=== PATIENT | male | born 1940 | race Hispanic/Latino ===

== ENCOUNTER 2017-12-14 18:08 | Inpatient (IN) | payer OTHER ==
[2017-12-14 20:21] LABS: Absolute Lymphocytes (CBC) 0.9 K/uL (0.7-4.9); Absolute Monocytes 0.6 K/uL (0.1-1.3); Basophils % 0.5 % (0-1.3); Eosinophils % 1.4 % (0-4.4); Hematocrit 28.5 % (39.6-49.0); Lymphocytes % 11.4 % (15.3-44.8); MCH 32.2 pg (27.0-35.0); MCV 94.4 fL (80-100); MPV 9.8 fL (7.6-11.3); Monocytes % 7.3 % (3.3-12.3); RBC Red Blood Cell Count 3.02 M/uL (4.33-5.43)
--- NOTE | 2017-12-14 20:25 | RAD REPORT ---
EXAM DESCRIPTION: RAD - Chest Single View - 12/14/2017 8:18 pm CLINICAL HISTORY: Shortness of breath. COMPARISON: 07/17/2017 FINDINGS: Portable technique limits examination quality. Mild interstitial pulmonary edema is seen. Small left pleural effusion is seen. The heart is mildly e nlarged with sternotomy wires present. No displaced fractures. IMPRESSION: Mild CHF.
[2017-12-14 20:31] LABS: Potassium 4.5 mEq/L (3.6-5.0)
[2017-12-14 20:37] LABS: Albumin 3.5 g/dL (3.2-5.5); Bilirubin Direct 0.1 mg/dL (0-0.2); Bilirubin Total 0.4 mg/dL (0.3-1.2); Protein, Total 7.3 g/dL (6.0-8.3)
[2017-12-14 20:38] LABS: Protime INR 1.08
--- NOTE | 2017-12-14 20:47 | ER ---
Nurse's Notes [facility] Name: Blaise Quarles Age: 77 yrs Sex: Male : 1940 Arrival Date: 12/14/2017 Time: 18:11 Bed 5 Private MD: out of town, doctor Diagnosis: Chronic diastolic (congestive) heart failure;Pleural effusion, not elsewhere classified Presentation: 12/14 18:18 Presenting complaint: Patient states: LUQ pain and left-sided chest pain that began 1 aa5 week ago. Pt also reports SOB. Pt states "last time I had this they found fluid in my lungs and they had to drain it". Transition of care: patient was not received from another setting of care. Onset of symptoms was December 2017. Risk Assessment: Do you want to hurt yourself or someone else? Patient reports no desire to harm self or others. Initial Sepsis Screen: Does the patient meet any 2 criteria? No. Patient's initial sepsis screen is negative. Does the patient have a suspected source of infection? No. Patient's initial sepsis screen is negative. Care prior to arrival: None. 18:18 Method Of Arrival: Wheelchair aa5 18:18 Acuity: SARATH 3 aa5 Historical: - Allergies: 18:18 No Known Allergies; aa5 - Home Meds: 21:09 amlodipine 10 mg tab 1 tab once daily [Active]; aspirin 81 mg Oral TbEC 1 tab once lp1 daily [Active]; atorvastatin 40 mg Oral tab 1 tab once daily [Active]; glipizide 10 mg Oral tab [Active]; Levemir 100 unit/mL subcutaneous soln [Active]; metoprolol tartrate 25 mg Oral tab 1 tab 2 times per day [Active]; tramadol 50 mg Oral tab [Active]; - PMHx: 18:18 Anemia; CAD; chronic renal disease; Diabetes - IDDM; Hypertension; Myocardial aa5 infarction; pulmonary nodule; - PSHx: 18:18 Triple Bypass; aa5 - Immunization history:: Adult Immunizations unknown. - Social history:: Smoking status: Patient/guardian denies using tobacco. - Ebola Screening: : No symptoms or risks identified at this time. Screenin:43 Abuse screen: Denies threats or abuse. Denies injuries from another. Nutritional lp1 screening: No deficits noted. Tuberculosis screening: No symptoms or risk factors identified. Fall Risk Total Parson Fall Scale indicates High Risk Score (45 or more points). Fall prevention measures have been instituted. Side Rails Up X 2 Family Present and informed to notify staff if the need to leave the bedside As available patient and family educated on Fall Prevention Program and Strategies. Assessment: 19:40 General: Appears uncomfortable, Behavior is appropriate for age. Pain: Complains of lp1 pain in chest and abdomen Pain currently is 6 out of 10 on a pain scale. Quality of pain is described as pressure. Neuro: Level of Consciousness is awake, alert, obeys commands, Oriented to person, place, situation. Cardiovascular: Reports chest pain, shortness of breath, Patient's skin is warm and dry. Edema pitting to left ankle, left foot, left toes, right ankle, right foot and right toes Rhythm is irregular. Respiratory: Reports shortness of breath When laying flat Airway is patent Trachea midline Respiratory effort is even, Respiratory pattern is regular, Breath sounds are diminished bilaterally. Onset: The symptoms/episode began/occurred gradually, the patient has moderate shortness of breath. GI: Abdomen is distended, Bowel sounds present X 4 quads. Abdomen is tender to palpation X 4 quads. Reports bloating. : No signs and/or symptoms were reported regarding the genitourinary system. EENT: No signs and/or symptoms were reported regarding the EENT system. Derm: Skin is fragile, is thin, Skin is dry, Skin is pink, warm \\T\\ dry. Musculoskeletal: Circulation, motion, and sensation intact. 20:45 Reassessment: Patient appears in no apparent distress at this time. Patient and/or lp1 family updated on plan of care and expected duration. Pain level reassessed. Patient is alert, oriented x 3, equal unlabored respirations, skin warm/dry/pink. Family at bedside, aware of pending admission; Dr. Vasquez at bedside to discuss results. 21:30 Reassessment: Patient appears in no apparent distress at this time. No changes from lp1 previously documented assessment. Patient and/or family updated on plan of care and expected duration. Pain level reassessed. 22:30 Reassessment: Patient states frustration at this time, states would like to go home; lp1 Patient educated on going home against medical advice, informed of plan for CT scan of abdomen; patient states okay. 23:30 Reassessment: Patient appears in no apparent distress at this time. Patient and/or lp1 family updated on plan of care and expected duration. Pain level reassessed. Patient resting, eyes closed, respirations unlabored. 12/15 00:45 Reassessment: Patient states begin hungry, requesting something to eat; Patient lp1 informed of waiting on CT results prior to giving anything PO. 01:30 Reassessment: Patient appears in no apparent distress at this time. Patient and/or lp1 family updated on plan of care and expected duration. Pain level reassessed. Patient updated on POC, and results from CT per Dr. Vasquez. Vital Signs: 12/14 18:19 BP 161 / 78; Pulse 66; Resp 18 S; Temp 98.2(TE); Pulse Ox 97% on R/A; Pain 10/10; aa5 19:45 BP 175 / 76; Pulse 93; Resp 22; Pulse Ox 97% on R/A; lp1 20:00 BP 179 / 76; Pulse 93; Resp 20; Pulse Ox 94% on R/A; lp1 20:30 BP 184 / 72; Pulse 94; Resp 22; Pulse Ox 97% on R/A; lp1 21:00 BP 187 / 75; Pulse 91; Resp 21; Pulse Ox 96% on R/A; lp1 21:30 BP 188 / 80; Pulse 92; Resp 22; Pulse Ox 96% on R/A; lp1 22:47 BP 156 / 70; Pulse 86; Resp 16; Pulse Ox 94% on R/A; lp1 12/15 00:00 BP 154 / 71; Pulse 77; Resp 15; Pulse Ox 93% on R/A; lp1 00:30 BP 172 / 67; Pulse 92; Resp 19; Pulse Ox 93% on R/A; lp1 01:30 BP 155 / 87; Pulse 74; Resp 16; Temp 99.7(O); Pulse Ox 95% on R/A; lp1 ED Course: 12/14 18:11 Patient arrived in ED. mr 18:11 out of town, doctor is Private Physician. mr 18:18 Arm band placed on. aa5 18:19 Triage completed. aa5 18:25 EKG completed in triage. Results shown to MD. aa5 19:20 Gilbert Vasquez MD is Attending Physician. tw4 19:33 Inserted saline lock: 20 gauge in right forearm, using aseptic technique. Blood lp1 collected. 19:40 Patt Castellano RN is Primary Nurse. lp1 19:43 Patient has correct armband on for positive identification. Placed in gown. Bed in low lp1 position. Call light in reach. teletypesetter monitor on. Pulse ox on. NIBP on. 20:17 X-ray completed. Portable x-ray completed in exam room. Patient tolerated procedure kc2 well. 20:18 XRAY Chest (1 view) In Process Unspecified. EDMS 20:47 Ankur Espinoza MD is Hospitalizing Provider. tw4 21:13 No provider procedures requiring assistance completed. Patient admitted, IV remains in lp1 place. 22:[address] cw1 22:41 CT completed. Patient tolerated procedure well. Patient moved back from CT. nj Administered Medications: 21:07 Drug: Lasix 40 mg Route: IVP; Site: right forearm; lp1 22:43 Follow up: Urine output 250 ml; Response: No adverse reaction lp1 22:30 Drug: Zofran 4 mg Route: IVP; Site: right forearm; lp1 23:30 Follow up: Response: No adverse reaction lp1 22:30 Drug: morphine 2 mg Route: IVP; Site: right forearm; lp1 23:30 Follow up: Response: Pain is decreased lp1 0605 01:10 Drug: Zosyn 2.25 grams Route: IVPB; Infused Over: 60 mins; Site: right forearm; lp1 01:52 Follow up: IV Status: Completed infusion lp1 01:25 Drug: Flagyl 500 mg Volume: 100 ml; Route: IVPB; Rate: 200 ml/hr; Infused Over: 30 lp1 mins; Site: right forearm; 01:52 Follow up: IV Status: Infusion continued upon admission lp1 01:35 Drug: D50W 50 ml Route: IVP; Site: right forearm; lp1 01:52 Follow up: Response: Blood sugar is elevated lp1 Point of Care Testing: Blood Glucose: 01:26 Blood Glucose: 59 mg/dL; lp1 01:51 Blood Glucose: 202 mg/dL; lp1 Ranges: Output: 12/14 22:43 Urine: 250ml; Total: 250ml. lp1 22:44 Urine: 250ml (Voided); Total: 500ml. lp1 Outcome: 20:47 Decision to Hospitalize by Provider. tw4 21:13 Condition: stable lp1 21:13 Instructed on the need for admit. 12/15 01:51 Admitted to Tele accompanied by nurse, via wheelchair, room 410, with chart, Report lp1 called to Mariah Rodriges. 01:54 Patient left the ED. lp1 Signatures: Dispatcher [employer] EDKeara Johnston mr HerculesNataly, RN RN aa5 Judy Child cw1 Patt Castellano RN RN lp1 Molly Nicole kc2 Fran Sweeney Terrence, MD MD tw4 Corrections: (The following items were deleted from the chart) 12/14 19:44 19:40 Cardiovascular: Patient's skin is warm and dry. Edema pitting to left ankle, left lp1 foot, left toes, right ankle, right foot and right toes lp1 19:44 19:40 Respiratory: Reports shortness of breath When laying flat Airway is patent lp1 Trachea midline Respiratory effort is even, Respiratory pattern is regular, Breath sounds are diminished bilaterally. the patient has moderate shortness of breath lp1 21:10 19:40 Cardiovascular: Reports chest pain, shortness of breath, Patient's skin is warm lp1 and dry. Edema pitting to left ankle, left foot, left toes, right ankle, right foot and right toes lp1
--- NOTE | 2017-12-14 20:47 | EDPHYS ---
Physician Documentation [facility] Name: Blaise Quarles Age: 77 yrs Sex: Male : 1940 Arrival Date: 12/14/2017 Time: 18:11 Bed 5 Private MD: out of town, doctor ED Physician Gilbert Vasquez HPI: 12/15 02:25 This 77 yrs old Male presents to ER via Wheelchair with complaints of tw4 Breathing Difficulty, Chest Pain. 02:25 The patient has shortness of breath at rest. Onset: The symptoms/episode began/occurred tw4 last week. Duration: The symptoms are continuous, and are unchanged since they started. The patient's shortness of breath is aggravated by exertion. Associated signs and symptoms: Pertinent positives: chest pain. Severity of symptoms: At their worst the symptoms were moderate in the emergency department the symptoms are unchanged. The patient has not experienced similar symptoms in the past. Historical: - Allergies: 12/14 18:18 No Known Allergies; aa5 - Home Meds: 21:09 amlodipine 10 mg tab 1 tab once daily [Active]; aspirin 81 mg Oral TbEC 1 tab once lp1 daily [Active]; atorvastatin 40 mg Oral tab 1 tab once daily [Active]; glipizide 10 mg Oral tab [Active]; Levemir 100 unit/mL subcutaneous soln [Active]; metoprolol tartrate 25 mg Oral tab 1 tab 2 times per day [Active]; tramadol 50 mg Oral tab [Active]; - PMHx: 18:18 Anemia; CAD; chronic renal disease; Diabetes - IDDM; Hypertension; Myocardial aa5 infarction; pulmonary nodule; - PSHx: 18:18 Triple Bypass; aa5 - Immunization history:: Adult Immunizations unknown. - Social history:: Smoking status: Patient/guardian denies using tobacco. - Ebola Screening: : No symptoms or risks identified at this time. ROS: 12/15 02:25 Constitutional: Negative for fever, chills, and weight loss, Abdomen/GI: Negative for tw4 abdominal pain, nausea, vomiting, diarrhea, and constipation, Back: Negative for injury and pain, MS/Extremity: Negative for injury and deformity, Skin: Negative for injury, rash, and discoloration, Neuro: Negative for headache, weakness, numbness, tingling, and seizure. Cardiovascular: Positive for chest pain, Negative for edema, orthopnea, palpitations. Respiratory: Positive for cough, orthopnea, pleurisy, shortness of breath. Exam: 02:25 Constitutional: This is a well developed, well nourished patient who is awake, alert, tw4 and in no acute distress. Head/Face: Normocephalic, atraumatic. Chest/axilla: Normal chest wall appearance and motion. Nontender with no deformity. No lesions are appreciated. Cardiovascular: Regular rate and rhythm with a normal S1 and S2. No gallops, murmurs, or rubs. Normal PMI, no JVD. No pulse deficits. Abdomen/GI: Soft, non-tender, with normal bowel sounds. No distension or tympany. No guarding or rebound. No evidence of tenderness throughout. Back: No spinal tenderness. No costovertebral tenderness. Full range of motion. Skin: Warm, dry with normal turgor. Normal color with no rashes, no lesions, and no evidence of cellulitis. MS/ Extremity: Pulses equal, no cyanosis. Neurovascular intact. Full, normal range of motion. Vital Signs: 12/14 18:19 BP 161 / 78; Pulse 66; Resp 18 S; Temp 98.2(TE); Pulse Ox 97% on R/A; Pain 10/10; aa5 19:45 BP 175 / 76; Pulse 93; Resp 22; Pulse Ox 97% on R/A; lp1 20:00 BP 179 / 76; Pulse 93; Resp 20; Pulse Ox 94% on R/A; lp1 20:30 BP 184 / 72; Pulse 94; Resp 22; Pulse Ox 97% on R/A; lp1 21:00 BP 187 / 75; Pulse 91; Resp 21; Pulse Ox 96% on R/A; lp1 21:30 BP 188 / 80; Pulse 92; Resp 22; Pulse Ox 96% on R/A; lp1 22:47 BP 156 / 70; Pulse 86; Resp 16; Pulse Ox 94% on R/A; lp1 06/05 00:00 BP 154 / 71; Pulse 77; Resp 15; Pulse Ox 93% on R/A; lp1 00:30 BP 172 / 67; Pulse 92; Resp 19; Pulse Ox 93% on R/A; lp1 01:30 BP 155 / 87; Pulse 74; Resp 16; Temp 99.7(O); Pulse Ox 95% on R/A; lp1 MDM: 12/14 19:20 Patient medically screened. tw12/15 02:33 Differential diagnosis: CHF exacerbation, Chronic Obstructive Pulmonary Disease tw4 Myocardial Infarction pneumonia, pulmonary edema, Pulmonary Embolism reactive airway disease. Data reviewed: vital signs, nurses notes. Data interpreted: Pulse oximetry: Interpretation:. Test interpretation: by ED physician or midlevel provider: ECG. Counseling: I had a detailed discussion with the patient and/or guardian regarding: the historical points, exam findings, and any diagnostic results supporting the discharge/admit diagnosis. Physician consultation: Ankur Espinoza MD regarding patient's condition, and will see patient. Admission orders: after a detailed discussion of the patient's condition and case, the admit orders are written by me. 12/14 19:56 Order name: Basic Metabolic Panel; Complete Time: 22:20 1 12/14 22:20 Interpretation: CO2 17; BUN 75; CRE 4.37; GFR 13. [facility] 12/14 19:56 Order name: BNP; Complete Time: 22:20 1 12/14 19:56 Order name: CBC with Diff; Complete Time: 20:28 1 12/14 19:56 Order name: Ckmb; Complete Time: 22:20 1 12/14 22:21 Interpretation: Normal except: CKMB 11.7. 12/14 19:56 Order name: CPK; Complete Time: 22:20 1 12/14 19:56 Order name: LFT's; Complete Time: 22:20 1 12/15 00:57 Interpretation: Abnormal: GLOB 3.8; A/G 0.9. 4 12/14 19:56 Order name: Magnesium; Complete Time: 22:20 1 12/14 19:56 Order name: PT-INR; Complete Time: 22:20 1 12/14 19:56 Order name: Ptt, Activated; Complete Time: 22:20 [facility] 12/14 19:56 Order name: Troponin (emerg Dept Use Only); Complete Time: 22:20 1 12/14 20:30 Order name: AMMONIA; Complete Time: 22:20 [facility] 12/14 21:30 Order name: BNP B-Type Natriuretic Peptide [facility] 12/14 21:30 Order name: BNP B-Type Natriuretic Peptide EDMS 12/14 21:30 Order name: CBC with Automated Diff EDMS 12/14 19:56 Order name: XRAY Chest (1 view); Complete Time: 20:28 lp1 12/14 21:30 Order name: Echo with Doppler EDMS 12/14 21:30 Order name: Echo with Doppler EDMS 12/14 21:30 Order name: CBC with Automated Diff EDMS 12/14 21:30 Order name: Comprehensive Metabolic Panel EDMS 12/14 21:30 Order name: Comprehensive Metabolic Panel EDMS 12/14 21:30 Order name: Magnesium EDMS 12/14 21:30 Order name: Magnesium EDMS 12/14 21:30 Order name: Phosphorus EDMS 12/14 21:30 Order name: Phosphorus EDMS 12/14 21:30 Order name: Urinalysis EDMS 12/14 21:30 Order name: Urinalysis EDMS 12/14 22:23 Order name: CT Abd/Pelvis - Without Cont tw4 12/14 22:39 Order name: Urine Dipstick--Ancillary (enter results) rg2 12/14 23:02 Order name: Urine Dipstick-Ancillary; Complete Time: 00:57 EDMS 12/14 19:56 Order name: EKG; Complete Time: 19:57 lp1 12/14 19:56 Order name: Cardiac monitoring; Complete Time: 20:48 lp1 12/14 19:56 Order name: EKG - Nurse/Tech; Complete Time: 20:48 lp1 12/14 19:56 Order name: IV Saline Lock; Complete Time: 20:48 lp1 12/14 19:56 Order name: Labs collected and sent; Complete Time: 20:48 lp1 12/14 19:56 Order name: O2 Per Protocol; Complete Time: 20:48 lp1 12/14 19:56 Order name: O2 Sat Monitoring; Complete Time: 20:48 lp1 12/14 19:56 Order name: Urine Dipstick-Ancillary (obtain specimen); Complete Time: 22:48 lp1 12/14 21:30 Order name: CONS Physician Consult EDMS 12/14 21:30 Order name: Heart Healthy EDMS 12/14 21:30 Order name: Renal EDMS Administered Medications: 12/14 21:07 Drug: Lasix 40 mg Route: IVP; Site: right forearm; lp1 22:43 Follow up: Urine output 250 ml; Response: No adverse reaction lp1 22:30 Drug: Zofran 4 mg Route: IVP; Site: right forearm; lp1 23:30 Follow up: Response: No adverse reaction lp1 22:30 Drug: morphine 2 mg Route: IVP; Site: right forearm; lp1 23:30 Follow up: Response: Pain is decreased lp1 12/15 01:10 Drug: Zosyn 2.25 grams Route: IVPB; Infused Over: 60 mins; Site: right forearm; lp1 01:52 Follow up: IV Status: Completed infusion lp1 01:25 Drug: Flagyl 500 mg Volume: 100 ml; Route: IVPB; Rate: 200 ml/hr; Infused Over: 30 lp1 mins; Site: right forearm; :52 Follow up: IV Status: Infusion continued upon admission lp1 01:35 Drug: D50W 50 ml Route: IVP; Site: right forearm; lp1 01:52 Follow up: Response: Blood sugar is elevated lp1 Point of Care Testing: Blood Glucose: 01:26 Blood Glucose: 59 mg/dL; lp1 01:51 Blood Glucose: 202 mg/dL; lp1 Ranges: Critical Glucose Levels:Adult <50 mg/dl or >400 mg/dl <40 mg/dl or >180 mg/dl Disposition: 12/14/17 20:47 Hospitalization ordered by Ankur Espinoza for Inpatient Admission. Preliminary diagnosis are Chronic diastolic (congestive) heart failure, Pleural effusion, not elsewhere classified. - Bed requested for Telemetry/MedSurg (Inpatient). - Status is Inpatient Admission. lp1 - Condition is Stable. - Problem is an ongoing problem. - Symptoms are unchanged. UTI on Admission? No Signatures: Dispatcher [employer] EDMariaa Ramos RN RN kl Calderon, Audri, RN RN aa5 Patt Castellano RN RN lp1 Gilbert Vasquez MD MD tw4 Corrections: (The following items were deleted from the chart) 12/14 22:36 20:47 Hospitalization Ordered by Ankur Espinoza MD for Inpatient Admission. Preliminary kl diagnosis is Chronic diastolic (congestive) heart failure; Pleural effusion, not elsewhere classified. Bed requested for Telemetry/MedSurg (Inpatient). Status is Inpatient Admission. Condition is Stable. Problem is an ongoing problem. Symptoms are unchanged. UTI on Admission? No. tw4 12/15 00:57 00:57 Normal except: GLOB 3.8; A/G 0.9. tw4 tw4 01:54 12/14 22:36 12/14/2017 20:47 Hospitalization Ordered by Ankur Espinoza MD for Inpatient lp1 Admission. Preliminary diagnosis is Chronic diastolic (congestive) heart failure; Pleural effusion, not elsewhere classified. Bed requested for Telemetry/MedSurg (Inpatient). Status is Inpatient Admission. Condition is Stable. Problem is an ongoing problem. Symptoms are unchanged. UTI on Admission? No. kl
[2017-12-14] MEDS ORDERED: FUROSEMIDE 40 MG/4 ML VIAL ONE (20:54)
[2017-12-14 21:10] LABS: CKMB Creatine Kinase MB 11.7 ng/ml (0.3-4.0)
[2017-12-14] MEDS ORDERED: ACETAMINOPHEN 500 MG TAB PO PRN (21:25)
[2017-12-14] MEDS ORDERED: MAGNESIUM HYDROXIDE 8% 30 ML PO PRN (21:25)
[2017-12-14] MEDS ORDERED: ONDANSETRON 4 MG/2 ML VIAL IV PRN (21:25)
[2017-12-14] MEDS ORDERED: ONDANSETRON 4 MG/2 ML VIAL ONE (22:24)
[2017-12-14] MEDS ORDERED: Morphine 2 MG/2 ML SYR ONE (22:24)
[2017-12-14 23:01] LABS: Urine Blood 1+ (NEG); Urine Glucose TRACE (NEG); Urine Protein 3+ (NEG); Urine pH 5.5 (5.0-7.0)
[2017-12-15] MEDS ORDERED: PIPER/TAZO/NS 2.25gm 2.25 GM/50 ML BAG ONE (01:04)
[2017-12-15] MEDS ORDERED: METRONIDAZOLE 500mg IVPB 500 MG/100 ML BAG IV ONE (01:04)
[2017-12-15] MEDS ORDERED: D50W 25 GM/50 ML SYRINGE IV ONE (01:30)
[2017-12-15 02:08] VITALS: TEMP 99.7
[2017-12-15] MEDS ORDERED: MORPHINE 2 MG/ML SYR IV PRN (03:11)
[2017-12-15 05:43] VITALS: BMI 25.7
[2017-12-15] MEDS ORDERED: Morphine 2 MG/2 ML SYR IV PRN (07:30)
[2017-12-15] MEDS ORDERED: PNEUMOCOCCAL VACCINE 0.5 ML IMVAC ONE (08:00)
--- NOTE | 2017-12-15 08:31 | RAD REPORT ---
EXAM DESCRIPTION: CT - Abdomen Pelvis Wo Contrast - 12/15/2017 6:15 am CLINICAL HISTORY: Abdominal pain. Left upper quadrant pain. COMPARISON: 07/03/2017, 05/30/2012 TECHNIQUE: CT imaging of the abdomen and pelvis was performed without contrast. Solid organ, bowel a nd vascular assessment is limited due to lack of IV and oral contrast. All CT scans are performed using dose optimization technique as appropriate and may include automated exposure control or mA/KV adjustment according to patient size. FINDINGS: Linear opacities are present in the left lung base posteriorly, likely representing subseg mental atelectasis or developing pneumonia. Moderate bilateral pleural effusions are seen. The liver, spleen, pancreas, adrenal glands and kidneys are within normal limits for a limited non-co ntrast examination.Mild gallbladder wall thickening is suspected. No bowel obstruction, free air, intra-abdominal free fluid or abscess. Prominent colonic diverticulos is is seen without diverticulitis. The appendix is normal. Aortic atherosclerosis. The osseous structures are within normal limits.Trace free fluid is seen in the pelvis. IMPRESSION: Mild gallbladder wall thickening noted, raising possibility of acute cholecystitis. Advi se gallbladder sonography followup. Prominent sigmoid diverticulosis coli without diverticulitis. Bilateral pleural effusions with atelectasis versus infiltrate in the left lung base. A limited non-contrast examination was performed as detailed.
--- NOTE | 2017-12-15 08:53 | P.HP ---
Certification for Inpatient Patient admitted to: Inpatient With expected LOS: >2 Midnights Patient will require the following post-hospital care: None Practitioner: I am a practitioner with admitting privileges, knowledge of patient current condition, hospital course, and medical plan of care. Services: Services provided to patient in accordance with Admission requirements found in Title 42 Section 412.3 of the Code of Federal Regulations Patient History Date of Service: 12/14/17 Reason for admission: volume overload; ascites; abdominal pain History of Present Illness: Patient is a 77-year-old gentleman who came into the hospital with abdominal discomfort and shortness of breath. Patient has been in the hospital for a prolonged period earlier this year. At that time he was diagnosed with pneumonia. He was also found to have proteinuria and Nephrology was consulted. It was discussed with patient regarding hemodialysis but the family and the patient did not want to proceed. Patient's renal function has continued to decline. 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 Patient continues to have protein urea and came in with diffuse anasarca. Patient has some abdominal tenderness as well. Pain is worse in the right upper quadrant. Patient does have some rebound but no guarding. Patient's CT reveals some gallbladder wall distension which could be related to patient's ascites. Patient also has some questionable findings of enteritis. At this time patient will be admitted to the hospital. Patient may need further surgical intervention and at this time will consult surgery and Cardiology in case patient needs cardiac clearance for surgery. Patient losses need to see Nephrology as patient continues to have worsening proteinuria and worsening renal function. We may need to reinsert ane the idea of hemodialysis as patients renal function and uremia has worsened. Allergies No Known Drug Allergies Allergy (Verified 07/11/17 23:23) Unknown No Known Allergies Allergy (Uncoded 12/15/17 01:57) Unknown Home Medications: Atorvastatin Calcium [Lipitor] 10 mg PO BEDTIME 12/15/17 Docusate [Colace Cap] 100 mg PO DAILY 12/15/17 Enalapril [Vasotec] 10 mg PO DAILY 12/15/17 Furosemide [Lasix] 20 mg PO DAILY 12/15/17 Glipizide [Glipizide ER] 10 mg PO BIDWM 12/15/17 Metoprolol Succinate [Toprol Xl] 50 mg PO DAILY 12/15/17 - Past Medical/Surgical History Diabetic: Yes -: Hypertension -: Coronary disease -: Diabetes mellitus type 2 -: Hyperlipidemia -: Chronic renal disease -: History of bilateral pleural effusion -: Anemia of chronic disease -: Anemia of chronic disease -: [place] -: PULMONARY NODULE -: SHORTNESS OF BREATH -: Repair of left finger fracture -: CABG maybe three Psychosocial/ Personal History: He is 56 years, has 13 children, he does not work. - Family History Father Medical History: GI disease Notes: none per pt - Social History Smoking Status: Former smoker Alcohol use: No CD- Drugs: No Caffeine use: Yes Place of Residence: Home Review of Systems 10-point ROS is otherwise unremarkable Physical Examination - Vital Signs Temperature: 99.7 F Blood Pressure: 155/87 Pulse: 74 Respirations: 16 Pulse Ox (%): 94 - Physical Exam General: Alert, In no apparent distress, Oriented x3 HEENT: Atraumatic, PERRLA, Mucous membr. moist/pink, EOMI, Sclerae nonicteric Neck: Supple, 2+ carotid pulse no bruit, No LAD, Without JVD or thyroid abnormality, JVD distended Respiratory: Crackles/rales Cardiovascular: Regular rate/rhythm, Normal S1 S2, Systolic murmur Gastrointestinal: Normal bowel sounds, Soft and benign, Non-distended, No tenderness, No rebound, No guarding Musculoskeletal: No clubbing, No tenderness, Swelling Integumentary: No rashes Neurological: Normal gait, Normal speech, Normal strength at 5/5 x4 extr, Normal tone, Sensation intact, Cranial nerves 3-12 intact, Normal affect Lymphatics: No axilla or inguinal lymphadenopathy - Studies Laboratory Data (last 24 hrs) 12/14/17 19:33: PT 12.8 H, INR 1.08, APTT 29.1 12/14/17 19:33: WBC 7.6, Hgb 9.7 L, Hct 28.5 L, Plt Count 191 12/14/17 19:33: B-Natriuretic Peptide 2063 H 12/14/17 19:33: Sodium 136, Potassium 4.5, BUN 75 H, Creatinine 4.37 H, Glucose 113, Magnesium 2.0, Total Bilirubin 0.4, AST 15, ALT 22, Alkaline Phosphatase 84 Assessment & Plan - Problems (Diagnosis) (1) Ascites Current Visit: Yes Status: Acute (2) Thickening of wall of gallbladder with pericholecystic fluid Current Visit: Yes Status: Acute (3) Enteritis Current Visit: Yes Status: Acute (4) Acute on chronic kidney failure Current Visit: No Status: Acute (5) Pleural effusion Current Visit: No Status: Acute (6) Aortic stenosis Current Visit: No Status: Chronic (7) CHF (congestive heart failure) Onset Date: 07/28/16 Current Visit: No Status: Chronic Qualifiers: Qualified Code(s): I50.33 - Acute on chronic diastolic (congestive) heart failure (8) Coronary artery disease Onset Date: 07/15/17 Current Visit: No Status: Chronic Qualifiers: Coronary Disease-Associated Artery/Lesion type: bypass graft [place] vs. transplanted heart: [place] heart Associated angina: with unspecified angina Qualified Code(s): I25.709 - Atherosclerosis of coronary artery bypass graft(s) , unspecified, with unspecified angina pectoris (9) Diabetes mellitus Onset Date: 07/15/17 Current Visit: No Status: Chronic Qualifiers: Diabetes mellitus type: type 2 Diabetes mellitus terminal manager insulin use: unspecified jail insulin use status Diabetes mellitus complication status : with other specified complication Qualified Code(s): E11.69 - Type 2 diabetes mellitus with other specified complication (10) Hypertension Onset Date: 02/21/16 Current Visit: No Status: Chronic Qualifiers: Hypertension type: essential hypertension Qualified Code(s): I10 - Essential (primary) hypertension (11) Status post coronary artery bypass graft Onset Date: 07/15/17 Current Visit: No Status: Chronic (12) Shortness of breath Onset Date: 02/21/16 Current Visit: No Status: Resolved (13) Proteinuria Current Visit: Yes Status: Acute - Plan Plan: 1. Gentle diuresis 2. Echocardiogram 3. Renal ultrasound 4. Nephrology consultation 5. General surgery evaluation and cardiology consultation for cardiac clearance. Patient with right upper quadrant tenderness and rebound tenderness. Patient may have cholecystitis although with the ascites it is difficult to diagnose just on imaging. 6. Pain control 7. Strict BP control 8. Strict BS control 9. GI/DVT prophylaxis Discharge Plan: Home Plan to discharge in: 24 Hours - Advance Directives Does patient have a Living Will: No Does patient have a Durable POA for Healthcare: No - Code Status/Comfort Care Code Status Assessed: Yes Code Status: Full Code Critical Care: No Time Spent Managing PTS Care (In Minutes): 50
[2017-12-15] MEDS ORDERED: ENOXAPARIN 30 MG/0.3 ML SQ SCH (09:00)
[2017-12-15] MEDS ORDERED: METOPROLOL XL 50 MG TAB PO SCH (09:00)
[2017-12-15] MEDS ORDERED: FUROSEMIDE 40 MG/4 ML VIAL IV SCH (09:00)
[2017-12-15 09:03] LABS: Absolute Monocytes 0.5 K/uL (0.1-1.3); Basophils % 0.7 % (0-1.3); Hematocrit 27.2 % (39.6-49.0); MCH 32.2 pg (27.0-35.0); MCV 95.3 fL (80-100); MPV 8.7 fL (7.6-11.3); Monocytes % 7.8 % (3.3-12.3); RBC Red Blood Cell Count 2.86 M/uL (4.33-5.43)
[2017-12-15 09:39] LABS: Albumin 3.1 g/dL (3.2-5.5); Bilirubin Total 0.5 mg/dL (0.3-1.2); Magnesium 1.9 mg/dL (1.8-2.5); Phosphorus 6.3 mg/dL (2.5-4.3); Potassium 3.8 mEq/L (3.6-5.0); Protein, Total 6.3 g/dL (6.0-8.3)
[2017-12-15 10:15] VITALS: O2SAT 97
--- NOTE | 2017-12-15 12:05 | P.PN ---
Subjective Date of Service: 12/15/17 Chief Complaint: volume overload; ascites; abdominal pain Patient seen and examined at bedside with RN. Case discussed with cardiology, GI, nephrology. Currently awaiting GI and Nephrology recommendations. Patient is currently complaining of being hungry and states that he would leave the hospital if he is not allowed to eat here in the hospital. Patient was educated extensively on the need for GI to evaluate the patient for possibility of acute cholecystitis on the abdominal CT and the need for liver ultrasound to rule it out. Patient at this time demonstrated understanding however states that he does not know how long he can hold off and would like to eat. Review of Systems General: As per HPI Physical Examination - Vital Signs Temperature: 99.7 F Blood Pressure: 155/87 Pulse: 74 Respirations: 16 Pulse Ox (%): 94 - Physical Exam General: Alert, In no apparent distress HEENT: Atraumatic Neck: Supple, JVD not distended Respiratory: Clear to auscultation bilaterally, Normal air movement Cardiovascular: Regular rate/rhythm, Normal S1 S2 Gastrointestinal: Normal bowel sounds, Soft and benign, Distended, Tenderness ( RUQ pain) Musculoskeletal: No tenderness, Swelling (2+ BL LE) Integumentary: No rashes Neurological: Normal speech, Normal tone, Normal affect Lymphatics: No axilla or inguinal lymphadenopathy - Studies Laboratory Data (last 24 hrs) 12/14/17 19:33: PT 12.8 H, INR 1.08, APTT 29.1 12/14/17 19:33: WBC 7.6, Hgb 9.7 L, Hct 28.5 L, Plt Count 191 12/14/17 19:33: B-Natriuretic Peptide 2063 H 12/14/17 19:33: Sodium 136, Potassium 4.5, BUN 75 H, Creatinine 4.37 H, Glucose 113, Magnesium 2.0, Total Bilirubin 0.4, AST 15, ALT 22, Alkaline Phosphatase 84 Medications List Reviewed: Yes Assessment & Plan - Problems (Diagnosis) (1) Acute cholecystitis Current Visit: Yes Status: Suspected Plan: Ct abd with Possiblity of Acute Cholecystitis. Pt with RUQ pain and Nausea -Liver US pending -GI consulted. Awaiting reccs -Surgery if Liver US + -NPO for now. Caution with IV fluids due to volume Overload (2) Acute on chronic kidney failure Current Visit: No Status: Acute Plan: Acute on CKD with Proteinuria and volume overload. -Generalized Anasarca -Nephrology consulted. -Started On lasix 40mg BID and Metoprolol as well -Avoid Nephrotoxic agent and f/u with Reccs Qualifiers: Acute renal failure type: unspecified Chronic kidney disease stage: stage 3 (moderate) Qualified Code(s): N17.9 - Acute kidney failure, unspecified; N18.3 - Chronic kidney disease, stage 3 (moderate) (3) CHF (congestive heart failure) Onset Date: 07/28/16 Current Visit: No Status: Chronic Plan: H/o Diastolic Dysfunction. Last echo in 2018 with EF of 46% -On Lasix and BB for now -Cardiology consulted. Reccs appreciated Qualifiers: Qualified Code(s): I50.33 - Acute on chronic diastolic (congestive) heart failure (4) Coronary artery disease Onset Date: 07/15/17 Current Visit: No Status: Chronic Plan: CAD with CABG -Stable -Continue to monitor Qualifiers: Coronary Disease-Associated Artery/Lesion type: bypass graft [place] vs. transplanted heart: [place] heart Associated angina: with unspecified angina Qualified Code(s): I25.709 - Atherosclerosis of coronary artery bypass graft(s) , unspecified, with unspecified angina pectoris (5) Diabetes mellitus Onset Date: 07/15/17 Current Visit: No Status: Chronic Qualifiers: Diabetes mellitus type: type 2 Diabetes mellitus senior living insulin use: unspecified senior living insulin use status Diabetes mellitus complication status : with other specified complication Qualified Code(s): E11.69 - Type 2 diabetes mellitus with other specified complication (6) Hypertension Onset Date: 02/21/16 Current Visit: No Status: Chronic Qualifiers: Hypertension type: essential hypertension Qualified Code(s): I10 - Essential (primary) hypertension (7) Liver cirrhosis Current Visit: Yes Status: Chronic Qualifiers: Hepatic cirrhosis type: unspecified hepatic cirrhosis Ascites presence: with ascites Qualified Code(s): K74.60 - Unspecified cirrhosis of liver; R18.8 - Other ascites Discharge Plan: Home Plan to discharge in: 72 Hours - Code Status/Comfort Care Code Status Assessed: Yes Critical Care: No
--- NOTE | 2017-12-15 12:51 | RAD REPORT ---
EXAM DESCRIPTION: US - Abdomen Exam Limited - 12/15/2017 12:40 pm CLINICAL HISTORY: Abdominal pain. COMPARISON: December 14, 2017 cat scan FINDINGS: The gallbladder wall is mildly thickened measuring 4 millimeters. A couple of tiny gallsto kylah are suspected. The biliary tree is normal caliber. The biliary tree is normal caliber. IMPRESSION: Mild gallbladder wall thickening may indicate cholecystitis or be secondary to hypoalbum inemia. Couple of tiny gallstones are suspected
[2017-12-15 12:54] VITALS: BP 158/62
--- NOTE | 2017-12-15 13:42 | EKG ---
Test Date: 2017-12-15 Test Time: 01:14:20 Bundle Wrapper: URMILA MEASUREMENT RESULTS: Intervals: Rate: 98 WV: 160 QRSD: 94 QT: 378 QTc: 482 [place]: P: WV: 160 QRS: -30 T: 154 INTERPRETIVE STATEMENTS: Sinus bradycardia with marked sinus arrhythmia with frequent premature ventricular complexes Left axis deviation Left ventricular hypertrophy with repolarization abnormality Cannot rule out Septal infarct, age undetermined Inferior infarct, age undetermined Abnormal ECG Compared to ECG 12/14/2017 18:29:53 Left-axis deviation now present Accelerated junctional rhythm no longer present Fusion complex(es) no longer present Myocardial infarct finding still present Electronically Signed On 12-15-17 13:40:48 CDT by Brandon Pérez
--- NOTE | 2017-12-15 13:44 | EKG ---
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: LORENA MEASUREMENT RESULTS: Intervals: Rate: 100 UT: QRSD: 88 QT: 314 QTc: 405 [place]: P: UT: QRS: -28 T: 152 INTERPRETIVE STATEMENTS: sinus rhythm with premature ventricular complexes or fusion complexes Left ventricular hypertrophy with repolarization abnormality Cannot rule out Septal infarct, age undetermined Inferior infarct, age undetermined Abnormal ECG Compared to ECG 09/07/2017 15:31:54 Accelerated junctional rhythm now present Fusion complex(es) now present Ventricular premature complex(es) now present Left ventricular hypertrophy now present Early repolarization now present Electronically Signed On 12-15-17 13:41:47 CDT by Brandon Pérez
--- NOTE | 2017-12-15 23:55 | CON ---
Date of Consultation: 12/15/[address] Espinoza's service on 12/14/2017. I saw the patient on 12/15/2017. Reason For Consultation: Elevated troponin. History Of Present Illness: Mr. Quarles is a 77-year-old white [place] male who came in with midepigas tric, left upper quadrant, right upper quadrant pain; shortness of breath; and was found to have trop onin elevation; and I was consulted. He has a history of cirrhosis; end-stage renal disease, not on hemodialysis; hypertension; diabetes; CABG in October 2015; and pulmonary nodule. He had a CABG, but saranya russo is not following up with us at this point. Denies nausea, vomiting, diaphoresis, PND, orthopnea, p edal edema, palpitations, or syncope. He was found to have a creatinine of 4.37, troponin 0.15. A c hest x-ray showed mild CHF with small pleural effusion. At one point, he had a thoracentesis. He gómez d an echocardiogram in July of this year showing mild aortic stenosis and ejection fraction of 46% . His hemoglobin was 9.7. His troponin was 0.15. EKG showed PAC, he was mildly hypertensive. The patient had a temporal artery biopsy in September 2017. Allergies: NONE. Past Medical History: As stated above. Review of Systems: Negative. Social History: Negative. Family History: Negative. Medications: At home include aspirin, Norvasc, Lasix 80 b.i.d., labetalol, Protonix, and glipizide. Physical Examination: General: Atrial fibrillation with fairly rapid response when I saw him, but he was going in and out of sinus rhythm with PACs. HEENT: Negative. Vital Signs: He is afebrile. Neck: Supple with no bruit. Chest: Revealed some rales at both bases. Cardiac: Revealed a regular rhythm and rate with occasional ectopy. No gallops or rubs, but had a _ . Abdomen: Tender throughout, especially in the right upper quadrant. Extremities: Revealed no clubbing, cyanosis, or edema. Diagnostic Data: As stated earlier. Impression And Plan: 1. chronic cirrhosis exacerbation causing all his pain in the abdomen and midepigastric re gion. He is not being having a true chest pain. His creatinine elevation is probably responsible fo r the troponin elevation. 2.Congestive heart failure on chest x-ray, possibly acute on chronic diastolic congestive heart fail ure. 3.Mild aortic stenosis. 4.Small pleural effusion status post thoracentesis in the past. 5.Ejection fraction of 46%. 6.Coronary artery disease status post coronary artery bypass grafting, stable. 7.Abnormal EKGs with premature atrial contractions and occasional atrial fibrillation. 8.Anemia. 9.Status post temporal artery biopsy. Results are available to me at this point. 10.End-stage renal disease, but not on hemodialysis yet. 11.Hypertension. 12.Diabetes. 13.Pulmonary nodule. Workup unavailable to me at this point. I believe Mr. Quarles need to have significant diuresis with the Lasix as right now. I think another echocardiogram is reasonable. I do not think we are dealing with acute coronary syndrome. I think his aortic stenosis is fairly stable. We have to cut on the labetalol dose due to blood pres sure and maybe hopefully get rid of the PACs and the atrial fibrillation. He needs to have Renal con sultation. He may be close to getting dialysis, and the patient agrees. I think he needs to have gastrointestinal workup and evaluation by GI that had been consulted. I will follow e patient along. DEYSI/EB Voice ID: [id number] Report ID: [id number]
--- NOTE | 2017-12-24 13:05 | P.SSS ---
Patient History Date of Service: 12/24/17 Reason for admission: volume overload; ascites; abdominal pain History of Present Illness: See HPI Allergies No Known Drug Allergies Allergy (Verified 07/11/17 23:23) Unknown No Known Allergies Allergy (Uncoded 12/15/17 01:57) Unknown Home Medications: Atorvastatin Calcium [Lipitor] 10 mg PO BEDTIME 12/15/17 Docusate [Colace Cap] 100 mg PO DAILY 12/15/17 Enalapril [Vasotec] 10 mg PO DAILY 12/15/17 Furosemide [Lasix] 20 mg PO DAILY 12/15/17 Glipizide [Glipizide ER] 10 mg PO BIDWM 12/15/17 Metoprolol Succinate [Toprol Xl] 50 mg PO DAILY 12/15/17 - Past Medical/Surgical History Diabetic: Yes -: Hypertension -: Coronary disease -: Diabetes mellitus type 2 -: Hyperlipidemia -: Chronic renal disease -: History of bilateral pleural effusion -: Anemia of chronic disease -: Anemia of chronic disease -: [place] -: PULMONARY NODULE -: SHORTNESS OF BREATH -: Repair of left finger fracture -: CABG maybe three Psychosocial/ Personal History: He is 56 years, has 13 children, he does not work. - Family History Father -: GI disease Notes: none per pt - Social History Smoking Status: Former smoker Alcohol use: No CD- Drugs: No Caffeine use: Yes Place of Residence: Home Review of Systems 10-point ROS is otherwise unremarkable Physical Examination - Vital Signs Temperature: 99.7 F Blood Pressure: 158/62 Pulse: 74 Respirations: 16 Pulse Ox (%): 94 - Physical Exam General: Alert, In no apparent distress HEENT: Atraumatic, PERRLA, Mucous membr. moist/pink, EOMI, Sclerae nonicteric Neck: Supple, 2+ carotid pulse no bruit, No LAD, Without JVD or thyroid abnormality Respiratory: Clear to auscultation bilaterally, Normal air movement Cardiovascular: Regular rate/rhythm, Normal S1 S2 Gastrointestinal: Normal bowel sounds, No tenderness Musculoskeletal: No tenderness Integumentary: No rashes Neurological: Normal gait, Normal speech, Normal strength at 5/5 x4 extr, Normal tone, Normal affect Lymphatics: No axilla or inguinal lymphadenopathy - Diagnosis (Problem(s)) (1) Acute cholecystitis Onset Date: 12/15/17 Status: Suspected (2) Acute on chronic kidney failure Status: Acute Qualifiers: Acute renal failure type: unspecified Chronic kidney disease stage: stage 3 (moderate) Qualified Code(s): N17.9 - Acute kidney failure, unspecified; N18.3 - Chronic kidney disease, stage 3 (moderate) (3) CHF (congestive heart failure) Onset Date: 07/28/16 Status: Chronic Qualifiers: Qualified Code(s): I50.33 - Acute on chronic diastolic (congestive) heart failure (4) Coronary artery disease Onset Date: 07/15/17 Status: Chronic Qualifiers: Coronary Disease-Associated Artery/Lesion type: bypass graft [place] vs. 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 Diabetes mellitus complication status : with other specified complication Qualified Code(s): E11.69 - Type 2 diabetes mellitus with other specified complication (6) Hypertension Onset Date: 02/21/16 Status: Chronic Qualifiers: Hypertension type: essential hypertension Qualified Code(s): I10 - Essential (primary) hypertension (7) Liver cirrhosis Onset Date: 12/15/17 Status: Chronic Qualifiers: Hepatic cirrhosis type: unspecified hepatic cirrhosis Ascites presence: with ascites Qualified Code(s): K74.60 - Unspecified cirrhosis of liver; R18.8 - Other ascites Treatment Summary: After admission to the hospital patient threatened to leave AMA. Patient complaining of being hungry and states that he would leave the hospital if he is not allowed to eat here in the hospital. Patient was educated extensively on the need for GI to evaluate the patient for possibility of acute cholecystitis on the abdominal CT and the need for liver ultrasound to rule it out. Patient refused to get an echocardiogram done and a liver ultrasound done until he we would provide him with the meal. Patient and family educated extensively again and patient stated that he would like to leave the hospital. However patient refused to sign the AMA paper and stated that he would stay here in the hospital. General surgery was consulted. Order placed for HIDA scan and liver ultrasound at time. Pt however after an Hour decided to Sign the paper and leave AMA. again was educated extensively against AMA. - Disposition Disposition: AMA-LEFT AGAINST MEDICAL ADVIC
--- NOTE | 2018-01-06 23:33 | CON ---
Date of Consultation: 12/15/2017 Reason For Consultation: Probable cholecystitis with general abdominal pain radiating to mid back wi th abnormal CT. History Of Present Illness: The patient is a 77-year-old male with multiple medical problem s including diabetes, hypertension, coronary artery disease, hyperlipidemia, and chronic renal failur e, chronic anemia, and status post CABG. The patient presented to the hospital with volume overload, ascites, abdominal pain. CT scan of pelvis revealed mild gallbladder wall thickening, and possible cholecystitis. Ultrasound revealed mild gallbladder wall thickening, and probable cholecystitis. Th e patient has normal liver chemistries it appears, but he has history of cirrhosis and vitiligo, aort ic stenosis, congestive heart failure, coronary artery disease, diabetes, hypertension, hyperlipidemi a, CABG. Multiple medical problems are making the patient a poor surgical candidate. Cardiology has been consulted as trying to preop patient and optimize prior to possible surgery. Past Medical History: Significant for diabetes, hypertension, hyperlipidemia, coronary artery diseas e, status post CABG, congestive heart failure, aortic stenosis, cirrhosis, vitiligo, CABG, chronic an emia, anemia of chronic disease, bilateral pleural effusions, pulmonary nodule, a finger fracture. Medications: At home include Lipitor, Colace, Vasotec, Lasix, glipizide, Toprol. Allergies: NKDA. Social History: , 13 kids. No tobacco. No alcohol. Family History: Father of COPD. Mother is alive. Physical Examination: Vital Signs: The patient is afebrile. Vital signs stable with a temperature of 99.7 degrees Fahrenh eit, pulse 74, respirations 16, blood pressure 155/87, O2 saturation 94%, 5 foot, 240 pounds, BMI 25. 7 kg/m2. General: A well-developed, well nourished male, lying in bed, in no acute distress. HEENT: Normocephalic and atraumatic. Anicteric. Pupils equal, round, and reactive to light. Anict db. Oropharynx clear. Neck: Supple. No masses. Respirations: Clear to auscultation bilaterally. Cardiac: Regular rate and rhythm. No gallop or rubs. Abdomen: Soft, positive bowel sounds. Soft, nondistended. He has got some generalized abdominal pa in. No peritoneal or Mccarthy sign. No rebound. Extremities: No clubbing, cyanosis, or edema. 2+ pulses. Neuro: Alert and oriented x3, grossly nonfocal, 5/5 motor strength intact to light touch. Laboratory Data: The patient has a white count of 6.7, hemoglobin 9.2, hematocrit 27.2, MCV of 95, p latelet count 218, polys of 75%, lymphocytes 15%, monocytes 8%, eosinophils 2%. PT of 12.8, INR of 1 .1, PTT of 29.1. Sodium 138, potassium 3.8, chloride 107, bicarb 19, BUN of 75, creatinine of 4.7, g lucose 58, calcium 8.3, phosphorus 6.3, magnesium 1.9, total bilirubin 0.5, AST of 11, ALT of 20, and alkaline phosphatase 74, beta-natriuretic peptide elevated at 1832, total protein 6.3, albumin 3.1. UA had 1+ blood, 3+ total protein, trace glucose, otherwise negative. CT abdomen and pelvis, mild g allbladder wall thickening, possible acute cholecystitis with sigmoid diverticulosis. Bilateral pleu ral effusion and atelectasis. Ultrasound revealed mild gallbladder wall thickening, probable cholecy stitis as well and liver numbers as stated were normal. Impression: Probable cholecystitis and abdominal pain radiating to mid back, 10/10 maximum, now down to 5/10. CT and ultrasound revealing mild gallbladder wall thickening, probable cholecystitis. Has normal liver function tests, liver chemistries, but he is a poor surgical candidate with diabetes, h ypertension, hyperlipidemia, status post myocardial infarction with CABG, congestive heart failure, s tenosis, cirrhosis, and multiple other medical problems. Recommendation: 1.Agree with surgical consultation. 2.Agree with cardiology follows the patient optimizing the patient's medical condition prior to poss ible surgery. 3.Continue p.r.n. pain medicines. Keep patient n.p.o. 4.Continue IV fluids gelled with patient's congestive heart failure and continue IV antibiotics. JAVIER/EB Voice ID: [id number] Report ID: [id number]
== END 2017-12-15 15:25 | disposition left against medical advice (07) | DRG 444 ==
LOC: ER 18:08 → ERHOLD 21:25 → 4TH 22:39
PROVIDERS: ADMIT Hospitalist; ATTEND Family Medicine
DX: K81.0 Acute cholecystitis (principal); I50.33 Acute on chronic diastolic (congestive) heart failure; I13.0 Hypertensive heart and chronic kidney disease with heart failure and stage 1 through stage 4 chronic kidney disease, or unspecified chronic kidney disease; R18.8 Other ascites; N17.9 Acute kidney failure, unspecified; E11.22 Type 2 diabetes mellitus with diabetic chronic kidney disease; E78.5 Hyperlipidemia, unspecified; D63.8 Anemia in other chronic diseases classified elsewhere; N18.3 Chronic kidney disease, stage 3 (moderate); K74.60 Unspecified cirrhosis of liver; I35.0 Nonrheumatic aortic (valve) stenosis; R91.1 Solitary pulmonary nodule; I25.2 Old myocardial infarction; Z53.21 Procedure and treatment not carried out due to patient leaving prior to being seen by health care provider
CPT/HCPCS: 36415; 71045; 74176; 76705; 80048; 80053; 80076; 81003; 82140; 82550; 82553; 82962; 83735; 83880; 84100; 84484; 85025; 85610; 85730; 93005; 96365; 96375; 99285; J1650; J2270; J2405; J2543

== ENCOUNTER 2017-12-26 10:40 | Emergency (ER) | payer OTHER ==
--- NOTE | 2017-12-26 11:53 | RAD REPORT ---
EXAM DESCRIPTION: CT - Stone Protocol - 12/26/2017 11:31 am CLINICAL HISTORY: Abdominal pain. Left upper quadrant pain COMPARISON: December 14, 2017 TECHNIQUE: Computed axial tomography of the abdomen pelvis was obtained without oral or IV contrast. Lack of IV and oral contrast limits evaluation of solid organs, bowel, and vessels. Coronal reformat yoli images were obtained and reviewed. All CT scans are performed using dose optimization technique as appropriate and may include automated exposure control or mA/KV adjustment according to patient size. FINDINGS: Renal arterial calcifications are present. A renal calculus is not seen. An ureteral calcu sigifredo is not noted. A bladder calculus is not present. The bladder wall is mildly thickened. The prosta te gland is mildly enlarged. Small to moderate bilateral pleural effusions are present. A left lower lobe opacity probably represe nts atelectasis. The liver, spleen, pancreas and adrenals appear grossly normal Diverticula stem from the colon without evidence of diverticulitis. A small amount of ascites is pres ent. A small umbilical hernia is present The gallbladder wall appears mildly thickened. Spondylosis involves the lumbar spine resulting spinal stenosis IMPRESSION: Negative for a genitourinary calculus Small to moderate bilateral pleural effusions. Small amount of ascites Mild bladder wall thickening may indicate a cystitis or chronic bladder outlet obstruction Mild thickened gallbladder wall may be secondary to hypoalbuminemia or cholecystitis
--- NOTE | 2017-12-26 12:21 | RAD REPORT ---
EXAM DESCRIPTION: Eliu Single View12/26/2017 11:40 am CLINICAL HISTORY: Chest pain COMPARISON: December 14, 2017 FINDINGS: Small to moderate left and small right pleural effusions are present. Left lower lobe atel ectasis is seen. Main lungs appear clear. The heart is mildly enlarged. Postsurgical changes involve the chest
[2017-12-26 12:35] LABS: Absolute Lymphocytes (CBC) 0.8 K/uL (0.7-4.9); Absolute Monocytes 0.5 K/uL (0.1-1.3); Basophils % 0.7 % (0-1.3); Eosinophils % 1.7 % (0-4.4); Hematocrit 29.9 % (39.6-49.0); Lymphocytes % 12.6 % (15.3-44.8); MCH 32.6 pg (27.0-35.0); MCV 95.1 fL (80-100); MPV 8.5 fL (7.6-11.3); Monocytes % 8.4 % (3.3-12.3); RBC Red Blood Cell Count 3.15 M/uL (4.33-5.43)
[2017-12-26 12:53] LABS: Potassium 4.5 mEq/L (3.6-5.0)
[2017-12-26 13:09] LABS: Protime INR 1.18
[2017-12-26 13:39] LABS: Albumin 3.7 g/dL (3.2-5.5); Bilirubin Direct 0.1 mg/dL (0-0.2); Bilirubin Total 0.5 mg/dL (0.3-1.2); Magnesium 1.8 mg/dL (1.8-2.5); Protein, Total 7.2 g/dL (6.0-8.3)
[2017-12-26 15:12] LABS: Urine Blood TRACE (NEG); Urine Glucose NEGATIVE (NEG); Urine Protein 3+ (NEG)
--- NOTE | 2017-12-26 16:32 | ER ---
Nurse's Notes [facility] Name: Blaise Quarles Age: 77 yrs Sex: Male : 1940 Arrival Date: 12/26/2017 Time: 10:42 Bed 16 Private MD: Diagnosis: Lower abdominal pain, unspecified Presentation: 12/26 10:46 Presenting complaint: EMS states: Left upper quadrant that radiates to left flank that aj started last night. Transition of care: patient was not received from another setting of care. Onset of symptoms was November 2017. Risk Assessment: Do you want to hurt yourself or someone else? Patient reports no desire to harm self or others. Care prior to arrival: None. 10:46 Method Of Arrival: EMS: [facility] aj 10:46 Acuity: SARATH 3 aj 17:13 Initial Sepsis Screen: Does the patient meet any 2 criteria? No. Patient's initial mb3 sepsis screen is negative. Does the patient have a suspected source of infection? No. Patient's initial sepsis screen is negative. Triage Assessment: 10:52 General: Appears in no apparent distress. comfortable, Behavior is calm, cooperative, aj appropriate for age. Pain: Complains of pain in left upper quadrant. Neuro: Level of Consciousness is awake, alert, obeys commands, Oriented to person, place, time, situation, Appropriate for age. Respiratory: Airway is patent Respiratory effort is even, unlabored, Respiratory pattern is regular, symmetrical. GI: Reports lower abdominal pain, upper abdominal pain. : Reports pain flank(s). Derm: Skin is intact, is healthy with good turgor, Skin is pink, warm \T\ dry. normal. Historical: - Allergies: 10:52 No Known Allergies; aj - Home Meds: 10:52 amlodipine 10 mg tab 1 tab once daily [Active]; aspirin 81 mg Oral TbEC 1 tab once aj daily [Active]; atorvastatin 40 mg Oral tab 1 tab once daily [Active]; glipizide 10 mg Oral tab [Active]; Levemir 100 unit/mL subcutaneous soln [Active]; metoprolol tartrate 25 mg Oral tab 1 tab 2 times per day [Active]; tramadol 50 mg Oral tab [Active]; - PMHx: 10:52 CAD; Anemia; chronic renal disease; Diabetes - IDDM; Hypertension; Myocardial aj infarction; pulmonary nodule; - PSHx: 10:52 Triple Bypass; aj - Immunization history:: Adult Immunizations up to date. - Social history:: Smoking status: Patient/guardian denies using tobacco. - Ebola Screening: : Patient negative for fever greater than or equal to 101.5 degrees Fahrenheit, and additional compatible Ebola Virus Disease symptoms Patient denies exposure to infectious person Patient denies travel to an Ebola-affected area in the 21 days before illness onset No symptoms or risks identified at this time. Screenin:12 Abuse screen: Denies threats or abuse. Denies injuries from another. Nutritional aj screening: No deficits noted. Tuberculosis screening: No symptoms or risk factors identified. Fall Risk None identified. Assessment: 11:10 Reassessment: Patient refused IV and blood work. Patient would only like imaging done aj of abdomen. Insisted on speaking to provider. Provider notified. Vital Signs: 10:52 BP 201 / 68; Pulse 59; Resp 19; Temp 98.6; Pulse Ox 96% on R/A; Weight 90.72 kg; Height aj 5 ft. 8 in. (172.72 cm); Pain 9/10; 12:38 BP 181 / 79; Pulse 59; Resp 24; Pulse Ox 96% on R/A; aj 16:12 BP 214 / 88; Pulse 65; Resp 24; Pulse Ox 96% on R/A; mh5 10:52 Body Mass Index 30.41 (90.72 kg, 172.72 cm) aj ED Course: 10:42 Patient arrived in ED. hj 10:44 Uriel Santos MD is Attending Physician. gs 10:46 Juliana Gabriel, HUONG is Primary Nurse. aj 10:50 Triage completed. aj 10:52 Arm band placed on left wrist. Patient placed in an exam room. aj 11:25 CT completed. Patient tolerated procedure well. Patient moved to CT via stretcher. Patient moved back from CT. 11:30 CT Stone Protocol In Process Unspecified. EDMS 11:38 X-ray completed. Patient tolerated procedure well. la2 11:39 XRAY Chest (1 view) In Process Unspecified. EDMS 12:00 Initial lab(s) drawn, by al, sent to lab. mh5 12:05 Inserted saline lock: 22 gauge in left antecubital area, using aseptic technique. Blood 5 collected. 12:10 Inserted saline lock: 20 gauge in left forearm, using aseptic technique. Blood aj collected. 13:01 Initial lab(s) drawn, by me. mh5 13:03 Patient has correct armband on for positive identification. Placed in gown. Bed in low mh5 position. Call light in reach. Side rails up X2. Adult w/ patient. Warm blanket given. Pulse ox on. NIBP on. 16:31 Brandon Pérez MD is Referral Physician. 17:13 No provider procedures requiring assistance completed. IV discontinued, intact, mb3 bleeding controlled, No redness/swelling at site. Pressure dressing applied. Administered Medications: 12:09 Drug: Lasix 40 mg Route: IVP; Site: left forearm; aj Outcome: 16:32 Discharge ordered by MD. 17:12 Discharged to home via wheelchair, with family. mb3 17:12 Condition: stable 17:12 Discharge instructions given to patient, family, Instructed on discharge instructions, follow up and referral plans. Demonstrated understanding of instructions, follow-up care. 17:13 Patient left the ED. mb3 Signatures: Dispatcher [employer] EDJuliana Glover, RN RN Nydia Cueto Henry, RN Keara Flynn [facility] Uriel Santos MD MD gs Ardoin, Leslie la2 Barnett, Mark, RN RN mb3
--- NOTE | 2017-12-26 16:33 | EDPHYS ---
Physician Documentation [facility] Name: Blaise Quarles Age: 77 yrs Sex: Male : 1940 Arrival Date: 12/26/2017 Time: 10:42 Bed 16 Private MD: ED Physician Uriel Santos HPI: 12/26 16:08 This 77 yrs old Male presents to ER via EMS with unknown complaint. gs 16:08 The patient presents with abdominal pain in the left lower quadrant. Onset: The gs symptoms/episode began/occurred gradually, 2 day(s) ago. The symptoms do not radiate. Associated signs and symptoms: Pertinent negatives: chest pain, shortness of breath. The symptoms are described as crampy. Severity of pain: At its worst the pain was moderate in the emergency department the pain is unchanged. The patient has experienced similar episodes in the past, chronically. The patient has been recently seen by a physician: The patient has been recently been admitted at [facility], was discharged last week. Historical: - Allergies: 10:52 No Known Allergies; aj - Home Meds: 10:52 amlodipine 10 mg tab 1 tab once daily [Active]; aspirin 81 mg Oral TbEC 1 tab once aj daily [Active]; atorvastatin 40 mg Oral tab 1 tab once daily [Active]; glipizide 10 mg Oral tab [Active]; Levemir 100 unit/mL subcutaneous soln [Active]; metoprolol tartrate 25 mg Oral tab 1 tab 2 times per day [Active]; tramadol 50 mg Oral tab [Active]; - PMHx: 10:52 CAD; Anemia; chronic renal disease; Diabetes - IDDM; Hypertension; Myocardial aj infarction; pulmonary nodule; - PSHx: 10:52 Triple Bypass; aj - Immunization history:: Adult Immunizations up to date. - Social history:: Smoking status: Patient/guardian denies using tobacco. - Ebola Screening: : Patient negative for fever greater than or equal to 101.5 degrees Fahrenheit, and additional compatible Ebola Virus Disease symptoms Patient denies exposure to infectious person Patient denies travel to an Ebola-affected area in the 21 days before illness onset No symptoms or risks identified at this time. ROS: 16:08 All other systems are negative. gs Exam: 16:08 Head/Face: Normocephalic, atraumatic. Eyes: Pupils equal round and reactive to light, gs extra-ocular motions intact. Lids and lashes normal. Conjunctiva and sclera are non-icteric and not injected. Cornea within normal limits. Periorbital areas with no swelling, redness, or edema. ENT: Nares patent. No nasal discharge, no septal abnormalities noted. Tympanic membranes are normal and external auditory canals are clear. Oropharynx with no redness, swelling, or masses, exudates, or evidence of obstruction, uvula midline. Mucous membranes moist. Neck: Trachea midline, no thyromegaly or masses palpated, and no cervical lymphadenopathy. Supple, full range of motion without nuchal rigidity, or vertebral point tenderness. No Meningismus. Chest/axilla: Normal chest wall appearance and motion. Nontender with no deformity. No lesions are appreciated. Cardiovascular: Regular rate and rhythm with a normal S1 and S2. No gallops, murmurs, or rubs. Normal PMI, no JVD. No pulse deficits. Respiratory: Lungs have equal breath sounds bilaterally, clear to auscultation and percussion. No rales, rhonchi or wheezes noted. No increased work of breathing, no retractions or nasal flaring. Back: No spinal tenderness. No costovertebral tenderness. Full range of motion. Skin: Warm, dry with normal turgor. Normal color with no rashes, no lesions, and no evidence of cellulitis. MS/ Extremity: Pulses equal, no cyanosis. Neurovascular intact. Full, normal range of motion. Neuro: Awake and alert, GCS 15, oriented to person, place, time, and situation. Cranial nerves II-XII grossly intact. Motor strength 5/5 in all extremities. Sensory grossly intact. Cerebellar exam normal. Normal gait. 16:08 Constitutional: The patient appears alert, awake. 16:08 ECG was reviewed by the Attending Physician. 16:08 Abdomen/GI: Palpation: moderate abdominal tenderness, in the left upper quadrant and left lower quadrant, rebound tenderness, is not appreciated. 16:27 ECG was reviewed by the Attending Physician. gs 16:27 Cardiovascular: Edema: 2+ edema to level of left midcalf and right midcalf. gs Vital Signs: 10:52 BP 201 / 68; Pulse 59; Resp 19; Temp 98.6; Pulse Ox 96% on R/A; Weight 90.72 kg; Height aj 5 ft. 8 in. (172.72 cm); Pain 9/10; 12:38 BP 181 / 79; Pulse 59; Resp 24; Pulse Ox 96% on R/A; aj 16:12 BP 214 / 88; Pulse 65; Resp 24; Pulse Ox 96% on R/A; mh5 10:52 Body Mass Index 30.41 (90.72 kg, 172.72 cm) MDM: 11:04 Patient medically screened. 16:27 Differential diagnosis: AAA, coronary artery disease, diverticulitis, non-specific abd gs pain. Data reviewed: vital signs, nurses notes. Response to treatment: the patient's symptoms have markedly improved after treatment. ED course: spoke with dr zamarripa about admission, she spoke with dr reyes about case. says troponin is chronically elevated doesn't think change is statistically significant. also stated pt has chronic pain for years and pt states this is samre pain that he has had worked up at many places. doesn't want to admit wants discharge and follow up. 12/26 11:07 Order name: Basic Metabolic Panel; Complete Time: 13:54 12/26 11:07 Order name: CBC with Diff; Complete Time: 13:33 12/26 11:07 Order name: CPK; Complete Time: 13:54 12/26 11:07 Order name: LFT's; Complete Time: 13:54 12/26 11:07 Order name: Magnesium; Complete Time: 13:54 12/26 11:07 Order name: PT-INR; Complete Time: 13:33 12/26 11:07 Order name: Troponin (emerg Dept Use Only); Complete Time: 13:33 12/26 11:07 Order name: XRAY Chest (1 view); Complete Time: 12:23 12/26 11:07 Order name: EKG; Complete Time: 11:07 12/26 11:07 Order name: Lipase; Complete Time: 13:54 12/26 11:07 Order name: CT Stone Protocol; Complete Time: 12:23 12/26 14:41 Order name: Troponin (emerg Dept Use Only); Complete Time: 15:51 12/26 15:00 Order name: Urine Dipstick--Ancillary (enter results); Complete Time: 15:51 em1 12/26 11:07 Order name: Cardiac monitoring 12/26 11:07 Order name: EKG - Nurse/Tech 12/26 11:07 Order name: IV Saline Lock 12/26 11:07 Order name: Labs collected and sent 12/26 11:07 Order name: O2 Per Protocol; Complete Time: 11:51 12/26 11:07 Order name: O2 Sat Monitoring; Complete Time: 11:51 12/26 11:07 Order name: Urine Dipstick-Ancillary (obtain specimen); Complete Time: 14:59 12/26 12:46 Order name: Diet 2 Gm Sodium; Complete Time: 12:46 EC:27 Rate is 63 beats/min. Rhythm is regular. IN interval is normal. QRS interval is gs prolonged. T waves are Inverted. Clinical impression: NSR w/ Non-specific ST/T Changes. Interpreted by me. 16:27 No change from previous ECG. Administered Medications: 12:09 Drug: Lasix 40 mg Route: IVP; Site: left forearm; aj Disposition: 12/26/17 16:32 Discharged to Home. Impression: Lower abdominal pain, unspecified. - Condition is Stable. - Discharge Instructions: Abdominal Pain, Adult, Chronic Pain, End-Stage Kidney Disease. - Medication Reconciliation Form, Thank You Letter, Antibiotic Education, Prescription Opioid Use form. - Follow up: Brandon Pérez MD; When: 2 - 3 days; Reason: Re-evaluation by your physician. Signatures: Dispatcher [employer] Juliana Dobbs RN RN aj Starr, Gregory, MD MD Nikunj Groves RN RN mb3 Corrections: (The following items were deleted from the chart) 17:13 16:32 12/26/2017 16:32 Discharged to Home. Impression: Lower abdominal pain, mb3 unspecified. Condition is Stable. Forms are Medication Reconciliation Form, Thank You Letter, Antibiotic Education, Prescription Opioid Use. Follow up: Brandon Pérez; When: 2 - 3 days; Reason: Re-evaluation by your physician. gs
[2017-12-26 17:56] VITALS: TEMP 98.6; O2SAT 96
[2017-12-26 17:58] VITALS: BP 214/88
--- NOTE | 2017-12-27 06:41 | EKG ---
Test Date: 2017-12-26 Test Time: 16:23:50 Studio Sales Associate: LUCI MEASUREMENT RESULTS: Intervals: Rate: 63 DC: 174 QRSD: 102 QT: 450 QTc: 460 [place]: P: 47 DC: 174 QRS: -39 T: 147 INTERPRETIVE STATEMENTS: Sinus rhythm with fusion complexes Possible Left atrial enlargement Left axis deviation Left ventricular hypertrophy with repolarization abnormality Inferior infarct, age undetermined Anteroseptal infarct, age undetermined Abnormal ECG Compared to ECG 12/15/2017 01:14:20 Sinus bradycardia no longer present Sinus arrhythmia no longer present Ventricular premature complex(es) no longer present Myocardial infarct finding still present Electronically Signed On 12-27-17 06:40:19 CDT by Raheel Zeng
== END 2017-12-26 17:13 | disposition home or self-care (01) ==
LOC: ER 10:40
DX: R10.32 Left lower quadrant pain (principal); I12.9 Hypertensive chronic kidney disease with stage 1 through stage 4 chronic kidney disease, or unspecified chronic kidney disease; E11.22 Type 2 diabetes mellitus with diabetic chronic kidney disease; N18.9 Chronic kidney disease, unspecified; I25.2 Old myocardial infarction; Z79.82 Long term (current) use of aspirin; Z79.4 Long term (current) use of insulin; Z95.1 Presence of aortocoronary bypass graft
CPT/HCPCS: 36415; 71045; 74176; 76377; 80048; 80076; 81003; 82550; 83690; 83735; 84484; 85025; 85610; 93005; 96374; 99284

== ENCOUNTER 2018-01-11 09:18 | Inpatient (IN) | payer OTHER ==
[2018-01-11] MEDS ORDERED: DEXTROSE ORAL 40% 15 GM TUBE ONE (10:05)
--- NOTE | 2018-01-11 10:21 | RAD REPORT ---
EXAM DESCRIPTION: RAD - Chest Single View - 01/11/2018 10:06 am CLINICAL HISTORY: Chest pain, abdominal pain COMPARISON: December 26 TECHNIQUE: AP portable chest image was obtained 1004 hours . FINDINGS: Lung volumes are low. Cardiomegaly is present. Upper lobe vasculature is prominent. Left b ase opacification is present with pleural effusion. Trachea is midline. Sternotomy wires are in place . CABG surgical changes seen. No pneumothorax. No gross bony abnormality seen. No acute aortic findin gs suspected. IMPRESSION: CHF/volume overload findings are evident. Concurrent or superimposed left base pneumonia cannot be excluded. Overall chest findings are not substantially different from December 26.
[2018-01-11 10:37] LABS: Absolute Lymphocytes (CBC) 0.9 K/uL (0.7-4.9); Absolute Monocytes 0.5 K/uL (0.1-1.3); Absolute Neutrophil 5.5 K/uL (1.8-8.0); Basophils % 0.7 % (0-1.3); Hematocrit 34.2 % (39.6-49.0); Lymphocytes % 13.2 % (15.3-44.8); MCH 31.4 pg (27.0-35.0); MCV 96.2 fL (80-100); MPV 8.9 fL (7.6-11.3); RBC Red Blood Cell Count 3.56 M/uL (4.33-5.43)
[2018-01-11 10:41] LABS: Protime INR 1.14
[2018-01-11 11:19] LABS: ALT/SGPT 23 U/L (12-78); AST/SGOT 13 U/L (15-37); Albumin 3.6 g/dL (3.4-5.0); Alkaline Phosphatase 86 U/L (45-117); BUN Blood Urea Nitrogen 72 mg/dL (7-18); Bicarbonate 23 mmol/L (21-32); Bilirubin Direct < 0.1 mg/dL (0-0.2); Bilirubin Total 0.4 mg/dL (0.2-1.0); CKMB Creatine Kinase MB 7.1 ng/mL (0.3-3.6); Creatine Phosphokinase 115 U/L (39-308); Glucose Level 58 mg/dL (74-106); Lipase 146 U/L (73-393); Magnesium 1.9 mg/dL (1.8-2.4); NT PRO-BNP > 35000 pg/mL (<450); Potassium 4.5 mmol/L (3.5-5.1); Sodium Level 140 mmol/L (136-145)
[2018-01-11] MEDS ORDERED: ASPIRIN 81 MG CHEWABLE TABLET ONE (11:21)
[2018-01-11] MEDS ORDERED: ALBUTEROL 2.5 MG/3 ML NEB SOL NEB PRN (12:50)
[2018-01-11] MEDS ORDERED: ACETAMINOPHEN 500 MG TAB PO PRN (12:50)
[2018-01-11] MEDS ORDERED: IPRATROPIUM BROM 0.5MG/2.5ML NEB PRN (12:50)
[2018-01-11] MEDS ORDERED: ONDANSETRON 4 MG/2 ML VIAL IV PRN (12:50)
--- NOTE | 2018-01-11 12:56 | EKG ---
Test Date: 2018-01-11 Test Time: 09:26:53 Devulcanizer Operator: LUCI MEASUREMENT RESULTS: Intervals: Rate: 63 MN: 168 QRSD: 94 QT: 422 QTc: 431 [place]: P: 61 MN: 168 QRS: -31 T: 133 INTERPRETIVE STATEMENTS: Normal sinus rhythm Possible Left atrial enlargement Left axis deviation Left ventricular hypertrophy with repolarization abnormality Inferior infarct, age undetermined Anteroseptal infarct, age undetermined Abnormal ECG Compared to ECG 12/26/2017 16:23:50 Fusion complex(es) no longer present Myocardial infarct finding still present Electronically Signed On 01-11-18 12:55:04 CDT by Raheel Zeng
[2018-01-11] MEDS ORDERED: BUMETANIDE 2.5 MG/10 ML VIAL IV ONE (13:00)
--- NOTE | 2018-01-11 13:05 | ER ---
Nurse's Notes [facility] Name: Blaise Quarles Age: 77 yrs Sex: Male : 1940 Arrival Date: 01/11/2018 Time: 09:22 Bed 16 Private MD: Diagnosis: Systolic (congestive) heart failure;Unspecified abdominal pain Presentation: 01/11 09:16 Presenting complaint: EMS states: pt started having chest pain, but also complains of tw2 abdominal pain and feels bloated so he hasnt eaten since 2pm yesterday, BP 228/96, HR 66 home o2 at 3l but lots of tubing so EMS placed on 4L nc, 54 mg/dL BGL, took us 30 minutes on scene to convince him to come because he doesn't like the needles. Transition of care: patient was not received from another setting of care. Onset of symptoms was January 11, 2018. Risk Assessment: Do you want to hurt yourself or someone else? Patient reports no desire to harm self or others. Initial Sepsis Screen: Does the patient meet any 2 criteria? No. Patient's initial sepsis screen is negative. Does the patient have a suspected source of infection? No. Patient's initial sepsis screen is negative. Care prior to arrival: None. 09:16 Method Of Arrival: EMS: [facility] tw2 09:16 Acuity: SARATH 3 tw2 Historical: - Allergies: 10:42 No Known Drug Allergies; tw2 - Home Meds: 10:45 enalapril maleate 10 mg Oral tab 1 tab once daily [Active]; furosemide 20 mg Oral tab 1 tw2 tab once daily [Active]; atorvastatin 10 mg oral tab 1 tab once daily [Active]; metoprolol tartrate 50 mg Oral tab 1 tab once daily [Active]; glipizide 10 mg Oral tab 1 tab 2 times per day [Active]; - PMHx: 10:42 Anemia; CAD; chronic renal disease; Diabetes - IDDM; Hypertension; Myocardial tw2 infarction; pulmonary nodule; - Immunization history:: Adult Immunizations up to date. - Social history:: Smoking status: Patient/guardian denies using tobacco. - Ebola Screening: : Patient denies travel to an Ebola-affected area in the 21 days before illness onset. - : The history from the nurse's notes was reviewed. Screenin:09 Abuse screen: Denies threats or abuse. Nutritional screening: No deficits noted. tw2 Tuberculosis screening: No symptoms or risk factors identified. Fall Risk None identified. Assessment: 09:30 General: Appears in no apparent distress. Behavior is appropriate for age. Pain: tw2 Complains of pain in chest and abdomen. Neuro: Level of Consciousness is awake, alert, obeys commands, Oriented to person, place, time, situation. Cardiovascular: Reports chest pain, Denies shortness of breath, uses home o2 at 3l NC. Respiratory: Airway is patent Respiratory effort is even, unlabored, Respiratory pattern is regular, symmetrical, Breath sounds are clear bilaterally. GI: Abdomen is round Bowel sounds present X 4 quads. Reports lower abdominal pain, upper abdominal pain, bloating, intolerance of food, nausea. : No signs and/or symptoms were reported regarding the genitourinary system. Derm: Skin is fragile, is thin, Skin is dry. Musculoskeletal: Range of motion: intact in all extremities, Reports weakness in "all over and dizzy". 10:08 Reassessment: pt refusing iv start and chest xray, says he doesn't like needles, tw2 provider at bedside pt encouraged to let us help him, pts daughter and spouse at bedside encouraging pt as well. 10:37 Reassessment: Patient appears in no apparent distress at this time. No changes from tw2 previously documented assessment. Patient and/or family updated on plan of care and expected duration. Pain level reassessed. Patient is alert, oriented x 3, equal unlabored respirations, skin warm/dry/pink. 10:38 Pain: Pain radiates to back Pain began this morning about 5am. tw2 10:55 Reassessment: pt refused CT scan, provider notified. tw2 11:24 Reassessment: Patient appears in no apparent distress at this time. No changes from tw2 previously documented assessment. Patient and/or family updated on plan of care and expected duration. Pain level reassessed. Patient is alert, oriented x 3, equal unlabored respirations, skin warm/dry/pink. 12:30 Reassessment: Patient appears in no apparent distress at this time. No changes from tw2 previously documented assessment. Patient and/or family updated on plan of care and expected duration. Pain level reassessed. Patient is alert, oriented x 3, equal unlabored respirations, skin warm/dry/pink. 13:15 Reassessment: Patient appears in no apparent distress at this time. No changes from tw2 previously documented assessment. Patient and/or family updated on plan of care and expected duration. Pain level reassessed. Patient is alert, oriented x 3, equal unlabored respirations, skin warm/dry/pink. 14:06 Reassessment: Patient appears in no apparent distress at this time. No changes from tw2 previously documented assessment. Patient and/or family updated on plan of care and expected duration. Pain level reassessed. Patient is alert, oriented x 3, equal unlabored respirations, skin warm/dry/pink. Vital Signs: 09:25 BP 228 / 87; Pulse 63; Resp 18; Temp 97.6(O); Pulse Ox 100% on 4 lpm NC; Weight 74.84 tw2 kg; Pain 8/10; 10:36 BP 221 / 79; Pulse 62; Resp 17; Pulse Ox 98% on 4 lpm NC; tw2 11:24 BP 198 / 85; Pulse 64; Resp 17; Pulse Ox 100% on 4 lpm NC; tw2 12:29 BP 200 / 83; Pulse 66; Resp 17; Pulse Ox 100% on 4 lpm NC; tw2 13:14 BP 185 / 73; Pulse 63; Resp 17; Pulse Ox 100% on 4 lpm NC; tw2 14:05 BP 165 / 70; Pulse 54; Resp 17; Pulse Ox 98% on 4 lpm NC; tw2 ED Course: 09:10 Oxygen administration via nasal cannula \\T\\ 4L/min. tw2 09:22 Patient arrived in ED. tw2 09:25 Triage completed. tw2 09:25 Arm band placed on. tw2 09:26 Placed in gown. Bed in low position. Adult w/ patient. monitor tech on. Pulse ox on. tw2 NIBP on. 09:34 Gerald Livingston PA is PHCP. [facility] 09:34 Andreas Pal MD is Attending Physician. [facility] 09:36 EKG done, by ED staff, reviewed by Andreas Pal MD. 5 10:06 XRAY Chest (1 view) In Process Unspecified. EDMS 10:07 Sonia Gardner, HUONG is Primary Nurse. tw2 10:20 No provider procedures requiring assistance completed. Inserted saline lock: 22 gauge tw2 in right antecubital area, using aseptic technique. Blood collected. Missed attempt(s): 22 gauge in left antecubital area. per huong patel. Bleeding controlled, band aid applied, catheter tip intact. 10:54 Note: ATTEMPTED TO SCAN PT BUT HE IS REFUSING. sj 12:01 Awaiting: Bumex from pharmacy at this time, not available in pxysis, provider notified. tw2 order faxed to pharmacy. 13:03 Venu Fernandez MD is Hospitalizing Provider. [facility] 14:03 Patient admitted, IV remains in place. tw2 14:05 Awaiting: attempted to give report, HUONG Morales will have to call me back. tw2 Administered Medications: 10:07 Drug: Glucose Gel 15 grams Route: PO; tw2 10:36 Follow up: Response: Blood sugar is elevated tw2 11:26 Drug: Aspirin Chewable Tablet 324 mg Route: PO; tw2 12:02 Follow up: Response: No adverse reaction tw2 12:22 Drug: Bumex 1 mg Route: IVP; Site: right antecubital; tw2 13:14 Follow up: Response: No adverse reaction tw2 13:42 Drug: Zofran 4 mg Route: IVP; Site: right antecubital; tw2 14:06 Follow up: Response: No adverse reaction tw2 13:43 Drug: morphine 2 mg Route: IVP; Site: right antecubital; tw2 14:06 Follow up: Response: No adverse reaction; Pain is decreased tw2 Point of Care Testing: Blood Glucose: 09:31 Blood Glucose: 57 mg/dL; tw2 10:36 Blood Glucose: 100 mg/dL; tw2 11:24 Blood Glucose: 108 mg/dL; tw2 14:17 Blood Glucose: 88 mg/dL; tw2 09:31 provider notified. tw2 10:36 provider notified. tw2 Ranges: Outcome: 13:04 Decision to Hospitalize by Provider. kevin 14:14 Admitted to Med/surg accompanied by tech, room 404, Report called to HUONG Morales tw2 14:14 Condition: stable 14:14 Instructed on the need for admit. 14:33 Patient left the ED. tw2 Signatures: Dispatcher [employer] EDMS Gerald Livingston PA PA jmm Jones, Susan sj Wise, Sonia, RN RN tw2 [facility] Corrections: (The following items were deleted from the chart) 12:56 09:30 The history from the nurse's notes was reviewed. nallely browning 14:05 09:16 Presenting complaint: EMS states: pt started having chest pain, but also tw2 complains of abdominal pain and feels bloated so he hasnt eaten since 2pm yesterday, BP 228/96, HR 66 home o2 at 3l but lots of tubing, 54 mg/dL BGL, took us 30 minutes on scene to convince him to come because he doesn't like the needles tw2
--- NOTE | 2018-01-11 13:05 | EDPHYS ---
Physician Documentation [facility] Name: Blaise Quarles Age: 77 yrs Sex: Male : 1940 Arrival Date: 01/11/2018 Time: 09:22 Bed 16 Private MD: ED Physician Andreas Pal HPI: 01/11 09:30 This 77 yrs old Male presents to ER via EMS with complaints of Chest Pain > 30 jmm y/o, Abd Pain > 50 y/o. 09:30 The patient or guardian reports chest pain that is located primarily in the substernal jmm area. Onset: gradually, this morning at approx 4 am. The pain radiates to left back. Associated signs and symptoms: Pertinent positives: shortness of breath. The chest pain is described as aching. Duration: The patient or guardian reports a single episode, that is still ongoing. This is a 77 year old male with a history of chf, DM, HTN, CAD that presents to the ED with chest pain beginning at approx 4 am this morning. The patient also complained of right eye blurred vision and epigastric abdominal pain. The patient had a similar episode 1 month prior. . Historical: - Allergies: 10:42 No Known Drug Allergies; tw2 - Home Meds: 10:45 enalapril maleate 10 mg Oral tab 1 tab once daily [Active]; furosemide 20 mg Oral tab 1 tw2 tab once daily [Active]; atorvastatin 10 mg oral tab 1 tab once daily [Active]; metoprolol tartrate 50 mg Oral tab 1 tab once daily [Active]; glipizide 10 mg Oral tab 1 tab 2 times per day [Active]; - PMHx: 10:42 Anemia; CAD; chronic renal disease; Diabetes - IDDM; Hypertension; Myocardial tw2 infarction; pulmonary nodule; - Immunization history:: Adult Immunizations up to date. - Social history:: Smoking status: Patient/guardian denies using tobacco. - Ebola Screening: : Patient denies travel to an Ebola-affected area in the 21 days before illness onset. - : The history from the nurse's notes was reviewed. ROS: 10:46 Cardiovascular: Positive for chest pain. jmm 10:46 Respiratory: Positive for shortness of breath. 10:46 Abdomen/GI: Positive for abdominal pain. 10:46 Neuro: Positive for visual changes. 10:46 All other systems are negative. Exam: 10:46 Head/Face: atraumatic. [facility] 10:46 Constitutional: The patient appears in no acute distress, alert, uncomfortable. 10:46 Eyes: blurred vision. 10:46 Eyes: Extraocular movements: intact throughout. 10:46 Neck: ROM/movement: is normal. 10:46 Cardiovascular: Rate: normal, Rhythm: regular, Pulses: no pulse deficits are appreciated. 10:46 Respiratory: the patient does not display signs of respiratory distress, Respirations: normal, Breath sounds: rhonchi, that are moderate, are scattered. 10:46 Abdomen/GI: Inspection: abdomen appears normal, Palpation: soft, mild abdominal tenderness, in the right upper quadrant and left upper quadrant. 10:46 Back: ROM is normal. 10:46 Musculoskeletal/extremity: ROM: intact in all extremities. 10:46 Skin: Appearance: Color: normal in color. 10:46 Neuro: Orientation: is normal, Mentation: is normal, Memory: is normal. 10:46 Psych: Behavior/mood is anxious, uncooperative. Vital Signs: 09:25 BP 228 / 87; Pulse 63; Resp 18; Temp 97.6(O); Pulse Ox 100% on 4 lpm NC; Weight 74.84 tw2 kg; Pain 8/10; 10:36 BP 221 / 79; Pulse 62; Resp 17; Pulse Ox 98% on 4 lpm NC; tw2 11:24 BP 198 / 85; Pulse 64; Resp 17; Pulse Ox 100% on 4 lpm NC; tw2 12:29 BP 200 / 83; Pulse 66; Resp 17; Pulse Ox 100% on 4 lpm NC; tw2 13:14 BP 185 / 73; Pulse 63; Resp 17; Pulse Ox 100% on 4 lpm NC; tw2 14:05 BP 165 / 70; Pulse 54; Resp 17; Pulse Ox 98% on 4 lpm NC; tw2 MDM: 10:[address] [facility] 13:01 The patient was given aspirin in the Emergency Department. Data reviewed: vital signs, [facility] nurses notes, lab test result(s), EKG, radiologic studies, CT scan. Counseling: I had a detailed discussion with the patient and/or guardian regarding: the historical points, exam findings, and any diagnostic results supporting the discharge/admit diagnosis, lab results, radiology results, the need for further work-up and treatment in the hospital. Physician consultation: Venu Fernandez MD. ED course: The patient reports improved vision after administration of oral glucose. Symptoms most likely related to hypoglycemia. . 01/11 09:38 Order name: Basic Metabolic Panel; Complete Time: 11:20 [facility] 01/11 09:38 Order name: CBC with Diff; Complete Time: 10:44 [facility] 01/11 09:38 Order name: Ckmb; Complete Time: 11:20 [facility] 01/11 09:38 Order name: CPK; Complete Time: 11:20 [facility] 01/11 09:38 Order name: LFT's; Complete Time: 11:20 [facility] 01/11 09:38 Order name: Magnesium; Complete Time: 11:20 [facility] 01/11 09:38 Order name: NT PRO-BNP; Complete Time: 11:20 [facility] 01/11 09:38 Order name: PT-INR; Complete Time: 10:44 [facility] 01/11 09:38 Order name: Ptt, Activated; Complete Time: 10:44 [facility] 01/11 09:38 Order name: Troponin (emerg Dept Use Only); Complete Time: 11:03 [facility] 01/11 09:38 Order name: Lipase; Complete Time: 11:20 [facility] 01/11 12:54 Order name: CBC with Automated Diff [facility] 01/11 12:54 Order name: CBC with Automated Diff [facility] 01/11 12:54 Order name: Comprehensive Metabolic Panel [facility] 01/11 09:38 Order name: XRAY Chest (1 view); Complete Time: 10:44 [facility] 01/11 09:38 Order name: EKG; Complete Time: 09:39 [facility] 01/11 09:38 Order name: Cardiac monitoring; Complete Time: 09:40 [facility] 01/11 10:05 Order name: CT Head Brain wo Cont [facility] 01/11 10:47 Order name: Abdomen EDIN 01/11 12:16 Order name: Diet Ada 1800 Marv; Complete Time: 12:16 iw 01/11 12:54 Order name: CONS Physician Consult [facility] 01/11 12:54 Order name: Heart Healthy EDIN 01/11 12:54 Order name: Comprehensive Metabolic Panel [facility] 01/11 13:46 Order name: Urine Dipstick--Ancillary (enter results) ag 01/11 13:50 Order name: Urine Dipstick-Ancillary; Complete Time: 13:57 MS 01/11 09:38 Order name: EKG - Nurse/Tech; Complete Time: 09:40 [facility] 01/11 09:38 Order name: IV Saline Lock; Complete Time: 11:26 [facility] 01/11 09:38 Order name: Labs collected and sent; Complete Time: 11:26 [facility] 01/11 09:38 Order name: O2 Per Protocol; Complete Time: 11:26 [facility] 01/11 09:38 Order name: O2 Sat Monitoring; Complete Time: 11:26 [facility] 01/11 09:38 Order name: Urine Dipstick-Ancillary (obtain specimen); Complete Time: 13:57 jm Administered Medications: 10:07 Drug: Glucose Gel 15 grams Route: PO; tw2 10:36 Follow up: Response: Blood sugar is elevated tw2 11:26 Drug: Aspirin Chewable Tablet 324 mg Route: PO; tw2 12:02 Follow up: Response: No adverse reaction tw2 12:22 Drug: Bumex 1 mg Route: IVP; Site: right antecubital; tw2 13:14 Follow up: Response: No adverse reaction tw2 13:42 Drug: Zofran 4 mg Route: IVP; Site: right antecubital; tw2 14:06 Follow up: Response: No adverse reaction tw2 13:43 Drug: morphine 2 mg Route: IVP; Site: right antecubital; tw2 14:06 Follow up: Response: No adverse reaction; Pain is decreased tw2 Point of Care Testing: Blood Glucose: 09:31 Blood Glucose: 57 mg/dL; tw2 10:36 Blood Glucose: 100 mg/dL; tw2 11:24 Blood Glucose: 108 mg/dL; tw2 14:17 Blood Glucose: 88 mg/dL; tw2 09:31 provider notified. tw2 10:36 provider notified. tw2 Ranges: Critical Glucose Levels:Adult <50 mg/dl or >400 mg/dl <40 mg/dl or >180 mg/dl Disposition: 16:05 Co-signature as Attending Physician, Andreas Pal MD Available for consultation at ps1 all times. . Disposition: 01/11/18 13:04 Hospitalization ordered by Venu Fernandez for Inpatient Admission. Preliminary diagnosis are Systolic (congestive) heart failure, Unspecified abdominal pain. - Bed requested for Telemetry/MedSurg (Inpatient). - Status is Inpatient Admission. tw2 - Condition is Stable. - Problem is an acute exacerbation. - Symptoms are unchanged. UTI on Admission? No Signatures: Dispatcher [employer] EDMS Gerald Livingston PA PA jmm Gallardo, Ana ag Wise, Tara, RN RN tw2 Andreas Pal MD MD ps1 Corrections: (The following items were deleted from the chart) 12:56 09:30 The history from the nurse's notes was reviewed. nallely browning 14:02 13:04 Hospitalization Ordered by Venu Fernandez MD for Inpatient Admission. Preliminary ag diagnosis is Systolic (congestive) heart failure; Unspecified abdominal pain. Bed requested for Telemetry/MedSurg (Inpatient). Status is Inpatient Admission. Condition is Stable. Problem is an acute exacerbation. Symptoms are unchanged. UTI on Admission? No. [facility] 14:33 14:02 01/11/2018 13:04 Hospitalization Ordered by Venu Fernandez MD for Inpatient tw2 Admission. Preliminary diagnosis is Systolic (congestive) heart failure; Unspecified abdominal pain. Bed requested for Telemetry/MedSurg (Inpatient). Status is Inpatient Admission. Condition is Stable. Problem is an acute exacerbation. Symptoms are unchanged. UTI on Admission? No. ag
[2018-01-11] MEDS ORDERED: ONDANSETRON 4 MG/2 ML VIAL ONE (13:33)
[2018-01-11] MEDS ORDERED: MORPHINE 4 MG/ML SYR ONE (13:33)
[2018-01-11 13:50] LABS: Urine Blood 1+ (NEG); Urine Glucose NEGATIVE (NEG); Urine Protein 3+ (NEG); Urine Specific Gravity 1.025 (1.005-1.030); Urine pH 5.5 (5.0-7.0)
[2018-01-11] MEDS ORDERED: HYDRALAZINE HCL 20 MG/ML VIAL IV PRN (15:05)
[2018-01-11] MEDS ORDERED: HYDRALAZINE HCL 10 MG TABLET PO PRN (15:18)
[2018-01-11] MEDS ORDERED: D50W 25 GM/50 ML SYRINGE IV PRN (15:33)
[2018-01-11] MEDS ORDERED: GLUCAGON 1 MG/VIAL IM PRN (15:33)
[2018-01-11] MEDS ORDERED: cloNIDine HCl 0.1 MG TAB PO ONE (16:00)
[2018-01-11] MEDS: INSULIN -REGULAR HUMAN 50 UNIT/0.5 ML ML SQ SCH ×2 (16:30→21:00)
[2018-01-11] MEDS ORDERED: ENOXAPARIN 30 MG/0.3 ML SQ SCH (17:00)
[2018-01-11] MEDS ORDERED: HOME MED 1 EA UNK (Glipizide [Glipizide Er] 10 MG) PO SCH (17:00)
[2018-01-11] MEDS ORDERED: FUROSEMIDE 20 MG/ 2ML VIAL IV SCH (17:00)
[2018-01-11] MEDS ORDERED: GLIPIZIDE S.A. 5 MG TAB PO SCH (17:00)
[2018-01-11] MEDS ORDERED: HYDRALAZINE HCL 25 MG TABLET PO PRN (17:14)
[2018-01-11] MEDS ORDERED: METOPROLOL TAR 50 MG TAB PO SCH (21:00)
[2018-01-11] MEDS ORDERED: ATORVASTATIN 10 MG TAB PO SCH (21:00)
--- NOTE | 2018-01-11 21:28 | P.CNS ---
Date of Consult: 01/11/18 Reason for Consult: ALLYSON/ CKD Requesting Physician: Venu Fernandez Chief Complaint: Chest pain History of Present Illness: 77 yo HM CKD, DM presented to the ER with gradual, progressive, substernal CP in the setting of CAD & CHF with associated edema. He was last seen in the nephrology clinic in August with a serum creatinine of ~2. He did not follow up and then started taking Aleve regularly for abdominal pain and back pain. He reports finishing at least two bottles of Aleve over the past few months but then stopped approximately 4 weeks ago on the advice of a family member. No difficulty with urination. Reports chronic constipation without hematochezia or melena. Reports chronic LLQ pain that radiates to his left lower back. Case discussed with his family and the patient. The family translated. 09:30 This 77 yrs old Male presents to ER via EMS with complaints of Chest Pain > 30 jmm y/o, Abd Pain > 50 y/o. 09:30 The patient or guardian reports chest pain that is located primarily in the substernal jmm area. Onset: gradually, this morning at approx 4 am. The pain radiates to left back. Associated signs and symptoms: Pertinent positives: shortness of breath. The chest pain is described as aching. Duration: The patient or guardian reports a single episode, that is still ongoing. This is a 77 year old male with a history of chf, DM, HTN, CAD that presents to the ED with chest pain beginning at approx 4 am this morning. The patient also complained of right eye blurred vision and epigastric abdominal pain. The patient had a similar episode 1 month prior. Allergies aspirin Allergy (Verified 01/11/18 15:42) Nausea/Vomiting Home medications list reviewed: Yes Home Medications: Atorvastatin Calcium [Lipitor] 10 mg PO BEDTIME 12/15/17 Enalapril [Vasotec] 10 mg PO DAILY 12/15/17 Furosemide [Lasix] 20 mg PO DAILY 12/15/17 Glipizide [Glipizide ER] 10 mg PO BIDWM 12/15/17 Metoprolol Succinate [Toprol Xl] 50 mg PO DAILY 12/15/17 Acetaminophen [Acetaminophen Extra Strength] 500 mg PO Q6HR PRN 01/11/18 - Past Medical/Surgical History Diabetic: Yes -: Hypertension -: Coronary disease -: Diabetes mellitus type 2 -: Hyperlipidemia -: Chronic renal disease -: History of bilateral pleural effusion -: Anemia of chronic disease -: Anemia of chronic disease -: ND -: PULMONARY NODULE -: SHORTNESS OF BREATH -: Repair of left finger fracture -: CABG maybe three Psychosocial/ Personal History: He is 56 years, has 13 children, he does not work. - Family History Father History Unknown: Yes Medical History: GI disease Notes: none per pt - Social History Alcohol use: No CD- Drugs: No Caffeine use: No Place of Residence: Home Review of Systems 10-point ROS is otherwise unremarkable General: Weakness, Malaise Cardiovascular: Chest Pain, Edema Gastrointestinal: Abdominal Pain Musculoskeletal: Back Pain Physical Examination Temp Pulse Resp BP Pulse Ox 97.2 F 55 18 134/59 L 92 01/11/18 20:00 01/11/18 20:00 01/11/18 20:00 01/11/18 20:00 01/11/18 20:00 General: Alert, In no apparent distress, Oriented x3, Cooperative HEENT: Atraumatic, Normocephalic, Mucous membr. moist/pink Neck: Supple, JVD distended Respiratory: Clear to auscultation bilaterally Cardiovascular: Regular rate/rhythm, Edema (LLE>RLE), Systolic murmur (BL Carotid Bruit may be radiation from SM.) Gastrointestinal: Non-distended, Tenderness (LLQ) Musculoskeletal: No clubbing, No contractures, Other (Left CVA tenderness) Integumentary: No rashes, No cyanosis Neurological: Normal speech Laboratory Data (last 24 hrs) 01/11/18 10:19: PT 13.5 H, INR 1.14, APTT 31.9 01/11/18 10:19: WBC 7.0, Hgb 11.2 L, Hct 34.2 L, Plt Count 218 01/11/18 10:19: Sodium 140, Potassium 4.5, BUN 72 H, Creatinine 4.60 H, Glucose 58 L, Magnesium 1.9, Total Bilirubin 0.4, AST 13 L, ALT 23, Alkaline Phosphatase 86, Lipase 146 Imagings Data: EXAM DESCRIPTION: RAD - Chest Single View - 01/11/2018 10:06 am CLINICAL HISTORY: Chest pain, abdominal pain COMPARISON: December 26 TECHNIQUE: AP portable chest image was obtained 1004 hours . FINDINGS: Lung volumes are low. Cardiomegaly is present. Upper lobe vasculature is prominent. Left base opacification is present with pleural effusion. Trachea is midline. Sternotomy wires are in place. CABG surgical changes seen. No pneumothorax. No gross bony abnormality seen. No acute aortic findings suspected. IMPRESSION: CHF/volume overload findings are evident. Concurrent or superimposed left base pneumonia cannot be excluded. Overall chest findings are not substantially different from December 26. Conclusions/Impression: A/ ALLYSON likely due to recent chronic Aleve. CKD IV with proteinuria. DM II with CKD. HTN with CKD. Anemia in chronic illness. Diastolic CHF, A/C. LVEF 46%. Moderate . BPH/ LUTS. Bladder wall thickening. CAD/ CABG with PSM. Left pleural effusion. Left base opacification. P/ Continue current POC and Medications. Will consider diuresis to improve his volume status/ CHF. Start Vitamin D. Consider a carotid ultrasound for possible bruit. May benefit from a repeat echocardiogram. Low sodium diet. No NSAIDs. AM labs. Daily weight. Thank you kindly for the consultation.
--- NOTE | 2018-01-11 22:13 | EKG ---
Test Date: 2018-01-11 Test Time: 15:07:17 [place] Plater: RON MEASUREMENT RESULTS: Intervals: Rate: 55 [place]: 180 QRSD: 92 QT: 468 QTc: 447 [place]: P: 48 [place]: 180 QRS: -22 T: 156 INTERPRETIVE STATEMENTS: Sinus bradycardia Possible Left atrial enlargement Left ventricular hypertrophy with repolarization abnormality Anteroseptal infarct, age undetermined Abnormal ECG Compared to ECG 01/11/2018 09:26:53 Sinus rhythm no longer present Left-axis deviation no longer present Myocardial infarct finding still present Electronically Signed On 01-11-18 22:12:46 CDT by Raheel Zeng
--- NOTE | 2018-01-11 22:33 | CON ---
History Of Present Illness: Mr. Quarles is 77. He is admitted to the hospital under a 'do not resuscit ate' order, complaining mostly an abdominal pain, swelling, feeling lethargic. There is also headach e and the third complaint was chest pain. Apparently, he has chest pain a lot. He has been admitted to the hospital for chest pain a lot. Two years ago, he underwent bypass surgery. He had the cardi ac cath here. Following his bypass, he has had no other hospitalizations for an acute coronary syndr ome but he has been in for a lot of other things. Mr. Quarles has severe renal dysfunction; I think now he makes it into class 5 renal failure, creatinine is 4.6. He has some signs of uremia and I think it is very likely that all of his symptoms are due to uremia. Renal doctors have seen him every time he has been in the hospital, but he never sees them in an outpatient setting. 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 As an outpatient, Mr. Quarles takes metoprolol, furosemide 20 mg once a day, enalapril, atorvast atin, glipizide, he takes Tylenol as needed. He reports a drug allergy to aspirin. He has underlyin g diabetes, underlying coronary heart disease, and underlying renal insufficiency. I think the main reason I am seeing him is because his troponin is 0.32. The pain he has does not sound at all like t he unstable angina. With a creatinine of 4.6 and troponin of 3.2, he has a doubtful significance. W e will check some more troponins, do an echocardiogram, compare it to other echos before we really de cide to call this an acute coronary syndrome. His last echocardiogram was July of this year bennett mendoza the time he had the thoracentesis. Ejection fraction 40%, left ventricular hypertrophy, mitral gustabo ular calcification, moderate aortic stenosis, valve area 1.4 cm2. Physical Examination: General: The patient is alert, oriented, pleasant, quite argumentative. Vital Signs: His blood pressure is 212/82, O2 saturation 100%, temperature 97.2, heart rate 56. HEENT: He cannot see out of his left eye at all. The right eye has blurred vision. He does not rec ognize people or recognize voices. Lungs: The lungs reveal crackles. There are decreased breath sounds, especially on the left. Abdomen: Soft. Extremities: Mild edema. Distal pulses diminished, barely palpable. Laboratory Data: His chest x-ray shows a large left pleural effusion, a small right pleural effusion , and there is pulmonary edema, sternal wires from his prior bypass surgery. Impression: The patient's condition is a combination of heart and renal disease causing pulmonary pr oblems. It looks like there is pleural effusion and pulmonary edema. I think we should try some diu resis. It is very likely to result in worsening renal failure, so I will wait until the customer retention representative sees before ordering large amounts of diuresis. I suspect the patient needs to be on dialysis to [facility] to become normal and at this point there is no definite intention to begin hemodialysis. Thank you very much for your kind referral of Mr. Quarles. I will follow him with you. ALE Voice ID: [id number] Report ID: [id number]
--- NOTE | 2018-01-12 01:49 | HP ---
Date of Admission: 01/11/2018 Primary Care Physician: in [place]. Consultants: Dr. Jacobson with Nephrology, Dr. Zeng with Cardiology. Chief Complaint: Chest pain, abdominal distention. Code Status: DNR. History Of Present Illness: The patient is a 77-year-old male with past medical history of chronic kidney disease and was here on 12/14/2017 for volume overload, ascites, and abdominal pain, and again on 12/24/2017. The patient has past medical history of hypertension, coronary artery disease, diabetes, hyperlipidemia, chronic kidney disease, anemia, pulmonary nodule. Comes in with shortness of breath and chest pain and some abdominal distention and lower extremity edema. The patient's symptoms are constant, moderate, progressively worsening. No alleviating or aggravating factors. The patient states he has been compliant with his medications. Upon arrival to the ER, his vital signs showed elevated blood pressure 228/87. He was not given any blood pressure medications in the ER. He was given aspirin, Bumex, and then referred for admission for CHF overload. His BNP was greater than 35,000. His troponin was bumped at 3.32. White count was normal. Chest x-ray showed volume overload. The patient was seen in the ER. He was awake, alert, oriented x3, with mild distress. Past Medical History: Hypertension, chronic kidney disease, diabetes, coronary disease, hyperlipidemia, anemia of chronic disease, history of bilateral pleural effusion, history of MD, pulmonary nodule. Surgical History: Repair of left finger fracture, CABG 2 years ago. Allergies: NO KNOWN DRUG ALLERGIES. Medications: List reviewed. Social History: The patient is for 55 years. Has 13 children. Does not work. Requires significant assistance for his activities of daily living. Lives with his . Does not smoke or drink. Stopped smoking and drinking 15 years ago. Family History: Father had GI disease. Otherwise, the patient denies any history of family cancers, diabetes, or high blood pressure. Review of Systems: An 11-point system reviewed, negative except as per HPI. Physical Examination: Vital Signs: Temperature 97.6, heart rate 63, respirations 18, blood pressure 228/87, O2 100% on 4 L via nasal cannula. General: Awake, alert, oriented x3. Some mild distress. Elderly male, somewhat ill-appearing. HEENT: Normocephalic, atraumatic. PERRLA, EOMI. Dry mucous membranes. Oropharynx is clear. Conjunctivae anicteric. Poor dentition. Neck: Supple. Trachea midline. CV: S1 and S2. Regular rate and rhythm. Peripheral pulses weak bilaterally. Respiratory: Diminished breath sounds, right worse than left. Some crackles heard. No wheezing. No use of accessory muscles. Gastrointestinal: Abdomen is distended. Positive bowel sounds. No guarding or rigidity. Extremities: No clubbing, cyanosis. 2+ edema bilateral lower extremities. Neuro: Cranial nerves 2 through 12 intact grossly. No focal neurological deficit. Speech is normal. Strength is symmetric bilateral upper and lower extremities. Skin: No rashes. Normal skin turgor. Laboratory Data: Sodium 140, potassium 4.5, chloride 110, CO2 23, BUN 72, creatinine 4.6, glucose 58, calcium 8.8, magnesium 1.9, AST 13, ALT 23, troponin 0.32. BNP greater than 35,000. Lipase 146. INR 1.14. WBC 7, H and H 11.2/34.2, platelets 218, neutrophils 78%. UA: Negative nitrite, negative leukocyte esterase, 3+ protein. Chest x-ray shows CHF, volume overload findings were evident, concurrent or superimposed left base pneumonia cannot be excluded. Overall chest findings are not substantially different from December 26. Sternotomy wires in place. EKG shows sinus rhythm, rate of 63, left axis deviation. Assessment And Plan: A 77-year-old male with: 1. Acute congestive heart failure exacerbation. Echocardiogram from July 2017 shows EF of 46%, moderate aortic stenosis, left ventricular hypertrophy, mild global hypokinesis. 2. Hypertensive heart disease. 3. Moderate aortic stenosis. 4. Accelerated hypertension, uncontrolled. We will continue with IV medications to control blood pressure not improving. We will place on Cardene drip. There is a shortage of hydralazine in the hospital. The patient is bradycardic, not a good candidate for beta blockers such as labetalol at this time. 5. Elevated troponin level, likely secondary to uncontrolled blood pressure and congestive heart failure. EKG did not show any acute changes. 6. Chronic kidney disease with proteinuria. The patient does not follow up with any proposal development manager, seen Dr. Jacobson recently in December at the hospital. We will be cautious with diuresis at this time. Monitor creatinine. Avoid NSAIDs. 7. Anemia of chronic disease. H and H are stable. We will continue to monitor. 8. Diabetes mellitus type 2 with hyperglycemia without long-term use of insulin. We will continue sliding scale insulin. 9. Coronary artery disease status post coronary artery bypass graft, [place] artery and [place] heart with angina. 10. Chest pain, likely secondary to uncontrolled blood pressure and congestive heart failure. Doubt acute coronary syndrome. 11. Pulmonary nodule. 12. Hyperlipidemia. Continue statin. Plan: Admit the patient to Med-Surg, place as inpatient. GI, DVT prophylaxis with PPI and Lovenox renally dosed. Code status is do not resuscitate. No medical power of core man or living will discussed with family member who were present at the bedside. GARETT Voice ID: [id number] MTDD
[2018-01-12 04:18] LABS: Absolute Lymphocytes (CBC) 1.1 K/uL (0.7-4.9); Absolute Monocytes 0.4 K/uL (0.1-1.3); Absolute Neutrophil 2.9 K/uL (1.8-8.0); Basophils % 0.6 % (0-1.3); Eosinophils % 3.7 % (0-4.4); Hematocrit 27.7 % (39.6-49.0); MCH 31.7 pg (27.0-35.0); MCV 96.7 fL (80-100); MPV 8.4 fL (7.6-11.3); Monocytes % 9.3 % (3.3-12.3); RBC Red Blood Cell Count 2.86 M/uL (4.33-5.43)
[2018-01-12 04:30] LABS: Albumin 2.8 g/dL (3.4-5.0); Bilirubin Total 0.4 mg/dL (0.2-1.0); Phosphorus 6.2 mg/dL (2.5-4.9); Potassium 4.6 mmol/L (3.5-5.1); Protein, Total 6.3 g/dL (6.4-8.2); Uric Acid 6.7 mg/dL (3.5-7.2)
[2018-01-12 04:54] VITALS: TEMP 98.1
[2018-01-12 04:55] VITALS: BMI 23.0
[2018-01-12 06:01] LABS: Urine Appearance CLEAR; Urine Bilirubin NEGATIVE (NEG); Urine Blood NEGATIVE (NEG); Urine Color YELLOW; Urine Glucose NEGATIVE (NEG); Urine Protein 3+ (NEG); Urine Urobilinogen 0.2 mg/dL (0.2-1.0); Urine pH 5.5 (5.0-7.0)
[2018-01-12 06:22] LABS: Urine Protein/Creatinine Ratio 6.05 ratio (<0.15)
[2018-01-12 06:29] LABS: Urine Bacteria <20 /HPF (NONE SEEN); Urine Culture Reflex Order NOT NEEDED; Urine RBC <5 /HPF (NONE SEEN)
[2018-01-12] MEDS ORDERED: SEVELAMER CARBONATE 800 MG TABLET PO SCH (08:00)
[2018-01-12 08:14] VITALS: BP 168/64
[2018-01-12 08:21] VITALS: O2SAT 92
[2018-01-12] MEDS ORDERED: VITAMIN D 5,000 UNIT CAP PO SCH (09:00)
[2018-01-12] MEDS ORDERED: LISINOPRIL 10 MG TAB PO SCH (09:00)
[2018-01-12] MEDS ORDERED: CALCITROL 0.25 MCG CAP PO SCH (09:00)
--- NOTE | 2018-01-12 13:34 | CON ---
Date of Consultation: 01/12/2018 Mr. Blaise Quarles was admitted on 01/11/2018. I saw the patient on 01/12/2018. Reason For Consultation: Chest pain and congestive heart failure. History Of Present Illness: Mr. Quarles is a 77-year-old [place] male, known to us from previous office visit and admission. He has a history of coronary artery bypass surgery in October 2015, has a history of chronic renal disease, pulmonary nodule, chronic systolic congestive heart failure, diabe josé luis, hypertension, and anemia. He came in with some chest pain, shortness of breath, was found to gómez ve congestive heart failure and possible pneumonia on the chest x-ray. His EKG results showed left v entricular hypertrophy. Troponin was 0.32. He was hypertensive at 205/78, creatinine was 4.6. [place] BNP was 7[address]. He had a moderate aortic stenosis and ejection fraction of 46% in July of 2017. D enied PND, orthopnea, pedal edema, palpitations, or syncope. Allergies: TO ASPIRIN. Review of Systems: Negative. Social History: Negative for tobacco, alcohol, or drug use. Family History: Positive for heart disease and hypertension. Medications: His medications at home are supposed to be Vasotec, Lasix, Lipitor, metoprolol, and gli pizide. Physical Examination: General: Today, he is breathing comfortably, having no chest pain. He slept well. Vital Signs: Stable, afebrile. HEENT: Negative. Neck: Supple with bilateral carotid bruit probably radiation from the aortic stenosis. Abdomen: Benign. Extremities: Revealed no clubbing, cyanosis, or edema. Chest x-ray shows rales both bases. Cardiac exam showed a regular rhythm and rate with a 2/6 systoli c ejection murmur at the third right intercostal space radiating to the carotid. He has a positive S 4 gallops. Diagnostic Data: As stated earlier. Impression And Plan: 1.Acute exacerbation of chronic systolic congestive heart failure. 2.Moderate aortic stenosis. 3.Carotid bruit. 4.Coronary artery disease status post coronary artery bypass graft. 5.Acute renal insufficiency on chronic insufficiency. His other problems include hypertension, diab etes, chronic anemia, history of pulmonary nodule, and he is status post coronary artery bypass graft in the past. I agree with the present regimen and support of discontinuing Vasotec. I agree with u se of hydralazine on a regular basis rather than p.r.n. for his blood pressure. I think we need to d iurese him gently while watching his creatinine. I agree with getting a carotid Doppler. Dr. Jazmyne ko is following him along. I have no plan to repeat any coronary intervention or catheterization at t his point. Another echocardiogram is pending to see if his aortic stenosis or congestive heart failu re has worsened. Nevertheless, he is not a candidate for angiography with his present kidney dysfunc tion. Time was spent discussing the case with Dr. Jacobson and Dr. Fernandez and his nurse. He was educa yoli regarding the use of salt. As far as congestive heart failure is concerned, himself kelly han. 45 minutes was spent in the care of Mr. Quarles between reviewing his chart, seeing the patient. DEYSI/EB Voice ID: [id number] Report ID: [id number]
--- NOTE | 2018-01-12 19:53 | P.PN ---
Date of Service: 01/12/18 Vital Signs Temp Pulse Resp BP Pulse Ox 98.1 F 54 18 168/64 H 95 01/12/18 08:00 01/12/18 08:00 01/12/18 08:00 01/12/18 08:00 01/12/18 08:00 Assessment/ Plan: Nephrology. Doing well. CPS stable without CP or SOB. +TREADWELL No acute events overnight. Complaining of not getting enough food. Vitals, medications, blood work and imaging reviewed in the chart. General: Alert, In no apparent distress, Oriented x3, Cooperative HEENT: Atraumatic, Normocephalic, Mucous membr. moist/pink Neck: Supple, JVD distended Respiratory: Clear to auscultation bilaterally Cardiovascular: Regular rate/rhythm, Edema (LLE>RLE), Systolic murmur (BL Carotid Bruit may be radiation from SM.) Gastrointestinal: Non-distended, Tenderness (LLQ) Musculoskeletal: No clubbing, No contractures, Other (Left CVA tenderness) Integumentary: No rashes, No cyanosis Neurological: Normal speech Laboratory Data (last 24 hrs) 01/11/18 10:19: PT 13.5 H, INR 1.14, APTT 31.9 01/11/18 10:19: WBC 7.0, Hgb 11.2 L, Hct 34.2 L, Plt Count 218 01/11/18 10:19: Sodium 140, Potassium 4.5, BUN 72 H, Creatinine 4.60 H, Glucose 58 L, Magnesium 1.9, Total Bilirubin 0.4, AST 13 L, ALT 23, Alkaline Phosphatase 86, Lipase 146 Imagings Data: EXAM DESCRIPTION: RAD - Chest Single View - 01/11/2018 10:06 am CLINICAL HISTORY: Chest pain, abdominal pain COMPARISON: December 26 TECHNIQUE: AP portable chest image was obtained 1004 hours . FINDINGS: Lung volumes are low. Cardiomegaly is present. Upper lobe vasculature is prominent. Left base opacification is present with pleural effusion. Trachea is midline. Sternotomy wires are in place. CABG surgical changes seen. No pneumothorax. No gross bony abnormality seen. No acute aortic findings suspected. IMPRESSION: CHF/volume overload findings are evident. Concurrent or superimposed left base pneumonia cannot be excluded. Overall chest findings are not substantially different from December 26. Conclusions/Impression: A/ ALLYSON likely due to recent chronic Aleve. CKD IV with proteinuria. DM II with CKD. HTN with CKD. Anemia in chronic illness. Diastolic CHF, A/C. LVEF 46%. Moderate . BPH/ LUTS. Bladder wall thickening. CAD/ CABG with PSM. Left pleural effusion. Left base opacification. P/ Continue current POC and Medications. Start furosemide 40mg daily. Consider a carotid ultrasound for possible bruit. May benefit from a repeat echocardiogram. Follow up HBV panel. Low sodium diet. No NSAIDs. AM labs. Daily weight.
--- NOTE | 2018-01-13 04:38 | DS ---
Date of Discharge: 01/12/2018 Consultants: Dash Jacobson D.O., Nephrology; Raheel Zeng M.D. and Brandon Pérez M.D. with Cardiology. Discharge Diagnoses: 1. Acute congestive heart failure exacerbation, systolic dysfunction. 2. Hypertensive heart disease. 3. Moderate aortic stenosis. 4. Elevated hypertension. 5. Elevated troponin level. 6. Chronic kidney disease with proteinuria. 7. Anemia of chronic disease. 8. Diabetes mellitus type 2 without long-term use of insulin with hyperglycemia. 9. Coronary artery disease, status post coronary artery bypass graft, rosebud artery, rosebud heart with angina. 10. Chest pain. 11. Pulmonary nodule. 12. Hyperlipidemia. Hospital Course: The patient is a 77-year-old male with multiple comorbid conditions including chronic kidney disease, never follows up with Nephrology despite being seen here in the hospital by Nephrology; hypertension; coronary artery disease; diabetes; hyperlipidemia; anemia; pulmonary nodule; aortic stenosis; noncompliance, leaving AMA multiple times from the hospital, who comes in with chest pain and abdominal distention. The patient was found to have acute CHF exacerbation. He was started on CHF guidelines, however, he refused Lasix. He refused echocardiogram. He also refused carotid artery ultrasound. The patient did have some uncontrolled blood pressure for which he was given labetalol and hydralazine likely because of his chest tightness. He also has chronic kidney disease and has been told he would likely need dialysis in the future, however, never follows up with a parts room assistant. He also refused Lasix, and because of his lower extremity edema and anasarca, he was having abdominal distention. The patient was seen by Cardiology, Dr. Zeng as well as Nephrology, Dr. Jacobson, however, was not interested in anything related to his heart. He was more concerned regarding his abdominal distention. The following day, after he refused his medications, his ultrasound and echocardiogram, the patient decided to leave against medical advice. Family was present. He was counseled against leaving, however, felt that his concerns were not being addressed despite explaining to him that his main issues including his chest pain and his abdominal distention has been addressed and needs further workup. The patient then signed out AMA. Physical Examination: General: Awake, alert, oriented, elderly male, in no acute distress. CV: S1, S2. Respiratory: Diminished breath sounds. Gastrointestinal: Abdomen is soft, nontender, nondistended. Positive bowel sounds. Extremities: No clubbing, cyanosis. Pedal edema is present. Neurologic: Nonfocal. SA/MODL Voice ID: [id number] Report ID: [id number] MTDD
== END 2018-01-12 10:03 | disposition left against medical advice (07) | DRG 291 ==
LOC: ER 09:18 → ERHOLD 13:04 → 4TH 14:18
PROVIDERS: ADMIT Family Medicine; ATTEND Family Medicine
DX: I13.0 Hypertensive heart and chronic kidney disease with heart failure and stage 1 through stage 4 chronic kidney disease, or unspecified chronic kidney disease (principal); I50.23 Acute on chronic systolic (congestive) heart failure; N18.4 Chronic kidney disease, stage 4 (severe); N17.9 Acute kidney failure, unspecified; E11.22 Type 2 diabetes mellitus with diabetic chronic kidney disease; E11.65 Type 2 diabetes mellitus with hyperglycemia; I35.0 Nonrheumatic aortic (valve) stenosis; R74.8 Abnormal levels of other serum enzymes; D63.8 Anemia in other chronic diseases classified elsewhere; I25.119 Atherosclerotic heart disease of native coronary artery with unspecified angina pectoris; Z95.1 Presence of aortocoronary bypass graft; E78.5 Hyperlipidemia, unspecified; R91.1 Solitary pulmonary nodule; Z91.19 Patient's noncompliance with other medical treatment and regimen; R14.0 Abdominal distension (gaseous); N14.0 Analgesic nephropathy; T39.395A Adverse effect of other nonsteroidal anti-inflammatory drugs [NSAID], initial encounter; Y92.009 Unspecified place in unspecified non-institutional (private) residence as the place of occurrence of the external cause; N40.1 Benign prostatic hyperplasia with lower urinary tract symptoms; Z79.84 Long term (current) use of oral hypoglycemic drugs; Z88.6 Allergy status to analgesic agent; Z99.81 Dependence on supplemental oxygen
CPT/HCPCS: 36415; 71045; 80048; 80053; 80076; 81001; 81003; 82550; 82553; 82570; 82962; 83036; 83690; 83735; 83880; 84100; 84156; 84300; 84484; 84550; 85025; 85610; 85730; 93005; 94760; 96374; 96375; 99285; J1650; J1940; J2405

== ENCOUNTER 2018-01-18 09:20 | Emergency (ER) | payer OTHER ==
--- NOTE | 2018-01-18 09:57 | EDPHYS ---
Physician Documentation [facility] Name: Blaise Quarles Age: 77 yrs Sex: Male : 1940 Arrival Date: 01/18/2018 Time: 09:25 Bed 5 Private MD: ED Physician Matthew Casiano HPI: 01/18 09:40 This 77 yrs old Male presents to ER via Wheelchair with complaints of cp shortness of breath, chest pain. 09:40 The patient has shortness of breath at rest. Onset: The symptoms/episode began/occurred cp 30 minute(s) ago. Duration: The symptoms are continuous, and are steadily getting worse. Associated signs and symptoms: Pertinent positives: chest pain, abdominal pain. Severity of symptoms: in the emergency department the symptoms are unchanged. Daughter reports patient is prescribed oxygen but left oxygen tank at home. Historical: - Allergies: 09:30 No Known Allergies; sv - Home Meds: 09:30 atorvastatin 10 mg Oral tab 1 tab once daily [Active]; enalapril maleate 10 mg Oral tab sv 1 tab once daily [Active]; furosemide 20 mg Oral tab 1 tab once daily [Active]; glipizide 10 mg Oral tab 1 tab 2 times per day [Active]; metoprolol tartrate 50 mg Oral tab 1 tab once daily [Active]; - PMHx: 09:30 Anemia; CAD; chronic renal disease; Diabetes - IDDM; Hypertension; Myocardial sv infarction; pulmonary nodule; - PSHx: 09:31 open heart; sv ROS: 09:42 Eyes: Negative for injury, pain, redness, and discharge. cp 09:42 Constitutional: Negative for body aches, chills, fever, poor PO intake. 09:42 ENT: Negative for drainage from ear(s), ear pain, sore throat, difficulty swallowing, difficulty handling secretions. 09:42 Cardiovascular: Positive for chest pain, edema, Negative for palpitations. 09:42 Respiratory: Positive for shortness of breath, Negative for cough, hemoptysis, wheezing. 09:42 Abdomen/GI: Positive for abdominal pain, abdominal distension, Negative for vomiting, diarrhea, constipation, black/tarry stool, rectal bleeding. 09:42 Back: Negative for radiated pain. 09:42 Skin: Negative for cellulitis, rash. 09:42 Neuro: Negative for altered mental status, dizziness, headache, syncope, near syncope, weakness. 09:42 All other systems are negative. Exam: 09:38 ECG was reviewed by the Attending Physician. cp 09:51 Head/Face: Normocephalic, atraumatic. cp 09:51 Constitutional: The patient appears in no acute distress, alert, awake, non-diaphoretic, non-toxic, well developed, well nourished, uncomfortable. 09:51 Eyes: Periorbital structures: appear normal, Conjunctiva: normal, no exudate, no injection, Lids and lashes: appear normal, bilaterally. 09:51 ENT: External ear(s): are unremarkable, Nose: is normal, Mouth: is normal, Posterior pharynx: is normal, airway is patent, no erythema, no exudate. 09:51 Neck: ROM/movement: is normal, is supple, without pain, no range of motions limitations, no nuchal rigidity. 09:51 Chest/axilla: Inspection: midline surgical scar, Palpation: crepitus, is not appreciated, tenderness, that is moderate, of the anterior aspect of left upper chest and left breast. 09:51 Cardiovascular: Rate: normal, Rhythm: regular, Edema: mild bilateral lower legs, JVD: is not appreciated. 09:51 Respiratory: moderate respiratory distress is noted, Respirations: labored breathing, that is moderate, tachypnea, 32 09:51 Abdomen/GI: Inspection: abdomen appears normal, Palpation: soft, in all quadrants, moderate abdominal tenderness, in the left upper quadrant and left lower quadrant, rebound tenderness, is not appreciated, voluntary guarding, is elicited in the left upper quadrant and left lower quadrant. 09:51 Back: pain, is absent, ROM is normal. 09:51 Skin: cellulitis, is not appreciated, no rash present. 09:51 Neuro: Orientation: to person, place \T\ time. Mentation: lucid, able to follow commands, Cerebellar function: is grossly normal, Motor: moves all fours, strength is normal, Sensation: no obvious gross deficits. Vital Signs: 09:31 BP 191 / 88; Pulse 61; Resp 32; Pulse Ox 98% on R/A; Height 5 ft. 5 in. (165.10 cm); sv MDM: 09:38 Patient medically screened. cp 09:56 Data reviewed: vital signs, nurses notes, EKG. Refusal of service: The patient/guardian cp displays adequate decision making capability and despite a detailed discussion of alternatives, benefits, risks, and consequences refuses: all lab tests, Patient requesting use of supplemental oxygen and to leave ED w/o further testing. 01/18 09:32 Order name: EKG; Complete Time: 09:32 01/18 09:32 Order name: EKG - Nurse/Tech 01/18 09:39 Order name: Cardiac monitoring 01/18 09:39 Order name: IV Saline Lock 01/18 09:39 Order name: Labs collected and sent 01/18 09:39 Order name: O2 Per Protocol 01/18 09:39 Order name: O2 Sat Monitoring 01/18 09:39 Order name: Urine Dipstick-Ancillary (obtain specimen) EC:38 Rate is 61 beats/min. Rhythm is regular. OH interval is normal. QRS interval is normal. cp QT interval is normal. T waves are Inverted in leads I, aVL, V5, V6. Interpreted by me. Reviewed by me. Administered Medications: No medications were administered Disposition: 11:54 Co-signature as Attending Physician, Matthew Casiano MD I agree with the assessment and kdr plan of care. Disposition: 01/18/18 09:57 Patient has left against medical advice. - Patients states they are going to Home. - Condition is Undetermined. Signatures: Dispatcher [employer] Jemima Anderson RN RN sv Rittger, Kevin, MD MD [facility] Nataly Hercules RN RN aa5 Ron Ochoa PA PA cp Baxter, Heather, RN RN hb Corrections: (The following items were deleted from the chart) 09:58 09:57 01/18/2018 09:57 Patients has left against medical advice. Patient states they hb are going to Home. Condition is Undetermined. aa5
--- NOTE | 2018-01-18 09:57 | ER ---
Nurse's Notes [facility] Name: Blaise Quarles Age: 77 yrs Sex: Male : 1940 Arrival Date: 01/18/2018 Time: :25 Bed 5 Private MD: Diagnosis: Presentation: 01/18 09:22 Presenting complaint: Child states: SOB and left sided CP that started today. c/o sv headache. Transition of care: patient was not received from another setting of care. Onset of symptoms was January 18, 2018. Care prior to arrival: None. : Method Of Arrival: Wheelchair sv 09:22 Acuity: SARATH 3 sv Historical: - Allergies: : No Known Allergies; sv - Home Meds: :30 atorvastatin 10 mg Oral tab 1 tab once daily [Active]; enalapril maleate 10 mg Oral tab sv 1 tab once daily [Active]; furosemide 20 mg Oral tab 1 tab once daily [Active]; glipizide 10 mg Oral tab 1 tab 2 times per day [Active]; metoprolol tartrate 50 mg Oral tab 1 tab once daily [Active]; - PMHx: 09:30 Anemia; CAD; chronic renal disease; Diabetes - IDDM; Hypertension; Myocardial sv infarction; pulmonary nodule; - PSHx: 09:31 open heart; sv Assessment: 09:40 Reassessment: Pt states he wants to leave ER now. Pt states "I only came here to get aa5 some oxygen". Pt was encouraged by me and PA to stay and be examined further and for lab test to be completed. Pt states "I don't want anything else done to me, I am just tired of coming here". When asked if pt has home O2, pt states "Yes, I have oxygen at home but I just came here because I was on my way to the doctor's office and started getting short of breath so it was faster to come here for the oxygen". . Vital Signs: :31 BP 191 / 88; Pulse 61; Resp 32; Pulse Ox 98% on R/A; Height 5 ft. 5 in. (165.10 cm); sv ED Course: :25 Patient arrived in ED. iw 09:26 Ron Ochoa PA is PHCP. cp 09:26 Matthew Casiano MD is Attending Physician. cp 09:28 Triage completed. sv 09:31 Arm band placed on right wrist. Patient placed in an exam room, on a stretcher, on sv oxygen. 09:38 EKG done, by pump technician. reviewed by Ron POWELL. at1 Administered Medications: No medications were administered Outcome: 09:50 AMA Other AMA form signed by daughter. Pt states "I have really bad vision so I can't aa5 sign it". 09:58 Patient left the ED. hb Signatures: Jemima Romero, Rosibel Spears RN, RN RN iw Nataly Hercules RN RN aa5 Juliana martinez, business mgr EKG Tat1 Ron Ochoa PA PA cp Baxter, Heather RN RN hb
[2018-01-18 10:02] VITALS: BP 191/88; O2SAT 98
--- NOTE | 2018-01-18 10:42 | EKG ---
Test Date: 2018-01-18 Test Time: 09:30:45 Field Project Manager: RON MEASUREMENT RESULTS: Intervals: Rate: 61 CT: 172 QRSD: 96 QT: 444 QTc: 446 [place]: P: 51 CT: 172 QRS: -32 T: 134 INTERPRETIVE STATEMENTS: Sinus rhythm with occasional premature ventricular complexes Possible Left atrial enlargement Left axis deviation Left ventricular hypertrophy with repolarization abnormality Cannot rule out Septal infarct, age undetermined Inferior infarct, age undetermined Abnormal ECG Compared to ECG 01/11/2018 15:07:17 Ventricular premature complex(es) now present Left-axis deviation now present Sinus bradycardia no longer present Myocardial infarct finding still present Electronically Signed On 01-18-18 10:41:56 CDT by Raheel Zeng
== END 2018-01-18 09:58 | disposition left against medical advice (07) ==
LOC: ER 09:20
DX: Z53.21 Procedure and treatment not carried out due to patient leaving prior to being seen by health care provider (principal); I12.9 Hypertensive chronic kidney disease with stage 1 through stage 4 chronic kidney disease, or unspecified chronic kidney disease; E11.22 Type 2 diabetes mellitus with diabetic chronic kidney disease; N18.9 Chronic kidney disease, unspecified; Z79.4 Long term (current) use of insulin; I25.2 Old myocardial infarction
CPT/HCPCS: 93005; 99284

== ENCOUNTER 2018-01-25 14:05 | Emergency (ER) | payer OTHER ==
[2018-01-25] MEDS ORDERED: MORPHINE 4 MG/ML SYR ONE (14:47)
[2018-01-25] MEDS ORDERED: ONDANSETRON 4 MG/2 ML VIAL ONE (14:47)
[2018-01-25 15:04] LABS: Absolute Lymphocytes (CBC) 0.6 K/uL (0.7-4.9); Absolute Monocytes 0.3 K/uL (0.1-1.3); Absolute Neutrophil 5.3 K/uL (1.8-8.0); Basophils % 0.6 % (0-1.3); Eosinophils % 0.2 % (0-4.4); Hematocrit 33.1 % (39.6-49.0); Lymphocytes % 9.1 % (15.3-44.8); MCV 94.8 fL (80-100); MPV 9.4 fL (7.6-11.3); Monocytes % 5.6 % (3.3-12.3); RBC Red Blood Cell Count 3.49 M/uL (4.33-5.43)
[2018-01-25] MEDS ORDERED: FUROSEMIDE 20 MG/ 2ML VIAL ONE (15:05)
[2018-01-25] MEDS ORDERED: FUROSEMIDE 100 MG/10 ML VIAL IV ONE (15:05)
[2018-01-25] MEDS ORDERED: NITROGLYCERIN 1 GM PKT TD ONE (15:05)
--- NOTE | 2018-01-25 15:15 | EKG ---
Test Date: 2018-01-25 Test Time: 14:42:30 Department Head: CHEY MEASUREMENT RESULTS: Intervals: Rate: 59 AR: 192 QRSD: 94 QT: 452 QTc: 447 [place]: P: 64 AR: 192 QRS: -25 T: 145 INTERPRETIVE STATEMENTS: Sinus bradycardia Possible Left atrial enlargement Anteroseptal infarct, age undetermined ST & T wave abnormality, consider lateral ischemia Abnormal ECG Compared to ECG 01/18/2018 09:30:45 ST (T wave) deviation now present Possible ischemia now present Sinus rhythm no longer present Ventricular premature complex(es) no longer present Left-axis deviation no longer present Left ventricular hypertrophy no longer present Early repolarization no longer present Myocardial infarct finding still present Electronically Signed On 01-25-18 15:14:39 CDT by Raheel Zeng
[2018-01-25 15:30] LABS: Protime INR 1.19
[2018-01-25 15:32] LABS: Albumin 3.4 g/dL (3.4-5.0); Bilirubin Direct 0.2 mg/dL (0-0.2); Bilirubin Total 0.4 mg/dL (0.2-1.0); CKMB Creatine Kinase MB 7.4 ng/mL (0.3-3.6); Potassium 4.9 mmol/L (3.5-5.1); Protein, Total 7.5 g/dL (6.4-8.2)
[2018-01-25 15:34] LABS: Urine Blood 1+ (NEG); Urine Glucose NEGATIVE (NEG); Urine Protein 3+ (NEG); Urine pH 5.5 (5.0-7.0)
--- NOTE | 2018-01-25 16:06 | RAD REPORT ---
EXAM DESCRIPTION: RAD - Chest Single View - 01/25/2018 4:00 pm CLINICAL HISTORY: Shortness of breath, abdominal pain COMPARISON: January 11 TECHNIQUE: AP portable chest image was obtained 1548 hours . FINDINGS: Patient has chronic interstitial lung disease. Overall prominence of the interstitial eliane ings is improved slightly from the comparison. Upper lobe vasculature is less pronounced. 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 This is not clearly different. Minimal righ t costophrenic angle blunting also seen as stable. No new or progressive right lung field finding. Ca rdiac silhouette is enlarged but stable. No pneumothorax. No gross bony abnormality seen. No acute ao rtic findings suspected. IMPRESSION: Chronic left base pleural and parenchymal opacification stable from comparison. Cardiac silhouette is enlarged but without vascular engorgement seen previously.
--- NOTE | 2018-01-25 16:57 | EDPHYS ---
Physician Documentation [facility] Name: Blaise Quarles Age: 77 yrs Sex: Male : 1940 Arrival Date: 01/25/2018 Time: 14:18 Bed 24 Private MD: ED Physician Ron Viveros HPI: 01/25 14:29 This 77 yrs old Male presents to ER via Unassigned with complaints of sob , yoni lower abdominal pain. 14:29 The patient has shortness of breath at rest, with light activity, that woke him/her yoni from sleep. Onset: The symptoms/episode began/occurred 3 day(s) ago. Duration: The symptoms are continuous, and are steadily getting worse. The patient's shortness of breath is aggravated by exertion, supine position, is alleviated by elevating head, pursed lip breathing, rest, sitting up, application of supplemental oxygen. The patient presents with abdominal distention in the lower abdomen. Onset: The symptoms/episode began/occurred 3 day(s) ago. Associated signs and symptoms: The patient has no apparent associated signs or symptoms. Historical: - Home Meds: 15:40 metoprolol tartrate 50 mg Oral tab 1 tab once daily [Active]; bumetanide 0.5 mg Oral tl3 tab 1 tab once daily [Active]; glipizide 10 mg Oral tab 1 tab 2 times per day [Active]; tramadol 37.5mg oral tab 1 cap for Pain [Active]; cephalexin 500 mg Oral cap 1 cap every 12 hours [Active]; doxycycline hyclate 100 mg Oral cap 1 cap every 12 hours [Active]; atorvastatin 10 mg Oral tab 1 tab once daily [Active]; enalapril maleate 10 mg Oral tab 1 tab once daily [Active]; - PMHx: 15:40 Anemia; CAD; chronic renal disease; Diabetes - IDDM; Hypertension; Myocardial tl3 infarction; pulmonary nodule; 15:49 Visually impared; tl3 - PSHx: 15:40 open heart; tl3 - Immunization history:: Adult Immunizations up to date. - Social history:: Smoking status: Patient/guardian denies using tobacco, never smoked. - Family history:: not pertinent. - Ebola Screening: : No symptoms or risks identified at this time. ROS: 14:29 Constitutional: Negative for fever, chills, and weight loss, Eyes: Negative for injury, yoni pain, redness, and discharge, ENT: Negative for injury, pain, and discharge, Neck: Negative for injury, pain, and swelling, Cardiovascular: Negative for chest pain, palpitations, and edema, Back: Negative for injury and pain, : Negative for injury, bleeding, discharge, and swelling, MS/Extremity: Negative for injury and deformity, Skin: Negative for injury, rash, and discoloration, Neuro: Negative for headache, weakness, numbness, tingling, and seizure, Psych: Negative for depression, anxiety, suicide ideation, homicidal ideation, and hallucinations, Allergy/Immunology: Negative for hives, rash, and allergies, Endocrine: Negative for neck swelling, polydipsia, polyuria, polyphagia, and marked weight changes. 14:29 Respiratory: Positive for cough, dyspnea on exertion, orthopnea, shortness of breath. 14:29 Abdomen/GI: Positive for abdominal distension, of the right lower quadrant and left lower quadrant. Exam: 14:29 Constitutional: This is a well developed, well nourished patient who is awake, alert, yoni and in no acute distress. Head/Face: Normocephalic, atraumatic. Eyes: Pupils equal round and reactive to light, extra-ocular motions intact. Lids and lashes normal. Conjunctiva and sclera are non-icteric and not injected. Cornea within normal limits. Periorbital areas with no swelling, redness, or edema. ENT: Nares patent. No nasal discharge, no septal abnormalities noted. Tympanic membranes are normal and external auditory canals are clear. Oropharynx with no redness, swelling, or masses, exudates, or evidence of obstruction, uvula midline. Mucous membranes moist. Neck: Trachea midline, no thyromegaly or masses palpated, and no cervical lymphadenopathy. Supple, full range of motion without nuchal rigidity, or vertebral point tenderness. No Meningismus. Chest/axilla: Normal chest wall appearance and motion. Nontender with no deformity. No lesions are appreciated. Cardiovascular: Regular rate and rhythm with a normal S1 and S2. No gallops, murmurs, or rubs. Normal PMI, no JVD. No pulse deficits. Respiratory: Lungs have equal breath sounds bilaterally, clear to auscultation and percussion. No rales, rhonchi or wheezes noted. No increased work of breathing, no retractions or nasal flaring. Back: No spinal tenderness. No costovertebral tenderness. Full range of motion. Male : Normal genitalia with no discharge or lesions. Skin: Warm, dry with normal turgor. Normal color with no rashes, no lesions, and no evidence of cellulitis. MS/ Extremity: Pulses equal, no cyanosis. Neurovascular intact. Full, normal range of motion. Neuro: Awake and alert, GCS 15, oriented to person, place, time, and situation. Cranial nerves II-XII grossly intact. Motor strength 5/5 in all extremities. Sensory grossly intact. Cerebellar exam normal. Normal gait. Psych: Awake, alert, with orientation to person, place and time. Behavior, mood, and affect are within normal limits. 14:29 Abdomen/GI: Inspection: distension, Bowel sounds: normal, Palpation: mild abdominal tenderness, in all quadrants, Liver: no appreciated palpable abnormalities, Hernia: not appreciated. Vital Signs: 15:23 BP 184 / 73; Pulse 57; Resp 18; Temp 98.5; Pulse Ox 100% on 3 lpm NC; Pain 0/10; mg2 15:40 BP 170 / 77; Pulse 55; Resp 20; Pulse Ox 100% 2 lpm ; tl3 17:34 BP 191 / 87; Pulse 57; Resp 20; Pulse Ox 100% on 3 lpm NC; Pain 0/10; mg2 MDM: 14:23 Patient medically screened. [facility] 14:31 Data reviewed: vital signs, nurses notes, lab test result(s), EKG, radiologic studies, [facility] CT scan, plain films. 01/25 14:28 Order name: Basic Metabolic Panel; Complete Time: 16:48 [facility] 01/25 14:28 Order name: CBC with Diff; Complete Time: 16:48 [facility] 01/25 14:28 Order name: Ckmb; Complete Time: 16:48 [facility] 01/25 14:28 Order name: CPK; Complete Time: 16:48 [facility] 01/25 14:28 Order name: LFT's; Complete Time: 16:48 [facility] 01/25 14:28 Order name: Magnesium; Complete Time: 16:48 [facility] 01/25 14:28 Order name: NT PRO-BNP; Complete Time: 16:48 01/25 14:28 Order name: PT-INR; Complete Time: 16:48 [facility] 01/25 14:28 Order name: Ptt, Activated; Complete Time: 16:48 [facility] 01/25 14:28 Order name: Troponin (emerg Dept Use Only); Complete Time: 16:48 [facility] 01/25 14:28 Order name: XRAY Chest (1 view); Complete Time: 16:48 [facility] 01/25 15:19 Order name: Urine Dipstick--Ancillary (enter results); Complete Time: 16:48 01/25 14:28 Order name: EKG; Complete Time: 14:29 [facility] 01/25 14:28 Order name: Cardiac monitoring; Complete Time: 15:13 [facility] 01/25 14:28 Order name: EKG - Nurse/Tech; Complete Time: 15:13 [facility] 01/25 14:28 Order name: IV Saline Lock; Complete Time: 15:13 [facility] 01/25 14:28 Order name: Labs collected and sent; Complete Time: 15:13 [facility] 01/25 14:28 Order name: O2 Per Protocol; Complete Time: 15:13 [facility] 01/25 16:52 Order name: Echo w/ Doppler [facility] 01/25 17:04 Order name: CONS Physician Consult [facility] 01/25 17:04 Order name: CONS Physician Consult [facility] 01/25 17:10 Order name: US Rp Exam Complete [facility] 01/25 14:28 Order name: O2 Sat Monitoring; Complete Time: 15:13 [facility] 01/25 14:28 Order name: Urine Dipstick-Ancillary (obtain specimen); Complete Time: 15:13 [facility] Administered Medications: 14:50 Drug: morphine 4 mg Route: IVP; Infused Over: 3 mins; Site: right forearm; tl3 15:45 Follow up: Response: No adverse reaction; Pain is decreased tl3 14:50 Drug: Zofran 4 mg Route: IVP; Site: right forearm; tl3 15:44 Follow up: Response: No adverse reaction tl3 18:28 Follow up: Response: No adverse reaction; Nausea is decreased mg2 15:00 Drug: Nitro-Bid Ointment 2 % 1 inches Route: Transdermal; Site: anterior chest wall; tl3 15:45 Follow up: Response: No adverse reaction tl3 15:10 Drug: Lasix 60 mg Route: IVP; Infused Over: 3 mins; Site: right forearm; tl3 15:45 Follow up: Response: No adverse reaction tl3 17:49 Not Given (Patient Refused): Aspirin Chewable Tablet 162 mg PO once mg2 17:49 Not Given (Patient Refused): Lovenox 30 mg Sub-Q once mg2 Disposition: 01/25/18 18:21 Patient has left against medical advice. Impression: Essential (primary) hypertension, Dyspnea, Unspecified combined systolic (congestive) and diastolic (congestive) heart failure, Chronic obstructive pulmonary disease with (acute) exacerbation, Hypoxemia, Unspecified kidney failure. - Patients states they are going to Home. - Condition is Critical. Follow up: Private Physician; When: Upon discharge from the Emergency Department; Reason: Recheck today's complaints, Continuance of care, Re-evaluation by your physician. - Problem is an ongoing problem. - Symptoms are unchanged. Signatures: Dispatcher [employer] EDDE Ron Viveros MD MD cha Lowrey, Tammy RN RN tl3 Cameron Iniguez RN RN mg2 Corrections: (The following items were deleted from the chart) 15:09 14:28 Yusuf ordered. yoni 3 15:10 14:29 BiPap ([employer] Only)+[id number] ordered. [facility] 18:19 16:56 Hospitalization Ordered by Venu Fernandez MD for Inpatient Admission. Preliminary [facility] diagnosis is Cardiomegaly; Unspecified combined systolic (congestive) and diastolic (congestive) heart failure; Acute kidney failure; Type 1 diabetes mellitus. Bed requested for Telemetry/MedSurg (Inpatient). Status is Inpatient Admission. Condition is Fair. Problem is new. Symptoms have improved. UTI on Admission? No. yoni 18:29 18:21 01/25/2018 18:21 Patients has left against medical advice. Impression: Essential mg2 (primary) hypertension; Dyspnea; Unspecified combined systolic (congestive) and diastolic (congestive) heart failure; Chronic obstructive pulmonary disease with (acute) exacerbation; Hypoxemia; Unspecified kidney failure. Patient states they are going to Home. Condition is Critical. Follow up: Private Physician; When: Upon discharge from the Emergency Department; Reason: Recheck today's complaints, Continuance of care, Re-evaluation by your physician. Problem is an ongoing problem. Symptoms are unchanged. yoni
--- NOTE | 2018-01-25 16:57 | ER ---
Nurse's Notes [facility] Name: Blaise Quarles Age: 77 yrs Sex: Male : 1940 Arrival Date: 01/25/2018 Time: 14:18 Bed 24 Private MD: Diagnosis: Essential (primary) hypertension;Dyspnea;Unspecified combined systolic (congestive) and diastolic (congestive) heart failure;Chronic obstructive pulmonary disease with (acute) exacerbation;Hypoxemia;Unspecified kidney failure Presentation: 01/25 14:15 Presenting complaint: Presenting complaint: EMS states: reports pt called due to SOB, tl3 on home O2, reported pt has not taken his lasix, pt is grunting with breathing and is saying his abdomen is swollen. 14:15 Transition of care: patient was not received from another setting of care. Onset of tl3 symptoms was January 25, 2018 at 15:32. Risk Assessment: Do you want to hurt yourself or someone else? Patient reports no desire to harm self or others. Initial Sepsis Screen: Does the patient meet any 2 criteria? No. Patient's initial sepsis screen is negative. Does the patient have a suspected source of infection? No. Patient's initial sepsis screen is negative. Care prior to arrival: None. 14:15 Method Of Arrival: EMS: [facility] tl3 14:15 Acuity: SARATH 3 tl3 Triage Assessment: 15:40 General: Appears distressed, uncomfortable, well groomed, well developed, well tl3 nourished, Behavior is agitated, anxious. Pain: Complains of pain in left lower quadrant and right lower quadrant. EENT: No signs and/or symptoms were reported regarding the EENT system. Neuro: Level of Consciousness is awake, alert, obeys commands, Oriented to person, place, time, situation, Appropriate for age. Cardiovascular: Heart tones S1 S2 present Patient's skin is warm and dry. Respiratory: Airway is patent Respiratory effort is even, unlabored, Respiratory pattern is regular, symmetrical, Breath sounds are clear bilaterally. GI: Abdomen is distended, Bowel sounds present X 4 quads. : Urine is clear. Derm: Wound noted right leg. Musculoskeletal: No signs and/or symptoms reported regarding the musculoskeletal system. Historical: - Home Meds: 15:40 metoprolol tartrate 50 mg Oral tab 1 tab once daily [Active]; bumetanide 0.5 mg Oral tl3 tab 1 tab once daily [Active]; glipizide 10 mg Oral tab 1 tab 2 times per day [Active]; tramadol 37.5mg oral tab 1 cap for Pain [Active]; cephalexin 500 mg Oral cap 1 cap every 12 hours [Active]; doxycycline hyclate 100 mg Oral cap 1 cap every 12 hours [Active]; atorvastatin 10 mg Oral tab 1 tab once daily [Active]; enalapril maleate 10 mg Oral tab 1 tab once daily [Active]; - PMHx: 15:40 Anemia; CAD; chronic renal disease; Diabetes - IDDM; Hypertension; Myocardial tl3 infarction; pulmonary nodule; 15:49 Visually impared; tl3 - PSHx: 15:40 open heart; tl3 - Immunization history:: Adult Immunizations up to date. - Social history:: Smoking status: Patient/guardian denies using tobacco, never smoked. - Family history:: not pertinent. - Ebola Screening: : No symptoms or risks identified at this time. Screenin:47 Abuse screen: Denies threats or abuse. Denies injuries from another. Nutritional mg2 screening: No deficits noted. Tuberculosis screening: No symptoms or risk factors identified. Fall Risk IV access (20 points). Assessment: 15:28 General: Appears in no apparent distress. comfortable, Behavior is calm, cooperative. mg2 Pain: Denies pain. Neuro: Level of Consciousness is awake, alert, obeys commands, Oriented to person, place, time. Cardiovascular: Capillary refill < 3 seconds Patient's skin is warm and dry. Respiratory: Airway is patent Respiratory effort is even, unlabored, Respiratory pattern is regular, symmetrical. GI: Abdomen is round distended, Reports lower abdominal pain, upper abdominal pain. EENT: No signs and/or symptoms were reported regarding the EENT system. Derm: Skin is thin, has lesions on right lower leg Skin is pink, warm \T\ dry. normal, mild edema on both feet. Musculoskeletal: No signs and/or symptoms reported regarding the musculoskeletal system. 15:47 Reassessment: No changes from previously documented assessment. Patient is alert, tl3 oriented x 3, equal unlabored respirations, skin warm/dry/pink. family at bedside, pt is blind. 17:27 Reassessment: Patient appears in no apparent distress at this time. Patient is alert, mg2 oriented x 3, equal unlabored respirations, skin warm/dry/pink. patient refused bipap and medications. 18:25 Reassessment: patient refused admission and wants to go home. risk explained and mg2 understood by him as per the daughter. fernando form signed by the daughter. Vital Signs: 15:23 BP 184 / 73; Pulse 57; Resp 18; Temp 98.5; Pulse Ox 100% on 3 lpm NC; Pain 0/10; mg2 15:40 BP 170 / 77; Pulse 55; Resp 20; Pulse Ox 100% 2 lpm ; tl3 17:34 BP 191 / 87; Pulse 57; Resp 20; Pulse Ox 100% on 3 lpm NC; Pain 0/10; mg2 ED Course: 14:18 Patient arrived in ED. iw 14:23 Ron Viveros MD is Attending Physician. yoni 14:31 Lisa Adan RN is Primary Nurse. tl3 14:[address] mw3 14:45 Inserted saline lock: 20 gauge in right forearm, using aseptic technique. by HUONG Gonzalez. tl3 14:47 EKG done, by cable television technician. reviewed by Ron Viveros MD. sm3 14:56 Radiology exam delayed due to CT. jr1 15:04 Radiology exam delayed due to PT unable to lay down flat for exam at this time. mw3 15:33 Triage completed. tl3 15:40 No provider procedures requiring assistance completed. Inserted. tl3 15:40 Arm band placed on right wrist. tl3 15:48 Patient has correct armband on for positive identification. Placed in gown. Bed in low mg2 position. Call light in reach. Side rails up X 1. Door closed. Warm blanket given. 15:56 X-ray completed. Portable x-ray completed in exam room. Patient tolerated procedure mh1 well. 15:57 XRAY Chest (1 view) In Process Unspecified. EDMS 16:19 Note: Patient brought down to CT, patient refusing to lay down for exam. patient taken nj back down to room 24 and notified Lisa Santoro . 16:55 Venu Fernandez MD is Hospitalizing Provider. yoni 17:40 Note: attempted to do ultrasound. patient refused exam. Dr. Viveros notified. . aa4 18:28 IV discontinued, intact, bleeding controlled, No redness/swelling at site. Pressure mg2 dressing applied. Administered Medications: 14:50 Drug: morphine 4 mg Route: IVP; Infused Over: 3 mins; Site: right forearm; tl3 15:45 Follow up: Response: No adverse reaction; Pain is decreased tl3 14:50 Drug: Zofran 4 mg Route: IVP; Site: right forearm; tl3 15:44 Follow up: Response: No adverse reaction tl3 18:28 Follow up: Response: No adverse reaction; Nausea is decreased mg2 15:00 Drug: Nitro-Bid Ointment 2 % 1 inches Route: Transdermal; Site: anterior chest wall; tl3 15:45 Follow up: Response: No adverse reaction tl3 15:10 Drug: Lasix 60 mg Route: IVP; Infused Over: 3 mins; Site: right forearm; tl3 15:45 Follow up: Response: No adverse reaction tl3 17:49 Not Given (Patient Refused): Aspirin Chewable Tablet 162 mg PO once mg2 17:49 Not Given (Patient Refused): Lovenox 30 mg Sub-Q once mg2 Outcome: 16:56 Decision to Hospitalize by Provider. yoni 18:29 Patient left the ED. mg2 Signatures: Dispatcher [employer] EDMS Ron Viveros MD MD cha Harvey, Martha 1 Marion Richards jr1 Rosibel Acosta RN RN iw Frazier, Amanda aa4 Fran Sweeney Tammy, RN RN tl3 Cameron Iniguez RN RN mg2 Xochitl Clayton 3 Donita Coffman mw3 Corrections: (The following items were deleted from the chart) 15:33 15:28 Presenting complaint: mg2 tl3 15:50 15:48 Inserted saline lock: 20 gauge in right forearm, using aseptic technique. by HUONG Gonzalez mg2 15:50 15:40 BP 184 / 73; Pulse 55bpm; Resp 20bpm; Pulse Ox 100% 2 lpm; tl3 tl3
[2018-01-25] MEDS ORDERED: ASPIRIN 81 MG CHEWABLE TABLET ONE (17:11)
[2018-01-25] MEDS ORDERED: ENOXAPARIN 30 MG/0.3 ML SQ ONE (17:11)
[2018-01-25] MEDS ORDERED: ONDANSETRON 4 MG/2 ML VIAL IV PRN (17:31)
[2018-01-25] MEDS ORDERED: ACETAMINOPHEN 500 MG TAB PO PRN (17:31)
[2018-01-25 18:33] VITALS: TEMP 98.5; O2SAT 100
[2018-01-25 18:35] VITALS: BP 191/87
[2018-01-25] MEDS ORDERED: BUMETANIDE 2.5 MG/10 ML VIAL IV SCH (21:00)
[2018-01-26] MEDS ORDERED: METOPROLOL TAR 50 MG TAB PO SCH (09:00)
[2018-01-26] MEDS ORDERED: ENALAPRIL 10 MG TAB PO SCH (09:00)
[2018-01-26] MEDS ORDERED: ENOXAPARIN 30 MG/0.3 ML SQ SCH (17:00)
== END 2018-01-25 18:29 | disposition left against medical advice (07) ==
LOC: ER 14:05 → ERHOLD 17:00 → UNDOADMIN 17:00 → ER 18:29
DX: I13.0 Hypertensive heart and chronic kidney disease with heart failure and stage 1 through stage 4 chronic kidney disease, or unspecified chronic kidney disease (principal); I50.40 Unspecified combined systolic (congestive) and diastolic (congestive) heart failure; E11.22 Type 2 diabetes mellitus with diabetic chronic kidney disease; N18.9 Chronic kidney disease, unspecified; Z79.4 Long term (current) use of insulin; J44.1 Chronic obstructive pulmonary disease with (acute) exacerbation; I25.2 Old myocardial infarction
CPT/HCPCS: 36415; 71045; 80048; 80076; 81003; 82550; 82553; 83735; 83880; 84484; 85025; 85610; 85730; 93005; 96374; 96375; 99284; J2405; J1650; J1940

== ENCOUNTER 2018-02-02 15:04 | Observation (INO) | payer OTHER ==
--- NOTE | 2018-02-02 16:19 | RAD REPORT ---
EXAM DESCRIPTION: Eliu Single View02/02/2018 4:12 pm CLINICAL HISTORY: sob COMPARISON: January 25, 2018 FINDINGS: Small bilateral pleural effusions are unchanged. A mild left basilar opacity is seen. Lung s probably are otherwise clear of acute infiltrate. . The heart is mildly enlarged. Postsurgical changes involve the chest. IMPRESSION: Small bilateral pleural effusions left greater than right Left basilar opacity probably represents atelectasis
[2018-02-02 16:28] LABS: Absolute Lymphocytes (CBC) 0.8 K/uL (0.7-4.9); Absolute Monocytes 0.5 K/uL (0.1-1.3); Absolute Neutrophil 3.2 K/uL (1.8-8.0); Basophils % 0.7 % (0-1.3); Eosinophils % 2.1 % (0-4.4); Hematocrit 33.9 % (39.6-49.0); Lymphocytes % 18.1 % (15.3-44.8); MCH 32.2 pg (27.0-35.0); MCV 95.2 fL (80-100); MPV 8.6 fL (7.6-11.3); Monocytes % 10.3 % (3.3-12.3); RBC Red Blood Cell Count 3.56 M/uL (4.33-5.43)
[2018-02-02 16:32] LABS: Protime INR 1.18
[2018-02-02 16:50] LABS: Albumin 3.6 g/dL (3.4-5.0); Bilirubin Direct 0.1 mg/dL (0-0.2); Bilirubin Total 0.4 mg/dL (0.2-1.0); CKMB Creatine Kinase MB 5.4 ng/mL (0.3-3.6); Magnesium 2.1 mg/dL (1.8-2.4); Potassium 4.3 mmol/L (3.5-5.1); Protein, Total 7.8 g/dL (6.4-8.2)
[2018-02-02] MEDS ORDERED: MORPHINE 4 MG/ML SYR ONE (17:15)
--- NOTE | 2018-02-02 17:57 | EKG ---
Test Date: 2018-02-02 Test Time: 15:38:43 Thread Roller: CHEY MEASUREMENT RESULTS: Intervals: Rate: 54 CA: 196 QRSD: 98 QT: 468 QTc: 443 [place]: P: 41 CA: 196 QRS: -38 T: 136 INTERPRETIVE STATEMENTS: Sinus bradycardia Possible Left atrial enlargement Left axis deviation Left ventricular hypertrophy Inferior infarct, age undetermined Anteroseptal infarct, age undetermined T wave abnormality, consider lateral ischemia Abnormal ECG Compared to ECG 01/25/2018 14:42:30 Left-axis deviation now present Left ventricular hypertrophy now present T-wave abnormality now present ST (T wave) deviation no longer present Myocardial infarct finding still present Possible ischemia still present Electronically Signed On 02-02-18 17:56:33 CDT by Brandon Pérez
--- NOTE | 2018-02-02 18:02 | RAD REPORT ---
EXAM DESCRIPTION: CT - Abdomen Pelvis Wo Contrast - 02/02/2018 5:44 pm CLINICAL HISTORY: Left lower quadrant pain radiating to the chest and back, history of chronic renal disease and hypertension and diabetes COMPARISON: CT imaging December 26, 2017 TECHNIQUE: Axial [address] imaging of the abdomen and pelvis was performed without IV contrast. No IV contrast was given because of allergy, abnormal renal function, patient refusal or physician re quest. No oral contrast administered. All CT scans are performed using dose optimization technique as appropriate and may include automated exposure control or mA/KV adjustment according to patient size. FINDINGS: Bilateral pleural effusions are present probably improved from December but difficult to accur ately compare. Cardiomegaly is present without pericardial thickening or effusion. The liver, spleen and pancreas show no suspicious findings on non-contrast imaging. Gallbladder size is normal. No biliary tree dilatation. Gallstones can be occult. Slight motion limits ability to accu rately assess gallbladder wall thickness. No hydronephrosis or suspicious renal mass. No significant adrenal finding. Isodense renal masses an d pyelonephritis cannot be excluded in the absence of IV contrast. The urinary bladder is without sig nificant finding. Prostate gland and seminal vesicles are normal range. No gastric dilatation or gastric wall thickening. No acute small bowel finding seen. Patient has dive rticulosis without evidence for diverticulitis. Stool volume is moderate in the right-side of the col on. Left-sided colon is mostly decompressed. Active colon process is doubtful. Appendix is normal. No free air, free fluid or inflammatory stranding. No mass or bulky lymphadenopathy. Small fat only umbilical hernia is seen similar to comparison. Disc and bony degenerative changes are present. There are dense vascular calcifications seen. IMPRESSION: No obstruction, free air or surgically emergent finding. Small bowel loops are mildly prominent without dilatation. Nonspecific enteritis is possible. Gallbladder assessment is limited. Motion precludes accurate assessment of gallbladder wall thickness . Gallbladder size is normal and there is no biliary tree dilatation. Full assessment is limited is the absence of IV contrast.
[2018-02-02] MEDS ORDERED: LORazepam 2 MG/ML VIAL ONE (18:30)
--- NOTE | 2018-02-02 18:54 | ER ---
Nurse's Notes [facility] Name: Blaise Quarles Age: 77 yrs Sex: Male : 1940 Arrival Date: 02/02/2018 Time: 15:12 Bed 20 Private MD: Diagnosis: Acute combined systolic (congestive) and diastolic (congestive) heart failure;Unspecified kidney failure Presentation: 02/02 15:13 Presenting complaint: EMS states: LLQ pain, unknown start time, ems stated they are mb3 called 3 to 5 times a week for same complaint. They were called earlier today, but pt refused transport. Pain radiates to chest and back. Transition of care: patient was not received from another setting of care. Onset of symptoms is unknown. Risk Assessment: Do you want to hurt yourself or someone else? Patient reports no desire to harm self or others. Initial Sepsis Screen: Does the patient meet any 2 criteria? No. Patient's initial sepsis screen is negative. Does the patient have a suspected source of infection? No. Patient's initial sepsis screen is negative. Care prior to arrival: Glucose check: 135 Oxygen administered. via nasal cannula. 15:13 Method Of Arrival: EMS: [facility] mb3 15:13 Acuity: SARATH 3 mb3 Triage Assessment: 15:20 General: Appears in no apparent distress. uncomfortable, Behavior is calm, cooperative, mb3 appropriate for age. Pain: Complains of pain in left lower quadrant Pain radiates to back and chest Pain currently is 8 out of 10 on a pain scale. 15:21 EENT: No deficits noted. Neuro: No deficits noted. Level of Consciousness is awake, mb3 alert, obeys commands. Cardiovascular: Reports chest pain, Heart tones present Capillary refill < 3 seconds Patient's skin is warm and dry. Rhythm is sinus bradycardia. Respiratory: Reports shortness of breath Airway is patent Respiratory effort is even, unlabored, Respiratory pattern is regular, symmetrical, Breath sounds are clear bilaterally. Breath sounds are diminished in right middle lobe, left lower lobe, right lower lobe, left posterior lower lobe, right posterior middle lobe and right posterior lower lobe Onset: The symptoms/episode began/occurred at an unknown time. the patient has mild shortness of breath. GI: Reports lower abdominal pain, Patient currently denies nausea, vomiting. : No signs and/or symptoms were reported regarding the genitourinary system. Derm: Lower legs tight with red going down from below knees to feet. shins have scrapped areas that skin is raw and angry looking. Drainage noted also. Historical: - Allergies: 15:19 No Known Allergies; mb3 - Home Meds: 19:38 metoprolol tartrate 50 mg Oral tab 1 tab once daily [Active]; doxycycline hyclate 100 ea mg Oral cap 1 cap every 12 hours [Active]; tramadol Oral [Active]; bumetanide 0.5 mg Oral tab 1 tab once daily [Active]; cephalexin 500 mg Oral tab 1 tab q 8 hours [Active]; - PMHx: 15:19 Anemia; CAD; chronic renal disease; Diabetes - IDDM; Hypertension; Myocardial mb3 infarction; pulmonary nodule; Visually impared; - Immunization history:: Adult Immunizations up to date. - Social history:: Smoking status: Patient/guardian denies using tobacco, but has a distant history of tobacco abuse. - Ebola Screening: : Patient denies travel to an Ebola-affected area in the 21 days before illness onset No symptoms or risks identified at this time. Screenin:50 Abuse screen: Denies threats or abuse. Nutritional screening: No deficits noted. mb3 Tuberculosis screening: No symptoms or risk factors identified. Fall Risk Fall in past 12 months (25 points). Secondary diagnosis (15 points) IV access (20 points). Ambulatory Aid- Crutches/Cane/Walker (15 pts). Gait- Impaired (20 pts.). Mental Status- Oriented to own ability (0 pts). Total Parson Fall Scale indicates High Risk Score (45 or more points). Fall prevention measures have been instituted. Side Rails Up X 2 Placed Close to Nursing Station Frequent Obs/Assessments Occuring Family Present and informed to notify staff if the need to leave the bedside As available patient and family educated on Fall Prevention Program and Strategies. Assessment: 16:51 Reassessment: see triage assessment. Cardiovascular: Reports chest pain, Heart tones mb3 present. 17:54 Reassessment: Patient appears in no apparent distress at this time. Patient and/or mb3 family updated on plan of care and expected duration. Pain level reassessed. Patient is alert, oriented x 3, equal unlabored respirations, skin warm/dry/pink. 19:13 General: Appears in no apparent distress. Behavior is calm, cooperative, appropriate ea for age. Pain: Denies pain. Neuro: Level of Consciousness is awake, alert, obeys commands, Oriented to person, place, time, situation. Cardiovascular: Heart tones S1 S2 present Patient's skin is warm and dry. Cardiovascular: Respiratory: Respiratory: Airway is patent Respiratory effort is even, unlabored, Respiratory pattern is regular, symmetrical, Breath sounds are clear bilaterally. GI: Abdomen is non-distended, Bowel sounds present X 4 quads. EENT: No signs and/or symptoms were reported regarding the EENT system. Derm: Skin is pink, warm \T\ dry. Musculoskeletal: Circulation, motion, and sensation intact. 20:40 Reassessment: Patient and/or family updated on plan of care and expected duration. Pain ea level reassessed. Patient is alert, oriented x 3, equal unlabored respirations, skin warm/dry/pink. Family at bedside. 21:00 Reassessment: Patient and/or family updated on plan of care and expected duration. Pain ea level reassessed. Report called to Receiving nurse on second floor. 21:48 Reassessment: Patient and/or family updated on plan of care and expected duration. Pain ea level reassessed. Patient is alert, oriented x 3, equal unlabored respirations, skin warm/dry/pink. Taken via wheelchair to fourth floor per tech accompanied by family. Vital Signs: 15:16 BP 202 / 81; Pulse 55; Resp 16; Temp 97.7(O); Pulse Ox 100% on 2 lpm NC; Weight 63.5 mb3 kg; Height 5 ft. 5 in. (165.10 cm); Pain 8/10; 16:50 BP 204 / 76; Pulse 52; Resp 20; Pulse Ox 100% on 2 lpm NC; mb3 17:54 BP 203 / 78; Pulse 52; Resp 20; Pulse Ox 99% on 2 lpm NC; mb3 19:01 BP 201 / 87; Pulse 53; Resp 18; Pulse Ox 98% on R/A; Pain 0/10; ea 19:15 BP 179 / 71; Pulse 55; Resp 18; Pulse Ox 99% on R/A; ea 20:41 BP 190 / 81; Pulse 60; Resp 18; Temp 97.8; Pulse Ox 100% on R/A; Pain 0/10; ea 21:30 BP 197 / 80; Pulse 62; Resp 18; Temp 98.0(O); Pulse Ox 99% ; Pain 0/10; ea 15:16 Body Mass Index 23.30 (63.50 kg, 165.10 cm) mb3 ED Course: 15:12 Patient arrived in ED. ss 15:13 Nikunj Groves, RN is Primary Nurse. mb3 15:15 Triage completed. mb3 15:21 [facility] pm1 15:21 Ron Viveros MD is Attending Physician. pm1 15:58 EKG done, by vibration technician. reviewed by Tim Correa NP. sm3 16:11 X-ray completed. Portable x-ray completed in exam room. Patient tolerated procedure ag1 well. 16:12 XRAY Chest (1 view) In Process Unspecified. EDMS 17:[address] nj 17:44 CT Abd/Pelvis - Without Cont In Process Unspecified. EDMS 18:53 Loren Copeland MD is Hospitalizing Provider. pm1 19:20 Patient has correct armband on for positive identification. Bed in low position. Call ea light in reach. Side rails up X 1. 19:20 Arm band placed on right wrist. ea 19:59 No provider procedures requiring assistance completed. Patient admitted, IV remains in ea place. Administered Medications: 16:37 Drug: Lasix 40 mg Route: IVP; Site: right antecubital; rb1 19:11 Follow up: Response: No adverse reaction ea 16:39 Drug: Nitro-Bid Ointment 2 % 1 inches Route: Transdermal; Site: anterior chest wall; rb1 17:16 Drug: morphine 4 mg Route: IVP; Site: right antecubital; mb3 19:11 Follow up: Response: No adverse reaction; Pain is decreased ea 18:30 Drug: Ativan 0.5 mg Route: IVP; Site: right antecubital; mb3 19:11 Follow up: Response: No adverse reaction ea 19:12 Follow up: Response: Marked relief of symptoms ea 19:11 Drug: hydrALAZINE 10 mg Route: IV; Rate: calculated rate; Site: right antecubital; ea 19:59 Follow up: Response: No adverse reaction; Blood pressure is lowered; IV Status: ea Completed infusion Outcome: 18:54 Decision to Hospitalize by Provider. pm1 19:30 Instructed on the need for admit. ea 20:59 Condition: stable ea 21:47 Admitted to Med/surg accompanied by tech, via wheelchair, room 405, with oxygen, with ea chart, Report called to Saskia BORJA 21:49 Patient left the ED. ea Signatures: Dispatcher [employer] EDMS Monserrat Young, RN RN Jennifer Velásquez ag1 Harriet Ca, RN Tim Kelly, RICKY DIRECTOR OF REHABILITATIVE SERVICES pm1 Fran Sweeney Elena, RN RN ea Barnett, Mark RN RN mb3 Xochitl Clayton 3
--- NOTE | 2018-02-02 18:55 | EDPHYS ---
Physician Documentation [facility] Name: Blaise Quarles Age: 77 yrs Sex: Male : 1940 Arrival Date: 02/02/2018 Time: 15:12 Bed 20 Private MD: ED Physician Ron Viveros HPI: 02/02 17:00 This 77 yrs old Male presents to ER via EMS with complaints of Shortness Of pm1 Breath, Abdominal Pain. 17:00 The patient has shortness of breath at rest. Onset: The symptoms/episode began/occurred pm1 this morning. Duration: The symptoms are continuous, and are steadily getting worse. The patient's shortness of breath is aggravated by exertion, light activity, walking, is alleviated by nothing. Associated signs and symptoms: Pertinent positives: chest pain, abdominal pain and low back pain, Pertinent negatives: non-productive cough, fever. Severity of symptoms: in the emergency department the symptoms are worse. The patient has experienced similar episodes in the past, multiple times. Historical: - Allergies: 15:19 No Known Allergies; mb3 - Home Meds: 19:38 metoprolol tartrate 50 mg Oral tab 1 tab once daily [Active]; doxycycline hyclate 100 ea mg Oral cap 1 cap every 12 hours [Active]; tramadol Oral [Active]; bumetanide 0.5 mg Oral tab 1 tab once daily [Active]; cephalexin 500 mg Oral tab 1 tab q 8 hours [Active]; - PMHx: 15:19 Anemia; CAD; chronic renal disease; Diabetes - IDDM; Hypertension; Myocardial mb3 infarction; pulmonary nodule; Visually impared; - Immunization history:: Adult Immunizations up to date. - Social history:: Smoking status: Patient/guardian denies using tobacco, but has a distant history of tobacco abuse. - Ebola Screening: : Patient denies travel to an Ebola-affected area in the 21 days before illness onset No symptoms or risks identified at this time. ROS: 17:00 Constitutional: Negative for fever, chills, and weight loss, Eyes: Negative for injury, pm1 pain, redness, and discharge, ENT: Negative for injury, pain, and discharge, Neck: Negative for injury, pain, and swelling. 17:00 : Negative for injury, bleeding, discharge, and swelling, MS/Extremity: Negative for injury and deformity, Skin: Negative for injury, rash, and discoloration, Neuro: Negative for headache, weakness, numbness, tingling, and seizure. 17:00 Cardiovascular: Positive for chest pain, of the anterior aspect of left upper chest, edema. 17:00 Respiratory: Positive for shortness of breath, at rest. 17:00 Abdomen/GI: Positive for abdominal pain, of the left lower quadrant. 17:00 Back: Positive for of the right mid back, pain, Negative for injury or acute deformity, decreased range of motion. Exam: 17:00 Constitutional: This is a well developed, well nourished patient who is awake, alert, pm1 and in no acute distress. Head/Face: Normocephalic, atraumatic. Eyes: Pupils equal round and reactive to light, extra-ocular motions intact. Lids and lashes normal. Conjunctiva and sclera are non-icteric and not injected. Cornea within normal limits. Periorbital areas with no swelling, redness, or edema. ENT: Nares patent. No nasal discharge, no septal abnormalities noted. Tympanic membranes are normal and external auditory canals are clear. Oropharynx with no redness, swelling, or masses, exudates, or evidence of obstruction, uvula midline. Mucous membranes moist. Neck: Trachea midline, no thyromegaly or masses palpated, and no cervical lymphadenopathy. Supple, full range of motion without nuchal rigidity, or vertebral point tenderness. No Meningismus. 17:00 Back: No spinal tenderness. No costovertebral tenderness. Full range of motion. Skin: Warm, dry with normal turgor. Normal color with no rashes, no lesions, and no evidence of cellulitis. MS/ Extremity: Pulses equal, no cyanosis. Neurovascular intact. Full, normal range of motion. 17:00 Chest/axilla: Inspection: normal, Palpation: tenderness, that is moderate, of the anterior aspect of left upper chest. 17:00 Cardiovascular: Rhythm: regular, Pulses: no pulse deficits are appreciated, Heart sounds: normal, normal S1and S2, murmur, not appreciated, Edema: pedal edema, that is moderate, 3+. 17:00 Respiratory: the patient does not display signs of respiratory distress, Respirations: normal, Breath sounds: decreased breath sounds, are located in both bases. 17:00 Abdomen/GI: Inspection: abdomen appears normal, Bowel sounds: normal, Palpation: soft, mild abdominal tenderness, in the right upper quadrant and left lower quadrant, mass, is not appreciated, rebound tenderness, is not appreciated. 17:00 Neuro: Orientation: is normal, Motor: moves all fours. Vital Signs: 15:16 BP 202 / 81; Pulse 55; Resp 16; Temp 97.7(O); Pulse Ox 100% on 2 lpm NC; Weight 63.5 mb3 kg; Height 5 ft. 5 in. (165.10 cm); Pain 8/10; 16:50 BP 204 / 76; Pulse 52; Resp 20; Pulse Ox 100% on 2 lpm NC; mb3 17:54 BP 203 / 78; Pulse 52; Resp 20; Pulse Ox 99% on 2 lpm NC; mb3 19:01 BP 201 / 87; Pulse 53; Resp 18; Pulse Ox 98% on R/A; Pain 0/10; ea 19:15 BP 179 / 71; Pulse 55; Resp 18; Pulse Ox 99% on R/A; ea 20:41 BP 190 / 81; Pulse 60; Resp 18; Temp 97.8; Pulse Ox 100% on R/A; Pain 0/10; ea 21:30 BP 197 / 80; Pulse 62; Resp 18; Temp 98.0(O); Pulse Ox 99% ; Pain 0/10; ea 15:16 Body Mass Index 23.30 (63.50 kg, 165.10 cm) 3 MDM: 15:23 Patient medically screened. pm1 18:06 Data reviewed: vital signs. Data interpreted: Pulse oximetry: on room air is 99 %. pm1 Interpretation: normal. Counseling: I had a detailed discussion with the patient and/or guardian regarding: the historical points, exam findings, and any diagnostic results supporting the discharge/admit diagnosis, lab results, radiology results, the need for further work-up and treatment in the hospital. 19:54 Physician consultation: Loren Copeland MD was contacted at 19:45, regarding admission, pm1 patient's condition, and will see patient in ED. 02/02 15:34 Order name: Basic Metabolic Panel; Complete Time: 17:07 pm1 02/02 15:34 Order name: CBC with Diff; Complete Time: 17:02 pm1 02/02 15:34 Order name: Ckmb; Complete Time: 17:07 pm02/02 15:34 Order name: CPK; Complete Time: 17:07 pm02/02 15:34 Order name: LFT's; Complete Time: 17:07 pm02/02 15:34 Order name: Magnesium; Complete Time: 17:07 pm02/02 15:34 Order name: NT PRO-BNP; Complete Time: 17:07 pm02/02 15:34 Order name: PT-INR; Complete Time: 17:02 pm02/02 15:34 Order name: Ptt, Activated; Complete Time: 17:02 pm02/02 15:34 Order name: Troponin (emerg Dept Use Only); Complete Time: 17:02 pm02/02 15:34 Order name: XRAY Chest (1 view); Complete Time: 16:21 pm02/02 15:34 Order name: Lipase; Complete Time: 17:07 pm02/02 17:06 Order name: CT Abd/Pelvis - Without Cont; Complete Time: 18:05 pm02/02 21:40 Order name: Urine Dipstick--Ancillary (enter results) co 02/02 15:34 Order name: EKG; Complete Time: 15:34 pm02/02 15:34 Order name: Cardiac monitoring; Complete Time: 15:55 pm02/02 15:34 Order name: EKG - Nurse/Tech; Complete Time: 15:55 pm02/02 15:34 Order name: IV Saline Lock; Complete Time: 19:13 pm02/02 15:34 Order name: Labs collected and sent; Complete Time: 19:13 pm02/02 15:34 Order name: O2 Per Protocol; Complete Time: 15:56 pm02/02 15:34 Order name: O2 Sat Monitoring; Complete Time: 15:56 pm02/02 15:34 Order name: Urine Dipstick-Ancillary (obtain specimen); Complete Time: 21:47 pm1 Administered Medications: 16:37 Drug: Lasix 40 mg Route: IVP; Site: right antecubital; rb1 19:11 Follow up: Response: No adverse reaction ea 16:39 Drug: Nitro-Bid Ointment 2 % 1 inches Route: Transdermal; Site: anterior chest wall; rb1 17:16 Drug: morphine 4 mg Route: IVP; Site: right antecubital; mb3 19:11 Follow up: Response: No adverse reaction; Pain is decreased ea 18:30 Drug: Ativan 0.5 mg Route: IVP; Site: right antecubital; mb3 19:11 Follow up: Response: No adverse reaction ea 19:12 Follow up: Response: Marked relief of symptoms ea 19:11 Drug: hydrALAZINE 10 mg Route: IV; Rate: calculated rate; Site: right antecubital; ea 19:59 Follow up: Response: No adverse reaction; Blood pressure is lowered; IV Status: ea Completed infusion Disposition: 02/03 07:01 Co-signature as Attending Physician, Ron Viveros MD I agree with the assessment and yoni plan of care. Disposition: 02/02/18 18:54 Hospitalization ordered by Loren Copeland for Inpatient Admission. Preliminary diagnosis are Acute combined systolic (congestive) and diastolic (congestive) heart failure, Unspecified kidney failure. - Bed requested for Telemetry/MedSurg (Inpatient). - Status is Inpatient Admission. ea - Condition is Stable. - Problem is new. - Symptoms have improved. UTI on Admission? No Signatures: Dispatcher [employer] EDMS Shirley Gonzalez RN RN mw Anderson, Corey, MD MD cha Barber, Rebecca, RN Tim Kelly NP TRANSMISSION TECHNICIAN pm1 Anusha Redd, RN Nikunj Santos ea RN RN mb3 Corrections: (The following items were deleted from the chart) 02/02 18:55 18:54 Hospitalization Ordered by Loren Copeland MD for Inpatient Admission. Preliminary pm1 diagnosis is Acute combined systolic (congestive) and diastolic (congestive) heart failure. Bed requested for Telemetry/MedSurg (Inpatient). Status is Inpatient Admission. Condition is Stable. Problem is new. Symptoms have improved. UTI on Admission? No. pm1 19:22 18:55 02/02/2018 18:54 Hospitalization Ordered by Loren Copeland MD for Inpatient Admission. Preliminary diagnosis is Acute combined systolic (congestive) and diastolic (congestive) heart failure; Unspecified kidney failure. Bed requested for Telemetry/MedSurg (Inpatient). Status is Inpatient Admission. Condition is Stable. Problem is new. Symptoms have improved. UTI on Admission? No. pm1 20:21 19:22 02/02/2018 18:54 Hospitalization Ordered by Loren Copeland MD for Inpatient mw Admission. Preliminary diagnosis is Acute combined systolic (congestive) and diastolic (congestive) heart failure; Unspecified kidney failure. Bed requested for Telemetry/MedSurg (Inpatient). Status is Inpatient Admission. Condition is Stable. Problem is new. Symptoms have improved. UTI on Admission? No. mw 21:49 20:21 02/02/2018 18:54 Hospitalization Ordered by Loren Copeland MD for Inpatient ea Admission. Preliminary diagnosis is Acute combined systolic (congestive) and diastolic (congestive) heart failure; Unspecified kidney failure. Bed requested for Telemetry/MedSurg (Inpatient). Status is Inpatient Admission. Condition is Stable. Problem is new. Symptoms have improved. UTI on Admission? No. mw
[2018-02-02] MEDS ORDERED: HYDRALAZINE HCL 20 MG/ML VIAL ONE (19:06)
--- NOTE | 2018-02-02 20:29 | P.HP ---
Certification for Inpatient Patient admitted to: Inpatient With expected LOS: >2 Midnights Practitioner: I am a practitioner with admitting privileges, knowledge of patient current condition, hospital course, and medical plan of care. Services: Services provided to patient in accordance with Admission requirements found in Title 42 Section 412.3 of the Code of Federal Regulations Patient History Date of Service: 02/02/18 Reason for admission: acute on chronic combined diastolic and systolic CHF History of Present Illness: Mr Quarles is a 77 years old male with multiple medical problems including IDDM, Chronic combined systolic and diastolic CHF, chronic respiratory failure on home oxygen at 2L NC, moderate aortic stenosis, HTN, CKD, who came to ED complaining of progressive SOB. According to the patient and his , who is at the bedside, he start with worsening dyspnea about 3 days ago. His legs become more swollen than usual as well. He is not able to stay flat on the bed, and is using 2 pillows to sleep. He has had some chest pain, in sternal area, reproducible with palpation, lasting for seconds. The patient denied cough, or fever. At arrival the patient was in non-distress, O2 sat 100 on 2L NC, BP 202/ 81. Allergies aspirin Allergy (Verified 01/11/18 15:42) Nausea/Vomiting No Known Allergies Allergy (Uncoded 01/18/18 10:03) Unknown Home medications list reviewed: Yes Home Medications: Atorvastatin Calcium [Lipitor] 10 mg PO BEDTIME 12/15/17 Enalapril [Vasotec] 10 mg PO DAILY 12/15/17 Furosemide [Lasix] 20 mg PO DAILY 12/15/17 Glipizide [Glipizide ER] 10 mg PO BIDWM 12/15/17 Metoprolol Succinate [Toprol Xl] 50 mg PO DAILY 12/15/17 Acetaminophen [Acetaminophen Extra Strength] 500 mg PO Q6HR PRN 01/11/18 - Past Medical/Surgical History Diabetic: Yes -: Hypertension -: Coronary disease -: Diabetes mellitus type 2 -: Hyperlipidemia -: Chronic renal disease -: History of bilateral pleural effusion -: Anemia of chronic disease -: Anemia of chronic disease -: TN -: PULMONARY NODULE -: SHORTNESS OF BREATH -: Repair of left finger fracture -: CABG maybe three Psychosocial/ Personal History: He is 56 years, has 13 children, he does not work. - Family History Father -: GI disease Notes: none per pt - Social History Smoking Status: Former smoker Alcohol use: No CD- Drugs: No Caffeine use: No Place of Residence: Home Review of Systems 10-point ROS is otherwise unremarkable Physical Examination - Physical Exam General: Alert, In no apparent distress HEENT: Atraumatic, PERRLA, Mucous membr. moist/pink, EOMI, Sclerae nonicteric Neck: Supple, 2+ carotid pulse no bruit, No LAD, Without JVD or thyroid abnormality Respiratory: Diminished, Crackles/rales (bibasilar rales) Cardiovascular: Regular rate/rhythm, Normal S1 S2 Gastrointestinal: Normal bowel sounds, No tenderness Musculoskeletal: No tenderness, Swelling (bilateral LE 2+) Integumentary: No rashes Neurological: Normal speech, Normal strength at 5/5 x4 extr, Normal tone, Normal affect Lymphatics: No axilla or inguinal lymphadenopathy - Studies Laboratory Data (last 24 hrs) 02/02/18 16:15: PT 14.0 H, INR 1.18, APTT 31.9 02/02/18 16:15: WBC 4.6 D, Hgb 11.5 L, Hct 33.9 L, Plt Count 213 02/02/18 16:15: Sodium 137, Potassium 4.3, BUN 85 H, Creatinine 4.90 H, Glucose 123 H, Magnesium 2.1, Total Bilirubin 0.4, AST 19, ALT 22, Alkaline Phosphatase 83, Lipase 130 Assessment and Plan - Problems (Diagnosis) (1) Acute on chronic combined systolic (congestive) and diastolic (congestive) heart failure Current Visit: Yes Status: Acute (2) Abdominal pain Onset Date: 01/12/18 Current Visit: No Status: Acute Qualifiers: Abdominal location: left lower quadrant Qualified Code(s): R10.32 - Left lower quadrant pain (3) Acute on chronic kidney failure Current Visit: No Status: Acute Qualifiers: Acute renal failure type: unspecified Chronic kidney disease stage: stage 5 , not on chronic dialysis Qualified Code(s): N17.9 - Acute kidney failure, unspecified; N18.5 - Chronic kidney disease, stage 5 (4) Pleural effusion Current Visit: No Status: Acute (5) Aortic stenosis Current Visit: No Status: Chronic Qualifiers: Cardiac valve disease etiology: etiology unspecified Qualified Code(s): I35.0 - Nonrheumatic aortic (valve) stenosis (6) Diabetes mellitus Onset Date: 07/15/17 Current Visit: No Status: Chronic Qualifiers: Diabetes mellitus type: type 2 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 insulin use: unspecified terminal gauger supervisor insulin use status Diabetes mellitus complication status : with other specified complication Qualified Code(s): E11.69 - Type 2 diabetes mellitus with other specified complication (7) Hypertension Onset Date: 02/21/16 Current Visit: No Status: Chronic Qualifiers: Hypertension type: essential hypertension Qualified Code(s): I10 - Essential (primary) hypertension - Plan The patient will be admitted to the hospital due to acute on chronic combined CHF, previous EHCO shows EF 46%, with mild global hypokynesis, moderate aortic stenosis, in context of advance CKD, not on HD yet. BP significantly elevated as well. Will order IV lasix, tight diuresis control, consult Dr Jacobson, and Cardiology service for medication optimization. - Advance Directives Does patient have a Living Will: No Does patient have a Durable POA for Healthcare: No - Code Status/Comfort Care Code Status Assessed: Yes Code Status: Full Code
[2018-02-02] MEDS: INSULIN -REGULAR HUMAN 50 UNIT/0.5 ML ML SQ SCH (22:01)
[2018-02-02] MEDS ORDERED: ONDANSETRON 4 MG/2 ML VIAL IV PRN (22:01)
[2018-02-02 22:10] VITALS: BMI 23.3
[2018-02-02] MEDS: ATORVASTATIN 10 MG TAB PO SCH (22:59)
[2018-02-02] MEDS: FUROSEMIDE 40 MG/4 ML VIAL IV SCH (23:00)
[2018-02-02] MEDS: HYDRALAZINE HCL 20 MG/ML VIAL IV PRN (23:00)
[2018-02-03] MEDS: ACETAMINOPHEN 500 MG TAB PO PRN ×2 (01:01→16:46)
--- NOTE | 2018-02-03 07:04 | P.PN ---
Subjective Date of Service: 02/03/18 Primary Care Provider: Dr. Martín Perez([facility]); Nephrology-Dr. Jacobson Chief Complaint: acute on chronic combined diastolic and systolic CHF Subjective: Other (Patient with constipation this morning.) Physical Examination - Vital Signs Temperature: 97.6 F Blood Pressure: 167/70 Pulse: 56 Respirations: 16 Pulse Ox (%): 100 - Physical Exam General: Alert, In no apparent distress, Oriented x3, Cooperative HEENT: Atraumatic Neck: Supple Respiratory: Clear to auscultation bilaterally, Normal air movement Cardiovascular: Normal pulses, Regular rate/rhythm Gastrointestinal: Normal bowel sounds, Soft and benign, Non-distended, No masses , No rebound, No guarding Musculoskeletal: No erythema, No tenderness, No warmth Integumentary: No erythema, No warmth, No cyanosis Neurological: Normal speech, Normal strength at 5/5 x4 extr, Normal tone, Normal affect - Studies Laboratory Data (last 24 hrs) 02/02/18 16:15: PT 14.0 H, INR 1.18, APTT 31.9 02/02/18 16:15: WBC 4.6 D, Hgb 11.5 L, Hct 33.9 L, Plt Count 213 02/02/18 16:15: Sodium 137, Potassium 4.3, BUN 85 H, Creatinine 4.90 H, Glucose 123 H, Magnesium 2.1, Total Bilirubin 0.4, AST 19, ALT 22, Alkaline Phosphatase 83, Lipase 130 Medications List Reviewed: Yes Assessment & Plan - Problems (Diagnosis) (1) CHF (congestive heart failure) Onset Date: 07/28/16 Current Visit: No Status: Chronic Plan: Acute on chronic CHF likely related to acute on chronic renal disease. He does not desire dialysis in the future. Advance directives addressed. He is wanting to pursue DNR. Hospice discussion also addressed. I will recommend Hospice. Will discuss with Cardiology and Nephrology. Will have social services designee address hospice with the patient and family. Anticipate hospice at discharge. (2) Chronic renal disease Onset Date: 07/15/17 Current Visit: No Status: Chronic Plan: Patient with acute on chronic renal disease. Patient has end-stage disease. Patient does not desire hospice. This was addressed multiple times. Will need to discuss further with nephrology. Patient will be a good candidate for hospice. Will have social services designee address this in detail. Qualifiers: Chronic kidney disease stage: stage 5, not on chronic dialysis Qualified Code(s): N18.5 - Chronic kidney disease, stage 5 (3) Coronary artery disease Onset Date: 07/15/17 Current Visit: No Status: Chronic Plan: Overall stable. Await recommendations by cardiology Qualifiers: Coronary Disease-Associated Artery/Lesion type: bypass graft [place] vs. transplanted heart: [place] heart Associated angina: with unspecified angina Qualified Code(s): I25.709 - Atherosclerosis of coronary artery bypass graft(s) , unspecified, with unspecified angina pectoris (4) Diabetes mellitus Onset Date: 07/15/17 Current Visit: No Status: Chronic Plan: Continue sliding-scale at this time. 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 Qualifiers: Hypertension type: essential hypertension Qualified Code(s): I10 - Essential (primary) hypertension (6) Shortness of breath Onset Date: 02/21/16 Current Visit: No Status: Acute Plan: Likely from CHF. Will monitor closely. Continue as above. (7) Pleural effusion Onset Date: 02/03/18 Current Visit: Yes Status: Acute Plan: Bilateral pleural effusion noted. This is likely chronic in nature. Related to his CHF and end-stage renal disease. Patient does not desire dialysis. Will continue with above plan of care. (8) Constipation Current Visit: No Status: Chronic Plan: Will provide medication for constipation. Qualifiers: Constipation type: unspecified constipation type Qualified Code(s): K59.00 - Constipation, unspecified Discharge Plan: Home Plan to discharge in: 24 Hours - Code Status/Comfort Care Code Status Assessed: Yes (Advanced directives address in detail with patient and family. Pt DNR) Time Spent Managing Pts Care (In Minutes): 55
[2018-02-03] MEDS: INSULIN -REGULAR HUMAN 50 UNIT/0.5 ML ML SQ SCH ×4 (07:30→21:00)
[2018-02-03] MEDS: FUROSEMIDE 40 MG/4 ML VIAL IV SCH ×2 (08:26→19:46)
[2018-02-03] MEDS: METOPROLOL XL 50 MG TAB PO SCH (09:00)
[2018-02-03] MEDS ORDERED: FLEET ENEMA ADULT PR PRN (10:27)
[2018-02-03] MEDS ORDERED: LACTULOSE 20 GM/30 ML UCUP PO PRN (10:28)
--- NOTE | 2018-02-03 10:30 | EKG ---
Test Date: 2018-02-02 Test Time: 18:05:41 Soil Scientist: [facility] MEASUREMENT RESULTS: Intervals: Rate: 55 NC: 182 QRSD: 92 QT: 474 QTc: 453 [place]: P: 60 NC: 182 QRS: -30 T: 133 INTERPRETIVE STATEMENTS: Sinus bradycardia Possible Left atrial enlargement Left axis deviation Left ventricular hypertrophy Cannot rule out Septal infarct, age undetermined Inferior infarct, age undetermined ST & T wave abnormality, consider lateral ischemia Abnormal ECG Compared to ECG 02/02/2018 15:38:43 ST (T wave) deviation now present T-wave abnormality no longer present Myocardial infarct finding still present Possible ischemia still present Electronically Signed On 02-03-18 10:28:20 CDT by Raheel Zeng
[2018-02-03] MEDS: HYDRALAZINE HCL 20 MG/ML VIAL IV PRN (12:07)
[2018-02-03] MEDS ORDERED: MORPHINE 2 MG/ML SYR IV ONE (13:15)
[2018-02-03] MEDS ORDERED: MORPHINE 2 MG/ML SYR ONE (13:20)
[2018-02-03] MEDS: LACTULOSE 20 GM/30 ML UCUP PO ONE ×2 (13:30→17:00)
[2018-02-03] MEDS ORDERED: Ciprofloxacin 200mg IV 200 MG/100 ML IV.SOLN. IV SCH (15:00)
--- NOTE | 2018-02-03 15:27 | CON ---
CARDIOLOGY CONSULT History Of Present Illness: Mr. Quarles I am asked to see him I think just to talk to him and make sure he really has decided on the course he wants to take. He is the patient who has CAD. He has occasi onal chest pain. We have talked to him about perhaps doing a cardiac cath, but because he has end-st age renal disease and he does not want to undergo dialysis, he has always refused it. He has refused the cardiac cath and dialysis. Presently, he seems to be getting more and more lethargic. When he came to the emergency room, the chief complaint was left lower quadrant pain. He was not having ches t pain, but way down the lower abdomen, not far from the hip. Physical Examination: General: The patient is 5 feet 5, 140 pounds, appears ill. He is a little bit lethargic, tends to w ant to sleep, really nothing has changed. Regarding other discussions, I think, the patient if he decided to be a dialysis patient, can probabl y feel great, maybe not even need a heart cath, so after dialysis is started if he is still having an deacon, we can do a cardiac cath, but there is really no help that I can give him at this point if he h as decided not to be a dialysis patient. DON/EB Voice ID: [id number] Report ID: [id number]
[2018-02-03] MEDS ORDERED: ENOXAPARIN 30 MG/0.3 ML SQ SCH (17:00)
[2018-02-03] MEDS: MORPHINE 2 MG/ML SYR IV PRN ×2 (17:06→21:08)
--- NOTE | 2018-02-03 18:54 | CON ---
Date of Consultation: 02/03/2018 Reason For Consult: Stage 5 CKD, needing dialysis. History Of Present Illness: Mr. Quarles is a 77-year-old male with multiple medical problems including advanced stage 4 to stage 5 CKD, history of aortic stenosis, and noncompliance with treatment, who pr esents to [facility]. The patient presented to [facility] complaining of shortness of breath, worsening lower extremity edema, abdominal pain. He has been in the emergency room every week this month of January and also has multiple frequent admissions to the hospital. However, he leav es AMA most of the time and does not complete his treatment and is very noncompliant with medications . He has been advised by Dr. Jacobson to follow up closely in the past. However, he has been very no ncompliant and has not followed up with Dr. Jacobson. He also has been taking NSAIDs, which he denies at this time, but family reports that in the past he has been taking NSAIDs. The patient reports th at he is having difficulty going to the bathroom, he is shivering, and he is having abdominal discomf ort. Past Medical History: Significant for history of aortic stenosis, history of congestive heart failur e, history of advanced CKD, NSAID use, coronary artery disease, type 2 diabetes, anemia of chronic di sease, shortness of breath, history of pleural effusion, status post thoracentesis in the past. Social History: He is . Has 13 children. Does not work. He has a former history of smoking , none at this time. Denies any alcohol or drug use. Family History: Unable to be obtained. Review of Systems: Positive for shortness of breath, lower extremity edema, pain in his legs, abdominal pain, constipati on. Last bowel movement was 2 days ago. Dyspnea on exertion and orthopnea and paroxysmal nocturnal d yspnea. Denies any chest pain. All other review of systems are negative. Physical Examination: Vital Signs: At this time are showing temperature of 97.6, pulse rate of 56, respiratory rate of 16, blood pressure 167/70. General: He appears in [id number] distress, shivering. HEENT: Shows atraumatic head. LUNGS: Auscultation of the lungs revealed diminished breath sounds at bases. No wheezing was noted. Heart: Auscultation of the heart revealed a regular rate and rhythm. Abdomen: Tenderness noted in the left lower quadrant of the abdomen. Extremities: Anasarca was noted. Laboratory Data: Has been reviewed. Creatinine at 4.9, BUN of 85. Liver tests are okay and albumin is at 3.6. CBC showing stable hemoglobin, hematocrit, and platelet count. Current Medications: Have been reviewed. Chest x-ray from yesterday showing evidence of pleural effusions, but no acute pulmonary edema was no yoli and left basilar opacity. The patient also had a CT scan of his abdomen and pelvis without contr ast showing some mild enteritis, but no evidence of diverticulitis. The patient also has stool on th e right side of the colon. Impression: 1.Chronic kidney stage 5 with advanced kidney disease leading to shortness of breath and fluid reten tion. The patient will need dialysis, however, he has refused dialysis multiple times in the past an d he is also refusing dialysis at this time. 2.Abdominal pain, possibly related to diverticulitis. Clinically looks like diverticulitis. The diony miller would benefit from IV antibiotics and bowel regimen. 3.Anemia, stable. 4.Type 2 diabetes. 5.Volume overload with history of aortic stenosis and diastolic heart failure with ongoing renal ins ufficiency leading to volume overload and shortness of breath. The patient will need aggressive diur esis, which he has been started on Lasix, however, the patient is very agitated at this time. Plan: The patient was educated that he needs dialysis and also explained that he will need a bowel r egimen as well as antibiotics to help improve his pain and his discomfort. However, the patient got very agitated and wanted to leave against medical advice. Discussed further with Dr. Mancilla. The diony miller has had multiple admissions and has multiple AMAs. He has adamantly refused dialysis. Dr. Aubrey llmaas has spoken to him in [place] and explained the need for dialysis. However, he adamantly refuses. At this point, given his multiple hospital admissions and refusal, the patient would benefit from t ransitioning to hospice to improve his quality of life and to reduce the burden on his family . We w ill advise outpatient hospice evaluation if he leaves AMA at this time and will transition onto hospi ce if he would be agreeable. I spent about 1 hour discussing the plan with his family and interpreting and advising him regarding the situation and explaining his prognosis. The patient is a very difficult personality and has demario antly refused care and help. However, he does have multiple ER admissions and multiple trips to the emergency room for various reasons most of it are related to shortness of breath. Poor prognosis ove rall. Risk of explained. The patient and family understand. DOMINIC/EB Voice ID: [id number] Report ID: [id number]
[2018-02-03] MEDS: METRONIDAZOLE 500mg IVPB 500 MG/100 ML BAG IV SCH (19:47)
[2018-02-03 20:10] VITALS: O2SAT 99
[2018-02-03] MEDS: ATORVASTATIN 10 MG TAB PO SCH (21:09)
[2018-02-03] MEDS ORDERED: LORAZEPAM 0.5 MG TABLET PO ONE (22:20)
[2018-02-04] MEDS: METRONIDAZOLE 500mg IVPB 500 MG/100 ML BAG IV SCH ×2 (00:50→08:57)
[2018-02-04] MEDS: INSULIN -REGULAR HUMAN 50 UNIT/0.5 ML ML SQ SCH (07:30)
[2018-02-04] MEDS: FUROSEMIDE 40 MG/4 ML VIAL IV SCH (08:58)
[2018-02-04] MEDS: METOPROLOL XL 50 MG TAB PO SCH (08:59)
[2018-02-04 09:00] VITALS: BP 190/67
[2018-02-04 09:06] VITALS: TEMP 98.2
--- NOTE | 2018-02-04 11:07 | P.DS ---
Admission Date: 02/02/18 Discharge Date: 02/04/18 Primary Care Provider: Dr. Martín Perez([facility]); Nephrology-Dr. 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 Pérez Nephrology-Dr. Jacobson Procedures: CT scan: FINDINGS: Bilateral pleural effusions are present probably improved from December but difficult to accurately compare. Cardiomegaly is present without pericardial thickening or effusion. The liver, spleen and pancreas show no suspicious findings on non-contrast imaging. Gallbladder size is normal. No biliary tree dilatation. Gallstones can be occult. Slight motion limits ability to accurately assess gallbladder wall thickness. No hydronephrosis or suspicious renal mass. No significant adrenal finding. Isodense renal masses and pyelonephritis cannot be excluded in the absence of IV contrast. The urinary bladder is without significant finding. Prostate gland and seminal vesicles are normal range. No gastric dilatation or gastric wall thickening. No acute small bowel finding seen. Patient has diverticulosis without evidence for diverticulitis. Stool volume is moderate in the right-side of the colon. Left-sided colon is mostly decompressed. Active colon process is doubtful. Appendix is normal. No free air, free fluid or inflammatory stranding. No mass or bulky lymphadenopathy. Small fat only umbilical hernia is seen similar to comparison. Disc and bony degenerative changes are present. There are dense vascular calcifications seen. IMPRESSION: No obstruction, free air or surgically emergent finding. Small bowel loops are mildly prominent without dilatation. Nonspecific enteritis is possible. Gallbladder assessment is limited. Motion precludes accurate assessment of gallbladder wall thickness. Gallbladder size is normal and there is no biliary tree dilatation. Full assessment is limited is the absence of IV contrast. - Problems (1) CHF (congestive heart failure) Onset Date: 07/28/16 Current Visit: No Status: Chronic (2) Chronic renal disease Onset Date: 07/15/17 Current Visit: No Status: Chronic Qualifiers: Chronic kidney disease stage: stage 5, not on chronic dialysis Qualified Code(s): N18.5 - Chronic kidney disease, stage 5 (3) Coronary artery disease Onset Date: 07/15/17 Current Visit: No Status: Chronic Qualifiers: Coronary Disease-Associated Artery/Lesion type: bypass graft [place] vs. 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) , unspecified, with unspecified angina pectoris (4) Diabetes mellitus Onset Date: 07/15/17 Current Visit: No Status: Chronic Qualifiers: Diabetes mellitus type: type 2 Diabetes mellitus rodent exterminator insulin use: unspecified rodent exterminator insulin use status Diabetes mellitus complication status : with other specified complication Qualified Code(s): E11.69 - Type 2 diabetes mellitus with other specified complication (5) Hypertension Onset Date: 02/21/16 Current Visit: No Status: Chronic Qualifiers: Hypertension type: essential hypertension Qualified Code(s): I10 - Essential (primary) hypertension (6) Shortness of breath Onset Date: 02/21/16 Current Visit: No Status: Acute (7) Pleural effusion Onset Date: 02/03/18 Current Visit: Yes Status: Chronic (8) Constipation Current Visit: No Status: Chronic Qualifiers: Constipation type: unspecified constipation type Qualified Code(s): K59.00 - Constipation, unspecified (9) Aortic stenosis Onset Date: 02/03/18 Current Visit: Yes Status: Chronic Qualifiers: Cardiac valve disease etiology: etiology unspecified Qualified Code(s): I35.0 - Nonrheumatic aortic (valve) stenosis (10) Enteritis Onset Date: 12/15/17 Current Visit: No Status: Acute Brief History of Present Illness: 77-year-old male presented emergency room with shortness of breath and edema to the lower extremity. Patient has chronic CHF, chronic renal disease requiring dialysis, an aortic stenosis. Patient was admitted for further treatment. Hospital Course: Patient presented with shortness of breath secondary to systolic CHF, aortic stenosis and chronic end-stage renal disease not on dialysis. Patient has chronic pleural effusions. Patient was evaluated by cardiology and nephrology. Patient was diuresed. Patient refuses dialysis at this time. This was addressed in detail with the patient multiple times. Patient has reservations and refuses dialysis. Therefore cardiology did not recommend any intervention since the patient would require heart catheterization and dialysis. This was discussed in detail with cardiology and nephrology. Hospice was addressed with the patient in detail again. He refuses multiple times. At discharge he will continue with a 1500 cc per day fluid restriction and low-salt diet. Patient will also continue with Lasix 40 mg daily. Hospice referral will be made to be arranged at home. Patient may reconsider dialysis in the near future. It is recommended that he follow up with nephrology in 1 week to further discuss. Patient also found to have constipation with possible viral enteritis. This improved. Patient may continue with prune juice at home. At discharge he will continue with lactulose 30 mL twice daily as needed for constipation. Patient has hyperlipidemia. Patient will continue with Lipitor 10 mg 1 pill once daily. Patient has hypertension. Patient will continue with metoprolol 50 mg 1 pill twice daily. Recommendation to maintain blood pressure less than 150/80. Further adjustment can be done by his PCP. Patient has diabetes. Patient may continue with glipizide 10 mg 1 pill twice daily. Recommendation is to maintain blood sugars less 140 fasting and less than 200 after meals. I will recommend hospice at this time. Further adjustment can be done with hospice. Vital Signs/Physical Exam: Temp Pulse Resp BP Pulse Ox 98.2 F 67 16 190/67 H 99 02/04/18 08:00 02/04/18 08:59 02/04/18 08:00 02/04/18 08:59 02/04/18 08:00 General: Alert, In no apparent distress, Oriented x3, Cooperative HEENT: Atraumatic Neck: Supple Respiratory: Clear to auscultation bilaterally, Normal air movement Cardiovascular: Normal pulses, Regular rate/rhythm Gastrointestinal: Normal bowel sounds, Soft and benign, Non-distended, No tenderness, No masses, No rebound, No guarding Musculoskeletal: No erythema, No tenderness, No warmth Integumentary: No erythema, No warmth, No cyanosis, Tenderness/swelling (1+ pitting edema to the lower extremity) Neurological: Normal speech, Normal strength at 5/5 x4 extr, Normal tone, Normal affect Laboratory Data at Discharge: WBC 4.6 K/uL (4.3-10.9) D 02/02/18 16:15 Hgb 11.5 g/dL (13.6-17.9) L 02/02/18 16:15 Hct 33.9 % (39.6-49.0) L 02/02/18 16:15 Plt Count 213 K/uL (152-406) 02/02/18 16:15 PT 14.0 SECONDS (9.5-12.5) H 02/02/18 16:15 INR 1.18 02/02/18 16:15 APTT 31.9 SECONDS (24.3-36.9) 02/02/18 16:15 Sodium 137 mmol/L (136-145) 02/02/18 16:15 Potassium 4.3 mmol/L (3.5-5.1) 02/02/18 16:15 BUN 85 mg/dL (7-18) H 02/02/18 16:15 Creatinine 4.90 mg/dL (0.55-1.3) H 02/02/18 16:15 Glucose 123 mg/dL (74-106) H 02/02/18 16:15 Magnesium 2.1 mg/dL (1.8-2.4) 02/02/18 16:15 Total Bilirubin 0.4 mg/dL (0.2-1.0) 02/02/18 16:15 AST 19 U/L (15-37) 02/02/18 16:15 ALT 22 U/L (12-78) 02/02/18 16:15 Alkaline Phosphatase 83 U/L (45-117) 02/02/18 16:15 Lipase 130 U/L (73-393) 02/02/18 16:15 Home Medications: Atorvastatin Calcium [Lipitor*] 10 mg PO BEDTIME 12/15/17 Glipizide [Glipizide ER] 10 mg PO BIDWM 12/15/17 Metoprolol Succinate [Toprol Xl*] 50 mg PO BID 12/15/17 Furosemide [Lasix] 40 mg PO DAILY #30 tab 02/04/18 Lactulose [Cephulac*] 30 ml PO BID PRN #1 ucup 02/04/18 New Medications: Furosemide [Lasix] 40 mg PO DAILY #30 tab Lactulose [Cephulac*] 30 ml PO BID PRN #1 ucup PRN Reason: Constipation Patient Discharge Instructions: 1. Patient will need to follow up with PCP in 1 week to follow up this hospitalization. 2. Patient presented with shortness of breath secondary to systolic CHF, aortic stenosis and chronic end-stage renal disease not on dialysis. Patient was evaluated by cardiology and nephrology. Patient was diuresed. Patient refuses dialysis at this time. This was addressed in detail with the patient. At discharge patient will continue with a 1500 cc per day fluid restriction and low-salt diet. Patient will also continue with Lasix 40 mg daily. Hospice referral will be made to be arranged at home. Patient may reconsider dialysis in the near future. If it is recommended that he follow up with nephrology in 1 week to further discuss. 3. Patient found to have constipation with possible viral enteritis. This improved. Patient may continue with prune juice at home. At discharge she will continue with lactulose 30 mL twice daily as needed for constipation. 4. Patient has hyperlipidemia. Patient will continue with Lipitor 10 mg 1 pill once daily. 5. Patient has hypertension. Patient will continue with metoprolol 50 mg 1 pill twice daily. Recommendation to maintain blood pressure less than 150/80. Further adjustment can be done by his PCP. 6. Patient has diabetes. Patient may continue with glipizide 10 mg 1 pill twice daily. Recommendation is to maintain blood sugars less 140 fasting and less than 200 after meals. 7. I will recommend hospice at this time. Further adjustment can be done with hospice. Diet: Renal Activity: Fall precautions Time spent managing pt's care (in minutes): 55
--- NOTE | 2018-02-05 19:43 | P.PN ---
Date of Service: 02/04/18 Vital Signs Temp Pulse Resp BP Pulse Ox 98.2 F 67 16 190/67 H 99 02/04/18 08:00 02/04/18 08:59 02/04/18 08:00 02/04/18 08:59 02/04/18 08:00 Assessment/ Plan: Nephrology. Feeling better today. CPS improved without CP or SOB. +TREADWELL No acute events overnight. Case discussed with the patient and family at the bedside. Vitals, medications, blood work and imaging reviewed in the chart. NAD. MMM. NCAT. Neck supple. CTA. RRR. +SM. Soft Abd. No C/C. LE Edema 1+ . No rash. AAO. Normal speech. RLE ulcer. A/ CKD V in the setting of HTN, DM and NSAIDs. HTN with CKD. DM II with CKD. Anemia in chronic illness. A/C Diastolic CHF. . JUN/ Secondary HyperPTH. P/ Continue current POC and Medications. Counseled the patient and family regarding the possibility of dialysis. Case discussed with Dr. Mancilla. Agree with diuresis. No NSAIDs. Low sodium/ ADA diet. Will give Epo as needed. Recommend vitamin D and binders. AM labs. Daily weight. Greater than 35 minutes patient care.
== END 2018-02-04 11:53 | disposition home or self-care (01) ==
LOC: ER 15:04 → ERHOLD 19:52 → INTOOBSV 19:52 → 4TH 20:44
PROVIDERS: ADMIT Internal Medicine; ATTEND Internal Medicine
DX: I13.2 Hypertensive heart and chronic kidney disease with heart failure and with stage 5 chronic kidney disease, or end stage renal disease (principal); E11.22 Type 2 diabetes mellitus with diabetic chronic kidney disease; N18.6 End stage renal disease; I50.23 Acute on chronic systolic (congestive) heart failure; I35.0 Nonrheumatic aortic (valve) stenosis; K59.00 Constipation, unspecified; Z91.15 Patient's noncompliance with renal dialysis; E78.5 Hyperlipidemia, unspecified; I25.10 Atherosclerotic heart disease of native coronary artery without angina pectoris; D63.1 Anemia in chronic kidney disease
CPT/HCPCS: 36415; 71045; 74176; 80048; 80076; 82550; 82553; 82962; 83690; 83735; 83880; 84484; 85025; 85610; 85730; 93005; 96365; 96375; 99285; G0378; J0360; J0744; J1650; J2270

== ENCOUNTER 2018-03-13 19:07 | Emergency (ER) | payer OTHER ==
--- OUTSIDE RECORDS SUMMARY | 2018-03-13 19:09 | XMS REPORT | Clinical Summary ---
:1940 Author Organization [facility] Address [address] [place] [address] Phone Care Team Providers Name Role Phone Unavailable Primary Care Provider Unavailable Allergies No Known Allergies Current Medications Prescription Sig. Disp. Refills Start End Date Status Date pantoprazole Take 40 mg by Active (PROTONIX) 40 MG mouth 2 (two) tablet times daily. bimatoprost Place 1 drop into Active (LUMIGAN) 0.01 % both eyes nightly. Drop ophthalmic solution ergocalciferol Take 50,000 Units Active (VITAMIN D2) by mouth once a 50,000 unit week. capsule folic Take 1 tablet by Active acid-multivitamins mouth daily. (B COMPLEX-VITAMIN C-FOLIC ACID) 0.8 mg Tab tablet insulin detemir Inject 10 Units Active (LEVEMIR) 100 subcutaneously unit/mL (3 mL) nightly. InPn injection nitroglycerin Place 0.4 mg under Active (NITROSTAT) 0.4 MG the tongue every 5 SL tablet (five) minutes as needed for Chest pain Put 1 pill under tongue every 5min as needed for chest pain.No more than 3 doses in 15min.Call 911 if pain is unrelieved 5min after 1st dose . lactulose Take 20 g by mouth Active (CHRONULAC) 10 3 (three) times gram/15 mL (15 mL) daily. solution amiodarone Take 1 tablet (200 0 Active (PACERONE) 200 MG mg total) by mouth 7 tablet daily. latanoprost 1 drop nightly. Active (XALATAN) 0.005 % ophthalmic solution glipiZIDE Take 10 mg by Active (GLUCOTROL XL) 10 mouth 2 (two) MG 24 hr tablet times daily . amLODIPine Take 10 mg by Active (NORVASC) 10 MG mouth daily. 8 tablet aspirin 81 MG Take 81 mg by Active chewable tablet mouth daily. 7 atorvastatin Take 10 mg by Active (LIPITOR) 10 MG mouth daily. 8 tablet docusate sodium Take 100 mg by Active (COLACE) 100 MG mouth daily. 8 capsule enalapril Take 10 mg by Active (VASOTEC) 10 MG mouth daily. 8 tablet furosemide (LASIX) Take 40 mg by Active 40 MG tablet mouth daily. 8 metoprolol Take 50 mg by Active (LOPRESSOR) 50 MG mouth 2 (two) tablet times daily. ondansetron Take 4 mg by mouth Active (ZOFRAN) 4 MG as needed. 8 tablet traMADol-acetamino Take 1 tablet by Active phen (ULTRACET) mouth every 8 8 37.5-325 mg per (eight) hours as tablet needed. bumetanide (BUMEX) Take 0.5 mg by Active 0.5 MG tablet mouth 2 (two) times daily. tamsulosin Take 1 capsule 25 capsule 0 Active (FLOMAX) 0.4 mg (0.4 mg total) by 8 Cap 24 hr capsule mouth daily. atorvastatin Take 40 mg by 03/01/20 Discontinued (LIPITOR) 40 MG mouth nightly. 18 tablet brimonidine-timolo 1 drop 2 (two) 03/01/20 Discontinued l (COMBIGAN) times daily. 18 0.2-0.5 % ophthalmic solution aspirin 81 MG Take 1 tablet (81 30 tablet 07/22/19 chewable tablet mg total) by mouth 7 18 daily. metoprolol Take 1 tablet (25 60 tablet 07/22/19 (LOPRESSOR) 25 MG mg total) by mouth 7 18 tablet 2 (two) times daily. metoprolol Take 50 mg by 03/01/20 Discontinued (TOPROL-XL) 50 MG mouth daily. 18 24 hr tablet bumetanide (BUMEX) Take 0.5 mg by 03/01/20 Discontinued 0.5 MG tablet mouth daily. 18 bumetanide (BUMEX) Take 1 mg by mouth 03/01/20 Discontinued 1 MG tablet daily. 8 18 dorzolamide-timolo Apply 1 drop to 03/01/20 Discontinued l (COSOPT) eye(s) 2 (two) 7 18 22.3-6.8 mg/mL times daily. ophthalmic solution traMADol (ULTRAM) Take 1 tablet (50 20 tablet 0 03/11/20 50 mg tablet mg total) by mouth 8 18 every 8 (eight) hours as needed for up to 10 days. Max Daily Amount: 150 mg cefpodoxime Take 1 tablet (100 10 tablet 0 03/11/20 (VANTIN) 100 MG mg total) by mouth 8 18 tablet daily for 10 days. 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 Acute pulmonary insufficiency following thoracic surgery ([facility]) 07/04/2016 Acute postoperative pain 07/04/2016 CKD (chronic kidney disease) stage 3, GFR 30-59 ml/min 07/04/2016 Acute blood loss anemia 07/04/2016 Type 2 diabetes mellitus with hyperglycemia, without long-term current use of insulin ([facility]) Foreign body aspiration, initial encounter 07/04/2016 Mucus plugging of bronchi 07/04/2016 NSTEMI (non-ST elevated myocardial infarction) ([facility]) 07/01/2016 CAD (coronary artery disease) 10/16/2015 Encounters Date Type Specialty Care Team Description 03/03/2018 Emergency Emergency Medicine Franklyn Dawson MD 03/01/2018 Emergency Emergency Medicine Macrina Gómez MD Urinary retention (Primary Dx);Right lower quadrant abdominal pain;Renal insufficiency;Hypertens kaley urgency 03/01/2018 Orders Only General Internal Medicine after 03/12/2017 Family History Medical History Relation Name Comments Unremarkable Mother Relation Name Status Comments Father Mother Alive Social History Tobacco Use Types Packs/Day Years Used Date Never Smoker Alcohol Use Drinks/Week oz/Week Comments No Sex Assigned at Date Recorded Not on file Last Filed Vital Signs Vital Sign Reading Time Taken Blood Pressure 208/84 03/03/2018 11:25 AM CDT Pulse 70 03/03/2018 11:25 AM CDT Temperature 36.8 C (98.2 F) 03/03/2018 10:32 AM CDT Respiratory Rate 18 03/03/2018 11:25 AM CDT Oxygen Saturation 95% 03/03/2018 11:25 AM CDT Inhaled Oxygen Concentration - - Weight 63.5 kg (140 lb) 03/03/2018 10:32 AM CDT Height 165.1 cm (5' 5") 03/03/2018 10:32 AM CDT Body Mass Index 23.3 03/03/2018 10:32 AM CDT Plan of Treatment Not on file Results Urinalysis w/Microscopic (03/03/2018 11:08 AM)Only the most recent of2 resultswithin the time period is included. Component Value Ref Range Color, UA Yellow Clarity, UA Hazy Specific [place], UA 1.012 1.001 - 1.035 pH, UA 6.0 5.0 - 8.0 Protein, UA 600 mg/dL (A) Negative Glucose, UA 100 mg/dL (A) Negative Ketones, UA Negative Negative Bilirubin, UA Negative Negative Blood, UA Moderate (A) Negative Nitrite, UA Negative Negative Leukocytes, UA Small (A) Negative Urobilinogen, UA 0.2 0.2 - 1.0 mg/dL RBC, UA 27 /HPF WBC, UA 12 /HPF Bacteria, UA Occasional Mucus Rare Squam Epithel, UA <1 /HPF Hyaline Casts, UA 2 /LPF Granular Casts, UA 5 /LPF Specimen Source Urine, Yusuf Specimen Performing Laboratory Urine - Urine, [address] [address] Urine culture (03/03/2018 11:08 AM) Component Value Ref Range Result 70-79,000 col/mL Pseudomonas aeruginosa (A) Specimen Performing Laboratory Urine - Urine, [address] [address] Organism Antibiotic Method Susceptibility Pseudomonas aeruginosa Amikacin <=8: Susceptible Pseudomonas aeruginosa Aztreonam 4: Susceptible Pseudomonas aeruginosa Cefepime <=4: Susceptible Pseudomonas aeruginosa Ceftazidime 2: Susceptible Pseudomonas aeruginosa Ciprofloxacin <=0.5: Susceptible Pseudomonas aeruginosa Gentamicin <=2: Susceptible Pseudomonas aeruginosa Levofloxacin <=1: Susceptible Pseudomonas aeruginosa Meropenem 1: Susceptible Pseudomonas aeruginosa Piperacillin <=16: Susceptible Pseudomonas aeruginosa Piperacillin + Tazobactam <=8: Susceptible Pseudomonas aeruginosa Tobramycin <=2: Susceptible ED ECG Interpretation (03/02/2018 7:12 AM) Narrative Macrina Gómez MD 03/02/20187:12 AM ECG/EKG Interpretation Date/Time: 03/01/2018 10:25 AM Performed by: MACRINA GÓMEZ Authorized by: MACRINA GÓMEZ The ECG was interpreted by ED physician. The ECG is interpreted as sinus rhythm. Rate is normal rate. Conduction: conduction normal. ST segments abnormal. T waves abnormal. [place] is normal. Other findings: no other findings. Clinical Impression: non-specific ECG and abnormal ECG CT abdomen pelvis without contrast (03/01/2018 1:46 PM) Specimen Performing Laboratory DNART LIMITADA Narrative FINAL REPORT ABDOMINAL AND PELVIS CT DATED 03/01/2018 CLINICAL INFORMATION:RLQ pain, appendicitis suspected ABDOMINAL PAIN TECHNIQUE:Axial images of the abdomen and pelvis were obtained from diaphragm to the pubic symphysis without GI or intravenous contrast. This exam was performed according to our departmental dose-optimization program, which includes automated exposure control, adjustment of the mA and/or kV according to patient size and/or use of interactive reconstruction technique. COMMENT: Heart is enlarged. There is small left pleural effusion and a moderate right pleural effusion. Subsegmental atelectasis is seen in both lower lobes. Liver and spleen are normal in size without focal abnormality. Gallbladder is contracted. No gallstone or biliary dilatation is noted. Pancreas and adrenals are unremarkable. Both kidneys are normal in size. No hydronephrosis, hydroureter, urolithiasis is seen. Diverticular disease is seen in the large bowel without diverticulitis. The small bowel and appendix are normal in caliber. Prostate is enlarged measuring approximately 4.5 x 4.7 x 4.8 cm. The urinary bladder is distended. Atherosclerotic calcification is seen in the abdominal aorta, splenic, superior mesenteric, inferior mesenteric, bilateral renal, and bilateral iliac arteries. Degenerative changes are seen in the dorsal spine. No mass, adenopathy or ascites is present. IMPRESSION: 1. Cardiomegaly. 2. Bilateral pleural effusion with bibasilar subsegmental atelectasis. 3. Diverticulosis without diverticulitis. 4. Prostate enlargement. 5. Atherosclerotic calcification in the abdominal aorta and branch vessels. Signed: Brady Quiros MD Report Verified Date/Time:03/01/2018 15:15:27 Reading Location: [facility] C0[facility] CT Body Reading Room Procedure Note Interface, External Ris In - 03/01/2018 3:17 PM CDT FINAL REPORT ABDOMINAL AND PELVIS CT DATED 03/01/2018 CLINICAL INFORMATION: RLQ pain, appendicitis suspected ABDOMINAL PAIN TECHNIQUE: Axial images of the abdomen and pelvis were obtained from diaphragm to the pubic symphysis without GI or intravenous contrast. This exam was performed according to our departmental dose-optimization program, which includes automated exposure control, adjustment of the mA and/or kV according to patient size and/or use of interactive reconstruction technique. COMMENT: Heart is enlarged. There is small left pleural effusion and a moderate right pleural effusion. Subsegmental atelectasis is seen in both lower lobes. Liver and spleen are normal in size without focal abnormality. Gallbladder is contracted. No gallstone or biliary dilatation is noted. Pancreas and adrenals are unremarkable. Both kidneys are normal in size. No hydronephrosis, hydroureter, urolithiasis is seen. Diverticular disease is seen in the large bowel without diverticulitis. The small bowel and appendix are normal in caliber. Prostate is enlarged measuring approximately 4.5 x 4.7 x 4.8 cm. The urinary bladder is distended. Atherosclerotic calcification is seen in the abdominal aorta, splenic, superior mesenteric, inferior mesenteric, bilateral renal, and bilateral iliac arteries. Degenerative changes are seen in the dorsal spine. No mass, adenopathy or ascites is present. IMPRESSION: 1. Cardiomegaly. 2. Bilateral pleural effusion with bibasilar subsegmental atelectasis. 3. Diverticulosis without diverticulitis. 4. Prostate enlargement. 5. Atherosclerotic calcification in the abdominal aorta and branch vessels. Signed: Brady Quiros MD Report Verified Date/Time: 03/01/2018 15:15:27 Reading Location: [facility] [id number] CT Body Reading Room with platelet count + automated diff (03/01/2018 10:29 AM) Component Value Ref Range WBC 5.6 3.5 - 10.5 K/L RBC 3.10 (L) 4.63 - 6.08 M/L Hemoglobin 9.8 (L) 13.7 - 17.5 GM/DL Hematocrit 29.7 (L) 40.1 - 51.0 % MCV 95.8 (H) 79.0 - 92.2 fL MCH 31.6 25.7 - 32.2 pg MCHC 33.0 32.3 - 36.5 GM/DL RDW 14.0 11.6 - 14.4 % Platelets 171 150 - 450 K/CU MM MPV 11.1 9.4 - 12.4 fL nRBC 0 0 - 0 /100 WBC % Neutros 69 % % Lymphs 16 % % Monos 10 % % Eos 4 % % Baso 1 % # Neutros 3.88 1.78 - 5.38 K/L # Lymphs 0.88 (L) 1.32 - 3.57 K/L # Monos 0.56 0.30 - 0.82 K/L # Eos 0.25 0.04 - 0.54 K/L # Baso 0.03 0.01 - 0.08 K/L Immature Granulocytes-Relative 0 0 - 1 % Specimen Performing Laboratory Blood - Arm, [address] [address] CBC with platelet count + automated diff (03/01/2018 10:29 AM) Specimen Performing Laboratory Blood Narrative The following orders were created for panel order CBC with platelet count + automated diff. Procedure Abnormality Status --------- ------ CBC with platelet count ...[[id number]]AbnormalFinal result Please view results for these tests on the individual orders. Lipase (03/01/2018 10:29 AM) Component Value Ref Range Lipase 61 8 - 78 U/L Specimen Performing Laboratory Blood - Arm, [address] [address] Amylase (03/01/2018 10:29 AM) Component Value Ref Range Amylase 113 25 - 125 U/L Specimen Performing Laboratory Blood - Arm, [address] [address] Hepatic function panel (03/01/2018 10:29 AM) Component Value Ref Range Protein, Total 6.8 6.0 - 8.3 gm/dL Albumin 3.5 3.5 - 5.0 g/dL Total Bilirubin 0.4 0.2 - 1.2 mg/dL Bilirubin, Direct 0.2 0.1 - 0.5 mg/dL Alkaline Phosphatase 78 40 - 150 U/L AST 20 5 - 34 U/L ALT 21 6 - 55 U/L Specimen Performing Laboratory Blood - Arm, [address] [address] Basic Metabolic Panel (03/01/2018 10:29 AM) Component Value Ref Range Sodium 136 136 - 145 meq/L Potassium 4.0 3.5 - 5.1 meq/L Chloride 108 (H) 98 - 107 meq/L CO2 15 (L) 22 - 29 meq/L BUN 80 (H) 7 - 21 mg/dL Creatinine 4.79 (H) 0.57 - 1.25 mg/dL Glucose 84 70 - 105 mg/dL Calcium 8.9 8.4 - 10.2 mg/dL EGFR 12Comment: ESTIMATED GFR IS NOT ACCURATE mL/min/1.73 sq m CREATININE CLEARANCE IN PREDICTING GLOMERULAR FILTRATION RATE. ESTIMATED GFR IS NOT APPLICABLE FOR DIALYSIS PATIENTS. Specimen Performing Laboratory Blood - Arm, [address] [address] ECG 12 lead (03/01/2018 10:20 AM) Specimen Performing Laboratory GE MUSE Narrative Ventricular Rate 62 BPM Atrial Rate 62 BPM P-R Interval 178 ms QRS Duration 96 ms Q-T Interval 452 ms QTC Calculation(Bazett) 458 ms P [place] 66 degrees R [place] -24 degrees T [place] 140 degrees Normal sinus rhythm Possible Left atrial enlargement Left ventricular hypertrophy+ repolarization changes Cannot rule out Septal infarct , age undetermined T wave inversion lateral leads consider postischemic changes Abnormal ECG When compared with ECG of 17-JUL-2016 15:36, ST no longer elevated in Inferior leads , V1-V2 T wave amplitude has increased in Anterior leads QT has shortened Confirmed by MD AMANDA, STEFFI ([id number]) on 03/02/2018 6:54:28 AM Procedure Note Interface, External Ris In - 03/02/2018 6:54 AM CDT Ventricular Rate 62 BPM Atrial Rate 62 BPM P-R Interval 178 ms QRS Duration 96 ms Q-T Interval 452 ms QTC Calculation(Bazett) 458 ms P [place] 66 degrees R [place] -24 degrees T [place] 140 degrees Normal sinus rhythm Possible Left atrial enlargement Left ventricular hypertrophy + repolarization changes Cannot rule out Septal infarct , age undetermined T wave inversion lateral leads consider postischemic changes Abnormal ECG When compared with ECG of 17-JUL-2016 15:36, ST no longer elevated in Inferior leads , V1-V2 T wave amplitude has increased in Anterior leads QT has shortened Confirmed by MD AMANDA, STEFFI ([id number]) on 03/02/2018 6:54:28 AM after 03/12/2017
--- OUTSIDE RECORDS SUMMARY | 2018-03-13 19:09 | XMS REPORT ---
:1940 Author Organization [facility] Address [address] [place] [address] Dr. Manley [address] [place] [id number] Care Team Providers Name Role Phone RODNEY NESBITT DAVID Unavailable Unavailable LAYLA GÓMEZ Unavailable Unavailable Problems This patient has no known problems. Allergies, Adverse Reactions, Alerts This patient has no known allergies or adverse reactions. Medications This patient has no known medications. Results Test Description Test Time Test Comments Text Results Atomic Results Result Comments URINE CULTURE 2018-03-06 10:04:00 Test Item Value Reference Range Comments CULTURE (BEAKER) (test PSEUDOMONAS 70-79,000 col/mL juwq=4523) AERUGINOSA Pseudomonas aeruginosa Amikacin (test code=1) Susceptible 0-16 , Resistant <0 or >16 Aztreonam (test Susceptible 0-8 , code=32) Resistant <0 or >8 Cefepime (test code=51) Susceptible 0-8 , Resistant <0 or >8 Ceftazidime (test Susceptible 0-8 , code=27) Resistant <0 or >8 Ciprofloxacin (test Susceptible 0-1 , code=7) Resistant <0 or >1 Gentamicin (test Susceptible 0-4 , code=18) Resistant <0 or >4 Levofloxacin (test Susceptible 0-2 , code=22) Resistant <0 or >2 Meropenem (test Susceptible 0-2 , code=34) Resistant <0 or >2 Piperacillin (test Susceptible 0-16 , code=24) Resistant <0 or >16 Piperacillin + Susceptible 0-16 , Tazobactam (test Resistant <0 or >16 code=29) Tobramycin (test Susceptible 0-4 , code=25) Resistant <0 or >4 URINALYSIS W/ [id number] 12:06:00 Test Item Value Reference Range Comments COLOR (BEAKER) (test toxr=007) Yellow CLARITY (BEAKER) (test ynzx=098) Hazy SPECIFIC GRAVITY UA (BEAKER) (test faic=917) 1.012 1.001-1.035 PH UA (BEAKER) (test hfiu=817) 6.0 5.0-8.0 PROTEIN UA (BEAKER) (test qvlf=161) 600 mg/dL Negative GLUCOSE UA (BEAKER) (test ybol=997) 100 mg/dL Negative KETONES UA (BEAKER) (test hyux=015) Negative Negative BILIRUBIN UA (BEAKER) (test htzu=258) Negative Negative BLOOD UA (BEAKER) (test ogts=981) Moderate Negative NITRITE UA (BEAKER) (test nnsf=977) Negative Negative LEUKOCYTE ESTERASE UA (BEAKER) (test xhoy=388) Small Negative UROBILINOGEN UA (BEAKER) (test ifbj=103) 0.2 mg/dL 0.2-1.0 RBC UA (BEAKER) (test zvhg=000) 27 /HPF WBC UA (BEAKER) (test rant=576) 12 /HPF BACTERIA (BEAKER) (test yisp=943) Occasional MUCUS (BEAKER) (test eceg=4544) Rare SQUAMOUS EPITHELIAL (BEAKER) (test wzhq=002) < /HPF HYALINE CASTS (BEAKER) (test rbmg=207) 2 /LPF GRANULAR CASTS (BEAKER) (test jaha=071) 5 /LPF SOURCE(BEAKER) (test pixg=6019) Urine, Yusuf CT, [id number] 15:15:00Reason for exam:->ABDOMINAL PAINWhat is the patient's sedation requirement?->No SedationFINAL REPORT ABDOMINAL AND PELVIS CT DATED 03/01/2018 CLINICAL INFORMATION: RLQ pain, appendicitis suspectedABDOMINAL PAIN TECHNIQUE: Axial images of the abdomen [...] small left pleural effusion and a moderate rightpleural effusion. Subsegmental atelectasis is seen in both lower lobes. Liver and spleen are normal in size without focal abnormality. Gallbladder is contracted. No gallstone or biliary dilatation is noted. Pancreas and adrenals are unremarkable. Both kidneys are normal in size. No hydronephrosis,hydroureter, urolithiasis is seen. Diverticular disease is seen in the large bowel without diverticulitis. The small bowel and appendix are normal in caliber. Prostate is enlarged measuring approximately 4.5 x 4.7 x 4.8 cm. The urinary bladder is distended. Atherosclerotic calcification is seen in theabdominal aorta, splenic, superior mesenteric, inferior mesenteric, bilateral renal, and bilateral iliac arteries. Degenerative changes are seen in the dorsal spine. No mass, adenopathy or ascites is present. IMPRESSION: 1. Cardiomegaly.2. Bilateral pleural effusion with bibasilar subsegmental atelectasis.3. Diverticulosis without diverticulitis.4. Prostate enlargement.5. Atherosclerotic calcification in the abdominal aorta and branch vessels. Signed: Brady Quiros MDReport Verified Date/ Time: 03/01/2018 15:15:27 Reading Location: [address] Body Reading Room BASI METABOLIC [id number] 11:04:00 Test Item Value Reference Range Comments SODIUM (BEAKER) (test 136 meq/L 136-145 daab=053) POTASSIUM (BEAKER) (test 4.0 meq/L 3.5-5.1 rioy=261) CHLORIDE (BEAKER) (test 108 meq/L 98-107 bbhf=853) CO2 (BEAKER) (test 15 meq/L 22-29 oqsc=417) BLOOD UREA NITROGEN 80 mg/dL 7-21 (BEAKER) (test ogtf=010) CREATININE (BEAKER) (test 4.79 mg/dL 0.57-1.25 jptz=863) GLUCOSE RANDOM (BEAKER) 84 mg/dL 70-105 (test kyvh=836) CALCIUM (BEAKER) (test 8.9 mg/dL 8.4-10.2 qmsj=917) EGFR (BEAKER) (test 12 mL/min/1.73 sq m ESTIMATED GFR IS NOT fmvr=7212) ACCURATE CREATININE CLEARANCE IN PREDICTING GLOMERULAR FILTRATION RATE. ESTIMATED GFR IS NOT APPLICABLE FOR DIALYSIS PATIENTS. [id number] 11:02:00 Test Item Value Reference Range Comments LIPASE (BEAKER) (test qndv=913) 61 U/L 8-78 [id number] 11:02:00 Test Item Value Reference Range Comments AMYLASE (BEAKER) (test pmaw=495) 113 U/L 25-125 HEPATIC FUNCTION [id number] 11:02:00 Test Item Value Reference Range Comments TOTAL PROTEIN (BEAKER) (test tzxh=754) 6.8 gm/dL 6.0-8.3 ALBUMIN (BEAKER) (test pdky=8565) 3.5 g/dL 3.5-5.0 BILIRUBIN TOTAL (BEAKER) (test gadf=650) 0.4 mg/dL 0.2-1.2 BILIRUBIN DIRECT (BEAKER) (test zzaj=521) 0.2 mg/dL 0.1-0.5 ALKALINE PHOSPHATASE (BEAKER) (test lotv=230) 78 U/L 40-150 AST (SGOT) (BEAKER) (test ihdf=051) 20 U/L 5-34 ALT (SGPT) (BEAKER) (test yzng=766) 21 U/L 6-55 URINALYSIS W/ [id number] 11:01:00 Test Item Value Reference Range Comments COLOR (BEAKER) (test ymqh=662) Light Yellow CLARITY (BEAKER) (test ieck=540) Clear SPECIFIC GRAVITY UA (BEAKER) (test nyuo=198) 1.006 1.001-1.035 PH UA (BEAKER) (test yfcq=863) 6.0 5.0-8.0 PROTEIN UA (BEAKER) (test wicl=137) 300 mg/dL Negative GLUCOSE UA (BEAKER) (test hsue=404) 30 mg/dL Negative KETONES UA (BEAKER) (test nqxf=772) Negative Negative BILIRUBIN UA (BEAKER) (test nwpx=362) Negative Negative BLOOD UA (BEAKER) (test czwa=734) Trace Negative NITRITE UA (BEAKER) (test ktyr=210) Negative Negative LEUKOCYTE ESTERASE UA (BEAKER) (test bgou=948) Negative Negative UROBILINOGEN UA (BEAKER) (test rqea=075) 0.2 mg/dL 0.2-1.0 RBC UA (BEAKER) (test agse=436) < /HPF WBC UA (BEAKER) (test jenw=143) < /HPF BACTERIA (BEAKER) (test cpzs=286) Rare MUCUS (BEAKER) (test kjcw=6181) Rare SOURCE(BEAKER) (test usos=2968) Urine, Voided CBC W/PLT COUNT & AUTO [id number] 10:49:00 Test Item Value Reference Range Comments WHITE BLOOD CELL COUNT (BEAKER) (test fcgo=559) 5.6 K/ L 3.5-10.5 RED BLOOD CELL COUNT (BEAKER) (test urma=329) 3.10 M/ L 4.63-6.08 HEMOGLOBIN (BEAKER) (test ekru=874) 9.8 GM/DL 13.7-17.5 HEMATOCRIT (BEAKER) (test dbhy=026) 29.7 % 40.1-51.0 MEAN CORPUSCULAR VOLUME (BEAKER) (test mfue=687) 95.8 fL 79.0-92.2 MEAN CORPUSCULAR HEMOGLOBIN (BEAKER) (test 31.6 pg 25.7-32.2 hlub=147) MEAN CORPUSCULAR HEMOGLOBIN CONC (BEAKER) (test 33.0 GM/DL 32.3-36.5 ivyi=285) RED CELL DISTRIBUTION WIDTH (BEAKER) (test 14.0 % 11.6-14.4 qoqs=894) PLATELET COUNT (BEAKER) (test petc=466) 171 K/CU MM 150-450 MEAN PLATELET VOLUME (BEAKER) (test nkiy=590) 11.1 fL 9.4-12.4 NUCLEATED RED BLOOD CELLS (BEAKER) (test 0 /100 WBC 0-0 ywyd=278) NEUTROPHILS RELATIVE PERCENT (BEAKER) (test 69 % wzbp=982) LYMPHOCYTES RELATIVE PERCENT (BEAKER) (test 16 % eaoa=661) MONOCYTES RELATIVE PERCENT (BEAKER) (test 10 % txlu=819) EOSINOPHILS RELATIVE PERCENT (BEAKER) (test 4 % wlkb=196) BASOPHILS RELATIVE PERCENT (BEAKER) (test 1 % myvu=920) NEUTROPHILS ABSOLUTE COUNT (BEAKER) (test 3.88 K/ L 1.78-5.38 wonc=274) LYMPHOCYTES ABSOLUTE COUNT (BEAKER) (test 0.88 K/ L 1.32-3.57 koqx=525) MONOCYTES ABSOLUTE COUNT (BEAKER) (test 0.56 K/ L 0.30-0.82 ytax=770) EOSINOPHILS ABSOLUTE COUNT (BEAKER) (test 0.25 K/ L 0.04-0.54 qhug=917) BASOPHILS ABSOLUTE COUNT (BEAKER) (test 0.03 K/ L 0.01-0.08 lvot=097) IMMATURE GRANULOCYTES-RELATIVE PERCENT (BEAKER) 0 % 0-1 (test xoth=8185)
[2018-03-13] MEDS ORDERED: LORazepam 2 MG/ML VIAL ONE (19:59)
--- NOTE | 2018-03-13 21:35 | EDPHYS ---
Physician Documentation [facility] Name: Blaise Quarles Age: 77 yrs Sex: Male : 1940 Arrival Date: 03/13/2018 Time: 19:08 Bed 4 Private MD: ED Physician Gilbert Vasquez HPI: 03/13 20:08 This 77 yrs old Male presents to ER via Wheelchair with complaints of High tw4 Blood Pressure. 20:08 The patient has elevated blood pressure and discovered this at home. Onset: The tw4 symptoms/episode began/occurred today. Modifying factors: The symptoms are aggravated by activity, The symptoms are alleviated by. Associated signs and symptoms: Pertinent positives: chest pain. Severity of symptoms: At its worst the blood pressure was moderate. Historical: - Allergies: 19:16 No Known Allergies; la1 - Home Meds: 19:53 atorvastatin 10 mg Oral tab 1 tab once daily [Active]; bumetanide 0.5 mg Oral tab 1 tab tl2 once daily [Active]; cephalexin 500 mg Oral cap 1 cap every 12 hours [Active]; cephalexin 500 mg Oral tab 1 tab q 8 hours [Active]; doxycycline hyclate 100 mg Oral cap 1 cap every 12 hours [Active]; enalapril maleate 10 mg Oral tab 1 tab once daily [Active]; glipizide 10 mg Oral tab 1 tab 2 times per day [Active]; metoprolol tartrate 50 mg Oral tab 1 tab once daily [Active]; tramadol 37.5mg Oral tab 1 cap for Pain [Active]; Tramadol Oral [Active]; - PMHx: 19:16 Anemia; CAD; chronic renal disease; Diabetes - IDDM; Hypertension; Myocardial la1 infarction; pulmonary nodule; Visually impared; - Immunization history:: Adult Immunizations up to date. - Social history:: Smoking status: unknown. - Ebola Screening: : No symptoms or risks identified at this time. ROS: 03/14 05:13 Constitutional: Negative for fever, chills, and weight loss, Eyes: Negative for injury, tw4 pain, redness, and discharge. Respiratory: Negative for shortness of breath, cough, wheezing, and pleuritic chest pain, Abdomen/GI: Negative for abdominal pain, nausea, vomiting, diarrhea, and constipation, Back: Negative for injury and pain, MS/Extremity: Negative for injury and deformity, Skin: Negative for injury, rash, and discoloration, Neuro: Negative for headache, weakness, numbness, tingling, and seizure. Cardiovascular: Positive for chest pain. Exam: 05:13 Constitutional: This is a well developed, well nourished patient who is awake, alert, tw4 and in no acute distress. Head/Face: Normocephalic, atraumatic. Chest/axilla: Normal chest wall appearance and motion. Nontender with no deformity. No lesions are appreciated. Cardiovascular: Regular rate and rhythm with a normal S1 and S2. No gallops, murmurs, or rubs. Normal PMI, no JVD. No pulse deficits. Respiratory: Lungs have equal breath sounds bilaterally, clear to auscultation and percussion. No rales, rhonchi or wheezes noted. No increased work of breathing, no retractions or nasal flaring. Abdomen/GI: Soft, non-tender, with normal bowel sounds. No distension or tympany. No guarding or rebound. No evidence of tenderness throughout. Back: No spinal tenderness. No costovertebral tenderness. Full range of motion. MS/ Extremity: Pulses equal, no cyanosis. Neurovascular intact. Full, normal range of motion. Neuro: Awake and alert, GCS 15, oriented to person, place, time, and situation. Cranial nerves II-XII grossly intact. Motor strength 5/5 in all extremities. Sensory grossly intact. Cerebellar exam normal. Normal gait. Vital Signs: 03/13 19:16 BP 199 / 78; Pulse 72; Resp 18; Temp 98.1(TE); Pulse Ox 100% on R/A; la1 19:53 BP 157 / 92; Pulse 78; Resp 24; Pulse Ox 100% on R/A; tl2 MDM: 19:25 Patient medically screened. tw4 03/14 05:13 Differential diagnosis: hypertensive crisis, Malignant HTN. Data reviewed: vital signs, tw4 nurses notes. Data interpreted: technology consultant: rhythm is normal sinus rhythm, Pulse oximetry: Interpretation: normal. Counseling: I had a detailed discussion with the patient and/or guardian regarding: the historical points, exam findings, and any diagnostic results supporting the discharge/admit diagnosis. Refusal of service: The patient/guardian displays adequate decision making capability and despite a detailed discussion of alternatives, benefits, risks, and consequences refuses: Admission to the hospital for further work-up and treatment, CT Scan, all lab tests, Medications, all X-rays. ED course: Pt alert and oriented times three state that he does not want treatment. Risks of leaning explained to patient and his family, understood by both parties. EC:42 Rate is 77 beats/min. Rhythm is regular. HI interval is normal. QRS interval is normal. tw4 QT interval is normal. No Q waves. T waves are Normal. No ST changes noted. Clinical impression: Abnormal EKG without significant change. Interpreted by me. Reviewed by me. Administered Medications: 03/13 20:06 Not Given (Patient Refused): Ativan 1 mg IM once bb Disposition: 03/13/18 21:34 Patient has left against medical advice. - Patients states they are going to Home. - Condition is Stable. - Discharge Instructions: Nonspecific Chest Pain. Follow up: Private Physician; When: Upon discharge from the Emergency Department; Reason: Further diagnostic work-up, Recheck today's complaints, Re-evaluation by your physician. - Problem is new. - Symptoms are unchanged. Signatures: Naima Rojas RN RN bb Richie Dubose RN RN la1 Tamar Saldana RN RN tl2 Gilbert Vasquez MD MD tw4 Corrections: (The following items were deleted from the chart) 21:42 21:34 03/13/2018 21:34 Patients has left against medical advice. Patient states they bb are going to Home. Condition is Stable. Follow up: Private Physician; When: Upon discharge from the Emergency Department; Reason: Further diagnostic work-up, Recheck today's complaints, Re-evaluation by your physician. Problem is new. Symptoms are unchanged. tw4
--- NOTE | 2018-03-13 21:35 | ER ---
Nurse's Notes [facility] Name: Blaise Quarles Age: 77 yrs Sex: Male : 1940 Arrival Date: 03/13/2018 Time: 19:08 Bed 4 Private MD: Diagnosis: Presentation: 03/13 19:15 Presenting complaint: Patient states: Chest pain, SOB, pain in back since 0700. high BP la1 at home 240s over 100. Transition of care: patient was not received from another setting of care. Onset of symptoms was March 13, 2018. Risk Assessment: Do you want to hurt yourself or someone else? Patient reports no desire to harm self or others. Initial Sepsis Screen: Does the patient meet any 2 criteria? No. Patient's initial sepsis screen is negative. Does the patient have a suspected source of infection? No. Patient's initial sepsis screen is negative. Care prior to arrival: None. 19:15 Method Of Arrival: Wheelchair la1 19:15 Acuity: SARATH 2 la1 Historical: - Allergies: 19:16 No Known Allergies; la1 - Home Meds: 19:53 atorvastatin 10 mg Oral tab 1 tab once daily [Active]; bumetanide 0.5 mg Oral tab 1 tab tl2 once daily [Active]; cephalexin 500 mg Oral cap 1 cap every 12 hours [Active]; cephalexin 500 mg Oral tab 1 tab q 8 hours [Active]; doxycycline hyclate 100 mg Oral cap 1 cap every 12 hours [Active]; enalapril maleate 10 mg Oral tab 1 tab once daily [Active]; glipizide 10 mg Oral tab 1 tab 2 times per day [Active]; metoprolol tartrate 50 mg Oral tab 1 tab once daily [Active]; tramadol 37.5mg Oral tab 1 cap for Pain [Active]; Tramadol Oral [Active]; - PMHx: 19:16 Anemia; CAD; chronic renal disease; Diabetes - IDDM; Hypertension; Myocardial la1 infarction; pulmonary nodule; Visually impared; - Immunization history:: Adult Immunizations up to date. - Social history:: Smoking status: unknown. - Ebola Screening: : No symptoms or risks identified at this time. Screenin:48 Abuse screen: Denies threats or abuse. Nutritional screening: No deficits noted. tl2 Tuberculosis screening: No symptoms or risk factors identified. Fall Risk Fall in past 12 months (25 points). Assessment: 19:48 General: Appears in no apparent distress. uncomfortable, Behavior is anxious, tl2 combative, uncooperative. Pain: Complains of pain in chest Pain does not radiate. Neuro: Level of Consciousness is awake, alert, Oriented to person, place, time, situation. Cardiovascular: Chest pain is described as severe, quality is sharp, is located in anterior. Respiratory: Airway is patent Respiratory effort is even, labored, Respiratory pattern is tachypnea. GI: No signs and/or symptoms were reported involving the gastrointestinal system. : No signs and/or symptoms were reported regarding the genitourinary system. Derm: Skin is pink, warm \T\ dry. 19:57 Reassessment: Pt being combative and refusing treatment. Charge nurse at bedside, tl2 notified. 20:06 Reassessment: Dr Vasquez at bedside for discussion of recommendations of pt needing to bb be evaluated and treated but pt refusing treatment. Dr Vasquez had long discussion with pt and family on need for treatment. Pt and family still refusing treatment and now state the pt wants to go home AMA. Anusha RN at bedside for explanation of risks of pt leaving against medical advice including worsening of condition and possible . Pt and family verbalized understanding of risks of leaving against medical advice. Pt signed AMA. Vital Signs: 19:16 BP 199 / 78; Pulse 72; Resp 18; Temp 98.1(TE); Pulse Ox 100% on R/A; la1 19:53 BP 157 / 92; Pulse 78; Resp 24; Pulse Ox 100% on R/A; tl2 ED Course: 19:08 Patient arrived in ED. mr 19:15 Triage completed. la1 19:16 Arm band placed on left wrist. la1 19:24 Gilbert Vasquez MD is Attending Physician. tw4 19:48 Patient has correct armband on for positive identification. Placed in gown. Bed in low tl2 position. Call light in reach. Side rails up X2. Adult w/ patient. Administered Medications: 20:06 Not Given (Patient Refused): Ativan 1 mg IM once bb Outcome: 21:42 Patient left the ED. bb 21:42 AMA AMA form signed tl1 21:42 Condition: unchanged 21:42 Instructed on the need for admit. Signatures: Keara Amaya Brenda, RN RN bb Richie Dubose RN RN la1 Shavon Clemente RN RN tl1 Tamar Saldana RN RN tl2 Gilbert Vasquez MD MD tw4
[2018-03-13 21:57] VITALS: TEMP 98.1; O2SAT 100
[2018-03-13 21:58] VITALS: BP 157/92
--- NOTE | 2018-03-15 07:57 | EKG ---
Test Date: 2018-03-13 Test Time: 19:23:48 Psychiatric Secretary: MARISEL MEASUREMENT RESULTS: Intervals: Rate: 77 NY: 174 QRSD: 102 QT: 398 QTc: 450 Oscar: P: 78 NY: 174 QRS: -25 T: 103 INTERPRETIVE STATEMENTS: Normal sinus rhythm Possible Left atrial enlargement Left ventricular hypertrophy Cannot rule out Septal infarct, age undetermined Inferior infarct, age undetermined Abnormal ECG Compared to ECG 02/02/2018 18:05:41 Sinus bradycardia no longer present Left-axis deviation no longer present ST (T wave) deviation no longer present Possible ischemia no longer present Myocardial infarct finding still present Electronically Signed On 03-15-18 07:55:09 CDT by Brandon Pérez
== END 2018-03-13 21:42 | disposition left against medical advice (07) ==
LOC: ER 19:07
DX: I16.9 Hypertensive crisis, unspecified (principal); I25.10 Atherosclerotic heart disease of native coronary artery without angina pectoris; E11.22 Type 2 diabetes mellitus with diabetic chronic kidney disease; I12.9 Hypertensive chronic kidney disease with stage 1 through stage 4 chronic kidney disease, or unspecified chronic kidney disease; N18.9 Chronic kidney disease, unspecified; Z79.84 Long term (current) use of oral hypoglycemic drugs; D64.9 Anemia, unspecified; I25.2 Old myocardial infarction; R91.1 Solitary pulmonary nodule; H54.7 Unspecified visual loss; R07.9 Chest pain, unspecified
CPT/HCPCS: 93005; 99284

== ENCOUNTER 2018-03-15 14:33 | Observation (INO) | payer OTHER ==
--- OUTSIDE RECORDS SUMMARY | 2018-03-15 14:35 | XMS REPORT | Clinical Summary ---
:1940 Author Organization [facility] Address [address] [place] [address] Phone Care Team Providers Name Role Phone [...] Problem Noted Date Acute renal failure (ARF) ([facility]) 07/16/2016 S/P CABG x 3 07/04/2016 Acute pulmonary insufficiency following thoracic surgery ([facility]) 07/04/2016 Acute postoperative pain 07/04/2016 CKD (chronic kidney disease) stage 3, GFR 30-59 ml/min 07/04/2016 Acute blood loss anemia 07/04/2016 Type 2 diabetes mellitus with hyperglycemia, without long-term current use of insulin ([facility]) Foreign body aspiration, initial encounter 07/04/2016 Mucus plugging of bronchi 07/04/2016 NSTEMI (non-ST elevated myocardial infarction) ([facility]) 07/01/2016 CAD (coronary artery disease) 10/16/2015 Encounters Date Type Specialty Care Team Description 03/03/2018 Emergency Emergency Medicine Franklyn Dawson MD 03/01/2018 Emergency Emergency Medicine Macrina Gómez MD Urinary retention (Primary Dx);Right lower quadrant abdominal pain;Renal insufficiency;Hypertens kaley urgency 03/01/2018 Orders Only General Internal Medicine after 03/14/2017 Family History Medical History Relation Name Comments [...] Color, UA Yellow Clarity, UA Hazy Specific [place], UA 1.012 1.001 - 1.035 pH, UA [...] Yusuf Specimen Performing Laboratory Urine - Urine, [address] [address] Urine culture (03/03/2018 11:08 AM) Component Value Ref Range Result 70-79,000 col/mL Pseudomonas aeruginosa (A) Specimen Performing Laboratory Urine - Urine, [address] [address] Organism Antibiotic Method Susceptibility Pseudomonas aeruginosa Amikacin [...] AM Performed by: MACRINA GÓMEZ Authorized by: MCARINA GÓMEZ The ECG was interpreted by ED physician. The ECG is interpreted as sinus rhythm. Rate is normal rate. Conduction: conduction normal. ST segments abnormal. T waves abnormal. [place] is normal. Other findings: no other findings. Clinical Impression: non-specific ECG and abnormal ECG CT abdomen pelvis without contrast (03/01/2018 1:46 PM) Specimen Performing Laboratory Narrative Narrative FINAL REPORT ABDOMINAL AND PELVIS CT [...] MD Report Verified Date/Time:03/01/2018 15:15:27 Reading Location: [facility] Body Reading Room Procedure Note [...] Report Verified Date/Time: 03/01/2018 15:15:27 Reading Location: [facility] [id number] CT Body Reading Room with platelet [...] % Specimen Performing Laboratory Blood - Arm, [address] [address] CBC with platelet count + automated diff (03/01/2018 10:29 AM) Specimen Performing Laboratory Blood Narrative The following orders were created for panel order CBC with platelet count + automated diff. Procedure Abnormality Status --------- ------ CBC with platelet count ...[[id number]]AbnormalFinal result Please view results for these tests on the individual orders. Lipase (03/01/2018 10:29 AM) Component Value Ref Range Lipase 61 8 - 78 U/L Specimen Performing Laboratory Blood - Arm, [address] [address] Amylase (03/01/2018 10:29 AM) Component Value Ref Range Amylase 113 25 - 125 U/L Specimen Performing Laboratory Blood - Arm, [address] [address] Hepatic function panel (03/01/2018 10:29 AM) Component Value Ref Range Protein, Total 6.8 6.0 - 8.3 gm/dL Albumin 3.5 3.5 - 5.0 g/dL Total Bilirubin 0.4 0.2 - 1.2 mg/dL Bilirubin, Direct 0.2 0.1 - 0.5 mg/dL Alkaline Phosphatase 78 40 - 150 U/L AST 20 5 - 34 U/L ALT 21 6 - 55 U/L Specimen Performing Laboratory Blood - Arm, [address] [address] Basic Metabolic Panel (03/01/2018 10:29 AM) Component [...] PATIENTS. Specimen Performing Laboratory Blood - Arm, [address] [address] ECG 12 lead (03/01/2018 10:20 AM) Specimen Performing Laboratory GE MUSE Narrative Ventricular Rate 62 BPM Atrial Rate 62 BPM P-R Interval 178 ms QRS Duration 96 ms Q-T Interval 452 ms QTC Calculation(Bazett) 458 ms P [place] 66 degrees R [place] -24 degrees T [place] 140 degrees Normal sinus rhythm Possible Left [...] 452 ms QTC Calculation(Bazett) 458 ms P [place] 66 degrees R [place] -24 degrees T [place] 140 degrees Normal sinus rhythm Possible Left [...] STEFFI ([id number]) on 03/02/2018 6:54:28 AM after 03/14/2017
--- OUTSIDE RECORDS SUMMARY | 2018-03-15 14:35 | XMS REPORT ---
:1940 Author Organization [facility] Address [address] [place] [address] Dr. Manley [address] [place] [id number] Care Team Providers Name Role Phone RODNEY [...] Comments CULTURE (BEAKER) (test PSEUDOMONAS 70-79,000 col/mL axex=3028) AERUGINOSA Pseudomonas aeruginosa Amikacin (test code=1) Susceptible [...] code=25) Resistant <0 or >4 URINALYSIS W/ [id number] 12:06:00 Test Item Value Reference Range Comments COLOR (BEAKER) (test jxcn=238) Yellow CLARITY (BEAKER) (test novt=113) Hazy SPECIFIC GRAVITY UA (BEAKER) (test tmcp=670) 1.012 1.001-1.035 PH UA (BEAKER) (test cdio=459) 6.0 5.0-8.0 PROTEIN UA (BEAKER) (test rnoc=726) 600 mg/dL Negative GLUCOSE UA (BEAKER) (test sari=595) 100 mg/dL Negative KETONES UA (BEAKER) (test dcxz=186) Negative Negative BILIRUBIN UA (BEAKER) (test ypdx=574) Negative Negative BLOOD UA (BEAKER) (test zsaa=766) Moderate Negative NITRITE UA (BEAKER) (test qkak=490) Negative Negative LEUKOCYTE ESTERASE UA (BEAKER) (test ekuu=368) Small Negative UROBILINOGEN UA (BEAKER) (test rkpx=107) 0.2 mg/dL 0.2-1.0 RBC UA (BEAKER) (test opbf=520) 27 /HPF WBC UA (BEAKER) (test znxb=117) 12 /HPF BACTERIA (BEAKER) (test rvaw=868) Occasional MUCUS (BEAKER) (test cchg=4727) Rare SQUAMOUS EPITHELIAL (BEAKER) (test mfyi=630) < /HPF HYALINE CASTS (BEAKER) (test qmds=812) 2 /LPF GRANULAR CASTS (BEAKER) (test wjzv=760) 5 /LPF SOURCE(BEAKER) (test sswz=0328) Urine, Yusuf CT, [id number] 15:15:00Reason for exam:->ABDOMINAL PAINWhat is the patient's [...] Verified Date/ Time: 03/01/2018 15:15:27 Reading Location: [address] Body Reading Room BASI METABOLIC [id number] 11:04:00 Test Item Value Reference Range Comments SODIUM (BEAKER) (test 136 meq/L 136-145 uqfl=246) POTASSIUM (BEAKER) (test 4.0 meq/L 3.5-5.1 rwjw=853) CHLORIDE (BEAKER) (test 108 meq/L 98-107 xyst=051) CO2 (BEAKER) (test 15 meq/L 22-29 zmzh=947) BLOOD UREA NITROGEN 80 mg/dL 7-21 (BEAKER) (test jmyh=857) CREATININE (BEAKER) (test 4.79 mg/dL 0.57-1.25 qklf=521) GLUCOSE RANDOM (BEAKER) 84 mg/dL 70-105 (test acpx=517) CALCIUM (BEAKER) (test 8.9 mg/dL 8.4-10.2 qcav=587) EGFR (BEAKER) (test 12 mL/min/1.73 sq m ESTIMATED GFR IS NOT jimo=7347) ACCURATE CREATININE CLEARANCE IN PREDICTING GLOMERULAR FILTRATION RATE. ESTIMATED GFR IS NOT APPLICABLE FOR DIALYSIS PATIENTS. [id number] 11:02:00 Test Item Value Reference Range Comments LIPASE (BEAKER) (test vhmi=709) 61 U/L 8-78 [id number] 11:02:00 Test Item Value Reference Range Comments AMYLASE (BEAKER) (test nvoc=397) 113 U/L 25-125 HEPATIC FUNCTION [id number] 11:02:00 Test Item Value Reference Range Comments TOTAL PROTEIN (BEAKER) (test ykeo=758) 6.8 gm/dL 6.0-8.3 ALBUMIN (BEAKER) (test fjuj=7781) 3.5 g/dL 3.5-5.0 BILIRUBIN TOTAL (BEAKER) (test vnbd=535) 0.4 mg/dL 0.2-1.2 BILIRUBIN DIRECT (BEAKER) (test ushu=102) 0.2 mg/dL 0.1-0.5 ALKALINE PHOSPHATASE (BEAKER) (test fuhf=093) 78 U/L 40-150 AST (SGOT) (BEAKER) (test aolm=635) 20 U/L 5-34 ALT (SGPT) (BEAKER) (test vilz=659) 21 U/L 6-55 URINALYSIS W/ [id number] 11:01:00 Test Item Value Reference Range Comments COLOR (BEAKER) (test trct=582) Light Yellow CLARITY (BEAKER) (test mzab=059) Clear SPECIFIC GRAVITY UA (BEAKER) (test jsvl=594) 1.006 1.001-1.035 PH UA (BEAKER) (test baqc=016) 6.0 5.0-8.0 PROTEIN UA (BEAKER) (test xpyn=187) 300 mg/dL Negative GLUCOSE UA (BEAKER) (test wlpy=685) 30 mg/dL Negative KETONES UA (BEAKER) (test xvjw=815) Negative Negative BILIRUBIN UA (BEAKER) (test agpm=609) Negative Negative BLOOD UA (BEAKER) (test xvtx=044) Trace Negative NITRITE UA (BEAKER) (test scki=513) Negative Negative LEUKOCYTE ESTERASE UA (BEAKER) (test stmp=669) Negative Negative UROBILINOGEN UA (BEAKER) (test aktd=776) 0.2 mg/dL 0.2-1.0 RBC UA (BEAKER) (test qcdo=847) < /HPF WBC UA (BEAKER) (test yzlt=593) < /HPF BACTERIA (BEAKER) (test spsb=379) Rare MUCUS (BEAKER) (test whwz=2219) Rare SOURCE(BEAKER) (test vcjn=2541) Urine, Voided CBC W/PLT COUNT & AUTO [id number] 10:49:00 Test Item Value Reference Range Comments WHITE BLOOD CELL COUNT (BEAKER) (test kcnt=495) 5.6 K/ L 3.5-10.5 RED BLOOD CELL COUNT (BEAKER) (test xvez=029) 3.10 M/ L 4.63-6.08 HEMOGLOBIN (BEAKER) (test nied=335) 9.8 GM/DL 13.7-17.5 HEMATOCRIT (BEAKER) (test ttgy=291) 29.7 % 40.1-51.0 MEAN CORPUSCULAR VOLUME (BEAKER) (test wumq=073) 95.8 fL 79.0-92.2 MEAN CORPUSCULAR HEMOGLOBIN (BEAKER) (test 31.6 pg 25.7-32.2 qpem=526) MEAN CORPUSCULAR HEMOGLOBIN CONC (BEAKER) (test 33.0 GM/DL 32.3-36.5 pvnj=181) RED CELL DISTRIBUTION WIDTH (BEAKER) (test 14.0 % 11.6-14.4 fbsm=869) PLATELET COUNT (BEAKER) (test uqby=043) 171 K/CU MM 150-450 MEAN PLATELET VOLUME (BEAKER) (test qzse=685) 11.1 fL 9.4-12.4 NUCLEATED RED BLOOD CELLS (BEAKER) (test 0 /100 WBC 0-0 vqdp=316) NEUTROPHILS RELATIVE PERCENT (BEAKER) (test 69 % ygwk=846) LYMPHOCYTES RELATIVE PERCENT (BEAKER) (test 16 % jlxe=015) MONOCYTES RELATIVE PERCENT (BEAKER) (test 10 % tjod=862) EOSINOPHILS RELATIVE PERCENT (BEAKER) (test 4 % gmmp=626) BASOPHILS RELATIVE PERCENT (BEAKER) (test 1 % ejrz=960) NEUTROPHILS ABSOLUTE COUNT (BEAKER) (test 3.88 K/ L 1.78-5.38 ixtg=571) LYMPHOCYTES ABSOLUTE COUNT (BEAKER) (test 0.88 K/ L 1.32-3.57 tyan=333) MONOCYTES ABSOLUTE COUNT (BEAKER) (test 0.56 K/ L 0.30-0.82 huqm=886) EOSINOPHILS ABSOLUTE COUNT (BEAKER) (test 0.25 K/ L 0.04-0.54 fcck=117) BASOPHILS ABSOLUTE COUNT (BEAKER) (test 0.03 K/ L 0.01-0.08 sshu=808) IMMATURE GRANULOCYTES-RELATIVE PERCENT (BEAKER) 0 % 0-1 (test vjxl=8009)
[2018-03-15] MEDS ORDERED: D50W 25 GM/50 ML SYRINGE IV ONE (15:09)
[2018-03-15 15:35] LABS: Absolute Lymphocytes (CBC) 0.6 K/uL (0.7-4.9); Absolute Monocytes 0.5 K/uL (0.1-1.3); Absolute Neutrophil 7.6 K/uL (1.8-8.0); Basophils % 0.4 % (0-1.3); Eosinophils % 0.7 % (0-4.4); Hematocrit 31.6 % (39.6-49.0); Lymphocytes % 6.6 % (15.3-44.8); MCH 31.8 pg (27.0-35.0); MCV 94.6 fL (80-100); MPV 8.7 fL (7.6-11.3); Monocytes % 5.8 % (3.3-12.3); RBC Red Blood Cell Count 3.34 M/uL (4.33-5.43)
--- NOTE | 2018-03-15 15:37 | RAD REPORT ---
EXAM DESCRIPTION: RADChest Single View03/15/2018 3:28 pm CLINICAL HISTORY: CHEST PAIN<Reason For Exam>CHEST PAIN Chest pain COMPARISON: Chest Single View dated 02/02/2018; FINDINGS: A small left pleural effusion is suspected with mild left basilar atelectasis. Right lung probably is clear The heart is mildly to moderately enlarged. Postsurgical changes involve the chest.
[2018-03-15 15:45] LABS: Protime INR 1.23
[2018-03-15 16:02] LABS: ALT/SGPT 29 U/L (12-78); AST/SGOT 30 U/L (15-37); Alkaline Phosphatase 134 U/L (45-117); BUN Blood Urea Nitrogen 108 mg/dL (7-18); Bicarbonate 15 mmol/L (21-32); Bilirubin Direct 0.2 mg/dL (0-0.2); Bilirubin Total 0.4 mg/dL (0.2-1.0); CKMB Creatine Kinase MB 7.3 ng/mL (0.3-3.6); Creatine Phosphokinase 87 U/L (39-308); Magnesium 2.4 mg/dL (1.8-2.4); Potassium 3.8 mmol/L (3.5-5.1); Protein, Total 7.6 g/dL (6.4-8.2); Sodium Level 135 mmol/L (136-145); Troponin (Emerg Dept Use Only) 0.28 ng/mL (0.0-0.045)
[2018-03-15 16:22] LABS: NT PRO-BNP > 175000 pg/mL (<450)
[2018-03-15 16:24] LABS: Glucose Level 49 mg/dL (74-106)
--- NOTE | 2018-03-15 16:48 | EDPHYS ---
Physician Documentation [facility] Name: Blaise Quarles Age: 77 yrs Sex: Male : 1940 Arrival Date: 03/15/2018 Time: 14:38 Bed 16 Private MD: ED Physician Uriel Santos HPI: 03/15 15:30 This 77 yrs old Male presents to ER via EMS with complaints of Chest Pain > 30 pm1 y/o. 15:30 The patient or guardian reports chest pain that is located primarily in the mid-sternal pm1 area. Onset: 4 day(s) ago. The pain does not radiate. Associated signs and symptoms: Pertinent positives: abdominal pain, Back pain, Pertinent negatives: cough, dizziness, headache, nausea, palpitations, shortness of breath, vomiting. The chest pain is described as sharp. Duration: The patient or guardian reports multiple episodes. Modifying factors: The symptoms are alleviated by nothing. the symptoms are aggravated by movement, palpation of area. Severity of pain: in the emergency department the pain is actually worse. The patient has experienced similar episodes in the past, multiple times. The patient has not recently seen a physician. Historical: - Allergies: 14:50 No Known Allergies; dm5 - Home Meds: 14:50 atorvastatin 10 mg Oral tab 1 tab once daily [Active]; bumetanide 0.5 mg Oral tab 1 tab dm5 once daily [Active]; cephalexin 500 mg Oral cap 1 cap every 12 hours [Active]; doxycycline hyclate 100 mg Oral cap 1 cap every 12 hours [Active]; enalapril maleate 10 mg Oral tab 1 tab once daily [Active]; glipizide 10 mg Oral tab 1 tab 2 times per day [Active]; metoprolol tartrate 50 mg Oral tab 1 tab once daily [Active]; tramadol 37.5mg Oral tab 1 cap for Pain [Active]; Tramadol Oral [Active]; - PMHx: 14:50 Anemia; CAD; chronic renal disease; Diabetes - IDDM; Hypertension; Myocardial dm5 infarction; pulmonary nodule; Visually impared; - PSHx: 14:50 Pacemaker; Triple bypass; dm5 - Immunization history:: Adult Immunizations not up to date. - Ebola Screening: : Patient negative for fever greater than or equal to 101.5 degrees Fahrenheit, and additional compatible Ebola Virus Disease symptoms Patient denies exposure to infectious person Patient denies travel to an Ebola-affected area in the 21 days before illness onset No symptoms or risks identified at this time. - Social history:: Smoking status: unknown. ROS: 15:30 Constitutional: Negative for fever, chills, and weight loss, Eyes: Negative for injury, pm1 pain, redness, and discharge, ENT: Negative for injury, pain, and discharge, Neck: Negative for injury, pain, and swelling. 15:30 Respiratory: Negative for shortness of breath, cough, wheezing, and pleuritic chest pain. 15:30 : Negative for injury, bleeding, discharge, and swelling, MS/Extremity: Negative for injury and deformity, Skin: Negative for injury, rash, and discoloration, Neuro: Negative for headache, weakness, numbness, tingling, and seizure. 15:30 Cardiovascular: Positive for chest pain, edema, Negative for palpitations. 15:30 Abdomen/GI: Positive for abdominal pain, Negative for nausea, vomiting, and diarrhea. 15:30 Back: Positive for of the left subscapular area. Exam: 15:30 Constitutional: This is a well developed, well nourished patient who is awake, alert, pm1 and in no acute distress. Head/Face: Normocephalic, atraumatic. Eyes: Pupils equal round and reactive to light, extra-ocular motions intact. Lids and lashes normal. Conjunctiva and sclera are non-icteric and not injected. Cornea within normal limits. Periorbital areas with no swelling, redness, or edema. ENT: Nares patent. No nasal discharge, no septal abnormalities noted. Tympanic membranes are normal and external auditory canals are clear. Oropharynx with no redness, swelling, or masses, exudates, or evidence of obstruction, uvula midline. Mucous membranes moist. Neck: Trachea midline, no thyromegaly or masses palpated, and no cervical lymphadenopathy. Supple, full range of motion without nuchal rigidity, or vertebral point tenderness. No Meningismus. 15:30 Cardiovascular: Regular rate and rhythm with a normal S1 and S2. No gallops, murmurs, or rubs. Normal PMI, no JVD. No pulse deficits. 15:30 Respiratory: Lungs have equal breath sounds bilaterally, clear to auscultation and percussion. No rales, rhonchi or wheezes noted. No increased work of breathing, no retractions or nasal flaring. 15:30 Skin: Warm, dry with normal turgor. Normal color with no rashes, no lesions, and no evidence of cellulitis. MS/ Extremity: Pulses equal, no cyanosis. Neurovascular intact. Full, normal range of motion. 15:30 Chest/axilla: Inspection: normal, Palpation: tenderness, of the mid-sternal area, that totally reproduces the patient's complaints. 15:30 Abdomen/GI: Inspection: abdomen appears normal, Bowel sounds: normal, Palpation: soft, mild abdominal tenderness, in the right upper quadrant, left upper quadrant, right lower quadrant and left lower quadrant, mass, is not appreciated, rebound tenderness, is not appreciated. 15:30 Back: pain, that is mild, of the left subscapular area, normal spinal alignment noted. 15:30 Neuro: Orientation: is normal, Motor: moves all fours. Vital Signs: 14:50 BP 191 / 80; Pulse 76; Resp 19; Temp 98.2; Pulse Ox 99% on R/A; Weight 63.5 kg (R); dm5 15:47 BP 172 / 80; Pulse 62 MON; Resp 14 S; Pulse Ox 98% on R/A; Pain 0/10; sg 18:21 BP 162 / 77; Pulse 66; Resp 17; Pulse Ox 98% on R/A; sg 19:23 BP 181 / 77; Pulse 67; Resp 18; Pulse Ox 98% on R/A; Pain 0/10; ss MDM: 15:03 Patient medically screened. pm1 16:43 Data reviewed: vital signs. Data interpreted: Pulse oximetry: on room air is 98 %. pm1 Interpretation: normal. 16:43 Counseling: I had a detailed discussion with the patient and/or guardian regarding: the pm1 historical points, exam findings, and any diagnostic results supporting the discharge/admit diagnosis, lab results, radiology results, the need for further work-up and treatment in the hospital. 16:43 Refusal of service: The patient/guardian displays adequate decision making capability pm1 and despite a detailed discussion of alternatives, benefits, risks, and consequences refuses: Admission to the hospital for further work-up and treatment, Son and present at bedside for discussion of the need for admission and evaluation by cardiology and nephrology. Patient does not want to be admitted to the hospital. He wants to go home with some pain medications. 17:40 ED course: Patient decided that he now wants to stay in the hospital. pm1 17:46 Physician consultation: Venu Fernandez MD was contacted at 17:47, regarding admission, pm1 patient's condition, and will see patient in ED, shortly. 18:14 ED course: I evaluated the patient and talked to the family with Dr. Fernandez. The patient pm1 wants to be admitted to the hospital but does not want any other treatment except IV Lasix for the purpose of diuresis. Patient does not want dialysis. Patient discussed with the family and told us that he does not want resuscitation in the event of a code. 03/15 14:49 Order name: Basic Metabolic Panel; Complete Time: 16:35 pm1 03/15 14:49 Order name: CBC with Diff; Complete Time: 15:39 pm1 03/15 14:49 Order name: Ckmb; Complete Time: 16:35 pm1 03/15 14:49 Order name: CPK; Complete Time: 16:35 pm1 03/15 14:49 Order name: LFT's; Complete Time: 16:35 pm1 03/15 14:49 Order name: Magnesium; Complete Time: 16:35 pm1 03/15 14:49 Order name: NT PRO-BNP; Complete Time: 16:35 pm1 03/15 14:49 Order name: PT-INR; Complete Time: 15:59 pm1 03/15 14:49 Order name: Ptt, Activated; Complete Time: 15:59 pm1 03/15 14:49 Order name: Troponin (emerg Dept Use Only); Complete Time: 16:35 pm1 03/15 18:22 Order name: CBC with Automated Diff EDMS 03/15 18:22 Order name: CBC with Automated Diff EDMS 03/15 18:22 Order name: Comprehensive Metabolic Panel EDMS 03/15 18:22 Order name: Comprehensive Metabolic Panel EDMS 03/15 18:22 Order name: Magnesium EDMS 03/15 18:22 Order name: Magnesium EDMS 03/15 18:22 Order name: Phosphorus EDMS 03/15 18:22 Order name: Phosphorus EDMS 03/15 14:49 Order name: XRAY Chest (1 view); Complete Time: 15:39 pm1 03/15 14:49 Order name: EKG; Complete Time: 14:50 pm1 03/15 18:21 Order name: CONS Physician Consult [facility] 03/15 18:22 Order name: Renal [facility] 03/15 18:22 Order name: Patient Safety Orders [facility] 03/15 14:49 Order name: Cardiac monitoring; Complete Time: 15:38 pm1 03/15 14:49 Order name: EKG - Nurse/Tech; Complete Time: 15:37 pm1 03/15 14:49 Order name: IV Saline Lock; Complete Time: 15:37 pm1 03/15 14:49 Order name: Labs collected and sent; Complete Time: 15:37 pm1 03/15 14:49 Order name: O2 Per Protocol; Complete Time: 15:37 pm1 03/15 14:49 Order name: O2 Sat Monitoring; Complete Time: 15:37 pm1 03/15 14:49 Order name: Urine Dipstick-Ancillary (obtain specimen); Complete Time: 15:38 pm1 Administered Medications: 15:30 Drug: D50W 50 ml Route: IVP; Site: left antecubital; sg 16:00 Follow up: Response: No adverse reaction; Blood sugar is elevated sg 17:00 Drug: Lasix 40 mg {Note: medication delayed per family request while deciding for sg admission or discharge.} Route: IVP; Site: left antecubital; 19:50 Follow up: Response: No adverse reaction ao 18:31 Not Given (Patient Refused): Nitro-Bid Ointment 2 % 1 inches Transdermal once sg Point of Care Testing: Blood Glucose: 15:05 Blood Glucose: 46 mg/dL; sg 16:00 Blood Glucose: 154 mg/dL; sg 15:05 Tim Correa [facility] sg Ranges: Critical Glucose Levels:Adult <50 mg/dl or >400 mg/dl <40 mg/dl or >180 mg/dl Disposition: 03/16 10:13 Co-signature as Attending Physician, Uriel Santos MD. Disposition: 03/15/18 18:13 Hospitalization ordered by Venu Fernandez for Observation. 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 - Bed requested for Telemetry/MedSurg (observation). - Status is Observation. ao - Condition is Stable. - Problem is new. - Symptoms have improved. UTI on Admission? No Signatures: Dispatcher [employer] EDMS Bea Kim RN Tashi South RN Mayo Hwang em1 Monserrat Young RN RN ss Lexx Dominguez RN RN ao Tim Correa, AIR [employer]UNCH WEAPONS TECHNICIAN [employer] WEAPONS TECHNICIAN pm1 Uriel Santos MD MD gs Corrections: (The following items were deleted from the chart) 03/15 18:12 16:48 03/15/2018 16:48 Patients has left against medical advice. Impression: pm1 Hypertensive heart and chronic kidney disease with heart failure and with stage 5 chronic kidney disease, or end stage renal diseaseHypoglycemia, unspecified; Chest pain, unspecified. Patient states they are going to Home. Condition is Undetermined. Follow up: Emergency Department; When: Upon discharge from the Emergency Department; Reason: Recheck today's complaints, Continuance of care, Re-evaluation by your physician, admission. Follow up: Private Physician; When: Upon discharge from the Emergency Department; Reason: Recheck today's complaints, Continuance of care, Re-evaluation by your physician. Problem is new. Symptoms have improved. pm1 18:18 18:14 Physician consultation: pm1 pm1 18:55 18:13 Hospitalization Ordered by Venu Fernandez MD for Observation. 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 Bed requested for Telemetry/MedSurg (observation). Status is Observation. Condition is Stable. Problem is new. Symptoms have improved. UTI on Admission? No. pm1 20:17 18:55 03/15/2018 18:13 Hospitalization Ordered by Venu Fernandez MD for Observation. 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 Bed requested for Telemetry/MedSurg (observation). Status is Observation. Condition is Stable. Problem is new. Symptoms have improved. UTI on Admission? No. em1
--- NOTE | 2018-03-15 16:48 | ER ---
Nurse's Notes [facility] Name: Blaise Quarles Age: 77 yrs Sex: Male : 1940 Arrival Date: 03/15/2018 Time: 14:38 Bed 16 Private MD: Diagnosis: Hypertensive heart and chronic kidney disease with heart failure and with stage 5 chronic kidney disease, or end stage renal disease;Hypoglycemia, unspecified;Chest pain, unspecified Presentation: 03/15 14:38 Presenting complaint: EMS states: chest and back pain x 4 days. Transition of care: dm5 patient was not received from another setting of care. Onset of symptoms was March 12, 2018. Risk Assessment: Do you want to hurt yourself or someone else? Patient reports no desire to harm self or others. Initial Sepsis Screen: Does the patient meet any 2 criteria? No. Patient's initial sepsis screen is negative. Does the patient have a suspected source of infection? No. Patient's initial sepsis screen is negative. Care prior to arrival: None. 14:38 Method Of Arrival: EMS: [facility] 5 14:38 Acuity: SARATH 2 dm5 Historical: - Allergies: 14:50 No Known Allergies; dm5 - Home Meds: 14:50 atorvastatin 10 mg Oral tab 1 tab once daily [Active]; bumetanide 0.5 mg Oral tab 1 tab dm5 once daily [Active]; cephalexin 500 mg Oral cap 1 cap every 12 hours [Active]; doxycycline hyclate 100 mg Oral cap 1 cap every 12 hours [Active]; enalapril maleate 10 mg Oral tab 1 tab once daily [Active]; glipizide 10 mg Oral tab 1 tab 2 times per day [Active]; metoprolol tartrate 50 mg Oral tab 1 tab once daily [Active]; tramadol 37.5mg Oral tab 1 cap for Pain [Active]; Tramadol Oral [Active]; - PMHx: 14:50 Anemia; CAD; chronic renal disease; Diabetes - IDDM; Hypertension; Myocardial dm5 infarction; pulmonary nodule; Visually impared; - PSHx: 14:50 Pacemaker; Triple bypass; dm5 - Immunization history:: Adult Immunizations not up to date. - Ebola Screening: : Patient negative for fever greater than or equal to 101.5 degrees Fahrenheit, and additional compatible Ebola Virus Disease symptoms Patient denies exposure to infectious person Patient denies travel to an Ebola-affected area in the 21 days before illness onset No symptoms or risks identified at this time. - Social history:: Smoking status: unknown. Screenin:00 Abuse screen: Denies threats or abuse. Denies injuries from another. Nutritional sg screening: No deficits noted. Tuberculosis screening: No symptoms or risk factors identified. Never had TB. Fall Risk None identified. Assessment: 15:00 General: Appears in no apparent distress. ill, slender, well groomed, well developed, sg well nourished, Behavior is cooperative, appropriate for age, agitated. Pain: Complains of pain in back, abdomen and anterior aspect of right shoulder Pain does not radiate. Quality of pain is described as aching, tender. Neuro: Level of Consciousness is awake, alert, obeys commands, Oriented to person, place, time, Speech is normal, Facial symmetry appears normal. Cardiovascular: Heart tones S1 S2 present Patient's skin is warm and dry. Chest pain is described as vague, quality is tender upon palpation, reports painful when EKG electrodes were put on. Respiratory: Airway is patent Respiratory effort is even, unlabored, Respiratory pattern is regular, symmetrical, Breath sounds are clear Denies cough, shortness of breath labored breathing. GI: No signs and/or symptoms were reported involving the gastrointestinal system. : No signs and/or symptoms were reported regarding the genitourinary system. EENT: No signs and/or symptoms were reported regarding the EENT system. Derm: Skin is intact, is thin, Skin is normal, Skin temperature is warm. Musculoskeletal: Circulation, motion, and sensation intact. Range of motion: intact in all extremities, Reports pain in anterior aspect of right shoulder. 16:00 Reassessment: Patient appears in no apparent distress at this time. Patient and/or sg family updated on plan of care and expected duration. Pain level reassessed. Patient is alert, oriented x 3, equal unlabored respirations, skin warm/dry/pink. 16:05 Reassessment: pt requesting food at this time, Kevin CRUSHER notified pt glucose 157, sg no new orders received at this time. 16:45 Reassessment: Patient appears in no apparent distress at this time. pt son on his way sg with food for pt due to not wanting a dietary tray ordered from facility. 17:30 Reassessment: family asking for a couple more minutes to try to convince pt to remain iw in hospital. 17:56 Reassessment: Patient appears in no apparent distress at this time. and max MONROE at bedside speaking with pt and pt family at this time about the POC and meeting the pts wishes. pt requesting to be comfortable with no invasive interventions pt and pt family speaking about POC and need for Dialysis due to elevated enzymes and other lab results and tests. 18:26 Reassessment: Patient appears in no apparent distress at this time. Patient and/or sg family updated on plan of care and expected duration. Pain level reassessed. Patient is alert, oriented x 3, equal unlabored respirations, skin warm/dry/pink. pt reports eating chicken and potatoes, tolerated well. RUBEN MONROE notified. 19:23 General: Appears in no apparent distress. comfortable, ill, slender, well groomed, well ss developed, well nourished, Behavior is calm, cooperative, appropriate for age. Pain: Denies pain. Neuro: Level of Consciousness is awake, alert, obeys commands, Oriented to person, place, time, situation, Appropriate for age Speech is normal, Facial symmetry appears normal. Cardiovascular: Heart tones S1 S2 present Patient's skin is warm and dry. Chest pain is described as vague. Respiratory: Airway is patent Respiratory effort is even, unlabored, Respiratory pattern is regular, symmetrical. GI: No signs and/or symptoms were reported involving the gastrointestinal system. Abdomen is non-distended. : No signs and/or symptoms were reported regarding the genitourinary system. EENT: No signs and/or symptoms were reported regarding the EENT system. Derm: Skin is intact, is thin, Skin is pink, warm \T\ dry. normal, Skin temperature is warm. 19:28 Reassessment: Yudi Dominguez performed previous documented assessment By HUONG German. ao Patient waiting on orders to be taken to room. 19:45 Reassessment: Report called to HUONG Ha. Patient to be taken to his room. ao 19:47 Pain: Pain began more then 4 days. ao Vital Signs: 14:50 BP 191 / 80; Pulse 76; Resp 19; Temp 98.2; Pulse Ox 99% on R/A; Weight 63.5 kg (R); dm5 15:47 BP 172 / 80; Pulse 62 MON; Resp 14 S; Pulse Ox 98% on R/A; Pain 0/10; sg 18:21 BP 162 / 77; Pulse 66; Resp 17; Pulse Ox 98% on R/A; sg 19:23 BP 181 / 77; Pulse 67; Resp 18; Pulse Ox 98% on R/A; Pain 0/10; ss ED Course: 14:38 Patient arrived in ED. dm5 14:39 Triage completed. dm5 14:47 Tim Correa NP is PHCP. pm1 14:47 Uriel Santos MD is Attending Physician. pm1 14:50 Arm band placed on right wrist. Patient placed in an exam room, on a stretcher, on dm5 cnc service engineer, on pulse oximetry. EKG completed in triage. Results shown to MD. 15:00 Patient has correct armband on for positive identification. Bed in low position. Call sg light in reach. Side rails up X2. friction paint machine tender on. Pulse ox on. NIBP on. Warm blanket given. x4 Head of bed elevated. 15:05 Missed attempt(s): 22 gauge Bleeding controlled, band aid applied, catheter tip intact. sg 15:20 Missed attempt(s): 22 gauge in right antecubital area. Bleeding controlled, band aid ss applied, catheter tip intact. 15:24 Missed attempt(s): 22 gauge in right antecubital area. Bleeding controlled, band aid ss applied, catheter tip intact. 15:25 X-ray completed. Portable x-ray completed in exam room. Patient tolerated procedure ml well. 15:26 XRAY Chest (1 view) In Process Unspecified. EDMS 15:33 Inserted saline lock: 22 gauge in left antecubital area, using aseptic technique. Blood dh3 collected. 15:35 Tashi Luna, HUONG is Primary Nurse. sg 18:12 Venu Fernandez MD is Hospitalizing Provider. pm1 18:24 No provider procedures requiring assistance completed. sg 19:26 Patient maintains SpO2 saturation greater than 95% on room air. ss 19:46 Patient admitted, IV remains in place. ao Administered Medications: 15:30 Drug: D50W 50 ml Route: IVP; Site: left antecubital; sg 16:00 Follow up: Response: No adverse reaction; Blood sugar is elevated sg 17:00 Drug: Lasix 40 mg {Note: medication delayed per family request while deciding for sg admission or discharge.} Route: IVP; Site: left antecubital; 19:50 Follow up: Response: No adverse reaction ao 18:31 Not Given (Patient Refused): Nitro-Bid Ointment 2 % 1 inches Transdermal once sg Point of Care Testing: Blood Glucose: 15:05 Blood Glucose: 46 mg/dL; sg 16:00 Blood Glucose: 154 mg/dL; sg 15:05 Tim Correa CRUSHER sg Ranges: Outcome: 18:13 Decision to Hospitalize by Provider. pm1 19:46 Condition: stable ao 19:46 Admitted to Tele accompanied by tech, room 410, with chart, Report called to HUONG Ha ao 19:46 Instructed on the need for admit. 20:17 Patient left the ED. ao Signatures: Dispatcher [employer] Bea Geronimo RN RN dm5 Gay, Steven, RN RN sg Williams, Irene, RN RN iw Lopez, Melissa ml Smirch, Shelby, RN RN Lexx Dominguez RN RN ao Marinas, Patrick, NP RATING SPECIALIST pm1 Sheridan Miles 3 Corrections: (The following items were deleted from the chart) 18:21 15:00 AMA AMA form signed sg sg 18:21 15:00 Condition: stable sg sg 18:21 15:00 Instructed on discharge instructions, follow up and referral plans. sg sg
[2018-03-15] MEDS ORDERED: FUROSEMIDE 40 MG/4 ML VIAL ONE (17:48)
[2018-03-15] MEDS ORDERED: ACETAMINOPHEN 500 MG TAB PO PRN (18:15)
[2018-03-15] MEDS ORDERED: CLOPIDOGREL 75 MG TABLET PO ONE (18:20)
--- NOTE | 2018-03-15 20:04 | HP ---
Date of Admission: 03/15/2018 Consultants: Dr. Pérez, Cardiology and Dr. Jacobson with Nephrology. Code Status: DNR. Chief Complaint: Chest pain, abdominal pain, and flank pain. Primary Care Physician: At [facility]. History Of Present Illness: The patient is a 77-year-old male with past medical history of hypertens ion, heart disease, diabetes, congestive heart failure, stage 5 chronic kidney disease, anemia, histo ry of pulmonary nodule. Has multiple admissions in the recent past, most recently on 02/02/2018. He is noncompliant with his medications as well as refusing treatments in the hospital, leaving AMA mul tiple times, comes in again with symptoms of chest pain, abdominal pain and flank pain. Does not rep ort shortness of breath. Does have some peripheral edema. The patient's symptoms are constant, mode rate, progressively worsening. No alleviating or aggravating factors. The patient is accompanied by at least 10 members of his family initially. After treatment, the patient felt better in the ER and wished to leave against medical advice; however, was convinced by his family members to stay in the hospital; however, the patient states that other than the IV Lasix, he does not wish to have received any treatment. Long discussion with family and the patient regarding hospice care was initiated; ho wever, the patient refused. He understands that eventually he will need dialysis and Lasix will not improve his condition. He understands that not excepting the whole treatment is detrimental to his c ondition; however, states that he only wishes for IV Lasix. The patient's family has changed the pat ient's plan regarding staying in the hospital. He will be admitted for further evaluation and treatm ent. His workup revealed creatinine of 6.5 which is elevated from previous, BUN is 108. He was hypo glycemic and glucose level of 49. He was given treatment and blood glucose levels came up. ProBNP i s greater than 175,000. His white blood cell count is normal. Chest x-ray showed small left pleural effusion suspected with mild left basilar atelectasis, right lung clear, heart mild to moderately en larged, post surgical changes involving chest. When seen in the ER, he was awake, alert, oriented x3 . Some mild distress. Past Medical History: Stage 5 chronic kidney disease, hypertension, coronary artery disease, diabete s mellitus type 2, history of pleural effusions, anemia of chronic disease, PA, pulmonary nodule. Past Surgical History: Repair of left finger after fracture, CABG 3 vessel. Allergies: TO ASPIRIN CAUSES NAUSEA AND VOMITING. Medications: List reviewed. The patient only takes glipizide at home. Noncompliant with other medi cations. Family History: Father had GI disease. Social History: The patient lives at home. Does need assistance with activities of daily living. H e is a former smoker. No alcohol use or illicit drug use or alcohol use. Review of Systems: Ten point system reviewed, negative except as per HPI. Physical Examination: Vital Signs: Blood pressure 191/80, pulse 76, respirations 19, temperature 98.2, pulse ox 99% on jr m air. General: Awake, alert, oriented x3, in some mild distress. Elderly male, ill-appearing. HEENT: Normocephalic, atraumatic. PERRLA, EOMI. Moist mucous membranes. Oropharynx is clear. Poo r dentition. Conjunctivae anicteric. Neck: Supple. JVD distended. Trachea midline. CV: S1, S2. No murmurs. Peripheral pulses weak. Respiratory: Diminished breath sounds, left greater than right. No wheezing or stridor. No use of accessory muscles. Gastrointestinal: Abdomen is soft. Mild tenderness to palpation. No rebound or guarding. No hepat omegaly. Bowel sounds are positive. Extremities: No clubbing, cyanosis. 3+ peripheral edema bilaterally. No calf tenderness. Neuro: Cranial nerves 2 through 12 intact grossly. No focal neurological deficit. Speech is normal . Strength is symmetric bilateral upper and lower extremities. Skin: No rashes. Normal skin turgor. Psych: Mood is okay. Affect is flat. Insight and judgment are poor. Laboratory Data: Sodium 135, potassium 3.8, chloride 107, CO2 15, BUN 108, creatinine 6.5, glucose 4 9, calcium 8.3, magnesium 2.4. Troponin 0.28. BNP greater than 175,000. INR 1.23. WBC 8.8, H and H 10.6 and 31.6, platelets 264, neutrophils 86%. Chest x-ray personally reviewed, shows small left p leural effusion suspected with mild left basilar atelectasis, right lung probably clear, heart mild t o moderately enlarged, post surgical changes involving chest. Assessment And Plan: A 77-year-old male with: 1.Acute on chronic congestive heart failure. 2.Coronary artery disease, [place] artery and [place]en heart, status post coronary artery bypass graft with chest tightness with angina, resolved, likely due to congestive heart failure. 3.Chronic kidney disease, stage 5. The patient refusing dialysis. Follows with Dr. Jacobson. We wi ll consult Nephrology. Monitor creatinine level. 4.Diabetes mellitus type 2, non-insulin requiring with hypoglycemia. We will monitor blood glucose levels and hold glipizide. 5.Anemia of chronic disease secondary to chronic kidney disease. Monitor H and H. 6.Mixed hyperlipidemia, statin. 7.Essential hypertension, uncontrolled. Resume home medications as appropriate. 8.Congestive heart failure. The patient is noncompliant. Only wants Lasix IV, refusing other treat ment. Has refused cardiac cath in the past. 9.Elevated troponin level, likely secondary to demand mismatch from congestive heart failure, possib le cardiorenal syndrome. The patient has been evaluated by Cardiology in the past. He refuses any s ort of treatment. 10.Noncompliance. 11.Gastrointestinal and deep venous thrombosis prophylaxis with PPI and Lovenox renally dosed. Plan: Admit the patient to [facility], place as observation. Long discussion with the patient regard ing hospice; however, the patient refused. We will need to reach out to PCP at [facility]. The patient do es not have any living will or medical power of employee benefits attorney; however, does not wish to be resuscitated. Family at the bedside during this conversation. They understand his wishes are to not be resuscitat ed. Overall very poor prognosis. He understands that if he does not initiate dialysis, he may o f electrolytes abnormalities. Currently, he is still making urine. He states that everyone has to d ie sometime. Currently, the patient seems to just want pain control and care and comfort; however, r efuses hospice or palliative care. Unfortunately, there is not much we can do for the patient as he refuses essentially all treatments, except for Lasix. /MODL Voice ID: [id number]
[2018-03-15] MEDS: METOPROLOL TAR 25 MG TAB PO SCH (20:47)
[2018-03-15] MEDS: HYDRALAZINE HCL 20 MG/ML VIAL IV PRN (21:19)
[2018-03-15 22:07] VITALS: BMI 22.0
[2018-03-15] MEDS: ONDANSETRON 4 MG/2 ML VIAL IV PRN (23:05)
[2018-03-15] MEDS: TRAMADOL HCL 50 MG TAB PO PRN (23:10)
[2018-03-16] MEDS ORDERED: MORPHINE 2 MG/ML SYR IV ONE ×2 (00:11→15:43)
[2018-03-16] MEDS: HYDRALAZINE HCL 20 MG/ML VIAL IV PRN (04:31)
[2018-03-16] MEDS: ONDANSETRON 4 MG/2 ML VIAL IV PRN (05:32)
[2018-03-16] MEDS ORDERED: MORPHINE 2 MG/ML SYR IV PRN (05:57)
[2018-03-16] MEDS: METOPROLOL TAR 25 MG TAB PO SCH (06:00)
[2018-03-16 08:28] LABS: Absolute Lymphocytes (CBC) 0.5 K/uL (0.7-4.9); Absolute Monocytes 0.5 K/uL (0.1-1.3); Absolute Neutrophil 8.7 K/uL (1.8-8.0); Basophils % 0.6 % (0-1.3); Eosinophils % 0.4 % (0-4.4); Hematocrit 28.5 % (39.6-49.0); MCV 93.8 fL (80-100); MPV 8.7 fL (7.6-11.3); Monocytes % 5.1 % (3.3-12.3); RBC Red Blood Cell Count 3.04 M/uL (4.33-5.43)
[2018-03-16 08:50] LABS: Albumin 2.8 g/dL (3.4-5.0); Bilirubin Total 0.4 mg/dL (0.2-1.0); Magnesium 2.3 mg/dL (1.8-2.4); Phosphorus 6.2 mg/dL (2.5-4.9); Potassium 3.9 mmol/L (3.5-5.1); Protein, Total 6.8 g/dL (6.4-8.2)
[2018-03-16] MEDS ORDERED: HEPARIN 5000 UNIT/ML 1 ML VIAL SQ SCH (09:00)
[2018-03-16] MEDS ORDERED: ENOXAPARIN 30 MG/0.3 ML SQ SCH (09:00)
[2018-03-16] MEDS: FUROSEMIDE 40 MG/4 ML VIAL IV SCH ×2 (09:00→17:00)
[2018-03-16 09:12] LABS: Anisocytosis 1+; Blood Morphology Comment NOTED (NOT SEEN); Platelet Estimate ADEQ
[2018-03-16 11:53] VITALS: O2SAT 96
--- NOTE | 2018-03-16 12:03 | P.DS ---
Admission Date: 03/15/18 Discharge Date: 03/16/18 Primary Care Provider: Dr. Jacobson-Nephrology Disposition: ROUTINE DISCHARGE Discharge Condition: GOOD Consultations: Cardiology-Dr. Pérez Nephrology-Dr. Jacobson - Problems (1) Abdominal pain Onset Date: 01/12/18 Current Visit: No Status: Acute Qualifiers: Abdominal location: left lower quadrant Qualified Code(s): R10.32 - Left lower quadrant pain (2) Acute on chronic combined systolic (congestive) and diastolic (congestive) heart failure Onset Date: 02/03/18 Current Visit: No Status: Acute (3) Chronic renal disease Onset Date: 07/15/17 Current Visit: No Status: Chronic Qualifiers: Chronic kidney disease stage: stage 5, not on chronic dialysis Qualified Code(s): N18.5 - Chronic kidney disease, stage 5 (4) Coronary artery disease Onset Date: 07/15/17 Current Visit: No Status: Chronic Qualifiers: Coronary Disease-Associated Artery/Lesion type: bypass graft Resighini vs. transplanted heart: andreafski heart Associated angina: with unspecified angina Qualified Code(s): I25.709 - Atherosclerosis of coronary artery bypass graft(s) , unspecified, with unspecified angina pectoris (5) Diabetes mellitus Onset Date: 07/15/17 Current Visit: No Status: Chronic Qualifiers: Diabetes mellitus type: type 2 Diabetes mellitus inside sales manager insulin use: unspecified inside sales manager insulin use status Diabetes mellitus complication status : with other specified complication Qualified Code(s): E11.69 - Type 2 diabetes mellitus with other specified complication (6) Hypertension Onset Date: 02/21/16 Current Visit: No Status: Chronic Qualifiers: Hypertension type: essential hypertension Qualified Code(s): I10 - Essential (primary) hypertension Brief History of Present Illness: 77-year-old male with history of hypertension, CAD, diabetes, CHF and stage 5 chronic renal disease presents to the ER with abdominal pain and flank pain. Pain comes and goes. Patient was evaluated in the emergency room. He was admitted for further evaluation. Patient requires dialysis but the patient refuses dialysis. Patient is DNR. Hospital Course: Patient presented with abdominal pain. Patient with history of chronic renal disease stage 5. Patient does not desire dialysis. Patient refuses treatment. This was addressed in detail with patient and family present. This was discussed in French and Kuwaiti. Extensive discussion on hospice was also discussed with patient and family since he just wants to be comfortable. Patient is not reay to decide on this. Patient wishes to be DNR. Patient will be sent home in november follow up with Nephrology to further address. Prescription for tramadol 50 mg 1 pill 3 times a day will be provided for pain. Patient has hypertension. Patient will continue with Norvasc 10 mg 1 pill daily and metoprolol 50 mg 1 pill twice daily. Patient has diabetes. Patient will continue with glipizide 10 mg 1 pill twice daily. Patient has hyperlipidemia. Patient will continue with Lipitor 10 mg 1 pill daily. Patient has CHF. Patient continue with 1500 cc per day fluid restriction and low-salt diet. Patient will also continue with Bumex 2.5 mg daily. Patient has BPH. Patient will continue with Flomax 0.4 mg 1 pill daily. Prior to discharge patient is to decide on hospice. Hospice is highly recommended since the patient is DNR and does not want dialysis. This can be further addressed by his PCP or nephrology as an outpatient. Vital Signs/Physical Exam: Temp Pulse Resp BP Pulse Ox 98.5 F 67 18 165/71 H 96 03/16/18 08:00 03/16/18 09:00 03/16/18 08:00 03/16/18 09:00 03/16/18 08:00 General: Alert, In no apparent distress, Oriented x3, Cooperative HEENT: Atraumatic Neck: Supple Respiratory: Clear to auscultation bilaterally, Normal air movement Cardiovascular: Normal pulses, Regular rate/rhythm Gastrointestinal: Normal bowel sounds, Soft and benign, Non-distended, No tenderness, No masses, No rebound, No guarding Musculoskeletal: No erythema, No tenderness, No warmth Integumentary: No tenderness/swelling, No erythema, No warmth, No cyanosis Neurological: Normal speech, Normal strength at 5/5 x4 extr, Normal tone, Normal affect Laboratory Data at Discharge: WBC 9.8 K/uL (4.3-10.9) 03/16/18 07:55 Hgb 10.0 g/dL (13.6-17.9) L 03/16/18 07:55 Hct 28.5 % (39.6-49.0) L 03/16/18 07:55 Plt Count 259 K/uL (152-406) 03/16/18 07:55 PT 14.5 SECONDS (9.5-12.5) H 03/15/18 15:00 INR 1.23 03/15/18 15:00 APTT 29.9 SECONDS (24.3-36.9) 03/15/18 15:00 Sodium 136 mmol/L (136-145) 03/16/18 07:55 Potassium 3.9 mmol/L (3.5-5.1) 03/16/18 07:55 BUN 105 mg/dL (7-18) H 03/16/18 07:55 Creatinine 6.30 mg/dL (0.55-1.3) H* 03/16/18 07:55 Glucose 108 mg/dL (74-106) H 03/16/18 07:55 Phosphorus 6.2 mg/dL (2.5-4.9) H 03/16/18 07:55 Magnesium 2.3 mg/dL (1.8-2.4) 03/16/18 07:55 Total Bilirubin 0.4 mg/dL (0.2-1.0) 03/16/18 07:55 AST 24 U/L (15-37) 03/16/18 07:55 ALT 25 U/L (12-78) 03/16/18 07:55 Alkaline Phosphatase 106 U/L (45-117) 03/16/18 07:55 Home Medications: Atorvastatin Calcium [Lipitor*] 10 mg PO BEDTIME 12/15/17 Glipizide [Glipizide ER] 10 mg PO BIDWM 12/15/17 Metoprolol Succinate [Toprol Xl*] 50 mg PO BID 12/15/17 Amlodipine [Norvasc*] 10 mg PO DAILY 03/15/18 Bumetanide 0.5 mg PO DAILY 03/15/18 Tamsulosin [Flomax*] 0.4 mg PO BEDTIME 03/15/18 traMADol HCL [Ultram*] 50 mg PO TID PRN #15 tab 03/16/18 New Medications: traMADol HCL [Ultram*] 50 mg PO TID PRN #15 tab PRN Reason: Pain Patient Discharge Instructions: 1. Patient will need to follow up with PCP in 1 week to follow up this hospitalization. 2. Patient with history of chronic renal disease stage 5. Patient does not desire dialysis. Patient refuses treatment. Extensive discussion on hospice was discussed with patient and family since he does not want dialysis. Patient is to decide on this. Patient wishes to be DNR. Patient will be sent home in november follow up with Nephrology to further address. Prescription for tramadol 50 mg 1 pill 3 times a day will be provided for pain. 3. Patient has hypertension. Patient will continue with Norvasc 10 mg 1 pill daily and metoprolol 50 mg 1 pill twice daily. 4. Patient has diabetes. Patient will continue with glipizide 10 mg 1 pill twice daily. 5. Patient has hyperlipidemia. Patient will continue with Lipitor 10 mg 1 pill daily. 6. Patient has CHF. Patient continue with 1500 cc per day fluid restriction and low-salt diet. Patient will also continue with Bumex 2.5 mg daily. 7. Patient has BPH. Patient will continue with Flomax 0.4 mg 1 pill daily. 8. Prior to discharge patient is to decide on hospice. Hospice is highly recommended since the patient is DNR and does not want dialysis. This can be further addressed by nephrology or his PCP as an outpatient. Diet: Renal Activity: Ad jose Time spent managing pt's care (in minutes): 55
--- NOTE | 2018-03-16 12:10 | CON ---
Date of Consultation: 03/16/[address] Fernandez's service on 03/15/2018. I saw the patient myself on 03/16/2018. Reason For Consultation: Elevated troponin and chest pain. History Of Present Illness: Mr. Quarles is a 77-year-old Latin-Chinese male. He is known to us from revious office admissions. He is a do not resuscitate. He has end-stage renal disease, but refuses hemodialysis. His creatinine is 6.5. He came in with a glucose of 49, troponin 0.28. BNP is 175,00 0. Hemoglobin 10.6. Mid epigastric chest pain radiating to the back that is sharp, back pain, abdom inal pain. He just left the hospital in January of 2018 for similar symptoms. Echocardiogram in 2017 showed moderate aortic stenosis, left ventricular hypertrophy with an ejection fraction of 46%. He has had a history of CABG, pacemaker, diabetes, hypertension, and had some visual acuity dec rease. Allergies: INCLUDE ASPRIN. Review of Systems: Negative. Social History: Positive for being a DNR. Medications At Home: Include Lipitor, Lasix, glipizide, metformin, and lactulose. Physical Examination: General: He appeared to be in ozxi-ne-whwjsbuh distress and pointing to his abdomen for pain. Some nausea. No vomiting. Vital Signs: Were stable. He was afebrile. He was in sinus rhythm. HEENT: Negative. Neck: Supple without any lymphadenopathy, JVD. Chest: Reveals some decreased breath sounds in the left base, right was normal. Heart: Reveals a regular rhythm and rate. S4 gallops and aortic stenosis murmur. No rubs. Abdomen: Was tender to touch. No rebound. No rigidity. Positive bowel sounds. Extremities: Revealed 1+ edema on the right, 2+ edema on the left. Diagnostic Data: As stated earlier. Impression And Plan: 1.Atypical chest pain. I think it is most likely gastric or esophageal. The patient has known mode rate aortic stenosis, low ejection fraction of 46% as of July. We will repeat an echocardiogram. 2.History of coronary artery bypass grafting in 2016. 3.Status post pacemaker. 4.End-stage renal disease with needing hemodialysis, but patient refuses hemodialysis. He is a do n ot resuscitate. His diabetes is well controlled. The patient's troponin elevation and BNP elevation are secondary to his renal failure and possibly acute on chronic diastolic congestive heart failure. Nephrology will be seeing Mr. Quarles. I agree with his present regimen at this point. I believe gloria lysis is the only way Mr. Quarles will feel better down the road. Forty five minutes were spent taking care of Mr. Quarles with reviewing his chart, discussing the case with the family, Dr. Fernandez, and Nephro logy. Family does understand as well as the patient that dialysis is the only way to improve in gene ral. DEYSI/MARIANL Voice ID: [id number] Report ID: [id number]
--- NOTE | 2018-03-16 12:22 | EKG ---
Test Date: 2018-03-15 Test Time: 14:52:10 Color Sprayer: SWG MEASUREMENT RESULTS: Intervals: Rate: 68 ME: 162 QRSD: 102 QT: 444 QTc: 472 [place]: P: 92 ME: 162 QRS: -43 T: 17 INTERPRETIVE STATEMENTS: Normal sinus rhythm Possible Left atrial enlargement Left axis deviation Left ventricular hypertrophy Inferior infarct, age undetermined Anteroseptal infarct, age undetermined Abnormal ECG Compared to ECG 03/13/2018 19:23:48 Left-axis deviation now present Myocardial infarct finding still present Electronically Signed On 03-16-18 12:19:19 CDT by Brandon Pérez
[2018-03-16 12:31] VITALS: BP 185/83; TEMP 98.4
[2018-03-16] MEDS: TRAMADOL HCL 50 MG TAB PO PRN (14:36)
[2018-03-16] MEDS: HYDROCODONE/APAP 10/325 TAB PO ONE ×2 (14:49→18:18)
== END 2018-03-16 18:22 | disposition home or self-care (01) ==
LOC: ER 14:33 → ERHOLD 18:21 → 4TH 19:46
PROVIDERS: ADMIT Family Medicine; ATTEND Family Medicine
DX: I13.2 Hypertensive heart and chronic kidney disease with heart failure and with stage 5 chronic kidney disease, or end stage renal disease (principal); E11.22 Type 2 diabetes mellitus with diabetic chronic kidney disease; N18.5 Chronic kidney disease, stage 5; I50.43 Acute on chronic combined systolic (congestive) and diastolic (congestive) heart failure; I25.10 Atherosclerotic heart disease of native coronary artery without angina pectoris; Z95.1 Presence of aortocoronary bypass graft; Z91.15 Patient's noncompliance with renal dialysis; Z53.29 Procedure and treatment not carried out because of patient's decision for other reasons; N40.0 Benign prostatic hyperplasia without lower urinary tract symptoms; E78.5 Hyperlipidemia, unspecified; Z66 Do not resuscitate
CPT/HCPCS: 36415; 71045; 80048; 80053; 80076; 82550; 82553; 82962; 83735; 83880; 84100; 84484; 85025; 85610; 85730; 93005; 94760; 96374; 96375; 99285; G0378; J0360; J1644; J2270; J2405

== ENCOUNTER 2018-04-08 19:25 | Inpatient (IN) | payer OTHER ==
--- OUTSIDE RECORDS SUMMARY | 2018-04-08 19:27 | XMS REPORT ---
:1940 [facility] Address [address] [place] [address] Dr. Manley [address] [place] [id number] Care Team Providers Name Role Phone RODNEY [...] Comments CULTURE (BEAKER) (test PSEUDOMONAS 70-79,000 col/mL aiwe=3406) AERUGINOSA Pseudomonas aeruginosa Amikacin (test code=1) Susceptible [...] code=25) Resistant <0 or >4 URINALYSIS W/ [id number] 12:06:00 Test Item Value Reference Range Comments COLOR (BEAKER) (test zmol=497) Yellow CLARITY (BEAKER) (test aqeg=217) Hazy SPECIFIC GRAVITY UA (BEAKER) (test qldu=470) 1.012 1.001-1.035 PH UA (BEAKER) (test kpre=013) 6.0 5.0-8.0 PROTEIN UA (BEAKER) (test lzyr=682) 600 mg/dL Negative GLUCOSE UA (BEAKER) (test dsmy=500) 100 mg/dL Negative KETONES UA (BEAKER) (test zhaq=344) Negative Negative BILIRUBIN UA (BEAKER) (test gcyw=593) Negative Negative BLOOD UA (BEAKER) (test qlce=823) Moderate Negative NITRITE UA (BEAKER) (test atrl=930) Negative Negative LEUKOCYTE ESTERASE UA (BEAKER) (test ghtz=670) Small Negative UROBILINOGEN UA (BEAKER) (test syzp=285) 0.2 mg/dL 0.2-1.0 RBC UA (BEAKER) (test nwab=711) 27 /HPF WBC UA (BEAKER) (test kfit=452) 12 /HPF BACTERIA (BEAKER) (test bmlq=322) Occasional MUCUS (BEAKER) (test kwgr=9951) Rare SQUAMOUS EPITHELIAL (BEAKER) (test stqd=018) < /HPF HYALINE CASTS (BEAKER) (test jlul=282) 2 /LPF GRANULAR CASTS (BEAKER) (test mdhh=121) 5 /LPF SOURCE(BEAKER) (test uhwl=1361) Urine, Yusuf CT, [id number] 15:15:00Reason for exam:->ABDOMINAL PAINWhat is the patient's [...] Verified Date/ Time: 03/01/2018 15:15:27 Reading Location: [address] Body Reading Room BASI METABOLIC [id number] 11:04:00 Test Item Value Reference Range Comments SODIUM (BEAKER) (test 136 meq/L 136-145 ozox=690) POTASSIUM (BEAKER) (test 4.0 meq/L 3.5-5.1 ukav=571) CHLORIDE (BEAKER) (test 108 meq/L 98-107 fmfx=953) CO2 (BEAKER) (test 15 meq/L 22-29 aiaa=375) BLOOD UREA NITROGEN 80 mg/dL 7-21 (BEAKER) (test ptho=944) CREATININE (BEAKER) (test 4.79 mg/dL 0.57-1.25 uzyn=999) GLUCOSE RANDOM (BEAKER) 84 mg/dL 70-105 (test gjrp=250) CALCIUM (BEAKER) (test 8.9 mg/dL 8.4-10.2 eite=996) EGFR (BEAKER) (test 12 mL/min/1.73 sq m ESTIMATED GFR IS NOT rylm=0103) ACCURATE CREATININE CLEARANCE IN PREDICTING GLOMERULAR FILTRATION RATE. ESTIMATED GFR IS NOT APPLICABLE FOR DIALYSIS PATIENTS. [id number] 11:02:00 Test Item Value Reference Range Comments LIPASE (BEAKER) (test tjct=213) 61 U/L 8-78 [id number] 11:02:00 Test Item Value Reference Range Comments AMYLASE (BEAKER) (test dzzd=183) 113 U/L 25-125 HEPATIC FUNCTION [id number] 11:02:00 Test Item Value Reference Range Comments TOTAL PROTEIN (BEAKER) (test kolp=363) 6.8 gm/dL 6.0-8.3 ALBUMIN (BEAKER) (test wzvi=0041) 3.5 g/dL 3.5-5.0 BILIRUBIN TOTAL (BEAKER) (test osye=934) 0.4 mg/dL 0.2-1.2 BILIRUBIN DIRECT (BEAKER) (test qble=767) 0.2 mg/dL 0.1-0.5 ALKALINE PHOSPHATASE (BEAKER) (test qykn=669) 78 U/L 40-150 AST (SGOT) (BEAKER) (test pvvg=007) 20 U/L 5-34 ALT (SGPT) (BEAKER) (test glyq=301) 21 U/L 6-55 URINALYSIS W/ [id number] 11:01:00 Test Item Value Reference Range Comments COLOR (BEAKER) (test xlgi=504) Light Yellow CLARITY (BEAKER) (test kwiz=201) Clear SPECIFIC GRAVITY UA (BEAKER) (test cwuf=850) 1.006 1.001-1.035 PH UA (BEAKER) (test dcpt=032) 6.0 5.0-8.0 PROTEIN UA (BEAKER) (test zcyw=981) 300 mg/dL Negative GLUCOSE UA (BEAKER) (test deor=293) 30 mg/dL Negative KETONES UA (BEAKER) (test rwwx=503) Negative Negative BILIRUBIN UA (BEAKER) (test rlwj=767) Negative Negative BLOOD UA (BEAKER) (test omhm=313) Trace Negative NITRITE UA (BEAKER) (test tbdg=568) Negative Negative LEUKOCYTE ESTERASE UA (BEAKER) (test chvv=771) Negative Negative UROBILINOGEN UA (BEAKER) (test taoq=908) 0.2 mg/dL 0.2-1.0 RBC UA (BEAKER) (test nfjr=683) < /HPF WBC UA (BEAKER) (test ovjp=491) < /HPF BACTERIA (BEAKER) (test mksj=191) Rare MUCUS (BEAKER) (test vijs=2342) Rare SOURCE(BEAKER) (test ziqg=2445) Urine, Voided CBC W/PLT COUNT & AUTO [id number] 10:49:00 Test Item Value Reference Range Comments WHITE BLOOD CELL COUNT (BEAKER) (test vzhb=510) 5.6 K/ L 3.5-10.5 RED BLOOD CELL COUNT (BEAKER) (test qvsd=874) 3.10 M/ L 4.63-6.08 HEMOGLOBIN (BEAKER) (test wbqi=671) 9.8 GM/DL 13.7-17.5 HEMATOCRIT (BEAKER) (test hwol=658) 29.7 % 40.1-51.0 MEAN CORPUSCULAR VOLUME (BEAKER) (test rvre=480) 95.8 fL 79.0-92.2 MEAN CORPUSCULAR HEMOGLOBIN (BEAKER) (test 31.6 pg 25.7-32.2 hhob=558) MEAN CORPUSCULAR HEMOGLOBIN CONC (BEAKER) (test 33.0 GM/DL 32.3-36.5 zcgd=071) RED CELL DISTRIBUTION WIDTH (BEAKER) (test 14.0 % 11.6-14.4 wkxo=490) PLATELET COUNT (BEAKER) (test ovur=794) 171 K/CU MM 150-450 MEAN PLATELET VOLUME (BEAKER) (test xuks=555) 11.1 fL 9.4-12.4 NUCLEATED RED BLOOD CELLS (BEAKER) (test 0 /100 WBC 0-0 lqxb=646) NEUTROPHILS RELATIVE PERCENT (BEAKER) (test 69 % wask=913) LYMPHOCYTES RELATIVE PERCENT (BEAKER) (test 16 % yqki=737) MONOCYTES RELATIVE PERCENT (BEAKER) (test 10 % rccz=756) EOSINOPHILS RELATIVE PERCENT (BEAKER) (test 4 % wipc=074) BASOPHILS RELATIVE PERCENT (BEAKER) (test 1 % gmwu=952) NEUTROPHILS ABSOLUTE COUNT (BEAKER) (test 3.88 K/ L 1.78-5.38 akhd=091) LYMPHOCYTES ABSOLUTE COUNT (BEAKER) (test 0.88 K/ L 1.32-3.57 fqya=111) MONOCYTES ABSOLUTE COUNT (BEAKER) (test 0.56 K/ L 0.30-0.82 styv=468) EOSINOPHILS ABSOLUTE COUNT (BEAKER) (test 0.25 K/ L 0.04-0.54 jqxh=087) BASOPHILS ABSOLUTE COUNT (BEAKER) (test 0.03 K/ L 0.01-0.08 uapj=852) IMMATURE GRANULOCYTES-RELATIVE PERCENT (BEAKER) 0 % 0-1 (test lnon=6526)
--- OUTSIDE RECORDS SUMMARY | 2018-04-08 19:27 | XMS REPORT | Clinical Summary ---
:1940 Author Organization [facility] Address [address] [place] [address] Phone Care Team Providers Name Role Phone [...] Problem Noted Date Acute renal failure (ARF) ([facility]) 07/16/2016 S/P CABG x 3 07/04/2016 Acute pulmonary insufficiency following thoracic surgery ([facility]) 07/04/2016 Acute postoperative pain 07/04/2016 CKD (chronic kidney disease) stage 3, GFR 30-59 ml/min 07/04/2016 Acute blood loss anemia 07/04/2016 Type 2 diabetes mellitus with hyperglycemia, without long-term current use of insulin ([facility]) Foreign body aspiration, initial encounter 07/04/2016 Mucus plugging of bronchi 07/04/2016 NSTEMI (non-ST elevated myocardial infarction) ([facility]) 07/01/2016 CAD (coronary artery disease) 10/16/2015 Encounters Date Type Specialty Care Team Description 03/03/2018 Emergency Emergency Medicine Franklyn Dawson MD 03/01/2018 Emergency Emergency Medicine Macrina Gómez MD Urinary retention (Primary Dx);Right lower quadrant abdominal pain;Renal insufficiency;Hypertens kaley urgency 03/01/2018 Orders Only General Internal Medicine after 04/07/2017 Family History Medical History Relation Name Comments [...] Color, UA Yellow Clarity, UA Hazy Specific [place], UA 1.012 1.001 - 1.035 pH, UA [...] Yusuf Specimen Performing Laboratory Urine - Urine, [address] [address] Urine culture (03/03/2018 11:08 AM) Component Value Ref Range Result 70-79,000 col/mL Pseudomonas aeruginosa (A) Specimen Performing Laboratory Urine - Urine, [address] [address] Organism Antibiotic Method Susceptibility Pseudomonas aeruginosa Amikacin [...] normal. ST segments abnormal. T waves abnormal. [place] is normal. Other findings: no other findings. Clinical Impression: non-specific ECG and abnormal ECG CT abdomen pelvis without contrast (03/01/2018 1:46 PM) Specimen Performing Laboratory [employer] Narrative FINAL REPORT ABDOMINAL AND PELVIS CT [...] MD Report Verified Date/Time:03/01/2018 15:15:27 Reading Location: [facility] C0[facility] CT Body Reading Room Procedure [...] Report Verified Date/Time: 03/01/2018 15:15:27 Reading Location: [facility] C013Y CT Body Reading Room with platelet [...] % Specimen Performing Laboratory Blood - Arm, [address] [address] CBC with platelet count + automated diff (03/01/2018 10:29 AM) Specimen Performing Laboratory Blood Narrative The following orders were created for panel order CBC with platelet count + automated diff. Procedure Abnormality Status --------- ------ CBC with platelet count ...[[id number]]AbnormalFinal result Please view results for these tests on the individual orders. Lipase (03/01/2018 10:29 AM) Component Value Ref Range Lipase 61 8 - 78 U/L Specimen Performing Laboratory Blood - Arm, [address] [address] Amylase (03/01/2018 10:29 AM) Component Value Ref Range Amylase 113 25 - 125 U/L Specimen Performing Laboratory Blood - Arm, [address] [address] Hepatic function panel (03/01/2018 10:29 AM) Component Value Ref Range Protein, Total 6.8 6.0 - 8.3 gm/dL Albumin 3.5 3.5 - 5.0 g/dL Total Bilirubin 0.4 0.2 - 1.2 mg/dL Bilirubin, Direct 0.2 0.1 - 0.5 mg/dL Alkaline Phosphatase 78 40 - 150 U/L AST 20 5 - 34 U/L ALT 21 6 - 55 U/L Specimen Performing Laboratory Blood - Arm, [address] [address] Basic Metabolic Panel (03/01/2018 10:29 AM) Component [...] PATIENTS. Specimen Performing Laboratory Blood - Arm, [address] [address] ECG 12 lead (03/01/2018 10:20 AM) Specimen Performing Laboratory GE MUSE Narrative Ventricular Rate 62 BPM Atrial Rate 62 BPM P-R Interval 178 ms QRS Duration 96 ms Q-T Interval 452 ms QTC Calculation(Bazett) 458 ms P [place] 66 degrees R [place] -24 degrees T [place] 140 degrees Normal sinus rhythm Possible Left [...] 452 ms QTC Calculation(Bazett) 458 ms P [place] 66 degrees R [place] -24 degrees T [place] 140 degrees Normal sinus rhythm Possible Left [...] STEFFI (1904) on 03/02/2018 6:54:28 AM after 04/07/2017
[2018-04-08] MEDS ORDERED: D50W 25 GM/50 ML SYRINGE IV ONE (19:40)
--- NOTE | 2018-04-08 20:20 | RAD REPORT ---
EXAM DESCRIPTION: RAD - Chest Single View - 04/08/2018 8:06 pm CLINICAL HISTORY: Abdominal pain, cough, hypoglycemia COMPARISON: March 15 TECHNIQUE: AP portable chest image was obtained 2001 hours . FINDINGS: There is opacification of the lower half of the left hemithorax mostly from large pleural effusion. There could be infiltrate and/or atelectasis. Interstitial and alveolar markings are promin ent in the lower right lung field. Upper lobe vasculature is mildly prominent but stable. Left base o pacification is worse than seen March 15. Heart size is prominent but probably stable. Most of t he left heart border is obscured. No pneumothorax. No gross bony abnormality seen. No acute aortic fi ndings suspected. IMPRESSION: Worsening left hemithorax opacification from pleural effusion with infiltrate and/ or at electasis. Probable right-sided interstitial edema.
[2018-04-08 20:24] LABS: Protime INR 1.14
[2018-04-08 20:25] LABS: Absolute Lymphocytes (CBC) 0.6 K/uL (0.7-4.9); Absolute Monocytes 0.5 K/uL (0.1-1.3); Absolute Neutrophil 5.9 K/uL (1.8-8.0); Basophils % 0.5 % (0-1.3); Eosinophils % 0.7 % (0-4.4); Hematocrit 31.6 % (39.6-49.0); Lymphocytes % 8.9 % (15.3-44.8); MCH 32.9 pg (27.0-35.0); MCV 94.3 fL (80-100); MPV 8.9 fL (7.6-11.3); Monocytes % 7.1 % (3.3-12.3); RBC Red Blood Cell Count 3.34 M/uL (4.33-5.43)
[2018-04-08 20:54] LABS: Albumin 3.5 g/dL (3.4-5.0); Bilirubin Direct 0.2 mg/dL (0-0.2); Bilirubin Total 0.5 mg/dL (0.2-1.0); Magnesium 2.2 mg/dL (1.8-2.4); Potassium 3.9 mmol/L (3.5-5.1); Protein, Total 8.3 g/dL (6.4-8.2); Troponin (Emerg Dept Use Only) 0.05 ng/mL (0.0-0.045)
--- NOTE | 2018-04-08 22:49 | EDPHYS ---
Physician Documentation [facility] Name: Blaise Quarles Age: 77 yrs Sex: Male : 1940 Arrival Date: 04/08/2018 Time: 19:41 Bed 3 Private MD: out of town, doctor ED Physician Ron Viveros HPI: 04/08 20:09 This 77 yrs old Male presents to ER via EMS with complaints of Abdominal Pain, yoni Low Blood Sugar. 20:09 This 77 yrs old Male presents to ER via EMS with complaints of Abdominal Pain, yoni Low Blood Sugar. 20:04 The patient or guardian reports altered mental status, hypoglycemia. yoni Historical: - Allergies: 20:01 Aspirin; fc - Home Meds: 20:01 amlodipine 10 mg tab 1 tab once daily [Active]; atorvastatin 10 mg Oral tab 1 tab fc nightly [Active]; glipizide 10 mg Oral tab 1 tab 2 times per day [Active]; tramadol 50 mg oral tab 1 tab tid prn [Active]; tamsulosin 0.4 mg oral cp24 1 cap once daily [Active]; 20:31 bumetanide 1 mg oral tab 2 times per day [Active]; metoprolol tartrate 50 mg Oral tab 1 lp1 tab once daily [Active]; - PMHx: 20:01 Anemia; chronic renal disease; Diabetes - IDDM; CAD; Hypertension; Myocardial fc infarction; pulmonary nodule; Visually impared; High Cholesterol; CHF; pleural effusion; Cirrhosis; cardiomegaly; pumonary nodule; - PSHx: 20:01 Pacemaker; Triple bypass; fc - Immunization history:: Last tetanus immunization: unknown. - Social history:: Smoking status: Patient/guardian denies using tobacco. - Ebola Screening: : Patient negative for fever greater than or equal to 101.5 degrees Fahrenheit, and additional compatible Ebola Virus Disease symptoms Patient denies exposure to infectious person Patient denies travel to an Ebola-affected area in the 21 days before illness onset. - Family history:: not pertinent. ROS: 20:04 Constitutional: Negative for fever, chills, and weight loss, Eyes: Negative for injury, yoni pain, redness, and discharge, ENT: Negative for injury, pain, and discharge, Neck: Negative for injury, pain, and swelling, Cardiovascular: Negative for chest pain, palpitations, and edema, Respiratory: Negative for shortness of breath, cough, wheezing, and pleuritic chest pain, Back: Negative for injury and pain, : Negative for injury, bleeding, discharge, and swelling, MS/Extremity: Negative for injury and deformity, Skin: Negative for injury, rash, and discoloration, Psych: Negative for depression, anxiety, suicide ideation, homicidal ideation, and hallucinations, Allergy/Immunology: Negative for hives, rash, and allergies, Endocrine: Negative for neck swelling, polydipsia, polyuria, polyphagia, and marked weight changes, Hematologic/Lymphatic: Negative for swollen nodes, abnormal bleeding, and unusual bruising. 20:04 Abdomen/GI: Positive for abdominal pain, of the right lower quadrant and left lower quadrant. 20:04 Neuro: Positive for altered mental status, weakness. Exam: 20:04 Constitutional: This is a well developed, well nourished patient who is awake, alert, yoni and in no acute distress. Head/Face: Normocephalic, atraumatic. Eyes: Pupils equal round and reactive to light, extra-ocular motions intact. Lids and lashes normal. Conjunctiva and sclera are non-icteric and not injected. Cornea within normal limits. Periorbital areas with no swelling, redness, or edema. ENT: Nares patent. No nasal discharge, no septal abnormalities noted. Tympanic membranes are normal and external auditory canals are clear. Oropharynx with no redness, swelling, or masses, exudates, or evidence of obstruction, uvula midline. Mucous membranes moist. Neck: Trachea midline, no thyromegaly or masses palpated, and no cervical lymphadenopathy. Supple, full range of motion without nuchal rigidity, or vertebral point tenderness. No Meningismus. Chest/axilla: Normal chest wall appearance and motion. Nontender with no deformity. No lesions are appreciated. Cardiovascular: Regular rate and rhythm with a normal S1 and S2. No gallops, murmurs, or rubs. Normal PMI, no JVD. No pulse deficits. Abdomen/GI: Soft, non-tender, with normal bowel sounds. No distension or tympany. No guarding or rebound. No evidence of tenderness throughout. Back: No spinal tenderness. No costovertebral tenderness. Full range of motion. Male : Normal genitalia with no discharge or lesions. Skin: Warm, dry with normal turgor. Normal color with no rashes, no lesions, and no evidence of cellulitis. Neuro: Awake and alert, GCS 15, oriented to person, place, time, and situation. Cranial nerves II-XII grossly intact. Motor strength 5/5 in all extremities. Sensory grossly intact. Cerebellar exam normal. Normal gait. Psych: Awake, alert, with orientation to person, place and time. Behavior, mood, and affect are within normal limits. 20:04 Respiratory: the patient does not display signs of respiratory distress, Respirations: normal, Breath sounds: rales, that are mild, are located in both bases, decreased breath sounds. Vital Signs: 19:25 BP 167 / 65; Pulse 61; Resp 18; Temp 97.6(O); Pulse Ox 96% on R/A; Weight 63.5 kg (R); fc Height 5 ft. 3 in. (160.02 cm) (R); Pain 6/10; 20:15 BP 165 / 72; Pulse 61; Resp 22; Pulse Ox 93% on R/A; lp1 21:04 BP 145 / 79; Pulse 60; Resp 15; Pulse Ox 94% on R/A; lp1 23:18 BP 156 / 54; Pulse 61; Resp 13; Pulse Ox 94% on R/A; lp1 04/09 00:30 BP 151 / 62; Pulse 59; Resp 22; Pulse Ox 93% on R/A; lp1 04/08 19:25 Body Mass Index 24.80 (63.50 kg, 160.02 cm) MDM: 04/08 19:50 Patient medically screened. [facility] 20:10 Data reviewed: vital signs, nurses notes, lab test result(s), EKG, radiologic studies, [facility] CT scan, plain films. 04/08 19:47 Order name: Basic Metabolic Panel; Complete Time: 21:15 [facility] 04/08 19:47 Order name: CBC with Diff; Complete Time: 21:15 [facility] 04/08 19:47 Order name: LFT's; Complete Time: 21:15 [facility] 04/08 19:47 Order name: Magnesium; Complete Time: 21:15 [facility] 04/08 19:47 Order name: NT PRO-BNP; Complete Time: 21:15 [facility] 04/08 19:47 Order name: PT-INR; Complete Time: 21:15 [facility] 04/08 19:47 Order name: Troponin (emerg Dept Use Only); Complete Time: 21:15 [facility] 04/08 19:47 Order name: XRAY Chest (1 view); Complete Time: 21:15 [facility] 04/08 19:47 Order name: Lipase; Complete Time: 21:15 [facility] 04/08 19:47 Order name: Urine Culture [facility] 04/08 19:59 Order name: CT Chest Abdomen Pelvis W/O Contrast: no iv , no po [facility] 04/08 22:46 Order name: Blood Culture Adult (2) [facility] 04/08 23:01 Order name: Urine Dipstick--Ancillary (enter results) [facility] 04/08 19:47 Order name: EKG; Complete Time: 19:48 [facility] 04/08 19:47 Order name: Cardiac monitoring; Complete Time: 19:50 [facility] 04/08 19:47 Order name: EKG - Nurse/Tech; Complete Time: 19:50 [facility] 04/08 19:47 Order name: IV Saline Lock; Complete Time: 19:50 [facility] 04/08 19:47 Order name: Labs collected and sent; Complete Time: 19:50 [facility] 04/08 19:47 Order name: O2 Per Protocol; Complete Time: 19:50 [facility] 04/08 19:47 Order name: O2 Sat Monitoring; Complete Time: 19:50 [facility] 04/08 22:53 Order name: CONS Physician Consult EDMS Administered Medications: 19:38 Drug: D50W 50 ml Route: IVP; Site: right forearm; lp1 20:00 Follow up: Response: Blood sugar is elevated lp1 Point of Care Testing: Blood Glucose: 19:31 Blood Glucose: 45 mg/dL; fc 19:57 Blood Glucose: 170 mg/dL; lp1 23:18 Blood Glucose: 181 mg/dL; lp1 Ranges: Critical Glucose Levels:Adult <50 mg/dl or >400 mg/dl <40 mg/dl or >180 mg/dl Disposition: 04/08/18 22:49 Hospitalization ordered by Ankur Espinoza for Inpatient Admission. Preliminary diagnosis are Hypokalemia, End stage renal disease, Unspecified kidney failure, Pleural effusion in conditions classified elsewhere, Abdominal tenderness. - Bed requested for Telemetry/MedSurg (Inpatient). - Status is Inpatient Admission. lp1 - Condition is Fair. - Problem is new. - Symptoms have improved. UTI on Admission? No Signatures: Dispatcher [employer] EDMS Shirley Gonzalez RN RN Ron Viveros MD MD cha Chretien, Felicia, RN RN Patt Castellano RN RN 1 Corrections: (The following items were deleted from the chart) 20: 20:01 Home Meds: bumetanide 0.5 mg Oral tab 1 tab once daily; [facility] 20: 20:01 Home Meds: metoprolol tartrate 50 mg Oral tab 1 tab 2 times per day; [facility] 23:02 22:49 Hospitalization Ordered by Ankur Espinoza MD for Inpatient Admission. Preliminary diagnosis is Hypokalemia; End stage renal disease; Unspecified kidney failure; Pleural effusion in conditions classified elsewhere; Abdominal tenderness. Bed requested for Telemetry/MedSurg (Inpatient). Status is Inpatient Admission. Condition is Fair. Problem is new. Symptoms have improved. UTI on Admission? No. yoni 04/09 00:55 04/08 23:02 04/08/2018 22:49 Hospitalization Ordered by Ankur Espinoza MD for Inpatient [facility] Admission. Preliminary diagnosis is Hypokalemia; End stage renal disease; Unspecified kidney failure; Pleural effusion in conditions classified elsewhere; Abdominal tenderness. Bed requested for Telemetry/MedSurg (Inpatient). Status is Inpatient Admission. Condition is Fair. Problem is new. Symptoms have improved. UTI on Admission? No. mw
--- NOTE | 2018-04-08 22:49 | ER ---
Nurse's Notes [facility] Name: Blaise Quarles Age: 77 yrs Sex: Male : 1940 Arrival Date: 04/08/2018 Time: 19:41 Bed 3 Private MD: out of town, doctor Diagnosis: Hypokalemia;End stage renal disease;Unspecified kidney failure;Pleural effusion in conditions classified elsewhere;Abdominal tenderness Presentation: 04/08 19:25 Presenting complaint: EMS states: that they were toned for lower abd pain. But upon there arrival blood sugar was 34, pt given 2 tubes of oral glucose and was up to 62. Pt's family states that pt only void small amt of urine this am. Pt is in renal failure but is refusing dialysis. Transition of care: patient was not received from another setting of care. Onset of symptoms was April 08, 2018. Risk Assessment: Do you want to hurt yourself or someone else? Patient reports no desire to harm self or others. Initial Sepsis Screen: Does the patient meet any 2 criteria? No. Patient's initial sepsis screen is negative. Does the patient have a suspected source of infection? No. Patient's initial sepsis screen is negative. Care prior to arrival: Medication(s) given: oral glucose x 2 Glucose check: 34. 19:25 Method Of Arrival: EMS: [facility] 19:25 Acuity: SARATH 3 Historical: - Allergies: 20:01 Aspirin; fc - Home Meds: 20:01 amlodipine 10 mg tab 1 tab once daily [Active]; atorvastatin 10 mg Oral tab 1 tab fc nightly [Active]; glipizide 10 mg Oral tab 1 tab 2 times per day [Active]; tramadol 50 mg oral tab 1 tab tid prn [Active]; tamsulosin 0.4 mg oral cp24 1 cap once daily [Active]; 20:31 bumetanide 1 mg oral tab 2 times per day [Active]; metoprolol tartrate 50 mg Oral tab 1 lp1 tab once daily [Active]; - PMHx: 20:01 Anemia; chronic renal disease; Diabetes - IDDM; CAD; Hypertension; Myocardial fc infarction; pulmonary nodule; Visually impared; High Cholesterol; CHF; pleural effusion; Cirrhosis; cardiomegaly; pumonary nodule; - PSHx: 20:01 Pacemaker; Triple bypass; fc - Immunization history:: Last tetanus immunization: unknown. - Social history:: Smoking status: Patient/guardian denies using tobacco. - Ebola Screening: : Patient negative for fever greater than or equal to 101.5 degrees Fahrenheit, and additional compatible Ebola Virus Disease symptoms Patient denies exposure to infectious person Patient denies travel to an Ebola-affected area in the 21 days before illness onset. - Family history:: not pertinent. Screenin:48 Abuse screen: Denies threats or abuse. Nutritional screening: No deficits noted. fc Tuberculosis screening: No symptoms or risk factors identified. Fall Risk Fall in past 12 months (25 points). Secondary diagnosis (15 points) impaired mobility, IV access (20 points). Ambulatory Aid- Crutches/Cane/Walker (15 pts). Gait- Impaired (20 pts.). Mental Status- Overestimates/Forgets Limitations (15 pts.). Total Parson Fall Scale indicates High Risk Score (45 or more points). Fall prevention measures have been instituted. Side Rails Up X 2 Placed Close to Nursing Station Frequent Obs/Assessments Occuring Family Present and informed to notify staff if the need to leave the bedside As available patient and family educated on Fall Prevention Program and Strategies. Assessment: 19:58 General: Appears in no apparent distress. Behavior is agitated, uncooperative. Pain: lp1 Complains of pain in right upper quadrant Unable to use pain scale. Patient is disoriented. Neuro: Level of Consciousness is awake, confused, Oriented to person, place. Cardiovascular: Patient's skin is warm and dry. Respiratory: Respiratory effort is even, unlabored, Respiratory pattern is regular, Breath sounds are clear bilaterally. GI: Abdomen is non-distended, Bowel sounds present X 4 quads. Abdomen is tender to palpation in right upper quadrant. : No signs and/or symptoms were reported regarding the genitourinary system. EENT: No signs and/or symptoms were reported regarding the EENT system. Derm: Skin is fragile, is thin, Skin is dry, Skin is normal. Musculoskeletal: Circulation, motion, and sensation intact. 20:00 Reassessment: Dr. Viveros at bedside with patient and family, need for dialysis lp1 discussed; Patient declining treatment of dialysis. 20:25 Reassessment: Patient refusing to go to CT, states he is too cold to go right now; lp1 patient given more blankets and socks at this time; Patient states to give him a few minutes to get warm; family at bedside. 20:57 Reassessment: pt refused CT stated "they can figure out what is wrong with blood work" ak1 pt refused CT asking only for pain medication. nuclear medicine chief technologist informed ERP. . 21:07 Reassessment: Patient agrees to go to CT at this time. lp1 21:18 Reassessment: pt taken to CT, placed on table and refused CT. nuclear medicine chief technologist informed ERP. ak1 22:41 Reassessment: Dr. Viveros at bedside to discuss care with patient and family. lp1 23:20 Reassessment: Patient appears in no apparent distress at this time. Patient resting, lp1 eyes closed, respirations unlabored; Waiting for CT results prior to admission. 04/09 00:30 Reassessment: Patient appears in no apparent distress at this time. No changes from lp1 previously documented assessment. Patient and/or family updated on plan of care and expected duration. Pain level reassessed. Vital Signs: 04/08 19:25 BP 167 / 65; Pulse 61; Resp 18; Temp 97.6(O); Pulse Ox 96% on R/A; Weight 63.5 kg (R); Height 5 ft. 3 in. (160.02 cm) (R); Pain 6/10; 20:15 BP 165 / 72; Pulse 61; Resp 22; Pulse Ox 93% on R/A; lp1 21:04 BP 145 / 79; Pulse 60; Resp 15; Pulse Ox 94% on R/A; lp1 23:18 BP 156 / 54; Pulse 61; Resp 13; Pulse Ox 94% on R/A; lp1 04/09 00:30 BP 151 / 62; Pulse 59; Resp 22; Pulse Ox 93% on R/A; lp1 04/08 19:25 Body Mass Index 24.80 (63.50 kg, 160.02 cm) ED Course: 04/08 19:25 Arm band placed on Patient placed in an exam room, on a stretcher. 19:25 Patient has correct armband on for positive identification. Bed in low position. Call light in reach. Side rails up X2. telemetry monitor on. Pulse ox on. NIBP on. 19:25 No provider procedures requiring assistance completed. fc 19:37 Inserted saline lock: 20 gauge in right forearm, using aseptic technique. Blood fc collected. 19:41 Patient arrived in ED. fc 19:42 out of town, doctor is Private Physician. fc 19:44 Patt Castellano, RN is Primary Nurse. lp1 19:47 Ron Viveros MD is Attending Physician. [facility] 19:47 Triage completed. fc 20:06 XRAY Chest (1 view) In Process Unspecified. EDMS 20:57 Notified ED physician of a critical lab result(s). creat of 6.60. fc 21:38 Radiology exam delayed due to WENT TO GET PT AFTER ORDER PRINTED AND PT REFUSED CT ka SCAN. WE GOT MR GILL INTO CT AT 0 AND PT REFUSED AGAIN. 22:47 Ankur Espinoza MD is Hospitalizing Provider. [facility] 22:59 CT Chest Abdomen Pelvis W/O Contrast: no iv , no po In Process Unspecified. EDMS 23:04 CT completed. Patient tolerated procedure well. Patient moved back from CT. kc3 23:19 Patient admitted, IV remains in place. lp1 Administered Medications: 19:38 Drug: D50W 50 ml Route: IVP; Site: right forearm; lp1 20:00 Follow up: Response: Blood sugar is elevated lp1 Point of Care Testing: Blood Glucose: 19:31 Blood Glucose: 45 mg/dL; fc 19:57 Blood Glucose: 170 mg/dL; lp1 23:18 Blood Glucose: 181 mg/dL; lp1 Ranges: Outcome: 22:49 Decision to Hospitalize by Provider. yoni 23:19 Condition: stable lp1 23:19 Instructed on the need for admit. 04/09 00:44 Admitted to Tele via stretcher, room 426, Report called to HUONG Dickinson lp1 00:55 Patient left the ED. lp1 Signatures: Dispatcher [employer] EDWY Ron Viveros MD MD cha Chretien, Felicia RN HUONG Patt Castellano, RN RN lp1 Sandy Thomas RN RN Rose Mary Ford Kim kc3 Corrections: (The following items were deleted from the chart) 04/08 19:45 19:45 D50W 50 ml IVP in right forearm lp1 lp1 20:31 20:01 Home Meds: bumetanide 0.5 mg Oral tab 1 tab once daily; lp1 20:31 20:01 Home Meds: metoprolol tartrate 50 mg Oral tab 1 tab 2 times per day; lp1
[2018-04-08] MEDS ORDERED: GLUCAGON 1 MG/VIAL IM PRN (22:52)
[2018-04-08] MEDS ORDERED: D50W 25 GM/50 ML SYRINGE IV PRN (22:52)
[2018-04-08 23:03] LABS: Urine Blood NEGATIVE (NEG); Urine Glucose NEGATIVE (NEG); Urine Protein NEGATIVE (NEG); Urine pH 6.5 (5.0-7.0)
[2018-04-08] MEDS ORDERED: NA CHLORIDE 0.9% 1,000 ML IV SCH (23:45)
[2018-04-08] MEDS ORDERED: ONDANSETRON 4 MG/2 ML VIAL IV PRN (23:48)
[2018-04-08] MEDS ORDERED: ACETAMINOPHEN 500 MG TAB PO PRN (23:48)
[2018-04-08] MEDS ORDERED: MORPHINE 2 MG/ML SYR IV PRN (23:48)
--- NOTE | 2018-04-09 07:02 | P.HP ---
Certification for Inpatient Patient admitted to: Inpatient With expected LOS: >2 Midnights Patient will require the following post-hospital care: None Practitioner: I am a practitioner with admitting privileges, knowledge of patient current condition, hospital course, and medical plan of care. Services: Services provided to patient in accordance with Admission requirements found in Title 42 Section 412.3 of the Code of Federal Regulations Patient History Date of Service: 04/08/18 Reason for admission: Hypoglycemia History of Present Illness: Patient is a 77-year-old gentleman who has a history of diabetes and end-stage renal disease. He has had started having abdominal pain and was feeling weak and lethargic. The family checked his blood sugar and it was only 34. They gave him oral glucose in his blood sugars only went up to about 60. The family were concerned and brought him into the emergency room for further evaluation. Patient has a history of end-stage renal disease but he does not want to be on hemodialysis. His renal function has gradually worsened and he continues to decline. I believe his oral hypoglycemics are staying in his system a little too long which is worsening his hypoglycemia. Will check a hemoglobin A1c and will stop his oral hypoglycemics. At this time, patient will be admitted to the hospital for further evaluation. Allergies aspirin Allergy (Verified 01/11/18 15:42) Nausea/Vomiting No Known Allergies Allergy (Uncoded 01/18/18 10:03) Unknown Home Medications: Atorvastatin Calcium [Lipitor*] 10 mg PO BEDTIME 12/15/17 Glipizide [Glipizide ER] 10 mg PO BIDWM 12/15/17 Metoprolol Succinate [Toprol Xl*] 50 mg PO BID 12/15/17 Amlodipine [Norvasc*] 10 mg PO DAILY 03/15/18 Bumetanide 0.5 mg PO DAILY 03/15/18 Tamsulosin [Flomax*] 0.4 mg PO BEDTIME 03/15/18 traMADol HCL [Ultram*] 50 mg PO TID PRN #15 tab 03/16/18 - Past Medical/Surgical History Has patient received pneumonia vaccine in the past: No Diabetic: Yes -: Hypertension -: Coronary disease -: Diabetes mellitus type 2 -: Hyperlipidemia -: Chronic renal disease -: History of bilateral pleural effusion -: Anemia of chronic disease -: Anemia of chronic disease -: MT -: PULMONARY NODULE -: SHORTNESS OF BREATH -: Repair of left finger fracture -: CABG maybe three Psychosocial/ Personal History: He is 56 years, has 13 children, he does not work. - Family History Father Medical History: GI disease Notes: none per pt - Social History Smoking Status: Former smoker Alcohol use: No CD- Drugs: No Caffeine use: Yes Review of Systems 10-point ROS is otherwise unremarkable Physical Examination - Vital Signs Temperature: 99.3 F Blood Pressure: 158/69 Pulse: 60 Respirations: 18 Pulse Ox (%): 94 - Physical Exam General: Alert, In no apparent distress, Oriented x2, Confused HEENT: Atraumatic, PERRLA, Mucous membr. moist/pink, EOMI, Sclerae nonicteric Neck: Supple, 2+ carotid pulse no bruit, No LAD, Without JVD or thyroid abnormality Respiratory: Clear to auscultation bilaterally, Normal air movement Cardiovascular: Regular rate/rhythm, Normal S1 S2, Systolic murmur Gastrointestinal: Normal bowel sounds, Soft and benign, Non-distended, No tenderness Musculoskeletal: No clubbing, No tenderness, Swelling Integumentary: No rashes, Tenderness/swelling Neurological: Normal speech, Sensation intact, Cranial nerves 3-12 intact, Normal affect, Abnormal gait, Abnormal strength, Abnormal tone Lymphatics: No axilla or inguinal lymphadenopathy - Studies Laboratory Data (last 24 hrs) 04/08/18 19:37: PT 13.5 H, INR 1.14 04/08/18 19:37: WBC 7.1, Hgb 11.0 L, Hct 31.6 L, Plt Count 255 04/08/18 19:37: Sodium 132 L, Potassium 3.9, BUN 70 H, Creatinine 6.60 H*, Glucose 51 L, Magnesium 2.2, Total Bilirubin 0.5, AST 28, ALT 24, Alkaline Phosphatase 127 H, Lipase 111 Assessment & Plan - Problems (Diagnosis) (1) Hypoglycemia Current Visit: Yes Status: Acute (2) End stage renal disease Current Visit: Yes Status: Acute (3) Bilateral lower extremity edema Current Visit: Yes Status: Acute (4) Cardiac arrest Current Visit: No Status: Resolved (5) Cardiac cirrhosis Onset Date: 12/15/17 Current Visit: No Status: Chronic (6) Aortic stenosis Onset Date: 02/03/18 Current Visit: No Status: Chronic Qualifiers: (7) CHF (congestive heart failure) Onset Date: 07/28/16 Current Visit: No Status: Chronic (8) Coronary artery disease Onset Date: 07/15/17 Current Visit: No Status: Chronic Qualifiers: (9) Diabetes mellitus Onset Date: 07/15/17 Current Visit: No Status: Chronic Qualifiers: Diabetes mellitus type: type 2 (10) Hypertension Onset Date: 02/21/16 Current Visit: No Status: Chronic Qualifiers: Hypertension type: essential hypertension (11) Liver cirrhosis Onset Date: 12/15/17 Current Visit: No Status: Chronic Qualifiers: (12) Status post coronary artery bypass graft Onset Date: 07/15/17 Current Visit: No Status: Chronic - Plan Plan: 1. Will go ahead and stop oral hypoglycemic agents 2. Will go ahead and give patient some gentle hydration along with resume renal diet 3. Will give in and the D 50 as needed 4. Check hemoglobin A1c level 5. Gentle hydration and nephrology consultation. Patient does not want to get hemodialyzed so will try to manage patient's clinical symptoms as best we can 6. Strict blood pressure and blood sugar control 7. Monitor cardiac symptoms 8. GI and DVT prophylaxis - Advance Directives Does patient have a Living Will: No Does patient have a Durable POA for Healthcare: No - Code Status/Comfort Care Code Status Assessed: Yes Code Status: Full Code Critical Care: No Time Spent Managing PTS Care (In Minutes): 50
[2018-04-09] MEDS ORDERED: MORPHINE 4 MG/ML SYR IV PRN (07:12)
[2018-04-09] MEDS: INSULIN -REGULAR HUMAN 50 UNIT/0.5 ML ML SQ SCH ×4 (07:30→20:05)
--- NOTE | 2018-04-09 08:10 | RAD REPORT ---
EXAM DESCRIPTION: CT - Chest Abd Pelvis Wo Con - 04/09/2018 1:58 am CLINICAL HISTORY: Cough, chest pain, abdominal pain, hypoglycemia, renal failure A preliminary report was provided at the time of the study and reviewed prior to final report. COMPARISON: CT abdomen and pelvis February 02, CT chest July 14 TECHNIQUE: Axial 5 millimeter thick images of the chest abdomen and pelvis were obtained without ora l or IV contrast. All CT scans are performed using dose optimization technique as appropriate and may include automated exposure control or mA/KV adjustment according to patient size. FINDINGS: Large bilateral pleural effusions are present not substantially different back to July. Near complete left lower lobe atelectasis is present. There is partial atelectasis in the lingula le ft upper lobe. There is partial atelectasis of the right lower lobe. No acute right lung parenchymal process. Left lung field patchy interstitial and alveolar opacities are not substantially different f rom the prior study. Minimal acute infiltrative changes could be present 10 minutes prior finding. No endobronchial lesion. No pneumothorax. No chest wall mass or abnormal axillary lymphadenopathy seen. Mediastinal and hilar regions show no mass or lymphadenopathy. Cardiomegaly is present with very m inimal pericardial thickening or effusion. Coronary artery calcifications are present. No acute rib f inding. Sternotomy wires are in place. The liver, spleen and pancreas show no significant findings. Gallbladder is distended. No biliary tr ee dilatation. Gallstones can be occult. No hydronephrosis. Vascular calcifications are present. An acute renal process is unlikely. No adrena l abnormalities. No urinary bladder abnormalities. Isodense masses and pyelonephritis are not exclu ded on noncontrast imaging. No dilated bowel loops or focal ball bowel wall thickening. No free air, free fluid or inflammatory stranding. No hernia, mass or bulky lymphadenopathy. Patient does have diverticulosis with a large v olume of stool in the right-side colon. No active colon process suspected. No free air or pneumatosis. Fluid retention seen in the subcutaneous fat, peritoneal fat and to some degree retroperitoneal fat. Small volume ascites noted. Dense arterial tree calcifications are present. Bony degenerative changes are present. An acute or pa thologic bone process is not identified. IMPRESSION: CHF/volume overload findings seen with cardiomegaly, interstitial opacification enlarged bilateral pleural effusions. Complete left lower lobe and partial left upper lobe and right lower lobe atelectasis. An infectious infiltrate in the left lung field superimposed on failure cannot be excluded. Small volume ascites and mild anasarca pattern likely related to failure. No acute finding of the abd omen or pelvis. Gallbladder is distended. Gallstones can be occult on CT imaging.
[2018-04-09] MEDS ORDERED: INFLUENZA VACCINE (for 3y+) 0.5 ML DOSE IMVAC ONE (09:00)
[2018-04-09] MEDS ORDERED: PNEUMOCOCCAL VACCINE 0.5 ML IMVAC ONE (09:00)
[2018-04-09 09:03] VITALS: BMI 24.7
--- NOTE | 2018-04-09 09:09 | EKG ---
Test Date: 2018-04-08 Test Time: 19:39:44 Mine Analyst: ÁNGEL MEASUREMENT RESULTS: Intervals: Rate: 58 SC: 188 QRSD: 110 QT: 482 QTc: 473 [place]: P: 51 SC: 188 QRS: -25 T: 138 INTERPRETIVE STATEMENTS: Sinus bradycardia Possible Left atrial enlargement Inferior and Anteroseptal infarct, age undetermined T wave abnormality, consider lateral ischemia Abnormal ECG Compared to ECG 03/15/2018 14:52:10 no significant change from previous ECG Electronically Signed On 04-09-18 09:08:52 CDT by Raheel Zeng
[2018-04-09] MEDS ORDERED: EPOETIN ALFA 10,000 UNIT/ML SQ ONE (09:23)
[2018-04-09] MEDS ORDERED: FUROSEMIDE 40 MG/4 ML VIAL IV ONE (09:23)
[2018-04-09] MEDS: SEVELAMER CARBONATE 800 MG TABLET PO SCH ×2 (12:00→17:50)
[2018-04-09] MEDS: TRAMADOL HCL 50 MG TAB PO PRN (14:35)
[2018-04-09] MEDS: FUROSEMIDE 40 MG/4 ML VIAL IV SCH (17:50)
--- NOTE | 2018-04-09 19:59 | P.CNS ---
Date of Consult: 04/09/18 Reason for Consult: [place]/ CKD Requesting Physician: Ivon Mckeon Chief Complaint: Hypoglycemia History of Present Illness: 77 yo HM CKD, HTN presented to the ER with hypoglycemia and back pain. Know to have severe CKD and refuses dialysis. Patient is a 77-year-old gentleman who has a history of diabetes and end-stage renal disease. He has had started having abdominal pain and was feeling weak and lethargic. The family checked his blood sugar and it was only 34. They gave him oral glucose in his blood sugars only went up to about 60. The family were concerned and brought him into the emergency room for further evaluation. Patient has a history of end-stage renal disease but he does not want to be on hemodialysis. His renal function has gradually worsened and he continues to decline. I believe his oral hypoglycemics are staying in his system a little too long which is worsening his hypoglycemia. Will check a hemoglobin A1c and will stop his oral hypoglycemics. At this time, patient will be admitted to the hospital for further evaluation. 20:09 This 77 yrs old Male presents to ER via EMS with complaints of Abdominal Pain, yoni Low Blood Sugar. 20:09 This 77 yrs old Male presents to ER via EMS with complaints of Abdominal Pain, yoni Low Blood Sugar. 20:04 The patient or guardian reports altered mental status, hypoglycemia. Allergies aspirin Allergy (Verified 01/11/18 15:42) Nausea/Vomiting No Known Allergies Allergy (Uncoded 01/18/18 10:03) Unknown Home medications list reviewed: Yes Home Medications: Atorvastatin Calcium [Lipitor*] 10 mg PO BEDTIME 12/15/17 Glipizide [Glipizide ER] 10 mg PO BIDWM 12/15/17 Metoprolol Succinate [Toprol Xl*] 50 mg PO BID 12/15/17 Amlodipine [Norvasc*] 10 mg PO DAILY 03/15/18 Bumetanide 0.5 mg PO DAILY 03/15/18 Tamsulosin [Flomax*] 0.4 mg PO BEDTIME 03/15/18 traMADol HCL [Ultram*] 50 mg PO TID PRN #15 tab 03/16/18 - Past Medical/Surgical History Diabetic: Yes -: Hypertension -: Coronary disease -: Diabetes mellitus type 2 -: Hyperlipidemia -: Chronic renal disease -: History of bilateral pleural effusion -: Anemia of chronic disease -: Anemia of chronic disease -: [place] -: PULMONARY NODULE -: SHORTNESS OF BREATH -: Repair of left finger fracture -: CABG maybe three Psychosocial/ Personal History: He is 56 years, has 13 children, he does not work. - Family History Father Medical History: GI disease Notes: none per pt - Social History Smoking Status: Unknown if ever smoked Alcohol use: No CD- Drugs: No Caffeine use: Yes Review of Systems 10-point ROS is otherwise unremarkable General: Weakness, Malaise Respiratory: SOB with Excertion Cardiovascular: Edema Neurological: Weakness Physical Examination Temp Pulse Resp BP Pulse Ox 98.3 F 66 20 173/70 H 91 04/09/18 19:49 04/09/18 19:49 04/09/18 19:49 04/09/18 19:49 04/09/18 19:49 General: Oriented x3, Cooperative HEENT: Atraumatic Neck: Supple, JVD distended Respiratory: Crackles/rales Cardiovascular: Regular rate/rhythm, No rubs, Edema Gastrointestinal: Soft and benign, Non-distended Musculoskeletal: No clubbing, No contractures Integumentary: No rashes, No cyanosis Neurological: Normal speech Laboratory Data (last 24 hrs) 04/08/18 19:37: PT 13.5 H, INR 1.14 04/08/18 19:37: WBC 7.1, Hgb 11.0 L, Hct 31.6 L, Plt Count 255 04/08/18 19:37: Sodium 132 L, Potassium 3.9, BUN 70 H, Creatinine 6.60 H*, Glucose 51 L, Magnesium 2.2, Total Bilirubin 0.5, AST 28, ALT 24, Alkaline Phosphatase 127 H, Lipase 111 Imagings Data: EXAM DESCRIPTION: CT - Chest Abd Pelvis Wo Con - 04/09/2018 1:58 am CLINICAL HISTORY: Cough, chest pain, abdominal pain, hypoglycemia, renal failure A preliminary report was provided at the time of the study and reviewed prior to final report. COMPARISON: CT abdomen and pelvis February 02, CT chest July 14 TECHNIQUE: Axial 5 millimeter thick images of the chest abdomen and pelvis were obtained without oral or IV contrast. All CT scans are performed using dose optimization technique as appropriate and may include automated exposure control or mA/KV adjustment according to patient size. FINDINGS: Large bilateral pleural effusions are present not substantially different back to July. Near complete left lower lobe atelectasis is present. There is partial atelectasis in the lingula left upper lobe. There is partial atelectasis of the right lower lobe. No acute right lung parenchymal process. Left lung field patchy interstitial and alveolar opacities are not substantially different from the prior study. Minimal acute infiltrative changes could be present 10 minutes prior finding. No endobronchial lesion. No pneumothorax. No chest wall mass or abnormal axillary lymphadenopathy seen. Mediastinal and hilar regions show no mass or lymphadenopathy. Cardiomegaly is present with very minimal pericardial thickening or effusion. Coronary artery calcifications are present. No acute rib finding. Sternotomy wires are in place. The liver, spleen and pancreas show no significant findings. Gallbladder is distended. No biliary tree dilatation. Gallstones can be occult. No hydronephrosis. Vascular calcifications are present. An acute renal process is unlikely. No adrenal abnormalities. No urinary bladder abnormalities. Isodense masses and pyelonephritis are not excluded on noncontrast imaging. No dilated bowel loops or focal ball bowel wall thickening. No free air, free fluid or inflammatory stranding. No hernia, mass or bulky lymphadenopathy. Patient does have diverticulosis with a large volume of stool in the right-side colon. No active colon process suspected. No free air or pneumatosis. Fluid retention seen in the subcutaneous fat, peritoneal fat and to some degree retroperitoneal fat. Small volume ascites noted. Dense arterial tree calcifications are present. Bony degenerative changes are present. An acute or pathologic bone process is not identified. IMPRESSION: CHF/volume overload findings seen with cardiomegaly, interstitial opacification enlarged bilateral pleural effusions. Complete left lower lobe and partial left upper lobe and right lower lobe atelectasis. An infectious infiltrate in the left lung field superimposed on failure cannot be excluded. Small volume ascites and mild anasarca pattern likely related to failure. No acute finding of the abdomen or pelvis. Gallbladder is distended. Gallstones can be occult on CT imaging. Conclusions/Impression: A/ ESRD. Refusing dialysis. HTN with CKD. A/C Diastolic CHF. Anemia in CKD. Hyponatremia. JUN/ Secondary HyperPTH. P/ Continue current POC and Medications. Give IV Lasix. Stop IVF. Give Epo. Start binders and vitamin d. Check HBV panel. No NSAIDs. AM labs. Daily weight. Thank you kindly for the consultation. Case discussed with Dr. Mckeon
[2018-04-09] MEDS: ATORVASTATIN 10 MG TAB PO SCH (20:03)
[2018-04-09] MEDS: TAMSULOSIN 0.4 MG SR CAP PO SCH (20:03)
[2018-04-09] MEDS: METOPROLOL XL 50 MG TAB PO SCH (20:03)
[2018-04-09 22:02] VITALS: O2SAT 92
[2018-04-10] MEDS: FUROSEMIDE 40 MG/4 ML VIAL IV SCH ×4 (01:43→21:06)
[2018-04-10] MEDS: TRAMADOL HCL 50 MG TAB PO PRN (04:41)
[2018-04-10 07:02] LABS: Absolute Lymphocytes (CBC) 0.6 K/uL (0.7-4.9); Absolute Monocytes 0.4 K/uL (0.1-1.3); Absolute Neutrophil 4.2 K/uL (1.8-8.0); Basophils % 0.6 % (0-1.3); Eosinophils % 0.9 % (0-4.4); Lymphocytes % 11.8 % (15.3-44.8); MCH 32.3 pg (27.0-35.0); MCV 93.3 fL (80-100); MPV 8.3 fL (7.6-11.3); Monocytes % 7.6 % (3.3-12.3); RBC Red Blood Cell Count 2.79 M/uL (4.33-5.43)
[2018-04-10 07:28] LABS: Albumin 3.1 g/dL (3.4-5.0); Bilirubin Total 0.5 mg/dL (0.2-1.0); Potassium 3.9 mmol/L (3.5-5.1); Protein, Total 7.2 g/dL (6.4-8.2)
[2018-04-10] MEDS: INSULIN -REGULAR HUMAN 50 UNIT/0.5 ML ML SQ SCH ×4 (07:30→21:00)
[2018-04-10 07:40] LABS: Folic Acid, (Folate) 7.2 ng/mL (3.1-17.5); Magnesium 1.9 mg/dL (1.8-2.4); Phosphorus 4.7 mg/dL (2.5-4.9); Thyroid Stimulating Hormone 3.49 uIU/mL (0.360-3.740)
[2018-04-10] MEDS: SEVELAMER CARBONATE 800 MG TABLET PO SCH ×3 (08:22→16:34)
[2018-04-10] MEDS: AMLODIPINE 10 MG TAB PO SCH ×2 (09:00→13:23)
[2018-04-10] MEDS: METOPROLOL XL 50 MG TAB PO SCH ×4 (09:00→21:06)
[2018-04-10] MEDS: VITAMIN D 5,000 UNIT CAP PO SCH ×2 (09:00→13:23)
[2018-04-10] MEDS: CALCITROL 0.25 MCG CAP PO SCH ×2 (09:00→13:23)
--- NOTE | 2018-04-10 12:27 | P.PN ---
Subjective Date of Service: 04/10/18 Chief Complaint: Hypoglycemia Pt seen and examined at bedside. Pt still refusing all the lab and medication this AM. States he only wants Shots. pt stated yesterday that he would like to get Pain shot first before he will even communicate with us. This AM family ( Son in Law) at bedside explained the importance of Dialysis vs Hospice. Explained the mortality and morbidity of ESRD. Family is going to talk the patient today and get a decision by gunjan AM regarding dialysis vs hospice care. Review of Systems 10-point ROS is otherwise unremarkable Physical Examination - Vital Signs Temperature: 97.9 F Blood Pressure: 160/63 Pulse: 65 Respirations: 16 Pulse Ox (%): 94 - Physical Exam General: Alert, Mild distress HEENT: Atraumatic, PERRLA, EOMI Neck: Supple, JVD not distended Respiratory: Normal air movement, Crackles/rales Cardiovascular: Regular rate/rhythm, Normal S1 S2 Gastrointestinal: Normal bowel sounds, No tenderness Musculoskeletal: No tenderness Integumentary: No rashes Neurological: Normal speech, Normal tone, Normal affect Lymphatics: No axilla or inguinal lymphadenopathy Other Physical/Emotional Findings: Pt is very Angry and Rude to the Staff. Pt states he wants everyone to keep out of his room and for dr to get out in [place] - Studies Medications List Reviewed: Yes Assessment And Plan - Current Problems (Diagnosis) (1) End stage renal disease Current Visit: Yes Status: Acute Plan: Patient with Worsening of the Renal Function. BUN and CR getting worse. Volume Overload. -Pt still refusing all the lab and medication this AM. States he only wants Shots. pt stated yesterday that he would like to get Pain shot first before he will even communicate with us. This AM family (Son in Law) at bedside explained the importance of Dialysis vs Hospice. Explained the mortality and morbidity of ESRD. Family is going to talk the patient today and get a decision by gunjan AM regarding dialysis vs hospice care. -Will await decision from Family -Nephrology consulted. -IV lasix for now (2) CHF (congestive heart failure) Onset Date: 07/28/16 Current Visit: No Status: Chronic Qualifiers: Heart failure type: combined systolic and diastolic Heart failure chronicity: acute on chronic Qualified Code(s): I50.43 - Acute on chronic combined systolic (congestive) and diastolic (congestive) heart failure (3) Coronary artery disease Onset Date: 07/15/17 Current Visit: No Status: Chronic Qualifiers: Coronary Disease-Associated Artery/Lesion type: [place] artery [place] vs. transplanted heart: [place] heart Associated angina: without angina Qualified Code(s): I25.10 - Atherosclerotic heart disease of [place] coronary artery without angina pectoris (4) Diabetes mellitus Onset Date: 07/15/17 Current Visit: No Status: Chronic Qualifiers: Diabetes mellitus type: type 2 Diabetes mellitus tank terminal gauger insulin use: without tank terminal gauger use Diabetes mellitus complication status: without complication Qualified Code(s): E11.9 - Type 2 diabetes mellitus without complications (5) Hypertension Onset Date: 02/21/16 Current Visit: No Status: Chronic Qualifiers: Hypertension type: essential hypertension Qualified Code(s): I10 - Essential (primary) hypertension (6) Liver cirrhosis Onset Date: 12/15/17 Current Visit: No Status: Chronic Qualifiers: Hepatic cirrhosis type: unspecified hepatic cirrhosis Ascites presence: without ascites Qualified Code(s): K74.60 - Unspecified cirrhosis of liver Discharge Plan: Home Plan to discharge in: 24 Hours - Code Status/Comfort Care Code Status Assessed: Yes Critical Care: No
--- NOTE | 2018-04-10 16:07 | P.PN ---
Date of Service: 04/10/18 patient seen/examined. labs/meds reviewed. vs stable. bp 140-160 systolic. trace edema. lungs with decreased bs. abd soft. ext with trace edema. patient looks weak and tired. labs reviewed. discussed in detail with family and patient and spoke in patient in upper sor[place] as well. son/daughter present. primary RN present. recommended starting dialysis. risk with not doing dialysis explained. advised about option to start dialysis and then stop if he changes his mind in future. patient's family also tried to convince him. patient is adamant to not get dialysis but towards the end of our discussion, he did say that he will consider the option of dialysis and will let nurse know if he has a change of mind. he understands that a dialysis catheter would need to be placed before we can dialyze him. we can order surgery consult for placement of such a catheter once and if patient agrees to dialysis. discussed this with family and patient for about 30 minutes.
[2018-04-10] MEDS: ATORVASTATIN 10 MG TAB PO SCH ×2 (21:00→21:06)
[2018-04-10] MEDS: TAMSULOSIN 0.4 MG SR CAP PO SCH ×2 (21:00→21:07)
[2018-04-11] MEDS: FUROSEMIDE 40 MG/4 ML VIAL IV SCH ×2 (01:26→09:00)
[2018-04-11] MEDS ORDERED: ALPRAZOLAM 0.5 MG TABLET PO ONE (04:09)
[2018-04-11] MEDS: INSULIN -REGULAR HUMAN 50 UNIT/0.5 ML ML SQ SCH ×2 (07:30→11:30)
[2018-04-11] MEDS: SEVELAMER CARBONATE 800 MG TABLET PO SCH ×2 (08:00→11:54)
[2018-04-11] MEDS: CALCITROL 0.25 MCG CAP PO SCH (09:00)
[2018-04-11] MEDS: AMLODIPINE 10 MG TAB PO SCH (09:00)
[2018-04-11] MEDS: VITAMIN D 5,000 UNIT CAP PO SCH (09:00)
[2018-04-11] MEDS: METOPROLOL XL 50 MG TAB PO SCH (09:00)
[2018-04-11 12:03] VITALS: BP 171/58; TEMP 97.8
--- NOTE | 2018-04-11 15:28 | P.DS ---
Admission Date: 04/08/18 Discharge Date: 04/11/18 Disposition: ROUTINE DISCHARGE Discharge Condition: FAIR Reason for Admission: Hypoglycemia Consultations: Nephrology - Problems (1) End stage renal disease Current Visit: Yes Status: Acute (2) CHF (congestive heart failure) Onset Date: 07/28/16 Current Visit: No Status: Chronic Qualifiers: Heart failure type: combined systolic and diastolic Heart failure chronicity: acute on chronic Qualified Code(s): I50.43 - Acute on chronic combined systolic (congestive) and diastolic (congestive) heart failure (3) Coronary artery disease Onset Date: 07/15/17 Current Visit: No Status: Chronic Qualifiers: Coronary Disease-Associated Artery/Lesion type: [place] artery [place] vs. transplanted heart: [place] heart Associated angina: without angina Qualified Code(s): I25.10 - Atherosclerotic heart disease of [place] coronary artery without angina pectoris (4) Diabetes mellitus Onset Date: 07/15/17 Current Visit: No Status: Chronic Qualifiers: Diabetes mellitus type: type 2 Diabetes mellitus custodial insulin use: without ad terminal makeup operator use Diabetes mellitus complication status: without complication Qualified Code(s): E11.9 - Type 2 diabetes mellitus without complications (5) Hypertension Onset Date: 02/21/16 Current Visit: No Status: Chronic Qualifiers: Hypertension type: essential hypertension Qualified Code(s): I10 - Essential (primary) hypertension (6) Liver cirrhosis Onset Date: 12/15/17 Current Visit: No Status: Chronic Qualifiers: Hepatic cirrhosis type: unspecified hepatic cirrhosis Ascites presence: without ascites Qualified Code(s): K74.60 - Unspecified cirrhosis of liver Brief History of Present Illness: See HPI Hospital Course: Patient presented with shortness of breath secondary to volume overload secondary to end-stage renal disease stage 5 and CHF. Patient has chronic pleural effusions. Patient was evaluated by nephrology. Patient was diuresed. Patient refuses dialysis at this time. This was addressed in detail with the patient multiple times. Patient has reservations and refuses dialysis. This was discussed in detail with nephrology. Hospice was addressed with the patient in detail again. He refuses multiple times. Patient unable to make any decision regarding dialysis versus hospice at this time. Patient has been to the hospital multiple times for worsening of his volume overload and shortness of breath secondary to that. Patient has been educated multiple times regarding his disease process and the need for dialysis versus hospice care. Patient continues to refuse care here in the hospital every time he is admitted to the hospital. Patient's family is also educated extensively regarding appropriate care for the patient and the need for dialysis versus hospice for the patient. Patient at this time wants to be sent home on pain management only. However does not wish to be on hospice. Patient does not wish to be in the hospital if he is not going to be getting any pain management. Patient educated on the side effects of medication and then SE of pain medication on the kidneys. Patient wishes to leave the hospital and be discharged home. At discharge he will continue with a 1500 cc per day fluid restriction and low- salt diet. Patient will also continue with all medication as prescribed by the public information coordinator. Patient may reconsider dialysis in the near future. It is recommended that he follow up with nephrology in 1 week to further discuss. I will recommend hospice at this time. Further adjustment can be done with hospice if patient agrees to hospice care. Patient has poor medical compliance and had readmission rate due to poor medical judgment at this. Vital Signs/Physical Exam: Temp Pulse Resp BP Pulse Ox 97.8 F 68 18 171/58 H 98 04/11/18 12:00 04/11/18 12:00 04/11/18 12:00 04/11/18 12:00 04/11/18 12:00 General: Alert, In no apparent distress HEENT: Atraumatic, PERRLA, EOMI Neck: Supple, JVD not distended Respiratory: Clear to auscultation bilaterally, Normal air movement Cardiovascular: Regular rate/rhythm, Normal S1 S2 Gastrointestinal: Normal bowel sounds, No tenderness Musculoskeletal: No tenderness Integumentary: No rashes Neurological: Normal speech, Normal tone, Normal affect Lymphatics: No axilla or inguinal lymphadenopathy Other Physical/Emotional Findings: Pt is very Angry and Rude to the Staff. Pt states he wants everyone to keep out of his room and for dr to get out in [place] Laboratory Data at Discharge: WBC 5.3 K/uL (4.3-10.9) D 04/10/18 06:38 Hgb 9.0 g/dL (13.6-17.9) L 04/10/18 06:38 Hct 26.0 % (39.6-49.0) L D 04/10/18 06:38 Plt Count 223 K/uL (152-406) 04/10/18 06:38 PT 13.5 SECONDS (9.5-12.5) H 04/08/18 19:37 INR 1.14 04/08/18 19:37 Sodium 135 mmol/L (136-145) L 04/10/18 06:38 Potassium 3.9 mmol/L (3.5-5.1) 04/10/18 06:38 BUN 67 mg/dL (7-18) H 04/10/18 06:38 Creatinine 6.70 mg/dL (0.55-1.3) H* 04/10/18 06:38 Glucose 97 mg/dL (74-106) 04/10/18 06:38 Phosphorus 4.7 mg/dL (2.5-4.9) 04/10/18 06:38 Magnesium 1.9 mg/dL (1.8-2.4) 04/10/18 06:38 Total Bilirubin 0.5 mg/dL (0.2-1.0) 04/10/18 06:38 AST 25 U/L (15-37) 04/10/18 06:38 ALT 18 U/L (12-78) 04/10/18 06:38 Alkaline Phosphatase 109 U/L (45-117) 04/10/18 06:38 Lipase 111 U/L (73-393) 04/08/18 19:37 Home Medications: Atorvastatin Calcium [Lipitor*] 10 mg PO BEDTIME 12/15/17 Glipizide [Glipizide ER] 10 mg PO BIDWM 12/15/17 Metoprolol Succinate [Toprol Xl*] 50 mg PO BID 12/15/17 Amlodipine [Norvasc*] 10 mg PO DAILY 03/15/18 Bumetanide 0.5 mg PO DAILY 03/15/18 Tamsulosin [Flomax*] 0.4 mg PO BEDTIME 03/15/18 traMADol HCL [Ultram*] 50 mg PO TID PRN #15 tab 03/16/18 Levofloxacin [Levaquin] 500 mg PO DAILY #10 tablet 04/11/18 New Medications: Levofloxacin [Levaquin] 500 mg PO DAILY #10 tablet Patient Discharge Instructions: Please f.u with Nephrology in 1 to 2 days post discharge. You are advise to start Dialysis to help with your ESRD and uremia caused by ESRD. However due to several refusal for treamtent you are being discharged home now as your respiratory status has improved. It is highly advisable for you to f/u wiht Nephrology and PCP to make a decision regardinbg dialysis vs hospice care. Diet: Renal Activity: Ad jose Followup: Dash Jacobson DO [ACTIVE - CAN ADMIT] - 1 Week (call to schedule an appointment )
[2018-04-13 19:58] LABS: HBsAG Nonreactive (Nonreactive)
== END 2018-04-11 16:00 | disposition home or self-care (01) | DRG 291 ==
LOC: ER 19:25 → ERHOLD 22:50 → 4TH 04-09 00:26
PROVIDERS: ADMIT Hospitalist; ATTEND Hospitalist
DX: I13.2 Hypertensive heart and chronic kidney disease with heart failure and with stage 5 chronic kidney disease, or end stage renal disease (principal); N18.6 End stage renal disease; I50.43 Acute on chronic combined systolic (congestive) and diastolic (congestive) heart failure; E87.1 Hypo-osmolality and hyponatremia; E11.22 Type 2 diabetes mellitus with diabetic chronic kidney disease; I25.10 Atherosclerotic heart disease of native coronary artery without angina pectoris; K74.60 Unspecified cirrhosis of liver; Z53.29 Procedure and treatment not carried out because of patient's decision for other reasons; Z95.1 Presence of aortocoronary bypass graft
CPT/HCPCS: 36415; 71045; 71250; 74176; 80048; 80053; 80076; 81003; 82533; 82607; 82746; 82962; 83036; 83690; 83735; 83880; 84100; 84439; 84443; 84484; 85025; 85610; 86704; 86706; 86803; 87040; 87077; 87086; 87088; 87186; 87340; 93005; 96374; 99285; J0885; J2270; J7030

== ENCOUNTER 2018-04-13 08:18 | Inpatient (IN) | payer OTHER ==
[2018-04-13] MEDS ORDERED: NITROGLYCERIN 1 GM PKT TD ONE ×2 (08:39→13:20)
[2018-04-13] MEDS ORDERED: ASPIRIN 81 MG CHEWABLE TABLET ONE (08:39)
[2018-04-13] MEDS ORDERED: FUROSEMIDE 40 MG/4 ML VIAL ONE (08:39)
--- OUTSIDE RECORDS SUMMARY | 2018-04-13 08:44 | XMS REPORT | Clinical Summary ---
:1940 Author Organization [facility] Address [address] [place] [address] Phone Care Team Providers Name Role Phone [...] Problem Noted Date Acute renal failure (ARF) ([facility]) 07/16/2016 S/P CABG x 3 07/04/2016 Acute pulmonary insufficiency following thoracic surgery ([facility]) 07/04/2016 Acute postoperative pain 07/04/2016 CKD (chronic kidney disease) stage 3, GFR 30-59 ml/min ([facility]) 07/04/2016 Acute blood loss anemia 07/04/2016 Type 2 diabetes mellitus with hyperglycemia, without long-term current use of insulin ([facility]) Foreign body aspiration, initial encounter 07/04/2016 Mucus plugging of bronchi 07/04/2016 NSTEMI (non-ST elevated myocardial infarction) ([facility]) 07/01/2016 CAD (coronary artery disease) 10/16/2015 Encounters Date Type Specialty Care Team Description 03/03/2018 Emergency Emergency Medicine Franklyn Dawson MD 03/01/2018 Emergency Emergency Medicine Macrina Gómez MD Urinary retention (Primary Dx);Right lower quadrant abdominal pain;Renal insufficiency;Hypertens kaley urgency 03/01/2018 Orders Only General Internal Medicine after 04/12/2017 Family History Medical History Relation Name Comments [...] Color, UA Yellow Clarity, UA Hazy Specific [place], UA 1.012 1.001 - 1.035 pH, UA [...] Yusuf Specimen Performing Laboratory Urine - Urine, [address] [address] Urine culture (03/03/2018 11:08 AM) Component Value Ref Range Result 70-79,000 col/mL Pseudomonas aeruginosa (A) Specimen Performing Laboratory Urine - Urine, [address] [address] Organism Antibiotic Method Susceptibility Pseudomonas aeruginosa Amikacin [...] normal. ST segments abnormal. T waves abnormal. [place] is normal. Other findings: no other findings. Clinical Impression: non-specific ECG and abnormal ECG CT abdomen pelvis without contrast (03/01/2018 1:46 PM) Specimen Performing Laboratory ByRead Narrative FINAL REPORT ABDOMINAL AND PELVIS CT [...] MD Report Verified Date/Time:03/01/2018 15:15:27 Reading Location: [facility] C013 CT Body Reading Room Procedure Note Interface, [...] Report Verified Date/Time: 03/01/2018 15:15:27 Reading Location: [facility] C013Y CT Body Reading Room [...] % Specimen Performing Laboratory Blood - Arm, [address] [address] CBC with platelet count + automated diff (03/01/2018 10:29 AM) Specimen Performing Laboratory Blood Narrative The following orders were created for panel order CBC with platelet count + automated diff. Procedure Abnormality Status --------- ------ CBC with platelet count ...[[id number]]AbnormalFinal result Please view results for these tests on the individual orders. Lipase (03/01/2018 10:29 AM) Component Value Ref Range Lipase 61 8 - 78 U/L Specimen Performing Laboratory Blood - Arm, [address] [address] Amylase (03/01/2018 10:29 AM) Component Value Ref Range Amylase 113 25 - 125 U/L Specimen Performing Laboratory Blood - Arm, [address] [address] Hepatic function panel (03/01/2018 10:29 AM) Component Value Ref Range Protein, Total 6.8 6.0 - 8.3 gm/dL Albumin 3.5 3.5 - 5.0 g/dL Total Bilirubin 0.4 0.2 - 1.2 mg/dL Bilirubin, Direct 0.2 0.1 - 0.5 mg/dL Alkaline Phosphatase 78 40 - 150 U/L AST 20 5 - 34 U/L ALT 21 6 - 55 U/L Specimen Performing Laboratory Blood - Arm, [address] [address] Basic Metabolic Panel (03/01/2018 10:29 AM) Component [...] PATIENTS. Specimen Performing Laboratory Blood - Arm, [address] [address] ECG 12 lead (03/01/2018 10:20 AM) Specimen Performing Laboratory GE MUSE Narrative Ventricular Rate 62 BPM Atrial Rate 62 BPM P-R Interval 178 ms QRS Duration 96 ms Q-T Interval 452 ms QTC Calculation(Bazett) 458 ms P [place] 66 degrees R [place] -24 degrees T [place] 140 degrees Normal sinus rhythm Possible Left [...] 452 ms QTC Calculation(Bazett) 458 ms P [place] 66 degrees R [place] -24 degrees T [place] 140 degrees Normal sinus rhythm Possible Left [...] STEFFI ([id number]) on 03/02/2018 6:54:28 AM after 04/12/2017
--- OUTSIDE RECORDS SUMMARY | 2018-04-13 08:44 | XMS REPORT ---
:1940 Author [facility] Address [address] [place] [address] Dr. Manley [address] [place] [address] Care Team Providers Name Role Phone LAZRODNEY DAVID Unavailable Unavailable LAYLA GÓMEZ Unavailable Unavailable Problems This patient has no known problems. Allergies, Adverse Reactions, Alerts This patient has no known allergies or adverse reactions. Medications This patient has no known medications. Results Test Description Test Time Test Comments Text Results Atomic Results Result Comments URINE CULTURE 2018-03-06 10:04:00 Test Item Value Reference Range Comments CULTURE (BEAKER) (test PSEUDOMONAS 70-79,000 col/mL ylsi=0421) AERUGINOSA Pseudomonas aeruginosa Amikacin (test code=1) Susceptible [...] code=25) Resistant <0 or >4 URINALYSIS W/ [id number] 12:06:00 Test Item Value Reference Range Comments COLOR (BEAKER) (test gpkx=241) Yellow CLARITY (BEAKER) (test cxgl=626) Hazy SPECIFIC GRAVITY UA (BEAKER) (test vfad=329) 1.012 1.001-1.035 PH UA (BEAKER) (test ktcz=312) 6.0 5.0-8.0 PROTEIN UA (BEAKER) (test wpgh=671) 600 mg/dL Negative GLUCOSE UA (BEAKER) (test hhvk=438) 100 mg/dL Negative KETONES UA (BEAKER) (test oink=657) Negative Negative BILIRUBIN UA (BEAKER) (test jjmb=409) Negative Negative BLOOD UA (BEAKER) (test qpih=566) Moderate Negative NITRITE UA (BEAKER) (test gesd=408) Negative Negative LEUKOCYTE ESTERASE UA (BEAKER) (test fqhh=843) Small Negative UROBILINOGEN UA (BEAKER) (test dkva=761) 0.2 mg/dL 0.2-1.0 RBC UA (BEAKER) (test dqns=091) 27 /HPF WBC UA (BEAKER) (test cngm=252) 12 /HPF BACTERIA (BEAKER) (test aivk=743) Occasional MUCUS (BEAKER) (test atzs=6112) Rare SQUAMOUS EPITHELIAL (BEAKER) (test bhya=275) < /HPF HYALINE CASTS (BEAKER) (test phib=834) 2 /LPF GRANULAR CASTS (BEAKER) (test nhbf=036) 5 /LPF SOURCE(BEAKER) (test gclb=9361) Urine, Yusuf CT, [id number] 15:15:00Reason for exam:->ABDOMINAL PAINWhat is the patient's [...] Verified Date/ Time: 03/01/2018 15:15:27 Reading Location: [address] Body Reading Room BASIC METABOLIC [id number] 11:04:00 Test Item Value Reference Range Comments SODIUM (BEAKER) (test 136 meq/L 136-145 juir=698) POTASSIUM (BEAKER) (test 4.0 meq/L 3.5-5.1 hflg=661) CHLORIDE (BEAKER) (test 108 meq/L 98-107 fgot=925) CO2 (BEAKER) (test 15 meq/L 22-29 tzbd=410) BLOOD UREA NITROGEN 80 mg/dL 7-21 (BEAKER) (test tnyt=134) CREATININE (BEAKER) (test 4.79 mg/dL 0.57-1.25 fkef=085) GLUCOSE RANDOM (BEAKER) 84 mg/dL 70-105 (test sbxe=973) CALCIUM (BEAKER) (test 8.9 mg/dL 8.4-10.2 zvlw=776) EGFR (BEAKER) (test 12 mL/min/1.73 sq m ESTIMATED GFR IS NOT acsn=6673) ACCURATE CREATININE CLEARANCE IN PREDICTING GLOMERULAR FILTRATION RATE. ESTIMATED GFR IS NOT APPLICABLE FOR DIALYSIS PATIENTS. [id number] 11:02:00 Test Item Value Reference Range Comments LIPASE (BEAKER) (test rxse=647) 61 U/L 8-78 [id number] 11:02:00 Test Item Value Reference Range Comments AMYLASE (BEAKER) (test khnd=195) 113 U/L 25-125 HEPATIC FUNCTION [id number] 11:02:00 Test Item Value Reference Range Comments TOTAL PROTEIN (BEAKER) (test dxel=821) 6.8 gm/dL 6.0-8.3 ALBUMIN (BEAKER) (test ecfv=4755) 3.5 g/dL 3.5-5.0 BILIRUBIN TOTAL (BEAKER) (test exbr=031) 0.4 mg/dL 0.2-1.2 BILIRUBIN DIRECT (BEAKER) (test bxiq=713) 0.2 mg/dL 0.1-0.5 ALKALINE PHOSPHATASE (BEAKER) (test ojta=604) 78 U/L 40-150 AST (SGOT) (BEAKER) (test ijyc=042) 20 U/L 5-34 ALT (SGPT) (BEAKER) (test nhbb=244) 21 U/L 6-55 URINALYSIS W/ [id number] 11:01:00 Test Item Value Reference Range Comments COLOR (BEAKER) (test fyrd=940) Light Yellow CLARITY (BEAKER) (test zvsv=652) Clear SPECIFIC GRAVITY UA (BEAKER) (test mzod=609) 1.006 1.001-1.035 PH UA (BEAKER) (test qdma=874) 6.0 5.0-8.0 PROTEIN UA (BEAKER) (test fzll=022) 300 mg/dL Negative GLUCOSE UA (BEAKER) (test udjr=738) 30 mg/dL Negative KETONES UA (BEAKER) (test wgbw=674) Negative Negative BILIRUBIN UA (BEAKER) (test qpdv=294) Negative Negative BLOOD UA (BEAKER) (test sifp=986) Trace Negative NITRITE UA (BEAKER) (test tmiq=157) Negative Negative LEUKOCYTE ESTERASE UA (BEAKER) (test pfur=822) Negative Negative UROBILINOGEN UA (BEAKER) (test eden=916) 0.2 mg/dL 0.2-1.0 RBC UA (BEAKER) (test crks=616) < /HPF WBC UA (BEAKER) (test hvaz=906) < /HPF BACTERIA (BEAKER) (test hzjz=546) Rare MUCUS (BEAKER) (test vyln=0454) Rare SOURCE(BEAKER) (test ciut=2971) Urine, Voided CBC W/PLT COUNT & AUTO [id number] 10:49:00 Test Item Value Reference Range Comments WHITE BLOOD CELL COUNT (BEAKER) (test enmh=245) 5.6 K/ L 3.5-10.5 RED BLOOD CELL COUNT (BEAKER) (test ibqw=852) 3.10 M/ L 4.63-6.08 HEMOGLOBIN (BEAKER) (test rwje=042) 9.8 GM/DL 13.7-17.5 HEMATOCRIT (BEAKER) (test vedb=693) 29.7 % 40.1-51.0 MEAN CORPUSCULAR VOLUME (BEAKER) (test ijus=947) 95.8 fL 79.0-92.2 MEAN CORPUSCULAR HEMOGLOBIN (BEAKER) (test 31.6 pg 25.7-32.2 hhjq=022) MEAN CORPUSCULAR HEMOGLOBIN CONC (BEAKER) (test 33.0 GM/DL 32.3-36.5 ufca=420) RED CELL DISTRIBUTION WIDTH (BEAKER) (test 14.0 % 11.6-14.4 thap=471) PLATELET COUNT (BEAKER) (test jpgj=170) 171 K/CU MM 150-450 MEAN PLATELET VOLUME (BEAKER) (test mkgv=905) 11.1 fL 9.4-12.4 NUCLEATED RED BLOOD CELLS (BEAKER) (test 0 /100 WBC 0-0 giqq=755) NEUTROPHILS RELATIVE PERCENT (BEAKER) (test 69 % gfvf=667) LYMPHOCYTES RELATIVE PERCENT (BEAKER) (test 16 % ghpk=640) MONOCYTES RELATIVE PERCENT (BEAKER) (test 10 % hskt=669) EOSINOPHILS RELATIVE PERCENT (BEAKER) (test 4 % fszm=938) BASOPHILS RELATIVE PERCENT (BEAKER) (test 1 % zihl=977) NEUTROPHILS ABSOLUTE COUNT (BEAKER) (test 3.88 K/ L 1.78-5.38 bukz=497) LYMPHOCYTES ABSOLUTE COUNT (BEAKER) (test 0.88 K/ L 1.32-3.57 fshs=238) MONOCYTES ABSOLUTE COUNT (BEAKER) (test 0.56 K/ L 0.30-0.82 wzia=320) EOSINOPHILS ABSOLUTE COUNT (BEAKER) (test 0.25 K/ L 0.04-0.54 dbjr=784) BASOPHILS ABSOLUTE COUNT (BEAKER) (test 0.03 K/ L 0.01-0.08 qebn=571) IMMATURE GRANULOCYTES-RELATIVE PERCENT (BEAKER) 0 % 0-1 (test yjpz=1361)
[2018-04-13 09:00] LABS: Absolute Lymphocytes (CBC) 0.8 K/uL (0.7-4.9); Absolute Monocytes 0.6 K/uL (0.1-1.3); Absolute Neutrophil 5.5 K/uL (1.8-8.0); Basophils % 0.6 % (0-1.3); Eosinophils % 0.7 % (0-4.4); Hematocrit 28.3 % (39.6-49.0); Lymphocytes % 11.7 % (15.3-44.8); Monocytes % 8.6 % (3.3-12.3); RBC Red Blood Cell Count 3.01 M/uL (4.33-5.43)
[2018-04-13 09:01] LABS: Protime INR 1.25
[2018-04-13 09:47] LABS: Bilirubin Direct 0.2 mg/dL (0-0.2); Bilirubin Total 0.5 mg/dL (0.2-1.0); Magnesium 2.2 mg/dL (1.8-2.4); Potassium 3.4 mmol/L (3.5-5.1); Protein, Total 7.2 g/dL (6.4-8.2); Troponin (Emerg Dept Use Only) 0.38 ng/mL (0.0-0.045)
--- NOTE | 2018-04-13 09:58 | EDPHYS ---
Physician Documentation [facility] Name: Blaise Quarles Age: 77 yrs Sex: Male : 1940 Arrival Date: 04/13/2018 Time: 08:21 Bed 6 Private MD: ED Physician Ron Viveros HPI: 04/13 09:04 This 77 yrs old Male presents to ER via EMS with complaints of Shortness of jr8 breath. Swelling of Lower Extremity. 09:04 The patient has shortness of breath at rest. Onset: The symptoms/episode began/occurred jr8 gradually, 2 day(s) ago. Duration: The symptoms are continuous. The patient's shortness of breath is aggravated by walking. Associated signs and symptoms: The patient has no apparent associated signs or symptoms. Severity of symptoms: At their worst the symptoms were moderate in the emergency department the symptoms are unchanged. The patient has experienced similar episodes in the past. The patient has not recently seen a physician. Historical: - Allergies: 08:24 Aspirin; tw2 - Home Meds: 08:24 amlodipine 10 mg tab 1 tab once daily [Active]; atorvastatin 10 mg Oral tab 1 tab tw2 nightly [Active]; bumetanide 1 mg Oral tab 2 times per day [Active]; glipizide 10 mg Oral tab 1 tab 2 times per day [Active]; metoprolol tartrate 50 mg Oral tab 1 tab once daily [Active]; tamsulosin 0.4 mg Oral cp24 1 cap once daily [Active]; tramadol 50 mg Oral tab 1 tab TID prn [Active]; - PMHx: 08:24 Anemia; CAD; cardiomegaly; CHF; chronic renal disease; Cirrhosis; Diabetes - IDDM; High tw2 Cholesterol; Hypertension; Myocardial infarction; pleural effusion; pulmonary nodule; pumonary nodule; Visually impared; - PSHx: 08:24 Pacemaker; Triple bypass; tw2 - Immunization history:: Adult Immunizations unknown. - Social history:: Smoking status: . - Ebola Screening: : Patient denies travel to an Ebola-affected area in the 21 days before illness onset. ROS: 09:04 Eyes: Negative for injury, pain, redness, and discharge, ENT: Negative for injury, jr8 pain, and discharge, Neck: Negative for injury, pain, and swelling, Cardiovascular: Negative for chest pain, palpitations, and edema, Back: Negative for injury and pain, MS/Extremity: Negative for injury and deformity, Skin: Negative for injury, rash, and discoloration, Neuro: Negative for headache, weakness, numbness, tingling, and seizure. 09:04 Respiratory: Positive for dyspnea on exertion, orthopnea, shortness of breath. 09:04 Abdomen/GI: Positive for abdominal pain, Negative for nausea, vomiting, and diarrhea, abdominal distension, anorexia, dysphagia, hematemesis, black/tarry stool, rectal pain, rectal bleeding, bowel incontinence, flatulence. Exam: 09:07 Eyes: Pupils equal round and reactive to light, extra-ocular motions intact. Lids and jr8 lashes normal. Conjunctiva and sclera are non-icteric and not injected. Cornea within normal limits. Periorbital areas with no swelling, redness, or edema. ENT: Nares patent. No nasal discharge, no septal abnormalities noted. Tympanic membranes are normal and external auditory canals are clear. Oropharynx with no redness, swelling, or masses, exudates, or evidence of obstruction, uvula midline. Mucous membranes moist. Neck: Trachea midline, no thyromegaly or masses palpated, and no cervical lymphadenopathy. Supple, full range of motion without nuchal rigidity, or vertebral point tenderness. No Meningismus. Cardiovascular: Regular rate and rhythm with a normal S1 and S2. No gallops, murmurs, or rubs. Normal PMI, no JVD. No pulse deficits. Abdomen/GI: Soft, non-tender, with normal bowel sounds. No distension or tympany. No guarding or rebound. No evidence of tenderness throughout. Back: No spinal tenderness. No costovertebral tenderness. Full range of motion. Skin: Warm, dry with normal turgor. Normal color with no rashes, no lesions, and no evidence of cellulitis. MS/ Extremity: Pulses equal, no cyanosis. Neurovascular intact. Full, normal range of motion. Neuro: Awake and alert, GCS 15, oriented to person, place, time, and situation. Cranial nerves II-XII grossly intact. Motor strength 5/5 in all extremities. Sensory grossly intact. Cerebellar exam normal. Normal gait. 09:07 Respiratory: mild respiratory distress is noted, Respirations: tachypnea, Breath sounds: rales, that are moderate, are heard diffusely, decreased breath sounds, that are mild, are located in both bases. Vital Signs: 08:21 BP 180 / 74; Pulse 72; Resp 24; Temp 98.1(O); Pulse Ox 95% on 5 lpm NC; Weight 70.31 kg tw2 (R); 08:47 BP 181 / 73; Pulse 71; Resp 15; Pulse Ox 93% on NC; bp 09:08 BP 188 / 85; Pulse 69; Resp 14; Pulse Ox 95% ; bp 10:00 BP 185 / 81; Pulse 77; Resp 26; Pulse Ox 95% on 5 lpm NC; tw2 10:55 BP 202 / 79; Pulse 74; Resp 23; Pulse Ox 98% ; bp 11:35 BP 189 / 89; Pulse 74; Resp 20; Pulse Ox 97% on Non-rebreather mask; tw2 12:25 BP 172 / 66; Pulse 69; Resp 17; Pulse Ox 100% ; bp 11:35 15L tw2 MDM: 08:23 Patient medically screened. jr8 09:56 Data reviewed: vital signs, nurses notes, lab test result(s), EKG, radiologic studies, jr8 plain films. Data interpreted: Pulse oximetry: on room air is 95 %. Interpretation: normal. Counseling: I had a detailed discussion with the patient and/or guardian regarding: the historical points, exam findings, and any diagnostic results supporting the discharge/admit diagnosis, lab results, radiology results, the need for further work-up and treatment in the hospital. 10:38 ED course: Dr. Jacobson and Pilar called ED. Patient had changed his mind the other day jr8 and now wants dialysis. Will consult both of them and is planed for surgery tomorrow to have permanent catheter placement. Discussed this with family and patient to makes sure this is what he still wants and that he will not refuse treatments like he has been doing. Patient and family understand and wish to start dialysis . 04/13 08:23 Order name: Basic Metabolic Panel; Complete Time: 09:54 jr8 04/13 08:23 Order name: CBC with Diff; Complete Time: 09:04 jr8 04/13 08:23 Order name: LFT's; Complete Time: 09:54 jr8 04/13 08:23 Order name: Magnesium; Complete Time: 09:54 jr8 04/13 08:23 Order name: NT PRO-BNP; Complete Time: 09:54 jr8 04/13 08:23 Order name: PT-INR; Complete Time: 09:04 jr8 04/13 08:23 Order name: Troponin (emerg Dept Use Only); Complete Time: 09:54 jr8 04/13 11:15 Order name: CBC with Automated Diff EDMS 04/13 11:15 Order name: CBC with Automated Diff EDMS 04/13 11:15 Order name: CBC with Automated Diff EDMS 04/13 11:15 Order name: CBC with Automated Diff EDMS 04/13 11:15 Order name: Comprehensive Metabolic Panel EDMS 04/13 11:15 Order name: Comprehensive Metabolic Panel EDMS 04/13 11:15 Order name: Comprehensive Metabolic Panel EDMS 04/13 08:23 Order name: XRAY Chest (1 view); Complete Time: 10:14 jr8 04/13 08:23 Order name: EKG; Complete Time: 08:24 jr8 04/13 08:23 Order name: Cardiac monitoring; Complete Time: 08:30 jr8 04/13 08:23 Order name: EKG - Nurse/Tech; Complete Time: 08:30 jr8 04/13 08:23 Order name: IV Saline Lock; Complete Time: 08:50 jr8 04/13 08:23 Order name: Labs collected and sent; Complete Time: 08:50 jr8 04/13 08:23 Order name: O2 Per Protocol; Complete Time: 08:30 jr8 04/13 10:12 Order name: BIPAP tw2 04/13 11:13 Order name: CONS Physician Consult EDMS 04/13 11:15 Order name: CONS Physician Consult EDMS 04/13 11:15 Order name: NPO EDMS 04/13 11:15 Order name: Echo with Doppler EDMS 04/13 11:15 Order name: Comprehensive Metabolic Panel EDMS 04/13 08:23 Order name: O2 Sat Monitoring; Complete Time: 08:30 jr8 Administered Medications: 08:46 Drug: Lasix 40 mg Route: IVP; Site: left upper arm; bp 09:51 Follow up: Response: No adverse reaction bp 08:46 Not Given (Patient Refused): Aspirin Chewable Tablet 324 mg PO once; 81 mg tablets x 4 bp 08:46 Drug: Nitroglycerin Ointment 2 % 1 inches Route: Transdermal; Site: anterior chest wall;bp Disposition: 04/14 07:27 Co-signature as Attending Physician, Rolando Simental RN I agree with the assessment and yoni plan of care. Disposition: 04/13/18 09:57 Hospitalization ordered by Venu Fernandez for Inpatient Admission. Preliminary diagnosis are Acute combined systolic (congestive) and diastolic (congestive) heart failure, Chronic kidney disease, stage 5. - Bed requested for Telemetry/MedSurg (Inpatient). - Status is Inpatient Admission. bp - Condition is Fair. - Problem is new. - Symptoms have improved. UTI on Admission? No Signatures: Dispatcher [employer] EDMS Mariah Melendez RN RN dw Ron Viveros MD MD cha Roszak, Josh, PA PA jr8 Sonia Gardner RN RN tw2 Rolando Simental RN RN bp Corrections: (The following items were deleted from the chart) 04/13 11:41 09:57 Hospitalization Ordered by Venu Fernandez MD for Inpatient Admission. Preliminary dw diagnosis is Acute combined systolic (congestive) and diastolic (congestive) heart failure; Chronic kidney disease, stage 5. Bed requested for Telemetry/MedSurg (Inpatient). Status is Inpatient Admission. Condition is Fair. Problem is new. Symptoms have improved. UTI on Admission? No. jr8 12:31 11:41 04/13/2018 09:57 Hospitalization Ordered by Venu Fernandez MD for Inpatient bp Admission. Preliminary diagnosis is Acute combined systolic (congestive) and diastolic (congestive) heart failure; Chronic kidney disease, stage 5. Bed requested for Telemetry/MedSurg (Inpatient). Status is Inpatient Admission. Condition is Fair. Problem is new. Symptoms have improved. UTI on Admission? No. dw
--- NOTE | 2018-04-13 09:58 | ER ---
Nurse's Notes [facility] Name: Blaise Quarles Age: 77 yrs Sex: Male : 1940 Arrival Date: 04/13/2018 Time: 08:21 Bed 6 Private MD: Diagnosis: Acute combined systolic (congestive) and diastolic (congestive) heart failure;Chronic kidney disease, stage 5 Presentation: 04/13 08:23 Presenting complaint: Patient states: LEFT CP, BACK PAIN, ABDOMINAL PAIN. Transition of bp care: patient was not received from another setting of care. Onset of symptoms was April 12, 2018. Risk Assessment: Do you want to hurt yourself or someone else? Patient reports no desire to harm self or others. Initial Sepsis Screen: Does the patient meet any 2 criteria? RR > 20 per min. No. Patient's initial sepsis screen is negative. Does the patient have a suspected source of infection? No. Patient's initial sepsis screen is negative. Care prior to arrival: None. 08:23 Method Of Arrival: EMS: [facility] bp 08:23 Acuity: SARATH 2 bp Triage Assessment: 08:23 General: Appears distressed, uncomfortable, Behavior is cooperative, appropriate for bp age, anxious. Pain: Complains of pain in back, chest and abdomen. EENT: Nares are clear. Neuro: Level of Consciousness is awake, alert, obeys commands, Oriented to person, place, time, situation, Appropriate for age. Cardiovascular: Rhythm is sinus rhythm. Respiratory: Reports shortness of breath at rest Airway is patent Respiratory effort is labored, Respiratory pattern is regular, symmetrical. GI: No signs and/or symptoms were reported involving the gastrointestinal system. : No signs and/or symptoms were reported regarding the genitourinary system. Derm: No deficits noted. Musculoskeletal: Circulation, motion, and sensation intact. Range of motion: intact in all extremities. Historical: - Allergies: 08:24 Aspirin; tw2 - Home Meds: 08:24 amlodipine 10 mg tab 1 tab once daily [Active]; atorvastatin 10 mg Oral tab 1 tab tw2 nightly [Active]; bumetanide 1 mg Oral tab 2 times per day [Active]; glipizide 10 mg Oral tab 1 tab 2 times per day [Active]; metoprolol tartrate 50 mg Oral tab 1 tab once daily [Active]; tamsulosin 0.4 mg Oral cp24 1 cap once daily [Active]; tramadol 50 mg Oral tab 1 tab TID prn [Active]; - PMHx: 08:24 Anemia; CAD; cardiomegaly; CHF; chronic renal disease; Cirrhosis; Diabetes - IDDM; High tw2 Cholesterol; Hypertension; Myocardial infarction; pleural effusion; pulmonary nodule; pumonary nodule; Visually impared; - PSHx: 08:24 Pacemaker; Triple bypass; tw2 - Immunization history:: Adult Immunizations unknown. - Social history:: Smoking status: . - Ebola Screening: : Patient denies travel to an Ebola-affected area in the 21 days before illness onset. Screenin:25 Abuse screen: Denies threats or abuse. Nutritional screening: No deficits noted. tw2 Tuberculosis screening: No symptoms or risk factors identified. Fall Risk None identified. Assessment: 08:29 General: SEE TRIAGE NOTE. bp 09:00 Reassessment: ALL CURRENT ORDERS COMPLETED, RESULTS PENDING FOR DISPO. bp 09:00 GI: Bowel sounds present X 4 quads. Abd is soft X 4 quads Abdomen is tender to bp palpation X 4 quads. 10:00 Reassessment: ADMIT IN PROCESS, ALL CURRENT ORDERS COMPLETED. bp 10:20 Reassessment: RT AT B/S FOR BIPAP. bp 10:42 Reassessment: PT REFUSING BIPAP, PROVIDER AND ADMIT MD AWARE. bp 10:46 Reassessment: ADMIT MD AT B/S. bp 12:22 Reassessment: PT JUDI WITH PCT TO OR. bp Vital Signs: 08:21 BP 180 / 74; Pulse 72; Resp 24; Temp 98.1(O); Pulse Ox 95% on 5 lpm NC; Weight 70.31 kg tw2 (R); 08:47 BP 181 / 73; Pulse 71; Resp 15; Pulse Ox 93% on NC; bp 09:08 BP 188 / 85; Pulse 69; Resp 14; Pulse Ox 95% ; bp 10:00 BP 185 / 81; Pulse 77; Resp 26; Pulse Ox 95% on 5 lpm NC; tw2 10:55 BP 202 / 79; Pulse 74; Resp 23; Pulse Ox 98% ; bp 11:35 BP 189 / 89; Pulse 74; Resp 20; Pulse Ox 97% on Non-rebreather mask; tw2 12:25 BP 172 / 66; Pulse 69; Resp 17; Pulse Ox 100% ; bp 11:35 15L tw2 ED Course: 08:21 Patient arrived in ED. tw2 08:22 Rolando Simental, RN is Primary Nurse. bp 08:23 Hayden Sawyer PA is PHCP. jr8 08:23 Ron Viveros MD is Attending Physician. jr8 08:23 EKG completed in triage. Results shown to MD. bp 08:25 Triage completed. bp 08:25 Arm band placed on. tw2 08:25 Placed in gown. Bed in low position. Side rails up X2. quality assurance monitor body on. Pulse ox on. tw2 NIBP on. 08:29 Oxygen administration via nasal cannula \T\ 5L/min Response to oxygen therapy: symptoms bp improved. 08:40 Inserted saline lock: 20 gauge in left upper arm, using aseptic technique. Blood bp collected. 08:56 XRAY Chest (1 view) In Process Unspecified. EDMS 09:57 Venu Fernandez MD is Hospitalizing Provider. jr8 11:48 No provider procedures requiring assistance completed. Patient admitted, IV remains in bp place. Administered Medications: 08:46 Drug: Lasix 40 mg Route: IVP; Site: left upper arm; bp 09:51 Follow up: Response: No adverse reaction bp 08:46 Not Given (Patient Refused): Aspirin Chewable Tablet 324 mg PO once; 81 mg tablets x 4 bp 08:46 Drug: Nitroglycerin Ointment 2 % 1 inches Route: Transdermal; Site: anterior chest wall;bp Outcome: 09:57 Decision to Hospitalize by Provider. jr8 11:49 Condition: stable bp 11:49 Instructed on the need for admit. 12:21 Admitted to OR accompanied by tech, family with patient, via stretcher, with chart, bp Report called to YEISON BORJA 12:31 Patient left the ED. bp Signatures: Dispatcher [employer] EDMS Hayden Sawyer PA PA jr8 Sonia Gardner RN RN tw2 Rolando Simental, RN RN bp Corrections: (The following items were deleted from the chart) 10:43 10:42 Reassessment: PT REFUSING BIPAP bp bp
--- NOTE | 2018-04-13 10:02 | RAD REPORT ---
EXAM DESCRIPTION: Eliu Single View04/13/2018 8:58 am CLINICAL HISTORY: Shortness of breath COMPARISON: 04/08/2018 FINDINGS: Worsening in bilateral pulmonary opacities has occurred. The heart remains enlarged. Pleur al effusions are unchanged. Post surgical changes involve the chest IMPRESSION: Mild worsening in CHF
[2018-04-13] MEDS ORDERED: ONDANSETRON 4 MG/2 ML VIAL IV PRN (11:03)
[2018-04-13] MEDS ORDERED: LIDOCAINE 1% MPF 30 ML VIAL ONE (12:53)
[2018-04-13] MEDS ORDERED: NA CHLORIDE 0.9% 100 ML IV ONE (12:53)
[2018-04-13] MEDS ORDERED: NS 0.9% VIAL 10 ML ONE (12:55)
--- NOTE | 2018-04-13 13:00 | EKG ---
Test Date: 2018-04-13 Test Time: 08:24:43 Worm Sorter: RON MEASUREMENT RESULTS: Intervals: Rate: 75 MA: 174 QRSD: 102 QT: 412 QTc: 460 Mckenna: P: 36 MA: 174 QRS: -25 T: 146 INTERPRETIVE STATEMENTS: Sinus rhythm with occasional premature ventricular complexes Possible Left atrial enlargement Septal infarct, age undetermined Inferior infarct, age undetermined T wave abnormality, consider lateral ischemia Abnormal ECG Compared to ECG 04/08/2018 19:39:44 Ventricular premature complex(es) now present Sinus bradycardia no longer present Myocardial infarct finding still present T-wave abnormality still present Possible ischemia still present Electronically Signed On 04-13-18 12:58:00 CDT by Brandon Pérez
[2018-04-13] MEDS ORDERED: NA CHLORIDE 0.9% 500 ML ONE (13:13)
[2018-04-13] MEDS ORDERED: CEFAZOLIN/SWI 1gm 1 GM/10 ML SYR ONE (13:37)
[2018-04-13] MEDS ORDERED: PROPOFOL 200 MG/20 ML VIAL IV ONE (13:38)
[2018-04-13] MEDS ORDERED: LIDOCAINE 1% MPF 2 ML AMPULE ONE (13:39)
[2018-04-13] MEDS: HEPARIN 5000 UNIT/ML 1 ML VIAL ONE ×2 (14:07→14:08)
--- NOTE | 2018-04-13 14:07 | P.OP ---
Preoperative diagnosis: ARF Postoperative diagnosis: same Primary procedure: RIJ Tesio Catheter Secondary procedure: Fluoroscopy Anesthesia: MAC Estimated blood loss: min Specimen: none Findings: as above Complications: None Transferred to: Recovery Room Condition: Good
--- NOTE | 2018-04-13 14:45 | RAD REPORT ---
EXAM DESCRIPTION: RAD - Chest Single View - 04/13/2018 2:39 pm CLINICAL HISTORY: S/P Tesio Chest pain. COMPARISON: Chest Single View dated 04/13/2018; Chest Single View dated 04/08/2018; Chest Single View dated 03/15/2018; Chest Single View dated 02/02/2018 FINDINGS: Portable technique limits examination quality. Right-sided venous catheter is in place with its tip in the SVC. No pneumothorax present. Moderate bi lateral pulmonary opacities are again noted. Cardiomegaly with changes of a prior CABG are seen. IMPRESSION: No postprocedure pneumothorax.
[2018-04-13] MEDS ORDERED: D50W 25 GM/50 ML SYRINGE IV ONE (14:46)
--- NOTE | 2018-04-13 14:58 | RAD REPORT ---
EXAM DESCRIPTION: RAD - Fluoroscopy <1 Hour - 04/13/2018 2:52 pm CLINICAL HISTORY: Venous catheter insertion. TESSIO COMPARISON: Thoracentesis w/ US Guide dated 07/16/2017 FINDINGS: Fluoroscopic imaging is submitted from placement of a venous catheter. Details of the pro cedure not available. Fluoroscopy time: 0.2 minutes
--- NOTE | 2018-04-13 15:29 | OP ---
Date of Procedure: 04/13/2018 Surgeon: Noe Quezada MD Preoperative Diagnosis: Acute renal failure. Postoperative Diagnosis: Acute renal failure. Procedures: Placement of right internal jugular Tesio catheter and interpretation of intraoperative fluoroscopy. Estimated Blood Loss: Minimal. Specimen: None. Findings: Normal anatomy. Anesthesia: MAC. Complications: None. Disposition: The patient tolerated the procedure in stable condition and taken to Recovery in good g eneral condition. Procedure In Detail: The patient was brought to the OR and placed in supine position. MAC anesthesi a was begun. The patient was prepped and draped in sterile fashion. Lidocaine 1% infiltrated locall y. An 18-gauge needle was used to access the right IJ vein. Guidewire passed, the position confirme d with fluoroscopy. A counterincision was made on the right anterior chest. Tunneling device was us ed to tunnel the Tesio catheter between the 2 wounds. Seldinger technique used. Tip of the catheter placed in the SVC under fluoroscopy. Catheter was flushed with heparin and packed with heparin with good blood flow. Then 3-0 chromic used to approximate the subcutaneous tissue and close skin and 3- 0 nylon used to secure the tube to the chest wall. Sterile dressing was applied. The patient was aw akened and taken to Recovery in good general condition, and a chest x-ray has been ordered. RICH/EB Voice ID: [id number] Report ID: [id number]
[2018-04-13] MEDS: ACETAMINOPHEN 500 MG TAB PO PRN (16:07)
[2018-04-13] MEDS ORDERED: HYDRALAZINE HCL 20 MG/ML VIAL IV ONE (16:20)
[2018-04-13] MEDS ORDERED: FUROSEMIDE 40 MG/4 ML VIAL IV SCH (17:00)
[2018-04-13 18:33] LABS: Blood Gas Oxyhemoglobin 94.2 % (94-97); Blood O2 Saturation 96.2 % (92-98.5)
[2018-04-13 18:34] LABS: Arterial Blood Carboxyhemoglob 1.7 % (0-1.5)
--- NOTE | 2018-04-13 19:05 | PREOPCON ---
Date of Consultation: 04/13/2018 Reason: The patient needs emergent dialysis. History Of Present Illness: The patient is a 77-year-old gentleman with chronic renal failure with a cute exacerbation. Was going to be admitted yesterday, and I was going to put a dialysis catheter to day. However, the patient decided not to come in yesterday and today presents to the emergency room with shortness of breath, swelling of the lower extremity, consistent with CHF, and I was contacted a nd asked to place a Tesio catheter for urgent dialysis. He is awake and alert, breathing better with oxygen now, sitting up. No complaints. No fever or chills. Review of Systems: Otherwise unremarkable. Medical History: Significant for anemia, cardiomegaly, CHF, coronary artery disease, chronic renal d isease with acute renal failure, cirrhosis, diabetes type 2, high cholesterol, hypertension, [place], pleu ral effusion, pulmonary nodule, visually impaired. Past Surgical History: CABG x3. Pacemaker. Allergies: ASPIRIN. Social History: The patient currently does not smoke or drink. Family History: Noncontributory. Physical Examination: Vital Signs: Stable. He is afebrile. He is awake, alert, and oriented. Head and Neck: Cranial nerves 2 through 12 are grossly within limits. No neck masses. No JVD. Thr oat clear. Neck is supple. Chest: Clear. Heart: S1, S2. Abdomen: Soft. Extremities: Neurovascularly intact. Neuro: Nonfocal. Laboratory Data: White count is 7. H and H 9.7 and 28.3, platelets are 212. INR is 1.25. Chemistr y reveals BUN to be 62, creatinine to be 6.3, potassium is 3.4. Assessment: Acute renal failure in a patient with multiple medical problems. Recommendations: We will go ahead and place a Tesio catheter. The patient understands the risks, be nefits, and alternatives and agrees to procedure. /MODL Voice ID: [id number] Report ID: [id number]
[2018-04-13] MEDS: METOPROLOL TAR 25 MG TAB PO SCH (20:52)
[2018-04-13] MEDS: ATORVASTATIN 10 MG TAB PO SCH (20:53)
[2018-04-13] MEDS ORDERED: MANNITOL 25% 12.5 GM/50 ML VIAL IV PRN (21:26)
[2018-04-13] MEDS ORDERED: NA CHLORIDE 0.9% 1,000 ML IV PRN (21:26)
--- NOTE | 2018-04-13 21:40 | P.CNS ---
Date of Consult: 04/13/18 Reason for Consult: ESRD Requesting Physician: Venu Fernandez Chief Complaint: Dyspnea History of Present Illness: 77 yo HM CKD, HTN presented to the ER with moderate to severe, progressive, dyspnea in the setting of CHF and ESRD with associated edema and weakness. No alleviating factors. Refused HD for several months but has now reconsidered. Developed ALLYSON/ CKD leading to ESRD after a course of NSAIDs. 09:04 This 77 yrs old Male presents to ER via EMS with complaints of Shortness of jr8 breath. Swelling of Lower Extremity. 09:04 The patient has shortness of breath at rest. Onset: The symptoms/episode began/occurred jr8 gradually, 2 day(s) ago. Duration: The symptoms are continuous. The patient's shortness of breath is aggravated by walking. Associated signs and symptoms: The patient has no apparent associated signs or symptoms. Severity of symptoms: At their worst the symptoms were moderate in the emergency department the symptoms are unchanged. The patient has experienced similar episodes in the past. The patient has not recently seen a physician. Allergies aspirin Allergy (Verified 01/11/18 15:42) Nausea/Vomiting No Known Allergies Allergy (Uncoded 01/18/18 10:03) Unknown Home medications list reviewed: Yes Home Medications: Atorvastatin Calcium [Lipitor*] 10 mg PO BEDTIME 12/15/17 Glipizide [Glipizide ER] 10 mg PO BIDWM 12/15/17 Metoprolol Succinate [Toprol Xl*] 50 mg PO DAILY 12/15/17 Amlodipine [Norvasc*] 10 mg PO DAILY 03/15/18 Bumetanide 1 mg PO BID 03/15/18 traMADol HCL [Ultram*] 50 mg PO TID PRN #15 tab 03/16/18 - Past Medical/Surgical History Diabetic: Yes -: COPD -: CHF -: ANEMIA -: CAD -: CARDIOMEGALY -: CRD -: CIRRHOSIS -: IDDM -: HYPERLIPIDEMIA -: NE -: HTN -: PE -: Repair of left finger fracture -: CABG X3 -: PACEMAKER -: COPD Psychosocial/ Personal History: He is 56 years, has 13 children, he does not work. - Family History Father Medical History: GI disease Notes: none per pt - Social History Smoking Status: Unknown if ever smoked Alcohol use: No CD- Drugs: No Caffeine use: Yes Place of Residence: Home Review of Systems 10-point ROS is otherwise unremarkable General: Weakness, Malaise Respiratory: SOB with Excertion Cardiovascular: Edema Neurological: Weakness Physical Examination Temp Pulse Resp BP Pulse Ox 98.3 F 86 19 186/79 H 100 04/13/18 16:00 04/13/18 20:52 04/13/18 16:26 04/13/18 20:52 04/13/18 16:26 General: In no apparent distress, Oriented x3, Cooperative HEENT: Mucous membr. moist/pink Neck: Supple, JVD distended Respiratory: Diminished Cardiovascular: Regular rate/rhythm, Edema Gastrointestinal: Soft and benign, Non-distended Musculoskeletal: No clubbing, No contractures Integumentary: No rashes, No cyanosis Neurological: Normal speech Laboratory Data (last 24 hrs) 04/13/18 08:40: PT 14.8 H, INR 1.25 04/13/18 08:40: WBC 7.0 D, Hgb 9.7 L, Hct 28.3 L, Plt Count 212 04/13/18 08:40: Sodium 138, Potassium 3.4 L, BUN 62 H, Creatinine 6.30 H*, Glucose 83, Magnesium 2.2, Total Bilirubin 0.5, AST 20, ALT 17, Alkaline Phosphatase 100 Imagings Data: EXAM DESCRIPTION: RADChest Single View04/13/2018 8:58 am CLINICAL HISTORY: Shortness of breath COMPARISON: 04/08/2018 FINDINGS: Worsening in bilateral pulmonary opacities has occurred. The heart remains enlarged. Pleural effusions are unchanged. Post surgical changes involve the chest IMPRESSION: Mild worsening in CHF Conclusions/Impression: A/ ESRD on HD. Hypokalemia. HTN with CKD. DM II with CKD. Anemia in CKD. A/C Diastolic CHF. JUN/ Secondary HyperPTH. P/ Continue current POC and Medications. Dr. Quezada to place a tunneled catheter today. Arrange for acute HD. Arrange dialysis placement. Low sodium diet. No NSAIDs. AM labs. Daily weight. Thank you kindly for the consultation.
[2018-04-13] MEDS ORDERED: ALBUMIN HUMAN 25% 50 ML IV SCH (22:00)
[2018-04-13 22:09] LABS: Urine Appearance CLOUDY; Urine Bilirubin NEGATIVE (NEG); Urine Blood 2+ (NEG); Urine Color YELLOW; Urine Glucose 1+ (NEG); Urine Protein 3+ (NEG); Urine Urobilinogen 0.2 mg/dL (0.2-1.0); Urine pH 6.5 (5.0-7.0)
[2018-04-13 23:06] LABS: Urine Bacteria 20-50 /HPF (NONE SEEN); Urine Culture Reflex Order REFLEXED
--- NOTE | 2018-04-14 02:00 | HP ---
Date of Admission: 04/13/2018 Consultants: Dr. Jacobson with Nephrology, and Dr. Quezada with General Surgery. Code Status: Full. Chief Complaint: Shortness of breath. History Of Present Illness: The patient is a 77-year-old male who has had multiple recurrent admissi ons for the same issue of shortness of breath, chronic kidney disease, and heart failure, who is nonc ompliant, refuses treatment, asks for pain medications and then leaves AMA, who was most recently in the hospital on 04/09/2018, discharged on 04/11/2018 for similar issues, refusing dialysis. The [facility] ent then contacted Dr. Jacobson, his motor vehicle emissions inspector to set up hemodialysis, and Dr. Jacobson had contacte d Dr. Quezada for catheter placement; however, again the patient changed his mind. The patient's famil y called EMS the night prior to admission due to worsening symptoms, however, the patient refused to come into the hospital. However, this morning, on the day of admission, the patient came in due to w orsening condition. He continues to have shortness of breath which has been progressively worsening. Again, the patient is noncompliant with his medications, only asking for pain. However, at this vi sit, he is demanding hemodialysis immediately, which he had been refusing previously. Family is at t he bedside. I explained to the patient that he will need to be evaluated by the surgeon. He will ne ed a catheter placement, which involves risks of bleeding, infection, perforation, and after the plac ement of the catheter by the surgeon, he will be initiated on dialysis by the motor vehicle emissions inspector. He voice d understanding and wishes to proceed. The patient had to be placed on BiPAP in the ER due to his sh ortness of breath. His blood pressure was elevated. He was tachypneic, in respiratory distress. [facility] workup revealed a creatinine of 6.3. His troponin was 0.38, which has been around the same with [facility] previous visits due to his congestive heart failure and chronic kidney disease. He denies any ches t pain. He was slightly hypoglycemic at a glucose level of 49, which improved to 161 after treatment . The patient's chest x-ray showed worsening CHF. His BNP was 91,000. The patient was then referre d for admission. Past Medical History: Stage 5 chronic kidney disease, hypertension, coronary artery disease, diabete s mellitus type 2, history of pleural effusions, anemia of chronic disease, CO, pulmonary nodule, con gestive heart failure. Past Surgical History: Repair of left finger after fracture, three-vessel CABG. Allergies: TO ASPIRIN, CAUSES NAUSEA AND VOMITING. Medications: List reviewed. Family History: Father had GI disease. Social History: The patient lives at home. Requires assistance with his activities of daily living. Former smoker. No alcohol use or illicit drug use. He has good social support. Review of Systems: An 11-point system reviewed, negative except as per HPI. Physical Examination: Vital Signs: Temperature 98.1, heart rate 72, blood pressure 180/74, respirations 24, O2 95% on 5 L. General: Awake, alert, oriented x3, in some moderate respiratory distress. Elderly male, ill appeari ng. HEENT: Normocephalic, atraumatic. PERRLA. EOMI. Moist mucous membranes. Oropharynx is clear. Poo r dentition. Conjunctivae anicteric. Neck: Supple. Trachea midline. The patient does have some JVD distention. CV: S1, S2. No murmurs. Peripheral pulses present. Respiratory: Significantly diminished breath sounds bilaterally. No wheezing or stridor. The patie nt is using accessory muscles. The patient is tachypneic. Gastrointestinal: Abdomen is soft, nontender, nondistended. Positive bowel sounds. No guarding or rigidity. Extremities: No clubbing, cyanosis. The patient has 3+ peripheral edema bilaterally. No calf tende rness. Neuro: Cranial nerves 2 through 12 intact grossly. No focal neurological deficit. Speech is normal . Strength is 5/5 bilateral upper and lower extremities. Skin: No rashes. Psych: Deferred. Laboratory Data: Sodium 138, potassium 3.4, chloride 103, CO2 25, BUN 62, creatinine 6.3, glucose 83 , calcium 8.3, magnesium 2.2. Troponin 0.38. BNP 91,112. Albumin 3. INR is 1.25. WBC 7, H and H 9.7 and 28.3, platelets 212, neutrophils 78%. Chest x-ray shows worsening CHF compared to previous. Assessment: A 77-year-old male with: 1.Acute respiratory distress. The patient is on BiPAP secondary to volume overload. 2.Volume overload secondary to chronic kidney disease. 3.Chronic kidney disease stage 5. The patient now wanting dialysis. Case discussed with Dr. Quezada and Dr. Jacobson. Tunneled catheter placement to be scheduled and hemodialysis to be initiated afterw ards. 4.Zvvtz-py-vnqfwgy congestive heart failure. Ejection fraction from echo in July is 46%. 5.Hypertensive heart disease. 6.Coronary artery disease, [place] artery and [place] heart, status post coronary artery bypass graft. 7.Elevated troponin level secondary to congestive heart failure and chronic kidney disease. 8.Diabetes mellitus type 2, non-insulin. Currently with hypoglycemia. We will continue to monitor BBG. Hold hypoglycemics. 9.Anemia of chronic disease secondary to chronic kidney disease. We will monitor H and H and transf use as needed. 10.Hyperlipidemia. Continue statin. 11.Essential hypertension. Resume home medications as appropriate. 12.Noncompliance. 13.Gastrointestinal and deep venous thrombosis prophylaxis with PPI and SCDs. No chemical anticoagu lation due to anticipated procedure. Plan: Admit the patient to Med-Surg, place as inpatient. The patient has been refusing hospice and up until today was refusing dialysis; however, now wants to initiate dialysis. He understands that h e will need to go to hemodialysis sessions at least 3 times a week, which can last 3-4 hours per week. Compliance was again encouraged. The patient voices understanding. Deangelo dominique, his prognosis remains guarded. /MODL Voice ID: [id number]
[2018-04-14 06:15] LABS: Absolute Lymphocytes (CBC) 0.5 K/uL (0.7-4.9); Absolute Monocytes 0.5 K/uL (0.1-1.3); Absolute Neutrophil 4.9 K/uL (1.8-8.0); Basophils % 0.6 % (0-1.3); Eosinophils % 0.3 % (0-4.4); Hematocrit 27.1 % (39.6-49.0); MCH 32.8 pg (27.0-35.0); MCV 94.4 fL (80-100); MPV 8.1 fL (7.6-11.3); Monocytes % 8.4 % (3.3-12.3); RBC Red Blood Cell Count 2.87 M/uL (4.33-5.43)
[2018-04-14 06:36] LABS: Albumin 2.8 g/dL (3.4-5.0); Bilirubin Total 0.5 mg/dL (0.2-1.0); Potassium 3.6 mmol/L (3.5-5.1); Protein, Total 6.6 g/dL (6.4-8.2)
[2018-04-14] MEDS: METOPROLOL TAR 25 MG TAB PO SCH ×2 (06:39→18:00)
--- NOTE | 2018-04-14 06:53 | EKG ---
Test Date: 2018-04-13 Test Time: 13:10:46 Sales Assistant Displays: CHEY MEASUREMENT RESULTS: Intervals: Rate: 71 OK: 166 QRSD: 110 QT: 414 QTc: 449 [place]: P: 69 OK: 166 QRS: 39 T: 223 INTERPRETIVE STATEMENTS: Normal sinus rhythm Possible Left atrial enlargement Septal infarct, age undetermined T wave abnormality, consider inferolateral ischemia Abnormal ECG Compared to ECG 04/13/2018 08:24:43 Ventricular premature complex(es) no longer present Myocardial infarct finding still present T-wave abnormality still present Possible ischemia still present Electronically Signed On 04-14-18 06:50:51 CDT by Brandon Pérez
[2018-04-14] MEDS ORDERED: HYDROCODONE/APAP 5/325 MG TAB PO ONE (08:24)
[2018-04-14] MEDS ORDERED: HYDROCODONE/APAP 5/325 MG TAB PO PRN (08:24)
[2018-04-14] MEDS: FUROSEMIDE 40 MG/4 ML VIAL IV SCH ×2 (08:42→17:00)
--- NOTE | 2018-04-14 12:14 | ECHO ---
HEIGHT: 5 ft 4 in WEIGHT: 140 lb 0 oz DATE OF STUDY: 04/14/[address]: Venu Fernandez MD 2-DIMENSIONAL: YES M.MODE: YES DOPPLER: YES COLOR FLOW: YES TDS: NO PORTABLE: NO DEFINITY: NO BUBBLE STUDY: NO DIAGNOSIS: CONGESTIVE HEART FAILURE CARDIAC HISTORY: CATHERIZATION: NO SURGERY: NO PROSTHETIC VALVE: NO PACEMAKER: NO MEASUREMENTS (cm) DIASTOLIC (NORMALS) SYSTOLIC (NORMALS) IVSd 1.3 (0.6-1.2) LA Diam 4.1 (1.9-4.0) LVEF 54% LVIDd 5.1 (3.5-5.7) LVIDs 3.6 (2.0-3.5) %FS 28% LVPWd 1.3 (0.6-1.2) Ao Diam 2.6 (2.0-3.7) 2 DIMENSIONAL ASSESSMENT: RIGHT ATRIUM: NORMAL LEFT ATRIUM: DILATED RIGHT VENTRICLE: NORMAL LEFT VENTRICLE: LEFT VENTRICULAR HYPERTROPHY TRICUSPID VALVE: NORMAL MITRAL VALVE: NORMAL PULMONIC VALVE: NORMAL AORTIC VALVE: SCLEROSIS PERICARDIAL EFFUSION: NONE AORTIC ROOT: NORMAL LEFT VENTRICULAR WALL MOTION: PARADOXICAL SEPTAL MOTION. SUGGESTS RIGHT VENTRICULAR PRESSURE OVERLOAD. DOPPLER/COLOR FLOW: MILD AORTIC, MITRAL, TRICUSPID AND PULMONIC REGURGITATION. ESTIMATED RIGHT VENTRICULAR SYSTOLIC PRESSURE 30mmHg. COMMENTS: NORMAL LEFT VENTRICULAR EJECTION FRACTION WITH PARADOXICAL SEPTUM MOTION. MILD AORTIC, MITRAL, TRICUSPID AND PULMONIC REGURGITATION. LEFT VENTRICULAR HYPERTROPHY. DILATED LEFT ATRIUM. AORTIC SCLEROSIS WITH NO AORTIC STENOSIS. TECHNOLOGIST: MARIBEL AGUIRRE
[2018-04-14] MEDS: HYDRALAZINE HCL 20 MG/ML VIAL IV PRN (14:10)
--- NOTE | 2018-04-14 15:21 | PN ---
Date of Progress Note: 04/14/2018 History: The patient seen and examined. Chart reviewed and case discussed with RN and Dr. Jacobson. The patient was supposed to be dialyzed today; however , has been refusing all morning, finally agreed; however, then again wanted to have his family present at the dialysis area along with wanting to stand up and have some pillows around him. However, he does not understand this is a fall risk and therefore has now refused dialysis after requesting dialysis previously. Review of Systems: Negative except as above. Medications: List reviewed. Physical Examination: Vital Signs: Temperature 97.8, heart rate 71, blood pressure 192/88, respirations 24, O2 100% on non-rebreather. General: Awake, alert, oriented, in no acute respiratory distress. Elderly male. CV: S1, S2. No murmurs. Peripheral pulses present. Respiratory: Diminished breath sounds. Some rhonchi heard. Gastrointestinal: Abdomen is soft, nontender, nondistended. Positive bowel sounds. Extremities: No clubbing, cyanosis. The patient does have peripheral edema bilaterally. Neurologic: Nonfocal. Laboratory Data: Sodium 139, potassium 3.6, chloride 105, CO2 24, BUN 63, creatinine 6.1, glucose 116, calcium 8.2. WBC 6, H and H 9.4 and 27.1, platelets 173, neutrophils 81%. Urine culture is pending. Echocardiogram shows EF 54%, left ventricular hypertrophy, paradoxical septal motion, tricuspid pulmonic regurgitation, dilated left atrium, aortic sclerosis. Assessment: A 77-year-old male with: 1. Acute respiratory distress. The patient is refusing BiPAP. He was threatening and violent with the respiratory therapist, going off the mask and pulling at the respiratory therapist arm. Currently on non-rebreather, saturating well secondary to volume overload and chronic kidney disease. 2. Chronic kidney disease stage 5. The patient initially agreed to dialysis, now refusing. Dr. Jacobson is on the case. We will travel counselor again. 3. Volume overload secondary to chronic kidney disease. 4. Acute on chronic congestive heart failure, EF is 54%. On an echocardiogram the patient does have some paradoxical septal motion. 5. Hypertensive heart disease. 6. Coronary artery disease, [place] artery, [place] heart, status post coronary artery bypass graft. 7. Elevated troponin level secondary to congestive heart failure and chronic kidney disease. 8. Diabetes mellitus type 2 non-insulin requiring, currently hyperglycemic. Did have hypoglycemic episode initially in the ER. We will continue to monitor BBG. Hold oral hypoglycemics in the setting of chronic kidney disease. 9. Anemia of chronic disease secondary to chronic kidney dysfunction. We will monitor H and H and transfuse as needed. 10. Hyperlipidemia. We will continue statin. 11. Uncontrolled hypertension due to volume overload. We will continue with hydralazine p.r.n. 12. Noncompliance. 13. Personality disorder, not otherwise specified. 14. Gastrointestinal and deep venous thrombosis prophylaxis with PPI and SCDs. We will have chemical anticoagulation for 24 hours post procedure. The patient had tunnel catheter placement yesterday. 15. UTI Plan: The patient remains full code. He is noncompliant with treatment, not wanting dialysis after requesting dialysis yesterday and after surgeon has put in tunneled catheter. Family is also does not want hospice. Requesting pain medications and anxiety medications. However, due to his respiratory distress, unable to give IV pain medication. Functionally, there is not much more we can offer the patient. He has refused dialysis even despite getting a tunneled catheter. Overall remains a very poor prognosis. /MODL Voice ID: [id number] Report ID: [id number] KULWINDER
--- NOTE | 2018-04-14 20:08 | P.PN ---
Date of Service: 04/14/18 Vital Signs Temp Pulse Resp BP Pulse Ox 99.2 F 79 24 H 184/78 H 99 04/14/18 16:00 04/14/18 16:00 04/14/18 16:00 04/14/18 16:00 04/14/18 16:00 Medications Acetaminophen (Tylenol -Extra Strength) 500 mg PO Q4HP PRN PRN Reason: [id number] Stop: 05/13/18 11:04 Last Admin: 04/13/18 16:07 Dose: 500 mg Hydrocodone Bitart/Acetaminophen ([place] 5/325) 1 tab PO Q4H PRN PRN Reason: PAIN Stop: 05/14/18 08:25 Atorvastatin Calcium (Lipitor) 10 mg PO BEDTIME HIEU Stop: 05/13/18 21:01 Last Admin: 04/13/18 20:53 Dose: 10 mg Epoetin Keegan (Procrit) 10,000 unit IV EVERY HD HIEU Stop: 05/13/18 21:31 Furosemide (Lasix) 80 mg IV BIDL HIEU Stop: 05/14/18 09:01 Last Admin: 04/14/18 08:42 Dose: 80 mg Heparin Sodium (Porcine) (Heparin 1,000 Units/Ml) 6,000 unit IJ EVERY HD PRN PRN Reason: FLUSH AFTER EACH USE Stop: 05/13/18 21:27 Hydralazine HCl (Apresoline) 10 mg IV Q6HP PRN PRN Reason: HIGH BP Stop: 05/13/18 16:21 Last Admin: 04/14/18 14:10 Dose: 10 mg Albumin Human (Albumin 25%) 50 mls @ 100 mls/hr IV EVERY HD HIEU Stop: 05/13/18 22:01 Mannitol (Mannitol 12.5 Gm/50 Ml Vial) 12.5 gm IV EVERY HD PRN PRN Reason: BP support at hemodialysis Stop: 05/13/18 21:27 Metoprolol Tartrate (Lopressor) 25 mg PO BID 6AM 6PM HIEU Stop: 05/13/18 18:01 Last Admin: 04/14/18 06:39 Dose: 25 mg Ondansetron HCl (Zofran) 4 mg IV Q6HP PRN PRN Reason: NAUSEA / VOMITING Stop: 05/13/18 11:04 Sodium Chloride (Normal Saline Flush) 10 ml IV BID HIEU Stop: 05/13/18 21:01 Last Admin: 04/14/18 08:48 Dose: 10 ml Assessment/ Plan: Nephrology. Malaise and weakness. +TREADWELL Reports diffuse pain. CPS stable without CP. No acute events overnight. Vitals, medications, blood work and imaging reviewed in the chart. General: In no apparent distress, Oriented x3, Cooperative HEENT: Mucous membr. moist/pink Neck: Supple, JVD distended Respiratory: Diminished Cardiovascular: Regular rate/rhythm, Edema Gastrointestinal: Soft and benign, Non-distended Musculoskeletal: No clubbing, No contractures Integumentary: No rashes, No cyanosis Neurological: Normal speech Laboratory Data (last 24 hrs) 04/13/18 08:40: PT 14.8 H, INR 1.25 04/13/18 08:40: WBC 7.0 D, Hgb 9.7 L, Hct 28.3 L, Plt Count 212 04/13/18 08:40: Sodium 138, Potassium 3.4 L, BUN 62 H, Creatinine 6.30 H*, Glucose 83, Magnesium 2.2, Total Bilirubin 0.5, AST 20, ALT 17, Alkaline Phosphatase 100 Imagings Data: EXAM DESCRIPTION: RADChest Single View04/13/2018 8:58 am CLINICAL HISTORY: Shortness of breath COMPARISON: 04/08/2018 FINDINGS: Worsening in bilateral pulmonary opacities has occurred. The heart remains enlarged. Pleural effusions are unchanged. Post surgical changes involve the chest IMPRESSION: Mild worsening in CHF Conclusions/Impression: A/ ESRD on HD. Hypokalemia. HTN with CKD. DM II with CKD. Anemia in CKD. A/C Diastolic CHF. JUN/ Secondary HyperPTH. P/ Continue current POC and Medications. Arrange for acute HD. Arrange dialysis placement. Increase furosemide. Low sodium diet. Give [place] for pain. No NSAIDs. AM labs. Daily weight.
[2018-04-14] MEDS: ATORVASTATIN 10 MG TAB PO SCH (22:33)
[2018-04-15 05:17] LABS: Absolute Lymphocytes (CBC) 0.5 K/uL (0.7-4.9); Absolute Monocytes 0.5 K/uL (0.1-1.3); Absolute Neutrophil 4.6 K/uL (1.8-8.0); Basophils % 0.5 % (0-1.3); Eosinophils % 0.5 % (0-4.4); Hematocrit 26.3 % (39.6-49.0); Lymphocytes % 8.4 % (15.3-44.8); MCH 32.3 pg (27.0-35.0); MCV 94.9 fL (80-100); MPV 8.1 fL (7.6-11.3); Monocytes % 9.3 % (3.3-12.3); RBC Red Blood Cell Count 2.77 M/uL (4.33-5.43)
[2018-04-15 05:28] LABS: Albumin 2.7 g/dL (3.4-5.0); Bilirubin Total 0.6 mg/dL (0.2-1.0); Potassium 3.9 mmol/L (3.5-5.1); Protein, Total 6.4 g/dL (6.4-8.2)
[2018-04-15] MEDS: METOPROLOL TAR 25 MG TAB PO SCH ×2 (05:59→19:02)
[2018-04-15] MEDS: FUROSEMIDE 40 MG/4 ML VIAL IV SCH ×3 (09:00→17:00)
[2018-04-15] MEDS ORDERED: CEFTRIAXONE/SWI 1gm 1 GM/10 ML SYR IV SCH (13:30)
[2018-04-15] MEDS ORDERED: HYDROCODONE/APAP 5/325 MG TAB PO ONE (15:00)
[2018-04-15] MEDS: ENOXAPARIN 30 MG/0.3 ML SQ SCH (17:00)
[2018-04-15] MEDS: EPOETIN ALFA 10,000 UNIT/ML VIAL IV SCH (17:26)
--- NOTE | 2018-04-15 17:58 | PN ---
Date of Progress Note: 04/15/2018 Subjective: The patient seen and examined. Chart reviewed and case discussed with RN. The patient after multiple refusals and multiple demands, which were not clearly state for him regarding how he w anted dialysis. The patient eventually did agree to dialysis this morning. He refused labs today an d placement of IV. The patient states his breathing is significantly better; however, not completely back to baseline. Still having some shortness of breath. Review of Systems: Negative except as above. Medications: List reviewed. Physical Examination: Vital signs: Temperature 99, heart rate 63, blood pressure 161/70, respirations 20, O2 100% on 15% n on-rebreather mask. The patient refusing BiPAP. General: Awake, alert, oriented x3. Some mild distress. Elderly male. CV: S1, S2. The patient does have a systolic murmur 3/6. Pulses present. Respiratory: Breath sounds improved, still some diminished breath sounds at the bases. Gastrointestinal: Abdomen is soft, nontender, nondistended. Positive bowel sounds. No guarding or rigidity. Extremities: No clubbing or cyanosis. The patient does have 2+ edema bilateral lower extremities up to the chang. Neurologic: Nonfocal. Laboratory Data: Sodium 137, potassium 3.9, chloride 104, CO2 24, BUN 33, creatinine 4, glucose 99, calcium 8.1. WBC 5.6, H and H 8.9 and 26.3, platelets 155, neutrophils 81%. Urine culture growing 3 + gram-negative rods. ID and sensitivity pending. Assessment And Plan: A 77-year-old male with: 1.Acute respiratory distress, refusing BiPAP, now has improved. We will try to wean off to nasal ca nnula secondary to volume overload, from acute chronic kidney disease. 2.Chronic kidney disease stage 5, started on dialysis yesterday after multiple refusals. The patien t will need set up for outpatient dialysis. He understands that he needs to go to dialysi s 3 times a week for which is 3-4 hours every time either Thursday, Thursday, Thursday or Thursday, day, Thursday for the Live. He agrees. 3.Volume overload secondary to chronic kidney disease. 4.Acute on chronic congestive heart failure, ejection fraction 54%. 5.Hypertensive heart disease. 6.Coronary artery disease, [place] artery and [place] heart, status post coronary artery bypass graft. 7.Elevated troponin level secondary to congestive heart failure, chronic kidney disease. Denies any chest pain. 8.Diabetes mellitus type 2 [id number], now with hyperglycemia. We will continue to monit or blood glucose levels. Continue sliding scale insulin. 9.Anemia of chronic disease secondary to chronic kidney dysfunction. We will monitor H and H. 10.Mixed hyperlipidemia. Continue statin. 11.Uncontrolled hypertension due to volume overload, now improving. Continue blood pressure medicat ions and hydralazine p.r.n. 12.Noncompliance intentional. 13.Personality disorder, not otherwise specified. 14.Gastrointestinal and deep venous thrombosis prophylaxis with PPI and Lovenox. Plan: Continue dialysis. We will need care time set up. assembly worker has been consulted. GARETT Voice ID: [id number] Report ID: [id number]
[2018-04-15] MEDS: CEFTRIAXONE/SWI 1gm 1 GM/10 ML SYR IVP SCH (21:11)
[2018-04-15] MEDS: ATORVASTATIN 10 MG TAB PO SCH (21:11)
[2018-04-15] MEDS ORDERED: HYDROCODONE/APAP 10/325 TAB PO PRN (21:18)
--- NOTE | 2018-04-15 21:24 | P.PN ---
Date of Service: 04/15/18 Vital Signs Temp Pulse Resp BP Pulse Ox 97.6 F 69 22 H 154/67 H 97 04/15/18 20:00 04/15/18 20:00 04/15/18 20:00 04/15/18 20:00 04/15/18 20:00 Medications Acetaminophen (Tylenol -Extra Strength) 500 mg PO Q4HP PRN PRN Reason: [id number] Stop: 05/13/18 11:04 Last Admin: 04/13/18 16:07 Dose: 500 mg Hydrocodone Bitart/Acetaminophen (Quilcene 10/325) 1 tab PO Q4H PRN PRN Reason: PAIN MILD TO MODERATE Stop: 05/15/18 21:19 Atorvastatin Calcium (Lipitor) 10 mg PO BEDTIME HIEU Stop: 05/13/18 21:01 Last Admin: 04/15/18 21:11 Dose: 10 mg Enoxaparin Sodium (Lovenox 30 Mg Inj) 30 mg SQ DAILY 5 PM HIEU Stop: 05/15/18 17:01 Last Admin: 04/15/18 17:00 Dose: Not Given Epoetin Keegan (Procrit) 10,000 unit IV EVERY HD HIEU Stop: 05/13/18 21:31 Last Admin: 04/15/18 17:26 Dose: 10,000 unit Furosemide (Lasix) 80 mg IV BIDL HIEU Stop: 05/14/18 09:01 Last Admin: 04/15/18 17:00 Dose: Not Given Heparin Sodium (Porcine) (Heparin 1,000 Units/Ml) 6,000 unit IV EVERY HD PRN PRN Reason: FLUSH AFTER EACH USE Hydralazine HCl (Apresoline) 10 mg IV Q6HP PRN PRN Reason: HIGH BP Stop: 05/13/18 16:21 Last Admin: 04/14/18 14:10 Dose: 10 mg Albumin Human (Albumin 25%) 50 mls @ 100 mls/hr IV EVERY HD HIEU Stop: 05/13/18 22:01 Ceftriaxone Sodium/Sodium Chloride (Rocephin 1 Gm/10 Ml Swi Ivp) 1 gm in 10 mls @ 600 mls/hr IVP DAILY HIEU; Protocol Stop: 05/15/18 21:01 Last Admin: 04/15/18 21:11 Dose: 10 mls Mannitol (Mannitol 12.5 Gm/50 Ml Vial) 12.5 gm IV EVERY HD PRN PRN Reason: BP support at hemodialysis Stop: 05/13/18 21:27 Metoprolol Tartrate (Lopressor) 25 mg PO BID 6AM 6PM [facility] Stop: 05/13/18 18:01 Last Admin: 04/15/18 19:02 Dose: 25 mg Ondansetron HCl (Zofran) 4 mg IV Q6HP PRN PRN Reason: NAUSEA / VOMITING Stop: 05/13/18 11:04 Sodium Chloride (Normal Saline Flush) 10 ml IV BID [facility] Stop: 05/13/18 21:01 Last Admin: 04/15/18 21:11 Dose: 10 ml Assessment/ Plan: Nephrology. Malaise and weakness. +[place] Still with persistent pain not well controlled with Quilcene 5/325 CPS stable without CP. No acute events overnight. Vitals, medications, blood work and imaging reviewed in the chart. General: In no apparent distress, Oriented x3, Cooperative HEENT: Mucous membr. moist/pink Neck: Supple, JVD distended Respiratory: Diminished Cardiovascular: Regular rate/rhythm, Edema Gastrointestinal: Soft and benign, Non-distended Musculoskeletal: No clubbing, No contractures Integumentary: No rashes, No cyanosis Neurological: Normal speech Laboratory Data (last 24 hrs) 04/13/18 08:40: PT 14.8 H, INR 1.25 04/13/18 08:40: WBC 7.0 D, Hgb 9.7 L, Hct 28.3 L, Plt Count 212 04/13/18 08:40: Sodium 138, Potassium 3.4 L, BUN 62 H, Creatinine 6.30 H*, Glucose 83, Magnesium 2.2, Total Bilirubin 0.5, AST 20, ALT 17, Alkaline Phosphatase 100 Imagings Data: EXAM DESCRIPTION: Travist Single View04/13/2018 8:58 am CLINICAL HISTORY: Shortness of breath COMPARISON: 04/08/2018 FINDINGS: Worsening in bilateral pulmonary opacities has occurred. The heart remains enlarged. Pleural effusions are unchanged. Post surgical changes involve the chest IMPRESSION: Mild worsening in CHF Conclusions/Impression: A/ ESRD on HD. Hypokalemia. HTN with CKD. DM II with CKD. Anemia in CKD. A/C Diastolic CHF. JUN/ Secondary HyperPTH. P/ Continue current POC and Medications. Next HD tomorrow. Arrange dialysis placement. Low sodium diet. Increase Quilcene for chronic pain. No NSAIDs. AM labs. Daily weight.
[2018-04-16] MEDS: HYDRALAZINE HCL 20 MG/ML VIAL IV PRN (03:59)
[2018-04-16 05:17] VITALS: BMI 21.6
[2018-04-16 05:28] LABS: Absolute Lymphocytes (CBC) 0.8 K/uL (0.7-4.9); Absolute Monocytes 0.7 K/uL (0.1-1.3); Absolute Neutrophil 4.8 K/uL (1.8-8.0); Basophils % 0.6 % (0-1.3); Eosinophils % 1.1 % (0-4.4); Lymphocytes % 12.1 % (15.3-44.8); MCH 33.2 pg (27.0-35.0); MCV 94.1 fL (80-100); MPV 8.5 fL (7.6-11.3); Monocytes % 10.5 % (3.3-12.3); RBC Red Blood Cell Count 3.09 M/uL (4.33-5.43)
[2018-04-16] MEDS: METOPROLOL TAR 25 MG TAB PO SCH ×2 (05:39→17:35)
[2018-04-16 05:51] LABS: Albumin 2.9 g/dL (3.4-5.0); Bilirubin Total 0.5 mg/dL (0.2-1.0); Magnesium 2.1 mg/dL (1.8-2.4); Phosphorus 2.1 mg/dL (2.5-4.9); Potassium 4.2 mmol/L (3.5-5.1); Protein, Total 6.9 g/dL (6.4-8.2); Uric Acid 2.6 mg/dL (3.5-7.2)
[2018-04-16] MEDS: FUROSEMIDE 40 MG/4 ML VIAL IV SCH ×2 (09:41→17:35)
[2018-04-16] MEDS: CEFTRIAXONE/SWI 1gm 1 GM/10 ML SYR IVP SCH (09:43)
[2018-04-16 09:58] VITALS: O2SAT 100
[2018-04-16] MEDS: ACETAMINOPHEN 500 MG TAB PO PRN (11:34)
[2018-04-16] MEDS ORDERED: levoFLOXacin 250 MG TAB PO SCH ×2 (13:00→21:00)
[2018-04-16 14:53] VITALS: BP 127/87; TEMP 100.8
[2018-04-16] MEDS: EPOETIN ALFA 10,000 UNIT/ML VIAL IV SCH (15:32)
[2018-04-16] MEDS: ENOXAPARIN 30 MG/0.3 ML SQ SCH (17:35)
--- NOTE | 2018-04-16 22:37 | P.PN ---
Date of Service: 04/16/18 Vital Signs Temp Pulse Resp BP Pulse Ox 100.8 F 71 20 127/87 95 04/16/18 12:00 04/16/18 12:00 04/16/18 12:00 04/16/18 12:00 04/16/18 12:00 Assessment/ Plan: Nephrology. Feeling better. CPS stable without CP. No acute events overnight. Vitals, medications, blood work and imaging reviewed in the chart. General: In no apparent distress, Oriented x3, Cooperative HEENT: Mucous membr. moist/pink Neck: Supple, JVD distended Respiratory: Diminished Cardiovascular: Regular rate/rhythm, Edema Gastrointestinal: Soft and benign, Non-distended Musculoskeletal: No clubbing, No contractures Integumentary: No rashes, No cyanosis Neurological: Normal speech Laboratory Data (last 24 hrs) 04/13/18 08:40: PT 14.8 H, INR 1.25 04/13/18 08:40: WBC 7.0 D, Hgb 9.7 L, Hct 28.3 L, Plt Count 212 04/13/18 08:40: Sodium 138, Potassium 3.4 L, BUN 62 H, Creatinine 6.30 H*, Glucose 83, Magnesium 2.2, Total Bilirubin 0.5, AST 20, ALT 17, Alkaline Phosphatase 100 Imagings Data: EXAM DESCRIPTION: RADChest Single View04/13/2018 8:58 am CLINICAL HISTORY: Shortness of breath COMPARISON: 04/08/2018 FINDINGS: Worsening in bilateral pulmonary opacities has occurred. The heart remains enlarged. Pleural effusions are unchanged. Post surgical changes involve the chest IMPRESSION: Mild worsening in CHF Conclusions/Impression: A/ ESRD on HD. Hypokalemia. HTN with CKD. DM II with CKD. Anemia in CKD. A/C Diastolic CHF. JUN/ Secondary HyperPTH. P/ Continue current POC and Medications. Seen and examined on HD. Arrange dialysis placement. Low sodium diet. [place] prn. No NSAIDs. AM labs. Daily weight.
--- NOTE | 2018-04-17 06:33 | DS ---
Date of Discharge: 04/16/2018 Consultants: Dr. Jacobson with Nephrology, Dr. Quezada with General Surgery. Procedures: On 04/13/[address] Quezada, placement of right internal jugular Tesio catheter and inter pretation of intraoperative fluoroscopy. Admitting Diagnoses: 1.Acute respiratory distress secondary to volume overload. 2.Volume overload secondary to chronic kidney disease. 3.Chronic kidney disease stage 5. 4.Kgynp-dv-gdcmwvc congestive heart failure. 5.Hypertensive heart disease. 6.Coronary artery disease, [place] artery and [place] heart, status post coronary artery bypass graft. 7.Elevated troponin level secondary to congestive heart failure and chronic kidney disease. 8.Diabetes mellitus type 2, yne-wsbactx-lbgbpnwqu with hyperglycemia. 9.Anemia of chronic disease secondary to chronic kidney disease. 10.Hyperlipidemia. 11.Essential hypertension. 12.Noncompliance. Discharge Diagnoses: 1.Acute respiratory distress secondary to volume overload. 2.Chronic kidney disease stage 5, initiated on dialysis. 3.Volume overload secondary to chronic kidney disease. 4.Osovv-ti-mklprxu congestive heart failure. EF 54%. Improving. 5.Hypertensive heart disease. 6.Coronary artery disease, [place] artery and [place] heart, status post coronary artery bypass graft. 7.Elevated troponin level secondary to congestive heart failure and chronic kidney disease. 8.Diabetes mellitus type 2, krb-slkzaht-tinvrukwr with hyperglycemia. The patient's A1c is 5.7%. T he patient is not noncompliant. 9.Noncompliance, intentional. 10.Anemia of chronic disease secondary to chronic kidney dysfunction. 11.Hyperlipidemia, mixed, on statin. 12.Uncontrolled hypertension due to volume overload. 13.Personality disorder, not otherwise specified. 14.Urinary tract infection, acute cystitis with hematuria secondary to Pseudomonas aeruginosa, sensi tive to Levaquin. Hospital Course: The patient is a noncompliant, 77-year-old male who has been in and out of the hosp ital multiple times recently for shortness of breath. The patient's condition stems from congestive heart failure as well as chronic kidney disease and his refusal to initiate dialysis. The patient is unable to be diuresed properly and therefore requires dialysis, however, had been refusing. The pat ient finally agreed to dialysis after multiple refusal even after changing his mind as an outpatient. He was seen by Dr. Quezada, who placed a tunneled catheter. Dr. Jacobson set up hemodialysis. The diony miller did have multiple issues and request an unreasonable request including having family members pr esent in dialysis and standing with pills around him and not sitting which delayed his treatment. Af ter refusing dialysis multiple times, he did finally agree to the first treatment. The patient did f eel significantly better. His shortness of breath improved. His edema also improved. The patient w as then again dialyzed the following day. Did not put as much resistance. Continues to be noncompli ant with his diet restrictions including fluid restriction or his calorie restrictions including high glycemic index foods with family members bringing in donuts for him as well as outside drinks. The patient was then set up for dialysis with process for hemodialysis facility and will have a chair dante russo of Thursday. The patient did have UTI, which was secondary to Pseudomonas, sensitive to Levaquin. He will finish up course of Levaquin for the UTI. The patient was then discharged home in a [facility] dition. Diet: Renal. Activity: Fall precautions. Followup: With PCP in 2 to 3 days. Follow up with stunt performer, Dr. Jacobson in 2 weeks. Return to ER for worsening condition. Keep dialysis appointments. Discussed with family and patient. The adeel uriostegui did not have any difficulty finding transportation with multiple family members eager to help hi m. The patient also understands that he will be going to dialysis 3 times a week for 3 to 4 hours pe r session. He understands that he is not to misuse sessions as they will lead to worsening condition . He agrees and wishes to proceed. Physical Examination: General: Awake, alert, oriented, no acute distress, elderly male. CV: S1, S2. Respiratory: Somewhat diminished breath sounds, however, improved. Otherwise, moving air well in th e apices. Gastrointestinal: Abdomen is soft, nontender, nondistended. Positive bowel sounds. Extremities: No clubbing, cyanosis. 1+ edema of the bilateral lower extremities, significantly impr lana. Neuro: Nonfocal. Total time spent discharging the patient was 45 minutes. GARETT Voice ID: [id number] Report ID: [id number]
== END 2018-04-16 19:32 | disposition home or self-care (01) | DRG 291 ==
LOC: ER 08:18 → ERHOLD 11:11 → 2ND 12:25
PROVIDERS: ADMIT Family Medicine; ATTEND Family Medicine
PROC: 02HV33Z Insertion of Infusion Device into Superior Vena Cava, Percutaneous Approach (ICD-10-PCS; 2018-04-13)
PROC: B518YZA Fluoroscopy of Superior Vena Cava using Other Contrast, Guidance (ICD-10-PCS; 2018-04-13)
PROC: 0JH63XZ Insertion of Tunneled Vascular Access Device into Chest Subcutaneous Tissue and Fascia, Percutaneous Approach (ICD-10-PCS; principal; 2018-04-13 12:45)
PROC: 5A1D70Z Performance of Urinary Filtration, Intermittent, Less than 6 Hours Per Day (ICD-10-PCS; 2018-04-14)
PROC: 5A1D70Z Performance of Urinary Filtration, Intermittent, Less than 6 Hours Per Day (ICD-10-PCS; 2018-04-15)
PROC: 5A1D70Z Performance of Urinary Filtration, Intermittent, Less than 6 Hours Per Day (ICD-10-PCS; 2018-04-15)
PROC: 5A1D70Z Performance of Urinary Filtration, Intermittent, Less than 6 Hours Per Day (ICD-10-PCS; 2018-04-16)
DX: I13.2 Hypertensive heart and chronic kidney disease with heart failure and with stage 5 chronic kidney disease, or end stage renal disease (principal); I50.33 Acute on chronic diastolic (congestive) heart failure; N18.5 Chronic kidney disease, stage 5; N17.9 Acute kidney failure, unspecified; N30.01 Acute cystitis with hematuria; R06.03 Acute respiratory distress; E11.22 Type 2 diabetes mellitus with diabetic chronic kidney disease; Z87.891 Personal history of nicotine dependence; I25.10 Atherosclerotic heart disease of native coronary artery without angina pectoris; Z95.1 Presence of aortocoronary bypass graft; E11.649 Type 2 diabetes mellitus with hypoglycemia without coma; D63.1 Anemia in chronic kidney disease; J44.9 Chronic obstructive pulmonary disease, unspecified; I25.2 Old myocardial infarction; K74.60 Unspecified cirrhosis of liver; Z86.711 Personal history of pulmonary embolism; E87.6 Hypokalemia; E78.00 Pure hypercholesterolemia, unspecified; Z95.0 Presence of cardiac pacemaker; E11.65 Type 2 diabetes mellitus with hyperglycemia; E78.2 Mixed hyperlipidemia; Z91.128 Patient's intentional underdosing of medication regimen for other reason; B96.5 Pseudomonas (aeruginosa) (mallei) (pseudomallei) as the cause of diseases classified elsewhere; F60.9 Personality disorder, unspecified
CPT/HCPCS: 36415; 71045; 76000; 80048; 80053; 80076; 81001; 82805; 82962; 83735; 83880; 84100; 84484; 84550; 85025; 85610; 87077; 87086; 87088; 87186; 90935; 93005; 93306; 94660; 94760; 96374; 99285; C1752; J0360; J0690; J0696; J1644; J2001; J2405; Q4081

== ENCOUNTER 2018-05-04 13:51 | Emergency (ER) | payer OTHER ==
--- OUTSIDE RECORDS SUMMARY | 2018-05-04 13:56 | XMS REPORT | Clinical Summary ---
:1940 Author Organization [facility] Address [address] [place] [address] Phone Care Team Providers Name Role Phone [...] Problem Noted Date Acute renal failure (ARF) ([facility]) 07/16/2016 S/P CABG x 3 07/04/2016 Acute pulmonary insufficiency following thoracic surgery ([facility]) 07/04/2016 Acute postoperative pain 07/04/2016 CKD (chronic kidney disease) stage 3, GFR 30-59 ml/min ([facility]) 07/04/2016 Acute blood loss anemia 07/04/2016 Type 2 diabetes mellitus with hyperglycemia, without long-term current use of insulin ([facility]) Foreign body aspiration, initial encounter 07/04/2016 Mucus plugging of bronchi 07/04/2016 NSTEMI (non-ST elevated myocardial infarction) ([facility]) 07/01/2016 CAD (coronary artery disease) 10/16/2015 Encounters Date Type Specialty Care Team Description 03/03/2018 Emergency Emergency Medicine Franklyn Dawson MD 03/01/2018 Emergency Emergency Medicine Macrina Gómez MD Urinary retention (Primary Dx);Right lower quadrant abdominal pain;Renal insufficiency;Hypertens kaley urgency 03/01/2018 Orders Only General Internal Medicine after 05/03/2017 Family History Medical History Relation Name Comments [...] Color, UA Yellow Clarity, UA Hazy Specific [place], UA 1.012 1.001 - 1.035 pH, UA [...] Yusuf Specimen Performing Laboratory Urine - Urine, [address] [address] Urine culture (03/03/2018 11:08 AM) Component Value Ref Range Result 70-79,000 col/mL Pseudomonas aeruginosa (A) Specimen Performing Laboratory Urine - Urine, [address] [address] Organism Antibiotic Method Susceptibility Pseudomonas aeruginosa Amikacin [...] normal. ST segments abnormal. T waves abnormal. [place] is normal. Other findings: no other findings. Clinical Impression: non-specific ECG and abnormal ECG CT abdomen pelvis without contrast (03/01/2018 1:46 PM) Specimen Performing Laboratory Pathflow Narrative FINAL REPORT ABDOMINAL AND PELVIS CT [...] MD Report Verified Date/Time:03/01/2018 15:15:27 Reading Location: [facility] C013 CT Body Reading Room Procedure Note [...] Report Verified Date/Time: 03/01/2018 15:15:27 Reading Location: [facility] C013Y CT Body Reading Room with [...] % Specimen Performing Laboratory Blood - Arm, [address] [address] CBC with platelet count + automated diff (03/01/2018 10:29 AM) Specimen Performing Laboratory Blood Narrative The following orders were created for panel order CBC with platelet count + automated diff. Procedure Abnormality Status --------- ------ CBC with platelet count ...[[id number]]AbnormalFinal result Please view results for these tests on the individual orders. Lipase (03/01/2018 10:29 AM) Component Value Ref Range Lipase 61 8 - 78 U/L Specimen Performing Laboratory Blood - Arm, [address] [address] Amylase (03/01/2018 10:29 AM) Component Value Ref Range Amylase 113 25 - 125 U/L Specimen Performing Laboratory Blood - Arm, [address] [address] Hepatic function panel (03/01/2018 10:29 AM) Component Value Ref Range Protein, Total 6.8 6.0 - 8.3 gm/dL Albumin 3.5 3.5 - 5.0 g/dL Total Bilirubin 0.4 0.2 - 1.2 mg/dL Bilirubin, Direct 0.2 0.1 - 0.5 mg/dL Alkaline Phosphatase 78 40 - 150 U/L AST 20 5 - 34 U/L ALT 21 6 - 55 U/L Specimen Performing Laboratory Blood - Arm, [address] [address] Basic Metabolic Panel (03/01/2018 10:29 AM) Component [...] PATIENTS. Specimen Performing Laboratory Blood - Arm, [address] [address] ECG 12 lead (03/01/2018 10:20 AM) Specimen Performing Laboratory GE MUSE Narrative Ventricular Rate 62 BPM Atrial Rate 62 BPM P-R Interval 178 ms QRS Duration 96 ms Q-T Interval 452 ms QTC Calculation(Bazett) 458 ms P [place] 66 degrees R [place] -24 degrees T [place] 140 degrees Normal sinus rhythm Possible Left [...] 452 ms QTC Calculation(Bazett) 458 ms P [place] 66 degrees R [place] -24 degrees T [place] 140 degrees Normal sinus rhythm Possible Left [...] STEFFI (1904) on 03/02/2018 6:54:28 AM after 05/03/2017
--- OUTSIDE RECORDS SUMMARY | 2018-05-04 13:56 | XMS REPORT ---
:1940 Author Organization [facility] Address [address] [place] [address] Dr. Manley [address] [place] [id number] Care Team Providers Name Role Phone RODNEY [...] Comments CULTURE (BEAKER) (test PSEUDOMONAS 70-79,000 col/mL wqpt=1428) AERUGINOSA Pseudomonas aeruginosa Amikacin (test code=1) Susceptible [...] code=25) Resistant <0 or >4 URINALYSIS W/ [id number] 12:06:00 Test Item Value Reference Range Comments COLOR (BEAKER) (test twek=208) Yellow CLARITY (BEAKER) (test gnnt=800) Hazy SPECIFIC GRAVITY UA (BEAKER) (test jsws=645) 1.012 1.001-1.035 PH UA (BEAKER) (test hnvw=295) 6.0 5.0-8.0 PROTEIN UA (BEAKER) (test jjrs=802) 600 mg/dL Negative GLUCOSE UA (BEAKER) (test vcfj=307) 100 mg/dL Negative KETONES UA (BEAKER) (test ajox=367) Negative Negative BILIRUBIN UA (BEAKER) (test yrng=416) Negative Negative BLOOD UA (BEAKER) (test cipx=330) Moderate Negative NITRITE UA (BEAKER) (test umqu=249) Negative Negative LEUKOCYTE ESTERASE UA (BEAKER) (test gusf=217) Small Negative UROBILINOGEN UA (BEAKER) (test hwof=752) 0.2 mg/dL 0.2-1.0 RBC UA (BEAKER) (test sgvk=960) 27 /HPF WBC UA (BEAKER) (test ixhg=483) 12 /HPF BACTERIA (BEAKER) (test jqvc=517) Occasional MUCUS (BEAKER) (test bvtf=7197) Rare SQUAMOUS EPITHELIAL (BEAKER) (test kozw=311) < /HPF HYALINE CASTS (BEAKER) (test qcqy=200) 2 /LPF GRANULAR CASTS (BEAKER) (test onvc=523) 5 /LPF SOURCE(BEAKER) (test thra=4681) Urine, Yusuf CT, [id number] 15:15:00Reason for exam:->ABDOMINAL PAINWhat is the patient's [...] Verified Date/ Time: 03/01/2018 15:15:27 Reading Location: [address] Body Reading Room BASI METABOLIC [id number] 11:04:00 Test Item Value Reference Range Comments SODIUM (BEAKER) (test 136 meq/L 136-145 mmek=260) POTASSIUM (BEAKER) (test 4.0 meq/L 3.5-5.1 nizj=394) CHLORIDE (BEAKER) (test 108 meq/L 98-107 ttgp=895) CO2 (BEAKER) (test 15 meq/L 22-29 rgje=953) BLOOD UREA NITROGEN 80 mg/dL 7-21 (BEAKER) (test razq=381) CREATININE (BEAKER) (test 4.79 mg/dL 0.57-1.25 kmly=465) GLUCOSE RANDOM (BEAKER) 84 mg/dL 70-105 (test lpka=412) CALCIUM (BEAKER) (test 8.9 mg/dL 8.4-10.2 ajgo=063) EGFR (BEAKER) (test 12 mL/min/1.73 sq m ESTIMATED GFR IS NOT buns=6689) ACCURATE CREATININE CLEARANCE IN PREDICTING GLOMERULAR FILTRATION RATE. ESTIMATED GFR IS NOT APPLICABLE FOR DIALYSIS PATIENTS. [id number] 11:02:00 Test Item Value Reference Range Comments LIPASE (BEAKER) (test gbdg=670) 61 U/L 8-78 [id number] 11:02:00 Test Item Value Reference Range Comments AMYLASE (BEAKER) (test rwqa=218) 113 U/L 25-125 HEPATIC FUNCTION [id number] 11:02:00 Test Item Value Reference Range Comments TOTAL PROTEIN (BEAKER) (test gwbx=656) 6.8 gm/dL 6.0-8.3 ALBUMIN (BEAKER) (test mmpq=5678) 3.5 g/dL 3.5-5.0 BILIRUBIN TOTAL (BEAKER) (test bzci=695) 0.4 mg/dL 0.2-1.2 BILIRUBIN DIRECT (BEAKER) (test fkkm=070) 0.2 mg/dL 0.1-0.5 ALKALINE PHOSPHATASE (BEAKER) (test ckgb=895) 78 U/L 40-150 AST (SGOT) (BEAKER) (test qsjh=119) 20 U/L 5-34 ALT (SGPT) (BEAKER) (test rdcr=080) 21 U/L 6-55 URINALYSIS W/ [id number] 11:01:00 Test Item Value Reference Range Comments COLOR (BEAKER) (test gebs=026) Light Yellow CLARITY (BEAKER) (test qzti=622) Clear SPECIFIC GRAVITY UA (BEAKER) (test jjum=947) 1.006 1.001-1.035 PH UA (BEAKER) (test pjrg=565) 6.0 5.0-8.0 PROTEIN UA (BEAKER) (test aiwd=150) 300 mg/dL Negative GLUCOSE UA (BEAKER) (test fobv=409) 30 mg/dL Negative KETONES UA (BEAKER) (test rzbl=371) Negative Negative BILIRUBIN UA (BEAKER) (test joyh=096) Negative Negative BLOOD UA (BEAKER) (test ijuv=123) Trace Negative NITRITE UA (BEAKER) (test aqqo=072) Negative Negative LEUKOCYTE ESTERASE UA (BEAKER) (test stoe=622) Negative Negative UROBILINOGEN UA (BEAKER) (test yddb=192) 0.2 mg/dL 0.2-1.0 RBC UA (BEAKER) (test rwsi=918) < /HPF WBC UA (BEAKER) (test qqvf=051) < /HPF BACTERIA (BEAKER) (test cijg=433) Rare MUCUS (BEAKER) (test cygz=1523) Rare SOURCE(BEAKER) (test xvge=2100) Urine, Voided CBC W/PLT COUNT & AUTO [id number] 10:49:00 Test Item Value Reference Range Comments WHITE BLOOD CELL COUNT (BEAKER) (test kvnz=042) 5.6 K/ L 3.5-10.5 RED BLOOD CELL COUNT (BEAKER) (test httt=006) 3.10 M/ L 4.63-6.08 HEMOGLOBIN (BEAKER) (test plnw=703) 9.8 GM/DL 13.7-17.5 HEMATOCRIT (BEAKER) (test pbni=603) 29.7 % 40.1-51.0 MEAN CORPUSCULAR VOLUME (BEAKER) (test yvje=767) 95.8 fL 79.0-92.2 MEAN CORPUSCULAR HEMOGLOBIN (BEAKER) (test 31.6 pg 25.7-32.2 lmaa=547) MEAN CORPUSCULAR HEMOGLOBIN CONC (BEAKER) (test 33.0 GM/DL 32.3-36.5 iogd=678) RED CELL DISTRIBUTION WIDTH (BEAKER) (test 14.0 % 11.6-14.4 bvsv=937) PLATELET COUNT (BEAKER) (test jhhw=071) 171 K/CU MM 150-450 MEAN PLATELET VOLUME (BEAKER) (test wztp=389) 11.1 fL 9.4-12.4 NUCLEATED RED BLOOD CELLS (BEAKER) (test 0 /100 WBC 0-0 yzwb=434) NEUTROPHILS RELATIVE PERCENT (BEAKER) (test 69 % avwc=685) LYMPHOCYTES RELATIVE PERCENT (BEAKER) (test 16 % bjbv=372) MONOCYTES RELATIVE PERCENT (BEAKER) (test 10 % gont=508) EOSINOPHILS RELATIVE PERCENT (BEAKER) (test 4 % zhqk=008) BASOPHILS RELATIVE PERCENT (BEAKER) (test 1 % vgpq=588) NEUTROPHILS ABSOLUTE COUNT (BEAKER) (test 3.88 K/ L 1.78-5.38 wvil=393) LYMPHOCYTES ABSOLUTE COUNT (BEAKER) (test 0.88 K/ L 1.32-3.57 ffeu=931) MONOCYTES ABSOLUTE COUNT (BEAKER) (test 0.56 K/ L 0.30-0.82 tekh=350) EOSINOPHILS ABSOLUTE COUNT (BEAKER) (test 0.25 K/ L 0.04-0.54 cykg=747) BASOPHILS ABSOLUTE COUNT (BEAKER) (test 0.03 K/ L 0.01-0.08 houf=484) IMMATURE GRANULOCYTES-RELATIVE PERCENT (BEAKER) 0 % 0-1 (test qlzg=8233)
--- NOTE | 2018-05-04 14:46 | RAD REPORT ---
EXAM DESCRIPTION: RAD - Chest Single View - 05/04/2018 2:40 pm CLINICAL HISTORY: Chest pain, shortness of breath COMPARISON: April 13 TECHNIQUE: AP portable chest image was obtained 1427 hours . FINDINGS: Lung volumes are low. Bilateral pleural effusions are present mild to moderate in size pro bably increased from the comparison. Dialysis catheter is in place. Interstitial and scattered alveol ar opacities are present in the mid lung miner. Lung base atelectasis will be present. Heart size is upper normal with the heart mostly obscured by the pleural fluid and atelectasis. No pneumothorax. N o acute bony abnormality seen. No acute aortic findings suspected. IMPRESSION: CHF/volume overload pattern with interstitial and alveolar opacification and bilateral p leural effusions.
[2018-05-04 14:47] LABS: Absolute Lymphocytes (CBC) 0.7 K/uL (0.7-4.9); Absolute Monocytes 0.4 K/uL (0.1-1.3); Absolute Neutrophil 3.6 K/uL (1.8-8.0); Basophils % 0.8 % (0-1.3); Eosinophils % 1.6 % (0-4.4); Hematocrit 24.9 % (39.6-49.0); Lymphocytes % 14.7 % (15.3-44.8); MCH 32.4 pg (27.0-35.0); MCV 96.8 fL (80-100); MPV 8.7 fL (7.6-11.3); Monocytes % 8.4 % (3.3-12.3); RBC Red Blood Cell Count 2.57 M/uL (4.33-5.43)
[2018-05-04 14:48] LABS: Protime INR 1.15
[2018-05-04 15:00] LABS: Albumin 3.1 g/dL (3.4-5.0); Bilirubin Total 0.4 mg/dL (0.2-1.0); Magnesium 2.1 mg/dL (1.8-2.4); Potassium 4.1 mmol/L (3.5-5.1); Protein, Total 7.1 g/dL (6.4-8.2); Troponin (Emerg Dept Use Only) 0.03 ng/mL (0.0-0.045)
--- NOTE | 2018-05-04 15:09 | ER ---
Nurse's Notes [facility] Name: Blaise Quarles Age: 77 yrs Sex: Male : 1940 Arrival Date: 05/04/2018 Time: 14:04 Bed 7 Private MD: Diagnosis: Presentation: 05/04 14:05 Presenting complaint: EMS states: He was at dialysis for 45 min, began c/o upper jl7 abdominal pain and then left and right sided chest pain with right sided jaw pain. Gave 324 aspirin and 2 Nitro. Pt reports constipation, had a small BM yesterday but it was hard. Transition of care: patient was received from another setting of care (ambulatory specialty care practice), [facility]. Onset of symptoms was May 04, 2018 at 13:15. Risk Assessment: Do you want to hurt yourself or someone else? Patient reports no desire to harm self or others. Initial Sepsis Screen: Does the patient meet any 2 criteria? No. Patient's initial sepsis screen is negative. Does the patient have a suspected source of infection? No. Patient's initial sepsis screen is negative. Care prior to arrival: Medication(s) given: ASA, 81 mg, x 4, Nitro x2 IV initiated. 18 GA, in the right antecubital area, Glucose check: 119. 14:05 Method Of Arrival: EMS: [facility] jl7 14:05 Acuity: SARATH 2 jl7 Historical: - Allergies: 14:16 Aspirin; jl7 - PMHx: 14:16 chronic renal disease; Hypertension; CAD; Diabetes - IDDM; pleural effusion; Anemia; jl7 Myocardial infarction; pulmonary nodule; CHF; High Cholesterol; Visually impared; - Immunization history:: Flu vaccine status is unknown. - Ebola Screening: : No symptoms or risks identified at this time. Screenin:17 Abuse screen: Denies threats or abuse. Denies injuries from another. Nutritional mg2 screening: No deficits noted. Tuberculosis screening: No symptoms or risk factors identified. Fall Risk IV access (20 points). Manager Image: 15:56 Manager Image Note: Informed by nursing that pt wanted to leave AMA from ED. Met with lk pt and his family. As pt is primarily Yakut speaking, utilized [employer] video via iPad and conferenced with Nicole (ID # [id number]). Explantation regarding physician's recommendation for admission was discussed with pt and family. Though family does not support AMA discharge, pt repeatedly stated that he wanted to go home. Family stated that he completed a full HD treatment on Thursday but only 45 minutes today. Asked pt if wanted to consider hospice at this time, and he reported he would think about it for a day or two. AMA form completed, signed and witnessed. Dr. Pal informed. Vital Signs: 14:00 BP 150 / 69; Pulse 84; Resp 16 S; Temp 98.4(O); Pulse Ox 86% on R/A; Weight 58.51 kg jl7 (R); Pain 8/10; 14:05 Pulse Ox 93% on 4 lpm NC; jl7 ED Course: 14:04 Patient arrived in ED. jl7 14:05 Arm band placed on right wrist. jl7 14:09 Triage completed. jl7 14:18 Andreas Pal MD is Attending Physician. ps1 14:40 XRAY Chest (1 view) In Process Unspecified. EDMS 14:40 Erasmo Mullen RN is Primary Nurse. jl7 15:09 Ivon Mckeon MD is Hospitalizing Provider. ps1 15:18 Inserted saline lock: 22 gauge in right antecubital area, using aseptic technique. mg2 Blood collected. Administered Medications: 15:14 Drug: morphine 4 mg Route: IVP; Infused Over: 2 mins; Site: right antecubital; tl3 Outcome: 15:09 Decision to Hospitalize by Provider. ps1 16:12 Patient left the ED. sg Signatures: Dispatcher [employer] EDMS Tashi Luna, HUONG RN Lola Aguilar Erasmo Mullen, HUONG BORJA jl7 Andreas Pal MD MD ps1 Lisa Adan RN RN tl3 Cameron Iniguez RN RN mg2
--- NOTE | 2018-05-04 15:10 | EDPHYS ---
Physician Documentation [facility] Name: Blaise Quarles Age: 77 yrs Sex: Male : 1940 Arrival Date: 05/04/2018 Time: 14:04 Bed 7 Private MD: ED Physician Andreas Pal HPI: 05/04 14:33 This 77 yrs old Male presents to ER via EMS with complaints of Chest Pain. ps1 14:33 The patient has experienced similar episodes in the past. patient was at dialysis and ps1 started having chest pain with radiation into his jaw. Did not finish dialysis. 45 minutes into session. Pain rated as moderate. No remitting factors. . Historical: - Allergies: 14:16 Aspirin; jl7 - PMHx: 14:16 chronic renal disease; Hypertension; CAD; Diabetes - IDDM; pleural effusion; Anemia; jl7 Myocardial infarction; pulmonary nodule; CHF; High Cholesterol; Visually impared; - Immunization history:: Flu vaccine status is unknown. - Ebola Screening: : No symptoms or risks identified at this time. ROS: 14:33 Constitutional: Negative for fever, chills, and weight loss, Eyes: Negative for injury, ps1 pain, redness, and discharge, Respiratory: Negative for shortness of breath, cough, wheezing, and pleuritic chest pain, Abdomen/GI: Negative for abdominal pain, nausea, vomiting, diarrhea, and constipation, MS/Extremity: Negative for injury and deformity, Skin: Negative for injury, rash, and discoloration, Neuro: Negative for headache, weakness, numbness, tingling, and seizure. 14:33 Cardiovascular: Positive for chest pain, of the chest. Exam: 14:33 Constitutional: This is a well developed, well nourished patient who is awake, alert, ps1 and in no acute distress. Head/Face: Normocephalic, atraumatic. Eyes: Pupils equal round and reactive to light, extra-ocular motions intact. Lids and lashes normal. Conjunctiva and sclera are non-icteric and not injected. Chest/axilla: Normal chest wall appearance and motion. Nontender with no deformity. No lesions are appreciated. Cardiovascular: Regular rate and rhythm. No gallops, murmurs, or rubs. Normal PMI, no JVD. No pulse deficits. Respiratory: Lungs have equal breath sounds bilaterally, clear to auscultation and percussion. No rales, rhonchi or wheezes noted. No increased work of breathing, no retractions or nasal flaring. Abdomen/GI: Soft, non-tender, with normal bowel sounds. No distension or tympany. No guarding or rebound. No evidence of tenderness throughout. MS/ Extremity: Pulses equal, no cyanosis. Neurovascular intact. Full, normal range of motion. Neuro: Awake and alert, GCS 15, oriented to person, place, time, and situation. Cranial nerves II-XII grossly intact. Sensory grossly intact. 14:33 Skin: Appearance: normal.. AV graft with thrill. Vital Signs: 14:00 BP 150 / 69; Pulse 84; Resp 16 S; Temp 98.4(O); Pulse Ox 86% on R/A; Weight 58.51 kg jl7 (R); Pain 8/10; 14:05 Pulse Ox 93% on 4 lpm NC; jl7 MDM: 14:40 Patient medically screened. ps1 05/04 14:23 Order name: CBC with Diff; Complete Time: 14:50 ps1 05/04 14:23 Order name: Magnesium; Complete Time: 15:00 ps1 05/04 14:23 Order name: NT PRO-BNP; Complete Time: 15:00 ps1 05/04 14:23 Order name: PT-INR; Complete Time: 15:00 ps1 05/04 14:23 Order name: Troponin (emerg Dept Use Only); Complete Time: 15:00 ps1 05/04 14:23 Order name: CMP; Complete Time: 15:00 ps1 05/04 14:23 Order name: XRAY Chest (1 view); Complete Time: 14:50 ps1 05/04 14:23 Order name: EKG; Complete Time: 14:24 ps1 05/04 14:23 Order name: Cardiac monitoring; Complete Time: 15:17 ps1 05/04 14:23 Order name: EKG - Nurse/Tech; Complete Time: 15:16 ps1 05/04 14:23 Order name: IV Saline Lock; Complete Time: 15:17 ps1 05/04 14:23 Order name: Labs collected and sent; Complete Time: 15:17 ps1 05/04 14:23 Order name: O2 Per Protocol; Complete Time: 15:17 ps1 05/04 14:23 Order name: O2 Sat Monitoring; Complete Time: 14:44 ps1 EC:55 Rate is 83 beats/min. Rhythm is regular. QRS [place] is Normal. ND interval is normal. QRS ps1 interval is normal. QT interval is normal. Q waves are Present. Q waves are New in lead III. T waves are Inverted in leads I, aVL, V5, V6. No ST changes noted. Clinical impression: Inferior AR - age indeterminate. Changes noted from previous ECG on April 13, 2018. Previous findings: New q wave in inferior leads. Interpreted by me. Administered Medications: 15:14 Drug: morphine 4 mg Route: IVP; Infused Over: 2 mins; Site: right antecubital; tl3 Disposition: 05/04/18 16:12 Patient has left against medical advice. - Patients states they are going to Home. - Condition is Stable. Signatures: Dispatcher [employer] EDMS Tashi Luna, RN RN sg Erasmo Mullen RN RN jl7 Leila Treviño RN RN df Andreas Pal MD MD ps1 Lisa Adan RN RN tl3 Cameron Iniguez RN RN mg2 Corrections: (The following items were deleted from the chart) 15:21 15:09 Hospitalization Ordered by Ivon Mckeon MD for Observation. Preliminary df diagnosis is Chest pain, CHF exacerbation. Bed requested for Telemetry/MedSurg (observation). Status is Observation. Condition is Stable. Problem is an acute exacerbation. Symptoms have worsened. UTI on Admission? No. ps1 16:11 15:21 05/04/2018 15:09 Hospitalization Ordered by Ivon Mckeon MD for Observation. sg Preliminary diagnosis is Chest pain, CHF exacerbation. Bed requested for Telemetry/MedSurg (observation). Status is Observation. Condition is Stable. Problem is an acute exacerbation. Symptoms have worsened. UTI on Admission? No. df
[2018-05-04] MEDS ORDERED: MORPHINE 4 MG/ML SYR ONE (15:15)
[2018-05-04] MEDS ORDERED: BUMETANIDE 1 MG/4 ML VIAL IV ONE (15:30)
[2018-05-04 16:18] VITALS: BP 150/69; TEMP 98.4
[2018-05-04 16:19] VITALS: O2SAT 93
--- NOTE | 2018-05-04 21:17 | P.HP ---
Patient History Date of Service: 05/04/18 Reason for admission: Shortness of breath Allergies aspirin Allergy (Verified 01/11/18 15:42) Nausea/Vomiting No Known Allergies Allergy (Uncoded 01/18/18 10:03) Unknown Home Medications: Atorvastatin Calcium [Lipitor*] 10 mg PO BEDTIME 12/15/17 Metoprolol Succinate [Toprol Xl*] 50 mg PO DAILY 12/15/17 Amlodipine [Norvasc*] 10 mg PO DAILY 03/15/18 Bumetanide 1 mg PO BID 03/15/18 traMADol HCL [Ultram*] 50 mg PO TID PRN #15 tab 03/16/18 levoFLOXacin [Levaquin*] 250 mg PO Q48H #5 tab 04/16/18 - Past Medical/Surgical History Diabetic: Yes -: COPD -: CHF -: ANEMIA -: CAD -: CARDIOMEGALY -: CRD -: CIRRHOSIS -: IDDM -: HYPERLIPIDEMIA -: PR -: HTN -: PE -: Repair of left finger fracture -: CABG X3 -: PACEMAKER -: COPD Psychosocial/ Personal History: He is 56 years, has 13 children, he does not work. - Family History Father -: GI disease Notes: none per pt - Social History Alcohol use: No CD- Drugs: No Caffeine use: Yes Physical Examination - Vital Signs Temperature: 98.4 F Blood Pressure: 150/69 Pulse: 84 Respirations: 16 - Studies Laboratory Data (last 24 hrs) 05/04/18 14:20: PT 13.6 H, INR 1.15 05/04/18 14:20: Sodium 137, Potassium 4.1, BUN 36 H, Creatinine 3.30 H, Glucose 122 H, Magnesium 2.1, Total Bilirubin 0.4, AST 20, ALT 21, Alkaline Phosphatase 96 05/04/18 14:20: WBC 4.8, Hgb 8.3 L, Hct 24.9 L, Plt Count 159 Assessment and Plan - Advance Directives Does patient have a Living Will: No Does patient have a Durable POA for Healthcare: No
--- NOTE | 2018-05-05 04:42 | EKG ---
Test Date: 2018-05-04 Test Time: 13:55:11 Trim Die Maker: AG/S MEASUREMENT RESULTS: Intervals: Rate: 83 KS: 156 QRSD: 106 QT: 406 QTc: 477 [place]: P: 51 KS: 156 QRS: -19 T: 154 INTERPRETIVE STATEMENTS: Normal sinus rhythm Possible Left atrial enlargement Anteroseptal infarct, age undetermined ST & T wave abnormality, consider lateral ischemia Abnormal ECG Compared to ECG 04/13/2018 13:10:46 ST (T wave) deviation now present T-wave abnormality no longer present Myocardial infarct finding still present Possible ischemia still present Electronically Signed On 05-05-18 04:41:30 CDT by Brandon Pérez
== END 2018-05-04 16:12 | disposition left against medical advice (07) ==
LOC: ER 13:51
DX: R07.9 Chest pain, unspecified (principal); E11.22 Type 2 diabetes mellitus with diabetic chronic kidney disease; I12.0 Hypertensive chronic kidney disease with stage 5 chronic kidney disease or end stage renal disease; N18.6 End stage renal disease; Z88.6 Allergy status to analgesic agent; Z99.2 Dependence on renal dialysis
CPT/HCPCS: 36415; 71045; 80053; 83735; 83880; 84484; 85025; 85610; 93005; 96374; 99284

== ENCOUNTER 2018-05-05 23:26 | Inpatient (IN) | payer OTHER ==
--- OUTSIDE RECORDS SUMMARY | 2018-05-05 23:29 | XMS REPORT | Clinical Summary ---
:1940 Author Organization [facility] Address [address] [place] [address] Phone Care Team Providers Name Role Phone [...] Problem Noted Date Acute renal failure (ARF) ([facility]) 07/16/2016 S/P CABG x 3 07/04/2016 Acute pulmonary insufficiency following thoracic surgery ([facility]) 07/04/2016 Acute postoperative pain 07/04/2016 CKD (chronic kidney disease) stage 3, GFR 30-59 ml/min ([facility]) 07/04/2016 Acute blood loss anemia 07/04/2016 Type 2 diabetes mellitus with hyperglycemia, without long-term current use of insulin ([facility]) Foreign body aspiration, initial encounter 07/04/2016 Mucus plugging of bronchi 07/04/2016 NSTEMI (non-ST elevated myocardial infarction) ([facility]) 07/01/2016 CAD (coronary artery disease) 10/16/2015 Encounters Date Type Specialty Care Team Description 03/03/2018 Emergency Emergency Medicine Franklyn Dawson MD 03/01/2018 Emergency Emergency Medicine Macrina Gómez MD Urinary retention (Primary Dx);Right lower quadrant abdominal pain;Renal insufficiency;Hypertens kaley urgency 03/01/2018 Orders Only General Internal Medicine after 05/04/2017 Family History Medical History Relation Name Comments [...] Color, UA Yellow Clarity, UA Hazy Specific [place], UA 1.012 1.001 - 1.035 pH, UA [...] Yusuf Specimen Performing Laboratory Urine - Urine, [address] [address] Urine culture (03/03/2018 11:08 AM) Component Value Ref Range Result 70-79,000 col/mL Pseudomonas aeruginosa (A) Specimen Performing Laboratory Urine - Urine, [address] [address] Organism Antibiotic Method Susceptibility Pseudomonas aeruginosa Amikacin [...] normal. ST segments abnormal. T waves abnormal. [place] is normal. Other findings: no other findings. Clinical Impression: non-specific ECG and abnormal ECG CT abdomen pelvis without contrast (03/01/2018 1:46 PM) Specimen Performing Laboratory Neurosearch Narrative FINAL REPORT ABDOMINAL AND PELVIS CT [...] Report Verified Date/Time:03/01/2018 15:15:27 Reading Location: [facility] C013 CT Body Reading Room Procedure Note [...] Verified Date/Time: 03/01/2018 15:15:27 Reading Location: [facility] C013Y CT Body Reading Room with platelet [...] Specimen Performing Laboratory Blood - Arm, [address] [address] CBC with platelet count + automated diff (03/01/2018 10:29 AM) Specimen Performing Laboratory Blood Narrative The following orders were created for panel order CBC with platelet count + automated diff. Procedure Abnormality Status --------- ------ CBC with platelet count ...[[id number]]AbnormalFinal result Please view results for these tests on the individual orders. Lipase (03/01/2018 10:29 AM) Component Value Ref Range Lipase 61 8 - 78 U/L Specimen Performing Laboratory Blood - Arm, [address] [address] Amylase (03/01/2018 10:29 AM) Component Value Ref Range Amylase 113 25 - 125 U/L Specimen Performing Laboratory Blood - Arm, [address] [address] Hepatic function panel (03/01/2018 10:29 AM) Component Value Ref Range Protein, Total 6.8 6.0 - 8.3 gm/dL Albumin 3.5 3.5 - 5.0 g/dL Total Bilirubin 0.4 0.2 - 1.2 mg/dL Bilirubin, Direct 0.2 0.1 - 0.5 mg/dL Alkaline Phosphatase 78 40 - 150 U/L AST 20 5 - 34 U/L ALT 21 6 - 55 U/L Specimen Performing Laboratory Blood - Arm, [address] [address] Basic Metabolic Panel (03/01/2018 10:29 AM) Component [...] Specimen Performing Laboratory Blood - Arm, [address] [address] ECG 12 lead (03/01/2018 10:20 AM) Specimen Performing Laboratory GE MUSE Narrative Ventricular Rate 62 BPM Atrial Rate 62 BPM P-R Interval 178 ms QRS Duration 96 ms Q-T Interval 452 ms QTC Calculation(Bazett) 458 ms P [place] 66 degrees R [place] -24 degrees T [place] 140 degrees Normal sinus rhythm Possible Left [...] 452 ms QTC Calculation(Bazett) 458 ms P [place] 66 degrees R [place] -24 degrees T [place] 140 degrees Normal sinus rhythm Possible Left [...] STEFFI (1904) on 03/02/2018 6:54:28 AM after 05/04/2017
--- OUTSIDE RECORDS SUMMARY | 2018-05-05 23:29 | XMS REPORT ---
:1940 [facility] Address [address] [place] [address] Dr. Manley [address] [place] [id number] Care Team Providers Name Role Phone LAZRODNEY [...] Comments CULTURE (BEAKER) (test PSEUDOMONAS 70-79,000 col/mL awhu=4959) AERUGINOSA Pseudomonas aeruginosa Amikacin (test code=1) Susceptible [...] code=25) Resistant <0 or >4 URINALYSIS W/ [id number] 12:06:00 Test Item Value Reference Range Comments COLOR (BEAKER) (test tzyt=687) Yellow CLARITY (BEAKER) (test cacj=485) Hazy SPECIFIC GRAVITY UA (BEAKER) (test arsn=298) 1.012 1.001-1.035 PH UA (BEAKER) (test fshh=044) 6.0 5.0-8.0 PROTEIN UA (BEAKER) (test etmr=062) 600 mg/dL Negative GLUCOSE UA (BEAKER) (test czad=411) 100 mg/dL Negative KETONES UA (BEAKER) (test hiqh=940) Negative Negative BILIRUBIN UA (BEAKER) (test qpmo=950) Negative Negative BLOOD UA (BEAKER) (test jcfp=343) Moderate Negative NITRITE UA (BEAKER) (test sehj=022) Negative Negative LEUKOCYTE ESTERASE UA (BEAKER) (test rdnb=602) Small Negative UROBILINOGEN UA (BEAKER) (test iieu=440) 0.2 mg/dL 0.2-1.0 RBC UA (BEAKER) (test ltao=739) 27 /HPF WBC UA (BEAKER) (test ahiz=549) 12 /HPF BACTERIA (BEAKER) (test dtws=856) Occasional MUCUS (BEAKER) (test fmgz=4884) Rare SQUAMOUS EPITHELIAL (BEAKER) (test mffh=870) < /HPF HYALINE CASTS (BEAKER) (test jmea=971) 2 /LPF GRANULAR CASTS (BEAKER) (test wtul=200) 5 /LPF SOURCE(BEAKER) (test clrs=8364) Urine, Yusuf CT, [id number] 15:15:00Reason for exam:->ABDOMINAL PAINWhat is the patient's [...] Verified Date/ Time: 03/01/2018 15:15:27 Reading Location: [address] Body Reading Room BASIC METABOLIC [id number] 11:04:00 Test Item Value Reference Range Comments SODIUM (BEAKER) (test 136 meq/L 136-145 hwta=630) POTASSIUM (BEAKER) (test 4.0 meq/L 3.5-5.1 trku=511) CHLORIDE (BEAKER) (test 108 meq/L 98-107 fhmo=060) CO2 (BEAKER) (test 15 meq/L 22-29 znmp=552) BLOOD UREA NITROGEN 80 mg/dL 7-21 (BEAKER) (test vbaw=436) CREATININE (BEAKER) (test 4.79 mg/dL 0.57-1.25 imjp=513) GLUCOSE RANDOM (BEAKER) 84 mg/dL 70-105 (test ydyw=711) CALCIUM (BEAKER) (test 8.9 mg/dL 8.4-10.2 kooh=751) EGFR (BEAKER) (test 12 mL/min/1.73 sq m ESTIMATED GFR IS NOT tlge=8110) ACCURATE CREATININE CLEARANCE IN PREDICTING GLOMERULAR FILTRATION RATE. ESTIMATED GFR IS NOT APPLICABLE FOR DIALYSIS PATIENTS. [id number] 11:02:00 Test Item Value Reference Range Comments LIPASE (BEAKER) (test jijc=079) 61 U/L 8-78 [id number] 11:02:00 Test Item Value Reference Range Comments AMYLASE (BEAKER) (test tlwp=568) 113 U/L 25-125 HEPATIC FUNCTION [id number] 11:02:00 Test Item Value Reference Range Comments TOTAL PROTEIN (BEAKER) (test yanl=577) 6.8 gm/dL 6.0-8.3 ALBUMIN (BEAKER) (test ghgb=6948) 3.5 g/dL 3.5-5.0 BILIRUBIN TOTAL (BEAKER) (test xwuj=996) 0.4 mg/dL 0.2-1.2 BILIRUBIN DIRECT (BEAKER) (test hpqc=852) 0.2 mg/dL 0.1-0.5 ALKALINE PHOSPHATASE (BEAKER) (test hieh=121) 78 U/L 40-150 AST (SGOT) (BEAKER) (test fcoo=173) 20 U/L 5-34 ALT (SGPT) (BEAKER) (test sqkj=183) 21 U/L 6-55 URINALYSIS W/ [id number] 11:01:00 Test Item Value Reference Range Comments COLOR (BEAKER) (test jxgl=671) Light Yellow CLARITY (BEAKER) (test cace=177) Clear SPECIFIC GRAVITY UA (BEAKER) (test fywv=540) 1.006 1.001-1.035 PH UA (BEAKER) (test jbrd=506) 6.0 5.0-8.0 PROTEIN UA (BEAKER) (test xmbm=159) 300 mg/dL Negative GLUCOSE UA (BEAKER) (test rxic=097) 30 mg/dL Negative KETONES UA (BEAKER) (test valc=623) Negative Negative BILIRUBIN UA (BEAKER) (test wwkf=741) Negative Negative BLOOD UA (BEAKER) (test iomk=252) Trace Negative NITRITE UA (BEAKER) (test jtsm=601) Negative Negative LEUKOCYTE ESTERASE UA (BEAKER) (test xgfd=275) Negative Negative UROBILINOGEN UA (BEAKER) (test qtgf=105) 0.2 mg/dL 0.2-1.0 RBC UA (BEAKER) (test ownb=481) < /HPF WBC UA (BEAKER) (test ftoj=544) < /HPF BACTERIA (BEAKER) (test cpva=618) Rare MUCUS (BEAKER) (test dddv=8364) Rare SOURCE(BEAKER) (test gwdh=8862) Urine, Voided CBC W/PLT COUNT & AUTO [id number] 10:49:00 Test Item Value Reference Range Comments WHITE BLOOD CELL COUNT (BEAKER) (test lkey=614) 5.6 K/ L 3.5-10.5 RED BLOOD CELL COUNT (BEAKER) (test vaog=331) 3.10 M/ L 4.63-6.08 HEMOGLOBIN (BEAKER) (test uqsh=170) 9.8 GM/DL 13.7-17.5 HEMATOCRIT (BEAKER) (test yues=623) 29.7 % 40.1-51.0 MEAN CORPUSCULAR VOLUME (BEAKER) (test cyjw=216) 95.8 fL 79.0-92.2 MEAN CORPUSCULAR HEMOGLOBIN (BEAKER) (test 31.6 pg 25.7-32.2 ukrg=562) MEAN CORPUSCULAR HEMOGLOBIN CONC (BEAKER) (test 33.0 GM/DL 32.3-36.5 wwbs=519) RED CELL DISTRIBUTION WIDTH (BEAKER) (test 14.0 % 11.6-14.4 jdjp=637) PLATELET COUNT (BEAKER) (test edgu=504) 171 K/CU MM 150-450 MEAN PLATELET VOLUME (BEAKER) (test ybey=373) 11.1 fL 9.4-12.4 NUCLEATED RED BLOOD CELLS (BEAKER) (test 0 /100 WBC 0-0 svvx=156) NEUTROPHILS RELATIVE PERCENT (BEAKER) (test 69 % hnek=209) LYMPHOCYTES RELATIVE PERCENT (BEAKER) (test 16 % kdie=867) MONOCYTES RELATIVE PERCENT (BEAKER) (test 10 % bmbu=495) EOSINOPHILS RELATIVE PERCENT (BEAKER) (test 4 % tvzy=331) BASOPHILS RELATIVE PERCENT (BEAKER) (test 1 % aqgr=633) NEUTROPHILS ABSOLUTE COUNT (BEAKER) (test 3.88 K/ L 1.78-5.38 udla=679) LYMPHOCYTES ABSOLUTE COUNT (BEAKER) (test 0.88 K/ L 1.32-3.57 tqqa=150) MONOCYTES ABSOLUTE COUNT (BEAKER) (test 0.56 K/ L 0.30-0.82 bsmc=930) EOSINOPHILS ABSOLUTE COUNT (BEAKER) (test 0.25 K/ L 0.04-0.54 yfll=679) BASOPHILS ABSOLUTE COUNT (BEAKER) (test 0.03 K/ L 0.01-0.08 pmgn=233) IMMATURE GRANULOCYTES-RELATIVE PERCENT (BEAKER) 0 % 0-1 (test kdzh=3099)
[2018-05-06] MEDS ORDERED: CLOPIDOGREL 75 MG TABLET ONE (01:27)
[2018-05-06 01:46] LABS: Protime INR 1.18
[2018-05-06 01:51] LABS: Absolute Lymphocytes (CBC) 0.7 K/uL (0.7-4.9); Absolute Monocytes 0.5 K/uL (0.1-1.3); Absolute Neutrophil 3.4 K/uL (1.8-8.0); Basophils % 0.5 % (0-1.3); Eosinophils % 1.4 % (0-4.4); Hematocrit 23.3 % (39.6-49.0); Lymphocytes % 14.3 % (15.3-44.8); MCH 32.1 pg (27.0-35.0); MCV 95.1 fL (80-100); MPV 8.4 fL (7.6-11.3); Monocytes % 10.8 % (3.3-12.3); RBC Red Blood Cell Count 2.45 M/uL (4.33-5.43)
[2018-05-06 02:43] LABS: Bilirubin Direct 0.2 mg/dL (0-0.2); Bilirubin Total 0.4 mg/dL (0.2-1.0); Magnesium 2.2 mg/dL (1.8-2.4); Potassium 4.6 mmol/L (3.5-5.1); Protein, Total 6.7 g/dL (6.4-8.2); Troponin (Emerg Dept Use Only) 0.04 ng/mL (0.0-0.045)
[2018-05-06 03:27] LABS: Urine Blood 1+ (NEG); Urine Glucose TRACE (NEG); Urine Protein 3+ (NEG); Urine Specific Gravity 1.025 (1.005-1.030)
[2018-05-06] MEDS ORDERED: MAGNE/ALUM HYDROXD 30 ML UCUP ONE (03:31)
[2018-05-06] MEDS ORDERED: LIDOCAINE VISCOUS 2% SOLN 15 ML UDC ONE (03:31)
[2018-05-06] MEDS ORDERED: PANTOPRAZOLE 40 MG INJ ONE (03:31)
--- NOTE | 2018-05-06 03:52 | ER ---
Nurse's Notes [facility] Name: Blaise Quarles Age: 77 yrs Sex: Male : 1940 Arrival Date: 05/05/2018 Time: 23:32 Bed 2 Private MD: Diagnosis: Unspecified combined systolic (congestive) and diastolic (congestive) heart failure;End stage renal disease Presentation: 05/05 23:32 Presenting complaint: EMS states: Tone up for difficulty breathing. Patient reported to ao be in the hospital not long ago and started on dialysis few week ago. Bilateral edema noted. Transition of care: patient was not received from another setting of care. Onset of symptoms is unknown. Risk Assessment: Do you want to hurt yourself or someone else? Patient reports no desire to harm self or others. Initial Sepsis Screen: Does the patient meet any 2 criteria? No. Patient's initial sepsis screen is negative. Does the patient have a suspected source of infection? No. Patient's initial sepsis screen is negative. Care prior to arrival: None. 23:32 Method Of Arrival: EMS: [facility] ao 23:32 Acuity: SARATH 2 ao Triage Assessment: 23:45 General: Appears in no apparent distress. uncomfortable, Behavior is anxious. ao Respiratory: Reports shortness of breath at rest Onset: The symptoms/episode began/occurred at an unknown time. the patient has moderate shortness of breath. Historical: - Allergies: 23:42 Aspirin; ao - Home Meds: 23:42 amlodipine 10 mg tab 1 tab once daily [Active]; atorvastatin 10 mg Oral tab 1 tab ao nightly [Active]; glipizide 10 mg Oral tab 1 tab 2 times per day [Active]; clonazepam 0.25 mg Oral TbDL 1 tab 2 times per day [Active]; torsemide 20 mg oral tab 1 tab once daily [Active]; - PMHx: 23:42 Anemia; CAD; cardiomegaly; CHF; chronic renal disease; Cirrhosis; Diabetes - IDDM; High ao Cholesterol; Hypertension; Myocardial infarction; pleural effusion; pulmonary nodule; pumonary nodule; Visually impared; Dialysis; - PSHx: 23:42 CABG; Heart stents; ao - Immunization history:: Adult Immunizations up to date. - Social history:: Smoking status: unknown. - Ebola Screening: : Patient negative for fever greater than or equal to 101.5 degrees Fahrenheit, and additional compatible Ebola Virus Disease symptoms Patient denies exposure to infectious person Patient denies travel to an Ebola-affected area in the 21 days before illness onset. Screenin:44 Abuse screen: Denies threats or abuse. Denies injuries from another. Nutritional ao screening: No deficits noted. Tuberculosis screening: No symptoms or risk factors identified. Fall Risk None identified. Assessment: 23:42 General: Appears in no apparent distress. uncomfortable, Behavior is appropriate for ao age, anxious. Pain: Denies pain. Neuro: Level of Consciousness is awake, alert, obeys commands, Oriented to person, place, time, situation, Moves all extremities. Full function Speech is normal. Cardiovascular: Heart tones S1 S2 Capillary refill is > 3 seconds is sluggish Rhythm is regular. Respiratory: Airway is patent Respiratory effort is labored, Respiratory pattern is regular, Breath sounds are diminished bilaterally. GI: Abdomen is non-distended. : No signs and/or symptoms were reported regarding the genitourinary system. EENT: No signs and/or symptoms were reported regarding the EENT system. Derm: Skin is dry, Skin is pink, warm \T\ dry. normal, Skin temperature is warm. Musculoskeletal: Circulation, motion, and sensation intact. Range of motion: intact in all extremities, Swelling Bilateral edema. 05/06 00:54 Reassessment: Patient appears in no apparent distress at this time. Patient and/or ao family updated on plan of care and expected duration. Pain level reassessed. Waiting Lab results. 02:31 Reassessment: Patient appears in no apparent distress at this time. Patient sleeping ao with no SS of distress. Family at bedside. 04:07 Reassessment: Patient appears in no apparent distress at this time. Patient and/or ao family updated on plan of care and expected duration. Pain level reassessed. Patient to stay in the hospital. patient agree with POC. Dr Morfin at bedside. 05:04 Reassessment: Report called to HUONG Sarah. ao Vital Signs: 05/05 23:25 BP 170 / 78; Pulse 70; Resp 15; Temp 97.3(O); Pulse Ox 80% on R/A; Weight 54.88 kg (R); ao Height 5 ft. 5 in. (165.10 cm); Pain 0/10; 23:38 Pulse Ox 95% on 3 lpm NC; ao 05/06 00:30 BP 166 / 78; Pulse 76; Resp 14; Pulse Ox 94% on 3 lpm NC; lp1 00:54 BP 166 / 78; Pulse 71; Resp 15; Pulse Ox 94% on 3 lpm NC; ao 01:09 BP 155 / 72; Pulse 72; Resp 15; Pulse Ox 93% on 3 lpm NC; lp1 02:31 BP 167 / 79; Pulse 75; Resp 16; Pulse Ox 91% on 3 lpm NC; ao 04:06 BP 163 / 91; Pulse 75; Resp 20; Pulse Ox 94% on 3 lpm NC; ao 05/05 23:25 Body Mass Index 20.14 (54.88 kg, 165.10 cm) ao ED Course: 05/05 23:32 Patient arrived in ED. ao 23:36 Triage completed. ao 23:37 Arm band placed on right wrist. Patient placed in an exam room, on a stretcher, on ao oxygen, on air sampling and monitoring, on pulse oximetry, Patient notified of wait time. 23:45 Ron Ochoa PA is PHCP. cp 23:45 Matthew Casiano MD is Attending Physician. cp 23:45 Patient has correct armband on for positive identification. compliance monitor on. Pulse ao ox on. NIBP on. 05/06 00:03 Lexx Dominguez, HUONG is Primary Nurse. ao 00:04 Inserted saline lock: 20 gauge in left antecubital area, using aseptic technique. Blood lp1 collected. 00:14 X-ray completed. Portable x-ray completed in exam room. Patient tolerated procedure kw well. 00:15 XRAY Chest (1 view) In Process Unspecified. EDMS 00:58 Andreas Pal MD is Attending Physician. cp 01:52 Notified Nurse Practitioner and/or Physician Steel Crane Operator of a critical lab result(s), Hgb lp1 7.9. 03:50 Loren Copeland MD is Hospitalizing Provider. cp 05:05 No provider procedures requiring assistance completed. Patient admitted, IV remains in ao place. Administered Medications: 01:27 Drug: PlaVIX 75 mg Route: PO; rr5 04:12 Follow up: Response: No adverse reaction ao 03:27 Drug: ProTONIX 40 mg Route: IVP; Site: left antecubital; ao 04:12 Follow up: Response: No adverse reaction ao 03:32 Drug: GI Cocktail without - (Maalox Suspension 30 ml, Lidocaine Liquid 2 % 15 ao ml) Route: PO; 04:12 Follow up: Response: No adverse reaction ao 04:08 Drug: Lasix 40 mg Route: IVP; Site: left antecubital; ao 05:08 Follow up: Response: No adverse reaction ao Outcome: 03:51 Decision to Hospitalize by Provider. cp 05:05 Condition: stable ao 05:06 Admitted to Tele accompanied by tech, room 427, with oxygen, on monitor, with chart, ao Report called to HUONG Sarah 05:06 Instructed on the need for admit. 05:07 Patient left the ED. ao Signatures: Dispatcher [employer] EDKelley Becker Laura, RN RN lp1 Ron Ochoa PA PA cp Ortiz, Alex RN RN Sergio Murray RN RN rr5
--- NOTE | 2018-05-06 03:52 | EDPHYS ---
Physician Documentation [facility] Name: Blaise Quarles Age: 77 yrs Sex: Male : 1940 Arrival Date: 05/05/2018 Time: 23:32 Bed 2 Private MD: ED Physician Andreas Pal HPI: 05/05 23:53 This 77 yrs old Male presents to ER via EMS with complaints of Breathing cp Difficulty. 23:53 The patient has shortness of breath at rest. Onset: The symptoms/episode began/occurred cp yesterday. Duration: The symptoms are continuous, and are steadily getting worse. Associated signs and symptoms: Pertinent negatives: chest pain, productive cough, diaphoresis, fever, hemoptysis, vomiting. Severity of symptoms: in the emergency department the symptoms are unchanged despite home interventions. 23:53 The patient has been recently seen at the [facility] Emergency cp Department, yesterday, for similar complaints left AMA after recommendation by ED physician for admission. Historical: - Allergies: 23:42 Aspirin; ao - Home Meds: 23:42 amlodipine 10 mg tab 1 tab once daily [Active]; atorvastatin 10 mg Oral tab 1 tab ao nightly [Active]; glipizide 10 mg Oral tab 1 tab 2 times per day [Active]; clonazepam 0.25 mg Oral TbDL 1 tab 2 times per day [Active]; torsemide 20 mg oral tab 1 tab once daily [Active]; - PMHx: 23:42 Anemia; CAD; cardiomegaly; CHF; chronic renal disease; Cirrhosis; Diabetes - IDDM; High ao Cholesterol; Hypertension; Myocardial infarction; pleural effusion; pulmonary nodule; pumonary nodule; Visually impared; Dialysis; - PSHx: 23:42 CABG; Heart stents; ao - Immunization history:: Adult Immunizations up to date. - Social history:: Smoking status: unknown. - Ebola Screening: : Patient negative for fever greater than or equal to 101.5 degrees Fahrenheit, and additional compatible Ebola Virus Disease symptoms Patient denies exposure to infectious person Patient denies travel to an Ebola-affected area in the 21 days before illness onset. ROS: 23:57 Constitutional: Negative for body aches, chills, fever, poor PO intake. cp 23:57 Eyes: Negative for injury, pain, redness, and discharge. cp 23:57 ENT: Negative for drainage from ear(s), ear pain, sore throat, difficulty swallowing, difficulty handling secretions. 23:57 Cardiovascular: Positive for edema, Negative for chest pain, palpitations. 23:57 Respiratory: Positive for shortness of breath, at rest. Negative for cough, wheezing. 23:57 Abdomen/GI: Negative for abdominal pain, nausea, vomiting, and diarrhea, anorexia, black/tarry stool, rectal bleeding. 23:57 Back: Negative for pain at rest, pain with movement. 23:57 Skin: Negative for cellulitis, rash. 23:57 Neuro: Negative for altered mental status, headache, syncope, near syncope. 23:57 All other systems are negative. Exam: 05/06 00:10 Constitutional: The patient appears in no acute distress, alert, awake, cp non-diaphoretic, non-toxic, well developed, well nourished. 00:10 Head/Face: Normocephalic, atraumatic. cp 00:10 Eyes: Periorbital structures: appear normal, Pupils: equal, round, and reactive to light and accomodation, Extraocular movements: intact throughout, Conjunctiva: normal, no exudate, no injection, Sclera: no appreciated abnormality, Lids and lashes: appear normal, bilaterally. 00:10 ENT: External ear(s): are unremarkable, Nose: is normal, Mouth: Lips: moist, Oral mucosa: moist, Posterior pharynx: is normal, airway is patent, no erythema, no exudate. 00:10 Neck: ROM/movement: is normal, is supple, without pain, no range of motions limitations, no meningismus, no nuchal rigidity. 00:10 Chest/axilla: Inspection: dialysis catheter noted right upper chest, Palpation: crepitus, is not appreciated, tenderness, is not appreciated. 00:10 Cardiovascular: Rate: normal, Rhythm: regular, Pulses: Pulses are 2+ in right radial artery and left radial artery. Edema: bilateral upper extremities and bilateral lower extremities, JVD: is not appreciated. 00:10 Respiratory: mild respiratory distress is noted, Respirations: labored breathing, that is mild, intercostal retractions, are absent, shallow respirations, that is mild. 00:10 Respiratory: Breath sounds: decreased breath sounds, that are moderate, are located in both bases, stridor, is not appreciated, wheezing: is not appreciated. 00:10 Abdomen/GI: Inspection: abdomen appears normal, Bowel sounds: active, all quadrants, Palpation: soft, in all quadrants, mild abdominal tenderness, in all quadrants. 00:10 Back: pain, is absent, ROM is normal. 00:10 Skin: cellulitis, is not appreciated, no rash present. 00:10 Neuro: Orientation: to person, place \T\ time. Mentation: is normal, Cerebellar function: is grossly normal, Motor: moves all fours, strength is normal, Sensation: no obvious gross deficits, Gait: not tested. 00:20 ECG was reviewed by the Attending Physician. cp Vital Signs: 05/05 23:25 BP 170 / 78; Pulse 70; Resp 15; Temp 97.3(O); Pulse Ox 80% on R/A; Weight 54.88 kg (R); ao Height 5 ft. 5 in. (165.10 cm); Pain 0/10; 23:38 Pulse Ox 95% on 3 lpm NC; ao 05/06 00:30 BP 166 / 78; Pulse 76; Resp 14; Pulse Ox 94% on 3 lpm NC; lp1 00:54 BP 166 / 78; Pulse 71; Resp 15; Pulse Ox 94% on 3 lpm NC; ao 01:09 BP 155 / 72; Pulse 72; Resp 15; Pulse Ox 93% on 3 lpm NC; lp1 02:31 BP 167 / 79; Pulse 75; Resp 16; Pulse Ox 91% on 3 lpm NC; ao 04:06 BP 163 / 91; Pulse 75; Resp 20; Pulse Ox 94% on 3 lpm NC; ao 05/05 23:25 Body Mass Index 20.14 (54.88 kg, 165.10 cm) ao MDM: 05/05 23:51 Patient medically screened. cp 05/06 01:00 Differential diagnosis: Anemia asthma, Bronchitis CHF exacerbation, Chronic Obstructive cp Pulmonary Disease Myocardial Infarction pneumonia, pulmonary edema, Unstable Angina. 03:20 Data reviewed: vital signs, nurses notes, lab test result(s), EKG, radiologic studies, cp plain films. 03:20 Test interpretation: by ED physician or midlevel provider: ECG, plain radiologic cp studies. Counseling: I had a detailed discussion with the patient and/or guardian regarding: the historical points, exam findings, and any diagnostic results supporting the discharge/admit diagnosis, the presence of at least one elevated blood pressure reading (>120/80) during this emergency department visit, lab results, radiology results, the need for further work-up and treatment in the hospital. Response to treatment: the patient's symptoms have mildly improved after treatment. 05/05 23:53 Order name: Basic Metabolic Panel; Complete Time: 03:16 cp 05/06 03:17 Interpretation: Normal except: BUN 53; CRE 4.40; GFR 13; CA 8.3. cp 05/05 23:53 Order name: CBC with Diff; Complete Time: 01:52 cp 05/06 01:56 Interpretation: Normal except: RBC 2.45; HGB 7.9; HCT 23.3; RDW 16.1; LYM% 14.3. 05/05 23:53 Order name: LFT's; Complete Time: 03:16 05/06 03:17 Interpretation: Normal except: ALB 3.0; GLOB 3.7; A/G 0.8. 05/05 23:53 Order name: Magnesium; Complete Time: 03:16 cp 05/05 23:53 Order name: NT PRO-BNP; Complete Time: 03:16 05/06 03:17 Interpretation: Abnormal: NT PRO-BNP 34209. 05/05 23:53 Order name: PT-INR; Complete Time: 01:52 cp 05/06 01:56 Interpretation: Abnormal: PT 13.9. 05/05 23:53 Order name: Troponin (emerg Dept Use Only); Complete Time: 03:16 05/06 03:18 Interpretation: TROPED 0.04; Reviewed. 05/05 23:53 Order name: XRAY Chest (1 view) 05/06 01:54 Order name: Type And Screen lp1 05/06 03:19 Order name: Urine Dipstick--Ancillary (enter results); Complete Time: 03:51 mt 05/06 03:57 Order name: Extremity Venous Uni Ltd EDMS 05/05 23:53 Order name: EKG; Complete Time: 23:54 cp 05/05 23:53 Order name: Cardiac monitoring; Complete Time: 00:03 cp 05/05 23:53 Order name: EKG - Nurse/Tech; Complete Time: 00:18 cp 05/05 23:53 Order name: IV Saline Lock; Complete Time: 00:03 cp 05/05 23:53 Order name: Labs collected and sent; Complete Time: 00:03 cp 05/05 23:53 Order name: O2 Per Protocol; Complete Time: 00:03 cp 05/05 23:53 Order name: O2 Sat Monitoring; Complete Time: 00:04 cp EC:20 Rate is 76 beats/min. Rhythm is regular. IL interval is normal. QRS interval is normal. cp QT interval is normal. T waves are Inverted in leads I, II, aVL. Interpreted by me. Reviewed by me. Administered Medications: 01:27 Drug: PlaVIX 75 mg Route: PO; rr5 04:12 Follow up: Response: No adverse reaction ao 03:27 Drug: ProTONIX 40 mg Route: IVP; Site: left antecubital; ao 04:12 Follow up: Response: No adverse reaction ao 03:32 Drug: GI Cocktail without - (Maalox Suspension 30 ml, Lidocaine Liquid 2 % 15 ao ml) Route: PO; 04:12 Follow up: Response: No adverse reaction ao 04:08 Drug: Lasix 40 mg Route: IVP; Site: left antecubital; ao 05:08 Follow up: Response: No adverse reaction ao Disposition: 05/06/18 03:51 Hospitalization ordered by Loren Copeland for Inpatient Admission. Preliminary diagnosis are Unspecified combined systolic (congestive) and diastolic (congestive) heart failure, End stage renal disease. - Bed requested for Telemetry/MedSurg (Inpatient). - Status is Inpatient Admission. ao - Condition is Fair. - Problem is an acute exacerbation. - Symptoms have improved. UTI on Admission? No Addendum: 05/11/2018 09:47 Co-signature as Attending Physician, Andreas Pal MD available for consultation at p s1 all times . Signatures: Dispatcher [employer] EDMS oRn Ochoa PA PA cp Ortiz, Alex, HUONG RN Brigitte Thomson mt, Phillip, MD MD ps1 Roque, Raymond, RN RN rr5 Corrections: (The following items were deleted from the chart) 05/06 03:17 03:17 Normal except: BUN 53; CRE 4.40; GFR 13. cp cp 04:45 03:51 Hospitalization Ordered by Loren Copeland MD for Inpatient Admission. Preliminary mt diagnosis is Unspecified combined systolic (congestive) and diastolic (congestive) heart failure; End stage renal disease. Bed requested for Telemetry/MedSurg (Inpatient). Status is Inpatient Admission. Condition is Fair. Problem is an acute exacerbation. Symptoms have improved. UTI on Admission? No. cp 05:07 04:45 05/06/2018 03:51 Hospitalization Ordered by Loren Copeland MD for Inpatient ao Admission. Preliminary diagnosis is Unspecified combined systolic (congestive) and diastolic (congestive) heart failure; End stage renal disease. Bed requested for Telemetry/MedSurg (Inpatient). Status is Inpatient Admission. Condition is Fair. Problem is an acute exacerbation. Symptoms have improved. UTI on Admission? No. mt
[2018-05-06] MEDS ORDERED: FUROSEMIDE 40 MG/4 ML VIAL ONE (04:11)
--- NOTE | 2018-05-06 04:30 | P.HP ---
Certification for Inpatient Patient admitted to: Inpatient With expected LOS: >2 Midnights Practitioner: I am a practitioner with admitting privileges, knowledge of patient current condition, hospital course, and medical plan of care. Services: Services provided to patient in accordance with Admission requirements found in Title 42 Section 412.3 of the Code of Federal Regulations Patient History Date of Service: 05/06/18 Reason for admission: Acute on chronic diastolic CHF History of Present Illness: Mr. Quarles is a 77-year-old male with history of CAD status post CABG, chronic anemia, insulin-dependent diabetes mellitus, end stage renal disease on HD, hypertension, who has been feeling progressively short of breath for the last couple of days, and he was complaining of increasing swelling in lower extremities and upper extremities on Thursday he went to his dialysis center, but before to start he was sent to the because he was very dyspneic. Despite he was advised to be admitted to the hospital due to CHF exacerbation, he went home AMA. Today his symptoms got worse, and he came back to the ER for further evaluation. No history of fever or chills. No cough. Chest-x-ray remarkable for bilateral infiltrate consistent with CHF exacerbation. Allergies aspirin Allergy (Verified 01/11/18 15:42) Nausea/Vomiting No Known Allergies Allergy (Uncoded 01/18/18 10:03) Unknown Home medications list reviewed: Yes Home Medications: Atorvastatin Calcium [Lipitor*] 10 mg PO BEDTIME 12/15/17 Metoprolol Succinate [Toprol Xl*] 50 mg PO DAILY 12/15/17 Amlodipine [Norvasc*] 10 mg PO DAILY 03/15/18 Bumetanide 1 mg PO BID 03/15/18 traMADol HCL [Ultram*] 50 mg PO TID PRN #15 tab 03/16/18 levoFLOXacin [Levaquin*] 250 mg PO Q48H #5 tab 04/16/18 - Past Medical/Surgical History Diabetic: Yes -: COPD -: CHF -: ANEMIA -: CAD -: CARDIOMEGALY -: CRD -: CIRRHOSIS -: IDDM -: HYPERLIPIDEMIA -: [place] -: HTN -: PE -: Repair of left finger fracture -: CABG X3 -: PACEMAKER -: COPD Psychosocial/ Personal History: He is 56 years, has 13 children, he does not work. - Family History Father -: GI disease Notes: none per pt - Social History Smoking Status: Former smoker Alcohol use: No CD- Drugs: No Caffeine use: Yes Place of Residence: Home Review of Systems 10-point ROS is otherwise unremarkable Physical Examination - Physical Exam General: Alert, In no apparent distress HEENT: Atraumatic, PERRLA, Mucous membr. moist/pink, EOMI, Sclerae nonicteric Neck: Supple, 2+ carotid pulse no bruit, No LAD, Without JVD or thyroid abnormality Respiratory: Diminished, Crackles/rales (Bibasilar rales) Cardiovascular: Normal S1 S2, No gallops Gastrointestinal: Normal bowel sounds, No tenderness Musculoskeletal: No tenderness, Swelling (Lower extremity bilateral 2+) Integumentary: No rashes Neurological: Normal speech, Normal strength at 5/5 x4 extr, Normal tone, Normal affect Lymphatics: No axilla or inguinal lymphadenopathy - Studies Laboratory Data (last 24 hrs) 05/06/18 01:30: PT 13.9 H, INR 1.18 05/06/18 01:30: WBC 4.7, Hgb 7.9 L*, Hct 23.3 L, Plt Count 164 05/06/18 01:30: Sodium 137, Potassium 4.6, BUN 53 H, Creatinine 4.40 H D, Glucose 93, Magnesium 2.2, Total Bilirubin 0.4, AST 17, ALT 19, Alkaline Phosphatase 82 Assessment and Plan - Problems (Diagnosis) (1) Acute on chronic diastolic CHF (congestive heart failure) Current Visit: Yes Status: Acute (2) End stage renal disease Current Visit: No Status: Acute (3) Coronary artery disease Onset Date: 07/15/17 Current Visit: No Status: Chronic Qualifiers: Coronary Disease-Associated Artery/Lesion type: [place] artery [place] vs. transplanted heart: [place] heart Associated angina: without angina Qualified Code(s): I25.10 - Atherosclerotic heart disease of [place] coronary artery without angina pectoris (4) Diabetes mellitus Onset Date: 07/15/17 Current Visit: No Status: Chronic Qualifiers: Diabetes mellitus type: type 2 Diabetes mellitus fci insulin use: without terminal operations supervisor use Diabetes mellitus complication status: without complication Qualified Code(s): E11.9 - Type 2 diabetes mellitus without complications (5) Hypertension Onset Date: 02/21/16 Current Visit: No Status: Chronic Qualifiers: Hypertension type: essential hypertension Qualified Code(s): I10 - Essential (primary) hypertension (6) Liver cirrhosis Onset Date: 12/15/17 Current Visit: No Status: Chronic Qualifiers: Hepatic cirrhosis type: unspecified hepatic cirrhosis Ascites presence: without ascites Qualified Code(s): K74.60 - Unspecified cirrhosis of liver (7) Status post coronary artery bypass graft Onset Date: 07/15/17 Current Visit: No Status: Chronic - Plan Patient will be admitted to the hospital due to acute on chronic diastolic CHF. Will continue IV Lasix, however he needs to be dialyzed. Will consult Dr. Jacobson for hemodialysis orders. - Advance Directives Does patient have a Living Will: No Does patient have a Durable POA for Healthcare: No - Code Status/Comfort Care Code Status Assessed: Yes Code Status: Full Code
[2018-05-06] MEDS ORDERED: ACETAMINOPHEN 500 MG TAB PO PRN (05:08)
[2018-05-06] MEDS ORDERED: ONDANSETRON 4 MG/2 ML VIAL IV PRN (05:08)
[2018-05-06] MEDS ORDERED: TRAMADOL HCL 50 MG TAB PO PRN (05:57)
[2018-05-06 06:00] VITALS: BMI 23.1
--- NOTE | 2018-05-06 07:12 | EKG ---
Test Date: 2018-05-06 Test Time: 00:13:49 Biochemical Engineer: URMILA MEASUREMENT RESULTS: Intervals: Rate: 76 AK: 172 QRSD: 96 QT: 402 QTc: 452 [place]: P: 55 AK: 172 QRS: -14 T: 154 INTERPRETIVE STATEMENTS: Normal sinus rhythm Inferior infarct, age undetermined Anteroseptal infarct, age undetermined T wave abnormality, consider lateral ischemia Abnormal ECG Compared to ECG 05/04/2018 13:55:11 T-wave abnormality now present ST (T wave) deviation no longer present Myocardial infarct finding still present Possible ischemia still present Electronically Signed On 05-06-18 07:11:50 CDT by Raheel Zeng
[2018-05-06] MEDS: INSULIN -REGULAR HUMAN 50 UNIT/0.5 ML ML SQ SCH ×3 (07:30→15:43)
[2018-05-06] MEDS ORDERED: HYDRALAZINE HCL 20 MG/ML VIAL IV ONE (08:01)
--- NOTE | 2018-05-06 08:46 | RAD REPORT ---
EXAM DESCRIPTION: RAD - Chest Single View - 05/06/2018 12:16 am CLINICAL HISTORY: SOB Chest pain. COMPARISON: Chest Single View dated 05/04/2018; Chest Single View dated 04/13/2018; Chest Single View dated 04/13/2018; Chest Single View dated 04/08/2018 FINDINGS: Portable technique limits examination quality. Bilateral pleural effusions with patchy opacities in both lung bases remain stable since comparative study. Right-sided venous catheter has its tip in the SVC. Cardiac size is mildly prominent. Sternoto my wires present. IMPRESSION: Stable chest since 05/04/2018.
[2018-05-06 08:52] VITALS: O2SAT 95
--- NOTE | 2018-05-06 10:50 | RAD REPORT ---
EXAM DESCRIPTION: US - UPPER EXTREMITY VENOUS UNILATE - 05/06/2018 10:23 am CLINICAL HISTORY: right arm swelling COMPARISON: Extrem Venous W Compress Orlin dated 08/13/2016 FINDINGS: Right upper extremity venous system was interrogated with Doppler technique. Normal flow, compressibility and augmentation was noted. There is no DVT present. IMPRESSION: No evidence of right upper extremity deep venous thrombosis.
[2018-05-06] MEDS ORDERED: MANNITOL 25% 12.5 GM/50 ML VIAL IV PRN (12:27)
[2018-05-06] MEDS ORDERED: NA CHLORIDE 0.9% 1,000 ML IV PRN (12:27)
[2018-05-06] MEDS ORDERED: EPOETIN ALFA 10,000 UNIT/ML VIAL IV SCH (12:30)
[2018-05-06 12:37] VITALS: TEMP 99
[2018-05-06] MEDS ORDERED: ALBUMIN HUMAN 25% 50 ML IV SCH (13:00)
[2018-05-06] MEDS: AMLODIPINE 10 MG TAB PO SCH ×2 (14:43→16:28)
[2018-05-06] MEDS: TORSEMIDE 20 MG TAB PO SCH ×2 (14:45→16:27)
[2018-05-06] MEDS ORDERED: clonazePAM 0.5 MG TAB PO SCH (15:00)
[2018-05-06 16:30] VITALS: BP 154/69
[2018-05-06] MEDS ORDERED: ATORVASTATIN 10 MG TAB PO SCH (21:00)
--- NOTE | 2018-05-06 21:49 | P.CNS ---
Date of Consult: 05/06/18 Reason for Consult: ESRD/ CHF Requesting Physician: Ivon Mckeon Chief Complaint: Acute on chronic diastolic CHF History of Present Illness: Mr. Quarles is a 77-year-old male with history of CAD status post CABG, chronic anemia, insulin-dependent diabetes mellitus, end stage renal disease on HD, hypertension, who has been feeling progressively short of breath for the last couple of days, and he was complaining of increasing swelling in lower extremities and upper extremities on Thursday he went to his dialysis center, but before to start he was sent to the because he was very dyspneic. Despite he was advised to be admitted to the hospital due to CHF exacerbation, he went home AMA. Today his symptoms got worse, and he came back to the ER for further evaluation. No history of fever or chills. No cough. Chest-x-ray remarkable for bilateral infiltrate consistent with CHF exacerbation. 23:53 This 77 yrs old Male presents to ER via EMS with complaints of Breathing cp Difficulty. 23:53 The patient has shortness of breath at rest. Onset: The symptoms/episode began/occurred cp yesterday. Duration: The symptoms are continuous, and are steadily getting worse. Associated signs and symptoms: Pertinent negatives: chest pain, productive cough, diaphoresis, fever, hemoptysis, vomiting. Severity of symptoms: in the emergency department the symptoms are unchanged despite home interventions. 23:53 The patient has been recently seen at the [facility] Emergency cp Department, yesterday, for similar complaints left AMA after recommendation by ED physician for admission. Allergies aspirin Allergy (Verified 01/11/18 15:42) Nausea/Vomiting No Known Allergies Allergy (Uncoded 01/18/18 10:03) Unknown Home medications list reviewed: Yes Home Medications: Atorvastatin Calcium [Lipitor*] 10 mg PO BEDTIME 12/15/17 Amlodipine [Norvasc*] 10 mg PO DAILY 03/15/18 Glipizide [Glipizide ER] 10 mg PO BID 05/06/18 Torsemide [Demadex] 20 mg PO DAILY 05/06/18 clonazePAM [Clonazepam] 0.5 mg PO TID 05/06/18 - Past Medical/Surgical History Diabetic: Yes -: COPD -: CHF -: ANEMIA -: CAD -: CARDIOMEGALY -: CRD -: CIRRHOSIS -: IDDM -: HYPERLIPIDEMIA -: [place] -: HTN -: PE -: Repair of left finger fracture -: CABG X3 -: PACEMAKER -: COPD Psychosocial/ Personal History: He is 56 years, has 13 children, he does not work. - Family History Father Medical History: GI disease Notes: none per pt - Social History Smoking Status: Unknown if ever smoked Alcohol use: No CD- Drugs: No Caffeine use: Yes Place of Residence: Home Review of Systems 10-point ROS is otherwise unremarkable General: Weakness, Malaise Respiratory: SOB with Excertion Cardiovascular: Edema Neurological: Weakness Physical Examination Temp Pulse Resp BP Pulse Ox 99 F 76 20 154/69 H 93 05/06/18 12:00 05/06/18 16:28 05/06/18 12:00 05/06/18 16:28 05/06/18 12:00 General: In no apparent distress, Oriented x3 HEENT: Normocephalic Neck: Supple, JVD distended Respiratory: Diminished Cardiovascular: Regular rate/rhythm, Edema Gastrointestinal: Soft and benign, Non-distended Musculoskeletal: No clubbing, No contractures, No warmth Integumentary: No rashes, No cyanosis Neurological: Normal speech Laboratory Data (last 24 hrs) 05/06/18 01:30: PT 13.9 H, INR 1.18 05/06/18 01:30: WBC 4.7, Hgb 7.9 L*, Hct 23.3 L, Plt Count 164 05/06/18 01:30: Sodium 137, Potassium 4.6, BUN 53 H, Creatinine 4.40 H D, Glucose 93, Magnesium 2.2, Total Bilirubin 0.4, AST 17, ALT 19, Alkaline Phosphatase 82 Imagings Data: EXAM DESCRIPTION: RAD - Chest Single View - 05/06/2018 12:16 am CLINICAL HISTORY: SOB Chest pain. COMPARISON: Chest Single View dated 05/04/2018; Chest Single View dated 2017; Chest Single View dated 04/13/2018; Chest Single View dated 04/08/2018 FINDINGS: Portable technique limits examination quality. Bilateral pleural effusions with patchy opacities in both lung bases remain stable since comparative study. Right-sided venous catheter has its tip in the SVC. Cardiac size is mildly prominent. Sternotomy wires present. IMPRESSION: Stable chest since 05/04/2018. Conclusions/Impression: A/ ESRD on HD. A/C Diastolic CHF. HTN with CKD/ CHF. DM II with CKD. Anemia in CKD. JUN/ Secondary HyperPTH. P/ Continue current POC and Medications. Arrange for acute HD today. Low sodium diet. Give Epo. Start Vitamin D and Binders. Restart home meds as indicated. No NSAIDs. AM labs. Daily weight. Thank you kindly for the consultation.
== END 2018-05-06 18:00 | disposition left against medical advice (07) | DRG 291 ==
LOC: ER 23:26 → ERHOLD 05-06 03:53 → 4TH 05-06 04:55
PROVIDERS: ADMIT Internal Medicine; ATTEND Family Medicine
DX: I13.2 Hypertensive heart and chronic kidney disease with heart failure and with stage 5 chronic kidney disease, or end stage renal disease (principal); I50.33 Acute on chronic diastolic (congestive) heart failure; N18.6 End stage renal disease; N25.81 Secondary hyperparathyroidism of renal origin; E11.22 Type 2 diabetes mellitus with diabetic chronic kidney disease; Z99.2 Dependence on renal dialysis; Z79.4 Long term (current) use of insulin; I25.10 Atherosclerotic heart disease of native coronary artery without angina pectoris; Z95.1 Presence of aortocoronary bypass graft; I25.2 Old myocardial infarction; Z87.891 Personal history of nicotine dependence; Z95.0 Presence of cardiac pacemaker; K74.60 Unspecified cirrhosis of liver; D63.1 Anemia in chronic kidney disease
CPT/HCPCS: 36415; 71045; 80048; 80053; 80076; 81003; 82962; 83735; 83880; 84484; 85025; 85610; 86850; 86900; 86901; 93005; 93971; 94660; 96374; 96375; 99284; 99285; C9113; J0360; J2405

== ENCOUNTER 2018-05-26 12:53 | Inpatient (IN) | payer OTHER ==
--- OUTSIDE RECORDS SUMMARY | 2018-05-26 12:56 | XMS REPORT ---
:1940 Author Organization [facility] Address [address] [place] [address] Dr. Manley [address] [place] [id number] Care Team Providers Name Role Phone RODNEY [...] Comments CULTURE (BEAKER) (test PSEUDOMONAS 70-79,000 col/mL sdmw=1256) AERUGINOSA Pseudomonas aeruginosa Amikacin (test code=1) Susceptible [...] code=25) Resistant <0 or >4 URINALYSIS W/ [id number] 12:06:00 Test Item Value Reference Range Comments COLOR (BEAKER) (test ewos=950) Yellow CLARITY (BEAKER) (test sgiw=040) Hazy SPECIFIC GRAVITY UA (BEAKER) (test qvcm=995) 1.012 1.001-1.035 PH UA (BEAKER) (test igqp=348) 6.0 5.0-8.0 PROTEIN UA (BEAKER) (test uail=500) 600 mg/dL Negative GLUCOSE UA (BEAKER) (test pvce=501) 100 mg/dL Negative KETONES UA (BEAKER) (test ijsn=105) Negative Negative BILIRUBIN UA (BEAKER) (test etny=239) Negative Negative BLOOD UA (BEAKER) (test bznc=828) Moderate Negative NITRITE UA (BEAKER) (test fqoc=473) Negative Negative LEUKOCYTE ESTERASE UA (BEAKER) (test jqov=792) Small Negative UROBILINOGEN UA (BEAKER) (test oqqi=670) 0.2 mg/dL 0.2-1.0 RBC UA (BEAKER) (test toro=045) 27 /HPF WBC UA (BEAKER) (test koxg=389) 12 /HPF BACTERIA (BEAKER) (test xubd=931) Occasional MUCUS (BEAKER) (test wino=2199) Rare SQUAMOUS EPITHELIAL (BEAKER) (test dvvv=653) < /HPF HYALINE CASTS (BEAKER) (test rgcd=469) 2 /LPF GRANULAR CASTS (BEAKER) (test pvyn=859) 5 /LPF SOURCE(BEAKER) (test peqy=7053) Urine, Yusuf CT, [id number] 15:15:00Reason for exam:->ABDOMINAL PAINWhat is the patient's [...] Verified Date/ Time: 03/01/2018 15:15:27 Reading Location: [address] Body Reading Room BASI METABOLIC [id number] 11:04:00 Test Item Value Reference Range Comments SODIUM (BEAKER) (test 136 meq/L 136-145 xjwu=329) POTASSIUM (BEAKER) (test 4.0 meq/L 3.5-5.1 ived=640) CHLORIDE (BEAKER) (test 108 meq/L 98-107 xluk=299) CO2 (BEAKER) (test 15 meq/L 22-29 eazg=472) BLOOD UREA NITROGEN 80 mg/dL 7-21 (BEAKER) (test fskb=789) CREATININE (BEAKER) (test 4.79 mg/dL 0.57-1.25 evgk=585) GLUCOSE RANDOM (BEAKER) 84 mg/dL 70-105 (test njjj=810) CALCIUM (BEAKER) (test 8.9 mg/dL 8.4-10.2 kdfx=835) EGFR (BEAKER) (test 12 mL/min/1.73 sq m ESTIMATED GFR IS NOT owur=7179) ACCURATE CREATININE CLEARANCE IN PREDICTING GLOMERULAR FILTRATION RATE. ESTIMATED GFR IS NOT APPLICABLE FOR DIALYSIS PATIENTS. [id number] 11:02:00 Test Item Value Reference Range Comments LIPASE (BEAKER) (test frdl=125) 61 U/L 8-78 [id number] 11:02:00 Test Item Value Reference Range Comments AMYLASE (BEAKER) (test dtbf=223) 113 U/L 25-125 HEPATIC FUNCTION [id number] 11:02:00 Test Item Value Reference Range Comments TOTAL PROTEIN (BEAKER) (test sbgg=512) 6.8 gm/dL 6.0-8.3 ALBUMIN (BEAKER) (test gcmy=1559) 3.5 g/dL 3.5-5.0 BILIRUBIN TOTAL (BEAKER) (test kcua=305) 0.4 mg/dL 0.2-1.2 BILIRUBIN DIRECT (BEAKER) (test ccbt=533) 0.2 mg/dL 0.1-0.5 ALKALINE PHOSPHATASE (BEAKER) (test tkdu=827) 78 U/L 40-150 AST (SGOT) (BEAKER) (test aqiy=673) 20 U/L 5-34 ALT (SGPT) (BEAKER) (test bzpo=744) 21 U/L 6-55 URINALYSIS W/ [id number] 11:01:00 Test Item Value Reference Range Comments COLOR (BEAKER) (test sxhx=115) Light Yellow CLARITY (BEAKER) (test uefr=904) Clear SPECIFIC GRAVITY UA (BEAKER) (test jplu=276) 1.006 1.001-1.035 PH UA (BEAKER) (test gwlw=433) 6.0 5.0-8.0 PROTEIN UA (BEAKER) (test emlx=289) 300 mg/dL Negative GLUCOSE UA (BEAKER) (test sqrh=950) 30 mg/dL Negative KETONES UA (BEAKER) (test vath=887) Negative Negative BILIRUBIN UA (BEAKER) (test gpsv=856) Negative Negative BLOOD UA (BEAKER) (test lrlx=150) Trace Negative NITRITE UA (BEAKER) (test whyy=632) Negative Negative LEUKOCYTE ESTERASE UA (BEAKER) (test pmnu=454) Negative Negative UROBILINOGEN UA (BEAKER) (test jclp=141) 0.2 mg/dL 0.2-1.0 RBC UA (BEAKER) (test macf=919) < /HPF WBC UA (BEAKER) (test wiii=712) < /HPF BACTERIA (BEAKER) (test puvn=762) Rare MUCUS (BEAKER) (test danj=6813) Rare SOURCE(BEAKER) (test bhrg=0145) Urine, Voided CBC W/PLT COUNT & AUTO [id number] 10:49:00 Test Item Value Reference Range Comments WHITE BLOOD CELL COUNT (BEAKER) (test pxei=712) 5.6 K/ L 3.5-10.5 RED BLOOD CELL COUNT (BEAKER) (test ewbq=927) 3.10 M/ L 4.63-6.08 HEMOGLOBIN (BEAKER) (test bfiv=530) 9.8 GM/DL 13.7-17.5 HEMATOCRIT (BEAKER) (test qxyx=030) 29.7 % 40.1-51.0 MEAN CORPUSCULAR VOLUME (BEAKER) (test mnga=047) 95.8 fL 79.0-92.2 MEAN CORPUSCULAR HEMOGLOBIN (BEAKER) (test 31.6 pg 25.7-32.2 trtc=087) MEAN CORPUSCULAR HEMOGLOBIN CONC (BEAKER) (test 33.0 GM/DL 32.3-36.5 gcfp=774) RED CELL DISTRIBUTION WIDTH (BEAKER) (test 14.0 % 11.6-14.4 fcrd=000) PLATELET COUNT (BEAKER) (test hbca=153) 171 K/CU MM 150-450 MEAN PLATELET VOLUME (BEAKER) (test dnrb=368) 11.1 fL 9.4-12.4 NUCLEATED RED BLOOD CELLS (BEAKER) (test 0 /100 WBC 0-0 qvvy=554) NEUTROPHILS RELATIVE PERCENT (BEAKER) (test 69 % eygf=033) LYMPHOCYTES RELATIVE PERCENT (BEAKER) (test 16 % ienn=275) MONOCYTES RELATIVE PERCENT (BEAKER) (test 10 % hjxb=392) EOSINOPHILS RELATIVE PERCENT (BEAKER) (test 4 % pxwu=716) BASOPHILS RELATIVE PERCENT (BEAKER) (test 1 % wsdm=278) NEUTROPHILS ABSOLUTE COUNT (BEAKER) (test 3.88 K/ L 1.78-5.38 gxuz=736) LYMPHOCYTES ABSOLUTE COUNT (BEAKER) (test 0.88 K/ L 1.32-3.57 ozpa=105) MONOCYTES ABSOLUTE COUNT (BEAKER) (test 0.56 K/ L 0.30-0.82 rruc=112) EOSINOPHILS ABSOLUTE COUNT (BEAKER) (test 0.25 K/ L 0.04-0.54 frwo=485) BASOPHILS ABSOLUTE COUNT (BEAKER) (test 0.03 K/ L 0.01-0.08 xzbg=612) IMMATURE GRANULOCYTES-RELATIVE PERCENT (BEAKER) 0 % 0-1 (test rxcw=5203)
--- OUTSIDE RECORDS SUMMARY | 2018-05-26 12:56 | XMS REPORT | Clinical Summary ---
:1940 Author Organization [facility] Address [address] [place] [address] Care Team Providers Name Role Phone Moo Primary Care Provider Allergies No Known Allergies Medications Medication Sig Dispensed Refills Start End Date Status Date pantoprazole Take 40 mg by 0 Active (PROTONIX) 40 MG mouth 2 (two) tablet times daily. bimatoprost Place 1 drop into 0 Active (LUMIGAN) 0.01 % both eyes nightly. Drop ophthalmic solution ergocalciferol Take 50,000 Units 0 Active (VITAMIN D2) by mouth once a 50,000 unit week. capsule folic Take 1 tablet by 0 Active acid-multivitamins mouth daily. (B COMPLEX-VITAMIN C-FOLIC ACID) 0.8 mg Tab tablet insulin detemir Inject 10 Units 0 Active (LEVEMIR) 100 subcutaneously unit/mL (3 mL) nightly. InPn injection nitroglycerin Place 0.4 mg under 0 Active (NITROSTAT) 0.4 MG the tongue every 5 SL tablet (five) minutes as needed for Chest pain Put 1 pill under tongue every 5min as needed for chest pain.No more than 3 doses in 15min.Call 911 if pain is unrelieved 5min after 1st dose . lactulose Take 20 g by mouth 0 Active (CHRONULAC) 10 3 (three) times gram/15 mL (15 mL) daily. solution amiodarone Take 1 tablet (200 0 Active (PACERONE) 200 MG mg total) by mouth 7 tablet daily. latanoprost 1 drop nightly. 0 Active (XALATAN) 0.005 % ophthalmic solution glipiZIDE Take 10 mg by 0 Active (GLUCOTROL XL) 10 mouth 2 (two) MG 24 hr tablet times daily . amLODIPine Take 10 mg by 0 Active (NORVASC) 10 MG mouth daily. 8 tablet aspirin 81 MG Take 81 mg by 0 Active chewable tablet mouth daily. 7 atorvastatin Take 10 mg by 0 Active (LIPITOR) 10 MG mouth daily. 8 tablet docusate sodium Take 100 mg by 0 Active (COLACE) 100 MG mouth daily. 8 capsule enalapril Take 10 mg by 0 Active (VASOTEC) 10 MG mouth daily. 8 tablet furosemide (LASIX) Take 40 mg by 0 Active 40 MG tablet mouth daily. 8 metoprolol Take 50 mg by 0 Active (LOPRESSOR) 50 MG mouth 2 (two) tablet times daily. ondansetron Take 4 mg by mouth 0 Active (ZOFRAN) 4 MG as needed. 8 tablet traMADol-acetamino Take 1 tablet by 0 Active phen (ULTRACET) mouth every 8 8 37.5-325 mg per (eight) hours as tablet needed. bumetanide (BUMEX) Take 0.5 mg by 0 Active 0.5 MG tablet mouth 2 (two) times daily. tamsulosin Take 1 capsule 25 capsule 0 Active (FLOMAX) 0.4 mg (0.4 mg total) by 8 Cap 24 hr capsule mouth daily. atorvastatin Take 40 mg by 0 03/01/20 Discontinued (LIPITOR) 40 MG mouth nightly. 18 tablet brimonidine-timolo 1 drop 2 (two) 0 03/01/20 Discontinued l (COMBIGAN) times daily. 18 0.2-0.5 % ophthalmic solution aspirin 81 MG Take 1 tablet (81 30 tablet 07/22/19 chewable tablet mg total) by mouth 7 18 daily. metoprolol Take 1 tablet (25 60 tablet 07/22/19 (LOPRESSOR) 25 MG mg total) by mouth 7 18 tablet 2 (two) times daily. metoprolol Take 50 mg by 0 03/01/20 Discontinued (TOPROL-XL) 50 MG mouth daily. 18 24 hr tablet bumetanide (BUMEX) Take 0.5 mg by 0 03/01/20 Discontinued 0.5 MG tablet mouth daily. 18 bumetanide (BUMEX) Take 1 mg by mouth 0 03/01/20 Discontinued 1 MG tablet daily. 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 Acute pulmonary insufficiency following thoracic surgery 07/04/2016 Acute postoperative pain 07/04/2016 CKD (chronic kidney disease) stage 3, GFR 30-59 ml/min 07/04/2016 Acute blood loss anemia 07/04/2016 Type 2 diabetes mellitus with hyperglycemia, without long-term current use of insulin Foreign body aspiration, initial encounter 07/04/2016 Mucus plugging of bronchi 07/04/2016 NSTEMI (non-ST elevated myocardial infarction) 07/01/2016 CAD (coronary artery disease) 10/16/2015 Encounters Date Type Specialty Care Team Description 03/03/2018 Emergency Emergency Medicine Franklyn Dawson MD 03/01/2018 Emergency Emergency Medicine Macrina Gómez MD Urinary retention (Primary Dx); Right lower quadrant abdominal pain; Renal insufficiency; Hypertensive urgency 03/01/2018 Orders Only General Internal Medicine after 05/25/2017 Family History Medical History Relation Name Comments Unremarkable Mother Relation Name Status Comments Father Mother Alive Social History Tobacco Use Types Packs/Day Years Used Date Never Smoker Alcohol Use Drinks/Week oz/Week Comments No Sex Assigned at Date Recorded Not on file Job Start Date Occupation Industry Not on file Not on file Not on file Travel History Travel Start Travel End No recent travel history available. Last Filed Vital Signs Vital Sign Reading [...] CDT Plan of Treatment Not on file Procedures Procedure Name Priority Date/Time Associated Comments Diagnosis URINALYSIS W/ STAT 03/03/2018 11:08 Results for this MICROSCOPIC AM CDT procedure are in the results section. URINE CULTURE STAT 03/03/2018 11:08 Results for this AM CDT procedure are in the results section. ED ECG INTERPRETATION Routine 03/02/2018 7:12 Results for this AM CDT procedure are in the results section. CT ABDOMEN/PELVIS STAT 03/01/2018 1:46 Results for this WITHOUT IV CONTRAST PM CDT procedure are in the results section. CBC W/PLT COUNT & AUTO STAT 03/01/2018 10:29 Results for this DIFFERENTIAL AM CDT procedure are in the results section. CBC W/PLT COUNT & AUTO STAT 03/01/2018 10:29 Results for this DIFFERENTIAL AM CDT procedure are in the results section. LIPASE STAT 03/01/2018 10:29 Results for this AM CDT procedure are in the results section. AMYLASE STAT 03/01/2018 10:29 Results for this AM CDT procedure are in the results section. HEPATIC FUNCTION PANEL STAT 03/01/2018 10:29 Results for this AM CDT procedure are in the results section. BASIC METABOLIC PANEL STAT 03/01/2018 10:29 Results for this (7) AM CDT procedure are in the results section. ECG 12-LEAD Routine 03/01/2018 10:20 AM CDT Procedure Note - Interface, External Ris In - 03/01/2018 9:57 PM CDT Ventricular Rate 62 BPM Atrial Rate 62 BPM P-R Interval 178 ms QRS Duration 96 ms Q-T Interval 452 ms QTC Calculation(Bazett) 458 ms P Grawn 66 degrees R Grawn -24 degrees T Grawn 140 degrees Normal sinus rhythm Possible Left atrial enlargement Left ventricular hypertrophy Cannot rule out Septal infarct , age undetermined T wave abnormality, consider lateral ischemia Abnormal ECG When compared with ECG of 17-JUL-2016 15:36, ST no longer elevated in Inferior leads T wave amplitude has increased in Anterior leads ECG 12-LEAD STAT 03/01/2018 10:20 AM CDT URINALYSIS W/ MICROSCOPIC STAT 03/01/2018 10:19 AM CDT after 05/25/2017 Results Urinalysis w/Microscopic (03/03/2018 11:08 AM CDT)Only the most recent of2 resultswithin the time period is included. Color, UA Yellow [facility] Clarity, UA Hazy [facility] Specific [place], UA 1.012 1.001 - 1.035 [facility] pH, UA 6.0 5.0 - 8.0 [facility] Protein, UA 600 mg/dL (A) Negative [facility] Glucose, UA 100 mg/dL (A) Negative [facility] Ketones, UA Negative Negative [facility] Bilirubin, UA Negative Negative [facility] Blood, UA Moderate (A) Negative [facility] Nitrite, UA Negative Negative [facility] Leukocytes, UA Small (A) Negative [facility] Urobilinogen, UA 0.2 0.2 - 1.0 mg/dL [facility] RBC, UA 27 /HPF [facility] WBC, UA 12 /HPF [facility] Bacteria, UA Occasional [facility] Mucus Rare [facility] Squam Epithel, UA <1 /HPF [facility] Hyaline Casts, UA 2 /LPF [facility] Granular Casts, UA 5 /LPF [facility] Specimen Source Urine, Yusuf [facility] Specimen Urine - Urine, Yusuf Performing Organization Address City[facility] Phone Number [address] [phone] [place] Urine culture (03/03/2018 11:08 AM CDT) Result PSEUDOMONAS AERUGINOSA (A) [facility] Specimen Urine - Urine, Yusuf Organism Antibiotic Method Susceptibility Pseudomonas aeruginosa Amikacin <=8: Susceptible Pseudomonas aeruginosa Aztreonam 4: Susceptible Pseudomonas aeruginosa Cefepime <=4: Susceptible Pseudomonas aeruginosa Ceftazidime 2: Susceptible Pseudomonas aeruginosa Ciprofloxacin <=0.5: Susceptible Pseudomonas aeruginosa Gentamicin <=2: Susceptible Pseudomonas aeruginosa Levofloxacin <=1: Susceptible Pseudomonas aeruginosa Meropenem 1: Susceptible Pseudomonas aeruginosa Piperacillin <=16: Susceptible Pseudomonas aeruginosa Piperacillin + Tazobactam <=8: Susceptible Pseudomonas aeruginosa Tobramycin <=2: Susceptible Performing Organization Address City[facility] Phone Number [address] [phone] [place] ED ECG Interpretation (03/02/2018 7:12 AM CDT) Narrative Performed At Macrina Gómez MD 03/02/20187:12 AM ECG/EKG Interpretation Date/Time: 03/01/2018 10:25 AM Performed by: MACRINA GÓMEZ Authorized by: MACRINA GÓMEZ The ECG was interpreted by ED physician. The ECG is interpreted as sinus rhythm. Rate is normal rate. Conduction: conduction normal. ST segments abnormal. T waves abnormal. Grawn is normal. Other findings: no other findings. Clinical Impression: non-specific ECG and abnormal ECG CT abdomen pelvis without contrast (03/01/2018 1:46 PM CDT) Narrative Performed At FINAL REPORT [employer] [employer] ABDOMINAL AND PELVIS CT DATED 03/01/2018 CLINICAL [...] MD Report Verified Date/Time:03/01/2018 15:15:27 Reading Location: [address] Body Reading Room Procedure Note Interface, [...] Report Verified Date/Time: 03/01/2018 15:15:27 Reading Location: [facility] B1 [id number] CT Body Reading Room Performing Organization Address City/State/Zipcode Phone Number GE RIS CBC with platelet count + automated diff (03/01/2018 10:29 AM CDT) WBC 5.6 3.5 - 10.5 K/L [facility] RBC 3.10 (L) 4.63 - 6.08 M/L [facility] Hemoglobin 9.8 (L) 13.7 - 17.5 GM/DL [facility] Hematocrit 29.7 (L) 40.1 - 51.0 % [facility] MCV 95.8 (H) 79.0 - 92.2 fL [facility] MCH 31.6 25.7 - 32.2 pg [facility] MCHC 33.0 32.3 - 36.5 GM/DL [facility] RDW 14.0 11.6 - 14.4 % [facility] Platelets 171 150 - 450 K/CU MM [facility] MPV 11.1 9.4 - 12.4 fL [facility] nRBC 0 0 - 0 /100 WBC [facility] % Neutros 69 % [facility] % Lymphs 16 % [facility] % Monos 10 % [facility] % Eos 4 % [facility] % Baso 1 % [facility] # Neutros 3.88 1.78 - 5.38 K/L [facility] # Lymphs 0.88 (L) 1.32 - 3.57 K/L [facility] # Monos 0.56 0.30 - 0.82 K/L [facility] # Eos 0.25 0.04 - 0.54 K/L [facility] # Baso 0.03 0.01 - 0.08 K/L [facility] Immature Granulocytes-Relative 0 0 - 1 % [facility] Specimen Blood - Arm, Left Performing Organization Address City[facility] Phone Number [address] [address] [phone] CENTER Lipase (03/01/2018 10:29 AM CDT) Lipase 61 8 - 78 U/L [facility] Specimen Blood - Arm, Left Performing Organization Address City/[facility] Phone Number [address] [address] CENTER Amylase (03/01/2018 10:29 AM CDT) Amylase 113 25 - 125 U/L [facility] Specimen Blood - Arm, Left Performing Organization Address City[facility] Phone Number [address] [address] [phone] [place] Hepatic function panel (03/01/2018 10:29 AM CDT) Protein, Total 6.8 6.0 - 8.3 gm/dL [facility] Albumin 3.5 3.5 - 5.0 g/dL [facility] Total Bilirubin 0.4 0.2 - 1.2 mg/dL [facility] Bilirubin, Direct 0.2 0.1 - 0.5 mg/dL [facility] Alkaline Phosphatase 78 40 - 150 U/L [facility] AST 20 5 - 34 U/L [facility] ALT 21 6 - 55 U/L [facility] Specimen Blood - Arm, Left Performing Organization Address [facility] Phone Number [place] [phone] [place] [address] [place] Basic Metabolic Panel (03/01/2018 10:29 AM CDT) Sodium 136 136 - 145 meq/L [facility] Potassium 4.0 3.5 - 5.1 meq/L [facility] Chloride 108 (H) 98 - 107 meq/L [facility] CO2 15 (L) 22 - 29 meq/L [facility] BUN 80 (H) 7 - 21 mg/dL [facility] Creatinine 4.79 (H) 0.57 - 1.25 mg/dL [facility] Glucose 84 70 - 105 mg/dL [facility] Calcium 8.9 8.4 - 10.2 mg/dL [facility] EGFR 12Comment: ESTIMATED GFR IS mL/min/1.[address] [facility] BCM NOT ACCURATE CREATININE [facility] CLEARANCE IN PREDICTING GLOMERULAR FILTRATION RATE. ESTIMATED GFR IS NOT APPLICABLE FOR DIALYSIS PATIENTS. Specimen Blood - Arm, Left Performing Organization Address City/State/Zipcode Phone Number [facility] [address] [place] [address] CENTER ECG 12 lead (03/01/2018 10:20 AM CDT) Narrative Performed At Ventricular Rate 62 BPM GE MUSE Atrial Rate 62 BPM P-R Interval 178 ms QRS Duration 96 ms Q-T Interval 452 ms QTC Calculation(Bazett) 458 ms P Grawn 66 degrees R Grawn -24 degrees T Grawn 140 degrees Normal sinus rhythm Possible Left [...] has shortened Confirmed by MD AMANDA, STEFFI ([id number]) on 03/02/2018 6:54:28 AM Procedure Note Interface, External Ris In - 03/02/2018 6:54 AM CDT Ventricular Rate 62 BPM Atrial Rate 62 BPM P-R Interval 178 ms QRS Duration 96 ms Q-T Interval 452 ms QTC Calculation(Bazett) 458 ms P Grawn 66 degrees R Grawn -24 degrees T Grawn 140 degrees Normal sinus rhythm Possible Left atrial enlargement Left ventricular hypertrophy + repolarization changes Cannot rule out Septal infarct , age undetermined T wave inversion lateral leads consider postischemic changes Abnormal ECG When compared with ECG of 17-JUL-2016 15:36, ST no longer elevated in Inferior leads , V1-V2 T wave amplitude has increased in Anterior leads QT has shortened Confirmed by MD PATEL YOCHAI ([id number]) on 03/02/2018 6:54:28 AM Performing Organization Address City/State/Zipcode Phone Number [facility] after 05/25/2017 Insurance Payer Benefit Plan / Group Subscriber ID Type Phone Address MEDICARE MEDICARE A B xxxxxxxxxx Medicare MEDICAID MEDICAID [facility] xxxxxxxxx Medicaid Advance Directives For more information, please contact:[address] [phone] Code Status Date Activated Date Inactivated Comments Full Code 07/16/2016 4:48 AM 07/22/2016 5:41 PM This code status was determined by: Patient Full Code 07/02/2016 4:21 PM 07/12/2016 5:48 AM This code status was determined by: Patient Full Code 07/01/2016 5:15 PM 07/02/2016 4:21 PM This code status was determined by: Patient Full Code 07/01/2016 8:56 AM 07/01/2016 5:15 PM This code status was determined by: Patient Full Code 07/01/2016 4:13 AM 07/01/2016 8:56 AM This code status was determined by: Patient
[2018-05-26 13:54] LABS: Absolute Lymphocytes (CBC) 0.8 K/uL (0.7-4.9); Absolute Monocytes 0.5 K/uL (0.1-1.3); Absolute Neutrophil 3.5 K/uL (1.8-8.0); Albumin 3.3 g/dL (3.4-5.0); Basophils % 0.8 % (0-1.3); Bilirubin Direct 0.2 mg/dL (0-0.2); Bilirubin Total 0.5 mg/dL (0.2-1.0); Eosinophils % 1.8 % (0-4.4); Hematocrit 21.6 % (39.6-49.0); Lymphocytes % 15.8 % (15.3-44.8); MCH 33.1 pg (27.0-35.0); MCV 95.3 fL (80-100); MPV 8.7 fL (7.6-11.3); Magnesium 2.3 mg/dL (1.8-2.4); Monocytes % 10.9 % (3.3-12.3); Potassium 4.1 mmol/L (3.5-5.1); Protein, Total 7.5 g/dL (6.4-8.2); RBC Red Blood Cell Count 2.26 M/uL (4.33-5.43); Troponin (Emerg Dept Use Only) 0.2 ng/mL (0.0-0.045)
[2018-05-26 13:56] LABS: Protime INR 1.23
--- NOTE | 2018-05-26 14:20 | RAD REPORT ---
EXAM DESCRIPTION: Eliu Single View05/26/2018 2:11 pm CLINICAL HISTORY: Chest pain COMPARISON: May 06, 2018 FINDINGS: Small bilateral pleural effusions are present with bibasilar atelectasis. Mild bilateral i nterstitial pulmonary edema is suspected The heart is mildly enlarged. Central venous catheter remains in place. Postsurgical changes involve chest
--- NOTE | 2018-05-26 15:29 | EKG ---
Test Date: 2018-05-26 Test Time: 13:14:31 Log Sawyer: EVARISTO MEASUREMENT RESULTS: Intervals: Rate: 73 GA: 180 QRSD: 98 QT: 414 QTc: [address] [place]: P: 52 GA: 180 QRS: -31 T: 142 INTERPRETIVE STATEMENTS: Sinus rhythm with occasional premature ventricular complexes Left axis deviation Anterolateral infarct Inferior infarct, age undetermined Abnormal ECG Compared to ECG 05/06/2018 00:13:49 Ventricular premature complex(es) now present Left-axis deviation now present Myocardial infarct finding still present Electronically Signed On 05-26-18 15:28:39 STOCK PATCH SAWYER by Raheel Zeng
--- NOTE | 2018-05-26 17:45 | P.HP ---
Certification for Inpatient Patient admitted to: Inpatient With expected LOS: >2 Midnights Patient will require the following post-hospital care: None Practitioner: I am a practitioner with admitting privileges, knowledge of patient current condition, hospital course, and medical plan of care. Services: Services provided to patient in accordance with Admission requirements found in Title 42 Section 412.3 of the Code of Federal Regulations Patient History Date of Service: 05/26/18 Primary Care Provider: Dr Aguirre - PCP and Nephrology Reason for admission: SOB History of Present Illness: Mr. Quarles is a 77-year-old male with history of CAD status post CABG, chronic anemia, insulin-dependent diabetes mellitus, end stage renal disease on HD, hypertension, presented to the ER with complains of been feeling progressively short of breath for the last couple of days, and recent Exposure to TB with His mother. Pt has been noncompliance with medication in the past and has been seen in the hospital for quite some time frequently for similar Complains. Pt Has been coughing and having chills per family. However this Symptoms have been chronic and no new changes have been noted on that. Last HD session was yesterday. Family called EMS and upon arrival pt Oxygen was 79% and thus pt was brought to the hospital for further care. In the ER patient continued to be Hypoxic and In Acute distress and thus was admitted for further care. Allergies aspirin Allergy (Verified 01/11/18 15:42) Nausea/Vomiting No Known Allergies Allergy (Uncoded 01/18/18 10:03) Unknown Home Medications: Atorvastatin Calcium [Lipitor*] 10 mg PO BEDTIME 12/15/17 Amlodipine [Norvasc*] 10 mg PO DAILY 03/15/18 Glipizide [Glipizide ER] 10 mg PO BID 05/06/18 Torsemide [Demadex] 20 mg PO DAILY 05/06/18 clonazePAM [Clonazepam] 0.5 mg PO TID 05/06/18 - Past Medical/Surgical History Diabetic: Yes -: COPD -: CHF -: ANEMIA -: CAD -: CARDIOMEGALY -: CRD -: CIRRHOSIS -: IDDM -: HYPERLIPIDEMIA -: [place] -: HTN -: PE -: Repair of left finger fracture -: CABG X3 -: PACEMAKER -: COPD Psychosocial/ Personal History: He is 56 years, has 13 children, he does not work. - Family History Father -: GI disease Notes: none per pt - Social History Alcohol use: No CD- Drugs: No Caffeine use: Yes Review of Systems 10-point ROS is otherwise unremarkable Physical Examination - Physical Exam General: Alert, Oriented x3, Acute distress HEENT: Atraumatic, PERRLA, Mucous membr. moist/pink, EOMI, Sclerae nonicteric Neck: Supple, No LAD, Without JVD or thyroid abnormality, JVD distended Respiratory: Normal air movement, Crackles/rales, Expiratory wheezes, Inspiratory wheezes, Other (Labored breathing) Cardiovascular: Regular rate/rhythm, Normal S1 S2 Gastrointestinal: Normal bowel sounds, No tenderness Musculoskeletal: No tenderness Integumentary: No rashes Neurological: Normal gait, Normal speech, Normal strength at 5/5 x4 extr, Normal tone, Normal affect Lymphatics: No axilla or inguinal lymphadenopathy - Studies Laboratory Data (last 24 hrs) 05/26/18 13:16: PT 14.5 H, INR 1.23 05/26/18 13:16: WBC 4.9, Hgb 7.5 L*, Hct 21.6 L, Plt Count 181 05/26/18 13:16: Sodium 138, Potassium 4.1, BUN 25 H, Creatinine 3.40 H, Glucose 140 H, Magnesium 2.3, Total Bilirubin 0.5, AST 17, ALT 15, Alkaline Phosphatase 102 Assessment and Plan - Problems (Diagnosis) (1) Acute respiratory failure Current Visit: Yes Status: Acute Plan: Acute Respiratory Failure 2.2 to Volume Overload 2.2 to CHF exacerbation vs ESRD -Currently on NC saturating at 85%. Will Titrate up to 88-92% with NC if not able to improve oxygenation will put on BIPAP -Pt with Recent Exposure to Known TB patient -Pulmonology consulted. -Will get TB quant if needed Qualifiers: Respiratory failure complication: hypoxia Qualified Code(s): J96.01 - Acute respiratory failure with hypoxia (2) Acute on chronic diastolic CHF (congestive heart failure) Onset Date: 05/07/18 Current Visit: No Status: Acute Plan: Most likely 2.2 to Chronic debility and worsening possibly due to recent exposure to TB vs viral Illness -IV lasix and restart home medication -Cardiology consulted. -Monitor closely for further worsening. -Fluid Restriction (3) End stage renal disease Current Visit: No Status: Chronic Plan: ESRD now On Dialysis -Last dialysis session yesterday -Pt has a recent dialysis cath placed in the right chest about 1 month ago. -Nephrology consulted. Will discuss regarding placing permanent cath -Will repeat Dialysis gunjan and per nephrology reccs (4) Anemia Onset Date: 02/21/16 Current Visit: No Status: Chronic Plan: ACD due to ESRD -Will replace hgb if < 7 Qualifiers: Anemia type: due to chronic kidney disease Chronic kidney disease stage: on chronic dialysis Qualified Code(s): N18.6 - End stage renal disease; D63.1 - Anemia in chronic kidney disease; Z99.2 - Dependence on renal dialysis (5) Coronary artery disease Onset Date: 07/15/17 Current Visit: No Status: Chronic Qualifiers: Coronary Disease-Associated Artery/Lesion type: [place] artery [place] vs. 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 use: with termite control servicer use Diabetes mellitus complication status: with kidney complications Chronic kidney disease stage: on chronic dialysis (7) Hypertension Onset Date: 02/21/16 Current Visit: No Status: Chronic Qualifiers: Hypertension type: essential hypertension Qualified Code(s): I10 - Essential (primary) hypertension (8) Liver cirrhosis Onset Date: 12/15/17 Current Visit: No Status: Chronic Qualifiers: Hepatic cirrhosis type: unspecified hepatic cirrhosis Ascites presence: without ascites Qualified Code(s): K74.60 - Unspecified cirrhosis of liver - Plan Admit to ICU for ARF and further care. Discharge Plan: Home Plan to discharge in: Greater than 2 days - Advance Directives Does patient have a Living Will: No Does patient have a Durable POA for Healthcare: No - Code Status/Comfort Care Code Status Assessed: Yes Critical Care: Yes
--- NOTE | 2018-05-26 18:16 | ER ---
Nurse's Notes [facility] Name: Blaise Quarles Age: 77 yrs Sex: Male : 1940 Arrival Date: 05/26/2018 Time: 13:02 Bed 8 Private MD: Diagnosis: Shortness of breath;Chronic respiratory failure with hypoxia Presentation: 05/26 13:03 Presenting complaint: EMS states: chest pain and shortness of breath x 4-5 days. Pt's ss last dialysis session was completed yesterday. Transition of care: patient was not received from another setting of care. Onset of symptoms was May 21, 2018. Risk Assessment: Do you want to hurt yourself or someone else? Patient reports no desire to harm self or others. Initial Sepsis Screen: Does the patient meet any 2 criteria? No. Patient's initial sepsis screen is negative. Does the patient have a suspected source of infection? No. Patient's initial sepsis screen is negative. Care prior to arrival: Pt refused all care that was offered by EMS. 13:03 Method Of Arrival: EMS: [facility] ss 13:03 Acuity: SARATH 3 ss Historical: - Allergies: 13:08 Aspirin; ss - PMHx: 13:08 Anemia; CAD; cardiomegaly; CHF; Cirrhosis; chronic renal disease; Diabetes - IDDM; ss Dialysis; High Cholesterol; Hypertension; Myocardial infarction; pleural effusion; pulmonary nodule; Visually impared; - PSHx: 13:08 CABG; Heart stents; ss - Immunization history:: Adult Immunizations unknown. - Social history:: Smoking status: Patient/guardian denies using tobacco, the patient reports quitting approximately 26 years ago. - Ebola Screening: : Patient denies exposure to infectious person Patient denies travel to an Ebola-affected area in the 21 days before illness onset. Screenin:23 Abuse screen: Denies threats or abuse. Denies injuries from another. Nutritional ss screening: No deficits noted. Tuberculosis screening: Never had TB. Fall Risk No fall in past 12 months (0 pts). No secondary diagnosis (0 pts). IV access (20 points). Ambulatory Aid- None/Bed Rest/Nurse Assist (0 pts). Gait- Normal/Bed Rest/Wheelchair (0 pts) Mental Status- Overestimates/Forgets Limitations (15 pts.). Assessment: 13:09 General: Appears uncomfortable, Behavior is agitated, Denies fever, chills. Pain: ss Complains of pain in chest, upper back and Lower abd Pain does not radiate. Pain currently is 8 out of 10 on a pain scale. Quality of pain is described as sharp, Pain began 4-5 days ago Is continuous. Neuro: Level of Consciousness is awake, alert. Cardiovascular: Capillary refill is > 3 seconds is sluggish in bilateral fingers Chest pain quality is sharp, began 4-5 days ago episodes are continuous last > 5 minutes. Cardiovascular: Jed noted to R upper chest. Respiratory: Airway is patent Respiratory effort is even, Respiratory pattern is regular, symmetrical, tachypnea. GI: Reports lower abdominal pain, Patient currently denies diarrhea, nausea, vomiting. : No signs and/or symptoms were reported regarding the genitourinary system. EENT: Oral mucosa is moist. Throat is clear. Derm: Skin is intact, is healthy with good turgor, Skin is dry, Skin is pink, warm \T\ dry. normal. Musculoskeletal: Circulation, motion, and sensation intact. Range of motion: intact in all extremities, Swelling absent. 15:13 Reassessment: Pt has refused CT, Dr. Casiano and family are aware. Respiratory: Airway ss is patent Respiratory effort is even, unlabored, Respiratory pattern is regular, symmetrical. 16:08 Reassessment: Patient appears in no apparent distress at this time. Patient and/or ss family updated on plan of care and expected duration. Pain level reassessed. Awaiting disposition. Family remains at bedside. Dr. Casiano reports he will be in to speak with patient and family momentarily. 17:25 Reassessment: Repositioned patient in bed. Awaiting room assignment for admission. PT ss and family updated on plan of care. Pt's O2 is 89% on [address] Mckeon notified and states okay as long as O2 stays at 88% or above on 4 L NC. 18:19 Reassessment: Patient appears in no apparent distress at this time. Pt is requesting ss coffee, milk, water. Feeling better. Awaiting ICU bed assignment. Vital Signs: 13:08 BP 129 / 57; Pulse 73; Resp 21; Temp 97.7(TE); Pulse Ox 88% on 4 lpm NC; Pain 8/10; ss 13:08 Weight 56.7 kg (R); ss 13:09 BP 147 / 63; Pulse 75; Pulse Ox 93% on 4 lpm NC; ss 15:15 BP 136 / 56; Pulse 71; Resp 16; Pulse Ox 90% on 4 lpm NC; ss 16:08 BP 141 / 64; Pulse 67; Resp 14; Pulse Ox 90% on 4 lpm NC; ss 17:19 BP 139 / 72; Pulse 71; Resp 17; Pulse Ox 87% on 4 lpm NC; ss 17:26 Pulse Ox 89% on 4 lpm NC; ss 19:39 BP 147 / 77; Pulse 74; Resp 16; Pulse Ox 93% on 4 lpm NC; tl2 20:30 BP 142 / 68; Pulse 76; Resp 17; Pulse Ox 90% on 4 lpm NC; tl2 ED Course: 13:02 Patient arrived in ED. ss 13:04 Matthew Casiano MD is Attending Physician. kdr 13:06 Triage completed. ss 13:08 Arm band placed on right wrist. ss 13:16 Initial lab(s) drawn, by me, sent to lab. Inserted saline lock: 20 gauge in right dh3 antecubital area, using aseptic technique. Blood collected. 13:23 Patient has correct armband on for positive identification. Bed in low position. Call light in reach. laboratory monitor on. Pulse ox on. NIBP on. 13:23 Patient maintains SpO2 saturation greater than 95% on room air. ss 13:27 Monserrat Young, RN is Primary Nurse. ss 13:32 EKG done, by technology officer. reviewed by Matthew Casiano MD. 3 14:01 X-ray completed. Portable x-ray completed in exam room. Patient tolerated procedure ag1 well. 14:03 XRAY Chest (1 view) In Process Unspecified. EDMS 15:00 First set of blood cultures drawn by me. Inserted saline lock: 22 gauge in left dh3 antecubital area, using aseptic technique. Blood collected. 15:15 Second set of blood cultures drawn by me. 3 17:18 Ivon Mckeon MD is Hospitalizing Provider. kdr Administered Medications: No medications were administered Outcome: 17:19 Decision to Hospitalize by Provider. kdr 21:13 Patient left the ED. ss Signatures: Dispatcher [employer] EDMS Matthew Casiano MD MD kdr Monserrat Young RN RN ss Jennifer Duncan ag1 Tamar Saldana RN RN 2 Sheridan Miles 3 Xochitl Clayton 3 Corrections: (The following items were deleted from the chart) 19:17 13:09 Respiratory: Airway is patent Respiratory effort is even, unlabored, Respiratory ss pattern is regular, symmetrical, ss
--- NOTE | 2018-05-26 18:16 | EDPHYS ---
Physician Documentation [facility] Name: Blaise Quarles Age: 77 yrs Sex: Male : 1940 Arrival Date: 05/26/2018 Time: 13:02 Bed 8 Private MD: ED Physician Matthew Casiano HPI: 05/27 13:42 This 77 yrs old Male presents to ER via EMS with complaints of Chest Pain, kdr Shortness Of Breath. 13:42 The patient or guardian reports chest pain that is located primarily in the anterior kdr chest wall, bilaterally, chest diffusely. Onset: gradually, at an unknown time. The pain does not radiate. Associated signs and symptoms: Pertinent positives: shortness of breath. The chest pain is described as aching, dull, a heaviness, a pressure. Duration: The patient or guardian reports multiple episodes, that are intermittent, that wax and wane, with no pattern. Severity of pain: At its worst the pain was very mild mild in the emergency department the pain has improved. The patient has experienced similar episodes in the past, multiple times, chronically. The patient was discharged recently from this hospital. Historical: - Allergies: 05/26 13:08 Aspirin; ss - PMHx: 13:08 Anemia; CAD; cardiomegaly; CHF; Cirrhosis; chronic renal disease; Diabetes - IDDM; ss Dialysis; High Cholesterol; Hypertension; Myocardial infarction; pleural effusion; pulmonary nodule; Visually impared; - PSHx: 13:08 CABG; Heart stents; ss - Immunization history:: Adult Immunizations unknown. - Social history:: Smoking status: Patient/guardian denies using tobacco, the patient reports quitting approximately 26 years ago. - Ebola Screening: : Patient denies exposure to infectious person Patient denies travel to an Ebola-affected area in the 21 days before illness onset. ROS: 05/27 13:42 Constitutional: The patient is a poor historian and is not able to communicate well kdr Unable to obtain ROS due to baseline dementia, patient's speech is incomprehensible, patient's inability to understand questions. Exam: 13:42 Constitutional: This is a well developed, well nourished patient who is awake, poorly kdr alert, but in no acute distress. Head/Face: Normocephalic, atraumatic dry and cachetic Neck: Trachea midline, no thyromegaly or masses palpated, and no cervical lymphadenopathy. Supple, full range of motion without nuchal rigidity, or vertebral point tenderness. No Meningismus. Chest/axilla: Normal chest wall appearance and motion. Nontender with no deformity. No lesions are appreciated. Cardiovascular: Regular rate and rhythm with a normal S1 and S2. No gallops, murmurs, or rubs. Normal PMI, no JVD. No pulse deficits. Abdomen/GI: Soft, non-tender, with normal bowel sounds. No distension or tympany. No guarding or rebound. No evidence of tenderness throughout. Back: No spinal tenderness. No costovertebral tenderness. Full range of motion. Skin: Warm, dry with normal turgor. Normal color with no rashes, no lesions, and no evidence of cellulitis. MS/ Extremity: Pulses equal, no cyanosis. Neurovascular intact. Full, normal range of motion. 13:42 Respiratory: the patient does not display signs of respiratory distress, Respirations: normal, Breath sounds: decreased breath sounds, that are mild, are scattered. Vital Signs: 05/26 13:08 BP 129 / 57; Pulse 73; Resp 21; Temp 97.7(TE); Pulse Ox 88% on 4 lpm NC; Pain 8/10; ss 13:08 Weight 56.7 kg (R); ss 13:09 BP 147 / 63; Pulse 75; Pulse Ox 93% on 4 lpm NC; ss 15:15 BP 136 / 56; Pulse 71; Resp 16; Pulse Ox 90% on 4 lpm NC; ss 16:08 BP 141 / 64; Pulse 67; Resp 14; Pulse Ox 90% on 4 lpm NC; ss 17:19 BP 139 / 72; Pulse 71; Resp 17; Pulse Ox 87% on 4 lpm NC; ss 17:26 Pulse Ox 89% on 4 lpm NC; ss 19:39 BP 147 / 77; Pulse 74; Resp 16; Pulse Ox 93% on 4 lpm NC; tl2 20:30 BP 142 / 68; Pulse 76; Resp 17; Pulse Ox 90% on 4 lpm NC; tl2 MDM: 17:19 Patient medically screened. kdr 18:38 Data reviewed: vital signs, nurses notes. ED course: The patient was noted to have kdr saturation less than 80% while in the room on the monitor. 05/26 13:04 Order name: Basic Metabolic Panel; Complete Time: 16:31 [facility] 05/26 13:04 Order name: CBC with Diff; Complete Time: 16:31 [facility] 05/26 13:04 Order name: LFT's; Complete Time: 16:31 [facility] 05/26 13:04 Order name: Magnesium; Complete Time: 16:31 [facility] 05/26 13:04 Order name: NT PRO-BNP; Complete Time: 16:31 [facility] 05/26 13:04 Order name: PT-INR; Complete Time: 16:31 [facility] 05/26 13:04 Order name: Troponin (emerg Dept Use Only); Complete Time: 16:31 [facility] 05/26 13:04 Order name: XRAY Chest (1 view); Complete Time: 16:31 [facility] 05/26 13:04 Order name: EKG; Complete Time: 13:05 [facility] 05/26 13:04 Order name: Cardiac monitoring; Complete Time: 13:27 [facility] 05/26 13:04 Order name: EKG - Nurse/Tech; Complete Time: 13:50 [facility] 05/26 13:47 Order name: Blood Culture Adult (2) [facility] 05/26 17:22 Order name: Sputum Culture [facility] 05/26 13:04 Order name: IV Saline Lock; Complete Time: 13:27 [facility] 05/26 13:04 Order name: Labs collected and sent; Complete Time: 13:27 [facility] 05/26 13:04 Order name: O2 Per Protocol; Complete Time: 13:27 [facility] 05/26 13:04 Order name: O2 Sat Monitoring; Complete Time: 13:27 kdr Administered Medications: No medications were administered Disposition: 05/26/18 17:19 Hospitalization ordered by Ivon Mckeon for Inpatient Admission. Preliminary diagnosis are Shortness of breath, Chronic respiratory failure with hypoxia. - Bed requested for Intensive Care Unit. - Status is Inpatient Admission. ss - Condition is Serious. - Problem is new. - Symptoms have improved. UTI on Admission? No Signatures: Dispatcher [employer] EDFL Matthew Casiano MD MD kdr Mayo Palmer em1 Monserrat Young RN RN ss Corrections: (The following items were deleted from the chart) 17:13 14:24 Chest Abdomen Pelvis Wo Con+CT.RAD.BRZ ordered. EDFL EDFL 20:26 17:19 Hospitalization Ordered by Ivon Mckeon MD for Inpatient Admission. Preliminary em1 diagnosis is Shortness of breath; Chronic respiratory failure with hypoxia. Bed requested for Telemetry/MedSurg (Inpatient). Status is Inpatient Admission. Condition is Serious. Problem is new. Symptoms have improved. UTI on Admission? No. kdr 21:13 20:26 05/26/2018 17:19 Hospitalization Ordered by Ivon Mckeon MD for Inpatient ss Admission. Preliminary diagnosis is Shortness of breath; Chronic respiratory failure with hypoxia. Bed requested for Intensive Care Unit. Status is Inpatient Admission. Condition is Serious. Problem is new. Symptoms have improved. UTI on Admission? No. em1
[2018-05-26] MEDS ORDERED: ONDANSETRON 4 MG/2 ML VIAL IV PRN (20:31)
[2018-05-26] MEDS ORDERED: ACETAMINOPHEN 500 MG TAB PO PRN (20:31)
[2018-05-26] MEDS ORDERED: IPRATROPIUM BROM 0.5MG/2.5ML NEB PRN (20:31)
[2018-05-26] MEDS ORDERED: ALBUTEROL 2.5 MG/3 ML NEB SOL NEB PRN (20:31)
[2018-05-27] MEDS ORDERED: clonazePAM 0.5 MG TAB PO PRN ×2 (00:16→16:13)
[2018-05-27] MEDS ORDERED: ZIPRASIDONE MESYLA 20 MG/VIAL IM ONE ×2 (00:36→00:45)
[2018-05-27] MEDS ORDERED: WATER FOR INJ,STERILE 10 ML ONE (00:36)
[2018-05-27] MEDS ORDERED: WATER FOR INJ,STERILE 10 ML IM PRN (01:51)
[2018-05-27 05:38] LABS: Absolute Lymphocytes (CBC) 0.5 K/uL (0.7-4.9); Absolute Monocytes 0.4 K/uL (0.1-1.3); Absolute Neutrophil 3.4 K/uL (1.8-8.0); Basophils % 0.7 % (0-1.3); Eosinophils % 1.1 % (0-4.4); Hematocrit 21.3 % (39.6-49.0); Lymphocytes % 11.6 % (15.3-44.8); MCH 32.8 pg (27.0-35.0); MCV 95.9 fL (80-100); MPV 8.4 fL (7.6-11.3); Monocytes % 8.3 % (3.3-12.3); RBC Red Blood Cell Count 2.22 M/uL (4.33-5.43)
[2018-05-27 05:55] LABS: Albumin 2.9 g/dL (3.4-5.0); Bilirubin Total 0.5 mg/dL (0.2-1.0); Magnesium 2.2 mg/dL (1.8-2.4); Phosphorus 3.5 mg/dL (2.5-4.9); Potassium 4.1 mmol/L (3.5-5.1); Protein, Total 6.5 g/dL (6.4-8.2)
--- NOTE | 2018-05-27 08:02 | RAD REPORT ---
EXAM DESCRIPTION: Eliu Single View05/27/2018 6:33 am CLINICAL HISTORY: Shortness of breath COMPARISON: May 26, 2018 FINDINGS: [id number] bilateral pulmonary opacities are seen. Pleural effusions persist. The heart remains enlarged. Postsurgical changes involve the chest. Such venous catheter remains in place the IMPRESSION: Mild to moderate pulmonary edema with bilateral pleural effusions
[2018-05-27] MEDS ORDERED: NA CHLORIDE 0.9% 1,000 ML IV PRN (10:25)
[2018-05-27] MEDS ORDERED: MANNITOL 25% 12.5 GM/50 ML VIAL IV PRN (10:25)
[2018-05-27] MEDS ORDERED: EPOETIN ALFA 10,000 UNIT/ML VIAL IV SCH (10:30)
[2018-05-27] MEDS ORDERED: ALBUMIN HUMAN 25% 50 ML IV SCH (11:00)
--- NOTE | 2018-05-27 12:52 | P.CNS ---
Date of Consult: 05/27/18 Primary Care Provider: Dr Aguirre - PCP and Nephrology Chief Complaint: SOB History of Present Illness: Patient is 77 years of age [place]-speaking history obtained from a relative multiple medical problems as outlined in the H and P. he has end-stage renal disease noncompliant admitted to the ICU for some shortness of breath hypoxemia recent exposure to TB he has been having some coughing and chills with low oxygen saturation he quit smoking a long time ago Chest x-ray evidence of volume overload Allergies aspirin Allergy (Verified 01/11/18 15:42) Nausea/Vomiting No Known Allergies Allergy (Uncoded 01/18/18 10:03) Unknown Home Medications: Atorvastatin Calcium [Lipitor*] 10 mg PO BEDTIME 12/15/17 Amlodipine [Norvasc*] 10 mg PO DAILY 03/15/18 clonazePAM [Clonazepam] 0.5 mg PO TID PRN 05/06/18 Bisacodyl [Laxative] 5 mg PO BID 05/26/18 Tramadol HCl/Acetaminophen [Tramadol-Acetaminophn 37.5-325] 1 each PO Q8H PRN Trazodone HCl 100 mg PO BEDTIME 05/26/18 - Past Medical/Surgical History Diabetic: Yes -: COPD -: CHF -: ANEMIA -: CAD -: cardiomegaly -: chronic renal disease -: cirrhosis -: diabetes -: hyperlipidemia -: [place] -: HTN -: PE -: Repair of left finger fracture -: CABG -: cardiac stents -: gillian placement Psychosocial/ Personal History: He is 56 years, has 13 children, he does not work. - Family History Father Medical History: GI disease Notes: none per pt - Social History Smoking Status: Unknown if ever smoked Alcohol use: No CD- Drugs: No Caffeine use: Yes Place of Residence: Home Review of Systems is unable to be obtained Physical Examination Temp Pulse Resp BP Pulse Ox 97.9 F 78 17 158/63 H 87 L 05/27/18 04:00 05/27/18 12:00 05/27/18 12:00 05/27/18 12:00 05/27/18 12:00 General: Alert, Cooperative Respiratory: Clear to auscultation bilaterally, Diminished Cardiovascular: No edema, Normal S1 S2 Gastrointestinal: Normal bowel sounds, Soft and benign Musculoskeletal: No clubbing, No swelling Laboratory Data (last 24 hrs) 05/26/18 13:16: PT 14.5 H, INR 1.23 05/26/18 13:16: WBC 4.9, Hgb 7.5 L*, Hct 21.6 L, Plt Count 181 05/26/18 13:16: Sodium 138, Potassium 4.1, BUN 25 H, Creatinine 3.40 H, Glucose 140 H, Magnesium 2.3, Total Bilirubin 0.5, AST 17, ALT 15, Alkaline Phosphatase 102 - Problems (1) Respiratory failure Current Visit: Yes Status: Acute Plan: Patient is 77 years of age admitted with respiratory failure chest x-ray very abnormal evidence of volume overload labs reviewed consistent with renal failure blood cultures pending patient is on dialysis cannot rule out an infectious process continue to monitor due to contact was or a [facility] department and get more history about his exposure to TB I discuss with the relatives slap patient's daughter was exposed to TB no history of active TB in Dc isolation transfer to the floor continue with dialysis is hypoxic probably qualify for home O2
--- NOTE | 2018-05-27 13:12 | P.PN ---
Subjective Date of Service: 05/27/18 Primary Care Provider: Dr Aguirre - PCP and Nephrology Chief Complaint: SOB Patient seen and examined at bedside with RN. Chart reviewed. Case discussed with pulmonology at this time. Awaiting nephrology referral at this time. Overnight patient did become agitated and had been given Geodon. This morning however patient is alert and oriented x3 and has been doing well overall. Does complain of having some shortness of breath but no other worsening noted. Review of Systems 10-point ROS is otherwise unremarkable Physical Examination - Vital Signs Temperature: 97.9 F Blood Pressure: 158/63 Pulse: 78 Respirations: 17 Pulse Ox (%): 87 - Physical Exam General: Alert, In no apparent distress, Oriented x3 HEENT: Atraumatic, PERRLA, EOMI Neck: Supple, JVD not distended Respiratory: Normal air movement, Crackles/rales Cardiovascular: Regular rate/rhythm, Normal S1 S2 Gastrointestinal: Normal bowel sounds, No tenderness Musculoskeletal: No tenderness Integumentary: No rashes Neurological: Normal speech, Normal tone, Normal affect Lymphatics: No axilla or inguinal lymphadenopathy - Studies Laboratory Data (last 24 hrs) 05/26/18 13:16: PT 14.5 H, INR 1.23 05/26/18 13:16: WBC 4.9, Hgb 7.5 L*, Hct 21.6 L, Plt Count 181 05/26/18 13:16: Sodium 138, Potassium 4.1, BUN 25 H, Creatinine 3.40 H, Glucose 140 H, Magnesium 2.3, Total Bilirubin 0.5, AST 17, ALT 15, Alkaline Phosphatase 102 Medications List Reviewed: Yes Assessment And Plan - Current Problems (Diagnosis) (1) Acute respiratory failure Current Visit: Yes Status: Acute Plan: Acute Respiratory Failure 2.2 to Volume Overload 2.2 to CHF exacerbation vs ESRD -Currently on NC saturating at 91%. Titrate up to 88-92%. 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 Sputum Culture pending. -Pulmonology consulted. Awaiting Recs Qualifiers: Respiratory failure complication: hypoxia Qualified Code(s): J96.01 - Acute respiratory failure with hypoxia (2) Acute on chronic diastolic CHF (congestive heart failure) Onset Date: 05/07/18 Current Visit: No Status: Acute Plan: Most likely 2.2 to Chronic debility and worsening possibly due to recent exposure to TB vs viral Illness -IV lasix and restart home medication -Cardiology consulted. Reccs Appreciated -Monitor closely for further worsening. -Fluid Restriction (3) End stage renal disease Current Visit: No Status: Chronic Plan: ESRD now On Dialysis -Last dialysis session yesterday -Pt has a recent dialysis cath placed in the right chest about 1 month ago. -Nephrology consulted. Will discuss regarding placing permanent cath -Will repeat Dialysis gunjan and per nephrology reccs (4) Anemia Onset Date: 02/21/16 Current Visit: No Status: Chronic Plan: ACD due to ESRD -Will replace hgb if < 7 Qualifiers: Anemia type: due to chronic kidney disease Chronic kidney disease stage: on chronic dialysis Qualified Code(s): N18.6 - End stage renal disease; D63.1 - Anemia in chronic kidney disease; Z99.2 - Dependence on renal dialysis (5) Coronary artery disease Onset Date: 07/15/17 Current Visit: No Status: Chronic Qualifiers: Coronary Disease-Associated Artery/Lesion type: [place] artery [place] vs. 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 Diabetes mellitus complication status: with kidney complications Chronic kidney disease stage: on chronic dialysis (7) Hypertension Onset Date: 02/21/16 Current Visit: No Status: Chronic Qualifiers: Hypertension type: essential hypertension Qualified Code(s): I10 - Essential (primary) hypertension (8) Liver cirrhosis Onset Date: 12/15/17 Current Visit: No Status: Chronic Qualifiers: Hepatic cirrhosis type: unspecified hepatic cirrhosis Ascites presence: without ascites Qualified Code(s): K74.60 - Unspecified cirrhosis of liver Discharge Plan: Home Plan to discharge in: 72 Hours - Code Status/Comfort Care Code Status Assessed: Yes Critical Care: Yes
[2018-05-27] MEDS ORDERED: TRAMADOL 37.5mg/APAP 325mg PER TAB PO PRN (16:13)
[2018-05-27 18:22] VITALS: BMI 23.1
[2018-05-27] MEDS: ATORVASTATIN 10 MG TAB PO SCH ×2 (20:33→21:00)
[2018-05-27] MEDS: BISACODYL E.C. 5 MG TAB PO SCH (20:34)
[2018-05-27] MEDS: TRAZODONE 50 MG TABLET PO SCH ×2 (20:34→21:00)
[2018-05-27] MEDS ORDERED: HOME MED 1 EA UNK (Trazodone Hcl [Trazodone Hcl] 100 MG) PO SCH (21:00)
[2018-05-27] MEDS ORDERED: BISACODYL 5 MG PO SCH (21:00)
--- NOTE | 2018-05-27 21:07 | P.CNS ---
Date of Consult: 05/27/18 Reason for Consult: ESRD Requesting Physician: Ivon Mckeon Primary Care Provider: Dr Aguirre - PCP and Nephrology Chief Complaint: SOB History of Present Illness: Mr. Quarles is a 77-year-old male with history of CAD status post CABG, chronic anemia, insulin-dependent diabetes mellitus, end stage renal disease on HD, hypertension, presented to the ER with complains of been feeling progressively short of breath for the last couple of days, and recent Exposure to TB with His mother. Pt has been noncompliance with medication in the past and has been seen in the hospital for quite some time frequently for similar Complains. Pt Has been coughing and having chills per family. However this Symptoms have been chronic and no new changes have been noted on that. Last HD session was yesterday. Family called EMS and upon arrival pt Oxygen was 79% and thus pt was brought to the hospital for further care. In the ER patient continued to be Hypoxic and In Acute distress and thus was admitted for further care. Allergies aspirin Allergy (Verified 01/11/18 15:42) Nausea/Vomiting No Known Allergies Allergy (Uncoded 01/18/18 10:03) Unknown Home medications list reviewed: Yes Home Medications: Atorvastatin Calcium [Lipitor*] 10 mg PO BEDTIME 12/15/17 Amlodipine [Norvasc*] 10 mg PO DAILY 03/15/18 clonazePAM [Clonazepam] 0.5 mg PO TID PRN 05/06/18 Bisacodyl [Laxative] 5 mg PO BID 05/26/18 Tramadol HCl/Acetaminophen [Tramadol-Acetaminophn 37.5-325] 1 each PO Q8H PRN Trazodone HCl 100 mg PO BEDTIME 05/26/18 - Past Medical/Surgical History Diabetic: Yes -: COPD -: CHF -: ANEMIA -: CAD -: cardiomegaly -: chronic renal disease -: cirrhosis -: diabetes -: hyperlipidemia -: [place] -: HTN -: PE -: Repair of left finger fracture -: CABG -: cardiac stents -: gillian placement Psychosocial/ Personal History: He is 55 years, has 13 children, he does not work. - Family History Father Medical History: GI disease Notes: none per pt - Social History Smoking Status: Unknown if ever smoked Alcohol use: No CD- Drugs: No Caffeine use: Yes Place of Residence: Home Review of Systems 10-point ROS is otherwise unremarkable General: Weakness, Malaise Respiratory: Shortness of Breath, SOB with Excertion Cardiovascular: Edema Neurological: Weakness Physical Examination Temp Pulse Resp BP Pulse Ox 98.5 F 78 16 155/69 H 95 05/27/18 16:00 05/27/18 19:00 05/27/18 19:00 05/27/18 19:00 05/27/18 19:00 General: Cooperative HEENT: Atraumatic Neck: Supple, JVD distended Respiratory: Diminished, Crackles/rales Cardiovascular: Regular rate/rhythm, Edema Musculoskeletal: No clubbing, No contractures Integumentary: No rashes, No cyanosis Hgb 7.5 Blood work reviewed in the chart. Imagings Data: EXAM DESCRIPTION: Eliu Single View05/27/2018 6:33 am CLINICAL HISTORY: Shortness of breath COMPARISON: May 26, 2018 FINDINGS: [id number] bilateral pulmonary opacities are seen. Pleural effusions persist. The heart remains enlarged. Postsurgical changes involve the chest. Such venous catheter remains in place the IMPRESSION: Mild to moderate pulmonary edema with bilateral pleural effusions Conclusions/Impression: A/ ESRD on HD. A/C Diastolic CHF. HTN with CKD. DM II with CKD. Anemia in CKD. JUN/ Secondary HyperPTH. COPD. P/ Continue current POC and Medications. Acute HD with UF as ordered. Repeat HD tomorrow. Give Epo. Restart home medications as indicated. No NSAIDs. AM labs. Daily weight. Thank you for the consultation. Case discussed with Dr. Mckeon. Seen and examined on HD; case discussed with the family.
[2018-05-28 06:15] LABS: Absolute Lymphocytes (CBC) 0.7 K/uL (0.7-4.9); Absolute Monocytes 0.5 K/uL (0.1-1.3); Absolute Neutrophil 3.6 K/uL (1.8-8.0); Basophils % 0.7 % (0-1.3); Eosinophils % 0.3 % (0-4.4); Hematocrit 23.2 % (39.6-49.0); Lymphocytes % 15.2 % (15.3-44.8); MCH 34.1 pg (27.0-35.0); MCV 95.6 fL (80-100); MPV 8.3 fL (7.6-11.3); Monocytes % 10.9 % (3.3-12.3); RBC Red Blood Cell Count 2.42 M/uL (4.33-5.43)
[2018-05-28 06:32] LABS: Albumin 3.1 g/dL (3.4-5.0); Bilirubin Total 0.6 mg/dL (0.2-1.0); Phosphorus 3.3 mg/dL (2.5-4.9); Protein, Total 6.8 g/dL (6.4-8.2)
[2018-05-28] MEDS: SEVELAMER CARBONATE 800 MG TABLET PO SCH ×2 (08:00→11:47)
[2018-05-28] MEDS ORDERED: CALCITROL 0.25 MCG CAP PO SCH (09:00)
[2018-05-28] MEDS ORDERED: VITAMIN D 5,000 UNIT CAP PO SCH (09:00)
[2018-05-28] MEDS ORDERED: AMLODIPINE 10 MG TAB PO SCH (09:00)
[2018-05-28] MEDS: BISACODYL E.C. 5 MG TAB PO SCH (09:00)
[2018-05-28 12:11] VITALS: O2SAT 96
[2018-05-28 15:01] VITALS: TEMP 98
[2018-05-28 15:15] VITALS: BP 147/81
--- NOTE | 2018-05-28 16:17 | P.DS ---
Admission Date: 05/26/18 Discharge Date: 05/28/18 Primary Care Provider: Dr Aguirre - PCP and Nephrology Disposition: AMA-LEFT AGAINST MEDICAL ADVIC Reason for Admission: SOB - Problems (1) Acute respiratory failure Onset Date: 05/27/18 Status: Acute Qualifiers: Respiratory failure complication: hypoxia Qualified Code(s): J96.01 - Acute respiratory failure with hypoxia (2) Acute on chronic diastolic CHF (congestive heart failure) Onset Date: 05/07/18 Status: Acute (3) End stage renal disease Onset Date: 05/27/18 Status: Chronic (4) Anemia Onset Date: 02/21/16 Status: Chronic Qualifiers: Anemia type: due to chronic kidney disease Chronic kidney disease stage: on chronic dialysis Qualified Code(s): N18.6 - End stage renal disease; D63.1 - Anemia in chronic kidney disease; Z99.2 - Dependence on renal dialysis (5) Coronary artery disease Onset Date: 07/15/17 Status: Chronic Qualifiers: Coronary Disease-Associated Artery/Lesion type: [place] artery [place] vs. transplanted heart: [place] heart Associated angina: without angina Qualified Code(s): I25.10 - Atherosclerotic heart disease of [place] coronary artery without angina pectoris (6) Diabetes mellitus Onset Date: 07/15/17 Status: Chronic Qualifiers: Diabetes mellitus type: type 2 Diabetes mellitus jail insulin use: with jail use Diabetes mellitus complication status: with kidney complications Chronic kidney disease stage: on chronic dialysis (7) Hypertension Onset Date: 02/21/16 Status: Chronic Qualifiers: Hypertension type: essential hypertension Qualified Code(s): I10 - Essential (primary) hypertension (8) Liver cirrhosis Onset Date: 12/15/17 Status: Chronic Qualifiers: Hepatic cirrhosis type: unspecified hepatic cirrhosis Ascites presence: without ascites Qualified Code(s): K74.60 - Unspecified cirrhosis of liver Brief History of Present Illness: Mr. Quarles is a 77-year-old male with history of CAD status post CABG, chronic anemia, insulin-dependent diabetes mellitus, end stage renal disease on HD, hypertension, presented to the ER with complains of been feeling progressively short of breath for the last couple of days, and recent Exposure to TB with His mother. Pt has been noncompliance with medication in the past and has been seen in the hospital for quite some time frequently for similar Complains. Pt Has been coughing and having chills per family. However this Symptoms have been chronic and no new changes have been noted on that. Last HD session was yesterday. Family called EMS and upon arrival pt Oxygen was 79% and thus pt was brought to the hospital for further care. In the ER patient continued to be Hypoxic and In Acute distress and thus was admitted for further care. Hospital Course: Overall during the hospital stay patient remained stable This is a noncompliant patient who has multiple visits to the hospital here in [place] along with nearby hospital [facility] as well. Patient presented to the hospital this time with shortness of breath and was found to have acute respiratory failure most likely secondary to volume overload secondary to CHF worse is end-stage renal disease. Patient has been going to dialysis however has not been able to complete full sessions due to having pain along with shortness of breath. Patient then went came to the ER and saturations of 90 70- 80% and thus was admitted to the hospital for further care. Nephrology was consulted at that time and did hemodialysis in the hospital and patient had marked resolution of his symptoms. Patient also had a positive exposure to active TB patient in the sputum culture was collected which turned out to be negative. Patient was then advised to continue with dialysis here in the hospital today and tomorrow and then be discharged home if his symptoms resolved. Patient however refused to stay here in the hospital and left AMA and stated that if he feels worse he will come back to the ER but right now he will was educated extensively on the need dialysis here in the hospital however if he continues to refuse the care provided at the hospital. Patient thus was given a paper to sign for against medical advice and patient was handed over to the family member who took him home. Nephrology was notified who will be contacting patient tomorrow for dialysis session at the outside unit Vital Signs/Physical Exam: Temp Pulse Resp BP Pulse Ox 98.0 F 80 16 147/81 H 100 05/28/18 12:00 05/28/18 14:00 05/28/18 14:00 05/28/18 14:00 05/28/18 14:00 General: Alert, Mild distress HEENT: Atraumatic, PERRLA, EOMI Neck: Supple, JVD not distended Respiratory: Clear to auscultation bilaterally, Normal air movement Cardiovascular: Regular rate/rhythm, Normal S1 S2 Gastrointestinal: Normal bowel sounds, No tenderness Musculoskeletal: No tenderness Integumentary: No rashes Neurological: Normal speech, Normal tone, Normal affect Lymphatics: No axilla or inguinal lymphadenopathy Laboratory Data at Discharge: WBC 4.9 K/uL (4.3-10.9) 05/28/18 05:59 Hgb 8.3 g/dL (13.6-17.9) L 05/28/18 05:59 Hct 23.2 % (39.6-49.0) L 05/28/18 05:59 Plt Count 217 K/uL (152-406) D 05/28/18 05:59 PT 14.5 SECONDS (9.5-12.5) H 05/26/18 13:16 INR 1.23 05/26/18 13:16 Sodium 138 mmol/L (136-145) 05/28/18 05:59 Potassium 4.0 mmol/L (3.5-5.1) 05/28/18 05:59 BUN 22 mg/dL (7-18) H 05/28/18 05:59 Creatinine 3.40 mg/dL (0.55-1.3) H 05/28/18 05:59 Glucose 98 mg/dL (74-106) 05/28/18 05:59 Phosphorus 3.3 mg/dL (2.5-4.9) 05/28/18 05:59 Magnesium 2.0 mg/dL (1.8-2.4) 05/28/18 05:59 Total Bilirubin 0.6 mg/dL (0.2-1.0) 05/28/18 05:59 AST 16 U/L (15-37) 05/28/18 05:59 ALT 15 U/L (12-78) 05/28/18 05:59 Alkaline Phosphatase 89 U/L (45-117) 05/28/18 05:59 Home Medications: Atorvastatin Calcium [Lipitor*] 10 mg PO BEDTIME 12/15/17 Amlodipine [Norvasc*] 10 mg PO DAILY 03/15/18 clonazePAM [Clonazepam] 0.5 mg PO TID PRN 05/06/18 Bisacodyl [Laxative] 5 mg PO BID 05/26/18 Tramadol HCl/Acetaminophen [Tramadol-Acetaminophn 37.5-325] 1 each PO Q8H PRN Trazodone HCl 100 mg PO BEDTIME 05/26/18
== END 2018-05-28 14:15 | disposition left against medical advice (07) | DRG 291 ==
LOC: ER 12:53 → ERHOLD 17:20 → 3RD-ICU 20:32
PROVIDERS: ADMIT Family Medicine; ATTEND Family Medicine
PROC: 5A1D70Z Performance of Urinary Filtration, Intermittent, Less than 6 Hours Per Day (ICD-10-PCS; principal; 2018-05-27)
PROC: 5A1D70Z Performance of Urinary Filtration, Intermittent, Less than 6 Hours Per Day (ICD-10-PCS; 2018-05-28)
DX: I50.33 Acute on chronic diastolic (congestive) heart failure (principal); J96.01 Acute respiratory failure with hypoxia; N18.6 End stage renal disease; I13.2 Hypertensive heart and chronic kidney disease with heart failure and with stage 5 chronic kidney disease, or end stage renal disease; N25.81 Secondary hyperparathyroidism of renal origin; I25.10 Atherosclerotic heart disease of native coronary artery without angina pectoris; E11.22 Type 2 diabetes mellitus with diabetic chronic kidney disease; Z99.2 Dependence on renal dialysis; Z79.4 Long term (current) use of insulin; K74.60 Unspecified cirrhosis of liver; Z95.1 Presence of aortocoronary bypass graft; Z91.14 Patient's other noncompliance with medication regimen; J44.9 Chronic obstructive pulmonary disease, unspecified; I25.2 Old myocardial infarction; D63.1 Anemia in chronic kidney disease; N25.0 Renal osteodystrophy
CPT/HCPCS: 36415; 71045; 80048; 80053; 80076; 83735; 83880; 84100; 84484; 85025; 85610; 86317; 87040; 87070; 87205; 90935; 93005; 94760; 99285; J1644; J3486; Q4081

== ENCOUNTER 2018-07-27 10:37 | Emergency (ER) | payer OTHER ==
--- OUTSIDE RECORDS SUMMARY | 2018-07-27 10:40 | XMS REPORT ---
:1940 [facility] Address [address] [place] [address] Dr. Manley [address] [place] [id number] Care Team Providers Name Role Phone LAZRODNEY [...] Comments CULTURE (BEAKER) (test PSEUDOMONAS 70-79,000 col/mL mxam=5509) AERUGINOSA Pseudomonas aeruginosa Amikacin (test code=1) Susceptible [...] code=25) Resistant <0 or >4 URINALYSIS W/ [id number] 12:06:00 Test Item Value Reference Range Comments COLOR (BEAKER) (test ieum=320) Yellow CLARITY (BEAKER) (test zuva=511) Hazy SPECIFIC GRAVITY UA (BEAKER) (test soap=468) 1.012 1.001-1.035 PH UA (BEAKER) (test blea=359) 6.0 5.0-8.0 PROTEIN UA (BEAKER) (test bppt=400) 600 mg/dL Negative GLUCOSE UA (BEAKER) (test efgk=797) 100 mg/dL Negative KETONES UA (BEAKER) (test grwn=094) Negative Negative BILIRUBIN UA (BEAKER) (test ekui=817) Negative Negative BLOOD UA (BEAKER) (test ddpz=676) Moderate Negative NITRITE UA (BEAKER) (test aazr=318) Negative Negative LEUKOCYTE ESTERASE UA (BEAKER) (test avbr=175) Small Negative UROBILINOGEN UA (BEAKER) (test naxd=777) 0.2 mg/dL 0.2-1.0 RBC UA (BEAKER) (test lajc=409) 27 /HPF WBC UA (BEAKER) (test aqof=547) 12 /HPF BACTERIA (BEAKER) (test ljbm=771) Occasional MUCUS (BEAKER) (test bisv=3643) Rare SQUAMOUS EPITHELIAL (BEAKER) (test ngay=650) < /HPF HYALINE CASTS (BEAKER) (test kynf=901) 2 /LPF GRANULAR CASTS (BEAKER) (test ydex=140) 5 /LPF SOURCE(BEAKER) (test kkza=6117) Urine, Yusuf CT, [id number] 15:15:00Reason for exam:->ABDOMINAL PAINWhat is the patient's [...] Verified Date/ Time: 03/01/2018 15:15:27 Reading Location: [address] Body Reading Room BASIC METABOLIC [id number] 11:04:00 Test Item Value Reference Range Comments SODIUM (BEAKER) (test 136 meq/L 136-145 qzwp=320) POTASSIUM (BEAKER) (test 4.0 meq/L 3.5-5.1 zxku=047) CHLORIDE (BEAKER) (test 108 meq/L 98-107 vtbd=334) CO2 (BEAKER) (test 15 meq/L 22-29 swkv=801) BLOOD UREA NITROGEN 80 mg/dL 7-21 (BEAKER) (test tffy=840) CREATININE (BEAKER) (test 4.79 mg/dL 0.57-1.25 jwel=089) GLUCOSE RANDOM (BEAKER) 84 mg/dL 70-105 (test gffz=452) CALCIUM (BEAKER) (test 8.9 mg/dL 8.4-10.2 qkxk=856) EGFR (BEAKER) (test 12 mL/min/1.73 sq m ESTIMATED GFR IS NOT zwmu=4156) ACCURATE CREATININE CLEARANCE IN PREDICTING GLOMERULAR FILTRATION RATE. ESTIMATED GFR IS NOT APPLICABLE FOR DIALYSIS PATIENTS. [id number] 11:02:00 Test Item Value Reference Range Comments LIPASE (BEAKER) (test ziux=634) 61 U/L 8-78 [id number] 11:02:00 Test Item Value Reference Range Comments AMYLASE (BEAKER) (test wspn=322) 113 U/L 25-125 HEPATIC FUNCTION [id number] 11:02:00 Test Item Value Reference Range Comments TOTAL PROTEIN (BEAKER) (test iinj=976) 6.8 gm/dL 6.0-8.3 ALBUMIN (BEAKER) (test zahj=4776) 3.5 g/dL 3.5-5.0 BILIRUBIN TOTAL (BEAKER) (test mfsw=589) 0.4 mg/dL 0.2-1.2 BILIRUBIN DIRECT (BEAKER) (test hcrr=202) 0.2 mg/dL 0.1-0.5 ALKALINE PHOSPHATASE (BEAKER) (test iwqx=667) 78 U/L 40-150 AST (SGOT) (BEAKER) (test besw=719) 20 U/L 5-34 ALT (SGPT) (BEAKER) (test zfiq=611) 21 U/L 6-55 URINALYSIS W/ [id number] 11:01:00 Test Item Value Reference Range Comments COLOR (BEAKER) (test avfx=257) Light Yellow CLARITY (BEAKER) (test ifny=610) Clear SPECIFIC GRAVITY UA (BEAKER) (test wloh=303) 1.006 1.001-1.035 PH UA (BEAKER) (test cble=230) 6.0 5.0-8.0 PROTEIN UA (BEAKER) (test detq=159) 300 mg/dL Negative GLUCOSE UA (BEAKER) (test uyrp=258) 30 mg/dL Negative KETONES UA (BEAKER) (test vudd=697) Negative Negative BILIRUBIN UA (BEAKER) (test xiqb=555) Negative Negative BLOOD UA (BEAKER) (test uayw=715) Trace Negative NITRITE UA (BEAKER) (test ktby=842) Negative Negative LEUKOCYTE ESTERASE UA (BEAKER) (test kymj=697) Negative Negative UROBILINOGEN UA (BEAKER) (test ebxa=947) 0.2 mg/dL 0.2-1.0 RBC UA (BEAKER) (test wyml=536) < /HPF WBC UA (BEAKER) (test jsnb=547) < /HPF BACTERIA (BEAKER) (test wlor=554) Rare MUCUS (BEAKER) (test rnbt=6428) Rare SOURCE(BEAKER) (test gcbx=4106) Urine, Voided CBC W/PLT COUNT & AUTO [id number] 10:49:00 Test Item Value Reference Range Comments WHITE BLOOD CELL COUNT (BEAKER) (test xbnn=817) 5.6 K/ L 3.5-10.5 RED BLOOD CELL COUNT (BEAKER) (test aedu=588) 3.10 M/ L 4.63-6.08 HEMOGLOBIN (BEAKER) (test qays=715) 9.8 GM/DL 13.7-17.5 HEMATOCRIT (BEAKER) (test gukv=050) 29.7 % 40.1-51.0 MEAN CORPUSCULAR VOLUME (BEAKER) (test mbdz=801) 95.8 fL 79.0-92.2 MEAN CORPUSCULAR HEMOGLOBIN (BEAKER) (test 31.6 pg 25.7-32.2 ekri=738) MEAN CORPUSCULAR HEMOGLOBIN CONC (BEAKER) (test 33.0 GM/DL 32.3-36.5 qrgg=345) RED CELL DISTRIBUTION WIDTH (BEAKER) (test 14.0 % 11.6-14.4 ilox=051) PLATELET COUNT (BEAKER) (test ubdj=740) 171 K/CU MM 150-450 MEAN PLATELET VOLUME (BEAKER) (test aejc=630) 11.1 fL 9.4-12.4 NUCLEATED RED BLOOD CELLS (BEAKER) (test 0 /100 WBC 0-0 bwhl=375) NEUTROPHILS RELATIVE PERCENT (BEAKER) (test 69 % qqfb=663) LYMPHOCYTES RELATIVE PERCENT (BEAKER) (test 16 % nycs=618) MONOCYTES RELATIVE PERCENT (BEAKER) (test 10 % ytzn=075) EOSINOPHILS RELATIVE PERCENT (BEAKER) (test 4 % qywc=471) BASOPHILS RELATIVE PERCENT (BEAKER) (test 1 % wupt=451) NEUTROPHILS ABSOLUTE COUNT (BEAKER) (test 3.88 K/ L 1.78-5.38 jmio=031) LYMPHOCYTES ABSOLUTE COUNT (BEAKER) (test 0.88 K/ L 1.32-3.57 csyl=048) MONOCYTES ABSOLUTE COUNT (BEAKER) (test 0.56 K/ L 0.30-0.82 pahj=030) EOSINOPHILS ABSOLUTE COUNT (BEAKER) (test 0.25 K/ L 0.04-0.54 uhjf=989) BASOPHILS ABSOLUTE COUNT (BEAKER) (test 0.03 K/ L 0.01-0.08 miis=932) IMMATURE GRANULOCYTES-RELATIVE PERCENT (BEAKER) 0 % 0-1 (test hmyg=3680)
--- NOTE | 2018-07-27 11:59 | RAD REPORT ---
EXAM DESCRIPTION: Eliu Single View07/27/2018 11:47 am CLINICAL HISTORY: Shortness of breath COMPARISON: May 2018 FINDINGS: Mild bilateral pulmonary opacities are seen. Small bilateral pleural effusions are presen t. . The heart is mildly enlarged. Postsurgical changes involve the chest. IMPRESSION: CHF
--- NOTE | 2018-07-27 12:26 | EKG ---
Test Date: 2018-07-27 Test Time: 10:50:23 Streetcar Conductor: CHEY MEASUREMENT RESULTS: Intervals: Rate: 79 RI: 168 QRSD: 90 QT: 394 QTc: 451 [place]: P: 78 RI: 168 QRS: -45 T: 81 INTERPRETIVE STATEMENTS: Sinus rhythm with occasional premature ventricular complexes Possible Left atrial enlargement Left axis deviation Anteroseptal infarct, age undetermined Abnormal ECG Compared to ECG 05/26/2018 13:14:31 No significant changes Electronically Signed On 07-27-18 12:25:29 FLOOR COVERINGS SALESPERSON by Brandon Pérez
[2018-07-27 13:15] LABS: Absolute Lymphocytes (CBC) 0.7 K/uL (0.7-4.9); Absolute Monocytes 0.5 K/uL (0.1-1.3); Absolute Neutrophil 3.7 K/uL (1.8-8.0); Basophils % 0.6 % (0-1.3); Eosinophils % 2.6 % (0-4.4); Hematocrit 37.6 % (39.6-49.0); Lymphocytes % 13.2 % (15.3-44.8); Monocytes % 9.8 % (3.3-12.3); Protime INR 1.18; RBC Red Blood Cell Count 3.97 M/uL (4.33-5.43)
[2018-07-27 14:16] LABS: Albumin 3.8 g/dL (3.4-5.0); Bilirubin Direct 0.4 mg/dL (0-0.2); Bilirubin Total 0.9 mg/dL (0.2-1.0); Magnesium 2.3 mg/dL (1.8-2.4); Potassium 3.9 mmol/L (3.5-5.1); Protein, Total 8.1 g/dL (6.4-8.2); Troponin (Emerg Dept Use Only) 0.04 ng/mL (0.0-0.045)
--- NOTE | 2018-07-27 14:45 | ER ---
Nurse's Notes [facility] Name: Blaise Quarles Age: 77 yrs Sex: Male : 1940 Arrival Date: 07/27/2018 Time: 10:40 Bed 23 Private MD: out of town, doctor Diagnosis: Presentation: 07/27 10:48 Presenting complaint: Child states: Hes said his chest has been hurting for the last sg couple of days, worsening today, reports a cough with nasal drainage that is clear, denies N/V/D, unsure if any fever at home. Transition of care: patient was not received from another setting of care. Onset of symptoms was July 27, 2018. Risk Assessment: Do you want to hurt yourself or someone else? Patient reports no desire to harm self or others. Initial Sepsis Screen: Does the patient meet any 2 criteria? No. Patient's initial sepsis screen is negative. Does the patient have a suspected source of infection? No. Patient's initial sepsis screen is negative. Care prior to arrival: None. 10:48 Method Of Arrival: Wheelchair sg 10:48 Acuity: SARATH 3 sg Triage Assessment: 11:04 General: pt requesting to stay in wheelchair at this time, refusing to get in the exam sg room bed. Historical: - Allergies: 10:49 Aspirin; sg - Home Meds: 11:09 Risperdal 0.5 mg oral tab 1 tabs 2 times per day [Active]; atorvastatin 10 mg Oral tab aj 1 tab nightly [Active]; amlodipine 10 mg tab 1 tab once daily [Active]; glipizide 10 mg Oral tab 1 tab 2 times per day [Active]; clonazepam 1 mg Oral tab 1 tab 2 times per day [Active]; trazodone 100 mg Oral tab 1 tab nightly [Active]; tramadol-acetaminophen 37.5-325 mg Oral tab 1 tabs every 8 hours for Pain [Active]; 11:10 nitroglycerin 0.4 mg SL subl 1 tab [Active]; aj - PMHx: 10:49 Anemia; CAD; cardiomegaly; CHF; chronic renal disease; Cirrhosis; Diabetes - IDDM; sg Dialysis; High Cholesterol; Hypertension; Myocardial infarction; pleural effusion; pulmonary nodule; Visually impared; - PSHx: 10:49 CABG; Heart stents; sg - Immunization history:: Adult Immunizations up to date. - Social history:: Smoking status: unknown. - Ebola Screening: : Patient negative for fever greater than or equal to 101.5 degrees Fahrenheit, and additional compatible Ebola Virus Disease symptoms Patient denies exposure to infectious person Patient denies travel to an Ebola-affected area in the 21 days before illness onset No symptoms or risks identified at this time. Screenin:02 Abuse screen: Denies threats or abuse. Denies injuries from another. Nutritional aj screening: No deficits noted. Tuberculosis screening: No symptoms or risk factors identified. Fall Risk None identified. Assessment: 11:01 General: Appears in no apparent distress. comfortable, Behavior is cooperative, aj anxious. Pain: Complains of pain in chest Pain does not radiate. Pain began suddenly. Neuro: Level of Consciousness is awake, alert, obeys commands, Oriented to person, place, time, situation, Appropriate for age. Cardiovascular: Reports chest pain, shortness of breath, Capillary refill < 3 seconds in bilateral fingers Patient's skin is warm and dry. Respiratory: Reports shortness of breath Airway is patent Respiratory effort is even, unlabored, Respiratory pattern is symmetrical, tachypnea. GI: Abdomen is non-distended. Derm: Skin is intact, is healthy with good turgor, Skin is pink, warm \\T\\ dry. normal. 11:55 Reassessment: Patient requesting to leave AMA. Physician notified. Physician spoke with aj family about concerns for patient leaving against medical advice. 12:27 Reassessment: Patient continues to request to leave AMA. is at bedside, along with aj son and son-in-law, and they are discussing the situation with the patient. Unable to obtain labs and IV at this time due to patient refusal. 12:38 Reassessment: Patient's son informed me that patient has agreed to stay and be treated. aj Family informed that patient needs to be placed in gown and that IV must be inserted and labs be drawn. Family stated "well you know he has dementia and he can be difficult. I will go talk to him and tell him about the IV and the blood work. I'm going to step out and get one of the girls to come help him get undressed.". 13:00 Reassessment: Patient reports body aches and cough. aj 13:24 Reassessment: Patient requesting meal tray. aj 14:30 Reassessment: Patient appears in no apparent distress at this time. No changes from aj previously documented assessment. Patient and/or family updated on plan of care and expected duration. Pain level reassessed. Patient is alert, oriented x 3, equal unlabored respirations, skin warm/dry/pink. Family at bedside. 15:45 Reassessment: Patient appears in no apparent distress at this time. No changes from aj previously documented assessment. Patient and/or family updated on plan of care and expected duration. Pain level reassessed. Patient is alert, oriented x 3, equal unlabored respirations, skin warm/dry/pink. Family is at bedside. 16:36 Reassessment: Patient appears in no apparent distress at this time. No changes from aj previously documented assessment. Patient and/or family updated on plan of care and expected duration. Pain level reassessed. Patient is alert, oriented x 3, equal unlabored respirations, skin warm/dry/pink. family inquiring about bed assignment for patient and dialysis. 17:39 Reassessment: Patient refused to be admitted, daughter signed AMA form. Instructed on iw need to stay for medical treatment. Vital Signs: 10:50 BP 161 / 81; Pulse 77; Resp 24; Temp 97.7; Pulse Ox 96% on 3 lpm NC; Pain 7/10; sg 12:59 BP 182 / 88; Pulse 75; Resp 20; Pulse Ox 99% on 2 lpm NC; aj 14:30 BP 171 / 76; Pulse 74; Resp 17; Pulse Ox 95% on 2 lpm NC; aj 15:30 BP 181 / 85; Pulse 91; Resp 16; Pulse Ox 99% on R/A; aj 16:32 BP 150 / 91; Pulse 82; Resp 17; Pulse Ox 99% on 2 lpm NC; aj ED Course: 10:40 Patient arrived in ED. mr 10:40 out of town, doctor is Private Physician. mr 10:41 Uriel Santos MD is Attending Physician. gs 10:49 Triage completed. sg 10:49 Arm band placed on. sg 10:51 Juliana Gabriel, RN is Primary Nurse. aj 11:06 EKG done, by photo tech. reviewed by Uriel Santos MD. 3 11:48 XRAY Chest (1 view) In Process Unspecified. EDMS 12:59 Inserted saline lock: 20 gauge in left forearm, using aseptic technique. Blood aj collected. 13:27 Diet: Dietary informed meal tray was ordered for MALCOLM. bd 13:32 Patient has correct armband on for positive identification. Placed in gown. Adult w/ aj patient. hall monitor on. Pulse ox on. NIBP on. Diet tray ordered. urinal provided per patient request. Family to assist. 14:44 Ivon Mckeon MD is Hospitalizing Provider. gs 17:40 No provider procedures requiring assistance completed. IV discontinued, intact, iw bleeding controlled, No redness/swelling at site. Pressure dressing applied. Oxygen administration via nasal cannula \\T\\ 2L/min. 17:41 Primary Nurse role handed off by Juliana Gabriel RN iw Administered Medications: No medications were administered Outcome: 14:45 Decision to Hospitalize by Provider. 17:40 AMA AMA form signed iw 17:40 Condition: unchanged 17:40 Instructed on risks of leaving AMA 17:41 Patient left the ED. iw 17:42 Patient left the ED. iw Signatures: Dispatcher [employer] EDMS Ronna Byrd Steven, RN Juliana Forte RN Tyesha Beck Irene, RN HUONG Uriel Santos MD MD gs Montes, Shakira sm3 Corrections: (The following items were deleted from the chart) 10:51 10:50 Pulse 77bpm; Resp 24bpm; Pulse Ox 94% 3 lpm Nasal Cannula; Temp 97.7F; Pain 7/10; sg sg 14:30 12:59 BP 182 / 88; Pulse 75bpm; Resp 20bpm; Pulse Ox 99% RA; aj aj 16:35 13:24 Reassessment: Patient requesting meal tray. aj aj
--- NOTE | 2018-07-27 14:45 | EDPHYS ---
Physician Documentation [facility] Name: Blaise Quarles Age: 77 yrs Sex: Male : 1940 Arrival Date: 07/27/2018 Time: 10:40 Bed 23 Private MD: out of town, doctor ED Physician Uriel Santos HPI: 07/27 18:08 This 77 yrs old Male presents to ER via Wheelchair with complaints of anxiety gs sob. 18:08 The patient presents to the emergency department with anxiety. Onset: The gs symptoms/episode began/occurred 1 week(s) ago. Associated signs and symptoms: Pertinent positives; chest pain, shortness of breath. Severity of symptoms: At their worst the symptoms were moderate in the emergency department the symptoms are unchanged. The patient has experienced similar episodes in the past, several times. recent loss of mother yesterday ran out of anxiety meds missed dialysis. Historical: - Allergies: 10:49 Aspirin; sg - Home Meds: 11:09 Risperdal 0.5 mg oral tab 1 tabs 2 times per day [Active]; atorvastatin 10 mg Oral tab aj 1 tab nightly [Active]; amlodipine 10 mg tab 1 tab once daily [Active]; glipizide 10 mg Oral tab 1 tab 2 times per day [Active]; clonazepam 1 mg Oral tab 1 tab 2 times per day [Active]; trazodone 100 mg Oral tab 1 tab nightly [Active]; tramadol-acetaminophen 37.5-325 mg Oral tab 1 tabs every 8 hours for Pain [Active]; 11:10 nitroglycerin 0.4 mg SL subl 1 tab [Active]; aj - PMHx: 10:49 Anemia; CAD; cardiomegaly; CHF; chronic renal disease; Cirrhosis; Diabetes - IDDM; sg Dialysis; High Cholesterol; Hypertension; Myocardial infarction; pleural effusion; pulmonary nodule; Visually impared; - PSHx: 10:49 CABG; Heart stents; sg - Immunization history:: Adult Immunizations up to date. - Social history:: Smoking status: unknown. - Ebola Screening: : Patient negative for fever greater than or equal to 101.5 degrees Fahrenheit, and additional compatible Ebola Virus Disease symptoms Patient denies exposure to infectious person Patient denies travel to an Ebola-affected area in the 21 days before illness onset No symptoms or risks identified at this time. ROS: 18:08 All other systems are negative. gs Exam: 18:08 Head/Face: Normocephalic, atraumatic. Eyes: Pupils equal round and reactive to light, gs extra-ocular motions intact. Lids and lashes normal. Conjunctiva and sclera are non-icteric and not injected. Cornea within normal limits. Periorbital areas with no swelling, redness, or edema. ENT: Nares patent. No nasal discharge, no septal abnormalities noted. Tympanic membranes are normal and external auditory canals are clear. Oropharynx with no redness, swelling, or masses, exudates, or evidence of obstruction, uvula midline. Mucous membranes moist. Neck: Trachea midline, no thyromegaly or masses palpated, and no cervical lymphadenopathy. Supple, full range of motion without nuchal rigidity, or vertebral point tenderness. No Meningismus. Chest/axilla: Normal chest wall appearance and motion. Nontender with no deformity. No lesions are appreciated. Cardiovascular: Regular rate and rhythm with a normal S1 and S2. No gallops, murmurs, or rubs. Normal PMI, no JVD. No pulse deficits. 18:08 Abdomen/GI: Soft, non-tender, with normal bowel sounds. No distension or tympany. No guarding or rebound. No evidence of tenderness throughout. Back: No spinal tenderness. No costovertebral tenderness. Full range of motion. Skin: Warm, dry with normal turgor. Normal color with no rashes, no lesions, and no evidence of cellulitis. Neuro: Awake and alert, GCS 15, oriented to person, place, time, and situation. Cranial nerves II-XII grossly intact. Motor strength 5/5 in all extremities. Sensory grossly intact. Cerebellar exam normal. Normal gait. 18:08 Constitutional: The patient appears alert, awake. 18:08 Constitutional: The patient appears 18:08 Cardiovascular: Edema: 3+ edema to level of left midcalf and right midcalf. 18:08 Respiratory: Breath sounds: rales, that are mild, are located in both bases. 18:08 Psych: Behavior/mood is depressed. 18:08 ECG was reviewed by the Attending Physician. Vital Signs: 10:50 BP 161 / 81; Pulse 77; Resp 24; Temp 97.7; Pulse Ox 96% on 3 lpm NC; Pain 7/10; sg 12:59 BP 182 / 88; Pulse 75; Resp 20; Pulse Ox 99% on 2 lpm NC; aj 14:30 BP 171 / 76; Pulse 74; Resp 17; Pulse Ox 95% on 2 lpm NC; aj 15:30 BP 181 / 85; Pulse 91; Resp 16; Pulse Ox 99% on R/A; aj 16:32 BP 150 / 91; Pulse 82; Resp 17; Pulse Ox 99% on 2 lpm NC; aj MDM: 10:59 Patient medically screened. gs 18:08 Differential diagnosis: depression, chf, hyperkalemia, mi. Data reviewed: vital signs, gs nurses notes. Counseling: I had a detailed discussion with the patient and/or guardian regarding: the historical points, exam findings, and any diagnostic results supporting the discharge/admit diagnosis, lab results, radiology results, the need for further work-up and treatment in the hospital. ED course: ultimately pt was admitted subsequently pt decided he wanted to leave. 07/27 11:01 Order name: Basic Metabolic Panel; Complete Time: 14:20 07/27 11:01 Order name: CBC with Diff; Complete Time: 14:20 07/27 11:01 Order name: LFT's; Complete Time: 14:20 07/27 11:01 Order name: Magnesium; Complete Time: 14:20 07/27 11:01 Order name: NT PRO-BNP; Complete Time: 14:20 07/27 11:01 Order name: PT-INR; Complete Time: 14:20 07/27 11:01 Order name: Troponin (emerg Dept Use Only); Complete Time: 14:20 07/27 11:01 Order name: XRAY Chest (1 view); Complete Time: 12:51 07/27 11:01 Order name: EKG; Complete Time: 11:06 07/27 11:01 Order name: Cardiac monitoring; Complete Time: 13:19 07/27 11:01 Order name: EKG - Nurse/Tech; Complete Time: 13:19 07/27 11:01 Order name: IV Saline Lock; Complete Time: 13:19 07/27 11:01 Order name: Labs collected and sent; Complete Time: 13: 07/27 13:27 Order name: Diet Renal; Complete Time: 13:27 bd 07/27 11:01 Order name: O2 Per Protocol; Complete Time: 13:19 gs 07/27 11:01 Order name: O2 Sat Monitoring; Complete Time: : EC:08 Rate is 79 beats/min. Rhythm is regular. CT interval is normal. QRS interval is normal. gs T waves are Normal. No ST changes noted. Clinical impression: NSR w/ Non-specific ST/T Changes. Interpreted by me. Administered Medications: No medications were administered Disposition: 07/27/18 17:42 Patient has left against medical advice. - Patients states they are going to Home. - Condition is Undetermined. Signatures: Dispatcher [employer] EDTashi Mccormack RN RN sg Myers, Amanda, RN RN aj Williams, Irene, RN RN iw Solis, Maria ms Starr, Gregory, MD MD Corrections: (The following items were deleted from the chart) 16:55 14:45 Hospitalization Ordered by Ivon Mckeon MD for Observation. Preliminary ms diagnosis is Acute on chronic systolic (congestive) heart failure. Bed requested for Telemetry/MedSurg (observation). Status is Observation. Condition is Stable. Problem is new. Symptoms are unchanged. UTI on Admission? No. gs 17:41 16:55 07/27/2018 14:45 Hospitalization Ordered by Ivno Mckeon MD for Observation. iw Preliminary diagnosis is Acute on chronic systolic (congestive) heart failure. Bed requested for Telemetry/MedSurg (observation). Status is Observation. Condition is Stable. Problem is new. Symptoms are unchanged. UTI on Admission? No. ms 17:42 17:41 07/27/2018 14:45 Hospitalization Ordered by Ivon Mckeon MD for Observation. iw Preliminary diagnosis is Acute on chronic systolic (congestive) heart failure. Bed requested for Telemetry/MedSurg (observation). Status is Observation. Condition is Stable. Problem is new. Symptoms are unchanged. UTI on Admission? No. iw
--- NOTE | 2018-07-27 16:55 | P.HP ---
Certification for Inpatient Patient admitted to: Observation With expected LOS: <2 Midnights Patient will require the following post-hospital care: None Practitioner: I am a practitioner with admitting privileges, knowledge of patient current condition, hospital course, and medical plan of care. Services: Services provided to patient in accordance with Admission requirements found in Title 42 Section 412.3 of the Code of Federal Regulations Patient History Date of Service: 07/27/18 Primary Care Provider: Dr Aguirre Reason for admission: SOB History of Present Illness: Mr. uQarles is a 77-year-old male with history of CAD status post CABG, chronic anemia, insulin-dependent diabetes mellitus, end stage renal disease on HD, hypertension, presented to the ER with complains of been short of breath and he missed hemodialysis for the past week. Pt has been noncompliance with medication in the past and has been seen in the hospital for quite some time frequently for similar Complains. Patient was attending his mother's and thus missed dialysis session during that time. Patient became short of breath and had increasing pain and thus he decided to come to the ER. In the ER patient was found to have acute respiratory distress secondary to volume overload and thus was admitted to the hospital for further care. Allergies aspirin Allergy (Verified 01/11/18 15:42) Nausea/Vomiting No Known Allergies Allergy (Uncoded 01/18/18 10:03) Unknown Home Medications: Atorvastatin Calcium [Lipitor*] 10 mg PO BEDTIME 12/15/17 Amlodipine [Norvasc*] 10 mg PO DAILY 03/15/18 clonazePAM [Clonazepam] 0.5 mg PO TID PRN 05/06/18 Bisacodyl [Laxative] 5 mg PO BID 05/26/18 Tramadol HCl/Acetaminophen [Tramadol-Acetaminophn 37.5-325] 1 each PO Q8H PRN Trazodone HCl 100 mg PO BEDTIME 05/26/18 - Past Medical/Surgical History Diabetic: Yes -: COPD -: CHF -: ANEMIA -: CAD -: cardiomegaly -: chronic renal disease -: cirrhosis -: diabetes -: hyperlipidemia -: OK -: HTN -: PE -: Repair of left finger fracture -: CABG -: cardiac stents -: gillian placement Psychosocial/ Personal History: He is 56 years, has 13 children, he does not work. - Family History Father -: GI disease Notes: none per pt - Social History Alcohol use: No CD- Drugs: No Caffeine use: Yes Review of Systems 10-point ROS is otherwise unremarkable Physical Examination - Physical Exam General: Alert, In no apparent distress, Cachectic HEENT: Atraumatic, PERRLA, Mucous membr. moist/pink, EOMI, Sclerae nonicteric Neck: Supple, 2+ carotid pulse no bruit, No LAD, Without JVD or thyroid abnormality Respiratory: Normal air movement, Crackles/rales, Expiratory wheezes, Inspiratory wheezes Cardiovascular: Regular rate/rhythm, Normal S1 S2 Gastrointestinal: Normal bowel sounds, No tenderness Musculoskeletal: No tenderness Integumentary: No rashes Neurological: Normal speech, Normal strength at 5/5 x4 extr, Normal tone Lymphatics: No axilla or inguinal lymphadenopathy - Studies Laboratory Data (last 24 hrs) 07/27/18 12:57: PT 14.0 H, INR 1.18 07/27/18 12:57: WBC 5.0, Hgb 12.7 L, Hct 37.6 L, Plt Count 172 07/27/18 12:57: Sodium 136, Potassium 3.9, BUN 30 H, Creatinine 4.76 H, Glucose 80, Magnesium 2.3, Total Bilirubin 0.9, AST 11 L, ALT 15, Alkaline Phosphatase 104 Assessment and Plan - Problems (Diagnosis) (1) Missed dialysis Current Visit: Yes Status: Acute Plan: Missed dialysis causing volume overaload -Nephrology consulted. Awaiting Reccs -Will dialyze him today or gunjan AM -Monitor closely for worsening of Volume overload (2) CHF exacerbation Onset Date: 01/12/18 Current Visit: No Status: Acute (3) Coronary artery disease Onset Date: 07/15/17 Current Visit: No Status: Chronic Qualifiers: (4) Diabetes mellitus Onset Date: 07/15/17 Current Visit: No Status: Chronic (5) End stage renal disease Onset Date: 05/27/18 Current Visit: No Status: Chronic (6) Hypertension Onset Date: 02/21/16 Current Visit: No Status: Chronic Qualifiers: (7) Liver cirrhosis Onset Date: 12/15/17 Current Visit: No Status: Chronic Qualifiers: - Plan The patient will be admitted to the hospital for the treatment of acute respiratory distress secondary to volume overload secondary to missed dialysis. Will get nephrology consulted. Will arrange for patient to get hemodialysis here. Once patient is hemodialysis patient can then be discharged home if symptoms resolve. Anticipate discharge in next 24-48 hr. Discharge Plan: Home Plan to discharge in: 48 Hours - Advance Directives Does patient have a Living Will: No Does patient have a Durable POA for Healthcare: No - Code Status/Comfort Care Code Status Assessed: Yes Critical Care: No
[2018-07-27 18:26] VITALS: TEMP 97.7
[2018-07-27 18:30] VITALS: O2SAT 99
[2018-07-27 18:32] VITALS: BP 150/91
== END 2018-07-27 17:42 | disposition left against medical advice (07) ==
LOC: ER 10:37 → UNDOADMOB 16:15 → ERHOLD 16:15 → 2ND 17:10 → ERHOLD 17:10
DX: E87.70 Fluid overload, unspecified (principal); R06.03 Acute respiratory distress; Z53.29 Procedure and treatment not carried out because of patient's decision for other reasons; I25.10 Atherosclerotic heart disease of native coronary artery without angina pectoris; E11.22 Type 2 diabetes mellitus with diabetic chronic kidney disease; I13.2 Hypertensive heart and chronic kidney disease with heart failure and with stage 5 chronic kidney disease, or end stage renal disease; I50.9 Heart failure, unspecified; N18.6 End stage renal disease; Z99.2 Dependence on renal dialysis; I25.2 Old myocardial infarction; D63.1 Anemia in chronic kidney disease; D64.9 Anemia, unspecified; E78.00 Pure hypercholesterolemia, unspecified; J44.9 Chronic obstructive pulmonary disease, unspecified; K74.60 Unspecified cirrhosis of liver; Z79.4 Long term (current) use of insulin; Z79.899 Other long term (current) drug therapy; Z95.1 Presence of aortocoronary bypass graft; Z95.5 Presence of coronary angioplasty implant and graft; Z86.711 Personal history of pulmonary embolism
CPT/HCPCS: 36415; 71045; 80048; 80076; 83735; 83880; 84484; 85025; 85610; 93005; 99285

== ENCOUNTER 2018-08-03 09:39 | Inpatient (IN) | payer OTHER ==
--- OUTSIDE RECORDS SUMMARY | 2018-08-03 10:00 | XMS REPORT ---
:1940 [facility] Address [address] [place] [address] Dr. Manley [address] [place] [id number] Care Team Providers Name Role Phone LAZRODNEY [...] Comments CULTURE (BEAKER) (test PSEUDOMONAS 70-79,000 col/mL nmrc=0174) AERUGINOSA Pseudomonas aeruginosa Amikacin (test code=1) Susceptible [...] code=25) Resistant <0 or >4 URINALYSIS W/ [id number] 12:06:00 Test Item Value Reference Range Comments COLOR (BEAKER) (test qces=021) Yellow CLARITY (BEAKER) (test uupq=034) Hazy SPECIFIC GRAVITY UA (BEAKER) (test ycoe=525) 1.012 1.001-1.035 PH UA (BEAKER) (test uamo=521) 6.0 5.0-8.0 PROTEIN UA (BEAKER) (test csbn=372) 600 mg/dL Negative GLUCOSE UA (BEAKER) (test mbfc=430) 100 mg/dL Negative KETONES UA (BEAKER) (test uhjx=676) Negative Negative BILIRUBIN UA (BEAKER) (test oqyb=811) Negative Negative BLOOD UA (BEAKER) (test vigb=777) Moderate Negative NITRITE UA (BEAKER) (test gquq=286) Negative Negative LEUKOCYTE ESTERASE UA (BEAKER) (test btwh=459) Small Negative UROBILINOGEN UA (BEAKER) (test whzc=021) 0.2 mg/dL 0.2-1.0 RBC UA (BEAKER) (test iaol=398) 27 /HPF WBC UA (BEAKER) (test rwmf=952) 12 /HPF BACTERIA (BEAKER) (test lhuz=675) Occasional MUCUS (BEAKER) (test qdza=1802) Rare SQUAMOUS EPITHELIAL (BEAKER) (test tdtt=018) < /HPF HYALINE CASTS (BEAKER) (test dika=574) 2 /LPF GRANULAR CASTS (BEAKER) (test tiry=770) 5 /LPF SOURCE(BEAKER) (test mluy=5550) Urine, Yusuf CT, [id number] 15:15:00Reason for exam:->ABDOMINAL PAINWhat is the patient's [...] Verified Date/ Time: 03/01/2018 15:15:27 Reading Location: [address] Body Reading Room BASIC METABOLIC [id number] 11:04:00 Test Item Value Reference Range Comments SODIUM (BEAKER) (test 136 meq/L 136-145 ovme=305) POTASSIUM (BEAKER) (test 4.0 meq/L 3.5-5.1 bydu=581) CHLORIDE (BEAKER) (test 108 meq/L 98-107 dxyg=329) CO2 (BEAKER) (test 15 meq/L 22-29 unue=980) BLOOD UREA NITROGEN 80 mg/dL 7-21 (BEAKER) (test qwvr=700) CREATININE (BEAKER) (test 4.79 mg/dL 0.57-1.25 vker=389) GLUCOSE RANDOM (BEAKER) 84 mg/dL 70-105 (test wrkx=032) CALCIUM (BEAKER) (test 8.9 mg/dL 8.4-10.2 ixwz=542) EGFR (BEAKER) (test 12 mL/min/1.73 sq m ESTIMATED GFR IS NOT fkhs=4501) ACCURATE CREATININE CLEARANCE IN PREDICTING GLOMERULAR FILTRATION RATE. ESTIMATED GFR IS NOT APPLICABLE FOR DIALYSIS PATIENTS. [id number] 11:02:00 Test Item Value Reference Range Comments LIPASE (BEAKER) (test awyt=500) 61 U/L 8-78 [id number] 11:02:00 Test Item Value Reference Range Comments AMYLASE (BEAKER) (test qwai=880) 113 U/L 25-125 HEPATIC FUNCTION [id number] 11:02:00 Test Item Value Reference Range Comments TOTAL PROTEIN (BEAKER) (test sozf=346) 6.8 gm/dL 6.0-8.3 ALBUMIN (BEAKER) (test xyxz=5999) 3.5 g/dL 3.5-5.0 BILIRUBIN TOTAL (BEAKER) (test qtnk=198) 0.4 mg/dL 0.2-1.2 BILIRUBIN DIRECT (BEAKER) (test gajy=026) 0.2 mg/dL 0.1-0.5 ALKALINE PHOSPHATASE (BEAKER) (test awbb=825) 78 U/L 40-150 AST (SGOT) (BEAKER) (test bnit=871) 20 U/L 5-34 ALT (SGPT) (BEAKER) (test ximv=212) 21 U/L 6-55 URINALYSIS W/ [id number] 11:01:00 Test Item Value Reference Range Comments COLOR (BEAKER) (test ysdm=377) Light Yellow CLARITY (BEAKER) (test rbln=393) Clear SPECIFIC GRAVITY UA (BEAKER) (test bqmk=051) 1.006 1.001-1.035 PH UA (BEAKER) (test sdeb=503) 6.0 5.0-8.0 PROTEIN UA (BEAKER) (test lbnm=762) 300 mg/dL Negative GLUCOSE UA (BEAKER) (test mqtb=539) 30 mg/dL Negative KETONES UA (BEAKER) (test qtip=708) Negative Negative BILIRUBIN UA (BEAKER) (test ibgw=362) Negative Negative BLOOD UA (BEAKER) (test vuah=931) Trace Negative NITRITE UA (BEAKER) (test venf=436) Negative Negative LEUKOCYTE ESTERASE UA (BEAKER) (test kglm=079) Negative Negative UROBILINOGEN UA (BEAKER) (test kcmn=057) 0.2 mg/dL 0.2-1.0 RBC UA (BEAKER) (test gilz=809) < /HPF WBC UA (BEAKER) (test xnbn=857) < /HPF BACTERIA (BEAKER) (test zvgn=931) Rare MUCUS (BEAKER) (test bwgb=8032) Rare SOURCE(BEAKER) (test ijsd=0951) Urine, Voided CBC W/PLT COUNT & AUTO [id number] 10:49:00 Test Item Value Reference Range Comments WHITE BLOOD CELL COUNT (BEAKER) (test ljtx=714) 5.6 K/ L 3.5-10.5 RED BLOOD CELL COUNT (BEAKER) (test ggfa=257) 3.10 M/ L 4.63-6.08 HEMOGLOBIN (BEAKER) (test xesi=844) 9.8 GM/DL 13.7-17.5 HEMATOCRIT (BEAKER) (test pfhe=952) 29.7 % 40.1-51.0 MEAN CORPUSCULAR VOLUME (BEAKER) (test mntg=146) 95.8 fL 79.0-92.2 MEAN CORPUSCULAR HEMOGLOBIN (BEAKER) (test 31.6 pg 25.7-32.2 zcsc=290) MEAN CORPUSCULAR HEMOGLOBIN CONC (BEAKER) (test 33.0 GM/DL 32.3-36.5 xarh=955) RED CELL DISTRIBUTION WIDTH (BEAKER) (test 14.0 % 11.6-14.4 uuyf=993) PLATELET COUNT (BEAKER) (test usns=107) 171 K/CU MM 150-450 MEAN PLATELET VOLUME (BEAKER) (test brxq=498) 11.1 fL 9.4-12.4 NUCLEATED RED BLOOD CELLS (BEAKER) (test 0 /100 WBC 0-0 efeg=621) NEUTROPHILS RELATIVE PERCENT (BEAKER) (test 69 % bbcs=517) LYMPHOCYTES RELATIVE PERCENT (BEAKER) (test 16 % nsyl=972) MONOCYTES RELATIVE PERCENT (BEAKER) (test 10 % cmcx=468) EOSINOPHILS RELATIVE PERCENT (BEAKER) (test 4 % wxcg=617) BASOPHILS RELATIVE PERCENT (BEAKER) (test 1 % kcrk=217) NEUTROPHILS ABSOLUTE COUNT (BEAKER) (test 3.88 K/ L 1.78-5.38 uilu=191) LYMPHOCYTES ABSOLUTE COUNT (BEAKER) (test 0.88 K/ L 1.32-3.57 wxul=265) MONOCYTES ABSOLUTE COUNT (BEAKER) (test 0.56 K/ L 0.30-0.82 fdbd=340) EOSINOPHILS ABSOLUTE COUNT (BEAKER) (test 0.25 K/ L 0.04-0.54 znqr=287) BASOPHILS ABSOLUTE COUNT (BEAKER) (test 0.03 K/ L 0.01-0.08 moqu=593) IMMATURE GRANULOCYTES-RELATIVE PERCENT (BEAKER) 0 % 0-1 (test mphh=6120)
--- OUTSIDE RECORDS SUMMARY | 2018-08-03 10:00 | XMS REPORT | Clinical Summary ---
:1940 Author Organization [facility] Address [address] [place] [address] Care Team Providers Name Role Phone Moo [...] times daily. 18 0.2-0.5 % ophthalmic solution metoprolol Take 50 mg by 0 03/01/20 [...] 03/01/2018 Orders Only General Internal Medicine after 08/02/2017 Family History Medical History Relation Name Comments [...] 452 ms QTC Calculation(Bazett) 458 ms P [place] 66 degrees R [place] -24 degrees T [place] 140 degrees Normal sinus rhythm Possible Left [...] MICROSCOPIC STAT 03/01/2018 10:19 AM CDT after 08/02/2017 Results Urinalysis w/Microscopic (03/03/2018 11:08 AM CDT)Only the most recent of2 resultswithin the time period is included. Color, UA Yellow [facility] Clarity, UA Hazy [facility] Specific [place], UA 1.012 1.001 - 1.035 [facility] pH, UA 6.0 5.0 - 8.0 [facility] Protein, UA 600 mg/dL (A) Negative [facility] Glucose, UA 100 mg/dL (A) Negative [facility] Ketones, UA Negative Negative [facility] Bilirubin, UA Negative Negative [facility] Blood, UA Moderate (A) Negative [facility] Nitrite, UA Negative Negative [facility] Leukocytes, UA Small (A) Negative [facility] Urobilinogen, UA 0.2 0.2 - 1.0 mg/dL [facility] RBC, UA 27 /HPF [facility] WBC, UA 12 /HPF [facility] Bacteria, UA Occasional [facility] Mucus Rare [facility] Squam Epithel, UA <1 /HPF [facility] Hyaline Casts, UA 2 /LPF [facility] Granular Casts, UA 5 /LPF [facility] Specimen Source Urine, Yusuf [facility] Specimen Urine - Urine, Yusuf Performing Organization Address [facility] Phone Number [facility] [address] [place] [address] [place] Urine culture (03/03/2018 11:08 AM CDT) Result PSEUDOMONAS AERUGINOSA (A) [facility] Specimen Urine - Urine, Yusuf Organism Antibiotic [...] aeruginosa Tobramycin <=2: Susceptible Performing Organization Address [facility] Phone Number [place] [phone] [place] [address] [place] ED ECG Interpretation (03/02/2018 7:12 AM CDT) Narrative Performed At Macrina Gómez MD 03/02/20187:12 AM ECG/EKG Interpretation Date/Time: 03/01/2018 10:25 AM Performed by: MACRINA GÓMEZ. Authorized by: MACRINA GÓMEZ The ECG was interpreted by ED physician. The ECG is interpreted as sinus rhythm. Rate is normal rate. Conduction: conduction normal. ST segments abnormal. T waves abnormal. [place] is normal. Other findings: no other findings. Clinical Impression: non-specific ECG and abnormal ECG CT abdomen pelvis without contrast (03/01/2018 1:46 PM CDT) Narrative Performed At FINAL REPORT [employer] [facility] ABDOMINAL AND PELVIS CT DATED 03/01/2018 CLINICAL [...] MD Report Verified Date/Time:03/01/2018 15:15:27 Reading Location: [facility] C013Y CT Body Reading Room Procedure Note Interface, [...] Report Verified Date/Time: 03/01/2018 15:15:27 Reading Location: [facility] C013Y CT Body Reading Room Performing Organization Address City/State/Zipcode Phone Number GE RIS CBC with platelet count + automated diff (03/01/2018 10:29 AM CDT) WBC 5.6 3.5 - 10.5 K/L [facility] RBC 3.10 (L) 4.63 - 6.08 M/L [facility] Hemoglobin 9.8 (L) 13.7 - 17.5 GM/DL [facility] Hematocrit 29.7 (L) 40.1 - 51.0 % [facility] MCV 95.8 (H) 79.0 - 92.2 fL [facility] MCH 31.6 25.7 - 32.2 pg [facility] MCHC 33.0 32.3 - 36.5 GM/DL [facility] RDW 14.0 11.6 - 14.4 % [facility] Platelets 171 150 - 450 K/CU MM [facility] MPV 11.1 9.4 - 12.4 fL [facility] nRBC 0 0 - 0 /100 WBC [facility] % Neutros 69 % [facility] % Lymphs 16 % [facility] % Monos 10 % [facility] % Eos 4 % [facility] % Baso 1 % [facility] # Neutros 3.88 1.78 - 5.38 K/L [facility] # Lymphs 0.88 (L) 1.32 - 3.57 K/L [facility] # Monos 0.56 0.30 - 0.82 K/L [facility] # Eos 0.25 0.04 - 0.54 K/L [facility] # Baso 0.03 0.01 - 0.08 K/L [facility] Immature Granulocytes-Relative 0 0 - 1 % [facility] Specimen Blood - Arm, Left Performing Organization Address City/[facility]/Zipcode Phone Number [address] [address] [phone] CENTER Lipase (03/01/2018 10:29 AM CDT) Lipase 61 8 - 78 U/L [facility] Specimen Blood - Arm, Left Performing Organization Address City[facility] Phone Number [address] [address] CENTER Amylase (03/01/2018 10:29 AM CDT) Amylase 113 25 - 125 U/L [facility] Specimen Blood - Arm, Left Performing Organization Address [facility] Phone Number [address] [address] [phone] [place] Hepatic function panel (03/01/2018 10:29 AM CDT) Protein, Total 6.8 6.0 - 8.3 gm/dL [facility] Albumin 3.5 3.5 - 5.0 g/dL [facility] Total Bilirubin 0.4 0.2 - 1.2 mg/dL [facility] Bilirubin, Direct 0.2 0.1 - 0.5 mg/dL [facility] Alkaline Phosphatase 78 40 - 150 U/L [facility] AST 20 5 - 34 U/L [facility] ALT 21 6 - 55 U/L [facility] Specimen Blood - Arm, Left Performing Organization Address [facility] Phone Number [address] [address] [place] Basic Metabolic Panel (03/01/2018 10:29 AM CDT) Sodium 136 136 - 145 meq/L [facility] Potassium 4.0 3.5 - 5.1 meq/L [facility] Chloride 108 (H) 98 - 107 meq/L [facility] CO2 15 (L) 22 - 29 meq/L [facility] BUN 80 (H) 7 - 21 mg/dL [facility] Creatinine 4.79 (H) 0.57 - 1.25 mg/dL [facility] Glucose 84 70 - 105 mg/dL [facility] Calcium 8.9 8.4 - 10.2 mg/dL [facility] EGFR 12Comment: ESTIMATED GFR IS mL/min/1.73 sq m [facility] NOT ACCURATE CREATININE [facility]ICAL CENTER CLEARANCE IN PREDICTING GLOMERULAR FILTRATION RATE. ESTIMATED GFR IS NOT APPLICABLE FOR DIALYSIS PATIENTS. Specimen Blood - Arm, Left Performing Organization Address City/[facility] Phone Number [address] [address] [place] ECG 12 lead (03/01/2018 10:20 AM CDT) Narrative Performed At Ventricular Rate 62 BPM GE MUSE Atrial Rate 62 BPM P-R Interval 178 ms QRS Duration 96 ms Q-T Interval 452 ms QTC Calculation(Bazett) 458 ms P [place] 66 degrees R Gorham -24 degrees T [place] 140 degrees Normal sinus rhythm Possible Left [...] PATEL YOCHAI (1902) on 03/02/2018 6:54:28 AM Procedure Note Interface, External Ris In - 03/02/2018 6:54 AM CDT Ventricular Rate 62 BPM Atrial Rate 62 BPM P-R Interval 178 ms QRS Duration 96 ms Q-T Interval 452 ms QTC Calculation(Bazett) 458 ms P [place] 66 degrees R Gorham -24 degrees T [place] 140 degrees Normal sinus rhythm Possible Left [...] Performing Organization Address City/State/Zipcode Phone Number TRESSA VELEZ after 08/02/2017 Insurance Payer Benefit Plan / Group Subscriber ID Type Phone Address MEDICARE MEDICARE A B xxxxxxxxxx Medicare MEDICAID [place]ICAID [place] xxxxxxxxx Medicaid Advance Directives For more information, please contact:[address] [phone] Code Status Date Activated Date Inactivated Comments [...]
[2018-08-03] MEDS ORDERED: FUROSEMIDE 40 MG/4 ML VIAL ONE (10:16)
[2018-08-03] MEDS ORDERED: NITROGLYCERIN 1 GM PKT TD ONE (10:16)
[2018-08-03 10:27] LABS: Absolute Lymphocytes (CBC) 0.5 K/uL (0.7-4.9); Absolute Monocytes 0.3 K/uL (0.1-1.3); Basophils % 0.8 % (0-1.3); Hematocrit 36.2 % (39.6-49.0); Lymphocytes % 10.2 % (15.3-44.8); MPV 7.4 fL (7.6-11.3); Monocytes % 6.7 % (3.3-12.3); RBC Red Blood Cell Count 3.92 M/uL (4.33-5.43)
--- NOTE | 2018-08-03 10:34 | RAD REPORT ---
EXAM DESCRIPTION: RAD - Chest Single View - 08/03/2018 10:26 am CLINICAL HISTORY: DYSPNEA Chest pain. COMPARISON: Chest Single View dated 07/27/2018; Chest Single View dated 05/27/2018; Chest Single View dated 05/26/2018; Chest Single View dated 05/06/2018 FINDINGS: Portable technique limits examination quality. Bilateral pulmonary opacities are present without change compatible with pulmonary edema or volume ov erload. The heart is moderately enlarged in size. Changes of a prior CABG are noted. Right-sided veno us catheter tip in the right atrium. IMPRESSION: Stable CHF versus volume overload pattern since comparative study.
[2018-08-03 10:50] LABS: Protime INR 1.1
[2018-08-03] MEDS ORDERED: MORPHINE 4 MG/ML SYR ONE (10:52)
[2018-08-03 11:22] LABS: Potassium 4.4 mmol/L (3.5-5.1); Troponin (Emerg Dept Use Only) 0.03 ng/mL (0.0-0.045)
--- NOTE | 2018-08-03 11:25 | ER ---
Nurse's Notes [facility] Name: Blaise Qurales Age: 78 yrs Sex: Male : 1940 Arrival Date: 08/03/2018 Time: 09:40 Bed 5 Private MD: Aurora PABLO Diagnosis: Pulmonary edema;End stage renal disease;Dyspnea, unspecified;Hypoxemia Presentation: 08/03 09:55 Presenting complaint: Patient states: chest discomfort and difficulty breathing that ss began this morning. Granddaughter reports that they were on their way for his dialysis session, but patient told her, "just take me to the ER." Denies fever. Transition of care: patient was not received from another setting of care. Onset of symptoms was August 03, 2018. Risk Assessment: Do you want to hurt yourself or someone else? Patient reports no desire to harm self or others. Initial Sepsis Screen: Does the patient meet any 2 criteria? No. Patient's initial sepsis screen is negative. Does the patient have a suspected source of infection? No. Patient's initial sepsis screen is negative. Care prior to arrival: Pt is on continuous home O2, reportedly at 4 L NC. 09:55 Method Of Arrival: Wheelchair ss 09:55 Acuity: SARATH 2 ss Historical: - Allergies: 09:57 Aspirin; ss - PMHx: 09:57 Anemia; CAD; cardiomegaly; CHF; chronic renal disease; Cirrhosis; pulmonary nodule; ss pleural effusion; Visually impared; Myocardial infarction; High Cholesterol; Diabetes - IDDM; Dialysis; Hypertension; - PSHx: 09:57 CABG; Heart stents; ss - Immunization history:: Adult Immunizations up to date. - Social history:: Smoking status: Patient/guardian denies using tobacco. - Ebola Screening: : Patient denies exposure to infectious person Patient denies travel to an Ebola-affected area in the 21 days before illness onset. - Family history:: not pertinent. - Hospitalizations: : No recent hospitalization is reported. Screenin:09 Abuse screen: Denies threats or abuse. Denies injuries from another. Nutritional ss screening: No deficits noted. Tuberculosis screening: Never had TB. Fall Risk Fall in past 12 months (25 points). Secondary diagnosis (15 points) impaired mobility, impaired vision, on continuous O2. IV access (20 points). Ambulatory Aid- None/Bed Rest/Nurse Assist (0 pts). Gait- Normal/Bed Rest/Wheelchair (0 pts) Mental Status- Overestimates/Forgets Limitations (15 pts.). Assessment: 10:09 Reassessment: Pt is refusing BIPAP at this time. Family and patient verbalize ss understanding importance and how beneficial BIPAP would be. Pt still refuses at this time. Dr. Vigil notified. 10:15 General: Appears in no apparent distress. Behavior is calm, cooperative. Pain: Pain hb currently is 5 out of 10 on a pain scale. Neuro: Level of Consciousness is awake, alert, obeys commands, Oriented to person, place, time, situation, Reports headache. Cardiovascular: Reports chest pain, shortness of breath, Heart tones S1 S2 present Capillary refill < 3 seconds Patient's skin is warm and dry. Respiratory: Airway is patent Trachea midline Respiratory effort is even, unlabored, Respiratory pattern is regular, symmetrical, Breath sounds are clear bilaterally. GI: No signs and/or symptoms were reported involving the gastrointestinal system. : No signs and/or symptoms were reported regarding the genitourinary system. EENT: No signs and/or symptoms were reported regarding the EENT system. Derm: No signs and/or symptoms reported regarding the dermatologic system. Skin is pink, warm \\T\\ dry. Musculoskeletal: No signs and/or symptoms reported regarding the musculoskeletal system. 11:00 Reassessment: Patient appears in no apparent distress at this time. Patient and/or hb family updated on plan of care and expected duration. Pain level reassessed. Patient is alert, oriented x 3, equal unlabored respirations, skin warm/dry/pink. 12:00 Reassessment: Patient appears in no apparent distress at this time. No changes from hb previously documented assessment. Patient and/or family updated on plan of care and expected duration. Pain level reassessed. Patient is alert, oriented x 3, equal unlabored respirations, skin warm/dry/pink. 13:00 Reassessment: Patient appears in no apparent distress at this time. No changes from hb previously documented assessment. Patient and/or family updated on plan of care and expected duration. Pain level reassessed. Patient is alert, oriented x 3, equal unlabored respirations, skin warm/dry/pink. Vital Signs: 09:57 BP 185 / 74; Pulse 85; Resp 18; Temp 99.3(TE); Pulse Ox 91% on 4 lpm NC; ss 11:07 BP 176 / 82; Pulse 79; Resp 17; Pulse Ox 98% on 4 lpm NC; hb 12:00 BP 175 / 85; Pulse 78; Resp 19; Pulse Ox 96% on 4 lpm NC; hb 13:22 BP 171 / 80; Pulse 77; Resp 18; Pulse Ox 98% on 4 lpm NC; hb ED Course: 09:40 Patient arrived in ED. sb2 09:40 Aurora PABLO is Private Physician. sb2 09:45 Oxygen administration via nasal cannula \\T\\ 4L/min. ss 09:47 Morgan Vigil MD is Attending Physician. rn 09:56 Triage completed. ss 09:57 Arm band placed on right wrist. ss 10:02 EKG done, by front end technician. reviewed by Morgan Vigil MD. dt2 10:09 Patient has correct armband on for positive identification. Placed in gown. Bed in low ss position. Call light in reach. Side rails up X 1. laboratory monitor on. Pulse ox on. NIBP on. 10:15 Inserted saline lock: 22 gauge in right antecubital area, using aseptic technique. hb Blood collected. 10:21 Mady Yo, HUONG is Primary Nurse. hb 10:25 XRAY CXR (1 view) In Process Unspecified. EDMS 10:32 Flu Sent. ss 11:24 Venu Fernandez MD is Hospitalizing Provider. rn Administered Medications: 10:10 Drug: Nitro-Bid Ointment 2 % 1 inches Route: Transdermal; Site: anterior chest wall; sv 10:58 Follow up: Response: No adverse reaction hb 10:18 Drug: Lasix 40 mg Route: IVP; Site: right antecubital; sv 10:57 Follow up: Response: No adverse reaction hb 10:41 Drug: morphine 4 mg Route: IVP; Site: right antecubital; hb 11:22 Follow up: Response: No adverse reaction; Temperature is increased hb 13:03 Drug: Acetaminophen 650 mg Route: PO; hb 14:00 Follow up: Response: No adverse reaction hb Outcome: 11:24 Decision to Hospitalize by Provider. rn 14:23 Patient left the ED. hb Signatures: Dispatcher [employer] EDMS Nick, Jemima, RN Morgan Lezama MD MD rn Smirch, Shelby, RN RN ss Mady Yo RN RN Stephanie Graves sb2 Layla [email or web address] Corrections: (The following items were deleted from the chart) 14 11:07 BP 176 / 82; Pulse 79bpm; Resp 17bpm; Pulse Ox 98%; sv hb 13:22 BP 171 / 80; Pulse 77bpm; Resp 18bpm; Pulse Ox 98%; sv hb 12:00 BP 175 / 85; Pulse 78bpm; Resp 19bpm; Pulse Ox 96%; sv hb
--- NOTE | 2018-08-03 11:25 | EDPHYS ---
Physician Documentation [facility] Name: Blaise Quarles Age: 78 yrs Sex: Male : 1940 Arrival Date: 08/03/2018 Time: 09:40 Bed 5 Private MD: Aurora PABLO ED Physician Morgan Vigil HPI: 08/03 10:00 This 78 yrs old Male presents to ER via Wheelchair with complaints of rn Headache, Chest Pain. 10:00 This 78 yrs old Male presents to ER via Wheelchair with complaints of rn Headache,sob, Chest Pain. 10:00 The patient has shortness of breath at rest. Onset: The symptoms/episode began/occurred rn at an unknown time. Duration: The symptoms are continuous. The patient's shortness of breath is aggravated by exertion, light activity, talking, walking. 10:00 Associated signs and symptoms: Pertinent positives: chest pain, productive cough, rn fever, Pertinent negatives: hemoptysis, loss of consciousness. Severity of symptoms: At their worst the symptoms were moderate in the emergency department the symptoms are unchanged. The patient has experienced similar episodes in the past. Reports sob, + cough, last dialysis Thursday, reports makes some urine, + subjective fever, reports multiple similar episodes in past. . Historical: - Allergies: 09:57 Aspirin; ss - PMHx: 09:57 Anemia; CAD; cardiomegaly; CHF; chronic renal disease; Cirrhosis; pulmonary nodule; ss pleural effusion; Visually impared; Myocardial infarction; High Cholesterol; Diabetes - IDDM; Dialysis; Hypertension; - PSHx: 09:57 CABG; Heart stents; ss - Immunization history:: Adult Immunizations up to date. - Social history:: Smoking status: Patient/guardian denies using tobacco. - Ebola Screening: : Patient denies exposure to infectious person Patient denies travel to an Ebola-affected area in the 21 days before illness onset. - Family history:: not pertinent. - Hospitalizations: : No recent hospitalization is reported. ROS: 10:00 Constitutional: Negative for weight loss, Eyes: Negative for injury, pain, redness, and audit intern, ENT: Negative for injury, pain, and discharge, Neck: Negative for injury, pain, and swelling, Cardiovascular: + chest pain and edema Respiratory: + cough and sob Abdomen/GI: Negative for abdominal pain, nausea, vomiting, diarrhea, and constipation, MS/Extremity: Negative for injury and deformity, Skin: Negative for injury, rash, and discoloration, Neuro: Negative for weakness, numbness, tingling, and seizure. Exam: 10:00 Constitutional: This is a well developed, well nourished patient who is awake, alert, rn + moderate respiratory distress Head/Face: Normocephalic, atraumatic. Eyes: Pupils equal round and reactive to light, extra-ocular motions intact. Lids and lashes normal. Conjunctiva and sclera are non-icteric and not injected. Cornea within normal limits. Periorbital areas with no swelling, redness, or edema. ENT: dry MM Cardiovascular: Regular rate , no pulse deficits, + JVD Respiratory: + moderate tachypnea with bilateral crackles Abdomen/GI: soft, non-tender MS/ Extremity: Pulses equal, no cyanosis. Neurovascular intact. Full, normal range of motion. Equal circumference. 1+ pitting edema bilateral lower ext. Neuro: Awake and alert, GCS 15, oriented to person, place, time, and situation. Cranial nerves II-XII grossly intact. Motor strength 5/5 in all extremities. Sensory grossly intact. Vital Signs: 09:57 BP 185 / 74; Pulse 85; Resp 18; Temp 99.3(TE); Pulse Ox 91% on 4 lpm NC; ss 11:07 BP 176 / 82; Pulse 79; Resp 17; Pulse Ox 98% on 4 lpm NC; hb 12:00 BP 175 / 85; Pulse 78; Resp 19; Pulse Ox 96% on 4 lpm NC; hb 13:22 BP 171 / 80; Pulse 77; Resp 18; Pulse Ox 98% on 4 lpm NC; hb MDM: 09:47 Patient medically screened. rn 10:27 ED course: Pt refuses bipap. rn 11:23 Differential diagnosis: CHF exacerbation, pneumonia, Pneumothorax pulmonary edema. Data rn reviewed: vital signs, nurses notes, lab test result(s), EKG, radiologic studies, plain films, and as a result, I will admit patient. Counseling: I had a detailed discussion with the patient and/or guardian regarding: the historical points, exam findings, and any diagnostic results supporting the discharge/admit diagnosis, lab results, radiology results, the need for further work-up and treatment in the hospital. Response to treatment: the patient's symptoms have mildly improved after treatment, and as a result, I will admit patient. Admission orders: after a detailed discussion of the patient's condition and case, the admit orders are written by me. 08/03 09:56 Order name: Blood Culture Adult (2) rn 08/03 09:56 Order name: BMP; Complete Time: 11:22 rn 08/03 09:56 Order name: CBC with Diff; Complete Time: 10:47 rn 08/03 09:56 Order name: NT PRO-BNP; Complete Time: 11:08/03 09:56 Order name: PT-INR; Complete Time: 11: rn 08/03 09:56 Order name: Ptt, Activated; Complete Time: :08/03 09:56 Order name: XRAY CXR (1 view); Complete Time: 10:47 08/03 09:56 Order name: Troponin (emerg Dept Use Only); Complete Time: 11: rn 08/03 09:56 Order name: BIPAP rn 08/03 10:00 Order name: Flu; Complete Time: 10:47 08/03 10:00 Order name: Procalcitonin; Complete Time: 11:22 08/03 09:56 Order name: EKG; Complete Time: 09:57 08/03 09:56 Order name: Cardiac monitoring; Complete Time: 10:18 08/03 09:56 Order name: EKG - Nurse/Tech; Complete Time: 10:18 rn 08/03 09:56 Order name: IV Saline Lock; Complete Time: 10:19 08/03 09:56 Order name: Labs collected and sent; Complete Time: 10:08/03 09:56 Order name: O2 Per Protocol; Complete Time: 10:08/03 09:56 Order name: O2 Sat Monitoring; Complete Time: 10:19 rn Administered Medications: 10:10 Drug: Nitro-Bid Ointment 2 % 1 inches Route: Transdermal; Site: anterior chest wall; sv 10:58 Follow up: Response: No adverse reaction hb 10:18 Drug: Lasix 40 mg Route: IVP; Site: right antecubital; sv 10:57 Follow up: Response: No adverse reaction hb 10:41 Drug: morphine 4 mg Route: IVP; Site: right antecubital; hb 11:22 Follow up: Response: No adverse reaction; Temperature is increased hb 13:03 Drug: Acetaminophen 650 mg Route: PO; hb 14:00 Follow up: Response: No adverse reaction hb Disposition: 08/03/18 11:24 Hospitalization ordered by Venu Fernandez for Inpatient Admission. Preliminary diagnosis are Pulmonary edema, End stage renal disease, Dyspnea, unspecified, Hypoxemia. - Bed requested for Telemetry/MedSurg (Inpatient). - Status is Inpatient Admission. hb - Condition is Stable. - Problem is new. - Symptoms have improved. UTI on Admission? No Signatures: Dispatcher [employer] EDMS Ronna Byrd Stephanie, HUONG RN sv Morgan Vigil MD MD rn [facility] RN RN Mady Yo RN RN hb Corrections: (The following items were deleted from the chart) 13:40 11:24 Hospitalization Ordered by Venu Fernandez MD for Inpatient Admission. Preliminary bd diagnosis is Pulmonary edema; End stage renal disease; Dyspnea, unspecified; Hypoxemia. Bed requested for Telemetry/MedSurg (Inpatient). Status is Inpatient Admission. Condition is Stable. Problem is new. Symptoms have improved. UTI on Admission? No. rn 14:23 13:40 08/03/2018 11:24 Hospitalization Ordered by Venu Fernandez MD for Inpatient hb Admission. Preliminary diagnosis is Pulmonary edema; End stage renal disease; Dyspnea, unspecified; Hypoxemia. Bed requested for Telemetry/MedSurg (Inpatient). Status is Inpatient Admission. Condition is Stable. Problem is new. Symptoms have improved. UTI on Admission? No. bd
[2018-08-03] MEDS ORDERED: ACETAMINOPHEN 325 MG TABLET ONE (13:02)
--- NOTE | 2018-08-03 13:25 | EKG ---
Test Date: 2018-08-03 Test Time: 09:56:09 Technical Marketing Engineer: JULIO CESAR MEASUREMENT RESULTS: Intervals: Rate: 83 MD: 164 QRSD: 102 QT: 408 QTc: 479 Musella: P: 63 MD: 164 QRS: -29 T: 117 INTERPRETIVE STATEMENTS: Normal sinus rhythm Possible Left atrial enlargement Anterolateral infarct, age undetermined Abnormal ECG Compared to ECG 07/27/2018 10:50:23 Ventricular premature complex(es) no longer present Left-axis deviation no longer present Myocardial infarct finding still present Electronically Signed On 08-03-18 13:24:00 DIVISION HEAD by Brandon Pérez
[2018-08-03] MEDS ORDERED: NA CHLORIDE 0.9% 1,000 ML IV PRN (14:20)
[2018-08-03] MEDS ORDERED: MANNITOL 25% 12.5 GM/50 ML VIAL IV PRN (14:20)
[2018-08-03] MEDS ORDERED: EPOETIN ALFA 10,000 UNIT/ML VIAL IV SCH (14:30)
[2018-08-03 14:59] VITALS: BP 161/76; TEMP 99; BMI 21.4
[2018-08-03] MEDS ORDERED: ALBUMIN HUMAN 25% 50 ML IV SCH (15:00)
[2018-08-03] MEDS ORDERED: ACETAMINOPHEN 500 MG TAB PO PRN (15:32)
[2018-08-03] MEDS ORDERED: ONDANSETRON 4 MG/2 ML VIAL IV PRN (15:32)
[2018-08-03] MEDS ORDERED: LORazepam 2 MG/ML VIAL IV PRN (15:32)
[2018-08-03] MEDS ORDERED: HYDROCODONE/APAP 5/325 MG TAB PO PRN (15:32)
[2018-08-03 16:26] VITALS: O2SAT 94
--- NOTE | 2018-08-04 00:30 | HP ---
Date of Admission: 08/03/2018 Inspection Manager: Dr. Jacobson with Nephrology. Code Status: Full. Chief Complaint: Shortness of breath. History Of Present Illness: The patient is a 78-year-old male with multiple admissions for issues related to missed hemodialysis, shortness of breath, and chronic kidney disease. The patient is noncompliant, refuses treatment, leaves AMA when he does not receive IV narcotics, who was most recently admitted on for similar symptoms. The patient comes in for wound shortness of breath after missing dialysis today. The patient stated that he felt short of breath and had chest tightness. Therefore, instead of going to the dialysis, came to the hospital. The patient's symptoms are constant, moderate, progressively worsening. The patient is a Mdiunve-Uwrnfhtj-Hnflibfk dialysis patient, patient of Dr. Jacobson's. In the ER, his workup showed elevated BNP of 80,000, which is above his baseline. Procalcitonin was 0.13. WBC count was normal. His chest x-ray showed stable CHF versus volume overload pattern compared to previous. The patient was initially to be placed on BiPAP; however , kept refusing. He initially stated that he was worried after he got morphine IV for his pain, stating that his pain is causing his shortness of breath, not the missed dialysis. After receiving morphine in the ER, the patient still refused BiPAP upon my visit and examination. The patient threatened to leave AMA multiple times and was not sure if he wanted to stay. Family present at bedside, trying to convince the patient to stay. Past Medical History: End-stage renal disease, on hemodialysis Thursday, , Thursday; hypertension; heart disease; diabetes mellitus type 2; current pleural effusions; anemia of chronic disease; history of CO; pulmonary nodule; and congestive heart failure. Surgical History: Repair of left finger after fracture, three-vessel CABG, dialysis catheter placement. Allergies: ASPIRIN, WHICH CAUSES NAUSEA AND VOMITING. Medications: List reviewed. Family History: Father had GI disease. Social History: The patient lives at home. Does require assistance with his activities of daily living. He is a former smoker. No current alcohol use or illicit drug use. Has good social support. The patient is . Review of Systems: Ten-point system reviewed and negative except as per HPI. Physical Examination: Vital Signs: Blood pressure 185/74, pulse 85, respirations 18, temperature 99.3 , O2 91% on 4 L via nasal cannula. General: Awake, alert, oriented x3, elderly male, ill-appearing, frail. HEENT: Normocephalic, atraumatic. PERRLA. EOMI. Dry mucous membranes. Oropharynx is clear. Poor dentition. Conjunctivae are anicteric. Neck: Supple. Trachea midline. JVD is distended. CV: S1, S2. Peripheral pulses are present. Respiratory: Diminished breath sounds, especially at the bases. No wheezing. Some crackles are heard. No use of accessory muscles. Gastrointestinal: Abdomen is soft, nontender, nondistended. Positive bowel sounds. Extremities: No clubbing or cyanosis. The patient has lower extremity edema bilaterally. No calf tenderness. Neurologic: Cranial nerves 2 through 12 are intact grossly. No focal neurological deficit. Speech is normal. Strength is 5/5 in bilateral upper and lower extremities. Skin: No rashes. Normal skin turgor. Laboratory Data: Sodium 132, potassium 4.4, chloride 102, CO2 of 21, BUN 32, creatinine 4.51, glucose 107, and calcium 8.8. Troponin 0.03. BNP 80,525. Procalcitonin 0.13. INR 1.1. WBC 5, H and H 12.2 and 36.2, platelets 187, and neutrophils 80%. Influenza screen is negative. Blood cultures are pending. Chest x-ray shows stable CHF versus volume overload pattern since comparative study. Assessment And Plan: A 78-year-old male with; 1. Acute respiratory distress with hypoxia. The patient is refusing BiPAP. We will continue with nasal cannula secondary to volume overload. 2. Noncompliance. 3. End-stage renal disease, on hemodialysis with missed dialysis today. Dr. Jacobson has been consulted. The patient will be dialyzed today. 4. Acute volume overload secondary to missed dialysis. 5. Chronic congestive heart failure. Last known ejection fraction is 54% from April 2018. Diastolic dysfunction. 6. Hypertensive heart disease. 7. Coronary artery disease, [place] artery and [place] heart, status post coronary artery bypass graft. 8. Diabetes mellitus type 2, grw-xylckgh-oxtboznfl with hyperglycemia. We will continue sliding scale insulin. Monitor Accu-Cheks. 9. Anemia of chronic disease secondary to chronic kidney disease. Monitor H and H. transfuse as needed. 10. Hyperlipidemia. Continue statin. 11. Essential hypertension, stable. We will resume home medications as appropriate once medications have been reconciled. 12. Gastrointestinal and deep venous thrombosis prophylaxis with PPI and Lovenox. Plan: Admit the patient to Med-Surg, place as inpatient. Anticipate dialysis today. Continue supportive care with supplemental oxygen BiPAP if the patient agrees to it. Overall, guarded prognosis. The patient has been approached for hospice multiple times as he complains of pain for the majority of the duration of his hospital stay and insists on IV narcotics. However, does not wish to pursue hospice. The patient has been continuing to miss multiple dialysis sessions. Again, family member and the patient not interested in hospice. ADDENDUM: Patient left AMA approximately 1 hour after being admitted. Patient refused dialysis twice while he was admitted. He was counseled to stay. GARETT Voice ID: [id number] [email or web address]
== END 2018-08-03 17:16 | disposition left against medical advice (07) | DRG 640 ==
LOC: ER 09:39 → ERHOLD 12:45 → 4TH 14:04
PROVIDERS: ADMIT Family Medicine; ATTEND Family Medicine
PROC: 5A1D70Z Performance of Urinary Filtration, Intermittent, Less than 6 Hours Per Day (ICD-10-PCS; principal; 2018-08-03)
DX: E87.70 Fluid overload, unspecified (principal); N18.6 End stage renal disease; I13.2 Hypertensive heart and chronic kidney disease with heart failure and with stage 5 chronic kidney disease, or end stage renal disease; J90 Pleural effusion, not elsewhere classified; I50.32 Chronic diastolic (congestive) heart failure; R06.03 Acute respiratory distress; R06.82 Tachypnea, not elsewhere classified; E11.22 Type 2 diabetes mellitus with diabetic chronic kidney disease; Z99.2 Dependence on renal dialysis; Z91.15 Patient's noncompliance with renal dialysis; D63.1 Anemia in chronic kidney disease; I25.2 Old myocardial infarction; Z87.891 Personal history of nicotine dependence; I25.10 Atherosclerotic heart disease of native coronary artery without angina pectoris; Z95.1 Presence of aortocoronary bypass graft; E11.65 Type 2 diabetes mellitus with hyperglycemia; E78.5 Hyperlipidemia, unspecified; R91.1 Solitary pulmonary nodule
CPT/HCPCS: 36415; 71045; 80048; 83880; 84145; 84484; 85025; 85610; 85730; 87040; 87804; 93005; 96374; 96375; 99285; J1940

== ENCOUNTER 2018-10-02 04:48 | Emergency (ER) | payer OTHER ==
--- OUTSIDE RECORDS SUMMARY | 2018-10-02 04:51 | XMS REPORT | Clinical Summary ---
:1940 Author Organization [facility] Address [address] [place] [address] Care Team Providers Name Role Phone oMo Primary Care Provider Allergies No Known Allergies [...] 03/01/2018 Orders Only General Internal Medicine after 10/01/2017 Family History Medical History Relation Name Comments [...] 452 ms QTC Calculation(Bazett) 458 ms P Ingalls 66 degrees R Ingalls -24 degrees T Ingalls 140 degrees Normal sinus rhythm Possible Left [...] MICROSCOPIC STAT 03/01/2018 10:19 AM CDT after 10/01/2017 Results Urinalysis w/Microscopic (03/03/2018 11:08 AM CDT)Only the most recent of2 resultswithin the time period is included. Color, UA Yellow [facility] Clarity, UA Hazy [facility] Specific [place], UA 1.012 1.001 - 1.035 [facility] pH, UA 6.0 5.0 - 8.0 [facility] Protein, UA 600 mg/dL (A) Negative [facility] Glucose, UA 100 mg/dL (A) Negative [facility] Ketones, UA Negative Negative [facility] Bilirubin, UA Negative Negative [facility] Blood, UA Moderate (A) Negative [facility] Nitrite, UA Negative Negative [facility] Leukocytes, UA Small (A) Negative [facility] Urobilinogen, UA 0.2 0.2 - 1.0 mg/dL [facility] RBC, UA 27 /HPF [facility] WBC, UA 12 /HPF [facility] Bacteria, UA Occasional [facility] Mucus Rare [facility] Squam Epithel, UA <1 /HPF [facility] Hyaline Casts, UA 2 /LPF [facility] Granular Casts, UA 5 /LPF [facility] Specimen Source Urine, Yusuf [facility] Specimen Urine - Urine, Yusuf Performing Organization Address [facility] Phone Number [facility] [address] [place] [address] [place] Urine culture (03/03/2018 11:08 AM CDT) Result PSEUDOMONAS AERUGINOSA (A) [facility] Specimen Urine - Urine, Yusuf [...] aeruginosa Tobramycin <=2: Susceptible Performing Organization Address [facility] Phone Number [place] [id number] [place] [address] [phone] [place] ED ECG Interpretation (03/02/2018 7:12 AM CDT) Narrative Performed At Macrina Gómez MD 03/02/20187:12 AM ECG/EKG Interpretation Date/Time: 03/01/2018 10:25 AM Performed by: MACRINA GÓMEZ. Authorized by: MACRINA GÓMEZ The ECG was interpreted by ED physician. The ECG is interpreted as sinus rhythm. Rate is normal rate. Conduction: conduction normal. ST segments abnormal. T waves abnormal. Ingalls is normal. Other findings: no other findings. Clinical Impression: non-specific ECG and abnormal ECG CT abdomen pelvis without contrast (03/01/2018 1:46 PM CDT) Narrative Performed At FINAL REPORT [employer] [facility] ABDOMINAL AND PELVIS CT DATED 03/01/2018 CLINICAL [...] MD Report Verified Date/Time:03/01/2018 15:15:27 Reading Location: [facility] C013Y CT Body Reading Room Procedure [...] Report Verified Date/Time: 03/01/2018 15:15:27 Reading Location: [facility] C013Y CT Body Reading Room Performing Organization Address City/State/Zipcode Phone Number GE RIS CBC with platelet count + automated diff (03/01/2018 10:29 AM CDT) WBC 5.6 3.5 - 10.5 K/L [facility] RBC 3.10 (L) 4.63 - 6.08 M/L [facility] Hemoglobin 9.8 (L) 13.7 - 17.5 GM/DL [facility] Hematocrit 29.7 (L) 40.1 - 51.0 % [facility] MCV 95.8 (H) 79.0 - 92.[address] [facility] MCH 31.6 25.7 - 32.[address] [facility] MCHC 33.0 32.3 - 36.5 GM/DL [facility] RDW 14.0 11.6 - 14.4 % [facility] Platelets 171 150 - 450 K/CU MM [facility] MPV 11.1 9.4 - 12.[address] [facility] nRBC 0 0 - 0 /[address] [facility] % Neutros 69 % [facility] % Lymphs 16 % [facility] % Monos 10 % [facility] % Eos 4 % [facility] % Baso 1 % [facility] # Neutros 3.88 1.78 - 5.38 K/L [facility] # Lymphs 0.88 (L) 1.32 - 3.57 K/L [facility] # Monos 0.56 0.30 - 0.82 K/L [facility] # Eos 0.25 0.04 - 0.54 K/L [facility] # Baso 0.03 0.01 - 0.08 K/L [facility] Immature Granulocytes-Relative 0 0 - 1 % [facility] Specimen Blood - Arm, Left Performing Organization Address City/[facility]/Zipcode Phone Number [address] [address] CENTER Lipase (03/01/2018 10:29 AM CDT) Lipase 61 8 - 78 U/L [facility] Specimen Blood - Arm, Left Performing Organization Address City[facility] Phone Number [address] [address] [phone] CENTER Amylase (03/01/2018 10:29 AM CDT) Amylase 113 25 - 125 U/L [facility] Specimen Blood - Arm, Left Performing Organization Address [facility] Phone Number [address] [address] [place] Hepatic function panel (03/01/2018 10:29 AM CDT) Protein, Total 6.8 6.0 - 8.3 gm/dL [facility] Albumin 3.5 3.5 - 5.0 g/dL [facility] Total Bilirubin 0.4 0.2 - 1.2 mg/dL [facility] Bilirubin, Direct 0.2 0.1 - 0.5 mg/dL [facility] Alkaline Phosphatase 78 40 - 150 U/L [facility] AST 20 5 - 34 U/L [facility] ALT 21 6 - 55 U/L [facility] Specimen Blood - Arm, Left Performing Organization Address City/[facility] Phone Number [address] [address] [place] Basic Metabolic Panel (03/01/2018 10:29 AM CDT) Sodium 136 136 - 145 meq/L [facility] Potassium 4.0 3.5 - 5.1 meq/L [facility] Chloride 108 (H) 98 - 107 meq/L [facility] CO2 15 (L) 22 - 29 meq/L [facility] BUN 80 (H) 7 - 21 mg/dL [facility] Creatinine 4.79 (H) 0.57 - 1.25 mg/dL [facility] Glucose 84 70 - 105 mg/dL [facility] Calcium 8.9 8.4 - 10.2 mg/dL [facility] EGFR 12Comment: ESTIMATED GFR IS mL/min/1.73 sq m [facility] NOT ACCURATE [facility] CLEARANCE IN PREDICTING GLOMERULAR FILTRATION RATE. ESTIMATED GFR IS NOT APPLICABLE FOR DIALYSIS PATIENTS. Specimen Blood - Arm, Left Performing Organization Address City/[facility] Phone Number [address] [address] [place] ECG 12 lead (03/01/2018 10:20 AM CDT) Narrative Performed At Ventricular Rate 62 BPM GE MUSE Atrial Rate 62 BPM P-R Interval 178 ms QRS Duration 96 ms Q-T Interval 452 ms QTC Calculation(Bazett) 458 ms P Ingalls 66 degrees R Ingalls -24 degrees T Ing[place] 140 degrees Normal sinus rhythm Possible Left [...] 452 ms QTC Calculation(Bazett) 458 ms P Ing[place] 66 degrees R Ingalls -24 degrees T Ingalls 140 degrees Normal sinus rhythm Possible Left [...] Address City/State/Zipcode Phone Number TRESSA VELEZ after 10/01/2017 Insurance Payer Benefit Plan / Group Subscriber ID Type Phone Address MEDICARE MEDICARE A B xxxxxxxxxx Medicare MEDICAID [place]ICA[place] xxxxxxxxx Medicaid Advance Directives For more information, please contact:[address] [phone] Code Status Date Activated Date Inactivated Comments [...]
--- OUTSIDE RECORDS SUMMARY | 2018-10-02 04:52 | XMS REPORT ---
:1940 [facility] Address [address] [place] [address] Dr. Manley [address] [place] [id number] Care Team Providers Name Role Phone LAZRODNEY [...] Comments CULTURE (BEAKER) (test PSEUDOMONAS 70-79,000 col/mL nlfa=1179) AERUGINOSA Pseudomonas aeruginosa Amikacin (test code=1) Susceptible [...] code=25) Resistant <0 or >4 URINALYSIS W/ [id number] 12:06:00 Test Item Value Reference Range Comments COLOR (BEAKER) (test mpni=670) Yellow CLARITY (BEAKER) (test hvjn=009) Hazy SPECIFIC GRAVITY UA (BEAKER) (test lmfc=652) 1.012 1.001-1.035 PH UA (BEAKER) (test ghgq=518) 6.0 5.0-8.0 PROTEIN UA (BEAKER) (test iuon=057) 600 mg/dL Negative GLUCOSE UA (BEAKER) (test nipu=491) 100 mg/dL Negative KETONES UA (BEAKER) (test rbda=938) Negative Negative BILIRUBIN UA (BEAKER) (test txzb=044) Negative Negative BLOOD UA (BEAKER) (test ebad=610) Moderate Negative NITRITE UA (BEAKER) (test qytt=675) Negative Negative LEUKOCYTE ESTERASE UA (BEAKER) (test chta=273) Small Negative UROBILINOGEN UA (BEAKER) (test epjb=689) 0.2 mg/dL 0.2-1.0 RBC UA (BEAKER) (test hczv=517) 27 /HPF WBC UA (BEAKER) (test ybny=343) 12 /HPF BACTERIA (BEAKER) (test ritx=820) Occasional MUCUS (BEAKER) (test mbjh=7294) Rare SQUAMOUS EPITHELIAL (BEAKER) (test xdrg=610) < /HPF HYALINE CASTS (BEAKER) (test ljfh=242) 2 /LPF GRANULAR CASTS (BEAKER) (test gper=781) 5 /LPF SOURCE(BEAKER) (test skub=4280) Urine, Yusuf CT, [id number] 15:15:00Reason for exam:->ABDOMINAL PAINWhat is the patient's [...] Verified Date/ Time: 03/01/2018 15:15:27 Reading Location: [address] Body Reading Room BASIC METABOLIC [id number] 11:04:00 Test Item Value Reference Range Comments SODIUM (BEAKER) (test 136 meq/L 136-145 jnfd=079) POTASSIUM (BEAKER) (test 4.0 meq/L 3.5-5.1 ujpu=737) CHLORIDE (BEAKER) (test 108 meq/L 98-107 lccg=846) CO2 (BEAKER) (test 15 meq/L 22-29 nger=577) BLOOD UREA NITROGEN 80 mg/dL 7-21 (BEAKER) (test qtcm=401) CREATININE (BEAKER) (test 4.79 mg/dL 0.57-1.25 nhwd=599) GLUCOSE RANDOM (BEAKER) 84 mg/dL 70-105 (test ntty=967) CALCIUM (BEAKER) (test 8.9 mg/dL 8.4-10.2 birk=682) EGFR (BEAKER) (test 12 mL/min/1.73 sq m ESTIMATED GFR IS NOT sgcn=0458) ACCURATE CREATININE CLEARANCE IN PREDICTING GLOMERULAR FILTRATION RATE. ESTIMATED GFR IS NOT APPLICABLE FOR DIALYSIS PATIENTS. [id number] 11:02:00 Test Item Value Reference Range Comments LIPASE (BEAKER) (test empo=609) 61 U/L 8-78 [id number] 11:02:00 Test Item Value Reference Range Comments AMYLASE (BEAKER) (test rvas=894) 113 U/L 25-125 HEPATIC FUNCTION [id number] 11:02:00 Test Item Value Reference Range Comments TOTAL PROTEIN (BEAKER) (test vafe=878) 6.8 gm/dL 6.0-8.3 ALBUMIN (BEAKER) (test vbel=0320) 3.5 g/dL 3.5-5.0 BILIRUBIN TOTAL (BEAKER) (test pnaz=081) 0.4 mg/dL 0.2-1.2 BILIRUBIN DIRECT (BEAKER) (test iuuu=132) 0.2 mg/dL 0.1-0.5 ALKALINE PHOSPHATASE (BEAKER) (test egqq=531) 78 U/L 40-150 AST (SGOT) (BEAKER) (test cmby=274) 20 U/L 5-34 ALT (SGPT) (BEAKER) (test decq=632) 21 U/L 6-55 URINALYSIS W/ [id number] 11:01:00 Test Item Value Reference Range Comments COLOR (BEAKER) (test shit=395) Light Yellow CLARITY (BEAKER) (test rnma=446) Clear SPECIFIC GRAVITY UA (BEAKER) (test wcxw=547) 1.006 1.001-1.035 PH UA (BEAKER) (test nfyv=694) 6.0 5.0-8.0 PROTEIN UA (BEAKER) (test ubev=239) 300 mg/dL Negative GLUCOSE UA (BEAKER) (test jiqg=519) 30 mg/dL Negative KETONES UA (BEAKER) (test tcma=799) Negative Negative BILIRUBIN UA (BEAKER) (test dvum=097) Negative Negative BLOOD UA (BEAKER) (test lwon=413) Trace Negative NITRITE UA (BEAKER) (test fkfe=059) Negative Negative LEUKOCYTE ESTERASE UA (BEAKER) (test oaui=722) Negative Negative UROBILINOGEN UA (BEAKER) (test shdv=324) 0.2 mg/dL 0.2-1.0 RBC UA (BEAKER) (test dxhh=962) < /HPF WBC UA (BEAKER) (test zvoj=121) < /HPF BACTERIA (BEAKER) (test zxer=532) Rare MUCUS (BEAKER) (test lpic=8754) Rare SOURCE(BEAKER) (test gfhj=9707) Urine, Voided CBC W/PLT COUNT & AUTO [id number] 10:49:00 Test Item Value Reference Range Comments WHITE BLOOD CELL COUNT (BEAKER) (test gpli=004) 5.6 K/ L 3.5-10.5 RED BLOOD CELL COUNT (BEAKER) (test zmza=056) 3.10 M/ L 4.63-6.08 HEMOGLOBIN (BEAKER) (test qvcu=697) 9.8 GM/DL 13.7-17.5 HEMATOCRIT (BEAKER) (test yyhn=655) 29.7 % 40.1-51.0 MEAN CORPUSCULAR VOLUME (BEAKER) (test ynty=045) 95.8 fL 79.0-92.2 MEAN CORPUSCULAR HEMOGLOBIN (BEAKER) (test 31.6 pg 25.7-32.2 lzbm=408) MEAN CORPUSCULAR HEMOGLOBIN CONC (BEAKER) (test 33.0 GM/DL 32.3-36.5 xppz=560) RED CELL DISTRIBUTION WIDTH (BEAKER) (test 14.0 % 11.6-14.4 sczf=133) PLATELET COUNT (BEAKER) (test zfiv=376) 171 K/CU MM 150-450 MEAN PLATELET VOLUME (BEAKER) (test vlsj=680) 11.1 fL 9.4-12.4 NUCLEATED RED BLOOD CELLS (BEAKER) (test 0 /100 WBC 0-0 nhai=059) NEUTROPHILS RELATIVE PERCENT (BEAKER) (test 69 % igpf=199) LYMPHOCYTES RELATIVE PERCENT (BEAKER) (test 16 % eufl=416) MONOCYTES RELATIVE PERCENT (BEAKER) (test 10 % gaqy=875) EOSINOPHILS RELATIVE PERCENT (BEAKER) (test 4 % dszg=875) BASOPHILS RELATIVE PERCENT (BEAKER) (test 1 % ebom=551) NEUTROPHILS ABSOLUTE COUNT (BEAKER) (test 3.88 K/ L 1.78-5.38 yrid=621) LYMPHOCYTES ABSOLUTE COUNT (BEAKER) (test 0.88 K/ L 1.32-3.57 grag=298) MONOCYTES ABSOLUTE COUNT (BEAKER) (test 0.56 K/ L 0.30-0.82 uvxc=722) EOSINOPHILS ABSOLUTE COUNT (BEAKER) (test 0.25 K/ L 0.04-0.54 fqmh=439) BASOPHILS ABSOLUTE COUNT (BEAKER) (test 0.03 K/ L 0.01-0.08 xbyv=022) IMMATURE GRANULOCYTES-RELATIVE PERCENT (BEAKER) 0 % 0-1 (test ydqy=6801)
[2018-10-02 06:11] LABS: Absolute Lymphocytes (CBC) 0.6 K/uL (0.7-4.9); Absolute Monocytes 0.3 K/uL (0.1-1.3); Absolute Neutrophil 1.9 K/uL (1.8-8.0); Basophils % 0.8 % (0-1.3); Eosinophils % 3.3 % (0-4.4); Hematocrit 33.4 % (39.6-49.0); Lymphocytes % 21.1 % (15.3-44.8); MPV 8.1 fL (7.6-11.3); RBC Red Blood Cell Count 3.45 M/uL (4.33-5.43)
[2018-10-02 06:25] LABS: Protime INR 1.11
[2018-10-02 06:26] LABS: Albumin 3.2 g/dL (3.4-5.0); Bilirubin Direct 0.2 mg/dL (0-0.2); Bilirubin Total 0.4 mg/dL (0.2-1.0); Potassium 4.9 mmol/L (3.5-5.1); Protein, Total 6.7 g/dL (6.4-8.2); Troponin (Emerg Dept Use Only) 0.03 ng/mL (0.0-0.045)
--- NOTE | 2018-10-02 06:30 | ER ---
Nurse's Notes [facility] Name: Blaise Quarles Age: 78 yrs Sex: Male : 1940 Arrival Date: 10/02/2018 Time: 04:53 Bed 2 Private MD: Diagnosis: Presentation: 10/02 04:55 Presenting complaint: EMS states: Chest pain, Back pain, Headache for multiple days ak1 intermittent. EMS stated they responded to a call for the pt at 2200 as well for same complaints but pt stated he would wait until later in the morning due to needing a ride to dialysis in [place]. pt Son in Law at bedside stated to EMS pt has called EMS before for a ride to [place] on dialysis days. pt A\\T\\OX4, uses 2L oxygen via [place] at home. pt PCP at [facility]. pt has dialysis Thursday, , Saturdays. Transition of care: patient was not received from another setting of care. Onset of symptoms is unknown. Risk Assessment: Do you want to hurt yourself or someone else? Patient reports no desire to harm self or others. Initial Sepsis Screen: Does the patient meet any 2 criteria? No. Patient's initial sepsis screen is negative. Does the patient have a suspected source of infection? No. Patient's initial sepsis screen is negative. Care prior to arrival: None. 04:55 Method Of Arrival: EMS: [facility] ak1 04:55 Acuity: SARATH 3 ak1 Triage Assessment: 05:03 General: Appears in no apparent distress. Behavior is calm, cooperative. Pain: ak1 Complains of pain in headache, chest pain, back pain. EENT: No signs and/or symptoms were reported regarding the EENT system. Neuro: No deficits noted. Cardiovascular: Patient's skin is warm and dry. Respiratory: No deficits noted. GI: No signs and/or symptoms were reported involving the gastrointestinal system. : No signs and/or symptoms were reported regarding the genitourinary system. Derm: No signs and/or symptoms reported regarding the dermatologic system. Musculoskeletal: Reports pain in back, head, chest. Historical: - Allergies: 05:01 Aspirin; ak1 - Home Meds: 05:01 amlodipine 10 mg tab 1 tab once daily [Active]; clonazepam 1 mg Oral tab 1 tab 2 times ak1 per day [Active]; trazodone 100 mg Oral tab 1 tab nightly [Active]; Risperdal 0.5 mg Oral tab 1 tabs 2 times per day [Active]; nitroglycerin 0.4 mg SL subl 1 tab [Active]; - PMHx: 05:01 Anemia; CAD; cardiomegaly; Cirrhosis; Diabetes - IDDM; Dialysis; High Cholesterol; ak1 Hypertension; pleural effusion; pulmonary nodule; Visually impared; Myocardial infarction; chronic renal disease; CHF; - PSHx: 05:01 Heart stents; CABG; dialysis port to right chest wall; ak1 - Immunization history:: Adult Immunizations unknown. - Social history:: Smoking status: Patient/guardian denies using tobacco. - Ebola Screening: : No symptoms or risks identified at this time. Screenin:02 Abuse screen: Denies threats or abuse. Denies injuries from another. Nutritional ak1 screening: No deficits noted. Tuberculosis screening: No symptoms or risk factors identified. Fall Risk None identified. Assessment: 05:05 Reassessment: Patient appears in no apparent distress at this time. No changes from ak1 previously documented assessment. see triage assessment. 05:05 Reassessment: cytogenetic technician stated pt refused chest Xray. pt stated to cytogenetic technician he was ak1 seen "5 months ago and given a shot for pain" pt would like just a shot for pain. Dr. Vasquez notified. 05:14 Reassessment: pt refused tylenol offered. pt stated he would allow for blood draw but ak1 would leave if "it takes too long" pt informed he has the right to refuse any medical services and to sign out AMA as he has done previously. pt has agreed as of now to allow for Xray, blood draw and EKG. 05:23 Reassessment: pt refused cardiac monitoring. , Son in law and daughter at bedside. ak1 06:10 Reassessment: pt requesting a blanket. pt and family informed of wait for lab results. ak1 06:27 Reassessment: Patient appears in no apparent distress at this time. No changes from ak1 previously documented assessment. Patient and/or family updated on plan of care and expected duration. Pain level reassessed. Patient is alert, oriented x 3, equal unlabored respirations, skin warm/dry/pink. pt requested to leave and sign out AMA. pt and family verbalized understanding of AMA form prior to signing. pt assisted to wheelchair with oxygen for transport out of ER2. Vital Signs: 05:02 BP 149 / 59; Pulse 60; Resp 18; Temp 98.3(O); Pulse Ox 91% on R/A; Weight 63.5 kg (R); ak1 Height 5 ft. 3 in. (160.02 cm) (R); Pain 2/10; 05:25 BP 154 / 61; Pulse 59; Resp 18; Pulse Ox 96% on 2 lpm NC; ak1 06:09 BP 148 / 62; Pulse 62; Resp 16; Pulse Ox 94% on 2 lpm NC; ak1 05:02 Body Mass Index 24.80 (63.50 kg, 160.02 cm) ak1 ED Course: 04:53 Patient arrived in ED. tl2 04:56 Gilbert Vasquez MD is Attending Physician. tw4 04:58 Triage completed. ak1 05:02 Patient has correct armband on for positive identification. Bed in low position. Call ak1 light in reach. Side rails up X 1. Adult w/ patient. clinical research monitor on. Pulse ox on. NIBP on. 05:02 Arm band placed on Patient placed in an exam room, on a stretcher, on oxygen, on ak1 monitoring specialist, on pulse oximetry, Patient notified of wait time. 05:21 XRAY Chest (1 view) In Process Unspecified. EDMS 05:24 Sandy Thomas, RN is Primary Nurse. ak1 06:27 Notified ED physician of a critical lab result(s). Creatinine of 5.34 Dr Christina hayden notified. 06:29 Patient did not have IV access during this emergency room visit. ak1 Administered Medications: No medications were administered Outcome: 06:29 AMA AMA form signed ak1 06:29 Condition: stable 06:30 Patient left the ED. ak1 Signatures: Dispatcher [employer] EDMS Naima Rojas RN RN bb Krenek, Amber, RN HUONG ak1 Tamar Saldana RN RN tl2 Gilbert Vasquez MD MD tw4 Corrections: (The following items were deleted from the chart) 05:02 04:55 Presenting complaint: EMS states: Chest pain, Back pain, Headache for multiple ak1 days intermittent. EMS stated they responded to a call for the pt at 2200 as well for same complaints but pt stated he would wait until later in the morning due to needing a ride to dialysis in [place]. pt Son in Law at bedside stated to EMS pt has called EMS before for a ride to [place] on dialysis days. pt A\\T\\OX4, uses 2L oxygen via [place] at home. pt PCP at [facility]. pt has dialysis [facility]. ak1
--- NOTE | 2018-10-02 06:31 | EDPHYS ---
Physician Documentation [facility] Name: Blaise Quarles Age: 78 yrs Sex: Male : 1940 Arrival Date: 10/02/2018 Time: 04:53 Bed 2 Private MD: ED Physician Gilbert Vasquez HPI: 10/02 05:42 This 78 yrs old Male presents to ER via EMS with complaints of chest and back tw4 pain. 05:42 The patient or guardian reports chest pain that is located primarily in the substernal tw4 area. Onset: today. The pain does not radiate. Associated signs and symptoms: The patient has no apparent associated signs or symptoms. The chest pain is described as dull. Duration: The patient or guardian reports a single episode. Modifying factors: The symptoms are alleviated by nothing. the symptoms are aggravated by nothing. Severity of pain: At its worst the pain was very mild in the emergency department the pain is unchanged. The patient has experienced similar episodes in the past, multiple times, chronically. Historical: - Allergies: 05:01 Aspirin; ak1 - Home Meds: 05:01 amlodipine 10 mg tab 1 tab once daily [Active]; clonazepam 1 mg Oral tab 1 tab 2 times ak1 per day [Active]; trazodone 100 mg Oral tab 1 tab nightly [Active]; Risperdal 0.5 mg Oral tab 1 tabs 2 times per day [Active]; nitroglycerin 0.4 mg SL subl 1 tab [Active]; - PMHx: 05:01 Anemia; CAD; cardiomegaly; Cirrhosis; Diabetes - IDDM; Dialysis; High Cholesterol; ak1 Hypertension; pleural effusion; pulmonary nodule; Visually impared; Myocardial infarction; chronic renal disease; CHF; - PSHx: 05:01 Heart stents; CABG; dialysis port to right chest wall; ak1 - Immunization history:: Adult Immunizations unknown. - Social history:: Smoking status: Patient/guardian denies using tobacco. - Ebola Screening: : No symptoms or risks identified at this time. ROS: 05:42 Constitutional: Negative for fever, chills, and weight loss, Eyes: Negative for injury, tw4 pain, redness, and discharge, Respiratory: Negative for shortness of breath, cough, wheezing, and pleuritic chest pain, Abdomen/GI: Negative for abdominal pain, nausea, vomiting, diarrhea, and constipation, Back: Negative for injury and pain, MS/Extremity: Negative for injury and deformity, Skin: Negative for injury, rash, and discoloration, Neuro: Negative for headache, weakness, numbness, tingling, and seizure. 05:42 Cardiovascular: Positive for chest pain, Negative for edema, orthopnea, palpitations. Exam: 05:42 Chest/axilla: Normal chest wall appearance and motion. Nontender with no deformity. tw4 No lesions are appreciated. Cardiovascular: Regular rate and rhythm with a normal S1 and S2. No gallops, murmurs, or rubs. Normal PMI, no JVD. No pulse deficits. Respiratory: Lungs have equal breath sounds bilaterally, clear to auscultation and percussion. No rales, rhonchi or wheezes noted. No increased work of breathing, no retractions or nasal flaring. Abdomen/GI: Soft, non-tender, with normal bowel sounds. No distension or tympany. No guarding or rebound. No evidence of tenderness throughout. Back: No spinal tenderness. No costovertebral tenderness. Full range of motion. MS/ Extremity: Pulses equal, no cyanosis. Neurovascular intact. Full, normal range of motion. Neuro: Awake and alert, GCS 15, oriented to person, place, time, and situation. Cranial nerves II-XII grossly intact. Motor strength 5/5 in all extremities. Sensory grossly intact. Cerebellar exam normal. Normal gait. 05:42 Constitutional: The patient appears alert, awake, non-diaphoretic, non-toxic, frail. Vital Signs: 05:02 BP 149 / 59; Pulse 60; Resp 18; Temp 98.3(O); Pulse Ox 91% on R/A; Weight 63.5 kg (R); ak1 Height 5 ft. 3 in. (160.02 cm) (R); Pain 2/10; 05:25 BP 154 / 61; Pulse 59; Resp 18; Pulse Ox 96% on 2 lpm NC; ak1 06:09 BP 148 / 62; Pulse 62; Resp 16; Pulse Ox 94% on 2 lpm NC; ak1 05:02 Body Mass Index 24.80 (63.50 kg, 160.02 cm) ak1 MDM: 04:56 Patient medically screened. tw4 05:42 Differential diagnosis: abnormal EKG, acute myocardial infarction, coronary artery tw4 disease chest wall pain, costochondritis. Data reviewed: vital signs, nurses notes. Data interpreted: cafe manager: rhythm is normal sinus rhythm, Pulse oximetry: Interpretation: normal. Test interpretation: by ED physician or midlevel provider: ECG. Counseling: I had a detailed discussion with the patient and/or guardian regarding: the historical points, exam findings, and any diagnostic results supporting the discharge/admit diagnosis, lab results. 10/02 04:58 Order name: Basic Metabolic Panel tw4 10/02 04:58 Order name: CBC with Diff tw4 10/02 04:58 Order name: LFT's tw4 10/02 04:58 Order name: Magnesium tw4 10/02 04:58 Order name: NT PRO-BNP tw4 10/02 04:58 Order name: PT-INR tw4 10/02 04:58 Order name: Troponin (emerg Dept Use Only) tw4 10/02 04:58 Order name: XRAY Chest (1 view) tw4 10/02 04:58 Order name: EKG; Complete Time: 04:59 tw4 10/02 04:58 Order name: EKG - Nurse/Tech; Complete Time: 05:23 tw4 10/02 04:59 Order name: Basic Metabolic Panel EDMS 10/02 04:59 Order name: CBC with Automated Diff EDMS 10/02 04:59 Order name: Liver (Hepatic) Function EDMS 10/02 04:58 Order name: Labs collected and sent; Complete Time: 05:25 tw4 10/02 04:58 Order name: O2 Per Protocol; Complete Time: 05:23 tw4 10/02 04:58 Order name: O2 Sat Monitoring; Complete Time: 05:23 tw4 EC:42 Rate is 60 beats/min. Rhythm is regular. QRS [place] is Normal. AR interval is normal. QRS tw4 interval is normal. No Q waves. T waves are Peaked in leads I, aVL. T waves are Flattened in leads II, V5, V6. No ST changes noted. Clinical impression: NSR w/ Non-specific ST/T Changes and Abnormal EKG without significant change. Interpreted by me. Reviewed by me. Administered Medications: No medications were administered Disposition: 10/02/18 06:30 Patient has left against medical advice. - Patients states they are going to Home. - Condition is Stable. Signatures: Dispatcher [employer] Sandy Sanchez RN RN ak1 Gilbert Vasquez MD MD tw4 Corrections: (The following items were deleted from the chart) 05:22 04:58 IV Saline Lock ordered. tw4 ak 05:23 04:58 Cardiac monitoring ordered. tw4 ak1
[2018-10-02 06:44] VITALS: TEMP 98.3
[2018-10-02 06:46] VITALS: BP 148/62; O2SAT 94
--- NOTE | 2018-10-02 09:37 | RAD REPORT ---
EXAM DESCRIPTION: Eliu Single View10/02/2018 5:20 am CLINICAL HISTORY: Chest pain COMPARISON: None FINDINGS: Bilateral pulmonary opacities and pleural effusions unchanged The heart is remains enlarged. A central venous catheter in place Postsurgical changes involve the chest. IMPRESSION: No change in CHF
--- NOTE | 2018-10-02 09:37 | EKG ---
Test Date: 2018-10-02 Test Time: 05:17:58 Railway Signal Technician: ARUN MEASUREMENT RESULTS: Intervals: Rate: 60 MN: 190 QRSD: 104 QT: 454 QTc: 454 [place]: P: 44 MN: 190 QRS: -39 T: 132 INTERPRETIVE STATEMENTS: Normal sinus rhythm Possible Left atrial enlargement Left axis deviation Inferior infarct, age undetermined Anteroseptal infarct, age undetermined T wave abnormality, consider lateral ischemia Abnormal ECG Compared to ECG 08/03/2018 09:56:09 Left-axis deviation now present Myocardial infarct finding still present Electronically Signed On 10-02-18 09:36:17 CDT by Raheel Zeng
== END 2018-10-02 06:30 | disposition left against medical advice (07) ==
LOC: ER 04:48
DX: R07.9 Chest pain, unspecified (principal); I12.0 Hypertensive chronic kidney disease with stage 5 chronic kidney disease or end stage renal disease; E11.22 Type 2 diabetes mellitus with diabetic chronic kidney disease; N18.6 End stage renal disease; I50.9 Heart failure, unspecified; I25.2 Old myocardial infarction; Z88.6 Allergy status to analgesic agent; Z95.1 Presence of aortocoronary bypass graft; Z99.2 Dependence on renal dialysis
CPT/HCPCS: 36415; 71045; 80048; 80076; 83735; 83880; 84484; 85025; 85610; 93005; 99284

== ENCOUNTER 2018-11-04 10:48 | Emergency (ER) | payer OTHER ==
--- OUTSIDE RECORDS SUMMARY | 2018-11-04 10:50 | XMS REPORT | Clinical Summary ---
:1940 Author Organization [facility] Address [address] [place] [address] Care Team Providers Name Role Phone Moo [...] 03/01/2018 Orders Only General Internal Medicine after 11/03/2017 Family History Medical History Relation Name Comments [...] 452 ms QTC Calculation(Bazett) 458 ms P [place] 66 degrees R [place] -24 degrees T [place] 140 degrees Normal sinus rhythm Possible [...] MICROSCOPIC STAT 03/01/2018 10:19 AM CDT after 11/03/2017 Results Urinalysis w/Microscopic (03/03/2018 11:08 AM CDT)Only the most recent of2 resultswithin the time period is included. Color, UA Yellow [facility] Clarity, UA Hazy [facility] Specific [place], UA 1.012 1.001 - 1.035 [facility] pH, UA 6.0 5.0 - 8.0 [facility] Protein, UA 600 mg/dL (A) Negative [facility] Glucose, UA 100 mg/dL (A) Negative [facility] Ketones, UA Negative Negative [facility] Bilirubin, UA Negative Negative [facility] Blood, UA Moderate (A) Negative [facility] Nitrite, UA Negative Negative [facility] Leukocytes, UA Small (A) Negative [facility] Urobilinogen, UA 0.2 0.2 - 1.0 mg/dL [facility] RBC, UA 27 /HPF [facility] WBC, UA 12 /HPF [facility] Bacteria, UA Occasional [facility] Mucus Rare [facility] Squam Epithel, UA <1 /HPF [facility] Hyaline Casts, UA 2 /LPF [facility] Granular Casts, UA 5 /LPF [facility] Specimen Source Urine, Yusuf [facility] Specimen Urine Performing Organization Address [facility] Phone Number [facility] [address], [place] [id number] [place] Urine culture (03/03/2018 11:08 AM CDT) Result PSEUDOMONAS AERUGINOSA (A) [facility] Specimen Urine Organism Antibiotic Method Susceptibility Pseudomonas aeruginosa Amikacin [...] aeruginosa Tobramycin <=2: Susceptible Performing Organization Address [facility] Phone Number [address] [id number] [place] ED ECG Interpretation (03/02/2018 7:12 AM CDT) Narrative Performed At Macrina Gómez MD 03/02/20187:12 AM ECG/EKG Interpretation Date/Time: 03/01/2018 10:25 AM Performed by: MACRINA GÓMEZ. Authorized by: MACRINA GÓMEZ The ECG was interpreted by ED physician. The ECG is interpreted as sinus rhythm. Rate is normal rate. Conduction: conduction normal. ST segments abnormal. T waves abnormal. [place] is normal. Other findings: no other findings. Clinical Impression: non-specific ECG and abnormal ECG CT abdomen pelvis without contrast (03/01/2018 1:46 PM CDT) Specimen Narrative Performed At FINAL REPORT [employer] [facility] ABDOMINAL AND PELVIS CT DATED 03/01/2018 CLINICAL [...] MD Report Verified Date/Time:03/01/2018 15:15:27 Reading Location: [facility] B1 C013Y CT Body Reading Room Procedure Note [...] Report Verified Date/Time: 03/01/2018 15:15:27 Reading Location: [facility] C013Y CT Body Reading Room Performing Organization Address City/State/Zipcode Phone Number GE RIS CBC with platelet count + automated diff (03/01/2018 10:29 AM CDT) WBC 5.6 3.5 - 10.5 K/L [facility] RBC 3.10 (L) 4.63 - 6.08 M/L [facility] Hemoglobin 9.8 (L) 13.7 - 17.5 GM/DL [facility] Hematocrit 29.7 (L) 40.1 - 51.0 % [facility] MCV 95.8 (H) 79.0 - 92.2 fL [facility] MCH 31.6 25.7 - 32.2 pg [facility] MCHC 33.0 32.3 - 36.5 GM/DL [facility] RDW 14.0 11.6 - 14.4 % [facility] Platelets 171 150 - 450 K/CU MM [facility] MPV 11.1 9.4 - 12.4 fL [facility] nRBC 0 0 - 0 /100 WBC [facility] % Neutros 69 % [facility] % Lymphs 16 % [facility] % Monos 10 % [facility] % Eos 4 % [facility] % Baso 1 % [facility] # Neutros 3.88 1.78 - 5.38 K/L [facility] # Lymphs 0.88 (L) 1.32 - 3.57 K/L [facility] # Monos 0.56 0.30 - 0.82 K/L [facility] # Eos 0.25 0.04 - 0.54 K/L [facility] # Baso 0.03 0.01 - 0.08 K/L [facility] Immature Granulocytes-Relative 0 0 - 1 % [facility] Specimen Blood Performing Organization Address City/[facility]/Zipcode Phone Number [address] [address] CENTER Lipase (03/01/2018 10:29 AM CDT) Lipase 61 8 - 78 U/L [facility] Specimen Blood Performing Organization Address City/[facility] Phone Number [address] [address] [place] Amylase (03/01/2018 10:29 AM CDT) Amylase 113 25 - 125 U/L [facility] Specimen Blood Performing Organization Address City/[facility]/Zipcode Phone Number [address] [address] [place] Hepatic function panel (03/01/2018 10:29 AM CDT) Protein, Total 6.8 6.0 - 8.3 gm/dL [facility] Albumin 3.5 3.5 - 5.0 g/dL [facility] Total Bilirubin 0.4 0.2 - 1.2 mg/dL [facility] Bilirubin, Direct 0.2 0.1 - 0.5 mg/dL [facility] Alkaline Phosphatase 78 40 - 150 U/L [facility] AST 20 5 - 34 U/L [facility] ALT 21 6 - 55 U/L [facility] Specimen Blood Performing Organization Address City/State/Zipcode Phone Number [facility] [address] [place] [address] CENTER Basic Metabolic Panel (03/01/2018 10:29 AM CDT) Sodium 136 136 - 145 meq/L [facility] Potassium 4.0 3.5 - 5.1 meq/L [facility] Chloride 108 (H) 98 - 107 meq/L [facility] CO2 15 (L) 22 - 29 meq/L [facility] BUN 80 (H) 7 - 21 mg/dL [facility] Creatinine 4.79 (H) 0.57 - 1.25 mg/dL [facility] Glucose 84 70 - 105 mg/dL [facility] Calcium 8.9 8.4 - 10.2 mg/dL [facility] EGFR 12Comment: ESTIMATED GFR IS mL/min/1.73 sq m [facility] NOT ACCURATE CREATININE [facility] CENTER CLEARANCE IN PREDICTING GLOMERULAR FILTRATION RATE. ESTIMATED GFR IS NOT APPLICABLE FOR DIALYSIS PATIENTS. Specimen Blood Performing Organization Address City/[facility] Phone Number [facility] [address] [place] [address] FOREST ECG 12 lead (03/01/2018 10:20 AM CDT) Specimen Narrative Performed At Ventricular Rate 62 BPM GE MUSE Atrial Rate 62 BPM P-R Interval 178 ms QRS Duration 96 ms Q-T Interval 452 ms QTC Calculation(Bazett) 458 ms P [place] 66 degrees R [place] -24 degrees T [place] 140 degrees Normal sinus rhythm Possible [...] 452 ms QTC Calculation(Bazett) 458 ms P [place] 66 degrees R [place] -24 degrees T [place] 140 degrees Normal sinus rhythm Possible [...] AM Performing Organization Address City/State/Zipcode Phone Number GE MUSE after 11/03/2017 Insurance Payer Benefit Plan / Group Subscriber ID Type Phone Address MEDICARE MEDICARE A B xxxxxxxxxx Medicare MEDICAID [place]ICAID [place] xxxxxxxxx Medicaid Advance Directives For more information, please contact:[address] [phone] Code Status Date Activated Date Inactivated Comments [...]
--- OUTSIDE RECORDS SUMMARY | 2018-11-04 10:51 | XMS REPORT ---
:1940 [facility] Address [address] [place] [address] Dr. Manley [address] [place] [address] Care Team Providers Name Role Phone LAZRODNEY [...] Comments CULTURE (BEAKER) (test PSEUDOMONAS 70-79,000 col/mL neat=8913) AERUGINOSA Pseudomonas aeruginosa Amikacin (test code=1) Susceptible [...] code=25) Resistant <0 or >4 URINALYSIS W/ [id number] 12:06:00 Test Item Value Reference Range Comments COLOR (BEAKER) (test gyzv=354) Yellow CLARITY (BEAKER) (test btsh=106) Hazy SPECIFIC GRAVITY UA (BEAKER) (test vwca=886) 1.012 1.001-1.035 PH UA (BEAKER) (test homt=959) 6.0 5.0-8.0 PROTEIN UA (BEAKER) (test hqwl=277) 600 mg/dL Negative GLUCOSE UA (BEAKER) (test qazb=787) 100 mg/dL Negative KETONES UA (BEAKER) (test wilc=014) Negative Negative BILIRUBIN UA (BEAKER) (test wkro=725) Negative Negative BLOOD UA (BEAKER) (test vamb=483) Moderate Negative NITRITE UA (BEAKER) (test ncaf=774) Negative Negative LEUKOCYTE ESTERASE UA (BEAKER) (test nubf=491) Small Negative UROBILINOGEN UA (BEAKER) (test nzgu=154) 0.2 mg/dL 0.2-1.0 RBC UA (BEAKER) (test hptp=723) 27 /HPF WBC UA (BEAKER) (test pfaj=924) 12 /HPF BACTERIA (BEAKER) (test uqol=941) Occasional MUCUS (BEAKER) (test hpmz=5988) Rare SQUAMOUS EPITHELIAL (BEAKER) (test tmbk=185) < /HPF HYALINE CASTS (BEAKER) (test zalh=752) 2 /LPF GRANULAR CASTS (BEAKER) (test walu=162) 5 /LPF SOURCE(BEAKER) (test zuhi=2569) Urine, Yusuf CT, [id number] 15:15:00Reason for exam:->ABDOMINAL PAINWhat is the patient's [...] Date/ Time: 03/01/2018 15:15:27 Reading Location: [address] Body Reading Room BASIC METABOLIC [id number] 11:04:00 Test Item Value Reference Range Comments SODIUM (BEAKER) (test 136 meq/L 136-145 udnk=831) POTASSIUM (BEAKER) (test 4.0 meq/L 3.5-5.1 lkex=652) CHLORIDE (BEAKER) (test 108 meq/L 98-107 erla=441) CO2 (BEAKER) (test 15 meq/L 22-29 jwcg=078) BLOOD UREA NITROGEN 80 mg/dL 7-21 (BEAKER) (test ygeh=341) CREATININE (BEAKER) (test 4.79 mg/dL 0.57-1.25 ysux=746) GLUCOSE RANDOM (BEAKER) 84 mg/dL 70-105 (test jiem=949) CALCIUM (BEAKER) (test 8.9 mg/dL 8.4-10.2 tizs=512) EGFR (BEAKER) (test 12 mL/min/1.73 sq m ESTIMATED GFR IS NOT dmav=1369) ACCURATE CREATININE CLEARANCE IN PREDICTING GLOMERULAR FILTRATION RATE. ESTIMATED GFR IS NOT APPLICABLE FOR DIALYSIS PATIENTS. [id number] 11:02:00 Test Item Value Reference Range Comments LIPASE (BEAKER) (test slrj=152) 61 U/L 8-78 [id number] 11:02:00 Test Item Value Reference Range Comments AMYLASE (BEAKER) (test kkdz=628) 113 U/L 25-125 HEPATIC FUNCTION [id number] 11:02:00 Test Item Value Reference Range Comments TOTAL PROTEIN (BEAKER) (test rwlb=832) 6.8 gm/dL 6.0-8.3 ALBUMIN (BEAKER) (test cbvf=1116) 3.5 g/dL 3.5-5.0 BILIRUBIN TOTAL (BEAKER) (test ilme=039) 0.4 mg/dL 0.2-1.2 BILIRUBIN DIRECT (BEAKER) (test ycat=021) 0.2 mg/dL 0.1-0.5 ALKALINE PHOSPHATASE (BEAKER) (test plwa=945) 78 U/L 40-150 AST (SGOT) (BEAKER) (test xbpp=851) 20 U/L 5-34 ALT (SGPT) (BEAKER) (test optz=696) 21 U/L 6-55 URINALYSIS W/ [id number] 11:01:00 Test Item Value Reference Range Comments COLOR (BEAKER) (test cbwv=731) Light Yellow CLARITY (BEAKER) (test iems=326) Clear SPECIFIC GRAVITY UA (BEAKER) (test sdfz=502) 1.006 1.001-1.035 PH UA (BEAKER) (test qygl=066) 6.0 5.0-8.0 PROTEIN UA (BEAKER) (test rpbv=292) 300 mg/dL Negative GLUCOSE UA (BEAKER) (test wvbw=261) 30 mg/dL Negative KETONES UA (BEAKER) (test imap=482) Negative Negative BILIRUBIN UA (BEAKER) (test cjyt=067) Negative Negative BLOOD UA (BEAKER) (test yeqd=021) Trace Negative NITRITE UA (BEAKER) (test mkur=872) Negative Negative LEUKOCYTE ESTERASE UA (BEAKER) (test heha=346) Negative Negative UROBILINOGEN UA (BEAKER) (test hucc=340) 0.2 mg/dL 0.2-1.0 RBC UA (BEAKER) (test cejr=835) < /HPF WBC UA (BEAKER) (test lsdb=930) < /HPF BACTERIA (BEAKER) (test sbaa=755) Rare MUCUS (BEAKER) (test pbwd=8912) Rare SOURCE(BEAKER) (test kolw=5857) Urine, Voided CBC W/PLT COUNT & AUTO [id number] 10:49:00 Test Item Value Reference Range Comments WHITE BLOOD CELL COUNT (BEAKER) (test mbfj=442) 5.6 K/ L 3.5-10.5 RED BLOOD CELL COUNT (BEAKER) (test accz=769) 3.10 M/ L 4.63-6.08 HEMOGLOBIN (BEAKER) (test vges=312) 9.8 GM/DL 13.7-17.5 HEMATOCRIT (BEAKER) (test dgxy=226) 29.7 % 40.1-51.0 MEAN CORPUSCULAR VOLUME (BEAKER) (test uuvw=090) 95.8 fL 79.0-92.2 MEAN CORPUSCULAR HEMOGLOBIN (BEAKER) (test 31.6 pg 25.7-32.2 wlej=307) MEAN CORPUSCULAR HEMOGLOBIN CONC (BEAKER) (test 33.0 GM/DL 32.3-36.5 eyjz=962) RED CELL DISTRIBUTION WIDTH (BEAKER) (test 14.0 % 11.6-14.4 puyg=553) PLATELET COUNT (BEAKER) (test abxs=746) 171 K/CU MM 150-450 MEAN PLATELET VOLUME (BEAKER) (test bqqg=670) 11.1 fL 9.4-12.4 NUCLEATED RED BLOOD CELLS (BEAKER) (test 0 /100 WBC 0-0 wllo=054) NEUTROPHILS RELATIVE PERCENT (BEAKER) (test 69 % ywve=271) LYMPHOCYTES RELATIVE PERCENT (BEAKER) (test 16 % gozy=230) MONOCYTES RELATIVE PERCENT (BEAKER) (test 10 % ryni=596) EOSINOPHILS RELATIVE PERCENT (BEAKER) (test 4 % cwal=337) BASOPHILS RELATIVE PERCENT (BEAKER) (test 1 % ogwt=257) NEUTROPHILS ABSOLUTE COUNT (BEAKER) (test 3.88 K/ L 1.78-5.38 izgu=775) LYMPHOCYTES ABSOLUTE COUNT (BEAKER) (test 0.88 K/ L 1.32-3.57 isuw=661) MONOCYTES ABSOLUTE COUNT (BEAKER) (test 0.56 K/ L 0.30-0.82 ylpt=838) EOSINOPHILS ABSOLUTE COUNT (BEAKER) (test 0.25 K/ L 0.04-0.54 dyho=065) BASOPHILS ABSOLUTE COUNT (BEAKER) (test 0.03 K/ L 0.01-0.08 fhqm=617) IMMATURE GRANULOCYTES-RELATIVE PERCENT (BEAKER) 0 % 0-1 (test puse=4997)
[2018-11-04 11:36] LABS: Absolute Lymphocytes (CBC) 0.4 K/uL (0.7-4.9); Absolute Monocytes 0.2 K/uL (0.1-1.3); Absolute Neutrophil 2.8 K/uL (1.8-8.0); Basophils % 0.7 % (0-1.3); Eosinophils % 1.9 % (0-4.4); Hematocrit 27.9 % (39.6-49.0); Lymphocytes % 10.3 % (15.3-44.8); MPV 7.9 fL (7.6-11.3); Monocytes % 6.9 % (3.3-12.3); RBC Red Blood Cell Count 2.84 M/uL (4.33-5.43)
[2018-11-04 11:41] LABS: Protime INR 1.23
--- NOTE | 2018-11-04 11:45 | RAD REPORT ---
EXAM DESCRIPTION: RAD - Chest Single View - 11/04/2018 11:38 am CLINICAL HISTORY: CHEST PAIN Chest pain. COMPARISON: Chest Single View dated 10/02/2018; Chest Single View dated 08/03/2018; Chest Single View dated 07/27/2018; Chest Single View dated 05/27/2018 FINDINGS: Portable technique limits examination quality. Moderate bilateral pulmonary edema with pleural effusions, unchanged. Right-sided venous catheter is in stable position. The heart is moderately enlarged with postsurgical changes present. No displaced fractures. IMPRESSION: Stable moderate CHF/ volume overload findings since comparative study.
[2018-11-04 12:09] LABS: Albumin 3.7 g/dL (3.4-5.0); Bilirubin Direct 0.3 mg/dL (0-0.2); Bilirubin Total 0.6 mg/dL (0.2-1.0); Magnesium 2.1 mg/dL (1.8-2.4); Protein, Total 7.5 g/dL (6.4-8.2); Troponin (Emerg Dept Use Only) 0.04 ng/mL (0.0-0.045)
[2018-11-04] MEDS ORDERED: LORazepam 2 MG/ML VIAL ONE (13:11)
[2018-11-04] MEDS ORDERED: MORPHINE 2 MG/ML SYR ONE (13:11)
[2018-11-04] MEDS ORDERED: ONDANSETRON 4 MG/2 ML VIAL ONE (13:12)
--- NOTE | 2018-11-04 13:57 | EDPHYS ---
Physician Documentation [facility] Name: Blaise Quarles Age: 78 yrs Sex: Male : 1940 Arrival Date: 11/04/2018 Time: 10:50 Bed 15 Private MD: ED Physician Matthew Casiano HPI: 11/04 12:58 This 78 yrs old Male presents to ER via Wheelchair with complaints of Chest kdr Pain. 12:58 The patient or guardian reports chest pain that is located primarily in the substernal kdr area, anterior chest wall, bilaterally. Onset: just prior to arrival, The patient was at dialysis and did not finish because he started to have chest pain and anxiety. The pain does not radiate. 13:41 Associated signs and symptoms: Pertinent positives: shortness of breath, anxious. The kdr chest pain is described as dull, a heaviness, a pressure. Duration: The patient or guardian reports a single episode, that is still ongoing, but improving. Modifying factors: The symptoms are alleviated by nothing. the symptoms are aggravated by nothing. Severity of pain: At its worst the pain was mild in the emergency department the pain has improved mildly. The patient has experienced similar episodes in the past, multiple times. Historical: - Allergies: 10:57 Aspirin; aj1 - Home Meds: 10:57 amlodipine 10 mg tab 1 tab once daily [Active]; clonazepam 1 mg Oral tab 1 tab 2 times aj1 per day [Active]; nitroglycerin 0.4 mg SL subl 1 tab [Active]; Risperdal 0.5 mg Oral tab 1 tabs 2 times per day [Active]; trazodone 100 mg Oral tab 1 tab nightly [Active]; - PMHx: 10:57 Anemia; CAD; cardiomegaly; CHF; chronic renal disease; Cirrhosis; Diabetes - IDDM; aj1 Dialysis; High Cholesterol; Hypertension; Myocardial infarction; pleural effusion; pulmonary nodule; Visually impared; - Immunization history:: Flu vaccine is not up to date. - Social history:: Smoking status: Patient/guardian denies using tobacco. - Ebola Screening: : Patient denies travel to an Ebola-affected area in the 21 days before illness onset. ROS: 13:41 Constitutional: Negative for fever, chills, and weight loss, Eyes: Negative for injury, kdr pain, redness, and discharge, ENT: Negative for injury, pain, and discharge, Neck: Negative for injury, pain, and swelling, Abdomen/GI: Negative for abdominal pain, nausea, vomiting, diarrhea, and constipation, Back: Negative for injury and pain, : Negative for injury, bleeding, discharge, and swelling, MS/Extremity: Negative for injury and deformity, Skin: Negative for injury, rash, and discoloration, Neuro: Negative for headache, weakness, numbness, tingling, and seizure activity. Allergy/Immunology: Negative for hives, rash, and allergies, Endocrine: Negative for neck swelling, polydipsia, polyuria, polyphagia, and marked weight changes, Hematologic/Lymphatic: Negative for swollen nodes, abnormal bleeding, and unusual bruising. 13:41 Cardiovascular: Positive for chest pain, of the chest, Negative for edema, orthopnea, palpitations, paroxysmal nocturnal dyspnea. 13:41 Respiratory: Positive for dyspnea on exertion, shortness of breath, Negative for cough, hemoptysis, orthopnea, pleurisy, sputum production, wheezing. 13:41 Psych: Positive for anxiety, Negative for depression, drug dependence, alcohol dependence, auditory hallucinations, visual hallucinations, homicidal ideation, insomnia. Exam: 13:41 Constitutional: This is a well developed, well nourished patient who is awake, alert, kdr and in no acute distress. Head/Face: Normocephalic, atraumatic. Eyes: Pupils equal round and reactive to light, extra-ocular motions intact. Lids and lashes normal. Conjunctiva and sclera are non-icteric and not injected. Cornea within normal limits. Periorbital areas with no swelling, redness, or edema. Neck: Trachea midline, no thyromegaly or masses palpated, and no cervical lymphadenopathy. Supple, full range of motion without nuchal rigidity, or vertebral point tenderness. No Meningismus. Chest/axilla: Normal chest wall appearance and motion. Nontender with no deformity. No lesions are appreciated. Cardiovascular: Regular rate and rhythm with a normal S1 and S2. No gallops, murmurs, or rubs. Normal PMI, no JVD. No pulse deficits. Respiratory: Lungs have equal breath sounds bilaterally, clear to auscultation and percussion. No rales, rhonchi or wheezes noted. No increased work of breathing, no retractions or nasal flaring. Abdomen/GI: Soft, non-tender, with normal bowel sounds. No distension or tympany. No guarding or rebound. No evidence of tenderness throughout. Back: No spinal tenderness. No costovertebral tenderness. Full range of motion. Skin: Warm, dry with normal turgor. Normal color with no rashes, no lesions, and no evidence of cellulitis. MS/ Extremity: Pulses equal, no cyanosis. Neurovascular intact. Full, normal range of motion. Neuro: Awake and alert, GCS 15, oriented to person, place, time, and situation. Cranial nerves II-XII grossly intact. Motor strength 5/5 in all extremities. Sensory grossly intact. Cerebellar exam normal. Normal gait. Psych: Awake, alert, with orientation to person, place and time. Behavior, mood, and affect are within normal limits. Vital Signs: 10:57 BP 162 / 70; Pulse 71; Resp 28; Temp 98.3(TE); Pulse Ox 88% on 3 lpm NC; Pain 8/10; aj1 11:30 BP 167 / 76; Pulse 68; Resp 22; Pulse Ox 92% on 3 lpm NC; Pain 8/10; rb1 12:30 BP 167 / 67; Pulse 69; Resp 27; Pulse Ox 100% on 3 lpm NC; rb1 13:30 BP 157 / 82; Pulse 65; Resp 17; Pulse Ox 97% on 3 lpm NC; rb1 14:17 BP 153 / 71; Pulse 61; Resp 17; Pulse Ox 98% on 3 lpm NC; Pain 6/10; rb1 15:15 BP 148 / 75; Pulse 64; Resp 20; Pulse Ox 97% on R/A; rb1 16:09 BP 149 / 78; Pulse 66; Resp 18; Pulse Ox 96% on 3 lpm NC; rb1 MDM: 13:41 TRISH Risk Score: 1 - patient's age is greater or equal to 65 years, 1- Known CAD, TOTAL kdr SCORE = 2. Data reviewed: vital signs, nurses notes, lab test result(s). 13:56 Patient medically screened. kdr 11/04 10:58 Order name: Basic Metabolic Panel; Complete Time: 12:24 kdr 11/04 10:58 Order name: CBC with Diff; Complete Time: 12:24 kdr 11/04 10:58 Order name: LFT's; Complete Time: 12:24 kdr 11/04 10:58 Order name: Magnesium; Complete Time: 12:24 kdr 11/04 10:58 Order name: NT PRO-BNP; Complete Time: 12: kdr 11/04 10:58 Order name: PT-INR; Complete Time: 12: kdr 11/04 10:58 Order name: Troponin (emerg Dept Use Only); Complete Time: 12:24 kdr 11/04 10:58 Order name: XRAY Chest (1 view); Complete Time: 12: kdr 11/04 10:58 Order name: EKG; Complete Time: 10:59 kdr 11/04 10:58 Order name: Cardiac monitoring; Complete Time: : kdr 11/04 13:57 Order name: Troponin (emerg Dept Use Only): 2 hours from initial draw; Complete Time: kdr 15:47 11/04 10:58 Order name: EKG - Nurse/Tech; Complete Time: : kdr 11/04 10:58 Order name: IV Saline Lock; Complete Time: kdr 11/04 10:58 Order name: Labs collected and sent; Complete Time: kdr 11/04 10:58 Order name: O2 Per Protocol; Complete Time: : kdr 11/04 10:58 Order name: O2 Sat Monitoring; Complete Time: kdr Administered Medications: 12:56 Drug: Ativan 0.5 mg Route: IVP; Site: right forearm; hj 13:18 Follow up: Response: No adverse reaction; Anxiety decreased hj 12:56 Drug: morphine 2 mg Route: IVP; Site: right forearm; hj 13:18 Follow up: Response: No adverse reaction; Pain is decreased hj 12:56 Drug: Zofran 2 mg Route: IVP; Site: right forearm; hj 13:18 Follow up: Response: No adverse reaction; Nausea is decreased hj Disposition: 11/04/18 13:56 Discharged to Home. Impression: Chest pain, unspecified. - Condition is Fair. - Discharge Instructions: Nonspecific Chest Pain, [id number]-[id number], Generalized Anxiety Disorder. - Prescriptions for Tramadol 50 mg Oral Tablet - take 1 tablet by ORAL route every 8 hours as needed; 12 tablet. - Medication Reconciliation Form, Thank You Letter form. - Follow up: Private Physician; When: 2 - 3 days; Reason: If symptoms return, Further diagnostic work-up, Recheck today's complaints, Continuance of care, Re-evaluation by your physician. - Problem is new. - Symptoms are resolved. Signatures: Dispatcher [employer] Rivka Saldivar RN RN aj1 Matthew Casiano MD MD kdr Jesse Kwong RN RN hj Harriet Ca RN RN rb1 Corrections: (The following items were deleted from the chart) 16:10 13:56 11/04/2018 13:56 Discharged to Home. Impression: Chest pain, unspecified. rb1 Condition is Fair. Forms are Medication Reconciliation Form, Thank You Letter, Antibiotic Education, Prescription Opioid Use. Follow up: Private Physician; When: 2 - 3 days; Reason: If symptoms return, Further diagnostic work-up, Recheck today's complaints, Continuance of care, Re-evaluation by your physician. Problem is new. Symptoms are resolved. kdr
--- NOTE | 2018-11-04 13:57 | ER ---
Nurse's Notes [facility] Name: Blaise Quarles Age: 78 yrs Sex: Male : 1940 Arrival Date: 11/04/2018 Time: 10:50 Bed 15 Private MD: Diagnosis: Chest pain, unspecified Presentation: 11/04 10:54 Presenting complaint: Child states: Chest pain since yesterday. Patient also reports aj1 shortness of breath. Patient wears home O2 \T\3L. Transition of care: patient was not received from another setting of care. Onset of symptoms was November 03, 2018. Risk Assessment: Do you want to hurt yourself or someone else? Patient reports no desire to harm self or others. Initial Sepsis Screen: Does the patient meet any 2 criteria? RR > 20 per min. No. Patient's initial sepsis screen is negative. Does the patient have a suspected source of infection? No. Patient's initial sepsis screen is negative. Care prior to arrival: None. 10:54 Method Of Arrival: Wheelchair aj1 10:54 Acuity: SARATH 2 aj1 Triage Assessment: 10:57 General: Appears uncomfortable, Behavior is cooperative, anxious. Pain: Complains of aj1 pain in mid-sternal area Pain currently is 8 out of 10 on a pain scale. Neuro: Level of Consciousness is awake, alert, obeys commands. Cardiovascular: Reports chest pain. Respiratory: Airway is patent Respiratory effort is even, Respiratory pattern is regular, symmetrical, tachypnea. Historical: - Allergies: 10:57 Aspirin; aj1 - Home Meds: 10:57 amlodipine 10 mg tab 1 tab once daily [Active]; clonazepam 1 mg Oral tab 1 tab 2 times aj1 per day [Active]; nitroglycerin 0.4 mg SL subl 1 tab [Active]; Risperdal 0.5 mg Oral tab 1 tabs 2 times per day [Active]; trazodone 100 mg Oral tab 1 tab nightly [Active]; - PMHx: 10:57 Anemia; CAD; cardiomegaly; CHF; chronic renal disease; Cirrhosis; Diabetes - IDDM; aj1 Dialysis; High Cholesterol; Hypertension; Myocardial infarction; pleural effusion; pulmonary nodule; Visually impared; - Immunization history:: Flu vaccine is not up to date. - Social history:: Smoking status: Patient/guardian denies using tobacco. - Ebola Screening: : Patient denies travel to an Ebola-affected area in the 21 days before illness onset. Screenin:05 Abuse screen: Denies threats or abuse. Nutritional screening: No deficits noted. rb1 Tuberculosis screening: No symptoms or risk factors identified. 11:05 Fall Risk No fall in past 12 months (0 pts). Secondary diagnosis (15 points) impaired rb1 mobility, IV access (20 points). Ambulatory Aid- Crutches/Cane/Walker (15 pts). Gait- Impaired (20 pts.). Mental Status- Oriented to own ability (0 pts). Total Parson Fall Scale indicates High Risk Score (45 or more points). Fall prevention measures have been instituted. Side Rails Up X 2 Placed Close to Nursing Station 1:1 Attendant Assigned Frequent Obs/Assessments Occuring Family Present and informed to notify staff if the need to leave the bedside As available patient and family educated on Fall Prevention Program and Strategies. Assessment: 11:05 General: Appears in no apparent distress. comfortable, Behavior is calm, cooperative, rb1 Denies fever. Pain: Complains of pain in chest Pain does not radiate. Pain currently is 8 out of 10 on a pain scale. Pain began 1 day ago. Neuro: Level of Consciousness is awake, alert, obeys commands, Oriented to person, place, time, situation. Cardiovascular: Capillary refill < 3 seconds is brisk in bilateral fingers. Respiratory: Airway is patent Respiratory effort is even, unlabored, Respiratory pattern is regular, symmetrical. GI: No signs and/or symptoms were reported involving the gastrointestinal system. : Reports dialysis on Thursday, , and Thursday. Pt. did not receive dialysis today, was told by the nurse to come to the ER due to having chest pain. Derm: Skin is dry, Skin is normal, Skin temperature is warm. 11:32 Reassessment: X-ray at bedside. rb1 12:00 Reassessment: Patient appears in no apparent distress at this time. No changes from rb1 previously documented assessment. 13:00 Reassessment: Patient appears in no apparent distress at this time. Patient and/or rb1 family updated on plan of care and expected duration. Pain level reassessed. Patient is alert, oriented x 3, equal unlabored respirations, skin warm/dry/pink. 14:00 Reassessment: Patient appears in no apparent distress at this time. No changes from rb1 previously documented assessment. Family at bedside. 14:51 Reassessment: Discharge pending due to waiting for troponin results. rb1 15:00 Reassessment: Patient appears in no apparent distress at this time. Patient and/or rb1 family updated on plan of care and expected duration. Pain level reassessed. Patient is alert, oriented x 3, equal unlabored respirations, skin warm/dry/pink. 15:50 Reassessment: Waiting for Dr. Casiano to give the go ahead for discharge. Dr. Casiano rb1 is aware that he put the pt. up for discharge two hours ago. 16:00 Reassessment: Patient appears in no apparent distress at this time. No changes from rb1 previously documented assessment. Family at bedside. Vital Signs: 10:57 BP 162 / 70; Pulse 71; Resp 28; Temp 98.3(TE); Pulse Ox 88% on 3 lpm NC; Pain 8/10; aj1 11:30 BP 167 / 76; Pulse 68; Resp 22; Pulse Ox 92% on 3 lpm NC; Pain 8/10; rb1 12:30 BP 167 / 67; Pulse 69; Resp 27; Pulse Ox 100% on 3 lpm NC; rb1 13:30 BP 157 / 82; Pulse 65; Resp 17; Pulse Ox 97% on 3 lpm NC; rb1 14:17 BP 153 / 71; Pulse 61; Resp 17; Pulse Ox 98% on 3 lpm NC; Pain 6/10; rb1 15:15 BP 148 / 75; Pulse 64; Resp 20; Pulse Ox 97% on R/A; rb1 16:09 BP 149 / 78; Pulse 66; Resp 18; Pulse Ox 96% on 3 lpm NC; rb1 ED Course: 10:50 Patient arrived in ED. as 10:55 Triage completed. aj1 10:57 Arm band placed on. aj1 10:58 Matthew Casiano MD is Attending Physician. kdr 11:05 Patient has correct armband on for positive identification. Bed in low position. Call rb1 light in reach. Side rails up X2. edging catcher on. Pulse ox on. NIBP on. 11:05 Patient maintains SpO2 saturation greater than 95% on room air. rb1 11:07 EKG done, by it field technician. reviewed by Matthew Casiano MD. tc 11:15 Harriet Ca, RN is Primary Nurse. rb1 11:25 Inserted saline lock: 22 gauge in right forearm, using aseptic technique. ,using rb1 aseptic technique. Inserted by ADELINA Huber. Blood collected. 11:39 XRAY Chest (1 view) In Process Unspecified. EDMS 16:09 No provider procedures requiring assistance completed. IV discontinued, intact, rb1 bleeding controlled, No redness/swelling at site. Pressure dressing applied. Administered Medications: 12:56 Drug: Ativan 0.5 mg Route: IVP; Site: right forearm; hj 13:18 Follow up: Response: No adverse reaction; Anxiety decreased hj 12:56 Drug: morphine 2 mg Route: IVP; Site: right forearm; hj 13:18 Follow up: Response: No adverse reaction; Pain is decreased hj 12:56 Drug: Zofran 2 mg Route: IVP; Site: right forearm; hj 13:18 Follow up: Response: No adverse reaction; Nausea is decreased hj Outcome: 13:56 Discharge ordered by . kdr 16:09 Discharged to home via wheelchair, with family. rb1 16:09 Condition: stable 16:09 Discharge instructions given to family, Instructed on discharge instructions, follow up and referral plans. medication usage, Demonstrated understanding of instructions, follow-up care, medications, Prescriptions given X 1. 16:10 Patient left the ED. rb1 Signatures: Dispatcher [employer] [facility] Rivka Lyons RN RN aj1 Matthew Casiano MD MD kdr Martinez, Amelia as Blanca Lion, acid regenerator EKG Ttc Jesse Kwong RN RN Harriet Ca, RN RN rb1 Corrections: (The following items were deleted from the chart) 14:18 12:30 BP 167 / 67; Pulse 69bpm; Resp 27bpm; Pulse Ox 100% RA; rb1 rb1 14:18 13:30 BP 157 / 82; Pulse 65bpm; Resp 17bpm; Pulse Ox 97%; rb1 rb1
[2018-11-04 17:12] VITALS: TEMP 98.3
[2018-11-04 17:21] VITALS: BP 149/78; O2SAT 96
--- NOTE | 2018-11-05 06:45 | EKG ---
Test Date: 2018-11-04 Test Time: 10:57:44 Pot Operator: RON MEASUREMENT RESULTS: Intervals: Rate: 72 NH: 174 QRSD: 100 QT: 416 QTc: 455 Dille: P: 56 NH: 174 QRS: -16 T: 132 INTERPRETIVE STATEMENTS: Normal sinus rhythm Possible Left atrial enlargement Septal infarct, age undetermined T wave abnormality, consider lateral ischemia Abnormal ECG Compared to ECG 10/02/2018 05:17:58 Left-axis deviation no longer present Myocardial infarct finding still present T-wave abnormality still present Possible ischemia still present Electronically Signed On 11-05-18 06:42:42 CDT by Brandon Pérez
== END 2018-11-04 16:10 | disposition home or self-care (01) ==
LOC: ER 10:48
DX: R07.9 Chest pain, unspecified (principal); R06.02 Shortness of breath; D64.9 Anemia, unspecified; I13.2 Hypertensive heart and chronic kidney disease with heart failure and with stage 5 chronic kidney disease, or end stage renal disease; N18.6 End stage renal disease; I50.9 Heart failure, unspecified; E11.22 Type 2 diabetes mellitus with diabetic chronic kidney disease; Z99.2 Dependence on renal dialysis
CPT/HCPCS: 93005; 85025; 80048; 36415; 83735; 85610; 80076; 84484 ×2; 83880; 71045; 96375; 96374; 99285; J2270; J2405

== ENCOUNTER 2018-11-14 22:40 | Emergency (ER) | payer OTHER ==
--- OUTSIDE RECORDS SUMMARY | 2018-11-14 23:06 | XMS REPORT ---
:1940 Author Organization [facility] Address [address] [place] [address] Dr. Manley [address] [place] [address] Care Team Providers Name Role Phone LAZRODNEY [...] Comments CULTURE (BEAKER) (test PSEUDOMONAS 70-79,000 col/mL ehri=4514) AERUGINOSA Pseudomonas aeruginosa Amikacin (test code=1) Susceptible [...] code=25) Resistant <0 or >4 URINALYSIS W/ [id number] 12:06:00 Test Item Value Reference Range Comments COLOR (BEAKER) (test ympk=734) Yellow CLARITY (BEAKER) (test jfsj=395) Hazy SPECIFIC GRAVITY UA (BEAKER) (test lxia=880) 1.012 1.001-1.035 PH UA (BEAKER) (test jykb=873) 6.0 5.0-8.0 PROTEIN UA (BEAKER) (test wplb=194) 600 mg/dL Negative GLUCOSE UA (BEAKER) (test qdvb=589) 100 mg/dL Negative KETONES UA (BEAKER) (test wnpe=062) Negative Negative BILIRUBIN UA (BEAKER) (test qfje=811) Negative Negative BLOOD UA (BEAKER) (test zryj=591) Moderate Negative NITRITE UA (BEAKER) (test ycgj=805) Negative Negative LEUKOCYTE ESTERASE UA (BEAKER) (test dhat=473) Small Negative UROBILINOGEN UA (BEAKER) (test wxkm=286) 0.2 mg/dL 0.2-1.0 RBC UA (BEAKER) (test fiax=138) 27 /HPF WBC UA (BEAKER) (test vwad=411) 12 /HPF BACTERIA (BEAKER) (test vwzt=874) Occasional MUCUS (BEAKER) (test ulgn=0731) Rare SQUAMOUS EPITHELIAL (BEAKER) (test nzyx=408) < /HPF HYALINE CASTS (BEAKER) (test ycbu=424) 2 /LPF GRANULAR CASTS (BEAKER) (test qzed=751) 5 /LPF SOURCE(BEAKER) (test lros=9828) Urine, Yusuf CT, [id number] 15:15:00Reason for exam:->ABDOMINAL PAINWhat is the patient's [...] Verified Date/ Time: 03/01/2018 15:15:27 Reading Location: [address] Body Reading Room BASIC METABOLIC [id number] 11:04:00 Test Item Value Reference Range Comments SODIUM (BEAKER) (test 136 meq/L 136-145 wlfb=596) POTASSIUM (BEAKER) (test 4.0 meq/L 3.5-5.1 riwo=598) CHLORIDE (BEAKER) (test 108 meq/L 98-107 hnfy=594) CO2 (BEAKER) (test 15 meq/L 22-29 rezh=995) BLOOD UREA NITROGEN 80 mg/dL 7-21 (BEAKER) (test fpyt=228) CREATININE (BEAKER) (test 4.79 mg/dL 0.57-1.25 uvrz=100) GLUCOSE RANDOM (BEAKER) 84 mg/dL 70-105 (test dnmc=964) CALCIUM (BEAKER) (test 8.9 mg/dL 8.4-10.2 ovvp=493) EGFR (BEAKER) (test 12 mL/min/1.73 sq m ESTIMATED GFR IS NOT hhca=2998) ACCURATE CREATININE CLEARANCE IN PREDICTING GLOMERULAR FILTRATION RATE. ESTIMATED GFR IS NOT APPLICABLE FOR DIALYSIS PATIENTS. [id number] 11:02:00 Test Item Value Reference Range Comments LIPASE (BEAKER) (test hbqu=575) 61 U/L 8-78 [id number] 11:02:00 Test Item Value Reference Range Comments AMYLASE (BEAKER) (test vzlj=037) 113 U/L 25-125 HEPATIC FUNCTION [id number] 11:02:00 Test Item Value Reference Range Comments TOTAL PROTEIN (BEAKER) (test dijm=047) 6.8 gm/dL 6.0-8.3 ALBUMIN (BEAKER) (test gjht=8177) 3.5 g/dL 3.5-5.0 BILIRUBIN TOTAL (BEAKER) (test msmb=387) 0.4 mg/dL 0.2-1.2 BILIRUBIN DIRECT (BEAKER) (test oveq=404) 0.2 mg/dL 0.1-0.5 ALKALINE PHOSPHATASE (BEAKER) (test bnvf=596) 78 U/L 40-150 AST (SGOT) (BEAKER) (test qgtd=364) 20 U/L 5-34 ALT (SGPT) (BEAKER) (test kppe=944) 21 U/L 6-55 URINALYSIS W/ [id number] 11:01:00 Test Item Value Reference Range Comments COLOR (BEAKER) (test sgnb=405) Light Yellow CLARITY (BEAKER) (test yjiw=472) Clear SPECIFIC GRAVITY UA (BEAKER) (test ryzl=593) 1.006 1.001-1.035 PH UA (BEAKER) (test boiy=756) 6.0 5.0-8.0 PROTEIN UA (BEAKER) (test jnfn=398) 300 mg/dL Negative GLUCOSE UA (BEAKER) (test nhhd=237) 30 mg/dL Negative KETONES UA (BEAKER) (test srdp=610) Negative Negative BILIRUBIN UA (BEAKER) (test qdbe=818) Negative Negative BLOOD UA (BEAKER) (test injg=016) Trace Negative NITRITE UA (BEAKER) (test otsv=232) Negative Negative LEUKOCYTE ESTERASE UA (BEAKER) (test oqyx=404) Negative Negative UROBILINOGEN UA (BEAKER) (test zkjo=265) 0.2 mg/dL 0.2-1.0 RBC UA (BEAKER) (test tyvy=202) < /HPF WBC UA (BEAKER) (test xdqg=697) < /HPF BACTERIA (BEAKER) (test vbzp=932) Rare MUCUS (BEAKER) (test nlel=5296) Rare SOURCE(BEAKER) (test qubq=5203) Urine, Voided CBC W/PLT COUNT & AUTO [id number] 10:49:00 Test Item Value Reference Range Comments WHITE BLOOD CELL COUNT (BEAKER) (test aqdo=120) 5.6 K/ L 3.5-10.5 RED BLOOD CELL COUNT (BEAKER) (test gjwd=738) 3.10 M/ L 4.63-6.08 HEMOGLOBIN (BEAKER) (test zszo=325) 9.8 GM/DL 13.7-17.5 HEMATOCRIT (BEAKER) (test zdgi=575) 29.7 % 40.1-51.0 MEAN CORPUSCULAR VOLUME (BEAKER) (test wgxi=983) 95.8 fL 79.0-92.2 MEAN CORPUSCULAR HEMOGLOBIN (BEAKER) (test 31.6 pg 25.7-32.2 zqxm=665) MEAN CORPUSCULAR HEMOGLOBIN CONC (BEAKER) (test 33.0 GM/DL 32.3-36.5 wtin=137) RED CELL DISTRIBUTION WIDTH (BEAKER) (test 14.0 % 11.6-14.4 cqmf=707) PLATELET COUNT (BEAKER) (test mhij=498) 171 K/CU MM 150-450 MEAN PLATELET VOLUME (BEAKER) (test yhmf=228) 11.1 fL 9.4-12.4 NUCLEATED RED BLOOD CELLS (BEAKER) (test 0 /100 WBC 0-0 ogco=111) NEUTROPHILS RELATIVE PERCENT (BEAKER) (test 69 % zogv=001) LYMPHOCYTES RELATIVE PERCENT (BEAKER) (test 16 % aqqm=184) MONOCYTES RELATIVE PERCENT (BEAKER) (test 10 % xqpr=115) EOSINOPHILS RELATIVE PERCENT (BEAKER) (test 4 % eoxs=288) BASOPHILS RELATIVE PERCENT (BEAKER) (test 1 % pmvw=080) NEUTROPHILS ABSOLUTE COUNT (BEAKER) (test 3.88 K/ L 1.78-5.38 tgzb=199) LYMPHOCYTES ABSOLUTE COUNT (BEAKER) (test 0.88 K/ L 1.32-3.57 khqe=007) MONOCYTES ABSOLUTE COUNT (BEAKER) (test 0.56 K/ L 0.30-0.82 hugu=467) EOSINOPHILS ABSOLUTE COUNT (BEAKER) (test 0.25 K/ L 0.04-0.54 cgoz=193) BASOPHILS ABSOLUTE COUNT (BEAKER) (test 0.03 K/ L 0.01-0.08 lhvd=358) IMMATURE GRANULOCYTES-RELATIVE PERCENT (BEAKER) 0 % 0-1 (test edaf=2949)
--- OUTSIDE RECORDS SUMMARY | 2018-11-14 23:06 | XMS REPORT | Clinical Summary ---
:1940 Author Organization [facility] Address [address] [place] [address] Care Team Providers Name Role Phone Moo [...] 03/01/2018 Orders Only General Internal Medicine after 11/13/2017 Family History Medical History Relation Name Comments [...] 452 ms QTC Calculation(Bazett) 458 ms P [place] 66 degrees R [place] -24 degrees T [place] 140 degrees Normal sinus rhythm Possible Left [...] MICROSCOPIC STAT 03/01/2018 10:19 AM CDT after 11/13/2017 Results Urinalysis w/Microscopic (03/03/2018 11:08 AM CDT)Only the most recent of2 resultswithin the time period is included. Color, UA Yellow [facility] Clarity, UA Hazy [facility] Specific [place], UA 1.012 1.001 - 1.035 [facility] pH, UA 6.0 5.0 - 8.0 [facility] Protein, UA 600 mg/dL (A) Negative [facility] Glucose, UA 100 mg/dL (A) Negative [facility] Ketones, UA Negative Negative [facility] Bilirubin, UA Negative Negative [facility] Blood, UA Moderate (A) Negative [facility] Nitrite, UA Negative Negative [facility] Leukocytes, UA Small (A) Negative [facility] Urobilinogen, UA 0.2 0.2 - 1.0 mg/dL [facility] RBC, UA 27 /HPF [facility] WBC, UA 12 /HPF [facility] Bacteria, UA Occasional [facility] Mucus Rare [facility] Squam Epithel, UA <1 /HPF [facility] Hyaline Casts, UA 2 /LPF [facility] Granular Casts, UA 5 /LPF [facility] Specimen Source Urine, Yusuf [facility] Specimen Urine Performing Organization Address [facility] Phone Number [facility] [address] [place], [place] [id number] [phone] [place] Urine culture (03/03/2018 11:08 AM CDT) Result PSEUDOMONAS AERUGINOSA (A) [facility] Specimen Urine Organism Antibiotic Method Susceptibility Pseudomonas [...] aeruginosa Tobramycin <=2: Susceptible Performing Organization Address [facility] Phone Number [address] [phone] [place] ED ECG Interpretation (03/02/2018 7:12 AM CDT) Narrative Performed At Macrina Gómez MD 03/02/20187:12 AM ECG/EKG Interpretation Date/Time: 03/01/2018 10:25 AM Performed by: MACRINA GÓMEZ. Authorized by: MACRINA GÓMEZ The ECG was interpreted by ED physician. The ECG is interpreted as sinus rhythm. Rate is normal rate. Conduction: conduction normal. ST segments abnormal. T waves abnormal. [place] is normal. Other findings: no other findings. Clinical Impression: non-specific ECG and abnormal ECG CT abdomen pelvis without contrast (03/01/2018 1:46 PM CDT) Specimen Narrative Performed At FINAL REPORT [employer] [facility] ABDOMINAL AND PELVIS CT DATED 03/01/2018 CLINICAL [...] MD Report Verified Date/Time:03/01/2018 15:15:27 Reading Location: [facility] B1 C013Y CT Body Reading Room [...] Report Verified Date/Time: 03/01/2018 15:15:27 Reading Location: [facility] C013Y CT Body Reading Room Performing Organization Address City/State/Zipcode Phone Number GE RIS CBC with platelet count + automated diff (03/01/2018 10:29 AM CDT) WBC 5.6 3.5 - 10.5 K/L [facility] RBC 3.10 (L) 4.63 - 6.08 M/L [facility] Hemoglobin 9.8 (L) 13.7 - 17.5 GM/DL [facility] Hematocrit 29.7 (L) 40.1 - 51.0 % [facility] MCV 95.8 (H) 79.0 - 92.2 fL [facility] MCH 31.6 25.7 - 32.2 pg [facility] MCHC 33.0 32.3 - 36.5 GM/DL [facility] RDW 14.0 11.6 - 14.4 % [facility] Platelets 171 150 - 450 K/CU MM [facility] MPV 11.1 9.4 - 12.4 fL [facility] nRBC 0 0 - 0 /100 WBC [facility] % Neutros 69 % [facility] % Lymphs 16 % [facility] % Monos 10 % [facility] % Eos 4 % [facility] % Baso 1 % [facility] # Neutros 3.88 1.78 - 5.38 K/L [facility] # Lymphs 0.88 (L) 1.32 - 3.57 K/L [facility] # Monos 0.56 0.30 - 0.82 K/L [facility] # Eos 0.25 0.04 - 0.54 K/L [facility] # Baso 0.03 0.01 - 0.08 K/L [facility] Immature Granulocytes-Relative 0 0 - 1 % [facility] Specimen Blood Performing Organization Address City/[facility]/Zipcode Phone Number [address] [address] CENTER Lipase (03/01/2018 10:29 AM CDT) Lipase 61 8 - 78 U/L [facility] Specimen Blood Performing Organization Address City/[facility] Phone Number [address] [address] [place] Amylase (03/01/2018 10:29 AM CDT) Amylase 113 25 - 125 U/L [facility] Specimen Blood Performing Organization Address City/[facility]/Zipcode Phone Number [address] [address] [phone] [place] Hepatic function panel (03/01/2018 10:29 AM CDT) Protein, Total 6.8 6.0 - 8.3 gm/dL [facility] Albumin 3.5 3.5 - 5.0 g/dL [facility] Total Bilirubin 0.4 0.2 - 1.2 mg/dL [facility] Bilirubin, Direct 0.2 0.1 - 0.5 mg/dL [facility] Alkaline Phosphatase 78 40 - 150 U/L [facility] AST 20 5 - 34 U/L [facility] ALT 21 6 - 55 U/L [facility] Specimen Blood Performing Organization Address City/State/Zipcode Phone Number [facility] [address] [place] [address] CENTER Basic Metabolic Panel (03/01/2018 10:29 AM CDT) Sodium 136 136 - 145 meq/L [facility] Potassium 4.0 3.5 - 5.1 meq/L [facility] Chloride 108 (H) 98 - 107 meq/L [facility] CO2 15 (L) 22 - 29 meq/L [facility] BUN 80 (H) 7 - 21 mg/dL [facility] Creatinine 4.79 (H) 0.57 - 1.25 mg/dL [facility] Glucose 84 70 - 105 mg/dL [facility] Calcium 8.9 8.4 - 10.2 mg/dL [facility] EGFR 12Comment: ESTIMATED GFR IS mL/min/1.73 sq m [facility] NOT ACCURATE CREATININE [facility] CLEARANCE IN PREDICTING GLOMERULAR FILTRATION RATE. ESTIMATED GFR IS NOT APPLICABLE FOR DIALYSIS PATIENTS. Specimen Blood Performing Organization Address City/[facility] Phone Number [facility] [address] [place] [address] [phone] [place] ECG 12 lead (03/01/2018 10:20 AM CDT) Specimen Narrative Performed At Ventricular Rate 62 BPM [facility] Atrial Rate 62 BPM P-R Interval 178 ms QRS Duration 96 ms Q-T Interval 452 ms QTC Calculation(Bazett) 458 ms P [place] 66 degrees R [place] -24 degrees T [place] 140 degrees Normal sinus rhythm Possible Left [...] 452 ms QTC Calculation(Bazett) 458 ms P [place] 66 degrees R [place] -24 degrees T [place] 140 degrees Normal sinus rhythm Possible Left [...] Address City/State/Zipcode Phone Number GE MUSE after 11/13/2017 Insurance Payer Benefit Plan / Group Subscriber ID Type Phone Address MEDICARE MEDICARE A B xxxxxxxxxx Medicare MEDICAID [place]ICA[place] xxxxxxxxx Medicaid Advance Directives For more information, please contact:[address] [phone] Code Status Date Activated Date Inactivated Comments [...]
[2018-11-14] MEDS ORDERED: MORPHINE 4 MG/ML SYR ONE (23:26)
--- NOTE | 2018-11-14 23:55 | ER ---
Nurse's Notes [facility] Name: Blaise Quarles Age: 78 yrs Sex: Male : 1940 Arrival Date: 11/14/2018 Time: 22:44 Bed 2 Private MD: Diagnosis: Chest pain, unspecified;Unspecified abdominal pain Presentation: 11/14 22:59 Presenting complaint: Patient states: Chest pain and abd pain for one day. Transition la1 of care: patient was not received from another setting of care. Onset of symptoms was November 14, 2018. Risk Assessment: Do you want to hurt yourself or someone else? Patient reports no desire to harm self or others. Initial Sepsis Screen: Does the patient meet any 2 criteria? No. Patient's initial sepsis screen is negative. Does the patient have a suspected source of infection? No. Patient's initial sepsis screen is negative. Care prior to arrival: None. 22:59 Method Of Arrival: Wheelchair la1 22:59 Acuity: SARATH 3 la1 Historical: - Allergies: 23:00 Aspirin; la1 - PMHx: 23:00 Anemia; CAD; cardiomegaly; CHF; chronic renal disease; Cirrhosis; Diabetes - IDDM; la1 Dialysis; High Cholesterol; Hypertension; Myocardial infarction; pleural effusion; pulmonary nodule; Visually impared; - Immunization history:: Adult Immunizations up to date. - Social history:: Smoking status: Patient/guardian denies using tobacco. - Ebola Screening: : No symptoms or risks identified at this time. - Family history:: not pertinent. - Hospitalizations: : No recent hospitalization is reported. Screenin:57 Abuse screen: Denies threats or abuse. Denies injuries from another. Nutritional aa1 screening: No deficits noted. Tuberculosis screening: No symptoms or risk factors identified. Fall Risk None identified. Assessment: 22:57 General: Appears in no apparent distress. uncomfortable, cachectic, Behavior is calm, aa1 cooperative, appropriate for age. Pain: Complains of pain in chest and abdomen Pain does not radiate. Pain began 1 day ago. Is continuous. Neuro: Level of Consciousness is awake, alert, obeys commands. Cardiovascular: Reports chest pain, Denies diaphoresis, nausea, palpitations, Heart tones S1 S2 present Capillary refill < 3 seconds Patient's skin is warm and dry. Rhythm is regular Chest pain is described as diffuse. Respiratory: Airway is patent Respiratory effort is even, unlabored, Respiratory pattern is regular, symmetrical. GI: Abdomen is non-distended, Bowel sounds present X 4 quads. Reports upper abdominal pain, Patient currently denies constipation, diarrhea, nausea, vomiting. : No signs and/or symptoms were reported regarding the genitourinary system. EENT: No signs and/or symptoms were reported regarding the EENT system. Derm: Skin is intact, is thin, Skin is pink, warm \T\ dry. 23:05 Reassessment: Family reports they always have a difficult time obtaining pt's blood and aa1 pt will not allow any additional attempts to obtain specimens. Pt reports he just wants medicine to take the pain away and does not want any tests; Dr. Vigil notified. 23:50 Reassessment: Patient appears in no apparent distress at this time. Patient and/or aa1 family updated on plan of care and expected duration. Pain level reassessed. Patient is alert, oriented x 3, equal unlabored respirations, skin warm/dry/pink. Pt reports he feels much better after morphine injection and is ready to go home. Pt still states he does not want to have any tests performed while he is here. Dr. Vigil at bedside and per his orders, pt to sign out AMA Patient denies pain at this time. Patient states feeling better. Patient states symptoms have improved. Vital Signs: 23:00 BP 163 / 66; Pulse 63; Resp 18; Temp 98.7; Pulse Ox 98% on R/A; Weight 54.43 kg; la1 23:23 BP 156 / 63; Pulse 60; Resp 18; Pulse Ox 100% on 2 lpm NC; aa1 ED Course: 22:44 Patient arrived in ED. es 22:50 Morgan Vigil MD is Attending Physician. rn 22:50 Oxygen administration via nasal cannula \T\ 2L/min. aa1 22:57 Patient has correct armband on for positive identification. Placed in gown. Bed in low aa1 position. Call light in reach. residential monitor on. Pulse ox on. NIBP on. Warm blanket given. 22:59 Triage completed. la1 22:59 EKG done, by ED staff, reviewed by Morgan Vigil MD. aa1 23:00 Arm band placed on right wrist. la1 23:00 Missed attempt(s): 20 gauge in right forearm. aa1 23:15 Radha Michael, RN is Primary Nurse. aa1 23:50 No provider procedures requiring assistance completed. Patient did not have IV access aa1 during this emergency room visit. Administered Medications: 23:16 Drug: morphine 4 mg Route: IM; Site: right deltoid; aa1 11/15 00:04 Follow up: Response: No adverse reaction; Pain is decreased aa1 Outcome: 11/14 23:50 AMA AMA form signed aa1 Condition: stable Discharge instructions given to patient, family, Instructed on discharge instructions. 11/15 00:06 Patient left the ED. aa1 Signatures: Radha Michael, RN RN aa1 Sandra Li Roman, MD MD rn Attema, Lee, RN RN la1
--- NOTE | 2018-11-14 23:55 | EDPHYS ---
Physician Documentation [facility] Name: Blaise Quarles Age: 78 yrs Sex: Male : 1940 Arrival Date: 11/14/2018 Time: 22:44 Bed 2 Private MD: ED Physician Morgan Vigil HPI: 11/14 23:33 This 78 yrs old Male presents to ER via Wheelchair with complaints of Chest rn Pain, Abdominal Pain. 23:33 The patient or guardian reports chest pain that is located primarily in the anterior rn aspect of left upper chest. Onset: yesterday. The pain radiates to abdomen. Associated signs and symptoms: Pertinent positives: abdominal pain, Pertinent negatives: cough, lower extremity pain, palpitations, recent travel, syncope, vomiting. The chest pain is described as aching. Duration: The patient or guardian reports a single episode, that is still ongoing. Modifying factors: The symptoms are alleviated by nothing. the symptoms are aggravated by nothing. Severity of pain: At its worst the pain was moderate in the emergency department the pain is unchanged. The patient has experienced similar episodes in the past. Reports has been having intermittent chest and abd pain for 3 months, has been seen here multiple times for this, leaves AMA, is here today requesting pain medication but doesn't want to be stuck/IV/CT.. Historical: - Allergies: 23:00 Aspirin; la1 - PMHx: 23:00 Anemia; CAD; cardiomegaly; CHF; chronic renal disease; Cirrhosis; Diabetes - IDDM; la1 Dialysis; High Cholesterol; Hypertension; Myocardial infarction; pleural effusion; pulmonary nodule; Visually impared; - Immunization history:: Adult Immunizations up to date. - Social history:: Smoking status: Patient/guardian denies using tobacco. - Ebola Screening: : No symptoms or risks identified at this time. - Family history:: not pertinent. - Hospitalizations: : No recent hospitalization is reported. ROS: 23:33 Constitutional: Negative for fever, chills, and weight loss, Eyes: Negative for injury, rn pain, redness, and discharge, Neck: Negative for injury, pain, and swelling, Cardiovascular: + chest pain Respiratory: Negative for wheezing, and pleuritic chest pain, Abdomen/GI: + left abd pain MS/Extremity: Negative for injury and deformity, Skin: Negative for injury, rash, and discoloration, Neuro: Negative for headache, weakness, numbness, tingling, and seizure. Exam: 23:33 Constitutional: This is a well developed, well nourished patient who is awake, alert, rn appears uncomfortable Head/Face: Normocephalic, atraumatic. Eyes: Periorbital areas with no swelling, redness, or edema. ENT: MMM, no stridor Cardiovascular: Regular rate and rhythm. No pulse deficits. Respiratory: + mild tachypnea, + bilateral crackles Abdomen/GI: soft, mild Left abd tenderness, no rebound MS/ Extremity: Pulses equal, no cyanosis. Neurovascular intact. Full, normal range of motion. Equal circumference. Neuro: Awake and alert, GCS 15, oriented to person, place, time, and situation. Cranial nerves II-XII grossly intact. Motor strength 5/5 in all extremities. Sensory grossly intact. Cerebellar exam normal. Normal gait. Vital Signs: 23:00 BP 163 / 66; Pulse 63; Resp 18; Temp 98.7; Pulse Ox 98% on R/A; Weight 54.43 kg; la1 23:23 BP 156 / 63; Pulse 60; Resp 18; Pulse Ox 100% on 2 lpm NC; aa1 MDM: 22:50 Patient medically screened. rn 23:52 Differential diagnosis: acute myocardial infarction, acute pericarditis, anxiety, rn coronary artery disease chest wall pain, esophagitis, gastritis, gastroesophageal reflux disease (GERD), pancreatitis, pericarditis, pleurisy, pneumonia, pneumothorax, stable angina, thoracic aortic disection, unstable angina. Data reviewed: vital signs, nurses notes. Refusal of service: The patient/guardian displays adequate decision making capability and despite a detailed discussion of alternatives, benefits, risks, and consequences refuses: Admission to the hospital for further work-up and treatment, CT Scan, all lab tests, Medications, all X-rays. ED course: Spoke at length with patient and on 2 separate occasions, in vietnamese as well as using family members to translate, patient does not want anything done, wanted pain meds, pain resolved, and requests to go home, states will come back if pain returns/worsens. . 11/14 22:56 Order name: EKG; Complete Time: 22:57 rn 11/14 22:56 Order name: Cardiac monitoring; Complete Time: 23:16 rn 11/14 22:56 Order name: EKG - Nurse/Tech; Complete Time: 23:17 rn 11/14 22:56 Order name: O2 Per Protocol; Complete Time: 23:17 rn 11/14 22:56 Order name: O2 Sat Monitoring; Complete Time: 23:17 rn Administered Medications: 23:16 Drug: morphine 4 mg Route: IM; Site: right deltoid; aa1 11/15 00:04 Follow up: Response: No adverse reaction; Pain is decreased aa1 Disposition: 11/14/18 23:54 Patient has left against medical advice. Impression: Chest pain, unspecified, Unspecified abdominal pain. - Patients states they are going to Home. - Condition is Stable. - Discharge Instructions: Abdominal Pain, Adult, Nonspecific Chest Pain. Follow up: Private Physician; When: Today; Reason: Recheck today's complaints, Re-evaluation by your physician. - Problem is chronic. - Symptoms have improved. Signatures: Dispatcher [employer] EDMS Radha Michael RN RN aa1 Morgan Vigil MD MD rn Attema, Lee, RN RN la1 Corrections: (The following items were deleted from the chart) 11/14 23:17 22:56 IV Saline Lock ordered. kristie ortega 23: 22:56 Labs collected and sent ordered. kristie ortega 11/15 00:06 11/14 23:54 11/14/2018 23:54 Patients has left against medical advice. Impression: aa1 Chest pain, unspecified; Unspecified abdominal pain. Patient states they are going to Home. Condition is Stable. Follow up: Private Physician; When: Today; Reason: Recheck today's complaints, Re-evaluation by your physician. Problem is chronic. Symptoms have improved. rn
[2018-11-15 01:03] VITALS: TEMP 98.7
[2018-11-15 01:05] VITALS: BP 156/63; O2SAT 100
--- NOTE | 2018-11-15 08:46 | EKG ---
Test Date: 2018-11-14 Test Time: 23:03:37 Technology Specialist: HUMBERTO MEASUREMENT RESULTS: Intervals: Rate: 62 IN: 170 QRSD: 94 QT: 436 QTc: 442 [place]: P: 55 IN: 170 QRS: -36 T: 128 INTERPRETIVE STATEMENTS: Normal sinus rhythm Possible Left atrial enlargement Left axis deviation Septal infarct, age undetermined Inferior infarct, age undetermined T wave abnormality, consider lateral ischemia Abnormal ECG Compared to ECG 11/04/2018 10:57:44 Myocardial infarct finding still present T-wave abnormality still present Electronically Signed On 11-15-18 08:45:40 CDT by Raheel Zeng
== END 2018-11-15 00:06 | disposition left against medical advice (07) ==
LOC: ER 22:40
DX: R07.9 Chest pain, unspecified (principal); R10.9 Unspecified abdominal pain; I13.2 Hypertensive heart and chronic kidney disease with heart failure and with stage 5 chronic kidney disease, or end stage renal disease; I50.9 Heart failure, unspecified; N18.6 End stage renal disease; E11.22 Type 2 diabetes mellitus with diabetic chronic kidney disease; Z99.2 Dependence on renal dialysis; Z79.4 Long term (current) use of insulin; D64.9 Anemia, unspecified; I25.2 Old myocardial infarction; I25.10 Atherosclerotic heart disease of native coronary artery without angina pectoris; Z88.6 Allergy status to analgesic agent
CPT/HCPCS: 93005; 96372; 99284

== ENCOUNTER 2018-11-19 18:35 | Emergency (ER) | payer OTHER ==
--- OUTSIDE RECORDS SUMMARY | 2018-11-19 18:37 | XMS REPORT | Clinical Summary ---
:1940 Author Organization [facility] Address [address] [place] [address] Care Team Providers Name Role Phone Moo [...] 03/01/2018 Orders Only General Internal Medicine after 11/18/2017 Family History Medical History Relation Name Comments [...] 452 ms QTC Calculation(Bazett) 458 ms P [place] 66 degrees R [place] -24 degrees T [place] 140 degrees Normal sinus rhythm Possible Left [...] MICROSCOPIC STAT 03/01/2018 10:19 AM CDT after 11/18/2017 Results Urinalysis w/Microscopic (03/03/2018 11:08 AM CDT)Only the most recent of2 resultswithin the time period is included. Color, UA Yellow [facility] Clarity, UA Hazy [facility] Specific [place], UA 1.012 1.001 - 1.035 [facility] pH, UA 6.0 5.0 - 8.0 [facility] Protein, UA 600 mg/dL (A) Negative [facility] Glucose, UA 100 mg/dL (A) Negative [facility] Ketones, UA Negative Negative [facility] Bilirubin, UA Negative Negative [facility] Blood, UA Moderate (A) Negative [facility] Nitrite, UA Negative Negative [facility] Leukocytes, UA Small (A) Negative [facility] Urobilinogen, UA 0.2 0.2 - 1.0 mg/dL [facility] RBC, UA 27 /HPF [facility] WBC, UA 12 /HPF [facility] Bacteria, UA Occasional [facility] Mucus Rare [facility] Squam Epithel, UA <1 /HPF [facility] Hyaline Casts, UA 2 /LPF [facility] Granular Casts, UA 5 /LPF [facility] Specimen Source Urine, Yusuf [facility] Specimen Urine Performing Organization Address [facility] Phone Number [facility] [address], [place] [address] [phone] [place] Urine culture (03/03/2018 11:08 AM CDT) Result PSEUDOMONAS AERUGINOSA (A) [facility] Specimen Urine Organism Antibiotic Method Susceptibility Pseudomonas [...] aeruginosa Tobramycin <=2: Susceptible Performing Organization Address [facility] Phone Number [address] [id number] [phone] [place] ED ECG Interpretation (03/02/2018 7:12 AM CDT) Narrative Performed At Macrina Gómez MD 03/02/20187:12 AM ECG/EKG Interpretation Date/Time: 03/01/2018 10:25 AM Performed by: MACRINA GÓMEZ. Authorized by: MACRINA GÓMEZ The ECG was interpreted by ED physician. The ECG is interpreted as sinus rhythm. Rate is normal rate. Conduction: conduction normal. ST segments abnormal. T waves abnormal. [place] is normal. Other findings: no other findings. Clinical Impression: non-specific ECG and abnormal ECG CT abdomen pelvis without contrast (03/01/2018 1:46 PM CDT) Specimen Narrative Performed At FINAL REPORT [place] [facility] ABDOMINAL AND PELVIS CT DATED 03/01/2018 [...] MD Report Verified Date/Time:03/01/2018 15:15:27 Reading Location: [facility] B1 C013Y CT Body Reading Room [...] Report Verified Date/Time: 03/01/2018 15:15:27 Reading Location: [facility] C013Y CT Body Reading Room Performing Organization Address City/State/Zipcode Phone Number GE RIS CBC with platelet count + automated diff (03/01/2018 10:29 AM CDT) WBC 5.6 3.5 - 10.5 K/L [facility] RBC 3.10 (L) 4.63 - 6.08 M/L [facility] Hemoglobin 9.8 (L) 13.7 - 17.5 GM/DL [facility] Hematocrit 29.7 (L) 40.1 - 51.0 % [facility] MCV 95.8 (H) 79.0 - 92.2 fL [facility] MCH 31.6 25.7 - 32.2 pg [facility] MCHC 33.0 32.3 - 36.5 GM/DL [facility] RDW 14.0 11.6 - 14.4 % [facility] Platelets 171 150 - 450 K/CU MM [facility] MPV 11.1 9.4 - 12.4 fL [facility] nRBC 0 0 - 0 /100 WBC [facility] % Neutros 69 % [facility] % Lymphs 16 % [facility] % Monos 10 % [facility] % Eos 4 % [facility] % Baso 1 % [facility] # Neutros 3.88 1.78 - 5.38 K/L [facility] # Lymphs 0.88 (L) 1.32 - 3.57 K/L [facility] # Monos 0.56 0.30 - 0.82 K/L [facility] # Eos 0.25 0.04 - 0.54 K/L [facility] # Baso 0.03 0.01 - 0.08 K/L [facility] Immature Granulocytes-Relative 0 0 - 1 % [facility] Specimen Blood Performing Organization Address City/[facility]/Zipcode Phone Number [address] [address] [phone] CENTER Lipase (03/01/2018 10:29 AM CDT) Lipase 61 8 - 78 U/L [facility] Specimen Blood Performing Organization Address City/[facility] Phone Number [address] [address] [phone] [place] Amylase (03/01/2018 10:29 AM CDT) Amylase 113 25 - 125 U/L [facility] Specimen Blood Performing Organization Address City/[facility]/Zipcode Phone Number [address] [phone] [place] Hepatic function panel (03/01/2018 10:29 AM CDT) Protein, Total 6.8 6.0 - 8.3 gm/dL [facility] Albumin 3.5 3.5 - 5.0 g/dL [facility] Total Bilirubin 0.4 0.2 - 1.2 mg/dL [facility] Bilirubin, Direct 0.2 0.1 - 0.5 mg/dL [facility] Alkaline Phosphatase 78 40 - 150 U/L [facility] AST 20 5 - 34 U/L [facility] ALT 21 6 - 55 U/L [facility] Specimen Blood Performing Organization Address City/State/Zipcode Phone Number [facility] [address] [place] [address] CENTER Basic Metabolic Panel (03/01/2018 10:29 AM CDT) Sodium 136 136 - 145 meq/L [facility] Potassium 4.0 3.5 - 5.1 meq/L [facility] Chloride 108 (H) 98 - 107 meq/L [facility] CO2 15 (L) 22 - 29 meq/L [facility] BUN 80 (H) 7 - 21 mg/dL [facility] Creatinine 4.79 (H) 0.57 - 1.25 mg/dL [facility] Glucose 84 70 - 105 mg/dL [facility] Calcium 8.9 8.4 - 10.2 mg/dL [facility] EGFR 12Comment: ESTIMATED GFR IS mL/min/1.73 sq m [facility] NOT ACCURATE CREATININE [facility] CLEARANCE IN PREDICTING GLOMERULAR FILTRATION RATE. ESTIMATED GFR IS NOT APPLICABLE FOR DIALYSIS PATIENTS. Specimen Blood Performing Organization Address City/[facility] Phone Number [facility] [address] [place] [address] [phone] [place] ECG 12 lead (03/01/2018 10:20 AM CDT) Specimen Narrative Performed At Ventricular Rate 62 BPM [facility] MUSE Atrial Rate 62 BPM P-R Interval 178 ms QRS Duration 96 ms Q-T Interval 452 ms QTC Calculation(Bazett) 458 ms P [place] 66 degrees R [place] -24 degrees T [place] 140 degrees Normal sinus rhythm Possible Left [...] 452 ms QTC Calculation(Bazett) 458 ms P [place] 66 degrees R [place] -24 degrees T [place] 140 degrees Normal sinus rhythm Possible Left [...] Address City/State/Zipcode Phone Number GE MUSE after 11/18/2017 Insurance Payer Benefit Plan / Group Subscriber ID Type Phone Address MEDICARE MEDICARE A B xxxxxxxxxx Medicare MEDICAID [place]ICA[place] xxxxxxxxx Medicaid Advance Directives For more information, please contact:[address] [phone] Code Status Date Activated Date Inactivated Comments [...]
--- OUTSIDE RECORDS SUMMARY | 2018-11-19 18:37 | XMS REPORT ---
:1940 [facility] Address [address] [place] [address] Dr. Manley [address] [place] [id number] Care Team Providers Name Role Phone LAZ RODNEY DAVID Unavailable Unavailable LAYLA GÓMEZ Unavailable Unavailable Problems This patient has no known problems. Allergies, Adverse Reactions, Alerts This patient has no known allergies or adverse reactions. Medications This patient has no known medications. Results Test Description Test Time Test Comments Text Results Atomic Results Result Comments URINE CULTURE 2018-03-06 10:04:00 Test Item Value Reference Range Comments CULTURE (BEAKER) (test PSEUDOMONAS 70-79,000 col/mL nuct=5716) AERUGINOSA Pseudomonas aeruginosa Amikacin (test code=1) Susceptible [...] code=25) Resistant <0 or >4 URINALYSIS W/ [id number] 12:06:00 Test Item Value Reference Range Comments COLOR (BEAKER) (test fhfd=458) Yellow CLARITY (BEAKER) (test qgiw=940) Hazy SPECIFIC GRAVITY UA (BEAKER) (test ihnz=746) 1.012 1.001-1.035 PH UA (BEAKER) (test pdul=701) 6.0 5.0-8.0 PROTEIN UA (BEAKER) (test lpzl=204) 600 mg/dL Negative GLUCOSE UA (BEAKER) (test neua=519) 100 mg/dL Negative KETONES UA (BEAKER) (test dizk=630) Negative Negative BILIRUBIN UA (BEAKER) (test pbdf=915) Negative Negative BLOOD UA (BEAKER) (test symf=686) Moderate Negative NITRITE UA (BEAKER) (test cmbv=443) Negative Negative LEUKOCYTE ESTERASE UA (BEAKER) (test wdhv=275) Small Negative UROBILINOGEN UA (BEAKER) (test iopu=387) 0.2 mg/dL 0.2-1.0 RBC UA (BEAKER) (test wdlu=332) 27 /HPF WBC UA (BEAKER) (test lozh=985) 12 /HPF BACTERIA (BEAKER) (test rimp=179) Occasional MUCUS (BEAKER) (test aqad=8313) Rare SQUAMOUS EPITHELIAL (BEAKER) (test bcpj=852) < /HPF HYALINE CASTS (BEAKER) (test gzix=199) 2 /LPF GRANULAR CASTS (BEAKER) (test qlhf=810) 5 /LPF SOURCE(BEAKER) (test memo=0368) Urine, Yusuf CT, [id number] 15:15:00Reason for exam:->ABDOMINAL PAINWhat is the patient's [...] Verified Date/ Time: 03/01/2018 15:15:27 Reading Location: [address] Body Reading Room BASI METABOLIC [id number] 11:04:00 Test Item Value Reference Range Comments SODIUM (BEAKER) (test 136 meq/L 136-145 okxw=293) POTASSIUM (BEAKER) (test 4.0 meq/L 3.5-5.1 lxjq=647) CHLORIDE (BEAKER) (test 108 meq/L 98-107 zolm=514) CO2 (BEAKER) (test 15 meq/L 22-29 wjjv=664) BLOOD UREA NITROGEN 80 mg/dL 7-21 (BEAKER) (test cqco=523) CREATININE (BEAKER) (test 4.79 mg/dL 0.57-1.25 rzlb=275) GLUCOSE RANDOM (BEAKER) 84 mg/dL 70-105 (test qutv=949) CALCIUM (BEAKER) (test 8.9 mg/dL 8.4-10.2 vsbp=814) EGFR (BEAKER) (test 12 mL/min/1.73 sq m ESTIMATED GFR IS NOT bnvz=1928) ACCURATE CREATININE CLEARANCE IN PREDICTING GLOMERULAR FILTRATION RATE. ESTIMATED GFR IS NOT APPLICABLE FOR DIALYSIS PATIENTS. [id number] 11:02:00 Test Item Value Reference Range Comments LIPASE (BEAKER) (test oura=568) 61 U/L 8-78 [id number] 11:02:00 Test Item Value Reference Range Comments AMYLASE (BEAKER) (test rozs=905) 113 U/L 25-125 HEPATIC FUNCTION [id number] 11:02:00 Test Item Value Reference Range Comments TOTAL PROTEIN (BEAKER) (test azxd=401) 6.8 gm/dL 6.0-8.3 ALBUMIN (BEAKER) (test dwkt=0639) 3.5 g/dL 3.5-5.0 BILIRUBIN TOTAL (BEAKER) (test rvwf=297) 0.4 mg/dL 0.2-1.2 BILIRUBIN DIRECT (BEAKER) (test czlo=941) 0.2 mg/dL 0.1-0.5 ALKALINE PHOSPHATASE (BEAKER) (test lqhh=097) 78 U/L 40-150 AST (SGOT) (BEAKER) (test qkue=443) 20 U/L 5-34 ALT (SGPT) (BEAKER) (test naar=604) 21 U/L 6-55 URINALYSIS W/ [id number] 11:01:00 Test Item Value Reference Range Comments COLOR (BEAKER) (test pvww=952) Light Yellow CLARITY (BEAKER) (test uaio=148) Clear SPECIFIC GRAVITY UA (BEAKER) (test pfwq=043) 1.006 1.001-1.035 PH UA (BEAKER) (test kdlu=778) 6.0 5.0-8.0 PROTEIN UA (BEAKER) (test vzkv=223) 300 mg/dL Negative GLUCOSE UA (BEAKER) (test lval=346) 30 mg/dL Negative KETONES UA (BEAKER) (test odyg=586) Negative Negative BILIRUBIN UA (BEAKER) (test ogra=743) Negative Negative BLOOD UA (BEAKER) (test sfgf=397) Trace Negative NITRITE UA (BEAKER) (test xcva=357) Negative Negative LEUKOCYTE ESTERASE UA (BEAKER) (test eeqt=704) Negative Negative UROBILINOGEN UA (BEAKER) (test wiyi=974) 0.2 mg/dL 0.2-1.0 RBC UA (BEAKER) (test mfxw=677) < /HPF WBC UA (BEAKER) (test fvmc=241) < /HPF BACTERIA (BEAKER) (test xhsh=922) Rare MUCUS (BEAKER) (test lqlx=2523) Rare SOURCE(BEAKER) (test ecad=8386) Urine, Voided CBC W/PLT COUNT & AUTO [id number] 10:49:00 Test Item Value Reference Range Comments WHITE BLOOD CELL COUNT (BEAKER) (test yyxq=869) 5.6 K/ L 3.5-10.5 RED BLOOD CELL COUNT (BEAKER) (test cbmt=790) 3.10 M/ L 4.63-6.08 HEMOGLOBIN (BEAKER) (test uhqk=286) 9.8 GM/DL 13.7-17.5 HEMATOCRIT (BEAKER) (test cgpu=518) 29.7 % 40.1-51.0 MEAN CORPUSCULAR VOLUME (BEAKER) (test rspq=898) 95.8 fL 79.0-92.2 MEAN CORPUSCULAR HEMOGLOBIN (BEAKER) (test 31.6 pg 25.7-32.2 mwkt=257) MEAN CORPUSCULAR HEMOGLOBIN CONC (BEAKER) (test 33.0 GM/DL 32.3-36.5 bokr=580) RED CELL DISTRIBUTION WIDTH (BEAKER) (test 14.0 % 11.6-14.4 tzfh=158) PLATELET COUNT (BEAKER) (test lmla=111) 171 K/CU MM 150-450 MEAN PLATELET VOLUME (BEAKER) (test uomx=213) 11.1 fL 9.4-12.4 NUCLEATED RED BLOOD CELLS (BEAKER) (test 0 /100 WBC 0-0 ujvw=066) NEUTROPHILS RELATIVE PERCENT (BEAKER) (test 69 % nivl=407) LYMPHOCYTES RELATIVE PERCENT (BEAKER) (test 16 % dovs=685) MONOCYTES RELATIVE PERCENT (BEAKER) (test 10 % eors=611) EOSINOPHILS RELATIVE PERCENT (BEAKER) (test 4 % gpoc=822) BASOPHILS RELATIVE PERCENT (BEAKER) (test 1 % ivbr=052) NEUTROPHILS ABSOLUTE COUNT (BEAKER) (test 3.88 K/ L 1.78-5.38 jnvd=044) LYMPHOCYTES ABSOLUTE COUNT (BEAKER) (test 0.88 K/ L 1.32-3.57 yvzm=955) MONOCYTES ABSOLUTE COUNT (BEAKER) (test 0.56 K/ L 0.30-0.82 vohx=304) EOSINOPHILS ABSOLUTE COUNT (BEAKER) (test 0.25 K/ L 0.04-0.54 qkns=560) BASOPHILS ABSOLUTE COUNT (BEAKER) (test 0.03 K/ L 0.01-0.08 miqi=291) IMMATURE GRANULOCYTES-RELATIVE PERCENT (BEAKER) 0 % 0-1 (test oiuj=7190)
[2018-11-19] MEDS ORDERED: PROMETHAZINE 25 MG/ML VIAL ONE (20:46)
[2018-11-19] MEDS ORDERED: MORPHINE 4 MG/ML SYR ONE (20:47)
--- NOTE | 2018-11-19 20:53 | EDPHYS ---
Physician Documentation [facility] Name: Blaise Quarles Age: 78 yrs Sex: Male : 1940 Arrival Date: 11/19/2018 Time: 18:36 Bed 8 Private MD: out of town, doctor ED Physician Ron Viveros HPI: 11/19 20:47 This 78 yrs old Male presents to ER via Wheelchair with complaints of Chest yoni Pain. 20:47 The patient or guardian reports chest pain that is located primarily in the anterior [facility] chest wall. 20:49 Onset: 2 day(s) ago. The patient presents with abdominal pain in the upper abdomen, in [facility] the lower abdomen. Onset: The symptoms/episode began/occurred 2 day(s) ago. The pain does not radiate. Associated signs and symptoms: none. Modifying factors: The symptoms are alleviated by nothing. The chest pain is described as aching, burning. Historical: - Allergies: 18:49 Aspirin; tw2 - Home Meds: 18:49 trazodone 100 mg Oral tab 1 tab nightly [Active]; Risperdal 0.5 mg Oral tab 1 tabs 2 tw2 times per day [Active]; nitroglycerin 0.4 mg SL subl 1 tab [Active]; clonazepam 1 mg Oral tab 1 tab 2 times per day [Active]; amlodipine 10 mg tab 1 tab once daily [Active]; - PMHx: 18:49 cardiomegaly; CHF; chronic renal disease; Cirrhosis; Diabetes - IDDM; Dialysis; High tw2 Cholesterol; Hypertension; Myocardial infarction; pleural effusion; pulmonary nodule; Visually impared; CAD; Anemia; - Immunization history:: Adult Immunizations. - Social history:: Smoking status: . - Ebola Screening: : Patient denies travel to an Ebola-affected area in the 21 days before illness onset. - Family history:: not pertinent. ROS: 20:49 Constitutional: Negative for fever, chills, and weight loss, Eyes: Negative for injury, yoni pain, redness, and discharge, ENT: Negative for injury, pain, and discharge, Neck: Negative for injury, pain, and swelling, Respiratory: Negative for shortness of breath, cough, wheezing, and pleuritic chest pain, Back: Negative for injury and pain, : Negative for injury, bleeding, discharge, and swelling, MS/Extremity: Negative for injury and deformity, Skin: Negative for injury, rash, and discoloration, Neuro: Negative for headache, weakness, numbness, tingling, and seizure, Psych: Negative for depression, anxiety, suicide ideation, homicidal ideation, and hallucinations, Allergy/Immunology: Negative for hives, rash, and allergies, Endocrine: Negative for neck swelling, polydipsia, polyuria, polyphagia, and marked weight changes, Hematologic/Lymphatic: Negative for swollen nodes, abnormal bleeding, and unusual bruising. 20:49 Cardiovascular: Positive for chest pain, of the chest. 20:49 Abdomen/GI: Positive for abdominal pain, of the right upper quadrant, left upper quadrant, right lower quadrant and left lower quadrant. Exam: 20:49 Constitutional: This is a well developed, well nourished patient who is awake, alert, yoni and in no acute distress. Head/Face: Normocephalic, atraumatic. Eyes: Pupils equal round and reactive to light, extra-ocular motions intact. Lids and lashes normal. Conjunctiva and sclera are non-icteric and not injected. Cornea within normal limits. Periorbital areas with no swelling, redness, or edema. ENT: Nares patent. No nasal discharge, no septal abnormalities noted. Tympanic membranes are normal and external auditory canals are clear. Oropharynx with no redness, swelling, or masses, exudates, or evidence of obstruction, uvula midline. Mucous membranes moist. Neck: Trachea midline, no thyromegaly or masses palpated, and no cervical lymphadenopathy. Supple, full range of motion without nuchal rigidity, or vertebral point tenderness. No Meningismus. Chest/axilla: Normal chest wall appearance and motion. Nontender with no deformity. No lesions are appreciated. Cardiovascular: Regular rate and rhythm with a normal S1 and S2. No gallops, murmurs, or rubs. Normal PMI, no JVD. No pulse deficits. Respiratory: Lungs have equal breath sounds bilaterally, clear to auscultation and percussion. No rales, rhonchi or wheezes noted. No increased work of breathing, no retractions or nasal flaring. Back: No spinal tenderness. No costovertebral tenderness. Full range of motion. Male : Normal genitalia with no discharge or lesions. Skin: Warm, dry with normal turgor. Normal color with no rashes, no lesions, and no evidence of cellulitis. MS/ Extremity: Pulses equal, no cyanosis. Neurovascular intact. Full, normal range of motion. Neuro: Awake and alert, GCS 15, oriented to person, place, time, and situation. Cranial nerves II-XII grossly intact. Motor strength 5/5 in all extremities. Sensory grossly intact. Cerebellar exam normal. Normal gait. Psych: Awake, alert, with orientation to person, place and time. Behavior, mood, and affect are within normal limits. 20:49 Abdomen/GI: Inspection: abdomen appears normal, Bowel sounds: normal, Palpation: mild abdominal tenderness, in the left upper quadrant and left lower quadrant, Liver: no appreciated palpable abnormalities, Hernia: not appreciated. Vital Signs: 18:42 BP 138 / 58; Pulse 58; Resp 18; Temp 97.2(TE); Pulse Ox 98% on 2 lpm NC; Weight 55.34 tw2 kg (R); Height 5 ft. 5 in. (165.10 cm); Pain 9/10; 20:33 BP 134 / 50; Pulse 60; Resp 20; Pulse Ox 93% on NC; oe 18:42 Body Mass Index 20.30 (55.34 kg, 165.10 cm) tw2 18:42 pt used 2L nc at home tw2 MDM: 19:39 Patient medically screened. yoni Administered Medications: 20:40 Drug: morphine 4 mg Route: IM; Site: left deltoid; aa1 21:05 Follow up: Response: No adverse reaction; Pain is decreased aa1 20:40 Drug: Phenergan 12.5 mg Route: IM; Site: left deltoid; aa1 21:05 Follow up: Response: No adverse reaction; Marked relief of symptoms aa1 Disposition: 11/19/18 20:52 Patient has left against medical advice. Impression: Abdominal tenderness, Other chest pain, End stage renal disease. - Patients states they are going to Home. - Condition is Undetermined. - Discharge Instructions: Abdominal Pain, Adult, Dialysis, Nonspecific Chest Pain, [id number], End-Stage Kidney Disease. Follow up: Private Physician; When: Upon discharge from the Emergency Department; Reason: Recheck today's complaints, Continuance of care, Re-evaluation by your physician. - Problem is new. - Symptoms are unchanged. Signatures: Radha Michael RN RN aa1 Ron Viveros MD MD cha Wise, Tara, RN RN tw2 Tamar Saldana RN RN tl2 Corrections: (The following items were deleted from the chart) 21:07 20:52 11/19/2018 20:52 Patients has left against medical advice. Impression: Abdominal aa1 tenderness; Other chest pain; End stage renal disease. Patient states they are going to Home. Condition is Undetermined. Follow up: Private Physician; When: Upon discharge from the Emergency Department; Reason: Recheck today's complaints, Continuance of care, Re-evaluation by your physician. Problem is new. Symptoms are unchanged. yoni
--- NOTE | 2018-11-19 20:53 | ER ---
Nurse's Notes [facility] Name: Blaise Quarles Age: 78 yrs Sex: Male : 1940 Arrival Date: 11/19/2018 Time: 18:36 Bed 8 Private MD: out of town, doctor Diagnosis: Abdominal tenderness;Other chest pain;End stage renal disease Presentation: 11/19 18:40 Presenting complaint: i am the son in law, he said that his chest pain started about 4 tw2 in the morning, he normally uses oxygen at home at 2L, he has dialysis tues, thurs, sat, he is also saying his stomach hurts. Transition of care: patient was not received from another setting of care. Onset of symptoms was November 19, 2018. Risk Assessment: Do you want to hurt yourself or someone else? Patient reports no desire to harm self or others. Initial Sepsis Screen: Does the patient meet any 2 criteria? No. Patient's initial sepsis screen is negative. Does the patient have a suspected source of infection? No. Patient's initial sepsis screen is negative. Note Fredy Mason to perform EKG at this time in [facility]. Care prior to arrival: None. 18:40 Method Of Arrival: Wheelchair tw2 18:40 Acuity: SARATH 2 tw2 Triage Assessment: 18:49 General: Appears well groomed, Behavior is calm, cooperative, appropriate for age. tw2 Pain: Complains of pain in chest. Cardiovascular: Reports chest pain. Historical: - Allergies: 18:49 Aspirin; tw2 - Home Meds: 18:49 trazodone 100 mg Oral tab 1 tab nightly [Active]; Risperdal 0.5 mg Oral tab 1 tabs 2 tw2 times per day [Active]; nitroglycerin 0.4 mg SL subl 1 tab [Active]; clonazepam 1 mg Oral tab 1 tab 2 times per day [Active]; amlodipine 10 mg tab 1 tab once daily [Active]; - PMHx: 18:49 cardiomegaly; CHF; chronic renal disease; Cirrhosis; Diabetes - IDDM; Dialysis; High tw2 Cholesterol; Hypertension; Myocardial infarction; pleural effusion; pulmonary nodule; Visually impared; CAD; Anemia; - Immunization history:: Adult Immunizations. - Social history:: Smoking status: . - Ebola Screening: : Patient denies travel to an Ebola-affected area in the 21 days before illness onset. - Family history:: not pertinent. Screenin:01 Abuse screen: Denies threats or abuse. Denies injuries from another. Nutritional aa1 screening: No deficits noted. Tuberculosis screening: No symptoms or risk factors identified. Fall Risk None identified. Assessment: 19:01 General: Appears in no apparent distress. uncomfortable, slender, Behavior is calm, aa1 cooperative, appropriate for age. Pain: Complains of pain in chest and abdomen Is episodic, chronic. Neuro: Level of Consciousness is awake, alert, obeys commands, Oriented to person, place, time, situation, Moves all extremities. Speech is normal. Cardiovascular: Reports chest pain, Heart tones S1 S2 present Capillary refill < 3 seconds Clubbing of nail beds is absent Patient's skin is warm and dry. Chest pain is described as vague, is located in anterior chest wall. Respiratory: Airway is patent Respiratory effort is even, unlabored, Respiratory pattern is regular, symmetrical. GI: Abdomen is non-distended, Abd is soft X 4 quads Reports upper abdominal pain, Patient currently denies constipation, diarrhea, nausea, vomiting. : No signs and/or symptoms were reported regarding the genitourinary system. EENT: No signs and/or symptoms were reported regarding the EENT system. Derm: Skin is intact, is healthy with good turgor, Skin is pink, warm \\T\\ dry. Musculoskeletal: Circulation, motion, and sensation intact. Capillary refill < 3 seconds. 19:05 Reassessment: Pt states, "I don't want an IV or any tests, I just want a pain shot.". aa1 19:39 Reassessment: Patient appears in no apparent distress at this time. Patient and/or aa1 family updated on plan of care and expected duration. Pain level reassessed. Patient is alert, oriented x 3, equal unlabored respirations, skin warm/dry/pink. Pt still awaiting initial assessment from provider. 20:26 Reassessment: Patient appears in no apparent distress at this time. Patient and/or aa1 family updated on plan of care and expected duration. Pain level reassessed. Patient is alert, oriented x 3, equal unlabored respirations, skin warm/dry/pink. MD at bedside for initial assessment. 21:06 Reassessment: Patient appears in no apparent distress at this time. Patient is alert, aa1 oriented x 3, equal unlabored respirations, skin warm/dry/pink. Pt to sign out AMA per MD orders. Reports pain improved after pain medication Patient states symptoms have improved. Vital Signs: 18:42 BP 138 / 58; Pulse 58; Resp 18; Temp 97.2(TE); Pulse Ox 98% on 2 lpm NC; Weight 55.34 tw2 kg (R); Height 5 ft. 5 in. (165.10 cm); Pain 9/10; 20:33 BP 134 / 50; Pulse 60; Resp 20; Pulse Ox 93% on NC; oe 18:42 Body Mass Index 20.30 (55.34 kg, 165.10 cm) tw2 18:42 pt used 2L nc at home tw2 ED Course: 18:36 Patient arrived in ED. mr 18:37 out of town, doctor is Private Physician. mr 18:42 Triage completed. tw2 18:45 Placed in gown. Bed in low position. Side rails up X2. Adult w/ patient. Cardiac tw2 monitor on. Pulse ox on. NIBP on. 18:49 Arm band placed on. EKG completed in triage. Results shown to MD. tw2 19:01 Oxygen administration via nasal cannula \\T\\ 3L/min. aa1 19:38 Radha Michael RN is Primary Nurse. aa1 19:39 Ron Viveros MD is Attending Physician. yoni 21:06 No provider procedures requiring assistance completed. Patient did not have IV access aa1 during this emergency room visit. Administered Medications: 20:40 Drug: morphine 4 mg Route: IM; Site: left deltoid; aa1 21:05 Follow up: Response: No adverse reaction; Pain is decreased aa1 20:40 Drug: Phenergan 12.5 mg Route: IM; Site: left deltoid; aa1 21:05 Follow up: Response: No adverse reaction; Marked relief of symptoms aa1 Outcome: 21:06 AMA AMA form signed aa1 21: Condition: stable 21:06 Discharge instructions given to patient, family, Demonstrated understanding of instructions. 21:07 Patient left the ED. aa1 Signatures: Radha Michael RN RN aa1 Ron Viveros MD MD cha Rivera, Mary mr Wise, Sonia, RN RN tw2 Holden Gomez
[2018-11-19 22:15] VITALS: TEMP 97.2
[2018-11-19 22:17] VITALS: BP 134/50; O2SAT 93
--- NOTE | 2018-11-21 08:49 | EKG ---
Test Date: 2018-11-19 Test Time: 18:42:46 Economic Consultant: ANA MEASUREMENT RESULTS: Intervals: Rate: 56 CT: 186 QRSD: 90 QT: 442 QTc: 426 [place]: P: 68 CT: 186 QRS: -25 T: 114 INTERPRETIVE STATEMENTS: Sinus bradycardia Anteroseptal infarct, age undetermined Abnormal ECG Compared to ECG 11/14/2018 23:03:37 Sinus rhythm no longer present Left-axis deviation no longer present T-wave abnormality no longer present Possible ischemia no longer present Myocardial infarct finding still present Electronically Signed On 11-21-18 08:47:30 CDT by Brandon Pérez
== END 2018-11-19 21:07 | disposition left against medical advice (07) ==
LOC: ER 18:35
DX: R07.9 Chest pain, unspecified (principal); R10.9 Unspecified abdominal pain; I13.2 Hypertensive heart and chronic kidney disease with heart failure and with stage 5 chronic kidney disease, or end stage renal disease; I50.9 Heart failure, unspecified; N18.6 End stage renal disease; E11.22 Type 2 diabetes mellitus with diabetic chronic kidney disease; Z99.2 Dependence on renal dialysis; Z79.4 Long term (current) use of insulin; Z88.6 Allergy status to analgesic agent; D64.9 Anemia, unspecified; I25.2 Old myocardial infarction; Z53.29 Procedure and treatment not carried out because of patient's decision for other reasons
CPT/HCPCS: 93005; 96372; 99284; J2550

== ENCOUNTER 2018-11-27 00:06 | Emergency (ER) | payer OTHER ==
--- OUTSIDE RECORDS SUMMARY | 2018-11-27 00:09 | XMS REPORT | Clinical Summary ---
:1940 Author Organization [facility] Address [address] [place] [address] Care Team Providers Name Role Phone Moo [...] 03/01/2018 Orders Only General Internal Medicine after 11/26/2017 Family History Medical History Relation Name Comments [...] 452 ms QTC Calculation(Bazett) 458 ms P Vader 66 degrees R Vader -24 degrees T Vader 140 degrees Normal sinus rhythm Possible Left [...] MICROSCOPIC STAT 03/01/2018 10:19 AM CDT after 11/26/2017 Results Urinalysis w/Microscopic (03/03/2018 11:08 AM CDT)Only the most recent of2 resultswithin the time period is included. Color, UA Yellow [facility] Clarity, UA Hazy [facility] Specific [place], UA 1.012 1.001 - 1.035 [facility] pH, UA 6.0 5.0 - 8.0 [facility] Protein, UA 600 mg/dL (A) Negative [facility] Glucose, UA 100 mg/dL (A) Negative [facility] Ketones, UA Negative Negative [facility] Bilirubin, UA Negative Negative [facility] Blood, UA Moderate (A) Negative [facility] Nitrite, UA Negative Negative [facility] Leukocytes, UA Small (A) Negative [facility] Urobilinogen, UA 0.2 0.2 - 1.0 mg/dL [facility] RBC, UA 27 /HPF [facility] WBC, UA 12 /HPF [facility] Bacteria, UA Occasional [facility] Mucus Rare [facility] Squam Epithel, UA <1 /HPF [facility] Hyaline Casts, UA 2 /LPF [facility] Granular Casts, UA 5 /LPF [facility] Specimen Source Urine, Yusuf [facility] Specimen Urine Performing Organization Address [facility] Phone Number [facility] [address] [place], [place] [phone] [place] Urine culture (03/03/2018 11:08 AM CDT) Result PSEUDOMONAS AERUGINOSA (A) [facility] Specimen Urine Organism Antibiotic Method Susceptibility [...] aeruginosa Tobramycin <=2: Susceptible Performing Organization Address [facility] [place] [place] Phone Number [address] [phone] [place] ED ECG Interpretation (03/02/2018 7:12 AM CDT) Narrative Performed At Macrina Gómez MD 03/02/20187:12 AM ECG/EKG Interpretation Date/Time: 03/01/2018 10:25 AM Performed by: MACRINA GÓMEZ. Authorized by: MACRINA GÓMEZ The ECG was interpreted by ED physician. The ECG is interpreted as sinus rhythm. Rate is normal rate. Conduction: conduction normal. ST segments abnormal. T waves abnormal. Vader is normal. Other findings: no other findings. Clinical Impression: non-specific ECG and abnormal ECG CT abdomen pelvis without contrast (03/01/2018 1:46 PM CDT) Specimen Narrative Performed At FINAL REPORT [employer] [facility] ABDOMINAL AND PELVIS CT DATED 03/01/2018 CLINICAL [...] MD Report Verified Date/Time:03/01/2018 15:15:27 Reading Location: [facility] B1 C013Y CT Body Reading Room Procedure [...] Report Verified Date/Time: 03/01/2018 15:15:27 Reading Location: [facility] C013Y CT Body Reading Room Performing Organization Address City/State/Zipcode Phone Number GE RIS CBC with platelet count + automated diff (03/01/2018 10:29 AM CDT) WBC 5.6 3.5 - 10.5 K/L [facility] RBC 3.10 (L) 4.63 - 6.08 M/L [facility] Hemoglobin 9.8 (L) 13.7 - 17.5 GM/DL [facility] Hematocrit 29.7 (L) 40.1 - 51.0 % [facility] MCV 95.8 (H) 79.0 - 92.2 fL [facility] MCH 31.6 25.7 - 32.2 pg [facility] MCHC 33.0 32.3 - 36.5 GM/DL [facility] RDW 14.0 11.6 - 14.4 % [facility] Platelets 171 150 - 450 K/CU MM [facility] MPV 11.1 9.4 - 12.4 fL [facility] nRBC 0 0 - 0 /100 WBC [facility] % Neutros 69 % [facility] % Lymphs 16 % [facility] % Monos 10 % [facility] % Eos 4 % [facility] % Baso 1 % [facility] # Neutros 3.88 1.78 - 5.38 K/L [facility] # Lymphs 0.88 (L) 1.32 - 3.57 K/L [facility] # Monos 0.56 0.30 - 0.82 K/L [facility] # Eos 0.25 0.04 - 0.54 K/L [facility] # Baso 0.03 0.01 - 0.08 K/L [facility] Immature Granulocytes-Relative 0 0 - 1 % [facility] Specimen Blood Performing Organization Address City/[facility]/Zipcode Phone Number [address] [address] CENTER Lipase (03/01/2018 10:29 AM CDT) Lipase 61 8 - 78 U/L [facility] Specimen Blood Performing Organization Address City/[facility] Phone Number [address] [address] [phone] [place] Amylase (03/01/2018 10:29 AM CDT) Amylase 113 25 - 125 U/L [facility] Specimen Blood Performing Organization Address City/[facility]/Zipcode Phone Number [address] [address] [place] Hepatic function panel (03/01/2018 10:29 AM CDT) Protein, Total 6.8 6.0 - 8.3 gm/dL [facility] Albumin 3.5 3.5 - 5.0 g/dL [facility] Total Bilirubin 0.4 0.2 - 1.2 mg/dL [facility] Bilirubin, Direct 0.2 0.1 - 0.5 mg/dL [facility] Alkaline Phosphatase 78 40 - 150 U/L [facility] AST 20 5 - 34 U/L [facility] ALT 21 6 - 55 U/L [facility] Specimen Blood Performing Organization Address City/State/Zipcode Phone Number [facility] [address] [place] [address] [phone] CENTER Basic Metabolic Panel (03/01/2018 10:29 AM CDT) Sodium 136 136 - 145 meq/L [facility] Potassium 4.0 3.5 - 5.1 meq/L [facility] Chloride 108 (H) 98 - 107 meq/L [facility] CO2 15 (L) 22 - 29 meq/L [facility] BUN 80 (H) 7 - 21 mg/dL [facility] Creatinine 4.79 (H) 0.57 - 1.25 mg/dL [facility] Glucose 84 70 - 105 mg/dL [facility] Calcium 8.9 8.4 - 10.2 mg/dL [facility] EGFR 12Comment: ESTIMATED GFR IS mL/min/1.73 sq m [facility] NOT ACCURATE CREATININE [facility] CLEARANCE IN PREDICTING GLOMERULAR FILTRATION RATE. ESTIMATED GFR IS NOT APPLICABLE FOR DIALYSIS PATIENTS. Specimen Blood Performing Organization Address City/[facility] Phone Number [facility] [address] [place] [address] [phone] [place] ECG 12 lead (03/01/2018 10:20 AM CDT) Specimen Narrative Performed At Ventricular Rate 62 BPM [facility] Atrial Rate 62 BPM P-R Interval 178 ms QRS Duration 96 ms Q-T Interval 452 ms QTC Calculation(Bazett) 458 ms P Vader 66 degrees R Vader -24 degrees T Vader 140 degrees Normal sinus rhythm Possible Left [...] 452 ms QTC Calculation(Bazett) 458 ms P Vader 66 degrees R Vader -24 degrees T Vader 140 degrees Normal sinus rhythm Possible Left [...] Address City/State/Zipcode Phone Number [facility] MUSE after 11/26/2017 Insurance Payer Benefit Plan / Group Subscriber ID Type Phone Address MEDICARE MEDICARE A B xxxxxxxxxx Medicare MEDICAID MEDICAID [place] xxxxxxxxx Medicaid Advance Directives For more information, please contact:[address] [phone] Code Status Date Activated Date Inactivated Comments [...]
--- OUTSIDE RECORDS SUMMARY | 2018-11-27 00:10 | XMS REPORT ---
:1940 [facility] Address [address] [place] [address] Dr. Manley [address] [place] [phone] Care Team Providers Name Role Phone RODNEY NESBITT Unavailable Unavailable LAYLA GÓMEZ Unavailable Unavailable Problems This patient has no known problems. Allergies, Adverse Reactions, Alerts This patient has no known allergies or adverse reactions. Medications This patient has no known medications. Results Test Description Test Time Test Comments Text Results Atomic Results Result Comments URINE CULTURE 2018-03-06 10:04:00 Test Item Value Reference Range Comments CULTURE (BEAKER) (test PSEUDOMONAS 70-79,000 col/mL lshi=4372) AERUGINOSA Pseudomonas aeruginosa Amikacin (test code=1) Susceptible [...] code=25) Resistant <0 or >4 URINALYSIS W/ [id number] 12:06:00 Test Item Value Reference Range Comments COLOR (BEAKER) (test ypyt=209) Yellow CLARITY (BEAKER) (test dzyl=625) Hazy SPECIFIC GRAVITY UA (BEAKER) (test rgnv=302) 1.012 1.001-1.035 PH UA (BEAKER) (test tecy=594) 6.0 5.0-8.0 PROTEIN UA (BEAKER) (test vmeq=942) 600 mg/dL Negative GLUCOSE UA (BEAKER) (test twqz=275) 100 mg/dL Negative KETONES UA (BEAKER) (test ehez=439) Negative Negative BILIRUBIN UA (BEAKER) (test qvsu=435) Negative Negative BLOOD UA (BEAKER) (test mosv=490) Moderate Negative NITRITE UA (BEAKER) (test jsag=020) Negative Negative LEUKOCYTE ESTERASE UA (BEAKER) (test dgsg=626) Small Negative UROBILINOGEN UA (BEAKER) (test ddwt=127) 0.2 mg/dL 0.2-1.0 RBC UA (BEAKER) (test owie=799) 27 /HPF WBC UA (BEAKER) (test mrwq=073) 12 /HPF BACTERIA (BEAKER) (test bqub=181) Occasional MUCUS (BEAKER) (test mvtx=4969) Rare SQUAMOUS EPITHELIAL (BEAKER) (test adkk=351) < /HPF HYALINE CASTS (BEAKER) (test ytnt=707) 2 /LPF GRANULAR CASTS (BEAKER) (test chqi=890) 5 /LPF SOURCE(BEAKER) (test otte=9627) Urine, Yusuf CT, [id number] 15:15:00Reason for exam:->ABDOMINAL PAINWhat is the patient's [...] Verified Date/ Time: 03/01/2018 15:15:27 Reading Location: [address] Body Reading Room BASI METABOLIC [id number] 11:04:00 Test Item Value Reference Range Comments SODIUM (BEAKER) (test 136 meq/L 136-145 ogbm=806) POTASSIUM (BEAKER) (test 4.0 meq/L 3.5-5.1 eadv=575) CHLORIDE (BEAKER) (test 108 meq/L 98-107 pweu=147) CO2 (BEAKER) (test 15 meq/L 22-29 qtwo=917) BLOOD UREA NITROGEN 80 mg/dL 7-21 (BEAKER) (test eqlm=454) CREATININE (BEAKER) (test 4.79 mg/dL 0.57-1.25 crnt=671) GLUCOSE RANDOM (BEAKER) 84 mg/dL 70-105 (test calu=755) CALCIUM (BEAKER) (test 8.9 mg/dL 8.4-10.2 dpwd=485) EGFR (BEAKER) (test 12 mL/min/1.73 sq m ESTIMATED GFR IS NOT qwvz=4171) ACCURATE CREATININE CLEARANCE IN PREDICTING GLOMERULAR FILTRATION RATE. ESTIMATED GFR IS NOT APPLICABLE FOR DIALYSIS PATIENTS. [id number] 11:02:00 Test Item Value Reference Range Comments LIPASE (BEAKER) (test ohvm=167) 61 U/L 8-78 [id number] 11:02:00 Test Item Value Reference Range Comments AMYLASE (BEAKER) (test rjrn=871) 113 U/L 25-125 HEPATIC FUNCTION [id number] 11:02:00 Test Item Value Reference Range Comments TOTAL PROTEIN (BEAKER) (test zgcd=853) 6.8 gm/dL 6.0-8.3 ALBUMIN (BEAKER) (test vvjn=7381) 3.5 g/dL 3.5-5.0 BILIRUBIN TOTAL (BEAKER) (test dpey=922) 0.4 mg/dL 0.2-1.2 BILIRUBIN DIRECT (BEAKER) (test hyft=921) 0.2 mg/dL 0.1-0.5 ALKALINE PHOSPHATASE (BEAKER) (test qsrl=076) 78 U/L 40-150 AST (SGOT) (BEAKER) (test nino=031) 20 U/L 5-34 ALT (SGPT) (BEAKER) (test gxps=331) 21 U/L 6-55 URINALYSIS W/ [id number] 11:01:00 Test Item Value Reference Range Comments COLOR (BEAKER) (test zswq=528) Light Yellow CLARITY (BEAKER) (test eluw=590) Clear SPECIFIC GRAVITY UA (BEAKER) (test liut=633) 1.006 1.001-1.035 PH UA (BEAKER) (test sqfc=712) 6.0 5.0-8.0 PROTEIN UA (BEAKER) (test kbsv=848) 300 mg/dL Negative GLUCOSE UA (BEAKER) (test vdti=239) 30 mg/dL Negative KETONES UA (BEAKER) (test lbia=917) Negative Negative BILIRUBIN UA (BEAKER) (test wnza=063) Negative Negative BLOOD UA (BEAKER) (test axuo=380) Trace Negative NITRITE UA (BEAKER) (test jfzt=588) Negative Negative LEUKOCYTE ESTERASE UA (BEAKER) (test snfr=497) Negative Negative UROBILINOGEN UA (BEAKER) (test xrtm=952) 0.2 mg/dL 0.2-1.0 RBC UA (BEAKER) (test iwwz=179) < /HPF WBC UA (BEAKER) (test tybx=154) < /HPF BACTERIA (BEAKER) (test xcjc=820) Rare MUCUS (BEAKER) (test psrm=1415) Rare SOURCE(BEAKER) (test llxx=8318) Urine, Voided CBC W/PLT COUNT & AUTO [id number] 10:49:00 Test Item Value Reference Range Comments WHITE BLOOD CELL COUNT (BEAKER) (test zffj=517) 5.6 K/ L 3.5-10.5 RED BLOOD CELL COUNT (BEAKER) (test wdst=557) 3.10 M/ L 4.63-6.08 HEMOGLOBIN (BEAKER) (test kheb=648) 9.8 GM/DL 13.7-17.5 HEMATOCRIT (BEAKER) (test llso=507) 29.7 % 40.1-51.0 MEAN CORPUSCULAR VOLUME (BEAKER) (test bdvt=425) 95.8 fL 79.0-92.2 MEAN CORPUSCULAR HEMOGLOBIN (BEAKER) (test 31.6 pg 25.7-32.2 hknw=026) MEAN CORPUSCULAR HEMOGLOBIN CONC (BEAKER) (test 33.0 GM/DL 32.3-36.5 ealr=285) RED CELL DISTRIBUTION WIDTH (BEAKER) (test 14.0 % 11.6-14.4 qvhp=582) PLATELET COUNT (BEAKER) (test xnmt=001) 171 K/CU MM 150-450 MEAN PLATELET VOLUME (BEAKER) (test ygbe=724) 11.1 fL 9.4-12.4 NUCLEATED RED BLOOD CELLS (BEAKER) (test 0 /100 WBC 0-0 nkms=746) NEUTROPHILS RELATIVE PERCENT (BEAKER) (test 69 % hjrn=447) LYMPHOCYTES RELATIVE PERCENT (BEAKER) (test 16 % cvrc=878) MONOCYTES RELATIVE PERCENT (BEAKER) (test 10 % btsi=684) EOSINOPHILS RELATIVE PERCENT (BEAKER) (test 4 % ehnt=818) BASOPHILS RELATIVE PERCENT (BEAKER) (test 1 % mhip=622) NEUTROPHILS ABSOLUTE COUNT (BEAKER) (test 3.88 K/ L 1.78-5.38 tyya=033) LYMPHOCYTES ABSOLUTE COUNT (BEAKER) (test 0.88 K/ L 1.32-3.57 bwrd=407) MONOCYTES ABSOLUTE COUNT (BEAKER) (test 0.56 K/ L 0.30-0.82 nhlv=774) EOSINOPHILS ABSOLUTE COUNT (BEAKER) (test 0.25 K/ L 0.04-0.54 mkwu=341) BASOPHILS ABSOLUTE COUNT (BEAKER) (test 0.03 K/ L 0.01-0.08 dmry=978) IMMATURE GRANULOCYTES-RELATIVE PERCENT (BEAKER) 0 % 0-1 (test gruo=3354)
[2018-11-27] MEDS ORDERED: NA CHLORIDE 0.9% 500 ML ONE (01:01)
[2018-11-27 01:24] LABS: Absolute Lymphocytes (CBC) 0.6 K/uL (0.7-4.9); Absolute Monocytes 0.4 K/uL (0.1-1.3); Basophils % 1.4 % (0-1.3); Eosinophils % 2.3 % (0-4.4); Hematocrit 33.9 % (39.6-49.0); Lymphocytes % 14.3 % (15.3-44.8); MPV 8.7 fL (7.6-11.3); Monocytes % 8.9 % (3.3-12.3); RBC Red Blood Cell Count 3.32 M/uL (4.33-5.43)
[2018-11-27 01:43] LABS: Albumin 3.8 g/dL (3.4-5.0); Bilirubin Direct 0.2 mg/dL (0-0.2); Bilirubin Total 0.6 mg/dL (0.2-1.0); Protein, Total 7.9 g/dL (6.4-8.2)
[2018-11-27 01:44] LABS: Potassium 5.9 mmol/L (3.5-5.1)
[2018-11-27] MEDS ORDERED: ALBUTEROL 2.5 MG/3 ML NEB SOL ONE (03:11)
[2018-11-27] MEDS ORDERED: INSULIN -REGULAR HUMAN 50 UNIT/0.5 ML ML ONE (03:11)
[2018-11-27] MEDS ORDERED: D50W 25 GM/50 ML SYRINGE IV ONE (03:12)
[2018-11-27] MEDS ORDERED: MORPHINE 4 MG/ML SYR ONE (03:12)
[2018-11-27] MEDS ORDERED: SOD POLYSTYREN SUL 15 GM/60 ML UCUP ONE (03:12)
[2018-11-27] MEDS ORDERED: CALCIUM GLUCONATE 1 GM IVPB 1 GM/50 ML BAG IV ONE (03:45)
--- NOTE | 2018-11-27 04:37 | EDPHYS ---
Physician Documentation [facility] Name: Blaise Quarles Age: 78 yrs Sex: Male : 1940 Arrival Date: 11/27/2018 Time: 00:09 Bed 13 Private MD: ED Physician Gilbert Vasquez HPI: 11/27 02:28 This 78 yrs old Male presents to ER via Wheelchair with complaints of pm1 Abdominal Pain. 02:28 The patient presents with abdominal pain. Onset: The symptoms/episode began/occurred 2 pm1 day(s) ago. The symptoms do not radiate. Associated signs and symptoms: Pertinent positives: diarrhea, Pertinent negatives: nausea and vomiting, chest pain, dysuria, fever, shortness of breath. Modifying factors: The symptoms are alleviated by nothing, the symptoms are aggravated by Patient was initially constipated then after drinking prune juice he started having a multiple episodes of diarrhea for two days. Severity of pain: in the emergency department the pain is unchanged. The patient has not experienced similar symptoms in the past. The patient has not recently seen a physician. Historical: - Allergies: 00:23 Aspirin; jb4 - Home Meds: 00:23 amlodipine 10 mg tab 1 tab once daily [Active]; clonazepam 1 mg Oral tab 1 tab 2 times jb4 per day [Active]; nitroglycerin 0.4 mg SL subl 1 tab [Active]; Risperdal 0.5 mg Oral tab 1 tabs 2 times per day [Active]; trazodone 100 mg Oral tab 1 tab nightly [Active]; - PMHx: 00:23 Diabetes - IDDM; Dialysis; High Cholesterol; Hypertension; Myocardial infarction; jb4 pleural effusion; pulmonary nodule; Visually impared; chronic renal disease; Cirrhosis; cardiomegaly; CHF; CAD; Anemia; - PSHx: 00:23 dialysis port placement; jb4 - Immunization history:: Adult Immunizations unknown. - Social history:: Smoking status: Patient/guardian denies using tobacco, Patient/guardian denies using alcohol. - Ebola Screening: : No symptoms or risks identified at this time. ROS: 02:28 Constitutional: Negative for fever, chills, and weight loss, Eyes: Negative for injury, pm1 pain, redness, and discharge, ENT: Negative for injury, pain, and discharge, Neck: Negative for injury, pain, and swelling, Cardiovascular: Negative for chest pain, palpitations, and edema, Respiratory: Negative for shortness of breath, cough, wheezing, and pleuritic chest pain, Back: Negative for injury and pain, : Negative for injury, bleeding, discharge, and swelling, MS/Extremity: Negative for injury and deformity, Skin: Negative for injury, rash, and discoloration. 02:28 Neuro: Negative for headache, weakness, numbness, tingling, and seizure. 02:28 Abdomen/GI: Positive for abdominal pain, diarrhea, Negative for nausea and vomiting. Exam: 02:37 Constitutional: This is a well developed, well nourished patient who is awake, alert, pm1 and in no acute distress. Head/Face: Normocephalic, atraumatic. Eyes: Pupils equal round and reactive to light, extra-ocular motions intact. Lids and lashes normal. Conjunctiva and sclera are non-icteric and not injected. Cornea within normal limits. Periorbital areas with no swelling, redness, or edema. ENT: Nares patent. No nasal discharge, no septal abnormalities noted. Tympanic membranes are normal and external auditory canals are clear. Oropharynx with no redness, swelling, or masses, exudates, or evidence of obstruction, uvula midline. Mucous membranes moist. Neck: Trachea midline, no thyromegaly or masses palpated, and no cervical lymphadenopathy. Supple, full range of motion without nuchal rigidity, or vertebral point tenderness. No Meningismus. Chest/axilla: Normal chest wall appearance and motion. Nontender with no deformity. No lesions are appreciated. Cardiovascular: Regular rate and rhythm with a normal S1 and S2. No gallops, murmurs, or rubs. Normal PMI, no JVD. No pulse deficits. Respiratory: Lungs have equal breath sounds bilaterally, clear to auscultation and percussion. No rales, rhonchi or wheezes noted. No increased work of breathing, no retractions or nasal flaring. 02:37 Back: No spinal tenderness. No costovertebral tenderness. Full range of motion. Skin: Warm, dry with normal turgor. Normal color with no rashes, no lesions, and no evidence of cellulitis. 02:37 MS/ Extremity: Pulses equal, no cyanosis. Neurovascular intact. Full, normal range of motion. 02:37 Abdomen/GI: Inspection: abdomen appears normal, Palpation: mild abdominal tenderness, in the abdomen diffusely, mass, is not appreciated, rebound tenderness, is not appreciated. 02:37 Neuro: Orientation: is normal, Motor: moves all fours. Vital Signs: 00:23 BP 160 / 69; Pulse 57; Resp 16; Temp 98.0(O); Pulse Ox 97% on 2 lpm NC; Weight 55.34 kg jb4 (R); Height 5 ft. 0 in. (152.40 cm) (R); Pain 8/10; 01:45 BP 171 / 69; Pulse 57; Resp 16; Pulse Ox 94% on 2 lpm NC; jb4 03:00 BP 170 / 71; Pulse 60; Resp 16; Pulse Ox 92% on 2 lpm NC; jb4 04:00 BP 170 / 71; Pulse 60; Resp 16; Pulse Ox 90% on 2 lpm NC; jb4 05:15 BP 173 / 64; Pulse 82; Resp 16; Pulse Ox 96% on R/A; jb4 06:00 BP 170 / 87; Pulse 81; Resp 16; Pulse Ox 96% on 2 lpm NC; jb4 00:23 Body Mass Index 23.83 (55.34 kg, 152.40 cm) jb4 MDM: 00:30 Patient medically screened. pm1 02:55 Data reviewed: vital signs. Data interpreted: Pulse oximetry: on room air is 97 %. pm1 Interpretation: normal. 04:33 Refusal of service: The patient/guardian displays adequate decision making capability pm1 and despite a detailed discussion of alternatives, benefits, risks, and consequences refuses: Repeat blood work. Patient wants to go home and refuses to recheck his potassium level despite having a IV in place. Patient wants to go home because he is pain free. Family is present in the room and acknowledge and support his decision. 04:42 ED course: Patient decided that he would now like to wait for the repeat potassium pm1 level. 11/27 00:34 Order name: Basic Metabolic Panel; Complete Time: 01:44 pm1 11/27 00:34 Order name: CBC with Diff; Complete Time: 01:44 pm1 11/27 00:34 Order name: Creatinine for Radiology; Complete Time: 01:44 pm1 11/27 00:34 Order name: Hepatic Function; Complete Time: 01:44 pm1 11/27 00:34 Order name: Lipase; Complete Time: 01:44 pm1 11/27 04:41 Order name: Potassium; Complete Time: 07:02 jb4 11/27 02:23 Order name: Chest Abd Pelvis Wo Con EDMS 11/27 00:34 Order name: IV Saline Lock; Complete Time: 01:15 pm1 11/27 00:34 Order name: Labs collected and sent; Complete Time: 01:15 pm1 11/27 02:15 Order name: EKG; Complete Time: 02:16 pm1 11/27 02:15 Order name: EKG - Nurse/Tech; Complete Time: 02:51 pm1 Administered Medications: 00:35 CANCELLED (Physician Discretion): NS 0.9% 1000 ml IV at 1000 ml once pm1 01:14 Drug: NS 0.9% 500 ml Route: IV; Rate: bolus; Site: right antecubital; jb4 01:45 Follow up: Response: No adverse reaction; IV Status: Completed infusion; IV Intake: jb4 500ml 03:10 Drug: Kayexalate 30 grams Route: PO; jb4 05:40 Follow up: Response: No adverse reaction jb4 03:12 Drug: morphine 4 mg Route: IVP; Site: right antecubital; jb4 03:30 Follow up: Response: No adverse reaction; Pain is decreased jb4 03:15 Drug: D50W 50 ml Route: IVP; Site: right antecubital; jb4 05:39 Follow up: Response: No adverse reaction jb4 03:16 Drug: Insulin Regular Human 5 units {Co-Signature: jb4 (Emanuel Vincent RN).} Route: IVP; ak1 Site: right antecubital; 05:40 Follow up: Response: No adverse reaction jb4 03:16 Drug: Albuterol 7.5 mg Route: Inhalation; jb4 03:45 Follow up: Response: No adverse reaction jb4 04:00 Drug: Sodium Bicarbonate 1 amp Route: IVP; Site: right antecubital; jb4 05:39 Follow up: Response: No adverse reaction jb4 04:10 Drug: Calcium Gluconate 1 grams Route: IVPB; Infused Over: 60 mins; Site: right jb4 antecubital; 05:10 Follow up: Response: No adverse reaction; IV Status: Completed infusion; IV Intake: jb4 100ml Disposition: 11/27/18 06:03 Discharged to Home. Impression: Hyperkalemia. - Condition is Stable. - Discharge Instructions: Hyperkalemia. - Medication Reconciliation Form, Thank You Letter, Antibiotic Education, Prescription Opioid Use form. - Follow up: Private Physician; When: Upon discharge from the Emergency Department; Reason: If symptoms return, Recheck today's complaints, Continuance of care. - Problem is new. - Symptoms have improved. Addendum: 11/29/2018 06:43 Co-signature as Attending Physician, Gilbert Vasquez MD I agree with the assessment and t w4 plan of care. Signatures: Dispatcher [employer] EDCA Sandy Thomas RN RN ak1 Tim Correa, CERTIFIED MIDWIFE CERTIFIED MIDWIFE pm1 Emanuel Vincent RN RN jb4 Gilbert Vasquez MD MD tw4 Emanuel Vincent RN jb4 Corrections: (The following items were deleted from the chart) 11/27 00:35 00:34 NS 0.9% 1000 ml IV at 1000 ml once ordered. pm1 pm1 01:52 01:08 Stone Protocol+CT.RAD.BRZ ordered. [facility] EDMS 02:08 01:52 Abdomen ordered. [facility] EDMS 02:23 02:07 CT CHEST,ABD,PELVIS W/O ordered. [facility] EDMS 04:42 04:35 11/27/2018 04:35 Patients has left against medical advice. Impression: pm1 HyperkalemiaUnspecified abdominal pain; Diarrhea, unspecified. Patient states they are going to Home. Condition is Stable. Follow up: Emergency Department; When: As needed; Reason: Worsening of condition. Follow up: Private Physician; When: 2 - 3 days; Reason: Recheck today's complaints, Continuance of care, Re-evaluation by your physician. Problem is new. Symptoms have improved. pm1 06:24 06:03 11/27/2018 06:03 Discharged to Home. Impression: Hyperkalemia. Condition is jb4 Stable. Forms are Medication Reconciliation Form, Thank You Letter, Antibiotic Education, Prescription Opioid Use. Follow up: Private Physician; When: Upon discharge from the Emergency Department; Reason: If symptoms return, Recheck today's complaints, Continuance of care. Problem is new. Symptoms have improved. tw4
--- NOTE | 2018-11-27 04:37 | ER ---
Nurse's Notes [facility] Name: Blaise Quarles Age: 78 yrs Sex: Male : 1940 Arrival Date: 11/27/2018 Time: 00:09 Bed 13 Private MD: Diagnosis: Hyperkalemia Presentation: 11/27 00:23 Presenting complaint: Patient states: I have abdominal pain and diarrhea for the past 2 jb4 days. 00:23 Transition of care: patient was not received from another setting of care. Onset of jb4 symptoms was November 24, 2018. Risk Assessment: Do you want to hurt yourself or someone else? Patient reports no desire to harm self or others. Initial Sepsis Screen: Does the patient meet any 2 criteria? No. Patient's initial sepsis screen is negative. Does the patient have a suspected source of infection? No. Patient's initial sepsis screen is negative. Care prior to arrival: None. 00:23 Method Of Arrival: Wheelchair jb4 00:23 Acuity: SARATH 3 jb4 Historical: - Allergies: 00:23 Aspirin; jb4 - Home Meds: 00:23 amlodipine 10 mg tab 1 tab once daily [Active]; clonazepam 1 mg Oral tab 1 tab 2 times jb4 per day [Active]; nitroglycerin 0.4 mg SL subl 1 tab [Active]; Risperdal 0.5 mg Oral tab 1 tabs 2 times per day [Active]; trazodone 100 mg Oral tab 1 tab nightly [Active]; - PMHx: 00:23 Diabetes - IDDM; Dialysis; High Cholesterol; Hypertension; Myocardial infarction; jb4 pleural effusion; pulmonary nodule; Visually impared; chronic renal disease; Cirrhosis; cardiomegaly; CHF; CAD; Anemia; - PSHx: 00:23 dialysis port placement; jb4 - Immunization history:: Adult Immunizations unknown. - Social history:: Smoking status: Patient/guardian denies using tobacco, Patient/guardian denies using alcohol. - Ebola Screening: : No symptoms or risks identified at this time. Screenin:15 Abuse screen: Denies threats or abuse. Nutritional screening: No deficits noted. jb4 Tuberculosis screening: No symptoms or risk factors identified. Fall Risk IV access (20 points). Total Parson Fall Scale indicates No Risk (0-24 pts). Assessment: 01:15 General: Appears in no apparent distress. uncomfortable, Behavior is calm, cooperative, jb4 appropriate for age. Pain: Complains of pain in abdomen Pain does not radiate. Pain currently is 8 out of 10 on a pain scale. Quality of pain is described as crampy, Pain began 2-3 days ago. Neuro: Level of Consciousness is awake, alert, obeys commands, Oriented to person, place, time, situation. 01:15 Cardiovascular: Patient's skin is warm and dry. Respiratory: Airway is patent jb4 Respiratory effort is even, unlabored, Respiratory pattern is regular, symmetrical. GI: Bowel sounds present X 4 quads. Abd is soft X 4 quads Abdomen is tender to palpation X 4 quads. : No signs and/or symptoms were reported regarding the genitourinary system. EENT: Derm: Skin is intact, Skin is pink, warm \T\ dry. Musculoskeletal: Circulation, motion, and sensation intact. 01:45 Reassessment: Patient appears in no apparent distress at this time. Patient and/or jb4 family updated on plan of care and expected duration. Pain level reassessed. Patient is alert, oriented x 3, equal unlabored respirations, skin warm/dry/pink. 03:00 Reassessment: Patient appears in no apparent distress at this time. Patient and/or jb4 family updated on plan of care and expected duration. Pain level reassessed. Patient is alert, oriented x 3, equal unlabored respirations, skin warm/dry/pink. 04:00 Reassessment: Patient appears in no apparent distress at this time. Patient and/or jb4 family updated on plan of care and expected duration. Pain level reassessed. Patient is alert, oriented x 3, equal unlabored respirations, skin warm/dry/pink. 05:00 Reassessment: Patient appears in no apparent distress at this time. Patient and/or jb4 family updated on plan of care and expected duration. Pain level reassessed. Patient is alert, oriented x 3, equal unlabored respirations, skin warm/dry/pink. 06:15 Reassessment: Patient appears in no apparent distress at this time. Patient and/or jb4 family updated on plan of care and expected duration. Pain level reassessed. Patient is alert, oriented x 3, equal unlabored respirations, skin warm/dry/pink. Vital Signs: 00:23 BP 160 / 69; Pulse 57; Resp 16; Temp 98.0(O); Pulse Ox 97% on 2 lpm NC; Weight 55.34 kg jb4 (R); Height 5 ft. 0 in. (152.40 cm) (R); Pain 8/10; 01:45 BP 171 / 69; Pulse 57; Resp 16; Pulse Ox 94% on 2 lpm NC; jb4 03:00 BP 170 / 71; Pulse 60; Resp 16; Pulse Ox 92% on 2 lpm NC; jb4 04:00 BP 170 / 71; Pulse 60; Resp 16; Pulse Ox 90% on 2 lpm NC; jb4 05:15 BP 173 / 64; Pulse 82; Resp 16; Pulse Ox 96% on R/A; jb4 06:00 BP 170 / 87; Pulse 81; Resp 16; Pulse Ox 96% on 2 lpm NC; jb4 00:23 Body Mass Index 23.83 (55.34 kg, 152.40 cm) jb4 ED Course: 00:09 Patient arrived in ED. mr 00:23 Tim Correa, RICKY is PHCP. pm1 00:23 Gilbert Vasquez MD is Attending Physician. pm1 00:23 Arm band placed on right wrist. jb4 00:37 Emanuel Vincent, HUONG is Primary Nurse. jb4 00:38 Triage completed. jb4 01:05 Missed attempt(s): 20 gauge in left antecubital area. 22 gauge in left antecubital area.jb4 01:14 Inserted saline lock: 20 gauge in right antecubital area, using aseptic technique. wh Blood collected. 01:15 Patient has correct armband on for positive identification. Bed in low position. Call jb4 light in reach. Side rails up X 1. Pulse ox on. NIBP on. 01:44 Notified Nurse Practitioner and/or Physician Case Manager Specialist of a critical lab result(s), bb potassium of 5.9. Tim Correa NP. 06:23 No provider procedures requiring assistance completed. IV discontinued, intact, jb4 bleeding controlled. Administered Medications: 00:35 CANCELLED (Physician Discretion): NS 0.9% 1000 ml IV at 1000 ml once pm1 01:14 Drug: NS 0.9% 500 ml Route: IV; Rate: bolus; Site: right antecubital; jb4 01:45 Follow up: Response: No adverse reaction; IV Status: Completed infusion; IV Intake: jb4 500ml 03:10 Drug: Kayexalate 30 grams Route: PO; jb4 05:40 Follow up: Response: No adverse reaction jb4 03:12 Drug: morphine 4 mg Route: IVP; Site: right antecubital; jb4 03:30 Follow up: Response: No adverse reaction; Pain is decreased jb4 03:15 Drug: D50W 50 ml Route: IVP; Site: right antecubital; jb4 05:39 Follow up: Response: No adverse reaction jb4 03:16 Drug: Insulin Regular Human 5 units {Co-Signature: jb4 (Emanuel Vincent RN).} Route: IVP; ak1 Site: right antecubital; 05:40 Follow up: Response: No adverse reaction jb4 03:16 Drug: Albuterol 7.5 mg Route: Inhalation; jb4 03:45 Follow up: Response: No adverse reaction jb4 04:00 Drug: Sodium Bicarbonate 1 amp Route: IVP; Site: right antecubital; jb4 05:39 Follow up: Response: No adverse reaction jb4 04:10 Drug: Calcium Gluconate 1 grams Route: IVPB; Infused Over: 60 mins; Site: right jb4 antecubital; 05:10 Follow up: Response: No adverse reaction; IV Status: Completed infusion; IV Intake: jb4 100ml Intake: 01:45 IV: 500ml; Total: 500ml. jb4 05:10 IV: 100ml; Total: 600ml. jb4 Outcome: 06:03 Discharge ordered by . 4 06:23 Discharged to home via wheelchair, with family. jb4 06:23 Condition: stable 06:23 Discharge instructions given to patient, family, Instructed on discharge instructions, follow up and referral plans. Demonstrated understanding of instructions, follow-up care. 06:24 Patient left the ED. jb4 Signatures: Dispatcher [employer] HENNA AmayaTyesha CrystalNaima RN Sandy Miller RN RN ak1 Tim Correa, ANTISQUEAK CHALKER ANTISQUEAK CHALKER pm1 Emanuel Vincent RN RN jb4 Mila Segura Terrence, MD MD tw4 Emanuel Vincent RN jb4 Corrections: (The following items were deleted from the chart) 02:23 02:[address] CHEST,ABD,PELVIS W/O. EDMS EDMS 04:20 00:23 BP 160 / 69; Pulse 57bpm; Resp 16bpm; Pulse Ox 97%; Temp 98.0F Oral; 55.34 kg jb4 Reported; Height 5 ft. 0 in. Reported; BMI: 23.8; Pain 8/10; jb4 04:20 01:45 BP 171 / 69; Pulse 57bpm; Resp 16bpm; Pulse Ox 94%; jb4 jb4
[2018-11-27 06:45] VITALS: TEMP 98
[2018-11-27 06:50] VITALS: O2SAT 96
[2018-11-27 06:51] VITALS: BP 170/87
--- NOTE | 2018-11-27 14:24 | EKG ---
Test Date: 2018-11-27 Test Time: 02:46:05 Oxygen Therapy Technician: SHALA MEASUREMENT RESULTS: Intervals: Rate: 59 MI: 184 QRSD: 98 QT: 450 QTc: 445 Hortense: P: 64 MI: 184 QRS: -19 T: 128 INTERPRETIVE STATEMENTS: Sinus bradycardia Possible Left atrial enlargement Anteroseptal infarct, age undetermined T wave abnormality, consider lateral ischemia Abnormal ECG Compared to ECG 11/19/2018 18:42:46 T-wave abnormality now present Possible ischemia now present Myocardial infarct finding still present Electronically Signed On 11-27-18 14:24:08 CDT by Raheel Zeng
--- NOTE | 2018-11-29 13:51 | RAD REPORT ---
EXAM DESCRIPTION: CT - Chest Abd Pelvis Wo Con - 11/27/2018 4:04 am CLINICAL HISTORY: The patient is 78 years old and is Male; diarrhea; Abd pain TECHNIQUE: Axial computed tomography images of the chest, abdomen and pelvis without intravenous con trast. Sagittal and coronal reformatted images were created and reviewed. This CT exam was perfor med using one or more of the following dose reduction techniques: automated exposure control, adjus tment of the mA and/or kV according to patient size, and/or use of iterative reconstruction technique . COMPARISON: Chest radiograph dated of October 02, 2018. FINDINGS: CHEST: LUNGS: Unremarkable. No mass. No consolidation. PLEURAL SPACE: Bilateral pleural effusions, right greater than left. Diffuse interlobular septal t hickening predominantly in the lung bases. Left lower lobe interstitial opacity with the abdomen bron chograms. No pneumothorax. HEART: Evidence of prior median sternotomy with cardiomegaly and coronary calcifications. No peric ardial effusion. ABDOMEN: LIVER: Unremarkable. GALLBLADDER AND BILE DUCTS: Unremarkable. No calcified stones. No ductal dilation. PANCREAS: Unremarkable. No ductal dilation. SPLEEN: Unremarkable. No splenomegaly. ADRENALS: Unremarkable. No mass. KIDNEYS AND URETERS: Bilateral renal atrophy. No obstructing stones. No hydronephrosis. STOMACH AND BOWEL: Diverticulosis of the cecum and ascending colon. Mild diverticulosis of the dis piyush descending colon. No obstruction. No mucosal thickening. PELVIS: APPENDIX: No findings to suggest acute appendicitis. BLADDER: Thickening of the bladder wall. No stones. REPRODUCTIVE: Unremarkable as visualized. CHEST, ABDOMEN and PELVIS: INTRAPERITONEAL SPACE: Mild upper abdominal and pelvic ascites. No free air. BONES/JOINTS: Diffuse osteopenia. Levoscoliosis of the lumbar spine with rightward subluxation of L4 on L4 and left lateral subluxation of L4 on L5 No acute fracture. SOFT TISSUES: Soft tissue anasarca. VASCULATURE: Calcification of the aortic arch and descending aorta. The fusion also noted in the a bdominal aorta and iliac vasculature. No aneurysmal dilatation. LYMPH NODES: Unremarkable. No enlarged lymph nodes. TUBES, LINES AND DEVICES: Left IJ hemodialysis catheter terminating at the cavoatrial junction. IMPRESSION: 1. Bibasilar interstitial opacity with air bronchograms concerning for pneumonia. Supe rimposed chronic lung changes predominantly in the mid and lower lung zones. 2. Bilateral pleural effusions, right greater than left with adjacent atelectasis. 3. Prior median sternotomy with cardiomegaly. 4. Mild colonic diverticulosis without CT evidence of acute diverticulitis. 5. Urinary bladder wall thickening. Correlate with urinalysis. 6. Mild abdominal/pelvic ascites and soft tissue anasarca. 7. Diffuse osteopenia with levoscoliosis, lateral subluxations and degenerative changes. Electronically signed by: Klaus Ta DO 11/27/2018 2:55 AM CDT Due to temporary technical issues with the PACS/Fluency reporting system, reports are being signed by the in house radiologist as a courtesy to ensure prompt reporting. The interpreting radiologist is f ully responsible for the content of the report.
== END 2018-11-27 06:24 | disposition home or self-care (01) ==
LOC: ER 00:06
DX: E87.5 Hyperkalemia (principal); E11.22 Type 2 diabetes mellitus with diabetic chronic kidney disease; I12.0 Hypertensive chronic kidney disease with stage 5 chronic kidney disease or end stage renal disease; N18.6 End stage renal disease; E78.00 Pure hypercholesterolemia, unspecified; I50.9 Heart failure, unspecified; I25.2 Old myocardial infarction; Z88.6 Allergy status to analgesic agent; Z99.2 Dependence on renal dialysis
CPT/HCPCS: 96365; 96361; 93005; 85025; 80048; 36415; 84132; 80076; 83690; 71250; 74176; 96375; 99284; J0610

== ENCOUNTER 2018-11-29 20:31 | Emergency (ER) | payer OTHER ==
--- OUTSIDE RECORDS SUMMARY | 2018-11-29 20:34 | XMS REPORT | Clinical Summary ---
:1940 Author Organization [facility] Address [address] [place] [address] Care Team Providers Name Role Phone Moo [...] 03/01/2018 Orders Only General Internal Medicine after 11/28/2017 Family History Medical History Relation Name Comments [...] 452 ms QTC Calculation(Bazett) 458 ms P [place] 66 degrees R [place] -24 degrees T [place] 140 degrees Normal sinus rhythm Possible Left [...] MICROSCOPIC STAT 03/01/2018 10:19 AM CDT after 11/28/2017 Results Urinalysis w/Microscopic (03/03/2018 11:08 AM CDT)Only the most recent of2 resultswithin the time period is included. Color, UA Yellow [facility] Clarity, UA Hazy [facility] Specific [place], UA 1.012 1.001 - 1.035 [facility] pH, UA 6.0 5.0 - 8.0 [facility] Protein, UA 600 mg/dL (A) Negative [facility] Glucose, UA 100 mg/dL (A) Negative [facility] Ketones, UA Negative Negative [facility] Bilirubin, UA Negative Negative [facility] Blood, UA Moderate (A) Negative [facility] Nitrite, UA Negative Negative [facility] Leukocytes, UA Small (A) Negative [facility] Urobilinogen, UA 0.2 0.2 - 1.0 mg/dL [facility] RBC, UA 27 /HPF [facility] WBC, UA 12 /HPF [facility] Bacteria, UA Occasional [facility] Mucus Rare [facility] Squam Epithel, UA <1 /HPF [facility] Hyaline Casts, UA 2 /LPF [facility] Granular Casts, UA 5 /LPF [facility] Specimen Source Urine, Yusuf [facility] Specimen Urine Performing Organization Address [facility] [address]/[facility] Phone Number [facility] [address], [place] [id number] [phone] [place] Urine culture (03/03/2018 11:08 AM CDT) Result PSEUDOMONAS AERUGINOSA (A) [facility] Specimen Urine Organism Antibiotic Method Susceptibility [...] aeruginosa Tobramycin <=2: Susceptible Performing Organization Address [facility] [address]/[facility] Phone Number [address] [id number] [phone] [place] ED ECG Interpretation (03/02/2018 7:12 AM CDT) Narrative Performed At Macrina Gómez MD 03/02/20187:12 AM ECG/EKG Interpretation Date/Time: 03/01/2018 10:25 AM Performed by: MACRINA GÓMEZ. Authorized by: MACRINA GÓMEZ The ECG was interpreted by ED physician. The ECG is interpreted as sinus rhythm. Rate is normal rate. Conduction: conduction normal. ST segments abnormal. T waves abnormal. [place] is normal. Other findings: no other findings. Clinical Impression: non-specific ECG and abnormal ECG CT abdomen pelvis without contrast (03/01/2018 1:46 PM CDT) Specimen Narrative Performed At FINAL REPORT Conversion [employer] [facility] ABDOMINAL AND [...] MD Report Verified Date/Time:03/01/2018 15:15:27 Reading Location: [facility] B1 C013Y CT Body Reading Room Procedure [...] Report Verified Date/Time: 03/01/2018 15:15:27 Reading Location: [facility] C013Y CT Body Reading Room Performing Organization Address City/State/Zipcode Phone Number GE RIS CBC with platelet count + automated diff (03/01/2018 10:29 AM CDT) WBC 5.6 3.5 - 10.5 K/L [facility] RBC 3.10 (L) 4.63 - 6.08 M/L [facility] Hemoglobin 9.8 (L) 13.7 - 17.5 GM/DL [facility] Hematocrit 29.7 (L) 40.1 - 51.0 % [facility] MCV 95.8 (H) 79.0 - 92.2 fL [facility] MCH 31.6 25.7 - 32.2 pg [facility] MCHC 33.0 32.3 - 36.5 GM/DL [facility] RDW 14.0 11.6 - 14.4 % [facility] Platelets 171 150 - 450 K/CU MM [facility] MPV 11.1 9.4 - 12.4 fL [facility] nRBC 0 0 - 0 /100 WBC [facility] % Neutros 69 % [facility] % Lymphs 16 % [facility] % Monos 10 % [facility] % Eos 4 % [facility] % Baso 1 % [facility] # Neutros 3.88 1.78 - 5.38 K/L [facility] # Lymphs 0.88 (L) 1.32 - 3.57 K/L [facility] # Monos 0.56 0.30 - 0.82 K/L [facility] # Eos 0.25 0.04 - 0.54 K/L [facility] # Baso 0.03 0.01 - 0.08 K/L [facility] Immature Granulocytes-Relative 0 0 - 1 % [facility] Specimen Blood Performing Organization Address City/[facility] [address]/Zipcode Phone Number [address] [address] [phone] CENTER Lipase (03/01/2018 10:29 AM CDT) Lipase 61 8 - 78 U/L [facility] Specimen Blood Performing Organization Address City/[facility] [address]/[facility] Phone Number [address] [address] [place] Amylase (03/01/2018 10:29 AM CDT) Amylase 113 25 - 125 U/L [facility] Specimen Blood Performing Organization Address City/[facility] [address]/Zipcode Phone Number [address] [address] [place] Hepatic function panel (03/01/2018 10:29 AM CDT) Protein, Total 6.8 6.0 - 8.3 gm/dL [facility] Albumin 3.5 3.5 - 5.0 g/dL [facility] Total Bilirubin 0.4 0.2 - 1.2 mg/dL [facility] Bilirubin, Direct 0.2 0.1 - 0.5 mg/dL [facility] Alkaline Phosphatase 78 40 - 150 U/L [facility] AST 20 5 - 34 U/L [facility] ALT 21 6 - 55 U/L [facility] Specimen Blood Performing Organization Address City/State/Zipcode Phone Number [facility] [address] [place] [address] CENTER Basic Metabolic Panel (03/01/2018 10:29 AM CDT) Sodium 136 136 - 145 meq/L [facility] Potassium 4.0 3.5 - 5.1 meq/L [facility] Chloride 108 (H) 98 - 107 meq/L [facility] CO2 15 (L) 22 - 29 meq/L [facility] BUN 80 (H) 7 - 21 mg/dL [facility] Creatinine 4.79 (H) 0.57 - 1.25 mg/dL [facility] Glucose 84 70 - 105 mg/dL [facility] Calcium 8.9 8.4 - 10.2 mg/dL [facility] EGFR 12Comment: ESTIMATED GFR IS mL/min/1.73 sq m [facility] NOT ACCURATE CREATININE [facility] CLEARANCE IN PREDICTING GLOMERULAR FILTRATION RATE. ESTIMATED GFR IS NOT APPLICABLE FOR DIALYSIS PATIENTS. Specimen Blood Performing Organization Address City/[facility] [address]/[facility] Phone Number [facility] [address] [place] [address] [place] ECG 12 lead (03/01/2018 10:20 AM CDT) Specimen Narrative Performed At Ventricular Rate 62 BPM [facility] MUSE Atrial Rate 62 BPM P-R Interval 178 ms QRS Duration 96 ms Q-T Interval 452 ms QTC Calculation(Bazett) 458 ms P [place] 66 degrees R [place] -24 degrees T [place] 140 degrees Normal sinus rhythm Possible Left [...] 452 ms QTC Calculation(Bazett) 458 ms P [place] 66 degrees R [place] -24 degrees T [place] 140 degrees Normal sinus rhythm Possible Left [...] Address City/State/Zipcode Phone Number GE MUSE after 11/28/2017 Insurance Payer Benefit Plan / Group Subscriber ID Type Phone Address MEDICARE MEDICARE A B xxxxxxxxxx Medicare MEDICAID [place] xxxxxxxxx Medicaid Advance Directives For more information, please contact:[address] [phone] Code Status Date Activated Date Inactivated Comments [...]
--- OUTSIDE RECORDS SUMMARY | 2018-11-29 20:35 | XMS REPORT ---
:1940 [facility] Address [address] [place] [address] Dr. Manley [address] [place] [id number] Care Team Providers Name Role Phone LAZRODNEY [...] Comments CULTURE (BEAKER) (test PSEUDOMONAS 70-79,000 col/mL bogi=1667) AERUGINOSA Pseudomonas aeruginosa Amikacin (test code=1) Susceptible [...] code=25) Resistant <0 or >4 URINALYSIS W/ [id number] 12:06:00 Test Item Value Reference Range Comments COLOR (BEAKER) (test opab=572) Yellow CLARITY (BEAKER) (test xdgy=002) Hazy SPECIFIC GRAVITY UA (BEAKER) (test shls=526) 1.012 1.001-1.035 PH UA (BEAKER) (test jwpr=593) 6.0 5.0-8.0 PROTEIN UA (BEAKER) (test kbfe=359) 600 mg/dL Negative GLUCOSE UA (BEAKER) (test nofk=050) 100 mg/dL Negative KETONES UA (BEAKER) (test zmdo=607) Negative Negative BILIRUBIN UA (BEAKER) (test lzno=638) Negative Negative BLOOD UA (BEAKER) (test bezx=097) Moderate Negative NITRITE UA (BEAKER) (test wfho=744) Negative Negative LEUKOCYTE ESTERASE UA (BEAKER) (test dkxe=560) Small Negative UROBILINOGEN UA (BEAKER) (test hulc=397) 0.2 mg/dL 0.2-1.0 RBC UA (BEAKER) (test viun=032) 27 /HPF WBC UA (BEAKER) (test svcf=478) 12 /HPF BACTERIA (BEAKER) (test vici=861) Occasional MUCUS (BEAKER) (test lhdb=5395) Rare SQUAMOUS EPITHELIAL (BEAKER) (test aojv=275) < /HPF HYALINE CASTS (BEAKER) (test xuhw=890) 2 /LPF GRANULAR CASTS (BEAKER) (test yneq=431) 5 /LPF SOURCE(BEAKER) (test qozw=8908) Urine, Yusuf CT, [id number] 15:15:00Reason for exam:->ABDOMINAL PAINWhat is the patient's [...] Verified Date/ Time: 03/01/2018 15:15:27 Reading Location: [address] Body Reading Room BASIC METABOLIC [id number] 11:04:00 Test Item Value Reference Range Comments SODIUM (BEAKER) (test 136 meq/L 136-145 zxjf=368) POTASSIUM (BEAKER) (test 4.0 meq/L 3.5-5.1 ceje=443) CHLORIDE (BEAKER) (test 108 meq/L 98-107 lmkm=141) CO2 (BEAKER) (test 15 meq/L 22-29 qbvg=975) BLOOD UREA NITROGEN 80 mg/dL 7-21 (BEAKER) (test lojs=838) CREATININE (BEAKER) (test 4.79 mg/dL 0.57-1.25 xkak=501) GLUCOSE RANDOM (BEAKER) 84 mg/dL 70-105 (test lqvl=382) CALCIUM (BEAKER) (test 8.9 mg/dL 8.4-10.2 izko=658) EGFR (BEAKER) (test 12 mL/min/1.73 sq m ESTIMATED GFR IS NOT dpgr=1105) ACCURATE CREATININE CLEARANCE IN PREDICTING GLOMERULAR FILTRATION RATE. ESTIMATED GFR IS NOT APPLICABLE FOR DIALYSIS PATIENTS. [id number] 11:02:00 Test Item Value Reference Range Comments LIPASE (BEAKER) (test upqe=146) 61 U/L 8-78 [id number] 11:02:00 Test Item Value Reference Range Comments AMYLASE (BEAKER) (test olcz=330) 113 U/L 25-125 HEPATIC FUNCTION [id number] 11:02:00 Test Item Value Reference Range Comments TOTAL PROTEIN (BEAKER) (test vhid=108) 6.8 gm/dL 6.0-8.3 ALBUMIN (BEAKER) (test qauu=1215) 3.5 g/dL 3.5-5.0 BILIRUBIN TOTAL (BEAKER) (test ftfb=708) 0.4 mg/dL 0.2-1.2 BILIRUBIN DIRECT (BEAKER) (test qxky=182) 0.2 mg/dL 0.1-0.5 ALKALINE PHOSPHATASE (BEAKER) (test evbq=811) 78 U/L 40-150 AST (SGOT) (BEAKER) (test dsqi=189) 20 U/L 5-34 ALT (SGPT) (BEAKER) (test fcre=947) 21 U/L 6-55 URINALYSIS W/ [id number] 11:01:00 Test Item Value Reference Range Comments COLOR (BEAKER) (test velq=890) Light Yellow CLARITY (BEAKER) (test sole=678) Clear SPECIFIC GRAVITY UA (BEAKER) (test gewv=535) 1.006 1.001-1.035 PH UA (BEAKER) (test ysxk=925) 6.0 5.0-8.0 PROTEIN UA (BEAKER) (test ylwf=957) 300 mg/dL Negative GLUCOSE UA (BEAKER) (test dscw=700) 30 mg/dL Negative KETONES UA (BEAKER) (test qcxg=813) Negative Negative BILIRUBIN UA (BEAKER) (test ackf=985) Negative Negative BLOOD UA (BEAKER) (test uoih=605) Trace Negative NITRITE UA (BEAKER) (test wvyy=649) Negative Negative LEUKOCYTE ESTERASE UA (BEAKER) (test akmi=573) Negative Negative UROBILINOGEN UA (BEAKER) (test qnfy=276) 0.2 mg/dL 0.2-1.0 RBC UA (BEAKER) (test pgeu=571) < /HPF WBC UA (BEAKER) (test ovhw=886) < /HPF BACTERIA (BEAKER) (test stgj=268) Rare MUCUS (BEAKER) (test fgkk=3948) Rare SOURCE(BEAKER) (test prhd=6242) Urine, Voided CBC W/PLT COUNT & AUTO [id number] 10:49:00 Test Item Value Reference Range Comments WHITE BLOOD CELL COUNT (BEAKER) (test dzlf=421) 5.6 K/ L 3.5-10.5 RED BLOOD CELL COUNT (BEAKER) (test zzuq=409) 3.10 M/ L 4.63-6.08 HEMOGLOBIN (BEAKER) (test pega=869) 9.8 GM/DL 13.7-17.5 HEMATOCRIT (BEAKER) (test gric=963) 29.7 % 40.1-51.0 MEAN CORPUSCULAR VOLUME (BEAKER) (test qrzg=177) 95.8 fL 79.0-92.2 MEAN CORPUSCULAR HEMOGLOBIN (BEAKER) (test 31.6 pg 25.7-32.2 zxzu=250) MEAN CORPUSCULAR HEMOGLOBIN CONC (BEAKER) (test 33.0 GM/DL 32.3-36.5 wpij=630) RED CELL DISTRIBUTION WIDTH (BEAKER) (test 14.0 % 11.6-14.4 gvid=385) PLATELET COUNT (BEAKER) (test itow=068) 171 K/CU MM 150-450 MEAN PLATELET VOLUME (BEAKER) (test nfht=373) 11.1 fL 9.4-12.4 NUCLEATED RED BLOOD CELLS (BEAKER) (test 0 /100 WBC 0-0 wbwa=899) NEUTROPHILS RELATIVE PERCENT (BEAKER) (test 69 % tsvc=712) LYMPHOCYTES RELATIVE PERCENT (BEAKER) (test 16 % wvpz=050) MONOCYTES RELATIVE PERCENT (BEAKER) (test 10 % mvzm=467) EOSINOPHILS RELATIVE PERCENT (BEAKER) (test 4 % xfnk=359) BASOPHILS RELATIVE PERCENT (BEAKER) (test 1 % hoct=137) NEUTROPHILS ABSOLUTE COUNT (BEAKER) (test 3.88 K/ L 1.78-5.38 tprk=240) LYMPHOCYTES ABSOLUTE COUNT (BEAKER) (test 0.88 K/ L 1.32-3.57 ltpr=320) MONOCYTES ABSOLUTE COUNT (BEAKER) (test 0.56 K/ L 0.30-0.82 zbcg=130) EOSINOPHILS ABSOLUTE COUNT (BEAKER) (test 0.25 K/ L 0.04-0.54 svbm=111) BASOPHILS ABSOLUTE COUNT (BEAKER) (test 0.03 K/ L 0.01-0.08 dtlj=536) IMMATURE GRANULOCYTES-RELATIVE PERCENT (BEAKER) 0 % 0-1 (test adsy=6544)
[2018-11-29] MEDS ORDERED: MORPHINE 4 MG/ML SYR ONE (21:44)
[2018-11-29] MEDS ORDERED: ONDANSETRON 4 MG/2 ML VIAL ONE (21:44)
[2018-11-29] MEDS ORDERED: METRONIDAZOLE 500mg IVPB 500 MG/100 ML BAG IV ONE (21:45)
[2018-11-29] MEDS ORDERED: NA CHLORIDE 0.9% 1,000 ML ONE (21:45)
[2018-11-29] MEDS ORDERED: CEFTRIAXONE/SWI 1gm 1 GM/10 ML SYR ONE (21:45)
[2018-11-29 21:59] LABS: Absolute Lymphocytes (CBC) 0.4 K/uL (0.7-4.9); Absolute Monocytes 0.3 K/uL (0.1-1.3); Absolute Neutrophil 2.9 K/uL (1.8-8.0); Basophils % 0.5 % (0-1.3); Eosinophils % 2.3 % (0-4.4); Hematocrit 31.1 % (39.6-49.0); Lymphocytes % 10.1 % (15.3-44.8); MPV 8.7 fL (7.6-11.3); Monocytes % 6.9 % (3.3-12.3); RBC Red Blood Cell Count 3.05 M/uL (4.33-5.43)
[2018-11-29 22:09] LABS: Protime INR 1.19
[2018-11-29 22:10] LABS: Albumin 3.8 g/dL (3.4-5.0); Bilirubin Direct 0.3 mg/dL (0-0.2); Bilirubin Total 0.6 mg/dL (0.2-1.0); Protein, Total 7.8 g/dL (6.4-8.2); Troponin (Emerg Dept Use Only) 0.02 ng/mL (0.0-0.045)
--- NOTE | 2018-11-30 00:01 | ER ---
Nurse's Notes [facility] Name: Blaise Quarles Age: 78 yrs Sex: Male : 1940 Arrival Date: 11/29/2018 Time: 20:33 Bed 8 Private MD: MAGNOLIA PABLO Diagnosis: Abdominal tenderness;Hypoxemia;End stage renal disease;Pleural effusion in conditions classified elsewhere;Cystitis Presentation: 11/29 20:41 Presenting complaint: He has chest pain and stomach pain. Transition of care: patient ed1 was not received from another setting of care. Onset of symptoms was November 29, 2018. Risk Assessment: Do you want to hurt yourself or someone else? Patient reports no desire to harm self or others. Initial Sepsis Screen: Does the patient meet any 2 criteria? No. Patient's initial sepsis screen is negative. Does the patient have a suspected source of infection? No. Patient's initial sepsis screen is negative. Care prior to arrival: None. 20:41 Method Of Arrival: Wheelchair ed1 20:41 Acuity: SARATH 2 ed1 Triage Assessment: 20:42 General: Appears uncomfortable, Behavior is calm, cooperative. Pain: Complains of pain ed1 in chest Pain currently is 10 out of 10 on a pain scale. Cardiovascular: Reports chest pain, nausea. Historical: - Allergies: 20:42 Aspirin; ed1 - Home Meds: 20:42 amlodipine 10 mg tab 1 tab once daily [Active]; clonazepam 1 mg Oral tab 1 tab 2 times ed1 per day [Active]; nitroglycerin 0.4 mg SL subl 1 tab [Active]; Risperdal 0.5 mg Oral tab 1 tabs 2 times per day [Active]; trazodone 100 mg Oral tab 1 tab nightly [Active]; - PMHx: 20:42 Anemia; CAD; cardiomegaly; CHF; chronic renal disease; Cirrhosis; Diabetes - IDDM; ed1 Dialysis; High Cholesterol; Hypertension; Myocardial infarction; pleural effusion; pulmonary nodule; Visually impared; - Immunization history:: Adult Immunizations up to date. - Social history:: Smoking status: Patient/guardian denies using tobacco. - Ebola Screening: : Patient negative for fever greater than or equal to 101.5 degrees Fahrenheit, and additional compatible Ebola Virus Disease symptoms Patient denies exposure to infectious person Patient denies travel to an Ebola-affected area in the 21 days before illness onset No symptoms or risks identified at this time. - Family history:: not pertinent. Screenin:50 Abuse screen: Denies threats or abuse. Denies injuries from another. Nutritional aa1 screening: No deficits noted. Tuberculosis screening: No symptoms or risk factors identified. Fall Risk None identified. Assessment: 20:50 General: Appears in no apparent distress. uncomfortable, Behavior is calm, cooperative, aa1 appropriate for age. Pain: Complains of pain in chest and abdomen Pain currently is 10 out of 10 on a pain scale. Quality of pain is described as stabbing, Is continuous. Neuro: Level of Consciousness is awake, alert, obeys commands, Oriented to person, place, time, situation, Moves all extremities. Full function Speech is normal. Cardiovascular: Reports chest pain, Heart tones S1 S2 present Capillary refill < 3 seconds Patient's skin is warm and dry. Rhythm is regular. Respiratory: Airway is patent Respiratory effort is even, unlabored, Respiratory pattern is regular. GI: Abdomen is non-distended, Reports lower abdominal pain, upper abdominal pain, Patient currently denies diarrhea, vomiting. : No signs and/or symptoms were reported regarding the genitourinary system. EENT: No signs and/or symptoms were reported regarding the EENT system. Derm: Skin is intact, is healthy with good turgor, Skin is pink, warm \T\ dry. Musculoskeletal: Circulation, motion, and sensation intact. Capillary refill < 3 seconds. 22:32 Reassessment: Patient appears in no apparent distress at this time. Patient and/or aa1 family updated on plan of care and expected duration. Pain level reassessed. Patient is alert, oriented x 3, equal unlabored respirations, skin warm/dry/pink. Pt awaiting CT scan. 23:20 Reassessment: Patient appears in no apparent distress at this time. Patient and/or aa1 family updated on plan of care and expected duration. Pain level reassessed. Patient is alert, oriented x 3, equal unlabored respirations, skin warm/dry/pink. Pt states that he does not want to stay any longer. Reports he just had CT scan 3 days ago for the same pain that he has now. notified. 23:43 Reassessment: Dr. Viveros at bedside discussing POC with pt \T\ family. aa1 11/30 00:06 Reassessment: Patient appears in no apparent distress at this time. Patient is alert, aa1 oriented x 3, equal unlabored respirations, skin warm/dry/pink. Pt refusing CT scan. States he does not want to be admitted and requests to sign out AMA. notified. Vital Signs: 11/29 20:42 BP 157 / 62; Pulse 61; Resp 20; Temp 97.1(TE); Pulse Ox 90% on R/A; Weight 55.34 kg; ed1 Height 5 ft. 5 in. (165.10 cm); Pain 10/10; 21:30 BP 149 / 61; Pulse 59; Resp 18; Pulse Ox 98% on 2 lpm NC; aa1 22:33 BP 164 / 67; Pulse 64; Resp 16; Pulse Ox 92% ; aa1 23:44 BP 165 / 67; Pulse 69; Resp 18; Temp 97.3(O); Pulse Ox 92% on 2 lpm NC; aa1 20:42 Body Mass Index 20.30 (55.34 kg, 165.10 cm) ed1 20:42 Placed on O2 at \T\L via NC ed1 ED Course: 20:33 Patient arrived in ED. am2 20:33 MAGNOLIA PABLO is Private Physician. am2 20:40 Oxygen administration via nasal cannula \T\ 2L/min. aa1 20:42 Triage completed. ed1 20:42 Arm band placed on Patient placed in an exam room, on a stretcher, on oxygen, on ed1 monitoring tech, on pulse oximetry. 20:50 Patient has correct armband on for positive identification. Placed in gown. Bed in low aa1 position. Call light in reach. hospital monitor on. Pulse ox on. NIBP on. Warm blanket given. 20:51 Ron Viveros MD is Attending Physician. [facility] 21:15 EKG done, by ED staff, reviewed by Ron iVveros MD. ag4 21:30 Inserted saline lock: 20 gauge in right forearm, using aseptic technique. Blood rr5 collected. 22:07 XRAY Chest (1 view) In Process Unspecified. EDMS 23:40 Radha Michael RN is Primary Nurse. aa1 23:58 Dash Jacobson DO is Referral Physician. [facility] 11/30 00:06 No provider procedures requiring assistance completed. IV discontinued, intact, aa1 bleeding controlled, No redness/swelling at site. Pressure dressing applied. Administered Medications: 11/29 21:30 Drug: Zofran 4 mg Route: IVP; Site: right forearm; aa1 22:30 Follow up: Response: No adverse reaction aa1 21:30 Drug: NS 0.9% 1000 ml Route: IV; Rate: 75 ml/hr; Site: right forearm; aa1 11/30 00:05 Follow up: IV Status: Completed infusion aa1 11/29 21:32 Drug: morphine 4 mg Route: IVP; Site: right forearm; aa1 22:30 Follow up: Response: No adverse reaction; Pain is decreased aa1 21:33 Drug: Rocephin 1 grams Route: IV; Rate: calculated rate; Site: right forearm; aa1 21:38 Follow up: IV Status: Completed infusion aa1 21:38 Drug: Flagyl 500 mg Volume: 100 ml; Route: IVPB; Rate: 200 ml/hr; Infused Over: 30 aa1 mins; Site: right forearm; 22:39 Follow up: IV Status: Completed infusion aa1 21:46 CANCELLED (Duplicate Order): Rocephin - (cefTRIAXone) 1 grams IVPB once over 30 mins; aa1 (mix in 50 mL NS) Outcome: 11/30 00:06 AMA AMA form signed aa1 Condition: stable 00:08 Patient left the ED. aa1 Signatures: Dispatcher [employer] Radha Shaffer RN RN aa1 Ron Viveros MD MD cha Riggs, Erika RN RN ed1 Juliana Rushing am2 Sergio Lora RN RN rr5 Juve Ortiz ag4
--- NOTE | 2018-11-30 00:02 | EDPHYS ---
Physician Documentation [facility] Name: Blaise Quarles Age: 78 yrs Sex: Male : 1940 Arrival Date: 11/29/2018 Time: 20:33 Bed 8 Private MD: MAGNOLIA PABLO ED Physician Ron Viveros HPI: 11/29 21:19 This 78 yrs old Male presents to ER via Wheelchair with complaints of Chest yoni Pain > 30 y/o, Abdominal Pain. 21:19 The patient or guardian reports chest pain that is located primarily in the. [facility] 21:19 Onset: today. The patient presents with abdominal pain in the upper abdomen, in the [facility] lower abdomen, abdominal distention. Onset: The symptoms/episode began/occurred 1 day(s) ago. The pain does not radiate. The symptoms do not radiate. Associated signs and symptoms: none. Associated signs and symptoms: The patient has no apparent associated signs or symptoms. Historical: - Allergies: 20:42 Aspirin; ed1 - Home Meds: 20:42 amlodipine 10 mg tab 1 tab once daily [Active]; clonazepam 1 mg Oral tab 1 tab 2 times ed1 per day [Active]; nitroglycerin 0.4 mg SL subl 1 tab [Active]; Risperdal 0.5 mg Oral tab 1 tabs 2 times per day [Active]; trazodone 100 mg Oral tab 1 tab nightly [Active]; - PMHx: 20:42 Anemia; CAD; cardiomegaly; CHF; chronic renal disease; Cirrhosis; Diabetes - IDDM; ed1 Dialysis; High Cholesterol; Hypertension; Myocardial infarction; pleural effusion; pulmonary nodule; Visually impared; - Immunization history:: Adult Immunizations up to date. - Social history:: Smoking status: Patient/guardian denies using tobacco. - Ebola Screening: : Patient negative for fever greater than or equal to 101.5 degrees Fahrenheit, and additional compatible Ebola Virus Disease symptoms Patient denies exposure to infectious person Patient denies travel to an Ebola-affected area in the 21 days before illness onset No symptoms or risks identified at this time. - Family history:: not pertinent. ROS: 21:19 Constitutional: Negative for fever, chills, and weight loss, Eyes: Negative for injury, yoni pain, redness, and discharge, ENT: Negative for injury, pain, and discharge, Neck: Negative for injury, pain, and swelling, Cardiovascular: Negative for chest pain, palpitations, and edema, Respiratory: Negative for shortness of breath, cough, wheezing, and pleuritic chest pain, Back: Negative for injury and pain, : Negative for injury, bleeding, discharge, and swelling, MS/Extremity: Negative for injury and deformity, Skin: Negative for injury, rash, and discoloration, Neuro: Negative for headache, weakness, numbness, tingling, and seizure, Psych: Negative for depression, anxiety, suicide ideation, homicidal ideation, and hallucinations, Allergy/Immunology: Negative for hives, rash, and allergies, Endocrine: Negative for neck swelling, polydipsia, polyuria, polyphagia, and marked weight changes, Hematologic/Lymphatic: Negative for swollen nodes, abnormal bleeding, and unusual bruising. 21:19 Abdomen/GI: Positive for abdominal pain, abdominal cramps, of the right upper quadrant, left upper quadrant, right lower quadrant and left lower quadrant. Exam: 21:19 Constitutional: This is a well developed, well nourished patient who is awake, alert, yoni and in no acute distress. Head/Face: Normocephalic, atraumatic. Eyes: Pupils equal round and reactive to light, extra-ocular motions intact. Lids and lashes normal. Conjunctiva and sclera are non-icteric and not injected. Cornea within normal limits. Periorbital areas with no swelling, redness, or edema. ENT: Nares patent. No nasal discharge, no septal abnormalities noted. Tympanic membranes are normal and external auditory canals are clear. Oropharynx with no redness, swelling, or masses, exudates, or evidence of obstruction, uvula midline. Mucous membranes moist. Neck: Trachea midline, no thyromegaly or masses palpated, and no cervical lymphadenopathy. Supple, full range of motion without nuchal rigidity, or vertebral point tenderness. No Meningismus. Chest/axilla: Normal chest wall appearance and motion. Nontender with no deformity. No lesions are appreciated. Cardiovascular: Regular rate and rhythm with a normal S1 and S2. No gallops, murmurs, or rubs. Normal PMI, no JVD. No pulse deficits. Respiratory: Lungs have equal breath sounds bilaterally, clear to auscultation and percussion. No rales, rhonchi or wheezes noted. No increased work of breathing, no retractions or nasal flaring. Back: No spinal tenderness. No costovertebral tenderness. Full range of motion. Male : Normal genitalia with no discharge or lesions. Skin: Warm, dry with normal turgor. Normal color with no rashes, no lesions, and no evidence of cellulitis. MS/ Extremity: Pulses equal, no cyanosis. Neurovascular intact. Full, normal range of motion. Neuro: Awake and alert, GCS 15, oriented to person, place, time, and situation. Cranial nerves II-XII grossly intact. Motor strength 5/5 in all extremities. Sensory grossly intact. Cerebellar exam normal. Normal gait. Psych: Awake, alert, with orientation to person, place and time. Behavior, mood, and affect are within normal limits. 21:19 Abdomen/GI: Inspection: abdomen appears normal, Bowel sounds: normal, Palpation: moderate abdominal tenderness, in the right upper quadrant, left upper quadrant, right lower quadrant and left lower quadrant, Liver: no appreciated palpable abnormalities, Hernia: not appreciated. Vital Signs: 20:42 BP 157 / 62; Pulse 61; Resp 20; Temp 97.1(TE); Pulse Ox 90% on R/A; Weight 55.34 kg; ed1 Height 5 ft. 5 in. (165.10 cm); Pain 10/10; 21:30 BP 149 / 61; Pulse 59; Resp 18; Pulse Ox 98% on 2 lpm NC; aa1 22:33 BP 164 / 67; Pulse 64; Resp 16; Pulse Ox 92% ; aa1 23:44 BP 165 / 67; Pulse 69; Resp 18; Temp 97.3(O); Pulse Ox 92% on 2 lpm NC; aa1 20:42 Body Mass Index 20.30 (55.34 kg, 165.10 cm) ed1 20:42 Placed on O2 at \T\L via NC ed1 MDM: 20:51 Patient medically screened. [facility] 21:22 Data reviewed: vital signs, nurses notes, lab test result(s), EKG, radiologic studies, [facility] CT scan, plain films. 11/29 21:14 Order name: Basic Metabolic Panel [facility] 11/29 21:14 Order name: CBC with Diff [facility] 11/29 21:14 Order name: LFT's; Complete Time: 22:54 [facility] 11/29 21:14 Order name: Magnesium; Complete Time: 22:54 [facility] 11/29 21:14 Order name: NT PRO-BNP; Complete Time: 22:54 [facility] 11/29 21:14 Order name: PT-INR; Complete Time: 22:54 [facility] 11/29 21:14 Order name: Troponin (emerg Dept Use Only); Complete Time: 22:54 [facility] 11/29 21:14 Order name: XRAY Chest (1 view) [facility] 11/29 21:15 Order name: Basic Metabolic Panel; Complete Time: 22:54 [facility] 11/29 21:15 Order name: CBC with Automated Diff; Complete Time: 22:54 [facility] 11/29 21:45 Order name: Lipase; Complete Time: 22:54 [facility] 11/29 21:14 Order name: EKG; Complete Time: 21:15 [facility] 11/29 21:14 Order name: Cardiac monitoring; Complete Time: 21:15 [facility] 11/29 21:14 Order name: EKG - Nurse/Tech; Complete Time: 21:15 [facility] 11/29 21:14 Order name: IV Saline Lock; Complete Time: 22:40 [facility] 11/29 21:14 Order name: Labs collected and sent; Complete Time: 22:39 [facility] 11/29 21:14 Order name: O2 Per Protocol; Complete Time: 21:17 [facility] 11/29 21:14 Order name: O2 Sat Monitoring; Complete Time: 21:17 [facility] Administered Medications: 21:30 Drug: Zofran 4 mg Route: IVP; Site: right forearm; aa1 22:30 Follow up: Response: No adverse reaction aa 21:30 Drug: NS 0.9% 1000 ml Route: IV; Rate: 75 ml/hr; Site: right forearm; aa11/30 00:05 Follow up: IV Status: Completed infusion aa11/29 21:32 Drug: morphine 4 mg Route: IVP; Site: right forearm; aa 22:30 Follow up: Response: No adverse reaction; Pain is decreased aa 21:33 Drug: Rocephin 1 grams Route: IV; Rate: calculated rate; Site: right forearm; aa1 21:38 Follow up: IV Status: Completed infusion aa 21:38 Drug: Flagyl 500 mg Volume: 100 ml; Route: IVPB; Rate: 200 ml/hr; Infused Over: 30 aa1 mins; Site: right forearm; 22:39 Follow up: IV Status: Completed infusion aa1 21:46 CANCELLED (Duplicate Order): Rocephin - (cefTRIAXone) 1 grams IVPB once over 30 mins; aa1 (mix in 50 mL NS) Disposition: 11/30/18 00:01 Patient has left against medical advice. Impression: Abdominal tenderness, Hypoxemia, End stage renal disease, Pleural effusion in conditions classified elsewhere, Cystitis. - Patients states they are going to Home. - Condition is Serious. Follow up: Private Physician; When: Tomorrow; Reason: Recheck today's complaints, Continuance of care, Re-evaluation by your physician. Follow up: Dash Jacobson DO; When: Today; Reason: Recheck today's complaints, Continuance of care, Re-evaluation by your physician. - Problem is new. - Symptoms are unchanged. Signatures: Dispatcher [employer] EDMS Radha Michael RN RN aa1 Ron Viveros MD MD cha Riggs, Erika, RN RN ed1 Corrections: (The following items were deleted from the chart) 21:44 21:19 LIPASE+C.LAB.BRZ ordered. EDAL EDMS 21:46 21:19 Rocephin - (cefTRIAXone) 1 grams IVPB once over 30 mins; (mix in 50 mL NS) aa1 ordered. [facility] 11/30 00:08 00:01 11/30/2018 00:01 Patients has left against medical advice. Impression: Abdominal aa1 tenderness; Hypoxemia; End stage renal disease; Pleural effusion in conditions classified elsewhere; Cystitis. Patient states they are going to Home. Condition is Serious. Follow up: Private Physician; When: Tomorrow; Reason: Recheck today's complaints, Continuance of care, Re-evaluation by your physician. Follow up: Dash Jacobson; When: Today; Reason: Recheck today's complaints, Continuance of care, Re-evaluation by your physician. Problem is new. Symptoms are unchanged. [facility]
[2018-11-30 01:33] VITALS: O2SAT 92
[2018-11-30 01:35] VITALS: BP 165/67; TEMP 97.3
--- NOTE | 2018-11-30 06:15 | EKG ---
Test Date: 2018-11-29 Test Time: 20:46:51 Nursing Specialist: AG3 MEASUREMENT RESULTS: Intervals: Rate: 59 KS: 188 QRSD: 108 QT: 462 QTc: 457 [place]: P: 53 KS: 188 QRS: -2 T: 132 INTERPRETIVE STATEMENTS: Sinus bradycardia Anterior infarct, age undetermined ST & T wave abnormality, consider lateral ischemia Abnormal ECG Compared to ECG 11/27/2018 02:46:05 ST (T wave) deviation now present T-wave abnormality no longer present Myocardial infarct finding still present Possible ischemia still present Electronically Signed On 11-30-18 06:14:47 CDT by Raheel Zeng
--- NOTE | 2018-11-30 08:20 | RAD REPORT ---
EXAM DESCRIPTION: RAD - Chest Single View - 11/29/2018 10:00 pm CLINICAL HISTORY: ABDOMINAL DISTENTION Chest pain. COMPARISON: Chest Single View dated 11/04/2018; Chest Single View dated 10/02/2018; Chest Single View dated 08/03/2018; Chest Single View dated 07/27/2018 FINDINGS: Portable technique limits examination quality. Bilateral pulmonary opacities are present, mild in severity, most compatible with pulmonary edema. Th e heart is moderately enlarged in size with right-sided venous catheter. Sternotomy wires are present . Small bilateral pleural effusions, greater on the right. IMPRESSION: Moderate CHF versus volume overload pattern.
== END 2018-11-30 00:08 | disposition left against medical advice (07) ==
LOC: ER 20:31
DX: E13.22 Other specified diabetes mellitus with diabetic chronic kidney disease (principal); I13.2 Hypertensive heart and chronic kidney disease with heart failure and with stage 5 chronic kidney disease, or end stage renal disease; N18.6 End stage renal disease; I50.9 Heart failure, unspecified; J90 Pleural effusion, not elsewhere classified; N30.90 Cystitis, unspecified without hematuria; Z99.2 Dependence on renal dialysis; Z79.4 Long term (current) use of insulin; D64.9 Anemia, unspecified; I51.7 Cardiomegaly
CPT/HCPCS: 96365; 96361; 93005; 85025; 80048; 36415; 83735; 85610; 80076; 84484; 83690; 83880; 71045; 96375; 99285; J0696; J7030; J2405

== ENCOUNTER 2018-12-08 11:24 | Emergency (ER) | payer OTHER ==
--- OUTSIDE RECORDS SUMMARY | 2018-12-08 11:27 | XMS REPORT | Clinical Summary ---
:1940 Author Organization [facility] Address [address] [place] [address] Care Team Providers Name Role Phone Moo [...] 03/01/2018 Orders Only General Internal Medicine after 12/07/2017 Family History Medical History Relation Name Comments [...] 452 ms QTC Calculation(Bazett) 458 ms P [place] 66 degrees R [place] -24 degrees T [place] 140 degrees Normal sinus rhythm Possible Left [...] MICROSCOPIC STAT 03/01/2018 10:19 AM CDT after 12/07/2017 Results Urinalysis w/Microscopic (03/03/2018 11:08 AM CDT)Only the most recent of2 resultswithin the time period is included. Color, UA Yellow [facility] Clarity, UA Hazy [facility] Specific Harmony, UA 1.012 1.001 - 1.035 [facility] pH, UA 6.0 5.0 - 8.0 [facility] Protein, UA 600 mg/dL (A) Negative [facility] Glucose, UA 100 mg/dL (A) Negative [facility] Ketones, UA Negative Negative [facility] Bilirubin, UA Negative Negative [facility] Blood, UA Moderate (A) Negative [facility] Nitrite, UA Negative Negative [facility] Leukocytes, UA Small (A) Negative [facility] Urobilinogen, UA 0.2 0.2 - 1.0 mg/dL [facility] RBC, UA 27 /HPF [facility] WBC, UA 12 /HPF [facility] Bacteria, UA Occasional [facility] Mucus Rare [facility] Squam Epithel, UA <1 /HPF [facility] Hyaline Casts, UA 2 /LPF [facility] Granular Casts, UA 5 /LPF [facility] Specimen Source Urine, Yusuf [facility] Specimen Urine Performing Organization Address [facility] Phone Number [facility] [address] [place], [place] [phone] [place] Urine culture (03/03/2018 11:08 AM CDT) Result PSEUDOMONAS AERUGINOSA (A) [facility] Specimen Urine Organism Antibiotic Method Susceptibility [...] aeruginosa Tobramycin <=2: Susceptible Performing Organization Address [facility] Phone Number [address] [phone] [place] ED ECG Interpretation (03/02/2018 7:12 AM CDT) Narrative Performed At Macrina Gómez MD 03/02/20187:12 AM ECG/EKG Interpretation Date/Time: 03/01/2018 10:25 AM Performed by: MACRINA GÓMEZ. Authorized by: MACRINA GÓMEZ The ECG was interpreted by ED physician. The ECG is interpreted as sinus rhythm. Rate is normal rate. Conduction: conduction normal. ST segments abnormal. T waves abnormal. [place] is normal. Other findings: no other findings. Clinical Impression: non-specific ECG and abnormal ECG CT abdomen pelvis without contrast (03/01/2018 1:46 PM CDT) Specimen Narrative Performed At FINAL REPORT Cover Lockscreen [facility] ABDOMINAL AND PELVIS CT DATED 03/01/2018 [...] MD Report Verified Date/Time:03/01/2018 15:15:27 Reading Location: [facility] B1 C013Y CT Body Reading Room [...] Report Verified Date/Time: 03/01/2018 15:15:27 Reading Location: [facility] C013Y CT Body Reading Room Performing Organization Address City/State/Zipcode Phone Number GE RIS CBC with platelet count + automated diff (03/01/2018 10:29 AM CDT) WBC 5.6 3.5 - 10.5 K/L [facility] RBC 3.10 (L) 4.63 - 6.08 M/L [facility] Hemoglobin 9.8 (L) 13.7 - 17.5 GM/DL [facility] Hematocrit 29.7 (L) 40.1 - 51.0 % [facility] MCV 95.8 (H) 79.0 - 92.2 fL [facility] MCH 31.6 25.7 - 32.2 pg [facility] MCHC 33.0 32.3 - 36.5 GM/DL [facility] RDW 14.0 11.6 - 14.4 % [facility] Platelets 171 150 - 450 K/CU MM [facility] MPV 11.1 9.4 - 12.4 fL [facility] nRBC 0 0 - 0 /100 WBC [facility] % Neutros 69 % [facility] % Lymphs 16 % [facility] % Monos 10 % [facility] % Eos 4 % [facility] % Baso 1 % [facility] # Neutros 3.88 1.78 - 5.38 K/L [facility] # Lymphs 0.88 (L) 1.32 - 3.57 K/L [facility] # Monos 0.56 0.30 - 0.82 K/L [facility] # Eos 0.25 0.04 - 0.54 K/L [facility] # Baso 0.03 0.01 - 0.08 K/L [facility] Immature Granulocytes-Relative 0 0 - 1 % [facility] Specimen Blood Performing Organization Address City/[facility]/Zipcode Phone Number [address] [address] [phone] CENTER Lipase (03/01/2018 10:29 AM CDT) Lipase 61 8 - 78 U/L [facility] Specimen Blood Performing Organization Address City/[facility] Phone Number [address] [address] [phone] [place] Amylase (03/01/2018 10:29 AM CDT) Amylase 113 25 - 125 U/L [facility] Specimen Blood Performing Organization Address City/[facility]/Zipcode Phone Number [address] [address] [place] Hepatic function panel (03/01/2018 10:29 AM CDT) Protein, Total 6.8 6.0 - 8.3 gm/dL [facility] Albumin 3.5 3.5 - 5.0 g/dL [facility] Total Bilirubin 0.4 0.2 - 1.2 mg/dL [facility] Bilirubin, Direct 0.2 0.1 - 0.5 mg/dL [facility] Alkaline Phosphatase 78 40 - 150 U/L [facility] AST 20 5 - 34 U/L [facility] ALT 21 6 - 55 U/L [facility] Specimen Blood Performing Organization Address City/State/Zipcode Phone Number [facility] [address] [place] [address] CENTER Basic Metabolic Panel (03/01/2018 10:29 AM CDT) Sodium 136 136 - 145 meq/L [facility] Potassium 4.0 3.5 - 5.1 meq/L [facility] Chloride 108 (H) 98 - 107 meq/L [facility] CO2 15 (L) 22 - 29 meq/L [facility] BUN 80 (H) 7 - 21 mg/dL [facility] Creatinine 4.79 (H) 0.57 - 1.25 mg/dL [facility] Glucose 84 70 - 105 mg/dL [facility] Calcium 8.9 8.4 - 10.2 mg/dL [facility] EGFR 12Comment: ESTIMATED GFR IS mL/min/1.73 sq m [facility] NOT ACCURATE [facility] CLEARANCE IN PREDICTING GLOMERULAR FILTRATION RATE. ESTIMATED GFR IS NOT APPLICABLE FOR DIALYSIS PATIENTS. Specimen Blood Performing Organization Address City/[facility] Phone Number [facility] [address] [place] [address] [place] ECG 12 lead (03/01/2018 10:20 AM CDT) Specimen Narrative Performed At Ventricular Rate 62 BPM GE MUSE Atrial Rate 62 BPM P-R Interval 178 ms QRS Duration 96 ms Q-T Interval 452 ms QTC Calculation(Bazett) 458 ms P [place] 66 degrees R [place] -24 degrees T [place] 140 degrees Normal sinus rhythm Possible Left [...] 452 ms QTC Calculation(Bazett) 458 ms P [place] 66 degrees R [place] -24 degrees T [place] 140 degrees Normal sinus rhythm Possible Left [...] Address City/State/Zipcode Phone Number GE MUSE after 12/07/2017 Insurance Payer Benefit Plan / Group Subscriber ID Type Phone Address MEDICARE MEDICARE A B xxxxxxxxxx Medicare MEDICAID [place]ICAID [place] xxxxxxxxx Medicaid Advance Directives For more information, please contact:[address] [phone] Code Status Date Activated Date Inactivated Comments [...]
--- OUTSIDE RECORDS SUMMARY | 2018-12-08 11:27 | XMS REPORT ---
:1940 [facility] Address [address] [place] [address] Dr. Man[address] [place] [id number] Care Team Providers Name Role Phone LAZRODNEY [...] Comments CULTURE (BEAKER) (test PSEUDOMONAS 70-79,000 col/mL bttf=6342) AERUGINOSA Pseudomonas aeruginosa Amikacin (test code=1) Susceptible [...] code=25) Resistant <0 or >4 URINALYSIS W/ [id number] 12:06:00 Test Item Value Reference Range Comments COLOR (BEAKER) (test ezkr=331) Yellow CLARITY (BEAKER) (test uehf=461) Hazy SPECIFIC GRAVITY UA (BEAKER) (test umuw=112) 1.012 1.001-1.035 PH UA (BEAKER) (test mgls=789) 6.0 5.0-8.0 PROTEIN UA (BEAKER) (test ahzi=528) 600 mg/dL Negative GLUCOSE UA (BEAKER) (test eghq=975) 100 mg/dL Negative KETONES UA (BEAKER) (test zmmr=448) Negative Negative BILIRUBIN UA (BEAKER) (test jzcl=008) Negative Negative BLOOD UA (BEAKER) (test obyc=093) Moderate Negative NITRITE UA (BEAKER) (test ftcz=450) Negative Negative LEUKOCYTE ESTERASE UA (BEAKER) (test twss=470) Small Negative UROBILINOGEN UA (BEAKER) (test cfyl=616) 0.2 mg/dL 0.2-1.0 RBC UA (BEAKER) (test qupt=836) 27 /HPF WBC UA (BEAKER) (test ckvr=801) 12 /HPF BACTERIA (BEAKER) (test slsk=698) Occasional MUCUS (BEAKER) (test jmcl=9505) Rare SQUAMOUS EPITHELIAL (BEAKER) (test whxl=405) < /HPF HYALINE CASTS (BEAKER) (test qdqz=218) 2 /LPF GRANULAR CASTS (BEAKER) (test lfzo=253) 5 /LPF SOURCE(BEAKER) (test sutx=8797) Urine, Yusuf CT, [id number] 15:15:00Reason for exam:->ABDOMINAL PAINWhat is the patient's [...] Verified Date/ Time: 03/01/2018 15:15:27 Reading Location: [address] Body Reading Room BASIC METABOLIC [id number] 11:04:00 Test Item Value Reference Range Comments SODIUM (BEAKER) (test 136 meq/L 136-145 qlse=638) POTASSIUM (BEAKER) (test 4.0 meq/L 3.5-5.1 ctuu=717) CHLORIDE (BEAKER) (test 108 meq/L 98-107 bolr=783) CO2 (BEAKER) (test 15 meq/L 22-29 npnq=561) BLOOD UREA NITROGEN 80 mg/dL 7-21 (BEAKER) (test meho=926) CREATININE (BEAKER) (test 4.79 mg/dL 0.57-1.25 zqbt=541) GLUCOSE RANDOM (BEAKER) 84 mg/dL 70-105 (test gipr=463) CALCIUM (BEAKER) (test 8.9 mg/dL 8.4-10.2 dcfo=878) EGFR (BEAKER) (test 12 mL/min/1.73 sq m ESTIMATED GFR IS NOT dlqi=4171) ACCURATE CREATININE CLEARANCE IN PREDICTING GLOMERULAR FILTRATION RATE. ESTIMATED GFR IS NOT APPLICABLE FOR DIALYSIS PATIENTS. [id number] 11:02:00 Test Item Value Reference Range Comments LIPASE (BEAKER) (test vuam=425) 61 U/L 8-78 [id number] 11:02:00 Test Item Value Reference Range Comments AMYLASE (BEAKER) (test dzsi=089) 113 U/L 25-125 HEPATIC FUNCTION [id number] 11:02:00 Test Item Value Reference Range Comments TOTAL PROTEIN (BEAKER) (test vnhh=656) 6.8 gm/dL 6.0-8.3 ALBUMIN (BEAKER) (test cqou=5528) 3.5 g/dL 3.5-5.0 BILIRUBIN TOTAL (BEAKER) (test qtab=176) 0.4 mg/dL 0.2-1.2 BILIRUBIN DIRECT (BEAKER) (test xphf=060) 0.2 mg/dL 0.1-0.5 ALKALINE PHOSPHATASE (BEAKER) (test rfnd=089) 78 U/L 40-150 AST (SGOT) (BEAKER) (test xnww=755) 20 U/L 5-34 ALT (SGPT) (BEAKER) (test rxfz=574) 21 U/L 6-55 URINALYSIS W/ [id number] 11:01:00 Test Item Value Reference Range Comments COLOR (BEAKER) (test geqm=287) Light Yellow CLARITY (BEAKER) (test uczl=868) Clear SPECIFIC GRAVITY UA (BEAKER) (test zjqh=053) 1.006 1.001-1.035 PH UA (BEAKER) (test ktge=590) 6.0 5.0-8.0 PROTEIN UA (BEAKER) (test ahzd=795) 300 mg/dL Negative GLUCOSE UA (BEAKER) (test dqna=612) 30 mg/dL Negative KETONES UA (BEAKER) (test aotv=795) Negative Negative BILIRUBIN UA (BEAKER) (test kmor=616) Negative Negative BLOOD UA (BEAKER) (test plsu=617) Trace Negative NITRITE UA (BEAKER) (test mcbd=523) Negative Negative LEUKOCYTE ESTERASE UA (BEAKER) (test hpln=217) Negative Negative UROBILINOGEN UA (BEAKER) (test teit=855) 0.2 mg/dL 0.2-1.0 RBC UA (BEAKER) (test rgkf=014) < /HPF WBC UA (BEAKER) (test wbxo=642) < /HPF BACTERIA (BEAKER) (test yvmo=594) Rare MUCUS (BEAKER) (test eych=4594) Rare SOURCE(BEAKER) (test dxpd=2098) Urine, Voided CBC W/PLT COUNT & AUTO [id number] 10:49:00 Test Item Value Reference Range Comments WHITE BLOOD CELL COUNT (BEAKER) (test xeaj=366) 5.6 K/ L 3.5-10.5 RED BLOOD CELL COUNT (BEAKER) (test rkij=990) 3.10 M/ L 4.63-6.08 HEMOGLOBIN (BEAKER) (test yfzh=420) 9.8 GM/DL 13.7-17.5 HEMATOCRIT (BEAKER) (test dkqa=008) 29.7 % 40.1-51.0 MEAN CORPUSCULAR VOLUME (BEAKER) (test yoxb=056) 95.8 fL 79.0-92.2 MEAN CORPUSCULAR HEMOGLOBIN (BEAKER) (test 31.6 pg 25.7-32.2 gdmt=759) MEAN CORPUSCULAR HEMOGLOBIN CONC (BEAKER) (test 33.0 GM/DL 32.3-36.5 cdlr=986) RED CELL DISTRIBUTION WIDTH (BEAKER) (test 14.0 % 11.6-14.4 tofw=434) PLATELET COUNT (BEAKER) (test zwdl=311) 171 K/CU MM 150-450 MEAN PLATELET VOLUME (BEAKER) (test magk=537) 11.1 fL 9.4-12.4 NUCLEATED RED BLOOD CELLS (BEAKER) (test 0 /100 WBC 0-0 kqoy=618) NEUTROPHILS RELATIVE PERCENT (BEAKER) (test 69 % vtcz=099) LYMPHOCYTES RELATIVE PERCENT (BEAKER) (test 16 % ntst=347) MONOCYTES RELATIVE PERCENT (BEAKER) (test 10 % wohp=103) EOSINOPHILS RELATIVE PERCENT (BEAKER) (test 4 % xapf=241) BASOPHILS RELATIVE PERCENT (BEAKER) (test 1 % jftv=274) NEUTROPHILS ABSOLUTE COUNT (BEAKER) (test 3.88 K/ L 1.78-5.38 kxxk=075) LYMPHOCYTES ABSOLUTE COUNT (BEAKER) (test 0.88 K/ L 1.32-3.57 epsk=867) MONOCYTES ABSOLUTE COUNT (BEAKER) (test 0.56 K/ L 0.30-0.82 plnc=916) EOSINOPHILS ABSOLUTE COUNT (BEAKER) (test 0.25 K/ L 0.04-0.54 lgbt=412) BASOPHILS ABSOLUTE COUNT (BEAKER) (test 0.03 K/ L 0.01-0.08 szrw=345) IMMATURE GRANULOCYTES-RELATIVE PERCENT (BEAKER) 0 % 0-1 (test ascc=7736)
[2018-12-08 12:11] LABS: Absolute Lymphocytes (CBC) 0.5 K/uL (0.7-4.9); Absolute Monocytes 0.4 K/uL (0.1-1.3); Absolute Neutrophil 1.9 K/uL (1.8-8.0); Eosinophils % 3.4 % (0-4.4); Hematocrit 27.1 % (39.6-49.0); Lymphocytes % 18.3 % (15.3-44.8); MPV 8.5 fL (7.6-11.3); Monocytes % 12.4 % (3.3-12.3); RBC Red Blood Cell Count 2.65 M/uL (4.33-5.43)
[2018-12-08] MEDS ORDERED: ONDANSETRON 4 MG/2 ML VIAL ONE (12:19)
[2018-12-08] MEDS ORDERED: MORPHINE 4 MG/ML SYR ONE (12:19)
[2018-12-08 12:23] LABS: Protime INR 1.23
--- NOTE | 2018-12-08 12:27 | RAD REPORT ---
EXAM DESCRIPTION: RAD - Chest Single View - 12/08/2018 12:18 pm CLINICAL HISTORY: CHEST PAIN Chest pain. COMPARISON: Chest Single View dated 11/29/2018; Chest Single View dated 11/04/2018; Chest Single View dated 10/02/2018; Chest Single View dated 08/03/2018 FINDINGS: Portable technique limits examination quality. Mild to moderate pulmonary edema is present. Bilateral pleural effusions noted, small to moderate. Th e heart is moderately enlarged with sternotomy wires present. Right-sided venous catheter is in place , unchanged. IMPRESSION: Mild to moderate CHF versus volume overload.
[2018-12-08 12:51] LABS: Albumin 3.1 g/dL (3.4-5.0); Bilirubin Direct 0.2 mg/dL (0-0.2); Bilirubin Total 0.5 mg/dL (0.2-1.0); Magnesium 1.9 mg/dL (1.8-2.4); Potassium 5.1 mmol/L (3.5-5.1); Protein, Total 6.5 g/dL (6.4-8.2); Troponin (Emerg Dept Use Only) 0.04 ng/mL (0.0-0.045)
[2018-12-08 13:06] LABS: Anisocytosis SLIGHT; Blood Morphology Comment NOTED (NOT SEEN); Hypochromasia 1+; Platelet Estimate ADEQ; Urine White Blood Cell Casts OK
--- NOTE | 2018-12-08 13:37 | EDPHYS ---
Physician Documentation [facility] Name: Blaise Quarles Age: 78 yrs Sex: Male : 1940 Arrival Date: 12/08/2018 Time: 11:27 Bed 17 Private MD: ADELINA Physician Ron Viveros HPI: 12/08 12:59 This 78 yrs old Male presents to ER via Wheelchair with complaints of Chest jr8 Pain. 12:59 The patient or guardian reports chest pain that is located primarily in the substernal jr8 area. Onset: acutely, today. The pain does not radiate. Associated signs and symptoms: The patient has no apparent associated signs or symptoms. The chest pain is described as sharp. Duration: The patient or guardian reports a single episode, that is still ongoing. Modifying factors: The symptoms are alleviated by nothing. the symptoms are aggravated by nothing. Severity of pain: At its worst the pain was moderate in the emergency department the pain is unchanged. The patient has experienced similar episodes in the past, several times. The patient has not recently seen a physician. Stated that he had dialysis yesterday. Chest pain that started early this morning. Family stated that he has had this several time in the past. Unknown cause . Historical: - Allergies: 11:47 Aspirin; iw - Home Meds: 11:47 amlodipine 10 mg tab 1 tab once daily [Active]; clonazepam 1 mg Oral tab 1 tab 2 times iw per day [Active]; nitroglycerin 0.4 mg SL subl 1 tab [Active]; Risperdal 0.5 mg Oral tab 1 tabs 2 times per day [Active]; trazodone 100 mg Oral tab 1 tab nightly [Active]; - PMHx: 11:47 Anemia; CAD; cardiomegaly; CHF; chronic renal disease; Cirrhosis; Diabetes - IDDM; iw Dialysis; High Cholesterol; Hypertension; Myocardial infarction; pleural effusion; pulmonary nodule; Visually impared; - Immunization history:: Adult Immunizations up to date. - Social history:: Smoking status: Patient/guardian denies using tobacco. - Ebola Screening: : Patient negative for fever greater than or equal to 101.5 degrees Fahrenheit, and additional compatible Ebola Virus Disease symptoms Patient denies exposure to infectious person Patient denies travel to an Ebola-affected area in the 21 days before illness onset No symptoms or risks identified at this time. ROS: 12:59 Eyes: Negative for injury, pain, redness, and discharge, ENT: Negative for injury, jr8 pain, and discharge, Neck: Negative for injury, pain, and swelling, Respiratory: Negative for shortness of breath, cough, wheezing, and pleuritic chest pain, Abdomen/GI: Negative for abdominal pain, nausea, vomiting, diarrhea, and constipation, Back: Negative for injury and pain, MS/Extremity: Negative for injury and deformity, Skin: Negative for injury, rash, and discoloration, Neuro: Negative for headache, weakness, numbness, tingling, and seizure. 12:59 Cardiovascular: Positive for chest pain, Negative for edema, orthopnea, palpitations, paroxysmal nocturnal dyspnea. Exam: 12:59 Eyes: Pupils equal round and reactive to light, extra-ocular motions intact. Lids and jr8 lashes normal. Conjunctiva and sclera are non-icteric and not injected. Cornea within normal limits. Periorbital areas with no swelling, redness, or edema. ENT: Nares patent. No nasal discharge, no septal abnormalities noted. Tympanic membranes are normal and external auditory canals are clear. Oropharynx with no redness, swelling, or masses, exudates, or evidence of obstruction, uvula midline. Mucous membranes moist. Neck: Trachea midline, no thyromegaly or masses palpated, and no cervical lymphadenopathy. Supple, full range of motion without nuchal rigidity, or vertebral point tenderness. No Meningismus. Cardiovascular: Regular rate and rhythm with a normal S1 and S2. No gallops, murmurs, or rubs. Normal PMI, no JVD. No pulse deficits. Respiratory: Lungs have equal breath sounds bilaterally, clear to auscultation and percussion. No rales, rhonchi or wheezes noted. No increased work of breathing, no retractions or nasal flaring. Abdomen/GI: Soft, non-tender, with normal bowel sounds. No distension or tympany. No guarding or rebound. No evidence of tenderness throughout. Back: No spinal tenderness. No costovertebral tenderness. Full range of motion. Skin: Warm, dry with normal turgor. Normal color with no rashes, no lesions, and no evidence of cellulitis. MS/ Extremity: Pulses equal, no cyanosis. Neurovascular intact. Full, normal range of motion. Neuro: Awake and alert, GCS 15, oriented to person, place, time, and situation. Cranial nerves II-XII grossly intact. Motor strength 5/5 in all extremities. Sensory grossly intact. Cerebellar exam normal. Normal gait. Vital Signs: 11:46 BP 164 / 59; Pulse 68; Resp 20 S; Pulse Ox 93% on 3 lpm NC; Weight 55.34 kg; Height 5 iw ft. 5 in. (165.10 cm); Pain 10/10; 12:30 BP 162 / 58; Pulse 72; Resp 18; Pulse Ox 96% on 3 lpm NC; hj 14:04 BP 155 / 60; Pulse 69; Resp 18; Pulse Ox 95% on 3 lpm NC; hj 11:46 Body Mass Index 20.30 (55.34 kg, 165.10 cm) iw MDM: 11:39 Patient medically screened. yoni 13:34 Data reviewed: vital signs, nurses notes, lab test result(s), EKG, radiologic studies, jr plain films. Data interpreted: Pulse oximetry: on 2L(s) per nasal canula, is 93 %. Interpretation: acceptable. 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 ED course: Patient feels much better. All pain resolved. Negative Troponin. Will f/u with cardiology. Patient on home oxygen. Feels that he is at baseline . 12/08 11:52 Order name: Basic Metabolic Panel; Complete Time: 13:02 12/08 11:52 Order name: CBC with Diff; Complete Time: 13:36 12/08 11:52 Order name: LFT's; Complete Time: 13:12/08 11:52 Order name: Magnesium; Complete Time: 13:02 12/08 11:52 Order name: NT PRO-BNP; Complete Time: 13:02 12/08 11:52 Order name: PT-INR; Complete Time: 12:38 12/08 11:52 Order name: Troponin (emerg Dept Use Only); Complete Time: 13:02 [facility] 12/08 11:52 Order name: XRAY Chest (1 view); Complete Time: 12:38 [facility] 12/08 11:52 Order name: EKG; Complete Time: 12:08 [facility] 12/08 11:52 Order name: Cardiac monitoring; Complete Time: 11:52 [facility] 12/08 11:52 Order name: EKG - Nurse/Tech; Complete Time: 12:27 [facility] 12/08 12:28 Order name: CBC Smear Scan; Complete Time: 13:36 [facility] 12/08 11:52 Order name: IV Saline Lock; Complete Time: 12:12 [facility] 12/08 11:52 Order name: Labs collected and sent; Complete Time: 12:12 [facility] 12/08 11:52 Order name: O2 Per Protocol; Complete Time: 11:53 [facility] 12/08 11:52 Order name: O2 Sat Monitoring; Complete Time: 11:53 Administered Medications: 11:52 Drug: morphine 4 mg Route: IVP; Site: right forearm; hj 13:17 Follow up: Response: No adverse reaction; Pain is decreased 11:52 Drug: Zofran 4 mg Route: IVP; Site: right forearm; hj 13:17 Follow up: Response: No adverse reaction hj Disposition: 15:40 Co-signature as Attending Physician, Ron Viveros MD I agree with the assessment and yoni plan of care. Disposition: 12/08/18 13:36 Discharged to Home. Impression: Chest pain, unspecified. - Condition is Stable. - Discharge Instructions: Nonspecific Chest Pain. - Medication Reconciliation Form, Thank You Letter, Antibiotic Education, Prescription Opioid Use form. - Follow up: Private Physician; When: 2 - 3 days; Reason: Recheck today's complaints, Continuance of care, Re-evaluation by your physician. - Problem is new. - Symptoms have improved. Signatures: Dispatcher [employer] Ron Leo MD MD cha Williams, Irene, RN RN iw Roszak, Josh, PA PA jr8 Jesse Kwong RN RN hj Corrections: (The following items were deleted from the chart) 14:15 13:36 12/08/2018 13:36 Discharged to Home. Impression: Chest pain, unspecified. hj Condition is Stable. Forms are Medication Reconciliation Form, Thank You Letter, Antibiotic Education, Prescription Opioid Use. Follow up: Private Physician; When: 2 - 3 days; Reason: Recheck today's complaints, Continuance of care, Re-evaluation by your physician. Problem is new. Symptoms have improved. jr8
--- NOTE | 2018-12-08 13:37 | ER ---
Nurse's Notes [facility] Name: Blaise Quarles Age: 78 yrs Sex: Male : 1940 Arrival Date: 12/08/2018 Time: 11:27 Bed 17 Private MD: Diagnosis: Chest pain, unspecified Presentation: 12/08 11:44 Presenting complaint: Patient states: midsternal chest pain since 0400 today, dialysis iw patient, last dialyzed yesterday. Transition of care: patient was not received from another setting of care. Onset of symptoms was December 08, 2018. Risk Assessment: Do you want to hurt yourself or someone else? Patient reports no desire to harm self or others. Initial Sepsis Screen: Does the patient meet any 2 criteria? No. Patient's initial sepsis screen is negative. Does the patient have a suspected source of infection? No. Patient's initial sepsis screen is negative. Care prior to arrival: None. 11:44 Method Of Arrival: Wheelchair iw 11:44 Acuity: SARATH 2 iw Triage Assessment: 11:50 General: Appears in no apparent distress. uncomfortable, Behavior is calm, cooperative, hj appropriate for age. Pain: Complains of pain in chest. Cardiovascular: Reports chest pain. Historical: - Allergies: 11:47 Aspirin; iw - Home Meds: 11:47 amlodipine 10 mg tab 1 tab once daily [Active]; clonazepam 1 mg Oral tab 1 tab 2 times iw per day [Active]; nitroglycerin 0.4 mg SL subl 1 tab [Active]; Risperdal 0.5 mg Oral tab 1 tabs 2 times per day [Active]; trazodone 100 mg Oral tab 1 tab nightly [Active]; - PMHx: 11:47 Anemia; CAD; cardiomegaly; CHF; chronic renal disease; Cirrhosis; Diabetes - IDDM; iw Dialysis; High Cholesterol; Hypertension; Myocardial infarction; pleural effusion; pulmonary nodule; Visually impared; - Immunization history:: Adult Immunizations up to date. - Social history:: Smoking status: Patient/guardian denies using tobacco. - Ebola Screening: : Patient negative for fever greater than or equal to 101.5 degrees Fahrenheit, and additional compatible Ebola Virus Disease symptoms Patient denies exposure to infectious person Patient denies travel to an Ebola-affected area in the 21 days before illness onset No symptoms or risks identified at this time. Screenin:52 Abuse screen: Denies threats or abuse. Denies injuries from another. Nutritional hj screening: No deficits noted. Tuberculosis screening: No symptoms or risk factors identified. Fall Risk None identified. Assessment: 11:50 Pain: Pain does not radiate. Pain began suddenly. hj 11:50 General: Appears in no apparent distress. uncomfortable, Behavior is calm, cooperative, hj appropriate for age. Neuro: Level of Consciousness is awake, alert, obeys commands, Oriented to person, place, time, situation, Appropriate for age. Cardiovascular: Capillary refill < 3 seconds Patient's skin is warm and dry. Respiratory: Airway is patent Respiratory effort is even, unlabored, Respiratory pattern is regular, symmetrical. GI: No signs and/or symptoms were reported involving the gastrointestinal system. : No signs and/or symptoms were reported regarding the genitourinary system. EENT: No signs and/or symptoms were reported regarding the EENT system. Derm: No signs and/or symptoms reported regarding the dermatologic system. Musculoskeletal: No signs and/or symptoms reported regarding the musculoskeletal system. 12:30 Reassessment: Patient and/or family updated on plan of care and expected duration. Pain hj level reassessed. Patient is alert, oriented x 3, equal unlabored respirations, skin warm/dry/pink. awaiting results and POC;. 13:59 Reassessment: Patient and/or family updated on plan of care and expected duration. Pain hj level reassessed. Patient is alert, oriented x 3, equal unlabored respirations, skin warm/dry/pink. Patient states feeling better. Patient states symptoms have improved. Vital Signs: 11:46 BP 164 / 59; Pulse 68; Resp 20 S; Pulse Ox 93% on 3 lpm NC; Weight 55.34 kg; Height 5 iw ft. 5 in. (165.10 cm); Pain 10/10; 12:30 BP 162 / 58; Pulse 72; Resp 18; Pulse Ox 96% on 3 lpm NC; hj 14:04 BP 155 / 60; Pulse 69; Resp 18; Pulse Ox 95% on 3 lpm NC; hj 11:46 Body Mass Index 20.30 (55.34 kg, 165.10 cm) iw ED Course: 11:27 Patient arrived in ED. mr 11:37 Ron Viveros MD is Attending Physician. yoni 11:37 [facility] jr8 11:37 Ron Viveros MD is Attending Physician. jr8 11:39 Jesse Kwong, RN is Primary Nurse. hj 11:46 Triage completed. iw 11:48 Arm band placed on. iw 11:50 Patient has correct armband on for positive identification. Bed in low position. Call hj light in reach. Side rails up X2. Adult w/ patient. pvc monitor on. Pulse ox on. NIBP on. 11:50 Initial lab(s) drawn, by me, sent to lab. Inserted saline lock: 22 gauge in right hj forearm, using aseptic technique. Blood collected. 11:50 Oxygen administration via nasal cannula \T\ 3L/min. hj 12:19 XRAY Chest (1 view) In Process Unspecified. EDMS 12:32 EKG done, by scada technician. reviewed by Hayden POWELL. at1 14:05 No provider procedures requiring assistance completed. IV discontinued, intact, hj bleeding controlled, No redness/swelling at site. Pressure dressing applied. Administered Medications: 11:52 Drug: morphine 4 mg Route: IVP; Site: right forearm; hj 13:17 Follow up: Response: No adverse reaction; Pain is decreased hj 11:52 Drug: Zofran 4 mg Route: IVP; Site: right forearm; hj 13:17 Follow up: Response: No adverse reaction hj Outcome: 13:36 Discharge ordered by . jrLibrado 14:05 Discharged to home via wheelchair, with family. hj 14:05 Condition: stable 14:05 Discharge instructions given to patient, family, Instructed on discharge instructions, follow up and referral plans. Demonstrated understanding of instructions, follow-up care. 14:15 Patient left the ED. 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
[2018-12-08 14:37] VITALS: BP 155/60; O2SAT 95
--- NOTE | 2018-12-09 11:33 | EKG ---
Test Date: 2018-12-08 Test Time: 11:44:45 Process Development Technician: RON MEASUREMENT RESULTS: Intervals: Rate: 68 CA: 178 QRSD: 90 QT: 414 QTc: 440 Martin: P: 87 CA: 178 QRS: -45 T: 129 INTERPRETIVE STATEMENTS: Normal sinus rhythm Left axis deviation Pulmonary disease pattern Septal infarct, age undetermined T wave abnormality, consider lateral ischemia Abnormal ECG Compared to ECG 11/29/2018 20:46:51 Left-axis deviation now present Sinus bradycardia no longer present Myocardial infarct finding still present Electronically Signed On 12-09-18 07:37:49 CDT by Raheel Zeng
== END 2018-12-08 14:15 | disposition home or self-care (01) ==
LOC: ER 11:24
DX: R07.9 Chest pain, unspecified (principal); D64.9 Anemia, unspecified; I25.10 Atherosclerotic heart disease of native coronary artery without angina pectoris; I13.0 Hypertensive heart and chronic kidney disease with heart failure and stage 1 through stage 4 chronic kidney disease, or unspecified chronic kidney disease; N18.9 Chronic kidney disease, unspecified; I50.9 Heart failure, unspecified; E11.22 Type 2 diabetes mellitus with diabetic chronic kidney disease; I25.2 Old myocardial infarction; E78.00 Pure hypercholesterolemia, unspecified
CPT/HCPCS: 93005; 85025; 80048; 36415; 83735; 85610; 80076; 84484; 83880; 71045; 96375; 96374; 99285; J2405

== ENCOUNTER 2018-12-13 03:34 | Emergency (ER) | payer OTHER ==
--- OUTSIDE RECORDS SUMMARY | 2018-12-13 03:37 | XMS REPORT | Clinical Summary ---
:1940 Author Organization [facility] Address [address] [place] [address] Care Team Providers Name Role Phone Moo [...] 03/01/2018 Orders Only General Internal Medicine after 12/12/2017 Family History Medical History Relation Name Comments [...] 452 ms QTC Calculation(Bazett) 458 ms P [place] 66 degrees R [place] -24 degrees T [place] 140 degrees Normal sinus rhythm Possible Left [...] MICROSCOPIC STAT 03/01/2018 10:19 AM CDT after 12/12/2017 Results Urinalysis w/Microscopic (03/03/2018 11:08 AM CDT)Only the most recent of2 resultswithin the time period is included. Color, UA Yellow [facility] Clarity, UA Hazy [facility] Specific Ribera, UA 1.012 1.001 - 1.035 [facility] pH, UA 6.0 5.0 - 8.0 [facility] Protein, UA 600 mg/dL (A) Negative [facility] Glucose, UA 100 mg/dL (A) Negative [facility] Ketones, UA Negative Negative [facility] Bilirubin, UA Negative Negative [facility] Blood, UA Moderate (A) Negative [facility] Nitrite, UA Negative Negative [facility] Leukocytes, UA Small (A) Negative [facility] Urobilinogen, UA 0.2 0.2 - 1.0 mg/dL [facility] RBC, UA 27 /HPF [facility] WBC, UA 12 /HPF [facility] Bacteria, UA Occasional [facility] Mucus Rare [facility] Squam Epithel, UA <1 /HPF [facility] Hyaline Casts, UA 2 /LPF [facility] Granular Casts, UA 5 /LPF [facility] Specimen Source Urine, Yusuf [facility] Specimen Urine Performing Organization Address [facility] Phone Number [facility] [address] [place], [place] [phone] [place] Urine culture (03/03/2018 11:08 AM CDT) Result PSEUDOMONAS AERUGINOSA (A) [facility] Specimen Urine Organism Antibiotic Method [...] <=2: Susceptible Performing Organization Address [facility] Phone Number [address] [id number] [phone] [place] ED ECG Interpretation (03/02/2018 7:12 AM CDT) Narrative Performed At Macrina Gómez MD 03/02/20187:12 AM ECG/EKG Interpretation Date/Time: 03/01/2018 10:25 AM Performed by: MACRINA GÓMEZ. Authorized by: MACRINA GÓEMZ The ECG was interpreted by ED physician. The ECG is interpreted as sinus rhythm. Rate is normal rate. Conduction: conduction normal. ST segments abnormal. T waves abnormal. [place] is normal. Other findings: no other findings. Clinical Impression: non-specific ECG and abnormal ECG CT abdomen pelvis without contrast (03/01/2018 1:46 PM CDT) Specimen Narrative Performed At FINAL REPORT [facility] ABDOMINAL AND PELVIS CT DATED [...] MD Report Verified Date/Time:03/01/2018 15:15:27 Reading Location: [facility] B[facility] C013[facility] CT Body Reading Room Procedure [...] Report Verified Date/Time: 03/01/2018 15:15:27 Reading Location: [facility] C013Y CT Body Reading Room Performing Organization Address City/State/Zipcode Phone Number GE RIS CBC with platelet count + automated diff (03/01/2018 10:29 AM CDT) WBC 5.6 3.5 - 10.5 K/L [facility] RBC 3.10 (L) 4.63 - 6.08 M/L [facility] Hemoglobin 9.8 (L) 13.7 - 17.5 GM/DL [facility] Hematocrit 29.7 (L) 40.1 - 51.0 % [facility] MCV 95.8 (H) 79.0 - 92.2 fL [facility] MCH 31.6 25.7 - 32.2 pg [facility] MCHC 33.0 32.3 - 36.5 GM/DL [facility] RDW 14.0 11.6 - 14.4 % [facility] Platelets 171 150 - 450 K/CU MM [facility] MPV 11.1 9.4 - 12.4 fL [facility] nRBC 0 0 - 0 /100 WBC [facility] % Neutros 69 % [facility] % Lymphs 16 % [facility] % Monos 10 % [facility] % Eos 4 % [facility] % Baso 1 % [facility] # Neutros 3.88 1.78 - 5.38 K/L [facility] # Lymphs 0.88 (L) 1.32 - 3.57 K/L [facility] # Monos 0.56 0.30 - 0.82 K/L [facility] # Eos 0.25 0.04 - 0.54 K/L [facility] # Baso 0.03 0.01 - 0.08 K/L [facility] Immature Granulocytes-Relative 0 0 - 1 % [facility] Specimen Blood Performing Organization Address City/[facility]/Zipcode Phone Number [address] [address] [phone] CENTER Lipase (03/01/2018 10:29 AM CDT) Lipase 61 8 - 78 U/L [facility] Specimen Blood Performing Organization Address City/[facility] Phone Number [address] [address] [place] Amylase (03/01/2018 10:29 AM CDT) Amylase 113 25 - 125 U/L [facility] Specimen Blood Performing Organization Address City/[facility]/Zipcode Phone Number [address] [address] [place] Hepatic function panel (03/01/2018 10:29 AM CDT) Protein, Total 6.8 6.0 - 8.3 gm/dL [facility] Albumin 3.5 3.5 - 5.0 g/dL [facility] Total Bilirubin 0.4 0.2 - 1.2 mg/dL [facility] Bilirubin, Direct 0.2 0.1 - 0.5 mg/dL [facility] Alkaline Phosphatase 78 40 - 150 U/L [facility] AST 20 5 - 34 U/L [facility] ALT 21 6 - 55 U/L [facility] Specimen Blood Performing Organization Address City/State/Zipcode Phone Number [facility] [address] [place] [address] CENTER Basic Metabolic Panel (03/01/2018 10:29 AM CDT) Sodium 136 136 - 145 meq/L [facility] Potassium 4.0 3.5 - 5.1 meq/L [facility] Chloride 108 (H) 98 - 107 meq/L [facility] CO2 15 (L) 22 - 29 meq/L [facility] BUN 80 (H) 7 - 21 mg/dL [facility] Creatinine 4.79 (H) 0.57 - 1.25 mg/dL [facility] Glucose 84 70 - 105 mg/dL [facility] Calcium 8.9 8.4 - 10.2 mg/dL [facility] EGFR 12Comment: ESTIMATED GFR IS mL/min/1.73 sq m [facility] NOT ACCURATE CREATININE [facility] CLEARANCE IN PREDICTING GLOMERULAR FILTRATION RATE. ESTIMATED GFR IS NOT APPLICABLE FOR DIALYSIS PATIENTS. Specimen Blood Performing Organization Address City/[facility] Phone Number [facility] [address] [place] [address] [place] ECG 12 lead (03/01/2018 10:20 AM CDT) Specimen Narrative Performed At Ventricular Rate 62 BPM [facility] Atrial Rate 62 BPM P-R Interval 178 ms QRS Duration 96 ms Q-T Interval 452 ms QTC Calculation(Bazett) 458 ms P [place] 66 degrees R [place] -24 degrees T [place] 140 degrees Normal sinus rhythm Possible Left [...] 452 ms QTC Calculation(Bazett) 458 ms P [place] 66 degrees R [place] -24 degrees T [place] 140 degrees Normal sinus rhythm Possible Left [...] Address City/State/Zipcode Phone Number GE MUSE after 12/12/2017 Insurance Payer Benefit Plan / Group Subscriber ID Type Phone Address MEDICARE MEDICARE A B xxxxxxxxxx Medicare [place]ICA[place] xxxxxxxxx Medicaid Advance Directives For more information, please contact:[address] [phone] Code Status Date Activated Date Inactivated Comments [...]
--- OUTSIDE RECORDS SUMMARY | 2018-12-13 03:37 | XMS REPORT ---
:1940 [facility] Address [address] [place] [address] Dr. Manley [address] [place] [address] Care Team Providers Name Role Phone LAZRODNEY [...] Comments CULTURE (BEAKER) (test PSEUDOMONAS 70-79,000 col/mL gevl=7580) AERUGINOSA Pseudomonas aeruginosa Amikacin (test code=1) Susceptible [...] code=25) Resistant <0 or >4 URINALYSIS W/ [id number] 12:06:00 Test Item Value Reference Range Comments COLOR (BEAKER) (test spla=190) Yellow CLARITY (BEAKER) (test svrk=583) Hazy SPECIFIC GRAVITY UA (BEAKER) (test jrfn=869) 1.012 1.001-1.035 PH UA (BEAKER) (test dtac=706) 6.0 5.0-8.0 PROTEIN UA (BEAKER) (test frnp=120) 600 mg/dL Negative GLUCOSE UA (BEAKER) (test abio=460) 100 mg/dL Negative KETONES UA (BEAKER) (test fcly=939) Negative Negative BILIRUBIN UA (BEAKER) (test myfl=008) Negative Negative BLOOD UA (BEAKER) (test lubm=562) Moderate Negative NITRITE UA (BEAKER) (test oydr=585) Negative Negative LEUKOCYTE ESTERASE UA (BEAKER) (test fmnj=735) Small Negative UROBILINOGEN UA (BEAKER) (test dtra=940) 0.2 mg/dL 0.2-1.0 RBC UA (BEAKER) (test zynb=247) 27 /HPF WBC UA (BEAKER) (test udxq=726) 12 /HPF BACTERIA (BEAKER) (test ulzp=701) Occasional MUCUS (BEAKER) (test etpb=6543) Rare SQUAMOUS EPITHELIAL (BEAKER) (test wxid=909) < /HPF HYALINE CASTS (BEAKER) (test hjzc=316) 2 /LPF GRANULAR CASTS (BEAKER) (test wivy=989) 5 /LPF SOURCE(BEAKER) (test jonu=8359) Urine, Yusuf CT, [id number] 15:15:00Reason for exam:->ABDOMINAL PAINWhat is the patient's [...] Verified Date/ Time: 03/01/2018 15:15:27 Reading Location: [address] Body Reading Room BASIC METABOLIC [id number] 11:04:00 Test Item Value Reference Range Comments SODIUM (BEAKER) (test 136 meq/L 136-145 jxyf=377) POTASSIUM (BEAKER) (test 4.0 meq/L 3.5-5.1 snbd=115) CHLORIDE (BEAKER) (test 108 meq/L 98-107 eyim=315) CO2 (BEAKER) (test 15 meq/L 22-29 bosv=828) BLOOD UREA NITROGEN 80 mg/dL 7-21 (BEAKER) (test vrux=389) CREATININE (BEAKER) (test 4.79 mg/dL 0.57-1.25 tzvq=068) GLUCOSE RANDOM (BEAKER) 84 mg/dL 70-105 (test wlhu=048) CALCIUM (BEAKER) (test 8.9 mg/dL 8.4-10.2 sfbh=513) EGFR (BEAKER) (test 12 mL/min/1.73 sq m ESTIMATED GFR IS NOT tnvn=5849) ACCURATE CREATININE CLEARANCE IN PREDICTING GLOMERULAR FILTRATION RATE. ESTIMATED GFR IS NOT APPLICABLE FOR DIALYSIS PATIENTS. [id number] 11:02:00 Test Item Value Reference Range Comments LIPASE (BEAKER) (test gwgi=664) 61 U/L 8-78 [id number] 11:02:00 Test Item Value Reference Range Comments AMYLASE (BEAKER) (test elfy=907) 113 U/L 25-125 HEPATIC FUNCTION [id number] 11:02:00 Test Item Value Reference Range Comments TOTAL PROTEIN (BEAKER) (test scii=753) 6.8 gm/dL 6.0-8.3 ALBUMIN (BEAKER) (test zedu=4245) 3.5 g/dL 3.5-5.0 BILIRUBIN TOTAL (BEAKER) (test qhee=797) 0.4 mg/dL 0.2-1.2 BILIRUBIN DIRECT (BEAKER) (test zxmk=577) 0.2 mg/dL 0.1-0.5 ALKALINE PHOSPHATASE (BEAKER) (test dppo=993) 78 U/L 40-150 AST (SGOT) (BEAKER) (test opww=390) 20 U/L 5-34 ALT (SGPT) (BEAKER) (test cykh=057) 21 U/L 6-55 URINALYSIS W/ [id number] 11:01:00 Test Item Value Reference Range Comments COLOR (BEAKER) (test kzkg=630) Light Yellow CLARITY (BEAKER) (test lwak=975) Clear SPECIFIC GRAVITY UA (BEAKER) (test ghtr=157) 1.006 1.001-1.035 PH UA (BEAKER) (test gzrw=774) 6.0 5.0-8.0 PROTEIN UA (BEAKER) (test clip=239) 300 mg/dL Negative GLUCOSE UA (BEAKER) (test gzhw=975) 30 mg/dL Negative KETONES UA (BEAKER) (test iumo=775) Negative Negative BILIRUBIN UA (BEAKER) (test jgpv=312) Negative Negative BLOOD UA (BEAKER) (test gmtg=606) Trace Negative NITRITE UA (BEAKER) (test wsye=439) Negative Negative LEUKOCYTE ESTERASE UA (BEAKER) (test vzvc=520) Negative Negative UROBILINOGEN UA (BEAKER) (test imgi=266) 0.2 mg/dL 0.2-1.0 RBC UA (BEAKER) (test dvab=103) < /HPF WBC UA (BEAKER) (test zbuf=568) < /HPF BACTERIA (BEAKER) (test atgw=574) Rare MUCUS (BEAKER) (test bxir=7325) Rare SOURCE(BEAKER) (test gfjm=1297) Urine, Voided CBC W/PLT COUNT & AUTO [id number] 10:49:00 Test Item Value Reference Range Comments WHITE BLOOD CELL COUNT (BEAKER) (test rkwa=278) 5.6 K/ L 3.5-10.5 RED BLOOD CELL COUNT (BEAKER) (test umfl=873) 3.10 M/ L 4.63-6.08 HEMOGLOBIN (BEAKER) (test ofin=970) 9.8 GM/DL 13.7-17.5 HEMATOCRIT (BEAKER) (test ctrz=792) 29.7 % 40.1-51.0 MEAN CORPUSCULAR VOLUME (BEAKER) (test jrul=031) 95.8 fL 79.0-92.2 MEAN CORPUSCULAR HEMOGLOBIN (BEAKER) (test 31.6 pg 25.7-32.2 xygr=785) MEAN CORPUSCULAR HEMOGLOBIN CONC (BEAKER) (test 33.0 GM/DL 32.3-36.5 ygfw=681) RED CELL DISTRIBUTION WIDTH (BEAKER) (test 14.0 % 11.6-14.4 jyba=285) PLATELET COUNT (BEAKER) (test keoa=107) 171 K/CU MM 150-450 MEAN PLATELET VOLUME (BEAKER) (test jhkf=747) 11.1 fL 9.4-12.4 NUCLEATED RED BLOOD CELLS (BEAKER) (test 0 /100 WBC 0-0 jbvl=910) NEUTROPHILS RELATIVE PERCENT (BEAKER) (test 69 % kmmp=598) LYMPHOCYTES RELATIVE PERCENT (BEAKER) (test 16 % kkvz=290) MONOCYTES RELATIVE PERCENT (BEAKER) (test 10 % opxa=040) EOSINOPHILS RELATIVE PERCENT (BEAKER) (test 4 % tjtx=500) BASOPHILS RELATIVE PERCENT (BEAKER) (test 1 % omng=809) NEUTROPHILS ABSOLUTE COUNT (BEAKER) (test 3.88 K/ L 1.78-5.38 kdzc=783) LYMPHOCYTES ABSOLUTE COUNT (BEAKER) (test 0.88 K/ L 1.32-3.57 hqcs=383) MONOCYTES ABSOLUTE COUNT (BEAKER) (test 0.56 K/ L 0.30-0.82 bwgj=452) EOSINOPHILS ABSOLUTE COUNT (BEAKER) (test 0.25 K/ L 0.04-0.54 rudt=000) BASOPHILS ABSOLUTE COUNT (BEAKER) (test 0.03 K/ L 0.01-0.08 ggbm=725) IMMATURE GRANULOCYTES-RELATIVE PERCENT (BEAKER) 0 % 0-1 (test vsqa=1159)
[2018-12-13] MEDS ORDERED: ONDANSETRON 4 MG/2 ML VIAL ONE (04:19)
[2018-12-13] MEDS ORDERED: MORPHINE 4 MG/ML SYR ONE (04:19)
[2018-12-13 04:45] LABS: Absolute Lymphocytes (CBC) 0.5 K/uL (0.7-4.9); Absolute Monocytes 0.3 K/uL (0.1-1.3); Absolute Neutrophil 2.6 K/uL (1.8-8.0); Basophils % 0.8 % (0-1.3); Eosinophils % 1.5 % (0-4.4); Hematocrit 31.4 % (39.6-49.0); Lymphocytes % 14.1 % (15.3-44.8); Monocytes % 8.3 % (3.3-12.3)
[2018-12-13 04:48] LABS: Albumin 3.9 g/dL (3.4-5.0); Bilirubin Direct 0.2 mg/dL (0-0.2); Bilirubin Total 0.6 mg/dL (0.2-1.0); Potassium 4.7 mmol/L (3.5-5.1); Protein, Total 7.5 g/dL (6.4-8.2)
--- NOTE | 2018-12-13 05:46 | ER ---
Nurse's Notes [facility] Name: Blaise Quarles Age: 78 yrs Sex: Male : 1940 Arrival Date: 12/13/2018 Time: 03:36 Bed 18 Private MD: Diagnosis: Recurrent chronic abdominal pain. Chronic renal disease Presentation: 12/13 03:40 Presenting complaint: Child states: His stomach hurts and he is having a hard time ed1 breathing. Transition of care: patient was not received from another setting of care. Onset of symptoms was December 13, 2018. Risk Assessment: Do you want to hurt yourself or someone else? Patient reports no desire to harm self or others. Initial Sepsis Screen: Does the patient meet any 2 criteria? No. Patient's initial sepsis screen is negative. Does the patient have a suspected source of infection? No. Patient's initial sepsis screen is negative. Care prior to arrival: None. 03:40 Method Of Arrival: Wheelchair ed1 03:40 Acuity: SARATH 2 ed1 Triage Assessment: 03:43 General: Appears in no apparent distress. Behavior is calm, cooperative. Pain: ed1 Complains of pain in abdomen. EENT: No signs and/or symptoms were reported regarding the EENT system. Neuro: Level of Consciousness is awake, alert, obeys commands, Oriented to person, place, time, situation. Cardiovascular: Denies chest pain, Heart tones S1 S2 present. Respiratory: Reports shortness of breath at rest Airway is patent Respiratory effort is even, unlabored, Respiratory pattern is regular, symmetrical, Breath sounds are clear bilaterally. Onset: The symptoms/episode began/occurred gradually, the patient has mild shortness of breath. GI: Abdomen is flat, Bowel sounds present X 4 quads. Abd is soft and non tender X 4 quads. Reports lower abdominal pain, upper abdominal pain. : No signs and/or symptoms were reported regarding the genitourinary system. Derm: Skin is intact, is fragile, is thin, Skin is dry, Skin is normal, Skin temperature is warm. Musculoskeletal: Circulation, motion, and sensation intact. Range of motion: intact in all extremities. Historical: - Allergies: 03:43 Aspirin; ed1 - Home Meds: 03:43 amlodipine 10 mg tab 1 tab once daily [Active]; clonazepam 1 mg Oral tab 1 tab 2 times ed1 per day [Active]; nitroglycerin 0.4 mg SL subl 1 tab [Active]; Risperdal 0.5 mg Oral tab 1 tabs 2 times per day [Active]; trazodone 100 mg Oral tab 1 tab nightly [Active]; - PMHx: 03:43 Anemia; CAD; cardiomegaly; CHF; chronic renal disease; Cirrhosis; Diabetes - IDDM; ed1 Dialysis; High Cholesterol; Hypertension; Myocardial infarction; pleural effusion; pulmonary nodule; Visually impared; - PSHx: 03:43 Unable to obtain; ed1 - Immunization history:: Adult Immunizations unknown. - Social history:: Smoking status: Patient/guardian denies using tobacco. - Ebola Screening: : Patient negative for fever greater than or equal to 101.5 degrees Fahrenheit, and additional compatible Ebola Virus Disease symptoms Patient denies exposure to infectious person Patient denies travel to an Ebola-affected area in the 21 days before illness onset No symptoms or risks identified at this time. Screenin:48 Abuse screen: Denies threats or abuse. Denies injuries from another. Nutritional ed1 screening: No deficits noted. Tuberculosis screening: No symptoms or risk factors identified. Fall Risk No fall in past 12 months (0 pts). No secondary diagnosis (0 pts). No IV (0 pts). Ambulatory Aid- None/Bed Rest/Nurse Assist (0 pts). Gait- Weak (10 pts.). Mental Status- Oriented to own ability (0 pts). Total Parson Fall Scale indicates No Risk (0-24 pts). Assessment: 03:48 General: See triage assessment. Cardiovascular: Reports chest pain, Heart tones S1 S2 ed1 present Rhythm is regular. 05:31 Reassessment: Patient appears in no apparent distress at this time. Patient and/or jb4 family updated on plan of care and expected duration. Pain level reassessed. Patient is alert, oriented x 3, equal unlabored respirations, skin warm/dry/pink. Family is at the bedside. Vital Signs: 03:43 BP 160 / 74; Pulse 58; Resp 18; Temp 98(O); Pulse Ox 98% on 2 lpm NC; Weight 55.34 kg; ed1 Height 5 ft. 5 in. (165.10 cm); Pain 10/10; 05:32 BP 158 / 63; Pulse 62; Resp 16; Pulse Ox 99% on NC; mt 03:43 Body Mass Index 20.30 (55.34 kg, 165.10 cm) ed1 ED Course: 03:36 Patient arrived in ED. es 03:40 Dyan Fuentes, RN is Primary Nurse. ed1 03:41 Triage completed. ed1 03:43 Arm band placed on. ed1 03:48 Patient has correct armband on for positive identification. Side rails up X2. Adult w/ ed1 patient. Pt refuses to wear gown. Pulse ox on. NIBP on. Warm blanket given. 03:49 Pranav Thayer MD is Attending Physician. pkl 04:10 Inserted saline lock: 20 gauge in right forearm, using aseptic technique. Blood mt collected. 04:42 Primary Nurse role handed off by Dyan Fuentes, HUONG ed1 05:31 Emanuel Vincent, RN is Primary Nurse. jb4 05:58 No provider procedures requiring assistance completed. IV discontinued, intact, jb4 bleeding controlled, No redness/swelling at site. Administered Medications: 04:12 Drug: morphine 4 mg Route: IVP; Site: right forearm; ed1 04:40 Follow up: Response: No adverse reaction; Pain is decreased jb4 04:12 Drug: Zofran 4 mg Route: IVP; Site: right forearm; ed1 04:40 Follow up: Response: No adverse reaction; Nausea is decreased jb4 Outcome: 05:46 Discharge ordered by . pkl 05:58 Discharged to home via wheelchair, with family. jb4 05:58 Condition: stable 05:58 Discharge instructions given to patient, family, Instructed on discharge instructions, follow up and referral plans. medication usage, Demonstrated understanding of instructions, follow-up care, medications, Prescriptions given X 1. 05:59 Patient left the ED. jb4 Signatures: Pranav Thayer MD MD pkl Sandra Li Dyan Fuentes RN RN ed1 Emanuel Vincent RN RN jb4 Brigitte Menendez mt Corrections: (The following items were deleted from the chart) 03:48 03:43 BP 160 / 74; Pulse 58bpm; Resp 18bpm; Pulse Ox 98% 2 lpm Nasal Cannula; Pain ed1 12/20; ed1
--- NOTE | 2018-12-13 05:46 | EDPHYS ---
Physician Documentation [facility] Name: Blaise Quarles Age: 78 yrs Sex: Male : 1940 Arrival Date: 12/13/2018 Time: 03:36 Bed 18 Private MD: ED Physician Pranav Thayer HPI: 12/13 04:41 This 78 yrs old Male presents to ER via Wheelchair with complaints of pkl Breathing Difficulty, Abdominal Pain. 04:41 The patient presents with abdominal pain in the upper abdomen. Onset: The pkl symptoms/episode began/occurred just prior to arrival, 2 hour(s) ago. The symptoms do not radiate. The patient has experienced similar episodes in the past, several times. Patient was seen in ER twice for similar complaints over the past 3 weeks. Had lab. and CT Scans done and discharged from ER. Patient said pain comes and go and request for IV pain medications each time in ER. Historical: - Allergies: 03:43 Aspirin; ed1 - Home Meds: 03:43 amlodipine 10 mg tab 1 tab once daily [Active]; clonazepam 1 mg Oral tab 1 tab 2 times ed1 per day [Active]; nitroglycerin 0.4 mg SL subl 1 tab [Active]; Risperdal 0.5 mg Oral tab 1 tabs 2 times per day [Active]; trazodone 100 mg Oral tab 1 tab nightly [Active]; - PMHx: 03:43 Anemia; CAD; cardiomegaly; CHF; chronic renal disease; Cirrhosis; Diabetes - IDDM; ed1 Dialysis; High Cholesterol; Hypertension; Myocardial infarction; pleural effusion; pulmonary nodule; Visually impared; - PSHx: 03:43 Unable to obtain; ed1 - Immunization history:: Adult Immunizations unknown. - Social history:: Smoking status: Patient/guardian denies using tobacco. - Ebola Screening: : Patient negative for fever greater than or equal to 101.5 degrees Fahrenheit, and additional compatible Ebola Virus Disease symptoms Patient denies exposure to infectious person Patient denies travel to an Ebola-affected area in the 21 days before illness onset No symptoms or risks identified at this time. ROS: 04:41 Eyes: Negative for injury, pain, redness, and discharge, ENT: Negative for injury, pkl pain, and discharge, Neck: Negative for injury, pain, and swelling, Cardiovascular: Negative for chest pain, palpitations, and edema, Respiratory: Negative for shortness of breath, cough, wheezing, and pleuritic chest pain. 04:41 Abdomen/GI: Positive for abdominal pain, of the right upper quadrant and left upper quadrant. 04:41 Back: Negative for acute changes. 04:41 : Negative for urinary symptoms. 04:41 MS/extremity: Negative for acute changes. 04:41 Skin: Negative for rash. 04:41 Neuro: Negative for altered mental status. Exam: 04:41 Head/Face: Normocephalic, atraumatic. Eyes: Pupils equal round and reactive to light, pkl extra-ocular motions intact. Lids and lashes normal. Conjunctiva and sclera are non-icteric and not injected. Cornea within normal limits. Periorbital areas with no swelling, redness, or edema. ENT: Nares patent. No nasal discharge, no septal abnormalities noted. Tympanic membranes are normal and external auditory canals are clear. Oropharynx with no redness, swelling, or masses, exudates, or evidence of obstruction, uvula midline. Mucous membranes moist. Neck: Trachea midline, no thyromegaly or masses palpated, and no cervical lymphadenopathy. Supple, full range of motion without nuchal rigidity, or vertebral point tenderness. No Meningismus. Chest/axilla: Normal chest wall appearance and motion. Nontender with no deformity. No lesions are appreciated. Cardiovascular: Regular rate and rhythm with a normal S1 and S2. No gallops, murmurs, or rubs. Normal PMI, no JVD. No pulse deficits. Respiratory: Lungs have equal breath sounds bilaterally, clear to auscultation and percussion. No rales, rhonchi or wheezes noted. No increased work of breathing, no retractions or nasal flaring. 04:41 Abdomen/GI: Bowel sounds: normal, Palpation: soft, mild abdominal tenderness, in the right upper quadrant and left upper quadrant. 04:41 Back: Exam negative for acute changes. 04:41 : Exam negative for acute changes. 04:41 Musculoskeletal/extremity: Exam is negative for acute changes. 04:41 Skin: Exam negative for rash. 04:41 Neuro: Orientation: is normal, Mentation: is normal, Cranial nerves: grossly normal, Motor: is normal. Vital Signs: 03:43 BP 160 / 74; Pulse 58; Resp 18; Temp 98(O); Pulse Ox 98% on 2 lpm NC; Weight 55.34 kg; ed1 Height 5 ft. 5 in. (165.10 cm); Pain 10/10; 05:32 BP 158 / 63; Pulse 62; Resp 16; Pulse Ox 99% on NC; mt 03:43 Body Mass Index 20.30 (55.34 kg, 165.10 cm) ed1 MDM: 03:49 Patient medically screened. pkl 05:44 Data reviewed: vital signs, nurses notes. ED course: Patient feeling better Want to go pkl home. 12/13 04:01 Order name: Basic Metabolic Panel; Complete Time: 05:12 ed1 12/13 04:01 Order name: CBC with Diff; Complete Time: 05:12 ed1 12/13 04:01 Order name: Creatinine for Radiology; Complete Time: 05:12 ed1 12/13 04:01 Order name: Hepatic Function; Complete Time: 05:12 ed1 12/13 04:01 Order name: Lipase; Complete Time: 05:12 ed1 12/13 04:01 Order name: IV Saline Lock; Complete Time: 04:09 ed1 / 04:01 Order name: Labs collected and sent; Complete Time: 04:09 ed1 Administered Medications: 04:12 Drug: morphine 4 mg Route: IVP; Site: right forearm; ed1 04:40 Follow up: Response: No adverse reaction; Pain is decreased jb4 04:12 Drug: Zofran 4 mg Route: IVP; Site: right forearm; ed1 04:40 Follow up: Response: No adverse reaction; Nausea is decreased jb4 Disposition: 12/13/18 05:46 Discharged to Home. Impression: Recurrent chronic abdominal pain. Chronic renal disease. - Condition is Stable. - Prescriptions for Ultram 50 mg Oral Tablet - take 1 tablet by ORAL route every 8 hours As needed; 20 tablet. - Medication Reconciliation Form, Thank You Letter, Antibiotic Education, Prescription Opioid Use form. - Follow up: Private Physician; When: 1 - 2 days; Reason: Re-evaluation by your physician. - Problem is new. - Symptoms have improved. Signatures: Dispatcher [employer] EDMS Pranav Thayer MD MD pkl Dyan Fuentes RN RN ed1 Emanuel Vincent, RN RN jb4 Corrections: (The following items were deleted from the chart) 05:59 05:46 12/13/2018 05:46 Discharged to Home. Impression: Recurrent chronic abdominal jb4 pain. Chronic renal disease. Condition is Stable. Forms are Medication Reconciliation Form, Thank You Letter, Antibiotic Education, Prescription Opioid Use. Follow up: Private Physician; When: 1 - 2 days; Reason: Re-evaluation by your physician. Problem is new. Symptoms have improved. pkl
[2018-12-13 06:11] VITALS: TEMP 98
[2018-12-13 06:13] VITALS: BP 158/63; O2SAT 99
== END 2018-12-13 05:59 | disposition home or self-care (01) ==
LOC: ER 03:34
DX: E11.22 Type 2 diabetes mellitus with diabetic chronic kidney disease (principal); I13.11 Hypertensive heart and chronic kidney disease without heart failure, with stage 5 chronic kidney disease, or end stage renal disease; N18.6 End stage renal disease; I50.9 Heart failure, unspecified; K74.60 Unspecified cirrhosis of liver; I25.2 Old myocardial infarction; Z88.6 Allergy status to analgesic agent; Z99.2 Dependence on renal dialysis
CPT/HCPCS: 85025; 80048; 36415; 80076; 83690; 96375; 96374; 99284; J2405

== ENCOUNTER 2018-12-13 22:23 | Emergency (ER) | payer OTHER ==
--- OUTSIDE RECORDS SUMMARY | 2018-12-13 22:25 | XMS REPORT ---
:1940 [facility] Address [address] [place] [address] Dr. Manley [address] [place] [id number] Care Team Providers Name Role Phone LAZRODNEY [...] Comments CULTURE (BEAKER) (test PSEUDOMONAS 70-79,000 col/mL zgfr=1539) AERUGINOSA Pseudomonas aeruginosa Amikacin (test code=1) Susceptible [...] code=25) Resistant <0 or >4 URINALYSIS W/ [id number] 12:06:00 Test Item Value Reference Range Comments COLOR (BEAKER) (test cgem=080) Yellow CLARITY (BEAKER) (test lznd=427) Hazy SPECIFIC GRAVITY UA (BEAKER) (test zyom=684) 1.012 1.001-1.035 PH UA (BEAKER) (test spjl=395) 6.0 5.0-8.0 PROTEIN UA (BEAKER) (test eqij=523) 600 mg/dL Negative GLUCOSE UA (BEAKER) (test btna=998) 100 mg/dL Negative KETONES UA (BEAKER) (test gzqv=034) Negative Negative BILIRUBIN UA (BEAKER) (test byvl=904) Negative Negative BLOOD UA (BEAKER) (test gvsr=664) Moderate Negative NITRITE UA (BEAKER) (test dmmu=513) Negative Negative LEUKOCYTE ESTERASE UA (BEAKER) (test vzgn=640) Small Negative UROBILINOGEN UA (BEAKER) (test jfnx=208) 0.2 mg/dL 0.2-1.0 RBC UA (BEAKER) (test wxzl=794) 27 /HPF WBC UA (BEAKER) (test nnvm=932) 12 /HPF BACTERIA (BEAKER) (test wdfz=140) Occasional MUCUS (BEAKER) (test wlaw=9339) Rare SQUAMOUS EPITHELIAL (BEAKER) (test wmga=568) < /HPF HYALINE CASTS (BEAKER) (test udbc=829) 2 /LPF GRANULAR CASTS (BEAKER) (test jcuv=301) 5 /LPF SOURCE(BEAKER) (test qplr=1281) Urine, Yusuf CT, [id number] 15:15:00Reason for exam:->ABDOMINAL PAINWhat is the patient's [...] Date/ Time: 03/01/2018 15:15:27 Reading Location: [address] Body Reading Room BASIC METABOLIC [id number] 11:04:00 Test Item Value Reference Range Comments SODIUM (BEAKER) (test 136 meq/L 136-145 vatg=347) POTASSIUM (BEAKER) (test 4.0 meq/L 3.5-5.1 awpi=958) CHLORIDE (BEAKER) (test 108 meq/L 98-107 sxdb=854) CO2 (BEAKER) (test 15 meq/L 22-29 wjud=933) BLOOD UREA NITROGEN 80 mg/dL 7-21 (BEAKER) (test qbpl=218) CREATININE (BEAKER) (test 4.79 mg/dL 0.57-1.25 owrj=690) GLUCOSE RANDOM (BEAKER) 84 mg/dL 70-105 (test plde=786) CALCIUM (BEAKER) (test 8.9 mg/dL 8.4-10.2 ymjm=391) EGFR (BEAKER) (test 12 mL/min/1.73 sq m ESTIMATED GFR IS NOT lbvd=9232) ACCURATE CREATININE CLEARANCE IN PREDICTING GLOMERULAR FILTRATION RATE. ESTIMATED GFR IS NOT APPLICABLE FOR DIALYSIS PATIENTS. [id number] 11:02:00 Test Item Value Reference Range Comments LIPASE (BEAKER) (test moku=633) 61 U/L 8-78 [id number] 11:02:00 Test Item Value Reference Range Comments AMYLASE (BEAKER) (test gcjh=195) 113 U/L 25-125 HEPATIC FUNCTION [id number] 11:02:00 Test Item Value Reference Range Comments TOTAL PROTEIN (BEAKER) (test addi=970) 6.8 gm/dL 6.0-8.3 ALBUMIN (BEAKER) (test zruq=2867) 3.5 g/dL 3.5-5.0 BILIRUBIN TOTAL (BEAKER) (test ksch=585) 0.4 mg/dL 0.2-1.2 BILIRUBIN DIRECT (BEAKER) (test iygm=438) 0.2 mg/dL 0.1-0.5 ALKALINE PHOSPHATASE (BEAKER) (test katd=453) 78 U/L 40-150 AST (SGOT) (BEAKER) (test gpmq=506) 20 U/L 5-34 ALT (SGPT) (BEAKER) (test csxh=106) 21 U/L 6-55 URINALYSIS W/ [id number] 11:01:00 Test Item Value Reference Range Comments COLOR (BEAKER) (test qdql=961) Light Yellow CLARITY (BEAKER) (test aqnn=539) Clear SPECIFIC GRAVITY UA (BEAKER) (test ohqn=962) 1.006 1.001-1.035 PH UA (BEAKER) (test qxwg=647) 6.0 5.0-8.0 PROTEIN UA (BEAKER) (test qiaa=591) 300 mg/dL Negative GLUCOSE UA (BEAKER) (test yubw=268) 30 mg/dL Negative KETONES UA (BEAKER) (test tenj=360) Negative Negative BILIRUBIN UA (BEAKER) (test bjnp=752) Negative Negative BLOOD UA (BEAKER) (test hvuj=350) Trace Negative NITRITE UA (BEAKER) (test qgcm=148) Negative Negative LEUKOCYTE ESTERASE UA (BEAKER) (test ropf=065) Negative Negative UROBILINOGEN UA (BEAKER) (test uflt=576) 0.2 mg/dL 0.2-1.0 RBC UA (BEAKER) (test pjkb=668) < /HPF WBC UA (BEAKER) (test nkge=424) < /HPF BACTERIA (BEAKER) (test ltdx=426) Rare MUCUS (BEAKER) (test ojud=8238) Rare SOURCE(BEAKER) (test bzdg=3360) Urine, Voided CBC W/PLT COUNT & AUTO [id number] 10:49:00 Test Item Value Reference Range Comments WHITE BLOOD CELL COUNT (BEAKER) (test phrv=806) 5.6 K/ L 3.5-10.5 RED BLOOD CELL COUNT (BEAKER) (test wcfo=508) 3.10 M/ L 4.63-6.08 HEMOGLOBIN (BEAKER) (test pdoy=382) 9.8 GM/DL 13.7-17.5 HEMATOCRIT (BEAKER) (test ifqe=903) 29.7 % 40.1-51.0 MEAN CORPUSCULAR VOLUME (BEAKER) (test kclh=665) 95.8 fL 79.0-92.2 MEAN CORPUSCULAR HEMOGLOBIN (BEAKER) (test 31.6 pg 25.7-32.2 lfnh=137) MEAN CORPUSCULAR HEMOGLOBIN CONC (BEAKER) (test 33.0 GM/DL 32.3-36.5 gmja=305) RED CELL DISTRIBUTION WIDTH (BEAKER) (test 14.0 % 11.6-14.4 nqjm=054) PLATELET COUNT (BEAKER) (test dqol=737) 171 K/CU MM 150-450 MEAN PLATELET VOLUME (BEAKER) (test iwhn=795) 11.1 fL 9.4-12.4 NUCLEATED RED BLOOD CELLS (BEAKER) (test 0 /100 WBC 0-0 qryt=106) NEUTROPHILS RELATIVE PERCENT (BEAKER) (test 69 % wryp=749) LYMPHOCYTES RELATIVE PERCENT (BEAKER) (test 16 % eoxy=209) MONOCYTES RELATIVE PERCENT (BEAKER) (test 10 % hobj=109) EOSINOPHILS RELATIVE PERCENT (BEAKER) (test 4 % ehih=926) BASOPHILS RELATIVE PERCENT (BEAKER) (test 1 % kbyy=629) NEUTROPHILS ABSOLUTE COUNT (BEAKER) (test 3.88 K/ L 1.78-5.38 leci=389) LYMPHOCYTES ABSOLUTE COUNT (BEAKER) (test 0.88 K/ L 1.32-3.57 wtfw=354) MONOCYTES ABSOLUTE COUNT (BEAKER) (test 0.56 K/ L 0.30-0.82 gjql=532) EOSINOPHILS ABSOLUTE COUNT (BEAKER) (test 0.25 K/ L 0.04-0.54 ojqf=264) BASOPHILS ABSOLUTE COUNT (BEAKER) (test 0.03 K/ L 0.01-0.08 vurx=367) IMMATURE GRANULOCYTES-RELATIVE PERCENT (BEAKER) 0 % 0-1 (test nwqu=6097)
--- OUTSIDE RECORDS SUMMARY | 2018-12-13 22:25 | XMS REPORT | Clinical Summary ---
:1940 Author Organization [facility] Address [address] [place] [address] Care Team Providers Name Role Phone Moo [...] 452 ms QTC Calculation(Bazett) 458 ms P [place] 66 degrees R [place] -24 degrees T [place] 140 degrees Normal sinus rhythm Possible Left [...] is included. Color, UA Yellow [facility] Clarity, UA Hazy [facility] Specific Doss, UA 1.012 1.001 - 1.035 [facility] pH, UA 6.0 5.0 - 8.0 [facility] Protein, UA 600 mg/dL (A) Negative [facility] Glucose, UA 100 mg/dL (A) Negative [facility] Ketones, UA Negative Negative [facility] Bilirubin, UA Negative Negative [facility] Blood, UA Moderate (A) Negative [facility] Nitrite, UA Negative Negative [facility] Leukocytes, UA Small (A) Negative [facility] Urobilinogen, UA 0.2 0.2 - 1.0 mg/dL [facility] RBC, UA 27 /HPF [facility] WBC, UA 12 /HPF [facility] Bacteria, UA Occasional [facility] Mucus Rare [facility] Squam Epithel, UA <1 /HPF [facility] Hyaline Casts, UA 2 /LPF [facility] Granular Casts, UA 5 /LPF [facility] Specimen Source Urine, Yusuf [facility] Specimen Urine Performing Organization Address [facility] Phone Number [facility] [address], [place] [phone] [place] Urine culture (03/03/2018 11:08 AM CDT) Result PSEUDOMONAS AERUGINOSA (A) [facility] Specimen Urine Organism Antibiotic Method Susceptibility Pseudomonas [...] aeruginosa Tobramycin <=2: Susceptible Performing Organization Address [facility] [place] [place] Phone Number [address] [phone] [place] ED ECG Interpretation (03/02/2018 7:12 AM CDT) Narrative Performed At Macrina Gómez MD 03/02/20187:12 AM ECG/EKG Interpretation Date/Time: 03/01/2018 10:25 AM Performed by: MACRINA GÓMEZ. Authorized by: MACRINA GÓMEZ The ECG was interpreted by ED physician. The ECG is interpreted as sinus rhythm. Rate is normal rate. Conduction: conduction normal. ST segments abnormal. T waves abnormal. [place] is normal. Other findings: no other findings. Clinical Impression: non-specific ECG and abnormal ECG CT abdomen pelvis without contrast (03/01/2018 1:46 PM CDT) Specimen Narrative Performed At FINAL REPORT [facility] ABDOMINAL AND PELVIS CT DATED 03/01/2018 [...] MD Report Verified Date/Time:03/01/2018 15:15:27 Reading Location: [facility] B1 C013Y CT Body Reading Room Procedure [...] Verified Date/Time: 03/01/2018 15:15:27 Reading Location: [facility] C013Y CT Body Reading Room Performing Organization Address City/State/Zipcode Phone Number GE RIS CBC with platelet count + automated diff (03/01/2018 10:29 AM CDT) WBC 5.6 3.5 - 10.5 K/L [facility] RBC 3.10 (L) 4.63 - 6.08 M/L [facility] Hemoglobin 9.8 (L) 13.7 - 17.5 GM/DL [facility] Hematocrit 29.7 (L) 40.1 - 51.0 % [facility] MCV 95.8 (H) 79.0 - 92.2 fL [facility] MCH 31.6 25.7 - 32.2 pg [facility] MCHC 33.0 32.3 - 36.5 GM/DL [facility] RDW 14.0 11.6 - 14.4 % [facility] Platelets 171 150 - 450 K/CU MM [facility] MPV 11.1 9.4 - 12.4 fL [facility] nRBC 0 0 - 0 /100 WBC [facility] % Neutros 69 % [facility] % Lymphs 16 % [facility] % Monos 10 % [facility] % Eos 4 % [facility] % Baso 1 % [facility] # Neutros 3.88 1.78 - 5.38 K/L [facility] # Lymphs 0.88 (L) 1.32 - 3.57 K/L [facility] # Monos 0.56 0.30 - 0.82 K/L [facility] # Eos 0.25 0.04 - 0.54 K/L [facility] # Baso 0.03 0.01 - 0.08 K/L [facility] Immature Granulocytes-Relative 0 0 - 1 % [facility] Specimen Blood Performing Organization Address City/[facility]/Zipcode Phone Number [address] [address] CENTER Lipase (03/01/2018 10:29 AM CDT) Lipase 61 8 - 78 U/L [facility] Specimen Blood Performing Organization Address City/[facility] Phone Number [address] [address] [place] Amylase (03/01/2018 10:29 AM CDT) Amylase 113 25 - 125 U/L [facility] Specimen Blood Performing Organization Address City/[facility]/Zipcode Phone Number [address] [address] [phone] [place] Hepatic function panel (03/01/2018 10:29 AM CDT) Protein, Total 6.8 6.0 - 8.3 gm/dL [facility] Albumin 3.5 3.5 - 5.0 g/dL [facility] Total Bilirubin 0.4 0.2 - 1.2 mg/dL [facility] Bilirubin, Direct 0.2 0.1 - 0.5 mg/dL [facility] Alkaline Phosphatase 78 40 - 150 U/L [facility] AST 20 5 - 34 U/L [facility] ALT 21 6 - 55 U/L [facility] Specimen Blood Performing Organization Address City/State/Zipcode Phone Number [facility] [address] [place] [address] CENTER Basic Metabolic Panel (03/01/2018 10:29 AM CDT) Sodium 136 136 - 145 meq/L [facility] Potassium 4.0 3.5 - 5.1 meq/L [facility] Chloride 108 (H) 98 - 107 meq/L [facility] CO2 15 (L) 22 - 29 meq/L [facility] BUN 80 (H) 7 - 21 mg/dL [facility] Creatinine 4.79 (H) 0.57 - 1.25 mg/dL [facility] Glucose 84 70 - 105 mg/dL [facility] Calcium 8.9 8.4 - 10.2 mg/dL [facility] EGFR 12Comment: ESTIMATED GFR IS mL/min/1.73 sq m [facility] NOT ACCURATE CREATININE [facility] CENTER CLEARANCE IN PREDICTING GLOMERULAR FILTRATION RATE. ESTIMATED GFR IS NOT APPLICABLE FOR DIALYSIS PATIENTS. Specimen Blood Performing Organization Address City/[facility] Phone Number [facility] [address] [place] [address] [phone] [place] ECG 12 lead (03/01/2018 10:20 AM CDT) Specimen Narrative Performed At Ventricular Rate 62 BPM GE MUSE Atrial Rate 62 BPM P-R Interval 178 ms QRS Duration 96 ms Q-T Interval 452 ms QTC Calculation(Bazett) 458 ms P [place] 66 degrees R [place] -24 degrees T [place] 140 degrees Normal sinus rhythm Possible Left [...] 452 ms QTC Calculation(Bazett) 458 ms P [place] 66 degrees R [place] -24 degrees T [place] 140 degrees Normal sinus rhythm Possible Left [...] Medicaid Advance Directives For more information, please contact:[address] [phone] Code Status Date Activated Date Inactivated Comments [...]
[2018-12-13 23:26] LABS: Absolute Lymphocytes (CBC) 0.5 K/uL (0.7-4.9); Absolute Monocytes 0.3 K/uL (0.1-1.3); Absolute Neutrophil 2.9 K/uL (1.8-8.0); Basophils % 0.8 % (0-1.3); Eosinophils % 2.3 % (0-4.4); Hematocrit 31.1 % (39.6-49.0); Lymphocytes % 12.2 % (15.3-44.8); Monocytes % 6.8 % (3.3-12.3); RBC Red Blood Cell Count 3.04 M/uL (4.33-5.43)
[2018-12-13] MEDS ORDERED: ONDANSETRON 4 MG/2 ML VIAL ONE (23:33)
[2018-12-13] MEDS ORDERED: MORPHINE 4 MG/ML SYR ONE (23:33)
[2018-12-13 23:44] LABS: Albumin 3.9 g/dL (3.4-5.0); Bilirubin Direct 0.2 mg/dL (0-0.2); Bilirubin Total 0.6 mg/dL (0.2-1.0); Protein, Total 7.8 g/dL (6.4-8.2); Troponin I 0.02 ng/mL (0.0-0.045)
--- NOTE | 2018-12-14 01:13 | ER ---
Nurse's Notes [facility] Name: Blaise Quarles Age: 78 yrs Sex: Male : 1940 Arrival Date: 12/13/2018 Time: 22:27 Bed 19 Private MD: Diagnosis: Chest pain. Recurrent abdominal pain Presentation: 12/13 22:39 Presenting complaint: Patient states: Pt complaining of chest pain and abdominal pain, ea pt reports pain started yesterday he came to ED yesterday with same symptoms and was prescribed tramadol. Pt reports the pain is the same as yesterday. Transition of care: patient was not received from another setting of care. Onset of symptoms was December 13, 2018. Risk Assessment: Do you want to hurt yourself or someone else? Patient reports no desire to harm self or others. Initial Sepsis Screen: Does the patient meet any 2 criteria? No. Patient's initial sepsis screen is negative. Does the patient have a suspected source of infection? No. Patient's initial sepsis screen is negative. Care prior to arrival: Medication(s) given: Tramadol. 22:39 Method Of Arrival: Wheelchair ea 22:39 Acuity: SARATH 3 ea Triage Assessment: 22:46 General: Appears uncomfortable, Behavior is restless. Pain: Complains of pain in chest ea and abdomen. Cardiovascular: Patient's skin is warm and dry. Historical: - Allergies: 22:45 Aspirin; ea - Home Meds: 22:45 amlodipine 10 mg tab 1 tab once daily [Active]; clonazepam 1 mg Oral tab 1 tab 2 times ea per day [Active]; nitroglycerin 0.4 mg SL subl 1 tab [Active]; Risperdal 0.5 mg Oral tab 1 tabs 2 times per day [Active]; trazodone 100 mg Oral tab 1 tab nightly [Active]; - PMHx: 22:45 Visually impared; Anemia; CAD; cardiomegaly; CHF; chronic renal disease; Cirrhosis; ea Diabetes - IDDM; Dialysis; Hypertension; Myocardial infarction; High Cholesterol; pulmonary nodule; pleural effusion; - Immunization history:: Adult Immunizations up to date. - Social history:: Smoking status: Patient/guardian denies using tobacco. - Ebola Screening: : No symptoms or risks identified at this time. Screenin:43 Abuse screen: Denies threats or abuse. Nutritional screening: No deficits noted. ea Tuberculosis screening: No symptoms or risk factors identified. Fall Risk Secondary diagnosis (15 points) impaired mobility. Assessment: 23:25 General: Appears in no apparent distress. uncomfortable, Behavior is calm, cooperative, jb4 appropriate for age. Pain: Complains of pain in chest and abdomen Pain does not radiate. Pain currently is 10 out of 10 on a pain scale. Quality of pain is described as It just hurts Pain began 5pm Is continuous. Neuro: Level of Consciousness is awake, alert, obeys commands, Oriented to person, place, time, situation. Cardiovascular: Patient's skin is warm and dry. Respiratory: Airway is patent Respiratory effort is even, unlabored, Respiratory pattern is regular, symmetrical. GI: Reports lower abdominal pain, upper abdominal pain. : No signs and/or symptoms were reported regarding the genitourinary system. EENT: No signs and/or symptoms were reported regarding the EENT system. Derm: Skin is intact, Skin is pink, warm \T\ dry. Musculoskeletal: Circulation, motion, and sensation intact. 12/14 00:00 Reassessment: Patient appears in no apparent distress at this time. Patient and/or jb4 family updated on plan of care and expected duration. Pain level reassessed. Patient is alert, oriented x 3, equal unlabored respirations, skin warm/dry/pink. Patient states feeling better. 01:30 Reassessment: Patient and/or family updated on plan of care and expected duration. Pain ea level reassessed. Patient is alert, oriented x 3, equal unlabored respirations, skin warm/dry/pink. Discharge instructions given to patient, verbalized the understanding of instruction. Pt left ED per wheelchair accompanied by family, pt tolerating well Patient states feeling better. Vital Signs: 12/13 22:42 BP 178 / 71; Pulse 57; Resp 19; Temp 98.8; Pulse Ox 97% on R/A; Weight 54.88 kg; Height ea 5 ft. 5 in. (165.10 cm); Pain 10/10; 12/14 00:00 BP 170 / 65; Pulse 57; Resp 22; Pulse Ox 91% on 2 lpm NC; jb4 01:15 BP 178 / 70; Pulse 62; Resp 19; Temp 97.6; Pulse Ox 96% on 2 lpm NC; ea 12/13 22:42 Body Mass Index 20.14 (54.88 kg, 165.10 cm) ea ED Course: 12/13 22:27 Patient arrived in ED. am2 22:42 Triage completed. ea 22:44 Patient has correct armband on for positive identification. Bed in low position. Call ea light in reach. Side rails up X2. 22:45 Arm band placed on right wrist. Patient placed in an exam room, on a stretcher, on ea oxygen, on court monitor, on pulse oximetry. 22:45 quality assurance monitor final on. Pulse ox on. NIBP on. jb4 22:45 EKG done, by ED staff. ea 22:45 Patient maintains SpO2 saturation greater than 95% on room air. jb4 22:48 Pranav Thayer MD is Attending Physician. pkl 22:52 Emanuel Vincent, RN is Primary Nurse. jb4 12/14 01:20 No provider procedures requiring assistance completed. IV discontinued, intact, jb4 bleeding controlled, No redness/swelling at site. Administered Medications: 12/13 23:21 Drug: Zofran 4 mg Route: IVP; Site: left antecubital; jb4 23:51 Follow up: Response: No adverse reaction; Nausea is decreased jb4 23:23 Drug: morphine 4 mg Route: IVP; Site: left antecubital; jb4 23:53 Follow up: Response: No adverse reaction; Pain is decreased jb4 Outcome: 12/14 01:12 Discharge ordered by . pktrip 01:31 Discharged to home via wheelchair, with family. ea 01:31 Condition: improved 01:31 Discharge instructions given to patient, family, Instructed on discharge instructions, follow up and referral plans. Demonstrated understanding of instructions, follow-up care. 01:32 Patient left the ED. ea Signatures: Pranav Thayer MD MD pkEmanuel Cobos, RN RN jb4 Juliana Rushing Elena RN RN shahid
--- NOTE | 2018-12-14 01:14 | EDPHYS ---
Physician Documentation [facility] Name: Blaise Quarles Age: 78 yrs Sex: Male : 1940 Arrival Date: 12/13/2018 Time: 22:27 Bed 19 Private MD: ED Physician Pranav Thayer HPI: 12/13 23:40 This 78 yrs old Male presents to ER via Wheelchair with complaints of Chest pkl Pain, Abdominal Pain. 23:40 The patient or guardian reports chest pain that is located primarily in the substernal pkl area. Onset: just prior to arrival, 1 hour(s) ago. The pain does not radiate. Associated signs and symptoms: Pertinent positives: abdominal pain. The chest pain is described as a pressure. The patient has experienced similar episodes in the past, several times. The patient has been recently seen at the [facility] Emergency Department, yesterday, for similar complaints. Historical: - Allergies: 22:45 Aspirin; ea - Home Meds: 22:45 amlodipine 10 mg tab 1 tab once daily [Active]; clonazepam 1 mg Oral tab 1 tab 2 times ea per day [Active]; nitroglycerin 0.4 mg SL subl 1 tab [Active]; Risperdal 0.5 mg Oral tab 1 tabs 2 times per day [Active]; trazodone 100 mg Oral tab 1 tab nightly [Active]; - PMHx: 22:45 Visually impared; Anemia; CAD; cardiomegaly; CHF; chronic renal disease; Cirrhosis; ea Diabetes - IDDM; Dialysis; Hypertension; Myocardial infarction; High Cholesterol; pulmonary nodule; pleural effusion; - Immunization history:: Adult Immunizations up to date. - Social history:: Smoking status: Patient/guardian denies using tobacco. - Ebola Screening: : No symptoms or risks identified at this time. ROS: 23:40 Eyes: Negative for injury, pain, redness, and discharge, ENT: Negative for injury, pkl pain, and discharge, Neck: Negative for injury, pain, and swelling. 23:40 Cardiovascular: Positive for chest pain. 23:40 Respiratory: Negative for cough, shortness of breath. 23:40 Abdomen/GI: Positive for abdominal pain, of the right upper quadrant and left upper quadrant. 23:40 Back: Negative for acute changes. 23:40 : Negative for urinary symptoms. 23:40 MS/extremity: Negative for acute changes. 23:40 Skin: Negative for rash. 23:40 Neuro: Negative for altered mental status. Exam: 23:40 Head/Face: Normocephalic, atraumatic. Eyes: Pupils equal round and reactive to light, pkl extra-ocular motions intact. Lids and lashes normal. Conjunctiva and sclera are non-icteric and not injected. Cornea within normal limits. Periorbital areas with no swelling, redness, or edema. ENT: Nares patent. No nasal discharge, no septal abnormalities noted. Tympanic membranes are normal and external auditory canals are clear. Oropharynx with no redness, swelling, or masses, exudates, or evidence of obstruction, uvula midline. Mucous membranes moist. Neck: Trachea midline, no thyromegaly or masses palpated, and no cervical lymphadenopathy. Supple, full range of motion without nuchal rigidity, or vertebral point tenderness. No Meningismus. Chest/axilla: Normal chest wall appearance and motion. Nontender with no deformity. No lesions are appreciated. Cardiovascular: Regular rate and rhythm with a normal S1 and S2. No gallops, murmurs, or rubs. Normal PMI, no JVD. No pulse deficits. Respiratory: Lungs have equal breath sounds bilaterally, clear to auscultation and percussion. No rales, rhonchi or wheezes noted. No increased work of breathing, no retractions or nasal flaring. 23:40 Abdomen/GI: Bowel sounds: normal, Palpation: soft, mild abdominal tenderness, in the right upper quadrant and left upper quadrant. 23:40 Back: Exam negative for acute changes. 23:40 : Exam negative for acute changes. 23:40 Musculoskeletal/extremity: Exam is negative for acute changes. 23:40 Skin: Exam negative for rash. 23:40 Neuro: Orientation: is normal, Mentation: is normal, Cranial nerves: grossly normal, Motor: is normal. Vital Signs: 22:42 BP 178 / 71; Pulse 57; Resp 19; Temp 98.8; Pulse Ox 97% on R/A; Weight 54.88 kg; Height ea 5 ft. 5 in. (165.10 cm); Pain 10/10; 06/04 00:00 BP 170 / 65; Pulse 57; Resp 22; Pulse Ox 91% on 2 lpm NC; jb4 01:15 BP 178 / 70; Pulse 62; Resp 19; Temp 97.6; Pulse Ox 96% on 2 lpm NC; ea 12/13 22:42 Body Mass Index 20.14 (54.88 kg, 165.10 cm) ea MDM: 12/13 22:48 Patient medically screened. pkl 12/14 01:10 Data reviewed: vital signs, nurses notes, lab test result(s), radiologic studies, CT pkl scan. 12/13 22:59 Order name: CBC with Diff pkl 12/13 22:59 Order name: Chem 7 pkl 12/13 22:59 Order name: LFT's pkl 12/13 22:59 Order name: Lipase pkl 12/13 22:59 Order name: Troponin (emerg Dept Use Only) pkl 12/13 23:32 Order name: CBC with Automated Diff; Complete Time: 00:35 EDMS 12/13 22:59 Order name: EKG; Complete Time: 05:08 pkl 12/13 23:46 Order name: Basic Metabolic Panel; Complete Time: 00:35 EDMS 12/13 23:46 Order name: Liver (Hepatic) Function; Complete Time: 00:35 EDMS 12/13 23:46 Order name: Troponin I; Complete Time: 00:35 EDMS 12/13 23:46 Order name: Lipase; Complete Time: 00:35 EDMS 12/13 22:59 Order name: Saline Lock; Complete Time: 23:14 pkl Administered Medications: 12/13 23:21 Drug: Zofran 4 mg Route: IVP; Site: left antecubital; jb4 23:51 Follow up: Response: No adverse reaction; Nausea is decreased jb4 23:23 Drug: morphine 4 mg Route: IVP; Site: left antecubital; jb4 23:53 Follow up: Response: No adverse reaction; Pain is decreased jb4 Disposition: 12/14/18 01:12 Discharged to Home. Impression: Chest pain. Recurrent abdominal pain. - Condition is Stable. - Medication Reconciliation Form, Thank You Letter, Antibiotic Education, Prescription Opioid Use form. - Follow up: Private Physician; When: 1 - 2 days; Reason: Re-evaluation by your physician. - Problem is chronic. - Symptoms have improved. Signatures: Dispatcher [employer] EDPranav Molina MD MD pkl Emanuel Vincent, RN RN jb4 Anusha Redd, RN RN ea Corrections: (The following items were deleted from the chart) 12/14 01:32 01:12 12/14/2018 01:12 Discharged to Home. Impression: Chest pain. Recurrent abdominal ea pain. Condition is Stable. Forms are Medication Reconciliation Form, Thank You Letter, Antibiotic Education, Prescription Opioid Use. Follow up: Private Physician; When: 1 - 2 days; Reason: Re-evaluation by your physician. Problem is chronic. Symptoms have improved. pkl
[2018-12-14 02:28] VITALS: BP 178/70; TEMP 97.6; O2SAT 96
--- NOTE | 2018-12-14 11:37 | EKG ---
Test Date: 2018-12-13 Test Time: 22:38:24 Plant Biology Professor: DAMARIS MEASUREMENT RESULTS: Intervals: Rate: 57 FL: 170 QRSD: 104 QT: 460 QTc: 447 [place]: P: 39 FL: 170 QRS: -37 T: 114 INTERPRETIVE STATEMENTS: Sinus bradycardia with premature supraventricular complexes Possible Left atrial enlargement Left axis deviation Anteroseptal infarct, age undetermined T wave abnormality, consider lateral ischemia Abnormal ECG Compared to ECG 12/08/2018 11:44:45 Atrial premature complex(es) now present Sinus rhythm no longer present Myocardial infarct finding still present T-wave abnormality still present Possible ischemia still present Electronically Signed On 12-14-18 11:35:52 CDT by Brandon Pérez
--- NOTE | 2018-12-15 13:21 | RAD REPORT ---
EXAM DESCRIPTION: CT - CT CHEST,ABD,PELVIS W/O - 12/14/2018 4:13 am CLINICAL HISTORY: 78 years Male chest pain COMPARISON: November 27, 2018 TECHNIQUE: Images were obtained in axial, sagittal, and coronal planes. No intravenous contrast was administered. This exam was performed according to our departmental dose-optimization program which includes use of Automated Exposure Control, adjustment of the mA and/or kV according to patient size and/or use of i terative reconstruction technique. FINDINGS: CT chest: No dilatation aortic root. Marked coronary artery calcification. Enlarged heart. No pericardial effusion. Moderate to large right pleural effusion. Moderate left pleural effusion. N o pneumothorax. Airspace attenuation lower lobes bilaterally left greater than right as well as right middle lobe unchanged when correlated with the prior study. Mild mediastinal adenopathy unchanged. P rior median sternotomy. No acute osseous abnormality. Right central venous catheter is present with t he tip seen at the atrial caval junction. CT abdomen and pelvis: No abnormality involving the liver, spleen, pancreas, or adrenal glands bilate rally. Mildly distended gallbladder unchanged. No obstructing renal calcifications bilaterally. No hy dronephrosis bilaterally. Mild renal parenchymal thinning bilaterally. Incompletely distended bladder . Minimal intraperitoneal fluid. Calcification abdominal aorta with no dilatation. Extensive vascular calcification otherwise noted. Appendix not well identified however no secondary signs for appendici tis. No bowel obstruction, perforation, or inflammation. Grade 1 spondylolisthesis L4-5 with moderate broad-based protrusion unroofed L4-5 intervertebral disc. Associated moderate narrowing of bilateral canal. Diffuse bulging L3-4 intervertebral disc IMPRESSION: Enlarged heart with moderate to large right pleural effusion and moderate left pleural e ffusion. Infiltrate and atelectatic change right lower lobe and right middle lobe as well as left low er lobe. These findings are unchanged when correlated with the prior study. Mild intraperitoneal fluid unchanged. No acute intra-abdominal abnormality. Grade 1 spondylolisthesis L4-5 with moderate broad-based protrusion unroofed L4-5 intervertebral disc and moderate narrowing o f spinal canal. Electronically signed by: Miriam Oviedo MD 12/14/2018 12:08 AM CDT Due to temporary technical issues with the PACS/Fluency reporting system, reports are being signed by the in house radiologist as a courtesy to ensure prompt reporting. The interpreting radiologist is f ully responsible for the content of the report.
== END 2018-12-14 01:32 | disposition home or self-care (01) ==
LOC: ER 22:23
DX: R10.10 Upper abdominal pain, unspecified (principal); E11.22 Type 2 diabetes mellitus with diabetic chronic kidney disease; I12.0 Hypertensive chronic kidney disease with stage 5 chronic kidney disease or end stage renal disease; N18.6 End stage renal disease; I25.2 Old myocardial infarction; Z88.6 Allergy status to analgesic agent; Z99.2 Dependence on renal dialysis
CPT/HCPCS: 93005; 85025; 80048; 36415; 80076; 84484; 83690; 71250; 74176; J2405; 96374; 96375; 99284

== ENCOUNTER 2018-12-22 16:29 | Emergency (ER) | payer OTHER ==
--- OUTSIDE RECORDS SUMMARY | 2018-12-22 16:33 | XMS REPORT | Clinical Summary ---
:1940 Author Organization [facility] Address [address] [place] [address] Care Team Providers Name Role Phone Moo [...] 03/01/2018 Orders Only General Internal Medicine after 12/21/2017 Family History Medical History Relation Name Comments [...] 452 ms QTC Calculation(Bazett) 458 ms P [place] 66 degrees R [place] -24 degrees T [place] 140 degrees Normal sinus rhythm Possible Left [...] MICROSCOPIC STAT 03/01/2018 10:19 AM CDT after 12/21/2017 Results Urinalysis w/Microscopic (03/03/2018 11:08 AM CDT)Only the most recent of2 resultswithin the time period is included. Color, UA Yellow [facility] Clarity, UA Hazy [facility] Specific [place], UA 1.012 1.001 - 1.035 [facility] pH, UA 6.0 5.0 - 8.0 [facility] Protein, UA 600 mg/dL (A) Negative [facility] Glucose, UA 100 mg/dL (A) Negative [facility] Ketones, UA Negative Negative [facility] Bilirubin, UA Negative Negative [facility] Blood, UA Moderate (A) Negative [facility] Nitrite, UA Negative Negative [facility] Leukocytes, UA Small (A) Negative [facility] Urobilinogen, UA 0.2 0.2 - 1.0 mg/dL [facility] RBC, UA 27 /HPF [facility] WBC, UA 12 /HPF [facility] Bacteria, UA Occasional [facility] Mucus Rare [facility] Squam Epithel, UA <1 /HPF [facility] Hyaline Casts, UA 2 /LPF [facility] Granular Casts, UA 5 /LPF [facility] Specimen Source Urine, Yusuf [facility] Specimen Urine Performing Organization Address [facility] Phone Number [facility] [address] [place], [place] [phone] [place] Urine culture (03/03/2018 11:08 AM CDT) Result PSEUDOMONAS AERUGINOSA (A) [facility] Specimen Urine Organism Antibiotic Method [...] Organization Address [facility] Phone Number [address] [phone] [place] ED ECG Interpretation (03/02/2018 7:12 AM CDT) Narrative Performed At Macrina Gómez MD 03/02/20187:12 AM ECG/EKG Interpretation Date/Time: 03/01/2018 10:25 AM Performed by: MACRINA GÓMEZ. Authorized by: MACRINA GÓMEZ The ECG was interpreted by ED physician. The ECG is interpreted as sinus rhythm. Rate is normal rate. Conduction: conduction normal. ST segments abnormal. T waves abnormal. [place] is normal. Other findings: no other findings. Clinical Impression: non-specific ECG and abnormal ECG CT abdomen pelvis without contrast (03/01/2018 1:46 PM CDT) Specimen Narrative Performed At FINAL REPORT [employer] [facility] ABDOMINAL AND PELVIS CT DATED [...] MD Report Verified Date/Time:03/01/2018 15:15:27 Reading Location: [facility] B1 C013Y CT Body Reading Room Procedure [...] Verified Date/Time: 03/01/2018 15:15:27 Reading Location: [facility] C013Y CT Body Reading Room Performing Organization Address City/State/Zipcode Phone Number GE RIS CBC with platelet count + automated diff (03/01/2018 10:29 AM CDT) WBC 5.6 3.5 - 10.5 K/L [facility] RBC 3.10 (L) 4.63 - 6.08 M/L [facility] Hemoglobin 9.8 (L) 13.7 - 17.5 GM/DL [facility] Hematocrit 29.7 (L) 40.1 - 51.0 % [facility] MCV 95.8 (H) 79.0 - 92.2 fL [facility] MCH 31.6 25.7 - 32.2 pg [facility] MCHC 33.0 32.3 - 36.5 GM/DL [facility] RDW 14.0 11.6 - 14.4 % [facility] Platelets 171 150 - 450 K/CU MM [facility] MPV 11.1 9.4 - 12.4 fL [facility] nRBC 0 0 - 0 /100 WBC [facility] % Neutros 69 % [facility] % Lymphs 16 % [facility] % Monos 10 % [facility] % Eos 4 % [facility] % Baso 1 % [facility] # Neutros 3.88 1.78 - 5.38 K/L [facility] # Lymphs 0.88 (L) 1.32 - 3.57 K/L [facility] # Monos 0.56 0.30 - 0.82 K/L [facility] # Eos 0.25 0.04 - 0.54 K/L [facility] # Baso 0.03 0.01 - 0.08 K/L [facility] Immature Granulocytes-Relative 0 0 - 1 % [facility] Specimen Blood Performing Organization Address City/[facility]/Zipcode Phone Number [address] [address] CENTER Lipase (03/01/2018 10:29 AM CDT) Lipase 61 8 - 78 U/L [facility] Specimen Blood Performing Organization Address City/[facility] Phone Number [address] [address] [phone] [place] Amylase (03/01/2018 10:29 AM CDT) Amylase 113 25 - 125 U/L [facility] Specimen Blood Performing Organization Address City/[facility]/Zipcode Phone Number [address] [address] [place] Hepatic function panel (03/01/2018 10:29 AM CDT) Protein, Total 6.8 6.0 - 8.3 gm/dL [facility] Albumin 3.5 3.5 - 5.0 g/dL [facility] Total Bilirubin 0.4 0.2 - 1.2 mg/dL [facility] Bilirubin, Direct 0.2 0.1 - 0.5 mg/dL [facility] Alkaline Phosphatase 78 40 - 150 U/L [facility] AST 20 5 - 34 U/L [facility] ALT 21 6 - 55 U/L [facility] Specimen Blood Performing Organization Address City/State/Zipcode Phone Number [facility] [address] [place] [address] CENTER Basic Metabolic Panel (03/01/2018 10:29 AM CDT) Sodium 136 136 - 145 meq/L [facility] Potassium 4.0 3.5 - 5.1 meq/L [facility] Chloride 108 (H) 98 - 107 meq/L [facility] CO2 15 (L) 22 - 29 meq/L [facility] BUN 80 (H) 7 - 21 mg/dL [facility] Creatinine 4.79 (H) 0.57 - 1.25 mg/dL [facility] Glucose 84 70 - 105 mg/dL [facility] Calcium 8.9 8.4 - 10.2 mg/dL [facility] EGFR 12Comment: ESTIMATED GFR IS mL/min/1.73 sq m [facility] NOT ACCURATE CREATININE [facility] CLEARANCE IN PREDICTING GLOMERULAR FILTRATION RATE. ESTIMATED GFR IS NOT APPLICABLE FOR DIALYSIS PATIENTS. Specimen Blood Performing Organization Address City/[facility] Phone Number [facility] [address] [place] [address] [place] ECG 12 lead (03/01/2018 10:20 AM CDT) Specimen Narrative Performed At Ventricular Rate 62 BPM [facility] Atrial Rate 62 BPM P-R Interval 178 ms QRS Duration 96 ms Q-T Interval 452 ms QTC Calculation(Bazett) 458 ms P [place] 66 degrees R [place] -24 degrees T [place] 140 degrees Normal sinus rhythm Possible Left [...] 452 ms QTC Calculation(Bazett) 458 ms P [place] 66 degrees R [place] -24 degrees T [place] 140 degrees Normal sinus rhythm Possible Left [...] Address City/State/Zipcode Phone Number GE MUSE after 12/21/2017 Insurance Payer Benefit Plan / Group Subscriber ID Type Phone Address MEDICARE MEDICARE A B xxxxxxxxxx Medicare MEDICAID [place] xxxxxxxxx Medicaid Advance Directives For more information, please contact:[address] [phone] Code Status Date Activated Date Inactivated Comments [...]
--- OUTSIDE RECORDS SUMMARY | 2018-12-22 16:33 | XMS REPORT ---
:1940 Author Organization [facility] Address [address] [place] [address] Dr. Manley [address] [place] [id number] Care Team Providers Name Role Phone LAZRODNEY [...] Comments CULTURE (BEAKER) (test PSEUDOMONAS 70-79,000 col/mL wvcf=8542) AERUGINOSA Pseudomonas aeruginosa Amikacin (test code=1) Susceptible [...] code=25) Resistant <0 or >4 URINALYSIS W/ [id number] 12:06:00 Test Item Value Reference Range Comments COLOR (BEAKER) (test ymue=818) Yellow CLARITY (BEAKER) (test lrys=588) Hazy SPECIFIC GRAVITY UA (BEAKER) (test euyv=195) 1.012 1.001-1.035 PH UA (BEAKER) (test onif=651) 6.0 5.0-8.0 PROTEIN UA (BEAKER) (test ohko=984) 600 mg/dL Negative GLUCOSE UA (BEAKER) (test lswz=909) 100 mg/dL Negative KETONES UA (BEAKER) (test pyds=702) Negative Negative BILIRUBIN UA (BEAKER) (test wgun=742) Negative Negative BLOOD UA (BEAKER) (test xcwp=285) Moderate Negative NITRITE UA (BEAKER) (test raaq=057) Negative Negative LEUKOCYTE ESTERASE UA (BEAKER) (test wksw=266) Small Negative UROBILINOGEN UA (BEAKER) (test wqrk=522) 0.2 mg/dL 0.2-1.0 RBC UA (BEAKER) (test jrfd=540) 27 /HPF WBC UA (BEAKER) (test cnde=398) 12 /HPF BACTERIA (BEAKER) (test dgdk=898) Occasional MUCUS (BEAKER) (test seam=8987) Rare SQUAMOUS EPITHELIAL (BEAKER) (test hqjv=324) < /HPF HYALINE CASTS (BEAKER) (test xczg=419) 2 /LPF GRANULAR CASTS (BEAKER) (test durw=082) 5 /LPF SOURCE(BEAKER) (test hqbo=2604) Urine, Yusuf CT, [id number] 15:15:00Reason for exam:->ABDOMINAL PAINWhat is the patient's [...] Verified Date/ Time: 03/01/2018 15:15:27 Reading Location: [address] Body Reading Room BASIC METABOLIC [id number] 11:04:00 Test Item Value Reference Range Comments SODIUM (BEAKER) (test 136 meq/L 136-145 cqtr=829) POTASSIUM (BEAKER) (test 4.0 meq/L 3.5-5.1 hztu=858) CHLORIDE (BEAKER) (test 108 meq/L 98-107 aenx=034) CO2 (BEAKER) (test 15 meq/L 22-29 yqts=518) BLOOD UREA NITROGEN 80 mg/dL 7-21 (BEAKER) (test xnht=651) CREATININE (BEAKER) (test 4.79 mg/dL 0.57-1.25 aqyp=793) GLUCOSE RANDOM (BEAKER) 84 mg/dL 70-105 (test wora=371) CALCIUM (BEAKER) (test 8.9 mg/dL 8.4-10.2 ramn=646) EGFR (BEAKER) (test 12 mL/min/1.73 sq m ESTIMATED GFR IS NOT kfaj=1381) ACCURATE CREATININE CLEARANCE IN PREDICTING GLOMERULAR FILTRATION RATE. ESTIMATED GFR IS NOT APPLICABLE FOR DIALYSIS PATIENTS. [id number] 11:02:00 Test Item Value Reference Range Comments LIPASE (BEAKER) (test bunq=041) 61 U/L 8-78 [id number] 11:02:00 Test Item Value Reference Range Comments AMYLASE (BEAKER) (test ygrz=243) 113 U/L 25-125 HEPATIC FUNCTION [id number] 11:02:00 Test Item Value Reference Range Comments TOTAL PROTEIN (BEAKER) (test wgpk=090) 6.8 gm/dL 6.0-8.3 ALBUMIN (BEAKER) (test qeye=4949) 3.5 g/dL 3.5-5.0 BILIRUBIN TOTAL (BEAKER) (test qwxw=311) 0.4 mg/dL 0.2-1.2 BILIRUBIN DIRECT (BEAKER) (test rrge=274) 0.2 mg/dL 0.1-0.5 ALKALINE PHOSPHATASE (BEAKER) (test wzfg=002) 78 U/L 40-150 AST (SGOT) (BEAKER) (test chee=795) 20 U/L 5-34 ALT (SGPT) (BEAKER) (test xuln=381) 21 U/L 6-55 URINALYSIS W/ [id number] 11:01:00 Test Item Value Reference Range Comments COLOR (BEAKER) (test zruk=443) Light Yellow CLARITY (BEAKER) (test eayr=851) Clear SPECIFIC GRAVITY UA (BEAKER) (test dmmc=962) 1.006 1.001-1.035 PH UA (BEAKER) (test jssl=773) 6.0 5.0-8.0 PROTEIN UA (BEAKER) (test yxdq=463) 300 mg/dL Negative GLUCOSE UA (BEAKER) (test esty=695) 30 mg/dL Negative KETONES UA (BEAKER) (test uxhe=417) Negative Negative BILIRUBIN UA (BEAKER) (test stct=858) Negative Negative BLOOD UA (BEAKER) (test west=528) Trace Negative NITRITE UA (BEAKER) (test wnnd=922) Negative Negative LEUKOCYTE ESTERASE UA (BEAKER) (test xxgz=877) Negative Negative UROBILINOGEN UA (BEAKER) (test kuqb=832) 0.2 mg/dL 0.2-1.0 RBC UA (BEAKER) (test ypnf=566) < /HPF WBC UA (BEAKER) (test gygy=789) < /HPF BACTERIA (BEAKER) (test sdde=864) Rare MUCUS (BEAKER) (test wvtr=8443) Rare SOURCE(BEAKER) (test urlc=2737) Urine, Voided CBC W/PLT COUNT & AUTO [id number] 10:49:00 Test Item Value Reference Range Comments WHITE BLOOD CELL COUNT (BEAKER) (test ggyo=163) 5.6 K/ L 3.5-10.5 RED BLOOD CELL COUNT (BEAKER) (test vqtp=077) 3.10 M/ L 4.63-6.08 HEMOGLOBIN (BEAKER) (test inae=743) 9.8 GM/DL 13.7-17.5 HEMATOCRIT (BEAKER) (test yyjg=189) 29.7 % 40.1-51.0 MEAN CORPUSCULAR VOLUME (BEAKER) (test xpyv=543) 95.8 fL 79.0-92.2 MEAN CORPUSCULAR HEMOGLOBIN (BEAKER) (test 31.6 pg 25.7-32.2 knhv=253) MEAN CORPUSCULAR HEMOGLOBIN CONC (BEAKER) (test 33.0 GM/DL 32.3-36.5 phjl=617) RED CELL DISTRIBUTION WIDTH (BEAKER) (test 14.0 % 11.6-14.4 zyzq=511) PLATELET COUNT (BEAKER) (test lwje=607) 171 K/CU MM 150-450 MEAN PLATELET VOLUME (BEAKER) (test nced=481) 11.1 fL 9.4-12.4 NUCLEATED RED BLOOD CELLS (BEAKER) (test 0 /100 WBC 0-0 himf=766) NEUTROPHILS RELATIVE PERCENT (BEAKER) (test 69 % aihn=874) LYMPHOCYTES RELATIVE PERCENT (BEAKER) (test 16 % wrdq=333) MONOCYTES RELATIVE PERCENT (BEAKER) (test 10 % kcps=502) EOSINOPHILS RELATIVE PERCENT (BEAKER) (test 4 % iymu=522) BASOPHILS RELATIVE PERCENT (BEAKER) (test 1 % bivb=540) NEUTROPHILS ABSOLUTE COUNT (BEAKER) (test 3.88 K/ L 1.78-5.38 digb=490) LYMPHOCYTES ABSOLUTE COUNT (BEAKER) (test 0.88 K/ L 1.32-3.57 hpbh=405) MONOCYTES ABSOLUTE COUNT (BEAKER) (test 0.56 K/ L 0.30-0.82 qkbh=837) EOSINOPHILS ABSOLUTE COUNT (BEAKER) (test 0.25 K/ L 0.04-0.54 czxh=233) BASOPHILS ABSOLUTE COUNT (BEAKER) (test 0.03 K/ L 0.01-0.08 qshp=854) IMMATURE GRANULOCYTES-RELATIVE PERCENT (BEAKER) 0 % 0-1 (test tjet=1468)
--- NOTE | 2018-12-22 17:34 | RAD REPORT ---
EXAM DESCRIPTION: RAD - Chest Single View - 12/22/2018 5:29 pm CLINICAL HISTORY: Chest pain, abdominal pain COMPARISON: December 08 chest film, December 13 CT chest TECHNIQUE: AP portable chest image was obtained 1729 hours . FINDINGS: Right-sided dialysis catheter is in place. Bilateral pleural effusions are present similar to comparison imaging. Infiltrate and/ or atelectasis at each base also similar to comparison. Upper lobe vasculature is similar to comparison. Heart size is upper normal, stable. No pneumothorax. No a cute bony abnormality seen. No acute aortic findings suspected. IMPRESSION: Bilateral pleural effusions with infiltrate and/ or atelectasis at each lung base. Findings are not significantly different from comparison.
[2018-12-22] MEDS ORDERED: MORPHINE 4 MG/ML SYR ONE ×2 (17:36→17:41)
[2018-12-22] MEDS ORDERED: ONDANSETRON 4 MG/2 ML VIAL ONE ×2 (17:37→17:41)
[2018-12-22 17:47] LABS: Absolute Lymphocytes (CBC) 0.5 K/uL (0.7-4.9); Absolute Monocytes 0.3 K/uL (0.1-1.3); Absolute Neutrophil 2.2 K/uL (1.8-8.0); Eosinophils % 2.9 % (0-4.4); Hematocrit 33.2 % (39.6-49.0); Lymphocytes % 16.5 % (15.3-44.8); MPV 8.1 fL (7.6-11.3); Monocytes % 10.1 % (3.3-12.3); RBC Red Blood Cell Count 3.25 M/uL (4.33-5.43)
[2018-12-22 17:51] LABS: Protime INR 1.17
[2018-12-22 18:13] LABS: Albumin 3.9 g/dL (3.4-5.0); Bilirubin Direct 0.3 mg/dL (0-0.2); Bilirubin Total 0.6 mg/dL (0.2-1.0); Magnesium 2.2 mg/dL (1.8-2.4); Potassium 4.8 mmol/L (3.5-5.1); Protein, Total 7.8 g/dL (6.4-8.2)
--- NOTE | 2018-12-22 18:13 | ER ---
Nurse's Notes [facility] Name: Blaise Quarles Age: 78 yrs Sex: Male : 1940 Arrival Date: 12/22/2018 Time: 16:32 Bed 25 Private MD: Diagnosis: Chest pain, unspecified;Generalized abdominal pain Presentation: 12/22 16:33 Presenting complaint: Child states: he is complaining of abdominal pain since this morning; reports chest pain when he coughs and the pain moves to the back; denies fever;. Transition of care: patient was not received from another setting of care. Onset of symptoms was December 22, 2018. Risk Assessment: Do you want to hurt yourself or someone else? Patient reports no desire to harm self or others. Initial Sepsis Screen: Does the patient meet any 2 criteria? No. Patient's initial sepsis screen is negative. Does the patient have a suspected source of infection? No. Patient's initial sepsis screen is negative. Care prior to arrival: None. 16:33 Method Of Arrival: Ambulatory 16:33 Acuity: SARATH 3 Triage Assessment: 16:51 General: Appears uncomfortable, Behavior is flat, fussy. Pain: Complains of pain in ls4 left upper quadrant, chest and left scapula. Cardiovascular: Reports chest pain, since 2 weeks. Respiratory: Airway is patent Respiratory effort is even, unlabored, Respiratory pattern is regular. : Parent/caregiver report the patient having pt is on dialysis Thursday, Thursday and . Musculoskeletal: Circulation, motion, and sensation intact. Capillary refill < 3 seconds, Range of motion: intact in all extremities. Historical: - Allergies: 16:35 Aspirin; hj - PMHx: 16:35 Anemia; CAD; cardiomegaly; CHF; chronic renal disease; Cirrhosis; Diabetes - IDDM; Dialysis; High Cholesterol; Hypertension; Myocardial infarction; pleural effusion; pulmonary nodule; Visually impared; - PSHx: 16:35 graft; hj - Immunization history:: Adult Immunizations up to date. - Social history:: Smoking status: unknown. - Ebola Screening: : No symptoms or risks identified at this time. Screenin:53 Abuse screen: Denies threats or abuse. Denies injuries from another. Nutritional ls4 screening: No deficits noted. Tuberculosis screening: No symptoms or risk factors identified. Fall Risk None identified. Assessment: 16:52 Pain: Pain does not radiate. Pain began two weeks. ls4 Vital Signs: 16:35 BP 153 / 71; Pulse 75; Resp 18; Temp 99.0; Pulse Ox 93% on R/A; Weight 54.88 kg; Height hj 5 ft. 5 in. (165.10 cm); Pain 10/10; 18:30 BP 168 / 72; Pulse 69; Resp 16; Pulse Ox 99% on R/A; Pain 4/10; ls4 18:48 BP 167 / 84; Pulse 74; Resp 16; Pulse Ox 99% on R/A; Pain 7/10; ls4 16:35 Body Mass Index 20.14 (54.88 kg, 165.10 cm) ED Course: 16:32 Patient arrived in ED. mr 16:35 Triage completed. hj 16:35 Arm band placed on right wrist. hj 16:49 Candis Petersen, HUONG is Primary Nurse. ls4 16:53 Stephanie Cardona FNP-C is [facility]. kb 16:53 Andreas Pal MD is Attending Physician. kb 16:53 Patient has correct armband on for positive identification. Bed in low position. Call ls4 light in reach. Side rails up X 1. lens coating technician on. Pulse ox on. NIBP on. Warm blanket given. Verbal reassurance given. 16:53 No provider procedures requiring assistance completed. Oxygen administration via nasal ls4 cannula \T\ 4L/min. 16:57 EKG done, by highway technician. reviewed by Andreas Pal MD. sm3 17:04 Inserted saline lock: 20 gauge in left antecubital area, using aseptic technique. Blood rv collected. 17:29 XRAY Chest (1 view) In Process Unspecified. EDMS 18:52 IV discontinued, intact, bleeding controlled, No redness/swelling at site. Pressure ls4 dressing applied. Administered Medications: 17:25 Drug: morphine 4 mg Route: IVP; Site: left antecubital; rv 18:02 Follow up: Response: No adverse reaction; Marked relief of symptoms ls4 17:26 Drug: Zofran 4 mg Route: IVP; Site: left antecubital; rv 18:02 Follow up: Response: No adverse reaction; Marked relief of symptoms ls4 Outcome: 18:51 AMA AMA form signed ls4 18:51 Condition: stable 18:51 Discharge instructions given to patient, Instructed on discharge instructions, follow up and referral plans. medication usage, safety practices, Demonstrated understanding of instructions, follow-up care, reasons not to leave against medical advice 18:54 Patient left the ED. ls4 Signatures: Dispatcher [employer] EDOK Stephanie Cardona, SURYA BENSONP-Tyesha Farrell Henry, RN RN Xochitl Joiner 3 Shoaib Valentin, RN RN Candis Wells RN RN ls4
--- NOTE | 2018-12-22 18:14 | EDPHYS ---
Physician Documentation [facility] Name: Blaise Quarles Age: 78 yrs Sex: Male : 1940 Arrival Date: 12/22/2018 Time: 16:32 Bed 25 Private MD: ED Physician Andreas Pal HPI: 12/22 17:11 This 78 yrs old Male presents to ER via Ambulatory with complaints of Chest kb Pain, Abdominal Pain. 17:11 The patient presents with abdominal pain that is diffuse. Onset: The symptoms/episode kb began/occurred chronic. The symptoms do not radiate. Associated signs and symptoms: none. The symptoms are described as constant. Modifying factors: The symptoms are alleviated by nothing, the symptoms are aggravated by pressure. Severity of pain: At its worst the pain was moderate in the emergency department the pain is unchanged. The patient has experienced similar episodes in the past, chronically. The patient has been recently seen at the [facility] Emergency Department, for similar complaints several times in the past month. Pt reports abd pain that is diffuse. Daughter reports pt also has chest pain. Pt only reports diffuse abd pain. Pt does not want a CT scan done. . Historical: - Allergies: 16:35 Aspirin; hj - PMHx: 16:35 Anemia; CAD; cardiomegaly; CHF; chronic renal disease; Cirrhosis; Diabetes - IDDM; hj Dialysis; High Cholesterol; Hypertension; Myocardial infarction; pleural effusion; pulmonary nodule; Visually impared; - PSHx: 16:35 graft; hj - Immunization history:: Adult Immunizations up to date. - Social history:: Smoking status: unknown. - Ebola Screening: : No symptoms or risks identified at this time. ROS: 17:11 Constitutional: Negative for fever, chills, and weight loss, ENT: Negative for injury, kb pain, and discharge, Neck: Negative for injury, pain, and swelling, Respiratory: Negative for shortness of breath, cough, wheezing, and pleuritic chest pain, Back: Negative for injury and pain, : Negative for injury, bleeding, discharge, and swelling, MS/Extremity: Negative for injury and deformity, Skin: Negative for injury, rash, and discoloration, Neuro: Negative for headache, weakness, numbness, tingling, and seizure. 17:11 Cardiovascular: Positive for chest pain, Negative for edema, orthopnea, palpitations, paroxysmal nocturnal dyspnea. 17:11 Abdomen/GI: Positive for abdominal pain, Negative for nausea, vomiting, and diarrhea, constipation. Exam: 17:11 Constitutional: This is a well developed, well nourished patient who is awake, alert, kb and in no acute distress. Head/Face: Normocephalic, atraumatic. ENT: Nares patent. No nasal discharge, no septal abnormalities noted. Tympanic membranes are normal and external auditory canals are clear. Oropharynx with no redness, swelling, or masses, exudates, or evidence of obstruction, uvula midline. Mucous membranes moist. Neck: Trachea midline, no thyromegaly or masses palpated, and no cervical lymphadenopathy. Supple, full range of motion without nuchal rigidity, or vertebral point tenderness. No Meningismus. Chest/axilla: Normal chest wall appearance and motion. Nontender with no deformity. No lesions are appreciated. Dialysis catheter noted to right upper chest. Cardiovascular: Regular rate and rhythm with a normal S1 and S2. No gallops, murmurs, or rubs. Normal PMI, no JVD. No pulse deficits. Respiratory: Lungs have equal breath sounds bilaterally, clear to auscultation and percussion. No rales, rhonchi or wheezes noted. No increased work of breathing, no retractions or nasal flaring. Back: No spinal tenderness. No costovertebral tenderness. Full range of motion. Skin: Warm, dry with normal turgor. Normal color with no rashes, no lesions, and no evidence of cellulitis. MS/ Extremity: Pulses equal, no cyanosis. Neurovascular intact. Full, normal range of motion. Neuro: Awake and alert, GCS 15, oriented to person, place, time, and situation. Cranial nerves II-XII grossly intact. Motor strength 5/5 in all extremities. Sensory grossly intact. Cerebellar exam normal. Normal gait. 17:11 Abdomen/GI: Inspection: abdomen appears normal, Bowel sounds: normal, in all quadrants, Palpation: soft, in all quadrants, moderate abdominal tenderness, in all quadrants. Vital Signs: 16:35 BP 153 / 71; Pulse 75; Resp 18; Temp 99.0; Pulse Ox 93% on R/A; Weight 54.88 kg; Height hj 5 ft. 5 in. (165.10 cm); Pain 10/10; 18:30 BP 168 / 72; Pulse 69; Resp 16; Pulse Ox 99% on R/A; Pain 4/10; ls4 18:48 BP 167 / 84; Pulse 74; Resp 16; Pulse Ox 99% on R/A; Pain 7/10; ls4 16:35 Body Mass Index 20.14 (54.88 kg, 165.10 cm) hj MDM: 16:53 Patient medically screened. kb 17:13 Data reviewed: vital signs, nurses notes. Data interpreted: Pulse oximetry: on room air kb is 93 %. Interpretation: normal. 12/22 17:01 Order name: Basic Metabolic Panel; Complete Time: 18:15 kb 12/22 17:01 Order name: CBC with Diff; Complete Time: 17:59 kb 12/22 17:01 Order name: Hepatic Function; Complete Time: 18:15 kb 12/22 17:01 Order name: Lipase; Complete Time: 18:15 kb 12/22 17:01 Order name: Magnesium; Complete Time: 18:15 kb 12/22 17:01 Order name: NT PRO-BNP; Complete Time: 18:15 kb 12/22 16:36 Order name: EKG - Nurse/Tech; Complete Time: 16:38 hj 12/22 17:01 Order name: IV Saline Lock; Complete Time: 17:02 kb 12/22 17:01 Order name: PT-INR; Complete Time: 17:59 kb 12/22 17:01 Order name: Troponin (emerg Dept Use Only); Complete Time: 18:12 kb 12/22 17:01 Order name: XRAY Chest (1 view); Complete Time: 17:38 kb 12/22 17:01 Order name: EKG; Complete Time: 17:06 kb 12/22 17:01 Order name: Labs collected and sent; Complete Time: 17:02 kb 12/22 17:01 Order name: Cardiac monitoring; Complete Time: 17:02 kb 12/22 17:01 Order name: O2 Per Protocol; Complete Time: 17:02 kb 12/22 17:01 Order name: O2 Sat Monitoring; Complete Time: 17:03 kb Administered Medications: 17:25 Drug: morphine 4 mg Route: IVP; Site: left antecubital; rv 18:02 Follow up: Response: No adverse reaction; Marked relief of symptoms ls4 17:26 Drug: Zofran 4 mg Route: IVP; Site: left antecubital; rv 18:02 Follow up: Response: No adverse reaction; Marked relief of symptoms ls4 Disposition: 12/22/18 18:13 Patient has left against medical advice. Impression: Chest pain, unspecified, Generalized abdominal pain. - Patients states they are going to Home. - Condition is Stable. Follow up: Emergency Department; When: As needed; Reason: Worsening of condition. Follow up: Private Physician; When: 2 - 3 days; Reason: Recheck today's complaints, Continuance of care, Re-evaluation by your physician. - Problem is chronic. - Symptoms are resolved. Signatures: Dispatcher [employer] EDMS Stephanie Cardona, MABEL-C HEEL SHAPER-Jesse Lino RN RN hj Vicente, Ronaldo, RN RN rv Stewart, Lisa, RN RN ls4 Corrections: (The following items were deleted from the chart) 17:14 17:11 Constitutional: This is a well developed, well nourished patient who is awake, kb alert, and in no acute distress. Head/Face: Normocephalic, atraumatic. ENT: Nares patent. No nasal discharge, no septal abnormalities noted. Tympanic membranes are normal and external auditory canals are clear. Oropharynx with no redness, swelling, or masses, exudates, or evidence of obstruction, uvula midline. Mucous membranes moist. Neck: Trachea midline, no thyromegaly or masses palpated, and no cervical lymphadenopathy. Supple, full range of motion without nuchal rigidity, or vertebral point tenderness. No Meningismus. Chest/axilla: Normal chest wall appearance and motion. Nontender with no deformity. No lesions are appreciated. Cardiovascular: Regular rate and rhythm with a normal S1 and S2. No gallops, murmurs, or rubs. Normal PMI, no JVD. No pulse deficits. Respiratory: Lungs have equal breath sounds bilaterally, clear to auscultation and percussion. No rales, rhonchi or wheezes noted. No increased work of breathing, no retractions or nasal flaring. Back: No spinal tenderness. No costovertebral tenderness. Full range of motion. Skin: Warm, dry with normal turgor. Normal color with no rashes, no lesions, and no evidence of cellulitis. MS/ Extremity: Pulses equal, no cyanosis. Neurovascular intact. Full, normal range of motion. Neuro: Awake and alert, GCS 15, oriented to person, place, time, and situation. Cranial nerves II-XII grossly intact. Motor strength 5/5 in all extremities. Sensory grossly intact. Cerebellar exam normal. Normal gait. kb 18:54 18:13 12/22/2018 18:13 Patients has left against medical advice. Impression: Chest ls4 pain, unspecified; Generalized abdominal pain. Patient states they are going to Home. Condition is Stable. Follow up: Emergency Department; When: As needed; Reason: Worsening of condition. Follow up: Private Physician; When: 2 - 3 days; Reason: Recheck today's complaints, Continuance of care, Re-evaluation by your physician. Problem is chronic. Symptoms are resolved. kb
[2018-12-22 19:29] VITALS: TEMP 99
[2018-12-22 19:30] VITALS: O2SAT 99
[2018-12-22 19:32] VITALS: BP 167/84
--- NOTE | 2018-12-22 21:16 | EKG ---
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
== END 2018-12-22 18:54 | disposition left against medical advice (07) ==
LOC: ER 16:29
DX: R10.84 Generalized abdominal pain (principal); I10 Essential (primary) hypertension; Z88.6 Allergy status to analgesic agent; Z99.2 Dependence on renal dialysis
CPT/HCPCS: 93005; 85025; 80048; 36415; 83735; 85610; 80076; 84484; 83690; 83880; 71045; 96375; 96374; 99285; J2405 ×2

== ENCOUNTER 2018-12-27 17:06 | Emergency (ER) | payer OTHER ==
--- OUTSIDE RECORDS SUMMARY | 2018-12-27 18:21 | XMS REPORT | Clinical Summary ---
:1940 Author Organization [facility] Address [address] [place] [address] Care Team Providers Name Role Phone Moo [...] 03/01/2018 Orders Only General Internal Medicine after 12/26/2017 Family History Medical History Relation Name Comments [...] 452 ms QTC Calculation(Bazett) 458 ms P [place] 66 degrees R [place] -24 degrees T [place] 140 degrees Normal sinus rhythm Possible [...] MICROSCOPIC STAT 03/01/2018 10:19 AM CDT after 12/26/2017 Results Urinalysis w/Microscopic (03/03/2018 11:08 AM CDT)Only the most recent of2 resultswithin the time period is included. Color, UA Yellow [facility] Clarity, UA Hazy [facility] Specific [place], UA 1.012 1.001 - 1.035 [facility] pH, UA 6.0 5.0 - 8.0 [facility] Protein, UA 600 mg/dL (A) Negative [facility] Glucose, UA 100 mg/dL (A) Negative [facility] Ketones, UA Negative Negative [facility] Bilirubin, UA Negative Negative [facility] Blood, UA Moderate (A) Negative [facility] Nitrite, UA Negative Negative [facility] Leukocytes, UA Small (A) Negative [facility] Urobilinogen, UA 0.2 0.2 - 1.0 mg/dL [facility] RBC, UA 27 /HPF [facility] WBC, UA 12 /HPF [facility] Bacteria, UA Occasional [facility] Mucus Rare [facility] Squam Epithel, UA <1 /HPF [facility] Hyaline Casts, UA 2 /LPF [facility] Granular Casts, UA 5 /LPF [facility] Specimen Source Urine, Yusuf [facility] Specimen Urine Performing Organization Address [facility]/[employer] Phone Number [facility] [address], [place] [phone] KIEL Urine culture (03/03/2018 11:08 AM CDT) Result PSEUDOMONAS AERUGINOSA (A) [facility] Specimen Urine Organism Antibiotic Method Susceptibility Pseudomonas [...] aeruginosa Tobramycin <=2: Susceptible Performing Organization Address [facility] Phone Number [address] [phone] KI[facility] ED ECG Interpretation (03/02/2018 7:12 AM CDT) Narrative Performed At Macrina Gómez MD 03/02/20187:12 AM ECG/EKG Interpretation Date/Time: 03/01/2018 10:25 AM Performed by: MACRINA GÓMEZ. Authorized by: MACRINA GÓMEZ The ECG was interpreted by ED physician. The ECG is interpreted as sinus rhythm. Rate is normal rate. Conduction: conduction normal. ST segments abnormal. T waves abnormal. [place] is normal. Other findings: no other findings. Clinical Impression: non-specific ECG and abnormal ECG CT abdomen pelvis without contrast (03/01/2018 1:46 PM CDT) Specimen Narrative Performed At FINAL REPORT [facility] ABDOMINAL AND PELVIS CT DATED 03/01/2018 CLINICAL [...] Report Verified Date/Time:03/01/2018 15:15:27 Reading Location: [facility] B1 C013Y CT Body Reading Room [...] Report Verified Date/Time: 03/01/2018 15:15:27 Reading Location: [facility] C013Y CT Body Reading Room Performing Organization Address City/State/Zipcode Phone Number GE RIS CBC with platelet count + automated diff (03/01/2018 10:29 AM CDT) WBC 5.6 3.5 - 10.5 K/L [facility] RBC 3.10 (L) 4.63 - 6.08 M/L [facility] Hemoglobin 9.8 (L) 13.7 - 17.5 GM/DL [facility] Hematocrit 29.7 (L) 40.1 - 51.0 % [facility] MCV 95.8 (H) 79.0 - 92.2 fL [facility] MCH 31.6 25.7 - 32.2 pg [facility] MCHC 33.0 32.3 - 36.5 GM/DL [facility] RDW 14.0 11.6 - 14.4 % [facility] Platelets 171 150 - 450 K/CU MM [facility] MPV 11.1 9.4 - 12.4 fL [facility] nRBC 0 0 - 0 /100 WBC [facility] % Neutros 69 % [facility] % Lymphs 16 % [facility] % Monos 10 % [facility] % Eos 4 % [facility] % Baso 1 % [facility] # Neutros 3.88 1.78 - 5.38 K/L [facility] # Lymphs 0.88 (L) 1.32 - 3.57 K/L [facility] # Monos 0.56 0.30 - 0.82 K/L [facility] # Eos 0.25 0.04 - 0.54 K/L [facility] # Baso 0.03 0.01 - 0.08 K/L [facility] Immature Granulocytes-Relative 0 0 - 1 % [facility] Specimen Blood Performing Organization Address City/[facility]/Zipcode Phone Number [address] [address] [phone] CENTER Lipase (03/01/2018 10:29 AM CDT) Lipase 61 8 - 78 U/L [facility] Specimen Blood Performing Organization Address City/[facility]/[employer] Phone Number [address] [address] [phone] [facility] Amylase (03/01/2018 10:29 AM CDT) Amylase 113 25 - 125 U/L [facility] Specimen Blood Performing Organization Address City/[facility]/Zipcode Phone Number [address] [phone] KIEL Hepatic function panel (03/01/2018 10:29 AM CDT) Protein, Total 6.8 6.0 - 8.3 gm/dL [facility] Albumin 3.5 3.5 - 5.0 g/dL [facility] Total Bilirubin 0.4 0.2 - 1.2 mg/dL [facility] Bilirubin, Direct 0.2 0.1 - 0.5 mg/dL [facility] Alkaline Phosphatase 78 40 - 150 U/L [facility] AST 20 5 - 34 U/L [facility] ALT 21 6 - 55 U/L [facility] Specimen Blood Performing Organization Address City/State/Zipcode Phone Number [facility] [address] [place] [address] [phone] CENTER Basic Metabolic Panel (03/01/2018 10:29 AM CDT) Sodium 136 136 - 145 meq/L [facility] Potassium 4.0 3.5 - 5.1 meq/L [facility] Chloride 108 (H) 98 - 107 meq/L [facility] CO2 15 (L) 22 - 29 meq/L [facility] BUN 80 (H) 7 - 21 mg/dL [facility] Creatinine 4.79 (H) 0.57 - 1.25 mg/dL [facility] Glucose 84 70 - 105 mg/dL [facility] Calcium 8.9 8.4 - 10.2 mg/dL [facility] EGFR 12Comment: ESTIMATED GFR IS mL/min/1.73 sq m [facility] NOT ACCURATE CREATININE [facility] CLEARANCE IN PREDICTING GLOMERULAR FILTRATION RATE. ESTIMATED GFR IS NOT APPLICABLE FOR DIALYSIS PATIENTS. Specimen Blood Performing Organization Address City/[facility]/[employer] Phone Number [facility] [address] [place] [address] [phone] [facility] ECG 12 lead (03/01/2018 10:20 AM CDT) Specimen Narrative Performed At Ventricular Rate 62 BPM GE MUSE Atrial Rate 62 BPM P-R Interval 178 ms QRS Duration 96 ms Q-T Interval 452 ms QTC Calculation(Bazett) 458 ms P [place] 66 degrees R [place] -24 degrees T [place] 140 degrees Normal sinus rhythm Possible [...] 452 ms QTC Calculation(Bazett) 458 ms P [place] 66 degrees R [place] -24 degrees T [place] 140 degrees Normal sinus rhythm Possible [...] Address City/State/Zipcode Phone Number GE MUSE after 12/26/2017 Insurance Payer Benefit Plan / Group Subscriber ID Type Phone Address MEDICARE MEDICARE A B xxxxxxxxxx Medicare MEDICAID [place]ICA[place] xxxxxxxxx Medicaid Advance Directives For more information, please contact:[address] [phone] Code Status Date Activated Date Inactivated Comments [...]
--- OUTSIDE RECORDS SUMMARY | 2018-12-27 18:21 | XMS REPORT ---
:1940 Author Organization [facility] Address [address] [place] [address] Dr. Manley [address] [place] [id number] Care Team Providers Name Role Phone LAZRODNEY [...] Comments CULTURE (BEAKER) (test PSEUDOMONAS 70-79,000 col/mL ddlv=1479) AERUGINOSA Pseudomonas aeruginosa Amikacin (test code=1) Susceptible [...] code=25) Resistant <0 or >4 URINALYSIS W/ [id number] 12:06:00 Test Item Value Reference Range Comments COLOR (BEAKER) (test zhiy=793) Yellow CLARITY (BEAKER) (test vymi=194) Hazy SPECIFIC GRAVITY UA (BEAKER) (test hpzo=601) 1.012 1.001-1.035 PH UA (BEAKER) (test cbmi=169) 6.0 5.0-8.0 PROTEIN UA (BEAKER) (test fzkd=697) 600 mg/dL Negative GLUCOSE UA (BEAKER) (test yewa=611) 100 mg/dL Negative KETONES UA (BEAKER) (test mdzd=118) Negative Negative BILIRUBIN UA (BEAKER) (test oizo=553) Negative Negative BLOOD UA (BEAKER) (test msot=585) Moderate Negative NITRITE UA (BEAKER) (test kijg=085) Negative Negative LEUKOCYTE ESTERASE UA (BEAKER) (test vmrc=167) Small Negative UROBILINOGEN UA (BEAKER) (test dhwn=814) 0.2 mg/dL 0.2-1.0 RBC UA (BEAKER) (test uilc=267) 27 /HPF WBC UA (BEAKER) (test icza=638) 12 /HPF BACTERIA (BEAKER) (test krip=493) Occasional MUCUS (BEAKER) (test xmsk=7233) Rare SQUAMOUS EPITHELIAL (BEAKER) (test qxek=276) < /HPF HYALINE CASTS (BEAKER) (test tttv=930) 2 /LPF GRANULAR CASTS (BEAKER) (test ywtg=365) 5 /LPF SOURCE(BEAKER) (test omic=3779) Urine, Yusuf CT, [id number] 15:15:00Reason for exam:->ABDOMINAL PAINWhat is the patient's [...] Verified Date/ Time: 03/01/2018 15:15:27 Reading Location: [address] Body Reading Room BASIC METABOLIC [id number] 11:04:00 Test Item Value Reference Range Comments SODIUM (BEAKER) (test 136 meq/L 136-145 jzdd=932) POTASSIUM (BEAKER) (test 4.0 meq/L 3.5-5.1 zkia=406) CHLORIDE (BEAKER) (test 108 meq/L 98-107 dweu=047) CO2 (BEAKER) (test 15 meq/L 22-29 nzag=842) BLOOD UREA NITROGEN 80 mg/dL 7-21 (BEAKER) (test khyw=865) CREATININE (BEAKER) (test 4.79 mg/dL 0.57-1.25 bmnp=835) GLUCOSE RANDOM (BEAKER) 84 mg/dL 70-105 (test bsjh=530) CALCIUM (BEAKER) (test 8.9 mg/dL 8.4-10.2 uwyq=743) EGFR (BEAKER) (test 12 mL/min/1.73 sq m ESTIMATED GFR IS NOT ywad=3058) ACCURATE CREATININE CLEARANCE IN PREDICTING GLOMERULAR FILTRATION RATE. ESTIMATED GFR IS NOT APPLICABLE FOR DIALYSIS PATIENTS. [id number] 11:02:00 Test Item Value Reference Range Comments LIPASE (BEAKER) (test qovi=505) 61 U/L 8-78 [id number] 11:02:00 Test Item Value Reference Range Comments AMYLASE (BEAKER) (test opgp=109) 113 U/L 25-125 HEPATIC FUNCTION [id number] 11:02:00 Test Item Value Reference Range Comments TOTAL PROTEIN (BEAKER) (test hlnk=396) 6.8 gm/dL 6.0-8.3 ALBUMIN (BEAKER) (test vfjy=7552) 3.5 g/dL 3.5-5.0 BILIRUBIN TOTAL (BEAKER) (test xlyk=338) 0.4 mg/dL 0.2-1.2 BILIRUBIN DIRECT (BEAKER) (test zdij=102) 0.2 mg/dL 0.1-0.5 ALKALINE PHOSPHATASE (BEAKER) (test xrds=644) 78 U/L 40-150 AST (SGOT) (BEAKER) (test crvt=652) 20 U/L 5-34 ALT (SGPT) (BEAKER) (test oivz=656) 21 U/L 6-55 URINALYSIS W/ [id number] 11:01:00 Test Item Value Reference Range Comments COLOR (BEAKER) (test ahim=610) Light Yellow CLARITY (BEAKER) (test gnso=167) Clear SPECIFIC GRAVITY UA (BEAKER) (test vvbt=614) 1.006 1.001-1.035 PH UA (BEAKER) (test vvrc=476) 6.0 5.0-8.0 PROTEIN UA (BEAKER) (test ckkb=298) 300 mg/dL Negative GLUCOSE UA (BEAKER) (test ftdj=087) 30 mg/dL Negative KETONES UA (BEAKER) (test exeo=401) Negative Negative BILIRUBIN UA (BEAKER) (test ndhj=113) Negative Negative BLOOD UA (BEAKER) (test vcns=998) Trace Negative NITRITE UA (BEAKER) (test qgdn=297) Negative Negative LEUKOCYTE ESTERASE UA (BEAKER) (test ggnq=382) Negative Negative UROBILINOGEN UA (BEAKER) (test ofyp=911) 0.2 mg/dL 0.2-1.0 RBC UA (BEAKER) (test mtlm=642) < /HPF WBC UA (BEAKER) (test vxrm=262) < /HPF BACTERIA (BEAKER) (test pttr=013) Rare MUCUS (BEAKER) (test vcee=2937) Rare SOURCE(BEAKER) (test xpcg=9967) Urine, Voided CBC W/PLT COUNT & AUTO [id number] 10:49:00 Test Item Value Reference Range Comments WHITE BLOOD CELL COUNT (BEAKER) (test xamt=925) 5.6 K/ L 3.5-10.5 RED BLOOD CELL COUNT (BEAKER) (test kovn=900) 3.10 M/ L 4.63-6.08 HEMOGLOBIN (BEAKER) (test tqit=262) 9.8 GM/DL 13.7-17.5 HEMATOCRIT (BEAKER) (test gnak=284) 29.7 % 40.1-51.0 MEAN CORPUSCULAR VOLUME (BEAKER) (test fmnr=438) 95.8 fL 79.0-92.2 MEAN CORPUSCULAR HEMOGLOBIN (BEAKER) (test 31.6 pg 25.7-32.2 ukfc=423) MEAN CORPUSCULAR HEMOGLOBIN CONC (BEAKER) (test 33.0 GM/DL 32.3-36.5 llxi=878) RED CELL DISTRIBUTION WIDTH (BEAKER) (test 14.0 % 11.6-14.4 vbhi=214) PLATELET COUNT (BEAKER) (test mtgj=584) 171 K/CU MM 150-450 MEAN PLATELET VOLUME (BEAKER) (test ucdh=293) 11.1 fL 9.4-12.4 NUCLEATED RED BLOOD CELLS (BEAKER) (test 0 /100 WBC 0-0 fdjk=708) NEUTROPHILS RELATIVE PERCENT (BEAKER) (test 69 % vmde=005) LYMPHOCYTES RELATIVE PERCENT (BEAKER) (test 16 % txxr=845) MONOCYTES RELATIVE PERCENT (BEAKER) (test 10 % ycht=830) EOSINOPHILS RELATIVE PERCENT (BEAKER) (test 4 % nnst=136) BASOPHILS RELATIVE PERCENT (BEAKER) (test 1 % qfno=573) NEUTROPHILS ABSOLUTE COUNT (BEAKER) (test 3.88 K/ L 1.78-5.38 gdsy=919) LYMPHOCYTES ABSOLUTE COUNT (BEAKER) (test 0.88 K/ L 1.32-3.57 vrar=110) MONOCYTES ABSOLUTE COUNT (BEAKER) (test 0.56 K/ L 0.30-0.82 djlz=229) EOSINOPHILS ABSOLUTE COUNT (BEAKER) (test 0.25 K/ L 0.04-0.54 ijls=112) BASOPHILS ABSOLUTE COUNT (BEAKER) (test 0.03 K/ L 0.01-0.08 pdvh=177) IMMATURE GRANULOCYTES-RELATIVE PERCENT (BEAKER) 0 % 0-1 (test snde=2060)
[2018-12-27 19:04] LABS: Basophils % 0.8 % (0-1.3); Eosinophils % 1.9 % (0-4.4); Hematocrit 31.6 % (39.6-49.0); Lymphocytes % 12.4 % (15.3-44.8); MPV 8.6 fL (7.6-11.3); Monocytes % 8.5 % (3.3-12.3); RBC Red Blood Cell Count 3.08 M/uL (4.33-5.43)
[2018-12-27 19:05] LABS: Absolute Lymphocytes (CBC) 0.5 K/uL (0.7-4.9)
[2018-12-27] MEDS ORDERED: ONDANSETRON 4 MG/2 ML VIAL ONE (19:05)
[2018-12-27] MEDS ORDERED: MORPHINE 4 MG/ML SYR ONE ×2 (19:05→22:10)
[2018-12-27 19:10] LABS: Protime INR 1.19
[2018-12-27 19:38] LABS: Albumin 3.4 g/dL (3.4-5.0); Bilirubin Direct 0.2 mg/dL (0-0.2); Bilirubin Total 0.3 mg/dL (0.2-1.0); Magnesium 2.2 mg/dL (1.8-2.4); Potassium 5.1 mmol/L (3.5-5.1); Protein, Total 7.2 g/dL (6.4-8.2); Troponin (Emerg Dept Use Only) 0.08 ng/mL (0.0-0.045)
--- NOTE | 2018-12-27 19:48 | RAD REPORT ---
EXAM DESCRIPTION: RAD - Chest Single View - 12/27/2018 7:38 pm CLINICAL HISTORY: CHEST PAIN Chest pain. COMPARISON: <Comparisons> FINDINGS: Portable technique limits examination quality. Bilateral pulmonary opacities are present, greater on the left, likely representing pulmonary edema. Small bilateral pleural effusions are present. The heart is moderately enlarged in size with sternoto my wires present. Right-sided venous catheter is in place. IMPRESSION: Moderate CHF versus volume overload pattern.
[2018-12-27] MEDS ORDERED: FENTANYL CITR 100 MCG/2 ML ONE (21:15)
[2018-12-27] MEDS ORDERED: NITROGLYCERIN 0.4 MG/TAB SL ONE (21:15)
--- NOTE | 2018-12-27 21:42 | ER ---
Nurse's Notes [facility] Name: Blaise Quarles Age: 78 yrs Sex: Male : 1940 Arrival Date: 12/27/2018 Time: 17:09 Bed 17 Private MD: Diagnosis: acute chest pain;acute abdominal pain;CHF Presentation: 12/27 17:34 Presenting complaint: Child states: PER FAMILY "HE'S GOT THE ABDOMINAL PAIN AND THE bp CHEST PAIN, THE SAME HE ALWAYS HAS". Transition of care: patient was not received from another setting of care. Onset of symptoms was December 27, 2018. Risk Assessment: Do you want to hurt yourself or someone else? Patient reports no desire to harm self or others. Initial Sepsis Screen: Does the patient meet any 2 criteria? No. Patient's initial sepsis screen is negative. Does the patient have a suspected source of infection? No. Patient's initial sepsis screen is negative. Care prior to arrival: None. 17:34 Method Of Arrival: Wheelchair bp 17:34 Acuity: SARATH 2 bp Triage Assessment: 17:36 General: Appears in no apparent distress. uncomfortable, Behavior is cooperative, bp appropriate for age, anxious. Pain: Complains of pain in chest and abdomen. GI: Reports lower abdominal pain, upper abdominal pain. Historical: - Allergies: 17:36 Aspirin; bp - Home Meds: 17:36 amlodipine 10 mg tab 1 tab once daily [Active]; clonazepam 1 mg Oral tab 1 tab 2 times bp per day [Active]; nitroglycerin 0.4 mg SL subl 1 tab [Active]; Risperdal 0.5 mg Oral tab 1 tabs 2 times per day [Active]; trazodone 100 mg Oral tab 1 tab nightly [Active]; - PMHx: 17:36 Anemia; CAD; cardiomegaly; CHF; chronic renal disease; Cirrhosis; Diabetes - IDDM; bp Dialysis; High Cholesterol; Hypertension; Myocardial infarction; pleural effusion; pulmonary nodule; Visually impared; - Immunization history:: Adult Immunizations up to date. - Social history:: Smoking status: Patient/guardian denies using tobacco. - Ebola Screening: : No symptoms or risks identified at this time. - Family history:: not pertinent. - Hospitalizations: : No recent hospitalization is reported. Screenin:15 Abuse screen: Denies threats or abuse. Denies injuries from another. Nutritional cc3 screening: No deficits noted. Tuberculosis screening: No symptoms or risk factors identified. Fall Risk Ambulatory Aid- None/Bed Rest/Nurse Assist (0 pts). Gait- Normal/Bed Rest/Wheelchair (0 pts) Mental Status- Oriented to own ability (0 pts). Assessment: 18:59 Reassessment: when pt about to be wheeled to CT; pt in Dutch told interactive video technician, he hj doesn't want CAT scan done; pt was wheeled back to room; MD notified;. 19:25 Reassessment: Patient appears in no apparent distress at this time. Patient and/or cc3 family updated on plan of care and expected duration. Pain level reassessed. Patient is alert, oriented x 3, equal unlabored respirations, skin warm/dry/pink. Received this male patient from morning shift HUONG Molina as a case of abdominal pain with IV cannula gauge 22 at the left forearm saline locked. Patient on hemodialysis every Thursday, and Thursday with hemodialysis catheter at the right upper chest. Patient refused CT scan procedure, Dr. Aldrich informed. Patient opted to refuse CT scan procedure though risks and consequences explained and signed against medical advice form. Dr. Aldrich said to wait for lab results, charge nurse Radha informed. 19:25 GI: Bowel sounds present X 4 quads. Abd is soft X 4 quads Abdomen is tender to cc3 palpation X 4 quads. 20:38 Reassessment: Patient appears in no apparent distress at this time. Patient and/or cc3 family updated on plan of care and expected duration. Pain level reassessed. Patient is alert, oriented x 3, equal unlabored respirations, skin warm/dry/pink. 20:53 Reassessment: Patient appears in no apparent distress at this time. Patient and/or cc3 family updated on plan of care and expected duration. Pain level reassessed. Patient is alert, oriented x 3, equal unlabored respirations, skin warm/dry/pink. Dr. Aldrich at bedside trying to convince the patient to stay in the hospital but patient still refused. 21:30 Reassessment: Patient appears in no apparent distress at this time. Patient and/or cc3 family updated on plan of care and expected duration. Pain level reassessed. Patient is alert, oriented x 3, equal unlabored respirations, skin warm/dry/pink. Dr. Aldrich at bedside tried to convince again the patient to stay in the hospital but patient still strongly refused to stay, HUONG Tavares being the sizing end bander. Patient said his chest pain was decreased to 50% now after the given Fentanyl and Nitroglycerine. 22:30 Reassessment: Patient appears in no apparent distress at this time. Patient and/or cc3 family updated on plan of care and expected duration. Pain level reassessed. Patient is alert, oriented x 3, equal unlabored respirations, skin warm/dry/pink. Dr. Aldrich discharged the patient against medical advice with prescriptions given. IV cannula removed and patient left ER vitally stable by wheelchair escorted by me and the patient's relatives. Patient denies pain at this time. Patient states feeling better. Vital Signs: 17:36 BP 164 / 73; Pulse 64; Resp 20; Temp 97.8; Pulse Ox 95% ; Weight 55.34 kg; bp 19:15 BP 157 / 83; Pulse 63; Resp 20 S; Temp 98.3(O); Pulse Ox 96% on 2 lpm NC; cc3 20:21 BP 143 / 67; Pulse 67; Resp 20 S; Pulse Ox 96% on 2 lpm NC; cc3 21:30 BP 157 / 59; Pulse 65; Resp 20 S; Pulse Ox 98% on 2 lpm NC; cc3 22:20 BP 158 / 62; Pulse 66; Resp 21 S; Pulse Ox 96% on 2 lpm NC; cc3 ED Course: 17:09 Patient arrived in ED. mr 17:35 Triage completed. bp 17:36 Arm band placed on. bp 18:12 Jesse Kwong, HUONG is Primary Nurse. hj 18:14 Mark Aldrich MD is Attending Physician. wa 18:55 Missed attempt(s): 22 gauge in left antecubital area. Bleeding controlled, band aid dh3 applied, catheter tip intact. 18:56 Initial lab(s) drawn, by me, sent to lab. Inserted saline lock: 22 gauge in left dh3 forearm, using aseptic technique. Blood collected. 19:15 Patient has correct armband on for positive identification. Placed in gown. Bed in low cc3 position. Call light in reach. Side rails up X2. air sampling and monitoring on. Pulse ox on. NIBP on. 19:19 Nicole Carroll is Primary Nurse. cc3 19:40 XRAY Chest (1 view) In Process Unspecified. EDTX 21:40 Raheel Zeng MD is Referral Physician. or 21:40 Mark Segovia MD is Referral Physician. or 22:30 No provider procedures requiring assistance completed. IV discontinued, intact, cc3 bleeding controlled, No redness/swelling at site. Pressure dressing applied. Administered Medications: 18:58 Drug: Zofran 4 mg Route: IVP; Site: left forearm; hj 19:25 Follow up: Response: No adverse reaction; Nausea is decreased cc3 18:58 Drug: morphine 4 mg Route: IVP; Site: left forearm; hj 19:25 Follow up: Response: No adverse reaction; Pain is decreased cc3 21:00 Drug: Nitroglycerin 0.4 mg Route: Sublingual; cc3 21:30 Follow up: Response: No adverse reaction; Pain is decreased; chest pain decreased to cc3 50% as per patient 21:00 Drug: fentaNYL (PF) 50 mcg Route: IVP; Site: left forearm; cc3 21:30 Follow up: Response: No adverse reaction; Pain is decreased cc3 21:50 Drug: morphine 4 mg Route: IVP; Site: left forearm; cc3 22:20 Follow up: Response: No adverse reaction; Pain is decreased cc3 Intake: Outcome: 22:28 Patient left the ED. cc3 22:28 AMA AMA form signed cc3 22:28 Condition: stable cc3 22:28 Discharge instructions given to patient, family, Instructed on discharge instructions, follow up and referral plans. medication usage, Demonstrated understanding of instructions, follow-up care, medications, Prescriptions given X 2. Signatures: Dispatcher [employer] [facility] Tyesha Amaya Jesse Cline RN RN hj Herrera, Deanna [facility] Mark Aldrich MD MD wa Peltier, Brian, RN RN Nicole Carroll cc3 Corrections: (The following items were deleted from the chart) 20:38 19:25 Reassessment: Patient appears in no apparent distress at this time. Patient cc3 and/or family updated on plan of care and expected duration. Pain level reassessed. Patient is alert, oriented x 3, equal unlabored respirations, skin warm/dry/pink. Received this male patient from morning shift RN Jesse as a case of abdominal pain with IV cannula gauge 22 at the left forearm saline locked. Patient refused CT scan procedure, Dr. Aldrich informed. Patient opted to refuse CT scan procedure though risks and consequences explained and signed against medical advice form. Dr. Aldrich said to wait for lab results. cc3 20:55 19:25 Reassessment: Patient appears in no apparent distress at this time. Patient cc3 and/or family updated on plan of care and expected duration. Pain level reassessed. Patient is alert, oriented x 3, equal unlabored respirations, skin warm/dry/pink. Received this male patient from morning shift RN Jesse as a case of abdominal pain with IV cannula gauge 22 at the left forearm saline locked. Patient on hemodialysis every Thursday, and Thursday with hemodialysis catheter at the right upper chest. Patient refused CT scan procedure, Dr. Aldrich informed. Patient opted to refuse CT scan procedure though risks and consequences explained and signed against medical advice form. Dr. Aldrich said to wait for lab results. cc3 21:46 19:15 BP 157 / 83; Pulse 63bpm; Resp 20bpm; Spontaneous; Pulse Ox 96% RA; Temp 98.3F cc3 Oral; cc3 21:46 20:21 BP 143 / 67; Pulse 67bpm; Resp 20bpm; Spontaneous; Pulse Ox 96% RA; cc3 cc3 12/28 00:26 06/17 22:30 Reassessment: Patient appears in no apparent distress at this time. Patient cc3 and/or family updated on plan of care and expected duration. Pain level reassessed. Patient is alert, oriented x 3, equal unlabored respirations, skin warm/dry/pink. Dr. Aldrich discharged the patient against medical advice with prescriptions given. IV cannula removed and patient left ER vitally stable by wheelchair escorted by me and the patient's relatives. Patient states feeling better. cc3
--- NOTE | 2018-12-27 21:42 | EDPHYS ---
Physician Documentation [facility] Name: Blaise Quarles Age: 78 yrs Sex: Male : 1940 Arrival Date: 12/27/2018 Time: 17:09 Bed 17 Private MD: ED Physician Mark Aldrich HPI: 12/27 20:32 This 78 yrs old Male presents to ER via Wheelchair with complaints of wa Abdominal Pain, Chest Pain. 20:32 The patient or guardian reports chest pain that is located primarily in the substernal wa area, chest diffusely, abd pain (diffuse). chest pain L side. Onset: 1 day(s) ago. The pain does not radiate. Associated signs and symptoms: Pertinent positives: abdominal pain, shortness of breath, Pertinent negatives: cough, lower extremity swelling, vomiting. The chest pain is described as a pressure. Duration: The patient or guardian reports a single episode, that is still ongoing. Modifying factors: The symptoms are alleviated by nothing. the symptoms are aggravated by nothing. Severity of pain: At its worst the pain was moderate in the emergency department the pain is unchanged. The patient has experienced similar episodes in the past, several times, states similar episodes of abd pain. resolves with morphine. has been seen x 5 in this ED. states still does not have a dx. The patient has not recently seen a physician. Historical: - Allergies: 17:36 Aspirin; bp - Home Meds: 17:36 amlodipine 10 mg tab 1 tab once daily [Active]; clonazepam 1 mg Oral tab 1 tab 2 times bp per day [Active]; nitroglycerin 0.4 mg SL subl 1 tab [Active]; Risperdal 0.5 mg Oral tab 1 tabs 2 times per day [Active]; trazodone 100 mg Oral tab 1 tab nightly [Active]; - PMHx: 17:36 Anemia; CAD; cardiomegaly; CHF; chronic renal disease; Cirrhosis; Diabetes - IDDM; bp Dialysis; High Cholesterol; Hypertension; Myocardial infarction; pleural effusion; pulmonary nodule; Visually impared; - Immunization history:: Adult Immunizations up to date. - Social history:: Smoking status: Patient/guardian denies using tobacco. - Ebola Screening: : No symptoms or risks identified at this time. - Family history:: not pertinent. - Hospitalizations: : No recent hospitalization is reported. ROS: 20:35 Constitutional: Negative for fever, chills, and weight loss, Eyes: Negative for injury, wa pain, redness, and discharge, ENT: Negative for injury, pain, and discharge, Neck: Negative for injury, pain, and swelling, Back: Negative for injury and pain, : Negative for injury, bleeding, discharge, and swelling, MS/Extremity: Negative for injury and deformity, Skin: Negative for injury, rash, and discoloration, Neuro: Negative for headache, weakness, numbness, tingling, and seizure, Psych: Negative for depression, anxiety, suicide ideation, homicidal ideation, and hallucinations. 20:35 Cardiovascular: Positive for chest pain, Negative for edema. 20:35 Respiratory: Positive for shortness of breath, Negative for cough. 20:35 Abdomen/GI: Positive for abdominal pain, Negative for vomiting, diarrhea. Exam: 20:35 Constitutional: This is a well developed, well nourished patient who is awake, alert, wa and in no acute distress. Head/Face: Normocephalic, atraumatic. Eyes: Pupils equal round and reactive to light, extra-ocular motions intact. Lids and lashes normal. Conjunctiva and sclera are non-icteric and not injected. Cornea within normal limits. Periorbital areas with no swelling, redness, or edema. ENT: Nares patent. No nasal discharge, no septal abnormalities noted. Tympanic membranes are normal and external auditory canals are clear. Oropharynx with no redness, swelling, or masses, exudates, or evidence of obstruction, uvula midline. Mucous membranes moist. Neck: Trachea midline, no thyromegaly or masses palpated, and no cervical lymphadenopathy. Supple, full range of motion without nuchal rigidity, or vertebral point tenderness. No Meningismus. Chest/axilla: Normal chest wall appearance and motion. Nontender with no deformity. No lesions are appreciated. Back: No spinal tenderness. No costovertebral tenderness. Full range of motion. Skin: Warm, dry with normal turgor. Normal color with no rashes, no lesions, and no evidence of cellulitis. MS/ Extremity: Pulses equal, no cyanosis. Neurovascular intact. Full, normal range of motion. Neuro: Awake and alert, GCS 15, oriented to person, place, time, and situation. Cranial nerves II-XII grossly intact. Motor strength 5/5 in all extremities. Sensory grossly intact. Cerebellar exam normal. Normal gait. Psych: Awake, alert, with orientation to person, place and time. Behavior, mood, and affect are within normal limits. 20:35 Cardiovascular: Rate: normal, Rhythm: regular, Pulses: no pulse deficits are appreciated, Heart sounds: normal, Edema: is not appreciated, JVD: is not appreciated. 20:35 Respiratory: the patient does not display signs of respiratory distress, Respirations: normal, Breath sounds: coarse bilatetally, Respiratory rate: nml Vital Signs: 17:36 BP 164 / 73; Pulse 64; Resp 20; Temp 97.8; Pulse Ox 95% ; Weight 55.34 kg; bp 19:15 BP 157 / 83; Pulse 63; Resp 20 S; Temp 98.3(O); Pulse Ox 96% on 2 lpm NC; cc3 20:21 BP 143 / 67; Pulse 67; Resp 20 S; Pulse Ox 96% on 2 lpm NC; cc3 21:30 BP 157 / 59; Pulse 65; Resp 20 S; Pulse Ox 98% on 2 lpm NC; cc3 22:20 BP 158 / 62; Pulse 66; Resp 21 S; Pulse Ox 96% on 2 lpm NC; cc3 MDM: 18:14 Patient medically screened. wa 20:36 Differential diagnosis: acute myocardial infarction, acute pericarditis, coronary wa artery disease congestive heart failure cholecystitis, Cholelithiasis myocarditis, pancreatitis, pericarditis, pleurisy, pneumonia, pneumothorax, pulmonary embolus, stable angina, thoracic aortic disection, unstable angina. 20:38 ED course: pt refused CT scan of abd and pelvis. myself and his family attempted to wa talk him into receiving the study to no avail. see refusal form signed on the chart.. 20:41 Data reviewed: lab test result(s), EKG, radiologic studies. Test interpretation: by ED ny physician or midlevel provider: EKG: interp by me: HR 65. LAD. diffuse ST-T changes. LAE. labs noted for troponin of 0.08. BNP 07329. plt 125. anemia at 10.5/31.6. wbc 4.2. CXR pulm edema. 20:51 ED course: states pain reduced to 40%. clinically noted dyspneic. troponin noted wa elevated. pulm edema on CXR. [facility] will give a dose of nitro SL. fentanyl IV for pain pain. will have sign AMA. I have tried on several occasions to get this pt to follow my recommendations to no avail. family at bedside and have witnessed my discussion. 21:37 ED course: 2130 hrs: pt still adamantly refuse CT and or admission for further ny management. states 'he does not see the point." After several attempts to get pt to stay, I unfortunately has to allow pt to sign AMA. pt with full capacity clinically to do so. 12/27 18:41 Order name: Basic Metabolic Panel ny 12/27 18:41 Order name: CBC with Diff ny 12/27 18:41 Order name: LFT's; Complete Time: 20:31 ny 12/27 18:41 Order name: Magnesium; Complete Time: 20:31 ny 12/27 18:41 Order name: NT PRO-BNP; Complete Time: 20:31 ny 12/27 18:41 Order name: PT-INR; Complete Time: 20:31 ny 12/27 18:41 Order name: Troponin (emerg Dept Use Only); Complete Time: 20:31 ny 12/27 18:41 Order name: XRAY Chest (1 view); Complete Time: 20:31 ny 12/27 18:41 Order name: Creatinine for Radiology; Complete Time: 20:31 ny 12/27 18:41 Order name: Lipase; Complete Time: 20:31 ny 12/27 18:42 Order name: Basic Metabolic Panel; Complete Time: 20:31 EDMD 12/27 18:42 Order name: CBC with Automated Diff; Complete Time: 20:31 [facility] 12/27 17:37 Order name: EKG; Complete Time: 17:38 bp 12/27 17:37 Order name: EKG - Nurse/Tech; Complete Time: 18:42 bp 12/27 18:41 Order name: Cardiac monitoring; Complete Time: 18:41 ny 12/27 18:41 Order name: IV Saline Lock; Complete Time: 18:57 ny 12/27 18:41 Order name: Labs collected and sent; Complete Time: 18:57 ny 12/27 18:41 Order name: O2 Per Protocol; Complete Time: 18:42 ny 12/27 18:41 Order name: O2 Sat Monitoring; Complete Time: 18:42 ny Administered Medications: 18:58 Drug: Zofran 4 mg Route: IVP; Site: left forearm; hj 19:25 Follow up: Response: No adverse reaction; Nausea is decreased cc3 18:58 Drug: morphine 4 mg Route: IVP; Site: left forearm; hj 19:25 Follow up: Response: No adverse reaction; Pain is decreased cc3 21:00 Drug: Nitroglycerin 0.4 mg Route: Sublingual; cc3 21:30 Follow up: Response: No adverse reaction; Pain is decreased; chest pain decreased to cc3 50% as per patient 21:00 Drug: fentaNYL (PF) 50 mcg Route: IVP; Site: left forearm; cc3 21:30 Follow up: Response: No adverse reaction; Pain is decreased cc3 21:50 Drug: morphine 4 mg Route: IVP; Site: left forearm; cc3 22:20 Follow up: Response: No adverse reaction; Pain is decreased cc3 Disposition: 12/27/18 21:41 Patient has left against medical advice. Impression: acute chest pain, acute abdominal pain, CHF. - Patients states they are going to Home. - Condition is Stable. - Prescriptions for Zofran 4 mg Oral Tablet - take 1 tablet by ORAL route every 12 hours As needed; 20 tablet. Tramadol 50 mg Oral Tablet - take 1 tablet by ORAL route every 8 hours as needed; 12 tablet. Follow up: Raheel Zeng MD; When: 24 Hours; Reason: Recheck today's complaints. Follow up: Mark Segovia MD; When: 1 - 2 days; Reason: Recheck today's complaints. - Problem is new. - Symptoms have improved. - Notes: you hav refused CT scan to evaluate your belly pain. you have also refused to be admitted for further pain control and management. you have fluid overload and may need dialysis sooner than your alotted time. please return if worse or change your mind Signatures: Dispatcher [employer] EDMS Jesse Kwong RN Mark De Luna MD MD wa Peltier, Brian, RN RN Nicole Hagan cc3 Corrections: (The following items were deleted from the chart) 20:47 18:43 Abdomen Pelvis Wo Con+CT.[id number].BRZ ordered. EDMS EDMS 22:28 21:41 12/27/2018 21:41 Patients has left against medical advice. Impression: acute cc3 chest pain; acute abdominal pain; CHF. Patient states they are going to Home. Condition is Stable. Follow up: Raheel Zeng; When: 24 Hours; Reason: Recheck today's complaints. Follow up: Mark Segovia; When: 1 - 2 days; Reason: Recheck today's complaints. Problem is new. Symptoms have improved. wa
--- NOTE | 2018-12-27 22:20 | EKG ---
Test Date: 2018-12-27 Test Time: 17:48:57 Molecular Geneticist: CHEY MEASUREMENT RESULTS: Intervals: Rate: 65 NC: 178 QRSD: 88 QT: 428 QTc: 445 [place]: P: 71 NC: 178 QRS: -54 T: 82 INTERPRETIVE STATEMENTS: Normal sinus rhythm Possible Left atrial enlargement Left axis deviation Inferior infarct, age undetermined Anteroseptal infarct, age undetermined Abnormal ECG Compared to ECG 12/22/2018 16:41:19 T-wave abnormality no longer present Possible ischemia no longer present Myocardial infarct finding still present Electronically Signed On 12-27-18 22:20:18 CDT by Raheel Zeng
[2018-12-27 23:02] VITALS: TEMP 98.3
[2018-12-27 23:04] VITALS: BP 157/59; O2SAT 98
== END 2018-12-27 22:28 | disposition left against medical advice (07) ==
LOC: ER 17:06
DX: R07.9 Chest pain, unspecified (principal); D64.9 Anemia, unspecified; I13.0 Hypertensive heart and chronic kidney disease with heart failure and stage 1 through stage 4 chronic kidney disease, or unspecified chronic kidney disease; I50.9 Heart failure, unspecified; N18.9 Chronic kidney disease, unspecified; E11.22 Type 2 diabetes mellitus with diabetic chronic kidney disease; E78.00 Pure hypercholesterolemia, unspecified; I51.7 Cardiomegaly; Z79.4 Long term (current) use of insulin
CPT/HCPCS: 93005; 85025; 80048; 36415; 83735; 85610; 80076; 84484; 83690; 83880; 71045; 96375; 96374; 99284; J3010; J2405

== ENCOUNTER 2019-01-01 17:27 | Emergency (ER) | payer OTHER ==
--- OUTSIDE RECORDS SUMMARY | 2019-01-01 17:32 | XMS REPORT | Clinical Summary ---
:1940 Author Organization [facility] Address [address] [place] [address] Care Team Providers Name Role Phone Moo [...] 03/01/2018 Orders Only General Internal Medicine after 12/31/2017 Family History Medical History Relation Name Comments [...] 452 ms QTC Calculation(Bazett) 458 ms P Jackson 66 degrees R Jackson -24 degrees T Jackson 140 degrees Normal sinus rhythm Possible Left [...] MICROSCOPIC STAT 03/01/2018 10:19 AM CDT after 12/31/2017 Results Urinalysis w/Microscopic (03/03/2018 11:08 AM CDT)Only the most recent of2 resultswithin the time period is included. Color, UA Yellow [facility] Clarity, UA Hazy [facility] Specific [place], UA 1.012 1.001 - 1.035 [facility] pH, UA 6.0 5.0 - 8.0 [facility] Protein, UA 600 mg/dL (A) Negative [facility] Glucose, UA 100 mg/dL (A) Negative [facility] Ketones, UA Negative Negative [facility] Bilirubin, UA Negative Negative [facility] Blood, UA Moderate (A) Negative [facility] Nitrite, UA Negative Negative [facility] Leukocytes, UA Small (A) Negative [facility] Urobilinogen, UA 0.2 0.2 - 1.0 mg/dL [facility] RBC, UA 27 /HPF [facility] WBC, UA 12 /HPF [facility] Bacteria, UA Occasional [facility] Mucus Rare [facility] Squam Epithel, UA <1 /HPF [facility] Hyaline Casts, UA 2 /LPF [facility] Granular Casts, UA 5 /LPF [facility] Specimen Source Urine, Yusuf [facility] Specimen Urine Performing Organization Address [facility] Phone Number [facility] [address] [place] [address] [place] Urine culture (03/03/2018 11:08 AM CDT) Result 70-79,000 col/mL Pseudomonas [facility] aeruginosa (A) [facility] Specimen Urine Organism Antibiotic Method [...] <=2: Susceptible Performing Organization Address [facility] Phone Number [address] [address] [place] ED ECG Interpretation (03/02/2018 7:12 AM CDT) Narrative Performed At Macrina Gómez MD 03/02/20187:12 AM ECG/EKG Interpretation Date/Time: 03/01/2018 10:25 AM Performed by: MACRINA GÓMEZ. Authorized by: MACRINA GÓMEZ The ECG was interpreted by ED physician. The ECG is interpreted as sinus rhythm. Rate is normal rate. Conduction: conduction normal. ST segments abnormal. T waves abnormal. Jackson is normal. Other findings: no other findings. Clinical Impression: non-specific ECG and abnormal ECG CT abdomen pelvis without contrast (03/01/2018 1:46 PM CDT) Specimen Narrative Performed At FINAL REPORT [employer] [facility] ABDOMINAL AND PELVIS CT [facility] Body Reading Room Procedure [...] [facility] Body Reading Room Performing Organization Address City/State/Zipcode Phone Number GE RIS CBC with platelet count + automated diff (03/01/2018 10:29 AM CDT) WBC 5.6 3.5 - 10.5 K/L [facility] RBC 3.10 (L) 4.63 - 6.08 M/L [facility] Hemoglobin 9.8 (L) 13.7 - 17.5 GM/DL [facility] Hematocrit 29.7 (L) 40.1 - 51.0 % [facility] MCV 95.8 (H) 79.0 - 92.2 fL [facility] MCH 31.6 25.7 - 32.2 pg [facility] MCHC 33.0 32.3 - 36.5 GM/DL [facility] RDW 14.0 11.6 - 14.4 % [facility] Platelets 171 150 - 450 K/CU MM [facility] MPV 11.1 9.4 - 12.4 fL [facility] nRBC 0 0 - 0 /100 WBC [facility] % Neutros 69 % [facility] % Lymphs 16 % [facility] % Monos 10 % [facility] % Eos 4 % [facility] % Baso 1 % [facility] # Neutros 3.88 1.78 - 5.38 K/L [facility] # Lymphs 0.88 (L) 1.32 - 3.57 K/L [facility] # Monos 0.56 0.30 - 0.82 K/L [facility] # Eos 0.25 0.04 - 0.54 K/L [facility] # Baso 0.03 0.01 - 0.08 K/L [facility] Immature Granulocytes-Relative 0 0 - 1 % [facility] Specimen Blood Performing Organization Address City/State/Zipcode Phone Number [address] [address] [phone] CENTER Lipase (03/01/2018 10:29 AM CDT) Lipase 61 8 - 78 U/L [facility] Specimen Blood Performing Organization Address City/[facility] Phone Number [address] [address] [place] Amylase (03/01/2018 10:29 AM CDT) Amylase 113 25 - 125 U/L [facility] Specimen Blood Performing Organization Address City/[facility]/Zipcode Phone Number [address] [address] [phone] [place] Hepatic function panel (03/01/2018 10:29 AM CDT) Protein, Total 6.8 6.0 - 8.3 gm/dL [facility] Albumin 3.5 3.5 - 5.0 g/dL [facility] Total Bilirubin 0.4 0.2 - 1.2 mg/dL [facility] Bilirubin, Direct 0.2 0.1 - 0.5 mg/dL [facility] Alkaline Phosphatase 78 40 - 150 U/L [facility] AST 20 5 - 34 U/L [facility] ALT 21 6 - 55 U/L [facility] Specimen Blood Performing Organization Address City/[facility] Phone Number [facility] [address] [place] [phone] [place] Basic Metabolic Panel (03/01/2018 10:29 AM CDT) Sodium 136 136 - 145 meq/L [facility] Potassium 4.0 3.5 - 5.1 meq/L [facility] Chloride 108 (H) 98 - 107 meq/L [facility] CO2 15 (L) 22 - 29 meq/L [facility] BUN 80 (H) 7 - 21 mg/dL [facility] Creatinine 4.79 (H) 0.57 - 1.25 mg/dL [facility] Glucose 84 70 - 105 mg/dL [facility] Calcium 8.9 8.4 - 10.2 mg/dL [facility] EGFR 12Comment: ESTIMATED GFR IS mL/min/1.73 sq m [facility] NOT ACCURATE CREATININE [facility] CLEARANCE IN PREDICTING GLOMERULAR FILTRATION RATE. ESTIMATED GFR IS NOT APPLICABLE FOR DIALYSIS PATIENTS. Specimen Blood Performing Organization Address City/[facility] Phone Number [facility] [address] [place] [phone] [place] ECG 12 lead (03/01/2018 10:20 AM CDT) Specimen Narrative Performed At Ventricular Rate 62 BPM [facility]USE Atrial Rate 62 BPM P-R Interval 178 ms QRS Duration 96 ms Q-T Interval 452 ms QTC Calculation(Bazett) 458 ms P Jackson 66 degrees R Jackson -24 degrees T Jackson 140 degrees Normal sinus rhythm Possible Left [...] 452 ms QTC Calculation(Bazett) 458 ms P Jackson 66 degrees R Jackson -24 degrees T Jackson 140 degrees Normal sinus rhythm Possible Left [...] Address City/State/Zipcode Phone Number GE MUSE after 12/31/2017 Insurance Payer Benefit Plan / Group Subscriber ID Type Phone Address MEDICARE MEDICARE A B xxxxxxxxxx Medicare MEDICAID MEDICAID [facility] xxxxxxxxx Medicaid Advance Directives For more information, please contact:[address] [phone] Code Status Date Activated Date Inactivated Comments [...]
--- OUTSIDE RECORDS SUMMARY | 2019-01-01 17:32 | XMS REPORT ---
:1940 [facility] Address [address] [place] [address] Dr. [address] [place] [id number] Care Team Providers Name Role Phone LAZRODNEY [...] Comments CULTURE (BEAKER) (test PSEUDOMONAS 70-79,000 col/mL idfu=[id number]) AERUGINOSA Pseudomonas aeruginosa Amikacin (test code=1) Susceptible [...] code=25) Resistant <0 or >4 URINALYSIS W/ [id number] 12:06:00 Test Item Value Reference Range Comments COLOR (BEAKER) (test qzbk=216) Yellow CLARITY (BEAKER) (test hjqp=188) Hazy SPECIFIC GRAVITY UA (BEAKER) (test cpfn=008) 1.012 1.001-1.035 PH UA (BEAKER) (test fgoh=203) 6.0 5.0-8.0 PROTEIN UA (BEAKER) (test qbpa=058) 600 mg/dL Negative GLUCOSE UA (BEAKER) (test cyee=130) 100 mg/dL Negative KETONES UA (BEAKER) (test hjqo=426) Negative Negative BILIRUBIN UA (BEAKER) (test zsqb=309) Negative Negative BLOOD UA (BEAKER) (test gyzy=064) Moderate Negative NITRITE UA (BEAKER) (test felm=821) Negative Negative LEUKOCYTE ESTERASE UA (BEAKER) (test isfg=403) Small Negative UROBILINOGEN UA (BEAKER) (test pmnj=118) 0.2 mg/dL 0.2-1.0 RBC UA (BEAKER) (test vxei=286) 27 /HPF WBC UA (BEAKER) (test ztxz=778) 12 /HPF BACTERIA (BEAKER) (test fkmk=402) Occasional MUCUS (BEAKER) (test nzmf=9030) Rare SQUAMOUS EPITHELIAL (BEAKER) (test qrvv=262) < /HPF HYALINE CASTS (BEAKER) (test qowa=858) 2 /LPF GRANULAR CASTS (BEAKER) (test jflo=778) 5 /LPF SOURCE(BEAKER) (test djcj=0609) Urine, Yusuf CT, [id number] 15:15:00Reason for exam:->ABDOMINAL PAINWhat is the patient's [...] Date/ Time: 03/01/2018 15:15:27 Reading Location: [address] Body Reading Room BASIC METABOLIC [id number] 11:04:00 Test Item Value Reference Range Comments SODIUM (BEAKER) (test 136 meq/L 136-145 jemu=355) POTASSIUM (BEAKER) (test 4.0 meq/L 3.5-5.1 qvau=451) CHLORIDE (BEAKER) (test 108 meq/L 98-107 omsm=373) CO2 (BEAKER) (test 15 meq/L 22-29 tnzz=064) BLOOD UREA NITROGEN 80 mg/dL 7-21 (BEAKER) (test cgvz=904) CREATININE (BEAKER) (test 4.79 mg/dL 0.57-1.25 hdkl=974) GLUCOSE RANDOM (BEAKER) 84 mg/dL 70-105 (test npis=607) CALCIUM (BEAKER) (test 8.9 mg/dL 8.4-10.2 vjcq=884) EGFR (BEAKER) (test 12 mL/min/1.73 sq m ESTIMATED GFR IS NOT zmst=8076) ACCURATE CREATININE CLEARANCE IN PREDICTING GLOMERULAR FILTRATION RATE. ESTIMATED GFR IS NOT APPLICABLE FOR DIALYSIS PATIENTS. [id number] 11:02:00 Test Item Value Reference Range Comments LIPASE (BEAKER) (test umux=690) 61 U/L 8-78 [id number] 11:02:00 Test Item Value Reference Range Comments AMYLASE (BEAKER) (test qhoq=425) 113 U/L 25-125 HEPATIC FUNCTION [id number] 11:02:00 Test Item Value Reference Range Comments TOTAL PROTEIN (BEAKER) (test mmhm=511) 6.8 gm/dL 6.0-8.3 ALBUMIN (BEAKER) (test auft=1376) 3.5 g/dL 3.5-5.0 BILIRUBIN TOTAL (BEAKER) (test imie=286) 0.4 mg/dL 0.2-1.2 BILIRUBIN DIRECT (BEAKER) (test cara=025) 0.2 mg/dL 0.1-0.5 ALKALINE PHOSPHATASE (BEAKER) (test qqei=494) 78 U/L 40-150 AST (SGOT) (BEAKER) (test fhzb=631) 20 U/L 5-34 ALT (SGPT) (BEAKER) (test jfyt=529) 21 U/L 6-55 URINALYSIS W/ [id number] 11:01:00 Test Item Value Reference Range Comments COLOR (BEAKER) (test psbh=716) Light Yellow CLARITY (BEAKER) (test smzg=304) Clear SPECIFIC GRAVITY UA (BEAKER) (test hxqh=377) 1.006 1.001-1.035 PH UA (BEAKER) (test vxar=416) 6.0 5.0-8.0 PROTEIN UA (BEAKER) (test pkmi=080) 300 mg/dL Negative GLUCOSE UA (BEAKER) (test fzcc=366) 30 mg/dL Negative KETONES UA (BEAKER) (test vkuj=705) Negative Negative BILIRUBIN UA (BEAKER) (test ihdi=284) Negative Negative BLOOD UA (BEAKER) (test mnzz=483) Trace Negative NITRITE UA (BEAKER) (test ctfl=703) Negative Negative LEUKOCYTE ESTERASE UA (BEAKER) (test rjxd=436) Negative Negative UROBILINOGEN UA (BEAKER) (test ipbw=688) 0.2 mg/dL 0.2-1.0 RBC UA (BEAKER) (test xezv=176) < /HPF WBC UA (BEAKER) (test wumq=835) < /HPF BACTERIA (BEAKER) (test afyn=502) Rare MUCUS (BEAKER) (test shak=1411) Rare SOURCE(BEAKER) (test wcov=5994) Urine, Voided CBC W/PLT COUNT & AUTO [id number] 10:49:00 Test Item Value Reference Range Comments WHITE BLOOD CELL COUNT (BEAKER) (test oyvp=186) 5.6 K/ L 3.5-10.5 RED BLOOD CELL COUNT (BEAKER) (test oyeo=823) 3.10 M/ L 4.63-6.08 HEMOGLOBIN (BEAKER) (test sgen=606) 9.8 GM/DL 13.7-17.5 HEMATOCRIT (BEAKER) (test sror=614) 29.7 % 40.1-51.0 MEAN CORPUSCULAR VOLUME (BEAKER) (test mgom=900) 95.8 fL 79.0-92.2 MEAN CORPUSCULAR HEMOGLOBIN (BEAKER) (test 31.6 pg 25.7-32.2 ozmr=388) MEAN CORPUSCULAR HEMOGLOBIN CONC (BEAKER) (test 33.0 GM/DL 32.3-36.5 ajcu=460) RED CELL DISTRIBUTION WIDTH (BEAKER) (test 14.0 % 11.6-14.4 yyon=019) PLATELET COUNT (BEAKER) (test umiv=591) 171 K/CU MM 150-450 MEAN PLATELET VOLUME (BEAKER) (test fufr=295) 11.1 fL 9.4-12.4 NUCLEATED RED BLOOD CELLS (BEAKER) (test 0 /100 WBC 0-0 ciyf=415) NEUTROPHILS RELATIVE PERCENT (BEAKER) (test 69 % cbdz=186) LYMPHOCYTES RELATIVE PERCENT (BEAKER) (test 16 % qatx=133) MONOCYTES RELATIVE PERCENT (BEAKER) (test 10 % ejza=593) EOSINOPHILS RELATIVE PERCENT (BEAKER) (test 4 % hfne=925) BASOPHILS RELATIVE PERCENT (BEAKER) (test 1 % fnsx=127) NEUTROPHILS ABSOLUTE COUNT (BEAKER) (test 3.88 K/ L 1.78-5.38 afnh=869) LYMPHOCYTES ABSOLUTE COUNT (BEAKER) (test 0.88 K/ L 1.32-3.57 ttcw=203) MONOCYTES ABSOLUTE COUNT (BEAKER) (test 0.56 K/ L 0.30-0.82 yrch=090) EOSINOPHILS ABSOLUTE COUNT (BEAKER) (test 0.25 K/ L 0.04-0.54 ddnu=605) BASOPHILS ABSOLUTE COUNT (BEAKER) (test 0.03 K/ L 0.01-0.08 npsx=025) IMMATURE GRANULOCYTES-RELATIVE PERCENT (BEAKER) 0 % 0-1 (test beej=0810)
[2019-01-01] MEDS ORDERED: ONDANSETRON 4 MG/2 ML VIAL ONE (18:44)
[2019-01-01] MEDS ORDERED: MORPHINE 4 MG/ML SYR ONE (18:44)
[2019-01-01 18:51] LABS: Absolute Lymphocytes (CBC) 0.6 K/uL (0.7-4.9); Basophils % 0.8 % (0-1.3); Eosinophils % 5.1 % (0-4.4); Hematocrit 32.3 % (39.6-49.0); Lymphocytes % 13.7 % (15.3-44.8); Monocytes % 9.3 % (3.3-12.3); RBC Red Blood Cell Count 3.22 M/uL (4.33-5.43)
[2019-01-01 18:57] LABS: Albumin 3.2 g/dL (3.4-5.0); Bilirubin Direct 0.3 mg/dL (0-0.2); Bilirubin Total 0.6 mg/dL (0.2-1.0); Potassium 4.6 mmol/L (3.5-5.1); Protein, Total 6.8 g/dL (6.4-8.2)
--- NOTE | 2019-01-01 19:43 | ER ---
Nurse's Notes [facility] Name: Blaise Quarles Age: 78 yrs Sex: Male : 1940 Arrival Date: 01/01/2019 Time: 17:31 Bed 15 Private MD: Diagnosis: Unspecified abdominal pain Presentation: 01/01 17:41 Presenting complaint: Patient states: lower abd pain since this morning. Denies la1 nausea/vomiting, pt wants only a shot for the pain, does not want blood work. Transition of care: patient was not received from another setting of care. Onset of symptoms was January 01, 2019. Risk Assessment: Do you want to hurt yourself or someone else? Patient reports no desire to harm self or others. Initial Sepsis Screen: Does the patient meet any 2 criteria? No. Patient's initial sepsis screen is negative. Does the patient have a suspected source of infection? No. Patient's initial sepsis screen is negative. Care prior to arrival: None. 17:41 Method Of Arrival: Wheelchair la1 17:41 Acuity: SARATH 3 la1 Historical: - Allergies: 17:40 Aspirin; la1 - PMHx: 17:40 Anemia; CAD; cardiomegaly; CHF; chronic renal disease; Cirrhosis; Diabetes - IDDM; la1 Dialysis; High Cholesterol; Hypertension; Myocardial infarction; pleural effusion; pulmonary nodule; Visually impared; - Immunization history:: Adult Immunizations up to date. - Social history:: Smoking status: Patient/guardian denies using tobacco. - Ebola Screening: : No symptoms or risks identified at this time. Screenin:20 Abuse screen: Denies threats or abuse. Nutritional screening: No deficits noted. em Tuberculosis screening: No symptoms or risk factors identified. Fall Risk None identified. Assessment: 18:20 General: Appears in no apparent distress. uncomfortable, Behavior is calm, cooperative, em Denies fever. Pain: Complains of pain in abdomen. Neuro: Level of Consciousness is awake, alert, obeys commands, Oriented to person, place, time, situation. Cardiovascular: Capillary refill < 3 seconds Patient's skin is warm and dry. Respiratory: Airway is patent Respiratory effort is even, unlabored, Respiratory pattern is regular, symmetrical. GI: Abdomen is flat, Bowel sounds present X 4 quads. Abd is soft X 4 quads Abdomen is tender to palpation X 4 quads. Patient currently denies diarrhea, nausea, vomiting. Derm: Skin is intact, is healthy with good turgor, Skin is pink, warm \T\ dry. Musculoskeletal: Capillary refill < 3 seconds, Range of motion: intact in all extremities. 18:40 Reassessment: I agree with above assessment by Judah Sanderson LVN. iw Vital Signs: 17:44 Pulse 62; Resp 16; Temp 97.7; Pulse Ox 95% on R/A; Weight 55.34 kg; la1 17:45 BP 170 / 72; la1 18:20 BP 161 / 65; Pulse 59; Resp 18; Pulse Ox 97% on R/A; Pain 10/10; em ED Course: 17:31 Patient arrived in ED. mr 17:43 Triage completed. la1 17:43 Arm band placed on left wrist. la1 17:54 Gerald Livingston PA is PHCP. [facility] 17:54 Ron Viveros MD is Attending Physician. [facility] 18:14 Judah Sanderson LVN is Primary Nurse. em 18:20 Patient has correct armband on for positive identification. Bed in low position. Call em light in reach. Side rails up X2. Adult w/ patient. Pulse ox on. NIBP on. 18:20 Initial lab(s) drawn, by me, sent to lab. Inserted saline lock: 20 gauge in right em forearm, using aseptic technique. Blood collected. 19:50 No provider procedures requiring assistance completed. IV discontinued, intact, ls4 bleeding controlled, No redness/swelling at site. Pressure dressing applied. Administered Medications: 18:32 Drug: Zofran 4 mg Route: IVP; Site: right forearm; iw 18:34 Drug: morphine 4 mg Route: IVP; Site: right forearm; iw Outcome: 19:43 Discharge ordered by . nallely 20:15 Discharged to home via wheelchair, with family. ls4 20:15 Condition: good 20:15 Discharge instructions given to patient, family, Instructed on discharge instructions, follow up and referral plans. medication usage, Demonstrated understanding of instructions, follow-up care, medications. 20:16 Patient left the ED. ls4 Signatures: Gerald Livingston PA PA jmm Rivera, Mary mr Judah Sanderson LVN LVN Rosibel Estrada, RN RN iw Richei Dubose RN RN la1 Candis Petersen RN RN ls4
--- NOTE | 2019-01-01 19:44 | EDPHYS ---
Physician Documentation [facility] Name: Blaise Quarles Age: 78 yrs Sex: Male : 1940 Arrival Date: 01/01/2019 Time: 17:31 Bed 15 Private MD: ED Physician Ron Viveros HPI: 01/01 19:40 The patient presents with abdominal pain in the left lower quadrant. Onset: The jmm symptoms/episode began/occurred today. Associated signs and symptoms: Pertinent negatives: nausea and vomiting, diarrhea, fever. The symptoms are described as achy. Modifying factors: The symptoms are alleviated by nothing, the symptoms are aggravated by pressure, touching the area. The patient has experienced similar episodes in the past, several times. Patient states having a similar episode of pain 4 days prior. . Historical: - Allergies: 17:40 Aspirin; la1 - PMHx: 17:40 Anemia; CAD; cardiomegaly; CHF; chronic renal disease; Cirrhosis; Diabetes - IDDM; la1 Dialysis; High Cholesterol; Hypertension; Myocardial infarction; pleural effusion; pulmonary nodule; Visually impared; - Immunization history:: Adult Immunizations up to date. - Social history:: Smoking status: Patient/guardian denies using tobacco. - Ebola Screening: : No symptoms or risks identified at this time. ROS: 19:40 Constitutional: Negative for fever, chills, and weight loss, Cardiovascular: Negative jmm for chest pain, palpitations, and edema, Respiratory: Negative for shortness of breath, cough, wheezing, and pleuritic chest pain. 19:40 Abdomen/GI: Positive for abdominal pain. 19:40 All other systems are negative. Exam: 19:40 Constitutional: This is a well developed, well nourished patient who is awake, alert, jmm and in no acute distress. Head/Face: atraumatic. Eyes: EOMI, no conjunctival erythema appreciated ENT: Moist Mucus Membranes Neck: Trachea midline, Supple Chest/axilla: Normal chest wall appearance and motion. Cardiovascular: Regular rate and rhythm. No edema appreciated Respiratory: Normal respirations, no respiratory distress appreciated 19:40 Skin: General appearance color normal MS/ Extremity: Moves all extremities, no obvious deformities appreciated, no edema noted to the lower extremities Neuro: Awake and alert, normal gait Psych: Behavior is normal, Mood is normal, Patient is cooperative and pleasant 19:40 Abdomen/GI: Inspection: abdomen appears normal, Bowel sounds: normal, Palpation: soft, mild abdominal tenderness, in the left upper quadrant and left lower quadrant. 19:40 Back: ROM is normal. 19:40 Musculoskeletal/extremity: ROM: intact in all extremities. Vital Signs: 17:44 Pulse 62; Resp 16; Temp 97.7; Pulse Ox 95% on R/A; Weight 55.34 kg; la1 17:45 BP 170 / 72; la1 18:20 BP 161 / 65; Pulse 59; Resp 18; Pulse Ox 97% on R/A; Pain 10/10; em MDM: 17:58 Patient medically screened. [facility] 19:40 Data reviewed: vital signs, nurses notes. Data reviewed: old medical records. [facility] Counseling: I had a detailed discussion with the patient and/or guardian regarding: the historical points, exam findings, and any diagnostic results supporting the discharge/admit diagnosis, lab results, radiology results, the need for outpatient follow up, to return to the emergency department if symptoms worsen or persist or if there are any questions or concerns that arise at home. Response to treatment: the patient's symptoms have resolved after treatment, and as a result, I will discharge patient. Refusal of service: The patient/guardian displays adequate decision making capability and despite a detailed discussion of alternatives, benefits, risks, and consequences refuses: CT Scan. ED course: Patient is alert and non toxic in appearance in the ED. Patient was otherwise given strict return precautions. Patient understood and agrees with the plan of care. . 01/01 18:08 Order name: Basic Metabolic Panel [facility] 01/01 18:08 Order name: CBC with Diff [facility] 01/01 18:08 Order name: Creatinine for Radiology [facility] 01/01 18:08 Order name: Hepatic Function; Complete Time: 19:13 [facility] 01/01 18:08 Order name: Lipase; Complete Time: 19:13 [facility] 01/01 18:09 Order name: Basic Metabolic Panel; Complete Time: 19:13 [facility] 01/01 18:08 Order name: IV Saline Lock; Complete Time: 18:37 [facility] 01/01 18:08 Order name: Labs collected and sent; Complete Time: 18:37 [facility] 01/01 18:09 Order name: CBC with Automated Diff; Complete Time: 19:23 [facility] 01/01 18:09 Order name: Creatinine (Radiology Only); Complete Time: 19:13 EDMS Administered Medications: 18:32 Drug: Zofran 4 mg Route: IVP; Site: right forearm; iw 18:34 Drug: morphine 4 mg Route: IVP; Site: right forearm; iw Disposition: 01/01/19 19:43 Discharged to Home. Impression: Unspecified abdominal pain. - Condition is Stable. - Discharge Instructions: Abdominal Pain, Adult. - Medication Reconciliation Form, Thank You Letter, Antibiotic Education, Prescription Opioid Use form. - Follow up: Private Physician; When: 2 - 3 days; Reason: Recheck today's complaints, Continuance of care, Re-evaluation by your physician. Addendum: 01/03/2019 09:44 Co-signature as Attending Physician, Ron Viveros MD I agree with the assessment and c gómez plan of care. Signatures: Dispatcher [employer] [facility] Ron Viveros MD MD cha Mickail, Joel, PA PA jmm Williams, Irene RN HUONG Richie Dubose RN RN la1 Candis Petersen RN RN ls4 Corrections: (The following items were deleted from the chart) 01/01 20:16 19:43 01/01/2019 19:43 Discharged to Home. Impression: Unspecified abdominal pain. ls4 Condition is Stable. Forms are Medication Reconciliation Form, Thank You Letter, Antibiotic Education, Prescription Opioid Use. Follow up: Private Physician; When: 2 - 3 days; Reason: Recheck today's complaints, Continuance of care, Re-evaluation by your physician. nallely
[2019-01-01 20:47] VITALS: TEMP 97.7
[2019-01-01 20:50] VITALS: BP 161/65; O2SAT 97
== END 2019-01-01 20:16 | disposition home or self-care (01) ==
LOC: ER 17:27
DX: R10.32 Left lower quadrant pain (principal); I10 Essential (primary) hypertension; I25.2 Old myocardial infarction; Z88.6 Allergy status to analgesic agent
CPT/HCPCS: 85025; 80048; 36415; 80076; 83690; 96375; 96374; 99284; J2405

== ENCOUNTER 2019-01-03 18:46 | Emergency (ER) | payer OTHER ==
--- OUTSIDE RECORDS SUMMARY | 2019-01-03 18:50 | XMS REPORT | Clinical Summary ---
:1940 Author Organization [facility] Address [address] [place] [address] Care Team Providers Name Role Phone Moo [...] 03/01/2018 Orders Only General Internal Medicine after 01/02/2018 Family History Medical History Relation Name Comments [...] 452 ms QTC Calculation(Bazett) 458 ms P [place] 66 degrees R [place] -24 degrees T [place] 140 degrees Normal sinus rhythm Possible Left [...] MICROSCOPIC STAT 03/01/2018 10:19 AM CDT after 01/02/2018 Results Urinalysis w/Microscopic (03/03/2018 11:08 AM CDT)Only the most recent of2 resultswithin the time period is included. Color, UA Yellow [facility] Clarity, UA Hazy [facility] Specific [place], UA 1.012 1.001 - 1.035 [facility] pH, UA 6.0 5.0 - 8.0 [facility] Protein, UA 600 mg/dL (A) Negative [facility] Glucose, UA 100 mg/dL (A) Negative [facility] Ketones, UA Negative Negative [facility] Bilirubin, UA Negative Negative [facility] Blood, UA Moderate (A) Negative [facility] Nitrite, UA Negative Negative [facility] Leukocytes, UA Small (A) Negative [facility] Urobilinogen, UA 0.2 0.2 - 1.0 mg/dL [facility] RBC, UA 27 /HPF [facility] WBC, UA 12 /HPF [facility] Bacteria, UA Occasional [facility] Mucus Rare [facility] Squam Epithel, UA <1 /HPF [facility] Hyaline Casts, UA 2 /LPF [facility] Granular Casts, UA 5 /LPF [facility] Specimen Source Urine, Yusuf [facility] Specimen Urine Performing Organization Address [facility] Phone Number [facility] [address] [place] [address] [phone] [place] Urine culture (03/03/2018 11:08 AM CDT) Result 70-79,000 col/mL Pseudomonas [facility] aeruginosa (A) [facility] Specimen Urine Organism [...] <=2: Susceptible Performing Organization Address [facility] Phone Number [address] [address] [phone] [place] ED ECG Interpretation (03/02/2018 7:12 AM CDT) Narrative Performed At Macrina Gómez MD 03/02/20187:12 AM ECG/EKG Interpretation Date/Time: 03/01/2018 10:25 AM Performed by: MACRINA GÓMEZ. Authorized by: MACRINA GÓMEZ The ECG was interpreted by ED physician. The ECG is interpreted as sinus rhythm. Rate is normal rate. Conduction: conduction normal. ST segments abnormal. T waves abnormal. [place] is normal. Other findings: no other findings. Clinical Impression: non-specific ECG and abnormal ECG CT abdomen pelvis without contrast (03/01/2018 1:46 PM CDT) Specimen Narrative Performed At FINAL REPORT Respectance [facility] ABDOMINAL AND PELVIS CT DATED [...] Report Verified Date/Time:03/01/2018 15:15:27 Reading Location: [facility] C013Y CT Body Reading Room Procedure Note [...] 5.6 3.5 - 10.5 K/L [facility] RBC 3.10 (L) 4.63 - 6.08 M/L [facility] Hemoglobin 9.8 (L) 13.7 - 17.5 GM/DL [facility] Hematocrit 29.7 (L) 40.1 - 51.0 % [facility] MCV 95.8 (H) 79.0 - 92.2 fL [facility] MCH 31.6 25.7 - 32.2 pg [facility] MCHC 33.0 32.3 - 36.5 GM/DL [facility] RDW 14.0 11.6 - 14.4 % [facility] Platelets 171 150 - 450 K/CU MM [facility] MPV 11.1 9.4 - 12.4 fL [facility] nRBC 0 0 - 0 /100 WBC [facility] % Neutros 69 % [facility] % Lymphs 16 % [facility] % Monos 10 % [facility] % Eos 4 % [facility] % Baso 1 % [facility] # Neutros 3.88 1.78 - 5.38 K/L [facility] # Lymphs 0.88 (L) 1.32 - 3.57 K/L [facility] # Monos 0.56 0.30 - 0.82 K/L [facility] # Eos 0.25 0.04 - 0.54 K/L [facility] # Baso 0.03 0.01 - 0.08 K/L [facility] Immature Granulocytes-Relative 0 0 - 1 % [facility] Specimen Blood Performing Organization Address City/State/Zipcode Phone Number [address] [address] CENTER Lipase (03/01/2018 10:29 AM CDT) Lipase 61 8 - 78 U/L [facility] Specimen Blood Performing Organization Address City/[facility] Phone Number [address] [address] [place] Amylase (03/01/2018 10:29 AM CDT) Amylase 113 25 - 125 U/L [facility] Specimen Blood Performing Organization Address City/[facility]/Zipcode Phone Number [address] [address] [place] Hepatic function panel (03/01/2018 10:29 AM CDT) Protein, Total 6.8 6.0 - 8.3 gm/dL [facility] Albumin 3.5 3.5 - 5.0 g/dL [facility] Total Bilirubin 0.4 0.2 - 1.2 mg/dL [facility] Bilirubin, Direct 0.2 0.1 - 0.5 mg/dL [facility] Alkaline Phosphatase 78 40 - 150 U/L [facility] AST 20 5 - 34 U/L [facility] ALT 21 6 - 55 U/L [facility] Specimen Blood Performing Organization Address City/[facility] Phone Number [facility] [address] [place] [phone] [place] Basic Metabolic Panel (03/01/2018 10:29 AM CDT) Sodium 136 136 - 145 meq/L [facility] Potassium 4.0 3.5 - 5.1 meq/L [facility] Chloride 108 (H) 98 - 107 meq/L [facility] CO2 15 (L) 22 - 29 meq/L [facility] BUN 80 (H) 7 - 21 mg/dL [facility] Creatinine 4.79 (H) 0.57 - 1.25 mg/dL [facility] Glucose 84 70 - 105 mg/dL [facility] Calcium 8.9 8.4 - 10.2 mg/dL [facility] EGFR 12Comment: ESTIMATED GFR IS mL/min/1.73 sq m [facility] NOT ACCURATE CREATININE [facility] CENTER CLEARANCE IN PREDICTING GLOMERULAR FILTRATION RATE. ESTIMATED GFR IS NOT APPLICABLE FOR DIALYSIS PATIENTS. Specimen Blood Performing Organization Address City/[facility] Phone Number [facility] [address] [place] [address] [phone] [place] ECG 12 lead (03/01/2018 10:20 AM CDT) Specimen Narrative Performed At Ventricular Rate 62 BPM GE MUSE Atrial Rate 62 BPM P-R Interval 178 ms QRS Duration 96 ms Q-T Interval 452 ms QTC Calculation(Bazett) 458 ms P [place] 66 degrees R [place] -24 degrees T [place] 140 degrees Normal sinus rhythm Possible Left [...] 452 ms QTC Calculation(Bazett) 458 ms P [place] 66 degrees R [place] -24 degrees T [place] 140 degrees Normal sinus rhythm Possible Left [...] Address City/State/Zipcode Phone Number GE MUSE after 01/02/2018 Insurance Payer Benefit Plan / Group Subscriber ID Type Phone Address MEDICARE MEDICARE A B xxxxxxxxxx Medicare MEDICAID MEDICAID [facility] xxxxxxxxx Medicaid Advance Directives For more information, please contact:[address] [phone] Code Status Date Activated Date Inactivated Comments [...]
--- OUTSIDE RECORDS SUMMARY | 2019-01-03 18:50 | XMS REPORT ---
:1940 [facility] Address [address] [place] [address] Dr. Manley [address] [place] [address] Care Team Providers Name Role Phone LAZRODNEY [...] Comments CULTURE (BEAKER) (test PSEUDOMONAS 70-79,000 col/mL tqrr=2329) AERUGINOSA Pseudomonas aeruginosa Amikacin (test code=1) Susceptible [...] code=25) Resistant <0 or >4 URINALYSIS W/ [id number] 12:06:00 Test Item Value Reference Range Comments COLOR (BEAKER) (test xjja=542) Yellow CLARITY (BEAKER) (test mcyv=388) Hazy SPECIFIC GRAVITY UA (BEAKER) (test yqfa=976) 1.012 1.001-1.035 PH UA (BEAKER) (test bnga=659) 6.0 5.0-8.0 PROTEIN UA (BEAKER) (test klbc=450) 600 mg/dL Negative GLUCOSE UA (BEAKER) (test xals=290) 100 mg/dL Negative KETONES UA (BEAKER) (test mrov=274) Negative Negative BILIRUBIN UA (BEAKER) (test pgre=670) Negative Negative BLOOD UA (BEAKER) (test bwvv=363) Moderate Negative NITRITE UA (BEAKER) (test aius=887) Negative Negative LEUKOCYTE ESTERASE UA (BEAKER) (test xhia=369) Small Negative UROBILINOGEN UA (BEAKER) (test xkmx=184) 0.2 mg/dL 0.2-1.0 RBC UA (BEAKER) (test mpnl=440) 27 /HPF WBC UA (BEAKER) (test qlrj=904) 12 /HPF BACTERIA (BEAKER) (test ltuc=333) Occasional MUCUS (BEAKER) (test qrke=8076) Rare SQUAMOUS EPITHELIAL (BEAKER) (test hriz=841) < /HPF HYALINE CASTS (BEAKER) (test htyc=399) 2 /LPF GRANULAR CASTS (BEAKER) (test lyom=224) 5 /LPF SOURCE(BEAKER) (test fyzy=1170) Urine, Yusuf CT, [id number] 15:15:00Reason for exam:->ABDOMINAL PAINWhat is the patient's [...] Verified Date/ Time: 03/01/2018 15:15:27 Reading Location: [address] Body Reading Room BASIC METABOLIC [id number] 11:04:00 Test Item Value Reference Range Comments SODIUM (BEAKER) (test 136 meq/L 136-145 jwaf=236) POTASSIUM (BEAKER) (test 4.0 meq/L 3.5-5.1 akvs=310) CHLORIDE (BEAKER) (test 108 meq/L 98-107 khxp=842) CO2 (BEAKER) (test 15 meq/L 22-29 hhli=946) BLOOD UREA NITROGEN 80 mg/dL 7-21 (BEAKER) (test pmvy=404) CREATININE (BEAKER) (test 4.79 mg/dL 0.57-1.25 nlyx=815) GLUCOSE RANDOM (BEAKER) 84 mg/dL 70-105 (test axmh=763) CALCIUM (BEAKER) (test 8.9 mg/dL 8.4-10.2 mkpp=957) EGFR (BEAKER) (test 12 mL/min/1.73 sq m ESTIMATED GFR IS NOT pxuk=6131) ACCURATE CREATININE CLEARANCE IN PREDICTING GLOMERULAR FILTRATION RATE. ESTIMATED GFR IS NOT APPLICABLE FOR DIALYSIS PATIENTS. [id number] 11:02:00 Test Item Value Reference Range Comments LIPASE (BEAKER) (test uirc=818) 61 U/L 8-78 [id number] 11:02:00 Test Item Value Reference Range Comments AMYLASE (BEAKER) (test pvev=935) 113 U/L 25-125 HEPATIC FUNCTION [id number] 11:02:00 Test Item Value Reference Range Comments TOTAL PROTEIN (BEAKER) (test vuge=212) 6.8 gm/dL 6.0-8.3 ALBUMIN (BEAKER) (test jzyd=5163) 3.5 g/dL 3.5-5.0 BILIRUBIN TOTAL (BEAKER) (test dzbi=061) 0.4 mg/dL 0.2-1.2 BILIRUBIN DIRECT (BEAKER) (test pbgk=074) 0.2 mg/dL 0.1-0.5 ALKALINE PHOSPHATASE (BEAKER) (test vabu=225) 78 U/L 40-150 AST (SGOT) (BEAKER) (test roua=688) 20 U/L 5-34 ALT (SGPT) (BEAKER) (test lgie=157) 21 U/L 6-55 URINALYSIS W/ [id number] 11:01:00 Test Item Value Reference Range Comments COLOR (BEAKER) (test qqsw=397) Light Yellow CLARITY (BEAKER) (test typw=207) Clear SPECIFIC GRAVITY UA (BEAKER) (test zdny=329) 1.006 1.001-1.035 PH UA (BEAKER) (test hhru=720) 6.0 5.0-8.0 PROTEIN UA (BEAKER) (test byme=538) 300 mg/dL Negative GLUCOSE UA (BEAKER) (test xjyd=809) 30 mg/dL Negative KETONES UA (BEAKER) (test dddu=580) Negative Negative BILIRUBIN UA (BEAKER) (test hwcr=157) Negative Negative BLOOD UA (BEAKER) (test jgqg=240) Trace Negative NITRITE UA (BEAKER) (test zbyc=687) Negative Negative LEUKOCYTE ESTERASE UA (BEAKER) (test miza=567) Negative Negative UROBILINOGEN UA (BEAKER) (test oncu=478) 0.2 mg/dL 0.2-1.0 RBC UA (BEAKER) (test zmys=427) < /HPF WBC UA (BEAKER) (test jimk=348) < /HPF BACTERIA (BEAKER) (test dnoe=254) Rare MUCUS (BEAKER) (test mkvc=7621) Rare SOURCE(BEAKER) (test scox=7995) Urine, Voided CBC W/PLT COUNT & AUTO [id number] 10:49:00 Test Item Value Reference Range Comments WHITE BLOOD CELL COUNT (BEAKER) (test ayeo=921) 5.6 K/ L 3.5-10.5 RED BLOOD CELL COUNT (BEAKER) (test skjb=871) 3.10 M/ L 4.63-6.08 HEMOGLOBIN (BEAKER) (test eife=255) 9.8 GM/DL 13.7-17.5 HEMATOCRIT (BEAKER) (test tibb=504) 29.7 % 40.1-51.0 MEAN CORPUSCULAR VOLUME (BEAKER) (test pfpt=367) 95.8 fL 79.0-92.2 MEAN CORPUSCULAR HEMOGLOBIN (BEAKER) (test 31.6 pg 25.7-32.2 aouj=028) MEAN CORPUSCULAR HEMOGLOBIN CONC (BEAKER) (test 33.0 GM/DL 32.3-36.5 ynkc=489) RED CELL DISTRIBUTION WIDTH (BEAKER) (test 14.0 % 11.6-14.4 xvnl=742) PLATELET COUNT (BEAKER) (test brbh=257) 171 K/CU MM 150-450 MEAN PLATELET VOLUME (BEAKER) (test cyra=725) 11.1 fL 9.4-12.4 NUCLEATED RED BLOOD CELLS (BEAKER) (test 0 /100 WBC 0-0 snhz=999) NEUTROPHILS RELATIVE PERCENT (BEAKER) (test 69 % rkza=259) LYMPHOCYTES RELATIVE PERCENT (BEAKER) (test 16 % mdll=997) MONOCYTES RELATIVE PERCENT (BEAKER) (test 10 % wnkt=823) EOSINOPHILS RELATIVE PERCENT (BEAKER) (test 4 % nhph=787) BASOPHILS RELATIVE PERCENT (BEAKER) (test 1 % fczn=837) NEUTROPHILS ABSOLUTE COUNT (BEAKER) (test 3.88 K/ L 1.78-5.38 ffjn=439) LYMPHOCYTES ABSOLUTE COUNT (BEAKER) (test 0.88 K/ L 1.32-3.57 kmpq=762) MONOCYTES ABSOLUTE COUNT (BEAKER) (test 0.56 K/ L 0.30-0.82 stja=342) EOSINOPHILS ABSOLUTE COUNT (BEAKER) (test 0.25 K/ L 0.04-0.54 kjeh=824) BASOPHILS ABSOLUTE COUNT (BEAKER) (test 0.03 K/ L 0.01-0.08 miha=662) IMMATURE GRANULOCYTES-RELATIVE PERCENT (BEAKER) 0 % 0-1 (test bbdi=1326)
[2019-01-03] MEDS ORDERED: ONDANSETRON 4 MG/2 ML VIAL ONE (20:13)
[2019-01-03] MEDS ORDERED: NA CHLORIDE 0.9% 500 ML ONE (20:13)
[2019-01-03] MEDS ORDERED: MORPHINE 4 MG/ML SYR ONE ×2 (20:13→21:43)
[2019-01-03] MEDS ORDERED: FAMOTIDINE 20 MG/2 ML VIAL IV ONE (20:13)
[2019-01-03 20:43] LABS: Protime INR 1.13
[2019-01-03 20:44] LABS: Absolute Lymphocytes (CBC) 0.3 K/uL (0.7-4.9); Basophils % 0.4 % (0-1.3); Eosinophils % 1.2 % (0-4.4); Hematocrit 34.3 % (39.6-49.0); Lymphocytes % 3.5 % (15.3-44.8); MPV 8.2 fL (7.6-11.3); Monocytes % 5.7 % (3.3-12.3)
[2019-01-03 21:12] LABS: Albumin 3.6 g/dL (3.4-5.0); Bilirubin Direct 0.3 mg/dL (0-0.2); Bilirubin Total 0.6 mg/dL (0.2-1.0); Magnesium 2.2 mg/dL (1.8-2.4); Protein, Total 7.5 g/dL (6.4-8.2); Troponin (Emerg Dept Use Only) 0.02 ng/mL (0.0-0.045)
[2019-01-03 21:15] LABS: Potassium 5.8 mmol/L (3.5-5.1)
[2019-01-03 21:25] LABS: Blood Morphology Comment NOT SEEN (NOT SEEN); Platelet Estimate ADEQ
[2019-01-03] MEDS ORDERED: SOD POLYSTYREN SUL 15 GM/60 ML UCUP ONE (23:31)
--- NOTE | 2019-01-04 00:16 | ER ---
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 Transition of care: patient was not received from another setting of care. Onset of symptoms was January 03, 2019. Risk Assessment: Do you want to hurt yourself or someone else? Patient reports no desire to harm self or others. Initial Sepsis Screen: Does the patient meet any 2 criteria? No. Patient's initial sepsis screen is negative. Does the patient have a suspected source of infection? No. Patient's initial sepsis screen is negative. Care prior to arrival: None. 18:50 Method Of Arrival: Ambulatory 18:50 Acuity: SARATH 3 hj Historical: - Allergies: 18:52 Aspirin; - Home Meds: 19:51 amlodipine 10 mg tab 1 tab once daily [Active]; clonazepam 1 mg Oral tab 1 tab 2 times mg2 per day [Active]; nitroglycerin 0.4 mg SL subl 1 tab [Active]; Risperdal 0.5 mg Oral tab 1 tabs 2 times per day [Active]; trazodone 100 mg Oral tab 1 tab nightly [Active]; - PMHx: 18:52 Anemia; CAD; cardiomegaly; CHF; chronic renal disease; Cirrhosis; Diabetes - IDDM; Dialysis; High Cholesterol; Hypertension; Myocardial infarction; pleural effusion; Visually impared; pulmonary nodule; - PSHx: 18:52 Unable to obtain; hj - Immunization history:: Flu vaccine status is unknown. - Social history:: Smoking status: unknown. - Ebola Screening: : No symptoms or risks identified at this time. - Family history:: not pertinent. Screenin:48 Abuse screen: Denies threats or abuse. Denies injuries from another. Nutritional mg2 screening: No deficits noted. Tuberculosis screening: No symptoms or risk factors identified. Fall Risk IV access (20 points). Assessment: 19:43 General: Appears in no apparent distress. comfortable, Behavior is calm, cooperative. mg2 Pain: Complains of pain in abdomen Pain does not radiate. Pain currently is 5 out of 10 on a pain scale. Quality of pain is described as aching, Pain began gradually, 1 week ago. Neuro: Level of Consciousness is awake, alert, obeys commands, Oriented to person, place, time, situation. Cardiovascular: Capillary refill < 3 seconds Patient's skin is warm and dry. Respiratory: Airway is patent Respiratory effort is even, unlabored, Respiratory pattern is regular, symmetrical. GI: Bowel sounds present X 4 quads. Abd is soft and non tender. : No signs and/or symptoms were reported regarding the genitourinary system. EENT: No signs and/or symptoms were reported regarding the EENT system. Derm: Skin is intact, is healthy with good turgor, Skin is pink, warm \T\ dry. normal. Musculoskeletal: Circulation, motion, and sensation intact. Capillary refill < 3 seconds. 22:50 Reassessment: patient sent to ct scan via stretcher. mg2 23:20 Reassessment: patient is back from ct scan. mg2 01/04 01:16 Reassessment: patient is supposed to be for transfer to [facility]. patient refused mg2 for the transfer and iv antibiotic. provider informed. patient signed the AMA form. discharged in good condition, not in distress, . Vital Signs: 01/03 18:52 BP 140 / 59; Pulse 67; Resp 18; Temp 97.9(O); Pulse Ox 95% on R/A; Weight 58.06 kg; Height 5 ft. 5 in. (165.10 cm); Pain 10/10; 20:10 BP 149 / 60; mg2 21:59 BP 136 / 77; Pulse 62; Resp 18; Pulse Ox 96% on 2 lpm NC; mg2 23:20 BP 163 / 60; Pulse 57; Resp 18; Temp 98; Pulse Ox 98% on 2 lpm NC; mg2 01/04 00:30 BP 145 / 78; Pulse 60; Resp 18; Temp 98; Pulse Ox 98% on 2 lpm NC; mg2 01/03 18:52 Body Mass Index 21.30 (58.06 kg, 165.10 cm) ED Course: 01/03 18:48 Patient arrived in ED. mr 18:51 Triage completed. hj 18:52 Arm band placed on right wrist. hj 19:21 Ron Viveros MD is Attending Physician. [facility] 19:26 Cameron Iniguez, HUONG is Primary Nurse. mg2 19:48 No provider procedures requiring assistance completed. Inserted saline lock: 20 gauge mg2 in left forearm, using aseptic technique. Blood collected. 19:50 Patient has correct armband on for positive identification. mg2 20:48 Ultrasound completed. hr 20:49 US Abdomen Limited In Process Unspecified. EDMS 20:54 XRAY Chest (1 view) In Process Unspecified. EDMS 23:32 Abdomen In Process Unspecified. EDMS 01/04 01:17 IV discontinued, intact, bleeding controlled, No redness/swelling at site. Pressure mg2 dressing applied. Administered Medications: 01/03 20:09 Drug: morphine 2 mg Route: IVP; Site: left forearm; mg2 22:00 Follow up: Response: No adverse reaction; Marked relief of symptoms mg2 20:09 Drug: Zofran 4 mg Route: IVP; Site: left forearm; mg2 22:00 Follow up: Response: No adverse reaction; Marked relief of symptoms mg2 20:09 Drug: Pepcid 20 mg Route: IVP; Site: left forearm; mg2 22:00 Follow up: Response: No adverse reaction; Marked relief of symptoms mg2 20:09 Drug: NS 0.9% 1000 ml Route: IV; Rate: 75 ml/hr; Site: left forearm; mg2 01/04 01:15 Follow up: Response: No adverse reaction; IV Status: Order to discontinue infusion; IV mg2 Intake: 200ml 01/03 20:47 Drug: morphine 2 mg Route: IVP; Site: left forearm; mg2 22:00 Follow up: Response: No adverse reaction; Marked relief of symptoms mg2 21:35 Drug: morphine 2 mg Route: IVP; Site: left forearm; mg2 22:49 Follow up: Response: No adverse reaction; Marked relief of symptoms mg2 23:20 Drug: Kayexalate 30 grams Route: PO; mg2 01/04 01:15 Follow up: Response: No adverse reaction mg2 01:15 Not Given (Patient Refused): Zosyn 2.25 grams IVPB once over 60 mins; (mix in NS 100 mL)mg2 Intake: 01:15 IV: 200ml; Total: 200ml. mg2 Outcome: 00:13 ER care complete, transfer ordered by MD. vallejo 01:17 AMA AMA form signed mg2 01:17 Condition: stable 01:17 Discharge instructions given to patient, family, Instructed on discharge instructions, Demonstrated understanding of instructions. 01:18 Patient left the ED. mg2 Signatures: Dispatcher [employer] EDMS Ron Viveros MD MD cha Rivera, Mary mr Anderson, Jesse Wick, RN RN Cameron Iniguez RN RN mg2
--- NOTE | 2019-01-04 00:17 | EDPHYS ---
Physician Documentation [facility] Name: Blaise Quarles Age: 78 yrs Sex: Male : 1940 Arrival Date: 01/03/2019 Time: 18:48 Bed 30 Private MD: ED Physician Ron Viveros HPI: 01/03 19:50 This 78 yrs old Male presents to ER via Ambulatory with complaints of yoni Abdominal Pain. 19:50 The patient presents with abdominal pain in the upper abdomen, in the lower abdomen, yoni abdominal distention in the upper abdomen, in the lower abdomen. Onset: The symptoms/episode began/occurred just prior to arrival. The symptoms do not radiate. Associated signs and symptoms: none. The symptoms are described as constant, crampy. Modifying factors: The symptoms are alleviated by. The patient has not experienced similar symptoms in the past. Historical: - Allergies: 18:52 Aspirin; hj - Home Meds: 19:51 amlodipine 10 mg tab 1 tab once daily [Active]; clonazepam 1 mg Oral tab 1 tab 2 times mg2 per day [Active]; nitroglycerin 0.4 mg SL subl 1 tab [Active]; Risperdal 0.5 mg Oral tab 1 tabs 2 times per day [Active]; trazodone 100 mg Oral tab 1 tab nightly [Active]; - PMHx: 18:52 Anemia; CAD; cardiomegaly; CHF; chronic renal disease; Cirrhosis; Diabetes - IDDM; hj Dialysis; High Cholesterol; Hypertension; Myocardial infarction; pleural effusion; Visually impared; pulmonary nodule; - PSHx: 18:52 Unable to obtain; hj - Immunization history:: Flu vaccine status is unknown. - Social history:: Smoking status: unknown. - Ebola Screening: : No symptoms or risks identified at this time. - Family history:: not pertinent. ROS: 19:50 Constitutional: Negative for fever, chills, and weight loss, Eyes: Negative for injury, yoni pain, redness, and discharge, ENT: Negative for injury, pain, and discharge, Neck: Negative for injury, pain, and swelling, Cardiovascular: Negative for chest pain, palpitations, and edema, Respiratory: Negative for shortness of breath, cough, wheezing, and pleuritic chest pain, Back: Negative for injury and pain, : Negative for injury, bleeding, discharge, and swelling, MS/Extremity: Negative for injury and deformity, Skin: Negative for injury, rash, and discoloration, Neuro: Negative for headache, weakness, numbness, tingling, and seizure, Psych: Negative for depression, anxiety, suicide ideation, homicidal ideation, and hallucinations, Allergy/Immunology: Negative for hives, rash, and allergies, Endocrine: Negative for neck swelling, polydipsia, polyuria, polyphagia, and marked weight changes, Hematologic/Lymphatic: Negative for swollen nodes, abnormal bleeding, and unusual bruising. 19:50 Abdomen/GI: Positive for abdominal pain, of the right upper quadrant, left upper quadrant, right lower quadrant and left lower quadrant. Exam: 19:50 Constitutional: This is a well developed, well nourished patient who is awake, alert, yoni and in no acute distress. Head/Face: Normocephalic, atraumatic. Eyes: Pupils equal round and reactive to light, extra-ocular motions intact. Lids and lashes normal. Conjunctiva and sclera are non-icteric and not injected. Cornea within normal limits. Periorbital areas with no swelling, redness, or edema. ENT: Nares patent. No nasal discharge, no septal abnormalities noted. Tympanic membranes are normal and external auditory canals are clear. Oropharynx with no redness, swelling, or masses, exudates, or evidence of obstruction, uvula midline. Mucous membranes moist. Neck: Trachea midline, no thyromegaly or masses palpated, and no cervical lymphadenopathy. Supple, full range of motion without nuchal rigidity, or vertebral point tenderness. No Meningismus. Chest/axilla: Normal chest wall appearance and motion. Nontender with no deformity. No lesions are appreciated. Cardiovascular: Regular rate and rhythm with a normal S1 and S2. No gallops, murmurs, or rubs. Normal PMI, no JVD. No pulse deficits. Respiratory: Lungs have equal breath sounds bilaterally, clear to auscultation and percussion. No rales, rhonchi or wheezes noted. No increased work of breathing, no retractions or nasal flaring. Back: No spinal tenderness. No costovertebral tenderness. Full range of motion. Male : Normal genitalia with no discharge or lesions. Skin: Warm, dry with normal turgor. Normal color with no rashes, no lesions, and no evidence of cellulitis. MS/ Extremity: Pulses equal, no cyanosis. Neurovascular intact. Full, normal range of motion. Neuro: Awake and alert, GCS 15, oriented to person, place, time, and situation. Cranial nerves II-XII grossly intact. Motor strength 5/5 in all extremities. Sensory grossly intact. Cerebellar exam normal. Normal gait. Psych: Awake, alert, with orientation to person, place and time. Behavior, mood, and affect are within normal limits. 19:50 Abdomen/GI: Inspection: abdomen appears normal, Bowel sounds: normal, Palpation: moderate abdominal tenderness, in all quadrants, Liver: no appreciated palpable abnormalities, Hernia: noted in the epigastric area and paraumbilical area, incarceration, is not appreciated, tenderness, is not appreciated, bowel sounds are appreciated on auscultation. Vital Signs: 18:52 BP 140 / 59; Pulse 67; Resp 18; Temp 97.9(O); Pulse Ox 95% on R/A; Weight 58.06 kg; Height 5 ft. 5 in. (165.10 cm); Pain 10/10; 20:10 BP 149 / 60; mg2 21:59 BP 136 / 77; Pulse 62; Resp 18; Pulse Ox 96% on 2 lpm NC; mg2 23:20 BP 163 / 60; Pulse 57; Resp 18; Temp 98; Pulse Ox 98% on 2 lpm NC; mg2 01/04 00:30 BP 145 / 78; Pulse 60; Resp 18; Temp 98; Pulse Ox 98% on 2 lpm NC; mg2 01/03 18:52 Body Mass Index 21.30 (58.06 kg, 165.10 cm) MDM: 01/03 19:21 Patient medically screened. [facility] 01/04 00:13 Data reviewed: vital signs, nurses notes, lab test result(s), EKG, radiologic studies, [facility] CT scan, plain films, ultrasound. 01/03 19:43 Order name: Basic Metabolic Panel; Complete Time: 21:36 mg2 01/03 19:43 Order name: CBC with Diff; Complete Time: 21:36 mg2 01/03 19:43 Order name: Creatinine for Radiology; Complete Time: 21:15 mg2 01/03 19:43 Order name: Hepatic Function; Complete Time: 21:36 mg2 01/03 19:43 Order name: Lipase; Complete Time: 21:36 [facility] 01/03 19:50 Order name: Magnesium; Complete Time: 21:36 [facility] 01/03 19:50 Order name: NT PRO-BNP; Complete Time: 21:36 [facility] 01/03 19:50 Order name: PT-INR; Complete Time: 21:15 [facility] 01/03 19:50 Order name: Troponin (emerg Dept Use Only); Complete Time: 21:36 [facility] 01/03 19:50 Order name: XRAY Chest (1 view) [facility] 01/03 19:50 Order name: US Abdomen Limited yoni 01/03 19:52 Order name: AMMONIA; Complete Time: 21:15 [facility] 01/03 20:49 Order name: Manual Differential; Complete Time: 21:36 EDMS 01/03 19:43 Order name: IV Saline Lock; Complete Time: 19:43 [facility] 01/03 19:43 Order name: Labs collected and sent; Complete Time: 19:43 [facility] 01/03 19:50 Order name: EKG; Complete Time: 20:29 [facility] 01/03 19:50 Order name: Cardiac monitoring; Complete Time: 20:09 [facility] 01/03 19:50 Order name: EKG - Nurse/Tech; Complete Time: 20:44 [facility] 01/03 19:50 Order name: O2 Per Protocol; Complete Time: 19:53 [facility] 01/03 19:50 Order name: O2 Sat Monitoring; Complete Time: 19:53 [facility] 01/03 21:41 Order name: Abdomen EDMS Administered Medications: 01/03 20:09 Drug: morphine 2 mg Route: IVP; Site: left forearm; mg2 22:00 Follow up: Response: No adverse reaction; Marked relief of symptoms mg2 20:09 Drug: Zofran 4 mg Route: IVP; Site: left forearm; mg2 22:00 Follow up: Response: No adverse reaction; Marked relief of symptoms mg2 20:09 Drug: Pepcid 20 mg Route: IVP; Site: left forearm; mg2 22:00 Follow up: Response: No adverse reaction; Marked relief of symptoms mg2 20:09 Drug: NS 0.9% 1000 ml Route: IV; Rate: 75 ml/hr; Site: left forearm; mg2 01/04 01:15 Follow up: Response: No adverse reaction; IV Status: Order to discontinue infusion; IV mg2 Intake: 200ml 01/03 20:47 Drug: morphine 2 mg Route: IVP; Site: left forearm; mg2 22:00 Follow up: Response: No adverse reaction; Marked relief of symptoms mg2 21:35 Drug: morphine 2 mg Route: IVP; Site: left forearm; mg2 22:49 Follow up: Response: No adverse reaction; Marked relief of symptoms mg2 23:20 Drug: Kayexalate 30 grams Route: PO; mg2 01/04 01:15 Follow up: Response: No adverse reaction mg2 01:15 Not Given (Patient Refused): Zosyn 2.25 grams IVPB once over 60 mins; (mix in NS 100 mL)mg2 Disposition: 01/04/19 01:05 Patient has left against medical advice. Impression: Abdominal tenderness, Cholecystitis, Cholelithiasis, Pleural effusion in conditions classified elsewhere, Unspecified cirrhosis of liver, Hyperkalemia, End stage renal disease. - Patients states they are going to Home. - Condition is Serious. Follow up: Private Physician; When: Upon discharge from the Emergency Department; Reason: Recheck today's complaints, Continuance of care, Re-evaluation by your physician. - Problem is new. - Symptoms are unchanged. Signatures: Dispatcher [employer] [facility] Ron Viveros MD MD cha Joaquin, Henry, RN RN Cameron Iniguez RN RN mg2 Corrections: (The following items were deleted from the chart) 01/03 21:41 20:30 Abdomen Pelvis W Con+CT.RAD.BRZ ordered. [facility] 01/04 00:15 00:13 01/04/2019 00:13 Transfer ordered to [facility]. Diagnosis is Abdominal yoni tenderness; Cholecystitis; Cholelithiasis; End stage renal disease; Bandemia; Unspecified cirrhosis of liver; Hyperkalemia. Reason for transfer: Higher level of care. Accepting physician is to [facility]. Condition is Fair. Problem is new. Symptoms have improved. [facility] 01:02 00:15 01/04/2019 00:13 Transfer ordered to [facility]. Diagnosis is Abdominal yoni tenderness; Cholecystitis; Cholelithiasis; End stage renal disease; Bandemia; Unspecified cirrhosis of liver; Hyperkalemia; Pleural effusion in conditions classified elsewhere. Reason for transfer: Higher level of care. Accepting physician is to [facility]. Condition is Fair. Problem is new. Symptoms have improved. yoni 01:18 01:05 01/04/2019 01:05 Patients has left against medical advice. Impression: Abdominal mg2 tenderness; Cholecystitis; Cholelithiasis; Pleural effusion in conditions classified elsewhere; Unspecified cirrhosis of liver; Hyperkalemia; End stage renal disease. Patient states they are going to Home. Condition is Serious. Follow up: Private Physician; When: Upon discharge from the Emergency Department; Reason: Recheck today's complaints, Continuance of care, Re-evaluation by your physician. Problem is new. Symptoms are unchanged. yoni
[2019-01-04] MEDS ORDERED: PIPER/TAZO/NS 2.25gm 2.25 GM/50 ML BAG ONE (00:53)
[2019-01-04 02:11] VITALS: TEMP 98; O2SAT 98
[2019-01-04 02:12] VITALS: BP 145/78
--- NOTE | 2019-01-04 08:52 | RAD REPORT ---
EXAM DESCRIPTION: US - Abdomen Exam Limited - 01/03/2019 8:49 pm CLINICAL HISTORY: Abdominal pain COMPARISON: CT study December 13, 2018, February 02, 2018 FINDINGS: Gallbladder size is normal. Small gallstones are identified. Minimal amount of sludge is p resent. Gallbladder wall is slightly thickened. Common bile duct is normal with no common duct stone identified. Partially imaged liver is grossly normal. Small amount of ascites is present. Abdomen was not fully assessed. Right pleural effusion is present. IMPRESSION: Several small gallstones are present with a minimal amount of sludge. Gallbladder wall thickening is present. There is pericholecystic fluid present as part of incompletel y evaluated ascites. Right pleural effusion.
--- NOTE | 2019-01-04 08:56 | RAD REPORT ---
EXAM DESCRIPTION: RAD - Chest Single View - 01/03/2019 8:53 pm CLINICAL HISTORY: Cough, abdominal pain, abdominal distention COMPARISON: December 27 TECHNIQUE: AP portable chest image was obtained 9 hours . FINDINGS: Bilateral pleural effusions are present right greater than left. This is not substantially different from the comparison. Interstitial markings are prominent. No focal consolidation in the mi d or upper lung miner. Pleural effusions result in lung base atelectasis potentially masking a lung base infiltrate. Heart size is normal range. Vasculature is prominent. Dialysis catheter is in place. No pneumothorax. No acute bony abnormality seen. No acute aortic findings suspected. IMPRESSION: Bilateral pleural effusions and lung base atelectasis similar to December 27 imaging. Vasculature and lung markings indicate a mild failure or volume overload process. This pattern is not substantially different.
--- NOTE | 2019-01-04 11:04 | RAD REPORT ---
EXAM DESCRIPTION: CT - Abdomen Pelvis Wo Contrast - 01/04/2019 1:15 am CLINICAL HISTORY: 78 years Male ABD PAIN COMPARISON: 12/13/2018 TECHNIQUE: Contiguous axial images obtained through the abdomen and pelvis without IV contrast. The images were obtained after oral contrast. Reformatted images obtained. This exam was performed according to our department optimization program which includes automated exp osure control, adjustment of the mA and/or kv according to patient size and/or use of iterative recon struction technique. FINDINGS: There is a moderate right pleural effusion and a small left pleural effusion. There is ate lectasis or infiltrate greater on the left. Changes from pneumonia are not excluded. The appearance w as similar on the previous study. There is stable cardiomegaly. There are marked coronary artery calcifications with changes from previ ous sternotomy. There is a central venous catheter with its tip in the region of the atrial caval rhea ction. The liver appears unremarkable. The spleen and pancreas appear unremarkable. No adrenal masses. The kidneys appear mildly atrophic. No hydronephrosis. The gallbladder is slightly distended which was similar on the previous study. Atherosclerotic calcifications. No aneurysmal dilatation of the aorta. No bowel obstruction. The appendix is not definitely visualized. Scattered colonic diverticula. There is a small amount of free fluid in the abdomen and pelvis. There is increased density in the subcutaneous fatty tissues likely from edema/anasarca. Degenerative changes in the spine. Mild curvature in the lumbar spine convex right. IMPRESSION: Moderate right pleural effusion and small left pleural effusion. There is atelectasis or infiltrate greater on the left and changes from pneumonia are not excluded. The appearance was simil ar on the previous study. The gallbladder is slightly distended which was similar on the previous study. If there is clinica l concern for the possibility of cholecystitis, sonography or nuclear medicine imaging could be obtai tanisha to better evaluate. Small amount of free fluid in the abdomen and pelvis which was similar on the previous study. Electronically signed by: Fabian Cordova MD 01/03/2019 11:46 PM CDT Due to temporary technical issues with the PACS/Fluency reporting system, reports are being signed by the in house radiologist as a courtesy to ensure prompt reporting. The interpreting radiologist is f ully responsible for the content of the report.
--- NOTE | 2019-01-04 14:50 | EKG ---
Test Date: 2019-01-03 Test Time: 20:38:26 [employer] Instructor: RACHELT MEASUREMENT RESULTS: Intervals: Rate: 53 RI: 204 QRSD: 92 QT: 452 QTc: 424 [place]: P: 80 RI: 204 QRS: -43 T: 120 INTERPRETIVE STATEMENTS: Sinus bradycardia Possible Left atrial enlargement Left axis deviation Pulmonary disease pattern Septal infarct, age undetermined T wave abnormality, consider lateral ischemia Abnormal ECG Compared to ECG 12/27/2018 17:48:57 T-wave abnormality now present Possible ischemia now present Sinus rhythm no longer present Myocardial infarct finding still present Electronically Signed On 01-04-19 14:47:23 CDT by Brandon Pérez
== END 2019-01-04 01:18 | disposition left against medical advice (07) ==
LOC: ER 18:46
DX: R10.10 Upper abdominal pain, unspecified (principal); Z88.6 Allergy status to analgesic agent; D64.9 Anemia, unspecified; E11.22 Type 2 diabetes mellitus with diabetic chronic kidney disease; I13.2 Hypertensive heart and chronic kidney disease with heart failure and with stage 5 chronic kidney disease, or end stage renal disease; N18.6 End stage renal disease; I50.9 Heart failure, unspecified; Z99.2 Dependence on renal dialysis; Z79.4 Long term (current) use of insulin; I25.2 Old myocardial infarction; Z53.29 Procedure and treatment not carried out because of patient's decision for other reasons
CPT/HCPCS: 93005; 85025; 80048; 36415; 82140; 83735; 85610; 80076; 84484; 83690; 83880; 74176; 71045; 76705; J2405; 96361; 96374; 96375; 99284

== ENCOUNTER 2019-01-08 18:47 | Emergency (ER) | payer OTHER ==
--- OUTSIDE RECORDS SUMMARY | 2019-01-08 18:50 | XMS REPORT | Clinical Summary ---
:1940 Author Organization [facility] Address [address] [place] [address] Care Team Providers Name Role Phone Moo [...] 03/01/2018 Orders Only General Internal Medicine after 01/07/2018 Family History Medical History Relation Name Comments [...] 452 ms QTC Calculation(Bazett) 458 ms P [place] 66 degrees R [place] -24 degrees T [place] 140 degrees Normal sinus rhythm Possible Left [...] MICROSCOPIC STAT 03/01/2018 10:19 AM CDT after 01/07/2018 Results Urinalysis w/Microscopic (03/03/2018 11:08 AM CDT)Only the most recent of2 resultswithin the time period is included. Color, UA Yellow [facility] Clarity, UA Hazy [facility] Specific [place], UA 1.012 1.001 - 1.035 [facility] pH, UA 6.0 5.0 - 8.0 [facility] Protein, UA 600 mg/dL (A) Negative [facility] Glucose, UA 100 mg/dL (A) Negative [facility] Ketones, UA Negative Negative [facility] Bilirubin, UA Negative Negative [facility] Blood, UA Moderate (A) Negative [facility] Nitrite, UA Negative Negative [facility] Leukocytes, UA Small (A) Negative [facility] Urobilinogen, UA 0.2 0.2 - 1.0 mg/dL [facility] RBC, UA 27 /HPF [facility] WBC, UA 12 /HPF [facility] Bacteria, UA Occasional [facility] Mucus Rare [facility] Squam Epithel, UA <1 /HPF [facility] Hyaline Casts, UA 2 /LPF [facility] Granular Casts, UA 5 /LPF [facility] Specimen Source Urine, Yusuf [facility] Specimen Urine Performing Organization Address [facility] Phone Number [facility] [address] [place] [address] [place] Urine culture (03/03/2018 11:08 AM CDT) Result 70-79,000 col/mL Pseudomonas [facility] aeruginosa (A) [facility] Specimen Urine Organism [...] aeruginosa Tobramycin <=2: Susceptible Performing Organization Address [facility] Phone Number [address] [address] [place] ED ECG Interpretation (03/02/2018 7:12 AM CDT) Narrative Performed At Macrina Gómez MD 03/02/20187:12 AM ECG/EKG Interpretation Date/Time: 03/01/2018 10:25 AM Performed by: MACRINA GÓMEZ. Authorized by: MACRINA GÓMEZ The ECG was interpreted by ED physician. The ECG is interpreted as sinus rhythm. Rate is normal rate. Conduction: conduction normal. ST segments abnormal. T waves abnormal. [place] is normal. Other findings: no other findings. Clinical Impression: non-specific ECG and abnormal ECG CT abdomen pelvis without contrast (03/01/2018 1:46 PM CDT) Specimen Narrative Performed At FINAL REPORT Stage I Diagnostics [facility] [place] ABDOMINAL AND PELVIS CT DATED 03/01/2018 CLINICAL [...] MD Report Verified Date/Time:03/01/2018 15:15:27 Reading Location: [facility] C013Y CT Body Reading Room Procedure Note [...] Report Verified Date/Time: 03/01/2018 15:15:27 Reading Location: [facility] C013Y CT Body Reading Room Performing Organization Address City/State/Zipcode Phone Number GE RIS CBC with platelet count + automated diff (03/01/2018 10:29 AM CDT) WBC 5.6 3.5 - 10.5 K/L [facility] RBC 3.10 (L) 4.63 - 6.08 M/L [facility] Hemoglobin 9.8 (L) 13.7 - 17.5 GM/DL [facility] Hematocrit 29.7 (L) 40.1 - 51.0 % [facility] MCV 95.8 (H) 79.0 - 92.2 fL [facility] MCH 31.6 25.7 - 32.2 pg [facility] MCHC 33.0 32.3 - 36.5 GM/DL [facility] RDW 14.0 11.6 - 14.4 % [facility] Platelets 171 150 - 450 K/CU MM [facility] MPV 11.1 9.4 - 12.4 fL [facility] nRBC 0 0 - 0 /100 WBC [facility] % Neutros 69 % [facility] % Lymphs 16 % [facility] % Monos 10 % [facility] % Eos 4 % [facility] % Baso 1 % [facility] # Neutros 3.88 1.78 - 5.38 K/L [facility] # Lymphs 0.88 (L) 1.32 - 3.57 K/L [facility] # Monos 0.56 0.30 - 0.82 K/L [facility] # Eos 0.25 0.04 - 0.54 K/L [facility] # Baso 0.03 0.01 - 0.08 K/L [facility] Immature Granulocytes-Relative 0 0 - 1 % [facility] Specimen Blood Performing Organization Address City/State/Zipcode Phone Number [address] [address] CENTER Lipase (03/01/2018 10:29 AM CDT) Lipase 61 8 - 78 U/L [facility] Specimen Blood Performing Organization Address City/[facility] Phone Number [address] [address] [place] Amylase (03/01/2018 10:29 AM CDT) Amylase 113 25 - 125 U/L [facility] Specimen Blood Performing Organization Address City/[facility]/Zipcode Phone Number [address] [address] [phone] [place] Hepatic function panel (03/01/2018 10:29 AM CDT) Protein, Total 6.8 6.0 - 8.3 gm/dL [facility] Albumin 3.5 3.5 - 5.0 g/dL [facility] Total Bilirubin 0.4 0.2 - 1.2 mg/dL [facility] Bilirubin, Direct 0.2 0.1 - 0.5 mg/dL [facility] Alkaline Phosphatase 78 40 - 150 U/L [facility] AST 20 5 - 34 U/L [facility] ALT 21 6 - 55 U/L [facility] Specimen Blood Performing Organization Address City/[facility] Phone Number [facility] [address] [place] [address] [phone] [place] Basic Metabolic Panel (03/01/2018 10:29 AM CDT) Sodium 136 136 - 145 meq/L [facility] Potassium 4.0 3.5 - 5.1 meq/L [facility] Chloride 108 (H) 98 - 107 meq/L [facility] CO2 15 (L) 22 - 29 meq/L [facility] BUN 80 (H) 7 - 21 mg/dL [facility] Creatinine 4.79 (H) 0.57 - 1.25 mg/dL [facility] Glucose 84 70 - 105 mg/dL [facility] Calcium 8.9 8.4 - 10.2 mg/dL [facility] EGFR 12Comment: ESTIMATED GFR IS mL/min/1.[address] [facility] NOT ACCURATE CREATININE [facility] CENTER CLEARANCE IN PREDICTING GLOMERULAR FILTRATION RATE. ESTIMATED GFR IS NOT APPLICABLE FOR DIALYSIS PATIENTS. Specimen Blood Performing Organization Address City/[facility] Phone Number [facility] [address] [place] [phone] [place] ECG 12 lead (03/01/2018 10:20 AM CDT) Specimen Narrative Performed At Ventricular Rate 62 BPM [facility] Atrial Rate 62 BPM P-R Interval 178 ms QRS Duration 96 ms Q-T Interval 452 ms QTC Calculation(Bazett) 458 ms P [place] 66 degrees R [place] -24 degrees T [place] 140 degrees Normal sinus rhythm Possible Left [...] 452 ms QTC Calculation(Bazett) 458 ms P [place] 66 degrees R [place] -24 degrees T [place] 140 degrees Normal sinus rhythm Possible Left [...] Address City/State/Zipcode Phone Number GE MUSE after 01/07/2018 Insurance Payer Benefit Plan / Group Subscriber ID Type Phone Address MEDICARE MEDICARE A B xxxxxxxxxx Medicare MEDICAID MEDICAID [facility] xxxxxxxxx Medicaid Advance Directives For more information, please contact:[address] [phone] Code Status Date Activated Date Inactivated Comments [...]
--- OUTSIDE RECORDS SUMMARY | 2019-01-08 18:50 | XMS REPORT ---
:1940 Author Organization [facility] Address [address] [place] [address] Dr. Manley [address] [place] [address] Care Team Providers Name Role Phone LAZRODNEY [...] Comments CULTURE (BEAKER) (test PSEUDOMONAS 70-79,000 col/mL vpiv=2959) AERUGINOSA Pseudomonas aeruginosa Amikacin (test code=1) Susceptible [...] code=25) Resistant <0 or >4 URINALYSIS W/ [id number] 12:06:00 Test Item Value Reference Range Comments COLOR (BEAKER) (test zoma=377) Yellow CLARITY (BEAKER) (test vgdc=711) Hazy SPECIFIC GRAVITY UA (BEAKER) (test xeur=625) 1.012 1.001-1.035 PH UA (BEAKER) (test tfmq=409) 6.0 5.0-8.0 PROTEIN UA (BEAKER) (test gdzl=795) 600 mg/dL Negative GLUCOSE UA (BEAKER) (test jcsj=919) 100 mg/dL Negative KETONES UA (BEAKER) (test nqas=167) Negative Negative BILIRUBIN UA (BEAKER) (test wapw=422) Negative Negative BLOOD UA (BEAKER) (test ymcx=879) Moderate Negative NITRITE UA (BEAKER) (test xchl=587) Negative Negative LEUKOCYTE ESTERASE UA (BEAKER) (test dkzn=111) Small Negative UROBILINOGEN UA (BEAKER) (test zpsz=534) 0.2 mg/dL 0.2-1.0 RBC UA (BEAKER) (test oman=633) 27 /HPF WBC UA (BEAKER) (test ozmc=065) 12 /HPF BACTERIA (BEAKER) (test efjw=337) Occasional MUCUS (BEAKER) (test uxyz=3514) Rare SQUAMOUS EPITHELIAL (BEAKER) (test zpgr=557) < /HPF HYALINE CASTS (BEAKER) (test bsrj=930) 2 /LPF GRANULAR CASTS (BEAKER) (test jfvt=800) 5 /LPF SOURCE(BEAKER) (test jang=9510) Urine, Yusuf CT, [id number] 15:15:00Reason for exam:->ABDOMINAL PAINWhat is the patient's [...] Verified Date/ Time: 03/01/2018 15:15:27 Reading Location: [address] Body Reading Room BASIC METABOLIC [id number] 11:04:00 Test Item Value Reference Range Comments SODIUM (BEAKER) (test 136 meq/L 136-145 wihx=917) POTASSIUM (BEAKER) (test 4.0 meq/L 3.5-5.1 uzor=250) CHLORIDE (BEAKER) (test 108 meq/L 98-107 ntpc=693) CO2 (BEAKER) (test 15 meq/L 22-29 gony=395) BLOOD UREA NITROGEN 80 mg/dL 7-21 (BEAKER) (test aiwh=531) CREATININE (BEAKER) (test 4.79 mg/dL 0.57-1.25 hqer=284) GLUCOSE RANDOM (BEAKER) 84 mg/dL 70-105 (test kxrh=560) CALCIUM (BEAKER) (test 8.9 mg/dL 8.4-10.2 avzk=681) EGFR (BEAKER) (test 12 mL/min/1.73 sq m ESTIMATED GFR IS NOT nbak=3544) ACCURATE CREATININE CLEARANCE IN PREDICTING GLOMERULAR FILTRATION RATE. ESTIMATED GFR IS NOT APPLICABLE FOR DIALYSIS PATIENTS. [id number] 11:02:00 Test Item Value Reference Range Comments LIPASE (BEAKER) (test woxb=098) 61 U/L 8-78 [id number] 11:02:00 Test Item Value Reference Range Comments AMYLASE (BEAKER) (test whty=103) 113 U/L 25-125 HEPATIC FUNCTION [id number] 11:02:00 Test Item Value Reference Range Comments TOTAL PROTEIN (BEAKER) (test boeh=536) 6.8 gm/dL 6.0-8.3 ALBUMIN (BEAKER) (test mzxv=5042) 3.5 g/dL 3.5-5.0 BILIRUBIN TOTAL (BEAKER) (test gobp=800) 0.4 mg/dL 0.2-1.2 BILIRUBIN DIRECT (BEAKER) (test zzzv=394) 0.2 mg/dL 0.1-0.5 ALKALINE PHOSPHATASE (BEAKER) (test sveu=374) 78 U/L 40-150 AST (SGOT) (BEAKER) (test pceg=922) 20 U/L 5-34 ALT (SGPT) (BEAKER) (test yclo=121) 21 U/L 6-55 URINALYSIS W/ [id number] 11:01:00 Test Item Value Reference Range Comments COLOR (BEAKER) (test yvyg=465) Light Yellow CLARITY (BEAKER) (test aalh=368) Clear SPECIFIC GRAVITY UA (BEAKER) (test prxh=089) 1.006 1.001-1.035 PH UA (BEAKER) (test vwjx=134) 6.0 5.0-8.0 PROTEIN UA (BEAKER) (test pxhe=459) 300 mg/dL Negative GLUCOSE UA (BEAKER) (test snsw=903) 30 mg/dL Negative KETONES UA (BEAKER) (test gzre=767) Negative Negative BILIRUBIN UA (BEAKER) (test ysul=588) Negative Negative BLOOD UA (BEAKER) (test rurx=298) Trace Negative NITRITE UA (BEAKER) (test dfna=532) Negative Negative LEUKOCYTE ESTERASE UA (BEAKER) (test ibfs=424) Negative Negative UROBILINOGEN UA (BEAKER) (test bjvg=950) 0.2 mg/dL 0.2-1.0 RBC UA (BEAKER) (test pdso=126) < /HPF WBC UA (BEAKER) (test hgkb=699) < /HPF BACTERIA (BEAKER) (test mroa=967) Rare MUCUS (BEAKER) (test ctex=8308) Rare SOURCE(BEAKER) (test gbrl=8356) Urine, Voided CBC W/PLT COUNT & AUTO [id number] 10:49:00 Test Item Value Reference Range Comments WHITE BLOOD CELL COUNT (BEAKER) (test yriw=812) 5.6 K/ L 3.5-10.5 RED BLOOD CELL COUNT (BEAKER) (test szea=264) 3.10 M/ L 4.63-6.08 HEMOGLOBIN (BEAKER) (test xxvo=875) 9.8 GM/DL 13.7-17.5 HEMATOCRIT (BEAKER) (test pjgv=161) 29.7 % 40.1-51.0 MEAN CORPUSCULAR VOLUME (BEAKER) (test tenc=565) 95.8 fL 79.0-92.2 MEAN CORPUSCULAR HEMOGLOBIN (BEAKER) (test 31.6 pg 25.7-32.2 ecxg=783) MEAN CORPUSCULAR HEMOGLOBIN CONC (BEAKER) (test 33.0 GM/DL 32.3-36.5 jzis=131) RED CELL DISTRIBUTION WIDTH (BEAKER) (test 14.0 % 11.6-14.4 pmbb=353) PLATELET COUNT (BEAKER) (test uqev=427) 171 K/CU MM 150-450 MEAN PLATELET VOLUME (BEAKER) (test vguh=472) 11.1 fL 9.4-12.4 NUCLEATED RED BLOOD CELLS (BEAKER) (test 0 /100 WBC 0-0 cltq=297) NEUTROPHILS RELATIVE PERCENT (BEAKER) (test 69 % weaq=174) LYMPHOCYTES RELATIVE PERCENT (BEAKER) (test 16 % isqg=487) MONOCYTES RELATIVE PERCENT (BEAKER) (test 10 % utce=715) EOSINOPHILS RELATIVE PERCENT (BEAKER) (test 4 % hhbq=502) BASOPHILS RELATIVE PERCENT (BEAKER) (test 1 % zglo=266) NEUTROPHILS ABSOLUTE COUNT (BEAKER) (test 3.88 K/ L 1.78-5.38 jiiz=378) LYMPHOCYTES ABSOLUTE COUNT (BEAKER) (test 0.88 K/ L 1.32-3.57 xhpu=551) MONOCYTES ABSOLUTE COUNT (BEAKER) (test 0.56 K/ L 0.30-0.82 abwg=331) EOSINOPHILS ABSOLUTE COUNT (BEAKER) (test 0.25 K/ L 0.04-0.54 hznm=349) BASOPHILS ABSOLUTE COUNT (BEAKER) (test 0.03 K/ L 0.01-0.08 pydb=822) IMMATURE GRANULOCYTES-RELATIVE PERCENT (BEAKER) 0 % 0-1 (test tdju=4063)
[2019-01-08] MEDS ORDERED: ONDANSETRON 4 MG/2 ML VIAL ONE (19:43)
[2019-01-08] MEDS ORDERED: MORPHINE 4 MG/ML SYR ONE (19:43)
[2019-01-08 20:03] LABS: Absolute Lymphocytes (CBC) 0.5 K/uL (0.7-4.9); Eosinophils % 2.1 % (0-4.4); Lymphocytes % 14.1 % (15.3-44.8); MPV 8.9 fL (7.6-11.3); Monocytes % 11.2 % (3.3-12.3); RBC Red Blood Cell Count 3.29 M/uL (4.33-5.43)
[2019-01-08 20:04] LABS: Protime INR 1.27
[2019-01-08 20:34] LABS: Albumin 3.1 g/dL (3.4-5.0); Bilirubin Direct 0.3 mg/dL (0-0.2); Bilirubin Total 0.6 mg/dL (0.2-1.0); Magnesium 1.9 mg/dL (1.8-2.4); Potassium 3.9 mmol/L (3.5-5.1); Protein, Total 6.7 g/dL (6.4-8.2); Troponin (Emerg Dept Use Only) 0.03 ng/mL (0.0-0.045)
--- NOTE | 2019-01-08 20:36 | RAD REPORT ---
EXAM DESCRIPTION: Eliu Single View01/08/2019 8:12 pm CLINICAL HISTORY: Chest pain COMPARISON: January 03, 2019 FINDINGS: Mild bilateral pulmonary opacities. Small to moderate right and small left pleural effusio ns The heart is moderately enlarged. Postsurgical changes involve the chest. IMPRESSION: Mild pulmonary edema Small to moderate right and small left pleural effusions
[2019-01-08] MEDS ORDERED: MORPHINE 2 MG/ML SYR ONE ×2 (20:56→22:41)
[2019-01-08] MEDS ORDERED: FENTANYL CITR 100 MCG/2 ML ONE (22:45)
--- NOTE | 2019-01-08 23:35 | EDPHYS ---
Physician Documentation [facility] Name: Blaise Quarles Age: 78 yrs Sex: Male : 1940 Arrival Date: 01/08/2019 Time: 18:49 Bed 19 Private MD: ED Physician Morgan Vigil HPI: 01/08 19:34 This 78 yrs old Male presents to ER via Wheelchair with complaints of Chest pm1 Pain, Abdominal Pain, Back Pain. 19:34 The patient or guardian reports chest pain that is located primarily in the anterior pm1 chest wall, bilaterally. Onset: this morning. The pain does not radiate. Associated signs and symptoms: Pertinent positives: abdominal pain, Back pain, Pertinent negatives: cough, diaphoresis, dizziness, headache, nausea, palpitations, shortness of breath, vomiting. The chest pain is described as sharp. Duration: The patient or guardian reports a single episode, that is still ongoing, and unchanged. Severity of pain: in the emergency department the pain is actually worse. The patient has experienced similar episodes in the past, chronically, Patient with chronic abdominal pain and back pain. Seen in the ER multiple times for the same complaints of chest pain, abdominal pain and back pain. Patient reports single episode of chest pain that started this AM that has been continuous. Historical: - Allergies: 18:55 Aspirin; aj1 - Home Meds: 18:55 amlodipine 10 mg tab 1 tab once daily [Active]; clonazepam 1 mg Oral tab 1 tab 2 times aj1 per day [Active]; nitroglycerin 0.4 mg SL subl 1 tab [Active]; Risperdal 0.5 mg Oral tab 1 tabs 2 times per day [Active]; trazodone 100 mg Oral tab 1 tab nightly [Active]; - PMHx: 18:55 Anemia; CAD; cardiomegaly; CHF; chronic renal disease; Cirrhosis; Diabetes - IDDM; aj1 Dialysis; High Cholesterol; Hypertension; Myocardial infarction; pleural effusion; pulmonary nodule; Visually impared; - Immunization history:: Flu vaccine is up to date. - Social history:: Smoking status: Patient/guardian denies using tobacco. - Ebola Screening: : Patient denies travel to an Ebola-affected area in the 21 days before illness onset. ROS: 19:34 Constitutional: Negative for fever, chills, and weight loss, Eyes: Negative for injury, pm1 pain, redness, and discharge, ENT: Negative for injury, pain, and discharge, Neck: Negative for injury, pain, and swelling. 19:34 Respiratory: Negative for shortness of breath, cough, wheezing, and pleuritic chest pain. 19:34 : Negative for injury, bleeding, discharge, and swelling, MS/Extremity: Negative for injury and deformity, Skin: Negative for injury, rash, and discoloration, Neuro: Negative for headache, weakness, numbness, tingling, and seizure. 19:34 Cardiovascular: Positive for chest pain, Negative for edema, orthopnea, palpitations. 19:34 Abdomen/GI: Positive for abdominal pain, of the abdomen diffusely, Negative for nausea, vomiting, and diarrhea, constipation. 19:34 Back: Positive for of the low back area, pain, Negative for decreased range of motion. Exam: 19:34 Constitutional: This is a well developed, well nourished patient who is awake, alert, pm1 and in no acute distress. Head/Face: Normocephalic, atraumatic. Eyes: Pupils equal round and reactive to light, extra-ocular motions intact. Lids and lashes normal. Conjunctiva and sclera are non-icteric and not injected. Cornea within normal limits. Periorbital areas with no swelling, redness, or edema. ENT: Nares patent. No nasal discharge, no septal abnormalities noted. Tympanic membranes are normal and external auditory canals are clear. Oropharynx with no redness, swelling, or masses, exudates, or evidence of obstruction, uvula midline. Mucous membranes moist. Neck: Trachea midline, no thyromegaly or masses palpated, and no cervical lymphadenopathy. Supple, full range of motion without nuchal rigidity, or vertebral point tenderness. No Meningismus. Chest/axilla: Normal chest wall appearance and motion. Nontender with no deformity. No lesions are appreciated. Cardiovascular: Regular rate and rhythm with a normal S1 and S2. No gallops, murmurs, or rubs. Normal PMI, no JVD. No pulse deficits. Respiratory: Lungs have equal breath sounds bilaterally, clear to auscultation and percussion. No rales, rhonchi or wheezes noted. No increased work of breathing, no retractions or nasal flaring. Abdomen/GI: Soft, non-tender, with normal bowel sounds. No distension or tympany. No guarding or rebound. No evidence of tenderness throughout. Back: No spinal tenderness. No costovertebral tenderness. Full range of motion. Skin: Warm, dry with normal turgor. Normal color with no rashes, no lesions, and no evidence of cellulitis. MS/ Extremity: Pulses equal, no cyanosis. Neurovascular intact. Full, normal range of motion. 19:34 Neuro: Orientation: is normal, Motor: is normal, moves all fours, Sensation: is normal, no obvious gross deficits. Vital Signs: 18:55 BP 142 / 50; Pulse 60; Resp 18; Temp 97.7; Pulse Ox 97% on R/A; Weight 55.34 kg (R); aj1 Height 5 ft. 5 in. (165.10 cm) (R); Pain 10/10; 20:00 BP 140 / 52; Pulse 59; Resp 17; Pulse Ox 99% ; rr5 20:00 Pulse Ox 2 lpm NC; rr5 20:45 BP 152 / 85; Pulse 62; Resp 19; Pulse Ox 97% on 2 lpm NC; Pain 10/10; rr5 21:35 BP 133 / 79; Pulse 58; Resp 18; Pulse Ox 99% on 2 lpm NC; Pain 10/10; rr5 22:44 BP 143 / 45; Pulse 60; Resp 18; Temp 98; Pulse Ox 98% on 2 lpm NC; Pain 10/10; rr5 23:10 BP 165 / 52; Pulse 58; Resp 17; Pulse Ox 98% on 2 lpm NC; rr5 23:50 BP 159 / 59; Pulse 62; Resp 18; Temp 98.1; Pulse Ox 98% on 2 lpm NC; Pain 0/10; rr5 18:55 Body Mass Index 20.30 (55.34 kg, 165.10 cm) aj1 MDM: 19:20 Patient medically screened. pm1 23:33 Data reviewed: vital signs. Data interpreted: Pulse oximetry: on room air is 98 %. pm1 Interpretation: normal. Counseling: I had a detailed discussion with the patient and/or guardian regarding: the historical points, exam findings, and any diagnostic results supporting the discharge/admit diagnosis, lab results, radiology results, the need for outpatient follow up, to return to the emergency department if symptoms worsen or persist or if there are any questions or concerns that arise at home. 01/08 19:24 Order name: Basic Metabolic Panel; Complete Time: 20:53 pm01/08 19:24 Order name: CBC with Diff; Complete Time: 20:19 pm01/08 19:24 Order name: LFT's; Complete Time: 20:53 pm01/08 19:24 Order name: Magnesium; Complete Time: 20:53 pm01/08 19:24 Order name: NT PRO-BNP; Complete Time: 20:53 pm01/08 19:24 Order name: PT-INR; Complete Time: 20:19 pm01/08 19:24 Order name: Troponin (emerg Dept Use Only); Complete Time: 20:53 pm01/08 19:24 Order name: XRAY Chest (1 view); Complete Time: 20:38 pm01/08 19:24 Order name: EKG; Complete Time: 19:27 pm01/08 19:24 Order name: Cardiac monitoring; Complete Time: 19:25 pm01/08 19:24 Order name: EKG - Nurse/Tech; Complete Time: 19:25 pm01/08 19:24 Order name: IV Saline Lock; Complete Time: 20:04 pm01/08 19:24 Order name: Labs collected and sent; Complete Time: 20:04 pm01/08 19:24 Order name: O2 Per Protocol; Complete Time: 20:04 pm01/08 19:24 Order name: O2 Sat Monitoring; Complete Time: 20:04 pm1 Administered Medications: 19:50 Drug: Zofran 4 mg Route: IVP; Site: left antecubital; rr5 20:50 Follow up: Response: No adverse reaction rr5 19:52 Drug: morphine 4 mg Route: IVP; Site: left antecubital; rr5 20:50 Follow up: Response: No change in condition rr5 20:45 Drug: morphine 2 mg Route: IVP; Site: left antecubital; rr5 21:45 Follow up: Response: No adverse reaction rr5 22:40 Drug: fentaNYL (PF) 25 mcg Route: IVP; Site: left antecubital; rr5 23:40 Follow up: Response: No adverse reaction; Marked relief of symptoms rr5 Disposition: 06/30 07:00 Co-signature as Attending Physician, Morgan Vigil MD. rn Disposition: 01/08/19 23:34 Discharged to Home. Impression: Chest pain, unspecified, Recurrent chronic abdominal pain, Chronic renal failure. - Condition is Stable. - Discharge Instructions: Abdominal Pain, Adult, Nonspecific Chest Pain, Chronic Kidney Disease, Adult. - Medication Reconciliation Form, Thank You Letter, Antibiotic Education, Prescription Opioid Use form. - Follow up: Emergency Department; When: As needed; Reason: Worsening of condition. Follow up: Private Physician; When: 2 - 3 days; Reason: Recheck today's complaints, Continuance of care, Re-evaluation by your physician. - Problem is new. - Symptoms have improved. Signatures: Dispatcher [employer] EDMS Rivka Lyons RN RN aj1 Morgan Vigil MD MD rn Marinas, Patrick, [employer] pm1 Sergio Lora RN RN rr5 Corrections: (The following items were deleted from the chart) 01/08 23:36 23:34 01/08/2019 23:34 Discharged to Home. Impression: Chest pain, unspecified. pm1 Condition is Stable. Forms are Medication Reconciliation Form, Thank You Letter, Antibiotic Education, Prescription Opioid Use. Follow up: Emergency Department; When: As needed; Reason: Worsening of condition. Follow up: Private Physician; When: 2 - 3 days; Reason: Recheck today's complaints, Continuance of care, Re-evaluation by your physician. Problem is new. Symptoms have improved. pm1 01/09 00:00 01/08 23:36 01/08/2019 23:34 Discharged to Home. Impression: Chest pain, unspecified; rr5 Recurrent chronic abdominal pain; Chronic renal failure. Condition is Stable. Forms are Medication Reconciliation Form, Thank You Letter, Antibiotic Education, Prescription Opioid Use. Follow up: Emergency Department; When: As needed; Reason: Worsening of condition. Follow up: Private Physician; When: 2 - 3 days; Reason: Recheck today's complaints, Continuance of care, Re-evaluation by your physician. Problem is new. Symptoms have improved. pm1
--- NOTE | 2019-01-08 23:35 | ER ---
Nurse's Notes [facility] Name: Blaise Quarles Age: 78 yrs Sex: Male : 1940 Arrival Date: 01/08/2019 Time: 18:49 Bed 19 Private MD: Diagnosis: Chest pain, unspecified;Recurrent chronic abdominal pain;Chronic renal failure Presentation: 01/08 18:50 Presenting complaint: Child states: Chest pain, abdominal pain, neck pain, headache and aj1 back pain since this morning. Patient denies any other symptoms. Patient states that he wants a shot for the pain. Transition of care: patient was not received from another setting of care. Onset of symptoms was January 08, 2019. Risk Assessment: Do you want to hurt yourself or someone else? Patient reports no desire to harm self or others. Initial Sepsis Screen: Does the patient meet any 2 criteria? No. Patient's initial sepsis screen is negative. Does the patient have a suspected source of infection? No. Patient's initial sepsis screen is negative. Care prior to arrival: None. 18:50 Method Of Arrival: Wheelchair aj1 18:50 Acuity: SARATH 3 aj1 Triage Assessment: 18:55 General: Appears in no apparent distress. uncomfortable, Behavior is calm, cooperative, aj1 appropriate for age. Pain: Complains of pain in face, back, chest, abdomen and neck. Neuro: Level of Consciousness is awake, alert, obeys commands. Cardiovascular: Reports chest pain, Denies lightheadedness, nausea, palpitations, shortness of breath, syncope, vomiting, Patient's skin is warm and dry. Respiratory: Airway is patent Respiratory effort is even, unlabored, Respiratory pattern is regular, symmetrical, Denies shortness of breath. Historical: - Allergies: 18:55 Aspirin; aj1 - Home Meds: 18:55 amlodipine 10 mg tab 1 tab once daily [Active]; clonazepam 1 mg Oral tab 1 tab 2 times aj1 per day [Active]; nitroglycerin 0.4 mg SL subl 1 tab [Active]; Risperdal 0.5 mg Oral tab 1 tabs 2 times per day [Active]; trazodone 100 mg Oral tab 1 tab nightly [Active]; - PMHx: 18:55 Anemia; CAD; cardiomegaly; CHF; chronic renal disease; Cirrhosis; Diabetes - IDDM; aj1 Dialysis; High Cholesterol; Hypertension; Myocardial infarction; pleural effusion; pulmonary nodule; Visually impared; - Immunization history:: Flu vaccine is up to date. - Social history:: Smoking status: Patient/guardian denies using tobacco. - Ebola Screening: : Patient denies travel to an Ebola-affected area in the 21 days before illness onset. Screenin:13 Abuse screen: Denies threats or abuse. Denies injuries from another. Nutritional rr5 screening: No deficits noted. Tuberculosis screening: No symptoms or risk factors identified. Fall Risk Secondary diagnosis (15 points) visually impaired. IV access (20 points). Gait- Weak (10 pts.). Total Parson Fall Scale indicates High Risk Score (45 or more points). Fall prevention measures have been instituted. Side Rails Up X 2 Placed Close to Nursing Station Frequent Obs/Assessments Occuring Family Present and informed to notify staff if the need to leave the bedside As available patient and family educated on Fall Prevention Program and Strategies. Assessment: 19:15 General: Appears in no apparent distress. uncomfortable, Behavior is calm, cooperative, rr5 appropriate for age. Pain: Complains of pain in head,face, neck, chest,back, abdominal Pain does not radiate. Pain currently is 10 out of 10 on a pain scale. Quality of pain is described as aching, Pain began gradually, Is intermittent. Neuro: Level of Consciousness is awake, alert, obeys commands, Oriented to person, place, time, situation, Appropriate for age Reports headache. Cardiovascular: Reports chest pain, Capillary refill < 3 seconds Patient's skin is warm and dry. Dialysis shunt: right chest. Respiratory: Airway is patent Respiratory effort is even, unlabored, Respiratory pattern is regular, symmetrical, Parent/caregiver reports the patient having using oxygen at 2 liters per minute via nasal cannula. GI: Abdomen is flat, Reports lower abdominal pain, upper abdominal pain. : No signs and/or symptoms were reported regarding the genitourinary system. EENT: Parent/caregiver reports the patient having visually impaired.. Derm: Skin is fragile, is thin, Skin temperature is warm. Musculoskeletal: Reports pain in neck and back. 20:00 Reassessment: Patient appears in no apparent distress at this time. No changes from rr5 previously documented assessment. 20:45 Reassessment: Patient appears in no apparent distress at this time. ED provider rr5 informed patient complaining still of pain and requesting for pain medication order made and carried out. Patient states symptoms have not improved. 21:40 Reassessment: Patient appears in no apparent distress at this time. Patient is alert, rr5 oriented x 3, equal unlabored respirations, skin warm/dry/pink. complaining still in pain. decreased environmental stimuli. ED provider informed. Patient states symptoms have not improved. 22:30 Reassessment: Patient appears in no apparent distress at this time. reassess by ED rr5 provider with order made and carried out. Patient states symptoms have not improved. Reassessment: Patient appears in no apparent distress at this time. 23:30 Reassessment: Patient appears in no apparent distress at this time. Patient is alert, rr5 oriented x 3, equal unlabored respirations, skin warm/dry/pink. chatting with his information management specialist comfortably. no complaints made. Patient denies pain at this time. Patient states feeling better. Patient states symptoms have improved. 23:58 Reassessment: Patient appears in no apparent distress at this time. Patient is alert, rr5 oriented x 3, equal unlabored respirations, skin warm/dry/pink. discharge instruction given and explained without complaints made. Patient denies pain at this time. Patient states feeling better. Patient states symptoms have improved. Vital Signs: 18:55 BP 142 / 50; Pulse 60; Resp 18; Temp 97.7; Pulse Ox 97% on R/A; Weight 55.34 kg (R); aj1 Height 5 ft. 5 in. (165.10 cm) (R); Pain 10/10; 20:00 BP 140 / 52; Pulse 59; Resp 17; Pulse Ox 99% ; rr5 20:00 Pulse Ox 2 lpm NC; rr5 20:45 BP 152 / 85; Pulse 62; Resp 19; Pulse Ox 97% on 2 lpm NC; Pain 10/10; rr5 21:35 BP 133 / 79; Pulse 58; Resp 18; Pulse Ox 99% on 2 lpm NC; Pain 10/10; rr5 22:44 BP 143 / 45; Pulse 60; Resp 18; Temp 98; Pulse Ox 98% on 2 lpm NC; Pain 10/10; rr5 23:10 BP 165 / 52; Pulse 58; Resp 17; Pulse Ox 98% on 2 lpm NC; rr5 23:50 BP 159 / 59; Pulse 62; Resp 18; Temp 98.1; Pulse Ox 98% on 2 lpm NC; Pain 0/10; rr5 18:55 Body Mass Index 20.30 (55.34 kg, 165.10 cm) aj1 ED Course: 18:49 Patient arrived in ED. as 18:54 Triage completed. aj1 18:55 Arm band placed on Patient placed in an exam room. aj1 18:58 Tim Correa NP is PHCP. pm1 18:58 Morgan Vigil MD is Attending Physician. pm1 19:05 Oxygen administration via nasal cannula \T\ 2L/min Response to oxygen therapy: symptoms rr5 improved. 19:10 EKG done, by ED staff, reviewed by Tim Correa NP. rr5 19:13 Sergio Lora, RN is Primary Nurse. rr5 19:15 Patient has correct armband on for positive identification. Placed in gown. Bed in low rr5 position. Call light in reach. Side rails up X2. Adult w/ patient. air sampling and monitoring on. Pulse ox on. NIBP on. 19:40 Inserted saline lock: 22 gauge in left antecubital area, using aseptic technique. Blood rr5 collected. 20:12 XRAY Chest (1 view) In Process Unspecified. EDMS 23:50 No provider procedures requiring assistance completed. IV discontinued, intact, rr5 bleeding controlled, No redness/swelling at site. Pressure dressing applied. Administered Medications: 19:50 Drug: Zofran 4 mg Route: IVP; Site: left antecubital; rr5 20:50 Follow up: Response: No adverse reaction rr5 19:52 Drug: morphine 4 mg Route: IVP; Site: left antecubital; rr5 20:50 Follow up: Response: No change in condition rr5 20:45 Drug: morphine 2 mg Route: IVP; Site: left antecubital; rr5 21:45 Follow up: Response: No adverse reaction rr5 22:40 Drug: fentaNYL (PF) 25 mcg Route: IVP; Site: left antecubital; rr5 23:40 Follow up: Response: No adverse reaction; Marked relief of symptoms rr5 Outcome: 23:34 Discharge ordered by . pm1 23:55 Discharged to home via wheelchair, with family. rr5 23:55 Condition: stable 23:55 Discharge instructions given to patient, family, Instructed on discharge instructions, follow up and referral plans. Demonstrated understanding of instructions, follow-up care. 01/09 00:00 Patient left the ED. rr5 Signatures: Dispatcher [employer] EDRivka Martino RN RN aj1 Shanthi Palmer Patrick, NP FOSTER PARENT pm1 Sergio Lora RN RN rr5 Corrections: (The following items were deleted from the chart) 01/08 20:01 19:15 EENT: No signs and/or symptoms were reported regarding the EENT system. rr5 rr5
[2019-01-09 00:39] VITALS: BP 143/45; TEMP 98; O2SAT 98
--- NOTE | 2019-01-09 10:02 | EKG ---
Test Date: 2019-01-08 Test Time: 19:05:06 Experience Design Director: RR MEASUREMENT RESULTS: Intervals: Rate: 59 DC: 190 QRSD: 94 QT: 450 QTc: 445 [place]: P: 69 DC: 190 QRS: -7 T: 135 INTERPRETIVE STATEMENTS: Sinus bradycardia Possible Left atrial enlargement Septal infarct, age undetermined T wave abnormality, consider lateral ischemia Abnormal ECG Compared to ECG 01/03/2019 20:38:26 Left-axis deviation no longer present Myocardial infarct finding still present T-wave abnormality still present Possible ischemia still present Electronically Signed On 01-09-19 10:00:39 CDT by Brandon Pérez
== END 2019-01-09 | disposition home or self-care (01) ==
LOC: ER 18:47
DX: R07.9 Chest pain, unspecified (principal); E11.22 Type 2 diabetes mellitus with diabetic chronic kidney disease; I13.2 Hypertensive heart and chronic kidney disease with heart failure and with stage 5 chronic kidney disease, or end stage renal disease; I50.9 Heart failure, unspecified; N18.6 End stage renal disease; Z99.2 Dependence on renal dialysis; D64.9 Anemia, unspecified; Z79.4 Long term (current) use of insulin; Z88.6 Allergy status to analgesic agent
CPT/HCPCS: 93005; 85025; 80048; 36415; 83735; 85610; 80076; 84484; 83880; 71045; 96375; 96374; 99285; J3010; J2270; J2405

== ENCOUNTER 2019-01-09 19:37 | Emergency (ER) | payer OTHER ==
--- OUTSIDE RECORDS SUMMARY | 2019-01-09 19:41 | XMS REPORT ---
:1940 [facility] Address [address] [place] [address] Dr. Manley [address] [place] [id number] Care Team Providers Name Role Phone LAZRODNEY [...] Comments CULTURE (BEAKER) (test PSEUDOMONAS 70-79,000 col/mL xatd=6178) AERUGINOSA Pseudomonas aeruginosa Amikacin (test code=1) Susceptible [...] code=25) Resistant <0 or >4 URINALYSIS W/ [id number] 12:06:00 Test Item Value Reference Range Comments COLOR (BEAKER) (test wkba=566) Yellow CLARITY (BEAKER) (test wytx=995) Hazy SPECIFIC GRAVITY UA (BEAKER) (test dhqx=477) 1.012 1.001-1.035 PH UA (BEAKER) (test wbqt=507) 6.0 5.0-8.0 PROTEIN UA (BEAKER) (test hffk=043) 600 mg/dL Negative GLUCOSE UA (BEAKER) (test jofl=406) 100 mg/dL Negative KETONES UA (BEAKER) (test hszb=305) Negative Negative BILIRUBIN UA (BEAKER) (test xvwz=822) Negative Negative BLOOD UA (BEAKER) (test wzlx=392) Moderate Negative NITRITE UA (BEAKER) (test jzjt=342) Negative Negative LEUKOCYTE ESTERASE UA (BEAKER) (test xumk=664) Small Negative UROBILINOGEN UA (BEAKER) (test cotd=600) 0.2 mg/dL 0.2-1.0 RBC UA (BEAKER) (test obqj=929) 27 /HPF WBC UA (BEAKER) (test pxgo=053) 12 /HPF BACTERIA (BEAKER) (test qzlb=825) Occasional MUCUS (BEAKER) (test lpbl=8199) Rare SQUAMOUS EPITHELIAL (BEAKER) (test hueb=248) < /HPF HYALINE CASTS (BEAKER) (test ymoa=022) 2 /LPF GRANULAR CASTS (BEAKER) (test fpfz=520) 5 /LPF SOURCE(BEAKER) (test olwe=0282) Urine, Yusuf CT, [id number] 15:15:00Reason for exam:->ABDOMINAL PAINWhat is the patient's [...] Verified Date/ Time: 03/01/2018 15:15:27 Reading Location: [address] Body Reading Room BASIC METABOLIC [id number] 11:04:00 Test Item Value Reference Range Comments SODIUM (BEAKER) (test 136 meq/L 136-145 lwze=696) POTASSIUM (BEAKER) (test 4.0 meq/L 3.5-5.1 scmh=618) CHLORIDE (BEAKER) (test 108 meq/L 98-107 uawi=299) CO2 (BEAKER) (test 15 meq/L 22-29 ppjs=495) BLOOD UREA NITROGEN 80 mg/dL 7-21 (BEAKER) (test owfe=631) CREATININE (BEAKER) (test 4.79 mg/dL 0.57-1.25 ljym=462) GLUCOSE RANDOM (BEAKER) 84 mg/dL 70-105 (test dbwv=297) CALCIUM (BEAKER) (test 8.9 mg/dL 8.4-10.2 afoh=804) EGFR (BEAKER) (test 12 mL/min/1.73 sq m ESTIMATED GFR IS NOT pzgk=4266) ACCURATE CREATININE CLEARANCE IN PREDICTING GLOMERULAR FILTRATION RATE. ESTIMATED GFR IS NOT APPLICABLE FOR DIALYSIS PATIENTS. [id number] 11:02:00 Test Item Value Reference Range Comments LIPASE (BEAKER) (test tuwi=865) 61 U/L 8-78 [id number] 11:02:00 Test Item Value Reference Range Comments AMYLASE (BEAKER) (test dvts=783) 113 U/L 25-125 HEPATIC FUNCTION [id number] 11:02:00 Test Item Value Reference Range Comments TOTAL PROTEIN (BEAKER) (test ciof=468) 6.8 gm/dL 6.0-8.3 ALBUMIN (BEAKER) (test meut=6996) 3.5 g/dL 3.5-5.0 BILIRUBIN TOTAL (BEAKER) (test dqdn=676) 0.4 mg/dL 0.2-1.2 BILIRUBIN DIRECT (BEAKER) (test whwk=233) 0.2 mg/dL 0.1-0.5 ALKALINE PHOSPHATASE (BEAKER) (test jckj=984) 78 U/L 40-150 AST (SGOT) (BEAKER) (test ezdc=260) 20 U/L 5-34 ALT (SGPT) (BEAKER) (test mwjh=037) 21 U/L 6-55 URINALYSIS W/ [id number] 11:01:00 Test Item Value Reference Range Comments COLOR (BEAKER) (test knyu=814) Light Yellow CLARITY (BEAKER) (test afxd=344) Clear SPECIFIC GRAVITY UA (BEAKER) (test vbcd=114) 1.006 1.001-1.035 PH UA (BEAKER) (test ihie=890) 6.0 5.0-8.0 PROTEIN UA (BEAKER) (test bnfg=823) 300 mg/dL Negative GLUCOSE UA (BEAKER) (test hgmp=020) 30 mg/dL Negative KETONES UA (BEAKER) (test clei=865) Negative Negative BILIRUBIN UA (BEAKER) (test zgrz=847) Negative Negative BLOOD UA (BEAKER) (test wavg=349) Trace Negative NITRITE UA (BEAKER) (test wszs=678) Negative Negative LEUKOCYTE ESTERASE UA (BEAKER) (test zowq=511) Negative Negative UROBILINOGEN UA (BEAKER) (test aauc=079) 0.2 mg/dL 0.2-1.0 RBC UA (BEAKER) (test ewla=719) < /HPF WBC UA (BEAKER) (test zmie=954) < /HPF BACTERIA (BEAKER) (test trge=695) Rare MUCUS (BEAKER) (test cgdt=2606) Rare SOURCE(BEAKER) (test qjhm=2489) Urine, Voided CBC W/PLT COUNT & AUTO [id number] 10:49:00 Test Item Value Reference Range Comments WHITE BLOOD CELL COUNT (BEAKER) (test evil=301) 5.6 K/ L 3.5-10.5 RED BLOOD CELL COUNT (BEAKER) (test buos=371) 3.10 M/ L 4.63-6.08 HEMOGLOBIN (BEAKER) (test sycd=029) 9.8 GM/DL 13.7-17.5 HEMATOCRIT (BEAKER) (test pyeu=908) 29.7 % 40.1-51.0 MEAN CORPUSCULAR VOLUME (BEAKER) (test hbjc=100) 95.8 fL 79.0-92.2 MEAN CORPUSCULAR HEMOGLOBIN (BEAKER) (test 31.6 pg 25.7-32.2 cmqr=136) MEAN CORPUSCULAR HEMOGLOBIN CONC (BEAKER) (test 33.0 GM/DL 32.3-36.5 lqzr=920) RED CELL DISTRIBUTION WIDTH (BEAKER) (test 14.0 % 11.6-14.4 gcbd=023) PLATELET COUNT (BEAKER) (test uubt=222) 171 K/CU MM 150-450 MEAN PLATELET VOLUME (BEAKER) (test dail=680) 11.1 fL 9.4-12.4 NUCLEATED RED BLOOD CELLS (BEAKER) (test 0 /100 WBC 0-0 zygw=173) NEUTROPHILS RELATIVE PERCENT (BEAKER) (test 69 % mife=548) LYMPHOCYTES RELATIVE PERCENT (BEAKER) (test 16 % ovdh=251) MONOCYTES RELATIVE PERCENT (BEAKER) (test 10 % abmg=838) EOSINOPHILS RELATIVE PERCENT (BEAKER) (test 4 % uswi=497) BASOPHILS RELATIVE PERCENT (BEAKER) (test 1 % tdjn=398) NEUTROPHILS ABSOLUTE COUNT (BEAKER) (test 3.88 K/ L 1.78-5.38 tfir=045) LYMPHOCYTES ABSOLUTE COUNT (BEAKER) (test 0.88 K/ L 1.32-3.57 acsz=624) MONOCYTES ABSOLUTE COUNT (BEAKER) (test 0.56 K/ L 0.30-0.82 hgjw=158) EOSINOPHILS ABSOLUTE COUNT (BEAKER) (test 0.25 K/ L 0.04-0.54 hxtt=635) BASOPHILS ABSOLUTE COUNT (BEAKER) (test 0.03 K/ L 0.01-0.08 kluf=116) IMMATURE GRANULOCYTES-RELATIVE PERCENT (BEAKER) 0 % 0-1 (test izbz=5399)
--- OUTSIDE RECORDS SUMMARY | 2019-01-09 19:41 | XMS REPORT | Clinical Summary ---
:1940 Author Organization [facility] Address [address] [place] [address] Care Team Providers Name Role Phone Moo [...] 03/01/2018 Orders Only General Internal Medicine after 01/08/2018 Family History Medical History Relation Name Comments [...] 452 ms QTC Calculation(Bazett) 458 ms P Bolton 66 degrees R Bolton -24 degrees T Bolton 140 degrees Normal sinus rhythm Possible Left [...] MICROSCOPIC STAT 03/01/2018 10:19 AM CDT after 01/08/2018 Results Urinalysis w/Microscopic (03/03/2018 11:08 AM CDT)Only the most recent of2 resultswithin the time period is included. Color, UA Yellow [facility] Clarity, UA Hazy [facility] Specific [place], UA 1.012 1.001 - 1.035 [facility] pH, UA 6.0 5.0 - 8.0 [facility] Protein, UA 600 mg/dL (A) Negative [facility] Glucose, UA 100 mg/dL (A) Negative [facility] Ketones, UA Negative Negative [facility] Bilirubin, UA Negative Negative [facility] Blood, UA Moderate (A) Negative [facility] Nitrite, UA Negative Negative [facility] Leukocytes, UA Small (A) Negative [facility] Urobilinogen, UA 0.2 0.2 - 1.0 mg/dL [facility] RBC, UA 27 /HPF [facility] WBC, UA 12 /HPF [facility] Bacteria, UA Occasional [facility] Mucus Rare [facility] Squam Epithel, UA <1 /HPF [facility] Hyaline Casts, UA 2 /LPF [facility] Granular Casts, UA 5 /LPF [facility] Specimen Source Urine, Yusuf [facility] Specimen Urine Performing Organization Address [facility] Phone Number [facility] [address] [place] [address] [phone] [place] [facility] Urine culture (03/03/2018 11:08 AM CDT) Result 70-79,000 col/mL Pseudomonas [facility] aeruginosa (A) [facility] Specimen Urine [...] Tobramycin <=2: Susceptible Performing Organization Address [facility] Phone Number [address] [address] [phone] [facility] ED ECG Interpretation (03/02/2018 7:12 AM CDT) Narrative Performed At Macrina Gómez MD 03/02/20187:12 AM ECG/EKG Interpretation Date/Time: 03/01/2018 10:25 AM Performed by: MACRINA GÓMEZ. Authorized by: MACRINA GÓMEZ The ECG was interpreted by ED physician. The ECG is interpreted as sinus rhythm. Rate is normal rate. Conduction: conduction normal. ST segments abnormal. T waves abnormal. Bolton is normal. Other findings: no other findings. Clinical Impression: non-specific ECG and abnormal ECG CT abdomen pelvis without contrast (03/01/2018 1:46 PM CDT) Specimen Narrative Performed At FINAL REPORT [facility] ABDOMINAL AND PELVIS CT DATED [...] MD Report Verified Date/Time:03/01/2018 15:15:27 Reading Location: [facility] C013Y CT Body Reading Room Procedure [...] Report Verified Date/Time: 03/01/2018 15:15:27 Reading Location: [facility] C013Y CT Body Reading Room Performing Organization Address City/State/Zipcode Phone Number GE RIS CBC with platelet count + automated diff (03/01/2018 10:29 AM CDT) WBC 5.6 3.5 - 10.5 K/L [facility] RBC 3.10 (L) 4.63 - 6.08 M/L [facility] Hemoglobin 9.8 (L) 13.7 - 17.5 GM/DL [facility] Hematocrit 29.7 (L) 40.1 - 51.0 % [facility] MCV 95.8 (H) 79.0 - 92.2 fL [facility] MCH 31.6 25.7 - 32.2 pg [facility] MCHC 33.0 32.3 - 36.5 GM/DL [facility] RDW 14.0 11.6 - 14.4 % [facility] Platelets 171 150 - 450 K/CU MM [facility] MPV 11.1 9.4 - 12.4 fL [facility] nRBC 0 0 - 0 /100 WBC [facility] % Neutros 69 % [facility] % Lymphs 16 % [facility] % Monos 10 % [facility] % Eos 4 % [facility] % Baso 1 % [facility] # Neutros 3.88 1.78 - 5.38 K/L [facility] # Lymphs 0.88 (L) 1.32 - 3.57 K/L [facility] # Monos 0.56 0.30 - 0.82 K/L [facility] # Eos 0.25 0.04 - 0.54 K/L [facility] # Baso 0.03 0.01 - 0.08 K/L [facility] Immature Granulocytes-Relative 0 0 - 1 % [facility] Specimen Blood Performing Organization Address City/State/Zipcode Phone Number [address] [address] [phone] CENTER Lipase (03/01/2018 10:29 AM CDT) Lipase 61 8 - 78 U/L [facility] Specimen Blood Performing Organization Address City/[facility] Phone Number [address] [address] [place] Amylase (03/01/2018 10:29 AM CDT) Amylase 113 25 - 125 U/L [facility] Specimen Blood Performing Organization Address City/[facility]/Zipcode Phone Number [address] [address] [place] Hepatic function panel (03/01/2018 10:29 AM CDT) Protein, Total 6.8 6.0 - 8.3 gm/dL [facility] Albumin 3.5 3.5 - 5.0 g/dL [facility] Total Bilirubin 0.4 0.2 - 1.2 mg/dL [facility] Bilirubin, Direct 0.2 0.1 - 0.5 mg/dL [facility] Alkaline Phosphatase 78 40 - 150 U/L [facility] AST 20 5 - 34 U/L [facility] ALT 21 6 - 55 U/L [facility] Specimen Blood Performing Organization Address City/[facility] Phone Number [facility] [address] [place] [phone] [place] Basic Metabolic Panel (03/01/2018 10:29 AM CDT) Sodium 136 136 - 145 meq/L [facility] Potassium 4.0 3.5 - 5.1 meq/L [facility] Chloride 108 (H) 98 - 107 meq/L [facility] CO2 15 (L) 22 - 29 meq/L [facility] BUN 80 (H) 7 - 21 mg/dL [facility] Creatinine 4.79 (H) 0.57 - 1.25 mg/dL [facility] Glucose 84 70 - 105 mg/dL [facility] Calcium 8.9 8.4 - 10.2 mg/dL [facility] EGFR 12Comment: ESTIMATED GFR IS mL/min/1.73 sq m [facility] NOT ACCURATE CREATININE [facility] CLEARANCE IN PREDICTING GLOMERULAR FILTRATION RATE. ESTIMATED GFR IS NOT APPLICABLE FOR DIALYSIS PATIENTS. Specimen Blood Performing Organization Address City/[facility] [place] [facility] Cent[facility] Phone Number [facility] [address] [place] [phone] [place] ECG 12 lead (03/01/2018 10:20 AM CDT) Specimen Narrative Performed At Ventricular Rate 62 BPM GE MUSE Atrial Rate 62 BPM P-R Interval 178 ms QRS Duration 96 ms Q-T Interval 452 ms QTC Calculation(Bazett) 458 ms P Bolton 66 degrees R Bolton -24 degrees T Bolton 140 degrees Normal sinus rhythm Possible Left [...] 452 ms QTC Calculation(Bazett) 458 ms P Bolton 66 degrees R Bolton -24 degrees T Bolton 140 degrees Normal sinus rhythm Possible Left [...] Address City/State/Zipcode Phone Number GE MUSE after 01/08/2018 Insurance Payer Benefit Plan / Group Subscriber ID Type Phone Address MEDICARE MEDICARE A B xxxxxxxxxx Medicare MEDICAID MEDICAID [facility] xxxxxxxxx Medicaid Advance Directives For more information, please contact:[address] [phone] Code Status Date Activated Date Inactivated Comments [...]
--- NOTE | 2019-01-09 20:16 | ER ---
Nurse's Notes [facility] Name: Blaise Quarles Age: 78 yrs Sex: Male : 1940 Arrival Date: 01/09/2019 Time: 19:39 Bed 20 Private MD: Diagnosis: Generalized abdominal pain;Chronic pain syndrome Presentation: 01/09 19:55 Presenting complaint: Patient states: he is here for abdominal pain pt is asking for bb morphine, pt refusing to have vital signs taken he just repeats morphine. Transition of care: patient was not received from another setting of care. Onset of symptoms is unknown. Risk Assessment: Do you want to hurt yourself or someone else? Unable to obtain. 19:55 Method Of Arrival: Wheelchair bb 19:55 Acuity: SARATH 3 bb 20:[address] Santos and pt talking with assistance of language line. Pt states "I need you to bb inject the drug because I can't take the pain anymore" Pt continues to repeat "I can't take it anymore" Dr Santos states "We are very sorry he is having this problem but he needs to see a pain specialist to manage his chronic pain. We will be glad to refer him to a pain specialist.". 20:[address] Santos states "We will check his blood work but we will not give him narcotic bb medication for his chronic pain.". 20:14 Note Matt Vides RN is talking to the pt with the assistance of the language line bb pt is refusing any lab work and will leave. 20:15 Note pt eloped with family without signing any paperwork. bb ED Course: 19:39 Patient arrived in ED. do 19:48 Uriel Santos MD is Attending Physician. gs 19:56 Triage completed. bb 20:17 Austin Snow DO is Referral Physician. gs 20:18 Austin Snow DO is Referral Physician. gs Administered Medications: No medications were administered Outcome: 20:16 Patient left the ED. bb 20:19 Discharge ordered by . gs 20:24 Patient left the ED. jd3 Signatures: Naima Rojas RN RN bb Layla Pendleton Gregory, MD MD gs Davies, Jonathon, RN RN jd3 Corrections: (The following items were deleted from the chart) 20:16 20:14 Note Matt Vides RN is talking to the pt with the assistance of the language bb line pt is refusing any lab work and will leave AMA bb
--- NOTE | 2019-01-09 20:17 | EDPHYS ---
Physician Documentation [facility] Name: Blaise Quarles Age: 78 yrs Sex: Male : 1940 Arrival Date: 01/09/2019 Time: 19:39 Bed 20 Private MD: ED Physician Uriel Santos HPI: 01/09 20:09 This 78 yrs old Male presents to ER via Wheelchair with complaints of gs Abdominal Pain. 20:09 The patient presents with abdominal pain that is diffuse. Onset: The symptoms/episode gs began/occurred 8 month(s) ago. The symptoms do not radiate. Associated signs and symptoms: Pertinent negatives: blood in stools, vomiting. The symptoms are described as crampy. Modifying factors: The symptoms are alleviated by morphine, pt demanding morphine. Severity of pain: At its worst the pain was severe in the emergency department the pain is unchanged. The patient has experienced similar episodes in the past, chronically, everyday. 20:09 powder carrier line used. gs ROS: 20:09 All other systems are negative. gs Exam: 20:09 Head/Face: Normocephalic, atraumatic. Eyes: Pupils equal round and reactive to light, gs extra-ocular motions intact. Lids and lashes normal. Conjunctiva and sclera are non-icteric and not injected. Cornea within normal limits. Periorbital areas with no swelling, redness, or edema. ENT: Nares patent. No nasal discharge, no septal abnormalities noted. Tympanic membranes are normal and external auditory canals are clear. Oropharynx with no redness, swelling, or masses, exudates, or evidence of obstruction, uvula midline. Mucous membranes moist. Neck: Trachea midline, no thyromegaly or masses palpated, and no cervical lymphadenopathy. Supple, full range of motion without nuchal rigidity, or vertebral point tenderness. No Meningismus. Chest/axilla: Normal chest wall appearance and motion. Nontender with no deformity. No lesions are appreciated. Cardiovascular: Regular rate and rhythm with a normal S1 and S2. No gallops, murmurs, or rubs. Normal PMI, no JVD. No pulse deficits. Respiratory: Lungs have equal breath sounds bilaterally, clear to auscultation and percussion. No rales, rhonchi or wheezes noted. No increased work of breathing, no retractions or nasal flaring. Abdomen/GI: Soft, non-tender, with normal bowel sounds. No distension or tympany. No guarding or rebound. No evidence of tenderness throughout. Back: No spinal tenderness. No costovertebral tenderness. Full range of motion. Skin: Warm, dry with normal turgor. Normal color with no rashes, no lesions, and no evidence of cellulitis. MS/ Extremity: Pulses equal, no cyanosis. Neurovascular intact. Full, normal range of motion. Neuro: Awake and alert, GCS 15, oriented to person, place, time, and situation. Cranial nerves II-XII grossly intact. Motor strength 5/5 in all extremities. Sensory grossly intact. Cerebellar exam normal. Normal gait. 20:09 Constitutional: The patient appears alert, awake. MDM: 20:07 Patient medically screened. 20:09 Data reviewed: vital signs, nurses notes. ED course: pt was informed that we would glad to work him up again but would not summarily give him a narcotic pain shot as demanded. this is chronic pain syndrome.. 20:20 ED course: pt refused treatment demanded narcotic informed him and his family i would gs be glad to evaluate for an emergency medical condition but would not treat his chronic pain uneccessarily. 01/09 20:07 Order name: EKG - Nurse/Tech gs Administered Medications: No medications were administered Disposition: 01/09/19 20:19 Discharged to Home. Impression: Generalized abdominal pain, Chronic pain syndrome. - Condition is Stable. - Discharge Instructions: Abdominal Pain, Adult, Chronic Pain. - Medication Reconciliation Form, Thank You Letter, Antibiotic Education, Prescription Opioid Use form. - Follow up: Austin Snow DO; When: 2 - 3 days; Reason: Re-evaluation by your physician. Signatures: Dispatcher [employer] Naima Wang RN RN bb Starr, Gregory, MD MD gs Davies, Jonathon, RN RN jd3 Corrections: (The following items were deleted from the chart) 20:17 20:16 01/09/2019 20:16 Patient left the facility after being seen by provider. Reason gs stated they are leaving due to (see nurse's notes). catracho 20:18 20:17 01/09/2019 20:16 Patient left the facility after being seen by provider. gs Preliminary diagnosis is Generalized abdominal pain; Chronic pain syndrome. Reason stated they are leaving due to (see nurse's notes). Condition is Stable. 20:24 20:19 01/09/2019 20:19 Discharged to Home. Impression: Generalized abdominal pain; jd3 Chronic pain syndrome. Condition is Stable. Forms are Medication Reconciliation Form, Thank You Letter, Antibiotic Education, Prescription Opioid Use. Follow up: Austin Snow; When: 2 - 3 days; Reason: Re-evaluation by your physician. gs
== END 2019-01-09 20:24 | disposition home or self-care (01) ==
LOC: ER 19:37
DX: E11.649 Type 2 diabetes mellitus with hypoglycemia without coma (principal); I25.10 Atherosclerotic heart disease of native coronary artery without angina pectoris; I13.2 Hypertensive heart and chronic kidney disease with heart failure and with stage 5 chronic kidney disease, or end stage renal disease; E11.22 Type 2 diabetes mellitus with diabetic chronic kidney disease; N18.6 End stage renal disease; I50.9 Heart failure, unspecified; Z99.2 Dependence on renal dialysis; I25.2 Old myocardial infarction; Z88.6 Allergy status to analgesic agent; D64.9 Anemia, unspecified
CPT/HCPCS: 99281

== ENCOUNTER 2019-01-11 10:34 | Inpatient (IN) | payer OTHER ==
--- OUTSIDE RECORDS SUMMARY | 2019-01-11 10:40 | XMS REPORT ---
:1940 [facility] Address [address] [place] [address] Dr. Manley [address] [place] [id number] Care Team Providers Name Role Phone LAZ [...] Comments CULTURE (BEAKER) (test PSEUDOMONAS 70-79,000 col/mL appn=6715) AERUGINOSA Pseudomonas aeruginosa Amikacin (test code=1) Susceptible [...] code=25) Resistant <0 or >4 URINALYSIS W/ [id number] 12:06:00 Test Item Value Reference Range Comments COLOR (BEAKER) (test zvia=945) Yellow CLARITY (BEAKER) (test jcnn=443) Hazy SPECIFIC GRAVITY UA (BEAKER) (test yzds=427) 1.012 1.001-1.035 PH UA (BEAKER) (test pueo=700) 6.0 5.0-8.0 PROTEIN UA (BEAKER) (test sebe=322) 600 mg/dL Negative GLUCOSE UA (BEAKER) (test pbcl=395) 100 mg/dL Negative KETONES UA (BEAKER) (test miak=457) Negative Negative BILIRUBIN UA (BEAKER) (test fjva=147) Negative Negative BLOOD UA (BEAKER) (test lzuz=179) Moderate Negative NITRITE UA (BEAKER) (test jvls=377) Negative Negative LEUKOCYTE ESTERASE UA (BEAKER) (test wswx=918) Small Negative UROBILINOGEN UA (BEAKER) (test kmjz=186) 0.2 mg/dL 0.2-1.0 RBC UA (BEAKER) (test dswm=830) 27 /HPF WBC UA (BEAKER) (test vowa=660) 12 /HPF BACTERIA (BEAKER) (test cjmk=553) Occasional MUCUS (BEAKER) (test cjqw=1030) Rare SQUAMOUS EPITHELIAL (BEAKER) (test ndsb=054) < /HPF HYALINE CASTS (BEAKER) (test snqr=186) 2 /LPF GRANULAR CASTS (BEAKER) (test vjoz=994) 5 /LPF SOURCE(BEAKER) (test jpho=4563) Urine, Yusuf CT, [id number] 15:15:00Reason for exam:->ABDOMINAL PAINWhat is the patient's [...] Verified Date/ Time: 03/01/2018 15:15:27 Reading Location: [address] Body Reading Room BASI METABOLIC [id number] 11:04:00 Test Item Value Reference Range Comments SODIUM (BEAKER) (test 136 meq/L 136-145 iljd=761) POTASSIUM (BEAKER) (test 4.0 meq/L 3.5-5.1 cozz=019) CHLORIDE (BEAKER) (test 108 meq/L 98-107 lccq=165) CO2 (BEAKER) (test 15 meq/L 22-29 fsex=011) BLOOD UREA NITROGEN 80 mg/dL 7-21 (BEAKER) (test axtf=212) CREATININE (BEAKER) (test 4.79 mg/dL 0.57-1.25 nxyr=948) GLUCOSE RANDOM (BEAKER) 84 mg/dL 70-105 (test eckt=773) CALCIUM (BEAKER) (test 8.9 mg/dL 8.4-10.2 ccfd=248) EGFR (BEAKER) (test 12 mL/min/1.73 sq m ESTIMATED GFR IS NOT pfrp=8619) ACCURATE CREATININE CLEARANCE IN PREDICTING GLOMERULAR FILTRATION RATE. ESTIMATED GFR IS NOT APPLICABLE FOR DIALYSIS PATIENTS. [id number] 11:02:00 Test Item Value Reference Range Comments LIPASE (BEAKER) (test rrtw=246) 61 U/L 8-78 [id number] 11:02:00 Test Item Value Reference Range Comments AMYLASE (BEAKER) (test ivpe=749) 113 U/L 25-125 HEPATIC FUNCTION [id number] 11:02:00 Test Item Value Reference Range Comments TOTAL PROTEIN (BEAKER) (test wjko=927) 6.8 gm/dL 6.0-8.3 ALBUMIN (BEAKER) (test xowi=7960) 3.5 g/dL 3.5-5.0 BILIRUBIN TOTAL (BEAKER) (test inmu=255) 0.4 mg/dL 0.2-1.2 BILIRUBIN DIRECT (BEAKER) (test beoj=006) 0.2 mg/dL 0.1-0.5 ALKALINE PHOSPHATASE (BEAKER) (test sdcf=463) 78 U/L 40-150 AST (SGOT) (BEAKER) (test viae=896) 20 U/L 5-34 ALT (SGPT) (BEAKER) (test rdyg=874) 21 U/L 6-55 URINALYSIS W/ [id number] 11:01:00 Test Item Value Reference Range Comments COLOR (BEAKER) (test ypdq=441) Light Yellow CLARITY (BEAKER) (test fgoa=797) Clear SPECIFIC GRAVITY UA (BEAKER) (test xoqe=327) 1.006 1.001-1.035 PH UA (BEAKER) (test uvec=322) 6.0 5.0-8.0 PROTEIN UA (BEAKER) (test pofv=488) 300 mg/dL Negative GLUCOSE UA (BEAKER) (test qzzl=484) 30 mg/dL Negative KETONES UA (BEAKER) (test nltl=370) Negative Negative BILIRUBIN UA (BEAKER) (test wjjo=493) Negative Negative BLOOD UA (BEAKER) (test xfdx=667) Trace Negative NITRITE UA (BEAKER) (test pqyt=732) Negative Negative LEUKOCYTE ESTERASE UA (BEAKER) (test xmkm=277) Negative Negative UROBILINOGEN UA (BEAKER) (test xezq=508) 0.2 mg/dL 0.2-1.0 RBC UA (BEAKER) (test mgyt=148) < /HPF WBC UA (BEAKER) (test tzfj=591) < /HPF BACTERIA (BEAKER) (test wqih=799) Rare MUCUS (BEAKER) (test jimm=1998) Rare SOURCE(BEAKER) (test gjqp=1938) Urine, Voided CBC W/PLT COUNT & AUTO [id number] 10:49:00 Test Item Value Reference Range Comments WHITE BLOOD CELL COUNT (BEAKER) (test imap=843) 5.6 K/ L 3.5-10.5 RED BLOOD CELL COUNT (BEAKER) (test rlwz=847) 3.10 M/ L 4.63-6.08 HEMOGLOBIN (BEAKER) (test tcfh=957) 9.8 GM/DL 13.7-17.5 HEMATOCRIT (BEAKER) (test zkmx=467) 29.7 % 40.1-51.0 MEAN CORPUSCULAR VOLUME (BEAKER) (test qput=493) 95.8 fL 79.0-92.2 MEAN CORPUSCULAR HEMOGLOBIN (BEAKER) (test 31.6 pg 25.7-32.2 ldwf=642) MEAN CORPUSCULAR HEMOGLOBIN CONC (BEAKER) (test 33.0 GM/DL 32.3-36.5 ryjy=406) RED CELL DISTRIBUTION WIDTH (BEAKER) (test 14.0 % 11.6-14.4 cntd=806) PLATELET COUNT (BEAKER) (test nnbf=411) 171 K/CU MM 150-450 MEAN PLATELET VOLUME (BEAKER) (test apkh=853) 11.1 fL 9.4-12.4 NUCLEATED RED BLOOD CELLS (BEAKER) (test 0 /100 WBC 0-0 grmy=708) NEUTROPHILS RELATIVE PERCENT (BEAKER) (test 69 % twsq=783) LYMPHOCYTES RELATIVE PERCENT (BEAKER) (test 16 % zrel=383) MONOCYTES RELATIVE PERCENT (BEAKER) (test 10 % hack=559) EOSINOPHILS RELATIVE PERCENT (BEAKER) (test 4 % nret=214) BASOPHILS RELATIVE PERCENT (BEAKER) (test 1 % vmco=429) NEUTROPHILS ABSOLUTE COUNT (BEAKER) (test 3.88 K/ L 1.78-5.38 dufz=064) LYMPHOCYTES ABSOLUTE COUNT (BEAKER) (test 0.88 K/ L 1.32-3.57 ogzy=243) MONOCYTES ABSOLUTE COUNT (BEAKER) (test 0.56 K/ L 0.30-0.82 cdjk=165) EOSINOPHILS ABSOLUTE COUNT (BEAKER) (test 0.25 K/ L 0.04-0.54 zedi=760) BASOPHILS ABSOLUTE COUNT (BEAKER) (test 0.03 K/ L 0.01-0.08 utpt=224) IMMATURE GRANULOCYTES-RELATIVE PERCENT (BEAKER) 0 % 0-1 (test qchg=8123)
--- OUTSIDE RECORDS SUMMARY | 2019-01-11 10:40 | XMS REPORT | Clinical Summary ---
:1940 Author Organization [facility] Address [address] [place] [address] Care Team Providers Name Role Phone Moo [...] 03/01/2018 Orders Only General Internal Medicine after 01/10/2018 Family History Medical History Relation Name Comments [...] 452 ms QTC Calculation(Bazett) 458 ms P [place] 66 degrees R [place] -24 degrees T [place] 140 degrees Normal sinus rhythm Possible Left [...] MICROSCOPIC STAT 03/01/2018 10:19 AM CDT after 01/10/2018 Results Urinalysis w/Microscopic (03/03/2018 11:08 AM CDT)Only the most recent of2 resultswithin the time period is included. Color, UA Yellow [facility] Clarity, UA Hazy [facility] Specific [place], UA 1.012 1.001 - 1.035 [facility] pH, UA 6.0 5.0 - 8.0 [facility] Protein, UA 600 mg/dL (A) Negative [facility] Glucose, UA 100 mg/dL (A) Negative [facility] Ketones, UA Negative Negative [facility] Bilirubin, UA Negative Negative [facility] Blood, UA Moderate (A) Negative [facility] Nitrite, UA Negative Negative [facility] Leukocytes, UA Small (A) Negative [facility] Urobilinogen, UA 0.2 0.2 - 1.0 mg/dL [facility] RBC, UA 27 /HPF [facility] WBC, UA 12 /HPF [facility] Bacteria, UA Occasional [facility] Mucus Rare [facility] Squam Epithel, UA <1 /HPF [facility] Hyaline Casts, UA 2 /LPF [facility] Granular Casts, UA 5 /LPF [facility] Specimen Source Urine, Yusuf [facility] Specimen Urine Performing Organization Address [facility] Phone Number [facility] [address] [place] [address] [facility] Urine culture (03/03/2018 11:08 AM CDT) Result 70-79,000 col/mL Pseudomonas [facility] aeruginosa (A) [facility] Specimen Urine Organism [...] aeruginosa Tobramycin <=2: Susceptible Performing Organization Address [facility] [place], [place] Phone Number [address] [address] [phone] [facility] ED ECG Interpretation (03/02/2018 7:12 AM CDT) Narrative Performed At Macrina Gómez MD 03/02/20187:12 AM ECG/EKG Interpretation Date/Time: 03/01/2018 10:25 AM Performed by: MACRINA GÓMEZ. Authorized by: MACRINA GÓMEZ The ECG was interpreted by ED physician. The ECG is interpreted as sinus rhythm. Rate is normal rate. Conduction: conduction normal. ST segments abnormal. T waves abnormal. [place] is normal. Other findings: no other findings. Clinical Impression: non-specific ECG and abnormal ECG CT abdomen pelvis without contrast (03/01/2018 1:46 PM CDT) Specimen Narrative Performed At FINAL REPORT [employer] [facility] ABDOMINAL AND PELVIS CT DATED [...] MD Report Verified Date/Time:03/01/2018 15:15:27 Reading Location: [facility] C013Y CT Body Reading Room Procedure Note [...] Report Verified Date/Time: 03/01/2018 15:15:27 Reading Location: [facility] C013Y CT Body Reading Room Performing Organization Address City/State/Zipcode Phone Number GE RIS CBC with platelet count + automated diff (03/01/2018 10:29 AM CDT) WBC 5.6 3.5 - 10.5 K/L [facility] RBC 3.10 (L) 4.63 - 6.08 M/L [facility] Hemoglobin 9.8 (L) 13.7 - 17.5 GM/DL [facility] Hematocrit 29.7 (L) 40.1 - 51.0 % [facility] MCV 95.8 (H) 79.0 - 92.2 fL [facility] MCH 31.6 25.7 - 32.2 pg [facility] MCHC 33.0 32.3 - 36.5 GM/DL [facility] RDW 14.0 11.6 - 14.4 % [facility] Platelets 171 150 - 450 K/CU MM [facility] MPV 11.1 9.4 - 12.4 fL [facility] nRBC 0 0 - 0 /100 WBC [facility] % Neutros 69 % [facility] % Lymphs 16 % [facility] % Monos 10 % [facility] % Eos 4 % [facility] % Baso 1 % [facility] # Neutros 3.88 1.78 - 5.38 K/L [facility] # Lymphs 0.88 (L) 1.32 - 3.57 K/L [facility] # Monos 0.56 0.30 - 0.82 K/L [facility] # Eos 0.25 0.04 - 0.54 K/L [facility] # Baso 0.03 0.01 - 0.08 K/L [facility] Immature Granulocytes-Relative 0 0 - 1 % [facility] Specimen Blood Performing Organization Address City/State/Zipcode Phone Number [address] [address] CENTER Lipase (03/01/2018 10:29 AM CDT) Lipase 61 8 - 78 U/L [facility] Specimen Blood Performing Organization Address City/[facility] Phone Number [address] [address] [facility] Amylase (03/01/2018 10:29 AM CDT) Amylase 113 25 - 125 U/L [facility] Specimen Blood Performing Organization Address City/[facility]/Zipcode Phone Number [address] [address] [facility] [place] Hepatic function panel (03/01/2018 10:29 AM CDT) Protein, Total 6.8 6.0 - 8.3 gm/dL [facility] Albumin 3.5 3.5 - 5.0 g/dL [facility] Total Bilirubin 0.4 0.2 - 1.2 mg/dL [facility] Bilirubin, Direct 0.2 0.1 - 0.5 mg/dL [facility] Alkaline Phosphatase 78 40 - 150 U/L [facility] AST 20 5 - 34 U/L [facility] ALT 21 6 - 55 U/L [facility] Specimen Blood Performing Organization Address City/[facility] Phone Number [facility] [address] [place] [address] [phone] [facility] Basic Metabolic Panel (03/01/2018 10:29 AM CDT) Sodium 136 136 - 145 meq/L [facility] Potassium 4.0 3.5 - 5.1 meq/L [facility] Chloride 108 (H) 98 - 107 meq/L [facility] CO2 15 (L) 22 - 29 meq/L [facility] BUN 80 (H) 7 - 21 mg/dL [facility] Creatinine 4.79 (H) 0.57 - 1.25 mg/dL [facility] Glucose 84 70 - 105 mg/dL [facility] Calcium 8.9 8.4 - 10.2 mg/dL [facility] EGFR 12Comment: ESTIMATED GFR IS mL/min/1.[address] [facility] NOT ACCURATE CREATININE [facility] CENTER CLEARANCE IN PREDICTING GLOMERULAR FILTRATION RATE. ESTIMATED GFR IS NOT APPLICABLE FOR DIALYSIS PATIENTS. Specimen Blood Performing Organization Address City/[facility] Phone Number [facility] [address] [place] [address] [phone] [facility] ECG 12 lead (03/01/2018 10:20 AM CDT) Specimen Narrative Performed At Ventricular Rate 62 BPM [facility] MUSE Atrial Rate 62 BPM P-R Interval 178 ms QRS Duration 96 ms Q-T Interval 452 ms QTC Calculation(Bazett) 458 ms P [place] 66 degrees R [place] -24 degrees T [place] 140 degrees Normal sinus rhythm Possible Left [...] 452 ms QTC Calculation(Bazett) 458 ms P [place] 66 degrees R [place] -24 degrees T [place] 140 degrees Normal sinus rhythm Possible Left [...] Address City/State/Zipcode Phone Number GE MUSE after 01/10/2018 Insurance Payer Benefit Plan / Group Subscriber ID Type Phone Address MEDICARE MEDICARE A B xxxxxxxxxx Medicare MEDICAID MEDICAID [facility] xxxxxxxxx Medicaid Advance Directives For more information, please contact:[address] [phone] Code Status Date Activated Date Inactivated Comments [...]
[2019-01-11 11:34] LABS: Absolute Lymphocytes (CBC) 0.2 K/uL (0.7-4.9); Basophils % 0.2 % (0-1.3); Eosinophils % 0.2 % (0-4.4); Hematocrit 36.1 % (39.6-49.0); Lymphocytes % 3.6 % (15.3-44.8); MPV 8.2 fL (7.6-11.3); RBC Red Blood Cell Count 3.64 M/uL (4.33-5.43)
[2019-01-11 11:38] LABS: Protime INR 1.11
[2019-01-11 11:54] LABS: Albumin 3.8 g/dL (3.4-5.0); Bilirubin Direct 0.3 mg/dL (0-0.2); Bilirubin Total 0.7 mg/dL (0.2-1.0); CKMB Creatine Kinase MB 3.2 ng/mL (0.3-3.6); Potassium 4.2 mmol/L (3.5-5.1)
[2019-01-11] MEDS ORDERED: ACETAMINOPHEN 500 MG TAB ONE (11:57)
[2019-01-11] MEDS ORDERED: D50W 25 GM/50 ML SYRINGE IV ONE ×6 (11:58→22:03)
[2019-01-11] MEDS ORDERED: NA CHLORIDE 0.9% 500 ML ONE (11:58)
[2019-01-11] MEDS ORDERED: METRONIDAZOLE 500mg IVPB 500 MG/100 ML BAG IV ONE (11:58)
[2019-01-11] MEDS ORDERED: CEFTRIAXONE/SWI 1gm 1 GM/10 ML SYR ONE (11:58)
[2019-01-11] MEDS ORDERED: ONDANSETRON 4 MG/2 ML VIAL ONE (12:09)
[2019-01-11] MEDS ORDERED: MORPHINE 4 MG/ML SYR ONE ×3 (12:09→17:58)
--- NOTE | 2019-01-11 12:15 | RAD REPORT ---
EXAM DESCRIPTION: RAD - Chest Single View - 01/11/2019 11:59 am CLINICAL HISTORY: Cough, abdominal pain, chills COMPARISON: January 08 TECHNIQUE: AP portable chest image was obtained 1155 hours . FINDINGS: Lung volumes are similar to comparison. Bilateral lung base pleural and parenchymal opacif ication noted and unchanged. Pleural effusion pattern is stable. Right-sided dialysis catheter is in place. Mid and upper lung miner are similar to comparison as well. Heart size is upper normal. No pn eumothorax. No acute bony abnormality seen. No acute aortic findings suspected. IMPRESSION: Bilateral lung base pleural effusions worse on the right. Lung base atelectasis present. Left lung base opacification could be atelectasis or infiltrate.
--- NOTE | 2019-01-11 13:10 | RAD REPORT ---
EXAM DESCRIPTION: CT - Abdomen Pelvis Wo Contrast - 01/11/2019 1:02 pm CLINICAL HISTORY: Abdominal pain. ABD PAIN COMPARISON: Abdomen Pelvis Wo Contrast dated 01/03/2019 TECHNIQUE: CT imaging of the abdomen and pelvis was performed without contrast. Solid organ and vasc ular assessment is limited due to lack of IV contrast. All CT scans are performed using dose optimization technique as appropriate and may include automated exposure control or mA/KV adjustment according to patient size. FINDINGS: Small bilateral pleural effusions are present, slightly larger on the right. Airspace opac ity in both lung bases likely represents atelectasis. No aggressive liver mass is seen. Gallbladder appears mildly distended. The spleen, pancreas, adrenal glands and kidneys are within normal limits. Mild ascites is noted. No free air or abscess. Mild anasarca. The appendix is normal. The osseous structures are within normal limits. IMPRESSION: Mild fluid retention pattern is observed with bilateral pleural effusions, mild ascites and anasarca is seen. A limited non-contrast examination was performed as detailed.
[2019-01-11 13:38] LABS: Blood Morphology Comment NOT SEEN (NOT SEEN); Platelet Estimate ADEQ; Urine White Blood Cell Casts OK
--- NOTE | 2019-01-11 14:08 | EDPHYS ---
Physician Documentation [facility] Name: Blaise Quarles Age: 78 yrs Sex: Male : 1940 Arrival Date: 01/11/2019 Time: 10:39 Bed 18 Private MD: ED Physician Ankur Forrest HPI: 01/11 13:00 This 78 yrs old Male presents to ER via Ambulatory with complaints of Chills. ma2 13:00 The patient presents with abdominal pain that is diffuse. Onset: The symptoms/episode ma2 began/occurred gradually. Associated signs and symptoms: Pertinent positives: anorexia, Pertinent negatives: anorexia, constipation, dysuria, fever, shortness of breath, vomiting blood. The symptoms are described as intermittent. Severity of pain: At its worst the pain was moderate in the emergency department the pain is unchanged. The patient has experienced similar episodes in the past. Historical: - Allergies: 10:49 Aspirin; sg - PMHx: 10:49 Anemia; CAD; cardiomegaly; CHF; chronic renal disease; Cirrhosis; Dialysis; High sg Cholesterol; Hypertension; Myocardial infarction; pleural effusion; pulmonary nodule; Visually impared; 11:00 Diabetes - NIDDM; aa5 - Immunization history:: Adult Immunizations up to date. - Social history:: Smoking status: Patient/guardian denies using tobacco, Patient/guardian denies using alcohol, street drugs, The patient lives with family. - Ebola Screening: : Patient negative for fever greater than or equal to 101.5 degrees Fahrenheit, and additional compatible Ebola Virus Disease symptoms Patient denies exposure to infectious person Patient denies travel to an Ebola-affected area in the 21 days before illness onset No symptoms or risks identified at this time. - Family history:: not pertinent. ROS: 13:00 Constitutional: Negative for fever, chills, and weight loss. ma2 13:00 All other systems are negative. Exam: 13:00 Constitutional: This is a well developed, well nourished patient who is awake, alert, ma2 and in no acute distress. Chest/axilla: Normal chest wall appearance and motion. Nontender with no deformity. No lesions are appreciated. Cardiovascular: Regular rate and rhythm with a normal S1 and S2. No gallops, murmurs, or rubs. Normal PMI, no JVD. No pulse deficits. Respiratory: Lungs have equal breath sounds bilaterally, clear to auscultation and percussion. No rales, rhonchi or wheezes noted. No increased work of breathing, no retractions or nasal flaring. Abdomen/GI: Soft, non-tender, with normal bowel sounds. No distension or tympany. No guarding or rebound. No evidence of tenderness throughout. MS/ Extremity: Pulses equal, no cyanosis. Neurovascular intact. Full, normal range of motion. Neuro: Awake and alert, GCS 15, oriented to person, place, time, and situation. Cranial nerves II-XII grossly intact. Motor strength 5/5 in all extremities. Sensory grossly intact. Cerebellar exam normal. Normal gait. Vital Signs: 10:49 Pulse 77; Temp 97.9; Pulse Ox 96% on 3 lpm NC; Weight 64.41 kg; Height 5 ft. 6 in. sg (167.64 cm); Pain 2/10; 11:02 BP 173 / 108; Pulse 73; Resp 20; Pulse Ox 95% on 3 lpm NC; aa5 12:01 BP 162 / 64; Pulse 72; Resp 20; Temp 98.1(TE); Pulse Ox 98% on R/A; mh5 13:00 BP 168 / 71; Pulse 66; Resp 13; Temp 97.9(O); Pulse Ox 97% on R/A; aa5 14:24 BP 166 / 69; Pulse 67; Resp 16 S; Temp 97.7(O); Pulse Ox 98% on 2 lpm NC; Pain 6/10; aa5 15:11 BP 173 / 72; Pulse 72; Resp 18 S; Pulse Ox 98% on 3 lpm NC; aa5 16:10 BP 160 / 68; Pulse 68; Resp 16 S; Temp 97.7(O); Pulse Ox 97% on 3 lpm NC; aa5 17:10 BP 157 / 57; Pulse 70; Resp 16 S; Pulse Ox 97% on 3 lpm NC; aa5 18:20 BP 178 / 71; Pulse 71; Resp 16 S; Temp 97.9(A); Pulse Ox 99% on 3 lpm NC; aa5 19:48 BP 179 / 68; Pulse 65; Resp 14 S; Pulse Ox 95% on R/A; jd3 20:34 BP 172 / 68; Pulse 70; Resp 16 S; Pulse Ox 95% on R/A; jd3 21:33 BP 168 / 68; Pulse 68; Resp 16 S; Pulse Ox 95% on R/A; jd3 10:49 Body Mass Index 22.92 (64.41 kg, 167.64 cm) sg MDM: 10:51 Patient medically screened. [facility] 13:00 Differential diagnosis: gastritis, gastroesophageal reflux disease, Hepatitis, ma2 Irritable bowel syndrome. Data reviewed: vital signs, nurses notes. Counseling: I had a detailed discussion with the patient and/or guardian regarding: the historical points, exam findings, and any diagnostic results supporting the discharge/admit diagnosis, the presence of at least one elevated blood pressure reading (>120/80) during this emergency department visit. 14:07 Response to treatment: the patient's symptoms have resolved after treatment. ED course: anh has ? cap on cxr. 18:09 ED course: discussed with dr. zamarripa. [facility] 01/11 11:10 Order name: Basic Metabolic Panel [facility] 01/11 11:10 Order name: CBC with Diff [facility] 01/11 11:10 Order name: Creatinine for Radiology [facility] 01/11 11:10 Order name: Hepatic Function [facility] 01/11 11:10 Order name: Lipase [facility] 01/11 11:10 Order name: Blood Culture Adult (2) [facility] 01/11 11:10 Order name: Ckmb [facility] 01/11 11:10 Order name: CPK [facility] 01/11 11:10 Order name: Lactate [facility] 01/11 11:10 Order name: Procalcitonin [facility] 01/11 11:10 Order name: Protime (+inr); Complete Time: 12:23 [facility] 01/11 11:10 Order name: Ptt, Activated; Complete Time: 12:23 [facility] 01/11 11:10 Order name: Troponin (emerg Dept Use Only); Complete Time: 12:23 [facility] 01/11 11:12 Order name: Basic Metabolic Panel; Complete Time: 12:23 [facility] 01/11 11:12 Order name: CBC with Automated Diff; Complete Time: 13:44 [facility] 01/11 11:12 Order name: Creatinine (Radiology Only); Complete Time: 12:23 [facility] 01/11 11:12 Order name: Liver (Hepatic) Function; Complete Time: 12:23 [facility] 01/11 11:12 Order name: Lipase; Complete Time: 12:23 [facility] 01/11 11:13 Order name: Blood Culture [facility] 01/11 11:13 Order name: CKMB Creatine Kinase MB; Complete Time: 12:23 [facility] 01/11 11:13 Order name: Creatine Phosphokinase; Complete Time: 12:23 [facility] 01/11 11:13 Order name: Lactate; Complete Time: 12:23 [facility] 01/11 11:13 Order name: Procalcitonin; Complete Time: 13:44 [facility] 01/11 11:51 Order name: Glucose, Ancillary Testing; Complete Time: 12:23 [facility] 01/11 13:38 Order name: CBC Smear Scan; Complete Time: 13:44 [facility] 01/11 18:35 Order name: Urine Dipstick--Ancillary (enter results) [facility] 01/11 18:40 Order name: Glucose, Ancillary Testing [facility] 01/11 18:40 Order name: Glucose, Ancillary Testing [facility] 01/11 18:40 Order name: Glucose, Ancillary Testing [facility] 01/11 11:10 Order name: CT Abd/Pelvis - Without Contrast; Complete Time: 13:44 [facility] 01/11 11:10 Order name: Chest Single View XRAY; Complete Time: 12:23 [facility] 01/11 18:40 Order name: Glucose, Ancillary Testing [facility] 01/11 18:40 Order name: Glucose, Ancillary Testing [facility] 01/11 18:40 Order name: Glucose, Ancillary Testing [facility] 01/11 18:40 Order name: Glucose, Ancillary Testing [facility] 01/11 19:19 Order name: Urine Dipstick-Ancillary [facility] 01/11 23:04 Order name: Glucose, Ancillary Testing [facility] 01/11 23:04 Order name: Glucose, Ancillary Testing [facility] 01/11 23:04 Order name: Glucose, Ancillary Testing [facility] 01/11 23:04 Order name: Glucose, Ancillary Testing [facility] 01/12 00:10 Order name: Glucose, Ancillary Testing [facility] 01/12 01:37 Order name: Glucose, Ancillary Testing [facility] 01/12 02:38 Order name: Glucose, Ancillary Testing [facility] 01/12 04:44 Order name: Glucose, Ancillary Testing [facility] 01/12 05:53 Order name: Comprehensive Metabolic Panel [facility] 01/12 05:56 Order name: CBC with Automated Diff [facility] 01/12 06:46 Order name: Glucose, Ancillary Testing [facility] 01/11 11:10 Order name: IV Saline Lock; Complete Time: 11: ma2 01/11 11:10 Order name: Labs collected and sent; Complete Time: 11:22 ma2 01/11 11:10 Order name: Accucheck; Complete Time: 11:21 ma2 01/11 11:10 Order name: Cardiac monitoring; Complete Time: 11: ma2 01/11 11:10 Order name: EKG - Nurse/Tech; Complete Time: 12:10 ma2 01/11 11:10 Order name: IV Saline Lock - Large Bore; Complete Time: 11: ma2 01/11 11:10 Order name: O2 Per Protocol; Complete Time: : ma2 01/11 11:10 Order name: O2 Sat Monitoring; Complete Time: : ma2 01/11 11:27 Order name: EKG Electrocardiogram; Complete Time: 11:28 [facility] 01/11 17:15 Order name: Diet Regular; Complete Time: 17:16 aa5 Administered Medications: 11:30 Drug: NS 0.9% 500 ml Route: IV; Rate: bolus; Site: left forearm; aa5 12:00 Follow up: IV Status: Completed infusion; IV Intake: 500ml aa5 11:39 Drug: D50W 50 ml Route: IVP; Site: right antecubital; aa5 12:00 Follow up: Response: No adverse reaction aa5 11:55 Not Given (Patient Refused): Acetaminophen 1000 mg PO once aa5 11:55 Drug: morphine 4 mg Route: IVP; Site: right antecubital; aa5 12:15 Follow up: Response: No adverse reaction; Pain is decreased aa5 11:55 Drug: Zofran 4 mg Route: IVP; Site: right antecubital; aa5 12:15 Follow up: Response: No adverse reaction aa5 12:11 Not Given (Physician Discretion): NS 0.9% 500 ml IV at 1 bolus Per protocol; 1000 mL aa5 bolus 12:21 Drug: Rocephin 1 grams Route: IV; Rate: calculated rate; Site: right antecubital; aa5 13:15 Drug: Flagyl 500 mg Volume: 100 ml; Route: IVPB; Rate: 200 ml/hr; Infused Over: 30 aa5 mins; Site: right antecubital; 13:49 Drug: morphine 4 mg Route: IVP; Site: right antecubital; aa5 14:20 Follow up: Response: No adverse reaction; Pain is decreased aa5 14:40 Drug: D50W 50 ml Route: IVP; Site: right antecubital; aa5 15:11 Follow up: Response: FSBG increased aa5 14:50 Drug: AZITHromycin 500 mg Route: PO; aa5 16:55 Follow up: Response: No adverse reaction aa5 17:00 Drug: D50W 50 ml Route: IVP; Site: right antecubital; aa5 17:34 Follow up: Response: FSBG increased aa5 17:00 Drug: D5-1/2 NS 1000 ml Route: IV; Rate: 50 ml/hr; Site: right antecubital; aa5 21:36 Follow up: Response: No adverse reaction; IV Status: Order to discontinue infusion jd3 17:45 Drug: morphine 4 mg Route: IVP; Site: right antecubital; aa5 18:00 Follow up: Response: No adverse reaction aa5 19:38 Drug: D50W 50 ml Route: IVP; Site: right antecubital; jd3 20:34 Follow up: Response: No adverse reaction; Blood sugar is elevated jd3 Point of Care Testing: Blood Glucose: 10:54 Blood Glucose: 60 mg/dL; mh5 14:40 Blood Glucose: 38 mg/dL; aa5 15:11 Blood Glucose: 116 mg/dL; aa5 15:40 Blood Glucose: 104 mg/dL; mh5 16:10 Blood Glucose: 81 mg/dL; aa5 16:55 Blood Glucose: 56 mg/dL; aa5 17:34 Blood Glucose: 132 mg/dL; aa5 18:19 Blood Glucose: 82 mg/dL; mh5 19:27 Blood Glucose: 47 mg/dL; jd3 20:34 Blood Glucose: 74 mg/dL; jd3 21:33 Blood Glucose: 43 mg/dL; jd3 16:10 MD notified of FSBG and trending aa5 Ranges: Critical Glucose Levels:Adult <50 mg/dl or >400 mg/dl <40 mg/dl or >180 mg/dl Disposition: 01/11/19 18:08 Hospitalization ordered by Ivon Zamarripa for Observation. Preliminary diagnosis is Hypoglycemia, unspecified. - Bed requested for Intensive Care Unit. - Status is Observation. hb - Condition is Stable. - Problem is new. - Symptoms have improved. UTI on Admission? No Signatures: Dispatcher [employer] EDOR Tashi Luna, RN HUONG sg Naima Rojas RN RN Mayo Oconnor em1 Nataly Hercules, RN RN aa5 Mena Doty RN RN Mady Yo RN RN Matt Vides RN RN jd3 Ankur Forrest MD MD ma2 Corrections: (The following items were deleted from the chart) 15:17 10:49 PMHx: Diabetes - IDDM; sg aa5 15:37 11:10 Urine Dipstick-Ancillary ordered. ma2 ms 15:58 11:14 UA MICROSCOPIC+U.LAB.BRZ ordered. EDOR EDOR 18:08 14:08 01/11/2019 14:08 Discharged to Home. Impression: Chills (without fever). ma2 Condition is Stable. Forms are Medication Reconciliation Form, Thank You Letter, Antibiotic Education, Prescription Opioid Use. Follow up: Private Physician; When: Tomorrow; Reason: Continuance of care. ma2 18:54 18:08 Hospitalization Ordered by Ivon Zamarripa MD for Observation. Preliminary em1 diagnosis is Hypoglycemia, unspecified. Bed requested for Telemetry/MedSurg (observation). Status is Observation. Condition is Stable. Problem is new. Symptoms have improved. UTI on Admission? No. ma2 21:09 18:54 01/11/2019 18:08 Hospitalization Ordered by Ivon Zamarripa MD for Observation. bb Preliminary diagnosis is Hypoglycemia, unspecified. Bed requested for Telemetry/MedSurg (observation). Status is Observation. Condition is Stable. Problem is new. Symptoms have improved. UTI on Admission? No. em1 01/12 06:31 07 21:09 01/11/2019 18:08 Hospitalization Ordered by Ivon Zamarripa MD for cg Observation. Preliminary diagnosis is Hypoglycemia, unspecified. Bed requested for [facility]UST ER HOLD. Status is Observation. Condition is Stable. Problem is new. Symptoms have improved. UTI on Admission? No. bb 01/12 08:07 06:31 01/11/2019 18:08 Hospitalization Ordered by Ivon Zamarripa MD for Observation. hb Preliminary diagnosis is Hypoglycemia, unspecified. Bed requested for Intensive Care Unit. Status is Observation. Condition is Stable. Problem is new. Symptoms have improved. UTI on Admission? No. cg
--- NOTE | 2019-01-11 14:08 | ER ---
Nurse's Notes [facility] Name: Blaise Quarles Age: 78 yrs Sex: Male : 1940 Arrival Date: 01/11/2019 Time: 10:39 Bed 18 Private MD: Diagnosis: Hypoglycemia, unspecified Presentation: 01/11 10:47 Presenting complaint: states: He was at dialysis, finished his treatment but got sg the chills and just keeps saying his stomach hurts and that he is freezing cold, denies fever/n/v/diarrhea, reports this AM that the FSBG was 81. Transition of care: patient was not received from another setting of care. Onset of symptoms was January 11, 2019. Risk Assessment: Do you want to hurt yourself or someone else? Patient reports no desire to harm self or others. Initial Sepsis Screen: Does the patient meet any 2 criteria? No. Patient's initial sepsis screen is negative. Does the patient have a suspected source of infection? Yes: Acute abdominal pain. Care prior to arrival: None. 10:47 Method Of Arrival: Ambulatory sg 10:47 Acuity: SARATH 3 sg Historical: - Allergies: 10:49 Aspirin; sg - PMHx: 10:49 Anemia; CAD; cardiomegaly; CHF; chronic renal disease; Cirrhosis; Dialysis; High sg Cholesterol; Hypertension; Myocardial infarction; pleural effusion; pulmonary nodule; Visually impared; 11:00 Diabetes - NIDDM; aa5 - Immunization history:: Adult Immunizations up to date. - Social history:: Smoking status: Patient/guardian denies using tobacco, Patient/guardian denies using alcohol, street drugs, The patient lives with family. - Ebola Screening: : Patient negative for fever greater than or equal to 101.5 degrees Fahrenheit, and additional compatible Ebola Virus Disease symptoms Patient denies exposure to infectious person Patient denies travel to an Ebola-affected area in the 21 days before illness onset No symptoms or risks identified at this time. - Family history:: not pertinent. Screenin:00 Abuse screen: Denies threats or abuse. Nutritional screening: No deficits noted. aa5 Tuberculosis screening: No symptoms or risk factors identified. Fall Risk None identified. Assessment: 11:00 General: Appears uncomfortable, Behavior is calm, cooperative, Pt noted to be shaking, aa5 pt states "I am cold, I am so cold" . Pain: Complains of pain in right upper quadrant, left upper quadrant, right lower quadrant and left lower quadrant Pain currently is 10 out of 10 on a pain scale. Quality of pain is described as Pt states "it hurts" Pain began this morning. Neuro: Level of Consciousness is awake, alert, obeys commands, Oriented to person, place, time, situation. Cardiovascular: Heart tones S1 S2 present Dialysis catheter noted to right side of chest . Rhythm is regular. Respiratory: Airway is patent Respiratory effort is even, unlabored, Respiratory pattern is regular, symmetrical. GI: Abdomen is round non-distended, Bowel sounds present X 4 quads. Abd is soft X 4 quads Abdomen is tender to palpation in right upper quadrant, left upper quadrant, right lower quadrant and left lower quadrant Patient currently denies diarrhea, nausea, vomiting. : Reports he only makes a small amount of urine Denies burning with urination. EENT: No signs and/or symptoms were reported regarding the EENT system. Derm: Skin is pink, warm \\T\\ dry. Musculoskeletal: Range of motion: intact in all extremities. 11:00 Reassessment: Pt states "I didn't have dialysis today because I was just shaking so aa5 bad, I am just really cold" . 11:20 Reassessment: Patient is alert, oriented x 3, equal unlabored respirations, skin aa5 warm/dry/pink. Pt notified of wait time for lab results. . 11:58 Reassessment: CRITICAL LAB: CREA 5.57. Notified RN and provider. ca1 12:15 Reassessment: Patient is alert, oriented x 3, equal unlabored respirations, skin aa5 warm/dry/pink. Patient states feeling better. No shaking noted at this time, pt appears comfortable. Pt states "I am not cold anymore and I am more comfortable now" . Pain: Pain currently is 8 out of 10 on a pain scale. 12:30 Reassessment: Pt states he is able to tolerate CT scan at this time, CT was notified. . aa5 13:45 Reassessment: Patient is alert, oriented x 3, equal unlabored respirations, skin aa5 warm/dry/pink. Pt states "the pain is still there, can I get another morphine shot?". Pt rates pain 8/10 on a pain scale. MD was notified of pt's request. . 14:20 Reassessment: Patient is alert, oriented x 3, equal unlabored respirations, skin aa5 warm/dry/pink. Patient states feeling better. Pain: Pain currently is 6 out of 10 on a pain scale. 14:40 Reassessment: Pt given orange juice and peanut butter and crackers, pt tolerating well. aa5 . 14:40 Reassessment: Patient is alert, oriented x 3, equal unlabored respirations, skin aa5 warm/dry/pink. 14:40 Reassessment: Pt states "I don't take insulin I only take a little pill but not all the aa5 time because my sugar is usually low if I take it". . 15:11 Reassessment: Patient is alert, oriented x 3, equal unlabored respirations, skin aa5 warm/dry/pink. Pt given food tray. . 15:40 Reassessment: Patient is alert, oriented x 3, equal unlabored respirations, skin aa5 warm/dry/pink. Pt finished eating, pt ate 100% of food tray. . 16:10 Reassessment: Patient is alert, oriented x 3, equal unlabored respirations, skin aa5 warm/dry/pink. MD notified of FSBG 81, MD states to continue to monitor in 30 minutes. Pt and pt's family notified of wait time. . 16:55 Reassessment: Patient is alert, oriented x 3, equal unlabored respirations, skin aa5 warm/dry/pink. FSBG 56, pt given orange juice at this time. . 17:25 Reassessment: Patient is alert, oriented x 3, equal unlabored respirations, skin aa5 warm/dry/pink. Pt given food tray, pt tolerating well. . 17:30 Reassessment: Patient is alert, oriented x 3, equal unlabored respirations, skin aa5 warm/dry/pink. Pt appears uncomfortable, pt states "I just don't feel good and I am anxious". pt states "I need an injection to make me feel better". Pt reports pain is 10/10 on a pain scale. MD was notified of pt's request. . 17:45 Reassessment: Patient is alert, oriented x 3, equal unlabored respirations, skin aa5 warm/dry/pink. Pt finished eating. . 18:20 Reassessment: Patient is alert, oriented x 3, equal unlabored respirations, skin aa5 warm/dry/pink. Patient states feeling better. 18:20 Pain: Pain currently is 8 out of 10 on a pain scale. aa5 19:44 Reassessment: Patient is alert, oriented x 3, equal unlabored respirations, skin jd3 warm/dry/pink. Dr. Espinoza called about recurring low, blood sugar levels. Dr. Espinoza reported that he will change the admission to ICU. Neuro: Level of Consciousness is awake, alert, obeys commands, Oriented to person, place, time, situation. Cardiovascular: Denies chest pain, Rhythm is regular. Respiratory: Airway is patent Respiratory effort is even, unlabored, Respiratory pattern is regular, symmetrical. 20:34 Reassessment: Patient appears in no apparent distress at this time. Patient and/or [facility] family updated on plan of care and expected duration. Pain level reassessed. Patient is alert, oriented x 3, equal unlabored respirations, skin warm/dry/pink. PO food given with juice, sandwich, chips, and crackers. 21:34 Reassessment: Dr. Espinoza called for low blood sugar. no answer. [facility] 21:40 Reassessment: Dr. Espinoza notified of low blood sugar. new orders received. orders in [facility] jd3 in [facility]. 22:11 Reassessment: Patient appears in no apparent distress at this time. Patient and/or j family updated on plan of care and expected duration. Pain level reassessed. Patient is alert, oriented x 3, equal unlabored respirations, skin warm/dry/pink. charting continued in [facility]. Vital Signs: 10:49 Pulse 77; Temp 97.9; Pulse Ox 96% on 3 lpm NC; Weight 64.41 kg; Height 5 ft. 6 in. (167.64 cm); Pain 2/10; 11:02 BP 173 / 108; Pulse 73; Resp 20; Pulse Ox 95% on 3 lpm NC; aa5 12:01 BP 162 / 64; Pulse 72; Resp 20; Temp 98.1(TE); Pulse Ox 98% on R/A; mh5 13:00 BP 168 / 71; Pulse 66; Resp 13; Temp 97.9(O); Pulse Ox 97% on R/A; aa5 14:24 BP 166 / 69; Pulse 67; Resp 16 S; Temp 97.7(O); Pulse Ox 98% on 2 lpm NC; Pain 6/10; aa5 15:11 BP 173 / 72; Pulse 72; Resp 18 S; Pulse Ox 98% on 3 lpm NC; aa5 16:10 BP 160 / 68; Pulse 68; Resp 16 S; Temp 97.7(O); Pulse Ox 97% on 3 lpm NC; aa5 17:10 BP 157 / 57; Pulse 70; Resp 16 S; Pulse Ox 97% on 3 lpm NC; aa5 18:20 BP 178 / 71; Pulse 71; Resp 16 S; Temp 97.9(A); Pulse Ox 99% on 3 lpm NC; aa5 19:48 BP 179 / 68; Pulse 65; Resp 14 S; Pulse Ox 95% on R/A; jd3 20:34 BP 172 / 68; Pulse 70; Resp 16 S; Pulse Ox 95% on R/A; jd3 21:33 BP 168 / 68; Pulse 68; Resp 16 S; Pulse Ox 95% on R/A; jd3 10:49 Body Mass Index 22.92 (64.41 kg, 167.64 cm) ED Course: 10:39 Patient arrived in ED. mr 10:49 Triage completed. sg 10:49 Arm band placed on. sg 10:51 Ankur Forrest MD is Attending Physician. ma2 10:54 Patient has correct armband on for positive identification. Bed in low position. Call 5 light in reach. Side rails up X2. Adult w/ patient. Warm blanket given. Pulse ox on. NIBP on. 10:55 Nataly Hercules, HUONG is Primary Nurse. aa5 11:33 Note: got pt to ct, but pt refusing to lay down and refusing to get scan. jg6 11:40 Initial lab(s) drawn, by ED staff, sent to lab. Inserted saline lock: 20 gauge in right mh5 antecubital area, using aseptic technique. Blood collected. 11:58 X-ray completed. Portable x-ray completed in exam room. Patient tolerated procedure jb2 well. 12:00 Chest Single View XRAY In Process Unspecified. EDMS 12:10 EKG done, by fingernail technician. reviewed by Ankur Forrest MD. sm3 13:02 CT Abd/Pelvis - Without Contrast In Process Unspecified. EDMS 13:03 CT completed. Patient tolerated procedure well. Patient moved back from CT. em2 18:08 Ivon Mckeon MD is Hospitalizing Provider. ma2 19:00 Report given to HUONG Gutierrez. aa5 22:19 No provider procedures requiring assistance completed. Patient admitted, IV remains in jd3 place. Administered Medications: 11:30 Drug: NS 0.9% 500 ml Route: IV; Rate: bolus; Site: left forearm; aa5 12:00 Follow up: IV Status: Completed infusion; IV Intake: 500ml aa5 11:39 Drug: D50W 50 ml Route: IVP; Site: right antecubital; aa5 12:00 Follow up: Response: No adverse reaction aa5 11:55 Not Given (Patient Refused): Acetaminophen 1000 mg PO once aa5 11:55 Drug: morphine 4 mg Route: IVP; Site: right antecubital; aa5 12:15 Follow up: Response: No adverse reaction; Pain is decreased aa5 11:55 Drug: Zofran 4 mg Route: IVP; Site: right antecubital; aa5 12:15 Follow up: Response: No adverse reaction aa5 12:11 Not Given (Physician Discretion): NS 0.9% 500 ml IV at 1 bolus Per protocol; 1000 mL aa5 bolus 12:21 Drug: Rocephin 1 grams Route: IV; Rate: calculated rate; Site: right antecubital; aa5 13:15 Drug: Flagyl 500 mg Volume: 100 ml; Route: IVPB; Rate: 200 ml/hr; Infused Over: 30 aa5 mins; Site: right antecubital; 13:49 Drug: morphine 4 mg Route: IVP; Site: right antecubital; aa5 14:20 Follow up: Response: No adverse reaction; Pain is decreased aa5 14:40 Drug: D50W 50 ml Route: IVP; Site: right antecubital; aa5 15:11 Follow up: Response: FSBG increased aa5 14:50 Drug: AZITHromycin 500 mg Route: PO; aa5 16:55 Follow up: Response: No adverse reaction aa5 17:00 Drug: D50W 50 ml Route: IVP; Site: right antecubital; aa5 17:34 Follow up: Response: FSBG increased aa5 17:00 Drug: D5-1/2 NS 1000 ml Route: IV; Rate: 50 ml/hr; Site: right antecubital; aa5 21:36 Follow up: Response: No adverse reaction; IV Status: Order to discontinue infusion jd3 17:45 Drug: morphine 4 mg Route: IVP; Site: right antecubital; aa5 18:00 Follow up: Response: No adverse reaction aa5 19:38 Drug: D50W 50 ml Route: IVP; Site: right antecubital; jd3 20:34 Follow up: Response: No adverse reaction; Blood sugar is elevated jd3 Point of Care Testing: Blood Glucose: 10:54 Blood Glucose: 60 mg/dL; mh5 14:40 Blood Glucose: 38 mg/dL; aa5 15:11 Blood Glucose: 116 mg/dL; aa5 15:40 Blood Glucose: 104 mg/dL; mh5 16:10 Blood Glucose: 81 mg/dL; aa5 16:55 Blood Glucose: 56 mg/dL; aa5 17:34 Blood Glucose: 132 mg/dL; aa5 18:19 Blood Glucose: 82 mg/dL; mh5 19:27 Blood Glucose: 47 mg/dL; jd3 20:34 Blood Glucose: 74 mg/dL; jd3 21:33 Blood Glucose: 43 mg/dL; jd3 16:10 MD notified of FSBG and trending aa5 Ranges: Intake: 12:00 IV: 500ml; Total: 500ml. aa5 Outcome: 14:08 Discharge ordered by MD. ma2 18:08 Decision to Hospitalize by Provider. ma2 22:19 Admitted to ER Hold. Please see [facility] for further documentation. jd3 22:19 Condition: stable 22:19 Instructed on the need for admit, Demonstrated understanding of instructions. 01/12 08:07 Patient left the ED. Signatures: Dispatcher [employer] EDMS Tashi Luna, RN HUONG Tyesha Amaya Jesse jb2 Nataly Hercules RN RN Brayan Perez2 Mady Yo RN RN Keara Palmer Matt Adam RN RN jd3 Ankur Forrest MD MD ma2 Xochitl Clayton 3 Hedy Doty jg6 Dawn Buckner RN RN ca1 Corrections: (The following items were deleted from the chart) 01/11 14:24 13:53 BP 168 / 71; Pulse 66bpm; Resp 13bpm; Pulse Ox 97% RA; Temp 97.9F Oral; [facility] aa5 15:15 11:00 General: Appears uncomfortable, Behavior is calm, cooperative, aa5 aa5 15:17 10:49 PMHx: Diabetes - IDDM; sg aa5 17:53 17:40 morphine 4 mg IVP in right antecubital aa5 aa5 19:39 19:39 D50W 50 ml IVP in right antecubital jd3 jd3 19:40 19:27 D50W 50 ml IVP in right antecubital jd3 jd3 19:59 16:10 BP 160 / 68; Pulse 68bpm; Resp 16bpm; Spontaneous; Pulse Ox 97% 3 lpm Nasal aa5 Cannula; aa5 19:59 18:20 BP 178 / 71; Pulse 71bpm; Resp 16bpm; Spontaneous; Pulse Ox 99% 3 lpm Nasal aa5 Cannula; aa5
[2019-01-11] MEDS ORDERED: AZITHROMYCIN 250 MG TAB ONE (14:23)
[2019-01-11] MEDS ORDERED: D5 0.45 NS 1,000 ML IV ONE (17:19)
[2019-01-11 19:19] LABS: Urine Blood TRACE (NEG); Urine Glucose NEGATIVE (NEG); Urine Protein 3+ (NEG); Urine pH 8.5 (5.0-7.0)
[2019-01-11] MEDS ORDERED: D10W 250 ML IV SCH (21:13)
[2019-01-11] MEDS ORDERED: DEXTROSE 10%-WATER 500 ML IV ONE (21:40)
[2019-01-11] MEDS ORDERED: HYDROCORTISONE SUC 100 MG INJ ONE (21:55)
[2019-01-11] MEDS ORDERED: HYDROCORTISONE SUC 100 MG INJ IV ONE (22:05)
[2019-01-12] MEDS ORDERED: ACETAMINOPHEN 325 MG TABLET PO PRN (00:27)
[2019-01-12] MEDS ORDERED: D50W 25 GM/50 ML SYRINGE IV ONE ×2 (00:29→00:32)
[2019-01-12] MEDS ORDERED: ACETAMINOPHEN 325 MG TABLET ONE ×2 (00:32→06:27)
[2019-01-12] MEDS: D50W 25 GM/50 ML SYRINGE IV ONE ×2 (00:32→00:42)
[2019-01-12 05:52] LABS: Absolute Lymphocytes (CBC) 0.1 K/uL (0.7-4.9); Albumin 3.5 g/dL (3.4-5.0); Basophils % 0.2 % (0-1.3); Bilirubin Total 0.6 mg/dL (0.2-1.0); Eosinophils % 0.1 % (0-4.4); Hematocrit 32.1 % (39.6-49.0); Lymphocytes % 2.3 % (15.3-44.8); Potassium 4.7 mmol/L (3.5-5.1); Protein, Total 7.1 g/dL (6.4-8.2); RBC Red Blood Cell Count 3.23 M/uL (4.33-5.43)
[2019-01-12] MEDS ORDERED: FENTANYL CITR 100 MCG/2 ML IV ONE (06:23)
[2019-01-12] MEDS ORDERED: TRAMADOL 37.5mg/APAP 325mg PER TAB PO PRN (06:33)
--- NOTE | 2019-01-12 06:56 | EKG ---
Test Date: 2019-01-11 Test Time: 11:40:52 Consulting Networking Engineer: CHEY MEASUREMENT RESULTS: Intervals: Rate: 67 OH: 176 QRSD: 94 QT: 448 QTc: 473 [place]: P: 82 OH: 176 QRS: -10 T: 142 INTERPRETIVE STATEMENTS: Normal sinus rhythm Possible Left atrial enlargement Septal infarct, age undetermined T wave abnormality, consider lateral ischemia Abnormal ECG Compared to ECG 01/08/2019 19:05:06 Sinus bradycardia no longer present Myocardial infarct finding still present T-wave abnormality still present Possible ischemia still present Electronically Signed On 01-12-19 06:53:36 CDT by Brandon Pérez
[2019-01-12] MEDS ORDERED: clonazePAM 1 MG TAB PO SCH (09:00)
[2019-01-12] MEDS ORDERED: AMLODIPINE 10 MG TAB PO SCH (09:00)
--- NOTE | 2019-01-12 09:29 | P.HP ---
Certification for Inpatient Patient admitted to: Inpatient With expected LOS: >2 Midnights Patient will require the following post-hospital care: None Practitioner: I am a practitioner with admitting privileges, knowledge of patient current condition, hospital course, and medical plan of care. Services: Services provided to patient in accordance with Admission requirements found in Title 42 Section 412.3 of the Code of Federal Regulations Patient History Date of Service: 01/11/19 Reason for admission: Hypoglycemia History of Present Illness: Patient is a 78-year-old gentleman who has a history of end-stage renal disease who came into the hospital with hypoglycemia. Patient has been on long-acting glipizide. Patient has also lost a lot of weight the last year. He came into the hospital with low blood sugars which have been recurrent since admission. Patient will get his IV fluids changed to D 10. Will also encourage patient's diet. With change fluids after HD and meds are out of his symptoms. If we can get this downgraded, he will do so & try to get him admitted to the medical floor. Check a hemoglobin A1c as well. Allergies aspirin Allergy (Verified 01/11/18 15:42) Nausea/Vomiting No Known Allergies Allergy (Uncoded 01/18/18 10:03) Unknown Home Medications: Atorvastatin Calcium [Lipitor*] 10 mg PO BEDTIME 12/15/17 Amlodipine [Norvasc*] 1 tab PO DAILY 03/15/18 Glipizide [Glipizide ER] 1 tab PO BID 08/03/18 Tramadol HCl/Acetaminophen [Tramadol-Acetaminophn 37.5-325] 1 each PO Q8H PRN clonazePAM [Clonazepam] 1 mg PO BID 08/03/18 - Past Medical/Surgical History Has patient received pneumonia vaccine in the past: Yes Diabetic: Yes -: COPD -: CHF -: ANEMIA -: CAD -: cardiomegaly -: chronic renal disease -: cirrhosis -: diabetes -: hyperlipidemia -: ND -: HTN -: PE -: Repair of left finger fracture -: CABG -: cardiac stents -: gillian placement Psychosocial/ Personal History: He is 56 years, has 13 children, he does not work. - Family History Father Medical History: GI disease Notes: none per pt - Social History Smoking Status: Former smoker Alcohol use: No CD- Drugs: No Caffeine use: Yes Place of Residence: Home Review of Systems 10-point ROS is otherwise unremarkable Physical Examination - Vital Signs Temperature: 98.1 F Blood Pressure: 153/64 Pulse: 64 Respirations: 16 Pulse Ox (%): 97 - Physical Exam General: Alert, In no apparent distress, Oriented x3 HEENT: Atraumatic, PERRLA, Mucous membr. moist/pink, EOMI, Sclerae nonicteric Neck: Supple, 2+ carotid pulse no bruit, No LAD, Without JVD or thyroid abnormality Respiratory: Clear to auscultation bilaterally, Normal air movement Cardiovascular: Regular rate/rhythm, Normal S1 S2, No murmurs Gastrointestinal: Normal bowel sounds, Soft and benign, Non-distended, No tenderness, No rebound, No guarding Musculoskeletal: No clubbing, No swelling, No tenderness Integumentary: No rashes Neurological: Normal gait, Normal speech, Normal strength at 5/5 x4 extr, Normal tone, Sensation intact, Cranial nerves 3-12 intact, Normal affect Lymphatics: No axilla or inguinal lymphadenopathy - Studies Laboratory Data (last 24 hrs) 01/11/19 11:10: PT 13.0 H, INR 1.11, APTT 37.2 H 01/11/19 11:10: Creatinine 5.58 H* 01/11/19 11:10: WBC 5.1 D, Hgb 12.1 L, Hct 36.1 L, Plt Count 167 01/11/19 11:10: Sodium 132 L, Potassium 4.2, BUN 28 H, Creatinine 5.57 H* D, Glucose 58 L, Total Bilirubin 0.7, AST 13 L, ALT 14, Alkaline Phosphatase 84, Lipase 35 L Assessment & Plan - Problems (Diagnosis) (1) Acute metabolic encephalopathy due to hypoglycemia Current Visit: Yes Status: Acute (2) Anemia Onset Date: 02/21/16 Current Visit: No Status: Chronic Qualifiers: Anemia type: due to chronic kidney disease Chronic kidney disease stage: on chronic dialysis Qualified Code(s): N18.6 - End stage renal disease; D63.1 - Anemia in chronic kidney disease; Z99.2 - Dependence on renal dialysis (3) Aortic stenosis Onset Date: 02/03/18 Current Visit: No Status: Chronic Qualifiers: (4) CHF (congestive heart failure) Onset Date: 07/28/16 Current Visit: No Status: Chronic Qualifiers: Heart failure type: combined systolic and diastolic Heart failure chronicity: acute on chronic Qualified Code(s): I50.43 - Acute on chronic combined systolic (congestive) and diastolic (congestive) heart failure (5) End stage renal disease Onset Date: 05/27/18 Current Visit: No Status: Chronic (6) Liver cirrhosis Onset Date: 12/15/17 Current Visit: No Status: Chronic Qualifiers: (7) Status post coronary artery bypass graft Onset Date: 07/15/17 Current Visit: No Status: Chronic - Plan Plan: 1. Hemodialysis to assist in treatment of hypoglycemia 2. D10 IV fluids 3. Strict BP & BS control 4. Monitor volume status closely 5. Monitor electrolytes 6. GI/DVT prophylaxis Discharge Plan: Home Plan to discharge in: Greater than 2 days - Advance Directives Does patient have a Living Will: No Does patient have a Durable POA for Healthcare: No - Code Status/Comfort Care Code Status Assessed: Yes Code Status: Full Code Critical Care: No Time Spent Managing PTS Care (In Minutes): 45
--- NOTE | 2019-01-12 14:25 | P.SSS ---
Patient History Date of Service: 01/12/19 Reason for admission: Hypoglycemia History of Present Illness: Patient is a 78-year-old gentleman who has a history of end-stage renal disease who came into the hospital with hypoglycemia. Patient has been on long-acting glipizide. Patient has also lost a lot of weight the last year. He came into the hospital with low blood sugars which have been recurrent since admission. Patient will get his IV fluids changed to D 10. Will also encourage patient's diet. With change fluids after HD and meds are out of his symptoms. If we can get this downgraded, he will do so & try to get him admitted to the medical floor. Check a hemoglobin A1c as well. Allergies aspirin Allergy (Verified 01/11/18 15:42) Nausea/Vomiting No Known Allergies Allergy (Uncoded 01/18/18 10:03) Unknown Home Medications: Atorvastatin Calcium [Lipitor*] 10 mg PO BEDTIME 12/15/17 Amlodipine [Norvasc*] 1 tab PO DAILY 03/15/18 Glipizide [Glipizide ER] 1 tab PO BID 08/03/18 Tramadol HCl/Acetaminophen [Tramadol-Acetaminophn 37.5-325] 1 each PO Q8H PRN clonazePAM [Clonazepam] 1 mg PO BID 08/03/18 - Past Medical/Surgical History Has patient received pneumonia vaccine in the past: Yes Diabetic: Yes -: COPD -: CHF -: ANEMIA -: CAD -: cardiomegaly -: chronic renal disease -: cirrhosis -: diabetes -: hyperlipidemia -: [place] -: HTN -: PE -: Repair of left finger fracture -: CABG -: cardiac stents -: gillian placement Psychosocial/ Personal History: He is 56 years, has 13 children, he does not work. - Family History Father -: GI disease Notes: none per pt - Social History Smoking Status: Former smoker Alcohol use: No CD- Drugs: No Caffeine use: Yes Place of Residence: Home Review of Systems 10-point ROS is otherwise unremarkable Physical Examination - Vital Signs Temperature: 98.1 F Blood Pressure: 179/70 Pulse: 77 Respirations: 16 Pulse Ox (%): 93 - Physical Exam General: Alert, In no apparent distress HEENT: Atraumatic, PERRLA, Mucous membr. moist/pink, EOMI, Sclerae nonicteric Neck: Supple, 2+ carotid pulse no bruit, No LAD, Without JVD or thyroid abnormality Respiratory: Clear to auscultation bilaterally, Normal air movement Cardiovascular: Regular rate/rhythm, Normal S1 S2 Gastrointestinal: Normal bowel sounds, No tenderness Musculoskeletal: No tenderness Integumentary: No rashes Neurological: Normal gait, Normal speech, Normal strength at 5/5 x4 extr, Normal tone, Normal affect Lymphatics: No axilla or inguinal lymphadenopathy - Diagnosis (Problem(s)) (1) Hypoglycemia Onset Date: 03/16/18 Status: Resolved (2) CHF (congestive heart failure) Onset Date: 07/28/16 Status: Chronic Qualifiers: Heart failure type: combined systolic and diastolic Heart failure chronicity: acute on chronic Qualified Code(s): I50.43 - Acute on chronic combined systolic (congestive) and diastolic (congestive) heart failure (3) Coronary artery disease Onset Date: 07/15/17 Status: Chronic Qualifiers: (4) Diabetes mellitus Onset Date: 07/15/17 Status: Chronic (5) End stage renal disease Onset Date: 05/27/18 Status: Chronic (6) Hypertension Onset Date: 02/21/16 Status: Chronic Qualifiers: (7) Liver cirrhosis Onset Date: 12/15/17 Status: Chronic Qualifiers: Treatment Summary: Patient was admitted to the hospital for hypoglycemia was started on D 10 and blood sugars normalized here in the hospital. Patient did leave the hospital AMA despite extensive education regarding the need to stay in monitor blood sugar here in the hospital patient still insisted on leaving against medical advice and thus was discharged against medical advice - Disposition Disposition: AMA-LEFT AGAINST MEDICAL ADVIC
[2019-01-12 20:18] VITALS: BMI 20.2
[2019-01-12 20:19] VITALS: BP 179/70
[2019-01-12 20:43] VITALS: TEMP 98.1
[2019-01-12 20:54] VITALS: O2SAT 94
[2019-01-12] MEDS ORDERED: ATORVASTATIN 10 MG TAB PO SCH (21:00)
== END 2019-01-12 11:20 | disposition left against medical advice (07) | DRG 637 ==
LOC: ER 10:34 → OBSVTOIN 18:10 → ERHOLD 18:10 → 3RD-ICU 01-12 07:37
PROVIDERS: ADMIT Family Medicine; ATTEND Family Medicine
DX: E11.649 Type 2 diabetes mellitus with hypoglycemia without coma (principal); G93.41 Metabolic encephalopathy; I50.43 Acute on chronic combined systolic (congestive) and diastolic (congestive) heart failure; I13.2 Hypertensive heart and chronic kidney disease with heart failure and with stage 5 chronic kidney disease, or end stage renal disease; D63.1 Anemia in chronic kidney disease; I35.0 Nonrheumatic aortic (valve) stenosis; E11.22 Type 2 diabetes mellitus with diabetic chronic kidney disease; N18.6 End stage renal disease; Z99.2 Dependence on renal dialysis; K74.60 Unspecified cirrhosis of liver; J44.9 Chronic obstructive pulmonary disease, unspecified; I25.10 Atherosclerotic heart disease of native coronary artery without angina pectoris; E78.5 Hyperlipidemia, unspecified; I25.2 Old myocardial infarction; Z95.1 Presence of aortocoronary bypass graft; Z87.891 Personal history of nicotine dependence; Z86.711 Personal history of pulmonary embolism
CPT/HCPCS: 36415; 71045; 74176; 80048; 80053; 80076; 81003; 82550; 82553; 82962; 83605; 83690; 83735; 83880; 84145; 84484; 85025; 85610; 85730; 87040; 87205; 93005; 96361; 96374; 96375; 99281; 99285; J0696; J1720; J2270; J2405; J3010

== ENCOUNTER 2019-01-15 02:08 | Emergency (ER) | payer OTHER ==
--- OUTSIDE RECORDS SUMMARY | 2019-01-15 02:12 | XMS REPORT ---
:1940 Author Organization [facility] Address [address] [place] [address] Dr. Manley [address] [place] [address] Care Team Providers Name Role Phone LAZRODNEY [...] Comments CULTURE (BEAKER) (test PSEUDOMONAS 70-79,000 col/mL klwm=1821) AERUGINOSA Pseudomonas aeruginosa Amikacin (test code=1) Susceptible [...] code=25) Resistant <0 or >4 URINALYSIS W/ [id number] 12:06:00 Test Item Value Reference Range Comments COLOR (BEAKER) (test npxh=438) Yellow CLARITY (BEAKER) (test uthr=233) Hazy SPECIFIC GRAVITY UA (BEAKER) (test zpoq=664) 1.012 1.001-1.035 PH UA (BEAKER) (test genn=963) 6.0 5.0-8.0 PROTEIN UA (BEAKER) (test ielp=913) 600 mg/dL Negative GLUCOSE UA (BEAKER) (test gboq=922) 100 mg/dL Negative KETONES UA (BEAKER) (test afzm=123) Negative Negative BILIRUBIN UA (BEAKER) (test rtmz=996) Negative Negative BLOOD UA (BEAKER) (test rinv=749) Moderate Negative NITRITE UA (BEAKER) (test rpta=576) Negative Negative LEUKOCYTE ESTERASE UA (BEAKER) (test mtay=305) Small Negative UROBILINOGEN UA (BEAKER) (test dxmc=864) 0.2 mg/dL 0.2-1.0 RBC UA (BEAKER) (test igfx=387) 27 /HPF WBC UA (BEAKER) (test dolm=970) 12 /HPF BACTERIA (BEAKER) (test qwkc=504) Occasional MUCUS (BEAKER) (test qaik=6985) Rare SQUAMOUS EPITHELIAL (BEAKER) (test ixti=293) < /HPF HYALINE CASTS (BEAKER) (test wpic=960) 2 /LPF GRANULAR CASTS (BEAKER) (test rlie=591) 5 /LPF SOURCE(BEAKER) (test kzhq=1426) Urine, Yusuf CT, [id number] 15:15:00Reason for exam:->ABDOMINAL PAINWhat is the patient's [...] Verified Date/ Time: 03/01/2018 15:15:27 Reading Location: [address] Body Reading Room BASIC METABOLIC [id number] 11:04:00 Test Item Value Reference Range Comments SODIUM (BEAKER) (test 136 meq/L 136-145 hewn=136) POTASSIUM (BEAKER) (test 4.0 meq/L 3.5-5.1 gilc=921) CHLORIDE (BEAKER) (test 108 meq/L 98-107 wdgh=132) CO2 (BEAKER) (test 15 meq/L 22-29 pelm=234) BLOOD UREA NITROGEN 80 mg/dL 7-21 (BEAKER) (test pikj=047) CREATININE (BEAKER) (test 4.79 mg/dL 0.57-1.25 ajic=838) GLUCOSE RANDOM (BEAKER) 84 mg/dL 70-105 (test qzhn=229) CALCIUM (BEAKER) (test 8.9 mg/dL 8.4-10.2 njts=524) EGFR (BEAKER) (test 12 mL/min/1.73 sq m ESTIMATED GFR IS NOT kcnz=3042) ACCURATE CREATININE CLEARANCE IN PREDICTING GLOMERULAR FILTRATION RATE. ESTIMATED GFR IS NOT APPLICABLE FOR DIALYSIS PATIENTS. [id number] 11:02:00 Test Item Value Reference Range Comments LIPASE (BEAKER) (test kleq=741) 61 U/L 8-78 [id number] 11:02:00 Test Item Value Reference Range Comments AMYLASE (BEAKER) (test lozx=313) 113 U/L 25-125 HEPATIC FUNCTION [id number] 11:02:00 Test Item Value Reference Range Comments TOTAL PROTEIN (BEAKER) (test xjqa=920) 6.8 gm/dL 6.0-8.3 ALBUMIN (BEAKER) (test bicw=3798) 3.5 g/dL 3.5-5.0 BILIRUBIN TOTAL (BEAKER) (test igra=489) 0.4 mg/dL 0.2-1.2 BILIRUBIN DIRECT (BEAKER) (test jowj=997) 0.2 mg/dL 0.1-0.5 ALKALINE PHOSPHATASE (BEAKER) (test vamc=030) 78 U/L 40-150 AST (SGOT) (BEAKER) (test zpem=538) 20 U/L 5-34 ALT (SGPT) (BEAKER) (test pjnf=345) 21 U/L 6-55 URINALYSIS W/ [id number] 11:01:00 Test Item Value Reference Range Comments COLOR (BEAKER) (test fpnp=062) Light Yellow CLARITY (BEAKER) (test ndgz=190) Clear SPECIFIC GRAVITY UA (BEAKER) (test fgxi=012) 1.006 1.001-1.035 PH UA (BEAKER) (test zldp=694) 6.0 5.0-8.0 PROTEIN UA (BEAKER) (test kcfu=462) 300 mg/dL Negative GLUCOSE UA (BEAKER) (test wwva=100) 30 mg/dL Negative KETONES UA (BEAKER) (test wpqm=652) Negative Negative BILIRUBIN UA (BEAKER) (test lzgt=488) Negative Negative BLOOD UA (BEAKER) (test oaiq=424) Trace Negative NITRITE UA (BEAKER) (test pwlt=674) Negative Negative LEUKOCYTE ESTERASE UA (BEAKER) (test vots=054) Negative Negative UROBILINOGEN UA (BEAKER) (test qwpz=066) 0.2 mg/dL 0.2-1.0 RBC UA (BEAKER) (test rllf=475) < /HPF WBC UA (BEAKER) (test oylh=938) < /HPF BACTERIA (BEAKER) (test uokz=969) Rare MUCUS (BEAKER) (test nzqx=6197) Rare SOURCE(BEAKER) (test oeqi=2066) Urine, Voided CBC W/PLT COUNT & AUTO [id number] 10:49:00 Test Item Value Reference Range Comments WHITE BLOOD CELL COUNT (BEAKER) (test rsim=253) 5.6 K/ L 3.5-10.5 RED BLOOD CELL COUNT (BEAKER) (test gvjj=030) 3.10 M/ L 4.63-6.08 HEMOGLOBIN (BEAKER) (test jgxf=350) 9.8 GM/DL 13.7-17.5 HEMATOCRIT (BEAKER) (test osyp=990) 29.7 % 40.1-51.0 MEAN CORPUSCULAR VOLUME (BEAKER) (test hyod=381) 95.8 fL 79.0-92.2 MEAN CORPUSCULAR HEMOGLOBIN (BEAKER) (test 31.6 pg 25.7-32.2 njlu=166) MEAN CORPUSCULAR HEMOGLOBIN CONC (BEAKER) (test 33.0 GM/DL 32.3-36.5 vpkg=619) RED CELL DISTRIBUTION WIDTH (BEAKER) (test 14.0 % 11.6-14.4 zgwd=311) PLATELET COUNT (BEAKER) (test wkgb=167) 171 K/CU MM 150-450 MEAN PLATELET VOLUME (BEAKER) (test dedm=464) 11.1 fL 9.4-12.4 NUCLEATED RED BLOOD CELLS (BEAKER) (test 0 /100 WBC 0-0 mywa=476) NEUTROPHILS RELATIVE PERCENT (BEAKER) (test 69 % wibp=903) LYMPHOCYTES RELATIVE PERCENT (BEAKER) (test 16 % grvv=994) MONOCYTES RELATIVE PERCENT (BEAKER) (test 10 % syug=300) EOSINOPHILS RELATIVE PERCENT (BEAKER) (test 4 % hxib=822) BASOPHILS RELATIVE PERCENT (BEAKER) (test 1 % qeta=100) NEUTROPHILS ABSOLUTE COUNT (BEAKER) (test 3.88 K/ L 1.78-5.38 fbio=562) LYMPHOCYTES ABSOLUTE COUNT (BEAKER) (test 0.88 K/ L 1.32-3.57 sfnh=362) MONOCYTES ABSOLUTE COUNT (BEAKER) (test 0.56 K/ L 0.30-0.82 zmzq=503) EOSINOPHILS ABSOLUTE COUNT (BEAKER) (test 0.25 K/ L 0.04-0.54 bvzf=262) BASOPHILS ABSOLUTE COUNT (BEAKER) (test 0.03 K/ L 0.01-0.08 qnoo=403) IMMATURE GRANULOCYTES-RELATIVE PERCENT (BEAKER) 0 % 0-1 (test ykqd=9124)
--- OUTSIDE RECORDS SUMMARY | 2019-01-15 02:12 | XMS REPORT | Clinical Summary ---
:1940 Author Organization [facility] Address [address] [place] [address] Care Team Providers Name Role Phone Moo [...] 03/01/2018 Orders Only General Internal Medicine after 01/14/2018 Family History Medical History Relation Name Comments [...] 452 ms QTC Calculation(Bazett) 458 ms P [place] 66 degrees R [place] -24 degrees T [place] 140 degrees Normal sinus rhythm Possible Left [...] MICROSCOPIC STAT 03/01/2018 10:19 AM CDT after 01/14/2018 Results Urinalysis w/Microscopic (03/03/2018 11:08 AM CDT)Only the most recent of2 resultswithin the time period is included. Color, UA Yellow [facility] Clarity, UA Hazy [facility] Specific [place], UA 1.012 1.001 - 1.035 [facility] pH, UA 6.0 5.0 - 8.0 [facility] Protein, UA 600 mg/dL (A) Negative [facility] Glucose, UA 100 mg/dL (A) Negative [facility] Ketones, UA Negative Negative [facility] Bilirubin, UA Negative Negative [facility] Blood, UA Moderate (A) Negative [facility] Nitrite, UA Negative Negative [facility] Leukocytes, UA Small (A) Negative [facility] Urobilinogen, UA 0.2 0.2 - 1.0 mg/dL [facility] RBC, UA 27 /HPF [facility] WBC, UA 12 /HPF [facility] Bacteria, UA Occasional [facility] Mucus Rare [facility] Squam Epithel, UA <1 /HPF [facility] Hyaline Casts, UA 2 /LPF [facility] Granular Casts, UA 5 /LPF [facility] Specimen Source Urine, Yusuf [facility] Specimen Urine Performing Organization Address [facility] Phone Number [facility] [address] [place] [address] [place] Urine culture (03/03/2018 11:08 AM CDT) Result 70-79,000 col/mL Pseudomonas [facility] aeruginosa (A) [facility] Specimen Urine Organism [...] aeruginosa Tobramycin <=2: Susceptible Performing Organization Address [facility] Phone Number [address] [address] [place] ED ECG Interpretation (03/02/2018 7:12 AM CDT) Narrative Performed At Macrina Gómez MD 03/02/20187:12 AM ECG/EKG Interpretation Date/Time: 03/01/2018 10:25 AM Performed by: MACRINA GÓMEZ. Authorized by: MACRINA GÓMEZ The ECG was interpreted by ED physician. The ECG is interpreted as sinus rhythm. Rate is normal rate. Conduction: conduction normal. ST segments abnormal. T waves abnormal. [place] is normal. Other findings: no other findings. Clinical Impression: non-specific ECG and abnormal ECG CT abdomen pelvis without contrast (03/01/2018 1:46 PM CDT) Specimen Narrative Performed At FINAL REPORT [facility] ABDOMINAL AND PELVIS CT DATED 03/01/2018 [...] MD Report Verified Date/Time:03/01/2018 15:15:27 Reading Location: [facility] C013Y CT Body Reading Room Procedure [...] Report Verified Date/Time: 03/01/2018 15:15:27 Reading Location: [facility] C013Y CT Body Reading Room Performing Organization Address City/State/Zipcode Phone Number GE RIS CBC with platelet count + automated diff (03/01/2018 10:29 AM CDT) WBC 5.6 3.5 - 10.5 K/L [facility] RBC 3.10 (L) 4.63 - 6.08 M/L [facility] Hemoglobin 9.8 (L) 13.7 - 17.5 GM/DL [facility] Hematocrit 29.7 (L) 40.1 - 51.0 % [facility] MCV 95.8 (H) 79.0 - 92.[address] [facility] MCH 31.6 25.7 - 32.[address] [facility] MCHC 33.0 32.3 - 36.5 GM/DL [facility] RDW 14.0 11.6 - 14.4 % [facility] Platelets 171 150 - 450 K/CU MM [facility] MPV 11.1 9.4 - 12.[address] [facility] nRBC 0 0 - 0 /[address] [facility] % Neutros 69 % [facility] % Lymphs 16 % [facility] % Monos 10 % [facility] % Eos 4 % [facility] % Baso 1 % [facility] # Neutros 3.88 1.78 - 5.38 K/L [facility] # Lymphs 0.88 (L) 1.32 - 3.57 K/L [facility] # Monos 0.56 0.30 - 0.82 K/L [facility] # Eos 0.25 0.04 - 0.54 K/L [facility] # Baso 0.03 0.01 - 0.08 K/L [facility] Immature Granulocytes-Relative 0 0 - 1 % [facility] Specimen Blood Performing Organization Address City/State/Zipcode Phone Number [address] [address] C[place] Lipase (03/01/2018 10:29 AM CDT) Lipase 61 8 - 78 U/L [facility] Specimen Blood Performing Organization Address City/[facility] Phone Number [address] [address] [place] Amylase (03/01/2018 10:29 AM CDT) Amylase 113 25 - 125 U/L [facility] Specimen Blood Performing Organization Address City/[facility]/Zipcode Phone Number [address] [address] [phone] [place] Hepatic function panel (03/01/2018 10:29 AM CDT) Protein, Total 6.8 6.0 - 8.3 gm/dL [facility] Albumin 3.5 3.5 - 5.0 g/dL [facility] Total Bilirubin 0.4 0.2 - 1.2 mg/dL [facility] Bilirubin, Direct 0.2 0.1 - 0.5 mg/dL [facility] Alkaline Phosphatase 78 40 - 150 U/L [facility] AST 20 5 - 34 U/L [facility] ALT 21 6 - 55 U/L [facility] Specimen Blood Performing Organization Address City/[facility] Cent[facility]ode Phone Number [facility] [address] [place] [phone] [place] Basic Metabolic Panel (03/01/2018 10:29 AM CDT) Sodium 136 136 - 145 meq/L [facility] Potassium 4.0 3.5 - 5.1 meq/L [facility] Chloride 108 (H) 98 - 107 meq/L [facility] CO2 15 (L) 22 - 29 meq/L [facility] BUN 80 (H) 7 - 21 mg/dL [facility] Creatinine 4.79 (H) 0.57 - 1.25 mg/dL [facility] Glucose 84 70 - 105 mg/dL [facility] Calcium 8.9 8.4 - 10.2 mg/dL [facility] EGFR 12Comment: ESTIMATED GFR IS mL/min/1.73 sq m [facility] NOT ACCURATE CREATININE [facility] CLEARANCE IN PREDICTING GLOMERULAR FILTRATION RATE. ESTIMATED GFR IS NOT APPLICABLE FOR DIALYSIS PATIENTS. Specimen Blood Performing Organization Address City/[facility] Cent[facility]ode Phone Number [facility] [address] [place] [address] [phone] [place] ECG 12 lead (03/01/2018 10:20 AM CDT) Specimen Narrative Performed At Ventricular Rate 62 BPM GE MUSE Atrial Rate 62 BPM P-R Interval 178 ms QRS Duration 96 ms Q-T Interval 452 ms QTC Calculation(Bazett) 458 ms P [place] 66 degrees R [place] -24 degrees T [place] 140 degrees Normal sinus rhythm Possible Left [...] 452 ms QTC Calculation(Bazett) 458 ms P [place] 66 degrees R [place] -24 degrees T [place] 140 degrees Normal sinus rhythm Possible Left [...] Address City/State/Zipcode Phone Number GE MUSE after 01/14/2018 Insurance Payer Benefit Plan / Group Subscriber ID Type Phone Address MEDICARE MEDICARE A B xxxxxxxxxx Medicare MEDICAID MEDICAID [facility] xxxxxxxxx Medicaid Advance Directives For more information, please contact:[address] [phone] Code Status Date Activated Date Inactivated Comments [...]
[2019-01-15] MEDS ORDERED: ONDANSETRON 4 MG/2 ML VIAL ONE (03:24)
[2019-01-15] MEDS ORDERED: MORPHINE 2 MG/ML SYR ONE ×2 (03:24→04:43)
[2019-01-15 03:25] LABS: Absolute Lymphocytes (CBC) 0.5 K/uL (0.7-4.9); Basophils % 0.8 % (0-1.3); Hematocrit 32.3 % (39.6-49.0); Lymphocytes % 8.6 % (15.3-44.8); MPV 8.7 fL (7.6-11.3); Monocytes % 8.9 % (3.3-12.3); RBC Red Blood Cell Count 3.23 M/uL (4.33-5.43)
[2019-01-15 03:28] LABS: Protime INR 1.27
[2019-01-15 03:56] LABS: Albumin 3.5 g/dL (3.4-5.0); Bilirubin Direct 0.3 mg/dL (0-0.2); Bilirubin Total 0.6 mg/dL (0.2-1.0); Magnesium 2.1 mg/dL (1.8-2.4); Protein, Total 7.2 g/dL (6.4-8.2); Troponin (Emerg Dept Use Only) 0.05 ng/mL (0.0-0.045)
--- NOTE | 2019-01-15 05:48 | ER ---
Nurse's Notes [facility] Name: Blaise Quarles Age: 78 yrs Sex: Male : 1940 Arrival Date: 01/15/2019 Time: 02:09 Bed 6 Private MD: Diagnosis: Chest pain. Abdominal pain. Chronic renal disease Presentation: 01/15 02:26 Presenting complaint: Patient states: Pt complaining of abdominal pain that started at ea 6 PM, pt reports the pain got worse and he now has chest pain. Transition of care: patient was not received from another setting of care. Onset of symptoms was January 15, 2019. Risk Assessment: Do you want to hurt yourself or someone else? Patient reports no desire to harm self or others. Initial Sepsis Screen: Does the patient meet any 2 criteria? No. Patient's initial sepsis screen is negative. Does the patient have a suspected source of infection? No. Patient's initial sepsis screen is negative. Care prior to arrival: None. 02:26 Method Of Arrival: Wheelchair ea 02:26 Acuity: SARATH 3 ea Triage Assessment: 02:29 General: Appears in no apparent distress. Behavior is cooperative. Pain: Complains of ea pain in abdomen. Neuro: Level of Consciousness is awake, alert, obeys commands, Oriented to person, place, time. Cardiovascular: Patient's skin is warm and dry. Cardiovascular: Parent/caregiver reports patient has had chest pain. Respiratory: Airway is patent Respiratory effort is even, unlabored, Respiratory pattern is regular, symmetrical. GI: Reports lower abdominal pain, upper abdominal pain. Historical: - Allergies: 02:33 Aspirin; ea - Home Meds: 02:33 amlodipine 10 mg tab 1 tab once daily [Active]; clonazepam 1 mg Oral tab 1 tab 2 times ea per day [Active]; nitroglycerin 0.4 mg SL subl 1 tab [Active]; Risperdal 0.5 mg Oral tab 1 tabs 2 times per day [Active]; trazodone 100 mg Oral tab 1 tab nightly [Active]; - PMHx: 02:33 Visually impared; pulmonary nodule; pleural effusion; Myocardial infarction; ea Hypertension; High Cholesterol; Dialysis; Diabetes - NIDDM; Cirrhosis; chronic renal disease; CHF; cardiomegaly; CAD; Anemia; - Immunization history:: Adult Immunizations up to date. - Social history:: Smoking status: Patient/guardian denies using tobacco. - Ebola Screening: : No symptoms or risks identified at this time. Screenin:28 Abuse screen: Denies threats or abuse. Nutritional screening: No deficits noted. ea Tuberculosis screening: No symptoms or risk factors identified. Fall Risk None identified. Assessment: 02:26 General: Appears uncomfortable, Behavior is restless. Pain: Complains of pain in ea abdomen. Neuro: Level of Consciousness is awake, alert, obeys commands, Oriented to person, place, time. Cardiovascular: Patient's skin is warm and dry. Respiratory: Airway is patent Respiratory effort is even, unlabored, Respiratory pattern is regular, symmetrical. GI: Bowel sounds present X 4 quads. Abd is soft X 4 quads Abdomen is tender to palpation X 4 quads. Derm: Skin is pink, warm \T\ dry. 03:39 Reassessment: Patient and/or family updated on plan of care and expected duration. Pain ea level reassessed. Patient is alert, oriented x 3, equal unlabored respirations, skin warm/dry/pink. 04:30 Reassessment: patient still complaining of chest pain. ED provider aware with order rr5 made and carried out. Patient states symptoms have not improved. 05:30 Reassessment: Patient appears in no apparent distress at this time. Patient is alert, rr5 oriented x 3, equal unlabored respirations, skin warm/dry/pink. reassess by ED provider. explained to patient advised for admission translated by natalia patient phone representative. patient opted to sign AMA and wants to go home. AMA form signed by his . Patient denies pain at this time. Patient states feeling better. Patient states symptoms have improved. Vital Signs: 02:28 BP 153 / 60; Pulse 64; Resp 18; Temp 97.8; Pulse Ox 100% on R/A; Weight 56.25 kg; ea Height 5 ft. 5 in. (165.10 cm); Pain 10/10; 03:41 BP 149 / 62; Pulse 67; Resp 19; Pulse Ox 96% on R/A; ea 04:30 BP 136 / 65; Pulse 69; Resp 20; Temp 98; Pulse Ox 99% on 2 lpm NC; rr5 05:35 BP 141 / 70; Pulse 62; Resp 18; Temp 98.1; Pulse Ox 99% on 2 lpm NC; rr5 02:28 Body Mass Index 20.63 (56.25 kg, 165.10 cm) ea ED Course: 02:09 Patient arrived in ED. am2 02:17 Pranav Thayer MD is Attending Physician. pkl 02:26 Anusha Redd, RN is Primary Nurse. ea 02:27 Triage completed. ea 02:27 Arm band placed on right wrist. Patient placed in an exam room, on a stretcher, on ea pulse oximetry. 02:28 Patient has correct armband on for positive identification. Bed in low position. Call ea light in reach. Side rails up X2. 03:00 Missed attempt(s): 20 gauge in right forearm. Bleeding controlled, band aid applied, ea catheter tip intact. 03:05 Missed attempt(s): 22 gauge in right antecubital area. Bleeding controlled, band aid ea applied, catheter tip intact. 03:10 Inserted saline lock: 22 gauge in left wrist, using aseptic technique. Blood collected. ak1 03:38 X-ray completed. Portable x-ray completed in exam room. Patient tolerated procedure mh1 well. 03:39 XRAY Chest (1 view) In Process Unspecified. EDMS 04:35 Repeat lab(s) drawn. by me, sent to lab. rr5 05:50 No provider procedures requiring assistance completed. IV discontinued, intact, rr5 bleeding controlled, No redness/swelling at site. Pressure dressing applied. Administered Medications: 03:10 Drug: Zofran 4 mg Route: IVP; Site: left wrist; ea 03:40 Follow up: Response: No adverse reaction ea 03:13 Drug: morphine 2 mg Route: IVP; Site: left wrist; ea 03:40 Follow up: Response: No adverse reaction; Pain is decreased ea 04:30 Drug: morphine 2 mg Route: IVP; Site: left forearm; rr5 05:30 Follow up: Response: Marked relief of symptoms rr5 Outcome: 05:50 AMA AMA form signed rr5 05:50 Condition: stable 05:50 Discharge instructions given to patient, family, translated by patient phone representative Instructed on follow up and referral plans. Demonstrated understanding of instructions, follow-up care. 05:52 Patient left the ED. rr5 Signatures: Dispatcher [employer] EDMS Pranav Thayer MD MD pkl Giovanni, Shirley 1 Sandy Thomas RN RN [email or web address] Natalia Rushing am2 Anusha Redd, RN RN Sergio Spann RN RN rr5 Corrections: (The following items were deleted from the chart) 03:41 03:00 Missed attempt(s): 20 gauge in right forearm. shahid key 03:41 03:05 Missed attempt(s): 22 gauge in right antecubital area. shahid key
--- NOTE | 2019-01-15 05:49 | EDPHYS ---
Physician Documentation [facility] Name: Blaise Quarles Age: 78 yrs Sex: Male : 1940 Arrival Date: 01/15/2019 Time: 02:09 Bed 6 Private MD: ED Physician Pranav Thayer HPI: 01/15 03:03 This 78 yrs old Male presents to ER via Wheelchair with complaints of pkl Abdominal Pain. 03:03 The patient or guardian reports chest pain that is located primarily in the substernal pkl area. Onset: today, 9 hour(s) ago. The pain does not radiate. Associated signs and symptoms: Pertinent positives: abdominal pain. The chest pain is described as a pressure. The patient has experienced similar episodes in the past, several times. Historical: - Allergies: 02:33 Aspirin; ea - Home Meds: 02:33 amlodipine 10 mg tab 1 tab once daily [Active]; clonazepam 1 mg Oral tab 1 tab 2 times ea per day [Active]; nitroglycerin 0.4 mg SL subl 1 tab [Active]; Risperdal 0.5 mg Oral tab 1 tabs 2 times per day [Active]; trazodone 100 mg Oral tab 1 tab nightly [Active]; - PMHx: 02:33 Visually impared; pulmonary nodule; pleural effusion; Myocardial infarction; ea Hypertension; High Cholesterol; Dialysis; Diabetes - NIDDM; Cirrhosis; chronic renal disease; CHF; cardiomegaly; CAD; Anemia; - Immunization history:: Adult Immunizations up to date. - Social history:: Smoking status: Patient/guardian denies using tobacco. - Ebola Screening: : No symptoms or risks identified at this time. ROS: 03:03 Eyes: Negative for injury, pain, redness, and discharge, ENT: Negative for injury, pkl pain, and discharge, Neck: Negative for injury, pain, and swelling. 03:03 Cardiovascular: Positive for chest pain. 03:03 Respiratory: Negative for cough, shortness of breath. 03:03 Abdomen/GI: Positive for abdominal pain, of the right upper quadrant and left upper quadrant. 03:03 Back: Negative for acute changes. 03:03 : Negative for urinary symptoms. 03:03 MS/extremity: Negative for acute changes. 03:03 Skin: Negative for rash. 03:03 Neuro: Negative for altered mental status. Exam: 03:03 Head/Face: Normocephalic, atraumatic. Eyes: Pupils equal round and reactive to light, pkl extra-ocular motions intact. Lids and lashes normal. Conjunctiva and sclera are non-icteric and not injected. Cornea within normal limits. Periorbital areas with no swelling, redness, or edema. ENT: Nares patent. No nasal discharge, no septal abnormalities noted. Tympanic membranes are normal and external auditory canals are clear. Oropharynx with no redness, swelling, or masses, exudates, or evidence of obstruction, uvula midline. Mucous membranes moist. Neck: Trachea midline, no thyromegaly or masses palpated, and no cervical lymphadenopathy. Supple, full range of motion without nuchal rigidity, or vertebral point tenderness. No Meningismus. Chest/axilla: Normal chest wall appearance and motion. Nontender with no deformity. No lesions are appreciated. Cardiovascular: Regular rate and rhythm with a normal S1 and S2. No gallops, murmurs, or rubs. Normal PMI, no JVD. No pulse deficits. Respiratory: Lungs have equal breath sounds bilaterally, clear to auscultation and percussion. No rales, rhonchi or wheezes noted. No increased work of breathing, no retractions or nasal flaring. 03:03 Abdomen/GI: Bowel sounds: normal, Palpation: soft, mild abdominal tenderness, in the right upper quadrant and left upper quadrant. 03:03 Back: Exam negative for acute changes. 03:03 : Exam negative for acute changes. 03:03 Musculoskeletal/extremity: Exam is negative for acute changes. 03:03 Skin: Exam negative for rash. 03:03 Neuro: Orientation: appropriate for stated age, Mentation: is normal, Cranial nerves: grossly normal, Motor: is normal. Vital Signs: 02:28 BP 153 / 60; Pulse 64; Resp 18; Temp 97.8; Pulse Ox 100% on R/A; Weight 56.25 kg; ea Height 5 ft. 5 in. (165.10 cm); Pain 10/10; 03:41 BP 149 / 62; Pulse 67; Resp 19; Pulse Ox 96% on R/A; ea 04:30 BP 136 / 65; Pulse 69; Resp 20; Temp 98; Pulse Ox 99% on 2 lpm NC; rr5 05:35 BP 141 / 70; Pulse 62; Resp 18; Temp 98.1; Pulse Ox 99% on 2 lpm NC; rr5 02:28 Body Mass Index 20.63 (56.25 kg, 165.10 cm) ea MDM: 02:17 Patient medically screened. pkl 05:33 Data reviewed: vital signs, nurses notes, lab test result(s), EKG, radiologic studies, pkl plain films. ED course: Discussed lab. and X'rays results with patient and family members with translations. Patient said he is better now. Does not want to be transferred to [facility] ( [place] ) now or admitted to the hospital here. Patient want to go to dialysis clinic this morning. Advised to return or go to [facility] ( [place] ) if chest pain recurs. Patient and family members understood instructions. Patient unable to sign AMA because he is unable to see. Patient's signed AMA on his behalf.. 01/15 03:01 Order name: Basic Metabolic Panel; Complete Time: 04:00 pkl 01/15 03:01 Order name: CBC with Diff; Complete Time: 03:34 pkl 01/15 03:01 Order name: LFT's; Complete Time: 04:00 pkl 01/15 03:01 Order name: Magnesium; Complete Time: 04:00 pkl 01/15 03:01 Order name: NT PRO-BNP; Complete Time: 04:00 pkl 01/15 03:01 Order name: PT-INR; Complete Time: 03:34 pkl 01/15 03:01 Order name: Troponin (emerg Dept Use Only); Complete Time: 04:00 pkl 01/15 03:01 Order name: XRAY Chest (1 view) pkl 01/15 03:25 Order name: Lipase; Complete Time: 04:00 EDMS 01/15 04:25 Order name: Troponin (emerg Dept Use Only); Complete Time: 05:16 pkl 01/15 03:01 Order name: EKG; Complete Time: 03:03 pkl 01/15 03:01 Order name: Cardiac monitoring; Complete Time: 03:22 pkl 01/15 03:01 Order name: EKG - Nurse/Tech; Complete Time: 03:22 pkl 01/15 03:01 Order name: IV Saline Lock; Complete Time: 03:22 pkl 01/15 03:01 Order name: Labs collected and sent; Complete Time: 03:22 pkl 01/15 03:01 Order name: O2 Per Protocol; Complete Time: 03:22 pkl 01/15 03:01 Order name: O2 Sat Monitoring; Complete Time: 03:22 pkl 01/15 04:25 Order name: EKG; Complete Time: 04:26 pkl Administered Medications: 03:10 Drug: Zofran 4 mg Route: IVP; Site: left wrist; ea 03:40 Follow up: Response: No adverse reaction ea 03:13 Drug: morphine 2 mg Route: IVP; Site: left wrist; ea 03:40 Follow up: Response: No adverse reaction; Pain is decreased ea 04:30 Drug: morphine 2 mg Route: IVP; Site: left forearm; rr5 05:30 Follow up: Response: Marked relief of symptoms rr5 Disposition: 01/15/19 05:47 Patient has left against medical advice. Impression: Chest pain. Abdominal pain. Chronic renal disease. - Patients states they are going to Home. - Condition is Fair. Follow up: Private Physician; When: 1 - 2 days; Reason: Re-evaluation by your physician. - Problem is new. - Symptoms have improved. Signatures: Dispatcher [employer] [facility] Pranav Thayer MD MD pkl Antunez, Elena, RN RN Sergio Spann RN RN rr5 Corrections: (The following items were deleted from the chart) 03:23 03:03 LIPASE+C.LAB.BRZ ordered. [facility] 05:52 05:47 01/15/2019 05:47 Patients has left against medical advice. Impression: Chest rr5 pain. Abdominal pain. Chronic renal disease. Patient states they are going to Home. Condition is Fair. Follow up: Private Physician; When: 1 - 2 days; Reason: Re-evaluation by your physician. Problem is new. Symptoms have improved. pkl
[2019-01-15 06:02] VITALS: O2SAT 99
[2019-01-15 06:03] VITALS: BP 141/70; TEMP 98.1
--- NOTE | 2019-01-15 07:18 | EKG ---
Test Date: 2019-01-15 Test Time: 02:42:12 Certified Ophthalmic Medical Technician: ÁNGEL MEASUREMENT RESULTS: Intervals: Rate: 65 W[place]: 188 QRSD: 92 QT: 430 QTc: 447 [place]: P: 48 [place]: 188 QRS: -10 T: -16 INTERPRETIVE STATEMENTS: Normal sinus rhythm Possible Left atrial enlargement Septal infarct, age undetermined Abnormal ECG Compared to ECG 01/11/2019 11:40:52 T-wave abnormality no longer present Possible ischemia no longer present Myocardial infarct finding still present Electronically Signed On 01-15-19 07:18:12 CDT by Brandon Pérez
--- NOTE | 2019-01-15 07:18 | EKG ---
Test Date: 2019-01-15 Test Time: 04:33:55 Cable Television Installer: RR MEASUREMENT RESULTS: Intervals: Rate: 64 MS: 194 QRSD: 102 QT: 438 QTc: 451 [place]: P: 58 MS: 194 QRS: -21 T: 129 INTERPRETIVE STATEMENTS: Normal sinus rhythm Septal infarct, age undetermined T wave abnormality, consider lateral ischemia Abnormal ECG Compared to ECG 01/15/2019 03:17:31 No significant changes Electronically Signed On 01-15-19 07:17:44 CDT by Brandon Pérez
--- NOTE | 2019-01-15 07:18 | EKG ---
Test Date: 2019-01-15 Test Time: 03:17:31 Floor Care Specialist: ÁNGEL MEASUREMENT RESULTS: Intervals: Rate: 63 [place]: 190 QRSD: 102 QT: 434 QTc: 444 [place]: P: 60 [place]: 190 QRS: -27 T: 121 INTERPRETIVE STATEMENTS: Normal sinus rhythm Possible Left atrial enlargement Septal infarct, age undetermined Inferior infarct, age undetermined T wave abnormality, consider lateral ischemia Abnormal ECG Compared to ECG 01/15/2019 02:42:12 T-wave abnormality now present Possible ischemia now present Myocardial infarct finding still present Electronically Signed On 01-15-19 07:17:47 CDT by Brandon Pérez
--- NOTE | 2019-01-15 11:38 | RAD REPORT ---
EXAM DESCRIPTION: RAD - Chest Single View - 01/15/2019 3:41 am CLINICAL HISTORY: CHEST PAIN Chest pain. COMPARISON: Chest Single View dated 01/11/2019; Chest Single View dated 01/08/2019; Chest Single View d ated 01/03/2019; Chest Single View dated 12/27/2018 FINDINGS: Portable technique limits examination quality. Bibasilar lung opacities are present with small pleural effusions, unchanged. The heart is prominent in size with changes of a prior CABG seen. Right-sided dialysis catheter has tip in the SVC. IMPRESSION: Stable chest since 01/11/2019.
== END 2019-01-15 05:52 | disposition left against medical advice (07) ==
LOC: ER 02:08
DX: R07.9 Chest pain, unspecified (principal); R10.9 Unspecified abdominal pain; E11.22 Type 2 diabetes mellitus with diabetic chronic kidney disease; E78.00 Pure hypercholesterolemia, unspecified; I13.11 Hypertensive heart and chronic kidney disease without heart failure, with stage 5 chronic kidney disease, or end stage renal disease; N18.6 End stage renal disease; Z99.2 Dependence on renal dialysis; D64.9 Anemia, unspecified; I25.2 Old myocardial infarction; Z88.6 Allergy status to analgesic agent; Z53.29 Procedure and treatment not carried out because of patient's decision for other reasons
CPT/HCPCS: 93005 ×3; 85025; 80048; 36415; 83735; 85610; 80076; 84484 ×2; 83690; 83880; 71045; 99284; J2270 ×2; J2405

== ENCOUNTER 2019-01-18 20:13 | Emergency (ER) | payer OTHER ==
--- OUTSIDE RECORDS SUMMARY | 2019-01-18 20:16 | XMS REPORT | Clinical Summary ---
:1940 Author Organization [facility] Address [address] [place] [address] Care Team Providers Name Role Phone Moo [...] 03/01/2018 Orders Only General Internal Medicine after 01/17/2018 Family History Medical History Relation Name Comments [...] ms QTC Calculation(Bazett) 458 ms P [place] 66 degrees R [place] -24 degrees T [place] 140 degrees Normal sinus rhythm Possible Left [...] MICROSCOPIC STAT 03/01/2018 10:19 AM CDT after 01/17/2018 Results Urinalysis w/Microscopic (03/03/2018 11:08 AM CDT)Only the most recent of2 resultswithin the time period is included. Color, UA Yellow [facility] Clarity, UA Hazy [facility] Specific [place], UA 1.012 1.001 - 1.035 [facility] pH, UA 6.0 5.0 - 8.0 [facility] Protein, UA 600 mg/dL (A) Negative [facility] Glucose, UA 100 mg/dL (A) Negative [facility] Ketones, UA Negative Negative [facility] Bilirubin, UA Negative Negative [facility] Blood, UA Moderate (A) Negative [facility] Nitrite, UA Negative Negative [facility] Leukocytes, UA Small (A) Negative [facility] Urobilinogen, UA 0.2 0.2 - 1.0 mg/dL [facility] RBC, UA 27 /HPF [facility] WBC, UA 12 /HPF [facility] Bacteria, UA Occasional [facility] Mucus Rare [facility] Squam Epithel, UA <1 /HPF [facility] Hyaline Casts, UA 2 /LPF [facility] Granular Casts, UA 5 /LPF [facility] Specimen Source Urine, Yusuf [facility] Specimen Urine Performing Organization Address [facility] Phone Number [facility] [address] [place] [address] [place] Urine culture (03/03/2018 11:08 AM CDT) Result 70-79,000 col/mL Pseudomonas [facility] aeruginosa (A) [facility] Specimen Urine Organism [...] aeruginosa Tobramycin <=2: Susceptible Performing Organization Address [facility] Phone Number [address] [address] [place] ED ECG Interpretation (03/02/2018 7:12 AM CDT) Narrative Performed At Macrina Gómez MD 03/02/20187:12 AM ECG/EKG Interpretation Date/Time: 03/01/2018 10:25 AM Performed by: MACRINA GÓMEZ. Authorized by: MACRINA GÓMEZ The ECG was interpreted by ED physician. The ECG is interpreted as sinus rhythm. Rate is normal rate. Conduction: conduction normal. ST segments abnormal. T waves abnormal. [place] is normal. Other findings: no other findings. Clinical Impression: non-specific ECG and abnormal ECG CT abdomen pelvis without contrast (03/01/2018 1:46 PM CDT) Specimen Narrative Performed At FINAL REPORT [employer] [facility] ABDOMINAL AND [...] MD Report Verified Date/Time:03/01/2018 15:15:27 Reading Location: [facility] C013Y CT Body Reading Room Procedure Note [...] Report Verified Date/Time: 03/01/2018 15:15:27 Reading Location: [facility] C013Y CT Body Reading Room Performing Organization Address City/State/Zipcode Phone Number GE RIS CBC with platelet count + automated diff (03/01/2018 10:29 AM CDT) WBC 5.6 3.5 - 10.5 K/L [facility] RBC 3.10 (L) 4.63 - 6.08 M/L [facility] Hemoglobin 9.8 (L) 13.7 - 17.5 GM/DL [facility] Hematocrit 29.7 (L) 40.1 - 51.0 % [facility] MCV 95.8 (H) 79.0 - 92.2 fL [facility] MCH 31.6 25.7 - 32.2 pg [facility] MCHC 33.0 32.3 - 36.5 GM/DL [facility] RDW 14.0 11.6 - 14.4 % [facility] Platelets 171 150 - 450 K/CU MM [facility] MPV 11.1 9.4 - 12.4 fL [facility] nRBC 0 0 - 0 /100 WBC [facility] % Neutros 69 % [facility] % Lymphs 16 % [facility] % Monos 10 % [facility] % Eos 4 % [facility] % Baso 1 % [facility] # Neutros 3.88 1.78 - 5.38 K/L [facility] # Lymphs 0.88 (L) 1.32 - 3.57 K/L [facility] # Monos 0.56 0.30 - 0.82 K/L [facility] # Eos 0.25 0.04 - 0.54 K/L [facility] # Baso 0.03 0.01 - 0.08 K/L [facility] Immature Granulocytes-Relative 0 0 - 1 % [facility] Specimen Blood Performing Organization Address City/State/Zipcode Phone Number [address] [address] [phone] CENTER Lipase (03/01/2018 10:29 AM CDT) Lipase 61 8 - 78 U/L [facility] Specimen Blood Performing Organization Address City/[facility] Phone Number [address] [address] [place] Amylase (03/01/2018 10:29 AM CDT) Amylase 113 25 - 125 U/L [facility] Specimen Blood Performing Organization Address City/[facility]/Zipcode Phone Number [address] [address] [place] Hepatic function panel (03/01/2018 10:29 AM CDT) Protein, Total 6.8 6.0 - 8.3 gm/dL [facility] Albumin 3.5 3.5 - 5.0 g/dL [facility] Total Bilirubin 0.4 0.2 - 1.2 mg/dL [facility] Bilirubin, Direct 0.2 0.1 - 0.5 mg/dL [facility] Alkaline Phosphatase 78 40 - 150 U/L [facility] AST 20 5 - 34 U/L [facility] ALT 21 6 - 55 U/L [facility] Specimen Blood Performing Organization Address City/[facility] Phone Number [facility] [address] [place] [phone] [place] Basic Metabolic Panel (03/01/2018 10:29 AM CDT) Sodium 136 136 - 145 meq/L [facility] Potassium 4.0 3.5 - 5.1 meq/L [facility] Chloride 108 (H) 98 - 107 meq/L [facility] CO2 15 (L) 22 - 29 meq/L [facility] BUN 80 (H) 7 - 21 mg/dL [facility] Creatinine 4.79 (H) 0.57 - 1.25 mg/dL [facility] Glucose 84 70 - 105 mg/dL [facility] Calcium 8.9 8.4 - 10.2 mg/dL [facility] EGFR 12Comment: ESTIMATED GFR IS mL/min/1.73 sq m [facility] NOT ACCURATE CREATININE [facility] CLEARANCE IN PREDICTING GLOMERULAR FILTRATION RATE. ESTIMATED GFR IS NOT APPLICABLE FOR DIALYSIS PATIENTS. Specimen Blood Performing Organization Address City/[facility] Phone Number [facility] [address] [place] [phone] [place] ECG 12 lead (03/01/2018 10:20 AM CDT) Specimen Narrative Performed At Ventricular Rate 62 BPM GE MUSE Atrial Rate 62 BPM P-R Interval 178 ms QRS Duration 96 ms Q-T Interval 452 ms QTC Calculation(Bazett) 458 ms P [place] 66 degrees R [place] -24 degrees T [place] 140 degrees Normal sinus rhythm Possible Left [...] ms QTC Calculation(Bazett) 458 ms P [place] 66 degrees R [place] -24 degrees T [place] 140 degrees Normal sinus rhythm Possible Left [...] Address City/State/Zipcode Phone Number GE MUSE after 01/17/2018 Insurance Payer Benefit Plan / Group Subscriber ID Type Phone Address MEDICARE MEDICARE A B xxxxxxxxxx Medicare MEDICAID MEDICAID [facility] xxxxxxxxx Medicaid Advance Directives For more information, please contact:[address] [phone] Code Status Date Activated Date Inactivated Comments [...]
--- OUTSIDE RECORDS SUMMARY | 2019-01-18 20:17 | XMS REPORT ---
:1940 Author Organization [facility] Address [address] [place] [address] Dr. Manley [address] [place] [address] Care Team Providers Name Role Phone LAZ [...] Comments CULTURE (BEAKER) (test PSEUDOMONAS 70-79,000 col/mL ktmq=2769) AERUGINOSA Pseudomonas aeruginosa Amikacin (test code=1) Susceptible [...] code=25) Resistant <0 or >4 URINALYSIS W/ [id number] 12:06:00 Test Item Value Reference Range Comments COLOR (BEAKER) (test grvx=804) Yellow CLARITY (BEAKER) (test kjup=408) Hazy SPECIFIC GRAVITY UA (BEAKER) (test wbbi=410) 1.012 1.001-1.035 PH UA (BEAKER) (test byqm=137) 6.0 5.0-8.0 PROTEIN UA (BEAKER) (test ujte=325) 600 mg/dL Negative GLUCOSE UA (BEAKER) (test zalh=780) 100 mg/dL Negative KETONES UA (BEAKER) (test auwz=792) Negative Negative BILIRUBIN UA (BEAKER) (test zcuf=717) Negative Negative BLOOD UA (BEAKER) (test hawn=698) Moderate Negative NITRITE UA (BEAKER) (test psij=187) Negative Negative LEUKOCYTE ESTERASE UA (BEAKER) (test qgqs=078) Small Negative UROBILINOGEN UA (BEAKER) (test ratr=698) 0.2 mg/dL 0.2-1.0 RBC UA (BEAKER) (test riiz=470) 27 /HPF WBC UA (BEAKER) (test cqfv=303) 12 /HPF BACTERIA (BEAKER) (test seqd=780) Occasional MUCUS (BEAKER) (test muwc=3725) Rare SQUAMOUS EPITHELIAL (BEAKER) (test ofdt=544) < /HPF HYALINE CASTS (BEAKER) (test obki=592) 2 /LPF GRANULAR CASTS (BEAKER) (test ilta=135) 5 /LPF SOURCE(BEAKER) (test togq=2701) Urine, Yusuf CT, [id number] 15:15:00Reason for exam:->ABDOMINAL PAINWhat is the patient's [...] Date/ Time: 03/01/2018 15:15:27 Reading Location: [address] Body Reading Room BASI METABOLIC [id number] 11:04:00 Test Item Value Reference Range Comments SODIUM (BEAKER) (test 136 meq/L 136-145 omad=937) POTASSIUM (BEAKER) (test 4.0 meq/L 3.5-5.1 grqx=576) CHLORIDE (BEAKER) (test 108 meq/L 98-107 bboi=163) CO2 (BEAKER) (test 15 meq/L 22-29 npab=350) BLOOD UREA NITROGEN 80 mg/dL 7-21 (BEAKER) (test kihs=862) CREATININE (BEAKER) (test 4.79 mg/dL 0.57-1.25 ngkz=601) GLUCOSE RANDOM (BEAKER) 84 mg/dL 70-105 (test rlvw=970) CALCIUM (BEAKER) (test 8.9 mg/dL 8.4-10.2 pprv=546) EGFR (BEAKER) (test 12 mL/min/1.73 sq m ESTIMATED GFR IS NOT lyok=8543) ACCURATE CREATININE CLEARANCE IN PREDICTING GLOMERULAR FILTRATION RATE. ESTIMATED GFR IS NOT APPLICABLE FOR DIALYSIS PATIENTS. [id number] 11:02:00 Test Item Value Reference Range Comments LIPASE (BEAKER) (test ovit=748) 61 U/L 8-78 [id number] 11:02:00 Test Item Value Reference Range Comments AMYLASE (BEAKER) (test opuj=805) 113 U/L 25-125 HEPATIC FUNCTION [id number] 11:02:00 Test Item Value Reference Range Comments TOTAL PROTEIN (BEAKER) (test mbvh=108) 6.8 gm/dL 6.0-8.3 ALBUMIN (BEAKER) (test hnmi=7187) 3.5 g/dL 3.5-5.0 BILIRUBIN TOTAL (BEAKER) (test dkls=003) 0.4 mg/dL 0.2-1.2 BILIRUBIN DIRECT (BEAKER) (test lzay=189) 0.2 mg/dL 0.1-0.5 ALKALINE PHOSPHATASE (BEAKER) (test afds=976) 78 U/L 40-150 AST (SGOT) (BEAKER) (test tqrz=871) 20 U/L 5-34 ALT (SGPT) (BEAKER) (test zima=710) 21 U/L 6-55 URINALYSIS W/ [id number] 11:01:00 Test Item Value Reference Range Comments COLOR (BEAKER) (test wcpp=087) Light Yellow CLARITY (BEAKER) (test pjxk=891) Clear SPECIFIC GRAVITY UA (BEAKER) (test jafu=698) 1.006 1.001-1.035 PH UA (BEAKER) (test fjle=765) 6.0 5.0-8.0 PROTEIN UA (BEAKER) (test udzc=921) 300 mg/dL Negative GLUCOSE UA (BEAKER) (test ochn=299) 30 mg/dL Negative KETONES UA (BEAKER) (test egtk=575) Negative Negative BILIRUBIN UA (BEAKER) (test zrmg=782) Negative Negative BLOOD UA (BEAKER) (test nvfm=268) Trace Negative NITRITE UA (BEAKER) (test aili=993) Negative Negative LEUKOCYTE ESTERASE UA (BEAKER) (test bnvy=929) Negative Negative UROBILINOGEN UA (BEAKER) (test htjs=215) 0.2 mg/dL 0.2-1.0 RBC UA (BEAKER) (test vrhh=598) < /HPF WBC UA (BEAKER) (test itvn=360) < /HPF BACTERIA (BEAKER) (test oonr=328) Rare MUCUS (BEAKER) (test boae=1079) Rare SOURCE(BEAKER) (test oetd=0970) Urine, Voided CBC W/PLT COUNT & AUTO [id number] 10:49:00 Test Item Value Reference Range Comments WHITE BLOOD CELL COUNT (BEAKER) (test obaj=918) 5.6 K/ L 3.5-10.5 RED BLOOD CELL COUNT (BEAKER) (test omji=987) 3.10 M/ L 4.63-6.08 HEMOGLOBIN (BEAKER) (test fwnu=389) 9.8 GM/DL 13.7-17.5 HEMATOCRIT (BEAKER) (test pczu=555) 29.7 % 40.1-51.0 MEAN CORPUSCULAR VOLUME (BEAKER) (test aycz=372) 95.8 fL 79.0-92.2 MEAN CORPUSCULAR HEMOGLOBIN (BEAKER) (test 31.6 pg 25.7-32.2 nnjh=573) MEAN CORPUSCULAR HEMOGLOBIN CONC (BEAKER) (test 33.0 GM/DL 32.3-36.5 qhnc=606) RED CELL DISTRIBUTION WIDTH (BEAKER) (test 14.0 % 11.6-14.4 cali=349) PLATELET COUNT (BEAKER) (test jeif=071) 171 K/CU MM 150-450 MEAN PLATELET VOLUME (BEAKER) (test hral=270) 11.1 fL 9.4-12.4 NUCLEATED RED BLOOD CELLS (BEAKER) (test 0 /100 WBC 0-0 rinm=101) NEUTROPHILS RELATIVE PERCENT (BEAKER) (test 69 % avbu=150) LYMPHOCYTES RELATIVE PERCENT (BEAKER) (test 16 % xtfo=907) MONOCYTES RELATIVE PERCENT (BEAKER) (test 10 % nluv=264) EOSINOPHILS RELATIVE PERCENT (BEAKER) (test 4 % uqsm=772) BASOPHILS RELATIVE PERCENT (BEAKER) (test 1 % rgyh=368) NEUTROPHILS ABSOLUTE COUNT (BEAKER) (test 3.88 K/ L 1.78-5.38 praq=553) LYMPHOCYTES ABSOLUTE COUNT (BEAKER) (test 0.88 K/ L 1.32-3.57 sbrq=753) MONOCYTES ABSOLUTE COUNT (BEAKER) (test 0.56 K/ L 0.30-0.82 dfbn=143) EOSINOPHILS ABSOLUTE COUNT (BEAKER) (test 0.25 K/ L 0.04-0.54 pkvo=618) BASOPHILS ABSOLUTE COUNT (BEAKER) (test 0.03 K/ L 0.01-0.08 hysp=977) IMMATURE GRANULOCYTES-RELATIVE PERCENT (BEAKER) 0 % 0-1 (test ptan=4809)
[2019-01-18 21:53] LABS: Absolute Lymphocytes (CBC) 0.4 K/uL (0.7-4.9); Basophils % 0.8 % (0-1.3); Eosinophils % 3.3 % (0-4.4); Hematocrit 35.3 % (39.6-49.0); Lymphocytes % 8.6 % (15.3-44.8); Monocytes % 10.6 % (3.3-12.3); RBC Red Blood Cell Count 3.46 M/uL (4.33-5.43)
[2019-01-18 22:17] LABS: Potassium 6.3 mmol/L (3.5-5.1)
[2019-01-18] MEDS ORDERED: LORazepam 2 MG/ML VIAL ONE (23:23)
[2019-01-18] MEDS ORDERED: ALBUTEROL 2.5 MG/3 ML NEB SOL ONE (23:23)
[2019-01-18] MEDS ORDERED: INSULIN -REGULAR HUMAN 50 UNIT/0.5 ML ML ONE (23:25)
[2019-01-18] MEDS ORDERED: D50W 25 GM/50 ML SYRINGE IV ONE (23:26)
[2019-01-18] MEDS ORDERED: SOD POLYSTYREN SUL 15 GM/60 ML UCUP ONE (23:26)
--- NOTE | 2019-01-18 23:29 | ER ---
Nurse's Notes [facility] Name: Blaise Quarles Age: 78 yrs Sex: Male : 1940 Arrival Date: 01/18/2019 Time: 20:17 Bed 23 Private MD: Diagnosis: Hyperkalemia;Chronic kidney disease (CKD);Abdominal and pelvic pain Presentation: 01/18 20:43 Presenting complaint: Patient states: abd pain stated today, denies N/V/D. pt ak1 requesting "pain shot". Transition of care: patient was not received from another setting of care. Onset of symptoms was January 18, 2019. Risk Assessment: Do you want to hurt yourself or someone else? Patient reports no desire to harm self or others. Initial Sepsis Screen: Does the patient meet any 2 criteria? No. Patient's initial sepsis screen is negative. Does the patient have a suspected source of infection? No. Patient's initial sepsis screen is negative. Care prior to arrival: None. 20:43 Method Of Arrival: Wheelchair ak1 20:43 Acuity: SARATH 3 ak1 Triage Assessment: 20:44 General: Appears in no apparent distress. Behavior is cooperative. ak1 Historical: - Allergies: 20:44 Aspirin; ak1 - Home Meds: 20:44 amlodipine 10 mg tab 1 tab once daily [Active]; clonazepam 1 mg Oral tab 1 tab 2 times ak1 per day [Active]; nitroglycerin 0.4 mg SL subl 1 tab [Active]; Risperdal 0.5 mg Oral tab 1 tabs 2 times per day [Active]; trazodone 100 mg Oral tab 1 tab nightly [Active]; - PMHx: 20:44 Anemia; cardiomegaly; CAD; chronic renal disease; CHF; Diabetes - NIDDM; Cirrhosis; ak1 High Cholesterol; Hypertension; Myocardial infarction; pleural effusion; Visually impared; pulmonary nodule; Dialysis; - Immunization history:: Adult Immunizations up to date. - Social history:: Smoking status: Patient/guardian denies using tobacco. - Ebola Screening: : No symptoms or risks identified at this time. Screenin:08 Abuse screen: Denies threats or abuse. Nutritional screening: No deficits noted. ae4 Tuberculosis screening: No symptoms or risk factors identified. Fall Risk No fall in past 12 months (0 pts). No secondary diagnosis (0 pts). IV access (20 points). Ambulatory Aid- Crutches/Cane/Walker (15 pts). Gait- Weak (10 pts.). Mental Status- Overestimates/Forgets Limitations (15 pts.). Assessment: 21:22 General: Appears uncomfortable, unkempt, Behavior is anxious, restless. Pain: Complains ae4 of pain in left lower quadrant Pain currently is 10 out of 10 on a pain scale. 22:08 Neuro: Level of Consciousness is awake, alert, Oriented to person, place. ae4 Cardiovascular: Patient's skin is warm and dry. Respiratory: Airway is patent Respiratory effort is even, unlabored, Respiratory pattern is regular, symmetrical. GI: Bowel sounds present X 4 quads. Abd is soft Abdomen is tender to palpation in left upper quadrant and left lower quadrant. GI: Patient currently denies constipation, diarrhea, nausea, Patient states he want "an injection" He states he does not want any tests, just a "pain medication injection". : No signs and/or symptoms were reported regarding the genitourinary system. EENT: No signs and/or symptoms were reported regarding the EENT system. Derm: No signs and/or symptoms reported regarding the dermatologic system. Musculoskeletal: No signs and/or symptoms reported regarding the musculoskeletal system. 22:11 Reassessment: Patient refuses to go to CT, states " I can't. I get too anxious." ae4 Provider notified. 23:00 Reassessment: Patient is requesting pain medication and still refusing CT. Patient ae4 allowed blood work and IV to be completed. Patient is refusing further tests and states he just wants an injection of morphine so he can go home. Patient teaching provided on pain management and appropriate diagnostics needed. Provider notified, new orders to instruct patient on options. Patient now states he wants to leave "if the doctor isn't going to give me an injection." Provider notified, patient states he will not stay. Patient allowed medication administration and EKG. 01/19 00:04 Reassessment: Patient has nebulizer treatment and states he feels better. Patient ae4 states feeling better. Patient states symptoms have improved. 01:59 Reassessment: Patient appears in no apparent distress at this time. Patient and/or rv family updated on plan of care and expected duration. Pain level reassessed. Patient is alert, oriented x 3, equal unlabored respirations, skin warm/dry/pink. awaiting CT scan result. Vital Signs: 01/18 20:41 BP 152 / 52; Pulse 62; Resp 18; Temp 98.5; Pulse Ox 95% on 2 lpm NC; Weight 63.5 kg ak1 (R); Height 5 ft. 2 in. (157.48 cm) (R); Pain 03/22; 01/19 00:03 BP 151 / 60; Pulse 66; Resp 19; Pulse Ox 100% on Nebulizer Mask; ae4 01:00 BP 157 / 58; Pulse 74; Resp 17; Pulse Ox 96% on 2 lpm NC; rv 01:45 BP 148 / 55; Pulse 75; Resp 17; Pulse Ox 95% on 2 lpm NC; rv 02:30 BP 145 / 56; Pulse 76; Resp 17; Temp 98.3; Pulse Ox 97% on 2 lpm NC; rv 03:00 BP 141 / 55; Pulse 75; Resp 16; Pulse Ox 97% 2 lpm ; rv 01/18 20:41 Body Mass Index 25.61 (63.50 kg, 157.48 cm) ak1 ED Course: 01/18 20:17 Patient arrived in ED. do 20:41 Arm band placed on Patient placed in waiting room, Patient notified of wait time. ak1 20:43 Triage completed. ak1 21:11 Hayden Sawyer PA is PHCP. jr8 21:11 Morgan Vigil MD is Attending Physician. jr8 21:21 Scott Santizo, HUONG is Primary Nurse. ae4 21:50 Basic Metabolic Panel Sent. rv 21:50 CBC with Diff Sent. rv 21:50 Inserted saline lock: 22 gauge in left antecubital area, using aseptic technique. Blood rv collected. Missed attempt(s): 22 gauge in right forearm. 22:11 Radiology exam delayed due to pt refused CT exam; ANDRE Blake notified. sj 22:14 Placed in gown. Bed in low position. Call light in reach. Side rails up X2. Adult w/ ae4 patient. Pulse ox on. NIBP on. Warm blanket given. 01/19 02:30 CT Stone Protocol Sent. rv 03:05 No provider procedures requiring assistance completed. IV discontinued, intact, rv bleeding controlled, No redness/swelling at site. Pressure dressing applied. 06:22 CT Stone Protocol In Process Unspecified. EDMS Administered Medications: 01/18 23:35 Drug: Ativan 1 mg Route: IVP; Site: left antecubital; ae4 01/19 00:00 Follow up: Response: Other; Patient appears more relaxed. ae4 01/18 23:35 Drug: Kayexalate 45 grams Route: PO; ae4 01/19 02:29 Follow up: Response: No adverse reaction rv 01/18 23:38 Drug: Insulin Regular Human 10 units {Co-Signature: rv (Shoaib Valentin RN).} Route: ae4 IVP; Site: left antecubital; 01/19 02:30 Follow up: Response: No adverse reaction rv 01/18 23:38 Drug: D50W 50 ml Route: IVP; Site: left antecubital; ae4 01/19 02:00 Follow up: Response: No adverse reaction rv 01/18 23:40 Drug: Albuterol 2.5 mg Route: Inhalation; ae4 01/19 00:00 Drug: Albuterol 2.5 mg Route: Inhalation; ae4 01:20 Drug: Albuterol 2.5 mg Route: Inhalation; rv Intake: Outcome: 02:42 Discharge ordered by MD. melton 03:06 Discharged to home ambulatory. rv 03:06 Condition: good 03:06 Discharge instructions given to patient, family, Instructed on discharge instructions, follow up and referral plans. Demonstrated understanding of instructions, follow-up care. 03:06 Patient left the ED. rv Signatures: Dispatcher [employer] EDTX Doris Carrington Josh, PA PA jr8 Sandy Thomas RN RN ak1 Layla Pendleton Ronaldo, RN RN rv Scott Santizo, HUONG RN ae4 Shoaib Valentin RN rv Corrections: (The following items were deleted from the chart) 00:15 01/18 23:38 D50W 50 ml IVP in left antecubital ae4 ae4 01/19 01:39 01/18 20:43 Acuity: SARATH 4 ak1 ak1 01/19 01:59 01:57 Reassessment: Patient appears in no apparent distress at this time. Patient rv and/or family updated on plan of care and expected duration. Pain level reassessed. Patient is alert, oriented x 3, equal unlabored respirations, skin warm/dry/pink. patient pulled her IV on left AC. put the IV on her right hand and inserted another iv on right AC needed for the CT scan. rv :59 01:00 Inserted saline lock: 18 gauge in right hand, using aseptic technique. rv rv :59 01:30 Inserted saline lock: 18 gauge in right antecubital area, using aseptic rv technique. rv
--- NOTE | 2019-01-18 23:29 | EDPHYS ---
Physician Documentation [facility] Name: Blaise Quarles Age: 78 yrs Sex: Male : 1940 Arrival Date: 01/18/2019 Time: 20:17 Bed 23 Private MD: ED Physician Morgan Vigil HPI: 01/18 21:30 This 78 yrs old Male presents to ER via Wheelchair with complaints of jr8 Abdominal Pain. 21:30 The patient presents with abdominal pain in the lower abdomen. Onset: The jr8 symptoms/episode began/occurred acutely, today. The symptoms do not radiate. Associated signs and symptoms: none. The symptoms are described as shooting. Modifying factors: The symptoms are alleviated by nothing, the symptoms are aggravated by nothing. Severity of pain: At its worst the pain was moderate in the emergency department the pain is unchanged. The patient has experienced similar episodes in the past, multiple times, chronically. The patient has been recently seen at the [facility] Emergency Department. Patient has been here several times recently for same abdominal pain in past. Demanding morphine upon arrival and then wants to just go home and not have anything else done . Historical: - Allergies: 20:44 Aspirin; ak1 - Home Meds: 20:44 amlodipine 10 mg tab 1 tab once daily [Active]; clonazepam 1 mg Oral tab 1 tab 2 times ak1 per day [Active]; nitroglycerin 0.4 mg SL subl 1 tab [Active]; Risperdal 0.5 mg Oral tab 1 tabs 2 times per day [Active]; trazodone 100 mg Oral tab 1 tab nightly [Active]; - PMHx: 20:44 Anemia; cardiomegaly; CAD; chronic renal disease; CHF; Diabetes - NIDDM; Cirrhosis; ak1 High Cholesterol; Hypertension; Myocardial infarction; pleural effusion; Visually impared; pulmonary nodule; Dialysis; - Immunization history:: Adult Immunizations up to date. - Social history:: Smoking status: Patient/guardian denies using tobacco. - Ebola Screening: : No symptoms or risks identified at this time. ROS: 21:30 Eyes: Negative for injury, pain, redness, and discharge, ENT: Negative for injury, jr8 pain, and discharge, Neck: Negative for injury, pain, and swelling, Cardiovascular: Negative for chest pain, palpitations, and edema, Respiratory: Negative for shortness of breath, cough, wheezing, and pleuritic chest pain, Back: Negative for injury and pain, MS/Extremity: Negative for injury and deformity, Skin: Negative for injury, rash, and discoloration, Neuro: Negative for headache, weakness, numbness, tingling, and seizure. 21:30 Abdomen/GI: Positive for abdominal pain, Negative for nausea, vomiting, and diarrhea. Exam: 21:30 Eyes: Pupils equal round and reactive to light, extra-ocular motions intact. Lids and jr8 lashes normal. Conjunctiva and sclera are non-icteric and not injected. Cornea within normal limits. Periorbital areas with no swelling, redness, or edema. ENT: Nares patent. No nasal discharge, no septal abnormalities noted. Tympanic membranes are normal and external auditory canals are clear. Oropharynx with no redness, swelling, or masses, exudates, or evidence of obstruction, uvula midline. Mucous membranes moist. Neck: Trachea midline, no thyromegaly or masses palpated, and no cervical lymphadenopathy. Supple, full range of motion without nuchal rigidity, or vertebral point tenderness. No Meningismus. Cardiovascular: Regular rate and rhythm with a normal S1 and S2. No gallops, murmurs, or rubs. Normal PMI, no JVD. No pulse deficits. Respiratory: Lungs have equal breath sounds bilaterally, clear to auscultation and percussion. No rales, rhonchi or wheezes noted. No increased work of breathing, no retractions or nasal flaring. Back: No spinal tenderness. No costovertebral tenderness. Full range of motion. Skin: Warm, dry with normal turgor. Normal color with no rashes, no lesions, and no evidence of cellulitis. MS/ Extremity: Pulses equal, no cyanosis. Neurovascular intact. Full, normal range of motion. Neuro: Awake and alert, GCS 15, oriented to person, place, time, and situation. Cranial nerves II-XII grossly intact. Motor strength 5/5 in all extremities. Sensory grossly intact. Cerebellar exam normal. Normal gait. 21:30 Abdomen/GI: Inspection: abdomen appears normal, Bowel sounds: active, all quadrants, Palpation: soft, in all quadrants, mild abdominal tenderness, in the left lower quadrant, mass, is not appreciated, rebound tenderness, is not appreciated, voluntary guarding, is not appreciated, involuntary guarding, is not appreciated, no appreciated organomegaly, Indicators: McBurney's point is not tender, Mccarthy's sign is negative, Rovsing's sign is negative, Liver: no appreciated palpable abnormalities. Vital Signs: 20:41 BP 152 / 52; Pulse 62; Resp 18; Temp 98.5; Pulse Ox 95% on 2 lpm NC; Weight 63.5 kg ak1 (R); Height 5 ft. 2 in. (157.48 cm) (R); Pain 03/22; 01/19 00:03 BP 151 / 60; Pulse 66; Resp 19; Pulse Ox 100% on Nebulizer Mask; ae4 01:00 BP 157 / 58; Pulse 74; Resp 17; Pulse Ox 96% on 2 lpm NC; rv 01:45 BP 148 / 55; Pulse 75; Resp 17; Pulse Ox 95% on 2 lpm NC; rv 02:30 BP 145 / 56; Pulse 76; Resp 17; Temp 98.3; Pulse Ox 97% on 2 lpm NC; rv 03:00 BP 141 / 55; Pulse 75; Resp 16; Pulse Ox 97% 2 lpm ; rv 01/18 20:41 Body Mass Index 25.61 (63.50 kg, 157.48 cm) ak1 MDM: 01/18 21:24 Patient medically screened. [facility] 23:27 Data reviewed: vital signs, nurses notes, lab test result(s). Data interpreted: Pulse jr8 oximetry: on room air is 95 %. Interpretation: normal. Counseling: I had a detailed discussion with the patient and/or guardian regarding: the historical points, exam findings, and any diagnostic results supporting the discharge/admit diagnosis, lab results. 01/19 02:41 ED course: Potassium at much more reasonable level after being treated for jr8 Hyperkalemia. Will d/c home. Patient scheduled to have dialysis . 01/18 21:24 Order name: CBC with Diff; Complete Time: 22:10 [facility] 01/18 21:24 Order name: Basic Metabolic Panel; Complete Time: 22:29 8 01/18 21:33 Order name: CT Stone Protocol [facility] 01/19 01:23 Order name: Potassium [facility] 01/18 21:24 Order name: IV; Complete Time: 21:50 8 01/18 22:59 Order name: EKG - Nurse/Tech; Complete Time: 23:43 jr8 Administered Medications: 01/18 23:35 Drug: Ativan 1 mg Route: IVP; Site: left antecubital; ae4 01/19 00:00 Follow up: Response: Other; Patient appears more relaxed. ae4 01/18 23:35 Drug: Kayexalate 45 grams Route: PO; ae4 01/19 02:29 Follow up: Response: No adverse reaction rv 01/18 23:38 Drug: Insulin Regular Human 10 units {Co-Signature: rv (Shoaib Valentin RN).} Route: ae4 IVP; Site: left antecubital; 01/19 02:30 Follow up: Response: No adverse reaction rv 01/18 23:38 Drug: D50W 50 ml Route: IVP; Site: left antecubital; ae4 01/19 02:00 Follow up: Response: No adverse reaction rv 01/18 23:40 Drug: Albuterol 2.5 mg Route: Inhalation; ae4 01/19 00:00 Drug: Albuterol 2.5 mg Route: Inhalation; ae4 01:20 Drug: Albuterol 2.5 mg Route: Inhalation; rv Disposition: 04:17 Co-signature as Attending Physician, Morgan Vigil MD. rn Disposition: 01/19/19 02:42 Discharged to Home. Impression: Hyperkalemia, Chronic kidney disease (CKD), Abdominal and pelvic pain. - Condition is Stable. - Discharge Instructions: Abdominal Pain, Adult, Hyperkalemia, Chronic Kidney Disease, Adult. - Medication Reconciliation Form, Thank You Letter, Antibiotic Education, Prescription Opioid Use form. - Follow up: Private Physician; When: Tomorrow; Reason: Recheck today's complaints, Continuance of care, Re-evaluation by your physician. - Problem is new. - Symptoms have improved. Signatures: Dispatcher [employer] EDMS Morgan Vigil MD MD rn Roszak, Josh, PA PA jr8 Sandy Thomas RN RN ak1 Shoaib Valentin RN RN rv Scott Santizo RN RN ae4 Shoaib Valentni RN rv Corrections: (The following items were deleted from the chart) 01/18 23:43 23:28 01/18/2019 23:28 Patients has left against medical advice. Impression: jr8 Hyperkalemia; Chronic kidney disease (CKD); Abdominal and pelvic pain. Patient states they are going to Home. Condition is Stable. Follow up: Private Physician; When: Tomorrow; Reason: Recheck today's complaints, Continuance of care, Re-evaluation by your physician. Problem is new. Symptoms are unchanged. jr8 01/19 03:06 02:42 01/19/2019 02:42 Discharged to Home. Impression: Hyperkalemia; Chronic kidney rv disease (CKD); Abdominal and pelvic pain. Condition is Stable. Forms are Medication Reconciliation Form, Thank You Letter, Antibiotic Education, Prescription Opioid Use. Follow up: Private Physician; When: Tomorrow; Reason: Recheck today's complaints, Continuance of care, Re-evaluation by your physician. Problem is new. Symptoms have improved. jr8
[2019-01-19 05:54] VITALS: BP 141/55; TEMP 98.3; O2SAT 97
--- NOTE | 2019-01-19 09:55 | EKG ---
Test Date: 2019-01-18 Test Time: 23:40:33 Abatement Worker: NICHELLE MEASUREMENT RESULTS: Intervals: Rate: 60 UT: 210 QRSD: 102 QT: 420 QTc: 420 [place]: P: 46 UT: 210 QRS: -35 T: 115 INTERPRETIVE STATEMENTS: Sinus rhythm with 1st degree AV block Possible Left atrial enlargement Left axis deviation Septal infarct, age undetermined Inferior infarct, age undetermined T wave abnormality, consider lateral ischemia Abnormal ECG Compared to ECG 01/15/2019 04:33:55 First degree AV block now present Left-axis deviation now present Myocardial infarct finding still present Electronically Signed On 01-19-19 09:55:04 CDT by Raheel Zeng
--- NOTE | 2019-01-19 10:31 | RAD REPORT ---
EXAM DESCRIPTION: Stone Protocol CLINICAL HISTORY: ABD PAIN COMPARISON: None. TECHNIQUE: CT ABDOMEN PELVIS WITHOUT IV CONTRAST on 01/18/2019 9:33 PM CDT This exam was performed according to our departmental dose-optimization program, which includes autom ated exposure control, adjustment of the mA and/or kV according to patient size and/or use of iterati ve reconstruction technique. FINDINGS: There is bibasilar rounded atelectasis. There is a small left and a moderate right pleural effusion. The heart is moderately enlarged. Abdomen: There is small amount of perihepatic ascites. There is no biliary dilatation. Gallbladder is normally distended. The pancreas and spleen are normal in appearance. Adrenal glands are normal. Bot h kidneys are moderately atrophic. Abdominal aorta is densely calcified without a worrisome. There is no free air. There is no retroperi toneal adenopathy.There is diffuse body wall anasarca. Pelvis: There is no bowel obstruction. Urinary bladder is unremarkable. There is no free fluid. Appen johanny is normal. Skeleton: There are no acute osseous findings. No suspicious bony lesions. IMPRESSION: Diffuse fluid overloaded state with anasarca, pleural effusions and ascites. Electronically signed by: Jake Pablo MD 01/19/2019 1:13 AM CDT Due to temporary technical issues with the PACS/Fluency reporting system, reports are being signed by the in house radiologist as a courtesy to ensure prompt reporting. The interpreting radiologist is f ully responsible for the content of the report.
== END 2019-01-19 03:06 | disposition home or self-care (01) ==
LOC: ER 20:13
DX: E87.5 Hyperkalemia (principal); I13.2 Hypertensive heart and chronic kidney disease with heart failure and with stage 5 chronic kidney disease, or end stage renal disease; E11.22 Type 2 diabetes mellitus with diabetic chronic kidney disease; N18.6 End stage renal disease; I25.10 Atherosclerotic heart disease of native coronary artery without angina pectoris; E78.00 Pure hypercholesterolemia, unspecified; I25.2 Old myocardial infarction; Z99.2 Dependence on renal dialysis
CPT/HCPCS: 36415; 74176; 76377; 80048; 84132; 85025; 93005; 96374; 96375; 99284

== ENCOUNTER 2019-02-02 19:33 | Emergency (ER) | payer OTHER ==
--- OUTSIDE RECORDS SUMMARY | 2019-02-02 19:37 | XMS REPORT ---
:1940 [facility] Address [address] [place] [address] Dr. Manley [address] [place] [address] Care Team Providers Name Role Phone LAZRODNEY [...] Comments CULTURE (BEAKER) (test PSEUDOMONAS 70-79,000 col/mL adkx=7717) AERUGINOSA Pseudomonas aeruginosa Amikacin (test code=1) Susceptible [...] code=25) Resistant <0 or >4 URINALYSIS W/ [id number] 12:06:00 Test Item Value Reference Range Comments COLOR (BEAKER) (test bhhn=234) Yellow CLARITY (BEAKER) (test ihjl=124) Hazy SPECIFIC GRAVITY UA (BEAKER) (test ttrx=862) 1.012 1.001-1.035 PH UA (BEAKER) (test tjfn=513) 6.0 5.0-8.0 PROTEIN UA (BEAKER) (test pyfw=381) 600 mg/dL Negative GLUCOSE UA (BEAKER) (test aisc=137) 100 mg/dL Negative KETONES UA (BEAKER) (test gavi=971) Negative Negative BILIRUBIN UA (BEAKER) (test lqcx=414) Negative Negative BLOOD UA (BEAKER) (test lpzy=846) Moderate Negative NITRITE UA (BEAKER) (test gtcm=025) Negative Negative LEUKOCYTE ESTERASE UA (BEAKER) (test kewt=646) Small Negative UROBILINOGEN UA (BEAKER) (test ggrv=531) 0.2 mg/dL 0.2-1.0 RBC UA (BEAKER) (test qjho=199) 27 /HPF WBC UA (BEAKER) (test sgqo=818) 12 /HPF BACTERIA (BEAKER) (test sdqf=212) Occasional MUCUS (BEAKER) (test clie=7568) Rare SQUAMOUS EPITHELIAL (BEAKER) (test fbnv=108) < /HPF HYALINE CASTS (BEAKER) (test gxhf=874) 2 /LPF GRANULAR CASTS (BEAKER) (test mmrm=435) 5 /LPF SOURCE(BEAKER) (test bkzq=6501) Urine, Yusuf CT, [id number] 15:15:00Reason for exam:->ABDOMINAL PAINWhat is the patient's [...] Date/ Time: 03/01/2018 15:15:27 Reading Location: [address] Body Reading Room BASIC METABOLIC [id number] 11:04:00 Test Item Value Reference Range Comments SODIUM (BEAKER) (test 136 meq/L 136-145 ttht=911) POTASSIUM (BEAKER) (test 4.0 meq/L 3.5-5.1 xpwk=512) CHLORIDE (BEAKER) (test 108 meq/L 98-107 bwyv=059) CO2 (BEAKER) (test 15 meq/L 22-29 ibng=091) BLOOD UREA NITROGEN 80 mg/dL 7-21 (BEAKER) (test zimq=160) CREATININE (BEAKER) (test 4.79 mg/dL 0.57-1.25 hkwg=079) GLUCOSE RANDOM (BEAKER) 84 mg/dL 70-105 (test wgwf=553) CALCIUM (BEAKER) (test 8.9 mg/dL 8.4-10.2 gswr=294) EGFR (BEAKER) (test 12 mL/min/1.73 sq m ESTIMATED GFR IS NOT grba=4747) ACCURATE CREATININE CLEARANCE IN PREDICTING GLOMERULAR FILTRATION RATE. ESTIMATED GFR IS NOT APPLICABLE FOR DIALYSIS PATIENTS. [id number] 11:02:00 Test Item Value Reference Range Comments LIPASE (BEAKER) (test aqeg=203) 61 U/L 8-78 [id number] 11:02:00 Test Item Value Reference Range Comments AMYLASE (BEAKER) (test isqb=376) 113 U/L 25-125 HEPATIC FUNCTION [id number] 11:02:00 Test Item Value Reference Range Comments TOTAL PROTEIN (BEAKER) (test zdcp=320) 6.8 gm/dL 6.0-8.3 ALBUMIN (BEAKER) (test vpwm=7046) 3.5 g/dL 3.5-5.0 BILIRUBIN TOTAL (BEAKER) (test fkkr=286) 0.4 mg/dL 0.2-1.2 BILIRUBIN DIRECT (BEAKER) (test hgpq=820) 0.2 mg/dL 0.1-0.5 ALKALINE PHOSPHATASE (BEAKER) (test ocuk=916) 78 U/L 40-150 AST (SGOT) (BEAKER) (test qwar=622) 20 U/L 5-34 ALT (SGPT) (BEAKER) (test xclo=058) 21 U/L 6-55 URINALYSIS W/ [id number] 11:01:00 Test Item Value Reference Range Comments COLOR (BEAKER) (test mwzb=574) Light Yellow CLARITY (BEAKER) (test dlad=953) Clear SPECIFIC GRAVITY UA (BEAKER) (test scyb=445) 1.006 1.001-1.035 PH UA (BEAKER) (test ggko=485) 6.0 5.0-8.0 PROTEIN UA (BEAKER) (test nidq=708) 300 mg/dL Negative GLUCOSE UA (BEAKER) (test vrvf=912) 30 mg/dL Negative KETONES UA (BEAKER) (test iujf=441) Negative Negative BILIRUBIN UA (BEAKER) (test wpcd=390) Negative Negative BLOOD UA (BEAKER) (test vwkc=730) Trace Negative NITRITE UA (BEAKER) (test xzwl=051) Negative Negative LEUKOCYTE ESTERASE UA (BEAKER) (test kppg=141) Negative Negative UROBILINOGEN UA (BEAKER) (test oyoq=175) 0.2 mg/dL 0.2-1.0 RBC UA (BEAKER) (test mykw=621) < /HPF WBC UA (BEAKER) (test ghau=068) < /HPF BACTERIA (BEAKER) (test zzdb=691) Rare MUCUS (BEAKER) (test ftdl=2919) Rare SOURCE(BEAKER) (test zgcu=5989) Urine, Voided CBC W/PLT COUNT & AUTO [id number] 10:49:00 Test Item Value Reference Range Comments WHITE BLOOD CELL COUNT (BEAKER) (test lsri=072) 5.6 K/ L 3.5-10.5 RED BLOOD CELL COUNT (BEAKER) (test qial=547) 3.10 M/ L 4.63-6.08 HEMOGLOBIN (BEAKER) (test oksz=861) 9.8 GM/DL 13.7-17.5 HEMATOCRIT (BEAKER) (test olyc=937) 29.7 % 40.1-51.0 MEAN CORPUSCULAR VOLUME (BEAKER) (test opvv=287) 95.8 fL 79.0-92.2 MEAN CORPUSCULAR HEMOGLOBIN (BEAKER) (test 31.6 pg 25.7-32.2 lvvl=525) MEAN CORPUSCULAR HEMOGLOBIN CONC (BEAKER) (test 33.0 GM/DL 32.3-36.5 sjzh=996) RED CELL DISTRIBUTION WIDTH (BEAKER) (test 14.0 % 11.6-14.4 uczx=817) PLATELET COUNT (BEAKER) (test ycar=005) 171 K/CU MM 150-450 MEAN PLATELET VOLUME (BEAKER) (test obge=856) 11.1 fL 9.4-12.4 NUCLEATED RED BLOOD CELLS (BEAKER) (test 0 /100 WBC 0-0 fbrs=544) NEUTROPHILS RELATIVE PERCENT (BEAKER) (test 69 % fxge=591) LYMPHOCYTES RELATIVE PERCENT (BEAKER) (test 16 % xctw=457) MONOCYTES RELATIVE PERCENT (BEAKER) (test 10 % lwxw=311) EOSINOPHILS RELATIVE PERCENT (BEAKER) (test 4 % njld=896) BASOPHILS RELATIVE PERCENT (BEAKER) (test 1 % jnbp=505) NEUTROPHILS ABSOLUTE COUNT (BEAKER) (test 3.88 K/ L 1.78-5.38 jqsf=590) LYMPHOCYTES ABSOLUTE COUNT (BEAKER) (test 0.88 K/ L 1.32-3.57 wrnk=369) MONOCYTES ABSOLUTE COUNT (BEAKER) (test 0.56 K/ L 0.30-0.82 ighx=249) EOSINOPHILS ABSOLUTE COUNT (BEAKER) (test 0.25 K/ L 0.04-0.54 zwwz=441) BASOPHILS ABSOLUTE COUNT (BEAKER) (test 0.03 K/ L 0.01-0.08 dxuw=828) IMMATURE GRANULOCYTES-RELATIVE PERCENT (BEAKER) 0 % 0-1 (test yizf=4922)
--- OUTSIDE RECORDS SUMMARY | 2019-02-02 19:37 | XMS REPORT | Clinical Summary ---
:1940 Author Organization [facility] Address [address] [place] [address] Care Team Providers Name Role Phone Moo [...] 03/01/2018 Orders Only General Internal Medicine after 02/01/2018 Family History Medical History Relation Name Comments [...] 452 ms QTC Calculation(Bazett) 458 ms P [place] 66 degrees R [place] -24 degrees T [place] 140 degrees Normal sinus rhythm Possible Left [...] MICROSCOPIC STAT 03/01/2018 10:19 AM CDT after 02/01/2018 Results Urinalysis w/Microscopic (03/03/2018 11:08 AM CDT)Only the most recent of2 resultswithin the time period is included. Color, UA Yellow [facility] Clarity, UA Hazy [facility] Specific [place], UA 1.012 1.001 - 1.035 [facility] Specimen Urine Performing Organization Address [facility] Phone Number [facility] [address] [place] [address] [place] Urine culture (03/03/2018 11:08 AM CDT) Result 70-79,000 col/mL Pseudomonas [facility] aeruginosa (A) [facility] Specimen Urine Organism [...] aeruginosa Tobramycin <=2: Susceptible Performing Organization Address [facility] Phone Number [address] [address] [place] ED ECG Interpretation (03/02/2018 7:12 AM CDT) Narrative Performed At Macrina Gómez MD 03/02/20187:12 AM ECG/EKG Interpretation Date/Time: 03/01/2018 10:25 AM Performed by: MACRINA GÓMEZ. Authorized by: MACRINA GÓMEZ The ECG was interpreted by ED physician. The ECG is interpreted as sinus rhythm. Rate is normal rate. Conduction: conduction normal. ST segments abnormal. T waves abnormal. [place] is normal. Other findings: no other findings. Clinical Impression: non-specific ECG and abnormal ECG CT abdomen pelvis without contrast (03/01/2018 1:46 PM CDT) Specimen Narrative Performed At FINAL REPORT [facility] ABDOMINAL AND PELVIS CT DATED 03/01/2018 [...] MD Report Verified Date/Time:03/01/2018 15:15:27 Reading Location: [facility] Body Reading Room Procedure Note [...] Report Verified Date/Time: 03/01/2018 15:15:27 Reading Location: [facility] C[facility] CT Body Reading Room Performing Organization [...] Blood Performing Organization Address City/State/Zipcode Phone Number [address] [address] [phone] CENTER Lipase (03/01/2018 10:29 AM CDT) Lipase 61 8 - 78 U/L [facility] Specimen Blood Performing Organization Address City/[facility] Phone Number [address] [address] [place] Amylase (03/01/2018 10:29 AM CDT) Amylase 113 25 - 125 U/L [facility] Specimen Blood Performing Organization Address City/[facility]/Zipcode Phone Number [address] [address] [place] Hepatic function panel (03/01/2018 10:29 AM CDT) [...] [facility] Specimen Blood Performing Organization Address City/[facility] Phone Number [facility] [address] [place] [address] [phone] [place] Basic Metabolic Panel (03/01/2018 10:29 AM CDT) [...] 12Comment: ESTIMATED GFR IS mL/min/1.73 sq m [facility] NOT ACCURATE CREATININE [facility] CENTER CLEARANCE IN PREDICTING GLOMERULAR FILTRATION RATE. ESTIMATED GFR IS NOT APPLICABLE FOR DIALYSIS PATIENTS. Specimen Blood Performing Organization Address City/[facility] Phone Number [facility] [address] [place] [phone] [place] ECG 12 lead (03/01/2018 10:20 AM CDT) Specimen Narrative Performed At Ventricular Rate 62 BPM [facility] Atrial Rate 62 BPM P-R Interval 178 ms QRS Duration 96 ms Q-T Interval 452 ms QTC Calculation(Bazett) 458 ms P [place] 66 degrees R [place] -24 degrees T [place] 140 degrees Normal sinus rhythm Possible Left [...] 452 ms QTC Calculation(Bazett) 458 ms P [place] 66 degrees R [place] -24 degrees T [place] 140 degrees Normal sinus rhythm Possible Left [...] Address City/State/Zipcode Phone Number GE MUSE after 02/01/2018 Insurance Payer Benefit Plan / Group Subscriber ID Type Phone Address MEDICARE MEDICARE A B xxxxxxxxxx Medicare MEDICAID MEDICAID [facility] xxxxxxxxx Medicaid Advance Directives For more information, please contact:[address] [phone] Code Status Date Activated Date Inactivated Comments [...]
[2019-02-02 20:47] LABS: Absolute Lymphocytes (CBC) 0.4 K/uL (0.7-4.9); Basophils % 1.1 % (0-1.3); Hematocrit 35.6 % (39.6-49.0); Lymphocytes % 12.9 % (15.3-44.8); MPV 8.4 fL (7.6-11.3)
[2019-02-02 20:49] LABS: Protime INR 1.21
--- NOTE | 2019-02-02 20:54 | RAD REPORT ---
EXAM DESCRIPTION: RAD - Chest Single View - 02/02/2019 8:46 pm CLINICAL HISTORY: ABDOMINAL DISTENTION Chest pain. COMPARISON: Chest Single View dated 01/15/2019; Chest Single View dated 01/11/2019; Chest Single View da yoli 01/08/2019; Chest Single View dated 01/03/2019 FINDINGS: Portable technique limits examination quality. Bilateral pleural effusions are noted, slightly greater on the right with bibasilar lung opacities pr esent, likely representing atelectasis. Mild interstitial pulmonary edema is seen. The heart is moder ately enlarged size. Right-sided venous catheter tip in the SVC. Sternotomy wires are present. Overal l, appearance of the chest is stable since 01/15/2019. IMPRESSION: Stable chest since 01/15/2019.
[2019-02-02] MEDS ORDERED: ONDANSETRON 4 MG/2 ML VIAL ONE ×2 (20:58→23:56)
[2019-02-02] MEDS ORDERED: NA CHLORIDE 0.9% 1,000 ML ONE (20:58)
[2019-02-02] MEDS ORDERED: MORPHINE 4 MG/ML SYR ONE (20:58)
[2019-02-02] MEDS ORDERED: FAMOTIDINE 20 MG/2 ML VIAL IV ONE (20:58)
[2019-02-02 21:08] LABS: Albumin 3.6 g/dL (3.4-5.0); Bilirubin Direct 0.2 mg/dL (0-0.2); Bilirubin Total 0.5 mg/dL (0.2-1.0); Magnesium 2.1 mg/dL (1.8-2.4); Protein, Total 7.4 g/dL (6.4-8.2); Troponin (Emerg Dept Use Only) 0.02 ng/mL (0.0-0.045)
[2019-02-02 21:12] LABS: Potassium 5.6 mmol/L (3.5-5.1)
[2019-02-02 22:19] LABS: Platelet Estimate DECR
[2019-02-02 22:20] LABS: Blood Morphology Comment NOT SEEN (NOT SEEN)
[2019-02-02] MEDS ORDERED: SOD POLYSTYREN SUL 15 GM/60 ML UCUP ONE (23:02)
[2019-02-02] MEDS ORDERED: ALBUTEROL 2.5 MG/3 ML NEB SOL ONE (23:03)
--- NOTE | 2019-02-02 23:48 | ER ---
Nurse's Notes [facility] Name: Blaise Quarles Age: 78 yrs Sex: Male : 1940 Arrival Date: 02/02/2019 Time: 19:38 Bed 27 Private MD: Diagnosis: End stage renal disease;Hyperkalemia;Abdominal tenderness;Type 2 diabetes mellitus;Pleural effusion in conditions classified elsewhere;Unspecified combined systolic (congestive) and diastolic (congestive) heart failure Presentation: 02/02 19:54 Presenting complaint: EMS states: Pt is complaining of abd pain and slight chest pain. wh Pt has a long standing Hx of gallbladder problems and is high risk for surgery. Pain is 10/10 that started this morning. Pt denies NVD. Transition of care: patient was not received from another setting of care. Onset of symptoms was February 02, 2019. Risk Assessment: Do you want to hurt yourself or someone else? Patient reports no desire to harm self or others. Initial Sepsis Screen: Does the patient meet any 2 criteria? No. Patient's initial sepsis screen is negative. Does the patient have a suspected source of infection? No. Patient's initial sepsis screen is negative. Care prior to arrival: None. 19:54 Method Of Arrival: EMS: [facility] 19:54 Acuity: SARATH 3 Triage Assessment: 19:58 General: Appears uncomfortable. Pain: Complains of pain in abdomen Pain does not wh radiate. Pain currently is 10 out of 10 on a pain scale. Quality of pain is described as aching, Pain began this morning. Historical: - Allergies: 20:02 Aspirin; wh - Home Meds: 20:02 amlodipine 10 mg tab 1 tab once daily [Active]; clonazepam 1 mg Oral tab 1 tab 2 times wh per day [Active]; nitroglycerin 0.4 mg SL subl 1 tab [Active]; Risperdal 0.5 mg Oral tab 1 tabs 2 times per day [Active]; trazodone 100 mg Oral tab 1 tab nightly [Active]; - PMHx: 20:02 chronic renal disease; Anemia; Diabetes - NIDDM; Dialysis; High Cholesterol; wh Hypertension; Myocardial infarction; pleural effusion; pulmonary nodule; Visually impared; Cirrhosis; CHF; cardiomegaly; CAD; - Immunization history:: Adult Immunizations unknown. - Social history:: Smoking status: Patient/guardian denies using tobacco. - Ebola Screening: : Patient negative for fever greater than or equal to 101.5 degrees Fahrenheit, and additional compatible Ebola Virus Disease symptoms Patient denies exposure to infectious person. - Family history:: not pertinent. Screenin:58 Abuse screen: Denies threats or abuse. Denies injuries from another. Nutritional wh screening: No deficits noted. Tuberculosis screening: No symptoms or risk factors identified. Fall Risk None identified. Assessment: 21:05 General: Appears in no apparent distress. uncomfortable. Pain: Complains of pain in wh abdomen Pain does not radiate. Pain currently is 10 out of 10 on a pain scale. Quality of pain is described as aching, Pain began this morning. Neuro: Level of Consciousness is awake, alert, obeys commands, Oriented to person, place, time, situation, Site Director are equal bilaterally. Cardiovascular: Heart tones S1 S2 Capillary refill < 3 seconds. Respiratory: Airway is patent Respiratory effort is even, unlabored, Respiratory pattern is regular, symmetrical, Breath sounds are clear bilaterally. GI: Abdomen is flat, non-distended, Bowel sounds present X 4 quads. Abd is soft and non tender X 4 quads. : Reports Hx of CKD on Dialysis with HD access on R chest. EENT: No signs and/or symptoms were reported regarding the EENT system. Derm: Skin is intact, is healthy with good turgor, Skin is pink, warm \T\ dry. normal. Musculoskeletal: Range of motion: intact in all extremities. 22:17 Reassessment: Patient appears in no apparent distress at this time. Patient and/or family updated on plan of care and expected duration. Pain level reassessed. Patient is alert, oriented x 3, equal unlabored respirations, skin warm/dry/pink. 23:18 Reassessment: Patient appears in no apparent distress at this time. Patient and/or family updated on plan of care and expected duration. Pain level reassessed. Patient is alert, oriented x 3, equal unlabored respirations, skin warm/dry/pink. 02/03 00:35 Reassessment: Patient appears in no apparent distress at this time. Patient and/or family updated on plan of care and expected duration. Pain level reassessed. Patient is alert, oriented x 3, equal unlabored respirations, skin warm/dry/pink. Vital Signs: 02/02 20:03 BP 149 / 65; Pulse 54; Resp 18; Temp 97.9; Pulse Ox 94% on R/A; 21:00 BP 174 / 65; Pulse 53; Resp 16; Pulse Ox 97% on 2 lpm NC; 22:00 BP 159 / 70; Pulse 51; Resp 18; Pulse Ox 95% on 2 lpm NC; 23:00 BP 179 / 64; Pulse 55; Resp 18; Pulse Ox 100% on 2 lpm NC; 02/03 00:52 BP 157 / 98; Pulse 59; Resp 18; Pulse Ox 98% on 2 lpm NC; ED Course: 02/02 19:38 Patient arrived in ED. 19:53 Mila Segura is Primary Nurse. 19:54 Ron Viveros MD is Attending Physician. yoni 19:58 Triage completed. 20:02 Arm band placed on left wrist. 20:02 Patient has correct armband on for positive identification. Bed in low position. Call light in reach. Side rails up X 1. court recording monitor on. Pulse ox on. NIBP on. 20:20 Inserted saline lock: 20 gauge in right antecubital area, using aseptic technique. Blood collected. 20:44 XRAY Chest (1 view) In Process Unspecified. EDMS 21:10 Basic Metabolic Panel Sent. mg2 22:35 Abdomen In Process Unspecified. EDMS 23:44 Myron Mancilla DO is Hospitalizing Provider. [facility] 02/03 02:09 IV discontinued, intact, bleeding controlled, No redness/swelling at site. Administered Medications: Discontinued: NS 0.9% 1000 ml IV at 75 ml/hr continuous 02/02 20:49 Drug: morphine 2 mg Route: IVP; Site: right antecubital; 02/03 00:56 Follow up: Response: No adverse reaction 02/02 20:49 Drug: Zofran 4 mg Route: IVP; Site: right antecubital; 02/03 00:56 Follow up: Response: No adverse reaction 02/02 20:50 Drug: NS 0.9% 1000 ml Route: IV; Rate: 75 ml/hr; Site: right antecubital; 20:50 Drug: Pepcid 20 mg Route: IVP; Site: right antecubital; 02/03 00:54 Follow up: Response: No adverse reaction 02/02 20:50 Drug: morphine 2 mg Route: IVP; Site: right antecubital; 02/03 00:55 Follow up: Response: No adverse reaction 02/02 21:44 Drug: Kayexalate 45 grams Route: PO; 23:46 Follow up: Response: No adverse reaction [facility] 22:51 Drug: Albuterol 5 mg Route: Inhalation; 23:47 Follow up: Response: No adverse reaction mg2 22:51 Drug: Kayexalate 15 grams Route: PO; 23:47 Follow up: Response: No adverse reaction mg2 23:45 CANCELLED (Duplicate Order): Zofran 4 mg IVP once; over 2 minutes mg2 23:45 CANCELLED (Duplicate Order): morphine 2 mg IVP once mg2 23:46 Drug: morphine 2 mg Route: IVP; Site: right antecubital; [facility] 02/03 00:53 Follow up: Response: No adverse reaction 02/02 23:46 Drug: Zofran 4 mg Route: IVP; Site: right antecubital; [facility] 02/03 00:53 Follow up: Response: No adverse reaction 00:55 Not Given (Pt not in pain): morphine 2 mg IVP once Outcome: 02/02 23:47 Decision to Hospitalize by Provider. [facility] 02/03 02:05 AMA Other pt left AMA prior to being transported to room 212. ak1 02:05 Patient left the ED. ak1 Signatures: Dispatcher [employer] EDMS Ron Viveros MD MD cha Chretien, Felicia, RN RN Sandy Thomas RN RN ak1 Mila Segura Cameron Iniguez RN RN mg2 Corrections: (The following items were deleted from the chart) 00:52 02/02 21:00 BP 179 / 64; Pulse 54bpm; Resp 16bpm; Pulse Ox 100% 2 lpm Nasal Cannula; [facility]
--- NOTE | 2019-02-02 23:49 | EDPHYS ---
Physician Documentation [facility] Name: Blaise Quarles Age: 78 yrs Sex: Male : 1940 Arrival Date: 02/02/2019 Time: 19:38 Bed 27 Private MD: ED Physician Ron Viveros HPI: 02/02 20:35 This 78 yrs old Male presents to ER via EMS with complaints of abdominal pain. yoni 20:35 The patient presents with abdominal pain in the upper abdomen, in the lower abdomen. yoni Onset: The symptoms/episode began/occurred 2 day(s) ago. The symptoms do not radiate. Associated signs and symptoms: none. The symptoms are described as constant, crampy. Severity of pain: At its worst the pain was mild in the emergency department the pain is unchanged. The patient has not experienced similar symptoms in the past. Historical: - Allergies: 20:02 Aspirin; wh - Home Meds: 20:02 amlodipine 10 mg tab 1 tab once daily [Active]; clonazepam 1 mg Oral tab 1 tab 2 times wh per day [Active]; nitroglycerin 0.4 mg SL subl 1 tab [Active]; Risperdal 0.5 mg Oral tab 1 tabs 2 times per day [Active]; trazodone 100 mg Oral tab 1 tab nightly [Active]; - PMHx: 20:02 chronic renal disease; Anemia; Diabetes - NIDDM; Dialysis; High Cholesterol; wh Hypertension; Myocardial infarction; pleural effusion; pulmonary nodule; Visually impared; Cirrhosis; CHF; cardiomegaly; CAD; - Immunization history:: Adult Immunizations unknown. - Social history:: Smoking status: Patient/guardian denies using tobacco. - Ebola Screening: : Patient negative for fever greater than or equal to 101.5 degrees Fahrenheit, and additional compatible Ebola Virus Disease symptoms Patient denies exposure to infectious person. - Family history:: not pertinent. ROS: 20:35 Constitutional: Negative for fever, chills, and weight loss, Eyes: Negative for injury, yoni pain, redness, and discharge, ENT: Negative for injury, pain, and discharge, Neck: Negative for injury, pain, and swelling, Cardiovascular: Negative for chest pain, palpitations, and edema, Respiratory: Negative for shortness of breath, cough, wheezing, and pleuritic chest pain, Back: Negative for injury and pain, : Negative for injury, bleeding, discharge, and swelling, MS/Extremity: Negative for injury and deformity, Skin: Negative for injury, rash, and discoloration, Neuro: Negative for headache, weakness, numbness, tingling, and seizure, Psych: Negative for depression, anxiety, suicide ideation, homicidal ideation, and hallucinations, Allergy/Immunology: Negative for hives, rash, and allergies, Endocrine: Negative for neck swelling, polydipsia, polyuria, polyphagia, and marked weight changes, Hematologic/Lymphatic: Negative for swollen nodes, abnormal bleeding, and unusual bruising. 20:35 Abdomen/GI: Positive for abdominal pain, abdominal distension, of the right upper quadrant, left upper quadrant, right lower quadrant and left lower quadrant. Exam: 20:35 Constitutional: This is a well developed, well nourished patient who is awake, alert, yoni and in no acute distress. Head/Face: Normocephalic, atraumatic. Eyes: Pupils equal round and reactive to light, extra-ocular motions intact. Lids and lashes normal. Conjunctiva and sclera are non-icteric and not injected. Cornea within normal limits. Periorbital areas with no swelling, redness, or edema. ENT: Nares patent. No nasal discharge, no septal abnormalities noted. Tympanic membranes are normal and external auditory canals are clear. Oropharynx with no redness, swelling, or masses, exudates, or evidence of obstruction, uvula midline. Mucous membranes moist. Neck: Trachea midline, no thyromegaly or masses palpated, and no cervical lymphadenopathy. Supple, full range of motion without nuchal rigidity, or vertebral point tenderness. No Meningismus. Chest/axilla: Normal chest wall appearance and motion. Nontender with no deformity. No lesions are appreciated. Cardiovascular: Regular rate and rhythm with a normal S1 and S2. No gallops, murmurs, or rubs. Normal PMI, no JVD. No pulse deficits. Respiratory: Lungs have equal breath sounds bilaterally, clear to auscultation and percussion. No rales, rhonchi or wheezes noted. No increased work of breathing, no retractions or nasal flaring. Back: No spinal tenderness. No costovertebral tenderness. Full range of motion. Male : Normal genitalia with no discharge or lesions. Skin: Warm, dry with normal turgor. Normal color with no rashes, no lesions, and no evidence of cellulitis. MS/ Extremity: Pulses equal, no cyanosis. Neurovascular intact. Full, normal range of motion. Neuro: Awake and alert, GCS 15, oriented to person, place, time, and situation. Cranial nerves II-XII grossly intact. Motor strength 5/5 in all extremities. Sensory grossly intact. Cerebellar exam normal. Normal gait. Psych: Awake, alert, with orientation to person, place and time. Behavior, mood, and affect are within normal limits. 20:38 Abdomen/GI: Inspection: abdomen appears normal, Bowel sounds: hyperactive, Palpation: yoni moderate abdominal tenderness, in all quadrants, Liver: no appreciated palpable abnormalities, Hernia: not appreciated. Vital Signs: 20:03 BP 149 / 65; Pulse 54; Resp 18; Temp 97.9; Pulse Ox 94% on R/A; 21:00 BP 174 / 65; Pulse 53; Resp 16; Pulse Ox 97% on 2 lpm NC; 22:00 BP 159 / 70; Pulse 51; Resp 18; Pulse Ox 95% on 2 lpm NC; 23:00 BP 179 / 64; Pulse 55; Resp 18; Pulse Ox 100% on 2 lpm NC; 02/03 00:52 BP 157 / 98; Pulse 59; Resp 18; Pulse Ox 98% on 2 lpm NC; MDM: 02/02 19:55 Patient medically screened. [facility] 20:38 Data reviewed: vital signs, nurses notes, lab test result(s), EKG, radiologic studies, [facility] CT scan, plain films. 02/02 20:34 Order name: Basic Metabolic Panel [facility] 02/02 20:34 Order name: CBC with Diff; Complete Time: 22:32 [facility] 02/02 20:34 Order name: LFT's; Complete Time: 21:18 [facility] 02/02 20:34 Order name: Magnesium; Complete Time: 21:18 [facility] 02/02 20:34 Order name: NT PRO-BNP; Complete Time: 21:18 [facility] 02/02 20:34 Order name: PT-INR; Complete Time: 21:18 [facility] 02/02 20:34 Order name: Troponin (emerg Dept Use Only); Complete Time: 21:18 [facility] 02/02 20:34 Order name: XRAY Chest (1 view); Complete Time: 21:18 [facility] 02/02 20:34 Order name: Lipase; Complete Time: 21:18 [facility] 02/02 20:36 Order name: Basic Metabolic Panel; Complete Time: 21:18 [facility] 02/02 22:20 Order name: Manual Differential; Complete Time: 22:32 [facility] 02/02 22:33 Order name: Chem 7; Complete Time: 01:17 [facility] 02/02 20:34 Order name: EKG; Complete Time: 20:36 [facility] 02/02 20:58 Order name: Abdomen [facility] 02/03 00:42 Order name: Social Service Consult [facility] 02/02 20:34 Order name: Cardiac monitoring; Complete Time: 20:36 [facility] 02/02 20:34 Order name: EKG - Nurse/Tech; Complete Time: 20:37 [facility] 02/02 20:34 Order name: IV Saline Lock; Complete Time: 20:37 [facility] 02/02 20:34 Order name: Labs collected and sent; Complete Time: 20:37 [facility] 02/02 20:34 Order name: O2 Per Protocol; Complete Time: 20:35 [facility] 02/02 20:34 Order name: O2 Sat Monitoring; Complete Time: 20:35 [facility] Administered Medications: Discontinued: NS 0.9% 1000 ml IV at 75 ml/hr continuous 20:49 Drug: morphine 2 mg Route: IVP; Site: right antecubital; 02/03 00:56 Follow up: Response: No adverse reaction 02/02 20:49 Drug: Zofran 4 mg Route: IVP; Site: right antecubital; 02/03 00:56 Follow up: Response: No adverse reaction 02/02 20:50 Drug: NS 0.9% 1000 ml Route: IV; Rate: 75 ml/hr; Site: right antecubital; 20:50 Drug: Pepcid 20 mg Route: IVP; Site: right antecubital; 02/03 00:54 Follow up: Response: No adverse reaction 02/02 20:50 Drug: morphine 2 mg Route: IVP; Site: right antecubital; 02/03 00:55 Follow up: Response: No adverse reaction 02/02 21:44 Drug: Kayexalate 45 grams Route: PO; 23:46 Follow up: Response: No adverse reaction mg2 22:51 Drug: Albuterol 5 mg Route: Inhalation; 23:47 Follow up: Response: No adverse reaction mg2 22:51 Drug: Kayexalate 15 grams Route: PO; 23:47 Follow up: Response: No adverse reaction mg2 23:45 CANCELLED (Duplicate Order): Zofran 4 mg IVP once; over 2 minutes mg2 23:45 CANCELLED (Duplicate Order): morphine 2 mg IVP once mg2 23:46 Drug: morphine 2 mg Route: IVP; Site: right antecubital; mg2 02/03 00:53 Follow up: Response: No adverse reaction 02/02 23:46 Drug: Zofran 4 mg Route: IVP; Site: right antecubital; mg2 02/03 00:53 Follow up: Response: No adverse reaction 00:55 Not Given (Pt not in pain): morphine 2 mg IVP once Disposition: 02/02/19 23:47 Hospitalization ordered by Myron Mancilla for Inpatient Admission. Preliminary diagnosis are End stage renal disease, Hyperkalemia, Abdominal tenderness, Type 2 diabetes mellitus, Pleural effusion in conditions classified elsewhere, Unspecified combined systolic (congestive) and diastolic (congestive) heart failure. - Bed requested for Telemetry/MedSurg (Inpatient). - Status is Inpatient Admission. ak1 - Condition is Fair. - Problem is new. - Symptoms have improved. UTI on Admission? No Signatures: Dispatcher [employer] EDMS Ron Viveros MD MD cha Krenek, Amber RN RN ak1 Mena Doty RN RN Mila Segura Cameron Iniguez RN RN mg2 Corrections: (The following items were deleted from the chart) 02/02 20:58 20:36 Abdomen Pelvis W Con+CT.RAD.BRZ ordered. EDMS EDMS 21:27 20:57 Abdomen Pelvis W Con+CT.RAD.BRZ ordered. EDMS EDMS 23:45 23:44 Zofran 4 mg IVP once; over 2 minutes ordered. mg2 mg2 23:45 23:44 morphine 2 mg IVP once ordered. mg2 mg2 02/03 01:08 02/02 23:47 Hospitalization Ordered by Myron Mancilla DO for Inpatient Admission. cg Preliminary diagnosis is End stage renal disease; Hyperkalemia; Abdominal tenderness; Type 2 diabetes mellitus; Pleural effusion in conditions classified elsewhere; Unspecified combined systolic (congestive) and diastolic (congestive) heart failure. Bed requested for Telemetry/MedSurg (Inpatient). Status is Inpatient Admission. Condition is Fair. Problem is new. Symptoms have improved. UTI on Admission? No. yoni 02/03 02:05 01:08 02/02/2019 23:47 Hospitalization Ordered by Myron Mancilla DO for Inpatient ak1 Admission. Preliminary diagnosis is End stage renal disease; Hyperkalemia; Abdominal tenderness; Type 2 diabetes mellitus; Pleural effusion in conditions classified elsewhere; Unspecified combined systolic (congestive) and diastolic (congestive) heart failure. Bed requested for Telemetry/MedSurg (Inpatient). Status is Inpatient Admission. Condition is Fair. Problem is new. Symptoms have improved. UTI on Admission? No. cg
[2019-02-02] MEDS ORDERED: MORPHINE 2 MG/ML SYR ONE (23:55)
[2019-02-03 00:01] LABS: Potassium 5.3 mmol/L (3.5-5.1)
--- NOTE | 2019-02-03 00:34 | P.HP ---
Certification for Inpatient Patient admitted to: Observation With expected LOS: <2 Midnights Patient will require the following post-hospital care: Home Health Services Practitioner: I am a practitioner with admitting privileges, knowledge of patient current condition, hospital course, and medical plan of care. Services: Services provided to patient in accordance with Admission requirements found in Title 42 Section 412.3 of the Code of Federal Regulations Patient History Date of Service: 02/03/19 Primary Care Provider: Nephrology-Dr. Jacobson Reason for admission: SOB, Edema History of Present Illness: 78-year-old male presented to the emergency room with shortness of breath and edema to the lower extremities. Patient with multiple medical problems including end-stage renal disease on hemodialysis, hypertension, combined CHF, liver cirrhosis, chronic anemia with thrombocytopenia, and anxiety. Patient reports increasing shortness of breath and edema to the lower extremities. He feels that he does not get enough fluid taken off the dialysis. Family at bedside. Family reports that he is drinking a lot of fluids at home. Patient takes diuretic medication. Patient appears to be compliant with dialysis. Patient has had issues of compliance in the past. Family reports patient recently seen by surgery as an outpatient for his gallstones. Surgery is not planned on tell his condition significantly improves. He is without any significant abdominal pain at this time. He takes chronic pain medication. In the ER patient evaluated. Sodium 134, potassium 5.3. BUN of 27, creatinine 4.3. GFR of 13. Glucose 96. White count 2.9, hemoglobin 11. Platelet count of 92. Chest x-ray showed bilateral pleural effusions. CT scan showed anasarca with noted ascites and bilateral pleural effusions. Patient was given Kayexalate in the emergency room. Patient was admitted for observation and dialysis. Patient appeared stable upon admission. Patient without any significant shortness of breath. Patient is oxygen dependent at home. Allergies aspirin Allergy (Verified 01/11/18 15:42) Nausea/Vomiting No Known Allergies Allergy (Uncoded 01/18/18 10:03) Unknown Home medications list reviewed: Yes Home Medications: Atorvastatin Calcium [Lipitor*] 10 mg PO BEDTIME 12/15/17 Amlodipine [Norvasc*] 1 tab PO DAILY 03/15/18 Glipizide [Glipizide ER] 1 tab PO BID 08/03/18 Tramadol HCl/Acetaminophen [Tramadol-Acetaminophn 37.5-325] 1 each PO Q8H PRN clonazePAM [Clonazepam] 1 mg PO BID 08/03/18 - Past Medical/Surgical History Diabetic: Yes -: CHF, combined -: End-stage renal disease on hemodialysis -: Chronic anemia with thrombocytopenia -: CAD, prior CABG -: Liver cirrhosis -: Diabetes mellitus type 2 -: Hyperlipidemia -: Chronic abdominal pain -: Hypertension -: Anxiety -: Repair of left finger fracture -: CABG -: cardiac stents -: gillian placement Psychosocial/ Personal History: He is 56 years, has 13 children, he does not work. - Family History Father -: GI disease Notes: none per pt - Social History Smoking Status: Unknown if ever smoked Alcohol use: No CD- Drugs: No Caffeine use: Yes Place of Residence: Home Review of Systems General: As per HPI Eyes: Unremarkable ENT: Unremarkable Respiratory: Shortness of Breath, As per HPI Cardiovascular: Edema, As per HPI Gastrointestinal: As per HPI (Chronic abdominal pain) Genitourinary: Unremarkable Musculoskeletal: Pedal edema, As per HPI Integumentary: Unremarkable Neurological: Unremarkable Lymphatics: Unremarkable Physical Examination - Physical Exam General: Alert, In no apparent distress, Oriented x3, Cooperative HEENT: Atraumatic, Normocephalic, PERRLA, Mucous membr. moist/pink Neck: Supple Respiratory: Crackles/rales (Crackles to the bases) Cardiovascular: Normal pulses, Regular rate/rhythm Gastrointestinal: Normal bowel sounds, Soft and benign, Non-distended, No tenderness, No masses, No rebound, No guarding, Ascites (Mild ascites) Musculoskeletal: No erythema, No tenderness, No warmth Integumentary: Tenderness/swelling (2+ pitting edema to the lower extremities bilateral up to the thigh) Neurological: Normal speech, Normal strength at 5/5 x4 extr, Normal tone, Normal affect - Studies Laboratory Data (last 24 hrs) 02/02/19 23:35: Sodium 134 L, Potassium 5.3 H, BUN 27 H, Creatinine 4.32 H, Glucose 96 02/02/19 20:15: PT 14.2 H, INR 1.21 02/02/19 20:15: WBC 2.9 L, Hgb 11.7 L, Hct 35.6 L, Plt Count 92 L 02/02/19 20:15: Sodium 136, Potassium 5.6 H*, BUN 26 H, Creatinine 4.13 H, Glucose 90, Magnesium 2.1, Total Bilirubin 0.5, AST 15, ALT 17, Alkaline Phosphatase 98, Lipase 40 L Assessment and Plan - Plan Impression: Shortness of breath related to bilateral pleural effusions/anasarca and ascites secondary to acute on chronic combined systolic/diastolic CHF and chronic liver cirrhosis complicated with poor compliance of fluid restriction End-stage renal disease on hemodialysis with hyperkalemia Hypertension Hyperlipidemia Chronic abdominal pain with chronic cholelithiasis Anxiety Chronic anemia with thrombocytopenia related to chronic liver cirrhosis CAD Plan: Shortness of breath related to bilateral pleural effusions/anasarca and ascites secondary to acute on chronic combined systolic/diastolic CHF and chronic liver cirrhosis complicated with poor compliance of fluid restriction: Patient will be admitted for observation. Will continue with his Bumex 2 mg twice daily. Will teach on fluid restriction. Patient appears to be non compliant with his fluid restriction at home. This will be addressed in detail. Patient will require dialysis tomorrow. Will consult Nephrology to help with this. Anticipate discharge in the next 24-48 hr with clinical improvement. Patient will continue with home oxygen at discharge. End-stage renal disease on hemodialysis with hyperkalemia: Patient to receive Kayexalate in the emergency room. Patient will require dialysis tomorrow. Patient normally gets dialysis every Thursday, and Thursday. Nephrology consulted to help with this. Hypertension: Will continue with his medication of Norvasc 10 mg daily, ramipril 5 mg daily, and hydralazine 50 mg 1 pill twice daily. Medication will be adjusted accordingly. Hyperlipidemia: Will continue with his medication Lipitor 10 mg daily Chronic abdominal pain with chronic cholelithiasis: Family reports that he has been seen by surgery-Dr. Jones as an outpatient. Surgery is not planned until his overall condition has significantly improved due to his multiple comorbidities. Patient without any significant abdominal pain this time. Patient does have chronic pain and takes Tylenol #3. Will provide this medication for him. Anxiety: Will continue with his medication of buspirone 5 mg daily and Klonopin 1 mg twice daily as needed for agitation/anxiety. Patient also takes this prior to dialysis. Chronic anemia with thrombocytopenia related to chronic liver cirrhosis: Overall stable. Will monitor this closely. No DVT prophylaxis required this time due to thrombocytopenia. CAD: Overall stable. Discharge Plan: Home Plan to discharge in: 48 Hours - Advance Directives Does patient have a Living Will: No Does patient have a Durable POA for Healthcare: No - Code Status/Comfort Care Code Status Assessed: No (This will need to be addressed during his hospitalization) Time Spent Managing Pts Care (In Minutes): 55
[2019-02-03 02:12] VITALS: TEMP 97.9
[2019-02-03 02:18] VITALS: BP 157/98; O2SAT 98
--- NOTE | 2019-02-03 08:18 | RAD REPORT ---
EXAM DESCRIPTION: CT - Abdomen Pelvis Wo Contrast - 02/03/2019 6:15 am CLINICAL HISTORY: Abdominal pain. COMPARISON: 01/19/2019 TECHNIQUE: CT scan of the abdomen and pelvis was performed without IV contrast. This exam was perfor med according to our departmental dose-optimization program, which includes automated exposure contro l, adjustment of the mA and/or kV according to patient size and/or use of iterative reconstruction te chnique. FINDINGS: Moderate right and small left pleural effusions with areas of consolidation at the left garrett ng base. Cardiomegaly without pericardial effusion. Liver, gallbladder, spleen, pancreas, and adrenal glands are normal. The kidneys are atrophic. Pelvic organs are unremarkable Appendix is normal. No bowel obstruction or acute diverticulitis. Small amount of abdominopelvic asci josé luis. There is mild body wall anasarca. Aorta is markedly atherosclerotic. No body wall hernia. No acu te bony findings IMPRESSION: Bilateral pleural effusions, abdominopelvic ascites, and body wall anasarca, consisten t with fluid overload. Electronically signed by: Gabe uK MD 02/02/2019 10:59 PM CDT Due to temporary technical issues with the PACS/Fluency reporting system, reports are being signed by the in house radiologist as a courtesy to ensure prompt reporting. The interpreting radiologist is f ully responsible for the content of the report.
--- NOTE | 2019-02-03 11:22 | EKG ---
Test Date: 2019-02-02 Test Time: 19:40:42 [employer] Patroller: BLANCO MEASUREMENT RESULTS: Intervals: Rate: 52 WA: 206 QRSD: 98 QT: 464 QTc: 431 [place]: P: 48 WA: 206 QRS: -36 T: 124 INTERPRETIVE STATEMENTS: Sinus bradycardia Left axis deviation Inferior infarct, age undetermined Anteroseptal infarct, age undetermined T wave abnormality, consider lateral ischemia Abnormal ECG Compared to ECG 01/18/2019 23:40:33 Sinus rhythm no longer present First degree AV block no longer present Myocardial infarct finding still present T-wave abnormality still present Possible ischemia still present Electronically Signed On 02-03-19 11:21:09 CDT by Brandon Pérez
== END 2019-02-03 02:05 | disposition home or self-care (01) ==
LOC: ER 19:33 → UNDOADMOB 02-03 00:44 → ERHOLD 02-03 00:44 → ER 02-03 02:05 → UNDODISOB 02-03 02:05
DX: I13.2 Hypertensive heart and chronic kidney disease with heart failure and with stage 5 chronic kidney disease, or end stage renal disease (principal); I50.40 Unspecified combined systolic (congestive) and diastolic (congestive) heart failure; N18.6 End stage renal disease; E11.22 Type 2 diabetes mellitus with diabetic chronic kidney disease; E87.5 Hyperkalemia; E78.5 Hyperlipidemia, unspecified; J90 Pleural effusion, not elsewhere classified; F41.9 Anxiety disorder, unspecified; Z99.2 Dependence on renal dialysis; Z88.6 Allergy status to analgesic agent
CPT/HCPCS: 93005; 85025; 80048 ×2; 36415; 83735; 85610; 80076; 84484; 83690; 83880; 74176; 71045; 96375; 96374; 99285; J2270; J7030; J2405 ×2

== ENCOUNTER 2019-02-16 16:38 | Emergency (ER) | payer OTHER ==
--- OUTSIDE RECORDS SUMMARY | 2019-02-16 16:40 | XMS REPORT | Clinical Summary ---
:1940 Author Organization [facility] Address [address] [place] [address] Care Team Providers Name Role Phone Moo [...] 03/01/2018 Orders Only General Internal Medicine after 02/15/2018 Family History Medical History Relation Name Comments [...] 452 ms QTC Calculation(Bazett) 458 ms P [place] 66 degrees R [place] -24 degrees T [place] 140 degrees Normal sinus rhythm Possible Left [...] MICROSCOPIC STAT 03/01/2018 10:19 AM CDT after 02/15/2018 Results Urinalysis w/Microscopic (03/03/2018 11:08 AM CDT)Only the most recent of2 resultswithin the time period is included. Color, UA Yellow [facility] Clarity, UA Hazy [facility] Specific [place], UA 1.012 1.001 - 1.035 [facility] pH, UA 6.0 5.0 - 8.0 [facility] Protein, UA 600 mg/dL (A) Negative [facility] Glucose, UA 100 mg/dL (A) Negative [facility] Ketones, UA Negative Negative [facility] Bilirubin, UA Negative Negative [facility] Blood, UA Moderate (A) Negative [facility] Nitrite, UA Negative Negative [facility] Leukocytes, UA Small (A) Negative [facility] Urobilinogen, UA 0.2 0.2 - 1.0 mg/dL [facility] RBC, UA 27 /HPF [facility] WBC, UA 12 /HPF [facility] Bacteria, UA Occasional [facility] Mucus Rare [facility] Squam Epithel, UA <1 /HPF [facility] Hyaline Casts, UA 2 /LPF [facility] Granular Casts, UA 5 /LPF [facility] Specimen Source Urine, Yusuf [facility] Specimen Urine Performing Organization Address [facility] Phone Number [facility] [address] [place] [address] [place] Urine culture (03/03/2018 11:08 AM CDT) Result 70-79,000 col/mL Pseudomonas [facility] aeruginosa (A) [facility] Specimen Urine [...] <=2: Susceptible Performing Organization Address [facility] Phone Number [address] [address] [phone] [place] ED ECG Interpretation (03/02/2018 7:12 AM CDT) Narrative Performed At Macrina Gómez MD 03/02/20187:12 AM ECG/EKG Interpretation Date/Time: 03/01/2018 10:25 AM Performed by: MACRINA GÓMEZ. Authorized by: MACRINA GÓMEZ The ECG was interpreted by ED physician. The ECG is interpreted as sinus rhythm. Rate is normal rate. Conduction: conduction normal. ST segments abnormal. T waves abnormal. [place] is normal. Other findings: no other findings. Clinical Impression: non-specific ECG and abnormal ECG CT abdomen pelvis without contrast (03/01/2018 1:46 PM CDT) Specimen Narrative Performed At FINAL REPORT Halldis [facility] ABDOMINAL AND PELVIS CT DATED 03/01/2018 [...] MD Report Verified Date/Time:03/01/2018 15:15:27 Reading Location: [facility] C013Y CT Body Reading Room [...] Verified Date/Time: 03/01/2018 15:15:27 Reading Location: [facility] C013Y CT Body Reading Room Performing Organization Address City/State/Zipcode Phone Number GE RIS CBC with platelet count + automated diff (03/01/2018 10:29 AM CDT) WBC 5.6 3.5 - 10.5 K/L [facility] RBC 3.10 (L) 4.63 - 6.08 M/L [facility] Hemoglobin 9.8 (L) 13.7 - 17.5 GM/DL [facility] Hematocrit 29.7 (L) 40.1 - 51.0 % [facility] MCV 95.8 (H) 79.0 - 92.2 fL [facility] MCH 31.6 25.7 - 32.2 pg [facility] MCHC 33.0 32.3 - 36.5 GM/DL [facility] RDW 14.0 11.6 - 14.4 % [facility] Platelets 171 150 - 450 K/CU MM [facility] MPV 11.1 9.4 - 12.4 fL [facility] nRBC 0 0 - 0 /100 WBC [facility] % Neutros 69 % [facility] % Lymphs 16 % [facility] % Monos 10 % [facility] % Eos 4 % [facility] % Baso 1 % [facility] # Neutros 3.88 1.78 - 5.38 K/L [facility] # Lymphs 0.88 (L) 1.32 - 3.57 K/L [facility] # Monos 0.56 0.30 - 0.82 K/L [facility] # Eos 0.25 0.04 - 0.54 K/L [facility] # Baso 0.03 0.01 - 0.08 K/L [facility] Immature Granulocytes-Relative 0 0 - 1 % [facility] Specimen Blood Performing Organization Address City/State/Zipcode Phone Number [address] [address] [phone] CENTER Lipase (03/01/2018 10:29 AM CDT) Lipase 61 8 - 78 U/L [facility] Specimen Blood Performing Organization Address City/[facility] Phone Number [address] [address] [place] Amylase (03/01/2018 10:29 AM CDT) Amylase 113 25 - 125 U/L [facility] Specimen Blood Performing Organization Address City/[facility]/Zipcode Phone Number [address] [address] [place] Hepatic function panel (03/01/2018 10:29 AM CDT) Protein, Total 6.8 6.0 - 8.3 gm/dL [facility] Albumin 3.5 3.5 - 5.0 g/dL [facility] Total Bilirubin 0.4 0.2 - 1.2 mg/dL [facility] Bilirubin, Direct 0.2 0.1 - 0.5 mg/dL [facility] Alkaline Phosphatase 78 40 - 150 U/L [facility] AST 20 5 - 34 U/L [facility] ALT 21 6 - 55 U/L [facility] Specimen Blood Performing Organization Address City/[facility] Phone Number [facility] [address] [place] [address] [place] Basic Metabolic Panel (03/01/2018 10:29 AM CDT) Sodium 136 136 - 145 meq/L [facility] Potassium 4.0 3.5 - 5.1 meq/L [facility] Chloride 108 (H) 98 - 107 meq/L [facility] CO2 15 (L) 22 - 29 meq/L [facility] BUN 80 (H) 7 - 21 mg/dL [facility] Creatinine 4.79 (H) 0.57 - 1.25 mg/dL [facility] Glucose 84 70 - 105 mg/dL [facility] Calcium 8.9 8.4 - 10.2 mg/dL [facility] EGFR 12Comment: ESTIMATED GFR IS mL/min/1.73 sq m [facility] NOT ACCURATE CREATININE [facility] CENTER CLEARANCE IN PREDICTING GLOMERULAR FILTRATION RATE. ESTIMATED GFR IS NOT APPLICABLE FOR DIALYSIS PATIENTS. Specimen Blood Performing Organization Address City/[facility] Phone Number [facility] [address] [place] [phone] [place] ECG 12 lead (03/01/2018 10:20 AM CDT) Specimen Narrative Performed At Ventricular Rate 62 BPM GE MUSE Atrial Rate 62 BPM P-R Interval 178 ms QRS Duration 96 ms Q-T Interval 452 ms QTC Calculation(Bazett) 458 ms P [place] 66 degrees R [place] -24 degrees T [place] 140 degrees Normal sinus rhythm Possible Left [...] 452 ms QTC Calculation(Bazett) 458 ms P [place] 66 degrees R [place] -24 degrees T [place] 140 degrees Normal sinus rhythm Possible Left [...] Address City/State/Zipcode Phone Number GE MUSE after 02/15/2018 Insurance Payer Benefit Plan / Group Subscriber ID Type Phone Address MEDICARE MEDICARE A B xxxxxxxxxx Medicare MEDICAID MEDICAID [facility] xxxxxxxxx Medicaid Advance Directives For more information, please contact:[address] [phone] Code Status Date Activated Date Inactivated Comments [...]
--- OUTSIDE RECORDS SUMMARY | 2019-02-16 16:41 | XMS REPORT ---
:1940 Author [facility] Address [address] [place] [address] Dr. Man[address] [place] [address] Care Team Providers Name Role Phone LAZ [...] Comments CULTURE (BEAKER) (test PSEUDOMONAS 70-79,000 col/mL zqni=4658) AERUGINOSA Pseudomonas aeruginosa Amikacin (test code=1) Susceptible [...] code=25) Resistant <0 or >4 URINALYSIS W/ [id number] 12:06:00 Test Item Value Reference Range Comments COLOR (BEAKER) (test bdxu=697) Yellow CLARITY (BEAKER) (test iesv=633) Hazy SPECIFIC GRAVITY UA (BEAKER) (test bsfe=229) 1.012 1.001-1.035 PH UA (BEAKER) (test mlea=894) 6.0 5.0-8.0 PROTEIN UA (BEAKER) (test bmcv=104) 600 mg/dL Negative GLUCOSE UA (BEAKER) (test cpcr=218) 100 mg/dL Negative KETONES UA (BEAKER) (test rkny=747) Negative Negative BILIRUBIN UA (BEAKER) (test fptd=664) Negative Negative BLOOD UA (BEAKER) (test vgif=211) Moderate Negative NITRITE UA (BEAKER) (test kfch=362) Negative Negative LEUKOCYTE ESTERASE UA (BEAKER) (test wqwi=039) Small Negative UROBILINOGEN UA (BEAKER) (test sxxu=504) 0.2 mg/dL 0.2-1.0 RBC UA (BEAKER) (test kfgw=297) 27 /HPF WBC UA (BEAKER) (test mucp=024) 12 /HPF BACTERIA (BEAKER) (test mbfg=208) Occasional MUCUS (BEAKER) (test vimh=5770) Rare SQUAMOUS EPITHELIAL (BEAKER) (test zvgl=406) < /HPF HYALINE CASTS (BEAKER) (test iluq=595) 2 /LPF GRANULAR CASTS (BEAKER) (test ewza=056) 5 /LPF SOURCE(BEAKER) (test hbtr=6106) Urine, Yusuf CT, [id number] 15:15:00Reason for exam:->ABDOMINAL PAINWhat is the patient's [...] Verified Date/ Time: 03/01/2018 15:15:27 Reading Location: [address] Body Reading Room BASI METABOLIC [id number] 11:04:00 Test Item Value Reference Range Comments SODIUM (BEAKER) (test 136 meq/L 136-145 ziuq=339) POTASSIUM (BEAKER) (test 4.0 meq/L 3.5-5.1 rrrd=535) CHLORIDE (BEAKER) (test 108 meq/L 98-107 uxsq=724) CO2 (BEAKER) (test 15 meq/L 22-29 qlvw=781) BLOOD UREA NITROGEN 80 mg/dL 7-21 (BEAKER) (test kyxj=859) CREATININE (BEAKER) (test 4.79 mg/dL 0.57-1.25 yihj=669) GLUCOSE RANDOM (BEAKER) 84 mg/dL 70-105 (test jcxl=009) CALCIUM (BEAKER) (test 8.9 mg/dL 8.4-10.2 maot=012) EGFR (BEAKER) (test 12 mL/min/1.73 sq m ESTIMATED GFR IS NOT lzly=3557) ACCURATE CREATININE CLEARANCE IN PREDICTING GLOMERULAR FILTRATION RATE. ESTIMATED GFR IS NOT APPLICABLE FOR DIALYSIS PATIENTS. [id number] 11:02:00 Test Item Value Reference Range Comments LIPASE (BEAKER) (test ezic=946) 61 U/L 8-78 [id number] 11:02:00 Test Item Value Reference Range Comments AMYLASE (BEAKER) (test zwrs=175) 113 U/L 25-125 HEPATIC FUNCTION [id number] 11:02:00 Test Item Value Reference Range Comments TOTAL PROTEIN (BEAKER) (test emxu=089) 6.8 gm/dL 6.0-8.3 ALBUMIN (BEAKER) (test ylld=7374) 3.5 g/dL 3.5-5.0 BILIRUBIN TOTAL (BEAKER) (test qjfd=262) 0.4 mg/dL 0.2-1.2 BILIRUBIN DIRECT (BEAKER) (test aaud=297) 0.2 mg/dL 0.1-0.5 ALKALINE PHOSPHATASE (BEAKER) (test wmud=911) 78 U/L 40-150 AST (SGOT) (BEAKER) (test cxfe=686) 20 U/L 5-34 ALT (SGPT) (BEAKER) (test mgvr=156) 21 U/L 6-55 URINALYSIS W/ [id number] 11:01:00 Test Item Value Reference Range Comments COLOR (BEAKER) (test cuxz=367) Light Yellow CLARITY (BEAKER) (test xfxi=366) Clear SPECIFIC GRAVITY UA (BEAKER) (test ezvw=480) 1.006 1.001-1.035 PH UA (BEAKER) (test ulbt=678) 6.0 5.0-8.0 PROTEIN UA (BEAKER) (test syxl=100) 300 mg/dL Negative GLUCOSE UA (BEAKER) (test qeel=357) 30 mg/dL Negative KETONES UA (BEAKER) (test rtih=073) Negative Negative BILIRUBIN UA (BEAKER) (test wfbs=233) Negative Negative BLOOD UA (BEAKER) (test fyrh=394) Trace Negative NITRITE UA (BEAKER) (test pdyp=302) Negative Negative LEUKOCYTE ESTERASE UA (BEAKER) (test sfsz=568) Negative Negative UROBILINOGEN UA (BEAKER) (test nsqd=434) 0.2 mg/dL 0.2-1.0 RBC UA (BEAKER) (test ojhx=047) < /HPF WBC UA (BEAKER) (test ghhq=486) < /HPF BACTERIA (BEAKER) (test zwmh=094) Rare MUCUS (BEAKER) (test mlcw=6617) Rare SOURCE(BEAKER) (test bapp=6044) Urine, Voided CBC W/PLT COUNT & AUTO [id number] 10:49:00 Test Item Value Reference Range Comments WHITE BLOOD CELL COUNT (BEAKER) (test axhb=286) 5.6 K/ L 3.5-10.5 RED BLOOD CELL COUNT (BEAKER) (test vubt=177) 3.10 M/ L 4.63-6.08 HEMOGLOBIN (BEAKER) (test oxxj=338) 9.8 GM/DL 13.7-17.5 HEMATOCRIT (BEAKER) (test uksw=093) 29.7 % 40.1-51.0 MEAN CORPUSCULAR VOLUME (BEAKER) (test dbzz=033) 95.8 fL 79.0-92.2 MEAN CORPUSCULAR HEMOGLOBIN (BEAKER) (test 31.6 pg 25.7-32.2 hrmf=149) MEAN CORPUSCULAR HEMOGLOBIN CONC (BEAKER) (test 33.0 GM/DL 32.3-36.5 lsdw=104) RED CELL DISTRIBUTION WIDTH (BEAKER) (test 14.0 % 11.6-14.4 pipz=145) PLATELET COUNT (BEAKER) (test bdxt=236) 171 K/CU MM 150-450 MEAN PLATELET VOLUME (BEAKER) (test sxdr=796) 11.1 fL 9.4-12.4 NUCLEATED RED BLOOD CELLS (BEAKER) (test 0 /100 WBC 0-0 awes=536) NEUTROPHILS RELATIVE PERCENT (BEAKER) (test 69 % lniu=007) LYMPHOCYTES RELATIVE PERCENT (BEAKER) (test 16 % ybxj=599) MONOCYTES RELATIVE PERCENT (BEAKER) (test 10 % ddou=304) EOSINOPHILS RELATIVE PERCENT (BEAKER) (test 4 % eneq=950) BASOPHILS RELATIVE PERCENT (BEAKER) (test 1 % ipik=033) NEUTROPHILS ABSOLUTE COUNT (BEAKER) (test 3.88 K/ L 1.78-5.38 qvlj=124) LYMPHOCYTES ABSOLUTE COUNT (BEAKER) (test 0.88 K/ L 1.32-3.57 lmjv=984) MONOCYTES ABSOLUTE COUNT (BEAKER) (test 0.56 K/ L 0.30-0.82 yuiz=806) EOSINOPHILS ABSOLUTE COUNT (BEAKER) (test 0.25 K/ L 0.04-0.54 dxcl=871) BASOPHILS ABSOLUTE COUNT (BEAKER) (test 0.03 K/ L 0.01-0.08 byib=671) IMMATURE GRANULOCYTES-RELATIVE PERCENT (BEAKER) 0 % 0-1 (test snle=3508)
--- OUTSIDE RECORDS SUMMARY | 2019-02-16 16:41 | XMS REPORT | Summary of Care ---
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 Reason for Visit Reason Comments Transition Of Care Encounter Details Date Type Department Care Team Description 02/09/2019 Transition of Care [facility] Lauren Shearer, cut off sawyer log [facility] Care [facility] [address] [place] [id number] Allergies Active Allergy Reactions Severity Noted Date Comments Aspirin Unknown - See comments 02/07/2019 documented as of this encounter (statuses as of 02/09/2019) Medications Medication Sig Dispensed Refills Start Date End Date Status Blood-Glucose Meter Kit Use as 1 Kit 0 01/29/2018 Active directed atorvastatin 10 mg Take 1 tablet 90 tablet 1 03/17/2018 Active tabletIndications: by mouth Coronary artery disease daily. involving coronary bypass graft of [place] heart without angina pectoris, Pure hypercholesterolemia Blood-Glucose Meter Use daily dx 1 Kit 0 04/19/2018 Active KitIndications: Type 2 code E11.21 diabetes mellitus with retinopathy, with long-term current use of insulin, macular edema presence unspecified, unspecified laterality, unspecified retinopathy severity blood sugar diagnostic Use daily dx 100 Strip 3 04/19/2018 Active (BLOOD GLUCOSE TEST) strip code E11.21 lancets (ONE TOUCH DELICA) Use daily dx 100 Each 3 04/19/2018 Active 33 gauge MiscIndications: code E11.21 Type 2 diabetes mellitus with diabetic nephropathy, with long-term current use of insulin clonazePAM 0.5 mg Take 1 tablet 90 tablet 1 08/19/2018 Active tabletIndications: Anxiety by mouth 3 (three) times daily as needed (panic or anxiety attack). brinzolamide 1 % Place 1 Drop 10 mL 1 09/10/2018 Active ophthalmic suspension in both eyes 3 dropsIndications: (three) times End-stage glaucoma daily. NITROGLYCERIN 0.[address] 1 TABLET 75 tablet 0 09/23/2018 Active sublingual UNDER THE tabletIndications: Stable TONGUE EVERY 5 angina pectoris (FIVE) MINUTES NEEDED FOR CHEST PAIN. latanoprost 0.005 % Place 1 Drop 3 Bottle 2 10/04/2018 Active ophthalmic in both eyes dropsIndications: every evening. End-stage glaucoma docusate 100 mg Take 1 capsule 30 capsule 3 10/20/2018 Active capsuleIndications: by mouth Constipation, unspecified daily. constipation type amLODIPine 10 mg tablet Take 1 tablet 90 tablet 0 12/20/2018 Active by mouth daily. terbinafine HCl (LAMISIL Apply to 1 Tube 3 01/14/2019 Active AT) 1 % creamIndications: area(s) 2 Tinea pedis of both feet (two) times daily. acetaminophen-codeine Take 1 tablet 20 tablet 0 01/22/2019 Active (TYLENOL-CODEINE #3) by mouth every 300-30 mg 6 (six) hours tabletIndications: as needed for Generalized abdominal pain Pain (scale 4-6) or Pain (scale 7-10). pantoprazole 40 mg EC Take 1 tablet 30 tablet 0 01/22/2019 Active tabletIndications: by mouth Generalized abdominal pain daily. acetaminophen-codeine Take 1 tablet 20 tablet 0 01/26/2019 Active (TYLENOL-CODEINE #3) by mouth every 300-30 mg 6 (six) hours tabletIndications: as needed for Generalized abdominal pain Pain (scale 7-10). ondansetron (ZOFRAN) 4 mg Take 1 tablet 12 tablet 0 01/26/2019 Active tabletIndications: by mouth every Generalized abdominal pain 8 (eight) hours as needed for Nausea and Vomiting (N/V). traMADol 50 mg Take 1 tablet 15 tablet 0 02/08/2019 Active tabletIndications: by mouth every Hyperkalemia 6 (six) hours as needed for Pain (scale 4-6). documented as of this encounter (statuses as of 02/09/2019) Active Problems Problem Noted Date Hyperkalemia 02/07/2019 Abdominal pain 01/21/2019 Generalized abdominal pain 01/07/2019 Nonrheumatic aortic valve stenosis 01/06/2019 Pulmonary hypertension 01/06/2019 Bilateral carotid artery disease 01/06/2019 (HFpEF) heart failure with preserved ejection fraction 01/06/2019 Cholecystitis 01/05/2019 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 Overview: Added automatically from request for surgery [id number] Colitis 10/12/2018 E44.0 Moderate protein calorie malnutrition 08/25/2018 Anasarca 08/20/2018 ESRD (end stage renal disease) 08/20/2018 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, macular edema presence unspecified Coronary artery disease involving coronary bypass graft of [place] heart 2016 without angina pectoris Wound, surgical, infected, initial encounter 08/07/2016 S/P CABG x 3 08/07/2016 Type 2 diabetes mellitus with diabetic nephropathy, 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 06/27/2016 Schwannoma 05/20/2016 Discoid lupus erythematosus 05/05/2016 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 Cataract extraction status; OD 03/08/13 OS 02/08/13 02/09/2013 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 Overview: No anuerysm by MRA on 09/23/2007 Essential hypertension, benign 01/01/2006 Pure hypercholesterolemia 01/01/2006 Dermatophytosis 01/01/2006 Overview: ICD10 Diagnosis Term Set Up Mechanic Automatic Line Utility documented as of this encounter (statuses as of 02/09/2019) Resolved Problems Problem Noted Date Resolved Date Cataract, right eye 02/09/2013 03/09/2013 Senile nuclear sclerosis, both eyes 08/18/2012 02/09/2013 Moderate nonproliferative diabetic retinopathy of both eyes 08/18/20122012 Osteoarthritis 02/27/2012 06/27/2016 Type II or unspecified type diabetes mellitus without 08/12/2009 07/09/2013 mention of complication, uncontrolled Type II or unspecified type diabetes mellitus with 09/30/2007 08/12/2009 ophthalmic manifestations, uncontrolled(250.52) Diabetes mellitus with background retinopathy 12/11/2006 07/09/2013 Overview: ICD10 Diagnosis Term Set Up Mechanic Automatic Line Utility Type II or unspecified type diabetes mellitus without mention 01/01/2006 of complication, not stated as uncontrolled documented as of this encounter (statuses as of 02/09/2019) Immunizations Name Administration Dates Next Due Influenza High Dose 08/19/2018, 10/10/2016, 04/02/2015, 05/12/2014 Influenza Virus Vaccine 07/04/2017, 05/11/2009, 06/12/2007 Pneumococcal 13 Conjugate, PCV13 09/28/2015 (Prevnar 13) Pneumococcal Polysaccharide, PPSV23 07/04/2017, 10/01/2007 (PNEUMOVAX) documented as of this encounter Social History Tobacco Use Types Packs/Day Years Used Date Former Smoker Cigarettes 1 20 Quit: 07/08/2009 Smokeless Tobacco: Never Used Alcohol Use Drinks/Week oz/Week Comments No Sex Assigned at Date Recorded Not on file Job Start Date Occupation Industry Not on file Not on file Not on file Travel History Travel Start Travel End No recent travel history available. documented as of this encounter Last Filed Vital Signs Not on filedocumented in this encounter Plan of Treatment Date Type Specialty Care Team Description 02/14/2019 Office Visit Surgery Tran Waite MD [address] [facility] [address] [place], [place] [phone] 04/22/2019 Office Visit Internal Medicine Martín Tyler, DO [address] [facility] [address] [place], [place] [id number] Health Maintenance Due Date Last Done Comments DTaP,Tdap,and Td Vaccines (1 - 1960 Tdap) Zoster Recombinant Vaccine 1991 (SHINGRIX) (1 of 2) Medicare Wellness Visit 2006 EYE EXAM 08/13/2016 08/13/2015 (Previously completed), 06/14/2014, 06/14/2014, Additional history exists INFLUENZA VACCINE 03/13/2019 08/19/2018, 07/04/2017, 10/10/2016, Additional history exists HgA1C 07/24/2019 01/21/2019, 10/13/2018, 08/23/2018, Additional history exists LUNG CANCER SCREEN: Recommended 10/18/2019 10/17/2018 for age 55-80 with 30 + pack year history FOOT EXAM 01/15/2020 01/14/2019, 01/14/2019, 10/02/2017, Additional history exists LDL-C 01/22/2020 01/21/2019, 11/20/2017, 10/31/2015, Additional history exists CREATININE (SERUM) 02/09/2020 02/08/2019, 02/07/2019, 01/25/2019, Additional history exists PNEUMOCOCCAL VACCINES 65+ Completed 07/04/2017, 09/28/2015, 10/01/2007 documented as of this encounter Implants Implanted Type Area Security Systems Sales Representative Device Shelf Model / Serial Identifier Expiration / Lot Date Lens, Faustino #[id number] 24.0d - [id number] LENS Left: Eye Faustino 11/09/2016 SN60WF 24.0D / Implanted: Qty: 1 on 02/08/2013 by Matthew Serna MD at [facility] / [id number] - Tray, Faustino Lens (Virtual) - 1 - Lens, Faustino #[id number] 24.0d LENS Right: Faustino 01/06/2018 SN60WF 24.0D / Implanted: Qty: 1 on 03/08/2013 at [facility] Eye [id number] / documented as of this encounter Results Not on filedocumented in this encounter Insurance Payer Benefit Plan / Subscriber ID Effective Dates Phone Address Type Group MEDICARE MEDICARE PART xxxxxxxxxxx 2004-Prese [phone] [address] Medicare A & B 2 [id number] [place] [id number] [facility] MEDICAID OF xxxxxxxxx 2011-Presen [phone] [address] Medicaid [place] [address] [id number] [place] [address] documented as of this encounter Advance Directives Type Date Recorded Patient Vocational Rehab Consultant Explanation Advance Directives and Living Will Power of Research Development Director
--- OUTSIDE RECORDS SUMMARY | 2019-02-16 16:41 | XMS REPORT | Summary of Care ---
:1940 Author Organization [facility] - [facility] Address [address] [place] [address] Care Team Providers Name Role Phone Amaya Chadwick Service/Team Unavailable Martín Tyler DO Primary Care Provider Dash Jacobson DO Bell Person Reason for Referral Other (Routine) Status Reason Specialty Diagnoses / Referred By Referred To Procedures Contact Contact Authorized NILAY-SURGERY / Diagnoses Hyperkalemia Chavez Rhodes Humphrey, Surgery Procedures Discharge Follow-up: Specialty Provider VALERIE WAITE; 1 Week KALPANA Mayfield MD [address] [facility] [address] [address] [address] Phone: [place], [place] [phone] Fax: (Routine) Status Reason Specialty Diagnoses / Referred By Referred To Procedures Contact Contact New Request Diagnoses Hyperkalemia Chavez Rhodes MBBS Syst, Procedures Discharge Follow-up: PCP REFERRING/PCP PROV NOT IN SYST; 1 Week [address] [facility] Referring/Pcp Prov [place], [place] Not In [facility] Radiology Services (STAT) Status Reason Specialty Diagnoses / Referred By Referred To Procedures Contact Contact New Request Diagnostic Diagnoses RUQ pain Andreas Pal, Radiology Procedures US ABDOMEN LIMITED DO [address] [facility]. [address] [place] [address] Radiology Services (STAT) Status Reason Specialty Diagnoses / Referred By Referred To Procedures Contact Contact New Request Diagnostic Diagnoses RUQ pain Andreas Pal, Radiology Procedures US ABDOMEN LIMITED DO [address] [facility]. [address] [place] [address] Reason for Visit Reason Comments STOMACH ACHE Chest Pain Auth/Cert Status Reason Specialty Diagnoses / Referred By Referred To Procedures Contact Contact Emergency Medicine [facility] [address] [place] [address] [place] [address] Encounter Details Date Type Department Care Team Description 02/07/2019 - Emergency [facility] Intensive Care Unit Andreas Pal, DO [address] [facility]. [address] [place], [place] [id number] Hyperkalemia 02/08/[address] [place] [address] Chavez Christine, MBBS [address] [place], [place] [address] [place] [address] Allergies Active Allergy Reactions Severity Noted Date Comments Aspirin Unknown - See comments 02/07/2019 documented as of this encounter (statuses as of 02/08/2019) Medications Medication Sig Dispensed Refills Start Date End Date Status Blood-Glucose Meter Kit Use as 1 Kit 0 01/29/2018 Active directed atorvastatin 10 mg Take 1 tablet 90 tablet 1 03/17/2018 Active tabletIndications: by mouth Coronary artery disease daily. involving coronary bypass graft of [place] heart without angina pectoris, Pure hypercholesterolemia Blood-Glucose [...] as of this encounter (statuses as of 02/08/2019) Active Problems Problem Noted Date Hyperkalemia 02/07/2019 Abdominal pain 01/21/2019 Generalized abdominal pain 01/07/2019 Nonrheumatic aortic valve stenosis 01/06/2019 Pulmonary hypertension 01/06/2019 Bilateral carotid artery disease 01/06/2019 (HFpEF) heart failure with preserved ejection fraction 01/06/2019 Cholecystitis 01/05/2019 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 Overview: Added automatically from request for surgery [id number] Colitis 10/12/2018 E44.0 Moderate protein calorie malnutrition 08/25/2018 Anasarca 08/20/2018 ESRD (end stage renal disease) 08/20/2018 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, macular edema presence unspecified Coronary artery disease involving coronary bypass graft of [place] heart 2016 without angina pectoris Wound, surgical, [...] 01/01/2006 Dermatophytosis 01/01/2006 Overview: ICD10 Diagnosis Term Med Surg Nurse Utility documented as of this encounter (statuses as of 02/08/2019) Resolved Problems Problem Noted Date Resolved Date [...] retinopathy 12/11/2006 07/09/2013 Overview: ICD10 Diagnosis Term Med Surg Nurse Utility Type II or unspecified type diabetes mellitus without mention 01/01/2006 of complication, not stated as uncontrolled documented as of this encounter (statuses as of 02/08/2019) Immunizations Name Administration Dates Next Due Influenza [...] of this encounter Last Filed Vital Signs Vital Sign Reading Time Taken Comments Blood Pressure 164/70 02/08/2019 8:00 AM CDT Pulse 66 02/08/2019 8:00 AM CDT Temperature 36.7 C (98.1 F) 02/08/2019 8:00 AM CDT Respiratory Rate 16 02/08/2019 7:15 AM CDT Oxygen Saturation 93% 02/08/2019 7:15 AM CDT Inhaled Oxygen Concentration - - Weight 58 kg (127 lb 13.9 oz) 02/07/2019 8:43 PM CDT Height - - Body Mass Index 21.28 01/21/2019 8:48 PM CDT documented in this encounter Discharge Summaries Chavez Rhodes MBBS - 02/08/2019 8:51 AM CDT Discharge Summary ADMIT DATE: 02/07/2019 DISCHARGE DATE: 02/08/19 REASON FOR ADMISSION Abd pain FINAL DIAGNOSIS:Abd pain SIGNIFICANT LAB/X-RAYS: Lab results: CBC BMP PT/INR WBC x10^3 (/uL) Date Value 06/13/2014 7.9 WBC (10*3/L) Date Value 02/08/2019 3.88 (L) NA Date Value 02/08/2019 137 mmol/L 06/13/2014 138 MMOL/L No results found for: PT RBC x10^6 (/uL) Date Value 06/13/2014 3.68 (L) RBC (10*6/L) Date Value 02/08/2019 3.11 (L) K Date Value 02/08/2019 5.3 mmol/L (H) 06/13/2014 5.4 MMOL/L (H) PT INR (no units) Date Value 01/27/2013 1.1 INR (no units) Date Value 01/21/2019 1.2 PLT x10^3 (/uL) Date Value 06/13/2014 216 PLT (10*3/L) Date Value 02/08/2019 97 (L) CALCIUM Date Value 02/08/2019 9.1 mg/dL 06/13/2014 10.1 MG/DL HGB Date Value 02/08/2019 10.4 g/dL (L) 06/13/2014 11.5 G/DL (L) CL Date Value 02/08/2019 99 mmol/L 06/13/2014 108 MMOL/L aPTT HCT (%) Date Value 02/08/2019 31.5 (L) 06/13/2014 33.2 (L) BUN Date Value 02/08/2019 27 mg/dL (H) 06/13/2014 33 MG/DL (H) APTT (SEC) Date Value 01/25/2013 33 APTT Patient (Seconds) Date Value 01/21/2019 42 (H) CREATININE Date Value 02/08/2019 3.03 mg/dL (H) 06/13/2014 1.74 MG/DL (H) GLUCOSE Date Value 02/08/2019 97 mg/dL 06/13/2014 176 MG/DL (H) CO2 TOTAL Date Value 02/08/2019 29 mmol/L 06/13/2014 20 MMOL/L (L) X-ray results: Ct Abdomen Pelvis W Contrast Result Date: 01/26/2019 1. Colonic diverticulosis without diverticulitis. 2. Small volume ascites mainly around the liver.3. Moderate to large volume right-sided and small volume left-sided pleural effusions with compressive scattered subsegmental atelectasis of the lung bases and right middle lobe. 4. Cardiomegaly. 5.Diffuse bladder wall thickening is likely due to underdistention, similar to the prior exam. Allie Bagley MD., have reviewed this study and agree with the above report. Ct Abdomen Pelvis Wo Contrast Result Date: 01/22/2019 Scattered colonic diverticulosis without evidence of acute diverticulitis. Nonspecific mild bladder wall thickening can be seen with cystitis. Correlation with urinalysis is recommended. Alternatively,bladder wall thickening can be seen as evidence of chronic outlet obstruction due to prostatomegaly.Bilateral pleural effusions, greater on the right. Bibasilar groundglass and solid opacities in the aerated lung may represent edema and/or infection. Follow-up imaging is recommended in 6-8 weeks after appropriate therapy to document resolution. Allie Bagley MD., have reviewed this study and agree with the above report. Physical Exam: Constitutional: normal body habitus Eyes: b/l blindness ENT: OP clear. Neck supple Respiratory: No chest wall tenderness, equal and symmetric expansion b/l CTA b/l Cardiovascular : Regular rate and rhythm S1S2 normal. No murmur. No cyanosis clubbing or edema GI: abd Soft ND NT no organomegaly Neuro: CN 3-12 grossly normal. No focal neuro deficits Skin: No rashes warm to touch Musculoskeletal: Normal range of motion. No spinal TTP Hematological: No petechia or purpura no extensive lymphadenopathy HOSPITAL COURSE: 78 year-old with PMH of ESRD and HTN admitted with symptomatic cholelithiasis and hyperkalemia. Pt received limited HD and hyperkalmeia resolved and d/vero with OPf/u. Pt also with symptomatic cholelithiais without cholecystitis. Now pain resoved. OP f/u with surgery DISCHARGE CONDITION: fair COGNITIVE STATUS: cognitively intact DIET: renal ACTIVITY: as tolerated DISCHARGE MEDICATIONS: Current Discharge Medication List START taking these medications Details traMADol (ULTRAM) 50 mg Take 50 mg by mouth every 6 (six) hours as needed for Pain (scale 4-6). Qty: 15 tablet, Refills: 0 Start date: 02/08/2019 Associated Diagnoses: Hyperkalemia CONTINUE these medications which have NOT CHANGED Details !! acetaminophen-codeine (TYLENOL #3) 1 tablet Take 1 tablet by mouth every 6 ( six) hours as needed for Pain (scale 7-10). Qty: 20 tablet, Refills: 0 Associated Diagnoses: Generalized abdominal pain ondansetron (ZOFRAN) 4 mg Take 4 mg by mouth every 8 (eight) hours as needed for Nausea and Vomiting(N/V). Qty: 12 tablet, Refills: 0 Associated Diagnoses: Generalized abdominal pain !! acetaminophen-codeine (TYLENOL #3) 1 tablet Take 1 tablet by mouth every 6 ( six) hours as needed for Pain (scale 4-6) or Pain (scale 7-10). Qty: 20 tablet, Refills: 0 Associated Diagnoses: Generalized abdominal pain pantoprazole (PROTONIX) 40 mg Take 40 mg by mouth daily. Qty: 30 tablet, Refills: 0 Associated Diagnoses: Generalized abdominal pain terbinafine HCl (LAMISIL AT) 1 % cream Apply to area(s) 2 (two) times daily. Qty: 1 Tube, Refills: 3 Associated Diagnoses: Tinea pedis of both feet amLODIPine (NORVASC) 10 mg Take 10 mg by mouth daily. Qty: 90 tablet, Refills: 0 Comments: No refills until patient sets a follow up docusate (COLACE) 100 mg Take 100 mg by mouth daily. Qty: 30 capsule, Refills: 3 Associated Diagnoses: Constipation, unspecified constipation type latanoprost (XALATAN) [address] 1 Drop in both eyes every evening. Qty: 3 Bottle, Refills: 2 Associated Diagnoses: End-stage glaucoma nitroglycerin (NITROSTAT) 0.[address] 0.4 mg under the tongue every 5 (five) minutes as needed forChest pain. Qty: 75 tablet, Refills: 0 Associated Diagnoses: Stable angina pectoris brinzolamide (AZOPT) [address] 1 Drop in both eyes 3 (three) times daily. Qty: 10 mL, Refills: 1 Associated Diagnoses: End-stage glaucoma clonazePAM (KLONOPIN) 0.5 mg Take 0.5 mg by mouth 3 (three) times daily as needed (panic or anxiety attack). Qty: 90 tablet, Refills: 1 Associated Diagnoses: Anxiety blood sugar diagnostic (BLOOD GLUCOSE TEST) strip Use daily dx code E11.21 Qty: 100 Strip, Refills: 3 !! Blood-Glucose Meter Kit Use daily dx code E11.21 Qty: 1 Kit, Refills: 0 Associated Diagnoses: Type 2 diabetes mellitus with retinopathy, with long- term current use of insulin, macular edema presence unspecified, unspecified laterality, unspecified retinopathy severity lancets (ONE TOUCH DELICA) 33 gauge Misc Use daily dx code E11.21 Qty: 100 Each, Refills: 3 Associated Diagnoses: Type 2 diabetes mellitus with diabetic nephropathy, with long-term current use of insulin atorvastatin (LIPITOR) 10 mg Take 10 mg by mouth daily. Qty: 90 tablet, Refills: 1 Associated Diagnoses: Coronary artery disease involving coronary bypass graft of [place] heart without angina pectoris; Pure hypercholesterolemia !! Blood-Glucose Meter Kit Use as directed Qty: 1 Kit, Refills: 0 Comments: Please provide meter covered by insurance DX. E11.21 testing daily !! - Potential duplicate medications found. Please discuss with provider. DISCHARGE: home self care FOLLOW-UP APPOINTMENT: Future Appointments Provider Department Dept Phone Center 04/22/2019 10:00 AM Martín Tyler [facility] Internal Medicine [facility] [phone] Please call paging services at [phone] to contact KALPANA Park with any questions. documented in this encounter Discharge Instructions AttachmentsThe following attachments cannot be sent through Care Everywhere.Hyperkalemia (English)Abdominal Pain, Adult (English)documented in this encounter Progress Notes Juliana Toelntino RT - 02/07/2019 3:44 PM CDTPatient agreed to continue Albuterol treatmentsElectronically signed by Juliana Tolentino RT at 2018 3:45 PM Juliana Abraham RT - 02/07/2019 3:33 PM CDTAfter 3 treatments Patient refused to continue and refused to finished continue current treatment. documented in this encounter Plan of Treatment Date Type Specialty Care Team Description 02/14/2019 Office Visit Surgery Valerie Waite MD [address] [facility] [address] [place] [address] [phone] 04/22/2019 Office Visit Internal Medicine Martín Tyler, DO [address] [facility] [id number] [place] [address] [phone] Health Maintenance Due Date Last Done Comments [...] 11/20/2017, 10/31/2015, Additional history exists CREATININE (SERUM) 02/08/2020 02/07/2019, 01/25/2019, 01/21/2019, Additional history exists PNEUMOCOCCAL VACCINES 65+ Completed 07/04/2017, 09/28/2015, 10/01/2007 documented as of this encounter Implants Implanted Type Area Reproduction Technician Device Shelf Model / Serial Identifier Expiration / Lot Date Lens, Faustino #[id number] 24.0d - [id number] LENS Left: Eye Faustino 11/09/2016 [id number] 24.0D / Implanted: Qty: 1 on 02/08/2013 by Matthew Serna MD at [facility] / [id number] - Tray, Faustino Lens (Virtual) - 1 - Lens, Faustino #[id number] 24.0d LENS Right: Faustino 01/06/2018 [id number] 24.0D / Implanted: Qty: 1 on 03/08/2013 at [facility] Eye [id number] / documented as of this encounter Procedures Procedure Name Priority Date/Time Associated Comments Diagnosis POCT GLUCOSE Routine 02/08/2019 7:43 Results for this (AUTOMATED) AM CDT procedure are in the results section. CBC WITH DIFFERENTIAL Routine 02/08/2019 2:48 Results for this AM CDT procedure are in the results section. CBC WITH DIFF Routine 02/08/2019 2:48 Results for this AM CDT procedure are in the results section. BASIC METABOLIC PANEL Routine 02/08/2019 2:48 Results for this (NA, K, CL, CO2, AM CDT procedure are in GLUCOSE, BUN, the results CREATININE, CA) section. EKG-12 LEAD Routine 02/07/2019 3:14 PM CDT US ABDOMEN LIMITED STAT 02/07/2019 3:07 RUQ pain Results for this PM CDT procedure are in the results section. CBC WITH DIFFERENTIAL STAT 02/07/2019 2:19 RUQ pain Results for this PM CDT procedure are in the results section. CBC WITH DIFF Routine 02/07/2019 2:19 RUQ pain Results for this PM CDT procedure are in the results section. COMP. METABOLIC PANEL STAT 02/07/2019 2:19 RUQ pain Results for this (89509) PM CDT procedure are in the results section. TROPONIN I STAT 02/07/2019 2:19 RUQ pain Results for this PM CDT procedure are in the results section. LIPASE STAT 02/07/2019 2:19 RUQ pain Results for this PM CDT procedure are in the results section. EKG-12 LEAD STAT 02/07/2019 2:13 PM CDT NOTICE OF PRIVACY Routine 02/07/2019 1:12 PRACTICES PM CDT CONSENT/REFUSAL FOR Routine 02/07/2019 1:12 DIAGNOSIS AND PM CDT TREATMENT documented in this encounter Results POCT GLUCOSE (AUTOMATED) (02/08/2019 7:43 AM CDT) POCT GLU 77 70 - 110 mg/dL [facility] Specimen Blood Performing Organization Address City/State/Zipcode Phone Number [facility] CLIA: [id number], [address] [place] [address] CBC WITH DIFFERENTIAL (02/08/2019 2:48 AM CDT) WBC 3.88 (L) 4.20 - 10.70 [facility] 10*3/L [facility] RBC 3.11 (L) 4.26 - 5.52 [facility] 10*6/L [facility] HGB 10.4 (L) 12.2 - 16.4 [facility] g/dL [facility] HCT 31.5 (L) 38.4 - 49.3 % [facility] MCV 101.3 (H) 81.7 - 95.6 [facility] LABORATORY MCH 33.4 (H) 26.1 - 32.7 [facility] pg [facility] MCHC 33.0 31.2 - 35.0 [facility] g/dL [facility] RDW-SD 58.4 (H) 38.5 - 51.6 [facility] LABORATORY RDW-CV 15.9 (H) 12.1 - 15.4 % [facility] PLT 97 (L) 150 - 328 [facility] 10*3/L [facility] MPV 11.0 9.8 - 13.0 fL [facility] IPF % 2.8Comment: Platelet 1.2 - 10.7 % [facility] count measured by HOSPITAL fluorescence method. LABORATORY NRBC/100 WBC 0.0 0.0 - 10.0 [facility] /100 WBCs [facility] NRBC x10^3 <0.01 10*3/L [facility] GRAN MAT (NEUT) % 74.1 % [facility] IMM GRAN % 0.80 % [facility] LYMPH % 12.4 % [facility] MONO % 10.6 % [facility] EOS % 1.3 % [facility] BASO % 0.8 % [facility] GRAN MAT 2.88 1.99 - 6.95 [facility] x10^3(ANC) 10*3/uL [facility] IMM GRAN x10^3 0.03 0.00 - 0.06 [facility] 10*3/uL [facility] LYMPH x10^3 0.48 (L) 1.09 - 3.23 [facility] 10*3/uL [facility] MONO x10^3 0.41 0.36 - 1.02 [facility] 10*3/uL HOSPITAL LABORATORY EOS x10^3 0.05 (L) 0.06 - 0.53 [facility] 10*3/uL [facility] BASO x10^3 0.03 0.01 - 0.09 [facility] 10*3/uL [facility] Specimen Blood - VENOUS Performing Organization Address City/State/Zipcode Phone Number [facility] CLIA: [id number], [address] [place] [address] Basic Metabolic Panel (NA, K, CL, CO2, GLUCOSE, BUN, CREATININE, CA) (2018 2:48 AM CDT) NA 137 135 - 145 [facility] mmol/L [facility] K 5.3 (H) 3.5 - 5.0 [facility] mmol/L [facility] CL 99 98 - 108 mmol/L [facility] CO2 TOTAL 29 23 - 31 mmol/L [facility] AGAP 9 2 - 16 [facility] BUN 27 (H) 7 - 23 mg/dL [facility] GLUCOSE 97 70 - 110 mg/dL [facility] CREATININE 3.03 (H) 0.60 - 1.25 [facility] mg/dL [facility] CALCIUM 9.1 8.6 - 10.6 [facility] mg/dL [facility] eGFR Calculation 20.2 mL/min/1.73m2 [facility] (Non[facility] LABORATORY [place]) eGFR Calculation 24.4 mL/min/1.73m2 [facility] () [facility] Specimen Blood - VENOUS Narrative Performed At Association of Glomerular Filtration Rate (GFR) [facility] and Staging of Kidney Disease* + + +- + | GFR (mL/min/1.73 m2)| With Kidney Damage|Without Kidney Damage + + +- + |>90| Stage one| Normal + + +- + |60-89|S tage two| Decreased GFR + + +- + |30-59|S tage three| Stage three + + +- + |15-29|S tage four | Stage four + + +- + |<15 (or dialysis)|Stage five | Stage five + + +- + *Each stage assumes the associated GFR level has been in effect for at least three months.Stages 1 to 5, with or without kidney disease, indicate chronic kidney disease. Notes: Determination of stages one and two (with eGFR >59mL/min/1.73 m2) requires estimation of kidney damage for at least three months as defined by structural or functional abnormalities of the kidney, manifested by either: Pathological abnormalities or Markers of kidney damage (including abnormalities in the composition of the blood or urine or abnormalities in imaging tests). Performing Organization Address City/State/Zipcode Phone Number [facility] CLIA: [id number], [address] [place] [address] [facility] ABDOMEN LIMITED (02/07/2019 3:07 PM CDT) Specimen Narrative Performed At HISTORY: RUQ Abdominal pain. PACS/VR/DOSE TECHNIQUE: Gallbladder is evaluated in multiple planes with the patient in different positions. Color imaging is utilized. FINDINGS: Comparison is made with a recent CT scan of abdomen dated 01/26/2019. Gallbladder is of normal size and shape with mild diffuse thickening of the willis and serosal edema and small amount of fluid in the pericholecystic space. 2 or 3 very small mobile gallstones are seen in the gallbladder lumen, each measuring approximately 4 to 5 mm in size. Gallbladder measures approximately 8.4 x 3.3 cm. No biliary sludge or crystals seen. No free fluid detected in pericholecystic space. Common hepatic duct is 3.2 mm. Hepatic and portal venous system appeared patent. Visualized portions of the pancreas appear normal. CONCLUSION: 1. Gallbladder wall thickening and serosal edema with 2 or 3 small gallstones and positive Mccarthy's sign. Findings could be due to acute cholecystitis although edema of the serosal surface and fluid around the gallbladder could be secondary to liver disease. 2. Right-sided Pleural effusion. Procedure Note [facility], Radiant Results Inft User - 02/07/2019 3:10 PM CDT HISTORY: RUQ Abdominal pain. TECHNIQUE: Gallbladder is evaluated in multiple planes with the patient in different positions. Color imaging is utilized. FINDINGS: Comparison is made with a recent CT scan of abdomen dated 01/26/2019. Gallbladder is of normal size and shape with mild diffuse thickening of the willis and serosal edema and small amount of fluid in the pericholecystic space. 2 or 3 very small mobile gallstones are seen in the gallbladder lumen, each measuring approximately 4 to 5 mm in size. Gallbladder measures approximately 8.4 x 3.3 cm. No biliary sludge or crystals seen. No free fluid detected in pericholecystic space. Common hepatic duct is 3.2 mm. Hepatic and portal venous system appeared patent. Visualized portions of the pancreas appear normal. CONCLUSION: 1. Gallbladder wall thickening and serosal edema with 2 or 3 small gallstones and positive Mccarthy's sign. Findings could be due to acute cholecystitis although edema of the serosal surface and fluid around the gallbladder could be secondary to liver disease. 2. Right-sided Pleural effusion. Performing Organization Address City/State/Zipcode Phone Number PACS/VR/DOSE CBC WITH DIFFERENTIAL (02/07/2019 2:19 PM CDT) WBC 4.46 4.20 - 10.70 [facility] 10*3/L [facility] RBC 3.57 (L) 4.26 - 5.52 [facility] 10*6/L [facility] HGB 11.8 (L) 12.2 - 16.4 [facility] g/dL [facility] HCT 36.2 (L) 38.4 - 49.3 % [facility] MCV 101.4 (H) 81.7 - 95.6 [facility] LABORATORY MCH 33.1 (H) 26.1 - 32.7 [facility] LABORATORY MCHC 32.6 31.2 - 35.0 [facility] g/dL [facility] RDW-SD 58.3 (H) 38.5 - 51.6 [facility] LABORATORY RDW-CV 15.7 (H) 12.1 - 15.4 % [facility] PLT 101 (L) 150 - 328 [facility] 10*3/L [facility] MPV 10.2 9.8 - 13.0 fL [facility] IPF % 3.1Comment: Platelet 1.2 - 10.7 % [facility] count measured by HOSPITAL fluorescence method. LABORATORY NRBC/100 WBC 0.0 0.0 - 10.0 [facility] /100 WBCs [facility] NRBC x10^3 <0.01 10*3/L [facility] GRAN MAT (NEUT) % 69.3 % [facility] IMM GRAN % 0.90 % [facility] LYMPH % 15.5 % [facility] MONO % 10.5 % [facility] EOS % 2.9 % [facility] BASO % 0.9 % [facility] GRAN MAT 3.09 1.99 - 6.95 [facility] x10^3(ANC) 10*3/uL HOSPITAL LABORATORY IMM GRAN x10^3 0.04 0.00 - 0.06 [facility] 10*3/uL HOSPITAL LABORATORY LYMPH x10^3 0.69 (L) 1.09 - 3.23 [facility] 10*3/uL HOSPITAL LABORATORY MONO x10^3 0.47 0.36 - 1.02 [facility] 10*3/uL HOSPITAL LABORATORY EOS x10^3 0.13 0.06 - 0.53 [facility] 10*3/uL HOSPITAL LABORATORY BASO x10^3 0.04 0.01 - 0.09 [facility] 10*3/uL HOSPITAL LABORATORY Specimen Blood - VENOUS Performing Organization Address [facility] Phone Number [id number], [address] [place] [address] LIPASE (02/07/2019 2:19 PM CDT) LIPASE 29 0 - 220 U/L [facility] Specimen Blood - VENOUS Performing Organization Address [facility] Phone Number [facility] CLIA: [id number], [address] [place] [address] TROPONIN I (02/07/2019 2:19 PM CDT) [facility] TROPONIN I 0.044 (H) <=0.034 ng/mL [facility] Specimen Blood - VENOUS Narrative Performed At Equal or Less than 0.034 ng/ml---Normal [facility] Note: Cardiac troponin begins to rise 3-4 hours after the onset of ischemia. Repeat in 4-6 hours if the sample was drawn within 3-4 hours of the onset of the symptom and found normal. Between 0.035 and 0.120 ng/mL--- Borderline. Questionable myocardial injury or necrosis Note: Serial measurement may be necessary to confirm or exclude the diagnosis of myocardial injury or necrosis; Clinical correlation (symptoms, EKGs, imaging studies, and others) required; Repeat in 4-6 hours if clinically indicated. Equal or Higher than 0.121 ng/mL---Abnormal. Myocardial Injury or Necrosis Likely Biotin has been reported to cause a negative bias, interpret results relative to patient's use of biotin. Performing Organization Address City/State/Zipcode Phone Number [facility] CLIA: [id number], [address] [place] [address] COMP. METABOLIC PANEL (71666) (02/07/2019 2:19 PM CDT) NA 137 135 - 145 [facility] mmol/L [facility] K 6.5 (HH) 3.5 - 5.0 [facility] mmol/L [facility] CL 99 98 - 108 mmol/L [facility] CO2 TOTAL 24 23 - 31 mmol/L [facility] AGAP 14 2 - 16 [facility] BUN 46 (H) 7 - 23 mg/dL [facility] GLUCOSE 80 70 - 110 mg/dL [facility] CREATININE 4.14 (H) 0.60 - 1.25 [facility] mg/dL [facility] TOTAL BILI 0.7 0.1 - 1.1 mg/dL [facility] CALCIUM 8.9 8.6 - 10.6 [facility] mg/dL [facility] T PROTEIN 7.7 6.3 - 8.2 g/dL [facility] ALBUMIN 4.4 3.5 - 5.0 g/dL [facility] ALK PHOS 104 34 - 122 U/L [facility] ALT(SGPT) 23 9 - 51 U/L [facility] AST(SGOT) 33 13 - 40 U/L [facility] eGFR Calculation 14.1 mL/min/1.73m2 [facility] (Non[facility] LABORATORY [place]) eGFR Calculation 17.0 mL/min/1.73m2 [facility] () [facility] Specimen Blood - VENOUS Narrative Performed At Association of Glomerular Filtration Rate (GFR) [facility] and Staging of Kidney Disease* + + +- + | GFR (mL/min/1.73 m2)| With Kidney Damage|Without Kidney Damage + + +- + |>90| Stage one| Normal + + +- + |60-89|S tage two| Decreased GFR + + +- + |30-59|S tage three| Stage three + + +- + |15-29|S tage four | Stage four + + +- + |<15 (or dialysis)|Stage five | Stage five + + +- + *Each stage assumes the associated GFR level has been in effect for at least three months.Stages 1 to 5, with or without kidney disease, indicate chronic kidney disease. Notes: Determination of stages one and two (with eGFR >59mL/min/1.73 m2) requires estimation of kidney damage for at least three months as defined by structural or functional abnormalities of the kidney, manifested by either: Pathological abnormalities or Markers of kidney damage (including abnormalities in the composition of the blood or urine or abnormalities in imaging tests). Performing Organization Address City/State/Zipcode Phone Number [facility] CLIA: [id number], [address] [place] [address] [facility] [address] documented in this encounter Visit Diagnoses Diagnosis RUQ pain - Primary Abdominal pain, right upper quadrant Hyperkalemia Hyperpotassemia documented in this encounter Administered Medications Medication Order MAR Action Action Date Dose Rate Site amLODIPine (NORVASC) tablet 10 mg Given 02/08/2019 8:29 AM CDT 10 mg 10 mg, Oral, DAILY, First dose on Thu02/08/19 at 0900, Until Discontinued, Routine atorvastatin (LIPITOR) tablet 10 mg Given 02/08/2019 8:29 AM CDT 10 mg 10 mg, Oral, DAILY, First dose on Thu02/08/19 at 0900, Until Discontinued, Routine clonazePAM (KLONOPIN) tablet 0.5 mg Given 02/08/2019 1:36 AM CDT 0.5 mg 0.5 mg, Oral, TIDPRN, Starting Thu02/07/19 at 1800, Until Discontinued, Routine, panic or anxiety attack HYDROcodone-acetaminophen (NORCO) 10-325 Given 02/08/2019 3:43 AM CDT 1 tablet mg tablet 1 tablet 1 tablet, Oral, Q4HPRN, Starting Thu02/07/19 at 1631, Until Discontinued, Routine, Pain (scale 7-10) Given 02/08/2019 12:08 AM CDT 1 tablet Given 02/07/2019 4:35 PM CDT 1 tablet ipratropium-albuterol (DUONEB) 0.5 mg-3 mg(2.5 mg base)/3 mL nebulizer solution 3 mL 3 mL, Inhalation, QIDPRN, Starting Thu02/07/19 at 1801, Until Discontinued, Routine, Wheezing LORazepam (ATIVAN) injection 0.5 mg 0.5 mg, Slow IV Push, Q6HPRN, Starting Thu02/07/19 at 1731, Until Discontinued , Routine, Anxiety, Agitation pantoprazole (PROTONIX) EC tablet 40 mg Given 02/08/2019 8:29 AM CDT 40 mg 40 mg, Oral, DAILY, First dose on Thu02/08/19 at 0900, Until Discontinued, Routine Sliding Scale Insulin - Aspart (NOVOLOG) + Fsbg Testing Subcutaneous, AC, First dose on Thu02/08/19 at 0730, Until Discontinued, Routine traMADol (ULTRAM) tablet 50 mg 50 mg, Oral, Q6HPRN, Starting Thu02/07/19 at 1631, Until Discontinued, Routine , Pain (scale 4-6) Medication Order MAR Action Action Date Dose Rate Site albuterol (PROVENTIL) 2.5 mg /3 mL Given 02/07/2019 3:17 PM CDT 15 mg (0.083 %) nebulizer solution 15 mg 15 mg, Inhalation, ONCE, 1 dose, Thu02/07/19 at 1615, STAT dextrose 50 % in water (D50W) injection 50 mL Given 02/07/2019 4:04 PM CDT 50 mL 50 mL, Intravenous, ONCE, 1 dose, Thu02/07/19 at 1700, STAT FENTanyl PF (SUBLIMAZE (PF)) injection 100 Given 02/07/2019 3:45 PM CDT 100 mcg mcg 100 mcg, Slow IV Push, ONCE, 1 dose, Thu02/07/19 at 1545, STAT heparin 1,000 unit/mL injection 1,500 Given 02/07/2019 6:38 PM CDT 1,500 Units Units 1,500 Units, Slow IV Push, DIALYSIS ONCE - PT ROOM, 1 dose, Thu02/07/19 at 1730, Routine heparin 1,000 unit/mL injection 5,000 Given 02/07/2019 8:41 PM CDT 3,500 Units Units 5,000 Units, Slow IV Push, DIALYSIS ONCE - [facility] DSU, 1 dose, Thu02/07/19 at 1730, Routine insulin regular human (HUMULIN R) Given 02/07/2019 4:04 PM CDT 10 Units injection 10 Units 10 Units, IV Push, ONCE, 1 dose, 02/07/19 at 1700, MALCOLM documented in this encounter Insurance Payer Benefit Plan / Subscriber ID Effective Dates Phone Address Type Group MEDICARE MEDICARE PART xxxxxxxxxxx 2004-Carol [phone] [address] Medicare [place] [address] [id number] [place] [phone] 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
--- OUTSIDE RECORDS SUMMARY | 2019-02-16 16:42 | XMS REPORT | Summary of Care ---
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 Reason for Referral MRI/CAT Scan (STAT) Status Reason Specialty Diagnoses / Referred By Referred To Procedures Contact Contact New Request Diagnostic Diagnoses Abdominal pain in male [place], Radiology Procedures CT ABDOMEN PELVIS WO CONTRAST Folusho F, INDUSTRIAL HYGIENE TECHNICIAN [address] [place] [phone] MRI/CAT Scan (STAT) Status Reason Specialty Diagnoses / Referred By Referred To Procedures Contact Contact New Request Diagnostic Diagnoses Abdominal pain in male [place], Radiology Procedures CT ABDOMEN PELVIS WO CONTRAST Folusho F, INDUSTRIAL HYGIENE TECHNICIAN [address] [place] [phone] Radiology Services (STAT) Status Reason Specialty Diagnoses / Referred By Referred To Procedures Contact Contact New Request Diagnostic Diagnoses Abdominal pain in male [place], Radiology Procedures US GALL BLADDER Folusho F, INDUSTRIAL HYGIENE TECHNICIAN [address] [place] [phone] Radiology Services (STAT) Status Reason Specialty Diagnoses / Referred By Referred To Procedures Contact Contact New Request Diagnostic Diagnoses Abdominal pain in male [place], Radiology Procedures US GALL BLADDER Folusho F, INDUSTRIAL HYGIENE TECHNICIAN [address] [place] [address] Reason for Visit Reason Comments Abdominal Pain Auth/Cert Status Reason Specialty Diagnoses / Referred By Referred To Procedures Contact Contact [facility] [address] [place] [address] [place] [address] Encounter Details Date Type Department Care Team Description 02/10/2019 Emergency [facility]-Emergency Kash Delgado Abdominal pain in male Department F, INDUSTRIAL HYGIENE TECHNICIAN (Primary Dx) [address] [place] [address] [address] [place] [address] [address] [place] [address] Allergies Active Allergy Reactions Severity Noted Date Comments Aspirin Unknown - See comments 02/07/2019 documented as of this encounter (statuses as of 02/10/2019) Medications Medication Sig Dispensed Refills Start Date End Date Status Blood-Glucose Meter Kit Use as 1 Kit 0 01/29/2018 Active directed atorvastatin 10 mg Take 1 tablet 90 tablet 1 03/17/2018 Active tabletIndications: by mouth Coronary artery disease daily. 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 Overview: Added automatically from request for surgery [id number] Colitis 10/12/2018 E44.0 Moderate protein calorie malnutrition 08/25/2018 Anasarca 08/20/2018 ESRD (end stage renal disease) 08/20/2018 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, macular edema presence unspecified 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 heart 2016 without angina pectoris Wound, surgical, [...] 01/01/2006 Dermatophytosis 01/01/2006 Overview: ICD10 Diagnosis Term Second Time Worker Utility documented as of this encounter (statuses as of 02/10/2019) Resolved Problems Problem Noted Date Resolved Date [...] retinopathy 12/11/2006 07/09/2013 Overview: ICD10 Diagnosis Term Second Time Worker Utility Type II or unspecified type diabetes mellitus without mention 01/01/2006 of complication, not stated as uncontrolled documented as of this encounter (statuses as of 02/10/2019) Immunizations Name Administration Dates Next Due Influenza [...] Sign Reading Time Taken Comments Blood Pressure 164/67 02/10/2019 6:00 PM CDT Pulse 70 02/10/2019 6:00 PM CDT Temperature 36.4 C (97.6 F) 02/10/2019 4:26 PM CDT Respiratory Rate 20 02/10/2019 6:00 PM CDT Oxygen Saturation 97% 02/10/2019 6:00 PM CDT Inhaled Oxygen Concentration - - Weight 55.3 kg (122 lb) 02/10/2019 4:26 PM CDT Height 165.1 cm (5' 5") 02/10/2019 4:26 PM CDT Body Mass Index 20.3 02/10/2019 4:26 PM CDT documented in this encounter Plan of Treatment Date Type Specialty Care Team Description 02/14/2019 Office Visit Surgery Tran Waite MD [address] [facility] 2.[address] [place], [place] [address] 04/22/2019 Office Visit Internal Medicine Martín Tyler, DO [id number] [place] [address] [phone] Name Type Priority Associated Diagnoses Order Schedule US GALL BLADDER IMAGING STAT Abdominal pain in ONCE for 1 Occurrences male starting 02/10/2019 until 02/10/2019 EKG-12 LEAD ROUTINE HEART STATION STAT ONCE for 1 Occurrences starting 02/10/2019 until 02/10/2019 CT ABDOMEN PELVIS IMAGING STAT Abdominal pain in ONCE for 1 Occurrences WO CONTRAST male starting 02/10/2019 until 02/10/2019 Health Maintenance Due Date Last Done Comments [...] of this encounter Implants Implanted Type Area Stamp Presser Device Shelf Model / Serial Identifier Expiration / Lot Date Lens, Faustino #[id number] 24.0d - [id number] LENS Left: Eye Faustino 11/09/2016 SN60WF 24.0D / Implanted: Qty: 1 on 02/08/2013 by Matthew Serna MD at [facility] / [id number] - Tray, Faustino Lens (Virtual) - 1 - Lens, Faustino #[id number] 24.0d LENS Right: Faustino 01/06/2018 [id number] 24.0D / Implanted: Qty: 1 on 03/08/2013 at [facility] Eye [id number] / documented as of this encounter Procedures Procedure Name Priority Date/Time Associated Comments Diagnosis URINALYSIS STAT 02/10/2019 5:10 Abdominal pain in Results for this PM CDT male procedure are in the results section. CBC WITH DIFFERENTIAL STAT 02/10/2019 4:52 Abdominal pain in Results for this PM CDT male procedure are in the results section. CBC WITH DIFF Routine 02/10/2019 4:52 Abdominal pain in Results for this PM CDT male procedure are in the results section. BASIC METABOLIC PANEL STAT 02/10/2019 4:52 Abdominal pain in Results for this (NA, K, CL, CO2, PM CDT male procedure are in GLUCOSE, BUN, the results CREATININE, CA) section. HEPATIC FUNCTION STAT 02/10/2019 4:52 Abdominal pain in Results for this PANEL (52750) PM CDT male procedure are in (ALB,T.PRO,BILI the results T,BU/BC,ALT,AST,ALK section. PHOS) LIPASE STAT 02/10/2019 4:52 Abdominal pain in Results for this PM CDT male procedure are in the results section. NOTICE OF PRIVACY Routine 02/10/2019 4:10 PRACTICES PM CDT CONSENT/REFUSAL FOR Routine 02/10/2019 4:10 DIAGNOSIS AND PM CDT TREATMENT documented in this encounter Results Urinalysis (02/10/2019 5:10 PM CDT) APPEARANCE Clear Clear [facility] COLOR Yellow Yellow [facility] PH 8.5 (A) 4.8 - 8.0 [facility] SP GRAVITY 1.025 1.003 - 1.030 [facility] GLU U QUAL 100 mg/dL (A) Negative [facility] BLOOD Trace (A) Negative [facility] KETONES Negative Negative [facility] PROTEIN 100 mg/dL (A) Negative [facility] UROBILIN 0.2 mg/dL 0-1.0 mg/dL [facility] BILIRUBIN Negative Negative [facility] NITRITE Negative Negative [facility] LEUK KHUSHBU Negative Negative [facility] RBC/HPF 5 (H) 0 - 3 HPF [facility] WBC/HPF 0 0 - 5 HPF [facility] BACTERIA Few (A) Negative [facility] SQ EPITH 10 HPF [facility] Specimen Urine - URINE, CLEAN CATCH Performing Organization Address City/State/Zipcode Phone Number [facility] CLIA: [id number], [address] [place] [address] CBC WITH DIFFERENTIAL (02/10/2019 4:52 PM CDT) WBC 3.65 (L) 4.20 - 10.70 [facility] 10*3/L [facility] RBC 3.59 (L) 4.26 - 5.52 [facility] 10*6/L [facility] HGB 12.1 (L) 12.2 - 16.4 [facility] g/dL [facility] HCT 36.4 (L) 38.4 - 49.3 % [facility] MCV 101.4 (H) 81.7 - 95.6 fL [facility] MCH 33.7 (H) 26.1 - 32.7 pg [facility] MCHC 33.2 31.2 - 35.0 [facility] g/dL [facility] RDW-SD 59.8 (H) 38.5 - 51.6 fL [facility] RDW-CV 16.0 (H) 12.1 - 15.4 % [facility] PLT 99 (L) 150 - 328 [facility] 10*3/L [facility] MPV 10.6 9.8 - 13.0 fL [facility] NRBC/100 WBC 0.0 0.0 - 10.0 /100 [facility] WBCs [facility] NRBC x10^3 <0.01 10*3/L [facility] GRAN MAT (NEUT) % 70.5 % [facility] IMM GRAN % 0.50 % [facility] LYMPH % 12.6 % [facility] MONO % 12.3 % [facility] EOS % 3.0 % [facility] BASO % 1.1 % [facility] GRAN MAT x10^3(ANC) 2.57 1.99 - 6.95 [facility] 10*3/uL [facility] IMM GRAN x10^3 <0.03 0.00 - 0.06 [facility] 10*3/uL HOSPITAL LABORATORY LYMPH x10^3 0.46 (L) 1.09 - 3.23 [facility] 10*3/uL HOSPITAL LAB[facility]ATORY MONO x10^3 0.45 0.36 - 1.02 [facility] 10*3/uL HOSPITAL LABORATORY EOS x10^3 0.11 0.06 - 0.53 [facility] 10*3/uL HOSPITAL LABORATORY BASO x10^3 0.04 0.01 - 0.09 [facility] 10*3/uL [facility] Specimen Blood - VENOUS Performing Organization Address [facility] [place] Phone Number [facility] CLIA: [id number], [address] [place], [place] [address] LABORATORY [address] Lipase Serum (02/10/2019 4:52 PM CDT) LIPASE 42 0 - 220 U/L [facility] Specimen Blood - VENOUS Performing Organization Address [facility] [place] Phone Number [facility] CLIA: [id number], [address] [place] [address] Hepatic Function Panel (ALB, T.PRO, BILI T, BU/BC, ALT, AST, ALK PHOS) (2018 4:52 PM CDT) Pathologist [facility] TOTAL BILI 0.8 0.1 - 1.1 mg/dL [facility] BILI UNCON 0.2 0.1 - 1.1 mg/dL [facility] BILI CONJ 0.0 0.0 - 0.3 mg/dL [facility] T PROTEIN 7.9 6.3 - 8.2 g/dL [facility] ALBUMIN 4.5 3.5 - 5.0 g/dL [facility] ALK PHOS 122 34 - 122 U/L [facility] ALT(SGPT) 18 9 - 51 U/L [facility] AST(SGOT) 35 13 - 40 U/L [facility] Specimen Blood - VENOUS Performing Organization Address [facility] [place] Phone Number [facility] CLIA: [id number], [address] [place], [place] [address] LABORATORY [address] Basic Metabolic Panel (NA, K, CL, CO2, GLUCOSE, BUN, CREATININE, CA) (2018 4:52 PM CDT) NA 140 135 - 145 [facility] mmol/L [facility] K 5.6 (H) 3.5 - 5.0 [facility] mmol/L [facility] CL 98 98 - 108 mmol/L [facility] CO2 TOTAL 28 23 - 31 mmol/L [facility] AGAP 14 2 - 16 [facility] BUN 40 (H) 7 - 23 mg/dL [facility] GLUCOSE 81 70 - 110 mg/dL [facility] CREATININE 4.37 (H) 0.60 - 1.25 [facility] mg/dL [facility] CALCIUM 9.0 8.6 - 10.6 [facility] mg/dL [facility] eGFR Calculation 13.2 mL/min/1.73m2 [facility] (Non-[facility][note 3] LABORATORY British) eGFR Calculation 16.0 mL/min/1.73m2 [facility] () [facility] Specimen Blood - VENOUS Narrative Performed At Association of Glomerular Filtration Rate (GFR) [facility] and Staging of Kidney Disease* [...] tests). Performing Organization Address City/State/Zipcode Phone Number [facility] CLIA: [id number], [address] [place] [address] [facility] [address] documented in this encounter Visit Diagnoses Diagnosis Abdominal pain in male - Primary documented in this encounter Administered Medications Medication Order MAR Action Action Date Dose Rate Site maalox:diphenhydrAMINE:lidocaine2 Given 02/10/2019 6:30 PM CDT 15 mL %viscous 1:1:1: suspension (COMPOUNDED) 15 mL, Oral, ONCE, 1 dose, [facility] 02/10/19 at 1830, Routine morpHINE injection 4 mg Given 02/10/2019 5:47 PM CDT 4 mg 4 mg, Slow IV Push, ONCE, 1 dose, Jane 02/10/19 at 1830, STAT NaCl 0.9% (NS) bolus infusion New Bag 02/10/2019 4:57 PM CDT 1,000 mL 999 mL/hr 1,000 mL at 999 mL/hr, 1,000 mL, IV Infusion, ONCE, 1 dose, [facility] 02/10/19 at 1645, MALCOLM ondansetron (ZOFRAN (PF)) injection 4 mg Given 02/10/2019 5:45 PM CDT 4 mg 4 mg, Slow IV Push, ONCE, 1 dose, [facility] 02/10/19 at 1830, MALCOLM documented in this encounter Insurance Payer Benefit Plan / Subscriber ID Effective Dates Phone Address Type Group MEDICARE MEDICARE PART xxxxxxxxxxx 2004-Prese [phone] [address] Medicare A & B [id number] [place] [address] [facility] MEDICAID OF xxxxxxxxx 2011-Presen [id number] [address] Medicaid [place] t 0 [id number] [place] [address] ([place]ebastian) [place] [address] documented as of this encounter Advance Directives Type Date Recorded Patient Crew Boss Explanation Advance Directives and Living Will Power of Soil Technologist
--- OUTSIDE RECORDS SUMMARY | 2019-02-16 16:42 | XMS REPORT | Summary of Care ---
:1940 Author Organization [facility] Address [address] [place] [address] Care Team Providers Name Role Phone Amaya Chadwick Service/Team Unavailable Martín Pablo DO Primary Care Provider Dash Jacobson DO Timber Appraiser Reason for Referral ([place]) Status Reason Specialty Diagnoses / Referred By Referred To Procedures Contact Contact New Request IM-GASTROENTEROLO Diagnoses Abdominal pain in male Miriam Rodriguez, GY Procedures Discharge Follow-Up: Specialty Service IM-GASTROENTEROLOGY; [address] [place] [address]. RT [address] [place] [phone] (Routine) Status Reason Specialty Diagnoses / Referred By Contact Referred To Procedures Contact New Request NILAY-SURGERY Diagnoses Abdominal pain in male Miriam Rodriguez MD Procedures Discharge Follow-Up: Specialty Service NILAY-SURGERY; [address] [facility] [place] [place]. RT [address] [place] [phone] (STAT) Status Reason Specialty Diagnoses / Referred By Referred To Procedures Contact Contact New Request NILAY-VASCULAR Diagnoses Abdominal pain in male Miriam Rodriguez, SURGERY Procedures Discharge Follow-Up: Specialty Service NILAY-VASCULAR SURGERY; 3-[address] [place] [address]. RT [address] [place] [phone] ([place]) Status Reason Specialty Diagnoses / Referred By Referred To Procedures Contact Contact New Request IM-CARDIOVASCULAR Diagnoses Abdominal pain in male Miriam Rodriguez, DISEASE Procedures Discharge Follow-Up: Specialty Service IM-CARDIOVASCULAR DISEASE; [address] [place] [address]. RT [address] [place] [phone] (Routine) Status Reason Specialty Diagnoses / Referred By Contact Referred To Procedures Contact New Request Diagnoses Abdominal pain in male Jennifer MD Jayson Pineda Carlos Procedures Discharge Follow-up: PCP MARTÍN PABLO; 3-[address] [place] [address] [facility]. [address] [place] [address] RT [id number] [place], [place] [id number] [place] [phone] MRI/CAT Scan (STAT) Status Reason Specialty Diagnoses / Referred By Referred To Procedures Contact Contact New Request Diagnostic Diagnoses Abdominal pain in male Miriam Rodriguez, Radiology Procedures CT ANGIOGRAM ABDOMEN/PELVIS [address] [place] [address]. RT [address] [place] [phone] MRI/CAT Scan (STAT) Status Reason Specialty Diagnoses / Referred By Referred To Procedures Contact Contact New Request Diagnostic Diagnoses Abdominal pain in male Miriam Rodriguez, Radiology Procedures CT ANGIOGRAM ABDOMEN/PELVIS [address] [place] [address]. RT [address] [place] [phone] ([place]) Status Reason Specialty Diagnoses / Referred By Contact Referred To Procedures Contact New Request Procedures Miriam Rodriguez MD MESENTERIC ARTERY [address] [place] [address] DUPLEX BY VASCULAR vd. LAB RT [address] [place] [phone] ([place]) Status Reason Specialty Diagnoses / Referred By Contact Referred To Procedures Contact New Request Procedures Miriam Rodriguez MD MESENTERIC ARTERY [address] [place] [address] LAB RT [address] [place] [phone] MRI/CAT Scan (STAT) Status Reason Specialty Diagnoses / Referred By Referred To Procedures Contact Contact New Request Diagnostic Diagnoses Abdominal pain in male Ibikunle, Radiology Procedures CT ABDOMEN PELVIS WO CONTRAST Folusho F, STAMP CLASSIFIER [address] [facility] RT [address] [place] [phone] MRI/CAT Scan (STAT) Status Reason Specialty Diagnoses / Referred By Referred To Procedures Contact Contact New Request Diagnostic Diagnoses Abdominal pain in male Ibmiriamunle, Radiology Procedures CT ABDOMEN PELVIS WO CONTRAST Folusho F, STAMP CLASSIFIER 301 [facility] RT [address] [place] [phone] Reason for Visit Reason Comments Abdominal Pain Auth/Cert Status Reason Specialty Diagnoses / Referred By Referred To Procedures Contact Contact [facility] [address] [place] [address] [place] [address] Encounter Details Date Type Department Care Team Description 02/13/2019 - Emergency [facility] Medicine Surgery Sandy, Kash F, STAMP CLASSIFIER [address] [facility] RT [address] [place] [phone] Generalized abdominal 02/14/2019 Unit Alejandro Rizvi MD [address] [place] [phone] [place] [address] [place], [place] [id number] Allergies Active Allergy Reactions Severity Noted Date Comments Aspirin Unknown - See comments 02/07/2019 documented as of this encounter (statuses as of 02/14/2019) Medications Medication Sig Dispensed Refills Start End Date Status Date Blood-Glucose Meter Kit Use as 1 Kit 0 Active directed 8 Blood-Glucose Meter Use daily dx 1 Kit 0 Active KitIndications: Type 2 code E11.21 8 diabetes mellitus with retinopathy, with long-term current use of insulin, macular edema presence unspecified, unspecified laterality, unspecified retinopathy severity blood sugar diagnostic Use daily dx 100 Strip 3 Active (BLOOD GLUCOSE TEST) code E11.21 8 strip lancets (ONE TOUCH Use daily dx 100 Each 3 Active DELICA) 33 gauge code E11.21 8 MiscIndications: Type 2 diabetes mellitus with diabetic nephropathy, with long-term current use of insulin clonazePAM 0.5 mg Take 1 90 tablet 1 Active tabletIndications: tablet by 9 Anxiety mouth 3 (three) times daily as needed (panic or anxiety attack). brinzolamide 1 % Place 1 Drop 10 mL 1 Active ophthalmic suspension in both eyes 9 dropsIndications: 3 (three) End-stage glaucoma times daily. NITROGLYCERIN 0.[address] 1 75 tablet 0 Active sublingual TABLET UNDER 9 tabletIndications: THE TONGUE Stable angina pectoris EVERY 5 (FIVE) MINUTES NEEDED FOR CHEST PAIN. latanoprost 0.005 % Place 1 Drop 3 Bottle 2 Active ophthalmic in both eyes 9 dropsIndications: every End-stage glaucoma evening. docusate 100 mg Take 1 30 capsule 3 Active capsuleIndications: capsule by 9 Constipation, mouth daily. unspecified constipation type amLODIPine 10 mg tablet Take 1 90 tablet 0 Active tablet by 9 mouth daily. terbinafine HCl (LAMISIL Apply to 1 Tube 3 Active AT) 1 % area(s) 2 9 creamIndications: Tinea (two) times pedis of both feet daily. acetaminophen-codeine Take 1 20 tablet 0 Active (TYLENOL-CODEINE #3) tablet by 9 300-30 mg mouth every tabletIndications: 6 (six) Generalized abdominal hours as pain needed for Pain (scale 4-6) or Pain (scale 7-10). pantoprazole 40 mg EC Take 1 30 tablet 0 Active tabletIndications: tablet by 9 Generalized abdominal mouth daily. pain acetaminophen-codeine Take 1 20 tablet 0 Active (TYLENOL-CODEINE #3) tablet by 9 300-30 mg mouth every tabletIndications: 6 (six) Generalized abdominal hours as pain needed for Pain (scale 7-10). ondansetron (ZOFRAN) 4 Take 1 12 tablet 0 Active mg tabletIndications: tablet by 9 Generalized abdominal mouth every pain 8 (eight) hours as needed for Nausea and Vomiting (N/V). traMADol 50 mg Take 1 15 tablet 0 Active tabletIndications: tablet by 9 Hyperkalemia mouth every 6 (six) hours as needed for Pain (scale 4-6). atorvastatin 40 mg Take 1 30 tablet 0 03/16/20 Active tabletIndications: tablet by 9 19 Abdominal pain in male mouth at bedtime for 30 days. carvedilol 12.5 mg Take 1 60 tablet 0 03/16/20 Active tabletIndications: tablet by 9 19 Abdominal pain in male mouth 2 (two) times daily with meals for 30 days. clopidogrel 75 mg Take 1 30 tablet 0 03/16/20 Active tabletIndications: tablet by 9 19 Abdominal pain in male mouth daily for 30 days. furosemide 80 mg Take 1 30 tablet 0 03/17/20 Active tabletIndications: tablet by 9 19 Abdominal pain in male mouth daily for 30 days. hydrALAZINE 50 mg Take 1 60 tablet 0 03/16/20 Active tabletIndications: tablet by 9 19 Abdominal pain in male mouth 2 (two) times daily for 30 days. atorvastatin 10 mg Take 1 90 tablet 1 02/15/20 Discontinued tabletIndications: tablet by 8 19 Coronary artery disease mouth daily. involving coronary bypass graft of [place] heart without angina pectoris, Pure hypercholesterolemia documented as of this encounter (statuses as of 02/14/2019) Active Problems Problem Noted Date Hyperkalemia 02/07/2019 Abdominal pain 01/21/2019 Generalized abdominal pain 01/07/2019 Nonrheumatic aortic valve stenosis 01/06/2019 Pulmonary hypertension 01/06/2019 Bilateral carotid artery disease 01/06/2019 (HFpEF) heart failure with preserved ejection fraction 01/06/2019 Cholecystitis 01/05/2019 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 Overview: Added automatically from request for surgery [id number] Colitis 10/12/2018 E44.0 Moderate protein calorie malnutrition 08/25/2018 Anasarca 08/20/2018 ESRD (end stage renal disease) 08/20/2018 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, macular edema presence unspecified Coronary artery disease involving coronary bypass graft of 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 Utility documented as of this encounter (statuses as of 02/14/2019) Resolved Problems Problem Noted Date Resolved Date [...] retinopathy 12/11/2006 07/09/2013 Overview: ICD10 Diagnosis Term [place] Utility Type II or unspecified type diabetes mellitus without mention 01/01/2006 of complication, not stated as uncontrolled documented as of this encounter (statuses as of 02/14/2019) Immunizations Name Administration Dates Next Due Influenza [...] Sign Reading Time Taken Comments Blood Pressure 189/87 02/14/2019 5:25 PM CDT Pulse 80 02/14/2019 5:25 PM CDT Temperature 36.8 C (98.3 F) 02/14/2019 5:25 PM CDT Respiratory Rate 16 02/14/2019 5:25 PM CDT Oxygen Saturation 90% 02/14/2019 3:35 PM CDT Inhaled Oxygen Concentration - - Weight 57.5 kg (126 lb 11.2 oz) 02/13/2019 9:46 PM CDT Height 165.1 cm (5' 5") 02/13/2019 9:46 PM CDT Body Mass Index 21.08 02/13/2019 9:46 PM CDT documented in this encounter Discharge Summaries Miriam Rodriguez MD - 02/14/2019 5:55 PM CDT Internal Medicine Discharge Summary ADMIT DATE: 02/13/2019 DISCHARGE DATE: 02/14/2019 ATTENDING MD: Miriam Rodriguez MD PCP: Martín Pablo FINAL DIAGNOSIS: (the reason, after study, for admitting the patient to the hospital) Generalized abdominal pain, recurrent HOSPITAL COURSE: 78 y/o male with recurrent abdominal pain presented with recurrent abd pain and hyperkalemia. Patient got dialyzed and cleared for discharge by nephrology. BP meds adjusted, unsure about compliance, updated collar stitcher to f/u outpatient. Dr. Waite general surgeon does not think this is his gallbladder and even if it was, she would not do the surgery due to high risk. A CTA abd was obtained with significant findings (see results below). I discussed it with Dr. Lynn vascular surgery and he thinksabdominal pain could be due to intestinal angina. Patient has significant abd and lower extremity stenosis. Vascular surgery does not recommend AC. Recommendation to f/u with Dr. Fuller vascular in [place] with plavix, statin (patient allergic to asa). 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 Echo done showing lower EF, Dr. Spangler to schedule outpatient nuclear stress test. I called her daughterFelicity to update on the phone. Full Code, advance care planning discussed on admission Spent greater than 35 mins on discharge including chart review, evaluating patient, discussing with patient and/or family, discussing with nursing and/or consultants, discharge summary, reconciling home medications and evaluating labs and imaging. CONSULTING SERVICES: Dr. Waite - General Surgery Dr. Jacobson - nephrology Dr. Spangler - cardiology PROCEDURES: none SIGNIFICANT LAB/X-RAYS: LABS - reviewed pertinent labs as below: CBC BMP PT/INR WBC x10^3 (/uL) Date Value 06/13/2014 7.9 WBC (10*3/L) Date Value 02/13/2019 3.54 (L) NA Date Value 02/13/2019 139 mmol/L 06/13/2014 138 MMOL/L No results found for: PT RBC x10^6 (/uL) Date Value 06/13/2014 3.68 (L) RBC (10*6/L) Date Value 02/13/2019 3.62 (L) K Date Value 02/13/2019 6.1 mmol/L (HH) 06/13/2014 5.4 MMOL/L (H) PT INR (no units) Date Value 01/27/2013 1.1 INR (no units) Date Value 01/21/2019 1.2 PLT x10^3 (/uL) Date Value 06/13/2014 216 PLT (10*3/L) Date Value 02/13/2019 90 (L) CALCIUM Date Value 02/13/2019 8.8 mg/dL 06/13/2014 10.1 MG/DL HGB Date Value 02/13/2019 12.0 g/dL (L) 06/13/2014 11.5 G/DL (L) CL Date Value 02/13/2019 101 mmol/L 06/13/2014 108 MMOL/L aPTT HCT (%) Date Value 02/13/2019 37.0 (L) 06/13/2014 33.2 (L) BUN Date Value 02/13/2019 42 mg/dL (H) 06/13/2014 33 MG/DL (H) APTT (SEC) Date Value 01/25/2013 33 APTT Patient (Seconds) Date Value 01/21/2019 42 (H) CREATININE Date Value 02/13/2019 4.55 mg/dL (H) 06/13/2014 1.74 MG/DL (H) IMAGING - reviewed Hospital Encounter on 02/13/19 CT ANGIOGRAM ABDOMEN/PELVIS Narrative EXAM: CT ABDOMEN AND PELVIS WITH CONTRAST HISTORY: Abdominal pain concern for mesenteric ischemia. COMPARISON: CT abdomen pelvis 01/26/2019. DOSE: Total exam DLP 776 mGy-cm TECHNIQUE AND FINDINGS: CT angiogram of the utilizing contiguous axial imaging from the level of the lung bases through the pubic symphysis was performed after the uncomplicated administration of intravenous Omnipaque contrast and oral Omnipaque contrast. Coronal, sagittal and MIP reconstructions were obtained. Auto mA and/or iterative reconstruction were used to reduce radiation dose. FINDINGS: CTA ABDOMEN/PELVIS: VESSELS: The abdominal aorta is normal in caliber. Inferior calcified and noncalcified atherosclerosis of the descending thoracic and abdominal aorta. Calcified and noncalcified atherosclerosis results in focal high-grade stenosis of the SMA approximately 1 cm from the ostia with distal reconstitution. Moderate calcified atherosclerosis affects the remaining proximal SMA. Conventional celiac axis anatomy. Calcified atherosclerosis present at the ostia of the celiac artery results in focal moderate stenosis without occlusion. Moderate calcified and noncalcified atherosclerosis affects the common hepatic, splenic, and left gastric arteries. Calcified and noncalcified atherosclerosis results in severe focal narrowing of the ostia of the TARI with distal reconstitution. No occlusion. Severe calcified atherosclerosis present at the bilateral renal artery ostia results in mild to moderate bilateral renal artery stenosis. Severe Calcified atherosclerosis of the bilateral internal iliac arteries results in medium, segment high-grade stenosis/near occlusion of the left internal iliac artery with distal reconstitution. The left lateral sacral, superior gluteal, inferior gluteal, pudendal, and popliteal arteries are patent. Moderate stenosis of the inferior gluteal artery is noted. Severe calcified atherosclerosis is present at the common iliac bifurcation and the bilateral external and internal iliac bifurcation. Short segments of the bilateral femoral arteries demonstrate mild to moderate calcified atherosclerosis without significant vessel stenosis. LOWER THORAX: Moderate left and large right pleural effusions with associated compressive atelectasis. Diffuse groundglass opacifications are favored to represent pulmonary edema. Peripheral consolidative opacifications noted within the left lung base and left upper lobe are suspicious for an infectious process. A central venous catheter tip is visualized within the lower SVC. The right atrium measures 7 cm in the AP dimension. The left atrium measures 4.9 cm in the AP dimension. A left atrial appendage is visualized without contrast filling defect to suggest thrombus. Cardiomegaly is present. Moderate trivessel coronary arterial calcifications are noted along with calcifications of the aortic valve and aortic root. Mild calcifications of the mitral annulus are seen. LIVER: Hepatomegaly (19 cm craniocaudally). No focal hepatic lesions. Normal contour. Retrograde flow of contrast through the portal venous system is suggestive of a right heart failure. GALLBLADDER AND BILIARY TREE: No biliary ductal dilation. No gallbladder wall thickening. SPLEEN: No splenomegaly. PANCREAS: No ductal dilation or masses. ADRENAL GLANDS: No adrenal nodules. KIDNEYS: Nonspecific perinephric stranding. The left kidney contains up to 3 nonobstructing renal stones the largest of which measures 0.7 cm in the left superior pole. No hydronephrosis or masses. PERITONEUM AND RETROPERITONEUM: Small volume perihepatic abdominal ascites. No free air. LYMPH NODES: No lymphadenopathy. GI TRACT: No dilation or wall thickening. Mild diverticulosis of the cecum, ascending colon, and descending colon. No pericolonic inflammatory fat stranding is identified. Diffuse bowel wall mucosal enhancement is noted. No pneumatosis intestinalis is seen. PELVIS/BLADDER: The urinary bladder is mildly distended with resultant mild circumferential wall thickening. The prostate gland is normal in size and morphology.. BONES AND SOFT TISSUES: Diffuse osteopenia. Grade 1 right lateral listhesis of L3 on L4. Diffuse mild degenerative changes. Lumbar spine with moderate degenerative changes present at L3-L4. No suspicious lytic or sclerotic bony lesions. Diffuse anasarca. Impression Overall severe calcified atherosclerotic disease of the abdominal aorta, bilateral common iliac, external iliac, internal iliac arteries, and several branches as described above. Significant findings include: 1. Focal high-grade stenosis of the SMA with distal reconstitution. 2. Near complete occlusion of a medium segment of left internal iliac artery with distal reconstitution and patent end branches. 3. Focal high-grade stenosis of the bilateral renal artery ostia. 4. Moderate left pleural effusion and large right pleural effusion with associated compressive atelectasis and pulmonary edema. Additionally, peripheral consolidative opacifications are noted in left lung base and left upper lobe, and are worrisome for an infectious process. 5. Biatrial enlargement with portal venous contrast reflux suggestive of right heart failure. 6. Up to 3 left nonobstructing nephrolithiasis measuring up to 0.7 cm in the left superior pole. 7. Mild diverticulosis of the cecum, ascending colon, descending colon, and sigmoid colon without diverticulitis. 8. Persistent perihepatic abdominal ascites. 9. Hepatomegaly. CT ABDOMEN PELVIS WO CONTRAST Narrative CT Abdomen and Pelvis without contrast. CLINICAL HISTORY: Acute generalized abdominal pain, gastroenteritis or colitis is suspected. TECHNIQUE: Multidetector helical CT acquisition was obtained from the lung bases to the greater trochanters without oral and IV contrast. The images were reviewed in lung, bone, and soft tissue windows. FINDINGS: Absence of oral as well as intravenous contrast media significantly limits evaluation of intra-abdominal organs. Comparison has been made with ultrasound study of 02/07/[address] studies of 01/26/2019. Lower lungs: Moderate sized right-sided and small left pleural effusion with congestion/atelectatic changes in the adjacent left lower lung, right lower lung as well as right middle lobe. Superimposed infection cannot be excluded by this examination. Liver, Gallbladder and Spleen: No acute findings. Peritoneum: No free air. Small amount of free fluid is seen surrounding the liver, spleen and in the pelvis. No lymphadenopathy. Pancreas and Adrenals: Unremarkable pancreas and adrenal glands. Kidneys and Ureters: No visible calculi in the renal collecting systems. No hydroureter or hydronephrosis. Vessels: Atherosclerosis of aorta and major intra-abdominal arteries including renal arteries and superior mesenteric/splenic artery and some of the branches. Retroperitoneum: No abnormal fluid or lymphadenopathy. Bowel: Diverticulosis of large bowel noted without any acute changes of diverticulitis. No definite CT changes of colitis or enteritis are visualized. Bladder and Reproductive Organs: Enlarged prostate. Bones: Lumbar levoscoliosis, moderate degenerative disc disease at L3-L4 and lower 2 lumbar levels facet arthritis. Soft tissues: Diffusely congested soft tissues without any focal abnormalities. CONCLUSION: 1. Bilateral pleural effusion, larger on the right side with congestion/atelectatic changes in the lungs. Superimposed infiltrate cannot be ruled out. No significant change compared with 01/26/2019 study. 2. Small amount of free fluid surrounding the liver, spleen and in the pelvis, unchanged compared with 01/26/2019 study. Subjective No abd pain, no chest pain, no n/v Physical Exam NAD Anicteric sclera, oral mucosa clear Good air entry b/l RRR, nl s1s2 Abd soft NT No significant LE, no calf tenderness AAO, no gross deficits Skin warm and dry Bilateral knees not red or swollen FUNCTIONAL STATUS: ambulate with assistance DISCHARGE CONDITION: fair COGNITIVE STATUS: forgetful DIET: renal ACTIVITY: as tolerated DISCHARGE MEDICATIONS: Current Discharge Medication List START taking these medications Details carvedilol (COREG) 12.5 mg Take 12.5 mg by mouth 2 (two) times daily with meals. Qty: 60 tablet, Refills: 0 Start date: 02/14/2019, End date: 03/16/2019 Associated Diagnoses: Abdominal pain in male clopidogrel (PLAVIX) 75 mg Take 75 mg by mouth daily. Qty: 30 tablet, Refills: 0 Start date: 02/14/2019, End date: 03/16/2019 Associated Diagnoses: Abdominal pain in male furosemide (LASIX) 80 mg Take 80 mg by mouth daily. Qty: 30 tablet, Refills: 0 Start date: 02/15/2019, End date: 03/17/2019 Associated Diagnoses: Abdominal pain in male hydrALAZINE (APRESOLINE) 50 mg Take 50 mg by mouth 2 (two) times daily. Qty: 60 tablet, Refills: 0 Start date: 02/14/2019, End date: 03/16/2019 Associated Diagnoses: Abdominal pain in male CONTINUE these medications which have CHANGED Details atorvastatin (LIPITOR) 40 mg Take 40 mg by mouth at bedtime. Qty: 30 tablet, Refills: 0 Start date: 02/14/2019, End date: 03/16/2019 Associated Diagnoses: Abdominal pain in male CONTINUE these medications which have NOT CHANGED Details traMADol (ULTRAM) 50 mg Take 50 mg by mouth every 6 (six) hours as needed for Pain (scale 4-6). Qty: 15 tablet, Refills: 0 Associated Diagnoses: Hyperkalemia !! acetaminophen-codeine (TYLENOL #3) 1 tablet Take [...] nephropathy, with long-term current use of insulin !! Blood-Glucose Meter Kit Use as directed Qty: 1 Kit, Refills: 0 Comments: Please provide meter covered by insurance DX. E11.21 testing daily !! - Potential duplicate medications found. Please discuss with provider. PATIENT EDUCATION PROVIDED: medications DISCHARGE: home health FOLLOW-UP APPOINTMENT: Future Appointments Provider Department Dept Phone Center 04/22/2019 10:00 AM Martín Pablo, [facility] [place] [phone] Please call [employer] services at [phone] to contact Miriam Rodriguez MD with any questions. documented in this encounter Discharge Instructions Harriet Bowman RN - 02/14/2019 Patient Discharge Instructions Discharge date: 02/14/2019 Procedure(s): Discharge Orders Discharge Follow-up: PCP MARTÍN PABLO; 3-5 Days To PCP: MARTÍN PABLO [[id number]] Patient's Preferred Location: Unknown Discharge Disposition: Home Health not related to Admit, (ARS) When (Patients with risk for unplanned readmission score over 16 or those noted as Hospital Dependent should follow up within 7 days with PCP or primary DX specialist): 3-5 Days Risk of Unplanned Readmission:( Score greater than 16 indicates high risk) 48 Renal II (2 g Na, 2 g K, 60 g Protein, 900 mg Phos) Diabetic Consistent Carbohydrates (1800 Calorie)Diet - includes HS Snack; Texture: Regular. Texture Regular. Diabetic: NIDDM Discharge Condition - Discharge Condition: FAIR Discharge Activity Discharge Activity: Ambulate with Assistance Discharge Follow-Up: Specialty Service IM-CARDIOVASCULAR DISEASE; 1 Week Specialty: IM-CARDIOVASCULAR DISEASE [4] Patient's Preferred Location: Unknown Discharge Disposition: Home Health not related to Admit, (ARS) When (Patients with risk for unplanned readmission score over 16 or those noted as Hospital Dependent should follow up within 7 days with PCP or primary DX specialist): 1 Week Risk of Unplanned Readmission:( Score greater than 16 indicates high risk) 48 Discharge Follow-Up: Specialty Service NILAY-VASCULAR SURGERY; 3-5 Days Specialty: NILAY-VASCULAR SURGERY [50] Patient's Preferred Location: [place] Discharge Disposition: Home Health not related to Admit, (ARS) When (Patients with risk for unplanned readmission score over 16 or those noted as Hospital Dependent should follow up within 7 days with PCP or primary DX specialist): 3-5 Days Risk of Unplanned Readmission:( Score greater than 16 indicates high risk) 48 Discharge Follow-Up: Specialty Service NILAY-SURGERY; 2 Weeks Specialty: NILAY-SURGERY [11] Patient's Preferred Location: Unknown Discharge Disposition: Home Health not related to Admit, (ARS) When (Patients with risk for unplanned readmission score over 16 or those noted as Hospital Dependent should follow up within 7 days with PCP or primary DX specialist): 2 Weeks Risk of Unplanned Readmission:( Score greater than 16 indicates high risk) 48 Discharge Follow-Up: Specialty Service IM-GASTROENTEROLOGY; 2 Weeks Specialty: IM-GASTROENTEROLOGY [10] Patient's Preferred Location: Unknown Discharge Disposition: Home Health not related to Admit, (ARS) When (Patients with risk for unplanned readmission score over 16 or those noted as Hospital Dependent should follow up within 7 days with PCP or primary DX specialist): 2 Weeks Risk of Unplanned Readmission:( Score greater than 16 indicates high risk) 48 VTE Propylaxis- Was ordered during hospitalization Discharge Instructions Order Comments: Follow up Dr. Fuller vascular surgeon as soon as possible. Follow up with Dr. Spangler cardiology about stress test. Please monitor blood pressure and discuss bp medications with collar stitcher and primary care physician. Take Home Medications These are medications ordered for you by your healthcare provider. Do not take any other medications or supplements unless advised by your healthcare provider. Current Discharge Medication List START taking these medications Details carvedilol 12.5 mg tablet Take 1 tablet by mouth 2 (two) times daily with meals for 30 days. Qty: 60 tablet, Refills: 0 Associated Diagnoses: Abdominal pain in male clopidogrel 75 mg tablet Take 1 tablet by mouth daily for 30 days. Qty: 30 tablet, Refills: 0 Associated Diagnoses: Abdominal pain in male furosemide 80 mg tablet Take 1 tablet by mouth daily for 30 days. Qty: 30 tablet, Refills: 0 Associated Diagnoses: Abdominal pain in male hydrALAZINE 50 mg tablet Take 1 tablet by mouth 2 (two) times daily for 30 days. Qty: 60 tablet, Refills: 0 Associated Diagnoses: Abdominal pain in male CONTINUE these medications which have CHANGED Details atorvastatin 40 mg tablet Take 1 tablet by mouth at bedtime for 30 days. Qty: 30 tablet, Refills: 0 Associated Diagnoses: Abdominal pain in male CONTINUE these medications which have NOT CHANGED Details traMADol 50 mg tablet Take 1 tablet by mouth every 6 (six) hours as needed for Pain (scale 4-6). Qty: 15 tablet, Refills: 0 Associated Diagnoses: Hyperkalemia !! acetaminophen-codeine (TYLENOL-CODEINE #3) 300-30 mg tablet Take 1 tablet by mouth every 6 (six) hours as needed for Pain (scale 7-10). Qty: 20 tablet, Refills: 0 Associated Diagnoses: Generalized abdominal pain ondansetron (ZOFRAN) 4 mg tablet Take 1 tablet by mouth every 8 (eight) hours as needed for Nausea and Vomiting (N/V). Qty: 12 tablet, Refills: 0 Associated Diagnoses: Generalized abdominal pain !! acetaminophen-codeine (TYLENOL-CODEINE #3) 300-30 mg tablet Take 1 tablet by mouth every 6 (six) hours as needed for Pain (scale 4-6) or Pain (scale 7-10). Qty: 20 tablet, Refills: 0 Associated Diagnoses: Generalized abdominal pain pantoprazole 40 mg EC tablet Take 1 tablet by mouth daily. Qty: 30 tablet, Refills: 0 Associated Diagnoses: Generalized abdominal pain terbinafine HCl (LAMISIL AT) 1 % cream Apply to area(s) 2 (two) times daily. Qty: 1 Tube, Refills: 3 Associated Diagnoses: Tinea pedis of both feet amLODIPine 10 mg tablet Take 1 tablet by mouth daily. Qty: 90 tablet, Refills: 0 Comments: No refills until patient sets a follow up docusate 100 mg capsule Take 1 capsule by mouth daily. Qty: 30 capsule, Refills: 3 Associated Diagnoses: Constipation, unspecified constipation type latanoprost 0.005 % ophthalmic drops Place 1 Drop in both eyes every evening. Qty: 3 Bottle, Refills: 2 Associated Diagnoses: End-stage glaucoma NITROGLYCERIN 0.[address] 1 TABLET UNDER THE TONGUE EVERY 5 ( FIVE) MINUTES NEEDED FOR CHEST PAIN. Qty: 75 tablet, Refills: 0 Associated Diagnoses: Stable angina pectoris brinzolamide 1 % ophthalmic suspension drops Place 1 Drop in both eyes 3 (three ) times daily. Qty: 10 mL, Refills: 1 Associated Diagnoses: End-stage glaucoma clonazePAM 0.5 mg tablet Take 1 tablet by mouth 3 (three) times daily as [...] nephropathy, with long-term current use of insulin !! Blood-Glucose Meter Kit Use as directed Qty: 1 Kit, Refills: 0 Comments: Please provide meter covered by insurance DX. E11.21 testing daily !! - Potential duplicate medications found. Please discuss with provider. Follow-up appointments: Your follow up appointment with your surgeon has been made. Appointment Date: , Appointment Time . For questions regarding follow-up instructions call the [facility] Hotline at or If you experience any of the following symptoms , please follow up with . For worsening symptoms/changing condition/problems or questions: Non-emergency/urgent: Call the [facility] Hotline at or or Emergency: Go to the closest emergency room or call [phone] Translated by Date Time If you receive the patient satisfaction survey by mail please complete and return and let us know how we are doing. TOBACCO AVOIDANCE Exposure to tobacco either from smoking or from second hand (environmental) smoke or smokeless tobacco (snuff) is damaging to your health. This information is to encourage everyone to avoid tobacco exposure. It is recommended that you: ? If you smoke or use smokeless tobacco, we encourage you to quit. ? If you have already quit smoking, continue your good work! ? If you do not smoke or use smokeless tobacco, do not start. ? Avoid secondhand smoke. Additional Resources You may want to contact these organizations for further information on smoking and how to quit. [place] [employer], http://www.lungusa.org/stop-smoking/ [place] [employer], http://www.cancer.org/Healthy/StayAwayfromTobacco/index [place] [employer], http://www.heart.org/HEARTORG/GettingHealthy/ QuitSmoking/Quit-Smoking_[facility]_001085_SubHomePage.jsp AttachmentsThe following attachments cannot be sent through Care Everywhere.Abdominal Pain, Adult (Togolese)Atorvastatin tablets (Togolese) Carvedilol tablets (Togolese)Clopidogrel tablets (Togolese)Furosemide tablets ( Togolese)Hydralazine tablets (Togolese)documented in this encounter Progress Notes Roxi Aguillon, JESSIE - 02/14/2019 3:24 PM CDTSubjective Patient ID: Blaise Quarles is a 78 year old male. Care Management Social Functional Assessment Patient Name: Blaise Quarles Age: [age] year old Sex: male Patient's Previous Admission Date at [facility]: 01/05/2019 Current diagnosis and co-morbidities: HYPERKEALEMIA Readmission Questions: Was patient discharged from any acute care hospital within the last 30 days: No Social Functional Assessment: Primary language spoken/preferred: Hong Konger Mental Status: Alert & Oriented to Person,Place & Time Information given by: Child Patient's support system: Spouse;Child Name and number of support system: Bouchra Quarles, and Harriet Arshad, dtr [phone] 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 Bulk Pigment Reducer: Self MPOA: No Living Arrangement: Home Address of living arrangement : [address] [place] [id number] Persons living in home: Self;Spouse Names & numbers of persons living in home: Bouchra Quarles, dtr [phone] and Harriet Arshad, vannessa [phone] Barriers to returning home: None Baseline functional status- ambulation: Requires minimal to moderate assistance Functional status-baseline personal care: Requires minimal to moderate assistance Baseline functional status- driving: Dependent Baseline functional status- grocery shopping: Dependent Functional status-baseline housekeeping: Dependent Functional status-baseline meal prep: Dependent Current functional status same as prior: Yes Do you have a PCP?: Yes Name of PCP: Dr. Pablo Home Health Care Agency: No Provider Services: No DME Company: No Equipment: Wheelchair: Manual;Shower Chair Hemodialysis: Yes Dialysis Facility: Other Name of Other Dialysis Facility: [facility] Dialysis Schedule: TTS Dialysis Time: 153 Mode of Transportation: Family Last Dialysis date at Dialysis Center: 02/12/19 Community resources utilized: None Funding Resources: Medicare A & B;Medicaid Prescription coverage plan: Medicaid-3 slots Pharmacy where meds are filled: Other Other pharmacy: [facility] [place] Anticipated services prior to disharge: Continue Medical Eval Expected mode of discharge transportation: Same as support system Additional Recommendations for DC: Medical clearance, resume dialysis Additional info required for discharge planning: Pending medical evaluation Recommended discharge plan: Home SFA Complete: Social Functional Assessment complete: Yes Alcohol Use Screening (AUDIT-C) How often do you have a drink containing alcohol?: Never SCORE: 0 Did patient elect to have resources provided: No Role of Care Management explained. Any issues or concerns with obtaining/affording your medications at home: no. Are you or your support system able to brass pickler medications at discharge: yes. Review of Systems Objective Physical Exam Assessment/Plan Home with support of family JESSIE Blanton Draw Frame Tender - Care Management [facility] [phone] [email or web address] albright - 02/14/2019 10:14 AM CDT Medical Nutrition Therapy - Progress Note: Reason For Consultation:club former for positive initial nutrition screen: Age, disease severity, decreased intake Admission Chief Complaint: Chief Complaint Patient presents with Abdominal Pain Problem List/Diagnosis: Problem List Items Addressed This Visit None Visit Diagnoses Abdominal pain in male - Primary Nutrition Assessment PMH/PSH: Past Medical History: Diagnosis Date Blind CKD (chronic kidney disease), stage III CORONARY ATHEROSCLER UNSPEC VESSEL 09/30/2007 DIABETES TYPE II W EYE MANIF-UNCONTRLLD 09/30/2007 Dialysis patient , Thursday Discoid lupus erythematosus Glaucoma NEOVASCULAR HYPERLIPIDEMIA NEC/NOS 09/30/2007 CT (myocardial infarction) 2001 Osteoarthritis Paralytic strabismus, third or oculomotor nerve palsy, total L 3RD NERVE PALSY Unspecified essential hypertension 09/30/2007 Past Surgical History: Procedure Laterality Date CABG, ARTERY-VEIN, THREE 07/02/2016 Done at [facility] CARDIAC CATH PHYSICIAN 2011 At [place] EYE INJECTION (SPECIFY) PHACOEMULSIFICATION OF CATARACT WITH INTRAOCULAR LENS IMPLANT 02/08/2013 Surgeon: Matthew Serna MD; Location: [facility] LOCATION PHACOEMULSIFICATION OF CATARACT WITH INTRAOCULAR LENS IMPLANT 03/08/2013 Surgeon: Matthew Serna MD; Location: [facility] LOCATION GI and Nutrition Related Findings: GI Symptoms: Abdominal Pain Difficulty Chewing/Swallowing: N/A GI tract alteration: N/A Alternative means of nutrition: N/A General: N/A Medications: Current Facility-Administered Medications: clonazePAM (KLONOPIN) tablet 0.5 mg, 0.5 mg, Oral, TIBelkys GAUTAM Yaman, MD diphenhydrAMINE (BENADRYL) injection 12.5 mg, 12.5 mg, Slow IV Push, DIALYSIS ONCE PRN - [facility], Dash Jacobson G, DO heparin 1,000 unit/mL injection 1,500 Units, 1,500 Units, Slow IV Push, DIALYSIS ONCE - PT ROOMFOLLOWED BY heparin 1,000 unit/mL injection 1,500 Units, 1,500 Units, Slow IV Push, DIALYSIS ONCE - PT ROOM, Dash Jacobson G, DO heparin 1,000 unit/mL injection 5,000 Units, 5,000 Units, Slow IV Push, DIALYSIS ONCE - [facility], Dash Jacobson G, DO morpHINE injection 2 mg, 2 mg, Slow IV Push, Q6HPRN, Miriam Rodriguez MD NaCl 0.9% (NS) injection 10 mL, 10 mL, Slow IV Push, DIALYSIS ONCE - [facility], Dash Jacobson G,DO ondansetron (ZOFRAN (PF)) injection 4 mg, 4 mg, Slow IV Push, DIALYSIS ONCE PRN - [facility], Dash Jacobson G, DO pantoprazole (PROTONIX) EC tablet 40 mg, 40 mg, Oral, DAILY, Alejandro Rizvi MD, 40 mg at 02/14/19 0928 simethicone (GAS RELIEF) chewable tablet 80 mg, 80 mg, Oral, PC+HS, Miriam Rodriguez MD, 80 mg at 02/14/19 1000 sodium polystyrene sulfonate (KAYEXALATE) suspension 30 g, 30 g, Oral, ONCE , Miriam Rodriguez MD acetaminophen (TYLENOL) tablet 650 mg, 650 mg, Oral, Q6HPRN, Alejandro Rizvi MD dextrose 50 % in water (D50W) injection 25 mL, 25 mL, Slow IV Push, PRN, Alejandro Rizvi MD, 50 mL at 02/14/19 0038 glucagon (GLUCAGEN DIAGNOSTIC KIT) injection 1 mg, 1 mg, Intramuscular, PRN , Alejandro Rizvi MD traMADol (ULTRAM) tablet 50 mg, 50 mg, Oral, Q8HPRN, Alejandro Rizvi MD Lab and Medical Test Results: NA Date Value 02/13/2019 139 mmol/L 06/13/2014 138 MMOL/L K Date Value 02/13/2019 6.1 mmol/L (HH) 06/13/2014 5.4 MMOL/L (H) CALCIUM Date Value 02/13/2019 8.8 mg/dL 06/13/2014 10.1 MG/DL ALBUMIN Date Value 02/13/2019 4.4 g/dL 05/12/2014 4.4 G/DL PHOSPHORUS Date Value 01/07/2019 3.7 mg/dL 01/27/2013 4.4 MG/DL CL Date Value 02/13/2019 101 mmol/L 06/13/2014 108 MMOL/L BUN Date Value 02/13/2019 42 mg/dL (H) 06/13/2014 33 MG/DL (H) CREATININE Date Value 02/13/2019 4.55 mg/dL (H) 06/13/2014 1.74 MG/DL (H) GLUCOSE Date Value 02/13/2019 110 mg/dL 06/13/2014 176 MG/DL (H) HGB A1C Date Value 01/21/2019 4.6 % NGSP 05/12/2014 10.1 % (H) CO2 TOTAL Date Value 02/13/2019 25 mmol/L 06/13/2014 20 MMOL/L (L) T PROTEIN Date Value 02/13/2019 7.9 g/dL 05/12/2014 7.6 G/DL ALT(SGPT) (U/L) Date Value 02/13/2019 17 05/12/2014 35 AST(SGOT) (U/L) Date Value 02/13/2019 48 (H) 05/12/2014 26 No results found for: CRP WBC x10^3 (/uL) Date Value 06/13/2014 7.9 WBC (10*3/L) Date Value 02/13/2019 3.54 (L) Intake/Output Summary (Last 24 hours) at 02/14/2019 1014 Last data filed at 02/14/2019 0038 Gross per 24 hour Intake 236 ml Output Net 236 ml Antropometric: Age: [age] year old Sex: male Ht: 5'5" Ht Readings from Last 3 Encounters: 02/13/19 1.651 m (5' 5") 02/10/19 1.651 m (5' 5") 01/21/19 1.651 m (5' 5") Current Wt: 126lb/58kg BMI: Body mass index is 21.08 kg/m. IBW for Ht: 136/lb 62 kg %IBW: 94% Weight History: Wt Readings from Last 10 Encounters: 02/13/19 57.5 kg (126 lb 11.2 oz) 02/10/19 55.3 kg (122 lb) 02/07/19 58 kg (127 lb 13.9 oz) 01/25/19 54.9 kg (121 lb) 01/22/19 55.2 kg (121 lb 11.1 oz) 01/14/19 60.4 kg (133 lb 3.2 oz) 11/03/18 57.6 kg (127 lb) 10/25/18 57.6 kg (127 lb) 10/20/18 57.9 kg (127 lb 9.6 oz) 10/17/18 57.2 kg (126 lb) Current Dietary Order(s): Orders Placed This Encounter Procedures Renal I (2.5 g Na, 2.5 g K, 90 g Protein, 1200 mg Phos) Diet; Texture: Regular. EMR documented food allergies/intolerance/cultural preferences: No known food allergies Nutrition Focused Physical Exam- See SGA flowsheet for details Nutritional Diagnosis: Moderate protein calorie malnutrition SGA Rating: Mild / Moderate Nutrition/Related History: Last bowel movement (LBM)per EMR I/O: 02/09 Mr. Quarles is a 78 y/o male with PMH including ESRD, HTN admitted to the hospital related to abdominalpain. Principal problems for this admission include hyperkalemia, chronic abdominal pain, CHF. Nutrition Diagnosis: PES #1: Moderate malnutrition related to chronic disease/illness as evidenced by moderate muscle mass loss, moderate body fat loss Nutrition Interventions: 1. Recommend more aggressive bowel regimen 2. Monitor bowel movements 3. Monitor p.o. Intake/tolerance Goals: 1. Patient will tolerate > 75% of provided meals Nutrition Monitoring and Evaluation: A registered dietitian will f/u as indicated to review patients progress toward nutriton goals, report nutrition related information, and revise the nutrition recommendations and interventions. Please call with any question or concerns, thank-you. Discharge Needs: Consume diet adequate in protein and calories Sanjuanita Figueroa, MPH, RD, LD Clinical Dietitian Office: [phone] signed by Sanjuanita Figueroa at 02/14/2019 10:19 AM CDTdocumented in this encounter Plan of Treatment Date Type Specialty Care Team Description 04/22/2019 Office Visit Internal Medicine Martín Pablo, [id number] [place], [place] [id number] Name Type Priority Associated Diagnoses Order Schedule Urinalysis LAB STAT Abdominal pain in male STAT for 1 Occurrences starting 02/13/2019 until 02/13/2019 Basic Metabolic Panel LAB Routine EVERY MORNING AT 0400 (NA, K, CL, CO2, for 1 Occurrences GLUCOSE, BUN, starting 02/14/2019 CREATININE, CA) until 02/14/2019 Health Maintenance Due Date Last Done Comments [...] 11/20/2017, 10/31/2015, Additional history exists CREATININE (SERUM) 02/14/2020 02/13/2019, 02/10/2019, 02/08/2019, Additional history exists PNEUMOCOCCAL VACCINES 65+ Completed 07/04/2017, 09/28/2015, 10/01/2007 documented as of this encounter Implants Implanted Type Area Glue Cook Device Shelf Model / Serial Identifier Expiration / Lot Date Lens, Faustino #[id number] 24.0d - [id number] LENS Left: Eye Faustino 11/09/2016 [id number] 24.0D / Implanted: Qty: 1 on 02/08/2013 by Matthew Serna MD at [facility] / [id number] - Tray, Faustino Lens (Virtual) - 1 - Lens, Faustino #[id number] 24.0d LENS Right: Faustino 01/06/2018 [id number] 24.0D / Implanted: Qty: 1 on 03/08/2013 at [facility] Eye [id number] / documented as of this encounter Procedures Procedure Name Priority Date/Time Associated Comments Diagnosis CT ANGIOGRAM STAT 02/14/2019 11:43 Abdominal pain in Results for this ABDOMEN/PELVIS AM CDT male procedure are in the results section. POCT GLUCOSE Routine 02/14/2019 10:39 Results for this (AUTOMATED) AM CDT procedure are in the results section. POCT GLUCOSE Routine 02/14/2019 1:06 Results for this (AUTOMATED) AM CDT procedure are in the results section. POCT GLUCOSE Routine 02/14/2019 12:29 Results for this (AUTOMATED) AM CDT procedure are in the results section. POCT GLUCOSE Routine 02/13/2019 11:23 Results for this (AUTOMATED) PM CDT procedure are in the results section. EKG-12 LEAD STAT 02/13/2019 9:18 PM CDT CBC WITH DIFFERENTIAL STAT 02/13/2019 7:31 Abdominal pain in Results for this PM CDT male procedure are in the results section. CBC WITH DIFF Routine 02/13/2019 7:31 Abdominal pain in Results for this PM CDT male procedure are in the results section. BASIC METABOLIC PANEL STAT 02/13/2019 7:31 Abdominal pain in Results for this (NA, K, CL, CO2, PM CDT male procedure are in GLUCOSE, BUN, the results CREATININE, CA) section. HEPATIC FUNCTION STAT 02/13/2019 7:31 Abdominal pain in Results for this PANEL (54623) PM CDT male procedure are in (ALB,T.PRO,BILI the results T,BU/BC,ALT,AST,ALK section. PHOS) LIPASE STAT 02/13/2019 7:31 Abdominal pain in Results for this PM CDT male procedure are in the results section. CT ABDOMEN PELVIS WO STAT 02/13/2019 6:53 Abdominal pain in Results for this CONTRAST PM CDT male procedure are in the results section. CONSENT/REFUSAL FOR Routine 02/13/2019 5:53 DIAGNOSIS AND PM CDT TREATMENT documented in this encounter Results CT ANGIOGRAM ABDOMEN/PELVIS (02/14/2019 11:43 AM CDT) Specimen Impressions Performed At PACS/VR/DOSE Overall severe calcified atherosclerotic disease of the abdominal aorta, bilateral common iliac, external iliac, internal iliac arteries, and several branches as described above. No evidence of acute mesenteric ischemia. Significant findings include: 1.Moderate left pleural effusion and large right pleural effusion with associated compressive atelectasis and pulmonary edema. Additionally, peripheral consolidative opacifications are noted in left lung base and left upper lobe, and are worrisome for an infectious process. 2.Biatrial enlargement with IVC and hepaticvenous contrast reflux suggestive of right heart failure. 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 4.Mesenteric collaterals between celiac and SMA and between SMA and TARI . 5.No bowel wall thickening to suggest acute ischemia. 6.B/L renal artery stenosis.Please see description above 7.Up to 3 left nonobstructing nephrolithiasis measuring up to 0.7 cm in the left superior pole. 8.Mild diverticulosis of the cecum, ascending colon, descending colon, and sigmoid colon without diverticulitis. 9.Persistent perihepatic abdominal ascites. 10.Hepatomegaly. An addendum would be added after loading more thin section images as required. ITonio MD., have reviewed this study and agree with the above report. Narrative Performed At EXAM: CT ABDOMEN AND PELVIS WITH CONTRAST PACS/VR/DOSE HISTORY: Abdominal pain concern for mesenteric ischemia. COMPARISON: CT abdomen pelvis 01/26/2019. DOSE: Total exam DLP 776 mGy-cm TECHNIQUE AND FINDINGS: CT angiogram of the utilizing contiguous axial imaging from the level of the lung bases through the pubic symphysis was performed after the uncomplicated administration of intravenous Omnipaque contrast and oral Omnipaque contrast. Coronal, sagittal and MIP reconstructions were obtained.Auto mA and/or iterative reconstruction were used to reduce radiation dose. FINDINGS: CTA ABDOMEN/PELVIS: VESSELS: The abdominal aorta is normal in caliber. Inferior calcified and noncalcified atherosclerosis of the descending thoracic and abdominal aorta. Conventional celiac axis anatomy. Calcified atherosclerosis present at the ostia of the celiac artery results in focal moderate stenosis without occlusion. Moderate calcified and noncalcified atherosclerosis affects the common hepatic, splenic, and left gastric arteries. Difficult to assess degree of luminal narrowing of mesenteric vessels in the background of heavy atherosclerotic calcifications.Focal high-grade stenosis/ Occlusion of the SMA approximately 1 cm from the ostia with distal reconstitution. Moderate calcified atherosclerosis affects the remaining proximal SMA. Calcified and noncalcified atherosclerosis results in severe focal narrowing of the ostia of the TARI with distal reconstitution or retrograde filling. Large pancreaticoduodenal arcade collaterals between celiac and SMA circulation. Enlarged collaterals between superior and inferior mesenteric circulations Right kidney is supplied by 3 renal arteries and left kidney by 2 arteries. Right renal arteries: A small sized upper polar artery shows moderate to severe stenosis at ostium/ Right main renal artery shows sense short segment calcification at the ostium and is likely has moderate stenosis. Another smaller right renal accessory artery is patent. Two renal arteries supply left kidney. The main left renal artery shows mild stenosis. Accessory left renal artery insertion is not well visualized on 5 mm images provided. Calcified atherosclerosis is present at the common iliac bifurcation and the bilateral external and internal iliac bifurcation. Right distal common iliac artery shows mild stenosis. Severe Calcified atherosclerosis of the bilateral internal iliac arteries results in medium, segment high-grade stenosis/near occlusion of the left internal iliac artery with distal reconstitution. The left lateral sacral, superior gluteal, inferior gluteal, and pudendal arteries are patent. Moderate stenosis of the inferior gluteal artery is noted. Short segments of the bilateral femoral arteries demonstrate mild to moderate calcified atherosclerosis without significant vessel stenosis. LOWER THORAX: Moderate left and large right pleural effusions with associated compressive atelectasis. Diffuse groundglass opacifications are favored to represent pulmonary edema. Peripheral consolidative opacifications noted within the left lung base and left upper lobe are suspicious for an infectious process. A central venous catheter tip is visualized within the lower SVC. The right atrium measures 7 cm in the AP dimension. The left atrium measures 4.9 cm in the AP dimension. A left atrial appendage is visualized without contrast filling defect to suggest thrombus. Cardiomegaly is present. Moderate to severe [place] coronary arterial calcifications are noted along with calcifications of the aortic valve and aortic root. Mild calcifications of the mitral annulus are seen. Changes of CABG.Three vessel venous graft are patent. LIVER: Hepatomegaly (19 cm craniocaudally). No focal hepatic lesions. Normal contour. Retrograde flow of contrast through the portal venous system is suggestive of a right heart failure. GALLBLADDER AND BILIARY TREE: No biliary ductal dilation.No gallbladder wall thickening. SPLEEN: No splenomegaly. PANCREAS: No ductal dilation or masses. ADRENAL GLANDS: No adrenal nodules. KIDNEYS: Nonspecific perinephric stranding. The left kidney contains up to 3 nonobstructing renal stones the largest of which measures 0.7 cm in the left superior pole. No hydronephrosis or masses. PERITONEUM AND RETROPERITONEUM: Small volume perihepatic abdominal ascites. No free air. LYMPH NODES: No lymphadenopathy. GI TRACT: No dilation or wall thickening. Mild diverticulosis of the cecum, ascending colon, and descending colon. No pericolonic inflammatory fat stranding is identified. Diffuse bowel wall mucosal enhancement is noted. No pneumatosis intestinalis is seen. No obvious small or large wall thickening. PELVIS/BLADDER: The urinary bladder is mildly distended with resultant mild circumferential wall thickening. The prostate gland is normal in size and morphology.. BONES AND SOFT TISSUES: Diffuse osteopenia. Grade 1 right lateral listhesis of L3 on L4. Diffuse mild degenerative changes. Lumbar spine with moderate degenerative changes present at L3-L4. No suspicious lytic or sclerotic bony lesions. Diffuse anasarca. Procedure Note [facility], Radiant Results Inft User - 02/14/2019 6:23 PM CDT EXAM: CT ABDOMEN AND PELVIS WITH CONTRAST HISTORY: Abdominal pain concern for mesenteric ischemia. COMPARISON: CT abdomen pelvis 01/26/2019. DOSE: Total exam DLP 776 mGy-cm TECHNIQUE AND FINDINGS: CT angiogram of the utilizing contiguous axial imaging from the level of the lung bases through the pubic symphysis was performed after the uncomplicated administration of intravenous Omnipaque contrast and oral Omnipaque contrast. Coronal, sagittal and MIP reconstructions were obtained. Auto mA and/or iterative reconstruction were used to reduce radiation dose. FINDINGS: CTA ABDOMEN/PELVIS: VESSELS: The abdominal aorta is normal in caliber. Inferior calcified and noncalcified atherosclerosis of the descending thoracic and abdominal aorta. Conventional celiac axis anatomy. Calcified atherosclerosis present at the ostia of the celiac artery results in focal moderate stenosis without occlusion. Moderate calcified and noncalcified atherosclerosis affects the common hepatic, splenic, and left gastric arteries. Difficult to assess degree of luminal narrowing of mesenteric vessels in the background of heavy atherosclerotic calcifications. 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 Moderate calcified atherosclerosis affects the remaining proximal SMA. Calcified and noncalcified atherosclerosis results in severe focal narrowing of the ostia of the TARI with distal reconstitution or retrograde filling. Large pancreaticoduodenal arcade collaterals between celiac and SMA circulation. Enlarged collaterals between superior and inferior mesenteric circulations Right kidney is supplied by 3 renal arteries and left kidney by 2 arteries. Right renal arteries: A small sized upper polar artery shows moderate to severe stenosis at ostium/ Right main renal artery shows sense short segment calcification at the ostium and is likely has moderate stenosis. Another smaller right renal accessory artery is patent. Two renal arteries supply left kidney. The main left renal artery shows mild stenosis. Accessory left renal artery insertion is not well visualized on 5 mm images provided. Calcified atherosclerosis is present at the common iliac bifurcation and the bilateral external and internal iliac bifurcation. Right distal common iliac artery shows mild stenosis. Severe Calcified atherosclerosis of the bilateral internal iliac arteries results in medium, segment high-grade stenosis/near occlusion of the left internal iliac artery with distal reconstitution. The left lateral sacral, superior gluteal, inferior gluteal, and pudendal arteries are patent. Moderate stenosis of the inferior gluteal artery is noted. Short segments of the bilateral femoral arteries demonstrate mild to moderate calcified atherosclerosis without significant vessel stenosis. LOWER THORAX: Moderate left and large right pleural effusions with associated compressive atelectasis. Diffuse groundglass opacifications are favored to represent pulmonary edema. Peripheral consolidative opacifications noted within the left lung base and left upper lobe are suspicious for an infectious process. A central venous catheter tip is visualized within the lower SVC. The right atrium measures 7 cm in the AP dimension. The left atrium measures 4.9 cm in the AP dimension. A left atrial appendage is visualized without contrast filling defect to suggest thrombus. Cardiomegaly is present. Moderate to severe [place] coronary arterial calcifications are noted along with calcifications of the aortic valve and aortic root. Mild calcifications of the mitral annulus are seen. Changes of CABG. Three vessel venous graft are patent. LIVER: Hepatomegaly (19 cm craniocaudally). No focal hepatic lesions. Normal contour. Retrograde flow of contrast through the portal venous system is suggestive of a right heart failure. GALLBLADDER AND BILIARY TREE: No biliary ductal dilation. No gallbladder wall thickening. SPLEEN: No splenomegaly. PANCREAS: No ductal dilation or masses. ADRENAL GLANDS: No adrenal nodules. KIDNEYS: Nonspecific perinephric stranding. The left kidney contains up to 3 nonobstructing renal stones the largest of which measures 0.7 cm in the left superior pole. No hydronephrosis or masses. PERITONEUM AND RETROPERITONEUM: Small volume perihepatic abdominal ascites. No free air. LYMPH NODES: No lymphadenopathy. GI TRACT: No dilation or wall thickening. Mild diverticulosis of the cecum, ascending colon, and descending colon. No pericolonic inflammatory fat stranding is identified. Diffuse bowel wall mucosal enhancement is noted. No pneumatosis intestinalis is seen. No obvious small or large wall thickening. PELVIS/BLADDER: The urinary bladder is mildly distended with resultant mild circumferential wall thickening. The prostate gland is normal in size and morphology.. BONES AND SOFT TISSUES: Diffuse osteopenia. Grade 1 right lateral listhesis of L3 on L4. Diffuse mild degenerative changes. Lumbar spine with moderate degenerative changes present at L3-L4. No suspicious lytic or sclerotic bony lesions. Diffuse anasarca. IMPRESSION Overall severe calcified atherosclerotic disease of the abdominal aorta, bilateral common iliac, external iliac, internal iliac arteries, and several branches as described above. No evidence of acute mesenteric ischemia. Significant findings include: 1. Moderate left pleural effusion and large right pleural effusion with associated compressive atelectasis and pulmonary edema. Additionally, peripheral consolidative opacifications are noted in left lung base and left upper lobe, and are worrisome for an infectious process. 2. Biatrial enlargement with IVC and hepatic venous contrast reflux suggestive of right heart failure. 3. 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 4. Mesenteric collaterals between celiac and SMA and between SMA and TARI . 5. No bowel wall thickening to suggest acute ischemia. 6. B/L renal artery stenosis.Please see description above 7. Up to 3 left nonobstructing nephrolithiasis measuring up to 0.7 cm in the left superior pole. 8. Mild diverticulosis of the cecum, ascending colon, descending colon, and sigmoid colon without diverticulitis. 9. Persistent perihepatic abdominal ascites. 10. Hepatomegaly. An addendum would be added after loading more thin section images as required. I, Tonio Mcintosh MD., have reviewed this study and agree with the above report. Performing Organization Address [facility] Phone Number PACS/VR/DOSE POCT GLUCOSE (AUTOMATED) (02/14/2019 10:39 AM CDT) POCT GLU 133 (H) 70 - 110 mg/dL [facility] Specimen Blood Performing Organization Address [facility] Phone Number [facility] CLIA: [id number], [address] [place] [address] POCT GLUCOSE (AUTOMATED) (02/14/2019 1:06 AM CDT) POCT GLU 147 (H) 70 - 110 mg/dL [facility] Specimen Blood Performing Organization Address [facility] Phone Number [facility] CLIA: [id number], [address] [place] [address] POCT GLUCOSE (AUTOMATED) (02/14/2019 12:29 AM CDT) POCT GLU 57 (L) 70 - 110 mg/dL [facility] Specimen Blood Performing Organization Address [facility] Phone Number [facility] CLIA: [id number], [address] [place] [address] POCT GLUCOSE (AUTOMATED) (02/13/2019 11:23 PM CDT) POCT GLU 30 (LL) 70 - 110 mg/dL [facility] Specimen Blood Performing Organization Address City/State/Zipcode Phone Number [facility] CLIA: [id number], [address] [place] [address] CBC WITH DIFFERENTIAL (02/13/2019 7:31 PM CDT) Pathologist [facility] WBC 3.54 (L) 4.20 - 10.70 [facility] 10*3/L [facility] RBC 3.62 (L) 4.26 - 5.52 [facility] 10*6/L [facility] HGB 12.0 (L) 12.2 - 16.4 [facility] g/dL [facility] HCT 37.0 (L) 38.4 - 49.3 % [facility] MCV 102.2 (H) 81.7 - 95.6 fL [facility] MCH 33.1 (H) 26.1 - 32.7 pg [facility] MCHC 32.4 31.2 - 35.0 [facility] g/dL [facility] RDW-SD 58.5 (H) 38.5 - 51.6 fL [facility] RDW-CV 15.6 (H) 12.1 - 15.4 % [facility] PLT 90 (L) 150 - 328 [facility] 10*3/L [facility] MPV 10.5 9.8 - 13.0 fL [facility] NRBC/100 WBC 0.0 0.0 - 10.0 /100 [facility] WBCs [facility] NRBC x10^3 <0.01 10*3/L [facility] GRAN MAT (NEUT) % 69.4 % [facility] IMM GRAN % 0.30 % [facility] LYMPH % 14.4 % [facility] MONO % 11.6 % [facility] EOS % 3.7 % [facility] BASO % 0.6 % [facility] GRAN MAT x10^3(ANC) 2.46 1.99 - 6.95 [facility] 10*3/uL HOSPITAL [facility] IMM GRAN x10^3 <0.03 0.00 - 0.06 [facility] 10*3/uL [facility] LYMPH x10^3 0.51 (L) 1.09 - 3.23 [facility] 10*3/uL [facility] MONO x10^3 0.41 0.36 - 1.02 [facility] 10*3/uL HOSPITAL [facility] EOS x10^3 0.13 0.06 - 0.53 [facility] 10*3/uL H[facility]PITAL [facility] BASO x10^3 <0.03 0.01 - 0.09 [facility] 10*3/uL [facility] Specimen Blood - VENOUS Performing Organization Address [facility] Phone Number [facility] CLIA: [id number], [address] [place] [address] Lipase Serum (02/13/2019 7:31 PM CDT) LIPASE 54 0 - 220 U/L [facility] Specimen Blood - VENOUS Performing Organization Address [facility] Phone Number [facility] CLIA: [id number], [address] [place] [address] Hepatic Function Panel (ALB, T.PRO, BILI T, BU/BC, ALT, AST, ALK PHOS) (2018 7:31 PM CDT) TOTAL BILI 0.9 0.1 - 1.1 mg/dL [facility] BILI UNCON 0.2 0.1 - 1.1 mg/dL [facility] BILI CONJ 0.0 0.0 - 0.3 mg/dL [facility] T PROTEIN 7.9 6.3 - 8.2 g/dL [facility] ALBUMIN 4.4 3.5 - 5.0 g/dL [facility] ALK PHOS 112 34 - 122 U/L [facility] ALT(SGPT) 17 9 - 51 U/L [facility] AST(SGOT) 48 (H) 13 - 40 U/L [facility] Specimen Blood - VENOUS Performing Organization Address City/State/Zipcode Phone Number [facility] CLIA: [id number], [address] [place] [address] Basic Metabolic Panel (NA, K, CL, CO2, GLUCOSE, BUN, CREATININE, CA) (2018 7:31 PM CDT) NA 139 135 - 145 [facility] mmol/L [facility] K 6.1 (HH) 3.5 - 5.0 [facility] mmol/L [facility] CL 101 98 - 108 mmol/L [facility] CO2 TOTAL 25 23 - 31 mmol/L [facility] AGAP 13 2 - 16 [facility] BUN 42 (H) 7 - 23 mg/dL [facility] GLUCOSE 110 70 - 110 mg/dL [facility] CREATININE 4.55 (H) 0.60 - 1.25 [facility] mg/dL [facility] CALCIUM 8.8 8.6 - 10.6 [facility] mg/dL [facility] eGFR Calculation 12.6 mL/min/1.73m2 [facility] ([facility]ATORY [place]) eGFR Calculation 15.3 mL/min/1.73m2 [facility] () [facility] Specimen Blood - VENOUS Narrative Performed At Association of Glomerular Filtration Rate (GFR) [facility] and Staging of Kidney Disease* [...] abnormalities in imaging tests). Performing Organization Address City/State/Zipcond Phone Number [facility] CLIA: [id number], [address] [place] [address] ABDOMEN PELVIS WO CONTRAST (02/13/2019 6:53 PM CDT) Specimen Narrative Performed At CT Abdomen and Pelvis without contrast. PACS/VR/DOSE CLINICAL HISTORY: Acute generalized abdominal pain, gastroenteritis or colitis is suspected. TECHNIQUE: Multidetector helical CT acquisition was obtained from the lung bases to the greater trochanters without oral and IV contrast.The images were reviewed in lung, bone, and soft tissue windows. FINDINGS:Absence of oral as well as intravenous contrast media significantly limits evaluation of intra-abdominal organs. Comparison has been made with ultrasound study of 02/07/[address] studies of 01/26/2019. Lower lungs: Moderate sized right-sided and small left pleural effusion with congestion/atelectatic changes in the adjacent left lower lung, right lower lung as well as right middle lobe. Superimposed infection cannot be excluded by this examination. Liver, Gallbladder and Spleen: No acute findings. Peritoneum:No free air. Small amount of free fluid is seen surrounding the liver, spleen and in the pelvis. No lymphadenopathy. Pancreas and Adrenals:Unremarkable pancreas and adrenal glands. Kidneys and Ureters:No visible calculi in the renal collecting systems. No hydroureter or hydronephrosis. Vessels: Atherosclerosis of aorta and major intra-abdominal arteries including renal arteries and superior mesenteric/splenic artery and some of the branches. Retroperitoneum: No abnormal fluid or lymphadenopathy. Bowel: Diverticulosis of large bowel noted without any acute changes of diverticulitis. No definite CT changes of colitis or enteritis are visualized. Bladderand Reproductive Organs: Enlarged prostate. Bones: Lumbar levoscoliosis, moderate degenerative disc disease at L3-L4 and lower 2 lumbar levels facet arthritis. Soft tissues: Diffusely congested soft tissues without any focal abnormalities. CONCLUSION: 1. Bilateral pleural effusion, larger on the right side with congestion/atelectatic changes in the lungs. Superimposed infiltrate cannot be ruled out. No significant change compared with 01/26/2019 study. 2. Small amount of free fluid surrounding the liver, spleen and in the pelvis, unchanged compared with 01/26/2019 study. Procedure Note [facility], Radiant Results Inft User - 02/13/2019 7:[address] Abdomen and Pelvis without contrast. CLINICAL HISTORY: Acute generalized abdominal pain, gastroenteritis or colitis is suspected. TECHNIQUE: Multidetector helical CT acquisition was obtained from the lung bases to the greater trochanters without oral and IV contrast. The images were reviewed in lung, bone, and soft tissue windows. FINDINGS: Absence of oral as well as intravenous contrast media significantly limits evaluation of intra-abdominal organs. Comparison has been made with ultrasound study of 02/07/[address] studies of 01/26/2019. Lower lungs: Moderate sized right-sided and small left pleural effusion with congestion/atelectatic changes in the adjacent left lower lung, right lower lung as well as right middle lobe. Superimposed infection cannot be excluded by this examination. Liver, Gallbladder and Spleen: No acute findings. Peritoneum: No free air. Small amount of free fluid is seen surrounding the liver, spleen and in the pelvis. No lymphadenopathy. Pancreas and Adrenals: Unremarkable pancreas and adrenal glands. Kidneys and Ureters: No visible calculi in the renal collecting systems. No hydroureter or hydronephrosis. Vessels: Atherosclerosis of aorta and major intra-abdominal arteries including renal arteries and superior mesenteric/splenic artery and some of the branches. Retroperitoneum: No abnormal fluid or lymphadenopathy. Bowel: Diverticulosis of large bowel noted without any acute changes of diverticulitis. No definite CT changes of colitis or enteritis are visualized. Bladder and Reproductive Organs: Enlarged prostate. Bones: Lumbar levoscoliosis, moderate degenerative disc disease at L3-L4 and lower 2 lumbar levels facet arthritis. Soft tissues: Diffusely congested soft tissues without any focal abnormalities. CONCLUSION: 1. Bilateral pleural effusion, larger on the right side with congestion/atelectatic changes in the lungs. Superimposed infiltrate cannot be ruled out. No significant change compared with 01/26/2019 study. 2. Small amount of free fluid surrounding the liver, spleen and in the pelvis, unchanged compared with 01/26/2019 study. Performing Organization Address City/State/Zipcode Phone Number PACS/VR/DOSE documented in this encounter Visit Diagnoses Diagnosis Abdominal pain in male - Primary documented in this encounter Administered Medications Medication Order MAR Action Action Date Dose Rate Site acetaminophen (TYLENOL) tablet Given 02/14/2019 12:38 PM CDT 650 mg 650 mg 650 mg, Oral, Q6HPRN, Starting 02/13/19 at 2203, Until Discontinued, Routine, Pain (scale 1-3) amLODIPine (NORVASC) tablet 10 mg Given 02/14/2019 6:37 PM CDT 10 mg 10 mg, Oral, DAILY, First dose on Thu02/14/19 at 1815, Until Discontinued, Routine atorvastatin (LIPITOR) tablet 40 mg 40 mg, Oral, QHS, First dose on Thu02/14/19 at 2100, Until Discontinued, Routine carvedilol (COREG) tablet 12.5 mg Given 02/14/2019 6:37 PM CDT 12.5 mg 12.5 mg, Oral, BID MEALS, First dose on Thu02/14/19 at 1815, Until Discontinued, Routine clonazePAM (KLONOPIN) tablet 0.5 mg Given 02/14/2019 3:58 PM CDT 0.5 mg 0.5 mg, Oral, TIDPRN, Starting Thu02/14/19 at 0702, Until Discontinued, Routine, panic or anxiety attack clopidogrel (PLAVIX) tablet 75 mg 75 mg, Oral, DAILY, First dose on Thu02/14/19 at 1815, Until Discontinued, Routine dextrose 50 % in water (D50W) injection 25 mL Given 02/14/2019 12:38 AM CDT 50 mL 25 mL, Slow IV Push, PRN, Starting Thu02/13/19 at 2325, Until Discontinued, MALCOLM, Blood Glucose < or=70 mg/dL and patient is unable to swallow or has mental status changes. Given 02/13/2019 11:32 PM CDT 50 mL diphenhydrAMINE (BENADRYL) injection 12.5 mg 12.5 mg, Slow IV Push, DIALYSIS ONCE PRN - [facility], 1 dose, Starting Thu at 0717, Until Thu02/14/19 at 2359, Routine, Itching furosemide (LASIX) tablet 80 mg 80 mg, Oral, DAILY, First dose on Thu02/15/19 at 0900, Until Discontinued, Routine glucagon (GLUCAGEN DIAGNOSTIC KIT) injection 1 mg 1 mg, Intramuscular, PRN, Starting Thu02/13/19 at 2325, Until Discontinued, MALCOLM , Blood Glucose < or=70 mg/dL and patient is unable to swallow or has mental changes. hydrALAZINE (APRESOLINE) tablet 50 mg 50 mg, Oral, BID, First dose on Thu02/14/19 at 2000, Until Discontinued, Routine morpHINE injection 2 mg Given 02/14/2019 10:47 AM CDT 2 mg 2 mg, Slow IV Push, Q6HPRN, Starting Thu02/14/19 at 0958, Until Discontinued, Routine, Pain (scale 7-10), Breakthrough Pain (scale 4-10) ondansetron (ZOFRAN (PF)) injection 4 mg 4 mg, Slow IV Push, DIALYSIS ONCE PRN - [facility], 1 dose, Starting Thu02/14/19 at 0717, Until Thu02/14/19 at 2359, Routine, Nausea and Vomiting (N/V) pantoprazole (PROTONIX) EC tablet 40 mg Given 02/14/2019 9:28 AM CDT 40 mg 40 mg, Oral, DAILY, First dose on Thu02/14/19 at 0900, Until Discontinued, Routine simethicone (GAS RELIEF) chewable tablet 80 Given 02/14/2019 10:00 AM CDT 80 mg mg 80 mg, Oral, PC+HS, First dose on Thu02/14/19 at 0945, Until Discontinued, Routine traMADol (ULTRAM) tablet 50 mg 50 mg, Oral, Q8HPRN, Starting Thu02/13/19 at 2203, Until Thu02/15/19 at 2202, Routine, Pain (scale 4-6) Medication Order MAR Action Action Date Dose Rate Site dextrose 10% (D10W) bolus Given 02/13/2019 10:00 PM CDT 250 mL infusion 250 mL 250 mL, IV Infusion, ONCE, [facility] 02/13/19 at 2200, For 1 dose, Dextrose 10% 250 mL bag contains: 10 li=726 mL 20 pg=352 mL 25 dw=049 mL (whole bag) The maximum rate at which dextrose can be infused without producing glycosuria is 0.5 g/kg/hour. BUD: If wrapper is open bag is good for 30 days at room temperature. , furosemide (LASIX) 80 mg in NaCl 0.9% (NS) 50 Given 02/13/2019 10:38 PM CDT 80 mg mL piggyback 80 mg, IV Piggyback, ONCE, 1 dose, [facility] 02/13/19 at 2215, 50 mL heparin 1,000 unit/mL injection 1,500 Given 02/14/2019 12:45 PM CDT 1,500 Units Units 1,500 Units, Slow IV Push, DIALYSIS ONCE - PT ROOM, 1 dose, [facility] 02/14/19 at 0730, Routine heparin 1,000 unit/mL injection 1,500 Given 02/14/2019 4:10 PM CDT 1,500 Units Units 1,500 Units, Slow IV Push, DIALYSIS ONCE - PT ROOM, 1 dose, [facility] 02/14/19 at 0730, Routine insulin regular human (HUMULIN R) injection Given 02/13/2019 9:16 PM CDT 5 Units 5 Units 5 Units, Slow IV Push, ONCE, 1 dose, [facility] 02/13/19 at 2200, Routine iohexol (OMNIPAQUE 350 BULK-100 mL) Given 02/14/2019 11:30 AM CDT 100 mL injection 100 mL 100 mL, Intravenous, ONCE, 1 dose, [facility] 02/14/19 at 1145, Routine LORazepam (ATIVAN) injection 1 mg Given 02/14/2019 2:42 PM CDT 1 mg 1 mg, Slow IV Push, ONCE, 1 dose, [facility] 02/14/19 at 1445, Routine maalox:diphenhydrAMINE:lidocaine2 %viscous Given 02/13/2019 7:45 PM CDT 15 mL 1:1:1: suspension (COMPOUNDED) 15 mL, Oral, ONCE, 1 dose, [facility] 02/13/19 at 1930, Routine morpHINE injection 4 mg Given 02/13/2019 8:05 PM CDT 4 mg 4 mg, Slow IV Push, ONCE, 1 dose, [facility] 02/13/19 at 1930, STAT ondansetron (ZOFRAN (PF)) injection 4 mg Given 02/13/2019 8:05 PM CDT 4 mg 4 mg, Slow IV Push, ONCE, 1 dose, [facility] 02/13/19 at 1930, MALCOLM documented in this encounter Insurance Payer Benefit Plan / Subscriber ID Effective Dates Phone Address Type Group MEDICARE MEDICARE PART xxxxxxxxxxx 2004-Preskaran [phone] [address] [id number] [place] [id number] 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
[2019-02-16 17:53] LABS: Absolute Lymphocytes (CBC) 0.5 K/uL (0.7-4.9); Basophils % 0.9 % (0-1.3); Hematocrit 36.3 % (39.6-49.0); Lymphocytes % 16.6 % (15.3-44.8); MPV 8.5 fL (7.6-11.3); RBC Red Blood Cell Count 3.59 M/uL (4.33-5.43)
[2019-02-16] MEDS ORDERED: MORPHINE 2 MG/ML SYR ONE (18:08)
[2019-02-16 18:10] LABS: Albumin 3.5 g/dL (3.4-5.0); Bilirubin Direct 0.2 mg/dL (0-0.2); Bilirubin Total 0.5 mg/dL (0.2-1.0); Protein, Total 7.4 g/dL (6.4-8.2)
[2019-02-16 18:11] LABS: Potassium 5.7 mmol/L (3.5-5.1)
[2019-02-16 18:16] LABS: Blood Morphology Comment NOTED (NOT SEEN); Platelet Estimate ADEQ; Urine White Blood Cell Casts OK
[2019-02-16] MEDS ORDERED: INSULIN -REGULAR HUMAN 50 UNIT/0.5 ML ML ONE (18:21)
[2019-02-16] MEDS ORDERED: ALBUTEROL 2.5 MG/3 ML NEB SOL ONE (18:24)
[2019-02-16] MEDS ORDERED: D50W 25 GM/50 ML SYRINGE IV ONE (18:24)
--- NOTE | 2019-02-16 19:08 | EDPHYS ---
Physician Documentation [facility] Name: Blaise Quarles Age: 78 yrs Sex: Male : 1940 Arrival Date: 02/16/2019 Time: 16:46 Bed 2 Private MD: ED Physician Ron Viveros HPI: 02/16 18:22 This 78 yrs old Male presents to ER via EMS with complaints of Abdominal Pain. jr8 18:22 The patient presents with abdominal pain that is diffuse. Onset: The symptoms/episode jr8 began/occurred acutely, today. The symptoms do not radiate. Associated signs and symptoms: none. The symptoms are described as stabbing. Modifying factors: The symptoms are alleviated by nothing, the symptoms are aggravated by nothing. Severity of pain: At its worst the pain was moderate in the emergency department the pain is unchanged. The patient has experienced similar episodes in the past, multiple times, chronically. The patient has been recently been admitted at [facility], was discharged last week. Historical: - Allergies: 16:52 Aspirin; ss - Home Meds: 16:52 Plavix 75 mg Oral tab 1 tab once daily [Active]; furosemide 80 mg Oral tab [Active]; ss atorvastatin 40 mg oral tab [Active]; clonazepam 1 mg Oral tab [Active]; carvedilol 12.5 mg oral tab [Active]; hydralazine 50 mg Oral tab [Active]; - PMHx: 16:52 Anemia; CAD; cardiomegaly; CHF; chronic renal disease; Cirrhosis; Diabetes - NIDDM; ss Dialysis; High Cholesterol; Hypertension; Myocardial infarction; pleural effusion; pulmonary nodule; Visually impared; - Immunization history:: Adult Immunizations up to date. - Social history:: Smoking status: Patient/guardian denies using tobacco. - Ebola Screening: : Patient denies exposure to infectious person Patient denies travel to an Ebola-affected area in the 21 days before illness onset. ROS: 18:58 Eyes: Negative for injury, pain, redness, and discharge, ENT: Negative for injury, jr8 pain, and discharge, Neck: Negative for injury, pain, and swelling, Cardiovascular: Negative for chest pain, palpitations, and edema, Respiratory: Negative for shortness of breath, cough, wheezing, and pleuritic chest pain, Back: Negative for injury and pain, MS/Extremity: Negative for injury and deformity, Skin: Negative for injury, rash, and discoloration, Neuro: Negative for headache, weakness, numbness, tingling, and seizure. 18:58 Abdomen/GI: Positive for abdominal pain, Negative for nausea, vomiting, and diarrhea, diarrhea, constipation, abdominal cramps, abdominal distension, anorexia, dysphagia, hematemesis, black/tarry stool, rectal pain, rectal bleeding, bowel incontinence, flatulence. Exam: 18:58 Eyes: Pupils equal round and reactive to light, extra-ocular motions intact. Lids and jr8 lashes normal. Conjunctiva and sclera are non-icteric and not injected. Cornea within normal limits. Periorbital areas with no swelling, redness, or edema. ENT: Nares patent. No nasal discharge, no septal abnormalities noted. Tympanic membranes are normal and external auditory canals are clear. Oropharynx with no redness, swelling, or masses, exudates, or evidence of obstruction, uvula midline. Mucous membranes moist. Neck: Trachea midline, no thyromegaly or masses palpated, and no cervical lymphadenopathy. Supple, full range of motion without nuchal rigidity, or vertebral point tenderness. No Meningismus. Cardiovascular: Regular rate and rhythm with a normal S1 and S2. No gallops, murmurs, or rubs. Normal PMI, no JVD. No pulse deficits. Respiratory: Lungs have equal breath sounds bilaterally, clear to auscultation and percussion. No rales, rhonchi or wheezes noted. No increased work of breathing, no retractions or nasal flaring. Back: No spinal tenderness. No costovertebral tenderness. Full range of motion. Skin: Warm, dry with normal turgor. Normal color with no rashes, no lesions, and no evidence of cellulitis. MS/ Extremity: Pulses equal, no cyanosis. Neurovascular intact. Full, normal range of motion. Neuro: Awake and alert, GCS 15, oriented to person, place, time, and situation. Cranial nerves II-XII grossly intact. Motor strength 5/5 in all extremities. Sensory grossly intact. Cerebellar exam normal. Normal gait. 18:58 Abdomen/GI: Inspection: abdomen appears normal, Bowel sounds: active, all quadrants, Palpation: soft, in all quadrants, mild abdominal tenderness, in the abdomen diffusely, mass, is not appreciated, rebound tenderness, is not appreciated, voluntary guarding, is not appreciated, involuntary guarding, is not appreciated, no appreciated organomegaly, Indicators: McBurney's point is not tender, Mccarthy's sign is negative, Rovsing's sign is negative. Vital Signs: 16:42 BP 162 / 77; Pulse 49; Resp 18; Temp 97.7(TE); Pulse Ox 100% on 2 lpm NC; Pain 10/10; jp3 16:52 Weight 46.72 kg; Height 5 ft. 5 in. (165.10 cm); ss 18:17 BP 148 / 63; Pulse 52; Resp 17; Pulse Ox 100% on 2 lpm NC; Pain 10/10; sg 19:20 BP 170 / 68; Pulse 58; Resp 17; Pulse Ox 96% on R/A; Pain 4/10; tl1 16:52 Body Mass Index 17.14 (46.72 kg, 165.10 cm) ss MDM: 16:54 Patient medically screened. jr8 18:58 Data reviewed: vital signs, nurses notes, old medical records, lab test result(s), EKG. jr8 Data interpreted: Pulse oximetry: on room air is 100 %. Interpretation: normal. Counseling: I had a detailed discussion with the patient and/or guardian regarding: the historical points, exam findings, and any diagnostic results supporting the discharge/admit diagnosis, lab results, radiology results, the need for outpatient follow up, a family practitioner, a payloader operator, to return to the emergency department if symptoms worsen or persist or if there are any questions or concerns that arise at home. Response to treatment: the patient's symptoms have mildly improved after treatment. ED course: No increased in WBC count. Rest of lab work same or similar to past. Patient has had several CT scans of abdomen and pelvis. One about a week ago. All for similar pain. All showing the same thing and without acute findings. Pain decreased. Treated Hyperkalemia. Patient to have dialysis soon. Will d/c home to f/u . 02/16 16:54 Order name: Basic Metabolic Panel; Complete Time: 18:15 [facility] 02/16 16:54 Order name: CBC with Diff; Complete Time: 18:22 02/16 16:54 Order name: Creatinine for Radiology; Complete Time: 18:15 02/16 16:54 Order name: Hepatic Function; Complete Time: 18:15 02/16 16:54 Order name: Lipase; Complete Time: 18:15 02/16 17:56 Order name: CBC Smear Scan; Complete Time: 18:22 EDMS 02/16 16:54 Order name: IV Saline Lock; Complete Time: 18:11 02/16 16:54 Order name: Labs collected and sent; Complete Time: 18:11 02/16 16:54 Order name: EKG; Complete Time: 16:55 02/16 16:54 Order name: EKG - Nurse/Tech; Complete Time: 17:31 Administered Medications: 18:15 Not Given (Duplicate Order): morphine 2 mg IM once; RASS on ADMIN: Combtv4, Very sg Agttd3, Agttd2, Rstlss1, AlertClm0, Drwsy-1, Lt Sdtn-2, Mod Sdtn-3, Dp Sdtn-4, UnArsble-5 18:15 Drug: morphine 2 mg {Note: RASS of +1.} Route: IVP; Site: right antecubital; sg 19:19 Follow up: Response: No adverse reaction; Marked relief of symptoms; Pain is decreased tl1 18:29 Drug: Insulin Regular Human 10 units {Co-Signature: ss (Monserrat Young RN).} Route: IVP; sg Site: right antecubital; 19:19 Follow up: Response: No adverse reaction; Marked relief of symptoms tl1 18:30 Drug: D50W 50 ml Route: IVP; Site: right antecubital; sg 19:09 Follow up: Response: No adverse reaction; Marked relief of symptoms tl1 18:37 Drug: Albuterol 2.5 mg Route: Inhalation; sg 18:37 Drug: Albuterol 2.5 mg Route: Inhalation; sg 18:38 Drug: Albuterol 2.5 mg Route: Inhalation; sg Disposition: 02/17 09:12 Co-signature as Attending Physician, Ron Viveros MD I agree with the assessment and yoni plan of care. Disposition: 02/16/19 19:07 Discharged to Home. Impression: Abdominal and pelvic pain. - Condition is Stable. - Discharge Instructions: Abdominal Pain, Adult. - Medication Reconciliation Form, Thank You Letter, Antibiotic Education, Prescription Opioid Use form. - Follow up: Private Physician; When: 2 - 3 days; Reason: Recheck today's complaints, Continuance of care, Re-evaluation by your physician. - Problem is new. - Symptoms have improved. Signatures: Dispatcher [employer] EDMS Tashi Luna RN RN sg Anderson, Corey, MD MD cha Smirch, Shelby, RN RN ss Hayden Sawyer PA PA jr8 Shavon Clemetne RN RN tl1 Monserrat Young RN ss Corrections: (The following items were deleted from the chart) 02/16 19:35 19:07 02/16/2019 19:07 Discharged to Home. Impression: Abdominal and pelvic pain. tl1 Condition is Stable. Forms are Medication Reconciliation Form, Thank You Letter, Antibiotic Education, Prescription Opioid Use. Follow up: Private Physician; When: 2 - 3 days; Reason: Recheck today's complaints, Continuance of care, Re-evaluation by your physician. Problem is new. Symptoms have improved. jr8
--- NOTE | 2019-02-16 19:08 | ER ---
Nurse's Notes [facility] Name: Blaise Quarles Age: 78 yrs Sex: Male : 1940 Arrival Date: 02/16/2019 Time: 16:46 Bed 2 Private MD: Diagnosis: Abdominal and pelvic pain Presentation: 02/16 16:47 Presenting complaint: Patient states: generalized abd pain that began this morning. ss Denies N/V/D/Fever. Transition of care: patient was not received from another setting of care. Onset of symptoms was February 16, 2019. Risk Assessment: Do you want to hurt yourself or someone else? Patient reports no desire to harm self or others. Initial Sepsis Screen: Does the patient meet any 2 criteria? RR > 20 per min. Does the patient have a suspected source of infection? No. Patient's initial sepsis screen is negative. Care prior to arrival: None. 16:47 Method Of Arrival: EMS: [facility] 16:47 Acuity: SARATH 3 ss Triage Assessment: 19:22 General: Appears cachectic, Behavior is cooperative. Pain: Complains of pain in abdomen tl1 diffusely. GI: Reports lower abdominal pain, upper abdominal pain. Historical: - Allergies: 16:52 Aspirin; ss - Home Meds: 16:52 Plavix 75 mg Oral tab 1 tab once daily [Active]; furosemide 80 mg Oral tab [Active]; ss atorvastatin 40 mg oral tab [Active]; clonazepam 1 mg Oral tab [Active]; carvedilol 12.5 mg oral tab [Active]; hydralazine 50 mg Oral tab [Active]; - PMHx: 16:52 Anemia; CAD; cardiomegaly; CHF; chronic renal disease; Cirrhosis; Diabetes - NIDDM; ss Dialysis; High Cholesterol; Hypertension; Myocardial infarction; pleural effusion; pulmonary nodule; Visually impared; - Immunization history:: Adult Immunizations up to date. - Social history:: Smoking status: Patient/guardian denies using tobacco. - Ebola Screening: : Patient denies exposure to infectious person Patient denies travel to an Ebola-affected area in the 21 days before illness onset. Screenin:21 Abuse screen: Denies threats or abuse. Denies injuries from another. Nutritional tl1 screening: No deficits noted. Tuberculosis screening: No symptoms or risk factors identified. Fall Risk Ambulatory Aid-. Assessment: 17:00 Reassessment: attempt at IV and blood specimen collection, not successful per photovoltaic installation technician max Caballero, pt requesting ER staff not poke him any more at this time. 18:44 Reassessment: Patient appears in no apparent distress at this time. Patient and/or sg family updated on plan of care and expected duration. Pain level reassessed. Patient is alert, oriented x 3, equal unlabored respirations, skin warm/dry/pink. pt family remains at bedside at this time Patient states symptoms have not improved. 19:35 GI: Abdomen is tender to palpation X 4 quads. tl1 Vital Signs: 16:42 BP 162 / 77; Pulse 49; Resp 18; Temp 97.7(TE); Pulse Ox 100% on 2 lpm NC; Pain 10/10; jp3 16:52 Weight 46.72 kg; Height 5 ft. 5 in. (165.10 cm); ss 18:17 BP 148 / 63; Pulse 52; Resp 17; Pulse Ox 100% on 2 lpm NC; Pain 10/10; sg 19:20 BP 170 / 68; Pulse 58; Resp 17; Pulse Ox 96% on R/A; Pain 4/10; tl1 16:52 Body Mass Index 17.14 (46.72 kg, 165.10 cm) ss ED Course: 16:46 Patient arrived in ED. ss 16:48 Triage completed. ss 16:49 Patient has correct armband on for positive identification. Placed in gown. Bed in low jp3 position. Call light in reach. Side rails up X 1. Side rails up X2. Warm blanket given. Verbal reassurance given. Pulse ox on. NIBP on. 16:52 Arm band placed on right wrist. ss 16:53 Hayden Sawyer PA is PHCP. jr8 16:53 Ron Viveros MD is Attending Physician. jr8 17:07 EKG done, by film laboratory technician. reviewed by Hayden POWELL. sm3 17:10 Missed attempt(s): 20 gauge in right forearm. Bleeding controlled, band aid applied, jp3 catheter tip intact. 17:10 Oxygen administration via nasal cannula \T\ 2L/min. jp3 17:28 Tashi Luna, HUONG is Primary Nurse. sg 17:43 Inserted saline lock: 22 gauge in right antecubital area, using aseptic technique. Blood collected. 18:13 Notified Nurse Practitioner and/or Physician Acid Operator of a critical lab result(s), sg Potassium 5.7. 19:34 No provider procedures requiring assistance completed. IV discontinued, intact, tl1 bleeding controlled, No redness/swelling at site. Administered Medications: 18:15 Not Given (Duplicate Order): morphine 2 mg IM once; RASS on ADMIN: Combtv4, Very sg Agttd3, Agttd2, Rstlss1, AlertClm0, Drwsy-1, Lt Sdtn-2, Mod Sdtn-3, Dp Sdtn-4, UnArsble-5 18:15 Drug: morphine 2 mg {Note: RASS of +1.} Route: IVP; Site: right antecubital; sg 19:19 Follow up: Response: No adverse reaction; Marked relief of symptoms; Pain is decreased tl1 18:29 Drug: Insulin Regular Human 10 units {Co-Signature: gen (Monserrat Young RN).} Route: IVP; sg Site: right antecubital; 19:19 Follow up: Response: No adverse reaction; Marked relief of symptoms tl1 18:30 Drug: D50W 50 ml Route: IVP; Site: right antecubital; sg 19:09 Follow up: Response: No adverse reaction; Marked relief of symptoms tl1 18:37 Drug: Albuterol 2.5 mg Route: Inhalation; sg 18:37 Drug: Albuterol 2.5 mg Route: Inhalation; sg 18:38 Drug: Albuterol 2.5 mg Route: Inhalation; sg Outcome: 19:07 Discharge ordered by MD. melton 19:21 Discharged to home via wheelchair. tl1 19:21 Condition: stable 19:21 Discharge instructions given to patient, family, Instructed on discharge instructions, follow up and referral plans. medication usage, Demonstrated understanding of instructions, follow-up care, medications, dialysis in the AM per scheduled dialysis 19:35 Patient left the ED. tl1 Signatures: Tashi Luna RN RN sg Smirch, Shelby, RN RN ss Roszak, Josh, PA PA jrShavon Sagastume RN RN tl1 Xochitl Clayton 3 Gerardo Bonds 3 Monserrat Young RN ss
[2019-02-16 20:04] VITALS: TEMP 97.7
[2019-02-16 20:07] VITALS: BP 170/68; O2SAT 96
--- NOTE | 2019-02-17 05:30 | EKG ---
Test Date: 2019-02-16 Test Time: 16:59:43 Chopped Strand Operator: CHEY MEASUREMENT RESULTS: Intervals: Rate: 49 DE: 188 QRSD: 94 QT: 476 QTc: 429 Crawford: P: 76 DE: 188 QRS: -53 T: 115 INTERPRETIVE STATEMENTS: Marked sinus bradycardia Possible Left atrial enlargement Left axis deviation Septal infarct, age undetermined Inferior infarct, age undetermined T wave abnormality, consider lateral ischemia Abnormal ECG Compared to ECG 02/02/2019 19:40:42 No significant changes Electronically Signed On 02-17-19 05:29:58 CDT by Raheel Zeng
== END 2019-02-16 19:35 | disposition home or self-care (01) ==
LOC: ER 16:38
DX: R10.9 Unspecified abdominal pain (principal); R10.2 Pelvic and perineal pain; D64.9 Anemia, unspecified; E11.22 Type 2 diabetes mellitus with diabetic chronic kidney disease; I13.2 Hypertensive heart and chronic kidney disease with heart failure and with stage 5 chronic kidney disease, or end stage renal disease; N18.6 End stage renal disease; I50.9 Heart failure, unspecified; Z99.2 Dependence on renal dialysis; E78.00 Pure hypercholesterolemia, unspecified; I25.2 Old myocardial infarction; Z88.6 Allergy status to analgesic agent
CPT/HCPCS: 93005; 85025; 80048; 36415; 80076; 83690; 96375; 96374; 99285; J2270

== ENCOUNTER 2019-02-22 17:25 | Observation (INO) | payer OTHER ==
--- OUTSIDE RECORDS SUMMARY | 2019-02-22 17:28 | XMS REPORT ---
:1940 [facility] Address [address] [place] [address] Dr. Manley [address] [place] [id number] Care Team Providers Name Role Phone LAZRODNEY [...] Comments CULTURE (BEAKER) (test PSEUDOMONAS 70-79,000 col/mL kaqc=9795) AERUGINOSA Pseudomonas aeruginosa Amikacin (test code=1) Susceptible [...] code=25) Resistant <0 or >4 URINALYSIS W/ [id number] 12:06:00 Test Item Value Reference Range Comments COLOR (BEAKER) (test wfub=691) Yellow CLARITY (BEAKER) (test icmj=628) Hazy SPECIFIC GRAVITY UA (BEAKER) (test qonz=539) 1.012 1.001-1.035 PH UA (BEAKER) (test thfb=663) 6.0 5.0-8.0 PROTEIN UA (BEAKER) (test koas=191) 600 mg/dL Negative GLUCOSE UA (BEAKER) (test vgqk=902) 100 mg/dL Negative KETONES UA (BEAKER) (test ipri=864) Negative Negative BILIRUBIN UA (BEAKER) (test qtxx=179) Negative Negative BLOOD UA (BEAKER) (test hgku=051) Moderate Negative NITRITE UA (BEAKER) (test bxks=750) Negative Negative LEUKOCYTE ESTERASE UA (BEAKER) (test defb=153) Small Negative UROBILINOGEN UA (BEAKER) (test tsuo=943) 0.2 mg/dL 0.2-1.0 RBC UA (BEAKER) (test osbi=027) 27 /HPF WBC UA (BEAKER) (test zsog=759) 12 /HPF BACTERIA (BEAKER) (test kjij=839) Occasional MUCUS (BEAKER) (test xoeb=0551) Rare SQUAMOUS EPITHELIAL (BEAKER) (test orsk=305) < /HPF HYALINE CASTS (BEAKER) (test wcws=772) 2 /LPF GRANULAR CASTS (BEAKER) (test sjtm=488) 5 /LPF SOURCE(BEAKER) (test cybu=3295) Urine, Yusuf CT, [id number] 15:15:00Reason for exam:->ABDOMINAL PAINWhat is the patient's [...] Verified Date/ Time: 03/01/2018 15:15:27 Reading Location: [address] Body Reading Room BASIC METABOLIC [id number] 11:04:00 Test Item Value Reference Range Comments SODIUM (BEAKER) (test 136 meq/L 136-145 taya=517) POTASSIUM (BEAKER) (test 4.0 meq/L 3.5-5.1 quxx=900) CHLORIDE (BEAKER) (test 108 meq/L 98-107 swhm=905) CO2 (BEAKER) (test 15 meq/L 22-29 etws=983) BLOOD UREA NITROGEN 80 mg/dL 7-21 (BEAKER) (test jxli=737) CREATININE (BEAKER) (test 4.79 mg/dL 0.57-1.25 cnhz=160) GLUCOSE RANDOM (BEAKER) 84 mg/dL 70-105 (test aefk=255) CALCIUM (BEAKER) (test 8.9 mg/dL 8.4-10.2 guna=701) EGFR (BEAKER) (test 12 mL/min/1.73 sq m ESTIMATED GFR IS NOT ywxh=8589) ACCURATE CREATININE CLEARANCE IN PREDICTING GLOMERULAR FILTRATION RATE. ESTIMATED GFR IS NOT APPLICABLE FOR DIALYSIS PATIENTS. [id number] 11:02:00 Test Item Value Reference Range Comments LIPASE (BEAKER) (test rsus=166) 61 U/L 8-78 [id number] 11:02:00 Test Item Value Reference Range Comments AMYLASE (BEAKER) (test nszq=740) 113 U/L 25-125 HEPATIC FUNCTION [id number] 11:02:00 Test Item Value Reference Range Comments TOTAL PROTEIN (BEAKER) (test vrda=715) 6.8 gm/dL 6.0-8.3 ALBUMIN (BEAKER) (test zikx=2952) 3.5 g/dL 3.5-5.0 BILIRUBIN TOTAL (BEAKER) (test zrwl=800) 0.4 mg/dL 0.2-1.2 BILIRUBIN DIRECT (BEAKER) (test iuru=172) 0.2 mg/dL 0.1-0.5 ALKALINE PHOSPHATASE (BEAKER) (test dadh=116) 78 U/L 40-150 AST (SGOT) (BEAKER) (test wsfd=635) 20 U/L 5-34 ALT (SGPT) (BEAKER) (test gtpj=867) 21 U/L 6-55 URINALYSIS W/ [id number] 11:01:00 Test Item Value Reference Range Comments COLOR (BEAKER) (test ahrf=039) Light Yellow CLARITY (BEAKER) (test oydx=518) Clear SPECIFIC GRAVITY UA (BEAKER) (test ssbv=034) 1.006 1.001-1.035 PH UA (BEAKER) (test ckgs=188) 6.0 5.0-8.0 PROTEIN UA (BEAKER) (test psfs=002) 300 mg/dL Negative GLUCOSE UA (BEAKER) (test wfzp=113) 30 mg/dL Negative KETONES UA (BEAKER) (test gbwg=706) Negative Negative BILIRUBIN UA (BEAKER) (test fatr=498) Negative Negative BLOOD UA (BEAKER) (test pidf=754) Trace Negative NITRITE UA (BEAKER) (test rexw=317) Negative Negative LEUKOCYTE ESTERASE UA (BEAKER) (test ggte=031) Negative Negative UROBILINOGEN UA (BEAKER) (test hyme=334) 0.2 mg/dL 0.2-1.0 RBC UA (BEAKER) (test vkga=695) < /HPF WBC UA (BEAKER) (test hqry=684) < /HPF BACTERIA (BEAKER) (test lnpm=787) Rare MUCUS (BEAKER) (test utuj=1473) Rare SOURCE(BEAKER) (test yzzw=8522) Urine, Voided CBC W/PLT COUNT & AUTO [id number] 10:49:00 Test Item Value Reference Range Comments WHITE BLOOD CELL COUNT (BEAKER) (test lldo=119) 5.6 K/ L 3.5-10.5 RED BLOOD CELL COUNT (BEAKER) (test fydj=301) 3.10 M/ L 4.63-6.08 HEMOGLOBIN (BEAKER) (test xxyh=789) 9.8 GM/DL 13.7-17.5 HEMATOCRIT (BEAKER) (test tvgx=033) 29.7 % 40.1-51.0 MEAN CORPUSCULAR VOLUME (BEAKER) (test kvqg=229) 95.8 fL 79.0-92.2 MEAN CORPUSCULAR HEMOGLOBIN (BEAKER) (test 31.6 pg 25.7-32.2 jmso=965) MEAN CORPUSCULAR HEMOGLOBIN CONC (BEAKER) (test 33.0 GM/DL 32.3-36.5 zozq=231) RED CELL DISTRIBUTION WIDTH (BEAKER) (test 14.0 % 11.6-14.4 ukkf=915) PLATELET COUNT (BEAKER) (test nsnj=297) 171 K/CU MM 150-450 MEAN PLATELET VOLUME (BEAKER) (test crow=637) 11.1 fL 9.4-12.4 NUCLEATED RED BLOOD CELLS (BEAKER) (test 0 /100 WBC 0-0 hjij=149) NEUTROPHILS RELATIVE PERCENT (BEAKER) (test 69 % ronq=818) LYMPHOCYTES RELATIVE PERCENT (BEAKER) (test 16 % kpcz=443) MONOCYTES RELATIVE PERCENT (BEAKER) (test 10 % ghfi=277) EOSINOPHILS RELATIVE PERCENT (BEAKER) (test 4 % rckc=021) BASOPHILS RELATIVE PERCENT (BEAKER) (test 1 % qaxa=652) NEUTROPHILS ABSOLUTE COUNT (BEAKER) (test 3.88 K/ L 1.78-5.38 ngml=090) LYMPHOCYTES ABSOLUTE COUNT (BEAKER) (test 0.88 K/ L 1.32-3.57 ibdk=329) MONOCYTES ABSOLUTE COUNT (BEAKER) (test 0.56 K/ L 0.30-0.82 jzpe=065) EOSINOPHILS ABSOLUTE COUNT (BEAKER) (test 0.25 K/ L 0.04-0.54 dhdf=912) BASOPHILS ABSOLUTE COUNT (BEAKER) (test 0.03 K/ L 0.01-0.08 kvsb=044) IMMATURE GRANULOCYTES-RELATIVE PERCENT (BEAKER) 0 % 0-1 (test ktrq=9002)
--- OUTSIDE RECORDS SUMMARY | 2019-02-22 17:28 | XMS REPORT | Clinical Summary ---
:1940 Author Organization [facility] Address [address] [place] [address] Care Team Providers Name Role Phone Moo [...] 03/01/2018 Orders Only General Internal Medicine after 02/21/2018 Family History Medical History Relation Name Comments [...] 452 ms QTC Calculation(Bazett) 458 ms P [place] 66 degrees R [place] -24 degrees T [place] 140 degrees Normal sinus rhythm Possible Left [...] MICROSCOPIC STAT 03/01/2018 10:19 AM CDT after 02/21/2018 Results Urinalysis w/Microscopic (03/03/2018 11:08 AM CDT)Only the most recent of2 resultswithin the time period is included. Color, UA Yellow [facility] Clarity, UA Hazy [facility] Specific [place], UA 1.012 1.001 - 1.035 [facility] pH, UA 6.0 5.0 - 8.0 [facility] Protein, UA 600 mg/dL (A) Negative [facility] Glucose, UA 100 mg/dL (A) Negative [facility] Ketones, UA Negative Negative [facility] Bilirubin, UA Negative Negative [facility] Blood, UA Moderate (A) Negative [facility] Nitrite, UA Negative Negative [facility] Leukocytes, UA Small (A) Negative [facility] Urobilinogen, UA 0.2 0.2 - 1.0 mg/dL [facility] RBC, UA 27 /HPF [facility] WBC, UA 12 /HPF [facility] Bacteria, UA Occasional [facility] Mucus Rare [facility] Squam Epithel, UA <1 /HPF [facility] Hyaline Casts, UA 2 /LPF [facility] Granular Casts, UA 5 /LPF [facility] Specimen Source Urine, Yusuf [facility] Specimen Urine Performing Organization Address [facility] Phone Number [facility] [address] [place] [address] [place] Urine culture (03/03/2018 11:08 AM CDT) Result 70-79,000 col/mL Pseudomonas [facility] aeruginosa (A) [facility] Specimen Urine Organism [...] aeruginosa Tobramycin <=2: Susceptible Performing Organization Address [facility] Phone Number [address] [address] [place] ED ECG Interpretation (03/02/2018 7:12 AM CDT) Narrative Performed At Macrina Gómez MD 03/02/20187:12 AM ECG/EKG Interpretation Date/Time: 03/01/2018 10:25 AM Performed by: MACRINA GÓMEZ. Authorized by: MACRINA GÓMEZ The ECG was interpreted by ED physician. The ECG is interpreted as sinus rhythm. Rate is normal rate. Conduction: conduction normal. ST segments abnormal. T waves abnormal. [place] is normal. Other findings: no other findings. Clinical Impression: non-specific ECG and abnormal ECG CT abdomen pelvis without contrast (03/01/2018 1:46 PM CDT) Specimen Narrative Performed At FINAL REPORT [employer] [facility] ABDOMINAL AND PELVIS CT DATED 03/01/2018 [...] Report Verified Date/Time:03/01/2018 15:15:27 Reading Location: [facility] C013Y CT Body Reading Room [...] Report Verified Date/Time: 03/01/2018 15:15:27 Reading Location: [facility] C013Y CT Body Reading Room Performing Organization Address City/State/Zipcode Phone Number GE RIS CBC with platelet count + automated diff (03/01/2018 10:29 AM CDT) WBC 5.6 3.5 - 10.5 K/L [facility] RBC 3.10 (L) 4.63 - 6.08 M/L [facility] Hemoglobin 9.8 (L) 13.7 - 17.5 GM/DL [facility] Hematocrit 29.7 (L) 40.1 - 51.0 % [facility] MCV 95.8 (H) 79.0 - 92.2 fL [facility] MCH 31.6 25.7 - 32.2 pg [facility] MCHC 33.0 32.3 - 36.5 GM/DL [facility] RDW 14.0 11.6 - 14.4 % [facility] Platelets 171 150 - 450 K/CU MM [facility] MPV 11.1 9.4 - 12.4 fL [facility] nRBC 0 0 - 0 /100 WBC [facility] % Neutros 69 % [facility] % Lymphs 16 % [facility] % Monos 10 % [facility] % Eos 4 % [facility] % Baso 1 % [facility] # Neutros 3.88 1.78 - 5.38 K/L [facility] # Lymphs 0.88 (L) 1.32 - 3.57 K/L [facility] # Monos 0.56 0.30 - 0.82 K/L [facility] # Eos 0.25 0.04 - 0.54 K/L [facility] # Baso 0.03 0.01 - 0.08 K/L [facility] Immature Granulocytes-Relative 0 0 - 1 % [facility] Specimen Blood Performing Organization Address City/State/Zipcode Phone Number [address] [address] CENTER Lipase (03/01/2018 10:29 AM CDT) Lipase 61 8 - 78 U/L [facility] Specimen Blood Performing Organization Address [facility] Phone Number [address] [address] [place] Amylase (03/01/2018 10:29 AM CDT) Amylase 113 25 - 125 U/L [facility] Specimen Blood Performing Organization Address City/[facility]/Zipcode Phone Number [address] [address] [place] Hepatic function panel (03/01/2018 10:29 AM CDT) Protein, Total 6.8 6.0 - 8.3 gm/dL [facility] Albumin 3.5 3.5 - 5.0 g/dL [facility] Total Bilirubin 0.4 0.2 - 1.2 mg/dL [facility] Bilirubin, Direct 0.2 0.1 - 0.5 mg/dL [facility] Alkaline Phosphatase 78 40 - 150 U/L [facility] AST 20 5 - 34 U/L [facility] ALT 21 6 - 55 U/L [facility] Specimen Blood Performing Organization Address City/[facility] Phone Number [facility] [address] [place] [address] [phone] [place] Basic Metabolic Panel (03/01/2018 10:29 AM CDT) Sodium 136 136 - 145 meq/L [facility] Potassium 4.0 3.5 - 5.1 meq/L [facility] Chloride 108 (H) 98 - 107 meq/L [facility] CO2 15 (L) 22 - 29 meq/L [facility] BUN 80 (H) 7 - 21 mg/dL [facility] Creatinine 4.79 (H) 0.57 - 1.25 mg/dL [facility] Glucose 84 70 - 105 mg/dL [facility] Calcium 8.9 8.4 - 10.2 mg/dL [facility] EGFR 12Comment: ESTIMATED GFR IS mL/min/1.73 sq m [facility] NOT ACCURATE CREATININE [facility] CLEARANCE IN PREDICTING GLOMERULAR FILTRATION RATE. ESTIMATED GFR IS NOT APPLICABLE FOR DIALYSIS PATIENTS. Specimen Blood Performing Organization Address [facility] Phone Number [facility] [address] [place] [address] [place] ECG 12 lead (03/01/2018 10:20 AM CDT) Specimen Narrative Performed At Ventricular Rate 62 BPM GE MUSE Atrial Rate 62 BPM P-R Interval 178 ms QRS Duration 96 ms Q-T Interval 452 ms QTC Calculation(Bazett) 458 ms P [place] 66 degrees R [place] -24 degrees T [place] 140 degrees Normal sinus rhythm Possible Left [...] 452 ms QTC Calculation(Bazett) 458 ms P [place] 66 degrees R [place] -24 degrees T [place] 140 degrees Normal sinus rhythm Possible Left [...] Address City/State/Zipcode Phone Number GE MUSE after 02/21/2018 Insurance Payer Benefit Plan / Group Subscriber ID Type Phone Address MEDICARE MEDICARE A B xxxxxxxxxx Medicare MEDICAID MEDICAID [facility] xxxxxxxxx Medicaid Advance Directives For more information, please contact:[address] [phone] Code Status Date Activated Date Inactivated Comments [...]
--- OUTSIDE RECORDS SUMMARY | 2019-02-22 17:31 | XMS REPORT | Summary of Care ---
:1940 Author Organization [facility] Address [address] [place] [address] Care Team Providers Name Role Phone Farrukh Team Service/Team Unavailable Martín Tyler DO Primary Care Provider Dash Jacobson DO Sales Coordinator Reason for Visit Reason Comments Refill Request Encounter Details Date Type Department Care Team Description 02/14/2019 Refill [facility] Cardiology- Lisa Spangler MD Refill Request [address] [facility], [address] [place] [address] [place] [address] Allergies Active Allergy Reactions Severity Noted Date Comments Aspirin Unknown - See comments 02/07/2019 documented as of this encounter (statuses as of 02/17/2019) Medications Medication Sig Dispensed Refills Start Date End Date Status Blood-Glucose Meter Kit Use as 1 Kit 0 01/29/2018 Active directed Blood-Glucose Meter Use daily dx 1 Kit [...] as needed for Pain (scale 4-6). atorvastatin 10 mg Take 1 tablet 90 tablet 1 02/17/2019 Active tabletIndications: by mouth Coronary artery disease daily. involving coronary bypass graft of [place] heart without angina pectoris, Pure hypercholesterolemia hydrALAZINE 50 mg Take 1 tablet 180 tablet 1 02/17/2019 Active tabletIndications: by mouth 2 Abdominal pain in male (two) times daily. documented as of this encounter (statuses as of 02/17/2019) Active Problems Problem Noted Date Acute on chronic combined systolic and diastolic congestive heart failure 11/2018 PAD (peripheral artery disease) 02/14/2019 Hyperkalemia 02/07/2019 Abdominal pain 01/21/2019 Generalized abdominal pain 01/07/2019 Nonrheumatic aortic valve stenosis 01/06/2019 Pulmonary hypertension 01/06/2019 Bilateral carotid artery disease 01/06/2019 (HFpEF) heart failure with preserved ejection fraction 01/06/2019 Cholecystitis 01/05/2019 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 Overview: Added automatically from request for surgery [id number] Colitis 10/12/2018 E44.0 Moderate protein calorie malnutrition 08/25/2018 Anasarca 08/20/2018 ESRD (end stage renal disease) 08/20/2018 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, macular edema presence unspecified Coronary artery disease involving coronary bypass graft of [place] heart 2016 without angina pectoris Wound, surgical, [...] 01/01/2006 Dermatophytosis 01/01/2006 Overview: ICD10 Diagnosis Term Director Of Strategic Alliances Utility documented as of this encounter (statuses as of 02/17/2019) Resolved Problems Problem Noted Date Resolved Date [...] retinopathy 12/11/2006 07/09/2013 Overview: ICD10 Diagnosis Term Director Of Strategic [employer] Utility Type II or unspecified type diabetes mellitus without mention 01/01/2006 of complication, not stated as uncontrolled documented as of this encounter (statuses as of 02/17/2019) Immunizations Name Administration Dates Next Due Influenza [...] Treatment Date Type Specialty Care Team Description 02/24/2019 Appointment Radiology Lisa Spangler MD 146 [facility] [address] [place] [id number] 02/24/2019 Appointment Radiology Lisa Spangler MD 146 [facility] 106 [place], [place] [address] 02/24/2019 Appointment Radiology Lisa Spangler MD 146 [facility] [address] [place], [place] [address] 02/24/2019 Appointment Radiology Lisa Spangler MD 146 [facility] [address] [place] [address] [phone] 04/22/2019 Office Visit Internal Medicine Martín Tyler, DO [address] [facility] [id number] [place], [place] [address] Health Maintenance Due Date Last Done Comments [...] of this encounter Implants Implanted Type Area Muck Farmer Device Shelf Model / Serial Identifier Expiration / Lot Date Lens, Faustino #Sn60wf 24.0d - [id number] LENS Left: Eye Faustino 11/09/2016 SN60WF 24.0D / Implanted: Qty: 1 on 02/08/2013 by Matthew Serna MD at [facility] / [id number] Log [id number] - Lilly Perezon Lens (Virtual) - 1 - Lens, Faustino #[id number] 24.0d LENS Right: Faustino 01/06/2018 SN60WF 24.0D / Implanted: Qty: 1 on 03/08/2013 at [facility] Eye [id number] / documented as of this encounter Results Not on filedocumented in this encounter Visit Diagnoses Diagnosis Coronary artery disease involving coronary bypass graft of [place] heart without angina pectoris Pure hypercholesterolemia Abdominal pain in male documented in this encounter Insurance Payer Benefit Plan / Subscriber ID Effective Dates Phone Address Type Group MEDICARE MEDICARE PART xxxxxxxxxxx 2004-Prese [phone] [address] Medicare A & B 2 [id number] [place] [id number] [facility] MEDICAID OF xxxxxxxxx 2011-Presprerna [phone] [address] Medicaid [facility] 0 [id number] [place] [address] documented as of this encounter Advance Directives Type Date Recorded Patient Stone Belt Sander Explanation Advance Directives and Living Will Power of Vice President Research
--- OUTSIDE RECORDS SUMMARY | 2019-02-22 17:31 | XMS REPORT | Summary of Care ---
:1940 Author Organization [facility] Address [address] [place] [address] Care Team Providers Name Role Phone Amaya Chadwick Service/Team Unavailable Martín Tyler DO Primary Care Provider Dash Jacobson DO Entry Specialist Reason for Referral Radiology Services (Routine) Status Reason Specialty Diagnoses / Referred By Referred To Procedures Contact Contact Authorized Radiology Diagnoses Chronic systolic heart failure Chronic systolic heart failure Lisa Spangler MD Adc Nuclear Procedures NM MYOCARDIUM PERFUSION STRESS AND REST CHG MYOCARDIAL SPECT MULTIPLE STUDIES MYOCARDIAL SPECT MULTIPLE STUDIES 146 [facility] 132 [facility] [address] [place] [phone] Phone: Reason for Visit Reason Comments Stress Encounter Details Date Type Department Care Team Description 02/15/2019 Telephone [facility] Cardiology- Lisa Spangler MD Stress [place] 146 [facility] [address] [facility], [address] [place] [address] [place] [address] Allergies Active Allergy Reactions Severity Noted Date Comments Aspirin Unknown - See comments 02/07/2019 documented as of this encounter (statuses as of 02/18/2019) Medications Medication Sig Dispensed Refills Start Date End Date Status Blood-Glucose Meter Use as directed 1 Kit 0 01/29/2018 Active Kit Blood-Glucose Meter Use daily dx 1 Kit 0 04/19/2018 Active KitIndications: Type code E11.21 2 diabetes mellitus with retinopathy, with long-term current use of insulin, macular edema presence unspecified, unspecified laterality, unspecified retinopathy severity blood sugar Use daily dx 100 Strip 3 04/19/2018 Active diagnostic (BLOOD code E11.21 GLUCOSE TEST) strip lancets (ONE TOUCH Use daily dx 100 Each 3 04/19/2018 Active DELICA) 33 gauge code E11.21 MiscIndications: Type 2 diabetes mellitus with diabetic nephropathy, with long-term current use of insulin clonazePAM 0.5 mg Take 1 tablet by 90 tablet 1 08/19/2018 Active tabletIndications: mouth 3 (three) Anxiety times daily as needed (panic or anxiety attack). brinzolamide 1 % Place 1 Drop in 10 mL 1 09/10/2018 Active ophthalmic suspension both eyes 3 dropsIndications: (three) times End-stage glaucoma daily. NITROGLYCERIN 0.[address] 1 TABLET 75 tablet 0 09/23/2018 Active sublingual UNDER THE TONGUE tabletIndications: EVERY 5 (FIVE) Stable angina MINUTES pectoris NEEDED FOR CHEST PAIN. latanoprost 0.005 % Place 1 Drop in 3 Bottle 2 10/04/2018 Active ophthalmic both eyes every dropsIndications: evening. End-stage glaucoma docusate 100 mg Take 1 capsule 30 capsule 3 10/20/2018 Active capsuleIndications: by mouth daily. Constipation, unspecified constipation type amLODIPine 10 mg Take 1 tablet by 90 tablet 0 12/20/2018 Active tablet mouth daily. terbinafine HCl Apply to 1 Tube 3 01/14/2019 Active (LAMISIL AT) 1 % area(s) 2 (two) creamIndications: times daily. Tinea pedis of both feet acetaminophen-codeine Take 1 tablet by 20 tablet 0 01/22/2019 Active (TYLENOL-CODEINE #3) mouth every 6 300-30 mg (six) hours as tabletIndications: needed for Pain Generalized abdominal (scale 4-6) or pain Pain (scale 7-10). pantoprazole 40 mg EC Take 1 tablet by 30 tablet 0 01/22/2019 Active tabletIndications: mouth daily. Generalized abdominal pain acetaminophen-codeine Take 1 tablet by 20 tablet 0 01/26/2019 Active (TYLENOL-CODEINE #3) mouth every 6 300-30 mg (six) hours as tabletIndications: needed for Pain Generalized abdominal (scale 7-10). pain ondansetron (ZOFRAN) Take 1 tablet by 12 tablet 0 01/26/2019 Active 4 mg mouth every 8 tabletIndications: (eight) hours as Generalized abdominal needed for pain Nausea and Vomiting (N/V). traMADol 50 mg Take 1 tablet by 15 tablet 0 02/08/2019 Active tabletIndications: mouth every 6 Hyperkalemia (six) hours as needed for Pain (scale 4-6). atorvastatin 40 mg Take 1 tablet by 30 tablet 0 02/14/2019 03/16/2019 Active tabletIndications: mouth at bedtime Abdominal pain in for 30 days. male carvedilol 12.5 mg Take 1 tablet by 60 tablet 0 02/14/2019 03/16/2019 Active tabletIndications: mouth 2 (two) Abdominal pain in times daily with male meals for 30 days. clopidogrel 75 mg Take 1 tablet by 30 tablet 0 02/14/2019 03/16/2019 Active tabletIndications: mouth daily for Abdominal pain in 30 days. male furosemide 80 mg Take 1 tablet by 30 tablet 0 02/15/2019 03/17/2019 Active tabletIndications: mouth daily for Abdominal pain in 30 days. male documented as of this encounter (statuses as of 02/18/2019) Active Problems Problem Noted Date Acute on chronic combined systolic and diastolic congestive heart failure 11/2018 PAD (peripheral artery disease) 02/14/2019 Hyperkalemia 02/07/2019 Abdominal pain 01/21/2019 Generalized abdominal pain 01/07/2019 Nonrheumatic aortic valve stenosis 01/06/2019 Pulmonary hypertension 01/06/2019 Bilateral carotid artery disease 01/06/2019 (HFpEF) heart failure with preserved ejection fraction 01/06/2019 Cholecystitis 01/05/2019 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 Overview: Added automatically from request for surgery [id number] Colitis 10/12/2018 E44.0 Moderate protein calorie malnutrition 08/25/2018 Anasarca 08/20/2018 ESRD (end stage renal disease) 08/20/2018 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, macular edema presence unspecified Coronary artery disease involving coronary bypass graft of [place] heart 2016 without angina pectoris Wound, surgical, [...] 01/01/2006 Dermatophytosis 01/01/2006 Overview: ICD10 Diagnosis Term Rn Integrated Utility documented as of this encounter (statuses as of 02/18/2019) Resolved Problems Problem Noted Date Resolved Date [...] retinopathy 12/11/2006 07/09/2013 Overview: ICD10 Diagnosis Term Rn Integrated Utility Type II or unspecified type diabetes mellitus without mention 01/01/2006 of complication, not stated as uncontrolled documented as of this encounter (statuses as of 02/18/2019) Immunizations Name Administration Dates Next Due Influenza [...] Description 02/24/2019 Appointment Radiology Lisa Spangler MD [address] [place] [address] 02/24/2019 Appointment Radiology Lisa Spangler MD [address] [place] [address] 02/24/2019 Appointment Radiology Lisa Spangler MD [address] [place] [address] 02/24/2019 Appointment Radiology Lisa Spangler MD [address] [place] [address] 02/24/2019 Appointment Echocardiograph Lisa Spangler MD [address] [place] [address] Victoriano Daniel Cardio Echo 04/22/2019 Office Visit Internal Medicine Martín Tyler, [address] [place], [place] [address] Name Type Priority Associated Diagnoses Order Schedule NM MYOCARDIUM PERFUSION IMAGING Routine Chronic systolic heart Expected: , STRESS AND REST failure Expires: 02/16/2020 Health Maintenance Due Date Last Done Comments [...] of this encounter Implants Implanted Type Area Senior Benefits Manager Device Shelf Model / Serial Identifier Expiration / Lot Date Lens, Faustino #Sn60wf 24.0d - [id number] LENS Left: Eye Faustino 11/09/2016 SN60WF 24.0D / Implanted: Qty: 1 on 02/08/2013 by Matthew Serna MD at [facility] / [id number] Log [id number] - Tray, Faustino Lens (Virtual) - 1 - Lens, Afustino #[id number] 24.0d LENS Right: Faustino 01/06/2018 SN60WF 24.0D / Implanted: Qty: 1 on 03/08/2013 at [facility] Eye [id number] / documented as of this encounter Results Not on filedocumented in this encounter Visit Diagnoses Diagnosis Chronic systolic heart failure - Primary documented in this encounter Insurance Payer Benefit Plan / Subscriber ID Effective Dates Phone Address Type Group MEDICARE MEDICARE PART xxxxxxxxxxx 2004-Prese [phone] [address] Medicare A & B 2 [id number] [place] [id number] [facility] MEDICAID OF xxxxxxxxx 2011-Presprer[place] [phone] [address] Medicaid [facility] 0 [id number] [place] [address] documented as of this encounter Advance Directives Type Date Recorded Patient Helix Coil Winder Explanation Advance Directives and Living Will Power of Entry Operator
--- OUTSIDE RECORDS SUMMARY | 2019-02-22 17:31 | XMS REPORT | Summary of Care ---
:1940 Author Organization [facility] Address [address] [place] [address] Care Team Providers Name Role Phone Amaya Chadwick Service/Team Unavailable Martín Tyler DO Primary Care Provider Dash Jacobson DO Materials Coordinator Reason for Referral Radiology Services (Routine) Status Reason Specialty Diagnoses / Referred By Referred To Procedures Contact Contact Authorized Radiology Diagnoses Chronic systolic heart failure Chronic systolic heart failure Lisa Spangler MD Adc Nuclear Procedures NM MYOCARDIUM PERFUSION STRESS AND REST CHG MYOCARDIAL SPECT MULTIPLE STUDIES MYOCARDIAL SPECT MULTIPLE STUDIES [address] [facility] [address] [facility] [address] [place] [phone] Phone: Reason for Visit Reason Comments Stress Encounter Details Date Type Department Care Team Description 02/15/2019 Telephone [facility] Cardiology- Lisa Spangler MD Stress [place] [address] [facility] [address] [facility], [address] [place] [address] [place] [address] Allergies Active Allergy Reactions Severity [...] Overview: Added automatically from request for surgery [id number] Colitis 10/12/2018 E44.0 Moderate protein calorie malnutrition 08/25/2018 Anasarca 08/20/2018 ESRD (end stage renal disease) 08/20/2018 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, macular edema presence unspecified Coronary artery disease involving coronary bypass graft of [place] heart 2016 without angina pectoris Wound, surgical, [...] 01/01/2006 Dermatophytosis 01/01/2006 Overview: ICD10 Diagnosis Term Creative Project Manager Utility documented as of this encounter (statuses [...] retinopathy 12/11/2006 07/09/2013 Overview: ICD10 Diagnosis Term Creative Project Manager Utility Type II or unspecified type diabetes [...] Description 02/24/2019 Appointment Radiology Lisa Spangler MD [address] [place] [address] 02/24/2019 Appointment Radiology Lisa Spangler MD [address] [place] [address] 02/24/2019 Appointment Radiology Lisa Spangler MD [address] [place] [address] 02/24/2019 Appointment Radiology Lisa Spangler MD [address] [place] [address] 02/24/2019 Appointment Echocardiograph Lisa Spangler MD [address] [place] [address] Victoriano Daniel Cardio Echo 04/22/2019 Office Visit Internal Medicine Martín Tyler, [id number] [place], [place] [id number] Name Type Priority Associated Diagnoses Order Schedule [...] of this encounter Implants Implanted Type Area Hand I Thermal Cutter Device Shelf Model / Serial Identifier Expiration / Lot Date Lens, Faustino #Sn60wf 24.0d - [id number] LENS Left: Eye Faustino 11/09/2016 SN60WF 24.0D / Implanted: Qty: 1 on 02/08/2013 by Matthew Serna MD at [facility] / [id number] - Tray, Faustino Lens (Virtual) - 1 - Lens, Faustino #Sn60wf 24.0d LENS Right: Faustino 01/06/2018 SN60WF 24.0D / Implanted: Qty: 1 on 03/08/2013 at [facility] Eye [id number] / documented as of this encounter Results Not on filedocumented in this encounter Visit Diagnoses Diagnosis Chronic systolic heart failure - Primary documented in this encounter Insurance Payer Benefit Plan / Subscriber ID Effective Dates Phone Address Type Group MEDICARE MEDICARE PART xxxxxxxxxxx 2004-Prese [phone] [address] Medicare A & B 2 [id number] [place] [phone] [facility] MEDICAID OF xxxxxxxxx 2011-Presprerna [phone] [address] Medicaid [facility] 0 [id number] [place] [address] documented as of this encounter Advance Directives Type Date Recorded Patient Vocational Nurse Lvn Explanation Advance Directives and Living Will Power of Manager Report
--- OUTSIDE RECORDS SUMMARY | 2019-02-22 17:32 | XMS REPORT | Summary of Care ---
:1940 Author Organization [facility] Address [address] [place] [address] Care Team Providers Name Role Phone Amaya Chadwick Service/Team Unavailable Martín Tyler DO Primary Care Provider Dash Jacobson DO Chief Supply Chain Officer Reason for Visit Reason Comments Abdominal Pain Auth/Cert Status Reason Specialty Diagnoses / Referred By Referred To Procedures Contact Contact Emergency Medicine [facility] [address] [place] [address] [place] [address] Encounter Details Date Type Department Care Team Description 02/20/2019 Emergency [facility]Emergency Gabriela Yusuf, PAC Abdominal pain, Department [address] [place] [address] unspecified abdominal [address] [place] [address] [place] [address] location (Primary Dx) [place] [id number] Allergies Active Allergy Reactions Severity Noted Date Comments Aspirin Unknown - See comments 02/07/2019 documented as of this encounter (statuses as of 02/20/2019) Medications Medication Sig Dispensed Refills Start Date [...] disease daily. involving coronary bypass graft of [place] heart without angina pectoris, Pure hypercholesterolemia atorvastatin 40 mg Take 1 tablet 30 tablet 0 02/14/2019 Active tabletIndications: by mouth at 9 Abdominal pain in male bedtime for 30 days. carvedilol 12.5 mg Take 1 tablet 60 tablet 0 02/14/2019 Active tabletIndications: by mouth 2 9 Abdominal pain in male (two) times daily with meals for 30 days. clopidogrel 75 mg Take 1 tablet 30 tablet 0 02/14/2019 Active tabletIndications: by mouth daily 9 Abdominal pain in male for 30 days. furosemide 80 mg Take 1 tablet 30 tablet 0 02/15/2019 Active tabletIndications: by mouth daily 9 Abdominal pain in male for 30 days. hydrALAZINE 50 mg Take 1 tablet 180 tablet 1 02/17/2019 Active tabletIndications: by mouth 2 Abdominal pain in male (two) times daily. documented as of this encounter (statuses as of 02/20/2019) Active Problems Problem Noted Date Acute on chronic combined systolic and diastolic congestive heart failure 11/2018 PAD (peripheral artery disease) 02/14/2019 Hyperkalemia 02/07/2019 Abdominal pain 01/21/2019 Generalized abdominal pain 01/07/2019 Nonrheumatic aortic valve stenosis 01/06/2019 Pulmonary hypertension 01/06/2019 Bilateral carotid artery disease 01/06/2019 (HFpEF) heart failure with preserved ejection fraction 01/06/2019 Cholecystitis 01/05/2019 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 Overview: Added automatically from request for surgery [id number] Colitis 10/12/2018 E44.0 Moderate protein calorie malnutrition 08/25/2018 Anasarca 08/20/2018 ESRD (end stage renal disease) 08/20/2018 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, macular edema presence unspecified Coronary artery disease involving coronary bypass graft of [place] heart 2016 without angina pectoris Wound, surgical, [...] 01/01/2006 Dermatophytosis 01/01/2006 Overview: ICD10 Diagnosis Term Hot Mill Roller Utility documented as of this encounter (statuses as of 02/20/2019) Resolved Problems Problem Noted Date Resolved Date [...] retinopathy 12/11/2006 07/09/2013 Overview: ICD10 Diagnosis Term Hot Mill Roller Utility Type II or unspecified type diabetes mellitus without mention 01/01/2006 of complication, not stated as uncontrolled documented as of this encounter (statuses as of 02/20/2019) Immunizations Name Administration Dates Next Due Influenza [...] Sign Reading Time Taken Comments Blood Pressure 167/54 02/20/2019 4:21 PM CDT Pulse 53 02/20/2019 4:21 PM CDT Temperature 36.7 C (98.1 F) 02/20/2019 4:21 PM CDT Respiratory Rate 14 02/20/2019 4:21 PM CDT Oxygen Saturation 96% 02/20/2019 4:21 PM CDT Inhaled Oxygen Concentration - - Weight 56.7 kg (125 lb) 02/20/2019 4:21 PM CDT Height - - Body Mass Index 20.8 02/13/2019 9:46 PM CDT documented in this encounter Discharge Instructions Gabriela Ring, PAC - 02/20/2019Continue taking the medication as prescribed by the doctor when you were discharged home. Return to the ER if you develop severe chest or abdominal pain that is worse than normal. Otherwise, follow up with Dr. Spangler and Dr. Fuller for further evaluation. AttachmentsThe following attachments cannot be sent through Care Everywhere.Abdominal Pain, Adult (Swazi)documented in this encounter Plan of Treatment Date Type Specialty Care Team Description 02/24/2019 Appointment Radiology Lisa Spangler MD [address] [place] [address] [place] [address] [phone] 02/24/2019 Appointment Radiology Lisa Spangler MD [address] [place] [address] [phone] 02/24/2019 Appointment Radiology Lisa Spangler MD [address] [place] [address] [phone] 02/24/2019 Appointment Radiology Lisa Spangler MD [address] [place] [address] [phone] 02/24/2019 Appointment Echocardiograph Lisa Spangler MD [address] [place] [address] [address] [place], [place] [address] Victoriano Daniel Cardio Echo 04/22/2019 Office Visit Internal Medicine Martín Tyler, DO [address] [facility] [id number] [place], [place] [id number] Health Maintenance Due Date Last Done Comments [...] of this encounter Implants Implanted Type Area Steelscope Operator Device Shelf Model / Serial Identifier Expiration / Lot Date Lens, Faustino #Sn60wf 24.0d - [id number] LENS Left: Eye Faustino 11/09/2016 SN60WF 24.0D / Implanted: Qty: 1 on 02/08/2013 by Matthew Serna MD at [facility] / [id number] Log [id number] - Tray, Faustino Lens (Virtual) - 1 - Lens, Faustino #Sn60wf 24.0d LENS Right: Faustino 01/06/2018 SN60WF 24.0D / Implanted: Qty: 1 on 03/08/2013 at [facility] Eye [id number] / documented as of this encounter Procedures Procedure Name Priority Date/Time Associated Diagnosis Comments CONSENT/REFUSAL FOR Routine 02/20/2019 3:59 PM CDT DIAGNOSIS AND TREATMENT documented in this encounter Results Not on filedocumented in this encounter Visit Diagnoses Diagnosis Abdominal pain, unspecified abdominal location - Primary documented in this encounter Administered Medications Medication Order MAR Action Action Date Dose Rate Site FENTanyl PF (SUBLIMAZE (PF)) Given 02/20/2019 5:04 PM CDT 25 mcg injection 25 mcg 25 mcg, Slow IV Push, ONCE, 1 dose, 02/20/19 at 1800, STAT documented in this encounter Insurance Payer Benefit Plan / Subscriber ID Effective Dates Phone Address Type Group MEDICARE MEDICARE PART xxxxxxxxxxx 2004-Prese [phone] [address] Medicare A & B 2 [id number] [place] [id number] [facility] MEDICAID OF xxxxxxxxx 2011-Presen [phone] [address] Medicaid [place] 0 [id number] [place] [address] ([place]) [place] [address] documented as of this encounter Advance Directives Type Date Recorded Patient Manager Information Explanation Advance Directives and Living Will Power of Portable Sawmill Operator
[2019-02-22] MEDS ORDERED: MORPHINE 4 MG/ML SYR ONE (18:32)
[2019-02-22 18:40] LABS: Absolute Lymphocytes (CBC) 0.5 K/uL (0.7-4.9); Basophils % 0.7 % (0-1.3); Hematocrit 36.2 % (39.6-49.0); Lymphocytes % 13.7 % (15.3-44.8); MPV 8.6 fL (7.6-11.3); RBC Red Blood Cell Count 3.62 M/uL (4.33-5.43)
[2019-02-22 19:01] LABS: Albumin 3.5 g/dL (3.4-5.0); Bilirubin Direct 0.2 mg/dL (0-0.2); Bilirubin Total 0.5 mg/dL (0.2-1.0); Protein, Total 7.6 g/dL (6.4-8.2)
[2019-02-22 19:08] LABS: Potassium 7.4 mmol/L (3.5-5.1)
[2019-02-22] MEDS ORDERED: INSULIN -REGULAR HUMAN 50 UNIT/0.5 ML ML ONE (19:21)
[2019-02-22] MEDS ORDERED: ALBUTEROL 2.5 MG/3 ML NEB SOL ONE (19:22)
[2019-02-22] MEDS ORDERED: Caclcium Chloride 10% INJ SYR IV ONE (19:22)
[2019-02-22] MEDS ORDERED: ONDANSETRON 4 MG/2 ML VIAL IV PRN (19:22)
[2019-02-22] MEDS ORDERED: D50W 25 GM/50 ML SYRINGE IV ONE ×3 (19:23→23:51)
[2019-02-22] MEDS ORDERED: SOD POLYSTYREN SUL 15 GM/60 ML UCUP PO ONE (19:33)
--- NOTE | 2019-02-22 19:43 | ER ---
Nurse's Notes [facility] Name: Blaise Quarles Age: 78 yrs Sex: Male : 1940 Arrival Date: 02/22/2019 Time: 17:27 Bed 4 Private MD: Diagnosis: End stage renal disease;Hyperkalemia Presentation: 02/22 17:37 Presenting complaint: Patient states: Worsening abd pain since last night. Denies la1 vomiting/diarrhea. Transition of care: patient was not received from another setting of care. Onset of symptoms was February 22, 2019. Risk Assessment: Do you want to hurt yourself or someone else? Patient reports no desire to harm self or others. Initial Sepsis Screen: Does the patient meet any 2 criteria? No. Patient's initial sepsis screen is negative. Does the patient have a suspected source of infection? No. Patient's initial sepsis screen is negative. Care prior to arrival: None. 17:37 Method Of Arrival: Wheelchair la1 17:37 Acuity: SARATH 3 la1 Historical: - Allergies: 17:38 Aspirin; la1 - PMHx: 17:38 CAD; cardiomegaly; Anemia; CHF; chronic renal disease; Cirrhosis; Diabetes - NIDDM; la1 Dialysis; High Cholesterol; Hypertension; Myocardial infarction; pleural effusion; pulmonary nodule; Visually impared; - Immunization history:: Adult Immunizations up to date. - Social history:: Smoking status: Patient/guardian denies using tobacco. - Ebola Screening: : No symptoms or risks identified at this time. - Family history:: not pertinent. - Hospitalizations: : No recent hospitalization is reported. Screenin:05 Abuse screen: Denies threats or abuse. Denies injuries from another. Nutritional rr5 screening: No deficits noted. Tuberculosis screening: No symptoms or risk factors identified. 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 Gait- Impaired (20 pts.). Total Parson Fall Scale indicates High Risk Score (45 or more points). Fall prevention measures have been instituted. Side Rails Up X 2 Placed Close to Nursing Station Frequent Obs/Assessments Occuring Family Present and informed to notify staff if the need to leave the bedside As available patient and family educated on Fall Prevention Program and Strategies. Assessment: 19:05 General: Appears in no apparent distress. comfortable, Behavior is calm, cooperative, rr5 appropriate for age. Pain: Complains of pain in abdomen Pain does not radiate. Pain Quality of pain is described as aching, Pain began gradually, Is intermittent. Neuro: Level of Consciousness is awake, alert, obeys commands, Oriented to Appropriate for age. Cardiovascular: Capillary refill < 3 seconds Patient's skin is warm and dry. Respiratory: Airway is patent Respiratory effort is even, unlabored, Respiratory pattern is regular, symmetrical. GI: Abdomen is flat, Bowel sounds present X 4 quads. Abd is soft and non tender Reports lower abdominal pain, upper abdominal pain. : No signs and/or symptoms were reported regarding the genitourinary system. EENT: No signs and/or symptoms were reported regarding the EENT system. Eyes blind. Derm: Skin is intact, Skin temperature is warm. Musculoskeletal: Circulation, motion, and sensation intact. Capillary refill < 3 seconds. 20:00 Reassessment: Patient appears in no apparent distress at this time. Patient is alert, rr5 oriented x 3, equal unlabored respirations, skin warm/dry/pink. symptoms improved as verbalized by the hand wrapper operator. 21:18 Reassessment: patient is diaphoretic drowsy. CBG rechecked 28mg/dl ED provider informed rr5 with order made and carried out. 21:30 Reassessment: Patient appears in no apparent distress at this time. Patient is alert, rr5 oriented x 3, equal unlabored respirations, skin warm/dry/pink. patient became awake able to communicate with his hand wrapper operator. shifted to ICU. vitally stable. breathing spontaneously with oxygen at 2 liters via nasal cannula. Vital Signs: 17:38 BP 143 / 55; Pulse 44; Resp 16; Temp 97.6; Pulse Ox 98% on R/A; la1 19:05 BP 163 / 63; Pulse 42; Resp 15; Temp 97.8; Pulse Ox 100% ; rr5 20:00 BP 161 / 95; Pulse 49; Resp 12; Temp 97.9; Pulse Ox 99% on 3 lpm NC; rr5 21:15 BP 162 / 60; Pulse 46; Resp 15; Temp 97.2; Pulse Ox 100% on 3 lpm NC; rr5 21:30 BP 161 / 65; Pulse 48; Resp 17; Pulse Ox 100% on 3 lpm NC; rr5 ED Course: 17:27 Patient arrived in ED. as 17:37 Triage completed. la1 17:38 Arm band placed on right wrist. la1 17:56 Morgan Vigil MD is Attending Physician. rn 18:25 Shoaib Valentin RN is Primary Nurse. rv 18:54 Mary Johnson FNP-C is [facility]. snw 19:00 Patient has correct armband on for positive identification. Placed in gown. Bed in low rr5 position. Call light in reach. Side rails up X2. surveillance system monitor on. Pulse ox on. NIBP on. 19:00 No provider procedures requiring assistance completed. Inserted saline lock: 22 gauge rr5 in right forearm, using aseptic technique. ,using aseptic technique. by stephany flowers Blood collected. 19:08 Notified Nurse Practitioner and/or Physician Feeder Loader of a critical lab result(s), la1 K-7.4. 19:42 Ankur Espinoza MD is Hospitalizing Provider. snw 21:00 Patient admitted, IV remains in place. intact, No redness/swelling at site. rr5 Administered Medications: 18:34 Drug: morphine 4 mg Route: IVP; Site: right forearm; rv 19:20 Drug: Calcium Chloride 10% 10 ml {Note: K 7.4.} Route: IVP; Site: right forearm; rr5 19:25 Drug: D50W 50 ml {Note: K 7.4.} Route: IVP; Site: right forearm; rr5 19:30 Drug: Albuterol 2.5 mg {Note: K 7.4.} Route: Inhalation; rr5 19:35 Drug: Albuterol 2.5 mg Route: Inhalation; rr5 19:40 Drug: Albuterol 2.5 mg Route: Inhalation; rr5 19:45 Drug: Insulin Regular Human 10 units {Co-Signature: ao (Lexx Dominguez RN).} {Note: K 7.4.} rr5 Route: IVP; Site: right forearm; 21:20 Drug: D50W 50 ml {Note: CBG 28mg/dl.} Route: IVP; Site: right forearm; rr5 Point of Care Testing: Blood Glucose: 21:18 Blood Glucose: 28 mg/dL; rr5 21:18 ED provider informed with order made and carried out. rr5 Ranges: Outcome: 19:43 Decision to Hospitalize by Provider. snw 21:00 Admitted to ICU accompanied by nurse, via stretcher, room 3, with oxygen, on monitor, rr5 with chart, Report called to tacos 21:00 Condition: stable 21:00 Instructed on the need for admit. 21:44 Patient left the ED. bb Signatures: Mary Johnson, CHANGE NUMBER OPERATOR-C CHANGE NUMBER OPERATOR-Csnw Shanthi Palmer Brenda, RN RN bb Morgan Vigil MD MD rn Attema, Lee, RN RN la1 Shoaib Valentin, RN RN Sergio Jean, RN RN rr5 Lexx Dominguez RN ao Corrections: (The following items were deleted from the chart) 17:39 17:38 BP 143 / 55; Pulse 44bpm; Resp 16bpm; Pulse Ox 98% RA; Temp 45F; la1 la1
--- NOTE | 2019-02-22 19:44 | EDPHYS ---
Physician Documentation [facility] Name: Blaise Quarles Age: 78 yrs Sex: Male : 1940 Arrival Date: 02/22/2019 Time: 17:27 Bed 4 Private MD: ED Physician Morgan Vigil HPI: 02/22 18:10 This 78 yrs old Male presents to ER via Wheelchair with complaints of rn Abdominal Pain. 18:10 The patient presents with abdominal pain that is diffuse. Onset: The symptoms/episode rn began/occurred at an unknown time. The symptoms do not radiate. Associated signs and symptoms: none. Pertinent negatives: anorexia, blood in stools, dysuria, fever, shortness of breath, testicular pain, vomiting. The symptoms are described as intermittent, sharp. Modifying factors: The symptoms are alleviated by nothing, the symptoms are aggravated by nothing. Severity of pain: At its worst the pain was moderate in the emergency department the pain is unchanged. The patient has experienced similar episodes in the past, chronically. The patient has been recently seen by a physician:. Reports abd pain, identical to previous episodes of abd pain, reports comes in for morphine, pain goes away in 10 minutes, missed dialysis today due to pain. Came here instead. NO fever/vomiting/diarrhea. NO trauma. Reports told in past maybe gallbladder problems but then told nevermind that it wasn't. Last told needed "camera". . Historical: - Allergies: 17:38 Aspirin; la1 - PMHx: 17:38 CAD; cardiomegaly; Anemia; CHF; chronic renal disease; Cirrhosis; Diabetes - NIDDM; la1 Dialysis; High Cholesterol; Hypertension; Myocardial infarction; pleural effusion; pulmonary nodule; Visually impared; - Immunization history:: Adult Immunizations up to date. - Social history:: Smoking status: Patient/guardian denies using tobacco. - Ebola Screening: : No symptoms or risks identified at this time. - Family history:: not pertinent. - Hospitalizations: : No recent hospitalization is reported. ROS: 18:10 Constitutional: Negative for fever, chills, and weight loss, Eyes: Negative for injury, rn pain, redness, and discharge, Cardiovascular: Negative for chest pain, palpitations, and edema, Respiratory: Negative for shortness of breath, cough, wheezing, and pleuritic chest pain, Abdomen/GI: Negative for vomiting, diarrhea, and constipation MS/Extremity: Negative for injury and deformity, Skin: Negative for injury, rash, and discoloration, Neuro: Negative for headache, numbness, tingling, and seizure. Exam: 18:10 Constitutional: This is a well developed, well nourished patient who is awake, alert, rn and in no acute distress. Head/Face: Normocephalic, atraumatic. ENT: MMM Chest/axilla: +right chest dialysis catheter Cardiovascular: Bradycardic, regular, no murmur Respiratory: Mild bibasilar crackls, speaking full sentences Abdomen/GI: soft, mild diffuse abd tenderness without focal findings, no periotneal signs. MS/ Extremity: No cyanosis. Neuro: Awake and alert, GCS 15, oriented to person, place, time, and situation. Vital Signs: 17:38 BP 143 / 55; Pulse 44; Resp 16; Temp 97.6; Pulse Ox 98% on R/A; la1 19:05 BP 163 / 63; Pulse 42; Resp 15; Temp 97.8; Pulse Ox 100% ; rr5 20:00 BP 161 / 95; Pulse 49; Resp 12; Temp 97.9; Pulse Ox 99% on 3 lpm NC; rr5 21:15 BP 162 / 60; Pulse 46; Resp 15; Temp 97.2; Pulse Ox 100% on 3 lpm NC; rr5 21:30 BP 161 / 65; Pulse 48; Resp 17; Pulse Ox 100% on 3 lpm NC; rr5 MDM: 17:56 Patient medically screened. rn 18:32 ED course: Pt does not want a ct abdomen, states "put in tube everytime" and "have rn never found a cause". Patient states here recently and at [facility] recently and no etiology found, states gets better with morphine each time and goes home and feels fine. I convinced him to atleast get bloodwork and go from there, especially since he missed dialysis today. . ED course: Patient with sinus bradycardia, chart review shows HR from 40s to 50s most of time.. 19:35 Data reviewed: vital signs, nurses notes. Data interpreted: Pulse oximetry: on room air snw is 100 %. Interpretation: normal. Counseling: I had a detailed discussion with the patient and/or guardian regarding: the historical points, exam findings, and any diagnostic results supporting the discharge/admit diagnosis, the presence of at least one elevated blood pressure reading (>120/80) during this emergency department visit, lab results, radiology results, the need for further work-up and treatment in the hospital. 19:39 Physician consultation: Ankur Espinoza MD was called at 19:20, was contacted at 19:20, snw regarding admission, and will see patient would like consultation with Dr. Segura. Special discussion: usually gets Dialysis at [facility]. . 19:40 Physician consultation: Alex Ervin MD was called at 19:40, was contacted at 19:41, snw regarding consult, patient's condition, need for dialysis. Dr. Ervin states he will call [facility] for urgent dialysis. 02/22 17:56 Order name: Basic Metabolic Panel; Complete Time: 19:13 rn 02/22 17:56 Order name: CBC with Diff; Complete Time: 18:44 rn 02/22 17:56 Order name: Hepatic Function; Complete Time: 19:13 rn 02/22 17:56 Order name: Lipase; Complete Time: 19:13 rn 02/22 18:20 Order name: BNP; Complete Time: 20:44 rn 02/22 18:10 Order name: EKG; Complete Time: 18:11 rn 02/22 19:26 Order name: CONS Pharmacy Consult [facility] 02/22 19:26 Order name: CONS Physician Consult [facility] 02/22 17:56 Order name: IV Saline Lock; Complete Time: 18:34 rn 02/22 17:56 Order name: Labs collected and sent; Complete Time: 18:35 rn 02/22 18:10 Order name: EKG - Nurse/Tech; Complete Time: 18:34 rn Administered Medications: 18:34 Drug: morphine 4 mg Route: IVP; Site: right forearm; rv 19:20 Drug: Calcium Chloride 10% 10 ml {Note: K 7.4.} Route: IVP; Site: right forearm; rr5 19:25 Drug: D50W 50 ml {Note: K 7.4.} Route: IVP; Site: right forearm; rr5 19:30 Drug: Albuterol 2.5 mg {Note: K 7.4.} Route: Inhalation; rr5 19:35 Drug: Albuterol 2.5 mg Route: Inhalation; rr5 19:40 Drug: Albuterol 2.5 mg Route: Inhalation; rr5 19:45 Drug: Insulin Regular Human 10 units {Co-Signature: ao (Lexx Dominguez RN).} {Note: K 7.4.} rr5 Route: IVP; Site: right forearm; 21:20 Drug: D50W 50 ml {Note: CBG 28mg/dl.} Route: IVP; Site: right forearm; rr5 Point of Care Testing: Blood Glucose: 21:18 Blood Glucose: 28 mg/dL; rr5 21:18 ED provider informed with order made and carried out. rr5 Ranges: Critical Glucose Levels:Adult <50 mg/dl or >400 mg/dl <40 mg/dl or >180 mg/dl Disposition: 02/22/19 19:43 Hospitalization ordered by Ankur Espinoza for Inpatient Admission. Preliminary diagnosis are End stage renal disease, Hyperkalemia. - Bed requested for Intensive Care Unit. - Status is Inpatient Admission. bb - Condition is Fair. - Problem is an acute exacerbation. - Symptoms have worsened. UTI on Admission? No Addendum: 02/25/2019 07:03 Co-signature as Attending Physician, Morgan Vigil MD. r n Signatures: Dispatcher [employer] EDMS Mary Johnson FNP-C [employer] WORKER-Csnw Naima Rojas, RN Morgan Dorado MD MD rn Attema, Lee RN HUONG la1 Mena Doty RN HUONG cg Shoaib Valentin, RN Sergio Vieyra RN RN rr5 eLxx kirby Corrections: (The following items were deleted from the chart) 02/22 20:26 19:43 Hospitalization Ordered by Ankur Espinoza MD for Inpatient Admission. Preliminary cg diagnosis is End stage renal disease; Hyperkalemia. Bed requested for Telemetry/MedSurg (Inpatient). Status is Inpatient Admission. Condition is Fair. Problem is an acute exacerbation. Symptoms have worsened. UTI on Admission? No. snw 20:26 20:26 02/22/2019 19:43 Hospitalization Ordered by Ankur Espinoza MD for Inpatient cg Admission. Preliminary diagnosis is End stage renal disease; Hyperkalemia. Bed requested for Intensive Care Unit. Status is Inpatient Admission. Condition is Fair. Problem is an acute exacerbation. Symptoms have worsened. UTI on Admission? No. cg 21:44 20:26 02/22/2019 19:43 Hospitalization Ordered by Ankur Espinoza MD for Inpatient bb Admission. Preliminary diagnosis is End stage renal disease; Hyperkalemia. Bed requested for Intensive Care Unit. Status is Inpatient Admission. Condition is Fair. Problem is an acute exacerbation. Symptoms have worsened. UTI on Admission? No. cg
[2019-02-22] MEDS: IPRATROPIUM BROM 0.5MG/2.5ML NEB SCH (20:00)
[2019-02-22] MEDS ORDERED: ALBUTEROL 2.5 MG/3 ML NEB SOL NEB SCH (20:00)
[2019-02-22 21:56] VITALS: BMI 21.6
[2019-02-23] MEDS: IPRATROPIUM BROM 0.5MG/2.5ML NEB SCH ×2 (02:00→08:00)
[2019-02-23 05:05] VITALS: TEMP 97.2
[2019-02-23 05:11] LABS: Absolute Lymphocytes (CBC) 0.4 K/uL (0.7-4.9); Basophils % 0.5 % (0-1.3); Hematocrit 33.1 % (39.6-49.0); Lymphocytes % 11.3 % (15.3-44.8); MPV 8.7 fL (7.6-11.3); RBC Red Blood Cell Count 3.36 M/uL (4.33-5.43)
[2019-02-23 05:18] LABS: Albumin 3.3 g/dL (3.4-5.0); Bilirubin Total 0.5 mg/dL (0.2-1.0); Potassium 4.4 mmol/L (3.5-5.1); Protein, Total 6.8 g/dL (6.4-8.2)
[2019-02-23 05:25] VITALS: O2SAT 99
[2019-02-23] MEDS ORDERED: BUMETANIDE 1 MG TABLET PO PRN (07:52)
[2019-02-23] MEDS ORDERED: NITROGLYCERIN 0.4 MG/TAB SL PRN (07:52)
[2019-02-23] MEDS ORDERED: ONDANSETRON 4 MG (ODT) TAB PO PRN (07:52)
--- NOTE | 2019-02-23 08:07 | P.HP ---
Certification for Inpatient Patient admitted to: Inpatient With expected LOS: >2 Midnights Patient will require the following post-hospital care: None Practitioner: I am a practitioner with admitting privileges, knowledge of patient current condition, hospital course, and medical plan of care. Services: Services provided to patient in accordance with Admission requirements found in Title 42 Section 412.3 of the Code of Federal Regulations Patient History Date of Service: 02/22/19 Reason for admission: Hyperkalemia History of Present Illness: Patient is a 78-year-old who has frequent admissions to the hospital. Patient has a history of end-stage renal disease. Patient was found to have hyperkalemia. Patient's potassium was 7.9. Patient was admitted to the ICU. Patient will have hemodialysis arranged. Will continue to monitor in the ICU. If patient is hemodialyzed we may be able to transfer to the floor in the morning. Patient has frequent hospital admissions. Patient has numerous medical issues including coronary artery disease and diabetes. Patient has renal dysfunction. Patient also has multiple admissions for hypoglycemia. Patient will be admitted for treatment of the hyperkalemia. Allergies aspirin Allergy (Verified 01/11/18 15:42) Nausea/Vomiting Home Medications: Atorvastatin Calcium [Lipitor*] 10 mg PO BEDTIME 12/15/17 clonazePAM [Clonazepam] 1 mg PO BID 08/03/18 Atorvastatin Calcium [Lipitor] 40 mg PO BEDTIME 02/22/19 Bumetanide 2 mg PO DAILY PRN 02/22/19 Buspirone HCl [Buspar*] 5 mg PO BEDTIME 02/22/19 Carvedilol [Coreg*] 12.5 mg PO BID 02/22/19 Clopidogrel Bisulfate [Plavix*] 75 mg PO DAILY 02/22/19 Docusate Sodium 100 mg PO DAILY 02/22/19 Furosemide 80 mg PO DAILY 02/22/19 Hydralazine HCl 50 mg PO BID 02/22/19 Nitroglycerin [Nitrostat] 0.4 mg SL Q5M PRN 02/22/19 Ondansetron HCl [Zofran] 4 mg PO Q8HP PRN 02/22/19 Ramipril 5 mg PO BEDTIME 02/22/19 - Past Medical/Surgical History Has patient received pneumonia vaccine in the past: No Diabetic: Yes -: CHF, combined -: End-stage renal disease on hemodialysis TThS -: Chronic anemia with thrombocytopenia -: CAD, prior CABG -: Liver cirrhosis -: Diabetes mellitus type 2 -: Hyperlipidemia -: Chronic abdominal pain -: Hypertension -: Anxiety -: HTN -: PE -: Repair of left finger fracture -: CABG -: cardiac stents -: R chest gillian placement Psychosocial/ Personal History: He is 56 years, has 13 children, he does not work. - Family History Father Medical History: GI disease Notes: none per pt - Social History Smoking Status: Former smoker Alcohol use: No CD- Drugs: No Caffeine use: No Place of Residence: Home Review of Systems 10-point ROS is otherwise unremarkable Physical Examination - Vital Signs Temperature: 97.2 F Blood Pressure: 171/67 Pulse: 57 Respirations: 13 Pulse Ox (%): 100 - Physical Exam General: Alert, In no apparent distress, Oriented x1, Demented HEENT: Atraumatic, PERRLA, Mucous membr. moist/pink, EOMI, Sclerae nonicteric Neck: Supple, 2+ carotid pulse no bruit, No LAD, Without JVD or thyroid abnormality Respiratory: Clear to auscultation bilaterally, Normal air movement Cardiovascular: Regular rate/rhythm, Normal S1 S2, Systolic murmur Gastrointestinal: Normal bowel sounds, Soft and benign, Non-distended, No tenderness Musculoskeletal: No tenderness Integumentary: No rashes Neurological: Normal speech, Normal tone, Sensation intact, Cranial nerves 3-12 intact, Normal affect, Abnormal gait, Abnormal strength Lymphatics: No axilla or inguinal lymphadenopathy - Studies Laboratory Data (last 24 hrs) 02/22/19 18:25: WBC 3.5 L D, Hgb 12.1 L, Hct 36.2 L, Plt Count 111 L 02/22/19 18:25: Sodium 134 L, Potassium 7.4 H*, BUN 56 H D, Creatinine 6.00 H* D , Glucose 92, Total Bilirubin 0.5, AST 25, ALT 28, Alkaline Phosphatase 148 H, Lipase 52 L Assessment & Plan - Problems (Diagnosis) (1) Hyperkalemia Current Visit: Yes Status: Acute (2) Acute on chronic diastolic CHF (congestive heart failure) Onset Date: 05/07/18 Current Visit: No Status: Chronic (3) Aortic stenosis Onset Date: 02/03/18 Current Visit: No Status: Chronic Qualifiers: (4) Coronary artery disease Onset Date: 07/15/17 Current Visit: No Status: Chronic Qualifiers: (5) Diabetes mellitus Onset Date: 07/15/17 Current Visit: No Status: Chronic Qualifiers: Diabetes mellitus type: type 2 Diabetes mellitus complication status: without complication (6) End stage renal disease Onset Date: 05/27/18 Current Visit: No Status: Chronic (7) Hypertension Onset Date: 02/21/16 Current Visit: No Status: Chronic Qualifiers: (8) Status post coronary artery bypass graft Onset Date: 07/15/17 Current Visit: No Status: Chronic - Plan Plan: 1. Nephrology consultation for hemodialysis 2. adjust medications 3. monitor blood sugars closely 4. admit to ICU 5. monitor additional electrolytes 6. strict blood pressure and blood sugar control 7. GI and DVT prophylaxis Discharge Plan: Home Plan to discharge in: 48 Hours - Advance Directives Does patient have a Living Will: No Does patient have a Durable POA for Healthcare: No - Code Status/Comfort Care Code Status Assessed: Yes Code Status: Full Code Critical Care: No Time Spent Managing PTS Care (In Minutes): 45
--- NOTE | 2019-02-23 08:55 | RAD REPORT ---
EXAM DESCRIPTION: RAD - Chest Single View - 02/23/2019 8:34 am CLINICAL HISTORY: ESRD, edematous Chest pain. COMPARISON: Chest Single View dated 02/02/2019; Chest Single View dated 01/15/2019; Chest Single View d ated 01/11/2019; Chest Single View dated 01/08/2019 FINDINGS: Portable technique limits examination quality. Mild interstitial pulmonary edema. Small moderate right pleural effusion is again noted, chronic in a ppearance. The heart is enlarged in size with right-sided venous catheter with its tip in the SVC. Ch anges of a prior CABG are noted. IMPRESSION: Mild CHF versus volume overload pattern.
[2019-02-23] MEDS ORDERED: clonazePAM 1 MG TAB PO SCH (09:00)
[2019-02-23] MEDS ORDERED: CLOPIDOGREL 75 MG TABLET PO SCH (09:00)
[2019-02-23] MEDS ORDERED: FUROSEMIDE 40 MG TABLET PO SCH (09:00)
[2019-02-23] MEDS ORDERED: CARVEDILOL 12.5 MG TAB PO SCH (09:00)
[2019-02-23] MEDS ORDERED: HYDRALAZINE HCL 25 MG TABLET PO SCH (09:00)
[2019-02-23] MEDS ORDERED: DOCUSATE NA 100 MG CAP PO SCH (09:00)
[2019-02-23] MEDS ORDERED: ACETAMINOPHEN 500 MG TAB PO PRN (09:02)
--- NOTE | 2019-02-23 09:49 | EKG ---
Test Date: 2019-02-22 Test Time: 18:24:32 Clerical Proofreader: RUSTY MEASUREMENT RESULTS: Intervals: Rate: 42 LA: 266 QRSD: 98 QT: 466 QTc: 389 [place]: P: 53 LA: 266 QRS: -47 T: 121 INTERPRETIVE STATEMENTS: Marked sinus bradycardia with 1st degree AV block Possible Left atrial enlargement Left axis deviation Septal infarct, age undetermined T wave abnormality, consider lateral ischemia Abnormal ECG Compared to ECG 02/16/2019 16:59:43 First degree AV block now present Myocardial infarct finding still present T-wave abnormality still present Possible ischemia still present Electronically Signed On 02-23-19 09:48:18 CDT by Raheel Zeng
--- NOTE | 2019-02-23 10:28 | P.DS ---
Admission Date: 02/22/19 Discharge Date: 02/23/19 Primary Care Provider: Belinda Cordoba Disposition: DC HOME/HOME HEALTH CARE Discharge Condition: GOOD Reason for Admission: Hyperkalemia Consultations: Nephrology-Dr. Jacobson Procedures: Medical problem list: Shortness of breath related to bilateral pleural effusion secondary to acute on chronic combined systolic/diastolic CHF and chronic liver cirrhosis complicated with poor compliance with dialysis End-stage renal disease on hemodialysis with hyperkalemia complicated with poor compliance with dialysis Hypertension Hyperlipidemia Anxiety Anemia of chronic disease with thrombocytopenia likely related to end-stage renal disease and chronic liver cirrhosis CAD Brief History of Present Illness: 78-year-old male presented to the emergency room with shortness of breath. Patient with end-stage renal disease on hemodialysis, CHF, CAD, hypertension, and noncompliance with dialysis. Patient found to have hyperkalemia with pulmonary edema. Patient was admitted for emergent dialysis. Patient admitted that he had missed dialysis. Family reports that he misses dialysis frequently. When he does go to dialysis he usually leaves early as well. Hospital Course: Patient presented with shortness of breath related 2 bilateral pleural effusions secondary to acute on chronic combined systolic/diastolic CHF and chronic liver cirrhosis complicated with poor compliance with dialysis. Patient found to have hyperkalemia as well. Patient was admitted for treatment. Emergent dialysis was required. Patient was monitored closely. Improvement noted. Repeat lab after dialysis showed potassium within normal range. Patient felt improved. Patient desired to leave AMA. Case discussed with nephrology. Nephrology-Dr. Jacobson is very aware of the patient and his history. Patient has compliance issue with dialysis. Since the patient is stable for discharge. Will discharge patient back home. Patient will continue with home oxygen to maintain sats above 90%. The patient was counseled extensively with family present about the importance of compliance with dialysis. This included to remain in dialysis for the duration required to prevent CHF and edema to the lower extremities. The patient appears to understand this. He plans to be more compliant in the future. At discharge he will continue with a 1500 cc per day fluid restriction and low-salt diet. At discharge patient will continue with Bumex 2 mg daily and Lasix 80 mg daily. Compliance with dialysis to be readdressed prior to discharge. Patient will continue with dialysis every Thursday, Thursday and Thursday. Next dialysis will be for tomorrow. Nephrology will follow up with patient during dialysis. Recommend to continue with home health at discharge to help with compliance and teach on the importance of dialysis, CHF, end-stage renal disease. Patient with hypertension. At discharge patient may continue with his current medications of carvedilol 12.5 mg 1 pill twice daily, ramipril 5 mg daily and hydralazine 50 mg 1 pill twice daily. Further adjustment can be done by nephrology. Patient with hyperlipidemia. At discharge he may continue with Lipitor 40 mg daily. Patient with chronic anxiety. At discharge patient may continue with buspirone 5 mg daily and clonazepam 1 mg twice daily as needed for anxiety. This can be further addressed by nephrology. Patient with CAD. Patient will continue with Plavix 75 mg daily. Patient may continue with nitroglycerin as needed for chest pain. Vital Signs/Physical Exam: Temp Pulse Resp BP Pulse Ox 97.2 F 53 18 173/66 H 97 02/23/19 08:11 02/23/19 10:00 02/23/19 10:00 02/23/19 10:00 02/23/19 10:00 General: Alert, In no apparent distress, Oriented x3, Cooperative HEENT: Atraumatic Neck: Supple Respiratory: Crackles/rales (Minimal to the bases bilateral) Cardiovascular: Normal pulses, Regular rate/rhythm Gastrointestinal: Normal bowel sounds, Soft and benign, Non-distended, No tenderness, No masses, No rebound, No guarding Musculoskeletal: No tenderness, No warmth Integumentary: Tenderness/swelling (1+ pitting edema to the lower extremities) Neurological: Normal speech, Normal strength at 5/5 x4 extr, Normal tone, Normal affect Laboratory Data at Discharge: WBC 3.3 K/uL (4.3-10.9) L 02/23/19 04:43 Hgb 11.1 g/dL (13.6-17.9) L 02/23/19 04:43 Hct 33.1 % (39.6-49.0) L 02/23/19 04:43 Plt Count 111 K/uL (152-406) L 02/23/19 04:43 Sodium 137 mmol/L (136-145) 02/23/19 04:43 Potassium 4.4 mmol/L (3.5-5.1) 02/23/19 04:43 BUN 29 mg/dL (7-18) H D 02/23/19 04:43 Creatinine 3.91 mg/dL (0.55-1.3) H D 02/23/19 04:43 Glucose 86 mg/dL (74-106) 02/23/19 04:43 Total Bilirubin 0.5 mg/dL (0.2-1.0) 02/23/19 04:43 AST 26 U/L (15-37) 02/23/19 04:43 ALT 25 U/L (12-78) 02/23/19 04:43 Alkaline Phosphatase 130 U/L (45-117) H 02/23/19 04:43 Lipase 52 U/L (73-393) L 02/22/19 18:25 Home Medications: clonazePAM [Clonazepam] 1 mg PO BID 08/03/18 Atorvastatin Calcium [Lipitor] 40 mg PO BEDTIME 02/22/19 Bumetanide 2 mg PO DAILY PRN 02/22/19 Buspirone HCl [Buspar*] 5 mg PO BEDTIME 02/22/19 Carvedilol [Coreg*] 12.5 mg PO BID 02/22/19 Clopidogrel Bisulfate [Plavix*] 75 mg PO DAILY 02/22/19 Docusate Sodium 100 mg PO DAILY 02/22/19 Furosemide 80 mg PO DAILY 02/22/19 Hydralazine HCl 50 mg PO BID 02/22/19 Nitroglycerin [Nitrostat*] 0.4 mg SL Q5M PRN 02/22/19 Ondansetron HCl [Zofran] 4 mg PO Q8HP PRN 02/22/19 Ramipril 5 mg PO BEDTIME 02/22/19 Patient Discharge Instructions: 1. Recommend follow up with Nephrology tomorrow during dialysis. 2. Patient presented with shortness of breath related 2 bilateral pleural effusions secondary to acute on chronic combined systolic/diastolic CHF and chronic liver cirrhosis complicated with poor compliance with dialysis. Patient found to have hyperkalemia as well. Patient was admitted for treatment. Emergent dialysis was required. Patient was monitored closely. Improvement noted. Repeat lab after dialysis showed potassium within normal range. Patient felt improved. Patient desired to leave AMA. Case discussed with nephrology. Nephrology-Dr. Jacobson is very aware of the patient and his history. Patient has compliance issue with dialysis. Since the patient is stable for discharge. Will discharge patient back home. Patient will continue with home oxygen to maintain sats above 90%. The patient was counseled extensively with family present about the importance of compliance with dialysis. This included to remain in dialysis for the duration required to prevent CHF and edema to the lower extremities. The patient appears to understand this. He plans to be more compliant in the future. At discharge he will continue with a 1500 cc per day fluid restriction and low-salt diet. At discharge patient will continue with Bumex 2 mg daily and Lasix 80 mg daily. Compliance with dialysis to be readdressed prior to discharge. Patient will continue with dialysis every Thursday, Thursday and Thursday. Next dialysis will be for tomorrow. Nephrology will follow up with patient during dialysis. Recommend to continue with home health at discharge to help with compliance and teach on the importance of dialysis, CHF, end-stage renal disease. 3. Patient with hypertension. At discharge patient may continue with his current medications of carvedilol 12.5 mg 1 pill twice daily, ramipril 5 mg daily and hydralazine 50 mg 1 pill twice daily. Further adjustment can be done by nephrology. 4. Patient with hyperlipidemia. At discharge he may continue with Lipitor 40 mg daily. 5. Patient with chronic anxiety. At discharge patient may continue with buspirone 5 mg daily and clonazepam 1 mg twice daily as needed for anxiety. This can be further addressed by nephrology. 6. Patient with CAD. Patient will continue with Plavix 75 mg daily. Patient may continue with nitroglycerin as needed for chest pain. Diet: Renal Activity: Fall precautions Time spent managing pt's care (in minutes): 55
[2019-02-23 11:06] VITALS: BP 134/79
[2019-02-23] MEDS ORDERED: ATORVASTATIN 40 MG TAB PO SCH (21:00)
[2019-02-23] MEDS ORDERED: BUSPIRONE HCL 5 MG TABLET PO SCH (21:00)
[2019-02-27 05:41] LABS: HBsAG Nonreactive (Nonreactive)
== END 2019-02-23 11:12 | disposition home or self-care (01) ==
LOC: ER 17:25 → INTOOBSV 19:22 → ERHOLD 19:22 → 3RD-ICU 20:59
PROVIDERS: ADMIT Hospitalist; ATTEND Family Medicine
PROC: 5A1D80Z Performance of Urinary Filtration, Prolonged Intermittent, 6-18 hours Per Day (ICD-10-PCS; principal; 2019-02-22)
DX: I13.2 Hypertensive heart and chronic kidney disease with heart failure and with stage 5 chronic kidney disease, or end stage renal disease (principal); I50.43 Acute on chronic combined systolic (congestive) and diastolic (congestive) heart failure; N18.6 End stage renal disease; I35.0 Nonrheumatic aortic (valve) stenosis; I25.10 Atherosclerotic heart disease of native coronary artery without angina pectoris; E11.22 Type 2 diabetes mellitus with diabetic chronic kidney disease; F41.9 Anxiety disorder, unspecified; K74.60 Unspecified cirrhosis of liver; E78.5 Hyperlipidemia, unspecified; D63.8 Anemia in other chronic diseases classified elsewhere; F17.210 Nicotine dependence, cigarettes, uncomplicated; Z53.21 Procedure and treatment not carried out due to patient leaving prior to being seen by health care provider; Z91.15 Patient's noncompliance with renal dialysis; Z99.2 Dependence on renal dialysis; Z95.1 Presence of aortocoronary bypass graft
CPT/HCPCS: 93005; 85025 ×2; 80048 ×2; 36415; 82962 ×3; 80076; 83690; 80053; 86317; 83880; 87340; 71045; 90935; 94640; 96375; 96374; 99285; J1644; G0378 ×2

== ENCOUNTER 2019-02-27 16:58 | Emergency (ER) | payer OTHER ==
--- OUTSIDE RECORDS SUMMARY | 2019-02-27 17:01 | XMS REPORT | Clinical Summary ---
:[address] [facility] Address [address] [place] [address] Care Team Providers Name Role Phone Moo [...] 03/01/2018 Orders Only General Internal Medicine after 02/26/2018 Family History Medical History Relation Name Comments [...] 452 ms QTC Calculation(Bazett) 458 ms P [place] 66 degrees R [place] -24 degrees T [place] 140 degrees Normal sinus rhythm Possible Left [...] MICROSCOPIC STAT 03/01/2018 10:19 AM CDT after 02/26/2018 Results Urinalysis w/Microscopic (03/03/2018 11:08 AM CDT)Only the most recent of2 resultswithin the time period is included. Color, UA Yellow [facility] Clarity, UA Hazy [facility] Specific [place], UA 1.012 1.001 - 1.035 [facility] pH, UA 6.0 5.0 - 8.0 [facility] Protein, UA 600 mg/dL (A) Negative [facility] Glucose, UA 100 mg/dL (A) Negative [facility] Ketones, UA Negative Negative [facility] Bilirubin, UA Negative Negative [facility] Blood, UA Moderate (A) Negative [facility] Nitrite, UA Negative Negative [facility] Leukocytes, UA Small (A) Negative [facility] Urobilinogen, UA 0.2 0.2 - 1.0 mg/dL [facility] RBC, UA 27 /HPF [facility] WBC, UA 12 /HPF [facility] Bacteria, UA Occasional [facility] Mucus Rare [facility] Squam Epithel, UA <1 /HPF [facility] Hyaline Casts, UA 2 /LPF [facility] Granular Casts, UA 5 /LPF [facility] Specimen Source Urine, Yusuf [facility] Specimen Urine Performing Organization Address [facility] Phone Number [facility] [address] [place] [address] [place] Urine culture (03/03/2018 11:08 AM CDT) Result 70-79,000 col/mL Pseudomonas [facility] aeruginosa (A) [facility] Specimen [...] aeruginosa Tobramycin <=2: Susceptible Performing Organization Address [facility] Phone Number [address] [address] [place] ED ECG Interpretation (03/02/2018 7:12 AM CDT) Narrative Performed At Macrina Gómez MD 03/02/20187:12 AM ECG/EKG Interpretation Date/Time: 03/01/2018 10:25 AM Performed by: MACRINA GÓMEZ. Authorized by: MACRINA GÓMEZ The ECG was interpreted by ED physician. The ECG is interpreted as sinus rhythm. Rate is normal rate. Conduction: conduction normal. ST segments abnormal. T waves abnormal. [place] is normal. Other findings: no other findings. Clinical Impression: non-specific ECG and abnormal ECG CT abdomen pelvis without contrast (03/01/2018 1:46 PM CDT) Specimen Narrative Performed At FINAL REPORT [employer] [facility] ABDOMINAL AND PELVIS CT [...] Report Verified Date/Time:03/01/2018 15:15:27 Reading Location: [facility] C013Y CT Body Reading [...] Verified Date/Time: 03/01/2018 15:15:27 Reading Location: [facility] C013Y CT Body Reading Room Performing Organization Address City/State/Zipcode Phone Number GE RIS CBC with platelet count + automated diff (03/01/2018 10:29 AM CDT) WBC 5.6 3.5 - 10.5 K/L [facility] RBC 3.10 (L) 4.63 - 6.08 M/L [facility] Hemoglobin 9.8 (L) 13.7 - 17.5 GM/DL [facility] Hematocrit 29.7 (L) 40.1 - 51.0 % [facility] MCV 95.8 (H) 79.0 - 92.2 fL [facility] MCH 31.6 25.7 - 32.2 pg [facility] MCHC 33.0 32.3 - 36.5 GM/DL [facility] RDW 14.0 11.6 - 14.4 % [facility] Platelets 171 150 - 450 K/CU MM [facility] MPV 11.1 9.4 - 12.4 fL [facility] nRBC 0 0 - 0 /100 WBC [facility] % Neutros 69 % [facility] % Lymphs 16 % [facility] % Monos 10 % [facility] % Eos 4 % [facility] % Baso 1 % [facility] # Neutros 3.88 1.78 - 5.38 K/L [facility] # Lymphs 0.88 (L) 1.32 - 3.57 K/L [facility] # Monos 0.56 0.30 - 0.82 K/L [facility] # Eos 0.25 0.04 - 0.54 K/L [facility] # Baso 0.03 0.01 - 0.08 K/L [facility] Immature Granulocytes-Relative 0 0 - 1 % [facility] Specimen Blood Performing Organization Address City/State/Zipcode Phone Number [address] [address] CENTER Lipase (03/01/2018 10:29 AM CDT) Lipase 61 8 - 78 U/L [facility] Specimen Blood Performing Organization Address City/[facility] Phone Number [address] [address] [place] Amylase (03/01/2018 10:29 AM CDT) Amylase 113 25 - 125 U/L [facility] Specimen Blood Performing Organization Address City/[facility]/Zipcode Phone Number [address] [address] [phone] [place] Hepatic function panel (03/01/2018 10:29 AM CDT) Protein, Total 6.8 6.0 - 8.3 gm/dL [facility] Albumin 3.5 3.5 - 5.0 g/dL [facility] Total Bilirubin 0.4 0.2 - 1.2 mg/dL [facility] Bilirubin, Direct 0.2 0.1 - 0.5 mg/dL [facility] Alkaline Phosphatase 78 40 - 150 U/L [facility] AST 20 5 - 34 U/L [facility] ALT 21 6 - 55 U/L [facility] Specimen Blood Performing Organization Address City/[facility] Phone Number [facility] [address] [place] [phone] [place] Basic Metabolic Panel (03/01/2018 10:29 AM CDT) Sodium 136 136 - 145 meq/L [facility] Potassium 4.0 3.5 - 5.1 meq/L [facility] Chloride 108 (H) 98 - 107 meq/L [facility] CO2 15 (L) 22 - 29 meq/L [facility] BUN 80 (H) 7 - 21 mg/dL [facility] Creatinine 4.79 (H) 0.57 - 1.25 mg/dL [facility] Glucose 84 70 - 105 mg/dL [facility] Calcium 8.9 8.4 - 10.2 mg/dL [facility] EGFR 12Comment: ESTIMATED GFR IS mL/min/1.73 sq m [facility] NOT ACCURATE CREATININE [facility] CLEARANCE IN PREDICTING GLOMERULAR FILTRATION RATE. ESTIMATED GFR IS NOT APPLICABLE FOR DIALYSIS PATIENTS. Specimen Blood Performing Organization Address City/[facility] Phone Number [facility] [address] [place] [phone] [place] ECG 12 lead (03/01/2018 10:20 AM CDT) Specimen Narrative Performed At Ventricular Rate 62 BPM [facility] Atrial Rate 62 BPM P-R Interval 178 ms QRS Duration 96 ms Q-T Interval 452 ms QTC Calculation(Bazett) 458 ms P [place] 66 degrees R [place] -24 degrees T [place] 140 degrees Normal sinus rhythm Possible Left [...] 452 ms QTC Calculation(Bazett) 458 ms P [place] 66 degrees R [place] -24 degrees T [place] 140 degrees Normal sinus rhythm Possible Left [...] Address City/State/Zipcode Phone Number GE MUSE after 02/26/2018 Insurance Payer Benefit Plan / Group Subscriber ID Type Phone Address MEDICARE MEDICARE A B xxxxxxxxxx Medicare MEDICAID MEDICAID [facility] xxxxxxxxx Medicaid Advance Directives For more information, please contact:[address] [phone] Code Status Date Activated Date Inactivated Comments [...]
--- OUTSIDE RECORDS SUMMARY | 2019-02-27 17:01 | XMS REPORT ---
:1940 [facility] Address [address] [place] [address] Dr. Manley [address] [place] [address] Care Team Providers Name Role Phone LAZRODNEY [...] Comments CULTURE (BEAKER) (test PSEUDOMONAS 70-79,000 col/mL eksx=8864) AERUGINOSA Pseudomonas aeruginosa Amikacin (test code=1) Susceptible [...] code=25) Resistant <0 or >4 URINALYSIS W/ [id number] 12:06:00 Test Item Value Reference Range Comments COLOR (BEAKER) (test sbkh=557) Yellow CLARITY (BEAKER) (test fhxb=829) Hazy SPECIFIC GRAVITY UA (BEAKER) (test atlw=709) 1.012 1.001-1.035 PH UA (BEAKER) (test yqwx=309) 6.0 5.0-8.0 PROTEIN UA (BEAKER) (test wtni=674) 600 mg/dL Negative GLUCOSE UA (BEAKER) (test fvjk=830) 100 mg/dL Negative KETONES UA (BEAKER) (test xpve=303) Negative Negative BILIRUBIN UA (BEAKER) (test nbpb=821) Negative Negative BLOOD UA (BEAKER) (test eebk=953) Moderate Negative NITRITE UA (BEAKER) (test oonz=506) Negative Negative LEUKOCYTE ESTERASE UA (BEAKER) (test gtlg=814) Small Negative UROBILINOGEN UA (BEAKER) (test ziwn=804) 0.2 mg/dL 0.2-1.0 RBC UA (BEAKER) (test cfwn=033) 27 /HPF WBC UA (BEAKER) (test tphy=091) 12 /HPF BACTERIA (BEAKER) (test ymvk=952) Occasional MUCUS (BEAKER) (test xehy=5182) Rare SQUAMOUS EPITHELIAL (BEAKER) (test dcwj=712) < /HPF HYALINE CASTS (BEAKER) (test xrif=288) 2 /LPF GRANULAR CASTS (BEAKER) (test jlcs=978) 5 /LPF SOURCE(BEAKER) (test ecdg=1269) Urine, Yusuf CT, [id number] 15:15:00Reason for exam:->ABDOMINAL PAINWhat is the patient's [...] Verified Date/ Time: 03/01/2018 15:15:27 Reading Location: [address] Body Reading Room BASIC METABOLIC [id number] 11:04:00 Test Item Value Reference Range Comments SODIUM (BEAKER) (test 136 meq/L 136-145 bwto=813) POTASSIUM (BEAKER) (test 4.0 meq/L 3.5-5.1 aukp=514) CHLORIDE (BEAKER) (test 108 meq/L 98-107 frhp=127) CO2 (BEAKER) (test 15 meq/L 22-29 tyfe=163) BLOOD UREA NITROGEN 80 mg/dL 7-21 (BEAKER) (test xlji=798) CREATININE (BEAKER) (test 4.79 mg/dL 0.57-1.25 yced=525) GLUCOSE RANDOM (BEAKER) 84 mg/dL 70-105 (test flrd=700) CALCIUM (BEAKER) (test 8.9 mg/dL 8.4-10.2 xbwk=977) EGFR (BEAKER) (test 12 mL/min/1.73 sq m ESTIMATED GFR IS NOT qlcc=7219) ACCURATE CREATININE CLEARANCE IN PREDICTING GLOMERULAR FILTRATION RATE. ESTIMATED GFR IS NOT APPLICABLE FOR DIALYSIS PATIENTS. [id number] 11:02:00 Test Item Value Reference Range Comments LIPASE (BEAKER) (test innr=123) 61 U/L 8-78 [id number] 11:02:00 Test Item Value Reference Range Comments AMYLASE (BEAKER) (test vpgq=248) 113 U/L 25-125 HEPATIC FUNCTION [id number] 11:02:00 Test Item Value Reference Range Comments TOTAL PROTEIN (BEAKER) (test kqpb=337) 6.8 gm/dL 6.0-8.3 ALBUMIN (BEAKER) (test xezo=5082) 3.5 g/dL 3.5-5.0 BILIRUBIN TOTAL (BEAKER) (test pkll=926) 0.4 mg/dL 0.2-1.2 BILIRUBIN DIRECT (BEAKER) (test zzgs=299) 0.2 mg/dL 0.1-0.5 ALKALINE PHOSPHATASE (BEAKER) (test xybn=151) 78 U/L 40-150 AST (SGOT) (BEAKER) (test apwr=177) 20 U/L 5-34 ALT (SGPT) (BEAKER) (test xuag=504) 21 U/L 6-55 URINALYSIS W/ [id number] 11:01:00 Test Item Value Reference Range Comments COLOR (BEAKER) (test txcm=362) Light Yellow CLARITY (BEAKER) (test anzf=628) Clear SPECIFIC GRAVITY UA (BEAKER) (test abwj=151) 1.006 1.001-1.035 PH UA (BEAKER) (test hxxf=990) 6.0 5.0-8.0 PROTEIN UA (BEAKER) (test lcqc=300) 300 mg/dL Negative GLUCOSE UA (BEAKER) (test tmaz=902) 30 mg/dL Negative KETONES UA (BEAKER) (test jwsa=433) Negative Negative BILIRUBIN UA (BEAKER) (test hiob=589) Negative Negative BLOOD UA (BEAKER) (test ukou=891) Trace Negative NITRITE UA (BEAKER) (test xcyx=230) Negative Negative LEUKOCYTE ESTERASE UA (BEAKER) (test togy=586) Negative Negative UROBILINOGEN UA (BEAKER) (test mjgs=414) 0.2 mg/dL 0.2-1.0 RBC UA (BEAKER) (test fmzo=576) < /HPF WBC UA (BEAKER) (test durr=160) < /HPF BACTERIA (BEAKER) (test anvr=973) Rare MUCUS (BEAKER) (test tydu=1351) Rare SOURCE(BEAKER) (test yuyx=6854) Urine, Voided CBC W/PLT COUNT & AUTO [id number] 10:49:00 Test Item Value Reference Range Comments WHITE BLOOD CELL COUNT (BEAKER) (test zyrr=249) 5.6 K/ L 3.5-10.5 RED BLOOD CELL COUNT (BEAKER) (test nzrv=556) 3.10 M/ L 4.63-6.08 HEMOGLOBIN (BEAKER) (test oxzl=288) 9.8 GM/DL 13.7-17.5 HEMATOCRIT (BEAKER) (test stfq=773) 29.7 % 40.1-51.0 MEAN CORPUSCULAR VOLUME (BEAKER) (test jeau=949) 95.8 fL 79.0-92.2 MEAN CORPUSCULAR HEMOGLOBIN (BEAKER) (test 31.6 pg 25.7-32.2 czgy=411) MEAN CORPUSCULAR HEMOGLOBIN CONC (BEAKER) (test 33.0 GM/DL 32.3-36.5 mokh=294) RED CELL DISTRIBUTION WIDTH (BEAKER) (test 14.0 % 11.6-14.4 rjqx=863) PLATELET COUNT (BEAKER) (test nwfd=402) 171 K/CU MM 150-450 MEAN PLATELET VOLUME (BEAKER) (test zvzi=175) 11.1 fL 9.4-12.4 NUCLEATED RED BLOOD CELLS (BEAKER) (test 0 /100 WBC 0-0 btzu=327) NEUTROPHILS RELATIVE PERCENT (BEAKER) (test 69 % slha=143) LYMPHOCYTES RELATIVE PERCENT (BEAKER) (test 16 % dhpm=695) MONOCYTES RELATIVE PERCENT (BEAKER) (test 10 % hnxo=902) EOSINOPHILS RELATIVE PERCENT (BEAKER) (test 4 % lzdb=737) BASOPHILS RELATIVE PERCENT (BEAKER) (test 1 % zzpi=164) NEUTROPHILS ABSOLUTE COUNT (BEAKER) (test 3.88 K/ L 1.78-5.38 vbcp=780) LYMPHOCYTES ABSOLUTE COUNT (BEAKER) (test 0.88 K/ L 1.32-3.57 ozwi=719) MONOCYTES ABSOLUTE COUNT (BEAKER) (test 0.56 K/ L 0.30-0.82 nnxj=108) EOSINOPHILS ABSOLUTE COUNT (BEAKER) (test 0.25 K/ L 0.04-0.54 jpbe=501) BASOPHILS ABSOLUTE COUNT (BEAKER) (test 0.03 K/ L 0.01-0.08 blbc=938) IMMATURE GRANULOCYTES-RELATIVE PERCENT (BEAKER) 0 % 0-1 (test alck=9950)
--- OUTSIDE RECORDS SUMMARY | 2019-02-27 17:06 | XMS REPORT | Summary of Care ---
:1940 Author Organization [facility] - [facility] Address [address] [place] [address] Care Team Providers Name Role Phone Amaya Chadwick Service/Team Unavailable Martín Tyler DO Primary Care Provider Dash Jacobson DO Refuse Collector Reason for Visit Reason Comments Abdominal Pain RUQ Auth/Cert Status Reason Specialty Diagnoses / Referred By Referred To Procedures Contact Contact Emergency Medicine [facility] [address] [place] [address] [place] [address] Encounter Details Date Type Department Care Team Description 02/24/2019 - Emergency ADC-Emergency Juan Jose Nayak, Abdominal pain, unspecified abdominal location (Primary Dx); 02/25/2019 Department MD Chronic abdominal pain [address] [place] [address] [address] [place] [address] [id number] [place], [place] [id number] Allergies Active Allergy Reactions Severity Noted Date Comments Aspirin Unknown - See comments 02/07/2019 documented as of this encounter (statuses as of 02/25/2019) Medications Medication Sig Dispensed Refills Start Date [...] disease daily. involving coronary bypass graft of [place] heart without angina pectoris, Pure hypercholesterolemia atorvastatin [...] as of this encounter (statuses as of 02/25/2019) Active Problems Problem Noted Date Acute on chronic combined systolic and diastolic congestive heart failure 11/2018 PAD (peripheral artery disease) 02/14/2019 Hyperkalemia 02/07/2019 Abdominal pain 01/21/2019 Generalized abdominal pain 01/07/2019 Nonrheumatic aortic valve stenosis 01/06/2019 Pulmonary hypertension 01/06/2019 Bilateral carotid artery disease 01/06/2019 (HFpEF) heart failure with preserved ejection fraction 01/06/2019 Cholecystitis 01/05/2019 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 Overview: Added automatically from request for surgery [id number] Colitis 10/12/2018 E44.0 Moderate protein calorie malnutrition 08/25/2018 Anasarca 08/20/2018 ESRD (end stage renal disease) 08/20/2018 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, macular edema presence unspecified Coronary artery disease involving coronary bypass graft of [place] heart 2016 without angina pectoris Wound, surgical, [...] 01/01/2006 Dermatophytosis 01/01/2006 Overview: ICD10 Diagnosis Term Professor Computer Science Utility documented as of this encounter (statuses as of 02/25/2019) Resolved Problems Problem Noted Date Resolved Date [...] retinopathy 12/11/2006 07/09/2013 Overview: ICD10 Diagnosis Term Professor Computer Science Utility Type II or unspecified type diabetes mellitus without mention 01/01/2006 of complication, not stated as uncontrolled documented as of this encounter (statuses as of 02/25/2019) Immunizations Name Administration Dates Next Due Influenza [...] Sign Reading Time Taken Comments Blood Pressure 168/72 02/25/2019 2:00 AM CDT Pulse 48 02/25/2019 2:00 AM CDT Temperature 36.4 C (97.6 F) 02/24/2019 11:39 PM CDT Respiratory Rate 16 02/25/2019 2:00 AM CDT Oxygen Saturation 100% 02/25/2019 2:00 AM CDT Inhaled Oxygen Concentration - - Weight 56.7 kg (125 lb) 02/24/2019 11:39 PM CDT Height - - Body Mass Index 20.8 02/13/2019 9:46 PM CDT documented in this encounter Discharge Instructions Juan Jose Giraldo MD - 02/25/2019 DIAGNOSIS Diagnoses that have been ruled out: None Diagnoses that are still under consideration: None Final diagnoses: Abdominal pain, unspecified abdominal location NO LIFE-THREATENING FINDINGS ON TODAY'S EXAM. PROCEDURES IN THE ER TODAY: Orders Placed This Encounter Procedures CBC WITH DIFF BASIC METABOLIC PANEL (NA, K, CL, CO2, GLUCOSE, BUN, CREATININE, CA) LIPASE HEPATIC FUNCTION PANEL (93984) (ALB,T.PRO,BILI T,BU/BC,ALT,AST,ALK PHOS) CBC WITH DIFFERENTIAL MEDICATIONS ADMINISTERED IN THE ER TODAY: Orders Placed This Encounter Medications morpHINE injection 4 mg ondansetron (ZOFRAN (PF)) injection 4 mg morpHINE injection 4 mg HYDROcodone-acetaminophen (NORCO) 10-325 mg tablet 1 tablet YOUR PRESCRIPTIONS AND [id number] MEDICATION RECOMMENDATIONS: Tylenol #3 SPECIAL CARE INSTRUCTIONS: Follow up with PCP Return to the ED if worsening of symptoms FOLLOW-UP RECOMMENDATIONS: RECOMMEND FOLLOW-UP WITH A PRIMARY CARE PROVIDER OR SPECIALIST IN 2-5 DAYS, ESPECIALLY IF NO IMPROVEMENT IN SYMPTOMS. TO FOLLOW-UP WITHIN THE [facility], TRY THESE OPTIONS (CLINIC APPOINTMENTS AVAILABLE ON [id number] BASIS): 1. SCHEDULE AN APPOINTMENT ONLINE AT WWW.[facility] 2. OR CALL THE [facility] AT OR 3. OR CALL YOUR [facility] PHYSICIAN'S OFFICE DIRECTLY IF YOU ARE ALREADY AN ESTABLISHED [facility] PATIENT. OR, YOU MAY FOLLOW-UP WITH A PROVIDER OF YOUR CHOICE, SUCH : 1. A PHYSICIAN OF YOUR CHOICE 2. [facility], . LOCATIONS IN [facility] 3. [facility], [address] [place], [place]; RETURN TO ER FOR WORSENING OF SYMPTOMS. AttachmentsThe following attachments cannot be sent through Care Everywhere.Abdominal Pain, Adult (Croatian)documented in this encounter Plan of Treatment Date Type Specialty Care Team Description 03/02/2019 Office Visit Gastroenterology Mary Hernandez, ACNP [address] [facility] [address] [place], [place] [id number] 04/22/2019 Office Visit Internal Medicine Martín Tyler, DO [address] [facility] [id number] [place] [address] Health Maintenance Due Date Last Done Comments DTaP,Tdap,and Td Vaccines (1 - 1960 Tdap) Zoster Recombinant Vaccine 1991 (SHINGRIX) (1 of 2) Medicare Wellness Visit 2006 EYE EXAM 08/13/2016 08/13/2015 (Previously completed), 06/14/2014, 06/14/2014, Additional history exists INFLUENZA VACCINE (#1) 2019 08/19/2018, 07/04/2017, 10/10/2016, Additional history exists HgA1C 07/24/2019 01/21/2019, 10/13/2018, 08/23/2018, Additional history exists LUNG CANCER SCREEN: Recommended 10/18/2019 10/17/2018 for age 55-80 with 30 + pack year history FOOT EXAM 01/15/2020 01/14/2019, 01/14/2019, 10/02/2017, Additional history exists LDL-C 01/22/2020 01/21/2019, 11/20/2017, 10/31/2015, Additional history exists CREATININE (SERUM) 02/26/2020 02/25/2019, 02/13/2019, 02/10/2019, Additional history exists PNEUMOCOCCAL VACCINES 65+ Completed 07/04/2017, 09/28/2015, 10/01/2007 documented as of this encounter Implants Implanted Type Area Barge Engineer Device Shelf Model / Serial Identifier Expiration / Lot Date Lens, Faustino #[id number] 24.0d - [id number] LENS Left: Eye Faustino 11/09/2016 SN60WF 24.0D / Implanted: Qty: 1 on 02/08/2013 by Matthew Serna MD at [facility] / [id number] Log [id number] - Tray, Faustino Lens (Virtual) - 1 - Lens, Faustino #[id number] 24.0d LENS Right: Faustino 01/06/2018 SN60WF 24.0D / Implanted: Qty: 1 on 03/08/2013 at [facility] Eye [id number] / documented as of this encounter Procedures Procedure Name Priority Date/Time Associated Diagnosis Comments CBC WITH DIFFERENTIAL STAT 02/25/2019 12:00 Abdominal pain, Results for this AM CDT unspecified procedure are in abdominal location the results section. CBC WITH DIFF STAT 02/25/2019 12:00 Abdominal pain, Results for this AM CDT unspecified procedure are in abdominal location the results section. BASIC METABOLIC PANEL STAT 02/25/2019 12:00 Abdominal pain, Results for this (NA, K, CL, CO2, AM CDT unspecified procedure are in GLUCOSE, BUN, abdominal location the results CREATININE, CA) section. HEPATIC FUNCTION STAT 02/25/2019 12:00 Abdominal pain, Results for this PANEL (82550) AM CDT unspecified procedure are in (ALB,T.PRO,BILI abdominal location the results T,BU/BC,ALT,AST,ALK section. PHOS) LIPASE STAT 02/25/2019 12:00 Abdominal pain, Results for this AM CDT unspecified procedure are in abdominal location the results section. documented in this encounter Results CBC WITH DIFFERENTIAL (02/25/2019 12:00 AM CDT) WBC 3.67 (L) 4.20 - 10.70 [facility] 10*3/L [facility] RBC 3.50 (L) 4.26 - 5.52 [facility] 10*6/L [facility] HGB 11.5 (L) 12.2 - 16.4 [facility] g/dL [facility] HCT 35.1 (L) 38.4 - 49.3 % [facility] MCV 100.3 (H) 81.7 - 95.6 fL [facility] MCH 32.9 (H) 26.1 - 32.7 pg [facility] MCHC 32.8 31.2 - 35.0 [facility] g/dL [facility] RDW-SD 57.7 (H) 38.5 - 51.6 fL [facility] RDW-CV 15.7 (H) 12.1 - 15.4 % [facility] PLT 132 (L) 150 - 328 [facility] 10*3/L [facility] MPV 11.4 9.8 - 13.0 fL [facility] NRBC/100 WBC 0.0 0.0 - 10.0 /100 [facility] WBCs [facility] NRBC x10^3 <0.01 10*3/L [facility] GRAN MAT (NEUT) % 67.3 % [facility] IMM GRAN % 0.30 % [facility] LYMPH % 15.0 % [facility] MONO % 13.1 % [facility] EOS % 3.8 % [facility] BASO % 0.5 % [facility] GRAN MAT x10^3(ANC) 2.47 1.99 - 6.95 [facility] 10*3/uL [facility] IMM GRAN x10^3 <0.03 0.00 - 0.06 [facility] 10*3/uL [facility] LYMPH x10^3 0.55 (L) 1.09 - 3.23 [facility] 10*3/uL [facility] MONO x10^3 0.48 0.36 - 1.02 [facility] 10*3/uL [facility] EOS x10^3 0.14 0.06 - 0.53 [facility] 10*3/uL [facility] BASO x10^3 <0.03 0.01 - 0.09 [facility] 10*3/uL [facility] Specimen Blood - VENOUS Performing Organization Address [facility] Phone Number [facility] CLIA: [id number], [address] [place], [place] [address] LAB[address] HEPATIC FUNCTION PANEL ([id number]) (ALB,T.PRO,BILI T,BU/BC,ALT,AST,ALK PHOS) (2018 12:00 AM CDT) TOTAL BILI 0.6 0.1 - 1.1 mg/dL [facility] BILI UNCON 0.1 0.1 - 1.1 mg/dL [facility] BILI CONJ 0.0 0.0 - 0.3 mg/dL [facility] T PROTEIN 7.4 6.3 - 8.2 g/dL [facility] ALBUMIN 4.2 3.5 - 5.0 g/dL [facility] ALK PHOS 125 (H) 34 - 122 U/L [facility] ALT(SGPT) 21 9 - 51 U/L [facility] AST(SGOT) 27 13 - 40 U/L [facility] Specimen Blood - VENOUS Performing Organization Address [facility] Phone Number [facility] CLIA: [id number], [address] [place] [address] LIPASE (02/25/2019 12:00 AM CDT) LIPASE 38 0 - 220 U/L [facility] Specimen Blood - VENOUS Performing Organization Address City/[facility] Phone Number [facility] CLIA: [id number], [address] [place] [address] BASIC METABOLIC PANEL (NA, K, CL, CO2, GLUCOSE, BUN, CREATININE, CA) (2018 12:00 AM CDT) NA 141 135 - 145 [facility] mmol/L [facility] K 5.0 3.5 - 5.0 [facility] mmol/L [facility] CL 104 98 - 108 mmol/L [facility] CO2 TOTAL 19 (L) 23 - 31 mmol/L [facility] AGAP 18 (H) 2 - 16 [facility] BUN 51 (H) 7 - 23 mg/dL [facility] GLUCOSE 106 70 - 110 mg/dL [facility] CREATININE 5.74 (H) 0.60 - 1.25 [facility] mg/dL [facility] CALCIUM 8.8 8.6 - 10.6 [facility] mg/dL [facility] eGFR Calculation 9.6 mL/min/1.73m2 [facility] ([facility] LABORATORY Russian) eGFR Calculation 11.7 mL/min/1.73m2 [facility] () [facility] Specimen Blood - VENOUS Narrative Performed At Association of Glomerular Filtration Rate (GFR) [facility] and Staging of Kidney Disease* [...] tests). Performing Organization Address City/State/Zipcode Phone Number [facility] CLIA: [id number], [address] [place] [address] documented in this encounter Visit Diagnoses Diagnosis Abdominal pain, unspecified abdominal location - Primary Chronic abdominal pain Abdominal pain, unspecified site documented in this encounter Administered Medications Medication Order MAR Action Action Date Dose Rate Site HYDROcodone-acetaminophen Given 02/25/2019 1:53 AM CDT 1 tablet (NORCO) 10-325 mg tablet 1 tablet 1 tablet, Oral, ONCE NOW, 1 dose, Thu02/25/19 at 0245, Routine morpHINE injection 4 mg Given 02/25/2019 12:18 AM CDT 4 mg 4 mg, Slow IV Push, ONCE, 1 dose, Thu02/25/19 at 0115, STAT morpHINE injection 4 mg Given 02/25/2019 1:08 AM CDT 4 mg 4 mg, Slow IV Push, ONCE, 1 dose, Thu02/25/19 at 0215, STAT ondansetron (ZOFRAN (PF)) injection 4 mg Given 02/25/2019 12:18 AM CDT 4 mg 4 mg, Slow IV Push, ONCE, 1 dose, Thu02/25/19 at 0115, MALCOLM documented in this encounter Insurance Payer Benefit Plan / Subscriber ID Effective Dates Phone Address Type Group MEDICARE MEDICARE PART xxxxxxxxxxx 2004-Prese [phone] 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
--- OUTSIDE RECORDS SUMMARY | 2019-02-27 17:06 | XMS REPORT | Summary of Care ---
:1940 Author Organization [facility] - [facility] Address [address] [place] [address] Care Team Providers Name Role Phone Amaya Chadwick Service/Team Unavailable Martín Tyler DO Primary Care Provider Dash Jacobson DO Measurement Psychologist Reason for Visit Reason Comments Abdominal Pain Auth/Cert Status Reason Specialty Diagnoses / Referred By Referred To Procedures Contact Contact Emergency Medicine Diagnoses ABDOMINAL PAIN [facility] Emergency Dept [address] [place] [address] [place] [address] Encounter Details Date Type Department Care Team Description 02/26/2019 - Emergency ADC-Emergency Buddy Daley III, PA [address] [place] [address] [place] [address] Generalized abdominal 02/27/2019 Department Keven Zhu MD [address] [facility] [id number] [place] [address] pain (Primary Dx) [address] [place] [address] [place] [address] Allergies Active Allergy Reactions Severity Noted Date Comments Aspirin Unknown - See comments 02/07/2019 documented as of this encounter (statuses as of 02/27/2019) Medications Medication Sig Dispensed Refills Start Date [...] disease daily. involving coronary bypass graft of [place] heart without angina pectoris, Pure hypercholesterolemia atorvastatin [...] as of this encounter (statuses as of 02/27/2019) Active Problems Problem Noted Date Acute on chronic combined systolic and diastolic congestive heart failure 11/2018 PAD (peripheral artery disease) 02/14/2019 Hyperkalemia 02/07/2019 Abdominal pain 01/21/2019 Generalized abdominal pain 01/07/2019 Nonrheumatic aortic valve stenosis 01/06/2019 Pulmonary hypertension 01/06/2019 Bilateral carotid artery disease 01/06/2019 (HFpEF) heart failure with preserved ejection fraction 01/06/2019 Cholecystitis 01/05/2019 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 Overview: Added automatically from request for surgery [id number] Colitis 10/12/2018 E44.0 Moderate protein calorie malnutrition 08/25/2018 Anasarca 08/20/2018 ESRD (end stage renal disease) 08/20/2018 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, macular edema presence unspecified Coronary artery disease involving coronary bypass graft of [place] heart 2016 without angina pectoris Wound, surgical, [...] 01/01/2006 Dermatophytosis 01/01/2006 Overview: ICD10 Diagnosis Term Commission Agent Livestock Utility documented as of this encounter (statuses as of 02/27/2019) Resolved Problems Problem Noted Date Resolved Date [...] retinopathy 12/11/2006 07/09/2013 Overview: ICD10 Diagnosis Term Commission Agent Livestock Utility Type II or unspecified type diabetes mellitus without mention 01/01/2006 of complication, not stated as uncontrolled documented as of this encounter (statuses as of 02/27/2019) Immunizations Name Administration Dates Next Due Influenza [...] Sign Reading Time Taken Comments Blood Pressure 180/64 02/27/2019 12:00 AM CDT Pulse 48 02/27/2019 12:00 AM CDT Temperature 36.8 C (98.3 F) 02/26/2019 9:42 PM CDT Respiratory Rate 16 02/27/2019 12:00 AM CDT Oxygen Saturation 95% 02/27/2019 12:00 AM CDT Inhaled Oxygen Concentration - - Weight 56.7 kg (125 lb) 02/26/2019 9:42 PM CDT Height - - Body Mass Index 20.8 02/13/2019 9:46 PM CDT documented in this encounter Discharge Instructions Keven Hennessy MD - 02/26/2019 DIAGNOSIS Diagnoses that have been ruled out: None Diagnoses that are still under consideration: None Final diagnoses: Generalized abdominal pain NO LIFE-THREATENING FINDINGS ON TODAY'S EXAM. PROCEDURES IN THE ER TODAY: No orders of the defined types were placed in this encounter. MEDICATIONS ADMINISTERED IN THE ER TODAY AND DISCHARGE MEDICATIONS: Orders Placed This Encounter Medications DISCONTD: morpHINE injection 4 mg DISCONTD: ondansetron (ZOFRAN (PF)) injection 4 mg DISCONTD: NaCl 0.9% (NS) bolus infusion 500 mL FENTanyl PF (SUBLIMAZE (PF)) injection 50 mcg FOLLOW-UP RECOMMENDATIONS: RECOMMEND FOLLOW-UP WITH DR TYLER CONTINUE ALL YOUR USUAL HOME MEDICATIONS KEEP YOUR DIALYSIS SCHEDULED RETURN TO ER FOR WORSENING OF SYMPTOMS documented in this encounter Plan of Treatment Date Type Specialty Care Team Description 03/02/2019 Office Visit Gastroenterology Mary Hernandez, ACNP [address] [facility] [address] [place] [id number] [phone] 04/22/2019 Office Visit Internal Medicine Martín Tyler, DO [address] [facility] [id number] [place] [address] [phone] Health Maintenance Due Date Last Done Comments [...] of this encounter Implants Implanted Type Area Civil Estimator Device Shelf Model / Serial Identifier Expiration / Lot Date Lens, Faustino #Sn60wf 24.0d - [id number] LENS Left: Eye Faustino 11/09/2016 SN60WF 24.0D / Implanted: Qty: 1 on 02/08/2013 by Matthew Serna MD at [facility] / [id number] Log [id number] - Tray, Faustino Lens (Virtual) - 1 - Lens, Faustino #[id number] 24.0d LENS Right: Faustino 01/06/2018 SN60WF 24.0D / Implanted: Qty: 1 on 03/08/2013 at [facility] Eye [id number] / documented as of this encounter Procedures Procedure Name Priority Date/Time Associated Diagnosis Comments NOTICE OF PRIVACY Routine 02/26/2019 9:31 PM CDT PRACTICES CONSENT/REFUSAL FOR Routine 02/26/2019 9:31 PM CDT DIAGNOSIS AND TREATMENT documented in this encounter Results Not on filedocumented in this encounter Visit Diagnoses Diagnosis Generalized abdominal pain - Primary Abdominal pain, generalized documented in this encounter Administered Medications Medication Order MAR Action Action Date Dose Rate Site FENTanyl PF (SUBLIMAZE Given 02/26/2019 10:53 PM 50 mcg Right Deltoid-IM (PF)) injection 50 mcg CDT 50 mcg, Intramuscular, ONCE, 1 dose, 02/26/19 at 2345, STAT documented in this encounter Insurance Payer Benefit Plan / Subscriber ID Effective Dates Phone Address Type Group MEDICARE MEDICARE PART xxxxxxxxxxx 2004-Prese [phone] 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
[2019-02-27 17:44] LABS: Absolute Lymphocytes (CBC) 0.4 K/uL (0.7-4.9); Basophils % 1.1 % (0-1.3); Hematocrit 34.4 % (39.6-49.0); Lymphocytes % 15.4 % (15.3-44.8); MPV 9.1 fL (7.6-11.3); RBC Red Blood Cell Count 3.47 M/uL (4.33-5.43)
[2019-02-27 18:14] LABS: Potassium 5.6 mmol/L (3.5-5.1)
--- NOTE | 2019-02-27 18:39 | EDPHYS ---
Physician Documentation [facility] Name: Blaise Mercedes Age: 78 yrs Sex: Male : 1940 Arrival Date: 02/27/2019 Time: 17:03 Bed 5 Private MD: ED Physician Uriel Santos HPI: 02/27 18:21 This 78 yrs old Male presents to ER via EMS with complaints of Abdominal Pain. gs 18:21 Onset: The symptoms/episode began/occurred 2 day(s) ago. Associated signs and symptoms: gs Pertinent negatives: chest pain, diarrhea, vomiting. The symptoms are described as crampy. Severity of pain: At its worst the pain was severe in the emergency department the pain is unchanged. The patient has experienced similar episodes in the past, chronically. The patient has been recently seen by a physician: CORY DONG FOR SAME, The patient has been recently been admitted at [facility], was discharged last week. Historical: - Allergies: 17:06 Aspirin; tw2 17:06 Aspirin; hb - Home Meds: 17:06 amlodipine 10 mg tab 1 tab once daily [Active]; atorvastatin 40 mg Oral tab [Active]; tw2 carvedilol 12.5 mg Oral tab [Active]; clonazepam 1 mg Oral tab 1 tab 2 times per day [Active]; clonazepam 1 mg Oral tab [Active]; furosemide 80 mg Oral tab [Active]; hydralazine 50 mg Oral tab [Active]; nitroglycerin 0.4 mg SL subl 1 tab [Active]; Plavix 75 mg Oral tab 1 tab once daily [Active]; Risperdal 0.5 mg Oral tab 1 tabs 2 times per day [Active]; trazodone 100 mg Oral tab 1 tab nightly [Active]; 17:06 amlodipine 10 mg tab 1 tab once daily [Active]; atorvastatin 40 mg Oral tab [Active]; hb carvedilol 12.5 mg Oral tab [Active]; clonazepam 1 mg Oral tab 1 tab 2 times per day [Active]; clonazepam 1 mg Oral tab [Active]; furosemide 80 mg Oral tab [Active]; hydralazine 50 mg Oral tab [Active]; nitroglycerin 0.4 mg SL subl 1 tab [Active]; Plavix 75 mg Oral tab 1 tab once daily [Active]; Risperdal 0.5 mg Oral tab 1 tabs 2 times per day [Active]; trazodone 100 mg Oral tab 1 tab nightly [Active]; - PMHx: 17:06 CAD; cardiomegaly; CHF; chronic renal disease; Cirrhosis; Diabetes - NIDDM; Dialysis; tw2 High Cholesterol; Hypertension; Myocardial infarction; pleural effusion; Anemia; pulmonary nodule; Visually impared; 17:06 cardiomegaly; Diabetes - NIDDM; Cirrhosis; chronic renal disease; Dialysis; CHF; CAD; hb High Cholesterol; Anemia; Hypertension; Myocardial infarction; pleural effusion; pulmonary nodule; - Immunization history:: Adult Immunizations. - Social history:: Smoking status: . - Ebola Screening: : Patient denies travel to an Ebola-affected area in the 21 days before illness onset. ROS: 18:21 All other systems are negative. gs Exam: 18:21 Head/Face: Normocephalic, atraumatic. Eyes: Pupils equal round and reactive to light, gs extra-ocular motions intact. Lids and lashes normal. Conjunctiva and sclera are non-icteric and not injected. Cornea within normal limits. Periorbital areas with no swelling, redness, or edema. ENT: Nares patent. No nasal discharge, no septal abnormalities noted. Tympanic membranes are normal and external auditory canals are clear. Oropharynx with no redness, swelling, or masses, exudates, or evidence of obstruction, uvula midline. Mucous membranes moist. Neck: Trachea midline, no thyromegaly or masses palpated, and no cervical lymphadenopathy. Supple, full range of motion without nuchal rigidity, or vertebral point tenderness. No Meningismus. Chest/axilla: Normal chest wall appearance and motion. Nontender with no deformity. No lesions are appreciated. Cardiovascular: Regular rate and rhythm with a normal S1 and S2. No gallops, murmurs, or rubs. Normal PMI, no JVD. No pulse deficits. Respiratory: Lungs have equal breath sounds bilaterally, clear to auscultation and percussion. No rales, rhonchi or wheezes noted. No increased work of breathing, no retractions or nasal flaring. Abdomen/GI: Soft, non-tender, with normal bowel sounds. No distension or tympany. No guarding or rebound. No evidence of tenderness throughout. Back: No spinal tenderness. No costovertebral tenderness. Full range of motion. Skin: Warm, dry with normal turgor. Normal color with no rashes, no lesions, and no evidence of cellulitis. MS/ Extremity: Pulses equal, no cyanosis. Neurovascular intact. Full, normal range of motion. Neuro: Awake and alert, GCS 15, oriented to person, place, time, and situation. Cranial nerves II-XII grossly intact. Motor strength 5/5 in all extremities. Sensory grossly intact. Cerebellar exam normal. Normal gait. 18:21 Constitutional: The patient appears alert, awake. 18:29 Abdomen/GI: I DON'T ELICIT ANY TENDERNESS CONSISTENT WITH SURGICAL ABDOMINAL EXAM. Vital Signs: 17:07 BP 155 / 69; Pulse 45; Resp 19; Temp 98.1; Pulse Ox 94% on 3 lpm NC; Weight 72.57 kg; hb Height 5 ft. 6 in. (167.64 cm); Pain 10/10; 18:18 BP 149 / 59; Pulse 45; Resp 16; Pulse Ox 99% ; Pain 10/10; sv 19:10 BP 141 / 70; Pulse 50; Resp 17; Pulse Ox 99% on 3 lpm NC; rr5 17:07 Body Mass Index 25.82 (72.57 kg, 167.64 cm) hb MDM: 17:37 Patient medically screened. gs 18:21 Data reviewed: vital signs, nurses notes, old medical records, lab test result(s). Counseling: I had a detailed discussion with the patient and/or guardian regarding: the historical points, exam findings, and any diagnostic results supporting the discharge/admit diagnosis, the need for outpatient follow up. ED course: I HAVE SEEN MR MERCEDES BEFORE IN THE ED FOR SAME COMPLAINTS NO PHYSICAL BASIS FOR HIS ABDOMINAL PAIN. HAVE REFERRED HIM TO PAIN MANAGEMENT AND GI, HAS YET TO SEE THESE SPECIALISTS. I HAVE TOLD HIM AND HIS FAMILY I AM NOT INCLINED TO GIVE HIM NARCOTIC PAIN MEDICATION WITHOUT PHYSICAL BASIS OF DISEASE EVEN THOUGH OTHER PROVIDERS HAVE DONE SO I BELIEVE THIS IS NONTHERAPEUTIC PRESCRIBING.. 02/27 17:27 Order name: CBC with Diff; Complete Time: 18:49 02/27 17:27 Order name: Basic Metabolic Panel; Complete Time: 18:36 02/27 17:27 Order name: Lipase; Complete Time: 18:36 02/27 17:46 Order name: CBC Smear Scan; Complete Time: 18:49 EDVT 02/27 17:51 Order name: EKG - Nurse/Tech; Complete Time: 18:13 Administered Medications: 19:23 Drug: Tylenol 650 mg Route: PO; rr5 19:25 Follow up: Response: Medication administered at discharge. rr5 Disposition: 02/27/19 18:37 Discharged to Home. Impression: Chronic pain syndrome - ABDOMINAL. - Condition is Stable. - Discharge Instructions: Chronic Pain. - Medication Reconciliation Form, Thank You Letter, Antibiotic Education, Prescription Opioid Use form. - Follow up: Austin Snow DO; When: 2 - 3 days; Reason: Re-evaluation by your physician. Follow up: Mark Segovia MD; When: 2 - 3 days; Reason: Re-evaluation by your physician. Signatures: Dispatcher [employer] EDVT Mady Yo RN RN Sonia Gardner RN RN tw2 Uriel Santos MD MD Sergio Lora RN RN rr5 Corrections: (The following items were deleted from the chart) 19:25 18:37 02/27/2019 18:37 Discharged to Home. Impression: Chronic pain syndrome - rr5 ABDOMINAL. Condition is Stable. Forms are Medication Reconciliation Form, Thank You Letter, Antibiotic Education, Prescription Opioid Use. Follow up: Austin Snow; When: 2 - 3 days; Reason: Re-evaluation by your physician. Follow up: Mark Segovia; When: 2 - 3 days; Reason: Re-evaluation by your physician. gs
--- NOTE | 2019-02-27 18:39 | ER ---
Nurse's Notes [facility] Name: Blaise Quarles Age: 78 yrs Sex: Male : 1940 Arrival Date: 02/27/2019 Time: 17:03 Bed 5 Private MD: Diagnosis: Chronic pain syndrome-ABDOMINAL Presentation: 02/27 17:04 Presenting complaint: EMS states: Abdominal pain x 2 days. Transition of care: patient hb was not received from another setting of care. Onset of symptoms was February 26, 2019. Risk Assessment: Do you want to hurt yourself or someone else? Patient reports no desire to harm self or others. Care prior to arrival: None. 17:04 Method Of Arrival: EMS: [facility] hb 17:04 Acuity: SARATH 2 hb 17:10 Initial Sepsis Screen: Does the patient meet any 2 criteria? No. Patient's initial hb sepsis screen is negative. Does the patient have a suspected source of infection? No. Patient's initial sepsis screen is negative. Triage Assessment: 17:15 General: Appears in no apparent distress. uncomfortable, Behavior is cooperative, hb anxious, restless. Pain: Pain currently is 10 out of 10 on a pain scale. EENT: No signs and/or symptoms were reported regarding the EENT system. Neuro: Level of Consciousness is awake, alert, obeys commands, Oriented to person, place, time, situation. Cardiovascular: Heart tones S1 S2 present Capillary refill < 3 seconds Patient's skin is warm and dry. Respiratory: Airway is patent Respiratory effort is even, unlabored, Respiratory pattern is regular, symmetrical, Breath sounds are clear bilaterally. GI: Abdomen is non-distended, Bowel sounds present X 4 quads. Abd is soft and non tender X 4 quads. Reports lower abdominal pain, upper abdominal pain. : No signs and/or symptoms were reported regarding the genitourinary system. Derm: Skin is pink, warm \T\ dry. Musculoskeletal: No signs and/or symptoms reported regarding the musculoskeletal system. Historical: - Allergies: 17:06 Aspirin; tw2 17:06 Aspirin; hb - Home Meds: 17:06 amlodipine 10 mg tab 1 tab once daily [Active]; atorvastatin 40 mg Oral tab [Active]; tw2 carvedilol 12.5 mg Oral tab [Active]; clonazepam 1 mg Oral tab 1 tab 2 times per day [Active]; clonazepam 1 mg Oral tab [Active]; furosemide 80 mg Oral tab [Active]; hydralazine 50 mg Oral tab [Active]; nitroglycerin 0.4 mg SL subl 1 tab [Active]; Plavix 75 mg Oral tab 1 tab once daily [Active]; Risperdal 0.5 mg Oral tab 1 tabs 2 times per day [Active]; trazodone 100 mg Oral tab 1 tab nightly [Active]; 17:06 amlodipine 10 mg tab 1 tab once daily [Active]; atorvastatin 40 mg Oral tab [Active]; hb carvedilol 12.5 mg Oral tab [Active]; clonazepam 1 mg Oral tab 1 tab 2 times per day [Active]; clonazepam 1 mg Oral tab [Active]; furosemide 80 mg Oral tab [Active]; hydralazine 50 mg Oral tab [Active]; nitroglycerin 0.4 mg SL subl 1 tab [Active]; Plavix 75 mg Oral tab 1 tab once daily [Active]; Risperdal 0.5 mg Oral tab 1 tabs 2 times per day [Active]; trazodone 100 mg Oral tab 1 tab nightly [Active]; - PMHx: 17:06 CAD; cardiomegaly; CHF; chronic renal disease; Cirrhosis; Diabetes - NIDDM; Dialysis; tw2 High Cholesterol; Hypertension; Myocardial infarction; pleural effusion; Anemia; pulmonary nodule; Visually impared; 17:06 cardiomegaly; Diabetes - NIDDM; Cirrhosis; chronic renal disease; Dialysis; CHF; CAD; hb High Cholesterol; Anemia; Hypertension; Myocardial infarction; pleural effusion; pulmonary nodule; - Immunization history:: Adult Immunizations. - Social history:: Smoking status: . - Ebola Screening: : Patient denies travel to an Ebola-affected area in the 21 days before illness onset. Screenin:04 Abuse screen: Denies threats or abuse. Nutritional screening: No deficits noted. tw2 Tuberculosis screening: No symptoms or risk factors identified. Fall Risk Secondary diagnosis (15 points) impaired mobility. Assessment: 17:20 General: see triage assessment. hb 17:40 Reassessment: No changes from previously documented assessment. Patient and/or family hb updated on plan of care and expected duration. Pain level reassessed. 17:55 Reassessment: Pt requesting pain medication, Dr. Santos notified, no new orders at this hb time. 18:15 Reassessment: Pt requesting pain medication, informed Dr Santos. No orders given at this sv time. 18:24 Reassessment: Pt requesting pain medication, Dr. Santos notified, no new orders at this hb time. 19:23 Reassessment: Patient appears in no apparent distress at this time. Patient is alert, rr5 oriented x 3, equal unlabored respirations, skin warm/dry/pink. discharge instruction given and explained to driver sales without complaints made, verbalized understanding. Vital Signs: 17:07 BP 155 / 69; Pulse 45; Resp 19; Temp 98.1; Pulse Ox 94% on 3 lpm NC; Weight 72.57 kg; hb Height 5 ft. 6 in. (167.64 cm); Pain 10/10; 18:18 BP 149 / 59; Pulse 45; Resp 16; Pulse Ox 99% ; Pain 10/10; sv 19:10 BP 141 / 70; Pulse 50; Resp 17; Pulse Ox 99% on 3 lpm NC; rr5 17:07 Body Mass Index 25.82 (72.57 kg, 167.64 cm) hb ED Course: 17:03 Patient arrived in ED. tw2 17:04 Arm band placed on. tw2 17:04 Bed in low position. Call light in reach. Side rails up X2. desk monitor on. Pulse tw2 ox on. NIBP on. 17:05 Triage completed. hb 17:16 Uriel Santos MD is Attending Physician. gs 17:40 Initial lab(s) drawn, by mo, sent to lab. Inserted saline lock: 22 gauge in right jb1 antecubital area, using aseptic technique. Blood collected. 18:36 Austin Snow DO is Referral Physician. gs 18:37 Mark Segovia MD is Referral Physician. gs 19:24 No provider procedures requiring assistance completed. IV discontinued, intact, rr5 bleeding controlled, No redness/swelling at site. Pressure dressing applied. Administered Medications: 19:23 Drug: Tylenol 650 mg Route: PO; rr5 19:25 Follow up: Response: Medication administered at discharge. rr5 Outcome: 18:37 Discharge ordered by . gs 19:24 Discharged to home via wheelchair, with family. rr5 19:24 Condition: stable 19:24 Discharge instructions given to family, Instructed on discharge instructions, follow up and referral plans. Demonstrated understanding of instructions, follow-up care. 19:25 Patient left the ED. rr5 Signatures: Franklyn Beasley Stephanie, RN RN Mady Castellon RN RN Sonia Gardner RN RN tw2 Uriel Santos MD MD Sergio Lora RN RN rr5
[2019-02-27 18:46] LABS: Blood Morphology Comment NOT SEEN (NOT SEEN); Platelet Estimate DECR; Urine White Blood Cell Casts OK
[2019-02-27] MEDS ORDERED: ACETAMINOPHEN 325 MG TABLET ONE (18:57)
[2019-02-27 20:13] VITALS: TEMP 98.1
[2019-02-27 20:14] VITALS: O2SAT 99
[2019-02-27 20:16] VITALS: BP 141/70
--- NOTE | 2019-02-28 10:00 | EKG ---
Test Date: 2019-02-27 Test Time: 17:57:33 Nib Finisher: JAMES MEASUREMENT RESULTS: Intervals: Rate: 44 NJ: 202 QRSD: 100 QT: 488 QTc: 417 Peck: P: 37 NJ: 202 QRS: -41 T: 106 INTERPRETIVE STATEMENTS: Marked sinus bradycardia Possible Left atrial enlargement Left axis deviation Septal infarct, age undetermined Inferior infarct, age undetermined T wave abnormality, consider lateral ischemia Abnormal ECG Compared to ECG 02/22/2019 18:24:32 First degree AV block no longer present Myocardial infarct finding still present Electronically Signed On 02-28-19 09:59:45 CDT by Raheel Zeng
== END 2019-02-27 19:25 | disposition home or self-care (01) ==
LOC: ER 16:58
DX: G89.29 Other chronic pain (principal); E11.22 Type 2 diabetes mellitus with diabetic chronic kidney disease; I13.2 Hypertensive heart and chronic kidney disease with heart failure and with stage 5 chronic kidney disease, or end stage renal disease; N18.6 End stage renal disease; I50.9 Heart failure, unspecified; I25.2 Old myocardial infarction; Z88.6 Allergy status to analgesic agent; Z99.2 Dependence on renal dialysis
CPT/HCPCS: 36415; 80048; 83690; 85025; 93005

== ENCOUNTER 2019-03-23 21:56 | Emergency (ER) | payer OTHER ==
--- OUTSIDE RECORDS SUMMARY | 2019-03-23 21:58 | XMS REPORT | Clinical Summary ---
:1940 Author Organization [facility] Address [address] [place] [address] Care Team Providers Name Role Phone Moo Primary Care Provider Allergies No Known Allergies Medications Medication Sig Dispensed Refills Start Date End Date Status pantoprazole Take 40 mg by mouth 0 Active (PROTONIX) 40 MG 2 (two) times daily. tablet bimatoprost Place 1 drop into 0 Active (LUMIGAN) 0.01 % both eyes nightly. Drop ophthalmic solution ergocalciferol Take 50,000 Units by 0 Active (VITAMIN D2) 50,000 mouth once a week. unit capsule folic Take 1 tablet by 0 Active acid-multivitamins mouth daily. (B COMPLEX-VITAMIN C-FOLIC ACID) 0.8 mg Tab tablet insulin detemir Inject 10 Units 0 Active (LEVEMIR) 100 subcutaneously unit/mL (3 mL) InPn nightly. injection nitroglycerin Place 0.4 mg under 0 Active (NITROSTAT) 0.4 MG the tongue every 5 SL tablet (five) minutes as needed for Chest pain Put 1 pill under tongue every 5min as needed for chest pain.No more than 3 doses in 15min.Call 911 if pain is unrelieved 5min after 1st dose . lactulose Take 20 g by mouth 3 0 Active (CHRONULAC) 10 (three) times daily. gram/15 mL (15 mL) solution amiodarone Take 1 tablet (200 0 07/22/2016 Active (PACERONE) 200 MG mg total) by mouth tablet daily. latanoprost 1 drop nightly. 0 Active (XALATAN) 0.005 % ophthalmic solution glipiZIDE (GLUCOTROL Take 10 mg by mouth 0 Active XL) 10 MG 24 hr 2 (two) times daily tablet . amLODIPine (NORVASC) Take 10 mg by mouth 0 02/15/2018 Active 10 MG tablet daily. aspirin 81 MG Take 81 mg by mouth 0 02/20/2017 Active chewable tablet daily. atorvastatin Take 10 mg by mouth 0 02/15/2018 Active (LIPITOR) 10 MG daily. tablet docusate sodium Take 100 mg by mouth 0 10/02/2017 Active (COLACE) 100 MG daily. capsule enalapril (VASOTEC) Take 10 mg by mouth 0 10/02/2017 Active 10 MG tablet daily. furosemide (LASIX) Take 40 mg by mouth 0 02/04/2018 Active 40 MG tablet daily. metoprolol Take 50 mg by mouth 0 Active (LOPRESSOR) 50 MG 2 (two) times daily. tablet ondansetron (ZOFRAN) Take 4 mg by mouth 0 01/29/2018 Active 4 MG tablet as needed. traMADol-acetaminoph Take 1 tablet by 0 02/22/2018 Active en (ULTRACET) mouth every 8 37.5-325 mg per (eight) hours as tablet needed. bumetanide (BUMEX) Take 0.5 mg by mouth 0 Active 0.5 MG tablet 2 (two) times daily. tamsulosin (FLOMAX) Take 1 capsule (0.4 25 capsule 0 03/01/2018 Active 0.4 mg Cap 24 hr mg total) by mouth capsule daily. Active Problems Problem Noted Date Acute renal [...] infarction) 07/01/2016 CAD (coronary artery disease) 10/16/2015 Family History Medical History Relation Name Comments [...] travel history available. Last Filed Vital Signs Not on file Plan of Treatment Not on file Results Not on fileafter 03/22/2018 Insurance Payer Benefit Plan / Group Subscriber ID Type Phone Address MEDICARE MEDICARE A B xxxxxxxxxx Medicare MEDICAID MEDICAID OF [place] xxxxxxxxx Medicaid Advance Directives For more information, please contact:[address] [phone] Code Status Date Activated Date Inactivated Comments [...]
--- OUTSIDE RECORDS SUMMARY | 2019-03-23 21:59 | XMS REPORT ---
:1940 Author Organization [facility] Address [address] [place] [address] Dr. Manley [address] [place] [id number] Care Team Providers Name Role Phone LAZRODNEY [...] Comments CULTURE (BEAKER) (test PSEUDOMONAS 70-79,000 col/mL iubv=5362) AERUGINOSA Pseudomonas aeruginosa Amikacin (test code=1) Susceptible [...] code=25) Resistant <0 or >4 URINALYSIS W/ [id number] 12:06:00 Test Item Value Reference Range Comments COLOR (BEAKER) (test acip=588) Yellow CLARITY (BEAKER) (test viqv=866) Hazy SPECIFIC GRAVITY UA (BEAKER) (test qbxc=431) 1.012 1.001-1.035 PH UA (BEAKER) (test qwkk=124) 6.0 5.0-8.0 PROTEIN UA (BEAKER) (test lira=172) 600 mg/dL Negative GLUCOSE UA (BEAKER) (test viwp=764) 100 mg/dL Negative KETONES UA (BEAKER) (test algr=589) Negative Negative BILIRUBIN UA (BEAKER) (test vzva=948) Negative Negative BLOOD UA (BEAKER) (test cbex=979) Moderate Negative NITRITE UA (BEAKER) (test xlff=393) Negative Negative LEUKOCYTE ESTERASE UA (BEAKER) (test qasz=478) Small Negative UROBILINOGEN UA (BEAKER) (test jomk=511) 0.2 mg/dL 0.2-1.0 RBC UA (BEAKER) (test zger=765) 27 /HPF WBC UA (BEAKER) (test vupq=739) 12 /HPF BACTERIA (BEAKER) (test bfef=985) Occasional MUCUS (BEAKER) (test teak=2638) Rare SQUAMOUS EPITHELIAL (BEAKER) (test oolf=590) < /HPF HYALINE CASTS (BEAKER) (test peml=315) 2 /LPF GRANULAR CASTS (BEAKER) (test vjve=799) 5 /LPF SOURCE(BEAKER) (test zjud=7113) Urine, Yusuf CT, [id number] 15:15:00Reason for exam:->ABDOMINAL PAINWhat is the patient's [...] Date/ Time: 03/01/2018 15:15:27 Reading Location: [address] Body Reading Room BASIC METABOLIC [id number] 11:04:00 Test Item Value Reference Range Comments SODIUM (BEAKER) (test 136 meq/L 136-145 dqdw=895) POTASSIUM (BEAKER) (test 4.0 meq/L 3.5-5.1 tlrk=768) CHLORIDE (BEAKER) (test 108 meq/L 98-107 rrud=169) CO2 (BEAKER) (test 15 meq/L 22-29 avgm=924) BLOOD UREA NITROGEN 80 mg/dL 7-21 (BEAKER) (test mntf=489) CREATININE (BEAKER) (test 4.79 mg/dL 0.57-1.25 axug=888) GLUCOSE RANDOM (BEAKER) 84 mg/dL 70-105 (test pbru=611) CALCIUM (BEAKER) (test 8.9 mg/dL 8.4-10.2 nxrt=744) EGFR (BEAKER) (test 12 mL/min/1.73 sq m ESTIMATED GFR IS NOT kgbj=9673) ACCURATE CREATININE CLEARANCE IN PREDICTING GLOMERULAR FILTRATION RATE. ESTIMATED GFR IS NOT APPLICABLE FOR DIALYSIS PATIENTS. [id number] 11:02:00 Test Item Value Reference Range Comments LIPASE (BEAKER) (test jcoh=566) 61 U/L 8-78 [id number] 11:02:00 Test Item Value Reference Range Comments AMYLASE (BEAKER) (test voku=636) 113 U/L 25-125 HEPATIC FUNCTION [id number] 11:02:00 Test Item Value Reference Range Comments TOTAL PROTEIN (BEAKER) (test xwii=858) 6.8 gm/dL 6.0-8.3 ALBUMIN (BEAKER) (test tfsw=8865) 3.5 g/dL 3.5-5.0 BILIRUBIN TOTAL (BEAKER) (test ldbl=166) 0.4 mg/dL 0.2-1.2 BILIRUBIN DIRECT (BEAKER) (test pryd=694) 0.2 mg/dL 0.1-0.5 ALKALINE PHOSPHATASE (BEAKER) (test yqdh=715) 78 U/L 40-150 AST (SGOT) (BEAKER) (test bcrf=517) 20 U/L 5-34 ALT (SGPT) (BEAKER) (test uhle=364) 21 U/L 6-55 URINALYSIS W/ [id number] 11:01:00 Test Item Value Reference Range Comments COLOR (BEAKER) (test dxcp=059) Light Yellow CLARITY (BEAKER) (test hypo=387) Clear SPECIFIC GRAVITY UA (BEAKER) (test fppv=885) 1.006 1.001-1.035 PH UA (BEAKER) (test ykdv=363) 6.0 5.0-8.0 PROTEIN UA (BEAKER) (test kovk=030) 300 mg/dL Negative GLUCOSE UA (BEAKER) (test lkca=347) 30 mg/dL Negative KETONES UA (BEAKER) (test ycuk=631) Negative Negative BILIRUBIN UA (BEAKER) (test mxbm=707) Negative Negative BLOOD UA (BEAKER) (test twps=771) Trace Negative NITRITE UA (BEAKER) (test quci=833) Negative Negative LEUKOCYTE ESTERASE UA (BEAKER) (test yuwq=690) Negative Negative UROBILINOGEN UA (BEAKER) (test llss=467) 0.2 mg/dL 0.2-1.0 RBC UA (BEAKER) (test xsrn=573) < /HPF WBC UA (BEAKER) (test ohek=872) < /HPF BACTERIA (BEAKER) (test ulft=396) Rare MUCUS (BEAKER) (test ivvc=3165) Rare SOURCE(BEAKER) (test qjyr=0167) Urine, Voided CBC W/PLT COUNT & AUTO [id number] 10:49:00 Test Item Value Reference Range Comments WHITE BLOOD CELL COUNT (BEAKER) (test cpbc=488) 5.6 K/ L 3.5-10.5 RED BLOOD CELL COUNT (BEAKER) (test ojor=868) 3.10 M/ L 4.63-6.08 HEMOGLOBIN (BEAKER) (test kluz=070) 9.8 GM/DL 13.7-17.5 HEMATOCRIT (BEAKER) (test vmpf=465) 29.7 % 40.1-51.0 MEAN CORPUSCULAR VOLUME (BEAKER) (test cxyp=142) 95.8 fL 79.0-92.2 MEAN CORPUSCULAR HEMOGLOBIN (BEAKER) (test 31.6 pg 25.7-32.2 rxxh=589) MEAN CORPUSCULAR HEMOGLOBIN CONC (BEAKER) (test 33.0 GM/DL 32.3-36.5 zbgg=181) RED CELL DISTRIBUTION WIDTH (BEAKER) (test 14.0 % 11.6-14.4 ckwq=475) PLATELET COUNT (BEAKER) (test sxmm=715) 171 K/CU MM 150-450 MEAN PLATELET VOLUME (BEAKER) (test qlub=071) 11.1 fL 9.4-12.4 NUCLEATED RED BLOOD CELLS (BEAKER) (test 0 /100 WBC 0-0 cign=775) NEUTROPHILS RELATIVE PERCENT (BEAKER) (test 69 % ljmj=515) LYMPHOCYTES RELATIVE PERCENT (BEAKER) (test 16 % ojin=846) MONOCYTES RELATIVE PERCENT (BEAKER) (test 10 % iero=568) EOSINOPHILS RELATIVE PERCENT (BEAKER) (test 4 % vkyk=462) BASOPHILS RELATIVE PERCENT (BEAKER) (test 1 % tzhb=609) NEUTROPHILS ABSOLUTE COUNT (BEAKER) (test 3.88 K/ L 1.78-5.38 pygd=386) LYMPHOCYTES ABSOLUTE COUNT (BEAKER) (test 0.88 K/ L 1.32-3.57 foci=226) MONOCYTES ABSOLUTE COUNT (BEAKER) (test 0.56 K/ L 0.30-0.82 ehnb=504) EOSINOPHILS ABSOLUTE COUNT (BEAKER) (test 0.25 K/ L 0.04-0.54 djrs=858) BASOPHILS ABSOLUTE COUNT (BEAKER) (test 0.03 K/ L 0.01-0.08 qxow=344) IMMATURE GRANULOCYTES-RELATIVE PERCENT (BEAKER) 0 % 0-1 (test aqcy=6006)
--- OUTSIDE RECORDS SUMMARY | 2019-03-23 22:04 | XMS REPORT | Summary of Care ---
:1940 Author Organization [facility] - Health Address [address] [place] [address] Care Team Providers Name Role Phone Farrukh Team Service/Team Unavailable Martín Tyler DO Primary Care Provider Dash Jacobson DO Premises Technician Encounter Details Date Type Department Care Team Description 03/05/2019 Orders Only [facility] Doctor Unassigned, No [address] [facility] Name [address] [address] Allergies Active Allergy Reactions Severity Noted Date Comments Aspirin Unknown - See comments 02/07/2019 documented as of this encounter (statuses as of 03/05/2019) Medications Medication Sig Dispensed Refills Start Date [...] disease daily. involving coronary bypass graft of [place] heart without angina pectoris, Pure hypercholesterolemia atorvastatin [...] as of this encounter (statuses as of 03/05/2019) Active Problems Problem Noted Date Acute on chronic combined systolic and diastolic congestive heart failure 11/2018 PAD (peripheral artery disease) 02/14/2019 Hyperkalemia 02/07/2019 Abdominal pain 01/21/2019 Generalized abdominal pain 01/07/2019 Nonrheumatic aortic valve stenosis 01/06/2019 Pulmonary hypertension 01/06/2019 Bilateral carotid artery disease 01/06/2019 (HFpEF) heart failure with preserved ejection fraction 01/06/2019 Cholecystitis 01/05/2019 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 Overview: Added automatically from request for surgery [id number] Colitis 10/12/2018 E44.0 Moderate protein calorie malnutrition 08/25/2018 Anasarca 08/20/2018 ESRD (end stage renal disease) 08/20/2018 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, macular edema presence unspecified Coronary artery disease involving coronary bypass graft of k[place] heart 2016 without angina pectoris Wound, surgical, [...] 01/01/2006 Dermatophytosis 01/01/2006 Overview: ICD10 Diagnosis Term Fbi Field Agent Utility documented as of this encounter (statuses as of 03/05/2019) Resolved Problems Problem Noted Date Resolved Date [...] retinopathy 12/11/2006 07/09/2013 Overview: ICD10 Diagnosis Term Fbi Field Agent Utility Type II or unspecified type diabetes mellitus without mention 01/01/2006 of complication, not stated as uncontrolled documented as of this encounter (statuses as of 03/05/2019) Immunizations Name Administration Dates Next Due Influenza [...] Description 04/22/2019 Office Visit Internal Medicine Martín Tyler, DO [address] [facility] [id number] [place], [place] [id number] Health Maintenance Due Date Last Done Comments [...] of this encounter Implants Implanted Type Area Canvas Goods Maker Device Shelf Model / Serial Identifier Expiration / Lot Date Lens, Faustino #Sn60wf 24.0d - [id number] LENS Left: Eye Faustino 11/09/2016 SN60WF 24.0D / Implanted: Qty: 1 on 02/08/2013 by Matthew Serna MD at [facility] / [id number] - Tray, Faustino Lens (Virtual) - 1 - Lens, Faustino #Sn60wf 24.0d LENS Right: Faustino 01/06/2018 SN60WF 24.0D / Implanted: Qty: 1 on 03/08/2013 at [facility] Eye [id number] / documented as of this encounter Procedures Procedure Name Priority Date/Time Associated Diagnosis Comments NOTICE OF PRIVACY Routine 03/05/2019 4:04 PM CDT PRACTICES CONSENT/REFUSAL FOR Routine 03/05/2019 4:04 PM CDT DIAGNOSIS AND TREATMENT documented in this encounter Results Not on filedocumented in this encounter Insurance Payer Benefit Plan / Subscriber ID Effective Dates Phone Address Type Group MEDICARE MEDICARE PART xxxxxxxxxxx 2004-Preskaran [phone] 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
--- OUTSIDE RECORDS SUMMARY | 2019-03-23 22:05 | XMS REPORT | Summary of Care ---
:1940 Author Organization [facility] - [facility] Address [address] [place] [address] Care Team Providers Name Role Phone Farrukh Team Service/Team Unavailable Martín Tyler DO Primary Care Provider Dash Jacobson DO Mail Technician Reason for Visit Reason Comments Forms GI Clearance Appointment Due for Annual Follow up Encounter Details Date Type Department Care Team Description 03/17/2019 Telephone [facility] Lisa Spangler MD Forms (GI Clearance); Cardiology- [address] Appointment (Due for [address] [place] [address] Drive, DRIVE Annual Follow up ) [address] [place] [phone] Allergies Active Allergy Reactions Severity Noted Date Comments Aspirin Unknown - See comments 02/07/2019 documented as of this encounter (statuses as of 03/17/2019) Medications Medication Sig Dispensed Refills Start Date [...] disease daily. involving coronary bypass graft of [place] heart without angina pectoris, Pure hypercholesterolemia furosemide 80 mg Take 1 tablet 30 tablet 0 02/15/2019 Active tabletIndications: by mouth daily 9 Abdominal pain in male for 30 days. hydrALAZINE 50 mg Take 1 tablet 180 tablet 1 02/17/2019 Active tabletIndications: by mouth 2 Abdominal pain in male (two) times daily. nitroglycerin 0.[address] 1 tablet 5 tablet 0 03/05/2019 Active sublingual under the tabletIndications: tongue as Abdominal pain, needed (after unspecified abdominal meals). location, Elevated troponin documented as of this encounter (statuses as of 03/17/2019) Active Problems Problem Noted Date Acute on chronic combined systolic and diastolic congestive heart failure 11/2018 PAD (peripheral artery disease) 02/14/2019 Hyperkalemia 02/07/2019 Abdominal pain 01/21/2019 Generalized abdominal pain 01/07/2019 Nonrheumatic aortic valve stenosis 01/06/2019 Pulmonary hypertension 01/06/2019 Bilateral carotid artery disease 01/06/2019 (HFpEF) heart failure with preserved ejection fraction 01/06/2019 Cholecystitis 01/05/2019 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 Overview: Added automatically from request for surgery [id number] Colitis 10/12/2018 E44.0 Moderate protein calorie malnutrition 08/25/2018 Anasarca 08/20/2018 ESRD (end stage renal disease) 08/20/2018 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, macular edema presence unspecified Coronary artery disease involving coronary bypass graft of [place] heart 2016 without angina pectoris Wound, surgical, [...] 01/01/2006 Dermatophytosis 01/01/2006 Overview: ICD10 Diagnosis Term Coal Shooter Utility documented as of this encounter (statuses as of 03/17/2019) Resolved Problems Problem Noted Date Resolved Date [...] retinopathy 12/11/2006 07/09/2013 Overview: ICD10 Diagnosis Term Coal Shooter Utility Type II or unspecified type diabetes mellitus without mention 01/01/2006 of complication, not stated as uncontrolled documented as of this encounter (statuses as of 03/17/2019) Immunizations Name Administration Dates Next Due Influenza [...] Treatment Date Type Specialty Care Team Description 03/18/2019 Office Visit Vascular Surgery Marion Fuller MD [address] [place] [phone] 04/22/2019 Office Visit Internal Medicine Martín Tyler DO [address] [facility] [id number] [place] [address] [phone] Health Maintenance Due Date Last Done Comments [...] 11/20/2017, 10/31/2015, Additional history exists CREATININE (SERUM) 03/05/2020 03/05/2019, 02/25/2019, 02/13/2019, Additional history exists PNEUMOCOCCAL VACCINES 65+ Completed 07/04/2017, 09/28/2015, 10/01/2007 documented as of this encounter Implants Implanted Type Area Liner Machine Operator Device Shelf Model / Serial Identifier Expiration / Lot Date Lens, Faustino #Sn60wf 24.0d - [id number] LENS Left: Eye Faustino 11/09/2016 SN60WF 24.0D / Implanted: Qty: 1 on 02/08/2013 by Matthew Serna MD at [facility] / [id number] Log [id number] - Tray, Faustino Lens (Virtual) - 1 - Lens, Faustino #Sn60wf 24.0d LENS Right: Faustino 01/06/2018 SN60WF 24.0D / Implanted: Qty: 1 on 03/08/2013 at [facility] Eye [id number] / documented as of this encounter Results Not on filedocumented in this encounter Insurance Payer Benefit Plan / Subscriber ID Effective Dates Phone Address Type Group MEDICARE MEDICARE PART xxxxxxxxxxx 2004-Prese [phone] 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
--- OUTSIDE RECORDS SUMMARY | 2019-03-23 22:05 | XMS REPORT | Summary of Care ---
:1940 Author Organization [facility] - [facility] Address [address] [place] [address] Care Team Providers Name Role Phone Amaya Chadwick Service/Team Unavailable Martín Tyler DO Primary Care Provider Dash Jacobson DO Demand Planning Manager Reason for Visit Reason Comments Abdominal Pain Auth/Cert Status Reason Specialty Diagnoses / Referred By Referred To Procedures Contact Contact Emergency Medicine Diagnoses ABD PAIN [facility] [address] [place] [address] [place] [address] Encounter Details Date Type Department Care Team Description 03/05/2019 Emergency [facility]-Emergency Darnell Jara MD Abdominal pain, unspecified abdominal location (Primary Dx); Department [address] [place] [address] Elevated troponin [address] [place] [address] [address] [place] [address] [place] [address] [phone] Allergies Active Allergy Reactions Severity Noted Date [...] disease daily. 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, macular edema presence unspecified Coronary artery disease involving coronary bypass graft of [place] heart 2016 without angina pectoris Wound, surgical, [...] 01/01/2006 Dermatophytosis 01/01/2006 Overview: ICD10 Diagnosis Term Jig Borer Utility documented as of this encounter (statuses [...] retinopathy 12/11/2006 07/09/2013 Overview: ICD10 Diagnosis Term Jig Borer Utility Type II or unspecified type diabetes [...] Sign Reading Time Taken Comments Blood Pressure 167/74 03/05/2019 7:15 PM CDT Pulse 55 03/05/2019 7:15 PM CDT Temperature 36.4 C (97.5 F) 03/05/2019 4:11 PM CDT Respiratory Rate 19 03/05/2019 7:15 PM CDT Oxygen Saturation 95% 03/05/2019 7:15 PM CDT Inhaled Oxygen Concentration - - Weight 56.7 kg (125 lb) 03/05/2019 7:36 PM CDT Height - - Body Mass Index 20.8 02/13/2019 9:46 PM CDT documented in this encounter Discharge Instructions InstructionsNeDarnell dickerson MD - 03/05/2019 RETURN FOR ANY QUESTIONS OR CONCERNS Today you were seen by Darnell Jara Jr., MD You were seen today for Chief Complaint Patient presents with Abdominal Pain Your ER diagnosis was ICD-10-CM ICD-9-CM 1. Abdominal pain, unspecified abdominal location R10.9 789.00 2. Elevated troponin R74.8 790.6 NO LIFE-THREATENING FINDINGS ON TODAY'S EXAM. YOUR PRESCRIPTIONS : Check out [employer] for medication discounts Medication List ASK your doctor about these medications * acetaminophen-codeine 300-30 mg tablet Commonly known as: TYLENOL-CODEINE #3 Take 1 tablet by mouth every 6 (six) hours as needed for Pain (scale 4-6) or Pain (scale 7-10). * acetaminophen-codeine 300-30 mg tablet Commonly known as: TYLENOL-CODEINE #3 Take 1 tablet by mouth every 6 (six) hours as needed for Pain (scale 7-10). amLODIPine 10 mg tablet Commonly known as: NORVASC Take 1 tablet by mouth daily. * atorvastatin 40 mg tablet Commonly known as: LIPITOR Take 1 tablet by mouth at bedtime for 30 days. * atorvastatin 10 mg tablet Commonly known as: LIPITOR Take 1 tablet by mouth daily. blood sugar diagnostic strip Commonly known as: BLOOD GLUCOSE TEST Use daily dx code E11.21 * Blood-Glucose Meter Kit Commonly known as: FREESTYLE SYSTEM KIT Use as directed * Blood-Glucose Meter Kit Commonly known as: FREESTYLE SYSTEM KIT Use daily dx code E11.21 brinzolamide 1 % ophthalmic suspension drops Commonly known as: AZOPT Place 1 Drop in both eyes 3 (three) times daily. carvedilol 12.5 mg tablet Commonly known as: COREG Take 1 tablet by mouth 2 (two) times daily with meals for 30 days. clonazePAM 0.5 mg tablet Commonly known as: KLONOPIN Take 1 tablet by mouth 3 (three) times daily as needed (panic or anxiety attack) . clopidogrel 75 mg tablet Commonly known as: PLAVIX Take 1 tablet by mouth daily for 30 days. docusate 100 mg capsule Commonly known as: COLACE Take 1 capsule by mouth daily. furosemide 80 mg tablet Commonly known as: LASIX Take 1 tablet by mouth daily for 30 days. hydrALAZINE 50 mg tablet Commonly known as: APRESOLINE Take 1 tablet by mouth 2 (two) times daily. lancets 33 gauge Misc Commonly known as: One Touch Delica Use daily dx code E11.21 latanoprost 0.005 % ophthalmic drops Commonly known as: XALATAN Place 1 Drop in both eyes every evening. nitroglycerin 0.4 mg sublingual tablet Commonly known as: NITROSTAT PLACE 1 TABLET UNDER THE TONGUE EVERY 5 (FIVE) MINUTES NEEDED FOR CHEST PAIN. ondansetron 4 mg tablet Commonly known as: ZOFRAN Take 1 tablet by mouth every 8 (eight) hours as needed for Nausea and Vomiting ( N/V). pantoprazole 40 mg EC tablet Commonly known as: PROTONIX Take 1 tablet by mouth daily. terbinafine HCl 1 % cream Commonly known as: LamISIL AT Apply to area(s) 2 (two) times daily. traMADol 50 mg tablet Commonly known as: ULTRAM Take 1 tablet by mouth every 6 (six) hours as needed for Pain (scale 4-6). * This list has 6 medication(s) that are the same as other medications prescribed for you. Read thedirections carefully, and ask your doctor or other care provider to review them with you. ER precautions and follow up : 1. Return to ER if your symptoms should worsen or fail to improve within 72 hours. 2. The care provided in the emergency room was for acute problems only. 3. You should follow up with your primary care provider within 72 hours. 4. Fill and take all your medications as prescribed. 5. Make sure you are staying adequately hydrated. Busque attencion immediatamente si usted tiene los sitomas sigue, vuelve peor o si hay sitomas nuevas o para cualquiera preoccupacion incluyendo dolor del pecho , falta aire, se siente debile, mas fievre, mas dolor, nausea, vomitando, sangrando que no es normal, confusion, baja or pierdas conciencia. MAY FOLLOW-UP WITH A PROVIDER OF YOUR CHOICE, SUCH : 1. A PHYSICIAN OF YOUR CHOICE 2. [facility], . LOCATIONS IN [facility] 3. [facility], [address] [place] [address]; [phone] OR, IF YOU WISH TO FOLLOW-UP WITHIN THE [facility], MAY TRY THESE OPTIONS (CLINIC APPOINTMENTS AVAILABLE ON CMXY-QU-GOYS BASIS): 1. SCHEDULE AN APPOINTMENT ONLINE AT [facility] 2. OR CALL THE [facility] ACCESS CENTER AT OR 3. OR CALL YOUR [facility] PHYSICIAN'S OFFICE DIRECTLY IF YOU ARE ALREADY AN ESTABLISHED [facility] PATIENT. [facility] RETURN TO WORK / SCHOOL STEPHEN Quarles WAS SEEN IN THE ER AND DISCHARGED 03/05/2019 TODAY, 6:32 PM & May return to Work / School / Incarceration on X with activity as tolerated indicated below. ___The following limitations apply until pt is seen by Physician and cleared to return to normal activity. _X_ Off for two days and return to activity as tolerated at work or school ___ No Sports ___ No work ___ Do not return until fever free for 24 hours. ___ No school DARNELL JARA Jr., MD [facility] EMERGENCY DEPRTMENT [address] [place] [address] [place] [address] ### The patient may have been given Narcotic pain medications during their stay in the ED that may show up on a Drug Screen. The hospital discharge paper work will identify these medications. AttachmentsThe following attachments cannot be sent through Care Everywhere.Abdominal Pain, Adult (Montenegrin)documented in this encounter Progress Notes Noman Fortune MD - 03/05/2019 5:16 PM CDTVascular Surgery Faculty Note ( Dr. Fortune) Date of service: 03/05/2019 Chart/imaging reviewed. Chronic mesenteric angina. Many medical problems. No acute ischemia per chart, images, and Dr. Jara. OK to follow up as outpatient this week with Dr. Fuller. There might be an endovascular treatment option for either the celiac or SMA. Noman Fortune MD, KOLBY, MHA, RPVI, FACS collet driller Division of Vascular Surgery and Endovascular Therapy 03/05/2019 5:16 PM | Office: [phone] | | Pager: documented in this encounter Plan of Treatment Date Type Specialty Care Team Description 04/22/2019 Office Visit Internal Medicine Martín Tyler, DO [address] [facility] [address] [place], [place] [id number] Health Maintenance Due Date Last Done Comments [...] of this encounter Implants Implanted Type Area Technology Development Intern Device Shelf Model / Serial Identifier Expiration / Lot Date Lens, Faustino #[id number] 24.0d - [id number] LENS Left: Eye Faustino 11/09/2016 [id number] 24.0D / Implanted: Qty: 1 on 02/08/2013 by Matthew Serna MD at [facility] / [id number] - Tray, Faustino Lens (Virtual) - 1 - Lens, Faustino #[id number] 24.0d LENS Right: Faustino 01/06/2018 [id number] 24.0D / Implanted: Qty: 1 on 03/08/2013 at [facility] Eye [id number] / documented as of this encounter Procedures Procedure Name Priority Date/Time Associated Diagnosis Comments LACTIC ACID WHOLE STAT 03/05/2019 5:06 Abdominal pain, Results for this BLOOD PM CDT unspecified procedure are in abdominal location the results section. CBC WITH DIFFERENTIAL STAT 03/05/2019 5:05 Abdominal pain, Results for this PM CDT unspecified procedure are in abdominal location the results section. ACTIVATED PARTIAL STAT 03/05/2019 5:05 Abdominal pain, Results for this THRMPLAS SYED PM CDT unspecified procedure are in abdominal location the results section. PROTHROMBIN TIME / STAT 03/05/2019 5:05 Abdominal pain, Results for this INR PM CDT unspecified procedure are in abdominal location the results section. CBC WITH DIFF Routine 03/05/2019 5:05 Abdominal pain, Results for this PM CDT unspecified procedure are in abdominal location the results section. BASIC METABOLIC PANEL STAT 03/05/2019 5:05 Abdominal pain, Results for this (NA, K, CL, CO2, PM CDT unspecified procedure are in GLUCOSE, BUN, abdominal location the results CREATININE, CA) section. HEPATIC FUNCTION STAT 03/05/2019 5:05 Abdominal pain, Results for this PANEL (38044) PM CDT unspecified procedure are in (ALB,T.PRO,BILI abdominal location the results T,BU/BC,ALT,AST,ALK section. PHOS) TROPONIN I STAT 03/05/2019 5:05 Abdominal pain, Results for this PM CDT unspecified procedure are in abdominal location the results section. LIPASE STAT 03/05/2019 5:05 Abdominal pain, Results for this PM CDT unspecified procedure are in abdominal location the results section. EKG-12 LEAD STAT 03/05/2019 4:22 PM CDT documented in this encounter Results Lactic Acid Whole Blood (03/05/2019 5:06 PM CDT) Pathologist [facility] LACTIC ACID 1.46 0.50 - 2.20 mmol/L [facility] Specimen Blood - VENOUS Performing Organization Address City/State/Zipcode Phone Number [facility] CLIA: [id number], [address] [place] [address] CBC WITH DIFFERENTIAL (03/05/2019 5:05 PM CDT) Pathologist [facility] WBC 4.42 4.20 - 10.70 [facility] 10*3/L [facility] RBC 3.91 (L) 4.26 - 5.52 [facility] 10*6/L [facility] HGB 12.6 12.2 - 16.4 [facility] g/dL [facility] HCT 38.0 (L) 38.4 - 49.3 % [facility] MCV 97.2 (H) 81.7 - 95.6 [facility] LABORATORY MCH 32.2 26.1 - 32.7 [facility] LABORATORY MCHC 33.2 31.2 - 35.0 [facility] g/dL [facility] RDW-SD 54.4 (H) 38.5 - 51.6 [facility] LABORATORY RDW-CV 15.2 12.1 - 15.4 % [facility] PLT 122 (L) 150 - 328 [facility] 10*3/L [facility] MPV 11.2 9.8 - 13.0 fL [facility] IPF % 3.4Comment: Platelet 1.2 - 10.7 % [facility] count measured by HOSPITAL fluorescence method. LABORATORY NRBC/100 WBC 0.0 0.0 - 10.0 [facility] /100 WBCs [facility] NRBC x10^3 <0.01 10*3/L [facility] GRAN MAT (NEUT) % 76.5 % [facility] IMM GRAN % 0.70 % [facility] LYMPH % 10.9 % [facility] MONO % 10.0 % [facility] EOS % 1.4 % [facility] BASO % 0.5 % [facility] GRAN MAT 3.39 1.99 - 6.95 [facility] x10^3(ANC) 10*3/uL [facility] IMM GRAN x10^3 0.03 0.00 - 0.06 [facility] 10*3/uL [facility] LYMPH x10^3 0.48 (L) 1.09 - 3.23 [facility] 10*3/uL [facility] MONO x10^3 0.44 0.36 - 1.02 [facility] 10*3/uL [facility] EOS x10^3 0.06 0.06 - 0.53 [facility] 10*3/uL [facility] BASO x10^3 <0.03 0.01 - 0.09 [facility] 10*3/uL [facility] Specimen Blood - VENOUS Performing Organization Address City/[facility]/Zipcode Phone Number [facility] CLIA: [id number], [address] [place] [address] Prothrombin Time (PT) / INR (03/05/2019 5:05 PM CDT) PROTIME PATIENT 15.1 (H) 12.0 - 14.7 [facility] LABORATORY INR 1.3Comment: Normal [facility] INR <1.1; Warfarin [facility] Therapeutic range LABORATORY 2.0 to 3.0 or 2.5 to 3.5, depending upon the indications. Specimen Blood - VENOUS Performing Organization Address City/[facility]/Zipcode Phone Number [facility] CLIA: [id number], [address] [place] [address] aPTT (03/05/2019 5:05 PM CDT) APTT Patient 39 (H) 23 - 38 Seconds [facility] Specimen Blood - VENOUS Narrative Performed At The [facility] patient population mean normal value [facility] LAB[facility] for aPTT is 30 seconds. Performing Organization Address [facility] Phone Number [facility] CLIA: [id number], [address] [place] [id number] [address] Troponin I (03/05/2019 5:05 PM CDT) Pathologist [facility] TROPONIN I 0.050 (H) <=0.034 ng/mL [facility] Specimen Blood - VENOUS Narrative Performed At Equal or Less than 0.034 ng/ml---Normal [facility] Note: Cardiac troponin begins to [...] patient's use of biotin. Performing Organization Address [facility] Phone Number [facility] CLIA: [id number], [address] [place] [address] Lipase Serum (03/05/2019 5:05 PM CDT) LIPASE 60 0 - 220 U/L [facility] LAB[facility] Specimen Blood - VENOUS Performing Organization Address [facility] Phone Number [facility] CLIA: [id number], [address] [place], [place] [address] [address] Hepatic Function Panel (ALB, T.PRO, BILI T, BU/BC, ALT, AST, ALK PHOS) (2018 5:05 PM CDT) TOTAL BILI 0.7 0.1 - 1.1 mg/dL [facility] BILI UNCON 0.2 0.1 - 1.1 mg/dL [facility] BILI CONJ 0.0 0.0 - 0.3 mg/dL [facility] T PROTEIN 8.0 6.3 - 8.2 g/dL [facility] ALBUMIN 4.5 3.5 - 5.0 g/dL [facility] ALK PHOS 146 (H) 34 - 122 U/L [facility] ALT(SGPT) 22 9 - 51 U/L [facility] AST(SGOT) 32 13 - 40 U/L [facility] Specimen Blood - VENOUS Performing Organization Address City/State/Zipcode Phone Number [facility] CLIA: [id number], [address] [place] [address] Basic Metabolic Panel (NA, K, CL, CO2, GLUCOSE, BUN, CREATININE, CA) (2018 5:05 PM CDT) NA 138 135 - 145 [facility] mmol/L [facility] K 5.4 (H) 3.5 - 5.0 [facility] mmol/L [facility] CL 100 98 - 108 mmol/L [facility] CO2 TOTAL 21 (L) 23 - 31 mmol/L [facility] AGAP 17 (H) 2 - 16 [facility] BUN 36 (H) 7 - 23 mg/dL [facility] GLUCOSE 130 (H) 70 - 110 mg/dL [facility] CREATININE 4.08 (H) 0.60 - 1.25 [facility] mg/dL [facility] CALCIUM 9.1 8.6 - 10.6 [facility] mg/dL [facility] LAB[facility] eGFR Calculation 14.3 mL/min/1.73m2 [facility] ([facility] LABORATORY Tongan) eGFR Calculation 17.3 mL/min/1.73m2 [facility] () [facility] Specimen Blood - VENOUS Narrative Performed At Association of Glomerular Filtration Rate (GFR) [facility] LAB[facility] and Staging of Kidney Disease* [...] tests). Performing Organization Address City/State/Zipcode Phone Number [facility] CLIA: [id number], [address] [place] [address] documented in this encounter Visit Diagnoses Diagnosis Abdominal pain, unspecified abdominal location - Primary Elevated troponin Other abnormal blood chemistry documented in this encounter Administered Medications Medication Order MAR Action Action Date Dose Rate Site morpHINE injection 2 mg Given 03/05/2019 5:06 PM CDT 2 mg 2 mg, Slow IV Push, ONCE, 1 dose, 03/05/19 at 1800, STAT morpHINE injection 2 mg Given 03/05/2019 5:59 PM CDT 2 mg 2 mg, Slow IV Push, ONCE, 1 dose, 03/05/19 at 1800, STAT nitroglycerin (NITROSTAT) sublingual tablet Given 03/05/2019 6:58 PM CDT 0.4 mg 0.4 mg 0.4 mg, Sublingual, ONCE, 1 dose, 03/05/19 at 1945, MALCOLM ondansetron (ZOFRAN (PF)) injection 4 mg Given 03/05/2019 5:06 PM CDT 4 mg 4 mg, Slow IV Push, ONCE, 1 dose, 03/05/19 at 1730, MALCOLM documented in this encounter Insurance Payer Benefit Plan / Subscriber ID Effective Dates Phone Address Type Group MEDICARE MEDICARE PART xxxxxxxxxxx 2004-Carol [phone] [facility] Medicare A & B [id number] [place] [id number] [facility] MEDICAID OF xxxxxxxxx 2011-Presen [phone] [place] t [id number] [place] [address] ([place]) [place] [address] documented as of this encounter Advance Directives Type Date Recorded Patient Terrazzo Polisher Explanation Advance Directives and Living Will Power of Ferris Wheel Operator"
--- OUTSIDE RECORDS SUMMARY | 2019-03-23 22:05 | XMS REPORT | Summary of Care ---
:[address] [facility] Address [address] [place] [id number] Care Team Providers Name Role Phone Amaya Chadwick Service/Team Unavailable Martín Tyler DO Primary Care Provider Dash Jacobson DO Financial Institution Branch Manager Reason for Referral Other (MALCOLM) Status Reason Specialty Diagnoses / Procedures Referred By Referred To Contact Contact New Request Diagnoses Chronic vascular insufficiency of intestine Drug-induced constipation Keven Zhu Jennifer, Procedures Discharge Follow-up: Specialty Provider EMMANUEL RAYGOZA; 3-5 Days MD MISTY Trivedi [address] [place] [address] [id number] [place] [phone] Phone: Fax: Reason for Visit Reason Comments Abdominal Pain Auth/Cert Status Reason Specialty Diagnoses / Referred By Referred To Procedures Contact Contact Emergency Medicine Diagnoses ABDOMINAL PAIN [facility] [address] [place] [address] [place] [address] Encounter Details Date Type Department Care Team Description 03/13/2019 Emergency [facility]-Emergency Keven Zhu Chronic vascular insufficiency of intestine (Primary Dx); Department Drug-induced constipation [address] [place] [address] [place] [address] [id number] [place] [address] [phone] Allergies Active Allergy Reactions Severity Noted Date Comments Aspirin Unknown - See comments 02/07/2019 documented as of this encounter (statuses as of 03/13/2019) Medications Medication Sig Dispensed Refills Start Date [...] disease daily. involving coronary bypass graft of [place] heart without angina pectoris, Pure hypercholesterolemia atorvastatin [...] as of this encounter (statuses as of 03/13/2019) Active Problems Problem Noted Date Acute on chronic combined systolic and diastolic congestive heart failure 11/2018 PAD (peripheral artery disease) 02/14/2019 Hyperkalemia 02/07/2019 Abdominal pain 01/21/2019 Generalized abdominal pain 01/07/2019 Nonrheumatic aortic valve stenosis 01/06/2019 Pulmonary hypertension 01/06/2019 Bilateral carotid artery disease 01/06/2019 (HFpEF) heart failure with preserved ejection fraction 01/06/2019 Cholecystitis 01/05/2019 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 Overview: Added automatically from request for surgery [id number] Colitis 10/12/2018 E44.0 Moderate protein calorie malnutrition 08/25/2018 Anasarca 08/20/2018 ESRD (end stage renal disease) 08/20/2018 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, macular edema presence unspecified Coronary artery disease involving coronary bypass graft of [place] heart 2016 without angina pectoris Wound, surgical, [...] 01/01/2006 Dermatophytosis 01/01/2006 Overview: ICD10 Diagnosis Term Cuff Presser Utility documented as of this encounter (statuses as of 03/13/2019) Resolved Problems Problem Noted Date Resolved Date [...] retinopathy 12/11/2006 07/09/2013 Overview: ICD10 Diagnosis Term Cuff Presser Utility Type II or unspecified type diabetes mellitus without mention 01/01/2006 of complication, not stated as uncontrolled documented as of this encounter (statuses as of 03/13/2019) Immunizations Name Administration Dates Next Due Influenza [...] Sign Reading Time Taken Comments Blood Pressure 194/76 03/13/2019 1:00 AM CDT Pulse 58 03/13/2019 1:00 AM CDT Temperature 37.1 C (98.7 F) 03/13/2019 12:11 AM CDT Respiratory Rate 16 03/13/2019 1:00 AM CDT Oxygen Saturation 97% 03/13/2019 1:00 AM CDT Inhaled Oxygen Concentration - - Weight 56.7 kg (125 lb) 03/13/2019 12:11 AM CDT Height - - Body Mass Index 20.8 02/13/2019 9:46 PM CDT documented in this encounter Discharge Instructions Keven Hennessy MD - 03/13/2019 DIAGNOSIS Diagnoses that have been ruled out: None Diagnoses that are still under consideration: None Final diagnoses: Chronic vascular insufficiency of intestine Drug-induced constipation NO LIFE-THREATENING FINDINGS ON TODAY'S EXAM. PROCEDURES IN THE ER TODAY: No orders of the defined types were placed in this encounter. MEDICATIONS ADMINISTERED IN THE ER TODAY AND DISCHARGE MEDICATIONS: Orders Placed This Encounter Medications lactulose (CEPHULAC) solution 45 mL FOLLOW-UP RECOMMENDATIONS: RECOMMEND FOLLOW-UP WITH DR RAYGOZA DISCUSSED documented in this encounter Plan of Treatment Date Type Specialty Care Team Description 03/22/2019 Office Visit Vascular Surgery Emmanuel Ragyoza MD [address] [place] [phone] 04/22/2019 Office Visit Internal Medicine Martín Tyler DO [address] [facility] [id number] [place] [address] [phone] Health Maintenance Due Date Last Done Comments [...] of this encounter Implants Implanted Type Area Video Production Coordinator Device Shelf Model / Serial Identifier Expiration / Lot Date Lens, Faustino #Sn60wf 24.0d - [id number] LENS Left: Eye Faustino 11/09/2016 SN60WF 24.0D / Implanted: Qty: 1 on 02/08/2013 by Matthew Senra MD at [facility] / [id number] Log [id number] - Faustino Perez Lens (Virtual) - 1 - Lens, Faustino #[id number] 24.0d LENS Right: Faustino 01/06/2018 SN60WF 24.0D / Implanted: Qty: 1 on 03/08/2013 at [facility] Eye [id number] / documented as of this encounter Procedures Procedure Name Priority Date/Time Associated Diagnosis Comments NOTICE OF PRIVACY Routine 03/13/2019 12:06 AM CDT PRACTICES CONSENT/REFUSAL FOR Routine 03/13/2019 12:06 AM CDT DIAGNOSIS AND TREATMENT documented in this encounter Results Not on filedocumented in this encounter Visit Diagnoses Diagnosis Chronic vascular insufficiency of intestine - Primary Drug-induced constipation Other constipation documented in this encounter Administered Medications Medication Order MAR Action Action Date Dose Rate Site lactulose (CEPHULAC) solution 45 Given 03/13/2019 1:50 AM CDT 45 mL mL 45 mL, Oral, ONCE, 1 dose, 03/13/19 at 0245, MALCOLM documented in this encounter Insurance Payer Benefit Plan / Subscriber ID Effective Dates Phone Address Type Group MEDICARE MEDICARE PART xxxxxxxxxxx 2004-Prese [phone] Medicare A & B [address] [id number] [place] [address] [facility] MEDICAID OF xxxxxxxxx 2011-[place] [phone] [address] Medicaid [place] t 0 [id number] [place] [address] ([place]) [place] [address] documented as of this encounter Advance Directives Type Date Recorded Patient Field Support Technician Explanation Advance Directives and Living Will Power of Team Otr Truck Driver
--- OUTSIDE RECORDS SUMMARY | 2019-03-23 22:06 | XMS REPORT | Summary of Care ---
:1940 Author Organization [facility] Address [address] [place] [address] Care Team Providers Name Role Phone Amaya Chadwick Service/Team Unavailable Martín Tyler DO Primary Care Provider Dash Jacobson DO Detacher Reason for Visit Reason Comments Follow-up hospital follow up Other ([place]) Status Reason Specialty Diagnoses / Referred By Referred To Procedures Contact Contact Closed Vascular Surgery Diagnoses Chronic abdominal pain Atherosclerotic vascular disease Keven Zhu, Marion Raygoza, Procedures Discharge Follow-up: Specialty Provider MARION RAYGOZA; 3-5 Days MD JAY [address] [place] [id number] [place] [phone] Phone: Encounter Details Date Type Department Care Team Description 03/18/2019 Office Visit [facility] [place] Vascular Marion Raygoza, Generalized abdominal Surgery- Ebony JAY pain (Primary Dx) [address] [address] [place], [place] [phone] [address] [phone] Allergies Active Allergy Reactions Severity Noted Date Comments Aspirin Unknown - See comments 02/07/2019 documented as of this encounter (statuses as of 03/18/2019) Medications Medication Sig Dispensed Refills Start Date [...] disease daily. involving coronary bypass graft of [place] heart without angina pectoris, Pure hypercholesterolemia hydrALAZINE 50 mg Take 1 tablet 180 tablet 1 02/17/2019 Active tabletIndications: by mouth 2 Abdominal pain in male (two) times daily. nitroglycerin 0.[address] 1 tablet 5 tablet 0 03/05/2019 Active sublingual under the tabletIndications: tongue as Abdominal pain, needed (after unspecified abdominal meals). location, Elevated troponin clopidogrel 75 mg tablet Take 75 mg by 0 Active mouth daily. busPIRone 5 mg tablet Take 5 mg by 0 Active mouth 2 (two) times daily. furosemide 80 mg tablet Take 80 mg by 0 Active mouth daily. ramipril 5 mg capsule Take 5 mg by 0 Active mouth daily. documented as of this encounter (statuses as of 03/18/2019) Active Problems Problem Noted Date Acute on chronic combined systolic and diastolic congestive heart failure 11/2018 PAD (peripheral artery disease) 02/14/2019 Hyperkalemia 02/07/2019 Abdominal pain 01/21/2019 Generalized abdominal pain 01/07/2019 Nonrheumatic aortic valve stenosis 01/06/2019 Pulmonary hypertension 01/06/2019 Bilateral carotid artery disease 01/06/2019 (HFpEF) heart failure with preserved ejection fraction 01/06/2019 Cholecystitis 01/05/2019 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 Overview: Added automatically from request for surgery [id number] Colitis 10/12/2018 E44.0 Moderate protein calorie malnutrition 08/25/2018 Anasarca 08/20/2018 ESRD (end stage renal disease) 08/20/2018 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, macular edema presence unspecified Coronary artery disease involving coronary bypass graft of [place] heart 2016 without angina pectoris Wound, surgical, [...] 01/01/2006 Dermatophytosis 01/01/2006 Overview: ICD10 Diagnosis Term Hoop Expander Utility documented as of this encounter (statuses as of 03/18/2019) Resolved Problems Problem Noted Date Resolved Date [...] retinopathy 12/11/2006 07/09/2013 Overview: ICD10 Diagnosis Term Hoop Expander Utility Type II or unspecified type diabetes mellitus without mention 01/01/2006 of complication, not stated as uncontrolled documented as of this encounter (statuses as of 03/18/2019) Immunizations Name Administration Dates Next Due Influenza [...] Sign Reading Time Taken Comments Blood Pressure 189/71 03/18/2019 8:28 AM CDT Pulse 63 03/18/2019 8:19 AM CDT Temperature 37.4 C (99.4 F) 03/18/2019 8:19 AM CDT Respiratory Rate 20 03/18/2019 8:19 AM CDT Oxygen Saturation - - Inhaled Oxygen Concentration - - Weight - - Height - - Body Mass Index - - documented in this encounter Progress Notes Marion Raygoza MD - 03/18/2019 8:15 AM CDTI discussed the patient with Dr. Carvajal then personally examined the patient on 03/18/2019. I agree with the note as detailed by Dr. Carvajal. I actively participated in the decision-making process regarding the assessment and plan of care. Please see the resident's note for additional details. Patientwith symptoms of chronic mesenteric ischemia. Has appointment with central supply technician supervisor next Thursday for clearance for EGD by GI. Patient is not a good candidate for open surgical intervention therefore will attempt endovascular stenting after the EGD. Will plan for Thursday04/08/19. Dialysis TTS schedule via permcath. After treatment for the mesenterics, will need to workup for fistula creation as well as claudication symptoms. Marion Raygoza MD, [facility] Vascular Surgery Bolivar Fitch DO - 03/18/2019 8:15 AM CDT Visit Type: Clinic Note / History and Physical Chief Complaint: abdominal pain HPI Blaise Quarles is a 78 year old male with past medical history as below who presents for abdominal painx 3 months. He notices that the pain comes after he eats, however sometimes he has pain before he eats. The pain is intermittent and sharp in nature, takes oxycodone to relieve the pain. Endorses constipation , however states that when he has a bowel movement it is normal. Previously he was told that his stomach pain may be from his gall bladder, but was referred after CT scan on 02/14/2019 showed high grade stenosis of of SMA and TARI with distal reconstitution/retrograde filling. Denies changes in appetite, but does have food fear. States he loss about 30 pounds in the last 3 months. Patient has dialysis TTS via right IJ permacath for the past 7 months. Transports with oxygen s/p CABG in 2015. Endorses pain in bilateral calves after taking more than 4-5 steps. Denies chest pain, shortness of breath, nausea or vomiting. 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 Unspecified essential hypertension 09/30/2007 Past Surgical History Past Surgical History: Procedure Laterality Date CABG, ARTERY-VEIN, THREE 07/02/2016 Done at [facility] CARDIAC CATH PHYSICIAN 2010 At [facility] INJECTION (SPECIFY) PHACOEMULSIFICATION OF CATARACT WITH INTRAOCULAR LENS IMPLANT 02/08/2013 Surgeon: Matthew Serna MD; Location: [facility] PHACOEMULSIFICATION OF CATARACT WITH INTRAOCULAR LENS IMPLANT 03/08/2013 Surgeon: Matthew Serna MD; Location: [facility] Family History Family History Problem Relation Age of Onset Coronary Heart Disease Mother No Significant Medical Problems Father Social History Social History Socioeconomic History Marital status: Spouse name: Not on file Number of children: Not on file Years of education: Not on file Highest education level: Not on file Occupational History Not on file Social Needs Financial resource strain: Not on file Food insecurity: Worry: Not on file Inability: Not on file Transportation needs: Medical: Not on file Non-medical: Not on file Tobacco Use Smoking status: Former Smoker Packs/day: 1.00 Years: 20.00 Pack years: 20.00 Types: Cigarettes Last attempt to quit: 07/08/2009 Years since quittin.6 Smokeless tobacco: Never Used Substance and Sexual Activity Alcohol use: No Drug use: No Sexual activity: Not on file Lifestyle Physical activity: Days per week: Not on file Minutes per session: Not on file Stress: Not on file Relationships Social connections: Talks on phone: Not on file Gets together: Not on file Attends orthodoxy service: Not on file Active member of club or organization: Not on file Attends meetings of clubs or organizations: Not on file Relationship status: Not on file Intimate partner violence: Fear of current or ex partner: Not on file Emotionally abused: Not on file Physically abused: Not on file Forced sexual activity: Not on file Other Topics Concern Not on file Social History Narrative Not on file Allergies Allergen Reactions Asa [Aspirin] Unknown - See comments Current Outpatient Medications Medication Sig Dispense Refill busPIRone 5 mg tablet Take 5 mg by mouth 2 (two) times daily. clopidogrel 75 mg tablet Take 75 mg by mouth daily. furosemide 80 mg tablet Take 80 mg by mouth daily. ramipril 5 mg capsule Take 5 mg by mouth daily. atorvastatin 10 mg tablet Take 1 tablet by mouth daily. (Patient taking differently: Take 40 mg by mouth daily.) 90 tablet 1 hydrALAZINE 50 mg tablet Take 1 tablet by mouth 2 (two) times daily. 180 tablet 1 traMADol 50 mg tablet Take 1 tablet by mouth every 6 (six) hours as needed for Pain (scale 4-6).15 tablet 0 ondansetron (ZOFRAN) 4 mg tablet Take 1 tablet by mouth every 8 (eight) hours as needed for Nausea and Vomiting (N/V). 12 tablet 0 amLODIPine 10 mg tablet Take 1 tablet by mouth daily. 90 tablet 0 NITROGLYCERIN 0.[address] 1 TABLET UNDER THE TONGUE EVERY 5 (FIVE) MINUTES ASNEEDED FOR CHEST PAIN. 75 tablet 0 clonazePAM 0.5 mg tablet Take 1 tablet by mouth 3 (three) times daily as needed (panic or anxiety attack). (Patient taking differently: Take 1 mg by mouth 2 (two) times daily.) 90 tablet 1 nitroglycerin 0.[address] 1 tablet under the tongue as needed (after meals). 5 tablet 0 acetaminophen-codeine (TYLENOL-CODEINE #3) 300-30 mg tablet Take 1 tablet by mouth every 6 (six)hours as needed for Pain (scale 7-10). 20 tablet 0 acetaminophen-codeine (TYLENOL-CODEINE #3) 300-30 mg tablet Take 1 tablet by mouth every 6 (six)hours as needed for Pain (scale 4-6) or Pain (scale 7-10) . 20 tablet 0 pantoprazole 40 mg EC tablet Take 1 tablet by mouth daily. 30 tablet 0 terbinafine HCl (LAMISIL AT) 1 % cream Apply to area(s) 2 (two) times daily. 1 Tube 3 docusate 100 mg capsule Take 1 capsule by mouth daily. 30 capsule 3 latanoprost 0.005 % ophthalmic drops Place 1 Drop in both eyes every evening. 3 Bottle 2 brinzolamide 1 % ophthalmic suspension drops Place 1 Drop in both eyes 3 ( three) times daily. 10mL 1 blood sugar diagnostic (BLOOD GLUCOSE TEST) strip Use daily dx code E11.21 100 Strip 3 Blood-Glucose Meter Kit Use daily dx code E11.21 1 Kit 0 lancets (ONE TOUCH DELICA) 33 gauge Misc Use daily dx code E11.21 100 Each 3 Blood-Glucose Meter Kit Use as directed 1 Kit 0 No current facility-administered medications for this visit. Review of Systems (-)=Negative,(+)=Positive General/Constitutional: Negative except per HPI Skin/Breast: Negative except per HPI HEENT: Negative except per HPI CV: Negative except per HPI Respiratory: Negative except per HPI GI: Negative except per HPI : Negative except per HPI Musculoskeletal: Negative except per HPI Neurologic: Negative except per HPI Hematologic: Negative except per HPI Endocrine: Negative except per HPI Physical Exam (-)=Negative,(+)=Positive BP (!) 189/71 | Pulse 63 | Temp 37.4 C (99.4 F) (Oral) | Resp 20 General: alert and oriented x 4 (person, place, date/time and situation); no apparent distress HEENT: pupils, equal, round, reactive to light; extraocular movements intact; oropharynx clear; moist mucous membranes Respiratory: breathing unlabored Cardiovascular: regular rate and rhythm Gastrointestinal: soft, diffusely tender to palpation, nondistended Musculoskeletal: no clubbing, cyanosis or edema Integumentary: no rashes Neurologic: no focal deficits Vascular: palpable radial and femoral pulses bilaterally; pedal doppler signals present bilaterally Radiology HISTORY: Abdominal pain concern for mesenteric ischemia. [...] thrombus. Cardiomegaly is present. Moderate to severe [place] trivessel coronary arterial calcifications are noted along [...] study and agree with the above report. Assessment Blaise Quarles is a 78 year old male with past medical history as below who presents for abdominal painx 3 months. He notices that the pain comes after he eats, however sometimes he has pain before he eats. The pain is intermittent and sharp in nature, takes oxycodone to relieve the pain. Endorses constipation , however states that when he has a bowel movement it is normal. Previously he was told that his stomach pain may be from his gall bladder, but was referred after CT scan on 02/14/2019 showed high grade stenosis of of SMA and TARI with distal reconstitution/retrograde filling. Denies changes in appetite, but does have food fear. States he loss about 30 pounds in the last 3 months. Patient has dialysis TTS via right IJ permacath for the past 7 months. Transports with oxygen s/p CABG in 2016. Endorses pain in bilateral calves after taking more than 4-5 steps. Will proceed with mesenteric arteriogram with possible BLE arteriogram. Plan -schedule OR for mesenteric arteriogram, possible angioplasty/stent, possible arteriogram of BLE given symptoms of claudication -consent obtained in clinic ( signs for patient as he is blind) -Informed consent discussed with the patient, including: condition, proposed care, treatments and services, alternative forms of treatment, and risks of no treatment. Details discussed around the procedures to be used, and the risks and hazards involved, potential benefits, and side effects of the patients proposed care, treatment, and services; the likelihood of the patient achieving his or her goals; and any potential problems that might occur during recuperation. Reasonable alternative also discussed with the patients proposed care, treatment, and services. The discussion encompasses risks, benefits, and side effects related to the alternative and risks related to not receiving the proposed care, treatment, and services. Bolivar Carvajal DO PGY1 Vascular Surgery documented in this encounter Plan of Treatment Date Type Specialty Care Team Description 03/21/2019 Office Visit Cardiology Lisa Spangler MD [address] [place] [address] [address] [place] [address] 04/22/2019 Office Visit Internal Medicine Martín Tyler DO [address] [facility] [id number] [place] [address] Health Maintenance Due Date Last [...] of this encounter Implants Implanted Type Area Queen'S Counsel Device Shelf Model / Serial Identifier Expiration / Lot Date Lens, Faustino #Sn60wf 24.0d - [id number] LENS Left: Eye Faustino 11/09/2016 SN60WF 24.0D / Implanted: Qty: 1 on 02/08/2013 by Matthew Serna MD at [facility] / [id number] Log [id number] - Tray, Faustino Lens (Virtual) - 1 - Lens, Faustino #[id number] 24.0d LENS Right: Faustino 01/06/2018 SN60WF 24.0D / Implanted: Qty: 1 on 03/08/2013 at [facility] Eye [id number] / documented as of this encounter Results Not on filedocumented in this encounter Visit Diagnoses Diagnosis Generalized abdominal pain - Primary Abdominal pain, generalized documented in this encounter Insurance Payer Benefit Plan / Subscriber ID Effective Dates Phone Address Type Group MEDICARE MEDICARE PART xxxxxxxxxxx 2004-Prese [phone] [address] Medicare A & B 2 [id number] [place] [phone] [facility] MEDICAID OF xxxxxxxxx 2011-Presen [phone] Medicaid [place] t 0 [id number] [place] [address] ([place]) [place] [address] documented as of this encounter Advance Directives Type Date Recorded Patient Distribution Collection Operator Explanation Advance Directives and Living Will Power of Tax Examining Technician"
--- OUTSIDE RECORDS SUMMARY | 2019-03-23 22:06 | XMS REPORT | Summary of Care ---
:1940 Author Organization [facility] Address [address] [place] [address] Care Team Providers Name Role Phone Amaya Chadwick Service/Team Unavailable Martín Tyler DO Primary Care Provider Dash Jacobson DO Waste Disposal Leakage Tester Reason for Visit Reason Comments Follow-up hospital follow up Other ([place]) Status Reason Specialty Diagnoses / Referred By Referred To Procedures Contact Contact Closed Vascular Surgery Diagnoses Chronic abdominal pain Atherosclerotic vascular disease Keven Zhu, Marion Raygoza, Procedures Discharge Follow-up: Specialty Provider MARION RAYGOZA; 3-5 Days MD JAY [address] [place] [id number] [place] [phone] Phone: Encounter Details Date Type Department Care Team Description 03/18/2019 Office Visit [facility] Vascular Marion Raygoza, Generalized abdominal Surgery- Ebony JAY pain (Primary Dx) [address] [address] [place], [place] [phone] [address] [phone] Allergies Active Allergy Reactions Severity Noted Date [...] disease daily. involving coronary bypass graft of [place] heart without angina pectoris, Pure hypercholesterolemia hydrALAZINE [...] Overview: Added automatically from request for surgery [id number] Colitis 10/12/2018 E44.0 Moderate protein calorie malnutrition 08/25/2018 Anasarca 08/20/2018 ESRD (end stage renal disease) 08/20/2018 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, macular edema presence unspecified Coronary artery disease involving coronary bypass graft of [place] heart 2016 without angina pectoris Wound, surgical, [...] 01/01/2006 Dermatophytosis 01/01/2006 Overview: ICD10 Diagnosis Term Granulator Operator Utility documented as of this encounter (statuses [...] retinopathy 12/11/2006 07/09/2013 Overview: ICD10 Diagnosis Term Granulator Operator Utility Type II or unspecified type diabetes [...] of chronic mesenteric ischemia. Has appointment with foxing cutting machine operator next Thursday for clearance for EGD by GI. Patient is not a good candidate for open surgical intervention therefore will attempt endovascular stenting after the EGD. Will plan for Thursday04/08/19. Dialysis TTS schedule via permcath. After treatment for the mesenterics, will need to workup for fistula creation as well as claudication symptoms. 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 CARDIAC CATH PHYSICIAN 2010 At [place] EYE INJECTION (SPECIFY) PHACOEMULSIFICATION OF CATARACT WITH [...] file Gets together: Not on file Attends scientology service: Not on file Active member of [...] thrombus. Cardiomegaly is present. Moderate to severe barrow trivessel coronary arterial calcifications are noted along [...] 03/21/2019 Office Visit Cardiology Lisa Spangler MD [address] [place] [address] [address] [place] [address] 04/22/2019 Office Visit Internal Medicine Martín Tyler DO [address] [facility] [id number] [place] [address] Health Maintenance Due Date Last [...] of this encounter Implants Implanted Type Area Tray Packer Device Shelf Model / Serial Identifier Expiration / Lot Date Lens, Faustino #Sn60wf 24.0d - [id number] LENS Left: Eye Faustino 11/09/2016 SN60WF 24.0D / Implanted: Qty: 1 on 02/08/2013 by Matthew Serna MD at [facility] / [id number] Log [id number] - Tray, Faustino Lens (Virtual) - 1 - Lens, Faustino #Sn60wf 24.0d LENS Right: Faustino 01/06/2018 SN60WF 24.0D / Implanted: Qty: 1 on 03/08/2013 at [facility] Eye [id number] / documented as of this encounter Results Not on filedocumented in this encounter Visit Diagnoses Diagnosis Generalized abdominal pain - Primary Abdominal pain, generalized documented in this encounter Insurance Payer Benefit Plan / Subscriber ID Effective Dates Phone Address Type Group MEDICARE MEDICARE PART xxxxxxxxxxx 2004-Prese [phone] [address] Medicare A & B 2 [id number] [place] [id number] [facility] MEDICAID OF xxxxxxxxx 2011-Presen [phone] [address] Medicaid [place] t 0 [id number] [place] [address] ([place]) [place] [address] documented as of this encounter Advance Directives Type Date Recorded Patient Program Or Project Administrator Explanation Advance Directives and Living Will Power of Wool Grower"
--- OUTSIDE RECORDS SUMMARY | 2019-03-23 22:06 | XMS REPORT | Summary of Care ---
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 Reason for Visit Reason Comments Abdominal Pain Chest Pain Auth/Cert Status Reason Specialty Diagnoses / Referred By Referred To Procedures Contact Contact Emergency Medicine Diagnoses ABD PAIN,CP [facility] [address] [place] [address] [place] [address] Encounter Details Date Type Department Care Team Description 03/17/2019 Emergency ADC-Emergency Keven Zhu, Chronic abdominal pain Department (Primary Dx) [address] [place] [address] [address] [place] [address] [id number] [place], [place] [address] Allergies Active Allergy Reactions Severity Noted Date [...] disease daily. 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 Wound, surgical, [...] 01/01/2006 Dermatophytosis 01/01/2006 Overview: ICD10 Diagnosis Term Rehabilitation Director Utility documented as of this encounter (statuses [...] retinopathy 12/11/2006 07/09/2013 Overview: ICD10 Diagnosis Term Rehabilitation Director Utility Type II or unspecified type diabetes [...] Sign Reading Time Taken Comments Blood Pressure 173/57 03/17/2019 6:16 PM CDT Pulse 57 03/17/2019 6:16 PM CDT Temperature 36.9 C (98.5 F) 03/17/2019 6:16 PM CDT Respiratory Rate 18 03/17/2019 6:16 PM CDT Oxygen Saturation 94% 03/17/2019 6:16 PM CDT Inhaled Oxygen Concentration - - Weight 56.7 kg (125 lb) 03/17/2019 6:16 PM CDT Height 165.1 cm (5' 5") 03/17/2019 6:16 PM CDT Body Mass Index 20.8 03/17/2019 6:16 PM CDT documented in this encounter Discharge Instructions Keven Hennessy MD - 03/17/2019 DIAGNOSIS Diagnoses that have been ruled out: None Diagnoses that are still under consideration: None Final diagnoses: Chronic abdominal pain NO LIFE-THREATENING FINDINGS ON TODAY'S EXAM. PROCEDURES IN THE ER TODAY: No orders of the defined types were placed in this encounter. MEDICATIONS ADMINISTERED IN THE ER TODAY AND DISCHARGE MEDICATIONS: Orders Placed This Encounter Medications acetaminophen-codeine (TYLENOL #3) 300-30 mg tablet 1 tablet FOLLOW-UP RECOMMENDATIONS: RECOMMEND FOLLOW-UP WITH VASCULAR SURGERY SCHEDULED FOR 8:00 AM TOMORROW documented in this encounter Plan of Treatment Date Type Specialty Care Team Description 03/18/2019 Office Visit Vascular Surgery Marion Fuller MD [address] [place] [phone] 04/22/2019 Office Visit Internal Medicine Martín Tyler DO [address] [place] [address] [id number] [place], [place] [address] Health Maintenance Due Date Last Done Comments [...] of this encounter Implants Implanted Type Area Associate Professor Of Literacy Device Shelf Model / Serial Identifier Expiration / Lot Date Lens, Faustino #Sn60wf 24.0d - [id number] LENS Left: Eye Faustino 11/09/2016 SN60WF 24.0D / Implanted: Qty: 1 on 02/08/2013 by Matthew Serna MD at [facility] / [id number] Log [id number] - Tray, Faustino Lens (Virtual) - 1 - Lens, Faustino #Sn60wf 24.0d LENS Right: Faustino 01/06/2018 SN60WF 24.0D / Implanted: Qty: 1 on 03/08/2013 at [facility] Eye [id number] / documented as of this encounter Procedures Procedure Name Priority Date/Time Associated Diagnosis Comments CONSENT/REFUSAL FOR Routine 03/17/2019 6:31 PM CDT DIAGNOSIS AND TREATMENT documented in this encounter Results Not on filedocumented in this encounter Visit Diagnoses Diagnosis Chronic abdominal pain - Primary Abdominal pain, unspecified site documented in this encounter Administered Medications Medication Order MAR Action Action Date Dose Rate Site acetaminophen-codeine (TYLENOL Given 03/17/2019 7:34 PM CDT 1 tablet #3) 300-30 mg tablet 1 tablet 1 tablet, Oral, ONCE, 1 dose, Jane 9/5/19 at 2030, [place] documented in this encounter Insurance Payer Benefit Plan / Subscriber ID Effective Dates Phone Address Type Group MEDICARE MEDICARE PART xxxxxxxxxxx 2004-Carol [phone] Medicare A & B nt 2 [id number] [place] [phone] [facility] MEDICAID OF xxxxxxxxx 2011-Tomás [phone] [address] Medicaid [place] t 0 [id number] [place] [address] ([place]) [place] [address] documented as of this encounter Advance Directives Type Date Recorded Patient Health Aid Explanation Advance Directives and Living Will Power of Garment Sewer Hand
--- OUTSIDE RECORDS SUMMARY | 2019-03-23 22:07 | XMS REPORT | Summary of Care ---
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 without angina pectoris Wound, surgical, [...] 01/01/2006 Dermatophytosis 01/01/2006 Overview: ICD10 Diagnosis Term Cotton Bag Sewer Utility documented as of this encounter (statuses [...] retinopathy 12/11/2006 07/09/2013 Overview: ICD10 Diagnosis Term Cotton Bag Sewer Utility Type II or unspecified type diabetes [...] 03/21/2019 Office Visit Cardiology Lisa Spangler MD [address] [place] [address] [address] [place] [address] 04/22/2019 Office Visit Internal Medicine Martín Tyler, DO [address] [facility] [id number] [place], [place] [id number] Health Maintenance Due Date Last Done Comments [...] of this encounter Implants Implanted Type Area Plastic Surgery Manager Device Shelf Model / Serial Identifier Expiration / Lot Date Lens, Faustino #Sn60wf 24.0d - [id number] LENS Left: Eye Faustino 11/09/2016 SN60WF 24.0D / Implanted: Qty: 1 on 02/08/2013 by Mtathew Serna MD at [facility] / [id number] Log [id number] - Tray, Faustino Lens (Virtual) - 1 - Lens, Faustino #Sn60wf 24.0d LENS Right: Faustino 01/06/2018 SN60WF 24.0D / Implanted: Qty: 1 on 03/08/2013 at [facility] Eye [id number] / documented as of this encounter Results Not on filedocumented in this encounter Visit Diagnoses Diagnosis Generalized abdominal pain - Primary Abdominal pain, generalized documented in this encounter Insurance Payer Benefit Plan / Subscriber ID Effective Dates Phone Address Type Group MEDICARE MEDICARE PART xxxxxxxxxxx 2004-Carol [phone] [address] Medicare A & B 2 [id number] [place] [id number] [facility] MEDICAID OF xxxxxxxxx 2011-Tomás [phone] [address] Medicaid [facility] 0 [id number] [place] [address] documented as of this encounter Advance Directives Type Date Recorded Patient Crm Technical Lead Explanation Advance Directives and Living Will Power of Science Center Display Builder
--- OUTSIDE RECORDS SUMMARY | 2019-03-23 22:08 | XMS REPORT | Summary of Care ---
:1940 Author Organization [facility] - [facility] Address [address] [place] [address] Care Team Providers Name Role Phone Amaya Chadwick Service/Team Unavailable Martín Tyler DO Primary Care Provider Dash Jacobson DO Community Service Specialist Reason for Referral Radiology Services (Routine) Status Reason Specialty Diagnoses / Referred By Referred To Procedures Contact Contact New Request Diagnostic Diagnoses Chronic systolic heart failure Preop cardiovascular exam Lisa Spangler, Radiology Procedures NM MYOCARDIUM PERFUSION STRESS AND REST [address] [place] [address] [address] [place] [address] Reason for Visit Reason Comments Follow-up Work In/Cardiac Clearance Encounter Details Date Type Department Care Team Description 03/21/2019 Office Visit [facility] Lisa Spangler MD Chronic systolic heart failure (Primary Dx); Cardiology- [address] Preop cardiovascular exam; [address] [place] [address] Coronary artery disease involving [place] coronary artery of [place] heart without angina pectoris; [facility], [address] ESRD (end stage renal disease) on dialysis; [place] [address] PAD (peripheral artery disease); [id number] Nonrheumatic aortic valve stenosis; [phone] Uncontrolled hypertension Allergies Active Allergy Reactions Severity Noted Date Comments Aspirin Unknown - See comments 02/07/2019 documented as of this encounter (statuses as of 03/21/2019) Medications Medication Sig Dispensed Refills Start End [...] by 9 Generalized abdominal mouth daily. pain ondansetron (ZOFRAN) 4 Take 1 12 tablet 0 Active mg tabletIndications: tablet by 9 Generalized abdominal mouth every pain 8 (eight) hours as needed for Nausea and Vomiting (N/V). traMADol 50 mg Take 1 15 tablet 0 Active tabletIndications: tablet by 9 Hyperkalemia mouth every 6 (six) hours as needed for Pain (scale 4-6). atorvastatin 10 mg Take 1 90 tablet 1 Active tabletIndications: tablet by 9 Coronary artery disease mouth daily. involving coronary bypass graft of [place] heart without angina pectoris, Pure hypercholesterolemia hydrALAZINE 50 mg Take 1 180 tablet 1 Active tabletIndications: tablet by 9 Abdominal pain in male mouth 2 (two) times daily. clopidogrel 75 mg tablet Take 75 mg 0 Active by mouth daily. busPIRone 5 mg tablet Take 5 mg by 0 Active mouth 2 (two) times daily. furosemide 80 mg tablet Take 80 mg 0 Active by mouth daily. ramipril 5 mg capsule Take 5 mg by 0 Active mouth daily. carvedilol 12.5 mg Take 12.5 mg 0 Active tablet by mouth 2 (two) times daily with meals. acetaminophen-codeine Take 1 20 tablet 0 03/21/20 Discontinued (TYLENOL-CODEINE #3) tablet by 9 19 300-30 mg mouth every tabletIndications: 6 (six) Generalized abdominal hours as pain needed for Pain (scale 7-10). nitroglycerin 0.[address] 1 5 tablet 0 03/21/20 Discontinued sublingual tablet under 9 19 tabletIndications: the tongue Abdominal pain, as needed unspecified abdominal (after location, Elevated meals). troponin documented as of this encounter (statuses as of 03/21/2019) Active Problems Problem Noted Date Acute on chronic combined systolic and diastolic congestive heart failure 11/2018 PAD (peripheral artery disease) 02/14/2019 Hyperkalemia 02/07/2019 Abdominal pain 01/21/2019 Generalized abdominal pain 01/07/2019 Nonrheumatic aortic valve stenosis 01/06/2019 Pulmonary hypertension 01/06/2019 Bilateral carotid artery disease 01/06/2019 (HFpEF) heart failure with preserved ejection fraction 01/06/2019 Cholecystitis 01/05/2019 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 Overview: Added automatically from request for surgery [id number] Colitis 10/12/2018 E44.0 Moderate protein calorie malnutrition 08/25/2018 Anasarca 08/20/2018 ESRD (end stage renal disease) 08/20/2018 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, macular edema presence unspecified Coronary artery disease involving coronary bypass graft of [place] heart 2016 without angina pectoris Wound, surgical, [...] 01/01/2006 Dermatophytosis 01/01/2006 Overview: ICD10 Diagnosis Term Zigzag Appliquer Utility documented as of this encounter (statuses as of 03/21/2019) Resolved Problems Problem Noted Date Resolved Date [...] retinopathy 12/11/2006 07/09/2013 Overview: ICD10 Diagnosis Term Zigzag Appliquer Utility Type II or unspecified type diabetes mellitus without mention 01/01/2006 of complication, not stated as uncontrolled documented as of this encounter (statuses as of 03/21/2019) Immunizations Name Administration Dates Next Due Influenza [...] Sign Reading Time Taken Comments Blood Pressure 181/63 03/21/2019 8:23 AM CDT Pulse 51 03/21/2019 8:23 AM CDT Temperature - - Respiratory Rate 20 03/21/2019 8:23 AM CDT Oxygen Saturation 96% 03/21/2019 8:23 AM CDT Inhaled Oxygen Concentration - - Weight 54.9 kg (121 lb) 03/21/2019 8:23 AM CDT Height - - Body Mass Index 20.14 03/17/2019 6:16 PM CDT documented in this encounter Progress Notes Lisa Spangler MD - 03/21/2019 8:00 AM CDT CARDIOLOGY CLINIC NOTE 03/21/2019 Reason for Referral/Presenting Complaint: CAD, HFpEF, HTN History of Present Illness: Blaise Quarles is a 78 years old male with PMH of HTN, HLD, DM2, and CKD stage 4, carotid artery disease, and CAD h/o 3 MIs (1999,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 He is a non-compliant patient. Last visit we restarted ASA or lipitor. His BP has been high. Family stated that he feels better with BP in 200s. His activity is very limited by SOB--walks in the house. Has chronic orthopnea. He is undergoing GI endoscopy and angiogram. Lost weight. Recent ECHO showed LVEF 35-40% which has dropped. Smoking history: 1 pack per week for 40-50 years, quit 2009 Alcohol: quit in 2009 Denies any family h/o heart disease. 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 busPIRone 5 mg tablet Take 5 mg [...] 2 (two) times daily. 180 tablet 1 ondansetron (ZOFRAN) 4 mg tablet Take 1 tablet by mouth every 8 (eight) hours as needed for Nausea and Vomiting (N/V). 12 tablet 0 acetaminophen-codeine (TYLENOL-CODEINE #3) 300-30 mg tablet Take 1 tablet by mouth every 6 (six)hours as needed for Pain (scale 4-6) or Pain (scale 7-10) . 20 tablet 0 pantoprazole 40 mg EC tablet Take 1 tablet by mouth daily. 30 tablet 0 amLODIPine 10 mg tablet Take 1 tablet by mouth daily. 90 tablet 0 docusate 100 mg capsule Take 1 capsule by mouth daily. 30 capsule 3 latanoprost 0.005 % ophthalmic drops Place 1 Drop in both eyes every evening. 3 Bottle 2 brinzolamide 1 % ophthalmic suspension drops Place 1 Drop in both eyes 3 ( three) times daily. 10mL 1 clonazePAM 0.5 mg tablet Take 1 tablet by mouth 3 (three) times daily as needed (panic or anxiety attack). (Patient taking differently: Take 1 mg by mouth 2 (two) times daily.) 90 tablet 1 traMADol 50 mg tablet Take 1 tablet by mouth every 6 (six) hours as needed for Pain (scale 4-6).15 tablet 0 terbinafine HCl (LAMISIL AT) 1 % cream Apply to area(s) 2 (two) times daily. 1 Tube 3 NITROGLYCERIN 0.[address] 1 TABLET UNDER THE TONGUE EVERY 5 (FIVE) MINUTES ASNEEDED FOR CHEST PAIN. 75 tablet 0 blood sugar diagnostic (BLOOD GLUCOSE TEST) strip Use daily dx code E11.21 100 Strip 3 Blood-Glucose Meter Kit Use daily dx code E11.21 1 Kit 0 lancets (ONE TOUCH DELICA) 33 gauge Misc Use daily dx code E11.21 100 Each 3 Blood-Glucose Meter Kit Use as directed 1 Kit 0 No current facility-administered medications for this visit. Allergies: Allergies Allergen Reactions Asa [Aspirin] Unknown - See comments Social History: Social History Socioeconomic History Marital status: Spouse [...] Last attempt to quit: 07/08/2009 Years since quittin.7 Smokeless tobacco: Never Used Substance and Sexual Activity Alcohol use: No Drug use: No Sexual activity: Not on file Lifestyle Physical activity: Days per week: Not on file Minutes per session: Not on file Stress: Not on file Relationships Social connections: Talks on phone: Not on file Gets together: Not on file Attends shinto service: Not on file Active member of [...] file Social History Narrative Not on file Review of Systems: (-)=Negative,(+)=Positive General: (-) weight change, (+) fatigue, (+) weakness, (-) fever, (-) chills. Heme: (-) easy bruising/ bleeding, (-) anemia. Endo: (-) heat/cold intolerance, (-) excessive sweating, Resp: (+) shortness of breath, (-) wheezing, (-) cough. Cardio: (-) chest pain, (-) palpitations, (-) syncope, (-) [place], (+) orthopnea, ( -) PND GI: (-) heartburn (-) melena/hematechezia : (-) hematuria, (-) dysuria JOAQUIN: (-) muscle weakness, (-) joint pain Vascular: (-) claudication, (+) edema Psychiatric: (-) depression, (-) anxiety, Physical Examination: BP (!) 181/63 (BP Location: Right arm, Patient Position: Sitting, BP CUFF SIZE: Adult Small) | Pulse 51 | Resp 20 | Wt 121 lb (54.9 kg) | SpO2 96% | BMI 20.14 kg/m General: Well developed, well nourished, no acute distress. Alert and oriented x 4 (person, place, time and situation) HEENT: Normocephalic, atraumatic Neck: Supple, no lymphadenopathy, no JVD, no bruits Lungs: Clear to auscultation bilaterally. No wheezes, rales, rhonchi. Cardio: Distinct S1 and S2, RRR, 2/6 SM Abdomen: Soft, non-tender, non-distended, normo-active bowel sounds. : Not examined. Rectal: Not examined. Extremities: No clubbing, cyanosis. + pitting edema Skin: No rashes. Neuro: No focal deficits. Labs: CBC BMP PT/INR WBC x10^3 (/uL) Date Value 06/13/2014 7.9 WBC (10*3/L) Date Value 03/05/2019 4.42 NA Date Value 03/05/2019 138 mmol/L 06/13/2014 138 MMOL/L No results found for: PT PLT x10^3 (/uL) Date Value 06/13/2014 216 PLT (10*3/L) Date Value 03/05/2019 122 (L) K Date Value 03/05/2019 5.4 mmol/L (H) 06/13/2014 5.4 MMOL/L (H) PT INR (no units) Date Value 01/27/2013 1.1 INR (no units) Date Value 03/05/2019 1.3 HGB Date Value 03/05/2019 12.6 g/dL 06/13/2014 11.5 G/DL (L) BUN Date Value 03/05/2019 36 mg/dL (H) 06/13/2014 33 MG/DL (H) HCT (%) Date Value 03/05/2019 38.0 (L) 06/13/2014 33.2 (L) CREATININE Date Value 03/05/2019 4.08 mg/dL (H) 06/13/2014 1.74 MG/DL (H) LIPID PROFILE GLUCOSE Date Value 03/05/2019 130 mg/dL (H) 06/13/2014 176 MG/DL (H) CHOL Date Value 01/21/2019 114 mg/dL (L) 05/12/2014 141 MG/DL TSH LDL CHOL Date Value 01/21/2019 54 mg/dL 05/12/2014 74 MG/DL TSH Date Value 01/21/2019 8.86 mIU/L (H) 05/12/2014 3.78 uIU/mL CARDIAC ENZYMES HDL CHOL (MG/DL) Date Value 05/12/2014 38 HDL (mg/dL) Date Value 01/21/2019 47 CK (U/L) Date Value 06/13/2014 76 TRIG Date Value 01/21/2019 64 mg/dL 05/12/2014 146 MG/DL LFTs CK-MB (ng/mL) Date Value 06/13/2014 3.1 AST(SGOT) (U/L) Date Value 03/05/2019 32 05/12/2014 26 TROPONIN I (ng/mL) Date Value 03/05/2019 0.050 (H) 06/13/2014 0.020 ALT(SGPT) (U/L) Date Value 03/05/2019 22 05/12/2014 35 No results found for: BNP EK10/22/15: NSR, vent rate 64, possible anterolasteral ischemia, posterior 02/15/2018--Sinus bradycardia, HR 53 bpm, LAE, septal infarct, ST-T abnormality-- lateral ischemia Echocardiogram: 01/26/13: Left Ventricle The left ventricle is normal in size. There is moderate concentric left ventricular hypertrophy. Left ventricular systolic function is normal. Ejection Fraction=50-55%. Diastolic dysfunction. distal inferior, distal septal and apical hypokinesis. 2015 LV: Global LV systolic function is normal. Left ventricular chambersize (by vol index) is normal (male - LVED vol - 34-74ml/m2). Pwjn-la-xwpxxvry concentric LV hypertrophy. LVEFby quantitative assessment is normal (55-60%). The followingsegment(s) appear akinetic: inferior and apical septumand distal anterior septum. Increased (cardiac index 3.5-4.0L/min/m2) cardiac output state at rest is noted. Thebasal inferolateral wall is mildly hypokinetic; other segmentsare hyperkinetic. LA: LA size is mildly enlarged. RV: The right ventricular chamber size and systolic function are withinnormal limits. RA: RA cavity size is normal. AV: Blhc-du-otbykgmi AoV cusp thickening. Mild aortic regurgitation.No evidence of aortic stenosis. AoV cusp mobilityis mildly decreased. MV: Mild MV leaflet thickening. Mild mitral annular calcification. TV: A trace of tricuspid regurgitation. Unable to estimate peak systolicPA pressure; inadequate TR velocity signal. PV: PV is not well visualized. AO: Aortic root size (Sinus of Valsalva diameter) is normal. Pericard: No significant pericardial effusion is visualized. Systemic Veins: The estimated RA pressure by IVC dynamics 11-15 mmHg. Comparison: No prior exam available for comparison. ECHO 12/2018 Ejection Fraction=35-40%. Left ventricular systolic function is moderately reduced. There are regional wall motion abnormalities as specified. The right ventricle is moderately dilated. The right ventricular systolic function is mild to moderately reduced. The left atrium is moderately dilated. There is mild mitral regurgitation. Right ventricular systolic pressure is elevated at 50-55 mmHg. Mild to moderate valvular aortic stenosis. Cardiac Cath: 12/2001: Left Coronary Arteries: The LAD has a long 80% stenosis before the take off of the first branch and extending beyond the take off of D1. There is a 70% stenosis in the distal LAD segment. The OM1 has a90 % ostial stenosis. Right Coronary Arteries: The right coronary artery is dominant. The RCA has luminal irregularities with up to 30% stenosis in the mid segment. Stress Test: 12/2011: Interpretation Summary The study was technically adequate. Abnormal resting wall motion consistent with old infarction. No new stress-induced wall motion abnormalities. Abnormal hypertensive hemodynanmic response. Adequate inotropic response. Adequate chronotropic response. This was a negative stress echocardiogram for inducible ischemic wall motion abnormality. Study may lack sensitivity since images were not obtained at the target heart rate. Carotid duplex 2016 Right Impression 1. There is 50-69% diameter reduction (unable to measure by 2-D) in the internal carotid artery with heterogeneous plaque, a peak velocity of 143/39 cm/sec and an ICA/CCA peak systolic velocity ratio of 1.49. 2. There is non-occluding plaque in the external carotid artery. 3. There is non-occluding plaque in the common carotid artery. 4. The vertebral artery flow is antegrade and normal. 5. The subclavian artery is within normal limits where visualized. 6. The waveforms were consistent with IABP support. Left Impression 1. There is <50% diameter reduction (unable to measure by 2-D) in the internal carotid artery with a peak velocity of 123/29 cm/sec and heterogeneous plaque. 2. There is non-occluding plaque in the external carotid artery. 3. There is non-occluding plaque in the common carotid artery. 4. The vertebral artery flow is antegrade and normal. 5. The subclavian artery is within normal limits where visualized. 6. The waveforms were consistent with IABP support. Conclusions Summary Carotid duplex scanning and color flow imaging were performed bilaterally. The exam was technically difficult and the arteries were not well visualized due to patient body habitus and uncooperative patient. The right internal carotid artery had 50-69% hemodynamically significant stenosis (unable to measure by 2-D) with heterogeneous plaque. The left internal carotid artery had <50% hemodynamically significant stenosis (unable to measure by 2-D) with heterogeneous plaque. The vertebral artery flow was antegrade and normal bilaterally. The subclavian arteries were patent with normal flow bilaterally where visualized. The waveforms were consistent with IABP support. Assessment and Plan ICD-10-CM ICD-9-CM 1. Chronic systolic heart failure I50.22 428.22 2. Preop cardiovascular exam Z01.810 V72.81 3. Coronary artery disease involving [place] coronary artery of [place] heart without angina pectoris I25.10 414.01 4. ESRD (end stage renal disease) on dialysis N18.6 585.6 Z99.2 V45.11 5. PAD (peripheral artery disease) I73.9 443.9 6. Nonrheumatic aortic valve stenosis I35.0 424.1 7. Uncontrolled hypertension I10 401.9 Preop cardiac evaluation--Due to drop in LVEF, h/o CAD s/p CABG, uncontrolled risk factors, will geta Lexiscan nuclear stress test to assess ischemia and the need for LHC. Hypertensive urgency--Chronically elevated. He was made aware of potential complications such as stroke/[place] etc. He said he does not feel well if BP is lowered. Will continue current antihypertensives. He is reluctant to make changes. HFrEF--He has leg edema but he had lost weight. On HD and lasix. CAD--s/p 3-v CABG. No angina. Taking ASA 81 mg daily and lipitor 20 mg daily. ESRD on HD R carotid artery disease RTC 3 months Lisa Spangler MD, [facility] [employer]el Automotive Technician, Division of Cardiology [facility] documented in this encounter Plan of Treatment Date Type Specialty Care Team Description 04/08/2019 Hospital Encounter Ambulatory Surgical Marion Fuller Generalized MD abdominal pain [address] [place] [phone] 04/08/2019 Surgery Surgery Marion Fuller, ARTERIOGRAM [address] [place] [phone] 04/22/2019 Office Visit Internal Medicine Martín Tyler DO [address] [facility] [id number] [place], [place] [address] 06/20/2019 Office Visit Cardiology Lisa Spangler MD [address] [place] [address] [address] [place] [address] [phone] Name Type Priority Associated Diagnoses Order Schedule NM MYOCARDIUM IMAGING Routine Chronic systolic heart Expected: PERFUSION STRESS AND failure 04/04/2019, Expires: REST Preop cardiovascular exam 03/21/2020 Health Maintenance Due Date Last Done Comments [...] of this encounter Implants Implanted Type Area River Tester Device Shelf Model / Serial Identifier Expiration / Lot Date Lens, Faustino #[id number] 24.0d - [id number] LENS Left: Eye Faustino 11/09/2016 [id number] 24.0D / Implanted: Qty: 1 on 02/08/2013 by Matthew Serna MD at [facility] / [id number] - Tray, Faustino Lens (Virtual) - 1 - Lens, Faustino #[id number] 24.0d LENS Right: Faustino 01/06/2018 [id number] 24.0D / Implanted: Qty: 1 on 03/08/2013 at [facility] Eye [id number] / documented as of this encounter Results Not on filedocumented in this encounter Visit Diagnoses Diagnosis Chronic systolic heart failure - Primary Preop cardiovascular exam Pre-operative cardiovascular examination Coronary artery disease involving [place] coronary artery of [place] heart without angina pectoris ESRD (end stage renal disease) on dialysis End stage renal disease PAD (peripheral artery disease) Unspecified disorders of arteries and arterioles Nonrheumatic aortic valve stenosis Aortic valve disorders Uncontrolled hypertension Unspecified essential hypertension documented in this encounter Insurance Payer Benefit Plan / Subscriber ID Effective Dates Phone Address Type Group MEDICARE MEDICARE PART xxxxxxxxxxx 2004-Preskaran [phone] [address] Medicare A & B [address] [id number] [place] [id number] [facility] MEDICAID OF xxxxxxxxx 2011-Tomás [phone] [address] Medicaid [facility] 0 [id number] [place] [address] ([place]) [place] [address] documented as of this encounter Advance Directives Type Date Recorded Patient Incoming Inspector Explanation Advance Directives and Living Will Power of Manager Machine"
--- OUTSIDE RECORDS SUMMARY | 2019-03-23 22:08 | XMS REPORT | Summary of Care ---
:1940 Author Organization [facility] Address [address] [place] [address] Care Team Providers Name Role Phone Amaya Chadwick Service/Team Unavailable Martín Tyler DO Primary Care Provider Dash Jacobson DO Health Services Rn Reason for Visit Reason Comments Follow-up hospital follow up Other ([facility]) Status Reason Specialty Diagnoses / Referred By Referred To Procedures Contact Contact Closed Vascular Surgery Diagnoses Chronic abdominal pain Atherosclerotic vascular disease Keven Zhu, Marion Raygoza, Procedures Discharge Follow-up: Specialty Provider MARION RAYGOZA; 3-5 Days MD JAY [address] [place] [id number] [place] [phone] Phone: Encounter Details Date Type Department Care Team Description 03/18/2019 Office Visit [facility] Vascular Marion Raygoza, Generalized abdominal Surgery- Ebony JAY pain (Primary Dx) [address] [address] [place], [place] [phone] [address] [phone] Allergies Active Allergy Reactions Severity Noted Date [...] daily. involving coronary bypass graft of [place] heart without angina pectoris, Pure hypercholesterolemia hydrALAZINE [...] Overview: Added automatically from request for surgery [id number] Colitis 10/12/2018 E44.0 Moderate protein calorie malnutrition 08/25/2018 Anasarca 08/20/2018 ESRD (end stage renal disease) 08/20/2018 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, macular edema presence unspecified Coronary artery disease involving coronary bypass graft of [place] heart 2016 without angina pectoris Wound, surgical, [...] 01/01/2006 Dermatophytosis 01/01/2006 Overview: ICD10 Diagnosis Term Circular Tank Cooper Utility documented as of this encounter (statuses [...] retinopathy 12/11/2006 07/09/2013 Overview: ICD10 Diagnosis Term Circular Tank Cooper Utility Type II or unspecified type diabetes [...] of chronic mesenteric ischemia. Has appointment with clinical interviewer next Thursday for clearance for EGD by GI. Patient is not a good candidate for open surgical intervention therefore will attempt endovascular stenting after the EGD. Will plan for Thursday04/08/19. Dialysis TTS schedule via permcath. After treatment for the mesenterics, will need to workup for fistula creation as well as claudication symptoms. Marion Raygoza MD, [facility] Vascular Surgery Bolivar Fitch DO - 03/18/2019 [...] IJ permacath for the past 7 months. Does not have permanent dialysis access. Transports with oxygen s/p CABG in 2016. 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 Cardiomegaly is present. Moderate to severe [place] trivessel coronary arterial calcifications are noted along [...] old male with past medical history as above who presents for abdominal painx 3 months. [...] calves after taking more than 4-5 steps. Patient has upcoming cardiology appointment on Thursday for clearance for EGD. Will proceed with mesenteric arteriogram. After treatment ofmesenterics, will need a workup for fistula creation as well as claudication symptoms. Plan -schedule OR for mesenteric arteriogram, possible [...] 03/21/2019 Office Visit Cardiology Lisa Spangler MD [address] [place] [address] [address] [place] [address] 04/22/2019 Office Visit Internal Medicine Martín Tyler DO [address] [facility] [id number] [place] [address] Health Maintenance Due Date Last [...] of this encounter Implants Implanted Type Area Metal Roaster Device Shelf Model / Serial Identifier Expiration / Lot Date Lens, Faustino #Sn60wf 24.0d - [id number] LENS Left: Eye Faustino 11/09/2016 SN60WF 24.0D / Implanted: Qty: 1 on 02/08/2013 by Matthew Serna MD at [facility] / [id number] Log [id number] - Tray, Faustino Lens (Virtual) - 1 - Lens, Faustino #Sn60wf 24.0d LENS Right: Faustino 01/06/2018 SN60WF 24.0D / Implanted: Qty: 1 on 03/08/2013 at [facility] Eye [id number] / documented as of this encounter Results Not on filedocumented in this encounter Visit Diagnoses Diagnosis Generalized abdominal pain - Primary Abdominal pain, generalized documented in this encounter Insurance Payer Benefit Plan / Subscriber ID Effective Dates Phone Address Type Group MEDICARE MEDICARE PART xxxxxxxxxxx 2004-Prese [phone] Medicare A & B 2 [id number] [place] [address] [facility] MEDICAID OF xxxxxxxxx 2011-[place] [phone] [address] Medicaid [facility] 0 [id number] [place] [address] ([place]) [place] [address] documented as of this encounter Advance Directives Type Date Recorded Patient Trimmer And Reinforcer Explanation Advance Directives and Living Will Power of Track Grinder Operator"
--- OUTSIDE RECORDS SUMMARY | 2019-03-23 22:08 | XMS REPORT | Summary of Care ---
:1940 Author Organization [facility] Address [address] [place] [address] Care Team Providers Name Role Phone Amaya Chadwick Service/Team Unavailable Martín Tyler DO Primary Care Provider Dash Jacobson DO Cow Washer Reason for Visit Reason Comments Follow-up hospital follow up Other ([facility]) Status Reason Specialty Diagnoses / Referred By Referred To Procedures Contact Contact Closed Vascular Surgery Diagnoses Chronic abdominal pain Atherosclerotic vascular disease Keven Zhu, Marion Raygoza, Procedures Discharge Follow-up: Specialty Provider MARION RAYGOZA; 3-5 Days MD JAY [address] [place] [id number] [place] [phone] Phone: Encounter Details Date Type Department Care Team Description 03/18/2019 Office Visit [facility] Vascular Marion Raygoza, Generalized abdominal Surgery- Ebony JAY pain (Primary Dx) [address] [address] [place], [place] [phone] [address] [phone] Allergies Active Allergy Reactions Severity Noted Date [...] disease daily. involving coronary bypass graft of [place] heart without angina pectoris, Pure hypercholesterolemia hydrALAZINE [...] Overview: Added automatically from request for surgery [id number] Colitis 10/12/2018 E44.0 Moderate protein calorie malnutrition 08/25/2018 Anasarca 08/20/2018 ESRD (end stage renal disease) 08/20/2018 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, macular edema presence unspecified Coronary artery disease involving coronary bypass graft of [place] heart 2016 without angina pectoris Wound, surgical, [...] 01/01/2006 Dermatophytosis 01/01/2006 Overview: ICD10 Diagnosis Term Provider Relations Representative Utility documented as of this encounter (statuses [...] retinopathy 12/11/2006 07/09/2013 Overview: ICD10 Diagnosis Term Provider Relations Representative Utility Type II or unspecified type diabetes [...] of chronic mesenteric ischemia. Has appointment with transmission superintendent next Thursday for clearance for EGD by GI. Patient is not a good candidate for open surgical intervention therefore will attempt endovascular stenting after the EGD. Will plan for Thursday04/08/19. Dialysis TTS schedule via permcath. After treatment for the mesenterics, will need to workup for fistula creation as well as claudication symptoms. 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 Cardiomegaly is present. Moderate to severe [place] trivessel coronary arterial calcifications are noted along [...] 03/21/2019 Office Visit Cardiology Lisa Spangler MD [address] [place] [address] [address] [place] [address] 04/22/2019 Office Visit Internal Medicine Martín Tyler DO [address] [facility] [id number] [place] [address] Health Maintenance Due Date Last [...] of this encounter Implants Implanted Type Area Lead Dental Assistant Device Shelf Model / Serial Identifier Expiration / Lot Date Lens, Faustino #Sn60wf 24.0d - [id number] LENS Left: Eye Faustino 11/09/2016 SN60WF 24.0D / Implanted: Qty: 1 on 02/08/2013 by Matthew Serna MD at [facility] / [id number] Log [id number] - Tray, Faustino Lens (Virtual) - 1 - Lens, Faustino #Sn60wf 24.0d LENS Right: Faustino 01/06/2018 SN60WF 24.0D / Implanted: Qty: 1 on 03/08/2013 at [facility] Eye [id number] / documented as of this encounter Results Not on filedocumented in this encounter Visit Diagnoses Diagnosis Generalized abdominal pain - Primary Abdominal pain, generalized documented in this encounter Insurance Payer Benefit Plan / Subscriber ID Effective Dates Phone Address Type Group MEDICARE MEDICARE PART xxxxxxxxxxx 2004-Prese [phone] [address] Medicare A & B 2 [id number] [place] [phone] [facility] MEDICAID OF xxxxxxxxx 2011-[place] [phone] [address] Medicaid [facility] 0 [id number] [place] [address] ([place]) [place] [address] documented as of this encounter Advance Directives Type Date Recorded Patient Supervisor Type Photography Explanation Advance Directives and Living Will Power of Trial Management Associate"
--- OUTSIDE RECORDS SUMMARY | 2019-03-23 22:08 | XMS REPORT | Summary of Care ---
:1940 Author Organization [facility] - Health Address [address] [place] [address] Care Team Providers Name Role Phone Farrukh Team Service/Team Unavailable Martín Tyler DO Primary Care Provider Dash Jacobson DO Compugraph Operator Encounter Details Date Type Department Care Team Description 03/21/2019 Orders Only [facility] Doctor Unassigned, No [address] [facility] [place] [place] Name [address] [address] Allergies Active Allergy Reactions Severity Noted Date Comments Aspirin Unknown - See comments 02/07/2019 documented as of this encounter (statuses as of 03/21/2019) Medications Medication Sig Dispensed Refills Start Date [...] disease daily. involving coronary bypass graft of [place] heart without angina pectoris, Pure hypercholesterolemia hydrALAZINE [...] Overview: Added automatically from request for surgery [id number] Colitis 10/12/2018 E44.0 Moderate protein calorie malnutrition 08/25/2018 Anasarca 08/20/2018 ESRD (end stage renal disease) 08/20/2018 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, macular edema presence unspecified Coronary artery disease involving coronary bypass graft of [place] heart 2016 without angina pectoris Wound, surgical, [...] 01/01/2006 Dermatophytosis 01/01/2006 Overview: ICD10 Diagnosis Term Floor Service Worker [place] Utility documented as of this encounter (statuses [...] retinopathy 12/11/2006 07/09/2013 Overview: ICD10 Diagnosis Term Floor Service Worker [place] Utility Type II or unspecified type diabetes [...] Surgical Marion Fuller Generalized MD abdominal pain [address] [place] [phone] 04/08/2019 Surgery Surgery Marion Fuller, ARTERIOGRAM [address] [place] [phone] 04/22/2019 Office Visit Internal Medicine Martín Tyler, DO [address] [facility] [id number] [place], [place] 011[address] Health Maintenance Due Date Last Done Comments [...] of this encounter Implants Implanted Type Area Corporate Specialist Device Shelf Model / Serial Identifier Expiration / Lot Date Lens, Faustino #Sn60wf 24.0d - [id number] LENS Left: Eye Faustino 11/09/2016 SN60WF 24.0D / Implanted: Qty: 1 on 02/08/2013 by Matthew Serna MD at [facility] / [id number] Log [id number] - Tray, Faustino Lens (Virtual) - 1 - Lens, Faustino #Sn60wf 24.0d LENS Right: Faustino 01/06/2018 SN60WF 24.0D / Implanted: Qty: 1 on 03/08/2013 at [facility] Eye [id number] / documented as of this encounter Procedures Procedure Name Priority Date/Time Associated Diagnosis Comments ASSIGNMENT OF BENEFITS Routine 03/21/2019 8:11 AM CDT documented in this encounter Results Not on filedocumented in this encounter Insurance Payer Benefit Plan / Subscriber ID Effective Dates Phone Address Type Group MEDICARE MEDICARE PART xxxxxxxxxxx 2004-Carol [phone] [address] Medicare A & B nt 2 [id number] [place] [id number] [facility] MEDICAID OF xxxxxxxxx 2011-Tomás [phone] [address] Medicaid [place] t 0 [id number] [place] [address] documented as of this encounter Advance Directives Type Date Recorded Patient Teachers Aide Explanation Advance Directives and Living Will Power of Correctional Captain
--- OUTSIDE RECORDS SUMMARY | 2019-03-23 22:09 | XMS REPORT | Summary of Care ---
:1940 Author Organization [facility] - Health Address [address] [place] [address] Care Team Providers Name Role Phone Amaya Chadwick Service/Team Unavailable Martín Tyler DO Primary Care Provider Dash Jacobson DO Beekeeper Farmer Reason for Visit Reason Comments Abdominal Pain Auth/Cert Status Reason Specialty Diagnoses / Referred By Referred To Procedures Contact Contact Emergency Medicine [facility] [address] [place] [address] [place] [address] Encounter Details Date Type Department Care Team Description 03/23/2019 Emergency [facility]-Emer[facility] Darnell Jara MD Abdominal pain, unspecified abdominal location (Primary Dx); Department [address] [place] [address] Chronic abdominal pain [address] [place] [address] [address] [place] [address] [place], [place] [id number] Allergies Active Allergy Reactions Severity Noted Date Comments Aspirin Unknown - See comments 02/07/2019 documented as of this encounter (statuses as of 03/23/2019) Medications Medication Sig Dispensed Refills Start Date [...] by mouth Constipation, unspecified daily. constipation type terbinafine HCl (LAMISIL Apply to 1 Tube [...] tabletIndications: by mouth Generalized abdominal pain daily. ondansetron (ZOFRAN) 4 mg Take 1 tablet [...] disease daily. involving coronary bypass graft of [place] heart without angina pectoris, Pure hypercholesterolemia hydrALAZINE 50 mg Take 1 tablet 180 tablet 1 02/17/2019 Active tabletIndications: by mouth 2 Abdominal pain in male (two) times daily. clopidogrel 75 mg tablet Take 75 mg by 0 Active mouth daily. busPIRone 5 mg tablet Take 5 mg by 0 Active mouth 2 (two) times daily. furosemide 80 mg tablet Take 80 mg by 0 Active mouth daily. ramipril 5 mg capsule Take 5 mg by 0 Active mouth daily. carvedilol 12.5 mg tablet Take 12.5 mg 0 Active by mouth 2 (two) times daily with meals. amLODIPine 10 mg tablet Take 1 tablet 90 tablet 0 03/21/2019 Active by mouth daily. documented as of this encounter (statuses as of 03/23/2019) Active Problems Problem Noted Date Acute on chronic combined systolic and diastolic congestive heart failure 11/2018 PAD (peripheral artery disease) 02/14/2019 Hyperkalemia 02/07/2019 Abdominal pain 01/21/2019 Generalized abdominal pain 01/07/2019 Nonrheumatic aortic valve stenosis 01/06/2019 Pulmonary hypertension 01/06/2019 Bilateral carotid artery disease 01/06/2019 (HFpEF) heart failure with preserved ejection fraction 01/06/2019 Cholecystitis 01/05/2019 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 Overview: Added automatically from request for surgery [id number] Colitis 10/12/2018 E44.0 Moderate protein calorie malnutrition 08/25/2018 Anasarca 08/20/2018 ESRD (end stage renal disease) 08/20/2018 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, macular edema presence unspecified Coronary artery disease involving coronary bypass graft of sw[place] heart 2016 without angina pectoris Wound, surgical, [...] 01/01/2006 Dermatophytosis 01/01/2006 Overview: ICD10 Diagnosis Term Armature Winder Helper Repair Utility documented as of this encounter (statuses as of 03/23/2019) Resolved Problems Problem Noted Date Resolved Date [...] retinopathy 12/11/2006 07/09/2013 Overview: ICD10 Diagnosis Term Armature Winder Helper Repair Utility Type II or unspecified type diabetes mellitus without mention 01/01/2006 of complication, not stated as uncontrolled documented as of this encounter (statuses as of 03/23/2019) Immunizations Name Administration Dates Next Due Influenza [...] Sign Reading Time Taken Comments Blood Pressure 132/54 03/23/2019 2:45 PM CDT Pulse 51 03/23/2019 2:45 PM CDT Temperature 36.6 C (97.8 F) 03/23/2019 2:50 PM CDT Respiratory Rate 18 03/23/2019 2:45 PM CDT Oxygen Saturation 93% 03/23/2019 2:45 PM CDT Inhaled Oxygen Concentration - - Weight - - Height - - Body Mass Index - - documented in this encounter Discharge Instructions InstructionsDarnell Jara MD - 03/23/2019 RETURN FOR ANY QUESTIONS OR CONCERNS Today you were seen by Darnell Jara Jr., MD You were seen today for Chief Complaint Patient presents with Abdominal Pain Your ER diagnosis was ICD-10-CM ICD-9-CM 1. Abdominal pain, unspecified abdominal location R10.9 789.00 NO LIFE-THREATENING FINDINGS ON TODAY'S EXAM. YOUR PRESCRIPTIONS : Check out [employer] for medication discounts Medication List ASK your doctor about these medications acetaminophen-codeine 300-30 mg tablet Commonly known as: TYLENOL-CODEINE #3 Take 1 tablet by mouth every 6 (six) hours as needed for Pain (scale 4-6) or Pain (scale 7-10). amLODIPine 10 mg tablet Commonly known as: NORVASC Take 1 tablet by mouth daily. atorvastatin 10 mg tablet Commonly known as: [...] in both eyes 3 (three) times daily. busPIRone 5 mg tablet Commonly known as: BUSPAR carvedilol 12.5 mg tablet Commonly known as: COREG clonazePAM 0.5 mg tablet Commonly known as: KLONOPIN Take 1 tablet by mouth 3 (three) times daily as needed (panic or anxiety attack) . clopidogrel 75 mg tablet Commonly known as: PLAVIX docusate 100 mg capsule Commonly known as: COLACE Take 1 capsule by mouth daily. furosemide 80 mg tablet Commonly known as: LASIX hydrALAZINE 50 mg tablet Commonly known as: [...] PROTONIX Take 1 tablet by mouth daily. ramipril 5 mg capsule Commonly known as: ALTACE terbinafine HCl 1 % cream Commonly known as: LamISIL AT Apply to area(s) 2 (two) times daily. traMADol 50 mg tablet Commonly known as: ULTRAM Take 1 tablet by mouth every 6 (six) hours as needed for Pain (scale 4-6). * This list has 2 medication(s) that are the same as other [...] 1. A PHYSICIAN OF YOUR CHOICE 2. MEDICINE [facility], . LOCATIONS IN [facility] 3. [facility], [address], [place]; [phone] OR, IF YOU WISH TO FOLLOW-UP WITHIN THE [facility], MAY TRY THESE OPTIONS (CLINIC APPOINTMENTS AVAILABLE ON [id number] BASIS): 1. SCHEDULE AN APPOINTMENT ONLINE AT WWW[facility] 2. OR CALL THE [facility] ACCESS CENTER AT OR 3. OR CALL YOUR [facility] PHYSICIAN'S OFFICE DIRECTLY IF YOU ARE ALREADY AN ESTABLISHED [facility] PATIENT. [facility] RETURN TO WORK / SCHOOL EXCSOLITARIO Quarles WAS SEEN IN THE ER AND DISCHARGED 03/23/2019 TODAY, 4:02 PM & May return to Work / [...] ___ No school DARNELL JARA Jr., MD [facility] [address] [place] [address] [place] [address] ### The patient may have been given Narcotic pain medications during their stay in the ED that may show up on a Drug Screen. The hospital discharge paper work will identify these medications. AttachmentsThe following attachments cannot be sent through Care Everywhere.Chronic Pain, Managing (Greek)documented in this encounter Plan of Treatment Date Type Specialty Care Team Description 03/31/2019 Appointment Echocardiograph Lisa Spangler MD [address] [place] [address] [address] [place], [place] [phone] [facility] Cardio Echo 03/31/2019 Appointment Radiology Lisa Spangler MD [address] [place] [address] [address] [place] [address] 03/31/2019 Appointment Radiology Lisa Spangler MD [address] [place] [address] [address] [place], [place] [phone] 03/31/2019 Appointment Radiology Lisa Spangler MD [address] [place] [address] [place] [address] 03/31/2019 Appointment Radiology Lisa Spangler MD [address] [facility] [address] [place] [address] [phone] 04/08/2019 Hospital Encounter Ambulatory Surgical Alina Generalized MD Marion abdominal pain [address] [place] [address] 04/08/2019 Surgery Surgery Alina, ARTERIOGRAM MD [place] [address] [place] [address] 04/22/2019 Office Visit Internal Medicine Martín Tyler, DO 301 [facility] [id number] [place], [place] [phone] 06/20/2019 Office Visit Cardiology Lisa Spangler MD [address] [facility] [address] [place] [phone] Name Type Priority Associated Diagnoses Order Schedule CBC WITH DIFF LAB Routine Abdominal pain, ONCE for 1 Occurrences unspecified abdominal starting 03/23/2019 location until 03/23/2019 COMP. METABOLIC PANEL LAB Routine Abdominal pain, ONCE for 1 Occurrences (94105) unspecified abdominal starting 03/23/2019 location until 03/23/2019 Lactic Acid Whole Blood LAB STAT Abdominal pain, STAT for 1 Occurrences unspecified abdominal starting 03/23/2019 location until 03/23/2019 Lactic Acid Whole Blood LAB Routine Abdominal pain, STAT for 1 Occurrences unspecified abdominal starting 03/23/2019 location LIPASE LAB Routine Abdominal pain, ONCE for 1 Occurrences unspecified abdominal starting 03/23/2019 location until 03/23/2019 URINALYSIS LAB Routine Abdominal pain, ONCE for 1 Occurrences unspecified abdominal starting 03/23/2019 location until 03/23/2019 CBC WITH DIFFERENTIAL LAB Routine Abdominal pain, Once for 1 Occurrences unspecified abdominal starting 03/23/2019 location until 03/23/2019 Health Maintenance Due Date Last Done Comments DTaP,Tdap,and Td Vaccines (1960 Tdap) Zoster Recombinant Vaccine 1991 (SHINGRIX) (1 [...] of this encounter Implants Implanted Type Area Manager Quality Improvement Device Shelf Model / Serial Identifier Expiration / Lot Date Lens, Faustino #Sn60wf 24.0d - [id number] LENS Left: Eye Faustino 11/09/2016 SN60WF 24.0D / Implanted: Qty: 1 on 02/08/2013 by Matthew Serna MD at [facility] / [id number] Log [id number] - Tray, Faustino Lens (Virtual) - 1 - Lens, Faustino #Sn60wf 24.0d LENS Right: Faustino 01/06/2018 SN60WF 24.0D / Implanted: Qty: 1 on 03/08/2013 at [facility] Eye [id number] / documented as of this encounter Procedures Procedure Name Priority Date/Time Associated Diagnosis Comments NOTICE OF PRIVACY Routine 03/23/2019 2:13 PM CDT PRACTICES CONSENT/REFUSAL FOR Routine 03/23/2019 2:12 PM CDT DIAGNOSIS AND TREATMENT documented in this encounter Results Not on filedocumented in this encounter Visit Diagnoses Diagnosis Abdominal pain, unspecified abdominal location - Primary Chronic abdominal pain Abdominal pain, unspecified site documented in this encounter Administered Medications Medication Order MAR Action Action Date Dose Rate Site FENTanyl PF (SUBLIMAZE (PF)) Given 03/23/2019 4:17 PM CDT 25 mcg Right Arm injection 25 mcg 25 mcg, Intramuscular, ONCE, 1 dose, 03/23/19 at 1715, STAT documented in this encounter Insurance Payer Benefit Plan / Subscriber ID Effective Dates Phone Address Type Group MEDICARE MEDICARE PART xxxxxxxxxxx 2004-Carol [phone] [address] Medicare A & B 2 [id number] [place] [id number] [facility] MEDICAID OF xxxxxxxxx 2011-Tomás [phone] [address] Medicaid [facility] 0 [id number] [place] [address] ([place]) [place] [address] documented as of this encounter Advance Directives Type Date Recorded Patient Box Office Agent Explanation Advance Directives and Living Will Power of Envelope Patternmaker
--- OUTSIDE RECORDS SUMMARY | 2019-03-23 22:09 | XMS REPORT | Summary of Care ---
:1940 Author Organization [facility] Address [address] [place] [address] Care Team Providers Name Role Phone Farrukh Team Service/Team Unavailable Martín Tyler DO Primary Care Provider Dash Jacobson DO Labor Arbitrator Hearing Office Reason for Visit Reason Comments Refill Request Encounter Details Date Type Department Care Team Description 03/21/2019 Refill [facility] Cardiology- Lisa Spangler MD Refill Request [address] [facility], [address] [place] [address] [place] [address] Allergies Active Allergy Reactions Severity [...] 9 Constipation, mouth daily. unspecified constipation type terbinafine HCl (LAMISIL Apply to [...] mouth daily. involving coronary bypass graft of [place] heart without angina pectoris, Pure hypercholesterolemia hydrALAZINE [...] meals. amLODIPine 10 mg tablet Take 1 90 tablet 0 Active tablet by 9 mouth daily. amLODIPine 10 mg tablet Take 1 90 tablet 0 03/21/20 Discontinued tablet by 9 19 mouth daily. 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, macular edema presence unspecified Coronary artery disease involving coronary bypass graft of [place] heart 2016 without angina pectoris Wound, surgical, [...] 01/01/2006 Dermatophytosis 01/01/2006 Overview: ICD10 Diagnosis Term Sorter Lumber Straightener Utility documented as of this encounter (statuses [...] retinopathy 12/11/2006 07/09/2013 Overview: ICD10 Diagnosis Term Sorter Lumber Straightener Utility Type II or unspecified type diabetes [...] Description 03/31/2019 Appointment Echocardiograph Lisa Spangler MD [address] [place] [address] [phone] Tech, Ad[facility] Cardio Echo 03/31/2019 Appointment Radiology Lisa Spangler MD [address] [place] [address] [phone] 03/31/2019 Appointment Radiology Lisa Spangler MD [address] [place] [address] [phone] 03/31/2019 Appointment Radiology Lisa Spangler MD [address] [place] [address] [phone] 03/31/2019 Appointment Radiology Lisa Spangler MD [address] [place] [address] 995565 04/08/2019 Hospital Encounter Ambulatory Surgical Delfin Fuller MD abdominal pain [address] [place] [phone] 04/08/2019 Surgery Surgery Alina, ARTERIOGRAM MD [place] [address] [place] [phone] 04/22/2019 Office Visit Internal Medicine Martín Tyler, DO 301 [facility] CD3420 [place] [address] [phone] 06/20/2019 Office Visit Cardiology Lisa Spangler MD [address] [place] [address] [phone] Health Maintenance Due Date Last Done Comments [...] of this encounter Implants Implanted Type Area Medication Technician Device Shelf Model / Serial Identifier Expiration / Lot Date Lens, Faustino #Sn60wf 24.0d - [id number] LENS Left: Eye Faustino 11/09/2016 SN60WF 24.0D / Implanted: Qty: 1 on 02/08/2013 by Matthew Serna MD at [facility] / [id number] Log [id number] - Tray, Faustino Lens (Virtual) - 1 - Lens, Faustino #Sn60wf 24.0d LENS Right: Faustino 01/06/2018 SN60WF 24.0D / Implanted: Qty: 1 on 03/08/2013 at [facility] Eye [id number] / documented as of this encounter Results Not on filedocumented in this encounter Insurance Payer Benefit Plan / Subscriber ID Effective Dates Phone Address Type Group MEDICARE MEDICARE PART xxxxxxxxxxx 2004-Preskaran [phone] [address] Medicare A & B 2 [id number] [place] [address] [facility] MEDICAID OF xxxxxxxxx 2011-Tomás [phone] [facility] 0 [id number] [place] [address] documented as of this encounter Advance Directives Type Date Recorded Patient Key Carrier Explanation Advance Directives and Living Will Power of Biometrics Technician
--- OUTSIDE RECORDS SUMMARY | 2019-03-23 22:09 | XMS REPORT | Summary of Care ---
:1940 Author Organization [facility] - [facility] Address [address] [place] [address] Care Team Providers Name Role Phone Amaya Chadwick Service/Team Unavailable Martín Tyler DO Primary Care Provider Dash Jacobson DO Calciner Operator Reason for Referral Radiology Services (Routine) Status Reason Specialty Diagnoses / Referred By Referred To Procedures Contact Contact New Request Diagnostic Diagnoses Chronic systolic heart failure Preop cardiovascular exam Lisa Spangler, Radiology Procedures NM MYOCARDIUM PERFUSION STRESS AND REST [address] [place] [address] [address] [place] [address] Reason for Visit Reason Comments Follow-up Work In/Cardiac Clearance Encounter Details Date Type Department Care Team Description 03/21/2019 Office Visit [facility] Lisa Spangler MD Chronic systolic heart failure (Primary Dx); Cardiology- [address] Preop cardiovascular exam; [address] [place] [address] Coronary artery disease involving [place] coronary artery of [place] heart without angina pectoris; [facility], [address] ESRD (end stage renal disease) on dialysis; [place] [address] PAD (peripheral artery disease); [phone] Nonrheumatic aortic valve stenosis; [phone] Uncontrolled hypertension Allergies Active Allergy Reactions Severity [...] mouth daily. involving coronary bypass graft of [place] heart without angina pectoris, Pure hypercholesterolemia hydrALAZINE [...] Overview: Added automatically from request for surgery [id number] Colitis 10/12/2018 E44.0 Moderate protein calorie malnutrition 08/25/2018 Anasarca 08/20/2018 ESRD (end stage renal disease) 08/20/2018 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, macular edema presence unspecified Coronary artery disease involving coronary bypass graft of [place] heart 2016 without angina pectoris Wound, surgical, [...] 01/01/2006 Dermatophytosis 01/01/2006 Overview: ICD10 Diagnosis Term Swage Toolsetter Utility documented as of this encounter (statuses [...] retinopathy 12/11/2006 07/09/2013 Overview: ICD10 Diagnosis Term Swage Toolsetter Utility Type II or unspecified type diabetes [...] lupus erythematosus Glaucoma NEOVASCULAR HYPERLIPIDEMIA NEC/NOS 09/30/2007 NV (myocardial infarction) 2001 Osteoarthritis Paralytic strabismus, third [...] file Gets together: Not on file Attends confucianism service: Not on file Active member of [...] normal (male - LVED vol - 34-74ml/m2). Zzbh-tn-hyjhcgzo concentric LV hypertrophy. LVEFby quantitative assessment is [...] RA: RA cavity size is normal. AV: Mnud-ij-xbxnvzmk AoV cusp thickening. Mild aortic regurgitation.No evidence [...] Z01.810 V72.81 3. Coronary artery disease involving [place] coronary artery of [place] heart without angina pectoris I25.10 414.01 4. [...] made aware of potential complications such as stroke/NV etc. He said he does not feel well if BP is lowered. Will continue current antihypertensives. He is reluctant to make changes. HFrEF--He has leg edema but he had lost weight. On HD and lasix. CAD--s/p 3-v CABG. No angina. Taking ASA 81 mg daily and lipitor 20 mg daily. ESRD on HD R carotid artery disease RTC 3 months Lisa Spangler MD, [facility] Roller Print Tender, Division of Cardiology [facility] documented in this encounter Plan of Treatment Date Type Specialty Care Team Description 04/08/2019 Hospital Encounter Ambulatory Surgical Marion Fuller Generalized MD abdominal pain [address] [place] [phone] 04/08/2019 Surgery Surgery Marion Fuller, ARTERIOGRAM [address] [place] [phone] 04/22/2019 Office Visit Internal Medicine Martín Tyler DO 301 [facility] IA38[address] [place], [place] [phone] 06/20/2019 Office Visit Cardiology Lisa Spangler MD [address] [place] [address] [address] [place] [address] [phone] Name Type Priority Associated Diagnoses Order Schedule [...] of this encounter Implants Implanted Type Area Axle Polisher Device Shelf Model / Serial Identifier Expiration / Lot Date Lens, Faustino #Sn60wf 24.0d - [id number] LENS Left: Eye Faustino 11/09/2016 SN60WF 24.0D / Implanted: Qty: 1 on 02/08/2013 by Matthew Serna MD at [facility] / [id number] Log [id number] - Tray, Faustino Lens (Virtual) - 1 - Lens, Faustino #Sn60wf 24.0d LENS Right: Faustino 01/06/2018 SN60WF 24.0D / Implanted: Qty: 1 on 03/08/2013 at [facility] Eye [id number] / documented as of this encounter Results Not on filedocumented in this encounter Visit Diagnoses Diagnosis Chronic systolic heart failure - Primary Preop cardiovascular exam Pre-operative cardiovascular examination Coronary artery disease involving [place] coronary artery of [place] heart without angina pectoris ESRD (end stage [...] O. BOX Medicare A & B 2 [id number] [place] [id number] [facility] MEDICAID OF xxxxxxxxx 2011-Tomás [phone] [address] Medicaid [facility] 0 [id number] [place] [address] ([place]) [place] [address] documented as of this encounter Advance Directives Type Date Recorded Patient Food Bagging Machine Operator Explanation Advance Directives and Living Will Power of Toll Lineman"
[2019-03-23] MEDS ORDERED: LORazepam 2 MG/ML VIAL ONE (23:37)
[2019-03-23] MEDS ORDERED: HYDROMORPHONE HCL 0.5 MG/0.5 ML INJ ONE (23:38)
[2019-03-23] MEDS ORDERED: ONDANSETRON 4 MG/2 ML VIAL ONE (23:38)
[2019-03-24 00:54] LABS: Absolute Lymphocytes (CBC) 0.4 K/uL (0.7-4.9); Basophils % 0.8 % (0-1.3); Hematocrit 30.7 % (39.6-49.0); MPV 9.3 fL (7.6-11.3); RBC Red Blood Cell Count 3.19 M/uL (4.33-5.43)
[2019-03-24 01:27] LABS: Potassium 5.5 mmol/L (3.5-5.1)
[2019-03-24 01:31] LABS: Albumin 3.6 g/dL (3.4-5.0)
[2019-03-24 01:42] LABS: Bilirubin Total 0.5 mg/dL (0.2-1.0); Protein, Total 7.1 g/dL (6.4-8.2)
--- NOTE | 2019-03-24 01:42 | ER ---
Nurse's Notes [facility] Name: Blaise Quarles Age: 78 yrs Sex: Male : 1940 Arrival Date: 03/23/2019 Time: 22:08 Bed 8 Private MD: Diagnosis: Abdominal tenderness;End stage renal disease;Hyperkalemia;Other chronic pain-abdominal pain Presentation: 03/23 22:09 Presenting complaint: EMS states: Generalized abdominal pain; Denies any nausea, lp1 vomiting, diarrhea; States seen today at [facility] ER and given pain shot with no relief; Family at bedside states patient has appt. with pain management doctor tomorrow but pain severe tonight. Transition of care: patient was not received from another setting of care. Onset of symptoms was March 23, 2019. Risk Assessment: Do you want to hurt yourself or someone else? Patient reports no desire to harm self or others. Initial Sepsis Screen: Does the patient meet any 2 criteria? No. Patient's initial sepsis screen is negative. Does the patient have a suspected source of infection? No. Patient's initial sepsis screen is negative. Care prior to arrival: Glucose check: 98. 22:09 Method Of Arrival: EMS: [facility] lp1 22:09 Acuity: SARATH 3 lp1 Historical: - Allergies: 22:18 Aspirin; lp1 - Home Meds: 22:18 acetaminophen-codeine 300-30 mg Oral tab 1 tab every 6 hours [Active]; amlodipine 10 mg lp1 tab 1 tab once daily [Active]; atorvastatin 10 mg oral tab 1 tab once daily [Active]; brinzolamide ophthalmic ophthalmic 1 drop 3 times per day [Active]; buspirone 5 mg Oral tab [Active]; carvedilol 12.5 mg Oral tab [Active]; clonazepam 0.5 mg oral tab 1 tab 3 times per day [Active]; Plavix 75 mg Oral tab 1 tab once daily [Active]; docusate sodium 100 mg Oral cap 1 cap once daily [Active]; furosemide 80 mg Oral tab [Active]; hydralazine 50 mg Oral tab 1 tab 2 times per day [Active]; latanoprost 0.005 % ophthalmic drop 1 drop once daily [Active]; nitroglycerin 0.4 mg SL subl 1 tab every 5 minutes [Active]; Zofran (as hydrochloride) 4 mg Oral tab 1 tabs every 8 hours [Active]; pantoprazole 40 mg oral TbEC 1 tab once daily [Active]; ramipril 5 mg Oral cap [Active]; tramadol 50 mg Oral tab 1 tab every 6 hours [Active]; - PMHx: 22:18 Anemia; CAD; cardiomegaly; CHF; chronic renal disease; Cirrhosis; Diabetes - NIDDM; lp1 Dialysis; High Cholesterol; Hypertension; Myocardial infarction; pleural effusion; pulmonary nodule; HD- T/TH/SAT; Blind; - Immunization history:: Adult Immunizations up to date. - Social history:: Smoking status: Patient/guardian denies using tobacco. - Ebola Screening: : No symptoms or risks identified at this time. - Family history:: not pertinent. Screenin/12 00:04 Abuse screen: Denies threats or abuse. Denies injuries from another. Nutritional lp1 screening: No deficits noted. Tuberculosis screening: No symptoms or risk factors identified. Fall Risk Total Parson Fall Scale indicates High Risk Score (45 or more points). Fall prevention measures have been instituted. Side Rails Up X 2 As available patient and family educated on Fall Prevention Program and Strategies. Assessment: 03/23 22:15 General: Appears uncomfortable, Behavior is agitated. Pain: Complains of pain in lp1 abdomen Pain currently is 10 out of 10 on a pain scale. Quality of pain is described as sharp. Neuro: Level of Consciousness is awake, alert, obeys commands, Oriented to person, place. Cardiovascular: Patient's skin is warm and dry. Dialysis shunt: in the right clavicle. Respiratory: Respiratory effort is even, unlabored, Breath sounds are clear bilaterally. GI: Abdomen is non-distended, Bowel sounds present X 4 quads. Abdomen is tender to palpation X 4 quads. : No signs and/or symptoms were reported regarding the genitourinary system. EENT: No signs and/or symptoms were reported regarding the EENT system. Derm: Skin is fragile, is thin, Skin is dry, Skin is normal. Musculoskeletal: No deficits noted. 23:15 Reassessment: No changes from previously documented assessment. lp1 03/24 00:15 Reassessment: Patient and/or family updated on plan of care and expected duration. Pain lp1 level reassessed. Patient states feeling better. Patient states symptoms have improved. 01:15 Reassessment: Patient appears in no apparent distress at this time. Patient and/or lp1 family updated on plan of care and expected duration. Pain level reassessed. Patient states feeling better. Vital Signs: 03/23 22:11 BP 183 / 67; Pulse 51; Resp 18; Temp 97.4(O); Pulse Ox 100% on 2 lpm NC; Weight 54.43 lp1 kg (R); Height 5 ft. 3 in. (160.02 cm); Pain 10/10; 23:30 BP 180 / 69; Pulse 52; Resp 17; Pulse Ox 99% on 2 lpm NC; lp1 03/24 00:04 BP 176 / 68; Pulse 50; Resp 16; Pulse Ox 99% on 2 lpm NC; lp1 00:47 BP 174 / 76; Pulse 55; Resp 17; Pulse Ox 97% on 2 lpm NC; lp1 01:30 BP 181 / 76; Pulse 55; Resp 20; Pulse Ox 98% on 2 lpm NC; lp1 02:00 BP 178 / 69; Pulse 56; Resp 13; Pulse Ox 98% on 2 lpm NC; lp1 03/23 22:11 Body Mass Index 21.26 (54.43 kg, 160.02 cm) lp1 03/23 22:11 Patient uses home O2 lp1 ED Course: 22:08 Patient arrived in ED. lp1 22:11 Triage completed. lp1 22:12 Arm band placed on left wrist. lp1 22:15 Ron Viveros MD is Attending Physician. [facility] 22:15 Patient has correct armband on for positive identification. Placed in gown. Bed in low lp1 position. Call light in reach. Side rails up X2. school lunch monitor on. Pulse ox on. NIBP on. 22:48 Patt Castellano, HUONG is Primary Nurse. lp1 23:20 Missed attempt(s): 22 gauge in right forearm. Missed attempt(s): 22 gauge in right lp1 antecubital area. 23:47 Inserted saline lock: 22 gauge in right forearm, using aseptic technique. fc 23:50 Missed attempt(s): 24 gauge in left hand. Bleeding controlled, band aid applied, ak1 catheter tip intact. 03/24 02:10 No provider procedures requiring assistance completed. IV discontinued, No lp1 redness/swelling at site. Pressure dressing applied. Administered Medications: 03/23 23:50 Drug: Dilaudid 0.5 mg {Note: RASS 1.} Route: IVP; Site: right forearm; lp1 03/24 00:47 Follow up: Response: Pain is decreased; RASS: Alert and Calm (0) lp1 03/23 23:50 Drug: Zofran 4 mg Route: IVP; Site: right forearm; lp1 03/24 00:47 Follow up: Response: No adverse reaction lp1 03/23 23:50 Drug: Ativan 0.5 mg Route: IVP; Site: right forearm; lp1 03/24 00:47 Follow up: Response: No adverse reaction; Marked relief of symptoms lp1 01:56 Drug: Albuterol 5 mg Route: Inhalation; lp1 02:10 Drug: Kayexalate 45 grams Route: PO; lp1 02:15 Follow up: Response: Medication administered at discharge. lp1 02:25 Not Given (Patient denies pain): Dilaudid 0.5 mg IM once; RASS on ADMIN: Combtv4, Very lp1 Agttd3, Agttd2, Rstlss1, AlertClm0, Drwsy-1, Lt Sdtn-2, Mod Sdtn-3, Dp Sdtn-4, UnArsble-5 Outcome: 01:42 Discharge ordered by . [facility] 02:10 Discharged to home via wheelchair, with family. 1 02:10 Condition: good 02:10 Discharge instructions given to patient, family, Instructed on discharge instructions, follow up and referral plans. medication usage, Demonstrated understanding of instructions, follow-up care, medications, Prescriptions given X 3. 02:15 Patient left the ED. lp1 Signatures: Ron Viveros MD MD cha Chretien, Felicia RN RN Patt Stafford RN RN [facility] Sandy Thomas RN RN ak1 Corrections: (The following items were deleted from the chart) 00:47 03/23 23:50 Dilaudid 0.5 mg IVP in right forearm lp1 lp1 03/24 02:33 02:26 Discharged to home via wheelchair, with family, [place] [id number] 02:33 02:26 Condition: good [facility] lp1 02:33 02:26 Discharge instructions given to patient, family, Instructed on discharge lp1 instructions, follow up and referral plans. medication usage, Demonstrated understanding of instructions, follow-up care, medications, Prescriptions given X 3, lp1 :33 02:32 Patient left the ED. lp1 lp1
--- NOTE | 2019-03-24 01:43 | EDPHYS ---
Physician Documentation [facility] Name: Blaise Quarles Age: 78 yrs Sex: Male : 1940 Arrival Date: 03/23/2019 Time: 22:08 Bed 8 Private MD: ED Physician Ron Viveros HPI: 03/23 22:43 This 78 yrs old Male presents to ER via EMS with complaints of Abdominal Pain. yoni 22:43 The patient presents with abdominal pain in the upper abdomen, in the lower abdomen, yoni abdominal distention in the upper abdomen, in the lower abdomen. Onset: The symptoms/episode began/occurred today. The symptoms do not radiate. Associated signs and symptoms: none. The symptoms are described as constant, crampy. Modifying factors: The symptoms are alleviated by remaining still, the symptoms are aggravated by nothing. Severity of pain: At its worst the pain was mild moderate in the emergency department the pain is unchanged. Historical: - Allergies: 22:18 Aspirin; lp1 - Home Meds: 22:18 acetaminophen-codeine 300-30 mg Oral tab 1 tab every 6 hours [Active]; amlodipine 10 mg lp1 tab 1 tab once daily [Active]; atorvastatin 10 mg oral tab 1 tab once daily [Active]; brinzolamide ophthalmic ophthalmic 1 drop 3 times per day [Active]; buspirone 5 mg Oral tab [Active]; carvedilol 12.5 mg Oral tab [Active]; clonazepam 0.5 mg oral tab 1 tab 3 times per day [Active]; Plavix 75 mg Oral tab 1 tab once daily [Active]; docusate sodium 100 mg Oral cap 1 cap once daily [Active]; furosemide 80 mg Oral tab [Active]; hydralazine 50 mg Oral tab 1 tab 2 times per day [Active]; latanoprost 0.005 % ophthalmic drop 1 drop once daily [Active]; nitroglycerin 0.4 mg SL subl 1 tab every 5 minutes [Active]; Zofran (as hydrochloride) 4 mg Oral tab 1 tabs every 8 hours [Active]; pantoprazole 40 mg oral TbEC 1 tab once daily [Active]; ramipril 5 mg Oral cap [Active]; tramadol 50 mg Oral tab 1 tab every 6 hours [Active]; - PMHx: 22:18 Anemia; CAD; cardiomegaly; CHF; chronic renal disease; Cirrhosis; Diabetes - NIDDM; lp1 Dialysis; High Cholesterol; Hypertension; Myocardial infarction; pleural effusion; pulmonary nodule; HD- T/TH/SAT; Blind; - Immunization history:: Adult Immunizations up to date. - Social history:: Smoking status: Patient/guardian denies using tobacco. - Ebola Screening: : No symptoms or risks identified at this time. - Family history:: not pertinent. ROS: 22:43 Constitutional: Negative for fever, chills, and weight loss, Eyes: Negative for injury, yoni pain, redness, and discharge, ENT: Negative for injury, pain, and discharge, Neck: Negative for injury, pain, and swelling, Cardiovascular: Negative for chest pain, palpitations, and edema, Respiratory: Negative for shortness of breath, cough, wheezing, and pleuritic chest pain, Back: Negative for injury and pain, : Negative for injury, bleeding, discharge, and swelling, MS/Extremity: Negative for injury and deformity, Skin: Negative for injury, rash, and discoloration, Neuro: Negative for headache, weakness, numbness, tingling, and seizure, Psych: Negative for depression, anxiety, suicide ideation, homicidal ideation, and hallucinations, Allergy/Immunology: Negative for hives, rash, and allergies, Endocrine: Negative for neck swelling, polydipsia, polyuria, polyphagia, and marked weight changes, Hematologic/Lymphatic: Negative for swollen nodes, abnormal bleeding, and unusual bruising. 22:43 Abdomen/GI: Positive for abdominal pain. Exam: 22:43 Constitutional: This is a well developed, well nourished patient who is awake, alert, yoni and in no acute distress. Head/Face: Normocephalic, atraumatic. Eyes: Pupils equal round and reactive to light, extra-ocular motions intact. Lids and lashes normal. Conjunctiva and sclera are non-icteric and not injected. Cornea within normal limits. Periorbital areas with no swelling, redness, or edema. ENT: Nares patent. No nasal discharge, no septal abnormalities noted. Tympanic membranes are normal and external auditory canals are clear. Oropharynx with no redness, swelling, or masses, exudates, or evidence of obstruction, uvula midline. Mucous membranes moist. Neck: Trachea midline, no thyromegaly or masses palpated, and no cervical lymphadenopathy. Supple, full range of motion without nuchal rigidity, or vertebral point tenderness. No Meningismus. Chest/axilla: Normal chest wall appearance and motion. Nontender with no deformity. No lesions are appreciated. Cardiovascular: Regular rate and rhythm with a normal S1 and S2. No gallops, murmurs, or rubs. Normal PMI, no JVD. No pulse deficits. Respiratory: Lungs have equal breath sounds bilaterally, clear to auscultation and percussion. No rales, rhonchi or wheezes noted. No increased work of breathing, no retractions or nasal flaring. Back: No spinal tenderness. No costovertebral tenderness. Full range of motion. Male : Normal genitalia with no discharge or lesions. Skin: Warm, dry with normal turgor. Normal color with no rashes, no lesions, and no evidence of cellulitis. MS/ Extremity: Pulses equal, no cyanosis. Neurovascular intact. Full, normal range of motion. Neuro: Awake and alert, GCS 15, oriented to person, place, time, and situation. Cranial nerves II-XII grossly intact. Motor strength 5/5 in all extremities. Sensory grossly intact. Cerebellar exam normal. Normal gait. Psych: Awake, alert, with orientation to person, place and time. Behavior, mood, and affect are within normal limits. 22:43 Abdomen/GI: Inspection: distension, Bowel sounds: normal, Palpation: moderate abdominal tenderness, in all quadrants, Liver: no appreciated palpable abnormalities, Hernia: not appreciated. Vital Signs: 22:11 BP 183 / 67; Pulse 51; Resp 18; Temp 97.4(O); Pulse Ox 100% on 2 lpm NC; Weight 54.43 lp1 kg (R); Height 5 ft. 3 in. (160.02 cm); Pain 10/10; 23:30 BP 180 / 69; Pulse 52; Resp 17; Pulse Ox 99% on 2 lpm NC; lp1 09/12 00:04 BP 176 / 68; Pulse 50; Resp 16; Pulse Ox 99% on 2 lpm NC; lp1 00:47 BP 174 / 76; Pulse 55; Resp 17; Pulse Ox 97% on 2 lpm NC; lp1 01:30 BP 181 / 76; Pulse 55; Resp 20; Pulse Ox 98% on 2 lpm NC; 1 02:00 BP 178 / 69; Pulse 56; Resp 13; Pulse Ox 98% on 2 lpm NC; [facility] 03/23 22:11 Body Mass Index 21.26 (54.43 kg, 160.02 cm) [facility] 03/23 22:11 Patient uses home O2 1 MDM: 22:15 Patient medically screened. [facility] 22:43 Data reviewed: vital signs, nurses notes, lab test result(s), EKG. [facility] 03/23 22:42 Order name: CBC with Diff; Complete Time: 01:11 [facility] 03/23 22:42 Order name: Comprehensive Metabolic Panel [facility] 03/23 22:46 Order name: EKG; Complete Time: 22:47 [facility] 03/23 22:46 Order name: EKG - Nurse/Tech; Complete Time: 00:02 [facility] Administered Medications: 23:50 Drug: Dilaudid 0.5 mg {Note: RASS 1.} Route: IVP; Site: right forearm; [facility] 03/24 00:47 Follow up: Response: Pain is decreased; RASS: Alert and Calm (0) [facility] 03/23 23:50 Drug: Zofran 4 mg Route: IVP; Site: right forearm; [facility] 03/24 00:47 Follow up: Response: No adverse reaction [facility] 03/23 23:50 Drug: Ativan 0.5 mg Route: IVP; Site: right forearm; [facility] 03/24 00:47 Follow up: Response: No adverse reaction; Marked relief of symptoms 1 01:56 Drug: Albuterol 5 mg Route: Inhalation; lp1 02:10 Drug: Kayexalate 45 grams Route: PO; 1 02:15 Follow up: Response: Medication administered at discharge. 1 02:25 Not Given (Patient denies pain): Dilaudid 0.5 mg IM once; RASS on ADMIN: Combtv4, Very lp1 Agttd3, Agttd2, Rstlss1, AlertClm0, Drwsy-1, Lt Sdtn-2, Mod Sdtn-3, Dp Sdtn-4, UnArsble-5 Disposition: 03/24/19 01:42 Discharged to Home. Impression: Abdominal tenderness, End stage renal disease, Hyperkalemia, Other chronic pain - abdominal pain. - Condition is Stable. - Discharge Instructions: Abdominal Pain, Adult, Chronic Pain, Hyperkalemia, Hyperkalemia, Arag-du-Lycr, Abdominal Pain, Adult, Bhbm-wt-Rhrs, Dialysis, End-Stage Kidney Disease. - Prescriptions for Bentyl 20 mg Oral Tablet - take 1 tablet by ORAL route every 6 hours As needed; 20 tablet. Pepcid 20 mg Oral Tablet - take 1 tablet by ORAL route every 12 hours for 10 days; 20 tablet. Zofran 4 mg Oral Tablet - take 1 tablet by ORAL route every 12 hours As needed; 20 tablet. - Medication Reconciliation Form, Thank You Letter, Antibiotic Education, Prescription Opioid Use form. - Follow up: Private Physician; When: Today; Reason: Recheck today's complaints, Continuance of care, Re-evaluation by your physician. - Problem is new. - Symptoms have improved. Signatures: Dispatcher [employer] Ron Leo MD MD cha Pena, Laura RN RN lp1 Corrections: (The following items were deleted from the chart) 02:32 01:42 03/24/2019 01:42 Discharged to Home. Impression: Abdominal tenderness; End stage lp1 renal disease; Hyperkalemia; Other chronic pain - abdominal pain. Condition is Stable. Discharge Instructions: Abdominal Pain, Adult, Abdominal Pain, Adult, Yuqk-bo-Wbfs, Dialysis, End-Stage Kidney Disease. Prescriptions for Bentyl 20 mg Oral Tablet - take 1 tablet by ORAL route every 6 hours As needed; 20 tablet, Pepcid 20 mg Oral Tablet - take 1 tablet by ORAL route every 12 hours for 10 days; 20 tablet, Zofran 4 mg Oral Tablet - take 1 tablet by ORAL route every 12 hours As needed; 20 tablet. and Forms are Medication Reconciliation Form, Thank You Letter, Antibiotic Education, Prescription Opioid Use. Follow up: Private Physician; When: Today; Reason: Recheck today's complaints, Continuance of care, Re-evaluation by your physician. Problem is new. Symptoms have improved. yoni
[2019-03-24] MEDS ORDERED: LACTULOSE 20 GM/30 ML UCUP ONE (01:47)
[2019-03-24] MEDS ORDERED: ALBUTEROL 2.5 MG/3 ML NEB SOL ONE (01:47)
[2019-03-24] MEDS ORDERED: SOD POLYSTYREN SUL 15 GM/60 ML UCUP ONE (01:50)
[2019-03-24 02:38] VITALS: TEMP 97.4
[2019-03-24 02:43] VITALS: O2SAT 98
[2019-03-24 02:44] VITALS: BP 178/69
--- NOTE | 2019-03-24 11:09 | EKG ---
Test Date: 2019-03-23 Test Time: 23:54:49 Professor Of Public Administration: URMILA MEASUREMENT RESULTS: Intervals: Rate: 50 MI: 194 QRSD: 92 QT: 484 QTc: 441 [place]: P: 76 MI: 194 QRS: -52 T: 110 INTERPRETIVE STATEMENTS: Sinus bradycardia Left axis deviation Septal infarct, age undetermined Inferior infarct, age undetermined T wave abnormality, consider lateral ischemia Abnormal ECG Compared to ECG 02/27/2019 17:57:33 No significant changes Electronically Signed On 03-24-19 11:06:10 CDT by Brandon Pérez
== END 2019-03-24 02:32 | disposition home or self-care (01) ==
LOC: ER 21:56
DX: N18.6 End stage renal disease (principal); E87.5 Hyperkalemia; G89.29 Other chronic pain; E11.22 Type 2 diabetes mellitus with diabetic chronic kidney disease; I12.0 Hypertensive chronic kidney disease with stage 5 chronic kidney disease or end stage renal disease; Z99.2 Dependence on renal dialysis
CPT/HCPCS: 93005; 85025; 36415; 80053; 96375; 96374; 99285; J1170; J2405

== ENCOUNTER 2019-03-30 17:43 | Emergency (ER) | payer OTHER ==
--- OUTSIDE RECORDS SUMMARY | 2019-03-30 17:46 | XMS REPORT | Clinical Summary ---
:1940 Author Organization [facility] Address [address] [place] [address] Care Team Providers Name Role Phone Moo [...] Not on file Results Not on fileafter 03/29/2018 Insurance Payer Benefit Plan / Group Subscriber ID Type Phone Address MEDICARE MEDICARE A B xxxxxxxxxx Medicare MEDICAID [place]ICAID [place] xxxxxxxxx Medicaid Advance Directives For more information, please contact:[address] [phone] Code Status Date Activated Date Inactivated Comments [...]
--- OUTSIDE RECORDS SUMMARY | 2019-03-30 17:47 | XMS REPORT ---
:1940 [facility] Address [address] [place] [address] Dr. Manley [address] [place] [id number] Care Team Providers Name Role Phone LAZ [...] Comments CULTURE (BEAKER) (test PSEUDOMONAS 70-79,000 col/mL codo=9968) AERUGINOSA Pseudomonas aeruginosa Amikacin (test code=1) Susceptible [...] code=25) Resistant <0 or >4 URINALYSIS W/ [id number] 12:06:00 Test Item Value Reference Range Comments COLOR (BEAKER) (test saql=338) Yellow CLARITY (BEAKER) (test uekh=588) Hazy SPECIFIC GRAVITY UA (BEAKER) (test uihy=246) 1.012 1.001-1.035 PH UA (BEAKER) (test klqe=940) 6.0 5.0-8.0 PROTEIN UA (BEAKER) (test iyis=557) 600 mg/dL Negative GLUCOSE UA (BEAKER) (test ftie=880) 100 mg/dL Negative KETONES UA (BEAKER) (test ojgb=520) Negative Negative BILIRUBIN UA (BEAKER) (test wfxb=226) Negative Negative BLOOD UA (BEAKER) (test fhsh=540) Moderate Negative NITRITE UA (BEAKER) (test roiz=911) Negative Negative LEUKOCYTE ESTERASE UA (BEAKER) (test ksoq=588) Small Negative UROBILINOGEN UA (BEAKER) (test hftm=126) 0.2 mg/dL 0.2-1.0 RBC UA (BEAKER) (test ifox=697) 27 /HPF WBC UA (BEAKER) (test mrfw=471) 12 /HPF BACTERIA (BEAKER) (test bzmf=742) Occasional MUCUS (BEAKER) (test znxj=9829) Rare SQUAMOUS EPITHELIAL (BEAKER) (test ltkv=077) < /HPF HYALINE CASTS (BEAKER) (test tpaj=358) 2 /LPF GRANULAR CASTS (BEAKER) (test gqit=092) 5 /LPF SOURCE(BEAKER) (test wwsd=3005) Urine, Yusuf CT, [id number] 15:15:00Reason for exam:->ABDOMINAL PAINWhat is the patient's [...] Verified Date/ Time: 03/01/2018 15:15:27 Reading Location: [address] Body Reading Room BASI METABOLIC [id number] 11:04:00 Test Item Value Reference Range Comments SODIUM (BEAKER) (test 136 meq/L 136-145 oxtu=427) POTASSIUM (BEAKER) (test 4.0 meq/L 3.5-5.1 kwva=340) CHLORIDE (BEAKER) (test 108 meq/L 98-107 ojyt=551) CO2 (BEAKER) (test 15 meq/L 22-29 ogrj=967) BLOOD UREA NITROGEN 80 mg/dL 7-21 (BEAKER) (test gsnx=479) CREATININE (BEAKER) (test 4.79 mg/dL 0.57-1.25 efvd=018) GLUCOSE RANDOM (BEAKER) 84 mg/dL 70-105 (test dcnz=568) CALCIUM (BEAKER) (test 8.9 mg/dL 8.4-10.2 nmvr=730) EGFR (BEAKER) (test 12 mL/min/1.73 sq m ESTIMATED GFR IS NOT cyho=9032) ACCURATE CREATININE CLEARANCE IN PREDICTING GLOMERULAR FILTRATION RATE. ESTIMATED GFR IS NOT APPLICABLE FOR DIALYSIS PATIENTS. [id number] 11:02:00 Test Item Value Reference Range Comments LIPASE (BEAKER) (test rabe=475) 61 U/L 8-78 [id number] 11:02:00 Test Item Value Reference Range Comments AMYLASE (BEAKER) (test jwdd=535) 113 U/L 25-125 HEPATIC FUNCTION [id number] 11:02:00 Test Item Value Reference Range Comments TOTAL PROTEIN (BEAKER) (test psuu=825) 6.8 gm/dL 6.0-8.3 ALBUMIN (BEAKER) (test jmhz=3099) 3.5 g/dL 3.5-5.0 BILIRUBIN TOTAL (BEAKER) (test nxsx=004) 0.4 mg/dL 0.2-1.2 BILIRUBIN DIRECT (BEAKER) (test bllu=012) 0.2 mg/dL 0.1-0.5 ALKALINE PHOSPHATASE (BEAKER) (test ckse=888) 78 U/L 40-150 AST (SGOT) (BEAKER) (test cdqw=222) 20 U/L 5-34 ALT (SGPT) (BEAKER) (test hcve=145) 21 U/L 6-55 URINALYSIS W/ [id number] 11:01:00 Test Item Value Reference Range Comments COLOR (BEAKER) (test frcb=998) Light Yellow CLARITY (BEAKER) (test rqhb=069) Clear SPECIFIC GRAVITY UA (BEAKER) (test dudg=861) 1.006 1.001-1.035 PH UA (BEAKER) (test ivlt=633) 6.0 5.0-8.0 PROTEIN UA (BEAKER) (test pxvw=577) 300 mg/dL Negative GLUCOSE UA (BEAKER) (test mdab=115) 30 mg/dL Negative KETONES UA (BEAKER) (test rpuw=687) Negative Negative BILIRUBIN UA (BEAKER) (test ueqs=208) Negative Negative BLOOD UA (BEAKER) (test uaww=031) Trace Negative NITRITE UA (BEAKER) (test sghh=925) Negative Negative LEUKOCYTE ESTERASE UA (BEAKER) (test lncz=075) Negative Negative UROBILINOGEN UA (BEAKER) (test hrak=101) 0.2 mg/dL 0.2-1.0 RBC UA (BEAKER) (test wwoq=073) < /HPF WBC UA (BEAKER) (test yohi=999) < /HPF BACTERIA (BEAKER) (test lemu=529) Rare MUCUS (BEAKER) (test nqmu=4781) Rare SOURCE(BEAKER) (test jwzh=9362) Urine, Voided CBC W/PLT COUNT & AUTO [id number] 10:49:00 Test Item Value Reference Range Comments WHITE BLOOD CELL COUNT (BEAKER) (test ogbh=175) 5.6 K/ L 3.5-10.5 RED BLOOD CELL COUNT (BEAKER) (test crxr=242) 3.10 M/ L 4.63-6.08 HEMOGLOBIN (BEAKER) (test wiir=452) 9.8 GM/DL 13.7-17.5 HEMATOCRIT (BEAKER) (test myhr=097) 29.7 % 40.1-51.0 MEAN CORPUSCULAR VOLUME (BEAKER) (test uswy=033) 95.8 fL 79.0-92.2 MEAN CORPUSCULAR HEMOGLOBIN (BEAKER) (test 31.6 pg 25.7-32.2 ihui=168) MEAN CORPUSCULAR HEMOGLOBIN CONC (BEAKER) (test 33.0 GM/DL 32.3-36.5 qfyp=193) RED CELL DISTRIBUTION WIDTH (BEAKER) (test 14.0 % 11.6-14.4 wbee=989) PLATELET COUNT (BEAKER) (test jvci=151) 171 K/CU MM 150-450 MEAN PLATELET VOLUME (BEAKER) (test xozo=208) 11.1 fL 9.4-12.4 NUCLEATED RED BLOOD CELLS (BEAKER) (test 0 /100 WBC 0-0 hgeg=773) NEUTROPHILS RELATIVE PERCENT (BEAKER) (test 69 % lnrf=325) LYMPHOCYTES RELATIVE PERCENT (BEAKER) (test 16 % vpuz=235) MONOCYTES RELATIVE PERCENT (BEAKER) (test 10 % imry=866) EOSINOPHILS RELATIVE PERCENT (BEAKER) (test 4 % xwyv=967) BASOPHILS RELATIVE PERCENT (BEAKER) (test 1 % qklh=193) NEUTROPHILS ABSOLUTE COUNT (BEAKER) (test 3.88 K/ L 1.78-5.38 hdhe=089) LYMPHOCYTES ABSOLUTE COUNT (BEAKER) (test 0.88 K/ L 1.32-3.57 aikh=095) MONOCYTES ABSOLUTE COUNT (BEAKER) (test 0.56 K/ L 0.30-0.82 sibu=034) EOSINOPHILS ABSOLUTE COUNT (BEAKER) (test 0.25 K/ L 0.04-0.54 zmrd=302) BASOPHILS ABSOLUTE COUNT (BEAKER) (test 0.03 K/ L 0.01-0.08 emwf=462) IMMATURE GRANULOCYTES-RELATIVE PERCENT (BEAKER) 0 % 0-1 (test oqks=8482)
--- OUTSIDE RECORDS SUMMARY | 2019-03-30 17:53 | XMS REPORT | Summary of Care ---
:1940 Author Organization [facility] - Health Address [address] [place] [address] Care Team Providers Name Role Phone Amaya Chadwick Service/Team Unavailable Martín Tyler DO Primary Care Provider Dash Jacobson DO Area Counselor Encounter Details Date Type Department Care Team Description 03/16/2019 Orders Only [facility] Doctor Unassigned, No [address] [facility] [place] [address] [address] [place] [address] Allergies Active Allergy Reactions Severity Noted Date Comments Aspirin Unknown - See comments 02/07/2019 documented as of this encounter (statuses as of 03/29/2019) Medications Medication Sig Dispensed Refills Start Date [...] disease daily. involving coronary bypass graft of [place] heart without angina pectoris, Pure hypercholesterolemia hydrALAZINE 50 mg Take 1 tablet 180 tablet 1 02/17/2019 Active tabletIndications: by mouth 2 Abdominal pain in male (two) times daily. documented as of this encounter (statuses as of 03/29/2019) Active Problems Problem Noted Date Acute on chronic combined systolic and diastolic congestive heart failure 11/2018 PAD (peripheral artery disease) 02/14/2019 Hyperkalemia 02/07/2019 Abdominal pain 01/21/2019 Generalized abdominal pain 01/07/2019 Nonrheumatic aortic valve stenosis 01/06/2019 Pulmonary hypertension 01/06/2019 Bilateral carotid artery disease 01/06/2019 (HFpEF) heart failure with preserved ejection fraction 01/06/2019 Cholecystitis 01/05/2019 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 Overview: Added automatically from request for surgery [id number] Colitis 10/12/2018 E44.0 Moderate protein calorie malnutrition 08/25/2018 Anasarca 08/20/2018 ESRD (end stage renal disease) 08/20/2018 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, macular edema presence unspecified Coronary artery disease involving coronary bypass graft of [place] heart 2016 without angina pectoris Wound, surgical, [...] 01/01/2006 Dermatophytosis 01/01/2006 Overview: ICD10 Diagnosis Term Advertising Assistant Manager Utility documented as of this encounter (statuses as of 03/29/2019) Resolved Problems Problem Noted Date Resolved Date [...] retinopathy 12/11/2006 07/09/2013 Overview: ICD10 Diagnosis Term Advertising Assistant Manager Utility Type II or unspecified type diabetes mellitus without mention 01/01/2006 of complication, not stated as uncontrolled documented as of this encounter (statuses as of 03/29/2019) Immunizations Name Administration Dates Next Due Influenza [...] Description 03/31/2019 Appointment Echocardiograph Lisa Spangler MD [address] [place] [address] [place] [address] [phone] Victoriano Daniel Cardio Echo 03/31/2019 Appointment Radiology Lisa Spangler MD [address] [place] [address] [place] [address] [phone] 03/31/2019 Appointment Radiology Lisa Spangler MD [address] [place] [address] [phone] 03/31/2019 Appointment Radiology Lisa Spangler MD [address] [place] [address] [phone] 03/31/2019 Appointment Radiology Lisa Spangler MD [address] [facility] [address] [place], [place] [phone] 04/08/2019 Hospital Encounter Ambulatory Surgical Delfin Fuller MD abdominal pain [address] [place] [phone] 04/08/2019 Surgery Surgery Alina, ARTERIOGRAM MD [place] [address] [place] [phone] 04/22/2019 Office Visit Internal Medicine Martín Tyler DO 301 [facility] [id number] [place], [place] [phone] 06/20/2019 Office Visit Cardiology Lisa Spangler MD [address] [facility] [address] [place] [address] [phone] Health Maintenance Due Date Last Done Comments [...] of this encounter Implants Implanted Type Area Cyber Security Systems Engineer Device Shelf Model / Serial Identifier Expiration / Lot Date Lens, Faustino #[id number] 24.0d - [id number] LENS Left: Eye Faustino 11/09/2016 SN60WF 24.0D / Implanted: Qty: 1 on 02/08/2013 by Matthew Serna MD at [facility] / [id number] - Tray, Faustino Lens (Virtual) - 1 - Lens, Afustino #[id number] 24.0d LENS Right: Faustino 01/06/2018 SN60WF 24.0D / Implanted: Qty: 1 on 03/08/2013 at [facility] Eye [id number] / documented as of this encounter Procedures Procedure Name Priority Date/Time Associated Diagnosis Comments MEDICAL Routine 03/16/2019 12:01 AM CDT RELEASE/CLEARANCE FORMS documented in this encounter Results Not on filedocumented in this encounter Insurance Payer Benefit Plan / Subscriber ID Effective Dates Phone Address Type Group MEDICARE MEDICARE PART xxxxxxxxxxx 2004-Prese [phone] [address] Medicare A & B 2 [id number] [place] [id number] [facility] MEDICAID OF xxxxxxxxx 2011-Presen [phone] [address] Medicaid [facility] [address] [id number] [place] [address] documented as of this encounter Advance Directives Type Date Recorded Patient Communications Administrator Explanation Advance Directives and Living Will Power of Clinical Psychology Teacher
[2019-03-30 19:51] LABS: Absolute Lymphocytes (CBC) 0.4 K/uL (0.7-4.9); Basophils % 0.6 % (0-1.3); Hematocrit 26.9 % (39.6-49.0); MPV 8.1 fL (7.6-11.3); RBC Red Blood Cell Count 2.78 M/uL (4.33-5.43)
--- NOTE | 2019-03-30 20:08 | RAD REPORT ---
EXAM DESCRIPTION: RAD - Chest Single View - 03/30/2019 7:36 pm CLINICAL HISTORY: Left-sided chest pain COMPARISON: February 23 TECHNIQUE: AP portable chest image was obtained 1933 hours . FINDINGS: Lung volumes are low. Interstitial and alveolar opacities are present. Pattern is similar to comparison. Heart size is upper normal. Dialysis catheter is in place. Trachea is midline the pleu ral effusions are present more so on the right. No pneumothorax. Sternotomy wires are in place. No ac celestino bony abnormality seen. No acute aortic findings suspected. IMPRESSION: Shallow inspiration film showing CHF/ volume overload pattern not substantially differen t from February 23.
[2019-03-30 20:09] LABS: Protime INR 1.28
[2019-03-30 20:21] LABS: Albumin 3.1 g/dL (3.4-5.0); Bilirubin Direct 0.3 mg/dL (0-0.2); Bilirubin Total 0.5 mg/dL (0.2-1.0); Magnesium 1.9 mg/dL (1.8-2.4); Potassium 4.8 mmol/L (3.5-5.1); Protein, Total 6.9 g/dL (6.4-8.2)
[2019-03-30 20:23] LABS: Troponin (Emerg Dept Use Only) 1.76 ng/mL (0.0-0.045)
--- NOTE | 2019-03-30 20:52 | EDPHYS ---
Physician Documentation [facility] Name: Blaise Quarles Age: 78 yrs Sex: Male : 1940 Arrival Date: 03/30/2019 Time: 17:51 Bed 6 Private MD: ED Physician Uriel Santos HPI: 03/30 20:41 This 78 yrs old Male presents to ER via EMS with complaints of Chest Pain. gs 20:41 The patient or guardian reports chest pain that is located primarily in the anterior gs chest wall. Onset: today. The pain does not radiate. Associated signs and symptoms: Pertinent positives: shortness of breath. The chest pain is described as a heaviness. Duration: The patient or guardian reports multiple episodes, that are intermittent, that wax and wane, with no pattern. Modifying factors: The symptoms are alleviated by nothing. the symptoms are aggravated by nothing. Severity of pain: At its worst the pain was moderate in the emergency department the pain has improved markedly. The patient has experienced similar episodes in the past, several times. Historical: - Allergies: 18:14 Aspirin; jl7 - PMHx: 18:14 Anemia; BLIND; CAD; cardiomegaly; CHF; Cirrhosis; chronic renal disease; Diabetes - jl7 NIDDM; HD- T//THU; Dialysis; High Cholesterol; Hypertension; Myocardial infarction; pleural effusion; pulmonary nodule; - Immunization history:: Adult Immunizations up to date. - Social history:: The patient lives at home, Smoking status: . - Ebola Screening: : No symptoms or risks identified at this time. ROS: 20:41 All other systems are negative. gs Exam: 20:41 Head/Face: Normocephalic, atraumatic. Eyes: Pupils equal round and reactive to light, gs extra-ocular motions intact. Lids and lashes normal. Conjunctiva and sclera are non-icteric and not injected. Cornea within normal limits. Periorbital areas with no swelling, redness, or edema. ENT: Nares patent. No nasal discharge, no septal abnormalities noted. Tympanic membranes are normal and external auditory canals are clear. Oropharynx with no redness, swelling, or masses, exudates, or evidence of obstruction, uvula midline. Mucous membranes moist. Neck: Trachea midline, no thyromegaly or masses palpated, and no cervical lymphadenopathy. Supple, full range of motion without nuchal rigidity, or vertebral point tenderness. No Meningismus. Chest/axilla: Normal chest wall appearance and motion. Nontender with no deformity. No lesions are appreciated. Cardiovascular: Regular rate and rhythm with a normal S1 and S2. No gallops, murmurs, or rubs. Normal PMI, no JVD. No pulse deficits. Respiratory: Lungs have equal breath sounds bilaterally, clear to auscultation and percussion. No rales, rhonchi or wheezes noted. No increased work of breathing, no retractions or nasal flaring. Abdomen/GI: Soft, non-tender, with normal bowel sounds. No distension or tympany. No guarding or rebound. No evidence of tenderness throughout. 20:41 Back: No spinal tenderness. No costovertebral tenderness. Full range of motion. Skin: Warm, dry with normal turgor. Normal color with no rashes, no lesions, and no evidence of cellulitis. MS/ Extremity: Pulses equal, no cyanosis. Neurovascular intact. Full, normal range of motion. Neuro: Awake and alert, GCS 15, oriented to person, place, time, and situation. Cranial nerves II-XII grossly intact. Motor strength 5/5 in all extremities. Sensory grossly intact. Cerebellar exam normal. Normal gait. 20:41 Constitutional: The patient appears alert, awake. 20:41 Cardiovascular: Heart sounds: murmur, systolic, grade 2 over 6, Edema: 2+ edema to level of left midcalf and right midcalf. 20:41 ECG was reviewed by the Attending Physician. Vital Signs: 18:14 BP 169 / 52; Pulse 52; Resp 16 S; Pulse Ox 99% on 3 lpm NC; jl7 18:51 BP 177 / 65; Pulse 56; Resp 18; Temp 98(O); Pulse Ox 98% on 3 lpm NC; Pain 10/10; jl7 20:00 BP 177 / 67; Pulse 59; Resp 17; Temp 98.1; Pulse Ox 98% on 3 lpm NC; rr5 21:00 BP 165 / 85; Pulse 62; Resp 18; Pulse Ox 99% on 3 lpm NC; rr5 22:00 BP 147 / 77; Pulse 61; Resp 15; Temp 98.1; Pulse Ox 98% on 3 lpm NC; rr5 23:00 BP 175 / 75; Pulse 62; Resp 17; Pulse Ox 98% ; rr5 03/31 00:10 BP 179 / 69; Pulse 60; Resp 17; Temp 99.3; Pulse Ox 98% on 3 lpm NC; Pain 10/10; rr5 00:50 BP 162 / 85; Pulse 61; Resp 17; Temp 99.3; Pulse Ox 100% 3 lpm ; rr5 MDM: 03/30 19:57 Patient medically screened. 20:41 Differential diagnosis: abnormal EKG, acute myocardial infarction, coronary artery gs disease congestive heart failure. Data reviewed: vital signs, nurses notes, lab test result(s), EKG, radiologic studies. 20:53 Counseling: I had a detailed discussion with the patient and/or guardian regarding: lab gs results, radiology results, the need for further work-up and treatment in the hospital. Response to treatment: the patient's symptoms have resolved after treatment, the patient's pain is gone, the patient's condition has returned to base line. 03/31 00:36 ED course: made arrangements for transfer, pt decided doesn't want transfer wants gs discharge from hospital went over risks benefits leaving/transfer, discussed in front of patient daughters all concur want to go home, understand me yenny may . 03/30 19:16 Order name: Basic Metabolic Panel; Complete Time: 20:26 03/30 19:16 Order name: CBC with Diff; Complete Time: 20:23 03/30 19:16 Order name: LFT's; Complete Time: 20:26 03/30 19:16 Order name: Magnesium; Complete Time: 20:26 03/30 19:16 Order name: NT PRO-BNP; Complete Time: 20:26 03/30 19:16 Order name: PT-INR; Complete Time: 20:23 03/30 18:05 Order name: EKG Electrocardiogram EDUT 03/30 19:16 Order name: Troponin (emerg Dept Use Only); Complete Time: 20:26 03/30 19:16 Order name: XRAY Chest (1 view); Complete Time: 20:40 03/30 19:16 Order name: Cardiac monitoring; Complete Time: 19:31 03/30 19:16 Order name: IV Saline Lock; Complete Time: 19:31 03/30 19:16 Order name: Labs collected and sent; Complete Time: : 03/30 19:16 Order name: O2 Per Protocol; Complete Time: 03/30 19:16 Order name: O2 Sat Monitoring; Complete Time: : EC/18 20:41 Rate is 56 beats/min. Rhythm is regular. IA interval is normal. QRS interval is normal. gs QT interval is normal. T waves are Inverted in leads I, aVL. Clinical impression: NSR w/ Non-specific ST/T Changes. Interpreted by me. Administered Medications: 03/31 00:20 Drug: fentaNYL (PF) 50 mcg {Note: rass 0.} Route: IVP; Site: right forearm; rr5 00:50 Follow up: Response: No adverse reaction; RASS: Alert and Calm (0) rr5 Disposition: 03/30 20:41 Critical Care:. Disposition: 03/31/19 00:36 Patient has left against medical advice. Impression: Non-ST elevation (NSTEMI) myocardial infarction, Heart failure. - Patients states they are going to Home. - Condition is Stable. - Discharge Instructions: Non-ST Segment Elevation Heart Attack. Follow up: Private Physician; When: Upon discharge from the Emergency Department. - Problem is new. - Symptoms are unchanged. Critical care time excluding procedures: 20:41 Critical care time: Bedside Care: 10 minutes, Consultation: 10 minutes, Family gs Intervention: 10 minutes. Total time: 30 minutes Signatures: Dispatcher [employer] Erasmo Valle RN RN jl7 Uriel Santos MD MD gs Roque, Raymond, RN RN rr5 Corrections: (The following items were deleted from the chart) 21:18 20:50 Hospitalization Ordered by Myron Mancilla DO for Inpatient Admission. Preliminary gs diagnosis is Non-ST elevation (NSTEMI) myocardial infarction; Heart failure. Bed requested for Telemetry/MedSurg (Inpatient). Status is Inpatient Admission. Condition is Stable. Problem is new. Symptoms have improved. UTI on Admission? No. gs 03/31 00:35 03/30 21:34 03/30/2019 21:34 Transfer ordered to [facility]. Diagnosis is Non-ST gs elevation (NSTEMI) myocardial infarction; Heart failure. Reason for transfer: Higher level of care. Accepting physician is sussy wood [facility]. Condition is Stable. Problem is an acute exacerbation. Symptoms have improved. 03/31 00:50 00:36 03/31/2019 00:36 Patients has left against medical advice. Impression: Non-ST rr5 elevation (NSTEMI) myocardial infarction; Heart failure. Patient states they are going to Home. Condition is Stable. Follow up: Private Physician; When: Upon discharge from the Emergency Department. Problem is new. Symptoms are unchanged. gs
--- NOTE | 2019-03-30 20:52 | ER ---
Nurse's Notes [facility] Name: Blaise Quarles Age: 78 yrs Sex: Male : 1940 Arrival Date: 03/30/2019 Time: 17:51 Bed 6 Private MD: Diagnosis: Non-ST elevation (NSTEMI) myocardial infarction;Heart failure Presentation: 03/30 17:52 Presenting complaint: EMS states: Left sided chest pain, radiates to left shoulder and jl7 back, began at 0300. Transition of care: patient was not received from another setting of care. Onset of symptoms was March 30, 2019 at 03:00. Risk Assessment: Do you want to hurt yourself or someone else? Patient reports no desire to harm self or others. Initial Sepsis Screen: Does the patient meet any 2 criteria? No. Patient's initial sepsis screen is negative. Does the patient have a suspected source of infection? No. Patient's initial sepsis screen is negative. Care prior to arrival: None. 17:52 Method Of Arrival: EMS: [facility] 17:52 Acuity: SARATH 2 jl7 Triage Assessment: 18:49 General: Appears in no apparent distress. uncomfortable, Behavior is calm, cooperative, jl7 appropriate for age. Pain: Complains of pain in anterior aspect of left upper chest Pain radiates to left subscapular area Pain currently is 10 out of 10 on a pain scale. Quality of pain is described as "Pain" Pain began this morning Is continuous. EENT: No signs and/or symptoms were reported regarding the EENT system. Neuro: Level of Consciousness is awake, alert, obeys commands, Oriented to person, place, time, situation. Cardiovascular: Heart tones present Patient's skin is warm and dry. Respiratory: Airway is patent Respiratory effort is even, unlabored, Respiratory pattern is regular, symmetrical. GI: No signs and/or symptoms were reported involving the gastrointestinal system. : No signs and/or symptoms were reported regarding the genitourinary system. Derm: Skin is pink, warm \\T\\ dry. Musculoskeletal: No signs and/or symptoms reported regarding the musculoskeletal system. Historical: - Allergies: 18:14 Aspirin; jl7 - PMHx: 18:14 Anemia; BLIND; CAD; cardiomegaly; CHF; Cirrhosis; chronic renal disease; Diabetes - jl7 NIDDM; HD- T/TH/SAT; Dialysis; High Cholesterol; Hypertension; Myocardial infarction; pleural effusion; pulmonary nodule; - Immunization history:: Adult Immunizations up to date. - Social history:: The patient lives at home, Smoking status: . - Ebola Screening: : No symptoms or risks identified at this time. Screenin:24 Abuse screen: Denies threats or abuse. Denies injuries from another. Nutritional jl7 screening: No deficits noted. Tuberculosis screening: No symptoms or risk factors identified. 19:25 Fall Risk Secondary diagnosis (15 points) blind. IV access (20 points). Gait- Impaired rr5 (20 pts.). Total Parson Fall Scale indicates High Risk Score (45 or more points). Fall prevention measures have been instituted. Side Rails Up X 2 Placed Close to Nursing Station Frequent Obs/Assessments Occuring Family Present and informed to notify staff if the need to leave the bedside As available patient and family educated on Fall Prevention Program and Strategies. Assessment: 19:00 General: Appears in no apparent distress. comfortable, Behavior is calm, cooperative, rr5 appropriate for age. 19:00 Pain: Complains of pain in chest Pain radiates to left shoulder and back. Pain: Pain rr5 currently is 10 out of 10 on a pain scale. Quality of pain is described as aching, Pain began gradually, Is intermittent. Neuro: Level of Consciousness is awake, alert, obeys commands, Oriented to person, place, time, situation, Appropriate for age. Cardiovascular: Reports chest pain, Capillary refill < 3 seconds Patient's skin is warm and dry. right chest HD line.. Respiratory: Airway is patent Respiratory effort is even, unlabored, Respiratory pattern is regular, symmetrical. GI: No signs and/or symptoms were reported involving the gastrointestinal system. : No signs and/or symptoms were reported regarding the genitourinary system. EENT: Parent/caregiver reports the patient having blind. Derm: Skin is intact, Skin temperature is warm. Musculoskeletal: Circulation, motion, and sensation intact. Capillary refill < 3 seconds. 20:24 Reassessment: Critical Lab: Trop 1.76. Notified Dr. Santos. ca1 20:54 Reassessment: hospitalist at bedside. discussing the admission. 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 they want to be transfer in [facility]. 21:30 Reassessment: ED provider is coordinating with [facility], for transfer. rr5 22:00 Reassessment: Patient appears in no apparent distress at this time. Patient is alert, rr5 oriented x 3, equal unlabored respirations, skin warm/dry/pink. call made to [facility] Edy staff nurse informed and accepted the case. 23:00 Reassessment: Patient appears in no apparent distress at this time. Patient is alert, rr5 oriented x 3, equal unlabored respirations, skin warm/dry/pink. 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 awaiting for EMS transport going to [facility]. 03/31 00:00 Reassessment: Patient appears in no apparent distress at this time. eyes closed rr5 breathing spontaneously at room air. 00:10 Reassessment: complaints of chest pain ED provider aware with order made and carried rr5 out. 00:10 Pain: Pain currently is 10 out of 10 on a pain scale. rr5 00:20 Reassessment: [facility] came report given for the transfer. patient refused for rr5 the transfer. ED provider spoke to patient and relative the situation, but the patient opted to go home. AMA form signed. EMS transport cancelled. Vital Signs: 03/30 18:14 BP 169 / 52; Pulse 52; Resp 16 S; Pulse Ox 99% on 3 lpm NC; jl7 18:51 BP 177 / 65; Pulse 56; Resp 18; Temp 98(O); Pulse Ox 98% on 3 lpm NC; Pain 10/10; jl7 20:00 BP 177 / 67; Pulse 59; Resp 17; Temp 98.1; Pulse Ox 98% on 3 lpm NC; rr5 21:00 BP 165 / 85; Pulse 62; Resp 18; Pulse Ox 99% on 3 lpm NC; rr5 22:00 BP 147 / 77; Pulse 61; Resp 15; Temp 98.1; Pulse Ox 98% on 3 lpm NC; rr5 23:00 BP 175 / 75; Pulse 62; Resp 17; Pulse Ox 98% ; rr5 03/31 00:10 BP 179 / 69; Pulse 60; Resp 17; Temp 99.3; Pulse Ox 98% on 3 lpm NC; Pain 10/10; rr5 00:50 BP 162 / 85; Pulse 61; Resp 17; Temp 99.3; Pulse Ox 100% 3 lpm ; rr5 ED Course: 03/30 17:51 Patient arrived in ED. jl7 17:54 Triage completed. jl7 17:54 EKG done, by time study technician. reviewed by Matthew Casiano MD. sm3 18:14 Arm band placed on right wrist. jl7 18:15 Oxygen administration via nasal cannula \\T\\ 3L/min Response to oxygen therapy: symptoms jl7 remain unchanged. 18:15 Patient has correct armband on for positive identification. Bed in low position. Call jl7 light in reach. Side rails up X2. Adult w/ patient. monitoring manager on. Pulse ox on. NIBP on. 18:45 Missed attempt(s): 22 gauge in left forearm. Bleeding controlled, band aid applied, jl7 catheter tip intact. 18:48 Missed attempt(s): 22 gauge in left forearm. Bleeding controlled, band aid applied, jl7 catheter tip intact. 19:08 Uriel Santos MD is Attending Physician. 19:08 Sergio Lora, HUONG is Primary Nurse. rr5 19:30 Inserted saline lock: 22 gauge in right forearm, using aseptic technique. Blood rr5 collected. 19:38 XRAY Chest (1 view) In Process Unspecified. EDMS 20:48 Myron Mancilla DO is Hospitalizing Provider. 03/31 00:40 No provider procedures requiring assistance completed. IV discontinued, intact, No rr5 redness/swelling at site. Administered Medications: 00:20 Drug: fentaNYL (PF) 50 mcg {Note: rass 0.} Route: IVP; Site: right forearm; rr5 00:50 Follow up: Response: No adverse reaction; RASS: Alert and Calm (0) rr5 Outcome: 03/30 20:50 Decision to Hospitalize by Provider. 21:34 ER care complete, transfer ordered by . 03/31 00:40 AMA AMA form signed rr5 Condition: stable Instructed on the need for transfer. 00:50 Patient left the ED. rr5 Signatures: Dispatcher [employer] EDMS Erasmo Mullen RN RN jl7 Uriel Santos MD MD Xochitl Clayton 3 Sergio Lora, HUONG RN rr5 Acob, Dawn, RN RN ca1 Corrections: (The following items were deleted from the chart) 03/30 18:52 18:14 BP 169 / 52; Pulse 52bpm; Resp 16bpm; Spontaneous; Pulse Ox 99% RA; jl7 jl7 22:10 20:00 BP 177 / 67; Pulse 59bpm; Resp 17bpm; Pulse Ox 98%; Temp 98.1F; rr5 rr5
[2019-03-31] MEDS ORDERED: FENTANYL CITR 100 MCG/2 ML ONE (00:21)
[2019-03-31 04:59] VITALS: TEMP 98.1
[2019-03-31 05:02] VITALS: O2SAT 98
[2019-03-31 05:03] VITALS: BP 175/75
--- NOTE | 2019-04-01 10:37 | EKG ---
Test Date: 2019-03-30 Test Time: 17:50:06 Aluminum Siding Mechanic: CHEY MEASUREMENT RESULTS: Intervals: Rate: 56 HI: 184 QRSD: 92 QT: 468 QTc: 451 [place]: P: 79 HI: 184 QRS: -55 T: 137 INTERPRETIVE STATEMENTS: Sinus bradycardia Left axis deviation Anterior infarct, age undetermined ST & T wave abnormality, consider lateral ischemia Abnormal ECG Compared to ECG 03/23/2019 23:54:49 ST (T wave) deviation now present T-wave abnormality no longer present Myocardial infarct finding still present Possible ischemia still present Electronically Signed On 04-01-19 10:32:13 CDT by Brandon Pérez
== END 2019-03-31 00:50 | disposition left against medical advice (07) ==
LOC: ER 17:43
DX: I21.4 Non-ST elevation (NSTEMI) myocardial infarction (principal); I50.9 Heart failure, unspecified; Z53.21 Procedure and treatment not carried out due to patient leaving prior to being seen by health care provider
CPT/HCPCS: 93005; 85025; 80048; 36415; 83735; 85610; 80076; 84484; 83880; 71045; 96374; 99285; J3010

== ENCOUNTER 2019-04-01 21:02 | Emergency (ER) | payer OTHER ==
--- OUTSIDE RECORDS SUMMARY | 2019-04-01 21:04 | XMS REPORT | Clinical Summary ---
:1940 Author Organization [facility] Address [address] [place] [address] Care Team Providers Name Role Phone Moo [...] Not on file Results Not on fileafter 03/31/2018 Insurance Payer Benefit Plan / Group Subscriber ID Type Phone Address MEDICARE MEDICARE A B xxxxxxxxxx Medicare MEDICAID MEDICAID [place] xxxxxxxxx Medicaid Advance Directives For more information, please contact:[address] [phone] Code Status Date Activated Date Inactivated Comments [...]
--- OUTSIDE RECORDS SUMMARY | 2019-04-01 21:05 | XMS REPORT ---
:1940 Author Organization [facility] Address [address] [place] [address] Dr. Man[address] [place] [address] Care Team Providers Name Role Phone LAZRODNEY [...] Comments CULTURE (BEAKER) (test PSEUDOMONAS 70-79,000 col/mL lcxk=3839) AERUGINOSA Pseudomonas aeruginosa Amikacin (test code=1) Susceptible [...] code=25) Resistant <0 or >4 URINALYSIS W/ [id number] 12:06:00 Test Item Value Reference Range Comments COLOR (BEAKER) (test irna=120) Yellow CLARITY (BEAKER) (test gcxh=512) Hazy SPECIFIC GRAVITY UA (BEAKER) (test hiif=680) 1.012 1.001-1.035 PH UA (BEAKER) (test bycb=359) 6.0 5.0-8.0 PROTEIN UA (BEAKER) (test jeth=626) 600 mg/dL Negative GLUCOSE UA (BEAKER) (test zenn=563) 100 mg/dL Negative KETONES UA (BEAKER) (test zyfa=212) Negative Negative BILIRUBIN UA (BEAKER) (test ndoe=022) Negative Negative BLOOD UA (BEAKER) (test ckvz=842) Moderate Negative NITRITE UA (BEAKER) (test quiu=934) Negative Negative LEUKOCYTE ESTERASE UA (BEAKER) (test nurc=316) Small Negative UROBILINOGEN UA (BEAKER) (test tmlj=563) 0.2 mg/dL 0.2-1.0 RBC UA (BEAKER) (test sxkg=021) 27 /HPF WBC UA (BEAKER) (test xmbx=611) 12 /HPF BACTERIA (BEAKER) (test ejka=943) Occasional MUCUS (BEAKER) (test qpdx=7833) Rare SQUAMOUS EPITHELIAL (BEAKER) (test vngf=362) < /HPF HYALINE CASTS (BEAKER) (test kjqq=681) 2 /LPF GRANULAR CASTS (BEAKER) (test hcta=020) 5 /LPF SOURCE(BEAKER) (test uokk=9763) Urine, Yusuf CT, [id number] 15:15:00Reason for exam:->ABDOMINAL PAINWhat is the patient's [...] Date/ Time: 03/01/2018 15:15:27 Reading Location: [address] Body Reading Room BASIC METABOLIC [id number] 11:04:00 Test Item Value Reference Range Comments SODIUM (BEAKER) (test 136 meq/L 136-145 vxbv=837) POTASSIUM (BEAKER) (test 4.0 meq/L 3.5-5.1 tkay=825) CHLORIDE (BEAKER) (test 108 meq/L 98-107 ljdt=863) CO2 (BEAKER) (test 15 meq/L 22-29 ujpo=750) BLOOD UREA NITROGEN 80 mg/dL 7-21 (BEAKER) (test uwpf=375) CREATININE (BEAKER) (test 4.79 mg/dL 0.57-1.25 joes=165) GLUCOSE RANDOM (BEAKER) 84 mg/dL 70-105 (test kyni=610) CALCIUM (BEAKER) (test 8.9 mg/dL 8.4-10.2 tojl=025) EGFR (BEAKER) (test 12 mL/min/1.73 sq m ESTIMATED GFR IS NOT leia=5941) ACCURATE CREATININE CLEARANCE IN PREDICTING GLOMERULAR FILTRATION RATE. ESTIMATED GFR IS NOT APPLICABLE FOR DIALYSIS PATIENTS. [id number] 11:02:00 Test Item Value Reference Range Comments LIPASE (BEAKER) (test kgda=900) 61 U/L 8-78 [id number] 11:02:00 Test Item Value Reference Range Comments AMYLASE (BEAKER) (test cqct=319) 113 U/L 25-125 HEPATIC FUNCTION [id number] 11:02:00 Test Item Value Reference Range Comments TOTAL PROTEIN (BEAKER) (test serp=610) 6.8 gm/dL 6.0-8.3 ALBUMIN (BEAKER) (test ntzr=5127) 3.5 g/dL 3.5-5.0 BILIRUBIN TOTAL (BEAKER) (test raez=410) 0.4 mg/dL 0.2-1.2 BILIRUBIN DIRECT (BEAKER) (test foks=882) 0.2 mg/dL 0.1-0.5 ALKALINE PHOSPHATASE (BEAKER) (test uukl=768) 78 U/L 40-150 AST (SGOT) (BEAKER) (test ssys=684) 20 U/L 5-34 ALT (SGPT) (BEAKER) (test ftbv=114) 21 U/L 6-55 URINALYSIS W/ [id number] 11:01:00 Test Item Value Reference Range Comments COLOR (BEAKER) (test hgny=834) Light Yellow CLARITY (BEAKER) (test axdg=186) Clear SPECIFIC GRAVITY UA (BEAKER) (test iyzl=254) 1.006 1.001-1.035 PH UA (BEAKER) (test etar=175) 6.0 5.0-8.0 PROTEIN UA (BEAKER) (test vhrd=169) 300 mg/dL Negative GLUCOSE UA (BEAKER) (test zmfs=529) 30 mg/dL Negative KETONES UA (BEAKER) (test jpme=603) Negative Negative BILIRUBIN UA (BEAKER) (test yqao=193) Negative Negative BLOOD UA (BEAKER) (test mlqf=660) Trace Negative NITRITE UA (BEAKER) (test lqye=323) Negative Negative LEUKOCYTE ESTERASE UA (BEAKER) (test hdrx=331) Negative Negative UROBILINOGEN UA (BEAKER) (test ltab=464) 0.2 mg/dL 0.2-1.0 RBC UA (BEAKER) (test nuwz=698) < /HPF WBC UA (BEAKER) (test mizv=680) < /HPF BACTERIA (BEAKER) (test acfl=906) Rare MUCUS (BEAKER) (test ujyq=5500) Rare SOURCE(BEAKER) (test bmoc=6946) Urine, Voided CBC W/PLT COUNT & AUTO [id number] 10:49:00 Test Item Value Reference Range Comments WHITE BLOOD CELL COUNT (BEAKER) (test pdgz=043) 5.6 K/ L 3.5-10.5 RED BLOOD CELL COUNT (BEAKER) (test cqet=626) 3.10 M/ L 4.63-6.08 HEMOGLOBIN (BEAKER) (test yaqd=885) 9.8 GM/DL 13.7-17.5 HEMATOCRIT (BEAKER) (test chnk=015) 29.7 % 40.1-51.0 MEAN CORPUSCULAR VOLUME (BEAKER) (test hial=882) 95.8 fL 79.0-92.2 MEAN CORPUSCULAR HEMOGLOBIN (BEAKER) (test 31.6 pg 25.7-32.2 xlpp=873) MEAN CORPUSCULAR HEMOGLOBIN CONC (BEAKER) (test 33.0 GM/DL 32.3-36.5 soto=789) RED CELL DISTRIBUTION WIDTH (BEAKER) (test 14.0 % 11.6-14.4 qaie=333) PLATELET COUNT (BEAKER) (test vmnj=575) 171 K/CU MM 150-450 MEAN PLATELET VOLUME (BEAKER) (test hqas=566) 11.1 fL 9.4-12.4 NUCLEATED RED BLOOD CELLS (BEAKER) (test 0 /100 WBC 0-0 oglb=130) NEUTROPHILS RELATIVE PERCENT (BEAKER) (test 69 % jwdu=463) LYMPHOCYTES RELATIVE PERCENT (BEAKER) (test 16 % dzur=993) MONOCYTES RELATIVE PERCENT (BEAKER) (test 10 % pyaz=079) EOSINOPHILS RELATIVE PERCENT (BEAKER) (test 4 % txto=505) BASOPHILS RELATIVE PERCENT (BEAKER) (test 1 % iesb=002) NEUTROPHILS ABSOLUTE COUNT (BEAKER) (test 3.88 K/ L 1.78-5.38 mxnx=421) LYMPHOCYTES ABSOLUTE COUNT (BEAKER) (test 0.88 K/ L 1.32-3.57 htqb=896) MONOCYTES ABSOLUTE COUNT (BEAKER) (test 0.56 K/ L 0.30-0.82 scik=921) EOSINOPHILS ABSOLUTE COUNT (BEAKER) (test 0.25 K/ L 0.04-0.54 efib=070) BASOPHILS ABSOLUTE COUNT (BEAKER) (test 0.03 K/ L 0.01-0.08 iysh=079) IMMATURE GRANULOCYTES-RELATIVE PERCENT (BEAKER) 0 % 0-1 (test vgjt=9408)
--- OUTSIDE RECORDS SUMMARY | 2019-04-01 21:13 | XMS REPORT | Summary of Care ---
:1940 Author Organization [facility] - Health Address [address] [place] [address] Care Team Providers Name Role Phone Amaya Chadwick Service/Team Unavailable Martín Tyler DO Primary Care Provider Dash Jacobson DO Home Health Provider Encounter Details Date Type Department Care Team Description 03/24/2019 Orders Only [facility] Doctor Unassigned, No [address] [facility] [place] [address] [address] [place] [address] Allergies Active Allergy Reactions Severity Noted Date Comments Aspirin Unknown - See comments 02/07/2019 documented as of this encounter (statuses as of 03/31/2019) Medications Medication Sig Dispensed Refills Start Date [...] disease daily. involving coronary bypass graft of [place]im[place] heart without angina pectoris, Pure hypercholesterolemia hydrALAZINE [...] as of this encounter (statuses as of 03/31/2019) Active Problems Problem Noted Date Acute on chronic combined systolic and diastolic congestive heart failure 11/2018 PAD (peripheral artery disease) 02/14/2019 Hyperkalemia 02/07/2019 Abdominal pain 01/21/2019 Generalized abdominal pain 01/07/2019 Nonrheumatic aortic valve stenosis 01/06/2019 Pulmonary hypertension 01/06/2019 Bilateral carotid artery disease 01/06/2019 (HFpEF) heart failure with preserved ejection fraction 01/06/2019 Cholecystitis 01/05/2019 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 Overview: Added automatically from request for surgery [id number] Colitis 10/12/2018 E44.0 Moderate protein calorie malnutrition 08/25/2018 Anasarca 08/20/2018 ESRD (end stage renal disease) 08/20/2018 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, macular edema presence unspecified Coronary artery disease involving coronary bypass graft of chitimacha heart 2016 without angina pectoris Wound, surgical, [...] 01/01/2006 Dermatophytosis 01/01/2006 Overview: ICD10 Diagnosis Term Electric Vehicle Electrician Utility documented as of this encounter (statuses as of 03/31/2019) Resolved Problems Problem Noted Date Resolved Date [...] retinopathy 12/11/2006 07/09/2013 Overview: ICD10 Diagnosis Term Electric Vehicle Electrician Utility Type II or unspecified type diabetes mellitus without mention 01/01/2006 of complication, not stated as uncontrolled documented as of this encounter (statuses as of 03/31/2019) Immunizations Name Administration Dates Next Due Influenza [...] Marion Fuller Generalized MD abdominal pain [address] [place] [phone] 04/08/2019 Surgery Surgery Marion Fuller, ARTERIOGRAM [address] [place] [phone] 04/22/2019 Office Visit Internal Medicine Martín Tyler, DO 301 [facility] [address] [place], [place] [address] 06/20/2019 Office Visit Cardiology Lisa Spangler MD [address] [place] [address] [address] [place] [address] Health Maintenance Due Date Last Done Comments [...] of this encounter Implants Implanted Type Area Continuous Improvement Facilitator Device Shelf Model / Serial Identifier Expiration / Lot Date Lens, Faustino #Sn60wf 24.0d - [id number] LENS Left: Eye Faustino 11/09/2016 SN60WF 24.0D / Implanted: Qty: 1 on 02/08/2013 by Matthew Serna MD at [facility] / [id number] Log [id number] - Tray, Faustino Lens (Virtual) - 1 - Lens, Faustino #Sn60wf 24.0d LENS Right: Faustino 01/06/2018 SN60WF 24.0D / Implanted: Qty: 1 on 03/08/2013 at [facility] Eye [id number] / documented as of this encounter Procedures Procedure Name Priority Date/Time Associated Diagnosis Comments DME/SUPPLY JUSTIFICATION Routine 03/24/2019 12:01 AM CDT documented in this encounter Results Not on filedocumented in this encounter Insurance Payer Benefit Plan / Subscriber ID Effective Dates Phone Address Type Group MEDICARE MEDICARE PART xxxxxxxxxxx 2004-Prese [phone] [address] Medicare A & B 2 [id number] [place] [address] [facility] MEDICAID OF xxxxxxxxx 2011-Tomás [phone] [address] Medicaid [place] t 0 [id number] [place] [address] documented as of this encounter Advance Directives Type Date Recorded Patient Social Director Explanation Advance Directives and Living Will Power of Contact Center Rep
--- OUTSIDE RECORDS SUMMARY | 2019-04-01 21:13 | XMS REPORT | Summary of Care ---
:1940 Author Organization [facility] - [facility] Address [address] [place] [address] Care Team Providers Name Role Phone Amaya Chadwick Service/Team Unavailable Martín Tyler DO Primary Care Provider Dash Jacobson DO Park Warden Reason for Referral Radiology Services (Routine) Status Reason Specialty Diagnoses / Referred By Referred To Procedures Contact Contact New Request Diagnostic Diagnoses Chronic systolic heart failure Preop cardiovascular exam Lisa Spangler, Radiology Procedures NM MYOCARDIUM PERFUSION STRESS AND REST [address] [place] [address] Radiology Services (Routine) Status Reason Specialty Diagnoses / Referred By Referred To Procedures Contact Contact New Request Diagnostic Diagnoses Chronic systolic heart failure Preop cardiovascular exam Lisa Spangler, Radiology Procedures NM MYOCARDIUM PERFUSION STRESS AND REST [address] [place] [address] [place] [address] Radiology Services (Routine) Status Reason Specialty Diagnoses / Referred By Referred To Procedures Contact Contact Authorized Radiology Diagnoses Chronic systolic heart failure Chronic systolic heart failure Lisa Spangler MD Adc Nuclear Procedures NM MYOCARDIUM PERFUSION STRESS AND REST CHG MYOCARDIAL SPECT MULTIPLE STUDIES MYOCARDIAL SPECT MULTIPLE STUDIES [address] [facility] [address] [place] [phone] Phone: Radiology Services (Routine) Status Reason Specialty Diagnoses / Referred By Referred To Procedures Contact Contact Authorized Radiology Diagnoses Chronic systolic heart failure Chronic systolic heart failure Lisa Spangler MD Adc Nuclear Procedures NM MYOCARDIUM PERFUSION STRESS AND REST CHG MYOCARDIAL SPECT MULTIPLE STUDIES MYOCARDIAL SPECT MULTIPLE STUDIES 146 [facility] [address] [place] [phone] Phone: Reason for Visit Auth/Cert Status Reason Specialty Diagnoses / Procedures Referred By Contact Referred To Contact Radiology Diagnoses Chronic systolic (congestive) heart failure Chronic systolic (congestive) heart failure Adc Nuclear Procedures TX CV STRS TST XERS&/OR RX CONT ECG W/O I&R TX CARDIAC STRESS TST,TRACING ONLY TX CARDIAC STRESS TST,INTERP/REPT ONLY Medicine [address] [place] [address] Encounter Details Date Type Department Care Team Description 03/31/2019 Hospital Encounter [facility] Lisa Spangler MD Canceled (PATIENT Ebony Becerrabury [address] [facility] Nuclear Medicine [address]IVE ) [address] [place] [address] [address] [place] [address] [phone] Allergies Active Allergy Reactions Severity Noted Date Comments Aspirin Unknown - See comments 02/07/2019 documented as of this encounter (statuses as of 04/01/2019) Medications Medication Sig Dispensed Refills Start Date [...] disease daily. involving coronary bypass graft of squaxin heart without angina pectoris, Pure hypercholesterolemia hydrALAZINE [...] as of this encounter (statuses as of 04/01/2019) Active Problems Problem Noted Date Acute on chronic combined systolic and diastolic congestive heart failure 11/2018 PAD (peripheral artery disease) 02/14/2019 Hyperkalemia 02/07/2019 Abdominal pain 01/21/2019 Generalized abdominal pain 01/07/2019 Nonrheumatic aortic valve stenosis 01/06/2019 Pulmonary hypertension 01/06/2019 Bilateral carotid artery disease 01/06/2019 (HFpEF) heart failure with preserved ejection fraction 01/06/2019 Cholecystitis 01/05/2019 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 Overview: Added automatically from request for surgery [id number] Colitis 10/12/2018 E44.0 Moderate protein calorie malnutrition 08/25/2018 Anasarca 08/20/2018 ESRD (end stage renal disease) 08/20/2018 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, macular edema presence unspecified Coronary artery disease involving coronary bypass graft of squaxin heart 2016 without angina pectoris Wound, surgical, [...] 01/01/2006 Dermatophytosis 01/01/2006 Overview: ICD10 Diagnosis Term Pewter Finisher Utility documented as of this encounter (statuses as of 04/01/2019) Resolved Problems Problem Noted Date Resolved Date [...] retinopathy 12/11/2006 07/09/2013 Overview: ICD10 Diagnosis Term Pewter Finisher Utility Type II or unspecified type diabetes mellitus without mention 01/01/2006 of complication, not stated as uncontrolled documented as of this encounter (statuses as of 04/01/2019) Immunizations Name Administration Dates Next Due Influenza [...] Surgical Marion Fuller Generalized MD abdominal pain [address] [place] [phone] 04/08/2019 Surgery Surgery Marion Fuller, ARTERIOGRAM [address] [place] [phone] 04/22/2019 Office Visit Internal Medicine Martín Tyler DO 301 [facility] [address] [place], [place] [phone] 06/20/2019 Office Visit Cardiology Lisa Spangler MD [address] [place] [address] [address] [place] [address] Name Type Priority Associated Diagnoses Order Schedule NM MYOCARDIUM IMAGING Routine Chronic systolic heart 1 Occurrences starting PERFUSION STRESS AND failure 03/31/2019 until REST 03/31/2019 NM MYOCARDIUM IMAGING Routine Chronic systolic heart 1 Occurrences starting PERFUSION STRESS AND failure 03/31/2019 until REST Preop cardiovascular exam 03/31/2019 Health Maintenance Due Date Last Done Comments [...] of this encounter Implants Implanted Type Area Event Promotions Coordinator Device Shelf Model / Serial Identifier Expiration / Lot Date Lens, Faustino #Sn60wf 24.0d - [id number] LENS Left: Eye Faustino 11/09/2016 SN60WF 24.0D / Implanted: Qty: 1 on 02/08/2013 by Matthew Serna MD at [facility] / [id number] Log [id number] - Tray, Faustino Lens (Virtual) - 1 - Lens, Faustino #Sn60wf 24.0d LENS Right: Faustino 01/06/2018 SN60WF 24.0D / Implanted: Qty: 1 on 03/08/2013 at [facility] Eye [id number] / documented as of this encounter Results Not on filedocumented in this encounter Visit Diagnoses Diagnosis Chronic systolic heart failure Preop cardiovascular exam Pre-operative cardiovascular examination documented in this encounter Insurance Payer Benefit Plan / Subscriber ID Effective Dates Phone Address Type Group MEDICARE MEDICARE PART xxxxxxxxxxx 2004-Prese [phone] [address] Medicare A & B 2 [id number] [place] [address] [facility] MEDICAID OF xxxxxxxxx 2011-Presen [phone] [address] Medicaid [place] t 0 [id number] [place] [address] ([place]) [place] [address] documented as of this encounter Advance Directives Type Date Recorded Patient Cancellation Clerk Explanation Advance Directives and Living Will Power of Inspector Penetrant
--- OUTSIDE RECORDS SUMMARY | 2019-04-01 21:13 | XMS REPORT | Summary of Care ---
:1940 Author Organization [facility] - [facility] Address [address] [place] [address] Care Team Providers Name Role Phone Amaya Chadwick Service/Team Unavailable Martín Tyler DO Primary Care Provider Dash Jacobson DO Financial Project Manager Reason for Visit Auth/Cert Status Reason Specialty Diagnoses / Procedures Referred By Contact Referred To Contact Radiology Diagnoses Chronic systolic (congestive) heart failure Chronic systolic (congestive) heart failure Adc Nuclear Procedures CT CV STRS TST XERS&/OR RX CONT ECG W/O I&R CT CARDIAC STRESS TST,TRACING ONLY CT CARDIAC STRESS TST,INTERP/REPT ONLY Medicine [address] [place] [address] [place] [phone] Encounter Details Date Type Department Care Team Description 03/31/2019 Hospital Encounter [facility] Lisa Sandhu MD 146 [facility] [address] [place] [address] [facility] Cardio Echo [address] [place] [address] [place] [address] Allergies Active Allergy Reactions Severity Noted Date [...] disease daily. involving coronary bypass graft of [place] heart without angina pectoris, Pure hypercholesterolemia hydrALAZINE [...] Overview: Added automatically from request for surgery [id number] Colitis 10/12/2018 E44.0 Moderate protein calorie malnutrition 08/25/2018 Anasarca 08/20/2018 ESRD (end stage renal disease) 08/20/2018 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, macular edema presence unspecified Coronary artery disease involving coronary bypass graft of [place] heart 2016 without angina pectoris Wound, surgical, [...] 01/01/2006 Dermatophytosis 01/01/2006 Overview: ICD10 Diagnosis Term Taxation Inspector Utility documented as of this encounter (statuses [...] retinopathy 12/11/2006 07/09/2013 Overview: ICD10 Diagnosis Term Taxation Inspector Utility Type II or unspecified type diabetes [...] Hospital Encounter Ambulatory Surgical Marion Fuller Generalized abdominal pain [address] [place] [phone] 04/08/2019 Surgery Surgery Marion Fuller, ARTERIOGRAM [address] [place] [phone] 04/22/2019 Office Visit Internal Medicine Martín Tyler DO 301 [facility] [address] [place], [place] [phone] 06/20/2019 Office Visit Cardiology Lisa Spangler MD [address] [place] [address] [place] [address] Health Maintenance Due Date Last Done [...] of this encounter Implants Implanted Type Area Nut Sifter Device Shelf Model / Serial Identifier Expiration / Lot Date Lens, Faustino #Sn60wf 24.0d - [id number] LENS Left: Eye Faustino 11/09/2016 SN60WF 24.0D / Implanted: Qty: 1 on 02/08/2013 by Matthew Serna MD at [facility] / [id number] Log [id number] - Tray, Faustino Lens (Virtual) - 1 - Lens, Faustino #Sn60wf 24.0d LENS Right: Faustino 01/06/2018 SN60WF 24.0D / Implanted: Qty: 1 on 03/08/2013 at [facility] Eye [id number] / documented as of this encounter Procedures Procedure Name Priority Date/Time Associated Diagnosis Comments NOTICE OF PRIVACY Routine 03/31/2019 9:26 AM CDT PRACTICES documented in this encounter Results Not on filedocumented in this encounter Insurance Payer Benefit Plan / Subscriber ID Effective Dates Phone Address Type Group MEDICARE MEDICARE PART xxxxxxxxxxx 2004-Prese [phone] [address] Medicare A & B 2 [id number] [place] [address] [facility] MEDICAID OF xxxxxxxxx 2011-Tomás [phone] [address] Medicaid [place] t 0 [id number] [place] [address] (Enigma) [place] [address] documented as of this encounter Advance Directives Type Date Recorded Patient Ranch Cook Explanation Advance Directives and Living Will Power of Air Brake Adjuster
--- OUTSIDE RECORDS SUMMARY | 2019-04-01 21:14 | XMS REPORT | Summary of Care ---
:1940 Author Organization [facility] - Health Address [address] [place] [id number] Care Team Providers Name Role Phone Amaya Chadwick Service/Team Unavailable Martín Tyler DO Primary Care Provider Dash Jacobson DO Link Wire Fabric Machine Tender Reason for Visit Reason Comments Abdominal Pain Auth/Cert Status Reason Specialty Diagnoses / Referred By Referred To Procedures Contact Contact Emergency Medicine Diagnoses ABD PAIN [facility] [address] [place] [address] [place] [address] Encounter Details Date Type Department Care Team Description 04/01/2019 Emergency ADC-Emergency Keven Zhu, Chronic abdominal pain Department (Primary Dx) [address] [place] [address] [address] [place] [address] [id number] [place], [place] [id number] Allergies Active Allergy Reactions Severity Noted Date Comments Aspirin Anxiety, Itching Low 02/07/2019 documented as of this encounter (statuses [...] disease daily. involving coronary bypass graft of rosebud heart without angina pectoris, Pure hypercholesterolemia hydrALAZINE [...] Overview: Added automatically from request for surgery [id number] Colitis 10/12/2018 E44.0 Moderate protein calorie malnutrition 08/25/2018 Anasarca 08/20/2018 ESRD (end stage renal disease) 08/20/2018 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, macular edema presence unspecified Coronary artery disease involving coronary bypass graft of rosebud heart 2016 without angina pectoris Wound, surgical, [...] 01/01/2006 Dermatophytosis 01/01/2006 Overview: ICD10 Diagnosis Term Information Security Engineer Utility documented as of this encounter (statuses [...] retinopathy 12/11/2006 07/09/2013 Overview: ICD10 Diagnosis Term Information Security Engineer Utility Type II or unspecified type diabetes [...] Sign Reading Time Taken Comments Blood Pressure 151/61 04/01/2019 12:02 PM CDT Pulse 52 04/01/2019 12:01 PM CDT Temperature 36.8 C (98.3 F) 04/01/2019 11:56 AM CDT Respiratory Rate 14 04/01/2019 12:02 PM CDT Oxygen Saturation 96% 04/01/2019 12:02 PM CDT Inhaled Oxygen Concentration - - Weight 54.9 kg (121 lb 0.5 oz) 04/01/2019 11:56 AM CDT Height - - Body Mass Index 20.14 03/17/2019 6:16 PM CDT documented in this encounter Discharge Instructions Keven Hennessy MD - 04/01/2019 DIAGNOSIS Diagnoses that have been ruled out: None Diagnoses that are still under consideration: None Final diagnoses: Chronic abdominal pain NO LIFE-THREATENING FINDINGS ON TODAY'S EXAM. PROCEDURES IN THE ER TODAY: No orders of the defined types were placed in this encounter. MEDICATIONS ADMINISTERED IN THE ER TODAY AND DISCHARGE MEDICATIONS: Orders Placed This Encounter Medications HYDROcodone-acetaminophen (NORCO) 10-325 mg tablet 1 tablet FOLLOW-UP RECOMMENDATIONS: RECOMMEND FOLLOW-UP WITH YOUR PRIMARY CARE PROVIDER OR VASCULAR SPECIALIST DISCUSSED MAY FOLLOW-UP WITH A PROVIDER OF YOUR CHOICE, SUCH : 1. A PHYSICIAN OF YOUR CHOICE 2. [facility], . LOCATIONS IN [facility] 3. [facility], [address] [place] [address]; OR, IF YOU WISH TO FOLLOW-UP WITHIN THE [facility], MAY TRY THESE OPTIONS (CLINIC APPOINTMENTS AVAILABLE ON [id number] BASIS): 1. SCHEDULE AN APPOINTMENT ONLINE AT [facility] 2. OR CALL THE [facility] ACCESS CENTER AT OR 3. OR CALL YOUR [facility] PHYSICIAN'S OFFICE DIRECTLY IF YOU ARE ALREADY AN ESTABLISHED [facility] PATIENT. RETURN TO ER FOR WORSENING OF SYMPTOMS documented in this encounter Plan of Treatment Date Type Specialty Care Team Description 04/08/2019 Hospital Encounter Ambulatory Marion Fuller Generalized Surgical abdominal pain [address] [place] [id number] 04/08/2019 Anesthesia Event Surgery Heyd Tineo, HUONG [address] [place] [id number] 04/08/2019 Surgery Surgery Marion Fuller, ARTERIOGRAM [address] [place] [phone] 04/19/2019 Appointment Radiology Lisa Spangler MD [address] [place] [address] 04/19/2019 Appointment Radiology Lisa Spangler MD [address] [place] [address] 04/19/2019 Appointment Radiology Lisa Spangler MD [address] [place] [address] 04/19/2019 Appointment Radiology Lisa Spangler MD [address] [place] [address] 04/22/2019 Office Visit Internal Medicine Martín Tyler, DO [address] [place] [address] [id number] [place] [address] [phone] 06/20/2019 Office Visit Cardiology Lisa Spangler MD [address] [place] [phone] Health Maintenance Due Date Last Done Comments [...] of this encounter Implants Implanted Type Area Dry Cleaning Counter Clerk Device Shelf Model / Serial Identifier Expiration / Lot Date Lens, Faustino #[id number] 24.0d - [id number] LENS Left: Eye Faustino 11/09/2016 SN60WF 24.0D / Implanted: Qty: 1 on 02/08/2013 by Matthew Serna MD at [facility] / [id number] - Tray, Faustino Lens (Virtual) - 1 - Lens, Faustino #[id number] 24.0d LENS Right: Faustino 01/06/2018 [id number] 24.0D / Implanted: Qty: 1 on 03/08/2013 at [facility] Eye [id number] / documented as of this encounter Results Not on filedocumented in this encounter Visit Diagnoses Diagnosis Chronic abdominal pain - Primary Abdominal pain, unspecified site documented in this encounter Administered Medications Medication Order MAR Action Action Date Dose Rate Site HYDROcodone-acetaminophen Given 04/01/2019 12:25 PM CDT 1 tablet (NORCO) 10-325 mg tablet 1 tablet 1 tablet, Oral, ONCE, 1 dose, Thu04/01/19 at 1315, Routine documented in this encounter Insurance Payer Benefit Plan / Subscriber ID Effective Dates Phone Address Type Group MEDICARE MEDICARE PART xxxxxxxxxxx 2004-Carol [phone] [facility] Medicare A & B 2 [id number] [place] [phone] [facility] MEDICAID OF xxxxxxxxx 2011-Tomás [phone] [address] [place] t 0 [id number] [place] [address] ([place]) [place] [address] documented as of this encounter Advance Directives Type Date Recorded Patient Dining Room Coordinator Explanation Advance Directives and Living Will Power of Rubber Attacher
[2019-04-01] MEDS ORDERED: MORPHINE 4 MG/ML SYR ONE (21:58)
[2019-04-01] MEDS ORDERED: ONDANSETRON 4 MG/2 ML VIAL ONE (21:58)
[2019-04-01 22:32] LABS: Absolute Lymphocytes (CBC) 0.4 K/uL (0.7-4.9); Basophils % 0.6 % (0-1.3); Hematocrit 29.3 % (39.6-49.0); Lymphocytes % 9.9 % (15.3-44.8); MPV 8.4 fL (7.6-11.3); Protime INR 1.2; RBC Red Blood Cell Count 3.03 M/uL (4.33-5.43)
[2019-04-01 23:11] LABS: Albumin 3.3 g/dL (3.4-5.0); Bilirubin Direct 0.3 mg/dL (0-0.2); Bilirubin Total 0.6 mg/dL (0.2-1.0); Potassium 4.5 mmol/L (3.5-5.1); Protein, Total 7.1 g/dL (6.4-8.2)
[2019-04-01 23:12] LABS: Troponin (Emerg Dept Use Only) 1.75 ng/mL (0.0-0.045)
--- NOTE | 2019-04-01 23:44 | ER ---
Nurse's Notes [facility] Name: Blaise Quarles Age: 78 yrs Sex: Male : 1940 Arrival Date: 04/01/2019 Time: 21:05 Bed 20 Private MD: Diagnosis: Non-ST elevation (NSTEMI) myocardial infarction Presentation: 04/01 21:09 Presenting complaint: Child states: Reports chest pain, abdominal pain and back pain aj1 that started this morning. He took his pain medication but it isn't working. Denies shortness of breath, palpitations, dizziness. Denies N/V/D. Denies fever. Transition of care: patient was not received from another setting of care. Onset of symptoms was April 01, 2019. Risk Assessment: Do you want to hurt yourself or someone else? Patient reports no desire to harm self or others. Initial Sepsis Screen: Does the patient meet any 2 criteria? No. Patient's initial sepsis screen is negative. Does the patient have a suspected source of infection? No. Patient's initial sepsis screen is negative. Care prior to arrival: None. 21:09 Method Of Arrival: Wheelchair aj1 21:09 Acuity: SARTAH 3 aj1 Triage Assessment: 21:12 General: Appears uncomfortable, Behavior is cooperative, restless. Pain: Complains of aj1 pain in back, chest and abdomen. Neuro: Level of Consciousness is awake, alert, obeys commands. Cardiovascular: Patient's skin is warm and dry. Respiratory: Airway is patent Respiratory effort is even, unlabored, Respiratory pattern is regular, symmetrical. Historical: - Allergies: 21:12 Aspirin; aj1 - Home Meds: 21:12 acetaminophen-codeine 300-30 mg Oral tab 1 tab every 6 hours [Active]; amlodipine 10 mg aj1 tab 1 tab once daily [Active]; atorvastatin 10 mg Oral tab 1 tab once daily [Active]; brinzolamide ophthalmic 1 drop 3 times per day [Active]; buspirone 5 mg Oral tab [Active]; carvedilol 12.5 mg Oral tab [Active]; clonazepam 0.5 mg Oral tab 1 tab 3 times per day [Active]; docusate sodium 100 mg Oral cap 1 cap once daily [Active]; furosemide 80 mg Oral tab [Active]; hydralazine 50 mg Oral tab 1 tab 2 times per day [Active]; latanoprost 0.005 % ophthalmic drop 1 drop once daily [Active]; nitroglycerin 0.4 mg SL subl 1 tab every 5 minutes [Active]; pantoprazole 40 mg Oral TbEC 1 tab once daily [Active]; Plavix 75 mg Oral tab 1 tab once daily [Active]; ramipril 5 mg Oral cap [Active]; tramadol 50 mg Oral tab 1 tab every 6 hours [Active]; Zofran (as hydrochloride) 4 mg Oral tab 1 tabs every 8 hours [Active]; - PMHx: 21:12 Anemia; BLIND; CAD; cardiomegaly; CHF; chronic renal disease; Cirrhosis; Diabetes - aj1 NIDDM; Dialysis; HD- //THU; High Cholesterol; Hypertension; Myocardial infarction; pleural effusion; pulmonary nodule; - Immunization history:: Flu vaccine is not up to date. - Social history:: Smoking status: Patient/guardian denies using tobacco. - Ebola Screening: : Patient denies travel to an Ebola-affected area in the 21 days before illness onset. Screenin:30 Abuse screen: Denies threats or abuse. Denies injuries from another. Nutritional wh screening: No deficits noted. Tuberculosis screening: No symptoms or risk factors identified. Fall Risk None identified. Assessment: 21:30 General: Appears in no apparent distress. Behavior is calm, cooperative, appropriate wh for age. Pain: Complains of pain in abdomen and chest and back Pain does not radiate. Pain currently is 8 out of 10 on a pain scale. Quality of pain is described as aching, Pain began 1 day ago. Neuro: Level of Consciousness is awake, alert, obeys commands, Oriented to person, place, time, situation, Appropriate for age. Cardiovascular: Heart tones S1 S2. Cardiovascular: Edema is 2+ to left ankle and right ankle pitting to left ankle and right ankle Rhythm is sinus bradycardia Dialysis shunt: in the Right Chest wall. Respiratory: Airway is patent Respiratory effort is even, unlabored, Respiratory pattern is regular, symmetrical, Breath sounds are clear bilaterally. GI: Abdomen is flat, non-distended, Bowel sounds present X 4 quads. Abd is soft and non tender. : No signs and/or symptoms were reported regarding the genitourinary system. EENT: No signs and/or symptoms were reported regarding the EENT system. Derm: Skin is intact, is thin, Skin is normal. Musculoskeletal: Circulation, motion, and sensation intact. 23:00 Reassessment: Patient appears in no apparent distress at this time. No changes from previously documented assessment. Patient and/or family updated on plan of care and expected duration. Pain level reassessed. Patient is alert, oriented x 3, equal unlabored respirations, skin warm/dry/pink. 23:15 Reassessment: Critical Lab alert of Troponin 1.75 notified Tim GARCÍA. Vital Signs: 21:12 BP 133 / 56; Pulse 52; Resp 20; Temp 97.8; Pulse Ox 91% on R/A; Pain 10/10; aj1 21:30 BP 155 / 57; Pulse 52; Resp 18; Pulse Ox 96% 2 lpm ; wh 23:00 BP 169 / 57; Pulse 51; Resp 18; Pulse Ox 100% 2 lpm ; ED Course: 21:05 Patient arrived in ED. cl3 21:10 Triage completed. aj1 21:12 Arm band placed on Patient placed in an exam room. aj1 21:15 Mila Segura is Primary Nurse. wh 21:15 Tim Correa NP is PHCP. pm1 21:15 Ron Viveros MD is Attending Physician. pm1 21:30 Patient has correct armband on for positive identification. Placed in gown. Bed in low wh position. Call light in reach. Side rails up X 1. monitoring analyst on. Pulse ox on. NIBP on. 22:10 Missed attempt(s): 22 gauge Bleeding controlled, band aid applied, catheter tip intact. oe 22:16 Inserted saline lock: 22 gauge in left antecubital area, using aseptic technique. Blood oe collected. 22:43 XRAY Chest (1 view) In Process Unspecified. EDMS 04/02 00:09 No provider procedures requiring assistance completed. IV discontinued, intact, bleeding controlled, No redness/swelling at site. Administered Medications: 04/01 22:15 Drug: morphine 4 mg {Note: RASS 0.} Route: IVP; Site: left antecubital; 04/02 00:10 Follow up: Response: No adverse reaction; Pain is decreased; RASS: Alert and Calm (0) 04/01 22:15 Drug: Zofran 4 mg Route: IVP; Site: left antecubital; 04/02 00:10 Follow up: Response: No adverse reaction Outcome: 00:09 AMA AMA form signed 00:09 Condition: good 00:11 Patient left the ED. Signatures: Dispatcher [employer] EDMS Rivka Lyons RN RN aj1 Tim Correa, CROZE MACHINE OPERATOR CROZE MACHINE OPERATOR pm1 Holden Gomez Winsy Ashli Munoz cl3 Corrections: (The following items were deleted from the chart) 04/01 23:03 21:30 BP 155 / 57; Pulse 52bpm; Resp 18bpm; Pulse Ox 96%; [facility]
--- NOTE | 2019-04-01 23:44 | EDPHYS ---
Physician Documentation [facility] Name: Blaise Quarles Age: 78 yrs Sex: Male : 1940 Arrival Date: 04/01/2019 Time: 21:05 Bed 20 Private MD: ED Physician Ron Viveros HPI: 04/01 22:03 This 78 yrs old Male presents to ER via Wheelchair with complaints of Pain All pm1 Over. 22:03 The patient or guardian reports chest pain that is located primarily in the mid-sternal pm1 area. Onset: this morning. The pain does not radiate. Associated signs and symptoms: Pertinent positives: abdominal pain. 22:03 Associated signs and symptoms: Pertinent positives: back pain, Pertinent negatives: pm1 dizziness, headache, nausea, vomiting. The chest pain is described as sharp. Duration: The patient or guardian reports a single episode, that is still ongoing. Severity of pain: in the emergency department the pain is unchanged. The patient has experienced similar episodes in the past, multiple times. The patient has been recently seen at the [facility] Emergency Department, seen two days ago and patient signed out AMA for admission/transfer for a diagnosis of NSTEMI. Historical: - Allergies: 21:12 Aspirin; aj1 - Home Meds: 21:12 acetaminophen-codeine 300-30 mg Oral tab 1 tab every 6 hours [Active]; amlodipine 10 mg aj1 tab 1 tab once daily [Active]; atorvastatin 10 mg Oral tab 1 tab once daily [Active]; brinzolamide ophthalmic 1 drop 3 times per day [Active]; buspirone 5 mg Oral tab [Active]; carvedilol 12.5 mg Oral tab [Active]; clonazepam 0.5 mg Oral tab 1 tab 3 times per day [Active]; docusate sodium 100 mg Oral cap 1 cap once daily [Active]; furosemide 80 mg Oral tab [Active]; hydralazine 50 mg Oral tab 1 tab 2 times per day [Active]; latanoprost 0.005 % ophthalmic drop 1 drop once daily [Active]; nitroglycerin 0.4 mg SL subl 1 tab every 5 minutes [Active]; pantoprazole 40 mg Oral TbEC 1 tab once daily [Active]; Plavix 75 mg Oral tab 1 tab once daily [Active]; ramipril 5 mg Oral cap [Active]; tramadol 50 mg Oral tab 1 tab every 6 hours [Active]; Zofran (as hydrochloride) 4 mg Oral tab 1 tabs every 8 hours [Active]; - PMHx: 21:12 Anemia; BLIND; CAD; cardiomegaly; CHF; chronic renal disease; Cirrhosis; Diabetes - aj1 NIDDM; Dialysis; HD- T//SAT; High Cholesterol; Hypertension; Myocardial infarction; pleural effusion; pulmonary nodule; - Immunization history:: Flu vaccine is not up to date. - Social history:: Smoking status: Patient/guardian denies using tobacco. - Ebola Screening: : Patient denies travel to an Ebola-affected area in the 21 days before illness onset. ROS: 22:03 Constitutional: Negative for fever, chills, and weight loss, Eyes: Negative for injury, pm1 pain, redness, and discharge, ENT: Negative for injury, pain, and discharge, Neck: Negative for injury, pain, and swelling. 22:03 Respiratory: Negative for shortness of breath, cough, wheezing, and pleuritic chest pain. 22:03 : Negative for injury, bleeding, discharge, and swelling, MS/Extremity: Negative for injury and deformity, Skin: Negative for injury, rash, and discoloration, Neuro: Negative for headache, weakness, numbness, tingling, and seizure. 22:03 Cardiovascular: Positive for chest pain, Negative for edema, orthopnea, palpitations. 22:03 Abdomen/GI: Positive for abdominal pain, Negative for nausea, vomiting, and diarrhea, constipation. 22:03 Back: Positive for pain at rest. Exam: 22:03 Constitutional: This is a well developed, well nourished patient who is awake, alert, pm1 and in no acute distress. Head/Face: Normocephalic, atraumatic. Eyes: Pupils equal round and reactive to light, extra-ocular motions intact. Lids and lashes normal. Conjunctiva and sclera are non-icteric and not injected. Cornea within normal limits. Periorbital areas with no swelling, redness, or edema. ENT: Nares patent. No nasal discharge, no septal abnormalities noted. Tympanic membranes are normal and external auditory canals are clear. Oropharynx with no redness, swelling, or masses, exudates, or evidence of obstruction, uvula midline. Mucous membranes moist. Neck: Trachea midline, no thyromegaly or masses palpated, and no cervical lymphadenopathy. Supple, full range of motion without nuchal rigidity, or vertebral point tenderness. No Meningismus. 22:03 Chest/axilla: Normal chest wall appearance and motion. Nontender with no deformity. No lesions are appreciated. Cardiovascular: Regular rate and rhythm with a normal S1 and S2. No gallops, murmurs, or rubs. Normal PMI, no JVD. No pulse deficits. Respiratory: Lungs have equal breath sounds bilaterally, clear to auscultation and percussion. No rales, rhonchi or wheezes noted. No increased work of breathing, no retractions or nasal flaring. 22:03 Back: No spinal tenderness. No costovertebral tenderness. Full range of motion. Skin: Warm, dry with normal turgor. Normal color with no rashes, no lesions, and no evidence of cellulitis. MS/ Extremity: Pulses equal, no cyanosis. Neurovascular intact. Full, normal range of motion. 22:03 Abdomen/GI: Inspection: abdomen appears normal, Palpation: mild abdominal tenderness, in the epigastric area, mass, is not appreciated, rebound tenderness, is not appreciated. 22:03 Neuro: Orientation: is normal, Motor: is normal, moves all fours. Vital Signs: 21:12 BP 133 / 56; Pulse 52; Resp 20; Temp 97.8; Pulse Ox 91% on R/A; Pain 10/10; aj1 21:30 BP 155 / 57; Pulse 52; Resp 18; Pulse Ox 96% 2 lpm ; wh 23:00 BP 169 / 57; Pulse 51; Resp 18; Pulse Ox 100% 2 lpm ; wh MDM: 21:17 Patient medically screened. [facility] 23:32 Data reviewed: vital signs. Data interpreted: Pulse oximetry: on room air is 100 %. pm1 Interpretation: normal. 23:32 Counseling: I had a detailed discussion with the patient and/or guardian regarding: the pm1 historical points, exam findings, and any diagnostic results supporting the discharge/admit diagnosis, lab results, radiology results, the need for further work-up and treatment in the hospital. 23:32 Refusal of service: The patient/guardian displays adequate decision making capability pm1 and despite a detailed discussion of alternatives, benefits, risks, and consequences refuses: Admission to the hospital for further work-up and treatment, Diagnosis of heart attack and possibility of . Same diagnosis as two days ago that necessitates admission or transfer. Patient wants to go home because he is currently pain free. Patient is here with his son and law who is present in the room for discussion of diagnosis and need for admission. 04/01 21:34 Order name: Basic Metabolic Panel; Complete Time: 23:16 pm04/01 21:34 Order name: CBC with Diff; Complete Time: 22:36 pm1 04/01 21:34 Order name: LFT's; Complete Time: 23:16 pm1 04/01 21:34 Order name: Magnesium; Complete Time: 23:16 pm04/01 21:34 Order name: NT PRO-BNP; Complete Time: 23:16 pm04/01 21:34 Order name: PT-INR; Complete Time: 22:36 pm1 04/01 21:34 Order name: Troponin (emerg Dept Use Only); Complete Time: 23:16 pm1 04/01 21:34 Order name: XRAY Chest (1 view) pm04/01 21:34 Order name: EKG; Complete Time: 21:36 pm04/01 21:34 Order name: Cardiac monitoring; Complete Time: 21:58 pm04/01 21:34 Order name: EKG - Nurse/Tech; Complete Time: 21:58 pm04/01 21:34 Order name: IV Saline Lock; Complete Time: 21:58 pm04/01 21:34 Order name: Labs collected and sent; Complete Time: 21:58 pm04/01 21:34 Order name: O2 Per Protocol; Complete Time: 21:58 pm04/01 21:34 Order name: O2 Sat Monitoring; Complete Time: 21:58 pm1 Administered Medications: 22:15 Drug: morphine 4 mg {Note: RASS 0.} Route: IVP; Site: left antecubital; 04/02 00:10 Follow up: Response: No adverse reaction; Pain is decreased; RASS: Alert and Calm (0) 04/01 22:15 Drug: Zofran 4 mg Route: IVP; Site: left antecubital; 04/02 00:10 Follow up: Response: No adverse reaction Disposition: 04/01/19 23:43 Patient has left against medical advice. Impression: Non-ST elevation (NSTEMI) myocardial infarction. - Patients states they are going to Home. - Condition is Undetermined. - Discharge Instructions: Non-ST Segment Elevation Heart Attack. Follow up: Emergency Department; When: As needed; Reason: Worsening of condition. Follow up: Private Physician; When: Upon discharge from the Emergency Department; Reason: Recheck today's complaints, Continuance of care, Re-evaluation by your physician. - Problem is new. - Symptoms have improved. Addendum: 04/04/2019 09:20 Co-signature as Attending Physician, Ron Viveros MD I agree with the assessment and c gómez plan of care. Signatures: Dispatcher [employer] EDRivka Martino, HUONG RN aj1 Ron Viveros MD MD cha Marinas, Patrick, EARRING MAKER EARRING MAKER pm1 Mila Segura Corrections: (The following items were deleted from the chart) 04/02 00:11 04/01 23:43 04/01/2019 23:43 Patients has left against medical advice. Impression: wh Non-ST elevation (NSTEMI) myocardial infarction. Patient states they are going to Home. Condition is Undetermined. Follow up: Emergency Department; When: As needed; Reason: Worsening of condition. Follow up: Private Physician; When: Upon discharge from the Emergency Department; Reason: Recheck today's complaints, Continuance of care, Re-evaluation by your physician. Problem is new. Symptoms have improved. pm1
[2019-04-02 00:27] VITALS: TEMP 97.8
[2019-04-02 00:30] VITALS: BP 169/57; O2SAT 100
--- NOTE | 2019-04-02 11:44 | RAD REPORT ---
EXAM DESCRIPTION: RAD - Chest Single View - 04/01/2019 10:43 pm CLINICAL HISTORY: CHEST PAIN Chest pain. COMPARISON: <Comparisons> FINDINGS: Portable technique limits examination quality. Mild to moderate pulmonary edema is seen with bilateral pleural effusions. The heart is moderately en larged with sternotomy wires present. Right-sided venous catheter its tip in the SVC. IMPRESSION: Mild to moderate CHF versus volume overload pattern.
--- NOTE | 2019-04-02 14:15 | EKG ---
Test Date: 2019-04-01 Test Time: 21:51:53 Press Smith Helper: OSEI MEASUREMENT RESULTS: Intervals: Rate: 52 AR: 186 QRSD: 88 QT: 488 QTc: 453 [place]: P: 42 AR: 186 QRS: -33 T: 188 INTERPRETIVE STATEMENTS: Sinus bradycardia Left axis deviation Septal infarct, age undetermined T wave abnormality, consider lateral ischemia Abnormal ECG Compared to ECG 03/30/2019 17:50:06 T-wave abnormality now present ST (T wave) deviation no longer present Myocardial infarct finding still present Possible ischemia still present Electronically Signed On 04-02-19 14:13:28 CDT by Brandon Pérez
== END 2019-04-02 00:11 | disposition left against medical advice (07) ==
LOC: ER 21:02
DX: I21.4 Non-ST elevation (NSTEMI) myocardial infarction (principal); I10 Essential (primary) hypertension; E11.22 Type 2 diabetes mellitus with diabetic chronic kidney disease; I13.0 Hypertensive heart and chronic kidney disease with heart failure and stage 1 through stage 4 chronic kidney disease, or unspecified chronic kidney disease; N18.9 Chronic kidney disease, unspecified; I50.9 Heart failure, unspecified; I25.2 Old myocardial infarction; Z99.2 Dependence on renal dialysis; Z53.21 Procedure and treatment not carried out due to patient leaving prior to being seen by health care provider
CPT/HCPCS: 93005; 85025; 80048; 36415; 83735; 85610; 80076; 84484; 83880; 71045; 96375; 96374; 99284; J2405

== ENCOUNTER 2019-04-16 16:31 | Observation (INO) | payer OTHER ==
[2019-04-16] MEDS ORDERED: MORPHINE 2 MG/ML SYR ONE ×2 (17:32→20:59)
[2019-04-16] MEDS ORDERED: ONDANSETRON 4 MG/2 ML VIAL ONE (17:33)
--- NOTE | 2019-04-16 17:39 | RAD REPORT ---
EXAM DESCRIPTION: Travist Single View04/16/2019 5:24 pm CLINICAL HISTORY: Chest pain COMPARISON: March 2019 FINDINGS: Postsurgical changes involve the chest Small to moderate right and small left pleural effusions Right basilar opacity likely represents atelectasis Mild interstitial pulmonary edema is suspected. The heart is moderately enlarged Central venous catheter remains in place
[2019-04-16 17:52] LABS: Protime INR 1.19
[2019-04-16 17:53] LABS: Absolute Lymphocytes (CBC) 0.5 K/uL (0.7-4.9); Basophils % 0.7 % (0-1.3); Hematocrit 27.4 % (39.6-49.0); Lymphocytes % 8.9 % (15.3-44.8); MPV 8.4 fL (7.6-11.3); RBC Red Blood Cell Count 2.89 M/uL (4.33-5.43)
[2019-04-16] MEDS ORDERED: CLOPIDOGREL 75 MG TABLET ONE (19:09)
[2019-04-16 20:12] LABS: Bilirubin Direct 0.3 mg/dL (0-0.2); Bilirubin Total 0.6 mg/dL (0.2-1.0); Potassium 5.3 mmol/L (3.5-5.1)
[2019-04-16 20:13] LABS: Albumin 3.2 g/dL (3.4-5.0); Magnesium 2.1 mg/dL (1.8-2.4); Protein, Total 7.4 g/dL (6.4-8.2); Troponin (Emerg Dept Use Only) 0.04 ng/mL (0.0-0.045)
--- NOTE | 2019-04-16 21:21 | ER ---
Nurse's Notes [facility] Name: Blaise Quarles Age: 78 yrs Sex: Male : 1940 Arrival Date: 04/16/2019 Time: 16:42 Bed 16 Private MD: Diagnosis: Chest pain, unspecified Presentation: 04/16 16:42 Presenting complaint: Patient states: "I woke up today at 4am with my stomach hurting". aa5 Pt c/o abdominal pain radiating up to chest. Pt denies nausea/vomiting/diarrhea. Reports last normal BM was 04/14/19 and only small BM yesterday. Last Dialysis was on . 16:42 Transition of care: patient was not received from another setting of care. Onset of aa5 symptoms was April 16, 2019. Risk Assessment: Do you want to hurt yourself or someone else? Patient reports no desire to harm self or others. Initial Sepsis Screen: Does the patient meet any 2 criteria? No. Patient's initial sepsis screen is negative. Does the patient have a suspected source of infection? No. Patient's initial sepsis screen is negative. Care prior to arrival: None. 16:42 Acuity: SARATH 3 aa5 16:42 Method Of Arrival: EMS: [facility] aa5 Historical: - Allergies: 16:42 aspirin; aa5 - PMHx: 16:42 anemia; blind; CAD; Cardiomegaly; CHF; Chronic Renal Disease; Cirrhosis; Diabetes; aa5 Dialysis; HD- Thursday//Thursday; High Cholesterol; Hypertension; Myocardial Infarction; Pleural Effusion; Pulmonary Nodule; - Immunization history:: Adult Immunizations unknown. - Social history:: Smoking status: Patient/guardian denies using tobacco. - Ebola Screening: : No symptoms or risks identified at this time. Screenin:45 Abuse screen: Denies threats or abuse. Nutritional screening: No deficits noted. rb1 Tuberculosis screening: No symptoms or risk factors identified. Fall Risk None identified. Assessment: 16:45 General: Appears uncomfortable, Behavior is calm, cooperative. Pain: Complains of pain rb1 in abdomen Pain radiates to chest Pain currently is 10 out of 10 on a pain scale. Neuro: Level of Consciousness is awake, alert, obeys commands, Oriented to person, place, time, situation. Cardiovascular: Capillary refill < 3 seconds is brisk in bilateral fingers. Respiratory: Airway is patent Respiratory effort is even, unlabored, Respiratory pattern is regular, symmetrical. GI: Bowel sounds present X 4 quads. Abd is soft Abdomen is tender to palpation X 4 quads. : Dialysis, catheter in upper right chest. Derm: Skin is pink, warm \\T\\ dry. 17:44 Reassessment: Patient appears in no apparent distress at this time. No changes from rb1 previously documented assessment. Family at bedside. 18:42 Reassessment: Patient appears in no apparent distress at this time. Patient and/or rb1 family updated on plan of care and expected duration. Pain level reassessed. Patient is alert, oriented x 3, equal unlabored respirations, skin warm/dry/pink. Patient denies pain at this time. 19:05 Reassessment: Patient appears in no apparent distress at this time. Patient and/or jb4 family updated on plan of care and expected duration. Pain level reassessed. Patient is alert, oriented x 3, equal unlabored respirations, skin warm/dry/pink. 20:05 Reassessment: Patient appears in no apparent distress at this time. Patient and/or jb4 family updated on plan of care and expected duration. Pain level reassessed. Patient is alert, oriented x 3, equal unlabored respirations, skin warm/dry/pink. 21:00 Reassessment: Patient appears in no apparent distress at this time. Patient and/or jb4 family updated on plan of care and expected duration. Pain level reassessed. Patient is alert, oriented x 3, equal unlabored respirations, skin warm/dry/pink. Pt reports increasing chest pain, provider notified. 21:30 Reassessment: Patient appears in no apparent distress at this time. Patient and/or jb4 family updated on plan of care and expected duration. Pain level reassessed. Patient is alert, oriented x 3, equal unlabored respirations, skin warm/dry/pink. PT admitted to ER hold, see [facility] for further documentation. 04/17 07:20 Reassessment: Report called to HUONG Amin. jb4 Vital Signs: 04/16 16:45 BP 155 / 57; Pulse 54; Resp 26; Temp 98.7(O); Pulse Ox 100% on R/A; Pain 10/10; rb1 17:40 BP 142 / 48; Pulse 53; Resp 17; Pulse Ox 100% on R/A; Pain 8/10; rb1 20:17 BP 126 / 57; Pulse 52; Resp 22; Pulse Ox 100% on R/A; mt ED Course: 16:42 Patient arrived in ED. em 16:42 Arm band placed on Patient placed in an exam room, on a stretcher. aa5 16:45 Ron Ochoa PA is PHCP. cp 16:45 Morgan Vigil MD is Attending Physician. cp 16:45 Patient has correct armband on for positive identification. Bed in low position. Call rb1 light in reach. Side rails up X 1. Pulse ox on. NIBP on. 16:49 Triage completed. aa5 17:24 XRAY Chest (1 view) In Process Unspecified. EDMS 17:35 Inserted saline lock: 22 gauge in left forearm, using aseptic technique. Blood mg2 collected. 19:10 Harriet Ca, HUONG is Primary Nurse. rb1 21:20 Camilo Horton MD is Hospitalizing Provider. cp 21:30 No provider procedures requiring assistance completed. Patient admitted, IV remains in jb4 place. 21:32 EKG done, by ED staff, reviewed by Gilbert Vasquez MD Repeat EKG done for new onset mt chest pain. 22:07 Given sandwich and coffee per request. mt Administered Medications: 17:40 Drug: morphine 2 mg Route: IVP; Site: left forearm; mg2 18:00 Follow up: Response: No adverse reaction; Pain is decreased rb1 17:40 Drug: Zofran 4 mg Route: IVP; Site: left forearm; mg2 18:00 Follow up: Response: No adverse reaction rb1 19:10 Drug: PlaVIX 75 mg Route: PO; jb4 19:40 Follow up: Response: No adverse reaction jb4 21:06 Drug: morphine 2 mg {Note: Rass score of 0.} Route: IVP; Site: left forearm; jb4 21:30 Follow up: Response: No adverse reaction; Pain is decreased; RASS: Alert and Calm (0) jb4 Outcome: 21:21 Decision to Hospitalize by Provider. cp 21:30 Admitted to ER Hold. Please see [facility] for further documentation. jb4 21:30 Condition: stable 21:30 Discharge instructions given to patient, Instructed on the need for admit, Demonstrated understanding of instructions. 04/17 07:23 Admitted to Med/surg accompanied by nurse, via stretcher, room 202, with chart, Report jb4 called to HUONG Amin 07:41 Patient left the ED. rb1 Signatures: Dispatcher [employer] EDJudah Spencer, TEACHING AIDE TEACHING AIDE Nataly Salgado, RN RN aa5 Ron Ochoa PA PA cp Barber, Rebecca, RN RN rb1 Emanuel Vincent RN RN jb4 Brigitte Menendez mt, Michele RN RN mg2 Corrections: (The following items were deleted from the chart) 07 07:23 Admitted to Med/surg accompanied by nurse, via stretcher, with chart, Report jb4 called to HUONG Amin jb4
--- NOTE | 2019-04-16 21:21 | EDPHYS ---
Physician Documentation [facility] Name: Blaise Quarles Age: 78 yrs Sex: Male : 1940 Arrival Date: 04/16/2019 Time: 16:42 Bed 16 Private MD: ED Physician Morgan Vigil HPI: 04/16 16:50 This 78 yrs old Male presents to ER via EMS with complaints of Abdominal Pain, cp Chest Pain. 04/17 16:50 The patient or guardian reports chest pain that is located primarily in the anterior cp chest wall, left. 16:50 Onset: today. The patient presents with abdominal pain in the upper abdomen. Onset: The cp symptoms/episode began/occurred today. Associated signs and symptoms: Pertinent negatives: anorexia, blood in stools, constipation, diarrhea, fever, palpitations, shortness of breath. Historical: - Allergies: 04/16 16:42 aspirin; aa5 - PMHx: 16:42 anemia; blind; CAD; Cardiomegaly; CHF; Chronic Renal Disease; Cirrhosis; Diabetes; aa5 Dialysis; HD- Thursday//Thursday; High Cholesterol; Hypertension; Myocardial Infarction; Pleural Effusion; Pulmonary Nodule; - Immunization history:: Adult Immunizations unknown. - Social history:: Smoking status: Patient/guardian denies using tobacco. - Ebola Screening: : No symptoms or risks identified at this time. ROS: 17:00 Constitutional: Negative for body aches, chills, fever, poor PO intake. cp 17:00 Eyes: Negative for injury, pain, redness, and discharge. cp 17:00 ENT: Negative for drainage from ear(s), ear pain, sore throat, difficulty swallowing, cp difficulty handling secretions. 17:00 Cardiovascular: Positive for chest pain, Negative for edema, palpitations. 17:00 Respiratory: Negative for cough, shortness of breath, wheezing. 17:00 Abdomen/GI: Positive for abdominal pain, Negative for vomiting, diarrhea, constipation, hematemesis, black/tarry stool, rectal bleeding. 17:00 Back: Negative for radiated pain. 17:00 : Negative for urinary symptoms. 17:00 Neuro: Negative for altered mental status, dizziness, headache, numbness, syncope, cp weakness. 17:00 All other systems are negative. Exam: 17:05 Constitutional: The patient appears in no acute distress, alert, awake, cp non-diaphoretic, non-toxic, well developed, well nourished, uncomfortable. 17:05 Head/Face: Normocephalic, atraumatic. cp 17:05 Eyes: Periorbital structures: appear normal, Conjunctiva: normal, no exudate, no cp injection, Sclera: no appreciated abnormality, Lids and lashes: appear normal, bilaterally. 17:05 ENT: External ear(s): are unremarkable, Ear canal(s): are normal, clear, TM's: cp dullness, bilaterally, Nose: is normal, Mouth: Lips: moist, Oral mucosa: pink and intact, moist, Posterior pharynx: is normal, airway is patent, no erythema, no exudate. 17:05 Neck: ROM/movement: is normal, is supple, without pain, no range of motions limitations, no nuchal rigidity. 17:05 Chest/axilla: Inspection: normal, Palpation: is normal, no crepitus, no tenderness. 17:05 Cardiovascular: Rate: bradycardic, Rhythm: regular, Edema: is not appreciated, JVD: is not appreciated. 17:05 Respiratory: the patient does not display signs of respiratory distress, Respirations: normal, no use of accessory muscles, no retractions, no splinting, no tachypnea, labored breathing, is not present, Breath sounds: are clear throughout, no decreased breath sounds, no stridor, no wheezing. 17:05 Abdomen/GI: Inspection: abdomen appears normal, Bowel sounds: active, all quadrants, Palpation: abdomen is soft and non-tender, in all quadrants, rebound tenderness, is not appreciated, involuntary guarding, is not appreciated. 17:05 Back: pain, is absent, ROM is normal. 17:05 Skin: no rash present. 17:05 Neuro: Orientation: to person, place \T\ time. Mentation: is normal, Motor: moves all fours, strength is normal. 17:45 ECG was reviewed by the Attending Physician. cp Vital Signs: 16:45 BP 155 / 57; Pulse 54; Resp 26; Temp 98.7(O); Pulse Ox 100% on R/A; Pain 10/10; rb1 17:40 BP 142 / 48; Pulse 53; Resp 17; Pulse Ox 100% on R/A; Pain 8/10; rb1 20:17 BP 126 / 57; Pulse 52; Resp 22; Pulse Ox 100% on R/A; mt MDM: 16:46 Patient medically screened. cp 21:45 The patient was not given aspirin in the Emergency Department. Not indicated due to cp patient's past medical history. 21:45 Data reviewed: vital signs, nurses notes, lab test result(s), EKG, radiologic studies, cp plain films, and as a result, I will admit patient. 21:45 Test interpretation: by ED physician or midlevel provider: ECG, plain radiologic cp studies. Counseling: I had a detailed discussion with the patient and/or guardian regarding: the historical points, exam findings, and any diagnostic results supporting the discharge/admit diagnosis, lab results, radiology results. Response to treatment: improved, and as a result, I will admit patient. Physician consultation: Camilo Horton MD was called at 21:45, was contacted at 21:45, regarding admission, to the telemetry unit. patient's condition. 04/16 16:45 Order name: Basic Metabolic Panel; Complete Time: 20:23 cp 04/16 20:24 Interpretation: Normal except: NA 132; K 5.3; GLUC 132; BUN 47; CRE 4.29; GFR 13. cp 04/16 16:45 Order name: CBC with Diff; Complete Time: 17:56 cp 04/16 17:56 Interpretation: Normal except: RBC 2.89; HGB 9.5; HCT 27.4; RDW 16.5; LYM% 8.9; MN% cp 13.5; LYMA 0.5. 04/16 16:45 Order name: LFT's; Complete Time: 20:23 cp 04/16 20:28 Interpretation: Normal except: BILID 0.3; ALB 3.2; GLOB 4.2; A/G 0.8. cp 04/16 16:45 Order name: Magnesium; Complete Time: 20:23 cp 04/16 16:45 Order name: NT PRO-BNP; Complete Time: 20:23 cp 04/16 16:45 Order name: PT-INR; Complete Time: 17:56 cp 04/16 16:45 Order name: Troponin (emerg Dept Use Only); Complete Time: 20:23 cp 04/16 20:28 Interpretation: Reviewed. cp 04/16 16:45 Order name: Lipase; Complete Time: 20:23 cp 04/16 21:52 Order name: CBC with Automated Diff EDMS 04/16 21:52 Order name: CBC with Automated Diff EDMS 04/16 21:52 Order name: CKMB Creatine Kinase MB EDMS 04/16 21:52 Order name: CKMB Creatine Kinase MB EDMS 04/16 21:52 Order name: CKMB Creatine Kinase MB EDMS 04/16 21:52 Order name: CKMB Creatine Kinase MB EDMS 04/16 16:45 Order name: XRAY Chest (1 view); Complete Time: 17:56 cp 04/16 21:52 Order name: Comprehensive Metabolic Panel EDMS 04/16 21:52 Order name: Comprehensive Metabolic Panel EDMS 04/16 21:52 Order name: Creatine Phosphokinase EDMS 04/16 21:52 Order name: Creatine Phosphokinase EDMS 04/16 21:52 Order name: Creatine Phosphokinase EDMS 04/16 21:52 Order name: Creatine Phosphokinase EDMS 04/16 21:52 Order name: Magnesium EDMS 04/16 21:52 Order name: Magnesium EDMS 04/16 21:52 Order name: Phosphorus EDMS 04/16 21:52 Order name: Phosphorus EDMS 04/16 21:52 Order name: Troponin I EDMS 04/16 21:52 Order name: Troponin I EDMS 04/16 21:52 Order name: Troponin I EDMS 04/16 21:52 Order name: Troponin I EDMS 04/16 16:45 Order name: EKG; Complete Time: 16:46 cp 04/16 16:45 Order name: Cardiac monitoring; Complete Time: 17:41 cp 04/16 16:45 Order name: EKG - Nurse/Tech; Complete Time: 17:41 cp 04/16 16:45 Order name: IV Saline Lock; Complete Time: 17:41 cp 04/16 16:45 Order name: Labs collected and sent; Complete Time: 17:41 cp 04/16 16:45 Order name: O2 Per Protocol; Complete Time: 17:41 cp 04/16 16:45 Order name: O2 Sat Monitoring; Complete Time: 19:16 cp 04/16 21:52 Order name: CONS Physician Consult EDMS 04/16 21:52 Order name: Renal EDMS EC:45 Rate is 50 beats/min. Rhythm is regular. OK interval is prolonged at 220 msec. QRS cp interval is prolonged at 102 msec. QT interval is normal. T waves are Inverted in leads I, aVL. Interpreted by me. Reviewed by me. Administered Medications: 17:40 Drug: morphine 2 mg Route: IVP; Site: left forearm; mg2 18:00 Follow up: Response: No adverse reaction; Pain is decreased rb1 17:40 Drug: Zofran 4 mg Route: IVP; Site: left forearm; mg2 18:00 Follow up: Response: No adverse reaction rb1 19:10 Drug: PlaVIX 75 mg Route: PO; jb4 19:40 Follow up: Response: No adverse reaction jb4 21:06 Drug: morphine 2 mg {Note: Rass score of 0.} Route: IVP; Site: left forearm; jb4 21:30 Follow up: Response: No adverse reaction; Pain is decreased; RASS: Alert and Calm (0) jb4 Disposition: 04/17 09:58 Co-signature as Attending Physician, Morgan Vigil MD. rn Disposition: 04/16/19 21:21 Hospitalization ordered by Camilo Horton for Observation. Preliminary diagnosis is Chest pain, unspecified. - Bed requested for Telemetry/MedSurg (observation). - Status is Observation. rb1 - Condition is Stable. - Problem is new. - Symptoms have improved. UTI on Admission? No Signatures: Dispatcher [employer] EDMS Morgan Vigil MD MD rn Calderon, Audri RN RN aa5 Ron Ochoa PA PA cp Mena Doty RN RN Harriet Ca RN RN rb1 Emanuel Vincent RN RN jb4 Cameron Iniguez RN RN mg2 Corrections: (The following items were deleted from the chart) 04/16 21:29 21:21 Hospitalization Ordered by Camilo Horton MD for Observation. Preliminary cg diagnosis is Chest pain, unspecified. Bed requested for Telemetry/MedSurg (observation). Status is Observation. Condition is Stable. Problem is new. Symptoms have improved. UTI on Admission? No. cp 04/17 05:53 04/16 21:29 04/16/2019 21:21 Hospitalization Ordered by Camilo Horton MD for cg Observation. Preliminary diagnosis is Chest pain, unspecified. Bed requested for [facility] ER HOLD. Status is Observation. Condition is Stable. Problem is new. Symptoms have improved. UTI on Admission? No. cg 04/17 07:41 05:53 04/16/2019 21:21 Hospitalization Ordered by Camilo Horton MD for Observation. rb1 Preliminary diagnosis is Chest pain, unspecified. Bed requested for Telemetry/MedSurg (observation). Status is Observation. Condition is Stable. Problem is new. Symptoms have improved. UTI on Admission? No. cg
[2019-04-16] MEDS ORDERED: ONDANSETRON 4 MG/2 ML VIAL IV PRN (21:44)
[2019-04-16] MEDS ORDERED: ACETAMINOPHEN 500 MG TAB PO PRN (21:44)
[2019-04-16] MEDS ORDERED: NITROGLYCERIN 0.4 MG/TAB SL PRN (21:51)
--- NOTE | 2019-04-16 21:58 | P.HP ---
Certification for Inpatient Patient admitted to: Observation With expected LOS: <2 Midnights Patient will require the following post-hospital care: None Practitioner: I am a practitioner with admitting privileges, knowledge of patient current condition, hospital course, and medical plan of care. Services: Services provided to patient in accordance with Admission requirements found in Title 42 Section 412.3 of the Code of Federal Regulations Patient History Date of Service: 04/16/19 Reason for admission: CHEST PAIN History of Present Illness: 78 yo male with past medical history of ESRD, DM, HTN, CAD s/p CABG recently been admitted to [facility] and was discharged yesterday came to ER with Chest pain and shortness of breath started yesterday and was progressively worsening and was brought to the ER. patient was supposed to have dialysis as today but he missed the dialysis. He complains of chest pain retrosternal nonradiating, pressure-like, not associated with any diaphoresis. He also complains of right upper quadrant pain. No nausea vomiting or diarrhea Stop Patient was assessed in the ER and was admitted for further workup and management. At the time of interview the pain is 4/10 in severity. Patient was examined and discussed about the findings with the help of family members as patient is a poor historian. Allergies aspirin Allergy (Verified 01/11/18 15:42) Nausea/Vomiting Home medications list reviewed: Yes Home Medications: clonazePAM [Clonazepam] 1 mg PO BID 08/03/18 Atorvastatin Calcium [Lipitor] 40 mg PO BEDTIME 02/22/19 Bumetanide 2 mg PO DAILY PRN 02/22/19 Buspirone HCl [Buspar*] 5 mg PO BEDTIME 02/22/19 Carvedilol [Coreg*] 12.5 mg PO BID 02/22/19 Clopidogrel Bisulfate [Plavix*] 75 mg PO DAILY 02/22/19 Docusate Sodium 100 mg PO DAILY 02/22/19 Furosemide 80 mg PO DAILY 02/22/19 Hydralazine HCl 50 mg PO BID 02/22/19 Nitroglycerin [Nitrostat*] 0.4 mg SL Q5M PRN 02/22/19 Ondansetron HCl [Zofran] 4 mg PO Q8HP PRN 02/22/19 Ramipril 5 mg PO BEDTIME 02/22/19 - Past Medical/Surgical History Diabetic: Yes -: CHF, combined -: End-stage renal disease on hemodialysis TThS -: Chronic anemia with thrombocytopenia -: CAD, prior CABG -: Liver cirrhosis -: Diabetes mellitus type 2 -: Hyperlipidemia -: Chronic abdominal pain -: Hypertension -: Anxiety -: HTN -: PE -: Repair of left finger fracture -: CABG -: cardiac stents -: R chest gillian placement Psychosocial/ Personal History: He is 56 years, has 13 children, he does not work. - Family History Father -: GI disease Notes: none per pt - Social History Alcohol use: No CD- Drugs: No Caffeine use: No Review of Systems 10-point ROS is otherwise unremarkable General: Other (Denies any fever or chills) Eyes: Other (Blind) Respiratory: SOB with Excertion Cardiovascular: Chest Pain, Edema Gastrointestinal: Other (No nausea vomiting) Physical Examination - Vital Signs Temperature: 98.7 F Blood Pressure: 148/92 Pulse: 78 Pulse Ox (%): 95 - Physical Exam General: Alert, Oriented x3, Cooperative, Mild distress HEENT: Atraumatic, Normocephalic Neck: Supple, JVD distended Respiratory: Diminished, Crackles/rales Cardiovascular: Regular rate/rhythm, Normal S1 S2, Abnormal S3, Edema Capillary refill: <2 Seconds Gastrointestinal: Non-distended, Hepatomegaly, Tenderness Musculoskeletal: No erythema, No tenderness Integumentary: No rashes Neurological: Normal speech Lymphatics: No axilla or inguinal lymphadenopathy Urinary: Dialysis catheter External genitalia: Deferred Rectal: Deferred - Studies Laboratory Data (last 24 hrs) 04/16/19 19:10: Sodium 132 L, Potassium 5.3 H, BUN 47 H, Creatinine 4.29 H, Glucose 132 H, Magnesium 2.1, Total Bilirubin 0.6, AST 19, ALT 21, Alkaline Phosphatase 116, Lipase 59 L 04/16/19 17:30: PT 13.9 H, INR 1.19 04/16/19 17:30: WBC 5.7, Hgb 9.5 L, Hct 27.4 L, Plt Count 210 Assessment and Plan - Problems (Diagnosis) (1) Acute on chronic kidney failure Onset Date: 02/03/18 Current Visit: No Status: Acute Plan: consult nephrology for dialysis Monitor closely in the telemetry Qualifiers: Acute renal failure type: unspecified Chronic kidney disease stage: stage 5 , not on chronic dialysis Qualified Code(s): N17.9 - Acute kidney failure, unspecified; N18.5 - Chronic kidney disease, stage 5 (2) CHF exacerbation Onset Date: 01/12/18 Current Visit: No Status: Acute Plan: Monitor under telemetry Aggressive diuresis Oxygen support Pain control morphine p.r.n. (3) Chest pain Onset Date: 01/12/18 Current Visit: No Status: Acute Plan: Monitor under telemetry Serial EKGs Trend cardiac enzymes Cardiology consult if cardiac enzymes are positive Nitroglycerin p.r.n. pain control (4) Hyperkalemia Current Visit: No Status: Acute Plan: For monitor under telemetry EKG did not show any signs of hyperkalemia changes Will give Kayexalate Consulted nephrology for possible dialysis Monitor BMP Antihyperkalemic protocol if needed (5) Cardiac cirrhosis Onset Date: 12/15/17 Current Visit: No Status: Chronic (6) Coronary artery disease Onset Date: 07/15/17 Current Visit: No Status: Chronic Plan: Continue home medications Restarted Plavix, beta-evy, CARLOS-inhibitor Monitor closely under telemetry trend cardiac enzymes Qualifiers: (7) Diabetes mellitus Onset Date: 07/15/17 Current Visit: No Status: Chronic Plan: Insulin sliding scale Acucheck q. a.c. and HS Qualifiers: Diabetes mellitus type: type 2 Diabetes mellitus complication status: with kidney complications Chronic kidney disease stage: on chronic dialysis (8) End stage renal disease Onset Date: 05/27/18 Current Visit: No Status: Chronic Plan: On dialysis Consulted Nephrology Recommended to go for dialysis as scheduled (9) Hypertension Onset Date: 02/21/16 Current Visit: No Status: Chronic Plan: Continue home medications and titrate as necessary Hydralazine p.r.n. Qualifiers: (10) Status post coronary artery bypass graft Onset Date: 07/15/17 Current Visit: No Status: Chronic Plan: Hyponatremia Monitor BMP daily, possibly due to CHF Anemia of chronic disease Monitor CBC daily Transfuse p.r.n. Blindness Supportive measures GI/DVT prophylaxis Advanced directives full code ( discussed with the patient ) Discharge Plan: Home Plan to discharge in: 24 Hours - Advance Directives Does patient have a Living Will: No Does patient have a Durable POA for Healthcare: No - Code Status/Comfort Care Code Status Assessed: Yes Code Status: Full Code
[2019-04-16 22:33] LABS: CKMB Creatine Kinase MB 3.7 ng/mL (0.3-3.6); Troponin I 0.03 ng/mL (0.0-0.045)
[2019-04-17] MEDS: HEPARIN 5000 UNIT/ML 1 ML VIAL SQ SCH ×4 (01:00→18:28)
[2019-04-17] MEDS: FUROSEMIDE 40 MG/4 ML VIAL IV SCH ×3 (01:00→18:28)
[2019-04-17] MEDS: MORPHINE 2 MG/ML SYR IV PRN ×5 (01:34→23:35)
[2019-04-17 05:40] LABS: Albumin 2.9 g/dL (3.4-5.0); Bilirubin Total 0.5 mg/dL (0.2-1.0); Phosphorus 2.2 mg/dL (2.5-4.9); Potassium 5.5 mmol/L (3.5-5.1); Protein, Total 6.6 g/dL (6.4-8.2)
[2019-04-17 05:42] LABS: CKMB Creatine Kinase MB 3.2 ng/mL (0.3-3.6); Troponin I 0.04 ng/mL (0.0-0.045)
[2019-04-17 05:43] LABS: Absolute Lymphocytes (CBC) 0.5 K/uL (0.7-4.9); Basophils % 0.7 % (0-1.3); Hematocrit 25.9 % (39.6-49.0); Lymphocytes % 8.7 % (15.3-44.8); MPV 8.1 fL (7.6-11.3); RBC Red Blood Cell Count 2.73 M/uL (4.33-5.43)
--- NOTE | 2019-04-17 06:13 | EKG ---
Test Date: 2019-04-16 Test Time: 21:27:18 Streetsweeper Operator: GABRIEL MEASUREMENT RESULTS: Intervals: Rate: 53 FL: 224 QRSD: 92 QT: 470 QTc: 441 [place]: P: 50 FL: 224 QRS: -46 T: 118 INTERPRETIVE STATEMENTS: Sinus bradycardia with 1st degree AV block Left axis deviation Anteroseptal infarct, age undetermined ST & T wave abnormality, consider lateral ischemia Abnormal ECG Compared to ECG 04/01/2019 21:51:53 First degree AV block now present Myocardial infarct finding still present Electronically Signed On 04-17-19 06:13:07 CDT by Raheel Zeng
[2019-04-17] MEDS ORDERED: MORPHINE 2 MG/ML SYR ONE (06:31)
[2019-04-17] MEDS: INSULIN -REGULAR HUMAN 50 UNIT/0.5 ML ML SQ SCH ×4 (07:30→21:00)
[2019-04-17] MEDS: CLOPIDOGREL 75 MG TABLET PO SCH (09:45)
[2019-04-17] MEDS: HYDRALAZINE HCL 25 MG TABLET PO SCH ×2 (09:45→21:53)
[2019-04-17] MEDS: clonazePAM 1 MG TAB PO SCH ×2 (09:45→21:54)
[2019-04-17] MEDS: DOCUSATE NA 100 MG CAP PO SCH (09:46)
[2019-04-17] MEDS: CARVEDILOL 12.5 MG TAB PO SCH ×2 (09:46→21:53)
[2019-04-17] MEDS ORDERED: INFLUENZA VACCINE (for 3y+) 0.5 ML DOSE IMVAC ONE (12:00)
[2019-04-17] MEDS ORDERED: SOD POLYSTYREN SUL 15 GM/60 ML UCUP PO ONE (14:00)
[2019-04-17 15:10] LABS: CKMB Creatine Kinase MB 2.9 ng/mL (0.3-3.6); Troponin I 0.03 ng/mL (0.0-0.045)
[2019-04-17] MEDS: RAMIPRIL 5 MG CAP PO SCH (21:53)
[2019-04-17] MEDS: ATORVASTATIN 40 MG TAB PO SCH (21:54)
[2019-04-17] MEDS: BUSPIRONE HCL 5 MG TABLET PO SCH (21:54)
[2019-04-17] MEDS ORDERED: NA CHLORIDE 0.9% 1,000 ML IV PRN (22:41)
[2019-04-17] MEDS ORDERED: MANNITOL 25% 12.5 GM/50 ML VIAL IV PRN (22:41)
[2019-04-17] MEDS ORDERED: ALBUMIN HUMAN 25% 50 ML IV SCH (23:00)
[2019-04-18] MEDS: FUROSEMIDE 40 MG/4 ML VIAL IV SCH ×3 (00:42→17:29)
[2019-04-18] MEDS: HEPARIN 5000 UNIT/ML 1 ML VIAL SQ SCH ×3 (00:43→17:29)
[2019-04-18] MEDS ORDERED: NA CHLORIDE 0.9% 1,000 ML IV PRN (07:22)
[2019-04-18] MEDS: INSULIN -REGULAR HUMAN 50 UNIT/0.5 ML ML SQ SCH ×4 (07:30→21:00)
[2019-04-18] MEDS: HYDRALAZINE HCL 25 MG TABLET PO SCH ×2 (08:31→21:02)
[2019-04-18] MEDS: DOCUSATE NA 100 MG CAP PO SCH (08:31)
[2019-04-18] MEDS: MORPHINE 2 MG/ML SYR IV PRN ×2 (08:31→21:50)
[2019-04-18] MEDS: CLOPIDOGREL 75 MG TABLET PO SCH (08:31)
[2019-04-18] MEDS: CARVEDILOL 12.5 MG TAB PO SCH ×2 (08:32→21:02)
[2019-04-18] MEDS: clonazePAM 1 MG TAB PO SCH ×2 (09:42→21:02)
--- NOTE | 2019-04-18 09:54 | EKG ---
Test Date: 2019-04-16 Test Time: 17:37:41 Denture Laboratory Technician: KEILA MEASUREMENT RESULTS: Intervals: Rate: 50 OH: 220 QRSD: 102 QT: 476 QTc: 433 [place]: P: 68 OH: 220 QRS: -21 T: 136 INTERPRETIVE STATEMENTS: Sinus bradycardia with 1st degree AV block Possible Left atrial enlargement Left ventricular hypertrophy Cannot rule out Septal infarct, age undetermined T wave abnormality, consider lateral ischemia Abnormal ECG Compared to ECG 04/01/2019 21:51:53 First degree AV block now present Left ventricular hypertrophy now present Left-axis deviation no longer present Myocardial infarct finding still present T-wave abnormality still present Possible ischemia still present Electronically Signed On 04-18-19 09:53:55 CDT by Raheel Zeng
--- NOTE | 2019-04-18 18:10 | P.PN ---
Subjective Date of Service: 04/18/19 Chief Complaint: CHEST PAIN Patient seen and examined at bedside. No family at bedside. Chart reviewed and case discussed with nursing staff. Continues to complain of abdominal pain Dialysis session today Review of Systems 10-point ROS is otherwise unremarkable Physical Examination - Vital Signs Temperature: 98.4 F Blood Pressure: 118/79 Pulse: 54 Respirations: 16 Pulse Ox (%): 92 - Physical Exam General: Oriented x3, Cachectic, Mild distress HEENT: Atraumatic, PERRLA, EOMI Neck: Supple, JVD not distended Respiratory: Clear to auscultation bilaterally, Normal air movement Cardiovascular: Regular rate/rhythm, Normal S1 S2 Gastrointestinal: Normal bowel sounds, No tenderness Musculoskeletal: No tenderness Integumentary: No rashes Neurological: Normal speech, Normal tone, Normal affect Lymphatics: No axilla or inguinal lymphadenopathy Assessment And Plan - Plan (1) Acute on chronic kidney failure consult nephrology for dialysis Monitor closely in the telemetry (2) CHF exacerbation Monitor under telemetry Aggressive diuresis Oxygen support Pain control morphine p.r.n. (3) Chest pain Onset Date: 01/12/18 Current Visit: No Status: Acute Plan: Monitor under telemetry Serial EKGs Trend cardiac enzymes Cardiology consult if cardiac enzymes are positive Nitroglycerin p.r.n. pain control (4) Hyperkalemia For monitor under telemetry EKG did not show any signs of hyperkalemia changes Will give Kayexalate Consulted nephrology for possible dialysis Monitor BMP Antihyperkalemic protocol if needed (5) Cardiac cirrhosis (6) Coronary artery disease Continue home medications Restarted Plavix, beta-evy, CARLOS-inhibitor Monitor closely under telemetry trend cardiac enzymes (7) Diabetes mellitus Insulin sliding scale Acucheck q. a.c. and HS (8) End stage renal disease On dialysis Consulted Nephrology Recommended to go for dialysis as scheduled (9) Hypertension Continue home medications and titrate as necessary Hydralazine p.r.n. (10) Status post coronary artery bypass graft (11)Hyponatremia Improving Monitor BMP daily, possibly due to CHF (12) Anemia of chronic disease Monitor CBC daily Transfuse p.r.n. (13) Blindness Supportive measures (14) Intentional non compliance Patient has been seen at [facility], cardiac workup was started. It seems that he has underlying CAD? Along with some underlying abdominal aortic irregularities that needs to be addressed by vascular surgeon. He was seen a vascular surgeon, but he needs cardiac workup which he was getting at [facility]. He has not been back to see them yet. He will need to continue pursuing this at [facility] therefore he could have vascular surgery recommendations and interventions as needed DVT prophylaxis: Heparin GI prophylaxis: None Diet: Renal Disposition: Pending symptomatic improvement and dialysis. Anticipate discharge in the morning
--- NOTE | 2019-04-18 18:10 | P.PN ---
Subjective Date of Service: 04/17/19 Chief Complaint: CHEST PAIN Subjective: No new changes Review of Systems 10-point ROS is otherwise unremarkable Physical Examination - Vital Signs Temperature: 98.4 F Blood Pressure: 118/79 Pulse: 54 Respirations: 16 Pulse Ox (%): 92 - Physical Exam General: Alert, Cachectic, Moderate distress HEENT: Atraumatic, PERRLA, Other (Blind), EOMI Neck: Supple, JVD not distended Respiratory: Clear to auscultation bilaterally, Normal air movement Cardiovascular: Regular rate/rhythm, Normal S1 S2 Gastrointestinal: Normal bowel sounds, No tenderness Musculoskeletal: No tenderness Integumentary: No rashes Neurological: Normal speech, Normal tone, Normal affect Lymphatics: No axilla or inguinal lymphadenopathy Assessment And Plan - Plan (1) Acute on chronic kidney failure consult nephrology for dialysis Monitor closely in the telemetry (2) CHF exacerbation Monitor under telemetry Aggressive diuresis Oxygen support Pain control morphine p.r.n. (3) Chest pain Onset Date: 01/12/18 Current Visit: No Status: Acute Plan: Monitor under telemetry Serial EKGs Trend cardiac enzymes Cardiology consult if cardiac enzymes are positive Nitroglycerin p.r.n. pain control (4) Hyperkalemia For monitor under telemetry EKG did not show any signs of hyperkalemia changes Will give Kayexalate Consulted nephrology for possible dialysis Monitor BMP Antihyperkalemic protocol if needed (5) Cardiac cirrhosis (6) Coronary artery disease Continue home medications Restarted Plavix, beta-evy, CARLOS-inhibitor Monitor closely under telemetry trend cardiac enzymes (7) Diabetes mellitus Insulin sliding scale Acucheck q. a.c. and HS (8) End stage renal disease On dialysis Consulted Nephrology Recommended to go for dialysis as scheduled (9) Hypertension Continue home medications and titrate as necessary Hydralazine p.r.n. (10) Status post coronary artery bypass graft (11)Hyponatremia Improving Monitor BMP daily, possibly due to CHF (12) Anemia of chronic disease Monitor CBC daily Transfuse p.r.n. (13) Blindness Supportive measures (14) Intentional non compliance Patient has been seen at [facility], cardiac workup was started. It seems that he has underlying CAD? Along with some underlying abdominal aortic irregularities that needs to be addressed by vascular surgeon. He was seen a vascular surgeon, but he needs cardiac workup which he was getting at [facility]. He has not been back to see them yet. He will need to continue pursuing this at [facility] therefore he could have vascular surgery recommendations and interventions as needed DVT prophylaxis: Heparin GI prophylaxis: None Diet: Renal Disposition: Pending symptomatic improvement and dialysis
--- NOTE | 2019-04-18 20:00 | P.CNS ---
Date of Consult: 04/18/19 Reason for Consult: ESRD Requesting Physician: Hill Frias Chief Complaint: CHEST PAIN History of Present Illness: 78 yo male with past medical history of ESRD, DM, HTN, CAD s/p CABG recently been admitted to [facility] and was discharged yesterday came to ER with Chest pain and shortness of breath started yesterday and was progressively worsening and was brought to the ER. patient was supposed to have dialysis as today but he missed the dialysis. He complains of chest pain retrosternal nonradiating, pressure-like, not associated with any diaphoresis. He also complains of right upper quadrant pain. No nausea vomiting or diarrhea Stop. 16:50 This 78 yrs old Male presents to ER via EMS with complaints of Abdominal Pain, cp Chest Pain. 04/17 16:50 The patient or guardian reports chest pain that is located primarily in the anterior cp chest wall, left. 16:50 Onset: today. The patient presents with abdominal pain in the upper abdomen. Onset: The cp symptoms/episode began/occurred today. Associated signs and symptoms: Pertinent negatives: anorexia, blood in stools, constipation, diarrhea, fever, palpitations, shortness of breath. Allergies aspirin Allergy (Verified 01/11/18 15:42) Nausea/Vomiting Home medications list reviewed: Yes Home Medications: clonazePAM [Clonazepam] 1 mg PO BID 08/03/18 Atorvastatin Calcium [Lipitor] 40 mg PO BEDTIME 02/22/19 Bumetanide 2 mg PO DAILY PRN 02/22/19 Buspirone HCl [Buspar*] 5 mg PO BEDTIME 02/22/19 Carvedilol [Coreg*] 12.5 mg PO BID 02/22/19 Clopidogrel Bisulfate [Plavix*] 75 mg PO DAILY 02/22/19 Docusate Sodium 100 mg PO DAILY 02/22/19 Furosemide 80 mg PO DAILY 02/22/19 Hydralazine HCl 50 mg PO BID 02/22/19 Nitroglycerin [Nitrostat*] 0.4 mg SL Q5M PRN 02/22/19 Ondansetron HCl [Zofran] 4 mg PO Q8HP PRN 02/22/19 Ramipril 5 mg PO BEDTIME 02/22/19 - Past Medical/Surgical History Diabetic: Yes -: CHF, combined -: End-stage renal disease on hemodialysis TThS -: Chronic anemia with thrombocytopenia -: CAD, prior CABG -: Liver cirrhosis -: Diabetes mellitus type 2 -: Hyperlipidemia -: Chronic abdominal pain -: Hypertension -: Anxiety -: HTN -: PE -: Repair of left finger fracture -: CABG -: cardiac stents -: R chest gillian placement Psychosocial/ Personal History: He is 56 years, has 13 children, he does not work. - Family History Father Medical History: GI disease Notes: none per pt - Social History Smoking Status: Unknown if ever smoked Alcohol use: No CD- Drugs: No Caffeine use: No Place of Residence: Home Review of Systems 10-point ROS is otherwise unremarkable General: Weakness, Malaise Cardiovascular: Chest Pain Gastrointestinal: Abdominal Pain Neurological: Weakness Physical Examination Temp Pulse Resp BP Pulse Ox 98.4 F 54 16 118/79 92 04/18/19 18:10 04/18/19 18:10 04/18/19 18:10 04/18/19 18:10 04/18/19 18:10 General: In no apparent distress, Cooperative HEENT: Atraumatic Neck: Supple Respiratory: Clear to auscultation bilaterally Cardiovascular: Regular rate/rhythm, Edema Gastrointestinal: Normal bowel sounds, Non-distended, No guarding Musculoskeletal: No clubbing, No contractures Integumentary: No rashes, No cyanosis Neurological: Normal speech Blood work reviewed in the chart. Na 133; K 55 Imagings Data: EXAM DESCRIPTION: Eliu Single View04/16/2019 5:24 pm CLINICAL HISTORY: Chest pain COMPARISON: March 2019 FINDINGS: Postsurgical changes involve the chest Small to moderate right and small left pleural effusions Right basilar opacity likely represents atelectasis Mild interstitial pulmonary edema is suspected. The heart is moderately enlarged Central venous catheter remains in place Conclusions/Impression: A/ ESRD on HD. HTN with CKD/ CHF. Diastolic CHF, chronic. DM II with CKD. Anemia in CKD. JUN/ Secondary HyperPTH CAD/ PAD. Abdominal pain concerning for mesenteric ischemia. P/ Continue current POC and Medications. Acute HD as ordered. Seen and examined on HD. Restart home medications as indicated. No NSAIDs. AM labs. Daily weight. Thank you kindly for the consultation. Case reviewed with Dr. Frias.
[2019-04-18] MEDS: RAMIPRIL 5 MG CAP PO SCH (21:01)
[2019-04-18] MEDS: ATORVASTATIN 40 MG TAB PO SCH (21:02)
[2019-04-18] MEDS: NEPRO SHAKE 237 ML CAN PO SCH (21:03)
[2019-04-18] MEDS: BUSPIRONE HCL 5 MG TABLET PO SCH (21:03)
[2019-04-19] MEDS: FUROSEMIDE 40 MG/4 ML VIAL IV SCH ×2 (00:44→09:24)
[2019-04-19] MEDS: HEPARIN 5000 UNIT/ML 1 ML VIAL SQ SCH ×2 (00:44→09:25)
[2019-04-19] MEDS ORDERED: TEMAZEPAM 15 MG CAP PO PRN (00:48)
[2019-04-19 01:45] VITALS: O2SAT 95
[2019-04-19 06:13] LABS: Phosphorus 2.4 mg/dL (2.5-4.9); Potassium 4.4 mmol/L (3.5-5.1)
[2019-04-19] MEDS: DOCUSATE NA 100 MG CAP PO SCH (06:36)
[2019-04-19 06:51] VITALS: BMI 17.7
[2019-04-19] MEDS: INSULIN -REGULAR HUMAN 50 UNIT/0.5 ML ML SQ SCH ×2 (07:30→11:30)
[2019-04-19] MEDS: POTASS/SODIUM PHOSPHATE 1 PKT POWD.PACK PO SCH ×3 (09:13→10:01)
[2019-04-19] MEDS: MORPHINE 2 MG/ML SYR IV PRN (09:18)
[2019-04-19] MEDS: CLOPIDOGREL 75 MG TABLET PO SCH (09:21)
[2019-04-19] MEDS: clonazePAM 1 MG TAB PO SCH (09:21)
[2019-04-19] MEDS: HYDRALAZINE HCL 25 MG TABLET PO SCH (09:22)
[2019-04-19] MEDS: CARVEDILOL 12.5 MG TAB PO SCH (09:22)
[2019-04-19] MEDS: NEPRO SHAKE 237 ML CAN PO SCH (09:31)
[2019-04-19 12:46] VITALS: BP 118/60; TEMP 98.1
[2019-04-19] MEDS ORDERED: SIMETHICONE 80 MG TAB PO SCH (14:00)
--- NOTE | 2019-04-19 15:04 | P.SSS ---
Patient History Date of Service: 04/19/19 Reason for admission: CHEST PAIN History of Present Illness: 78 yo male with past medical history of ESRD, DM, HTN, CAD s/p CABG recently been admitted to [facility] and was discharged yesterday came to ER with Chest pain and shortness of breath started yesterday and was progressively worsening and was brought to the ER. patient was supposed to have dialysis as today but he missed the dialysis. He complains of chest pain retrosternal nonradiating, pressure-like, not associated with any diaphoresis. He also complains of right upper quadrant pain. No nausea vomiting or diarrhea Stop Patient was assessed in the ER and was admitted for further workup and management. At the time of interview the pain is 4/10 in severity. Patient was examined and discussed about the findings with the help of family members as patient is a poor historian. Allergies aspirin Allergy (Verified 01/11/18 15:42) Nausea/Vomiting Home medications list reviewed: Yes Home Medications: clonazePAM [Clonazepam] 1 mg PO BID 08/03/18 Atorvastatin Calcium [Lipitor] 40 mg PO BEDTIME 02/22/19 Bumetanide 2 mg PO DAILY PRN 02/22/19 Buspirone HCl [Buspar*] 5 mg PO BEDTIME 02/22/19 Carvedilol [Coreg*] 12.5 mg PO BID 02/22/19 Clopidogrel Bisulfate [Plavix*] 75 mg PO DAILY 02/22/19 Docusate Sodium 100 mg PO DAILY 02/22/19 Furosemide 80 mg PO DAILY 02/22/19 Hydralazine HCl 50 mg PO BID 02/22/19 Nitroglycerin [Nitrostat*] 0.4 mg SL Q5M PRN 02/22/19 Ondansetron HCl [Zofran] 4 mg PO Q8HP PRN 02/22/19 Ramipril 5 mg PO BEDTIME 02/22/19 - Past Medical/Surgical History Has patient received pneumonia vaccine in the past: Yes Diabetic: Yes -: CHF, combined -: End-stage renal disease on hemodialysis TThS -: Chronic anemia with thrombocytopenia -: CAD, prior CABG -: Liver cirrhosis -: Diabetes mellitus type 2 -: Hyperlipidemia -: Chronic abdominal pain -: Hypertension -: Anxiety -: HTN -: PE -: Repair of left finger fracture -: CABG -: cardiac stents -: R chest gillian placement Psychosocial/ Personal History: He is 56 years, has 13 children, he does not work. - Family History Father -: GI disease Notes: none per pt - Social History Smoking Status: Former smoker Alcohol use: No CD- Drugs: No Caffeine use: No Place of Residence: Home Review of Systems 10-point ROS is otherwise unremarkable Physical Examination - Vital Signs Temperature: 98.1 F Blood Pressure: 118/60 Pulse: 54 Respirations: 17 Pulse Ox (%): 99 - Physical Exam General: Alert, In no apparent distress, Cachectic HEENT: Atraumatic, PERRLA, Mucous membr. moist/pink, EOMI, Sclerae nonicteric Neck: Supple, 2+ carotid pulse no bruit, No LAD, Without JVD or thyroid abnormality Respiratory: Clear to auscultation bilaterally, Normal air movement Cardiovascular: Regular rate/rhythm, Normal S1 S2 Gastrointestinal: Normal bowel sounds, No tenderness Musculoskeletal: No tenderness Integumentary: No rashes Neurological: Normal gait, Normal speech, Normal strength at 5/5 x4 extr, Normal tone, Normal affect Lymphatics: No axilla or inguinal lymphadenopathy Treatment Summary: Patient was admitted for chest pain shortness breath. He also had abdominal pain. Pathology was consulted for dialysis and he was started on diuresis for CHF exacerbation. His symptoms did improve after dialysis. He did continue to complain of abdominal pain. Patient has been seen at [facility], cardiac workup was started. It seems that he has underlying CAD? Along with some underlying mesenteric ischemia that needs to be addressed by vascular surgeon. He was seen a vascular surgeon, but he needs cardiac workup which he was getting at [facility]. He has not been back to see them yet. He will need to continue pursuing this at [facility] therefore he could have vascular surgery recommendations and interventions as needed. This was discussed in detail with family as well as patient. His diagnosis and treatment plan was explained to him, all questions were answered he verbalized understanding. Is then discharged home in a safe and stable manner. Overall, patient has a poor prognosis due to his noncompliance. - Disposition Discharge Date: 04/19/19 Disposition: ROUTINE DISCHARGE Condition: FAIR Consultations: Nephrology Patient Discharge Instructions: Please follow up with your boring machine operator and vascular surgeon for your underlying diseases. Diet: AHA Activity: Ad jose Time Spent Managing Pts Care (In Minutes): 60
[2019-04-21 14:43] LABS: HBsAG Nonreactive (Nonreactive)
== END 2019-04-19 12:58 | disposition home or self-care (01) ==
LOC: ER 16:31 → ERHOLD 21:58 → 2ND 04-17 07:18
PROVIDERS: ADMIT Family Medicine; ATTEND Family Medicine
DX: I13.2 Hypertensive heart and chronic kidney disease with heart failure and with stage 5 chronic kidney disease, or end stage renal disease (principal); E11.22 Type 2 diabetes mellitus with diabetic chronic kidney disease; N18.6 End stage renal disease; I50.33 Acute on chronic diastolic (congestive) heart failure; N17.9 Acute kidney failure, unspecified; R07.9 Chest pain, unspecified; E87.5 Hyperkalemia; I25.10 Atherosclerotic heart disease of native coronary artery without angina pectoris; Z95.1 Presence of aortocoronary bypass graft; H54.7 Unspecified visual loss; E87.1 Hypo-osmolality and hyponatremia; Z95.5 Presence of coronary angioplasty implant and graft
CPT/HCPCS: 93005 ×2; 85025 ×2; 80048 ×2; 36415 ×2; 83735 ×3; 82550 ×3; 84100 ×2; 85610; 82962 ×9; 80076; 84484 ×4; 82553 ×3; 83690; 80053; 86704; 86317; 83880; 87340; 86706; 71045; 90935 ×2; 94760 ×6; 96375; 96374; 99285; J1940 ×8; J1644 ×9; J2270 ×10; G0378 ×6; P9047; J2405

== ENCOUNTER 2019-05-25 12:12 | Emergency (ER) | payer OTHER ==
--- OUTSIDE RECORDS SUMMARY | 2019-05-25 12:15 | XMS REPORT ---
:1940 [facility] Address [address] [place] [address] Dr. Manley [address] [place] [id number] Care Team Providers Name Role Phone LAZRODNEY [...] Comments CULTURE (BEAKER) (test PSEUDOMONAS 70-79,000 col/mL ycel=5432) AERUGINOSA Pseudomonas aeruginosa Amikacin (test code=1) Susceptible [...] code=25) Resistant <0 or >4 URINALYSIS W/ [id number] 12:06:00 Test Item Value Reference Range Comments COLOR (BEAKER) (test hxcz=736) Yellow CLARITY (BEAKER) (test qyaj=522) Hazy SPECIFIC GRAVITY UA (BEAKER) (test aiwx=305) 1.012 1.001-1.035 PH UA (BEAKER) (test lppw=710) 6.0 5.0-8.0 PROTEIN UA (BEAKER) (test kqra=784) 600 mg/dL Negative GLUCOSE UA (BEAKER) (test pxsc=921) 100 mg/dL Negative KETONES UA (BEAKER) (test ejqu=327) Negative Negative BILIRUBIN UA (BEAKER) (test wwam=066) Negative Negative BLOOD UA (BEAKER) (test fkms=242) Moderate Negative NITRITE UA (BEAKER) (test vddr=186) Negative Negative LEUKOCYTE ESTERASE UA (BEAKER) (test fhnk=377) Small Negative UROBILINOGEN UA (BEAKER) (test ilbg=834) 0.2 mg/dL 0.2-1.0 RBC UA (BEAKER) (test wnnt=177) 27 /HPF WBC UA (BEAKER) (test vpbd=591) 12 /HPF BACTERIA (BEAKER) (test mktk=208) Occasional MUCUS (BEAKER) (test vtif=4908) Rare SQUAMOUS EPITHELIAL (BEAKER) (test nega=197) < /HPF HYALINE CASTS (BEAKER) (test ozrc=481) 2 /LPF GRANULAR CASTS (BEAKER) (test yjbl=495) 5 /LPF SOURCE(BEAKER) (test lmls=8467) Urine, Yusuf CT, [id number] 15:15:00Reason for exam:->ABDOMINAL PAINWhat is the patient's [...] Verified Date/ Time: 03/01/2018 15:15:27 Reading Location: [address] Body Reading Room BASIC METABOLIC [id number] 11:04:00 Test Item Value Reference Range Comments SODIUM (BEAKER) (test 136 meq/L 136-145 mjlz=166) POTASSIUM (BEAKER) (test 4.0 meq/L 3.5-5.1 kpyq=673) CHLORIDE (BEAKER) (test 108 meq/L 98-107 sbdo=206) CO2 (BEAKER) (test 15 meq/L 22-29 ljrn=244) BLOOD UREA NITROGEN 80 mg/dL 7-21 (BEAKER) (test febo=598) CREATININE (BEAKER) (test 4.79 mg/dL 0.57-1.25 iaor=188) GLUCOSE RANDOM (BEAKER) 84 mg/dL 70-105 (test szrx=434) CALCIUM (BEAKER) (test 8.9 mg/dL 8.4-10.2 ghag=003) EGFR (BEAKER) (test 12 mL/min/1.73 sq m ESTIMATED GFR IS NOT vril=6646) ACCURATE CREATININE CLEARANCE IN PREDICTING GLOMERULAR FILTRATION RATE. ESTIMATED GFR IS NOT APPLICABLE FOR DIALYSIS PATIENTS. [id number] 11:02:00 Test Item Value Reference Range Comments LIPASE (BEAKER) (test gihf=043) 61 U/L 8-78 [id number] 11:02:00 Test Item Value Reference Range Comments AMYLASE (BEAKER) (test kvpq=877) 113 U/L 25-125 HEPATIC FUNCTION [id number] 11:02:00 Test Item Value Reference Range Comments TOTAL PROTEIN (BEAKER) (test fenb=439) 6.8 gm/dL 6.0-8.3 ALBUMIN (BEAKER) (test pdof=9538) 3.5 g/dL 3.5-5.0 BILIRUBIN TOTAL (BEAKER) (test hemg=408) 0.4 mg/dL 0.2-1.2 BILIRUBIN DIRECT (BEAKER) (test hvsw=393) 0.2 mg/dL 0.1-0.5 ALKALINE PHOSPHATASE (BEAKER) (test bhwp=148) 78 U/L 40-150 AST (SGOT) (BEAKER) (test yifz=762) 20 U/L 5-34 ALT (SGPT) (BEAKER) (test vwki=984) 21 U/L 6-55 URINALYSIS W/ [id number] 11:01:00 Test Item Value Reference Range Comments COLOR (BEAKER) (test heqs=499) Light Yellow CLARITY (BEAKER) (test deyx=666) Clear SPECIFIC GRAVITY UA (BEAKER) (test oint=373) 1.006 1.001-1.035 PH UA (BEAKER) (test aucg=366) 6.0 5.0-8.0 PROTEIN UA (BEAKER) (test flzf=649) 300 mg/dL Negative GLUCOSE UA (BEAKER) (test tsjm=997) 30 mg/dL Negative KETONES UA (BEAKER) (test lvbf=989) Negative Negative BILIRUBIN UA (BEAKER) (test aijp=078) Negative Negative BLOOD UA (BEAKER) (test fhoo=588) Trace Negative NITRITE UA (BEAKER) (test zjye=893) Negative Negative LEUKOCYTE ESTERASE UA (BEAKER) (test ecfx=202) Negative Negative UROBILINOGEN UA (BEAKER) (test hpct=815) 0.2 mg/dL 0.2-1.0 RBC UA (BEAKER) (test ggrl=232) < /HPF WBC UA (BEAKER) (test ehhj=175) < /HPF BACTERIA (BEAKER) (test vgkk=484) Rare MUCUS (BEAKER) (test tmef=4166) Rare SOURCE(BEAKER) (test omoj=6415) Urine, Voided CBC W/PLT COUNT & AUTO [id number] 10:49:00 Test Item Value Reference Range Comments WHITE BLOOD CELL COUNT (BEAKER) (test xcno=681) 5.6 K/ L 3.5-10.5 RED BLOOD CELL COUNT (BEAKER) (test zatq=910) 3.10 M/ L 4.63-6.08 HEMOGLOBIN (BEAKER) (test hkbz=661) 9.8 GM/DL 13.7-17.5 HEMATOCRIT (BEAKER) (test fxgr=947) 29.7 % 40.1-51.0 MEAN CORPUSCULAR VOLUME (BEAKER) (test duaq=491) 95.8 fL 79.0-92.2 MEAN CORPUSCULAR HEMOGLOBIN (BEAKER) (test 31.6 pg 25.7-32.2 yief=275) MEAN CORPUSCULAR HEMOGLOBIN CONC (BEAKER) (test 33.0 GM/DL 32.3-36.5 cxjj=118) RED CELL DISTRIBUTION WIDTH (BEAKER) (test 14.0 % 11.6-14.4 ylfo=348) PLATELET COUNT (BEAKER) (test nyoz=698) 171 K/CU MM 150-450 MEAN PLATELET VOLUME (BEAKER) (test xnpd=371) 11.1 fL 9.4-12.4 NUCLEATED RED BLOOD CELLS (BEAKER) (test 0 /100 WBC 0-0 qkbf=820) NEUTROPHILS RELATIVE PERCENT (BEAKER) (test 69 % evtn=045) LYMPHOCYTES RELATIVE PERCENT (BEAKER) (test 16 % wyzw=479) MONOCYTES RELATIVE PERCENT (BEAKER) (test 10 % qtbf=245) EOSINOPHILS RELATIVE PERCENT (BEAKER) (test 4 % ytdy=312) BASOPHILS RELATIVE PERCENT (BEAKER) (test 1 % vabd=736) NEUTROPHILS ABSOLUTE COUNT (BEAKER) (test 3.88 K/ L 1.78-5.38 zkuy=651) LYMPHOCYTES ABSOLUTE COUNT (BEAKER) (test 0.88 K/ L 1.32-3.57 etpf=410) MONOCYTES ABSOLUTE COUNT (BEAKER) (test 0.56 K/ L 0.30-0.82 czzx=890) EOSINOPHILS ABSOLUTE COUNT (BEAKER) (test 0.25 K/ L 0.04-0.54 egwc=569) BASOPHILS ABSOLUTE COUNT (BEAKER) (test 0.03 K/ L 0.01-0.08 rikp=841) IMMATURE GRANULOCYTES-RELATIVE PERCENT (BEAKER) 0 % 0-1 (test qwjw=5345)
[2019-05-25] MEDS ORDERED: NA CHLORIDE 0.9% 500 ML ONE ×4 (12:47→18:37)
--- NOTE | 2019-05-25 13:02 | RAD REPORT ---
EXAM DESCRIPTION: CT - Ct Stroke Brain Wo Cont - 05/25/2019 12:44 pm CLINICAL HISTORY: Dizziness COMPARISON: 2012 TECHNIQUE: Computed axial tomography of the head was obtained. All CT scans are performed using dose optimization technique as appropriate and may include automated exposure control or mA/KV adjustment according to patient size. FINDINGS: An intracranial bleed is not seen . The ventricles are normal in caliber. No extra-axial fluid collection is noted. 6 centimeter low-density areas present within the left temporal and left occipital lobes. A portion o f this has the appearance of being chronic. Another portion is indeterminate. Fluid within the sinuses/ mastoids is not seen. IMPRESSION: A 6 centimeter low-density area within the left temporal and left occipital lobes consis tent with infarction. While portion of this appears chronic another portion is indeterminate. MRI Bra in recommended Dr Vigil of the emergency room was notified at 12:54 p.m. May 25, 2009.
[2019-05-25 13:04] LABS: Absolute Lymphocytes (CBC) 0.6 K/uL (0.7-4.9); Basophils % 0.4 % (0-1.3); Hematocrit 13.6 % (39.6-49.0); Lymphocytes % 6.4 % (15.3-44.8); MPV 10.7 fL (7.6-11.3); RBC Red Blood Cell Count 1.35 M/uL (4.33-5.43)
[2019-05-25 13:09] LABS: Protime INR 1.31
[2019-05-25 13:34] LABS: Albumin 2.6 g/dL (3.4-5.0); Bilirubin Direct 0.2 mg/dL (0-0.2); Bilirubin Total 0.6 mg/dL (0.2-1.0); Potassium 4.3 mmol/L (3.5-5.1); Troponin (Emerg Dept Use Only) 0.06 ng/mL (0.0-0.045)
--- NOTE | 2019-05-25 13:37 | RAD REPORT ---
EXAM DESCRIPTION: RAD - Chest Single View - 05/25/2019 1:11 pm CLINICAL HISTORY: Cough, hypotension, altered mental status, cirrhosis history, dialysis patient COMPARISON: April 16 TECHNIQUE: AP portable chest image was obtained 1304 hours . FINDINGS: Right-sided dialysis catheter is in place. Hazy opacification is present throughout both l lilibeth miner. Pleural effusions appear slightly enlarged on the right. Left pleural effusion is not sub stantially different. Central vasculature is increased over comparison. Cardiac silhouette is enlarge d but not clearly different. No pneumothorax. No acute bony abnormality seen. No acute aortic finding s suspected. IMPRESSION: CHF/volume overload pattern is evident. Right pleural effusion appears enlarged.
[2019-05-25] MEDS ORDERED: CEFEPIME 1 GM/100 ML BAG IV ONE (14:03)
[2019-05-25] MEDS ORDERED: NOREPINEPHRINE 4mg/D5W 250mL 4 MG/250 ML BAG IV ONE (14:11)
[2019-05-25 14:26] LABS: Arterial Blood Carboxyhemoglob 2.1 % (0-1.5); Blood Gas Oxyhemoglobin 84.1 % (94-97); Blood O2 Saturation 87.4 % (92-98.5)
[2019-05-25 14:37] LABS: Anisocytosis 3+; Blood Morphology Comment NOTED (NOT SEEN); Hypochromasia 2+; Ovalocytes SLIGHT; Platelet Estimate DECR; Poikilocytosis 1+; Polychromasia 1+
[2019-05-25] MEDS ORDERED: PANTOPRAZOLE 40 MG INJ ONE (15:00)
[2019-05-25] MEDS ORDERED: NA CHLORIDE 0.9% 1,000 ML ONE (15:00)
[2019-05-25] MEDS ORDERED: PANTOPRAZOLE INJ 80 MG in NA CHLORIDE 0.9% 250 ML IV ONE (15:15)
[2019-05-25 15:20] LABS: Urine Bacteria <20 /HPF (NONE SEEN); Urine Culture Reflex Order NOT NEEDED; Urine Mucus 1+ /HPF (NONE SEEN); Urine RBC <5 /HPF (NONE SEEN)
[2019-05-25 15:21] LABS: Urine Blood NEGATIVE (NEG); Urine Glucose NEGATIVE (NEG); Urine Protein 2+ (NEG); Urine Specific Gravity 1.015 (1.005-1.030)
--- NOTE | 2019-05-25 15:27 | ER ---
Nurse's Notes [facility] Name: Blaise Quarles Age: 78 yrs Sex: Male : 1940 Arrival Date: 05/25/2019 Time: 12:20 Bed 4 Private MD: Diagnosis: End stage renal disease;Altered mental status, unspecified;Sepsis, unspecified organism;Subacute left temporal and occipital infarct;Acidosis Presentation: 05/25 12:20 Presenting complaint: states: He has been feeling weak for the past 3 days, but he aj1 thought it was because of his dialysis. 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 Reports that patient has had a cough for the past 3 days, denies fever. Transition of care: patient was not received from another setting of care. 12:49 Onset of symptoms was May 25, 2019. Risk Assessment: Do you want to hurt yourself aj1 or someone else? Patient reports no desire to harm self or others. Initial Sepsis Screen: Does the patient meet any 2 criteria? Systolic BP < 90 mmHg. Altered Mental Status. Yes. 12:49 Method Of Arrival: EMS aj1 12:49 Acuity: SARATH 2 aj1 12:55 Initial Sepsis Screen: Does the patient have a suspected source of infection? Yes: aj1 Productive cough/pneumonia If YES to both, name of provider notified: Morgan Vigil MD Care prior to arrival: Glucose check: 190. Triage Assessment: 12:20 General: Appears uncomfortable, ill, Behavior is drowsy, listless. Pain: Unable to use aj1 pain scale. Does not appear to understand pain scale. Historical: - Allergies: 13:22 No Known Allergies; aj1 - Home Meds: 13:21 furosemide 80 mg Oral tab once daily [Active]; isosorbide mononitrate 60 mg Oral Tb24 1 aj1 tab once daily [Active]; hydralazine 50 mg Oral tab 1 tab 2 times per day [Active]; aspirin 81 mg Oral chew 1 tab once daily [Active]; amlodipine 10 mg tab 1 tab once daily [Active]; atorvastatin 10 mg Oral tab 1 tab once daily [Active]; nitroglycerin 0.4 mg SL subl 1 tab every 5 minutes [Active]; Plavix 75 mg Oral tab 1 tab once daily [Active]; pantoprazole 40 mg Oral TbEC 1 tab once daily [Active]; enalapril maleate 10 mg Oral tab 1 tab once daily [Active]; gabapentin 100 mg oral cap 3 caps once daily [Active]; oxycodone-acetaminophen 7.5-325 mg Oral tab 1 tab as needed [Active]; - PMHx: 12:59 Anemia; BLIND; CAD; cardiomegaly; CHF; chronic renal disease; Cirrhosis; Diabetes - aj1 NIDDM; Dialysis; HD- T/TH/SAT; High Cholesterol; Hypertension; Myocardial infarction; pleural effusion; pulmonary nodule; - Immunization history:: Adult Immunizations up to date. - Social history:: Smoking status: unknown. - Ebola Screening: : Patient denies travel to an Ebola-affected area in the 21 days before illness onset. - Family history:: not pertinent. - Hospitalizations: : Patient was recently seen at. Screenin:03 Abuse screen: Denies threats or abuse. Denies injuries from another. Nutritional aj1 screening: No deficits noted. Tuberculosis screening: No symptoms or risk factors identified. 15:51 Fall Risk None identified. ph Assessment: 12:20 Reassessment: Patient transported to CT accompanied by me. aj1 12:30 Reassessment: Patient returned to room, Dr. Vigil at bedside to evaluate patient. aj1 12:30 General: Appears uncomfortable, ill, Behavior is drowsy, listless. Pain: Unable to use aj1 pain scale. Patient is disoriented. Neuro: Level of Consciousness is lethargic, Patient will grunt, and will follow some commands, but does not answer questions verbally. Cardiovascular: Heart tones S1 S2 present Edema is 2+ to right hand and left hand. Respiratory: Airway is patent Respiratory effort is even, unlabored, Respiratory pattern is regular, symmetrical, Breath sounds with rhonchi bilaterally. Parent/caregiver reports the patient having cough that is productive. GI: Abdomen is flat, Abdomen is tender to palpation X 4 quads. : No signs and/or symptoms were reported regarding the genitourinary system. EENT: No signs and/or symptoms were reported regarding the EENT system. Derm: Skin is dry, Skin is dusky, pale, Skin temperature is cool. 13:37 Reassessment: Patient is having multifocal PVCs, and had a 4 second run of V-Tach. Dr. barrera Vigil at bedside, discussing POC with patient's family. 13:50 Reassessment: Patient transported to ER bed 4. aj1 14:15 General: Appears ill, slender, Behavior is listless. Pain: Unable to use pain scale. ph Patient is disoriented. Neuro: Level of Consciousness is lethargic, Oriented to none. Cardiovascular: Capillary refill is sluggish in bilateral fingers. Respiratory: Airway is patent Respiratory effort is even, unlabored. Derm: Skin is fragile, is thin, Skin is pale, Skin temperature is cool. 15:10 Reassessment: Spo2 noted to have decreased, osei rockwell respirations w/ periods of ph apnea noted, heart rate also noted to have dropped into 30s, pt also no longer responsive to painful stimuli, ERP notified and at bedside, family brought to room from lobby. 15:39 Reassessment: Family at bedside. ph 15:49 Reassessment: repeat Lactate sent. iw 15:57 Reassessment: Spo2 noted to have decreased to 88%, irregular respirations noted, pt ph placed on NRB mask at 100% o2 delivery, Spo2 improved to 93%. 16:31 Reassessment: [facility] at bedside to speak w/ family. ph 17:30 Reassessment: Patient and/or family updated on plan of care and expected duration. Pain ph level reassessed. VS noted to have improved, pt moaning and requesting water, following commands for ERP, pt to be transferred. 18:34 Reassessment: Patient appears in no apparent distress at this time. No changes from ph previously documented assessment. Patient and/or family updated on plan of care and expected duration. Pain level reassessed. 19:15 Reassessment: Multiple family members at bedside, aware of pending transfer; Patient lp1 moaning in pain. Reassessment: kristal hugger remains in place; receiving 2nd unit of RBC transfusion. General: Appears uncomfortable, slender, Behavior is restless. Pain: Complains of pain in generalized Noted to be moaning. Neuro: Level of Consciousness is awake, lethargic, Oriented to person. Cardiovascular: Patient's skin is warm and dry. Respiratory: Airway is patent Respiratory effort is even, Respiratory pattern is symmetrical, Breath sounds are diminished bilaterally. Derm: Skin is fragile, is thin, Skin is dry, Skin is pale. 19:24 Reassessment: Patient appears in no apparent distress at this time. Patient and/or ph family updated on plan of care and expected duration. Pain level reassessed. VS continue to improve, pt c/o pain and requesting bedpan, family at bedside, awaiting transfer, report given to Patt Griffin RN. 19:35 Reassessment: Patient had BM at this time, black in color. lp1 20:12 Reassessment: Report given to Jennifer with [facility]. lp1 20:30 Reassessment: Report given to HUONG Boyle at [facility] for patient transfer to ICU. lp1 20:31 Reassessment: [facility] at bedside. lp1 20:51 Reassessment: 2nd unit of PRBC's completed at this time. lp1 Vital Signs: 12:20 BP 93 / 56; Pulse 84; Resp 20; Temp 96.9(TE); Pulse Ox 97% on NC; aj1 12:31 BP 82 / 36; Pulse 86; Resp 20; Pulse Ox 98% on NC; aj1 12:45 BP 79 / 36; Pulse 86; Resp 22; Pulse Ox 98% ; aj1 12:50 BP 103 / 48; Pulse 85; Resp 20; Pulse Ox 98% on NC; aj1 13:10 BP 101 / 62; Pulse 77; Resp 21; Pulse Ox 96% on 3 lpm NC; aj1 13:23 BP 96 / 40; Pulse 60; Resp 16; Pulse Ox 96% on 3 lpm NC; aj1 13:42 BP 98 / 40; Pulse 54; Resp 14; Pulse Ox 93% on 3 lpm NC; aj1 13:52 BP 100 / 42; Pulse 60; Resp 16; Pulse Ox 96% on 3 lpm NC; ph 14:15 BP 99 / 35; Pulse 48; Resp 16; Pulse Ox 94% on 4 lpm NC; ph 14:30 BP 88 / 36; Pulse 48; Resp 14; Pulse Ox 94% on 4 lpm NC; ph 14:45 BP 93 / 31; Pulse 46; Resp 14; Pulse Ox 94% on 5 lpm NC; ph 14:54 BP 93 / 31; Pulse 44; Resp 10; Pulse Ox 95% on 5 lpm NC; ph 15:00 BP 90 / 34; Pulse 36; Resp 11; Pulse Ox 92% on 5 lpm NC; ph 15:15 BP 89 / 36; Pulse 52; Resp 14; Temp 96.2; Pulse Ox 92% on 5 lpm NC; ph 15:30 BP 94 / 42; Pulse 52; Resp 12; Pulse Ox 90% on 5 lpm NC; ph 15:44 BP 91 / 35; Pulse 49; Resp 18; Temp 94.9(TE); Pulse Ox 90% on 5 lpm NC; ph 16:00 BP 91 / 36; Pulse 55; Resp 18; Pulse Ox 95% on 100% Non-rebreather mask; ph 16:15 BP 104 / 38; Pulse 60; Resp 20; Pulse Ox 98% on 100% Non-rebreather mask; ph 16:33 BP 110 / 43; Pulse 66; Resp 20; Pulse Ox 99% on 100% Non-rebreather mask; ph 17:00 BP 114 / 47; Pulse 66; Resp 14; Pulse Ox 100% on Non-rebreather mask; ph 17:30 BP 108 / 47; Pulse 67; Resp 19; Pulse Ox 95% on Non-rebreather mask; ph 17:52 BP 110 / 48; Pulse 65; Resp 16; Pulse Ox 95% on 100% Non-rebreather mask; ph 18:03 BP 112 / 40; Pulse 67; Resp 20; Temp 96.8(TE); Pulse Ox 96% on 100% Non-rebreather mask;ph 18:29 BP 115 / 40; Pulse 71; Resp 24; Pulse Ox 94% on 15% Non-rebreather mask; sv 18:45 BP 110 / 48; Pulse 65; Resp 16; Pulse Ox 98% on 100% Non-rebreather mask; ph 19:00 BP 120 / 50; Pulse 74; Resp 20; Temp 97.4; Pulse Ox 98% on 100% Non-rebreather mask; ph 19:15 BP 123 / 51; Pulse 77; Resp 16; Pulse Ox 99% on 100% Non-rebreather mask; ph 19:34 BP 108 / 42; Pulse 79; Resp 20; Pulse Ox 97% on 100% Non-rebreather mask; ph 19:46 Weight 54.43 kg; lp1 20:45 BP 133 / 54; Pulse 80; Resp 20; Temp 97.2; Pulse Ox 98% on 15% Non-rebreather mask; lp1 19:46 See Transfusion Record for further vitals lp1 Jessica Coma Score: 15:11 Eye Response: to pain(2). Verbal Response: incomprehensible(2). Motor Response: rn withdraws from pain(4). Total: 8. ED Course: 12:20 Patient arrived in ED. aj1 12:20 Arm band placed on. aj1 12:22 Morgan Vigil MD is Attending Physician. rn 12:45 Rivka Lyons RN is Primary Nurse. aj1 12:47 CT Stroke Brain w/o Contrast In Process Unspecified. EDMS 12:50 Inserted saline lock: 20 gauge in left antecubital area, using aseptic technique. iw 12:54 Triage completed. aj1 13:00 EKG done, by news gathering technician. reviewed by Morgan Vigil MD. at1 13:03 No provider procedures requiring assistance completed. aj1 13:03 Patient has correct armband on for positive identification. Bed in low position. Call aj1 light in reach. Side rails up X2. Adult w/ patient. environmental monitoring specialist on. Pulse ox on. NIBP on. 13:13 Chest Single View XRAY In Process Unspecified. EDMS 13:24 T\T\S collected, blood band applied to patient. iw 13:50 Report given to Kev Ball RN. aj1 14:25 Assisted provider with central line placement. Set up central line tray. Triple lumen ph line placed in right femoral. Line placed by Morgan Vigil MD Placement verified by blood return, Dressed with 4X4s, Tegaderm, Patient tolerated well. emergent procedure, no consent obtained Before procedure, did Practitioner(s) obtain informed consent? No. Patient \T\ family education about procedure, CLABSI prevention and S/S of infection? No. Time-out/Briefing performed prior to start of procedure? Yes. Was handwashing/sanitizing done immediately prior to procedure? Yes. Was patient positioned to in a way to prevent air embolism? Yes. Was procedure site sterilized? Yes, with Was the site allowed to dry? Yes. Was local anesthetic and/or sedation utilized? No. During the procedure, did the Practitioner(s) maintain a sterile field? Yes. Were unused ports clamped during insertion? Yes. Was a 2nd qualified MD obtained after 3 unsuccessful insertion attempts? No. Was blood aspirated from each lumen? Yes. After the procedure, did the Practitioner(s) clean the site and apply a sterile dressing? Yes. 14:38 Primary Nurse role handed off by Rivka Lyons RN iw 14:38 Mari Ball RN is Primary Nurse. iw 14:40 Straight cath inserted, using sterile technique, 16 Fr. 26 Fr. Returned clear yellow ph urine. Patient tolerated well. 14:42 Repeat EKG was done. 3 15:23 Ivon Mckeon MD is Hospitalizing Provider. rn 19:00 Report received from Mari Ball RN. lp1 20:55 Patient transferred, IV remains in place. lp1 Administered Medications: 12:48 Drug: NS 0.9% 500 ml Route: IV; Rate: bolus; Site: left antecubital; aj1 14:15 Follow up: Response: No adverse reaction; IV Status: Completed infusion; IV Intake: ph 500ml 14:20 Drug: Levophed (4 mg/250 mL D5W 4 mcg/min {Note: initiated at 5 mg/min .} Route: IV; ph Rate: calculated rate; Site: right femoral; 19:36 Follow up: Response: No adverse reaction; IV Status: Infusion continued upon transfer ph 14:40 Drug: NS 0.9% 500 ml Route: IV; Rate: bolus; Site: right femoral; ph 15:10 Follow up: Response: No adverse reaction; IV Status: Completed infusion; IV Intake: ph 500ml 14:49 Drug: Cefepime 1 grams Route: IVPB; Rate: 200 ml/hr; Infused Over: 30 mins; Site: right ph femoral; 15:37 Follow up: Response: No adverse reaction; IV Status: Completed infusion ph 15:10 Drug: ProTONIX 40 mg Route: IVP; Site: right femoral; ph 15:48 Follow up: Response: No adverse reaction ph 15:20 Drug: ProTONIX 8 mg/hr Route: IV; Rate: 25 ml/hr; Site: right femoral; ph 19:35 Follow up: IV Status: Infusion continued upon transfer ph 17:50 Drug: vancoMYCIN 1 grams Route: IVPB; Infused Over: 2 hrs; Site: left antecubital; ph 20:11 Follow up: Response: No adverse reaction; IV Status: Completed infusion jd3 19:30 Drug: fentaNYL (PF) 25 mcg {Note: RASS 1.} Route: IVP; Site: right femoral; lp1 20:30 Follow up: Response: No adverse reaction; RASS: Alert and Calm (0) lp1 Medication: 15:15 Blood products: PRBCs X 1 unit given. ph Point of Care Testing: Blood Glucose: 15:06 Blood Glucose: 196 mg/dL; iw Ranges: Intake: 14:15 IV: 500ml; Total: 500ml. ph 15:10 IV: 500ml; Total: 1000ml. ph Outcome: 15:26 Decision to Hospitalize by Provider. rn 18:28 ER care complete, transfer ordered by MD. rn 19:42 critical lp1 19:42 Instructed on the need for transfer. 21:[address] [facility], Transfer form lp1 completed. X-rays sent w/ patient. 21:00 Patient left the ED. lp1 Signatures: Dispatcher [employer] EDMS Rivka Lyons RN RN aj1 Jemiam Romero RN RN sv Williams, Irene, RN RN iw Nieto, Roman, MD MD rn Pena, Laura, RN RN lp1 Juliana Jackson, digital computer systems analyst EKG Tat1 Mari Ball ph D, RN [employer]ies, Jonathon RN RN Xochitl Costa 3 Corrections: (The following items were deleted from the chart) 12:54 12:49 Presenting complaint: states: He has been feeling weak for the past 3 days, aj1 but he thought it was because of his dialysis. 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 Reports that patient has had a cough for the past 3 days, denies fever aj1 12:54 12:49 Transition of care: patient was not received from another setting of care. aj1 [facility] 12:58 12:20 BP 93 / 56; Pulse 84bpm; Resp 20bpm; Pulse Ox 97% Nasal Cannula; [place] [id number] 13:01 12:55 Reassessment: Patient transported to [place] accompanied by me aj1 [facility] 13: 12:59 Allergies: Aspirin; 1 [facility] 13:21 Allergies: Aspirin [Inactive]; aj1 aj1 13:26 12:55 Care prior to arrival: None. aj1 aj1 14:20 13:47 Reassessment: Patient is having multifocal PVCs, and had a 4 second run of aj1 V-Tach. Dr. Vigil at bedside, discussing POC with patient's family. aj1 14:21 13:27 Reassessment: Patient is having multifocal PVCs, and had a 4 second run of aj1 V-Tach. Dr. Vigil at bedside, discussing POC with patient's family. aj1 15:51 15:10 Reassessment: Spo2 noted to have decreased, periods of apnea noted, heart rate ph also noted to have dropped into 30s, ERP notified and at bedside, family brought to room from [facility] ph 16:00 15:10 Reassessment: Spo2 noted to have decreased, periods of apnea noted, heart rate ph also noted to have dropped into 30s, pt also no longer responsive to painful stimuli, ERP notified and at bedside, family brought to room from [facility] ph 20:57 19:46 See Transfusion Record for further vitals; lp1 lp1
--- NOTE | 2019-05-25 15:28 | EDPHYS ---
Physician Documentation [facility] Name: Blaise Quarles Age: 78 yrs Sex: Male : 1940 Arrival Date: 05/25/2019 Time: 12:20 Bed 4 Private MD: ED Physician Morgan Vigil HPI: 05/25 15:11 This 78 yrs old Male presents to ER via EMS with complaints of Altered Mental rn Status. 15:11 The patient presents with decreased mental status, decreased responsiveness. Onset: The rn symptoms/episode began/occurred 2 day(s) ago. Possible causes: unknown. Current symptoms: In the emergency department the patient's symptoms are unchanged from the initial presentation. The patient has not experienced similar symptoms in the past. Family reports 2-3 days of AMS, not improving, seems worse today, no trauma, increased weakness and decreased responsiveness. Admitted to [facility] for a prolonged period of time for GI bleed, then admitted this past week to [facility] for GI bleed. states unable to hold up head and drooling.. Historical: - Allergies: 13:22 No Known Allergies; aj1 - Home Meds: 13:21 furosemide 80 mg Oral tab once daily [Active]; isosorbide mononitrate 60 mg Oral Tb24 1 aj1 tab once daily [Active]; hydralazine 50 mg Oral tab 1 tab 2 times per day [Active]; aspirin 81 mg Oral chew 1 tab once daily [Active]; amlodipine 10 mg tab 1 tab once daily [Active]; atorvastatin 10 mg Oral tab 1 tab once daily [Active]; nitroglycerin 0.4 mg SL subl 1 tab every 5 minutes [Active]; Plavix 75 mg Oral tab 1 tab once daily [Active]; pantoprazole 40 mg Oral TbEC 1 tab once daily [Active]; enalapril maleate 10 mg Oral tab 1 tab once daily [Active]; gabapentin 100 mg oral cap 3 caps once daily [Active]; oxycodone-acetaminophen 7.5-325 mg Oral tab 1 tab as needed [Active]; - PMHx: 12:59 Anemia; BLIND; CAD; cardiomegaly; CHF; chronic renal disease; Cirrhosis; Diabetes - aj1 NIDDM; Dialysis; HD- T//SAT; High Cholesterol; Hypertension; Myocardial infarction; pleural effusion; pulmonary nodule; - Immunization history:: Adult Immunizations up to date. - Social history:: Smoking status: unknown. - Ebola Screening: : Patient denies travel to an Ebola-affected area in the 21 days before illness onset. - Family history:: not pertinent. - Hospitalizations: : Patient was recently seen at. ROS: 15:11 Unable to obtain ROS due to altered mental status, obtunded state. rn Exam: 15:11 Constitutional: Thin male, mumbling but not following commands Head/Face: rn Normocephalic, atraumatic. ENT: dry MM Cardiovascular: Bradycardic, irregular Respiratory: Coarse bilateral breath sounds with mild tachypnea Abdomen/GI: soft, non-tender MS/ Extremity: Diminished peripheral pulses Neuro: Mumbling, not following commands, does repsond to pain but does not localize Vital Signs: 12:20 BP 93 / 56; Pulse 84; Resp 20; Temp 96.9(TE); Pulse Ox 97% on NC; aj1 12:31 BP 82 / 36; Pulse 86; Resp 20; Pulse Ox 98% on NC; aj1 12:45 BP 79 / 36; Pulse 86; Resp 22; Pulse Ox 98% ; aj1 12:50 BP 103 / 48; Pulse 85; Resp 20; Pulse Ox 98% on NC; aj1 13:10 BP 101 / 62; Pulse 77; Resp 21; Pulse Ox 96% on 3 lpm NC; aj1 13:23 BP 96 / 40; Pulse 60; Resp 16; Pulse Ox 96% on 3 lpm NC; aj1 13:42 BP 98 / 40; Pulse 54; Resp 14; Pulse Ox 93% on 3 lpm NC; aj1 13:52 BP 100 / 42; Pulse 60; Resp 16; Pulse Ox 96% on 3 lpm NC; ph 14:15 BP 99 / 35; Pulse 48; Resp 16; Pulse Ox 94% on 4 lpm NC; ph 14:30 BP 88 / 36; Pulse 48; Resp 14; Pulse Ox 94% on 4 lpm NC; ph 14:45 BP 93 / 31; Pulse 46; Resp 14; Pulse Ox 94% on 5 lpm NC; ph 14:54 BP 93 / 31; Pulse 44; Resp 10; Pulse Ox 95% on 5 lpm NC; ph 15:00 BP 90 / 34; Pulse 36; Resp 11; Pulse Ox 92% on 5 lpm NC; ph 15:15 BP 89 / 36; Pulse 52; Resp 14; Temp 96.2; Pulse Ox 92% on 5 lpm NC; ph 15:30 BP 94 / 42; Pulse 52; Resp 12; Pulse Ox 90% on 5 lpm NC; ph 15:44 BP 91 / 35; Pulse 49; Resp 18; Temp 94.9(TE); Pulse Ox 90% on 5 lpm NC; ph 16:00 BP 91 / 36; Pulse 55; Resp 18; Pulse Ox 95% on 100% Non-rebreather mask; ph 16:15 BP 104 / 38; Pulse 60; Resp 20; Pulse Ox 98% on 100% Non-rebreather mask; ph 16:33 BP 110 / 43; Pulse 66; Resp 20; Pulse Ox 99% on 100% Non-rebreather mask; ph 17:00 BP 114 / 47; Pulse 66; Resp 14; Pulse Ox 100% on Non-rebreather mask; ph 17:30 BP 108 / 47; Pulse 67; Resp 19; Pulse Ox 95% on Non-rebreather mask; ph 17:52 BP 110 / 48; Pulse 65; Resp 16; Pulse Ox 95% on 100% Non-rebreather mask; ph 18:03 BP 112 / 40; Pulse 67; Resp 20; Temp 96.8(TE); Pulse Ox 96% on 100% Non-rebreather mask;ph 18:29 BP 115 / 40; Pulse 71; Resp 24; Pulse Ox 94% on 15% Non-rebreather mask; sv 18:45 BP 110 / 48; Pulse 65; Resp 16; Pulse Ox 98% on 100% Non-rebreather mask; ph 19:00 BP 120 / 50; Pulse 74; Resp 20; Temp 97.4; Pulse Ox 98% on 100% Non-rebreather mask; ph 19:15 BP 123 / 51; Pulse 77; Resp 16; Pulse Ox 99% on 100% Non-rebreather mask; ph 19:34 BP 108 / 42; Pulse 79; Resp 20; Pulse Ox 97% on 100% Non-rebreather mask; ph 19:46 Weight 54.43 kg; lp1 20:45 BP 133 / 54; Pulse 80; Resp 20; Temp 97.2; Pulse Ox 98% on 15% Non-rebreather mask; lp1 19:46 See Transfusion Record for further vitals lp1 Jessica Coma Score: 15:11 Eye Response: to pain(2). Verbal Response: incomprehensible(2). Motor Response: rn withdraws from pain(4). Total: 8. Procedures: 14:12 Central Line: the site was prepped with Betadine, in sterile fashion, a triple lumen rn catheter was inserted, in the right in 1 attempts. placement was verified, by blood return, the site was dressed with using sterile technique, the patient tolerated the procedure, well. MDM: 12:22 Patient medically screened. rn 12:57 ED course: Dr. Marium olivo snot see any acute changes in CT brain, does see interval rn development of infarct in temporal lobe but states has chronic and maybe some subacute changes, recommends MRI brain without contrast. . 13:19 ED course: Pt with hemoglobin of 4.6, family states was [place] ago rn with GI bleed and told had ulcers, given blood transfusion. . 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 Family taking very long time deciding code status, finally state DNR, but not sure about intubation. Anticipate worsening breathing status after the volume of NS/blood. ABG shows respiratory compensation at this point, but not sure how much longer can compensate spontaneously. . 14:20 ED course: Pt not alert enough for bipap, if stabilizes will attempt MRI, but not rn stable enough at this point. . 14:25 ED course: Admitted to Dr. Zamarripa, ICU, for ESRD, subacute stroke, sepsis, and possible rn GI bleed. . 14:25 Differential Diagnosis: CVA, electrolyte abnormality, hypoglycemia, intracranial bleed, rn overdose, pneumonia, seizure, sepsis, UTI, volume depletion. Data reviewed: vital signs, nurses notes. ED course: Family just now agreed, confirmed DNR/DNI. Ok with fluid and blood resuscitation. . 14:36 ED course: Dr. Zamarripa consulted Dr. Nunn, who states will not see patient due to hx rn of gastric varices, and he does not perform banding. Expressed my concern that patient is unstable, told to transfer the patient. . 14:41 ED course: Consulted with Dr. Nunn \T\ [id number] Zamarripa's report of his rn wishes, he states cannot perform banding procedure or take care of patient because of h of cirrhosis and possible gastric/esophageal varices and that he is too unstable for procedure anyway. Requests transfer. . 15:11 Counseling: I had a detailed discussion with the patient and/or guardian regarding: the rn historical points, exam findings, and any diagnostic results supporting the discharge/admit diagnosis, lab results, radiology results, the need for further work-up and treatment in the hospital. Response to treatment: the patient's symptoms have worsened after treatment, and as a result, I will admit patient. ED course: Pt became more unresponsive in middle of attempted transfer to [facility], now agonal breathing, unresponsive to painful stimuli, canceled transfer and contacted Dr. zamarripa to admit here, too unstable for transfer and agonal breathing, continues to reyna down despite levophed. Updated family, anticipate worsening clinical picture with impending cardiorespiratory arrest given DNR/DNI status. Hospice being consulted by Dr. Zamarripa. . 16:17 ED course: Patient with agonal shallow respirations, coarse breath sounds bilaterally rn liekly from volume, increasing need for levophed as well as supplemental oxygen. Awaiting orders for admission from Dr. Zamarripa. . 17:44 ED course: Pt with improvement of mental status, improvement of vitals, now talking and rn following commands. New family present and after re-evaluation, they requests transfer to [facility] as initially planned. Getting blood transfusion and pressor. Actually conversing and following commands better than even initial presentation. They are upset about the families decision to make DNR, and they do not agree with their decision, this is granddaughter, and is pleading with them to reconsider. Explained to her their decision and the type of condition he was in at the time, re-assessed and at this moment seems stable for transfer. . 18:23 ED course: Now accepted for transfer to [facility]. Family grateful and happy with clinical rn improvement. Awaiting administrative approval from [facility] and will transfer via [facility].. 05/25 12:39 Order name: Urine Culture rn 05/25 12:39 Order name: Basic Metabolic Panel; Complete Time: 13:54 rn 05/25 12:39 Order name: Blood Culture Adult (2) rn 05/25 12:39 Order name: CBC with Diff; Complete Time: 14:39 rn 05/25 12:39 Order name: Lactate; Complete Time: 13:54 rn 05/25 12:39 Order name: LFT's; Complete Time: 13:54 rn 05/25 12:39 Order name: Lipase; Complete Time: 13:54 rn 05/25 12:39 Order name: Procalcitonin; Complete Time: 13:54 rn 05/25 12:39 Order name: Protime (+inr); Complete Time: 13:23 rn 05/25 12:39 Order name: Ptt, Activated; Complete Time: 13:23 rn 05/25 12:39 Order name: Troponin (emerg Dept Use Only); Complete Time: 13:54 rn 05/25 12:39 Order name: Urine Microscopic Only; Complete Time: 16:23 rn 05/25 12:39 Order name: Flu; Complete Time: 13:54 rn 05/25 12:39 Order name: N-Terminal Pro-brain Natriuretic Peptide; Complete Time: 13:54 rn 05/25 12:32 Order name: CT Stroke Brain w/o Contrast; Complete Time: 13:23 05/25 12:39 Order name: Chest Single View XRAY; Complete Time: 13:54 rn 05/25 12:39 Order name: Type And Screen 05/25 13:24 Order name: Bb Add On 05/25 14:14 Order name: ABG; Complete Time: 14:34 05/25 14:19 Order name: Packed RBC Leukored EDMD 05/25 14:37 Order name: Manual Differential; Complete Time: 14:39 EDMD 05/25 15:06 Order name: Urine Dipstick--Ancillary (enter results); Complete Time: 16:23 05/25 16:23 Order name: Lactate Sepsis 2 HR Follow-up; Complete Time: 17:22 EDMD 05/25 17:55 Order name: Glucose, Ancillary Testing; Complete Time: 18:15 EDMD 05/25 12:39 Order name: Accucheck; Complete Time: 13:26 rn 05/25 12:39 Order name: Cardiac monitoring; Complete Time: 13:05 rn 05/25 12:39 Order name: EKG - Nurse/Tech; Complete Time: 13:05 rn 05/25 12:39 Order name: IV Saline Lock - Large Bore; Complete Time: 13:06 rn 05/25 12:39 Order name: Labs collected and sent; Complete Time: 13:06 rn 05/25 12:39 Order name: O2 Per Protocol; Complete Time: 13:06 rn 05/25 12:39 Order name: O2 Sat Monitoring; Complete Time: 13:06 rn 05/25 12:39 Order name: Urine Dipstick-Ancillary (obtain specimen); Complete Time: 15:37 rn 05/25 15:36 Order name: Labs - recollect needed; Complete Time: 15:47 bd 05/25 17:30 Order name: EKG Electrocardiogram; Complete Time: 18:05 EDMS 05/25 17:30 Order name: EKG Electrocardiogram; Complete Time: 18:05 EDMS Administered Medications: 12:48 Drug: NS 0.9% 500 ml Route: IV; Rate: bolus; Site: left antecubital; aj1 14:15 Follow up: Response: No adverse reaction; IV Status: Completed infusion; IV Intake: ph 500ml 14:20 Drug: Levophed (4 mg/250 mL D5W 4 mcg/min {Note: initiated at 5 mg/min .} Route: IV; ph Rate: calculated rate; Site: right femoral; 19:36 Follow up: Response: No adverse reaction; IV Status: Infusion continued upon transfer ph 14:40 Drug: NS 0.9% 500 ml Route: IV; Rate: bolus; Site: right femoral; ph 15:10 Follow up: Response: No adverse reaction; IV Status: Completed infusion; IV Intake: ph 500ml 14:49 Drug: Cefepime 1 grams Route: IVPB; Rate: 200 ml/hr; Infused Over: 30 mins; Site: right ph femoral; 15:37 Follow up: Response: No adverse reaction; IV Status: Completed infusion ph 15:10 Drug: ProTONIX 40 mg Route: IVP; Site: right femoral; ph 15:48 Follow up: Response: No adverse reaction ph 15:20 Drug: ProTONIX 8 mg/hr Route: IV; Rate: 25 ml/hr; Site: right femoral; ph 19:35 Follow up: IV Status: Infusion continued upon transfer ph 17:50 Drug: vancoMYCIN 1 grams Route: IVPB; Infused Over: 2 hrs; Site: left antecubital; ph 20:11 Follow up: Response: No adverse reaction; IV Status: Completed infusion jd3 19:30 Drug: fentaNYL (PF) 25 mcg {Note: RASS 1.} Route: IVP; Site: right femoral; lp1 20:30 Follow up: Response: No adverse reaction; RASS: Alert and Calm (0) lp1 Point of Care Testing: Blood Glucose: 15:06 Blood Glucose: 196 mg/dL; iw Ranges: Critical Glucose Levels:Adult <50 mg/dl or >400 mg/dl <40 mg/dl or >180 mg/dl Disposition: 15:11 Critical Care:. rn Disposition: 05/25/19 18:28 Transfer ordered to [facility]. Diagnosis are End stage renal disease, Altered mental status, unspecified, Sepsis, unspecified organism, Subacute left temporal and occipital infarct, Acidosis. - Reason for transfer: Higher level of care. - Accepting physician is . - Condition is Fair. - Problem is new. - Symptoms have improved. Critical care time excluding procedures: 15:11 Critical care time: Bedside Care: 35 minutes, Consultation: 5 minutes, Family rn Intervention: 20 minutes. Total time: 60 minutes Signatures: Dispatcher [employer] EDMS Ronna Byrd Angela RN RN aj1 Morgan Vigil MD MD rn Pena, Laura RN RN lp1 Hayden Sawyer PA PA [id number] Mari Ball RN RN Peewee, Matt RN jd3 Corrections: (The following items were deleted from the chart) 12:47 12:42 Head Brain Wo Cont+CT.RAD.BRZ ordered. EDMD EDMD 13:22 12:59 Allergies: Aspirin; aj1 aj1 13:22 13:21 Allergies: Aspirin [Inactive]; aj1 aj1 15:26 15:26 Hospitalization Ordered by Ivon Zamarripa MD for Inpatient Admission. Preliminary rn diagnosis is Altered mental status, unspecified; Subacute ischemic Stroke; Gastrointestinal bleed; Hypotension, unspecified; End stage renal disease. Bed requested for Intensive Care Unit. Status is Inpatient Admission. Condition is Serious. Problem is new. Symptoms have worsened. UTI on Admission? No. rn 18:26 15:26 05/25/2019 15:26 Hospitalization Ordered by Ivon Zamarripa MD for Inpatient product development intern. Preliminary diagnosis is Altered mental status, unspecified; Subacute ischemic Stroke; Gastrointestinal bleed; Hypotension, unspecified; End stage renal disease; Sepsis, unspecified organism. Bed requested for Intensive Care Unit. Status is Inpatient Admission. Condition is Serious. Problem is new. Symptoms have worsened. UTI on Admission? No. rn 21:00 18:28 05/25/2019 18:28 Transfer ordered to [facility]. Diagnosis is End stage renal lp1 disease; Altered mental status, unspecified; Sepsis, unspecified organism; Subacute left temporal and occipital infarct; Acidosis. Reason for transfer: Higher level of care. Accepting physician is . Condition is Fair. Problem is new. Symptoms have improved. rn
[2019-05-25] MEDS ORDERED: NOREPINEPHRINE 4 MG in D5W 250 ML IV PRN (17:36)
[2019-05-25] MEDS ORDERED: VANCOMYCIN/NS 1 gm 1 GM/250 ML BAG IV ONE (18:00)
[2019-05-25] MEDS ORDERED: FENTANYL CITR 100 MCG/2 ML ONE (19:19)
--- NOTE | 2019-05-25 21:51 | CON ---
Reason For Consultation: Severe anemia. History Of Presenting Illness: Patient is a 78-year-old gentleman, who has been noncompliant with ca re, history of end-stage renal disease, cirrhosis, admitted, and history of encephalopathy, who has h ad multiple admissions to [facility] and has signed out against medical advice. Also admitt ed to [facility] for prolonged fear for GI bleed. Was brought to the ER due to inability to hold his secre tions, found to be severely hypotensive, tachypneic, also anemic. Has report of some dark stool as w ell. Allergies: NO KNOWN DRUG ALLERGIES. Home Medications: As in the chart. Review of Systems: Unable to obtain. Past Medical History: In addition to above, also has coronary artery disease, CHF, diabetes, dyslipi demia, history of [place], pleural effusion, and pulmonary nodule. Social History: Unable to obtain. Review of Systems: Unable to obtain. Family History: Unable to obtain. Physical Examination: Vitals: Reviewed. On presentation, blood pressure 93/56, pulse 84, respiratory rate 20. General: Currently, when I saw him, his breathing was quite agonal. Laboratory Data: Reviewed. Hemoglobin 4.6, hematocrit 13.6, platelets of 72. He is acidotic, pH of 7.2. Lactic acid is 8.3 has increased to 13.8. Impression: 78-year-old gentleman with multiple comorbidities and end-stage renal disease, on dialys is; cirrhosis; anemia; history of gastrointestinal bleed, now presents with hypotension, respiratory failure. Condition very critical. No evidence of active hematemesis. Plan: Dr. Vigil and Dr. Mckeon already had a detailed discussion with the family, and he has already been accepted into hospice. Of note, he was a hospice patient for several times before. I also had a discussion with the family. Given the current situation, hypotension, bradycardia, severe respirat ory compromise, and acidosis, no intervention like endoscopy can be contemplated. He can be supporte d with blood. They already have made him DNR and I agree this is the correct plan of action. I will sign off the case for now. Recall if needed. US/MODL Voice ID: [id number] Report ID: [id number]
[2019-05-26 07:54] VITALS: BP 133/54; TEMP 97.2; O2SAT 98
--- NOTE | 2019-05-26 08:19 | EKG ---
Test Date: 2019-05-25 Test Time: 14:35:28 Accounts Manager: EVARISTO MEASUREMENT RESULTS: Intervals: Rate: 54 [place]: 184 QRSD: 180 QT: 520 QTc: 493 [place]: P: [place]: 184 QRS: -32 T: 129 INTERPRETIVE STATEMENTS: Sinus bradycardia with occasional premature ventricular complexes Left axis deviation Left bundle branch block Abnormal ECG Compared to ECG 05/25/2019 12:45:31 Ventricular premature complex(es) now present Left-axis deviation now present Sinus rhythm no longer present Sinus arrhythmia no longer present Electronically Signed On 05-26-19 08:16:17 LUMBER LOADER by Brandon Pérez
--- NOTE | 2019-05-26 08:20 | EKG ---
Test Date: 2019-05-25 Test Time: 12:45:31 Overcoiler: RON MEASUREMENT RESULTS: Intervals: Rate: 86 AR: 166 QRSD: 170 QT: 436 QTc: 521 [place]: P: 16 AR: 166 QRS: -29 T: 134 INTERPRETIVE STATEMENTS: Normal sinus rhythm with sinus arrhythmia Possible Left atrial enlargement Left bundle branch block Abnormal ECG Compared to ECG 04/16/2019 21:27:18 Left bundle-branch block now present Sinus bradycardia no longer present First degree AV block no longer present Left-axis deviation no longer present Myocardial infarct finding no longer present ST (T wave) deviation no longer present Possible ischemia no longer present Electronically Signed On 05-26-19 08:16:18 FLAME BRAZING MACHINE OPERATOR by Brandon Pérez
== END 2019-05-25 21:00 | disposition short-term general hospital (02) ==
LOC: ER 12:12
PROC: 30233N1 Transfusion of Nonautologous Red Blood Cells into Peripheral Vein, Percutaneous Approach (ICD-10-PCS; principal; 2019-05-25)
DX: A41.9 Sepsis, unspecified organism (principal); I12.0 Hypertensive chronic kidney disease with stage 5 chronic kidney disease or end stage renal disease; I63.9 Cerebral infarction, unspecified; E11.22 Type 2 diabetes mellitus with diabetic chronic kidney disease; N18.6 End stage renal disease; K74.60 Unspecified cirrhosis of liver; I95.9 Hypotension, unspecified; Z99.2 Dependence on renal dialysis; Z79.01 Long term (current) use of anticoagulants; Z79.82 Long term (current) use of aspirin
CPT/HCPCS: 36556; 36430 ×2; 96365; 96367; 96361; 96368; 93005 ×2; 87040 ×2; 87088; 85025; 80048; 36415; 86900; 86850; 85610; 86901; 82947; 80076; 83605 ×2; 85730; 84484; 83690; 84145; 83880; 87804 ×2; 70450; 71045; 82805; 51702; 96375; 99291; 99292; 96366; C9113 ×2; J3010; J3370; J0692; P9016 ×2; J7060; J7030 ×2; J7040 ×4; 81003; 81015; 87086